=== PATIENT | female | born 1980 | race Hispanic/Latino ===

== ENCOUNTER 2019-09-30 05:18 | Emergency (ER) | payer SELFPAY ==
--- OUTSIDE RECORDS SUMMARY | 2019-09-30 05:21 | XMS REPORT | Summary of Care ---
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 Primary Care Provider Reason for Visit Reason Comments CONTROL Encounter Details Date Type Department Care Team Description 03/04/2019 Nurse Visit [facility]- Osiel Ann, FOOD PRODUCTION WORKER [address] [place] [address] Depo-Provera [place] Visit, [facility] Nurse contraceptive status [address] [facility] (Primary Dx) [place] [address] Allergies No Known Allergiesdocumented as of this encounter (statuses as of 03/04/2019) Medications Medication Sig Dispensed Refills Start Date End Date Status lisinopril 10 mg tablet Take 10 mg by 0 Active mouth daily. Hospital, Clinic, or Other Ordered Dose Route Frequency Start Date End Date Status Facility Administered Medication medroxyPROGESTERone 150 mg IM [id number] 10/16/2018 09/16/2019 Active (DEPO-PROVERA) injection 150 mgIndications: Depo-Provera contraceptive status documented as of this encounter (statuses as of 03/04/2019) Active Problems Problem Noted Date Well woman exam 10/15/2018 Abscess of Bartholin's gland 10/15/2018 Depo-Provera contraceptive status 04/17/2016 Essential hypertension 01/02/2013 Overview: ICD10 Diagnosis Term Box Covering Machine Operator Utility documented as of this encounter (statuses as of 03/04/2019) Resolved Problems Problem Noted Date Resolved Date Encounter for IUD removal 04/17/2016 10/15/2017 Screening for STDs (sexually transmitted diseases) 04/17/2016 10/15/2017 Routine gynecological examination 04/17/2016 10/15/2017 Chlamydia trachomatis infection of lower genitourinary sites 10/13/201310/15 Encounter for insertion of intrauterine contraceptive device 10/09/201310/15 Overview: Exp. 10/10/2023 Encounter for routine gynecological examination 06/26/2013 10/15/2017 Overview: ICD10 Diagnosis Term Box Covering Machine Operator Utility Other general counseling and advice for contraceptive 06/26/2013 10/09/2013 management Allergic rhinitis 06/26/2013 10/09/2013 Overview: ICD10 Diagnosis Term Box Covering Machine Operator Utility Sinus pressure 06/26/2013 10/09/2013 Proteinuria 05/29/2013 06/26/2013 Suprapubic pressure 05/29/2013 06/26/2013 Anemia of mother in , condition 05/29/2013 10/09/2013 Pelvic cramping 05/22/2013 06/26/2013 Normal delivery 05/15/2013 06/26/2013 Severe pre-eclampsia, antepartum 05/15/2013 05/29/2013 High-risk supervision 05/02/2013 05/22/2013 Other known or suspected abnormality, not elsewhere 02/12/20132012 classified, affecting management of mother, antepartum condition or complication Overview: intracranial cyst Headache 01/02/2013 04/30/2013 Overview: ICD10 Diagnosis Term Box Covering Machine Operator Utility Trichomonal vulvovaginitis 12/12/2012 04/30/2013 Overview: Treated patient and partner Immune to rubella 11/27/2012 04/30/2013 Immune to varicella 11/27/2012 04/30/2013 spontaneous labor with delivery 11/27/2012 05/29/2013 Overview: PTL starting at 20 weeks, bedrest, received IV tocolytics. Delivered at 28 weeks after PROM. Family history of congenital anomalies 11/27/2012 05/22/2013 Overview: Son has hand deformity. Genetics and detailed US Glucose tolerance test abnormal 11/03/2012 04/30/2013 Overview: 1 hr- 151, 3 hr- gtt normal. Repeat at 28 weeks Chlamydia trachomatis infection of lower genitourinary sites 11/03/201204/30 Overview: 11/27/2012 and 12/12/2012- COURTNEY-negative History of cervical dysplasia 10/31/2012 10/31/2012 Overview: Entered in error ICD10 Diagnosis Term Box Covering Machine Operator Utility Nausea & vomiting 10/31/2012 04/30/2013 Overview: May take otc vitamin b 6 50 mg bid Multiparity 10/01/2007 09/25/2012 anemia 10/01/2007 09/25/2012 Overview: ICD10 Diagnosis Term Box Covering Machine Operator Utility Normal delivery 09/30/2007 09/25/2012 Proteinuria 09/29/2007 09/25/2012 Anemia of mother, with delivery, with complication 11/01/2006 Overview: asymptomatic ICD10 Diagnosis Term Box Covering Machine Operator Utility First degree perineal laceration during delivery 10/31/2006 09/25/2012 Overview: ICD10 Diagnosis Term Box Covering Machine Operator Utility OTHER DIAGNOSIS - PLEASE ANNOTATE. 10/30/2006 10/31/2006 Overview: labor Dehydration 05/11/2006 10/30/2006 documented as of this encounter (statuses as of 03/04/2019) Immunizations Name Administration Dates Next Due Influenza Virus Vaccine 03/26/2013 Rubella 03/21/2007 Td 07/08/1998 Tdap 06/26/2013, 04/21/2013 (Deferred: Medical Deferment Parent Refused - Pt left clinic without vaccine) documented as of this encounter Social History Tobacco Use Types Packs/Day Years Used Date Never Smoker Smokeless Tobacco: Never Used Alcohol Use Drinks/Week oz/Week Comments No 0 Standard drinks or equivalent 0.0 Sex Assigned at Date Recorded Not on file Job Start Date Occupation Industry Not on file Not on file Not on file Travel History Travel Start Travel End No recent travel history available. documented as of this encounter Last Filed Vital Signs Vital Sign Reading Time Taken Comments Blood Pressure 133/82 03/04/2019 8:35 AM CDT Pulse 69 03/04/2019 8:35 AM CDT Temperature 36.2 C (97.1 F) 03/04/2019 8:35 AM CDT Respiratory Rate 16 03/04/2019 8:35 AM CDT Oxygen Saturation - - Inhaled Oxygen Concentration - - Weight 58.3 kg (128 lb 8 oz) 03/04/2019 8:35 AM CDT Height 165.1 cm (5' 5") 03/04/2019 8:35 AM CDT Body Mass Index 21.38 03/04/2019 8:35 AM CDT documented in this encounter Patient Instructions Patient InstructionsAdán De Guzman RN - 03/04/2019 9:00 AM CDT Medroxyprogesterone injection [Contraceptive] Brand Names: Depo-Provera, Depo-subQ Provera 104 Qu es aliza medicamento? Las inyecciones anticonceptivas de MEDROXIPROGESTERONA previenen el embarazo. Las inyecciones le brindarn control de la natalidad damon 3 meses. La Depo- subQ Provera 104 se utiliza tambin para tratar el dolor relacionado con endometriosis. Circular Clerk matteo utilizar aliza medicamento? Depo-Provera Contraceptive inyectable se administra en un msculo. Depo-subQ Provera 104 inyectablese administra por va subcutnea. Estas inyecciones las administra un profesional de la isatu. No debe estar embarazada antes de recibir herrera inyeccin. Esta inyeccin generalmente se aplica durantelos primeros 5 stallings del inicio de un periodo menstrual o 6 semanas despus de misha tenido un beb. Hable con kaufman pediatra para informarse acerca del uso de aliza medicamento en ni os. Puede requerir atencin especial. Estas inyecciones quiñones sido usadas en ni as que quiñones empezado a tener perodos menstruales. Qu efectos secundarios puedo tener al utilizar aliza medicamento? Efectos secundarios que debe informar a kaufman mdico o a kaufman profesional de la isatu driver pronto mercy sea posible: reacciones alrgicas mercy erupcin cutnea, picazn o urticarias, hinchazn de la yordan, labios o lengua secreciones o sensibilidad de las mamas problemas respiratorios cambios en la visin depresin sensacin de desmayos o mareos, cadas fiebre dolor en el abdomen, pecho, entrepierna o piernas problemas de coordinacin, del habla, al caminar cansancio o debilidad inusual color amarillento de los ojos o la piel Efectos secundarios que, por lo general, no requieren atencin mdica (debe informarlos a mdico o a kaufman profesional de la isatu si persisten o si son molestos): cne retencin de lquidos e hinchazn dolor de violeta perodos menstruales irregulares, manchando o ausencia de perodos menstruales dolor, picazn o reaccin cutnea temporal en el lugar de la inyeccin aumento de peso Qu puede interactuar con aliza medicamento? No tome esta medicina con ninguno de los siguientes medicamentos: bosentano Esta medicina tambin puede interactuar con los siguientes medicamentos: aminoglutethimide antibiticos o medicamentos para infecciones, especialmente rifampicina, rifabutina, rifapentinay griseofulvina aprepitant barbitricos, tales mercy el fenobarbital o primidona bexaroteno carbamazepina medicamentos para convulsiones, tales mercy etotona, felbamato, oxcarbazepina, fenitona, topiramato modafinilo hierba de [place] Qu sucede si me olvido de herrera dosis? Trate de no olvidar ninguna dosis. Para mantener el control de natalidad necesitar herrera inyeccin cada 3 meses. Si no puede asistir a herrera bean, comun quese con kaufman profesional de la isatu para que charlene cambie. Si espera ms de 13 semanas entre las inyecciones anticonceptivos de Depo-Provera o msde 14 semanas entre inyecciones anticonceptivos de Depo-subQ Provera 104, puede quedarse embarazada.Si no puede asistir a kaufman bean utilice otro mtodo anticonceptivo. Andriy vez deba hacerse herrera prueba de embarazo antes de recibir otra inyeccin. Dnde matteo guardar mi medicina? No se aplica en aliza leonard. Un profesional de la isatu le administrar las inyecciones. Qu le matteo informar a mi profesional de la isatu antes de wendy laiza medicamento? Necesita saber si usted presenta alguno de los siguientes problemas o situaciones: si consume alcohol con frecuencia asma enfermedad vascular o antecedente de cogulos sanguneos en los pulmones o las piernas enfermedad de los huesos, mercy osteoporosis cncer de mama diabetes trastornos de la alimentacin (anorexia nerviosa o bulimia) aimee presin sangunea infecciones por VIH o SIDA enfermedad renal enfermedad heptica depresin mental migraa convulsiones derrame cerebral fuma tabaco sangrado vaginal herrera reaccin alrgica o inusual a la medroxiprogesterona, otras hormonas, otros medicamentos, alimentos, colorantes o conservantes si est embarazada o buscando quedar embarazada si est amamantando a un beb A qu matteo estar atento al usar aliza medicamento? Aliza medicamento no la protege de la infeccin por VIH (SIDA) ni de otras enfermedades de transmisin sexual. El uso de aliza producto puede provocar herrera prdida de calcio de corrine huesos. La prdida de calcio puede provocar huesos dbiles (osteoporosis). Slo use aliza producto damon ms de 2 aos si otras formas de anticonceptivos no son apropiados para usted. Mientre ms tiempo use aliza producto para el control de la natalidad, tendr ms riesgo de padecer de huesos dbiles. Consulte a kaufman profesional de la isatu acerca de wood pattern maker puede mantener los huesos jo. Puede experimentar un cambio en el patrn de sangrado o periodos irregulares. Muchas mujeres lacy de tener periodos mientras usan aliza medicamento. Si recibe corrine inyecciones a tiempo, la posibilidad de quedarse embarazada es muy baja. Si ernesto que podr estar embarazada, visite a kaufman profesional de la isatu lo antes posible. Si desea quedar embarazada dentro del prximo ao, informe a kaufman profesional de la isatu. El efectode aliza medicamento puede perdurar damon mucho tiempo despus de recibir kaufman ltima inyeccin. [id number] [employer] [place] [address]. Todos los derechos reservados. Esta informacin no pretende sustituir la atencin mdica profesional. Slo kaufman mdico puede diagnosticar y tratar un problema de isatu. documented in this encounter Progress Notes Adán De Guzman RN - 03/04/2019 9:00 AM CDT38 year old female has been identified by and name. Verbal consent has been obtained by patientto have an injection of Depo Provera, as ordered by the provider. Date of last Depo Provera injection: 12/10/2018 Last WWE: 10/15/2018 Encounter Diagnosis: v25.49 The site was cleaned with an alcohol swab and given intramuscularly (IM) in the left deltoid. A band aid dressing was then applied to the injection site. The patient tolerated the procedure well , norash, swelling or reaction noted. Advised patient on Calcium intake 500-1200 mg daily. ED warnings given. Patient to return to clinic in 12 weeks for next Depo. Patient verbalized understanding. ADÁN DE GUZMAN RN 03/04/2019 9:17 AM documented in this encounter Plan of Treatment Date Type Specialty Care Team Description 03/12/2019 Office Visit [facility] 2, [facility] Fc Room 03/12/2019 Office Visit [facility] Pgy3 05/27/2019 Nurse Visit [facility] Visit, [facility] Nurse Health Maintenance Due Date Last Done Comments VARICELLA VACCINES (1 of 2 1993 - 13+ 2-dose series) INFLUENZA VACCINE (#1) 2019 03/26/2013 PAP SMEAR 04/17/2019 04/17/2016, 10/24/2012, 09/25/2012, Additional history exists DTaP,Tdap,and Td Vaccines 06/26/2023 06/26/2013, 07/08/1998 (3 - Td) PNEUMOCOCCAL 0-64 YEARS Aged Out No longer eligible COMBINED SERIES based on patient's age to complete this topic documented as of this encounter Results Not on filedocumented in this encounter Visit Diagnoses Diagnosis Depo-Provera contraceptive status - Primary Surveillance of other previously prescribed contraceptive method documented in this encounter Administered Medications Medication Order MAR Action Action Date Dose Rate Site medroxyPROGESTERone Given 03/04/2019 8:40 150 mg Left Deltoid-IM (DEPO-PROVERA) injection 150 AM CDT mg 150 mg, Intramuscular, [id number], 4 doses, First dose on Delores 10/16/18 at 0000, Last dose on Delores 06/25/19 at 0000, Routine Given 12/10/2018 9:14 AM CDT 150 mg Right Deltoid-IM documented in this encounter Insurance Payer Benefit Plan / Subscriber ID Effective Dates Phone Address Type Group [facility] [employer]ANNING [id number] 2018-[employer] [place] [id number] [place] [address] documented as of this encounter Advance Directives Type Date Recorded 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
--- OUTSIDE RECORDS SUMMARY | 2019-09-30 05:21 | XMS REPORT | Summary of Care ---
:1980 Author Organization [facility] Address [address] [place] [address] Care Team Providers Name Role Phone Osiel Ann COREY Primary Care Provider Reason for Visit Reason Comments Abscess Encounter Details Date Type Department Care Team Description 03/12/2019 Office Visit [facility] Naveed Daley MD [address] [place] [address] Groin abscess [facility] Resident (Primary Dx) [facility] [address] [facility], [address] [place] [address] Allergies No Known Allergiesdocumented as of this encounter (statuses as of 03/12/2019) Medications Medication Sig Dispensed Refills Start Date End Date Status lisinopril 10 mg tablet Take 10 mg by 0 Active mouth daily. Hospital, Clinic, or Other Ordered Dose Route Frequency Start Date End Date Status Facility Administered Medication medroxyPROGESTERone 150 mg IM [id number] 10/16/2018 09/16/2019 Active (DEPO-PROVERA) injection 150 mgIndications: Depo-Provera contraceptive status documented as of this encounter (statuses as of 03/12/2019) Active Problems Problem Noted Date Well woman exam 10/15/2018 Abscess of Bartholin's gland 10/15/2018 Depo-Provera contraceptive status 04/17/2016 Essential hypertension 01/02/2013 Overview: ICD10 Diagnosis Term Elevator Runner Utility documented as of this encounter (statuses as of 03/12/2019) Resolved Problems Problem Noted Date Resolved Date Encounter for IUD removal 04/17/2016 10/15/2017 Screening for STDs (sexually transmitted diseases) 04/17/2016 10/15/2017 Routine gynecological examination 04/17/2016 10/15/2017 Chlamydia trachomatis infection of lower genitourinary sites 10/13/201310/15 Encounter for insertion of intrauterine contraceptive device 10/09/201310/15 Overview: Exp. 10/10/2023 Encounter for routine gynecological examination 06/26/2013 10/15/2017 Overview: ICD10 Diagnosis Term Elevator Runner Utility Other general counseling and advice for contraceptive 06/26/2013 10/09/2013 management Allergic rhinitis 06/26/2013 10/09/2013 Overview: ICD10 Diagnosis Term Elevator Runner Utility Sinus pressure 06/26/2013 10/09/2013 Proteinuria 05/29/2013 [...] Headache 01/02/2013 04/30/2013 Overview: ICD10 Diagnosis Term Elevator Runner Utility Trichomonal vulvovaginitis 12/12/2012 04/30/2013 Overview: Treated [...] Overview: Entered in error ICD10 Diagnosis Term Elevator Runner Utility Nausea & vomiting 10/31/2012 04/30/2013 Overview: May take otc vitamin b 6 50 mg bid Multiparity 10/01/2007 09/25/2012 anemia 10/01/2007 09/25/2012 Overview: ICD10 Diagnosis Term Elevator Runner Utility Normal delivery 09/30/2007 09/25/2012 Proteinuria 09/29/2007 09/25/2012 Anemia of mother, with delivery, with complication 11/01/2006 Overview: asymptomatic ICD10 Diagnosis Term Elevator Runner Utility First degree perineal laceration during delivery 10/31/2006 09/25/2012 Overview: ICD10 Diagnosis Term Elevator Runner Utility OTHER DIAGNOSIS - PLEASE ANNOTATE. 10/30/2006 10/31/2006 Overview: labor Dehydration 05/11/2006 10/30/2006 documented as of this encounter (statuses as of 03/12/2019) Immunizations Name Administration Dates Next Due Influenza [...] Sign Reading Time Taken Comments Blood Pressure 102/54 03/12/2019 1:13 PM CDT Pulse 72 03/12/2019 1:13 PM CDT Temperature 36.8 C (98.3 F) 03/12/2019 1:13 PM CDT Respiratory Rate 18 03/12/2019 1:13 PM CDT Oxygen Saturation - - Inhaled Oxygen Concentration - - Weight 58.3 kg (128 lb 8 oz) 03/12/2019 1:13 PM CDT Height 165.1 cm (5' 5") 03/12/2019 1:13 PM CDT Body Mass Index 21.38 03/12/2019 1:13 PM CDT documented in this encounter Progress Notes Krystin Alas MD - 03/12/2019 2:00 PM CDT Chief complaint: Chief Complaint Patient presents with Abscess Lisbet Ma is a 38 year old female who presents with a left upper inner thigh boil. She states she has been seen by other practitioners and was receiving antibiotics for the boil. She reports that after the antibiotics the boil returns. She sometimes reports blood coming from the abscess at times. She states the boil always returns. She denies fevers and chills and has no other complaints. She reports pain from the abscess that comes and goes. She desires the abscess to be drainedat this clinic visit. Histories OB History Para Term AB Living 4 3 2 1 4 SAB TAB Ectopic Multiple Live Births 4 # Outcome Date GA Lbr Erick/2nd Weight Sex Delivery Anes PTL Lv 4 05/15/13 M N SEAN Comments: System Generated. Please review and update details. 3 Term 09/29/07 37w0d 07:00 6 lb 3 oz (2.807 kg) M NORMAL SPONT EPIDURAL SEAN 2 Term 10/31/06 38w0d 06:00 6 lb 8 oz (2.948 kg) M NORMAL SPONT LOCAL SEAN 1 03/23/00 28w0d 24:00 4 lb 5 oz (1.956 kg) M NORMAL SPONT LOCAL SEAN Past Medical History: Diagnosis Date Anemia Chlamydia 2005 Chlamydia 2012 Chlamydia 2013 Cyst (solitary) of breast, right removal Gastritis Unspecified essential hypertension 01/02/2013 Family History Problem Relation Age of Onset High cholesterol Mother Hypertension Mother Neurological Mother Arthritis Father Diabetes Maternal Aunt Diabetes Maternal Grandmother Cancer Paternal Grandmother Cancer Paternal Grandfather defects Son Asthma NoFHx Breast Cancer NoFHx Colon Cancer NoFHx Ovarian Cancer NoFHx Depression NoFHx Uterine Cancer NoFHx Genetic NoFHx Heart NoFHx Mental retardation NoFHx Psychiatry NoFHx Other - see comments NoFHx Osteoporosis NoFHx Family Status Relation Name Status Mo (Not Specified) Fa (Not Specified) MAunt (Not Specified) MGMo (Not Specified) PGMo (Not Specified) PGFa (Not Specified) Son (Not Specified) NoFHx (Not Specified) Past Surgical History: Procedure Laterality Date NON-STRESS TEST 05/11/2013 NON-STRESS TEST 05/12/2013 NON-STRESS TEST 05/13/2013 NON-STRESS TEST 05/14/2013 Social History Socioeconomic History Marital status: Spouse name: Not on file Number of children: Not on file Years of education: Not on file Highest education level: Not on file Occupational History Not on file Social Needs Financial resource strain: Not on file Food insecurity: Worry: Not on file Inability: Not on file Transportation needs: Medical: Not on file Non-medical: Not on file Tobacco Use Smoking status: Never Smoker Smokeless tobacco: Never Used Substance and Sexual Activity Alcohol use: No Alcohol/week: 0.0 oz Drug use: No Sexual activity: Yes Partners: Male control/protection: Injection Comment: last sexual intercourse 10/10/2018 Lifestyle Physical activity: Days per week: Not on file Minutes per session: Not on file Stress: Not on file Relationships Social connections: Talks on phone: Not on file Gets together: Not on file Attends alevism service: Not on file Active member of club or organization: Not on file Attends meetings of clubs or organizations: Not on file Relationship status: Not on file Intimate partner violence: Fear of current or ex partner: Not on file Emotionally abused: Not on file Physically abused: Not on file Forced sexual activity: Not on file Other Topics Concern Service Not Asked Blood Transfusions No Caffeine Concern Not Asked Occupational Exposure Not Asked Hobby Hazards Not Asked Sleep Concern Not Asked Stress Concern Not Asked Weight Concern Not Asked Special Diet Not Asked Back Care Not Asked Exercise Not Asked Bike Helmet Not Asked Seat Belt Not Asked Self-Exams Not Asked Social History Narrative Denies domestic violence or abuse Social History Substance and Sexual Activity Sexual Activity Yes Partners: Male control/protection: Injection Comment: last sexual intercourse 10/10/2018 Labs No new labs Radiology No new radiology. Allergies Lisbet has No Known Allergies. Medications Lisbet has a current medication list which includes the following prescription(s) : lisinopril, and the following Facility-Administered Medications: medroxyprogesterone. Review of Systems Constitutional: Negative for chills, fatigue and fever. Respiratory: Negative for cough and shortness of breath. Cardiovascular: Negative for chest pain and palpitations. Gastrointestinal: Negative for abdominal pain, diarrhea, nausea and vomiting. Genitourinary: Negative for dysuria, frequency, flank pain, vaginal bleeding, vaginal discharge and pelvic pain. Musculoskeletal: Negative for back pain. Skin: 2 cm abscess/boil seen at the left inner upper thigh. Fluctuant was palpated. Tenderness to palpation, appears erythematous Neurological: Negative for dizziness, light-headedness and headaches. BP 102/54 | Pulse 72 | Temp 36.8 C (98.3 F) (Oral) | Resp 18 | Ht 5' 5" (1.651 m) | Wt 128 lb 8 oz (58.3 kg) | LMP 03/01/2019 (Approximate) | BMI 21.38 kg/m Pregravid BMI: Could not be calculated Physical Exam Vitals reviewed. Constitutional: She appears well-developed, well-nourished and well-groomed. Her body habitus is normal. Cardiovascular: Regular rate and rhythm. No murmur auscultated. Pulmonary/Chest: Breath sounds clear to auscultation. Normal inspiratory effort. Abdominal: Abdomen is soft. No mass palpated. No tenderness present. There is no rigidity and no guarding. Neuro/Psychiatric: She has a normal mood and affect. Skin: Lesion (2 cm abscess/boil seen at the left inner upper thigh. Fluctuant was palpated. Tenderness to palpation, appears erythematous) present. Lymphadenopathy: No inguinal adenopathy present. External genitalia: Normal external genitalia appropriate for age. Normal hair distribution. No labial lesion. Urethral meatus: Normal urethral meatus size, location and no lesion. No prolapse present. Normal urethral meatus Vagina:Normal vagina. No lesion inspected. Normal estrogen effect. Normal support. No abnormal vaginal discharge found. Procedure Note Time out performed by myself and identified by Name and 2cm abscess/boil was present in the upper inner thigh Fluctuance was palpated 4cc lidocaine was injected around the site Punch biopsy was used to remove the top layer of epidermis to allow for drainage of the abscess The epidermis was sent to pathology The abscess was then palpated to remove the pus from the area The area was hemostatic after holding pressure The wound is to be irrigated regularly and will heal on its own Bleeding precautions were given to the patient Assessment/Plan Groin abscess (primary encounter diagnosis) Comment: patient had previously received antibiotics that did not resolve the boil The lesions was lanced and pus was drained in clinic Plan: SURGICAL PATHOLOGY EXAM Return to clinic as needed or if abscess returns This visit did not involve counseling and coordination that comprised more than 50% of the visit time. Krystin Alas MD 03/12/2019 documented in this encounter Plan of Treatment Date Type Specialty Care Team Description 05/27/2019 Nurse Visit OB Satellites Visit, [facility] Nurse Name Type Priority Associated Diagnoses Date/Time SURGICAL PATHOLOGY EXAM LAB Routine Groin abscess 03/12/2019 2:34 PM CDT Health Maintenance Due Date Last Done Comments [...] filedocumented in this encounter Visit Diagnoses Diagnosis Groin abscess - Primary Cellulitis and abscess of trunk documented in this encounter Insurance Payer Benefit Plan / Subscriber ID Effective Dates Phone Address Type Group [facility] FAMILY FAMILY PLANNING [id number] 2019-Harjeet DECKER Agency [employer]ANN[employer] ED[employer] 0-100% [id number] [place] [address] documented as of this encounter Advance Directives Type Date Recorded Patient Data Entry Assistant Explanation Advance Directives and Living Will Power of Supervisor Roving Department Name Relationship Healthcare Agent Relationship Communication Sunni Ford Sibling Primary healthcare agent
--- OUTSIDE RECORDS SUMMARY | 2019-09-30 05:21 | XMS REPORT ---
:1980 Author Organization [facility] Address [address] [place] [address] Dr. Cabrales [address] [place] [address] Care Team Providers Name Role Phone Unavailable Unavailable Unavailable Problems This patient has no known problems. Allergies, Adverse Reactions, Alerts This patient has no known allergies or adverse reactions. Medications This patient has no known medications.
--- OUTSIDE RECORDS SUMMARY | 2019-09-30 05:21 | XMS REPORT | Summary of Care ---
:1980 Author Organization [facility] Address [address] [place] [address] Care Team Providers Name Role Phone Osiel Ann COREY Primary Care Provider Reason for Visit Reason Comments Abscess Encounter Details Date Type Department Care Team Description 03/12/2019 Office Visit [facility] Naveed Daley MD [address] [place] [address] Groin abscess [facility] Resident (Primary Dx) [facility] [address] [facility], [address] [place] [address] Allergies No Known Allergiesdocumented as of this encounter (statuses as of 03/12/2019) Medications Medication Sig Dispensed Refills Start Date End Date Status lisinopril 10 mg tablet Take 10 mg by 0 Active mouth daily. Hospital, Clinic, or Other Ordered Dose Route Frequency Start Date End Date Status Facility Administered Medication medroxyPROGESTERone 150 mg IM [id number] 10/16/2018 09/16/2019 Active (DEPO-PROVERA) injection 150 mgIndications: Depo-Provera contraceptive status documented as of this encounter (statuses as of 03/12/2019) Active Problems Problem Noted Date Well woman exam 10/15/2018 Abscess of Bartholin's gland 10/15/2018 Depo-Provera contraceptive status 04/17/2016 Essential hypertension 01/02/2013 Overview: ICD10 Diagnosis Term Sales Recruiting Coordinator Utility documented as of this encounter (statuses [...] examination 06/26/2013 10/15/2017 Overview: ICD10 Diagnosis Term Sales Recruiting Coordinator Utility Other general counseling and advice for contraceptive 06/26/2013 10/09/2013 management Allergic rhinitis 06/26/2013 10/09/2013 Overview: ICD10 Diagnosis Term Sales Recruiting Coordinator Utility Sinus pressure 06/26/2013 10/09/2013 Proteinuria 05/29/2013 [...] Headache 01/02/2013 04/30/2013 Overview: ICD10 Diagnosis Term Sales Recruiting Coordinator Utility Trichomonal vulvovaginitis 12/12/2012 04/30/2013 Overview: Treated [...] Overview: Entered in error ICD10 Diagnosis Term Sales Recruiting Coordinator Utility Nausea & vomiting 10/31/2012 04/30/2013 Overview: May take otc vitamin b 6 50 mg bid Multiparity 10/01/2007 09/25/2012 anemia 10/01/2007 09/25/2012 Overview: ICD10 Diagnosis Term Sales Recruiting Coordinator Utility Normal delivery 09/30/2007 09/25/2012 Proteinuria 09/29/2007 09/25/2012 Anemia of mother, with delivery, with complication 11/01/2006 Overview: asymptomatic ICD10 Diagnosis Term Sales Recruiting Coordinator Utility First degree perineal laceration during delivery 10/31/2006 09/25/2012 Overview: ICD10 Diagnosis Term Sales Recruiting Coordinator Utility OTHER DIAGNOSIS - PLEASE ANNOTATE. 10/30/2006 [...] file Gets together: Not on file Attends church service: Not on file Active member of [...] Description 05/27/2019 Nurse Visit OB Satellites Visit, [facility] Nurse Name Type Priority Associated Diagnoses Date/Time [...] ID Effective Dates Phone Address Type Group [facility] FAMILY FAMILY PLANNING [id number] 2019-Harjeet DECKER Agency [employer] 0-100% [id number] [place] [address] documented as of this encounter Advance Directives Type Date Recorded Patient Business Director Explanation Advance Directives and Living Will Power of Quiller Operator Name Relationship Healthcare Agent Relationship Communication Sunni Ford Sibling Primary healthcare agent
--- OUTSIDE RECORDS SUMMARY | 2019-09-30 05:21 | XMS REPORT | Summary of Care ---
:1980 Author Organization [facility] Address [address] [place] [address] Care Team Providers Name Role Phone Osiel Ann METHODS ANALYST DATA PROCESSING Primary Care Provider Encounter Details Date Type Department Care Team Description 03/12/2019 Orders Only [facility] Doctor Unassigned, No [address] [facility] [place] [address] [address] [place] [address] Allergies No Known Allergiesdocumented as of this encounter (statuses as of 03/13/2019) Medications Medication Sig Dispensed Refills Start Date End Date Status lisinopril 10 mg tablet Take 10 mg by 0 Active mouth daily. Hospital, Clinic, or Other Ordered Dose Route Frequency Start Date End Date Status Facility Administered Medication medroxyPROGESTERone 150 mg IM [id number] 10/16/2018 09/16/2019 Active (DEPO-PROVERA) injection 150 mgIndications: Depo-Provera contraceptive status documented as of this encounter (statuses as of 03/13/2019) Active Problems Problem Noted Date Well woman exam 10/15/2018 Abscess of Bartholin's gland 10/15/2018 Depo-Provera contraceptive status 04/17/2016 Essential hypertension 01/02/2013 Overview: ICD10 Diagnosis Term Slitter Scorer Cut Off Operator Utility documented as of this encounter (statuses as of 03/13/2019) Resolved Problems Problem Noted Date Resolved Date Encounter for IUD removal 04/17/2016 10/15/2017 Screening for STDs (sexually transmitted diseases) 04/17/2016 10/15/2017 Routine gynecological examination 04/17/2016 10/15/2017 Chlamydia trachomatis infection of lower genitourinary sites 10/13/201310/15 Encounter for insertion of intrauterine contraceptive device 10/09/201310/15 Overview: Exp. 10/10/2023 Encounter for routine gynecological examination 06/26/2013 10/15/2017 Overview: ICD10 Diagnosis Term Slitter Scorer Cut Off Operator Utility Other general counseling and advice for contraceptive 06/26/2013 10/09/2013 management Allergic rhinitis 06/26/2013 10/09/2013 Overview: ICD10 Diagnosis Term Slitter Scorer Cut Off Operator Utility Sinus pressure 06/26/2013 10/09/2013 Proteinuria [...] Headache 01/02/2013 04/30/2013 Overview: ICD10 Diagnosis Term Slitter Scorer Cut Off Operator Utility Trichomonal vulvovaginitis 12/12/2012 04/30/2013 Overview: [...] Overview: Entered in error ICD10 Diagnosis Term Slitter Scorer Cut Off Operator Utility Nausea & vomiting 10/31/2012 04/30/2013 Overview: May take otc vitamin b 6 50 mg bid Multiparity 10/01/2007 09/25/2012 anemia 10/01/2007 09/25/2012 Overview: ICD10 Diagnosis Term Slitter Scorer Cut Off Operator Utility Normal delivery 09/30/2007 09/25/2012 Proteinuria 09/29/2007 09/25/2012 Anemia of mother, with delivery, with complication 11/01/2006 Overview: asymptomatic ICD10 Diagnosis Term Slitter Scorer Cut Off Operator Utility First degree perineal laceration during delivery 10/31/2006 09/25/2012 Overview: ICD10 Diagnosis Term Slitter Scorer Cut Off Operator Utility OTHER DIAGNOSIS - PLEASE ANNOTATE. 10/30/2006 10/31/2006 Overview: labor Dehydration 05/11/2006 10/30/2006 documented as of this encounter (statuses as of 03/13/2019) Immunizations Name Administration Dates Next Due Influenza [...] of this encounter Last Filed Vital Signs Not on filedocumented in this encounter Plan of Treatment Date Type Specialty Care Team Description 05/27/2019 Nurse Visit OB Satellites Visit, [facility] Nurse Health Maintenance Due Date Last Done [...] this topic documented as of this encounter Procedures Procedure Name Priority Date/Time Associated Diagnosis Comments BCCS-RELATED Routine 03/12/2019 12:01 AM DOCUMENTATION CDT documented in this encounter Results Not on filedocumented in this encounter Insurance Payer Benefit Plan / Subscriber ID Effective Dates Phone Address Type Group [facility] FAMILY FAMILY PLANNING [id number] 2019-Harjeet DECKER Agency PLANN[employer] ED[employer]ARDO 0-100% [id number] [place] [address] documented as of this encounter Advance Directives Type Date Recorded Patient Autopsy Assistant Explanation Advance Directives and Living Will Power of Nursing Clinical Director Name Relationship Healthcare Agent Relationship Communication Sunni Ford Sibling Primary healthcare agent
--- OUTSIDE RECORDS SUMMARY | 2019-09-30 05:22 | XMS REPORT | Summary of Care ---
:1980 Author Organization [facility] Address [address] [place] [id number] Care Team Providers Name Role Phone Osiel Ann ARMORED CAR MESSENGER Primary Care Provider Reason for Visit Reason Comments NURSE VISIT Depo Encounter Details Date Type Department Care Team Description 08/18/2019 Nurse Visit [facility]- Osiel Ann, ARMORED CAR MESSENGER [address] [place] [address] Encounter for [place] Visit, [facility] Nurse Depo-Provera [address] [facility] contraception ([place], [place]x) [id number] Allergies No Known Allergiesdocumented as of this encounter (statuses as of 08/18/2019) Medications Medication Sig Dispensed Refills Start Date End Date Status lisinopril 10 mg tablet Take 10 mg by 0 Active mouth daily. documented as of this encounter (statuses as of 08/18/2019) Active Problems Problem Noted Date Abscess of groin, left 05/17/2019 Well woman exam 10/15/2018 Abscess of Bartholin's gland 10/15/2018 Depo-Provera contraceptive status 04/17/2016 Essential hypertension 01/02/2013 Overview: ICD10 Diagnosis Term Mirror Fabrication Supervisor Utility documented as of this encounter (statuses as of 08/18/2019) Resolved Problems Problem Noted Date Resolved Date Encounter for IUD removal 04/17/2016 10/15/2017 Screening for STDs (sexually transmitted diseases) 04/17/2016 10/15/2017 Routine gynecological examination 04/17/2016 10/15/2017 Chlamydia trachomatis infection of lower genitourinary sites 10/13/201310/15 Encounter for insertion of intrauterine contraceptive device 10/09/201310/15 Overview: Exp. 10/10/2023 Encounter for routine gynecological examination 06/26/2013 10/15/2017 Overview: ICD10 Diagnosis Term Mirror Fabrication Supervisor Utility Other general counseling and advice for contraceptive 06/26/2013 10/09/2013 management Allergic rhinitis 06/26/2013 10/09/2013 Overview: ICD10 Diagnosis Term Mirror Fabrication Supervisor Utility Sinus pressure 06/26/2013 10/09/2013 Proteinuria 05/29/2013 [...] Headache 01/02/2013 04/30/2013 Overview: ICD10 Diagnosis Term Mirror Fabrication Supervisor Utility Trichomonal vulvovaginitis 12/12/2012 04/30/2013 Overview: Treated [...] Overview: Entered in error ICD10 Diagnosis Term Mirror Fabrication Supervisor Utility Nausea & vomiting 10/31/2012 04/30/2013 Overview: May take otc vitamin b 6 50 mg bid Multiparity 10/01/2007 09/25/2012 anemia 10/01/2007 09/25/2012 Overview: ICD10 Diagnosis Term Mirror Fabrication Supervisor Utility Normal delivery 09/30/2007 09/25/2012 Proteinuria 09/29/2007 09/25/2012 Anemia of mother, with delivery, with complication 11/01/2006 Overview: asymptomatic ICD10 Diagnosis Term Mirror Fabrication Supervisor Utility First degree perineal laceration during delivery 10/31/2006 09/25/2012 Overview: ICD10 Diagnosis Term Mirror Fabrication Supervisor Utility OTHER DIAGNOSIS - PLEASE ANNOTATE. 10/30/2006 10/31/2006 Overview: labor Dehydration 05/11/2006 10/30/2006 documented as of this encounter (statuses as of 08/18/2019) Immunizations Name Administration Dates Next Due Influenza Virus Vaccine 03/26/2013 Influenza Virus Vaccine Quad .5 mL 05/27/2019 IM 6+ MO Rubella 03/21/2007 Td 07/08/1998 Tdap 06/26/2013, 04/21/2013 [...] Sign Reading Time Taken Comments Blood Pressure 139/80 08/18/2019 8:50 AM INSOLE BOTTOM FILLER Pulse 84 08/18/2019 8:50 AM INSOLE BOTTOM FILLER Temperature 36.6 C (97.8 F) 08/18/2019 8:50 AM INSOLE BOTTOM FILLER Respiratory Rate 16 08/18/2019 8:50 AM INSOLE BOTTOM FILLER Oxygen Saturation - - Inhaled Oxygen Concentration - - Weight 61.7 kg (136 lb 1 oz) 08/18/2019 8:50 AM INSOLE BOTTOM FILLER Height 165.1 cm (5' 5") 08/18/2019 8:50 AM INSOLE BOTTOM FILLER Body Mass Index 22.64 08/18/2019 8:50 AM INSOLE BOTTOM FILLER documented in this encounter Patient Instructions Patient InstructionsRubio, Magda, SPOT WELDER LINE - 08/18/2019 8:45 AM INSOLE BOTTOM FILLER Medroxyprogesterone injection [Contraceptive] Brand Names: Depo-Provera, Depo-subQ Provera 104 Qu es aliza medicamento? Las inyecciones anticonceptivas de MEDROXIPROGESTERONA previenen el embarazo. Las inyecciones le brindarn control de la natalidad damon 3 meses. La Depo- subQ Provera 104 se utiliza tambin para tratar el dolor relacionado con endometriosis. Assignment Officer matteo utilizar aliza medicamento? Depo-Provera Contraceptive inyectable [...] felbamato, oxcarbazepina, fenitona, topiramato modafinilo hierba de Skyla Qu sucede si me olvido de herrera [...] mi profesional de la isatu antes de ewndy aliza medicamento? Necesita saber si usted presenta alguno [...] kaufman profesional de la isatu acerca de gelatin plant supervisor puede mantener los huesos jo. Puede experimentar [...] tiempo despus de recibir kaufman ltima inyeccin. [id number] [employer] [place] [address]. Todos los derechos reservados. Esta informacin no pretende sustituir la atencin mdica profesional. Slo kaufman mdico puede diagnosticar y tratar un problema de isatu. LE BOTTOM FILLER documented in this encounter Progress Notes Zoraida Panda RN - 08/18/2019 8:45 AM CST38 year old female has been identified by and name. Verbal consent has been obtained by patientto have an injection of Depo Provera, as ordered by the provider. Date of last Depo Provera injection: 03/04/2019 Last WWE: 10/15/2018 Encounter Diagnosis: v25.49 The site was cleaned with an alcohol swab and given intramuscularly (IM) in the left deltoid. A band aid dressing was then applied to the injection site. The patient tolerated the procedure well . Advised patient on Calcium intake 500-1200 mg daily. ED warnings given. Patient to return to clinic in 12 weeks for next Depo/wwe. Patient verbalized understanding. documented in this encounter Plan of Treatment Date Type Specialty Care Team Description 11/10/2019 Office Visit [facility] Osiel Ann, ARMORED CAR MESSENGER [address] [place] [address] [phone] Health Maintenance Due Date Last Done Comments PAP SMEAR 04/17/2019 04/17/2016, 10/24/2012, 09/25/2012, Additional history exists VARICELLA VACCINES (1 of 2 05/27/2020 Postponed from - 2-dose childhood series) 1981 (Insurance / Financial) DTaP,Tdap,and Td Vaccines 06/26/2023 06/26/2013, 07/08/1998 (3 - Td) INFLUENZA VACCINE Completed 05/27/2019, 03/26/2013 PNEUMOCOCCAL 0-64 YEARS Aged Out No longer eligible COMBINED SERIES based on patient's age to complete this topic documented as of this encounter Results Not on filedocumented in this encounter Visit Diagnoses Diagnosis Encounter for Depo-Provera contraception - Primary Surveillance of other previously prescribed contraceptive method documented in this encounter Administered Medications Medication Order MAR Action Action Date Dose Rate Site medroxyPROGESTERone Given 08/18/2019 9:01 150 mg Left Deltoid-IM (DEPO-PROVERA) injection 150 AM INSOLE BOTTOM FILLER mg 150 mg, Intramuscular, [id number], 4 doses, First dose on Delores 10/16/18 at 0000, Last dose on Delores 06/25/19 at 0000, Routine Given 05/27/2019 9:11 AM INSOLE BOTTOM FILLER 150 mg Right Deltoid-IM Given 03/04/2019 8:40 AM CDT 150 mg Left Deltoid-IM documented in this encounter Insurance Payer Benefit Plan / Subscriber ID Effective Dates Phone Address Type Group [facility] [employer] [id number] 2019-Harjeet DECKER Agency [employer]ANN[employer] ED[employer]ARDO 0-100% [id number] [place] [address] documented as of this encounter Advance Directives Type Date Recorded Patient Channel Marketing Manager Explanation Advance Directives and Living Will Power of Radial Drill Operator For Plastic Name Relationship Healthcare Agent Relationship Communication Sunni Ford Sibling Primary healthcare agent [phone] (Steele)
[2019-09-30] MEDS ORDERED: FAMOTIDINE 20 MG/2 ML VIAL IV ONE (05:55)
[2019-09-30] MEDS ORDERED: NA CHLORIDE 0.9% 1,000 ML ONE ×2 (05:55→08:52)
[2019-09-30 06:32] LABS: Absolute Lymphocytes (CBC) 2.9 K/uL (0.7-4.9); Basophils % 0.5 % (0-1.3); Hematocrit 44.1 % (36.0-45.0); Lymphocytes % 28.7 % (15.3-44.8); MPV 9.1 fL (7.6-11.3); RBC Red Blood Cell Count 4.52 M/uL (3.86-4.86)
--- NOTE | 2019-09-30 07:50 | RAD REPORT ---
EXAM DESCRIPTION: CT - Abdomen Pelvis W Contrast - 09/30/2019 7:11 am CLINICAL HISTORY: Abdominal pain. COMPARISON: 2017 TECHNIQUE: Computed axial tomography of the abdomen and pelvis was obtained. 100 cc Isovue-300 is ad ministered intravenously. Oral contrast was given. All CT scans are performed using dose optimization technique as appropriate and may include automated exposure control or mA/KV adjustment according to patient size. FINDINGS: The liver, spleen, pancreas, adrenals and kidneys appear unremarkable. The cecum lies within the lower right pelvis. The appendix extends into the left lower pelvis. The ap pendix is normal caliber. There is no evidence of diverticulitis An umbilical hernia contains fat. The neck measures 2 centimeters IMPRESSION: No acute abnormality splayed
[2019-09-30 07:56] LABS: Urine Bacteria <20 /HPF (<20); Urine RBC <5 /HPF (NONE SEEN)
[2019-09-30 07:57] LABS: Urine Blood NEGATIVE (NEG); Urine Glucose NEGATIVE (NEG); Urine Protein 1+ (NEG); Urine Specific Gravity 1.025 (1.005-1.030); Urine pH 5.5 (5.0-7.0)
[2019-09-30 07:59] LABS: Albumin 4.2 g/dL (3.4-5.0); Bilirubin Direct 0.1 mg/dL (0-0.2); Bilirubin Total 0.5 mg/dL (0.2-1.0); Potassium 3.9 mmol/L (3.5-5.1); Protein, Total 8.5 g/dL (6.4-8.2)
--- NOTE | 2019-09-30 08:37 | EDPHYS ---
Physician Documentation [facility] Name: Lisbet Ma Age: 38 yrs Sex: Female : 1980 Arrival Date: 09/30/2019 Time: 05:19 Bed 20 Private MD: KENIA Physician Juan Mcfadden HPI: 09/29 05:43 This 38 yrs old Female presents to ER via Ambulatory with complaints of debbie Abdominal Pain, L Side Pain. 05:43 The patient presents with abdominal pain in the upper abdomen, in the left upper debbie quadrant. Onset: The symptoms/episode began/occurred 2 day(s) ago. The symptoms do not radiate. Associated signs and symptoms: none. The symptoms are described as crampy, dull. Modifying factors: The symptoms are alleviated by nothing, the symptoms are aggravated by nothing. Severity of pain: At its worst the pain was mild moderate in the emergency department the pain is unchanged. The patient has experienced similar episodes in the past, several times. BALLISTICS EXPERT: 05:38 LMP N/A - control method rv Historical: - Allergies: 05:36 NKA; rv - PMHx: 05:36 Colitis; gastritis; Hypertension; pre-diabetic; rv - PSHx: 05:36 None; rv - Immunization history:: Adult Immunizations up to date. - Social history:: Smoking status: Patient denies any tobacco usage or history of. - Family history:: not pertinent. ROS: 05:45 Constitutional: Negative for fever, chills, and weight loss, Eyes: Negative for injury, debbie pain, redness, and discharge, ENT: Negative for injury, pain, and discharge, Neck: Negative for injury, pain, and swelling, Cardiovascular: Negative for chest pain, palpitations, and edema, Respiratory: Negative for shortness of breath, cough, wheezing, and pleuritic chest pain, Back: Negative for injury and pain, : Negative for injury, bleeding, discharge, and swelling, MS/Extremity: Negative for injury and deformity, Skin: Negative for injury, rash, and discoloration, Neuro: Negative for headache, weakness, numbness, tingling, and seizure, Psych: Negative for depression, anxiety, suicide ideation, homicidal ideation, and hallucinations, Allergy/Immunology: Negative for hives, rash, and allergies, Endocrine: Negative for neck swelling, polydipsia, polyuria, polyphagia, and marked weight changes, Hematologic/Lymphatic: Negative for swollen nodes, abnormal bleeding, and unusual bruising. 05:45 Abdomen/GI: Positive for abdominal pain, of the epigastric area and left upper quadrant. Exam: 05:45 Constitutional: This is a well developed, well nourished patient who is awake, alert, debbie and in no acute distress. Head/Face: Normocephalic, atraumatic. Eyes: Pupils equal round and reactive to light, extra-ocular motions intact. Lids and lashes normal. Conjunctiva and sclera are non-icteric and not injected. Cornea within normal limits. Periorbital areas with no swelling, redness, or edema. ENT: Nares patent. No nasal discharge, no septal abnormalities noted. Tympanic membranes are normal and external auditory canals are clear. Oropharynx with no redness, swelling, or masses, exudates, or evidence of obstruction, uvula midline. Mucous membranes moist. Neck: Trachea midline, no thyromegaly or masses palpated, and no cervical lymphadenopathy. Supple, full range of motion without nuchal rigidity, or vertebral point tenderness. No Meningismus. Chest/axilla: Normal chest wall appearance and motion. Nontender with no deformity. No lesions are appreciated. Cardiovascular: Regular rate and rhythm with a normal S1 and S2. No gallops, murmurs, or rubs. Normal PMI, no JVD. No pulse deficits. Respiratory: Lungs have equal breath sounds bilaterally, clear to auscultation and percussion. No rales, rhonchi or wheezes noted. No increased work of breathing, no retractions or nasal flaring. Back: No spinal tenderness. No costovertebral tenderness. Full range of motion. Skin: Warm, dry with normal turgor. Normal color with no rashes, no lesions, and no evidence of cellulitis. MS/ Extremity: Pulses equal, no cyanosis. Neurovascular intact. Full, normal range of motion. Neuro: Awake and alert, GCS 15, oriented to person, place, time, and situation. Cranial nerves II-XII grossly intact. Motor strength 5/5 in all extremities. Sensory grossly intact. Cerebellar exam normal. Normal gait. Psych: Awake, alert, with orientation to person, place and time. Behavior, mood, and affect are within normal limits. 05:45 Abdomen/GI: Inspection: abdomen appears normal, Bowel sounds: normal, Liver: no appreciated palpable abnormalities, Hernia: not appreciated. Vital Signs: 05:33 BP 149 / 100; Pulse 93; Resp 19; Temp 98.7; Pulse Ox 96% ; Weight 61.69 kg; Height 5 rv ft. 5 in. (165.10 cm); Pain 8/10; 06:45 BP 143 / 82; Pulse 81; Resp 17; Pulse Ox 100% on R/A; rv 08:44 BP 116 / 73; Pulse 88; Resp 20 S; Pulse Ox 100% on R/A; Pain 0/10; em 05:33 Body Mass Index 22.63 (61.69 kg, 165.10 cm) rv MDM: 05:21 Patient medically screened. [facility] 05:46 Data reviewed: vital signs, nurses notes, lab test result(s), EKG, radiologic studies, [facility] CT scan. 09/29 05:31 Order name: Basic Metabolic Panel [facility] 09/29 05:31 Order name: CBC with Diff; Complete Time: 06:41 [facility] 09/29 05:31 Order name: Creatinine for Radiology; Complete Time: 06:41 [facility] 09/29 05:31 Order name: Hepatic Function; Complete Time: 08:35 [facility] 09/29 05:31 Order name: Lipase; Complete Time: 08:35 [facility] 09/29 05:31 Order name: TSH; Complete Time: 08:35 [facility] 09/29 05:33 Order name: Basic Metabolic Panel; Complete Time: 08:35 [facility] 09/29 06:00 Order name: Urine Microscopic Only; Complete Time: 08:02 ar5 09/29 07:44 Order name: Urine Dipstick--Ancillary (enter results) 09/29 07:44 Order name: Urine --Ancillary (enter results) 09/29 07:58 Order name: Urine --Ancillary [facility] 09/29 07:59 Order name: Urine Dipstick-Ancillary [facility] 09/29 08:24 Order name: Urine Culture [facility] 09/29 08:30 Order name: T4 Free; Complete Time: 08:35 [facility] 09/29 05:31 Order name: IV Saline Lock; Complete Time: 06:03 [facility] 09/29 05:31 Order name: Labs collected and sent; Complete Time: 06:22 [facility] 09/29 05:31 Order name: Urine Dipstick-Ancillary (obtain specimen); Complete Time: 06:03 [facility] 09/29 05:31 Order name: Urine Test (obtain specimen); Complete Time: 06:02 [facility] 09/29 05:31 Order name: CT Abd/Pelvis - PO and IV Contrast; Complete Time: 08:27 [facility] 09/29 05:31 Order name: EKG; Complete Time: 05:33 [facility] 09/29 05:31 Order name: EKG - Nurse/Tech; Complete Time: 06:34 [facility] Administered Medications: 05:53 Drug: NS 0.9% 1000 ml Route: IV; Rate: 1 bolus; Site: right antecubital; rv 08:44 Follow up: IV Status: Completed infusion; IV Intake: 1000ml em 05:53 Drug: Pepcid 20 mg Route: IVP; Site: right antecubital; rv 08:44 Follow up: Response: No adverse reaction; Marked relief of symptoms; Pain is decreased em 08:50 Drug: NS 0.9% 1000 ml Route: IV; Rate: 1 bolus; Site: right antecubital; em 10:06 Follow up: IV Status: Completed infusion; IV Intake: 900ml em Disposition: 09/30/19 08:35 Discharged to Home. Impression: Abdominal tenderness, Gastritis, unspecified, Nontoxic diffuse goiter, Hypothyroidism, unspecified. - Condition is Stable. - Discharge Instructions: Abdominal Pain, Adult, Goiter, Hypothyroidism, Rehydration, Adult. - Prescriptions for Bentyl 20 mg Oral Tablet - take 1 tablet by ORAL route every 6 hours As needed; 20 tablet. Pepcid 20 mg Oral Tablet - take 1 tablet by ORAL route every 12 hours for 10 days; 20 tablet. Zofran 4 mg Oral Tablet - take 1 tablet by ORAL route every 12 hours As needed; 20 tablet. - Medication Reconciliation Form, Thank You Letter, Antibiotic Education, Prescription Opioid Use, Family Work Release form. - Follow up: Private Physician; When: 2 - 3 days; Reason: Recheck today's complaints, Continuance of care, Re-evaluation by your physician. Follow up: Katt Alston; When: 2 - 3 days; Reason: Recheck today's complaints, Continuance of care, Re-evaluation by your physician. - Problem is new. - Symptoms have improved. Signatures: Dispatcher [employer] EDJuan Burgos MD MD debbie Kristan, Marivel, ANSWERER-C ANSWERER-Csnw German Wiggins, RN RN em Manuelito Alberto, RN RN rv Corrections: (The following items were deleted from the chart) 10:13 08:35 09/30/2019 08:35 Discharged to Home. Impression: Abdominal tenderness; Gastritis, em unspecified; Nontoxic diffuse goiter; Hypothyroidism, unspecified. Condition is Stable. Discharge Instructions: Abdominal Pain, Adult, Goiter, Hypothyroidism, Rehydration, Adult. Prescriptions for Bentyl 20 mg Oral Tablet - take 1 tablet by ORAL route every 6 hours As needed; 20 tablet, Pepcid 20 mg Oral Tablet - take 1 tablet by ORAL route every 12 hours for 10 days; 20 tablet, Zofran 4 mg Oral Tablet - take 1 tablet by ORAL route every 12 hours As needed; 20 tablet. and Forms are Medication Reconciliation Form, Thank You Letter, Antibiotic Education, Prescription Opioid Use. Follow up: Private Physician; When: 2 - 3 days; Reason: Recheck today's complaints, Continuance of care, Re-evaluation by your physician. Follow up: Katt Alston; When: 2 - 3 days; Reason: Recheck today's complaints, Continuance of care, Re-evaluation by your physician. Problem is new. Symptoms have improved. snw
--- NOTE | 2019-09-30 08:37 | ER ---
Nurse's Notes [facility] Name: Lisbet Ma Age: 38 yrs Sex: Female : 1980 Arrival Date: 09/30/2019 Time: 05:19 Bed 20 Private MD: Diagnosis: Abdominal tenderness;Gastritis, unspecified;Nontoxic diffuse goiter;Hypothyroidism, unspecified Presentation: 09/29 05:33 Chief complaint: Patient states: PAIN STARTED SATURDAY NIGHT, DESCRIBED SHARP AND rv CRAMPING PAIN,8/10 PAIN SCALE. DENIES NAUSEA AND VOMITING, OR FEVER. Coronavirus screen: Patient denies fever greater than 100.4F, cough, shortness of breath, or difficulty breathing. Ebola Screen: No symptoms or risks identified at this time. Initial Sepsis Screen: Does the patient meet any 2 criteria? No. Patient's initial sepsis screen is negative. Does the patient have a suspected source of infection? No. Patient's initial sepsis screen is negative. Risk Assessment: Do you want to hurt yourself or someone else? Patient reports no desire to harm self or others. 05:33 Method Of Arrival: Ambulatory rv 05:33 Acuity: RONAL 3 rv GROCERY SUPERVISOR: 05:38 LMP N/A - control method rv Historical: - Allergies: 05:36 NKA; rv - PMHx: 05:36 Colitis; gastritis; Hypertension; pre-diabetic; rv - PSHx: 05:36 None; rv - Immunization history:: Adult Immunizations up to date. - Social history:: Smoking status: Patient denies any tobacco usage or history of. - Family history:: not pertinent. Screenin:38 Abuse screen: Denies threats or abuse. Denies injuries from another. Nutritional rv screening: No deficits noted. Tuberculosis screening: No symptoms or risk factors identified. Fall Risk None identified. Assessment: 05:36 General: Appears in no apparent distress. Behavior is calm, cooperative. Pain: rv Complains of pain in abdomen Pain currently is 8 out of 10 on a pain scale. Quality of pain is described as crampy, sharp. Neuro: Level of Consciousness is awake, alert, obeys commands, Oriented to person, place, time, situation. Cardiovascular: Patient's skin is warm and dry. Respiratory: Airway is patent. GI: Bowel sounds present X 4 quads. Abd is soft and non tender X 4 quads. Derm: Skin is intact. 06:41 Reassessment: patient taken to CT scan. rv 07:10 Reassessment: Patient appears in no apparent distress at this time. returned from CT. em 07:45 Reassessment: Patient appears in no apparent distress at this time. Patient and/or em family updated on plan of care and expected duration. Pain level reassessed. Patient is alert, oriented x 3, equal unlabored respirations, skin warm/dry/pink. Patient denies pain at this time. Patient states feeling better. Patient states symptoms have improved. 08:50 Reassessment: Patient appears in no apparent distress at this time. Patient and/or em family updated on plan of care and expected duration. Pain level reassessed. Patient is alert, oriented x 3, equal unlabored respirations, skin warm/dry/pink. pending completions of 2nd NS bolus, then will be discharged. Vital Signs: 05:33 BP 149 / 100; Pulse 93; Resp 19; Temp 98.7; Pulse Ox 96% ; Weight 61.69 kg; Height 5 rv ft. 5 in. (165.10 cm); Pain 8/10; 06:45 BP 143 / 82; Pulse 81; Resp 17; Pulse Ox 100% on R/A; rv 08:44 BP 116 / 73; Pulse 88; Resp 20 S; Pulse Ox 100% on R/A; Pain 0/10; em 05:33 Body Mass Index 22.63 (61.69 kg, 165.10 cm) rv ED Course: 05:19 Patient arrived in ED. ds1 05:20 Juan Mcfadden MD is Attending Physician. debbie 05:33 Manuelito Alberto RN is Primary Nurse. rv 05:35 Triage completed. rv 05:36 Arm band placed on Patient placed Patient notified of wait time. rv 05:38 Patient has correct armband on for positive identification. Pulse ox on. NIBP on. rv 06:00 Inserted saline lock: 22 gauge in right antecubital area, using aseptic technique. rv Blood collected. 06:00 Initial lab(s) drawn, by me, sent to lab. rv 06:58 Marivel Rushing FNP-C [facility]. snw 07:19 CT Abd/Pelvis - PO and IV Contrast In Process Unspecified. EDMS 08:35 Katt Alston MD is Referral Physician. snw 09:11 No provider procedures requiring assistance completed. em 10:05 IV discontinued, intact, bleeding controlled, No redness/swelling at site. Pressure em dressing applied. Administered Medications: 05:53 Drug: NS 0.9% 1000 ml Route: IV; Rate: 1 bolus; Site: right antecubital; rv 08:44 Follow up: IV Status: Completed infusion; IV Intake: 1000ml em 05:53 Drug: Pepcid 20 mg Route: IVP; Site: right antecubital; rv 08:44 Follow up: Response: No adverse reaction; Marked relief of symptoms; Pain is decreased em 08:50 Drug: NS 0.9% 1000 ml Route: IV; Rate: 1 bolus; Site: right antecubital; em 10:06 Follow up: IV Status: Completed infusion; IV Intake: 900ml em Intake: 08:44 IV: 1000ml; Total: 1000ml. em 10:06 IV: 900ml; Total: 1900ml. em Outcome: 08:35 Discharge ordered by . snw 10:04 Discharged to home ambulatory. em 10:04 Condition: good 10:04 Discharge instructions given to patient, Instructed on discharge instructions, follow up and referral plans. medication usage, Demonstrated understanding of instructions, follow-up care, medications, Prescriptions given X 3. 10:13 Patient left the ED. em Signatures: Dispatcher [employer] Juan Evangelista MD MD cha Therrien, Shelly, TESTING ENGINEER-C TESTING ENGINEER-Csnw German Wiggins, RN RN Cecilia Sands ds1 Manuelito Alberto RN RN rv
[2019-09-30 10:24] VITALS: TEMP 98.7
[2019-09-30 10:26] VITALS: O2SAT 100
[2019-09-30 10:27] VITALS: BP 116/73
--- NOTE | 2019-09-30 10:56 | EKG ---
Test Date: 2019-09-30 Test Time: 06:14:12 University Librarian: RV MEASUREMENT RESULTS: Intervals: Rate: 92 DC: 126 QRSD: 82 QT: 352 QTc: 435 [place]: P: 12 DC: 126 QRS: 23 T: 57 INTERPRETIVE STATEMENTS: Normal sinus rhythm Normal ECG Compared to ECG 09/09/2017 10:51:19 Short DC interval no longer present Electronically Signed On 09-30-19 10:56:05 CDT by Jamel Perez
== END 2019-09-30 10:13 | disposition home or self-care (01) ==
LOC: ER 05:18
DX: K29.70 Gastritis, unspecified, without bleeding (principal); E03.9 Hypothyroidism, unspecified; E04.0 Nontoxic diffuse goiter; I10 Essential (primary) hypertension
CPT/HCPCS: 36415; 74177; 80048; 80076; 81003; 81015; 81025; 83690; 84439; 84443; 85025; 87086; 87088; 93005; 96361; 96374; 99284; J7030; Q9967

== ENCOUNTER 2020-04-05 13:35 | Emergency (ER) | payer SELFPAY, OTHER ==
--- OUTSIDE RECORDS SUMMARY | 2020-04-05 13:42 | XMS REPORT | Summary of Care ---
:1980 Author Organization [facility] Address [address] [place] [id number] Care Team Providers Name Role Phone Alonzo Ann Primary Care Provider Reason for Visit Reason Comments DEPO PROVERA Encounter Details Date Type Department Care Team Description 01/28/[address] [facility] Ann R, [employer]PER[employer] [address] [place] [address] Depo-Provera [place] Visit, [facility] Nurse contraceptive status [address] [facility] (Primary Dx) [place] [address] Allergies No Known Allergiesdocumented as of this encounter (statuses as of 01/28/2020) Medications Medication Sig Dispensed Refills Start Date End Date Status lisinopril 10 mg tablet Take 10 mg by 0 Active mouth daily. Hospital, Clinic, or Other Ordered Dose Route Frequency Start Date End Date Status Facility Administered Medication medroxyPROGESTERone 150 mg IM [id number] 11/05/2019 1 Active (DEPO-PROVERA) injection 150 mgIndications: Depo-Provera contraceptive status documented as of this encounter (statuses as of 01/28/2020) Active Problems Problem Noted Date Encounter for surveillance of injectable contraceptive 11/05/2019 Hyperthyroidism 11/05/2019 BMI 25.0-25.9,adult 11/05/2019 Abscess of groin, left 05/17/2019 Well woman exam (no gynecological exam) 10/15/2018 Abscess of Bartholin's gland 10/15/2018 Depo-Provera contraceptive status 04/17/2016 Essential hypertension 01/02/2013 Overview: ICD10 Diagnosis Term Rails Developer Utility documented as of this encounter (statuses as of 01/28/2020) Resolved Problems Problem Noted Date Resolved Date Encounter for IUD removal 04/17/2016 10/15/2017 Screening for STDs (sexually transmitted diseases) 6 10/15/2017 Routine gynecological examination 04/17/20162017 Chlamydia trachomatis infection of lower genitourinary sites 10/13/2013 10/15/2017 Encounter for insertion of intrauterine contraceptive device 10/09/2013 10/15/2017 Overview: Exp. 10/10/2023 Encounter for routine gynecological examination 06/26/2013 10/15/2017 Overview: ICD10 Diagnosis Term Rails Developer Utility Other general counseling and advice for contraceptive 201210/09/2013 management Allergic rhinitis 06/26/2013 10/09/2013 Overview: ICD10 Diagnosis Term Rails Developer Utility Sinus pressure 06/26/2013 10/09/2013 Proteinuria 05/29/2013 06/26/2013 Suprapubic pressure 05/29/2013 06/26/2013 Anemia of mother in , condition 05/29/20 13 10/09/2013 Pelvic cramping 05/22/2013 06/26/2013 Normal delivery 05/15/2013 06/26/2013 Severe pre-eclampsia, antepartum 05/15/2013 013 High-risk supervision 05/02/2013 05/22/20 13 Other known or suspected abnormality, not elsewhere 04/30/2013 classified, affecting management of mother, antepartum condition or complication Overview: intracranial cyst Headache 01/02/2013 04/30/2013 Overview: ICD10 Diagnosis Term Rails Developer Utility Trichomonal vulvovaginitis 12/12/2012 04/30/2013 Overview: Treated patient and partner Immune to rubella 11/27/2012 04/30/2013 Immune to varicella 11/27/2012 04/30/2013 spontaneous labor with delivery 11/27/2012 05/29/2013 Overview: PTL starting at 20 weeks, bedrest, recei jeanne IV tocolytics. Delivered at 28 weeks after PROM. Family history of congenital anomalies 11/27/2012 1 07/22/2012 Overview: Son has hand deformity. Genetics and det caden US Glucose tolerance test abnormal 11/03/2012 04/30/20 Overview: 1 hr- 151, 3 hr- gtt normal. Repeat at 2 8 weeks Chlamydia trachomatis infection of lower genitourinary sites 11/03/2012 04/30/2013 Overview: 11/27/2012 and 12/12/2012- COURTNEY-negative History of cervical dysplasia 10/31/2012 10/31/2012 Overview: Entered in error ICD10 Diagnosis Term Rails Developer Utility Nausea & vomiting 10/31/2012 04/30/2013 Overview: May take otc vitamin b 6 50 mg bid Multiparity 10/01/2007 09/25/2012 anemia 10/01/2007 09/25/2012 Overview: ICD10 Diagnosis Term Rails Developer Utility Normal delivery 09/30/2007 09/25/2012 Proteinuria 09/29/2007 09/25/2012 Anemia of mother, with delivery, with complicatio n 11/01/2006 09/25/2012 Overview: asymptomatic ICD10 Diagnosis Term Rails Developer Utility First degree perineal laceration during delivery 10/31/2006 09/25/2012 Overview: ICD10 Diagnosis Term Rails Developer Utility OTHER DIAGNOSIS - PLEASE ANNOTATE. 10/30/200610/31 Overview: labor Dehydration 05/11/2006 10/30/2006 documented as of this encounter (statuses as of 01/28/2020) Immunizations Name Administration Dates Next Due Influenza Virus Vaccine 03/26/2013 Influenza Virus Vaccine Quad .5 mL 05/27/2019 IM 6+ MO Rubella 03/21/2007 TDAP 06/26/2013, 04/21/2013 (Deferred: Medical Deferment Parent Refused - Pt left clinic without vaccine) Td 07/08/1998 documented as of this encounter Social History [...] Travel End No recent travel history available. COVID-19 Exposure Response Date Recorded In the last month, have you been in contact with No / Unsure 01/28/2020 9:14 AM CDT someone who was confirmed or suspected to have Coronavirus / COVID-19? documented as of this encounter Last Filed Vital Signs Vital Sign Reading Time Taken Comments Blood Pressure 121/78 01/28/2020 9:14 AM CDT Pulse 62 01/28/2020 9:14 AM CDT Temperature 36.8 C (98.3 F) 01/28/2020 9:14 AM CDT Respiratory Rate 16 01/28/2020 9:14 AM CDT Oxygen Saturation - - Inhaled Oxygen Concentration - - Weight 60.1 kg (132 lb 8 oz) 01/28/2020 9:14 AM CDT Height 165.1 cm (5' 5") 01/28/2020 9:14 AM CDT Body Mass Index 22.05 01/28/2020 9:14 AM CDT documented in this encounter Patient Instructions Patient InstructionsAdán De Guzman, ROSS - 01/28/2020 9:00 AM CDT Patient Education Medroxyprogesterone injection [Contraceptive] Brand Names: Depo-Provera, Depo-subQ Provera 104 Qu es aliza medicamento? Las inyecciones anticonceptivas de MEDROXIPROGESTERONA previenen el embarazo. Las inyecciones le brindarn control de la natalidad damon 3 meses. La Depo- subQ Provera 104 se utiliza tambin para tratar el dolor relacionado con endometriosis. Site Leasing Agent matteo utilizar aliza medicamento? Depo-Provera Contraceptive inyectable [...] acerca del uso de aliza medicamento en nios. Puede requerir atencin especial. Estas inyecciones quiñones sido usadas en nias que quiñones empezado a tener perodos menstruales. [...] felbamato, oxcarbazepina, fenitona, topiramato modafinilo hierba de [place] Qu sucede si me olvido de herrera dosis? Trate de no olvidar ninguna dosis. Para mantener el control de natalidad necesitar herrera inyeccin cada 3 meses. Si no puede asistir a herrera bean, comunquese con kaufman profesional de la isatu para [...] profesional de la isatu antes de wendy aliza medicamento? Necesita saber si usted presenta [...] kaufman profesional de la isatu acerca de computerized machine fabric cutter puede mantener los huesos jo. Puede experimentar [...] tiempo despus de recibir kaufman ltima inyeccin. [phone] [employer]. [address] [place] [phone]. Todos los derechos reservados. Esta informacin no pretende sustituir la atencin mdica profesional. Slo kaufman mdico puede diagnosticar y tratar un problema de isatu. documented in this encounter Progress Notes Adán De Guzman RN - 01/28/2020 9:00 AM CDT39 year old female has been identified by and name. Verbal consent has been obtained by patientto have an injection of Depo Provera, as ordered by the provider. Date of last Depo Provera injection: 11/05/2019 Last WWE: 11/05/2019 Encounter Diagnosis: v25.49 The site was cleaned [...] Patient verbalized understanding. ADÁN DE GUZMAN RN 01/28/2020 9:25 AM documented in this encounter Plan of Treatment Date Type Specialty Care Team Description 04/21/2020 Office Visit [facility]ell[facility] 1, [facility] Fc Room 04/21/2020 Nurse Visit OB Satellites Visit, [facility] Nurse Health Maintenance Due Date Last Done Comments PAP SMEAR 04/17/2019 04/17/2016, 10/24/2012, 09/25/2012, Additional history exists INFLUENZA VACCINE (#1) 2020 05/27/2019, 03/26/2013 VARICELLA VACCINES (1 of 2 05/27/2020 Postp oned from - 2-dose childhood series) 10/22 (Insurance / Financial) Depression Screening 11/04/2020 11/05/2019 DTaP,Tdap,and Td Vaccines 06/26/2023 06/26/2013, 07/08/1998 (3 - Td) PNEUMOCOCCAL 0-64 YEARS Aged Out No longe r eligible COMBINED SERIES based on patient 's age to complete this topic documented as of this encounter Results Not on filedocumented in this encounter Visit Diagnoses Diagnosis Depo-Provera contraceptive status - Prim margarita Surveillance of other previously prescri bed contraceptive method documented in this encounter Administered Medications Medication Order MAR Action Action Date Dose Rate Site medroxyPROGESTERone Given 01/28/2020 9:24 150 mg Left Deltoid-IM (DEPO-PROVERA) injection 150 AM CDT mg 150 mg, Intramuscular, [id number], 4 doses, First dose on Delores 11/05/19 at 0915, Last dose on Delores 07/14/20 at 0915, Routine Given 11/05/2019 9:25 AM CDT 150 mg Righ t Deltoid-IM documented in this encounter Insurance Payer Benefit Plan / Subscriber ID Effective Dates Phone Addre ss Type Group [facility] FAM[facility] FAMILY PLANNING [id number] 2019-Harjeet PHAM Agency PLANNING EDGARDO EDGARDO 0-100% t [id number] [place] [address] documented as of this encounter Advance Directives Type Date Recorded Patient Adult Caregiver Explanati on Advance Directives and Living Will Power of Last Pattern Grader Name Relationship Healthcare Agent Relationship Co mmunication Sunni Ford Sibling Primary healthcare agent
--- OUTSIDE RECORDS SUMMARY | 2020-04-05 13:42 | XMS REPORT | Continuity of Care Document ---
:1980 Author Organization [facility] t Address [address] [place] [address] Care Team Providers Name Role Phone Visit, Nurse Attending Clinician Unavailable Alonzo Maradiaga Attending Clinician Problems This patient has no known problems. Allergies, Adverse Reactions, Alerts This patient has no known allergies or adverse reactions. Medications This patient has no known medications. Procedures This patient has no known procedures. Encounters Start End Encounter Admission Attending Care Care Encounter Source Date/Time Date/Time Type Type Clinicians Facility Department ID 2020-01-28 2020-01-28 Nurse Visit, [facility] [id number] 08:43:48 09:22:35 Visit Brennon-Fiorella [facility] [id number] Nurse REGIONAL [id number] MATERNAL [id number] & CHILD [facility] 2019-11-05 2019-11-05 Office MITCHELL Ann [id number] 08:32:17 09:21:05 Visit Osiel Rosado [facility] [id number] REGIONAL [id number] MATERNAL [id number] & CHILD 107 [facility] Results This patient has no known results.
[2020-04-05] MEDS ORDERED: NA CHLORIDE 0.9% 1,000 ML ONE (15:47)
[2020-04-05] MEDS ORDERED: ONDANSETRON 4 MG/2 ML VIAL ONE (15:47)
[2020-04-05 15:50] LABS: Absolute Lymphocytes (CBC) 3.1 K/uL (0.7-4.9); Basophils % 0.5 % (0-1.3); Hematocrit 43.3 % (36.0-45.0); Lymphocytes % 34.7 % (15.3-44.8); RBC Red Blood Cell Count 4.44 M/uL (3.86-4.86)
[2020-04-05 16:25] LABS: ALT/SGPT 25 U/L (12-78); AST/SGOT 19 U/L (15-37); Albumin 4.3 g/dL (3.4-5.0); Alkaline Phosphatase 100 U/L (45-117); BUN Blood Urea Nitrogen 16 mg/dL (7-18); Bicarbonate 24 mmol/L (21-32); Bilirubin Direct < 0.1 mg/dL (0-0.2); Bilirubin Total 0.5 mg/dL (0.2-1.0); Glucose Level 90 mg/dL (74-106); Lipase 222 U/L (73-393); Potassium 4.2 mmol/L (3.5-5.1); Protein, Total 8.6 g/dL (6.4-8.2); Sodium Level 140 mmol/L (136-145)
[2020-04-05 16:44] LABS: Urine Blood NEGATIVE (NEG); Urine Glucose NEGATIVE (NEG); Urine Protein NEGATIVE (NEG); Urine Specific Gravity 1.015 (1.005-1.030)
--- NOTE | 2020-04-05 16:51 | RAD REPORT ---
EXAM DESCRIPTION: CTAbdomen Pelvis W Contrast - 04/05/2020 4:44 pm CLINICAL HISTORY: Abdominal pain. ABD PAIN COMPARISON: Abdomen Pelvis W Contrast dated 09/30/2019 TECHNIQUE: Biphasic CT imaging of the abdomen and pelvis was performed with 100 ml non-ionic IV cont rast. All CT scans are performed using dose optimization technique as appropriate and may include automated exposure control or mA/KV adjustment according to patient size. FINDINGS: The lung bases are clear. The liver, spleen, pancreas, adrenal glands and kidneys are within normal limits. No bowel obstruction, free air, free fluid or abscess. The appendix is normal. No evidence of signi ficant lymphadenopathy. No suspicious bony findings. IMPRESSION: No acute intra-abdominal or pelvic finding.
--- NOTE | 2020-04-05 17:06 | ER ---
Nurse's Notes [facility] Name: Lisbet Ma Age: 39 yrs Sex: Female : 1980 Arrival Date: 04/05/2020 Time: 13:41 Bed 14 Private MD: Diagnosis: Vomiting;Abdominal tenderness Presentation: 04/05 14:08 Chief complaint: Patient states: Epigastric and LUQ pain, nausea x 3 days. Vomiting ca1 started today. Denies diarrhea. Coronavirus screen: Client denies travel out of the [place] in the last 14 days. nausea, vomiting. Client presents with at least one sign or symptom that may indicate coronavirus-19. Standard/surgical mask placed on the client. Provider contacted for isolation considerations. Ebola Screen: Patient negative for fever greater than or equal to 101.5 degrees Fahrenheit, and additional compatible Ebola Virus Disease symptoms Patient denies exposure to infectious person. Patient denies travel to an Ebola-affected area in the 21 days before illness onset. No symptoms or risks identified at this time. Initial Sepsis Screen: Does the patient meet any 2 criteria? No. Patient's initial sepsis screen is negative. Does the patient have a suspected source of infection? No. Patient's initial sepsis screen is negative. Risk Assessment: Do you want to hurt yourself or someone else? Patient reports no desire to harm self or others. Onset of symptoms was April 05, 2020. 14:08 Method Of Arrival: Ambulatory ca1 14:08 Acuity: RONAL 3 ca1 PRECAST MOLDER: 14:12 LMP N/A - Depo-provera ca1 Historical: - Allergies: 14:12 NKA; ca1 - PMHx: 14:12 Colitis; gastritis; Hypertension; pre-diabetic; ca1 - PSHx: 14:12 None; ca1 - Immunization history:: Adult Immunizations not up to date. - Social history:: Smoking status: Patient denies any tobacco usage or history of. - Family history:: not pertinent. Screenin:39 Abuse screen: Denies threats or abuse. Nutritional screening: No deficits noted. ll2 Tuberculosis screening: No symptoms or risk factors identified. Fall Risk None identified. Assessment: 14:37 General: Appears in no apparent distress. Behavior is calm, cooperative, appropriate ll2 for age. Pain: Complains of pain in left lower quadrant Pain currently is 5 out of 10 on a pain scale. Pain began gradually, Is intermittent. Neuro: Level of Consciousness is awake, alert, obeys commands, Oriented to person, place, time, situation. Cardiovascular: Capillary refill < 3 seconds Patient's skin is warm and dry. Respiratory: Airway is patent Respiratory effort is even, unlabored, Respiratory pattern is regular, symmetrical. GI: Abdomen is flat, non-distended, Reports nausea, vomiting. : No signs and/or symptoms were reported regarding the genitourinary system. EENT: No signs and/or symptoms were reported regarding the EENT system. Derm: Skin is intact, is healthy with good turgor, Skin is dry, Skin is pink, warm \T\ dry. Skin temperature is warm. Musculoskeletal: Circulation, motion, and sensation intact. Range of motion: intact in all extremities. 14:51 Reassessment: Patient and/or family updated on plan of care and expected duration. Pain ll2 level reassessed. Patient is alert, oriented x 3, equal unlabored respirations, skin warm/dry/pink. 15:56 Reassessment: Patient and/or family updated on plan of care and expected duration. Pain ll2 level reassessed. Patient is alert, oriented x 3, equal unlabored respirations, skin warm/dry/pink. 17:05 Reassessment: No changes from previously documented assessment. Patient and/or family ll2 updated on plan of care and expected duration. Pain level reassessed. Patient is alert, oriented x 3, equal unlabored respirations, skin warm/dry/pink. Vital Signs: 14:08 BP 140 / 86; Pulse 81; Resp 16 S; Temp 97(O); Pulse Ox 100% on R/A; Weight 60.78 kg ca1 (R); Height 5 ft. 5 in. (165.10 cm) (R); 14:40 BP 153 / 84; Pulse 84; Resp 16; Pulse Ox 100% on R/A; ll2 15:50 BP 134 / 79; Pulse 90; Resp 14; Pulse Ox 100% on R/A; ll2 17:04 BP 130 / 78; Pulse 75; Resp 16; Pulse Ox 100% on R/A; ll2 14:08 Body Mass Index 22.30 (60.78 kg, 165.10 cm) ca1 ED Course: 13:41 Patient arrived in ED. mr 14:11 Triage completed. ca1 14:12 Arm band placed on right wrist. ca1 14:34 Shaylee Brooks, RN is Primary Nurse. ll2 14:40 Patient has correct armband on for positive identification. Call light in reach. Side ll2 rails up X 1. Pulse ox on. NIBP on. 14:55 Juan Mcfadden MD is Attending Physician. debbie 15:37 Inserted saline lock: 20 gauge in right antecubital area, using aseptic technique. jd3 Blood collected. 16:00 Radiology exam delayed due to test not completed at this time. vm2 16:44 CT Abd/Pelvis - IV Contrast Only In Process Unspecified. EDMS 17:15 No provider procedures requiring assistance completed. IV discontinued, intact, ll2 bleeding controlled, No redness/swelling at site. Pressure dressing applied. Administered Medications: 15:41 Drug: NS 0.9% 1000 ml Route: IV; Rate: 1 bolus; Site: right antecubital; ll2 15:41 Drug: Zofran (Ondansetron) 4 mg Route: IVP; Site: right antecubital; ll2 15:42 Follow up: Response: No adverse reaction ll2 Outcome: 17:05 Discharge ordered by . [facility] 17:16 Discharged to home ambulatory. ll2 17:16 Condition: stable 17:16 Discharge instructions given to patient, Instructed on discharge instructions, follow up and referral plans. medication usage, Demonstrated understanding of instructions, follow-up care, medications, Prescriptions given X 3. 17:16 Patient left the ED. ll2 Signatures: Dispatcher [employer] EDCO Juan Mcfadden MD MD cha Rivera, Mary mr Martin Meaghan 2 Kenney Curiel RN RN jd3 Amina Watkins RN RN Shaylee Perez, RN RN ll2
--- NOTE | 2020-04-05 17:06 | EDPHYS ---
Physician Documentation [facility] Name: Lisbet Ma Age: 39 yrs Sex: Female : 1980 Arrival Date: 04/05/2020 Time: 13:41 Bed 14 Private MD: KENIA Physician Juan Mcfadden HPI: 04/05 15:22 This 39 yrs old Female presents to ER via Ambulatory with complaints of debbie Nausea/Vomiting, Abdominal Pain. 15:22 The patient presents to the emergency department with nausea, vomiting, abdominal pain, debbie of the left upper quadrant and left lower quadrant. Onset: The symptoms/episode began/occurred 1 day(s) ago. Possible causes: unknown. The symptoms are aggravated by nothing. The symptoms are alleviated by nothing. Associated signs and symptoms: Pertinent positives: nausea, vomiting. Severity of symptoms: At their worst the symptoms were mild in the emergency department the symptoms are unchanged. The patient has not experienced similar symptoms in the past. 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 - Social history:: Smoking status: Patient denies any tobacco usage or history of. - Family history:: not pertinent. ROS: 15:22 Constitutional: Negative for fever, chills, and weight loss, Eyes: Negative for injury, debbie pain, redness, and discharge, ENT: Negative for injury, pain, and discharge, Neck: Negative for injury, pain, and swelling, Cardiovascular: Negative for chest pain, palpitations, and edema, Respiratory: Negative for shortness of breath, cough, wheezing, and pleuritic chest pain, Back: Negative for injury and pain, : Negative for injury, bleeding, discharge, and swelling, MS/Extremity: Negative for injury and deformity, Skin: Negative for injury, rash, and discoloration, Neuro: Negative for headache, weakness, numbness, tingling, and seizure, Psych: Negative for depression, anxiety, suicide ideation, homicidal ideation, and hallucinations, Allergy/Immunology: Negative for hives, rash, and allergies, Endocrine: Negative for neck swelling, polydipsia, polyuria, polyphagia, and marked weight changes, Hematologic/Lymphatic: Negative for swollen nodes, abnormal bleeding, and unusual bruising. 15:22 Abdomen/GI: Positive for abdominal pain, nausea and vomiting, of the left upper quadrant and left lower quadrant. Exam: 15:22 Constitutional: This is a well developed, well nourished patient who is awake, alert, debbie and in no acute distress. Head/Face: Normocephalic, atraumatic. Eyes: Pupils equal round and reactive to light, extra-ocular motions intact. Lids and lashes normal. Conjunctiva and sclera are non-icteric and not injected. Cornea within normal limits. Periorbital areas with no swelling, redness, or edema. ENT: Nares patent. No nasal discharge, no septal abnormalities noted. Tympanic membranes are normal and external auditory canals are clear. Oropharynx with no redness, swelling, or masses, exudates, or evidence of obstruction, uvula midline. Mucous membranes moist. Neck: Trachea midline, no thyromegaly or masses palpated, and no cervical lymphadenopathy. Supple, full range of motion without nuchal rigidity, or vertebral point tenderness. No Meningismus. Chest/axilla: Normal chest wall appearance and motion. Nontender with no deformity. No lesions are appreciated. Cardiovascular: Regular rate and rhythm with a normal S1 and S2. No gallops, murmurs, or rubs. Normal PMI, no JVD. No pulse deficits. Respiratory: Lungs have equal breath sounds bilaterally, clear to auscultation and percussion. No rales, rhonchi or wheezes noted. No increased work of breathing, no retractions or nasal flaring. Back: No spinal tenderness. No costovertebral tenderness. Full range of motion. Female : Normal external genitalia. Skin: Warm, dry with normal turgor. Normal color with no rashes, no lesions, and no evidence of cellulitis. MS/ Extremity: Pulses equal, no cyanosis. Neurovascular intact. Full, normal range of motion. Neuro: Awake and alert, GCS 15, oriented to person, place, time, and situation. Cranial nerves II-XII grossly intact. Motor strength 5/5 in all extremities. Sensory grossly intact. Cerebellar exam normal. Normal gait. Psych: Awake, alert, with orientation to person, place and time. Behavior, mood, and affect are within normal limits. 15:22 Abdomen/GI: Inspection: abdomen appears normal, Bowel sounds: normal, Palpation: mild abdominal tenderness, in the left upper quadrant and left lower quadrant, Liver: no appreciated palpable abnormalities, Hernia: not appreciated. Vital Signs: 14:08 BP 140 / 86; Pulse 81; Resp 16 S; Temp 97(O); Pulse Ox 100% on R/A; Weight 60.78 kg ca1 (R); Height 5 ft. 5 in. (165.10 cm) (R); 14:40 BP 153 / 84; Pulse 84; Resp 16; Pulse Ox 100% on R/A; ll2 15:50 BP 134 / 79; Pulse 90; Resp 14; Pulse Ox 100% on R/A; ll2 17:04 BP 130 / 78; Pulse 75; Resp 16; Pulse Ox 100% on R/A; ll2 14:08 Body Mass Index 22.30 (60.78 kg, 165.10 cm) ca1 MDM: 14:55 Patient medically screened. debbie 15:24 Differential diagnosis: Nonspecific abd pain, gastritis, pancreatitis, diverticulitis, debbie viral gastroenteritis, gastroenteritis. Data reviewed: vital signs, nurses notes, lab test result(s), radiologic studies, CT scan. 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 Counseling: I had a detailed discussion with the patient and/or guardian regarding: the historical points, exam findings, and any diagnostic results supporting the discharge/admit diagnosis, lab results, radiology results, the need for outpatient follow up, for definitive care, a family practitioner. 16:33 Awaiting: CT scan results, waiting for transport. ED course: improved, will follow up. [facility] 04/05 15:21 Order name: Basic Metabolic Panel; Complete Time: 16:30 [facility] 04/05 15:21 Order name: CBC with Diff; Complete Time: 16:01 [facility] 04/05 15:21 Order name: Hepatic Function; Complete Time: 16:30 [facility] 04/05 15:21 Order name: Lipase; Complete Time: 16:30 [facility] 04/05 16:13 Order name: Urine Dipstick--Ancillary (enter results) 04/05 16:13 Order name: Urine --Ancillary (enter results) 04/05 15:21 Order name: IV Saline Lock; Complete Time: 15:54 [facility] 04/05 15:21 Order name: Labs collected and sent; Complete Time: 15:54 [facility] 04/05 15:21 Order name: Urine Dipstick-Ancillary (obtain specimen); Complete Time: 16:04 [facility] 04/05 15:21 Order name: Urine Test (obtain specimen); Complete Time: 16:04 [facility] 04/05 15:21 Order name: CT Abd/Pelvis - IV Contrast Only [facility] Administered Medications: 15:41 Drug: NS 0.9% 1000 ml Route: IV; Rate: 1 bolus; Site: right antecubital; ll2 15:41 Drug: Zofran (Ondansetron) 4 mg Route: IVP; Site: right antecubital; ll2 15:42 Follow up: Response: No adverse reaction ll2 Disposition: 04/05/20 17:05 Discharged to Home. Impression: Vomiting, Abdominal tenderness. - Condition is Stable. - Discharge Instructions: Abdominal Pain, Adult, Nausea and Vomiting, Adult, Nausea and Vomiting, Adult, [id number], Abdominal Pain, Adult, [id number]-[id number]. - Prescriptions for Bentyl 20 mg Oral Tablet - take 1 tablet by ORAL route every 6 hours As needed; 20 tablet. Pepcid 20 mg Oral Tablet - take 1 tablet by ORAL route every 12 hours for 10 days; 20 tablet. Zofran 4 mg Oral Tablet - take 1 tablet by ORAL route every 12 hours As needed; 20 tablet. - Medication Reconciliation Form, Thank You Letter, Antibiotic Education, Prescription Opioid Use, Work release form form. - Follow up: Private Physician; When: 2 - 3 days; Reason: Recheck today's complaints, Continuance of care, Re-evaluation by your physician. - Problem is new. - Symptoms have improved. Signatures: Dispatcher [employer] [facility] Juan Mcfadden MD MD cha Acob, Cheryl RN RN ca1 Shaylee Brooks RN RN ll2 Corrections: (The following items were deleted from the chart) 15:54 15:22 Abdomen Pelvis W Con+CT.RAD.BRZ ordered. [facility] 17:16 17:05 04/05/2020 17:05 Discharged to Home. Impression: Vomiting; Abdominal tenderness. ll2 Condition is Stable. Discharge Instructions: Abdominal Pain, Adult, Nausea and Vomiting, Adult, Nausea and Vomiting, Adult, Gywz-[id number]-[id number], Abdominal Pain, Adult, Iieg-zx-Erva. Prescriptions for Bentyl 20 mg Oral Tablet - take 1 tablet by ORAL route every 6 hours As needed; 20 tablet, Pepcid 20 mg Oral Tablet - take 1 tablet by ORAL route every 12 hours for 10 days; 20 tablet, Zofran 4 mg Oral Tablet - take 1 tablet by ORAL route every 12 hours As needed; 20 tablet. and Forms are Medication Reconciliation Form, Thank You Letter, Antibiotic Education, Prescription Opioid Use. Follow up: Private Physician; When: 2 - 3 days; Reason: Recheck today's complaints, Continuance of care, Re-evaluation by your physician. Problem is new. Symptoms have improved. debbie
[2020-04-05 17:51] VITALS: TEMP 97; O2SAT 100
[2020-04-05 18:00] VITALS: BP 130/78
== END 2020-04-05 17:16 | disposition home or self-care (01) ==
LOC: ER 13:35
DX: R10.819 Abdominal tenderness, unspecified site (principal); I10 Essential (primary) hypertension
CPT/HCPCS: 36415; 74177; 80048; 80076; 81003; 81025; 83690; 85025; 96374; 99284; J2405; J7030; Q9967

== ENCOUNTER 2020-10-02 10:54 | Emergency (ER) | payer OTHER, SELFPAY ==
--- OUTSIDE RECORDS SUMMARY | 2020-10-02 10:57 | XMS REPORT | Continuity of Care Document ---
:1980 Author Organization [facility] t Address [address] [place] [address] [address] [place] [address] Care Team Providers Name Role Phone Ramo Cross Attending Clinician Problems This patient has no known problems. Allergies, Adverse Reactions, Alerts This patient has no known allergies or adverse reactions. Medications This patient has no known medications. Procedures This patient has no known procedures. 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 [id number] MATERNAL [id number] & CHILD [address] [place] [address] Results This patient has no known results.
[2020-10-02] MEDS ORDERED: CYCLOBENZAPRINE 10 MG TAB ONE (12:31)
[2020-10-02] MEDS ORDERED: KETOROLAC 30 MG/ML INJ ONE (12:31)
[2020-10-02] MEDS ORDERED: LIDOCAINE 4% PATCH ONE (12:32)
--- NOTE | 2020-10-02 13:06 | ER ---
Nurse's Notes [facility] Name: Lisbet Ma Age: 39 yrs Sex: Female : 1980 Arrival Date: 10/02/2020 Time: 10:59 Bed 19 Private MD: Diagnosis: Strain of muscle and tendon of front wall of thorax Presentation: 10/02 11:21 Chief complaint: Patient states: [place] tearing pain in her R breast area 3 weeks ago ll1 when moving a desk at her job. R breast/trunk pain off/on since. Lately, the pain is more constant. Pain increases while doing her job. PMS intact. Coronavirus screen: Client denies travel out of the [place] in the last 14 days. At this time, the client does not indicate any symptoms associated with coronavirus-19. Ebola Screen: Patient denies travel to an Ebola-affected area in the 21 days before illness onset. Initial Sepsis Screen: Does the patient meet any 2 criteria? No. Patient's initial sepsis screen is negative. Does the patient have a suspected source of infection? No. Patient's initial sepsis screen is negative. Risk Assessment: Do you want to hurt yourself or someone else? Patient reports no desire to harm self or others. Onset of symptoms was September 11, 2020. 11:21 Method Of Arrival: Ambulatory ll1 11:21 Acuity: RONAL 4 ll1 Historical: - Allergies: 11:21 NKA; ll1 - PMHx: 11:21 Colitis; gastritis; Hypertension; pre-diabetic; Hypothyroidism; ll1 - Immunization history:: Client reports receiving the 1st dose of the Covid vaccine, Flu vaccine is up to date. - Social history:: Smoking status: Patient denies any tobacco usage or history of. Screenin:22 Abuse screen: Denies threats or abuse. Nutritional screening: No deficits noted. bw Tuberculosis screening: No symptoms or risk factors identified. Fall Risk None identified. Assessment: 11:22 Pain: Complains of pain in right ribs that radiates into shoulder. bw 12:29 Reassessment: Patient appears in no apparent distress at this time. Patient and/or bw family updated on plan of care and expected duration. Pain level reassessed. Patient is alert, oriented x 3, equal unlabored respirations, skin warm/dry/pink. 13:22 Reassessment: No changes from previously documented assessment. Patient and/or family vg1 updated on plan of care and expected duration. Pain level reassessed. Patient is alert, oriented x 3, equal unlabored respirations, skin warm/dry/pink. Vital Signs: 11:21 BP 123 / 59; Pulse 84; Resp 17; Temp 97.9; Pulse Ox 93% ; Pain 8/10; ll1 11:22 BP 128 / 60; Pulse 89; Resp 18; Pulse Ox 96% ; bw 13:00 BP 126 / 62; Pulse 85; Resp 18; Pulse Ox 97% on R/A; vg1 ED Course: 10:59 Patient arrived in ED. mr 11:18 Solis Ibarra NP is PHCP. pm1 11:18 Erick Vance MD is Attending Physician. pm1 11:20 Arm band placed on Patient placed in an exam room, on a stretcher. ll1 11:22 Mikayla Thomas RN is Primary Nurse. bw 11:22 Call light in reach. Side rails up X 1. Pulse ox on. NIBP on. bw 11:22 No provider procedures requiring assistance completed. Patient did not have IV access bw during this emergency room visit. 11:23 Triage completed. ll1 13:05 Eron Nelson MD is Referral Physician. pm1 Administered Medications: 12:24 Drug: TORadol 30 mg Route: IM; Site: right deltoid; bw 12:25 Drug: Lidoderm 5 % (700 mg/patch) 1 patches Route: Topical; Site: affected area; bw 12:25 Drug: Flexeril (cyclobenzaprine) 10 mg Route: PO; bw Outcome: 13:05 Discharge ordered by . pm1 13:22 Discharged to home ambulatory. vg1 13:22 Condition: stable 13:22 Discharge instructions given to patient, Instructed on discharge instructions, follow up and referral plans. medication usage, Demonstrated understanding of instructions, follow-up care, medications, Prescriptions given X 3. 13:23 Patient left the ED. vg1 Signatures: Jennifer Jean mr Ibarra Solis, EDGE BLACKER EDGE BLACKER pm1 Meaghan Rodriguez RN RN vg1 Marshal Cortés RN RN 1 Mikayla Thomas RN RN
--- NOTE | 2020-10-02 13:06 | EDPHYS ---
Physician Documentation [facility] Name: Lisbet Ma Age: 39 yrs Sex: Female : 1980 Arrival Date: 10/02/2020 Time: 10:59 Bed 19 Private MD: ED Physician Erick Vance HPI: 10/02 11:26 This 39 yrs old Female presents to ER via Ambulatory with complaints of Arm pm1 Pain. 11:26 The patient or guardian complains of pain, that is acute. pm1 11:26 The patient or guardian reports chest pain that is located primarily in the anterior pm1 aspect of right upper chest and right breast. The pain does not radiate. Associated signs and symptoms: The patient has no apparent associated signs or symptoms, Pertinent negatives: abdominal pain, dizziness, nausea, shortness of breath, vomiting, numbness, tingling, weakness to right arm. The chest pain is described as sharp. Duration: The patient or guardian reports a single episode, that is still ongoing. Modifying factors: the symptoms are aggravated by Movement of right arm. Severity of pain: in the emergency department the pain is actually worse. The patient has not experienced similar symptoms in the past. 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 She was moving a desk with her right arm and then felt a popping sensation to her right breast area and right arm pit. Patient's pain is worsened with moving her right arm. Historical: - Allergies: 11:21 NKA; ll1 - PMHx: 11:21 Colitis; gastritis; Hypertension; pre-diabetic; Hypothyroidism; ll1 - Immunization history:: Client reports receiving the 1st dose of the Covid vaccine, Flu vaccine is up to date. - Social history:: Smoking status: Patient denies any tobacco usage or history of. ROS: 11:26 Constitutional: Negative for fever, chills, and weight loss. pm1 11:26 Respiratory: Negative for shortness of breath, cough, wheezing, and pleuritic chest pain, Abdomen/GI: Negative for abdominal pain, nausea, vomiting, diarrhea, and constipation, Back: Negative for injury and pain, MS/Extremity: Negative for injury and deformity, Skin: Negative for injury, rash, and discoloration. 11:26 Neuro: Negative for headache, weakness, numbness, tingling, and seizure. 11:26 Cardiovascular: Positive for chest pain, of the right breast and anterior aspect of right upper chest, Negative for palpitations. Exam: 11:26 Constitutional: This is a well developed, well nourished patient who is awake, alert, pm1 and in no acute distress. Head/Face: Normocephalic, atraumatic. 11:26 Back: No spinal tenderness. No costovertebral tenderness. Full range of motion. Skin: Warm, dry with normal turgor. Normal color with no rashes, no lesions, and no evidence of cellulitis. MS/ Extremity: Pulses equal, no cyanosis. Neurovascular intact. Full, normal range of motion. 11:26 Chest/axilla: Inspection: normal, Palpation: tenderness, of the anterior aspect of right upper chest and right lateral anterior chest, that totally reproduces the patient's complaints, pain reproduced with movement of right arm. 11:26 Cardiovascular: Exam negative for acute changes, Rate: normal, Rhythm: regular, Pulses: no pulse deficits are appreciated. 11:26 Respiratory: Exam negative for acute changes, respiratory distress, shortness of breath. 11:26 Neuro: Exam negative for acute changes, Orientation: is normal, Mentation: is normal, Motor: is normal, moves all fours. Vital Signs: 11:21 BP 123 / 59; Pulse 84; Resp 17; Temp 97.9; Pulse Ox 93% ; Pain 8/10; ll1 11:22 BP 128 / 60; Pulse 89; Resp 18; Pulse Ox 96% ; bw 13:00 BP 126 / 62; Pulse 85; Resp 18; Pulse Ox 97% on R/A; vg1 MDM: 11:22 Patient medically screened. pm1 12:54 Data reviewed: vital signs. Data interpreted: Pulse oximetry: on room air is 96 %. pm1 Interpretation: normal. Counseling: I had a detailed discussion with the patient and/or guardian regarding: the historical points, exam findings, and any diagnostic results supporting the discharge/admit diagnosis, the need for outpatient follow up, to return to the emergency department if symptoms worsen or persist or if there are any questions or concerns that arise at home. Administered Medications: 12:24 Drug: TORadol 30 mg Route: IM; Site: right deltoid; bw 12:25 Drug: Lidoderm 5 % (700 mg/patch) 1 patches Route: Topical; Site: affected area; bw 12:25 Drug: Flexeril (cyclobenzaprine) 10 mg Route: PO; bw Disposition: 13:28 Co-signature as Attending Physician, Erick Vance MD. rn Disposition: 10/02/20 13:05 Discharged to Home. Impression: Strain of muscle and tendon of front wall of thorax. - Condition is Stable. - Discharge Instructions: Muscle Strain. - Prescriptions for Lidoderm 5 % Topical adhesive patch,medicated - apply 1 patch by TRANSDERMAL route once daily As needed 12 hours on and 12 hours off in a 24 hour period; 30 Transdermal Patch. Tylenol- Codeine #3 300-30 mg Oral Tablet - take 2 tablets by ORAL route every 4-6 hours As needed; 20 tablet. Cyclobenzaprine 10 mg Oral Tablet - take 1 tablet by ORAL route every 8 hours As needed; 30 tablet. - Medication Reconciliation Form, Thank You Letter, Antibiotic Education, Prescription Opioid Use form. - Follow up: Emergency Department; When: As needed; Reason: Worsening of condition. Follow up: Private Physician; When: 2 - 3 days; Reason: Recheck today's complaints, Continuance of care, Re-evaluation by your physician. Follow up: Eron Nelson MD; When: 2 - 3 days; Reason: Recheck today's complaints, Continuance of care, Re-evaluation by your physician. - Problem is new. - Symptoms have improved. Signatures: Erick Vance MD MD rn Solis Ibarra, TRACEE WASHER CUTTER pm1 Meaghan Rodriguez RN RN 1 Marshal Cortés RN RN [facility] Mikayla Thomas RN RN Corrections: (The following items were deleted from the chart) 13:06 13:05 10/02/2020 13:05 Discharged to Home. Impression: Strain of muscle and tendon of pm1 front wall of thorax. Condition is Stable. Forms are Medication Reconciliation Form, Thank You Letter, Antibiotic Education, Prescription Opioid Use. Follow up: Emergency Department; When: As needed; Reason: Worsening of condition. Follow up: Private Physician; When: 2 - 3 days; Reason: Recheck today's complaints, Continuance of care, Re-evaluation by your physician. Problem is new. Symptoms have improved. pm1 13:23 13:06 10/02/2020 13:05 Discharged to Home. Impression: Strain of muscle and tendon of vg1 front wall of thorax. Condition is Stable. Forms are Medication Reconciliation Form, Thank You Letter, Antibiotic Education, Prescription Opioid Use. Follow up: Emergency Department; When: As needed; Reason: Worsening of condition. Follow up: Private Physician; When: 2 - 3 days; Reason: Recheck today's complaints, Continuance of care, Re-evaluation by your physician. Follow up: Dr. Eron Nelson; When: 2 - 3 days; Reason: Recheck today's complaints, Continuance of care, Re-evaluation by your physician. Problem is new. Symptoms have improved. pm1
[2020-10-02 13:28] VITALS: TEMP 97.9
[2020-10-02 13:30] VITALS: BP 126/62; O2SAT 97
== END 2020-10-02 13:23 | disposition home or self-care (01) ==
LOC: ER 10:54
DX: S29.011A Strain of muscle and tendon of front wall of thorax, initial encounter (principal); X58.XXXA Exposure to other specified factors, initial encounter; Y93.89 Activity, other specified; Y92.89 Other specified places as the place of occurrence of the external cause; Y99.8 Other external cause status; I10 Essential (primary) hypertension
CPT/HCPCS: 96372; 99283

== ENCOUNTER 2021-04-06 22:17 | Emergency (ER) | payer OTHER ==
[2021-04-06 23:54] LABS: Urine Blood 3+ (Negative); Urine Glucose Negative (Negative); Urine Protein Negative (Negative); Urine pH 5.5 (5.0-7.0)
[2021-04-07 01:22] LABS: Absolute Lymphocytes (CBC) 2.4 K/uL (0.7-4.9); Basophils % 0.7 % (0-1.3); Hematocrit 41.1 % (36.0-45.0); Lymphocytes % 22.4 % (15.3-44.8); MPV 8.5 fL (7.6-11.3); RBC Red Blood Cell Count 4.33 M/uL (3.86-4.86)
[2021-04-07 01:37] LABS: ALT/SGPT 23 U/L (12-78); AST/SGOT 17 U/L (15-37); Albumin 4.2 g/dL (3.4-5.0); Alkaline Phosphatase 110 U/L (45-117); BUN Blood Urea Nitrogen 23 mg/dL (7-18); Bicarbonate 27 mmol/L (21-32); Bilirubin Direct < 0.1 mg/dL (0-0.2); Bilirubin Total 0.4 mg/dL (0.2-1.0); Glucose Level 113 mg/dL (74-106); Lipase 170 U/L (73-393); Magnesium 2.4 mg/dL (1.8-2.4); Potassium 4.1 mmol/L (3.5-5.1); Protein, Total 8.2 g/dL (6.4-8.2); Sodium Level 138 mmol/L (136-145); Troponin I < 0.02 ng/mL (0.0-0.045)
[2021-04-07] MEDS ORDERED: ONDANSETRON 4 MG/2 ML VIAL ONE (01:39)
[2021-04-07] MEDS ORDERED: NA CHLORIDE 0.9% 1,000 ML ONE (01:40)
[2021-04-07] MEDS ORDERED: PANTOPRAZOLE 40 MG INJ ONE (01:40)
--- NOTE | 2021-04-07 03:20 | ER ---
Nurse's Notes [facility] Name: Lisbet Ma Age: 40 yrs Sex: Female : 1980 Arrival Date: 04/06/2021 Time: 22:19 Bed 10 Private MD: Diagnosis: Epigastric pain Presentation: 04/06 23:09 Chief complaint: Patient states: epigastric and back pain (rt side) started today. sj1 Coronavirus screen: Vaccine status: Patient reports receiving the 1st dose of the Covid vaccine. Ebola Screen: Patient negative for fever greater than or equal to 101.5 degrees Fahrenheit, and additional compatible Ebola Virus Disease symptoms Patient denies exposure to infectious person. Patient denies travel to an Ebola-affected area in the 21 days before illness onset. Initial Sepsis Screen: Does the patient meet any 2 criteria? No. Patient's initial sepsis screen is negative. Does the patient have a suspected source of infection? No. Patient's initial sepsis screen is negative. Risk Assessment: Do you want to hurt yourself or someone else? Patient reports no desire to harm self or others. Onset of symptoms was April 06, 2021. 23:09 Method Of Arrival: Ambulatory [facility] 23:09 Acuity: RONAL 3 sj1 Triage Assessment: 23:12 General: Appears in no apparent distress. Pain: Complains of pain in epigastric and sj1 back pain. EENT: No deficits noted. Neuro: No deficits noted. Cardiovascular: No deficits noted. Respiratory: No deficits noted. GI: Reports epigastric pain, nausea, vomiting. : No deficits noted. Derm: No deficits noted. Musculoskeletal: Reports pain in back. 23:15 General: Behavior is calm, cooperative. 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 - Social history:: Smoking status: Patient denies any tobacco usage or history of. Screenin:14 Abuse screen: Denies threats or abuse. Denies injuries from another. Nutritional sj1 screening: No deficits noted. Tuberculosis screening: No symptoms or risk factors identified. Fall Risk None identified. Assessment: 23:39 General: Appears in no apparent distress. Behavior is calm, cooperative, appropriate kg for age, quiet. Pain: Complains of pain in epigastric area, Right flank Pain currently is 8 out of 10 on a pain scale. at worst was 8 out of 10 on a pain scale. level that patient reports is acceptable is 3 out of 10 on a pain scale. Quality of pain is described as aching. Vital Signs: 23:08 BP 142 / 85; Pulse 90; Resp 18; Temp 98.2(O); Pulse Ox 100% on R/A; Weight 62.14 kg sj1 (R); Height 5 ft. 5 in. (165.10 cm); Pain 02/14; 04/07 03:40 BP 121 / 75; Pulse 87; Resp 18; Temp 98.1(O); Pulse Ox 100% on R/A; cc4 04/06 23:08 Body Mass Index 22.80 (62.14 kg, 165.10 cm) [facility] ED Course: 04/06 22:19 Patient arrived in ED. wm 23:12 Triage completed. sj1 23:14 Patient has correct armband on for positive identification. sj1 23:23 Juan Hutton PA is PHCP. cp 23:23 Jeanna Jacob MD is Attending Physician. cp 23:34 Karly Pittman, ROSS is Primary Nurse. kg 04/07 01:15 Patient IVP Zofran 4 mg \T\ Protonix 40 mg IVP; IV NS patent/infusing right AC with no cc4 s/sx's of infiltration. 01:15 No provider procedures requiring assistance completed. cc4 01:25 US Abdomen Limited: liver/gallbladder Sent. cc4 01:26 US Abdomen Limited: liver/gallbladder In Process Unspecified. EDMS 02:18 CT Abd/Pelvis - IV Contrast Only In Process Unspecified. EDMS 02:30 XRAY Chest (1 view) In Process Unspecified. EDMS 03:19 Bola Eason MD is Referral Physician. cp 03:40 IV discontinued, intact, bleeding controlled, No redness/swelling at site. Pressure cc4 dressing applied. Administered Medications: 00:15 Drug: NS 0.9% 1000 ml Route: IV; Rate: 1 bolus; Site: right antecubital; cc4 01:15 Drug: ProTONIX (pantoprazole) 40 mg Route: IVP; Site: right antecubital; cc4 03:40 Follow up: Response: No adverse reaction; Marked relief of symptoms cc4 01:15 Drug: Zofran (Ondansetron) 4 mg Route: IVP; Site: right antecubital; cc4 03:40 Follow up: Response: No adverse reaction; Marked relief of symptoms cc4 Outcome: 03:19 Discharge ordered by MD. cp 03:40 Discharged to home ambulatory, with significant other. cc4 03:40 Condition: improved 03:40 Discharge instructions given to patient, Instructed on discharge instructions, follow up and referral plans. medication usage, Demonstrated understanding of instructions, follow-up care, medications, Prescriptions given X 3. 03:44 Patient left the ED. cc4 Signatures: Dispatcher [employer] EDMS Juan Hutton PA PA cp Graham, Kristen, ROSS HAWKINS kg Kaylen Carballo Christie, RN RN cc4 Saranya Jimenez RN RN sj1
--- NOTE | 2021-04-07 03:20 | EDPHYS ---
Physician Documentation [facility] Name: Lisbet Ma Age: 40 yrs Sex: Female : 1980 Arrival Date: 04/06/2021 Time: 22:19 Bed 10 Private MD: ED Physician Jeanna Jacob HPI: 04/07 00:00 This 40 yrs old Female presents to ER via Ambulatory with complaints of cp Epigastric Pain, Back Pain. 00:00 The patient presents with abdominal pain in the epigastric area. Onset: The cp symptoms/episode began/occurred today. 00:00 The symptoms radiate to mid back area. cp 00:00 Associated signs and symptoms: Pertinent positives: nausea and vomiting, chest pain, cp Pertinent negatives: constipation, diarrhea, dysuria, fever, vomiting blood. The symptoms are described as constant. Modifying factors: the symptoms are aggravated by pressure. 00:00 Severity of pain: in the emergency department the pain is unchanged despite home cp interventions. 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 - Social history:: Smoking status: Patient denies any tobacco usage or history of. ROS: 04/07 00:05 Constitutional: Negative for body aches, chills, fever, poor PO intake. cp 00:05 Eyes: Negative for injury, pain, redness, and discharge. cp 00:05 Cardiovascular: Positive for chest pain, Negative for edema, palpitations. 00:05 Respiratory: Negative for cough, shortness of breath, wheezing. 00:05 Abdomen/GI: Positive for abdominal pain, nausea, of the epigastric area, Negative for vomiting, diarrhea, constipation, anorexia. 00:05 Back: Positive for radiated pain, of the mid back area. 00:05 : Negative for urinary symptoms. 00:05 Neuro: Negative for altered mental status, headache, numbness, weakness. 00:05 All other systems are negative. Exam: 00:10 Constitutional: The patient appears in no acute distress, alert, awake, cp non-diaphoretic, non-toxic, well developed, well nourished. 00:10 Head/Face: Normocephalic, atraumatic. cp 00:10 Eyes: Periorbital structures: appear normal, Conjunctiva: normal, no exudate, no injection, Sclera: no appreciated abnormality, Lids and lashes: appear normal, bilaterally. 00:10 ENT: External ear(s): are unremarkable, Nose: is normal, Posterior pharynx: Airway: no evidence of obstruction, patent. 00:10 Neck: ROM/movement: is normal, is supple, without pain, no range of motions limitations. 00:10 Chest/axilla: Inspection: normal, Palpation: is normal, no crepitus, no tenderness. 00:10 Cardiovascular: Rate: normal, Rhythm: regular, Heart sounds: murmur, not appreciated, Edema: is not appreciated, JVD: is not appreciated. 00:10 Respiratory: the patient does not display signs of respiratory distress, Respirations: normal, no use of accessory muscles, no retractions, labored breathing, is not present, Breath sounds: are clear throughout, no decreased breath sounds, no stridor, no wheezing. 00:10 Abdomen/GI: Inspection: abdomen appears normal, Palpation: soft, in all quadrants, mild abdominal tenderness, in the epigastric area, rebound tenderness, is not appreciated, involuntary guarding, is not appreciated. 00:10 Back: pain, that is mild, of the mid back area, ROM is normal. 00:10 Neuro: Orientation: is normal, Mentation: is normal, Motor: moves all fours, strength is normal, Gait: is steady, at a normal pace, without difficulty. Vital Signs: 04/06 23:08 BP 142 / 85; Pulse 90; Resp 18; Temp 98.2(O); Pulse Ox 100% on R/A; Weight 62.14 kg sj1 (R); Height 5 ft. 5 in. (165.10 cm); Pain 02/14; 04/07 03:40 BP 121 / 75; Pulse 87; Resp 18; Temp 98.1(O); Pulse Ox 100% on R/A; cc4 04/06 23:08 Body Mass Index 22.80 (62.14 kg, 165.10 cm) [facility] MDM: 04/06 23:45 Patient medically screened. cp 04/07 03:19 Data reviewed: vital signs, nurses notes, lab test result(s), EKG, radiologic studies, cp CT scan, plain films, ultrasound. 03:19 Differential diagnosis: Cholelithiasis, gastritis, pancreatitis, Peptic Ulcer Disease, cp Perf. Duodenal Ulcer, Perf. Gastric Ulcer, Pyelonephritis, Ureterolithiasis, urinary tract infection. Test interpretation: by ED physician or midlevel provider: ECG, plain radiologic studies. Counseling: I had a detailed discussion with the patient and/or guardian regarding: the historical points, exam findings, and any diagnostic results supporting the discharge/admit diagnosis, lab results, radiology results, the need for outpatient follow up, a pharmaceutical analyst, to return to the emergency department if symptoms worsen or persist or if there are any questions or concerns that arise at home. Response to treatment: the patient's symptoms have markedly improved after treatment, and as a result, I will discharge patient. 04/06 23:54 Order name: Urine Dipstick-Ancillary; Complete Time: 01:40 EDOR 04/06 23:55 Order name: Urine --Ancillary (enter results); Complete Time: 01:40 mw2 04/07 00:03 Order name: Basic Metabolic Panel; Complete Time: 01:40 cp 04/07 01:41 Interpretation: Normal except: GLUC 113; BUN 23; CRE 1.44; GFR 40. cp 04/07 00:03 Order name: CBC with Diff; Complete Time: 01:40 cp 04/07 00:03 Order name: Hepatic Function; Complete Time: 01:40 cp 04/07 03:19 Interpretation: GLOB 4.0; Reviewed. cp 04/07 00:03 Order name: Lipase; Complete Time: 01:40 cp 04/07 00:03 Order name: Troponin I; Complete Time: 01:40 cp 04/07 00:03 Order name: Magnesium; Complete Time: 01:40 cp 04/07 00:10 Order name: US Abdomen Limited: liver/gallbladder cp 04/07 01:43 Order name: CT Abd/Pelvis - IV Contrast Only cp 04/07 02:04 Order name: XRAY Chest (1 view) 04/06 23:55 Order name: Urine Dipstick-Ancillary (obtain specimen); Complete Time: 23:55 mw2 04/06 23:55 Order name: Urine Test (obtain specimen); Complete Time: 23:55 mw2 04/07 00:03 Order name: IV Saline Lock; Complete Time: 01: cp 04/07 00:03 Order name: Labs collected and sent; Complete Time: : cp 04/07 00:03 Order name: EKG; Complete Time: 00:04 cp 04/07 00:03 Order name: EKG - Nurse/Tech; Complete Time: 00:16 cp Administered Medications: 00:15 Drug: NS 0.9% 1000 ml Route: IV; Rate: 1 bolus; Site: right antecubital; cc4 01:15 Drug: ProTONIX (pantoprazole) 40 mg Route: IVP; Site: right antecubital; cc4 03:40 Follow up: Response: No adverse reaction; Marked relief of symptoms cc4 01:15 Drug: Zofran (Ondansetron) 4 mg Route: IVP; Site: right antecubital; cc4 03:40 Follow up: Response: No adverse reaction; Marked relief of symptoms cc4 Disposition: 04:33 Co-signature as Attending Physician, Jeanna Jacob MD PA/SUPERVISOR [employer]'s history reviewed, ma2 patient interviewed, and examined. I agree with assessment and care plan and confirm the diagnosis (es) above. Disposition Summary: 04/07/21 03:19 Discharge Ordered Location: Home cp Problem: new cp Symptoms: have improved cp Condition: Stable cp Diagnosis - Epigastric pain cp Followup: cp - With: Bola Eason MD - When: 2 - 3 days - Reason: Recheck today's complaints Discharge Instructions: - Discharge Summary Sheet cp - Abdominal Pain, Adult cp - Form - Return To Work cc4 Forms: - Medication Reconciliation Form cp - Thank You Letter cp - Antibiotic Education cp - Prescription Opioid Use cp - Work release form cc4 Prescriptions: - Carafate 1 gram Oral Tablet - take 1 tablet by ORAL route 4 times per day take on an empty stomach, beginning cp on waking and last dose at bedtime. Dissolve tablet in small amount warm water prior to ingestion; 100 tablet; Refills: 0, Product Selection Permitted - Protonix 40 mg Oral Tablet - take 1 tablet by ORAL route once daily; 30 tablet; Refills: 0, Product cp Selection Permitted - Zofran 4 mg Oral Tablet - take 1 tablet by ORAL route every 12 hours As needed; 20 tablet; Refills: 0, cp Product Selection Permitted Signatures: Dispatcher [employer] Juan Duncan PA PA cp Alzahri, Mohammad, MD MD ma2 Naomi Ramirez 2 Karin Webb RN RN cc4 Saranya Jimenez RN RN sj1
[2021-04-07 03:50] VITALS: O2SAT 100
[2021-04-07 03:51] VITALS: BP 121/75; TEMP 98.1
--- NOTE | 2021-04-07 07:20 | RAD REPORT ---
EXAM DESCRIPTION: RAD - Chest Single View - 04/07/2021 2:30 am CLINICAL HISTORY: epigastric pain COMPARISON: Chest Pa And Lat (2 Views) dated 09/09/2017 FINDINGS: Lines: None. Lungs: No evidence of edema or pneumonia. Calcified nodules in left upper lobe. Pleural: No significant pleural effusions or pneumothorax. Cardiac: The heart size is within normal limits. Bones: No acute fractures. Other: IMPRESSION: No acute cardiopulmonary disease.
--- NOTE | 2021-04-07 14:08 | RAD REPORT ---
EXAM DESCRIPTION: CT - Abdomen Pelvis W Contrast - 04/07/2021 6:35 am COMPARISON: None. CLINICAL HISTORY: [facility] MAIN ABD PAIN TECHNIQUE: CT of the abdomen and pelvis was acquired with IV contrast material. Coronal and sagitt al reconstructions were obtained. Automated exposure control was utilized on this examination as a dose lowering technique. FINDINGS: Lung bases: A calcified granuloma is noted in the left lower lobe. Otherwise, clear lung b ases. Liver: Normal. Gallbladder and biliary: Normal gallbladder. Unremarkable biliary tree. Pancreas: Normal. Spleen: Normal. Adrenal glands: Normal adrenal glands. Kidneys: Normal kidneys Stomach and Small Bowel: The stomach and small bowel are normal. Urinary bladder: Normal. Uterus and Adnexa: IUD in place. Otherwise, unremarkable. Colon and Appendix: The colon is unremarkable. No evidence of appendicitis. Retroperitoneum and lymph nodes: Normal. Vascular: Unremarkable. Peritoneal cavity: No ascites or free air. Musculoskeletal and soft tissues: Small fat-containing periumbilical hernia. No aggressive bone lesio ns. No compression fracture. IMPRESSION: No acute intra-abdominal abnormality. Electronically signed by: Killian Tompkins MD 04/07/2021 2:47 AM CDT Due to temporary technical issues with the PACS/Fluency reporting system, reports are being signed by the in house radiologists without review as a courtesy to insure prompt reporting. The interpreting radiologist is fully responsible for the content of the report.
--- NOTE | 2021-04-07 18:07 | RAD REPORT ---
EXAM DESCRIPTION: US - Abdomen Exam Limited - 04/07/2021 1:26 am CLINICAL HISTORY: 40 years, Female, EPIGASTRIC PAIN COMPARISON: None. TECHNIQUE: Utilizing a curved array transducer, real-time ultrasound evaluation of the abdominal vis cera was performed. Color Doppler imaging was used to assess vascular flow. FINDINGS: The liver demonstrate to be within normal limits. The gallbladder demonstrate to be within normal limits. No gallbladder stones were seen. No peric holecystic fluid was identified. The gallbladder wall is in the upper normal limits measuring 3 mm. T he common bile duct measures 6 mm. No intra or extrahepatic biliary duct dilatation was identified. There is no evidence for free fluid within the upper abdomen. IMPRESSION: LIMITED EVALUATION OF THE GALLBLADDER DEMONSTRATE NO GROSS ABNORMALITIES. Electronically signed by: Trent Hughes MD 04/07/2021 1:41 AM CDT Due to temporary technical issues with the PACS/Fluency reporting system, reports are being signed by the in house radiologists without review as a courtesy to insure prompt reporting. The interpreting radiologist is fully responsible for the content of the report.
== END 2021-04-07 03:44 | disposition home or self-care (01) ==
LOC: ER 22:17
DX: R10.13 Epigastric pain (principal); I10 Essential (primary) hypertension
CPT/HCPCS: 85025; 80048; 36415; 83735; 81025; 80076; 81003; 84484; 83690; 74177; 71045; 76705; 96375; 96374; 99283; Q9967; C9113; J7030; J2405

== ENCOUNTER 2022-07-09 12:25 | Emergency (ER) | payer SELFPAY ==
--- OUTSIDE RECORDS SUMMARY | 2022-07-09 12:32 | XMS REPORT | Continuity of Care Document ---
:1980 Author Organization [facility] t Address [address] [place] [address] Care Team Providers Name Role Phone Osiel Maradiaga Primary Care Physician [phone] Doctor Unassigned, [place] Attending Clinician Unavailable HANNAH BAKER Attending Clinician Unavailable Hannah Baker MD Attending Clinician Referred, Self Attending Clinician Unavailable JENNY MANZANOHCande Attending Clinician Unavailable Jenny Manzano MD Attending Clinician Daina Bhakta Attending Clinician [phone] DAINA JOHNSON Attending Clinician Unavailable Hannah Cross Attending Clinician HANNAH BAKER Attending Clinician Unavailable Osiel Maradiaga Attending Clinician OSIEL VIVAS Attending Clinician Unavailable Guera Baker DO Attending Clinician Visit, [facility] Att[facility]ician Unavailable Naveed Daley MD Attending Clinician HANNAH BAKER Admitting Clinician Unavailable Referred, Self Admitting Clinician Unavailable JENNY MANZANO Admitting Clinician Unavailable Physician, No Primary or Family Admitting Clinician Unavaila ble Payers Payer Name Policy Type Policy Number Effective Date Expiration Date Mary FAJARDO [id number] 2020 NON-CONTRACT 00:00:00 GENERIC Problems Condition Condition Condition Status Onset Resolution Last Treating Co mments Source Name Details Category Date Date Treatment Clinician Date Breast Breast Disease Active Overview: Univer s cyst cyst 8 Formattin ity of 00:00: g of this [place] note Medical might be Branch different from the original. mammo from [facility] 01-17-22Bi lateral cystsTher e is no sonograph ic evidence of malignanc yRoutine mammo in 1 year History of History of Disease Active U nivers breast breast 3- ity of surgery surgery 00:00: [place] [facility] Hyperthyro Hyperthyro Disease Active U nivers idism idism 4-30 ity of 00:00: [place] [facility] BMI BMI Disease Active 2019- Univers 25.0-25.9, 25.0-25.9, 4-30 it y of adult adult 00:00: [place] [facility] Encounter Encounter Disease Active Overview: Univers for IUD for IUD 4-10 Formattin ity o f removal removal 00:00: g of this [place] note Medical might be Branch different from the original. paragard 05/2020 Essential Essential Disease Active Overview: Univers hypertensi hypertensi 6-28 Formattin ity of on on 00:00: g of this [place] note Medical might be Branch different from the original. 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 Social History Social Habit Start Date Stop Date Quantity Comments Source Alcohol intake 2021-12-29 2021-12-29 0 /d University of 00:00:00 00:00:00 [facility] Branch Exposure to 2021-12-18 2021-12-28 Not sure [facility]-CoV-2 00:00:00 11:14:00 [facility] (event) Branch Tobacco use and 2012-11-27 2012-11-27 Smokeless tobacco Un iversity of exposure 00:00:00 00:00:00 non-user [facility] Sex Assigned At [birth year] Universit y of 00:00:00 00:00:[address] [facility] Smoking Status Start Date Stop Date Source Never smoked tobacco [facility] Medications Ordered Filled Start Stop Current Ordering Indication Dosage Frequency Signature Comments Components Source Medication Medication Date Date Medication? Clinician (SIG) Name Name TAKE 10 ML 2021-1 No EVERY 4-6 0-06 HOURS 00:00: NEEDED 00 levothyroxi 2022-0 No 1mcg ne 75 mcg 5-01 tablet 00:00: 00 levothyroxi 2022-0 No 1mcg ne 75 mcg 5-01 tablet 00:00: 00 lisinopril 2-0 No 1mg 10 mg 4-28 tablet 00:00: 00 levothyroxi 2022-0 No 1mcg ne 75 mcg 4-28 tablet 00:00: 00 Dose 2022-0 No Unknown 4-28 00:00: 00 Dose 2022-0 No Unknown 4-28 00:00: 00 Dose 2022-0 No Unknown 4-28 00:00: 00 Dose 2022-0 No Unknown 4-28 00:00: 00 Dose 2022-0 No Unknown 4-28 00:00: 00 Dose 2022-0 No Unknown 4-28 00:00: 00 Dose 2022-0 No Unknown 4-28 00:00: 00 Dose 2022-0 No Unknown 4-28 00:00: 00 Dose 2022-0 No Unknown 4-28 00:00: 00 Dose 2022-0 No Unknown 4-28 00:00: 00 Dose 2022-0 No Unknown 4-28 00:00: 00 Dose 2022-0 No Unknown 4-28 00:00: 00 Dose 2022-0 No Unknown 4-28 00:00: 00 Dose 2022-0 No Unknown 4-28 00:00: 00 Dose 2022-0 No Unknown 4-28 00:00: 00 Dose 2022-0 No Unknown 4-28 00:00: 00 Dose 2022-0 No Unknown 4-28 00:00: 00 Dose 2022-0 No Unknown 4-28 00:00: 00 Dose 2022-0 No Unknown 4-28 00:00: 00 Dose 2022-0 No Unknown 4-28 00:00: 00 Dose 2022-0 No Unknown 4-28 00:00: 00 Dose 2022-0 No Unknown 4-28 00:00: 00 lisinopril 2-0 No 1mg 10 mg 4-28 tablet 00:00: 00 levothyroxi 2-0 No 1mcg ne 75 mcg 4-28 tablet 00:00: 00 Dose 2022-0 No Unknown 4-28 00:00: 00 Dose 2022-0 No Unknown 4-28 00:00: 00 Dose 2022-0 No Unknown 4-28 00:00: 00 Dose 2022-0 No Unknown 4-28 00:00: 00 Dose 2022-0 No Unknown 4-28 00:00: 00 Dose 2022-0 No Unknown 4-28 00:00: 00 Dose 2022-0 No Unknown 4-28 00:00: 00 Dose 2022-0 No Unknown 4-28 00:00: 00 Dose 2022-0 No Unknown 4-28 00:00: 00 Dose 2022-0 No Unknown 4-28 00:00: 00 Dose 2022-0 No Unknown 4-28 00:00: 00 Dose 2022-0 No Unknown 4-28 00:00: 00 Dose 2022-0 No Unknown 4-28 00:00: 00 Dose 2022-0 No Unknown 4-28 00:00: 00 Dose 2022-0 No Unknown 4-28 00:00: 00 Dose 2022-0 No Unknown 4-28 00:00: 00 Dose 2022-0 No Unknown 4-28 00:00: 00 Dose 2022-0 No Unknown 4-28 00:00: 00 Dose 2022-0 No Unknown 4-28 00:00: 00 Dose 2022-0 No Unknown 4-28 00:00: 00 Dose 2022-0 No Unknown 4-28 00:00: 00 Dose 2022-0 No Unknown 4-28 00:00: 00 Bromfed DM 2021-0 No 10mg/5 2 mg-30 1-07 mL mg-10 mg/5 00:00: mL oral 00 syrup Bromfed DM 2021-0 No 10mg/5 2 mg-30 1-07 mL mg-10 mg/5 00:00: mL oral 00 syrup lisinopril 2020- Yes 10mg Take 10 mg U nivers 10 mg 2-06 by mouth ity of tablet 08:55: daily. [address] lisinopril 2020-07 Yes 10mg Take 10 mg U nivers 10 mg 2-06 by mouth ity of tablet 08:55: daily. [address] lisinopril 2020-07 Yes 10mg Take 10 mg U nivers 10 mg 2-06 by mouth ity of tablet 08:55: daily. [address] Dose 2020-07 No Unknown 0-31 00:00: 00 Dose 2020-07 No Unknown 0-31 00:00: 00 levothyroxi 2020-07 No 1mcg ne 75 mcg 0-27 tablet 00:00: 00 levothyroxi 2020-07 No 1mcg ne 75 mcg 0-27 tablet 00:00: 00 lidocaine 4 2020-07 No 1% % topical 0-07 patch 00:00: 00 lidocaine 4 2020-07 No 1% % topical 0-07 patch 00:00: 00 pantoprazol 2020-07 Yes 40mg Take 40 mg Univers e 40 mg EC 0-01 by mouth ity o f tablet 00:00: daily. [address] ondansetron 2020-07 Yes TAKE 1 Univ ers 4 mg tablet 0-01 TABLET BY ity of 00:00: MOUTH [place] [address] EVERY 12 Medical HOURS Branch NEEDED pantoprazol 2020-07 Yes 40mg Take 40 mg Univers e 40 mg EC 0-01 by mouth ity o f tablet 00:00: daily. [address] ondansetron 2020-07 Yes TAKE 1 Univ ers 4 mg tablet 0-01 TABLET BY ity of 00:00: MOUTH [place] [address] EVERY 12 Medical HOURS Branch NEEDED pantoprazol 2020-07 Yes 40mg Take 40 mg Univers e 40 mg EC 0-01 by mouth ity o f tablet 00:00: daily. [address] ondansetron 2020-07 Yes TAKE 1 Univ ers 4 mg tablet 0-01 TABLET BY ity of 00:00: MOUTH [place] [address] EVERY 12 Medical HOURS Branch NEEDED Dose 2020-07 No Unknown 0-01 00:00: 00 Dose 1 No Unknown 0-01 00:00: 00 levothyroxi 2020-0 No 1mcg ne 75 mcg 7-15 tablet 00:00: 00 levothyroxi 2021-0 No 1mcg ne 75 mcg 7-15 tablet 00:00: 00 Dose 2021-0 No Unknown 4-16 00:00: 00 Dose 2021-0 No Unknown 4-16 00:00: 00 levothyroxi 2021-0 No 1mcg ne 75 mcg 4-10 tablet 00:00: 00 Vitamin D3 2021-0 No 1(1,000 25 mcg 4-10 unit) (1,000 00:00: unit) 00 capsule levothyroxi 2021-0 No 1mcg ne 75 mcg 4-10 tablet 00:00: 00 Vitamin D3 2021-0 No 1(1,000 25 mcg 4-10 unit) (1,000 00:00: unit) 00 capsule lisinopril 2021-0 No 1mg 10 mg 4-08 tablet 00:00: 00 famotidine 2021-0 No 1mg 20 mg 4-08 tablet 00:00: 00 levothyroxi 2021-0 No 1mcg ne 50 mcg 4-08 tablet 00:00: 00 lisinopril 2021-0 No 1mg 10 mg 4-08 tablet 00:00: 00 famotidine 2021-0 No 1mg 20 mg 4-08 tablet 00:00: 00 levothyroxi 2021-0 No 1mcg ne 50 mcg 4-08 tablet 00:00: 00 levothyroxi 2020-0 No 1mcg ne 50 mcg 9-24 tablet 00:00: 00 levothyroxi 2020-0 No 1mcg ne 50 mcg 9-24 tablet 00:00: 00 famotidine 2020-0 No 1mg 20 mg 7-23 tablet 00:00: 00 famotidine 2020-0 No 1mg 20 mg 7-23 tablet 00:00: 00 famotidine 2020-0 No 1mg 20 mg 7-23 tablet 00:00: 00 famotidine 2020-0 No 1mg 20 mg 7-23 tablet 00:00: 00 prednisone 2020-0 No 1mg 20 mg 7-22 tablet 00:00: 00 levothyroxi 2020-0 No 1mcg ne 50 mcg 7-22 tablet 00:00: 00 Zyrtec 10 2020-0 No 1mg mg capsule 7-22 00:00: 00 amoxicillin 2020-0 No 1mg 500 mg 7-22 capsule 00:00: 00 prednisone 2020-0 No 1mg 20 mg 7-22 tablet 00:00: 00 levothyroxi 2020-0 No 1mcg ne 50 mcg 7-22 tablet 00:00: 00 Zyrtec 10 2020-0 No 1mg mg capsule 7-22 00:00: 00 amoxicillin 2020-0 No 1mg 500 mg 7-22 capsule 00:00: 00 Zyrtec 10 2020-0 No 1mg mg capsule 6-17 00:00: 00 Zyrtec 10 2020-0 No 1mg mg capsule 6-17 00:00: 00 levothyroxi 2020-0 No 1mcg ne 50 mcg 5-22 tablet 00:00: 00 levothyroxi 2020-0 No 1mcg ne 50 mcg 5-22 tablet 00:00: 00 levothyroxi 2020-0 No 1mcg ne 88 mcg 4-23 tablet 00:00: 00 levothyroxi 2020-0 No 1mcg ne 88 mcg 4-23 tablet 00:00: 00 levothyroxi 2020-0 No 1mcg ne 100 mcg 3-30 tablet 00:00: 00 Vitamin D2 2020-0 No 1(50,00 1,250 mcg 3-30 0 unit) (50,000 00:00: unit) 00 capsule levothyroxi 2020-0 No 1mcg ne 100 mcg 3-30 tablet 00:00: 00 Vitamin D2 2020-0 No 1(50,00 1,250 mcg 3-30 0 unit) (50,000 00:00: unit) 00 capsule Augmentin 2020-0 No 1mg 875 mg-125 3-19 mg tablet 00:00: 00 Augmentin 2020-0 No 1mg 875 mg-125 3-19 mg tablet 00:00: 00 lisinopril 2020-0 No 1mg 10 mg 3-05 tablet 00:00: 00 amoxicillin 2020-0 No 1mg 500 mg 3-05 capsule 00:00: 00 lisinopril 2020-0 No 1mg 10 mg 3-05 tablet 00:00: 00 amoxicillin 2020-0 No 1mg 500 mg 3-05 capsule 00:00: 00 lisinopril 2019-1 No 1mg 10 mg 1-25 tablet 00:00: 00 lisinopril 2019-1 No 1mg 10 mg 1-25 tablet 00:00: 00 lisinopril 2019-0 No 1mg 10 mg 2-05 tablet 00:00: 00 cephalexin 2019-0 No 1mg 500 mg 2-05 capsule 00:00: 00 lisinopril 2019-0 No 1mg 10 mg 2-05 tablet 00:00: 00 cephalexin 2019-0 No 1mg 500 mg 2-05 capsule 00:00: 00 Vitamin D2 2019-0 No 1unit 50,000 unit 1-14 capsule 00:00: 00 Vitamin D2 2019-0 No 1unit 50,000 unit 1-14 capsule 00:00: 00 lisinopril 2018-1 No 1mg 10 mg 2-20 tablet 00:00: 00 lisinopril 2018-1 No 1mg 10 mg 2-20 tablet 00:00: 00 lisinopril 2017-0 No 1mg 10 mg 9-14 tablet 00:00: 00 lisinopril 2017-0 No 1mg 10 mg 9-14 tablet 00:00: 00 lisinopril 2015-1 No 1mg 10 mg 0-26 tablet 00:00: 00 lisinopril 2015-1 No 1mg 10 mg 0-26 tablet 00:00: 00 lisinopril 2015-1 No 1mg 10 0-25 mg-hydrochl 00:00: orothiazide 00 12.5 mg tablet lisinopril 2015-1 No 1mg 10 0-25 mg-hydrochl 00:00: orothiazide 00 12.5 mg tablet amoxicillin 2015-0 No 2mg 500 mg 8-01 capsule 00:00: 00 omeprazole 2016-0 No 1mg 20 mg 8-01 capsule,del 00:00: ayed 00 release clarithromy 2016-0 No 1mg dione 500 mg 8-01 tablet 00:00: 00 amoxicillin 2016-0 No 2mg 500 mg 8-01 capsule 00:00: 00 omeprazole 2016-0 No 1mg 20 mg 8-01 capsule,del 00:00: ayed 00 release clarithromy 2016-0 No 1mg dione 500 mg 8-01 tablet 00:00: 00 lisinopril 2015-0 No 1mg 10 2-03 mg-hydrochl 00:00: orothiazide 00 12.5 mg tablet Vistaril 50 2015-0 No 1mg mg capsule 2-03 00:00: 00 lisinopril 2015-0 No 1mg 10 2-03 mg-hydrochl 00:00: orothiazide 00 12.5 mg tablet Vistaril 50 2015-0 No 1mg mg capsule 08-10 00:00: 00 clindamycin 2014- No 1mg 300 mg 0-27 capsule 00:00: 00 clindamycin 2014-1 No 1mg 300 mg 0-27 capsule 00:00: 00 lisinopril 2014-07 No 1mg 10 0-09 mg-hydrochl 00:00: orothiazide 12.5 mg tablet lisinopril 2014-07 No 1mg 10 0-09 mg-hydrochl 00:00: orothiazide 12.5 mg tablet lisinopril 0 No 1mg 10 9-17 mg-hydrochl 00:00: orothiazide 12.5 mg tablet lisinopril 2014-0 No 1mg 10 9-17 mg-hydrochl 00:00: orothiazide 12.5 mg tablet lisinopril 0 No 1mg 10 1-15 mg-hydrochl 00:00: orothiazide 12.5 mg tablet lisinopril 0 No 1mg 10 1-15 mg-hydrochl 00:00: orothiazide 00 12.5 mg tablet Immunizations Ordered Filled Immunization Date Status Comments [facility] e Immunization Name Name Influenza Virus 2020-04-21 Completed Universit y of Vaccine Quad .5 mL 00:00:00 [facility] 6+ [place] Branch Influenza Virus 2020-04-21 Completed Universit y of Vaccine Quad .5 mL 00:00:00 [facility] 6+ [place] Branch Influenza Virus 2020-04-21 Completed Universit y of Vaccine Quad .5 mL 00:00:00 [facility] 6+ [place] Branch Influenza Virus 2019-05-27 Completed Universit y of Vaccine Quad .5 mL 00:00:00 [facility] 6+ MO Branch Influenza Virus 2019-05-27 Completed Universit y of Vaccine Quad .5 mL 00:00:00 [facility] 6+ MO Branch Influenza Virus 2019-05-27 Completed Universit y of Vaccine Quad .5 mL 00:00:00 [facility] 6+ [place] Branch TDAP 2013-06-26 Completed University 00:00:[address] [facility] TDAP 2013-06-26 Completed [facility] 00:00:[address] [facility] TDAP 2013-06-26 Completed [facility] 00:00:[address] [facility] Influenza Virus 2013-03-26 Completed Universit y of Vaccine 00:00:[address] [facility] Influenza Virus 2013-03-26 Completed Universit y of Vaccine 00:00:[address] [facility] Influenza Virus 2013-03-26 Completed Universit y of Vaccine 00:00:[address] [facility] Rubella 2007-03-21 Completed University of 00:00:[address] [facility] Rubella 2007-03-21 Completed University of 00:00:[address] [facility] Rubella 2007-03-21 Completed University of 00:00:[address] [facility] Td 1998-07-08 Completed University of 00:00:[address] [facility] Td 1998-07-08 Completed University of 00:00:[address] [facility] Td 1998-07-08 Completed University of 00:00:[address] [facility] Vital Signs Vital Name Observation Time Observation Value Comments Source BP Systolic 2022-04-12 13:37:00 119 mm[Hg] BP Diastolic 2022-04-12 13:37:00 82 mm[Hg] Weight Measured 2022-04-12 13:37:00 147.00 pounds Height Measured 2022-04-12 13:37:00 65.00 inches Body Temperature 2022-04-12 13:37:00 98.30 degrees Heart Rate 2022-04-12 13:37:00 96.00 /min Respiratory Rate 2022-04-12 13:37:00 18.00 /min BP Systolic 2022-03-20 13:24:00 109 mm[Hg] BP Diastolic 2022-03-20 13:24:00 67 mm[Hg] Weight Measured 2022-03-20 13:24:00 146.00 pounds Height Measured 2022-03-20 13:24:00 65.00 inches Body Temperature 2022-03-20 13:24:00 97.60 degrees Heart Rate 2022-03-20 13:24:00 89.00 /min Respiratory Rate 2022-03-20 13:24:00 BP Systolic 2021-11-02 08:28:00 111 mm[Hg] BP Diastolic 2021-11-02 08:28:00 71 mm[Hg] Weight Measured 2021-11-02 08:28:00 140.00 pounds Height Measured 2021-11-02 08:28:00 65.00 inches Body Temperature 2021-11-02 08:28:00 98.00 degrees Heart Rate 2021-11-02 08:28:00 85.00 /min Respiratory Rate 2021-11-02 08:28:00 BP Systolic 2021-08-01 10:13:00 112 mm[Hg] BP Diastolic 2021-08-01 10:13:00 75 mm[Hg] Weight Measured 2021-08-01 10:13:00 137.80 pounds Height Measured 2021-08-01 10:13:00 65.00 inches Body Temperature 2021-08-01 10:13:00 98.20 degrees Heart Rate 2021-08-01 10:13:00 81.00 /min Respiratory Rate 2021-08-01 10:13:00 BP Systolic 2021-05-03 09:23:00 103 mm[Hg] BP Diastolic 2021-05-03 09:23:00 59 mm[Hg] Weight Measured 2021-05-03 09:23:00 134.40 pounds Height Measured 2021-05-03 09:23:00 65.00 inches Body Temperature 2021-05-03 09:23:00 98.00 degrees Heart Rate 2021-05-03 09:23:00 84.00 /min Respiratory Rate 2021-05-03 09:23:00 21.00 /min BP Systolic 2021-04-13 14:28:00 123 mm[Hg] BP Diastolic 2021-04-13 14:28:00 85 mm[Hg] Weight Measured 2021-04-13 14:28:00 134.80 pounds Height Measured 2021-04-13 14:28:00 65.00 inches Body Temperature 2021-04-13 14:28:00 98.50 degrees Heart Rate 2021-04-13 14:28:00 92.00 /min Respiratory Rate 2021-04-13 14:28:00 BP Systolic 2021-04-10 10:28:00 120 mm[Hg] BP Diastolic 2021-04-10 10:28:00 78 mm[Hg] Weight Measured 2021-04-10 10:28:00 137.00 pounds Height Measured 2021-04-10 10:28:00 65.00 inches Body Temperature 2021-04-10 10:28:00 98.40 degrees Heart Rate 2021-04-10 10:28:00 90.00 /min Respiratory Rate 2021-04-10 10:28:00 17.00 /min BP Systolic 2021-03-31 15:43:00 136 mm[Hg] BP Diastolic 2021-03-31 15:43:00 82 mm[Hg] Weight Measured 2021-03-31 15:43:00 137.20 pounds Height Measured 2021-03-31 15:43:00 65.00 inches Body Temperature 2021-03-31 15:43:00 98.40 degrees Heart Rate 2021-03-31 15:43:00 98.00 /min Respiratory Rate 2021-03-31 15:43:00 17.00 /min BP Systolic 2021-03-29 10:02:00 119 mm[Hg] BP Diastolic 2021-03-29 10:02:00 71 mm[Hg] Weight Measured 2021-03-29 10:02:00 138.20 pounds Height Measured 2021-03-29 10:02:00 65.00 inches Body Temperature 2021-03-29 10:02:00 98.00 degrees Heart Rate 2021-03-29 10:02:00 96.00 /min Respiratory Rate 2021-03-29 10:02:00 BP Systolic 2021-01-19 08:26:00 122 mm[Hg] BP Diastolic 2021-01-19 08:26:00 85 mm[Hg] Weight Measured 2021-01-19 08:26:00 134.20 pounds Height Measured 2021-01-19 08:26:00 65.00 inches Body Temperature 2021-01-19 08:26:00 98.50 degrees Heart Rate 2021-01-19 08:26:00 70.00 /min Respiratory Rate 2021-01-19 08:26:00 BP Systolic 2020-10-13 08:05:00 114 mm[Hg] BP Diastolic 2020-10-13 08:05:00 75 mm[Hg] Weight Measured 2020-10-13 08:05:00 133.80 pounds Height Measured 2020-10-13 08:05:00 65.00 inches Body Temperature 2020-10-13 08:05:00 98.30 degrees Heart Rate 2020-10-13 08:05:00 77.00 /min Respiratory Rate 2020-10-13 08:05:00 18.00 /min Procedures Procedure Date / Time Performed Performing Clinician [facility] e EXTERNAL PROVIDER 2022-02-05 05:01:00 Doctor Unassigned, No [facility] [place] RECORDS Name Medical Branch EXTERNAL PROVIDER 2022-01-19 05:01:00 Doctor Unassigned, No Univ ersity [facility] RECORDS Name Medical Branch Ekg 2018-07-14 00:00:00 82482 Ecg Routine Ecg 2015-03-24 00:00:00 W/least 12 Lds W/i r Plan of Care Planned Activity Planned Date Details Comments Source Goal Plan of Care Note [code = 90601-7] Goal Plan of Care Note [code = 59425-8] Goal Plan of Care Note [code = 88391-7] Goal Plan of Care Note [code = 23425-7] Goal Plan of Care Note [code = 49241-4] Goal Plan of Care Note [code = 39150-8] Goal Plan of Care Note [code = 92853-4] Goal Plan of Care Note [code = 53675-3] Goal Plan of Care Note [code = 98597-3] Goal Plan of Care Note [code = 99439-1] Goal Plan of Care Note [code = 19243-3] Goal Plan of Care Note [code = 76130-1] Goal Plan of Care Note [code = 17172-9] Goal Plan of Care Note [code = 47218-4] Goal Plan of Care Note [code = 06463-3] Goal Plan of Care Note [code = 75288-1] Goal Plan of Care Note [code = 74126-9] Goal Plan of Care Note [code = 98800-9] Goal Plan of Care Note [code = 06708-9] Goal Plan of Care Note [code = 13971-1] Goal Plan of Care Note [code = 00942-6] Goal Plan of Care Note [code = 96821-5] Goal Plan of Care Note [code = 93805-1] Goal Plan of Care Note [code = 41876-6] Goal Plan of Care Note [code = 38478-8] Goal Plan of Care Note [code = 51433-4] Goal Plan of Care Note [code = 47367-1] Goal Plan of Care Note [code = 59365-8] Goal Plan of Care Note [code = 40197-8] Goal Plan of Care Note [code = 60979-1] Goal Plan of Care Note [code = 93299-8] Goal Plan of Care Note [code = 89765-3] Goal Plan of Care Note [code = 50289-6] Goal Plan of Care Note [code = 37555-7] Goal Plan of Care Note [code = 71365-9] Goal Plan of Care Note [code = 19949-8] Goal Plan of Care Note [code = 97607-2] Goal Plan of Care Note [code = 26085-2] Goal Plan of Care Note [code = 88214-5] Goal Plan of Care Note [code = 02524-8] Goal Plan of Care Note [code = 51144-8] Goal Plan of Care Note [code = 69083-2] Goal Plan of Care Note [code = 68086-4] Goal Plan of Care Note [code = 58283-3] Goal Plan of Care Note [code = 94460-8] Goal Plan of Care Note [code = 40599-1] Goal Plan of Care Note [code = 66734-2] Goal Plan of Care Note [code = 16354-7] Goal Plan of Care Note [code = 20982-6] Goal Plan of Care Note [code = 78992-3] Goal Plan of Care Note [code = 27167-7] Goal Plan of Care Note [code = 46490-6] Goal Plan of Care Note [code = 51861-4] Goal Plan of Care Note [code = 02447-6] Goal Plan of Care Note [code = 34568-5] Goal Plan of Care Note [code = 95004-1] Goal Plan of Care Note [code = 55289-6] Goal Plan of Care Note [code = 25411-3] Encounters Start End Encounter Admission Attending Care Care Encounter Source Date/Time Date/Time Type Type Clinicians Facility Department ID 2021-05-05 Emergency [facility] [id number] [facility]12 2022-04-12 Outpatient [facility] SFA [id number] Juan 13:31:38 13:31:38 1006 F Max 2022-04-12 2022-04-12 Outpatient [id number] 00:00:00 00:00:00 Visit [id number] 2022-03-20 2022-03-20 Outpatient [id number] 00:00:00 00:00:00 Visit [id number] 2022-02-05 2022-02-05 Orders Doctor NIKITA [id number] Univers 00:00:00 00:00:00 Only Unassigned, DENNISE 350.1.13.10 ity of [place] [facility] 4.2.7.2.686 Leonid as [phone] [address] 2022-01-19 2022-01-19 Orders Doctor NIKITA [id number] [facility] 00:00:00 00:00:00 Only Unassigned, DENNISE 350.1.13.10 ity of [place] [facility] 4.2.7.2.686 Leonid as [id number] [address] 2022-01-17 2022-01-17 Outpatient WALTER BAKER [facility] JO ANN [id number] [facility] 08:00:00 08:00:00 [facility]ANNAH [facility] 2022-01-15 2022-01-15 [facility] [id number] [facility] 00:00:00 00:00:00 Hannah NURSING TECHNICIAN [id number] it y of [facility] 4.2.7.2.686 Leonid as MATERNAL [phone] Med ical & CHILD [address] [place] [address] 2022-01-12 2022-01-12 Outpatient NARAYAN Glodstein JO ANN [id number] [facility] 12:00:00 12:00:00 [facility] 2021-12-29 2021-12-29 Outpatient Alonzo MANZANO [facility] [id number] [facility] 09:00:00 09:25:36 JENNY blancas [facility] 2021-12-29 2021-12-29 Office [facility] [id number] Univers 09:00:00 09:25:36 Visit Jenny Satnam THEO 350.1.13.10 ity [place] [id number] [place] dical [facility] 059 [facility] 2021-12-29 2021-12-29 Outpatient R JOSE JUAN [facility] [id number] Univers 09:00:00 09:25:36 SENDIL ity [facility] 2021-12-29 2021-12-29 Outpatient R JOSE JUAN [facility] [id number] Univers 09:00:00 09:00:00 [facility] 2021-12-28 [facility] [id number] Univers 16:00:00 16:33:08 Visit Daina Plasencia NURSING TECHNICIAN [id number] ity [facility] [id number] Leonid as MATERNAL [phone] Med ical & CHILD [address] [place] [address] 2021-12-28 2021-12-28 Outpatient R MANDA [facility] [id number] Univers 16:00:00 16:33:08 DAINA blancas o f [facility] 2021-12-28 2021-12-28 Outpatient R MANDA [facility] [id number] Univers 16:00:00 16:00:00 DAINA blancas o f [facility] 2021-12-28 2021-12-28 Orders Doctor [place] [id number] Univers 00:00:00 00:00:00 Only Unassigned, DENNISE [id number] ity of [place] R. [facility] 4.2.7.2.686 Leonid as [phone] [address] 2021-06-12 2021-06-12 Outpatient R JOSE JUAN [facility] [id number] Univers 09:00:00 09:38:41 SENDIL ity [facility] 2021-06-12 2021-06-12 [facility] 1.2.840.114 [id number] Univers 08:36:22 09:38:41 Visit Jenny VENEGAS 350.1.13.10 it[place] of [place] [phone] La dical NAL 059 [facility] 2021-06-12 2021-06-12 [facility] 1.2.840.114 [id number] Univers 00:00:00 00:00:00 (Out) Sendthierno VENEGAS 350.1.13.10 it[place] of [place] [phone] La dical NAL [address] [place] [address] 2021-06-12 2021-06-12 [facility] 1.2.840.114 [id number] Univers 00:00:00 00:00:00 (Out) Jenny VENEGAS 350.1.13.10 it[place] of [place] [phone] La dical NAL 059 [facility] 2021-05-19 2021-05-19 [facility] 1.2.955.029 [id number] Univers 00:00:00 00:00:00 Jenny VENEGAS 350.1.13.10 it[place] of [place] [phone] La dical NAL 9 [facility] 2021-05-10 2021-05-10 [facility] [id number] Univers 14:26:29 23:59:00 SENDIL ity of [facility] 2021-05-10 2021-05-10 [facility] 1.2.840.114 [id number] Univers 14:26:29 23:59:00 Encounter Jenny VENEGAS 350.1.13.10 it[place] [phone] La dical NAL 843 [facility] 2021-04-10 2021-04-10 Office [facility] 1.2.840.114 [id number] Univers 13:02:51 13:33:19 Visit Jenny Venegas 350.1.13.10 ity of [place].2.[place] Profess[place] [phone] La dic[address] 2021-04-10 2021-04-10 Outpatient R JOSE JUAN [facility] [id number] Univers 13:00:00 13:00:00 SENDIL ity of [facility] 2021-04-10 2021-04-10 Letter [facility] 1.2.840.114 [id number] Univers 00:00:00 00:00:00 (Out) Jenny Venegas 350.1.13.10 [place] of [place] Profess[place] [phone] [address] 2021-04-10 2021-04-10 Orders Doctor NIKITA 1.2.840.114 [id number] Univers 00:00:00 00:00:00 Only Unassigned, DENNISE 350.1.13.[address] ity [place] [facility] 4.2.7.2.686 Leonid as [phone] [address] 2021-03-01 2021-03-01 Telephone [facility] 1.2.840.114 [id number] Univers 00:00:00 00:00:00 Hannah Ralph NURSING TECHNICIAN 350.1.13.10 it y of [facility] 4.2.7.2.686 Leonid as MATERNAL [phone] Med ical & CHILD [address] [place] [address] 2021-02-28 2021-02-28 Office [facility] 1.2.224.012 [id number] Univers 08:24:49 09:16:09 Visit Hannah Ralph NURSING TECHNICIAN 350.1.13.10 it y of [facility] 4.2.7.2.686 Leonid as MATERNAL [phone] Med ical & CHILD [address] [place] [address] 2021-02-28 2021-02-28 Out[facility] [id number] Univers 08:15:00 08:15:00 HANNAH blancas of [facility] 2021-02-28 2021-02-28 Letter Samuel [facility] 1.2.858.061 [id number] Univers 00:00:00 00:00:00 (Out) Hannah Ralph NURSING TECHNICIAN 350.1.13.10 it y of REGIONAL 4.2.7.2.686 Leonid as MATERNAL [phone] [facility] ical & CHILD [address] [place] [address] 2021-02-28 2021-02-28 Letter Samuel [facility] 1.2.621.595 [id number] Univers 00:00:00 00:00:00 (Out) Hannah Ralph NURSING TECHNICIAN 350.1.13.10 it y of REGIONAL 4.2.7.2.686 Leonid as MATERNAL [phone] [facility] & CHILD [address] [place] [address] 2021-02-27 2021-02-27 Telephone Samuel [facility] 1.2.840.114 [id number] Univers 00:00:00 00:00:00 Hannah Ralph NURSING TECHNICIAN 350.1.13.10 it y of [facility] 4.2.7.2.686 Leonid as MATERNAL [phone] [facility] & CHILD [address] [place] [address] 2021-02-22 2021-02-22 Office Hannah Baker [facility] 1.2.840. 114 [id number] Univers 08:31:54 09:08:46 Visit Osiel Vivas NURSING TECHNICIAN 350.1.13.10 ity of REGIONAL 4.2.7.2.686 Leonid as MATERNAL [phone] [facility] & [facility] [address] [place] [address] 2021-02-22 2021-02-22 Outpatient R ORTEGA [facility] [id number] Univers 08:15:00 08:15:00 OSIEL blancas o f [facility] 2021-02-22 2021-02-22 Orders Doctor NIKITA 1.2.840.114 [id number] Univers 00:00:00 00:00:00 Only Unassigned, DENNISE 350.1.13.[address] [place] [facility] 4.2.7.2.686 Leonid as [phone] [address] 2020-11-01 2020-11-01 Telephone [facility] 1.2.840.114 [id number] Univers 00:00:00 00:00:00 Hannah Ralph NURSING TECHNICIAN 350.1.13.10 it y of [facility] 4.2.7.2.686 Leonid as MATERNAL [phone] Med ical & CHILD [address] [place] [address] 2020-11-01 2020-11-01 Orders Doctor SHELTON 1.2.840.114 [id number] Univers 00:00:00 00:00:00 Only Unassigned, DENNISE 350.1.13.[address] [place] [facility] 4.2.7.2.686 Leonid as [phone] [address] 2020-10-24 2020-10-24 Outpatient WALTER BAKER [facility] KI072 [id number] [facility] 12:00:00 12:00:00 HANNAH rFench [facility] 2020-10-18 2020-10-18 [facility] 1.2.840.114 [id number] Univers 10:00:00 23:59:00 Encounter Hannah Venegas 350.1.13.10 ity [facility] 4.2.7.2.686 [phone] [address] [place] 2020-10-18 2020-10-18 Outpatient R [facility] [id number] Univers 00:00:00 00:00:00 HANNAH blancas [facility] 2020-10-18 2020-10-18 Telephone [facility] 1.2.840.114 [id number] Univers 00:00:00 00:00:00 Daina Plasencia NURSING TECHNICIAN 350.1.13.10 ity [facility] 4.2.7.2.686 Leonid as MATERNAL [phone] [facility] & CHILD [address] [place] [address] 2020-09-20 2020-09-20 Outpatient Alonzo [facility] [id number] Univers 00:00:00 00:00:00 HANNAH blancas [facility] 2020-09-06 2020-09-06 Office [facility] 1.2.434.236 [id number] 09:59:10 10:36:20 Visit Hannah Ralph NURSING TECHNICIAN 350.1.13.10 REGIONAL 4.2.7.2.686 MATERNAL [phone] & CHILD [address] [place] [address] 2020-09-06 2020-09-06 Office [facility] 1.2.649.768 [id number] Univers 09:59:10 10:36:20 Visit Hannah N NURSING TECHNICIAN 350.1.13.10 it y of [place] 4.2.7.2.686 Leonid as MATERNAL [phone] Med ical & CHILD [address] [place] [address] 2020-09-06 2020-09-06 Outpatient R [facility] [id number] Univers 10:00:00 10:00:00 HANNAH yonny [facility] 2020-07-31 2020-07-31 Refill [facility] 1.2.840.114 [id number] Univers 00:00:00 00:00:00 Osiel Rosado NURSING TECHNICIAN 350.1.13.10 ity of [facility] 4.2.7.2.686 Leonid as MATERNAL [phone] Med ical & CHILD [address] [place] [address] 2020-07-13 2020-07-13 Office [facility] 1.2.840.114 [id number] Univers 08:10:53 08:51:04 Visit Darlingcasbhavanito Rosado NURSING TECHNICIAN 350.1.13.10 ity of [place] 4.2.7.2.686 Leonid as MATERNAL [phone] [facility] ical & CHILD [address] [place] [address] 2020-07-13 2020-07-13 Outpatient R [facility] [id number] Univers 08:15:00 08:15:00 OSIEL da silvamark o f [facility] 2020-05-31 2020-05-31 Office [facility] 1.2.840.114 [id number] Univers 08:24:02 08:54:02 Visit Osiel Rosado NURSING TECHNICIAN 350.1.13.10 ity of [place] 4.2.7.2.686 Leonid as MATERNAL [phone] Med ical & CHILD [address] [place] [address] 2020-05-31 2020-05-31 Outpatient R ORTEGA [facility] [id number] Univers 08:30:00 08:30:00 OSIEL ity o f [facility] 2020-05-31 2020-05-31 Orders Doctor NIKITA 1.2.840.114 [id number] Univers 00:00:00 00:00:00 Only Unassigned, DENNISE 350.1.13.10 ity of [place] [facility] 4.2.7.2.686 Leonid as [phone] [address] 2020-04-25 2020-04-25 Emergency [facility] 1.2.840.114 [id number] Univers 11:24:00 13:07:00 Guera Venegas 350.1.13.10 ity of [place] 4[place]2.7.2.686 [place] [facility] [phone] [address] 2020-04-25 2020-04-25 Orders Doctor NIKITA 1.2.840.114 [id number] Univers 00:00:00 00:00:00 Only Unassigned, DENNISE 350.1.13.[address] [place] [facility] 4.2.7.2.686 Leonid as [phone] [address] 2020-04-21 2020-04-21 Nurse Visit, Primo Nurse [facility] 1.2 .840.114 [id number] Univers 09:15:40 09:32:53 Visit Osiel Vivas NURSING TECHNICIAN 350.1.13.10 ity of [facility] 4.2.7.2.686 Leonid as MATERNAL [phone] Med ical & CHILD 107 [facility] 2020-04-21 2020-04-21 Outpatient R [facility] [id number] Univers 08:30:00 08:30:[address] [facility] 2020-01-28 2020-01-28 Nurse Visit, Primo Nurse [facility] 1.2 .840.114 [id number] Univers 08:43:48 09:22:35 Visit Vivas Darlingsharif R NURSING TECHNICIAN 350.1.13.10 ity of [facility] 4.2.7.2.686 Leonid as MATERNAL [phone] Med ical & CHILD 107 [facility] 2020-01-28 2020-01-28 Outpatient R [facility] [id number] Univers 09:00:00 09:00:[address] [facility] 2019-11-10 2019-11-10 Outpatient R ORTEGA [facility] [id number] Univers 08:30:00 08:30:00 OSIEL da silvay o nadir [facility] 2019-11-05 2019-11-05 Office Ortega [facility] 1.2.840.114 [id number] Univers 08:32:17 09:21:05 Visit Osiel Rosado NURSING TECHNICIAN 350.1.13.10 ity of [facility] 4.2.7.2.686 Leonid as MATERNAL [phone] Med ical & CHILD [address] [place] [address] 2019-11-05 2019-11-05 Outpatient R ORTEGA [facility] [id number] Univers 08:30:00 08:30:00 OSIEL yonny o nadir [facility] 2019-08-18 2019-08-18 [facility] 1.2 .840.114 [id number] Univers 08:29:36 09:09:50 Visit Osiel Vivas Alonzo NURSING TECHNICIAN 350.1.13.10 ity of REGIONAL 4.2.7.2.686 Leonid as MATERNAL [phone] [facility] & [address] 2019-03-12 2019-03-12 Office Aidan [facility] Resident UNIVERSIT 1.2.8 40.114 [id number] Univers 13:09:03 14:19:18 Visit Naveed [facility] 350.1.13.10 ity of [place] 4[place]2.7.2.[address] [place] [phone] [facility] [address] [place] 2019-03-12 2019-03-12 Orders Doctor NIKITA 1.2.840.114 [id number] Univers 00:00:00 00:00:00 Only Unassigned, DENNISE 350.1.13.[address] [place] [facility] 4.2.7.2.[phone] [facility] [address] 2019-03-04 2019-03-04 Nurse Visit, Vipinchp Nurse [facility] 1.2 .840.114 [id number] Univers 08:28:59 08:46:23 Visit Osiel Vivas Alonzo NURSING TECHNICIAN 350.1.13.10 ity [facility] 4.2.7.2.686 Leonid as MATERNAL [phone] [facility] & CHILD [address] [place] [address] Results Test Description Test Time Test Comments Results Result Comments Source CULTURE, URINE 2022-04-14 SPECIMEN NUMBER: 10:17:56 [id number] CULTURE, URINE SPECIMEN NUMBER: [id number] SPECIMEN COMMENT: URINE SOURCE: URINE REPORT STATUS: FINAL ISOLATE NUMBER 1: IDENTIFICATION: 04/14/2022 10-50,000 CFU/ML BETA-STREPTOCOCCUS GROUP B ADDITIONAL OBSERVATIONS: PENICILLIN AND AMPICILLIN ARE DRUGS OF CHOICE FOR TREATMENT OF B-HEMOLYTIC STREPTOCOCCAL INFECTIONS. SUSCEPTIBILITY TESTING OF PENICILLIN AND OTHER B-LACTAMS APPROVED BY THE US FOOD AND DRUG ADMINISTRATION FOR TREATMENT OF B-HEMOLYTIC STREPTOCOCCAL INFECTIONS NEED NOT BE PERFORMED ROUTINELY. ADDITIONAL OBSERVATIONS: 04/14/2022 <10,000 CFU/ML UROGENITAL [place] PRESENT NO COMMON PATHOGENS CULTURE, URINE 2022-04-14 00:00:00 Test Item Value Reference Range Interpretation Comme nts CULTURE, URINE (test code = 72126) SPECIMEN NUMBER: [id number] CULTURE, [id number] 00:00:00 Test Item Value Reference Range Interpretation Comments CULTURE, URINE (test SPECIMEN NUMBER: code = 45645) [id number] VAGINAL PATHOGENS DNA [id number] 15:15:22 Test Item Value Reference Range Interpretation Comments MARLENE SPECIES (test NEGATIVE NEGATIVE code = 43452) G. VAGINALIS (test NEGATIVE NEGATIVE code = 70569) T. VAGINALIS (test NEGATIVE NEGATIVE UNLESS OTHERWISE code = 96662) INDICATED, ALL TESTING PERFORMED [facility] [address] [place] [address] 4 LABORATORY DIRE CTOR: CECILIA JACKSON M.D. CLIA NUMBER [id number] [place]. [id number] VAGINAL PATHOGENS DNA [id number] 00:00:00 Test Item Value Reference Range Interpretation Comments MARLENE SPECIES (test code = 54374) NEGATIVE G. VAGINALIS (test code = 68763) NEGATIVE T. VAGINALIS (test code = 36170) NEGATIVE VAGINAL PATHOGENS DNA [id number] 00:00:00 Test Item Value Reference Range Interpretation Comments MARLENE SPECIES (test code = 04115) NEGATIVE G. VAGINALIS (test code = 24267) NEGATIVE T. VAGINALIS (test code = 77452) NEGATIVE NOTE:2022-03-27 06:01:43 Test Item Value Reference Range Interpretation Comments NOTE: (test code = (NOTE) IN ACCOR DANCE WITH FEDERAL 998) GUIDELINES REQU IRING ALL VERBAL REQUESTS FOR LABORATORY TEST S TO BE ACCOMPANIED BY WRITTEN AUTHORIZATION W JAIMEIN 30 DAYS OF THIS REQUEST , PLEASE SIGN BELOW AND RETUR N A COPY OF THIS REPORT BY FAX TO THE LABORATORY SCAN ROSIE DEPARTMENT AT . PHYSICIAN'S SIG NATURE DATE UNLESS OTHERWISE INDIC ATED, ALL TESTING PERFORM ED ATCLINICAL PATHOLOGY [facility]. [address] [place] [address] LABORATOR Y DIRECTOR: CECILIA JACKSON M.D. CLIA NUMBER [id number] CAP ACCREDITATION N O. [id number] TSH, THIRD [id number] 00:28:21 Test Item Value Reference Range Interpretation Comments TSH, THIRD GENERATION (test code 3.200 UIU/ML 0.400-4.100 = 2821) TSH, THIRD GENERATION [ADDED]2022-03-27 00:00:00 Test Item Value Reference Range Interpretation Comments TSH, THIRD GENERATION (test code 3.200 UIU/ML = 2821) TSH, THIRD GENERATION [ADDED]2022-03-27 00:00:00 Test Item Value Reference Range Interpretation Comments TSH, THIRD GENERATION (test code 3.200 UIU/ML = 2821) TSH, THIRD GENERATION [ADDED]2022-03-27 00:00:00 Test Item Value Reference Range Interpretation Comments TSH, THIRD GENERATION (test code 3.200 UIU/ML = 2821) NOTE: [ADDED]2022-03-27 00:00:00 Test Item Value Reference Range Interpretation Comments NOTE: (test code = 998) (NOTE) COMPREHENSIVE METABOLIC [id number] 04:40:28 Test Item Value Reference Range Interpretation Comments GLUCOSE (test code = 93 MG/DL 70-99 2217) BUN (test code = 15 MG/DL 6-20 2207) CREATININE (test 1.34 MG/DL 0.60-1.30 H code = 221) eGFR (2020 CKD-EPI) 51 ML/MIN/1.73 >60 L The N KF-ASN (test code = 49272) Taskforc e recommends use of Cystatin C to confirm eGFR inadults at ris k for CKD. [facility] offers eGFR with Cystatin C-Creatinineusi ng the 2020 CKD-EP I eGFR_creat-cyst at equation (order code 3057) toincreas e the accuracy of estimated GFR. For more informatio n, contactyour acc ount executive or se e announcement [email or web address] CALC BUN/CREAT (test 11 RATIO -28 code = 2235) SODIUM (test code = 138 MEQ/L 777-187 1066) POTASSIUM (test code 4.6 MEQ/L 3.5-5.4 = 2227) CHLORIDE (test code 100 MEQ/L 95-107 = 2214) CARBON DIOXIDE (test 23 MEQ/L 19-31 code = 220) CALCIUM (test code = 9.8 MG/DL 8.5-10.5 2208) PROTEIN, TOTAL (test 7.6 G/DL 6.1-8.3 code = 222) ALBUMIN (test code = 4.7 G/DL 3.5-5.2 2200) CALC GLOBULIN (test 2.9 G/DL 1.9-3.7 code = 2240) CALC A/G RATIO (test 1.6 RATIO 1.0-2.6 code = 223) BILIRUBIN, TOTAL 0.9 MG/DL See_Comment [Automated message] (test code = 2207) The syste m which generated this result transmit paty reference range : <=1.2. The refe rence range was not u sed to interpret th is result as normal/abnormal . ALKALINE PHOSPHATASE 99 U/L 40-113 (test code = 2204) AST (test code = 23 U/L 9-40 2217) ALT (test code = 25 U/L 5-40 2218) LIPID [id number] 04:40:28 Test Item Value Reference Range Interpretation Comments CHOLESTEROL (test 246 MG/DL <200 H code = 2210) TRIGLYCERIDES (test 325 MG/DL <150 H code = 2232) HDL CHOLESTEROL (test 43 MG/DL >39 code = 2220) CALC LDL CHOL (test 153 MG/DL <100 H NOTE: C ALCULATED LDL code = 2237) IS BASED ON LESLY-GRECO METHOD WHICHINCLUDES ADJUSTABLE TRIGLYCERIDE:VL DL CHOLESTEROL RAT IO.THIS FACTOR VARIES B Y MEASURED TRIGLY CERIDE AND NON-HDLCHOL ESTEROL CONCENTRATIONS WITH INCREASED CALCU LATED LDL SEENIN HIGH ER TRIGLYCERIDE OR LOWER NON-HDL SPECIME NS. FOR MOREINFORMATION , SEE CLIENT ANNOUNCE MENT AT [email or web address] LDL/HDL 3.56 RATIO <3.22 H UNLESS O THERWISE (test code = 2238) INDICATED , ALL TESTING PERFORMED [facility], [facility]. [address] [place] [id number] [place] [address] TERRY DIRECTOR: CECILIA CORNELL M.D. CLIA NUMBER [id number] CAP ACCREDITATION N O. [id number] HEMOGLOBIN [id number] 03:43:43 Test Item Value Reference Range Interpretation Comments HEMOGLOBIN A1c (test code = 47528) 5.7 % 4.2-5.6 H CBC W/AUTO DIFF WITH [id number] 03:13:23 Test Item Value Reference Range Interpretation Comments WBC (test code = 8.1 K/UL 3.5-11.0 1001) RBC (test code = 4.36 M/UL 3.80-5.40 1002) HEMOGLOBIN (test code 13.7 G/DL 11.5-15.5 = 1003) HEMATOCRIT (test code 41.0 % 34.0-45.0 = 1004) MCV (test code = 94.0 fL 80.0-99.0 1005) MCH (test code = 31.4 PG 25.0-33.0 1006) MCHC (test code = 33.4 G/DL 31.0-36.0 1007) RDW (test code = 12.2 % 11.5-15.0 1038) NEUTROPHILS (test 50.0 % code = 1008) LYMPHOCYTES (test 38.9 % code = 1010) MONOCYTES (test code 8.5 % = 1011) EOSINOPHILS (test 1.7 % code = 1012) BASOPHILS (test code 0.5 % = 1013) IMMATURE GRANULOCYTES 0.4 % (test code = 1036) NUCLEATED RBCS (test 0.0 /100 WBC'S See_Comment [Aut omated code = 1065) message] The sy stem which generated this result transmitted reference range : 0.0. The refere nce range was not u sed to interpret th is result as normal/abnormal . PLATELET COUNT (test 303 K/UL 130-400 code = 1015) ABSOLUTE NEUTROPHILS 4.06 K/UL 1.50-7.50 (test code = 1066) ABSOLUTE LYMPHOCYTES 3.16 K/UL 1.00-4.00 (test code = 1067) ABSOLUTE MONOCYTES 0.69 K/UL 0.20-1.00 (test code = 1068) ABSOLUTE EOSINOPHILS 0.14 K/UL 0.00-0.50 (test code = 1040) ABSOLUTE BASOPHILS 0.04 K/UL 0.00-0.20 (test code = 1069) ABS IMMATURE 0.03 K/UL 0.00-0.10 GRANULOCYTES (test code = 1020) ABS NUCLEATED RBCS 0.00 K/UL 0.00-0.11 (test code = 22841) TSH, THIRD [id number] 06:19:29 Test Item Value Reference Range Interpretation Comments TSH, THIRD GENERATION (test code 1.070 UIU/ML 0.400-4.100 = 2821) COMPREHENSIVE METABOLIC [id number] 05:14:19 Test Item Value Reference Range Interpretation Comments GLUCOSE (test code = 96 MG/DL 70-99 2216) BUN (test code = 17 MG/DL 12-25) CREATININE (test 1.20 MG/DL 0.60-1.30 code = 2214) eGFR (2020 CKD-EPI) 58 ML/MIN/1.73 >60 L (test code = 55150) CALC BUN/CREAT (test 14 RATIO 01-02 code = 2235) SODIUM (test code = 139 MEQ/L 881-278 8066) POTASSIUM (test code 4.7 MEQ/L 3.5-5.4 = 2227) CHLORIDE (test code 99 MEQ/L 95-107 = 2214) CARBON DIOXIDE (test 22 MEQ/L 19-31 code = 2206) CALCIUM (test code = 10.2 MG/DL 8.5-10.5 2208) PROTEIN, TOTAL (test 8.3 G/DL 6.1-8.3 code = 2229) ALBUMIN (test code = 4.9 G/DL 3.5-5.2 2200) CALC GLOBULIN (test 3.4 G/DL 1.9-3.7 code = 2240) CALC A/G RATIO (test 1.4 RATIO 1.0-2.6 code = 2234) BILIRUBIN, TOTAL 0.7 MG/DL See_Comment [Automated message] (test code = 2207) The syste m which generated this result transmit paty reference range : <=1.2. The refe rence range was not u sed to interpret th is result as normal/abnormal . ALKALINE PHOSPHATASE 115 U/L 40-113 H (test code = 2203) AST (test code = 25 U/L 9-40 2217) ALT (test code = 21 U/L 5-40 2218) LIPID [id number] 05:14:19 Test Item Value Reference Range Interpretation Comments CHOLESTEROL (test 281 MG/DL <200 H code = 2210) TRIGLYCERIDES (test 178 MG/DL <150 H code = 2232) HDL CHOLESTEROL (test 61 MG/DL >39 code = 2220) CALC LDL CHOL (test 185 MG/DL <100 H NOTE: C ALCULATED LDL code = 2237) IS BASED ON LESLY-GRECO METHOD WHICHINCLUDES ADJUSTABLE TRIGLYCERIDE:VL DL CHOLESTEROL RAT IO.THIS FACTOR VARIES B Y MEASURED TRIGLY CERIDE AND NON-HDLCHOL ESTEROL CONCENTRATIONS WITH INCREASED CALCU LATED LDL SEENIN HIGH ER TRIGLYCERIDE OR LOWER NON-HDL SPECIME NS. FOR MOREINFORMATION , SEE CLIENT ANNOUNCE MENT AT [email or web address] [email or web address] LDL/HDL 3.03 RATIO <3.22 (test code = 2238) HEMOGLOBIN [id number] 02:42:04 Test Item Value Reference Range Interpretation Comments HEMOGLOBIN A1c (test 5.5 % 4.2-5.6 UNLESS OTHERWISE code = 70966) INDICATED, ALL TESTING PERFORMED [facility] [address] [place] [address] [facility] DIRECTOR: CECILIA CORNELL M.D. CLIA NUMBER [id number] CAP ACCREDITATION N O. [id number] LIPID [id number] 00:00:00 Test Item Value Reference Range Interpretation Comments CHOLESTEROL (test code = 2210) 281 MG/DL TRIGLYCERIDES (test code = 2232) 178 MG/DL HDL CHOLESTEROL (test code = 2220) 61 MG/DL CALC LDL CHOL (test code = 2237) 185 MG/DL RISK RATIO LDL/HDL (test code = 3.03 RATIO 2238) LIPID [id number] 00:00:00 Test Item Value Reference Range Interpretation Comments CHOLESTEROL (test code = 2210) 281 MG/DL TRIGLYCERIDES (test code = 2232) 178 MG/DL HDL CHOLESTEROL (test code = 2220) 61 MG/DL CALC LDL CHOL (test code = 2237) 185 MG/DL RISK RATIO LDL/HDL (test code = 3.03 RATIO 2238) [id number] 00:00:00 Test Item Value Reference Range Interpretation Comments TSH, THIRD GENERATION (test code 1.070 UIU/ML = 2821) [id number] 00:00:00 Test Item Value Reference Range Interpretation Comments TSH, THIRD GENERATION (test code 1.070 UIU/ML = 2821) [id number] 00:00:00 Test Item Value Reference Range Interpretation Comments TSH, THIRD GENERATION (test code 1.070 UIU/ML = 2821) HEMOGLOBIN [id number] 00:00:00 Test Item Value Reference Range Interpretation Comments HEMOGLOBIN A1c (test code = 79375) 5.5 % HEMOGLOBIN [id number] 00:00:00 Test Item Value Reference Range Interpretation Comments HEMOGLOBIN A1c (test code = 61742) 5.5 % HEMOGLOBIN [id number] 00:00:00 Test Item Value Reference Range Interpretation Comments HEMOGLOBIN A1c (test code = 17724) 5.5 % COMPREHENSIVE METABOLIC [id number] 00:00:00 Test Item Value Reference Range Interpretation Comments GLUCOSE (test code = 2217) 96 MG/DL BUN (test code = 2208) 17 MG/DL CREATININE (test code = 2214) 1.20 MG/DL eGFR (2020 CKD-EPI) (test code 58 ML/MIN/1.73 = 99658) CALC BUN/CREAT (test code = 14 RATIO 2235) SODIUM (test code = 2231) 139 MEQ/L POTASSIUM (test code = 2228) 4.7 MEQ/L CHLORIDE (test code = 2215) 99 MEQ/L CARBON DIOXIDE (test code = 22 MEQ/L 2206) CALCIUM (test code = 2209) 10.2 MG/DL PROTEIN, TOTAL (test code = 8.3 G/DL 2228) ALBUMIN (test code = 2201) 4.9 G/DL CALC GLOBULIN (test code = 3.4 G/DL 2240) CALC A/G RATIO (test code = 1.4 RATIO 2234) BILIRUBIN, TOTAL (test code = 0.7 MG/DL 2206) ALKALINE PHOSPHATASE (test 115 U/L code = 2204) AST (test code = 2218) 25 U/L ALT (test code = 2219) 21 U/L COMPREHENSIVE METABOLIC [id number] 00:00:00 Test Item Value Reference Range Interpretation Comments GLUCOSE (test code = 2217) 96 MG/DL BUN (test code = 2208) 17 MG/DL CREATININE (test code = 2214) 1.20 MG/DL eGFR (2020 CKD-EPI) (test code 58 ML/MIN/1.73 = 60825) CALC BUN/CREAT (test code = 14 RATIO 2235) SODIUM (test code = 2231) 139 MEQ/L POTASSIUM (test code = 2228) 4.7 MEQ/L CHLORIDE (test code = 2215) 99 MEQ/L CARBON DIOXIDE (test code = 22 MEQ/L 6) CALCIUM (test code = 2209) 10.2 MG/DL PROTEIN, TOTAL (test code = 8.3 G/DL 2228) ALBUMIN (test code = 2201) 4.9 G/DL CALC GLOBULIN (test code = 3.4 G/DL 2240) CALC A/G RATIO (test code = 1.4 RATIO 2234) BILIRUBIN, TOTAL (test code = 0.7 MG/DL 2206) ALKALINE PHOSPHATASE (test 115 U/L code = 2204) AST (test code = 2218) 25 U/L ALT (test code = 2219) 21 U/L LIPID [id number] 00:00:00 Test Item Value Reference Range Interpretation Comments CHOLESTEROL (test code = 2210) 281 MG/DL TRIGLYCERIDES (test code = 2232) 178 MG/DL HDL CHOLESTEROL (test code = 2220) 61 MG/DL CALC LDL CHOL (test code = 2237) 185 MG/DL RISK RATIO LDL/HDL (test code = 3.03 RATIO 2238) LIPID [id number] 00:00:00 Test Item Value Reference Range Interpretation Comments CHOLESTEROL (test code = 2210) 281 MG/DL TRIGLYCERIDES (test code = 2232) 178 MG/DL HDL CHOLESTEROL (test code = 2220) 61 MG/DL CALC LDL CHOL (test code = 2237) 185 MG/DL RISK RATIO LDL/HDL (test code = 3.03 RATIO 2238) [id number] 00:00:00 Test Item Value Reference Range Interpretation Comments TSH, THIRD GENERATION (test code 1.070 UIU/ML = 2821) [id number] 00:00:00 Test Item Value Reference Range Interpretation Comments TSH, THIRD GENERATION (test code 1.070 UIU/ML = 2821) [id number] 00:00:00 Test Item Value Reference Range Interpretation Comments TSH, THIRD GENERATION (test code 1.070 UIU/ML = 2821) HEMOGLOBIN [id number] 00:00:00 Test Item Value Reference Range Interpretation Comments HEMOGLOBIN A1c (test code = 20389) 5.5 % HEMOGLOBIN [id number] 00:00:00 Test Item Value Reference Range Interpretation Comments HEMOGLOBIN A1c (test code = 47343) 5.5 % HEMOGLOBIN [id number] 00:00:00 Test Item Value Reference Range Interpretation Comments HEMOGLOBIN A1c (test code = 93521) 5.5 % COMPREHENSIVE METABOLIC [id number] 00:00:00 Test Item Value Reference Range Interpretation Comments GLUCOSE (test code = 2217) 96 MG/DL BUN (test code = 2208) 17 MG/DL CREATININE (test code = 2214) 1.20 MG/DL eGFR (2020 CKD-EPI) (test code 58 ML/MIN/1.73 = 27675) CALC BUN/CREAT (test code = 14 RATIO 2235) SODIUM (test code = 2231) 139 MEQ/L POTASSIUM (test code = 2228) 4.7 MEQ/L CHLORIDE (test code = 2215) 99 MEQ/L CARBON DIOXIDE (test code = 22 MEQ/L 2205) CALCIUM (test code = 2209) 10.2 MG/DL PROTEIN, TOTAL (test code = 8.3 G/DL 2228) ALBUMIN (test code = 2201) 4.9 G/DL CALC GLOBULIN (test code = 3.4 G/DL 2240) CALC A/G RATIO (test code = 1.4 RATIO 2234) BILIRUBIN, TOTAL (test code = 0.7 MG/DL 2206) ALKALINE PHOSPHATASE (test 115 U/L code = 2204) AST (test code = 2218) 25 U/L ALT (test code = 2219) 21 U/L COMPREHENSIVE METABOLIC [id number] 00:00:00 Test Item Value Reference Range Interpretation Comments GLUCOSE (test code = 2217) 96 MG/DL BUN (test code = 2208) 17 MG/DL CREATININE (test code = 2214) 1.20 MG/DL eGFR (2020 CKD-EPI) (test code 58 ML/MIN/1.73 = 79443) CALC BUN/CREAT (test code = 14 RATIO 2235) SODIUM (test code = 2231) 139 MEQ/L POTASSIUM (test code = 2228) 4.7 MEQ/L CHLORIDE (test code = 2215) 99 MEQ/L CARBON DIOXIDE (test code = 22 MEQ/L 2205) CALCIUM (test code = 2209) 10.2 MG/DL PROTEIN, TOTAL (test code = 8.3 G/DL 2228) ALBUMIN (test code = 2201) 4.9 G/DL CALC GLOBULIN (test code = 3.4 G/DL 2240) CALC A/G RATIO (test code = 1.4 RATIO 2234) BILIRUBIN, TOTAL (test code = 0.7 MG/DL 2206) ALKALINE PHOSPHATASE (test 115 U/L code = 2204) AST (test code = 2218) 25 U/L ALT (test code = 2219) 21 U/L CBC W/AUTO DIFF WITH [id number] 06:15:32 Test Item Value Reference Range Interpretation Comments WBC (test code = 5.4 K/UL 3.5-11.0 1001) RBC (test code = 4.29 M/UL 3.80-5.40 1002) HEMOGLOBIN (test code 13.5 G/DL 11.5-15.5 = 1003) HEMATOCRIT (test code 40.9 % 34.0-45.0 = 1004) MCV (test code = 95.3 fL 80.0-99.0 1005) MCH (test code = 31.5 PG 25.0-33.0 1006) MCHC (test code = 33.0 G/DL 31.0-36.0 1007) RDW (test code = 11.7 % 11.5-15.0 1038) NEUTROPHILS (test 45.1 % code = 1008) LYMPHOCYTES (test 43.3 % code = 1010) MONOCYTES (test code 8.2 % = 1011) EOSINOPHILS (test 2.4 % code = 1012) BASOPHILS (test code 0.6 % = 1013) IMMATURE GRANYLOCYTES 0.4 % (test code = 1036) NUCLEATED RBCS (test 0.0 /100 WBC'S See_Comment [Aut omated code = 1065) message] The sy stem which generated this result transmitted reference range : 0.0. The refere nce range was not u sed to interpret th is result as normal/abnormal . PLATELET COUNT (test 280 K/UL 130-400 code = 1015) ABSOLUTE NEUTROPHILS 2.43 K/UL 1.50-7.50 (test code = 1066) ABSOLUTE LYMPHOCYTES 2.33 K/UL 1.00-4.00 (test code = 1067) ABSOLUTE MONOCYTES 0.44 K/UL 0.20-1.00 (test code = 1068) ABSOLUTE EOSINOPHILS 0.13 K/UL 0.00-0.50 (test code = 1040) ABSOLUTE BASOPHILS 0.03 K/UL 0.00-0.20 (test code = 1069) ABS IMMATURE 0.02 K/UL 0.00-0.10 GRANULOCYTES (test code = 1020) ABS NUCLEATED RBCS 0.00 K/UL 0.00-0.11 (test code = 83535) ALBUMIN, URINE, [id number] 05:20:38 Test Item Value Reference Range Interpretation Comments ALBUMIN, URINE, 4.6 MG/DL NOT ESTAB UNLESS OTHE RWISE RANDOM (test code = INDICATE D, ALL TESTING 41650) [facility] [address] [place] [id number] [place] [address] DIRECTOR: CECILIA CORNELL M.D. CLIA NUMBER [id number] CAP ACCREDITATION N O. [id number] LIPID [id number] 04:45:32 Test Item Value Reference Range Interpretation Comments CHOLESTEROL (test 243 MG/DL <200 H code = 2210) TRIGLYCERIDES (test 195 MG/DL <150 H code = 2232) HDL CHOLESTEROL (test 59 MG/DL >39 code = 2220) CALC LDL CHOL (test 150 MG/DL <100 H NOTE: C ALCULATED LDL code = 2237) IS BASED ON LESLY-GRECO METHOD WHICHINCLUDES ADJUSTABLE TRIGLYCERIDE:VL DL CHOLESTEROL RAT IO.THIS FACTOR VARIES B Y MEASURED TRIGLY CERIDE AND NON-HDLCHOL ESTEROL CONCENTRATIONS WITH INCREASED CALCU LATED LDL SEENIN HIGH ER TRIGLYCERIDE OR LOWER NON-HDL SPECIME NS. FOR MOREINFORMATION , SEE CLIENT ANNOUNCE MENT AT [email or web address] RISK RATIO LDL/HDL 2.54 RATIO <3.22 (test code = 2238) COMPREHENSIVE METABOLIC [id number] 04:45:32 Test Item Value Reference Range Interpretation Comments GLUCOSE (test code = 100 MG/DL 70-99 H 2216) BUN (test code = 16 MG/DL 6-20 2207) CREATININE (test 1.15 MG/DL 0.60-1.30 code = 2214) eGFR (2020 CKD-EPI) 62 ML/MIN/1.73 >60 (test code = 19146) CALC BUN/CREAT (test 14 RATIO 6-28 code = 2235) SODIUM (test code = 138 MEQ/L 098-288 6872) POTASSIUM (test code 4.2 MEQ/L 3.5-5.4 = 2227) CHLORIDE (test code 98 MEQ/L 95-107 = 2214) CARBON DIOXIDE (test 25 MEQ/L 19-31 code = 2206) CALCIUM (test code = 10.0 MG/DL 8.5-10.5 2208) PROTEIN, TOTAL (test 8.1 G/DL 6.1-8.3 code = 2229) ALBUMIN (test code = 4.7 G/DL 3.5-5.2 2200) CALC GLOBULIN (test 3.4 G/DL 1.9-3.7 code = 2240) CALC A/G RATIO (test 1.4 RATIO 1.0-2.6 code = 2234) BILIRUBIN, TOTAL 0.6 MG/DL See_Comment [Automated message] (test code = 2207) [employer] which generated this result transmit paty reference range : <=1.2. The refe rence range was not u sed to interpret th is result as normal/abnormal . ALKALINE PHOSPHATASE 106 U/L 40-112 (test code = 2204) AST (test code = 20 U/L 9-40 2217) ALT (test code = 14 U/L 5-40 2218) LIPID [id number] 00:00:00 Test Item Value Reference Range Interpretation Comments CHOLESTEROL (test code = 2210) 243 MG/DL TRIGLYCERIDES (test code = 2232) 195 MG/DL HDL CHOLESTEROL (test code = 2220) 59 MG/DL CALC LDL CHOL (test code = 2237) 150 MG/DL RISK RATIO LDL/HDL (test code = 2.54 RATIO 2238) LIPID [id number] 00:00:00 Test Item Value Reference Range Interpretation Comments CHOLESTEROL (test code = 2210) 243 MG/DL TRIGLYCERIDES (test code = 2232) 195 MG/DL HDL CHOLESTEROL (test code = 2220) 59 MG/DL CALC LDL CHOL (test code = 2237) 150 MG/DL RISK RATIO LDL/HDL (test code = 2.54 RATIO 2238) COMPREHENSIVE METABOLIC [id number] 00:00:00 Test Item Value Reference Range Interpretation Comments GLUCOSE (test code = 2217) 100 MG/DL BUN (test code = 2208) 16 MG/DL CREATININE (test code = 2214) 1.15 MG/DL eGFR (2020 CKD-EPI) (test code 62 ML/MIN/1.73 = 15019) CALC BUN/CREAT (test code = 14 RATIO 5) SODIUM (test code = 2231) 138 MEQ/L POTASSIUM (test code = 2228) 4.2 MEQ/L CHLORIDE (test code = 2215) 98 MEQ/L CARBON DIOXIDE (test code = 25 MEQ/L 2205) CALCIUM (test code = 2209) 10.0 MG/DL PROTEIN, TOTAL (test code = 8.1 G/DL 2228) ALBUMIN (test code = 220) 4.7 G/DL CALC GLOBULIN (test code = 3.4 G/DL 2239) CALC A/G RATIO (test code = 1.4 RATIO 2233) BILIRUBIN, TOTAL (test code = 0.6 MG/DL 2206) ALKALINE PHOSPHATASE (test 106 U/L code = 2204) AST (test code = 2218) 20 U/L ALT (test code = 2219) 14 U/L COMPREHENSIVE METABOLIC [id number] 00:00:00 Test Item Value Reference Range Interpretation Comments GLUCOSE (test code = 2217) 100 MG/DL BUN (test code = 2208) 16 MG/DL CREATININE (test code = 2214) 1.15 MG/DL eGFR (2020 CKD-EPI) (test code 62 ML/MIN/1.73 = 42749) CALC BUN/CREAT (test code = 14 RATIO 2235) SODIUM (test code = 2231) 138 MEQ/L POTASSIUM (test code = 2228) 4.2 MEQ/L CHLORIDE (test code = 2215) 98 MEQ/L CARBON DIOXIDE (test code = 25 MEQ/L 2205) CALCIUM (test code = 2209) 10.0 MG/DL PROTEIN, TOTAL (test code = 8.1 G/DL 2228) ALBUMIN (test code = 2201) 4.7 G/DL CALC GLOBULIN (test code = 3.4 G/DL 2239) CALC A/G RATIO (test code = 1.4 RATIO 2233) BILIRUBIN, TOTAL (test code = 0.6 MG/DL 2206) ALKALINE PHOSPHATASE (test 106 U/L code = 2204) AST (test code = 2218) 20 U/L ALT (test code = 2219) 14 U/L MICROALBUMIN, [id number] 00:00:00 Test Item Value Reference Range Interpretation Comments ALBUMIN, URINE, RANDOM (test code = 4.6 MG/DL 46712) MICROALBUMIN, [id number] 00:00:00 Test Item Value Reference Range Interpretation Comments ALBUMIN, URINE, RANDOM (test code = 4.6 MG/DL 41672) CBC W/AUTO [id number] 00:00:00 Test Item Value Reference Range Interpretation Comments WBC (test code = 1001) 5.4 K/UL RBC (test code = 1002) 4.29 M/UL HEMOGLOBIN (test code = 1003) 13.5 G/DL HEMATOCRIT (test code = 1004) 40.9 % MCV (test code = 1005) 95.3 fL MCH (test code = 1006) 31.5 PG MCHC (test code = 1007) 33.0 G/DL RDW (test code = 1038) 11.7 % NEUTROPHILS (test code = 1008) 45.1 % LYMPHOCYTES (test code = 1010) 43.3 % MONOCYTES (test code = 1011) 8.2 % EOSINOPHILS (test code = 1012) 2.4 % BASOPHILS (test code = 1013) 0.6 % IMMATURE GRANYLOCYTES (test 0.4 % code = 1036) NUCLEATED RBCS (test code = 0.0 /100WBC'S 1065) PLATELET COUNT (test code = 280 K/UL 1015) ABSOLUTE NEUTROPHILS (test code 2.43 K/UL = 1066) ABSOLUTE LYMPHOCYTES (test code 2.33 K/UL = 1067) ABSOLUTE MONOCYTES (test code = 0.44 K/UL 1068) ABSOLUTE EOSINOPHILS (test code 0.13 K/UL = 1040) ABSOLUTE BASOPHILS (test code = 0.03 K/UL 1069) ABS IMMATURE GRANULOCYTES (test 0.02 K/UL code = 1020) ABS NUCLEATED RBCS (test code = 0.00 K/UL 65092) CBC W/AUTO [id number] 00:00:00 Test Item Value Reference Range Interpretation Comments WBC (test code = 1001) 5.4 K/UL RBC (test code = 1002) 4.29 M/UL HEMOGLOBIN (test code = 1003) 13.5 G/DL HEMATOCRIT (test code = 1004) 40.9 % MCV (test code = 1005) 95.3 fL MCH (test code = 1006) 31.5 PG MCHC (test code = 1007) 33.0 G/DL RDW (test code = 1038) 11.7 % NEUTROPHILS (test code = 1008) 45.1 % LYMPHOCYTES (test code = 1010) 43.3 % MONOCYTES (test code = 1011) 8.2 % EOSINOPHILS (test code = 1012) 2.4 % BASOPHILS (test code = 1013) 0.6 % IMMATURE GRANYLOCYTES (test 0.4 % code = 1036) NUCLEATED RBCS (test code = 0.0 /100WBC'S 1065) PLATELET COUNT (test code = 280 K/UL 1015) ABSOLUTE NEUTROPHILS (test code 2.43 K/UL = 1066) ABSOLUTE LYMPHOCYTES (test code 2.33 K/UL = 1067) ABSOLUTE MONOCYTES (test code = 0.44 K/UL 1068) ABSOLUTE EOSINOPHILS (test code 0.13 K/UL = 1040) ABSOLUTE BASOPHILS (test code = 0.03 K/UL 1069) ABS IMMATURE GRANULOCYTES (test 0.02 K/UL code = 1020) ABS NUCLEATED RBCS (test code = 0.00 K/UL 56173) CBC W/AUTO [id number] 00:00:00 Test Item Value Reference Range Interpretation Comments WBC (test code = 1001) 5.4 K/UL RBC (test code = 1002) 4.29 M/UL HEMOGLOBIN (test code = 1003) 13.5 G/DL HEMATOCRIT (test code = 1004) 40.9 % MCV (test code = 1005) 95.3 fL MCH (test code = 1006) 31.5 PG MCHC (test code = 1007) 33.0 G/DL RDW (test code = 1038) 11.7 % NEUTROPHILS (test code = 1008) 45.1 % LYMPHOCYTES (test code = 1010) 43.3 % MONOCYTES (test code = 1011) 8.2 % EOSINOPHILS (test code = 1012) 2.4 % BASOPHILS (test code = 1013) 0.6 % IMMATURE GRANYLOCYTES (test 0.4 % code = 1036) NUCLEATED RBCS (test code = 0.0 /100WBC'S 1065) PLATELET COUNT (test code = 280 K/UL 1015) ABSOLUTE NEUTROPHILS (test code 2.43 K/UL = 1066) ABSOLUTE LYMPHOCYTES (test code 2.33 K/UL = 1067) ABSOLUTE MONOCYTES (test code = 0.44 K/UL 1068) ABSOLUTE EOSINOPHILS (test code 0.13 K/UL = 1040) ABSOLUTE BASOPHILS (test code = 0.03 K/UL 1069) ABS IMMATURE GRANULOCYTES (test 0.02 K/UL code = 1020) ABS NUCLEATED RBCS (test code = 0.00 K/UL 37889) LIPID [id number] 00:00:00 Test Item Value Reference Range Interpretation Comments CHOLESTEROL (test code = 2210) 243 MG/DL TRIGLYCERIDES (test code = 2232) 195 MG/DL HDL CHOLESTEROL (test code = 2220) 59 MG/DL CALC LDL CHOL (test code = 2237) 150 MG/DL RISK RATIO LDL/HDL (test code = 2.54 RATIO 2238) LIPID [id number] 00:00:00 Test Item Value Reference Range Interpretation Comments CHOLESTEROL (test code = 2210) 243 MG/DL TRIGLYCERIDES (test code = 2232) 195 MG/DL HDL CHOLESTEROL (test code = 2220) 59 MG/DL CALC LDL CHOL (test code = 2237) 150 MG/DL RISK RATIO LDL/HDL (test code = 2.54 RATIO 2238) COMPREHENSIVE METABOLIC [id number] 00:00:00 Test Item Value Reference Range Interpretation Comments GLUCOSE (test code = 2217) 100 MG/DL BUN (test code = 2208) 16 MG/DL CREATININE (test code = 2214) 1.15 MG/DL eGFR (2020 CKD-EPI) (test code 62 ML/MIN/1.73 = 20778) CALC BUN/CREAT (test code = 14 RATIO 2235) SODIUM (test code = 2231) 138 MEQ/L POTASSIUM (test code = 2228) 4.2 MEQ/L CHLORIDE (test code = 2215) 98 MEQ/L CARBON DIOXIDE (test code = 25 MEQ/L 2205) CALCIUM (test code = 2209) 10.0 MG/DL PROTEIN, TOTAL (test code = 8.1 G/DL 2228) ALBUMIN (test code = 2201) 4.7 G/DL CALC GLOBULIN (test code = 3.4 G/DL 2239) CALC A/G RATIO (test code = 1.4 RATIO 2233) BILIRUBIN, TOTAL (test code = 0.6 MG/DL 2206) ALKALINE PHOSPHATASE (test 106 U/L code = 2204) AST (test code = 2218) 20 U/L ALT (test code = 2219) 14 U/L COMPREHENSIVE METABOLIC [id number] 00:00:00 Test Item Value Reference Range Interpretation Comments GLUCOSE (test code = 2217) 100 MG/DL BUN (test code = 2208) 16 MG/DL CREATININE (test code = 2214) 1.15 MG/DL eGFR (2020 CKD-EPI) (test code 62 ML/MIN/1.73 = 08337) CALC BUN/CREAT (test code = 14 RATIO 2235) SODIUM (test code = 2231) 138 MEQ/L POTASSIUM (test code = 2228) 4.2 MEQ/L CHLORIDE (test code = 2215) 98 MEQ/L CARBON DIOXIDE (test code = 25 MEQ/L 2205) CALCIUM (test code = 2209) 10.0 MG/DL PROTEIN, TOTAL (test code = 8.1 G/DL 2228) ALBUMIN (test code = 2201) 4.7 G/DL CALC GLOBULIN (test code = 3.4 G/DL 2240) CALC A/G RATIO (test code = 1.4 RATIO 2234) BILIRUBIN, TOTAL (test code = 0.6 MG/DL 2206) ALKALINE PHOSPHATASE (test 106 U/L code = 2204) AST (test code = 2218) 20 U/L ALT (test code = 2219) 14 U/L MICROALBUMIN, [id number] 00:00:00 Test Item Value Reference Range Interpretation Comments ALBUMIN, URINE, RANDOM (test code = 4.6 MG/DL 46549) MICROALBUMIN, [id number] 00:00:00 Test Item Value Reference Range Interpretation Comments ALBUMIN, URINE, RANDOM (test code = 4.6 MG/DL 47226) CBC W/AUTO [id number] 00:00:00 Test Item Value Reference Range Interpretation Comments WBC (test code = 1001) 5.4 K/UL RBC (test code = 1002) 4.29 M/UL HEMOGLOBIN (test code = 1003) 13.5 G/DL HEMATOCRIT (test code = 1004) 40.9 % MCV (test code = 1005) 95.3 fL MCH (test code = 1006) 31.5 PG MCHC (test code = 1007) 33.0 G/DL RDW (test code = 1038) 11.7 % NEUTROPHILS (test code = 1008) 45.1 % LYMPHOCYTES (test code = 1010) 43.3 % MONOCYTES (test code = 1011) 8.2 % EOSINOPHILS (test code = 1012) 2.4 % BASOPHILS (test code = 1013) 0.6 % IMMATURE GRANYLOCYTES (test 0.4 % code = 1036) NUCLEATED RBCS (test code = 0.0 /100WBC'S 1065) PLATELET COUNT (test code = 280 K/UL 1015) ABSOLUTE NEUTROPHILS (test code 2.43 K/UL = 1066) ABSOLUTE LYMPHOCYTES (test code 2.33 K/UL = 1067) ABSOLUTE MONOCYTES (test code = 0.44 K/UL 1068) ABSOLUTE EOSINOPHILS (test code 0.13 K/UL = 1040) ABSOLUTE BASOPHILS (test code = 0.03 K/UL 1069) ABS IMMATURE GRANULOCYTES (test 0.02 K/UL code = 1020) ABS NUCLEATED RBCS (test code = 0.00 K/UL 73611) CBC W/AUTO [id number] 00:00:00 Test Item Value Reference Range Interpretation Comments WBC (test code = 1001) 5.4 K/UL RBC (test code = 1002) 4.29 M/UL HEMOGLOBIN (test code = 1003) 13.5 G/DL HEMATOCRIT (test code = 1004) 40.9 % MCV (test code = 1005) 95.3 fL MCH (test code = 1006) 31.5 PG MCHC (test code = 1007) 33.0 G/DL RDW (test code = 1038) 11.7 % NEUTROPHILS (test code = 1008) 45.1 % LYMPHOCYTES (test code = 1010) 43.3 % MONOCYTES (test code = 1011) 8.2 % EOSINOPHILS (test code = 1012) 2.4 % BASOPHILS (test code = 1013) 0.6 % IMMATURE GRANYLOCYTES (test 0.4 % code = 1036) NUCLEATED RBCS (test code = 0.0 /100WBC'S 1065) PLATELET COUNT (test code = 280 K/UL 1015) ABSOLUTE NEUTROPHILS (test code 2.43 K/UL = 1066) ABSOLUTE LYMPHOCYTES (test code 2.33 K/UL = 1067) ABSOLUTE MONOCYTES (test code = 0.44 K/UL 1068) ABSOLUTE EOSINOPHILS (test code 0.13 K/UL = 1040) ABSOLUTE BASOPHILS (test code = 0.03 K/UL 1069) ABS IMMATURE GRANULOCYTES (test 0.02 K/UL code = 1020) ABS NUCLEATED RBCS (test code = 0.00 K/UL 10626) CBC W/AUTO [id number] 00:00:00 Test Item Value Reference Range Interpretation Comments WBC (test code = 1001) 5.4 K/UL RBC (test code = 1002) 4.29 M/UL HEMOGLOBIN (test code = 1003) 13.5 G/DL HEMATOCRIT (test code = 1004) 40.9 % MCV (test code = 1005) 95.3 fL MCH (test code = 1006) 31.5 PG MCHC (test code = 1007) 33.0 G/DL RDW (test code = 1038) 11.7 % NEUTROPHILS (test code = 1008) 45.1 % LYMPHOCYTES (test code = 1010) 43.3 % MONOCYTES (test code = 1011) 8.2 % EOSINOPHILS (test code = 1012) 2.4 % BASOPHILS (test code = 1013) 0.6 % IMMATURE GRANYLOCYTES (test 0.4 % code = 1036) NUCLEATED RBCS (test code = 0.0 /100WBC'S 1065) PLATELET COUNT (test code = 280 K/UL 1015) ABSOLUTE NEUTROPHILS (test code 2.43 K/UL = 1066) ABSOLUTE LYMPHOCYTES (test code 2.33 K/UL = 1067) ABSOLUTE MONOCYTES (test code = 0.44 K/UL 1068) ABSOLUTE EOSINOPHILS (test code 0.13 K/UL = 1040) ABSOLUTE BASOPHILS (test code = 0.03 K/UL 1069) ABS IMMATURE GRANULOCYTES (test 0.02 K/UL code = 1020) ABS NUCLEATED RBCS (test code = 0.00 K/UL 42661) SARS-CoV-2 (COVID-19), RT-[id number] 17:21:35 Test Item Value Reference Interpretation Comments Range SARS-CoV-2 NEGATIVE SEE NOTE SARS-CoV-2 RNA NOT INTERPRETATION DETECTEDNegat red (test code = 77636) results do not preclude SARS-C oV-2 infection and s hould notbe used as t he sole basis for patie nt management deci sions. Negativeresults must be combined wit h clinical observ ations, patient history ,and epidemiological information. Op timum specimen types and timingfor peak viral levels during infections caus ed by SARS-CoV-2 have notbeen determi jyothi. Collection of m ultiple specimens or ty pes ofspecimens may be necessary to de tect virus. Improper specimencollect ion and handling, seque nce variability und er primers/probes, or organism presen t below the limit of de tection may lead to falsenegative r esults. Positive and ne gative predictive valu es oftesting are h ighly dependent on prevalence. Fal se negative testre sults are more likely when prevalence is h igh. SOURCE (test code = NASOPHARYNGEAL Note: [place] [address]) Virginie Stephani Kaylee l-Time RT-PCR. The exp ected result or refer ence range is NEGATI VE (Not Detected). For more information reg arding COVID-19 testin g to include clinicalinforma tion, methodology det ail, intended use, F DA authorization andrecommended fact sheets for ralph ents or healthcare prov iders, see [facility] Announcement: SARS-CoV-2 (COV ID-19) by NAAT at URL below (note,fact shee ts are provided by met hod given in report:https:// [email or web address].com/clinic ians/cl ient-communicat ions/ Alternatively, see downloadable PD F fact sheet at:https://www. [facility]/COVID-19-R T-PCR UNLESS OTHERWIS E INDICATED, ALL TESTING PERFORMED [facility], [id number] [place] [address] HAYLEY DIRECTOR: CECILIA CORNELL M.D. CLIA NUMBER [id number] CAP ACCREDITATION N O. [id number] SARS-CoV-2 (COVID-19) by RT-PCR (HIGH RISK)2021-07-16 00:00:00 Test Item Value Reference Range Interpretation Comments SARS-CoV-2 INTERPRETATION NEGATIVE (test code = 55970) SOURCE (test code = 48504) NASOPHARYNGEAL SARS-CoV-2 (COVID-19) by RT-PCR (HIGH RISK)2021-07-16 00:00:00 Test Item Value Reference Range Interpretation Comments SARS-CoV-2 INTERPRETATION NEGATIVE (test code = 61446) SOURCE (test code = 34194) NASOPHARYNGEAL SARS-CoV-2 (COVID-19) by RT-PCR (HIGH RISK)2021-07-16 00:00:00 Test Item Value Reference Range Interpretation Comments SARS-CoV-2 INTERPRETATION NEGATIVE (test code = 09500) SOURCE (test code = 80646) NASOPHARYNGEAL SARS-CoV-2 (COVID-19) by RT-PCR (HIGH RISK)2021-07-16 00:00:00 Test Item Value Reference Range Interpretation Comments SARS-CoV-2 INTERPRETATION NEGATIVE (test code = 33453) SOURCE (test code = 98627) NASOPHARYNGEAL [id number] 00:00:00 Test Item Value Reference Range Interpretation Comments TSH, THIRD GENERATION (test code 0.705 UIU/ML = 2821) [id number] 00:00:00 Test Item Value Reference Range Interpretation Comments TSH, THIRD GENERATION (test code 0.705 UIU/ML = 2821) [id number] 00:00:00 Test Item Value Reference Range Interpretation Comments TSH, THIRD GENERATION (test code 0.705 UIU/ML = 2821) [id number] 00:00:00 Test Item Value Reference Range Interpretation Comments TSH, THIRD GENERATION (test code 0.705 UIU/ML = 2821) [id number] 00:00:00 Test Item Value Reference Range Interpretation Comments TSH, THIRD GENERATION (test code 0.705 UIU/ML = 2821) [id number] 00:00:00 Test Item Value Reference Range Interpretation Comments TSH, THIRD GENERATION (test code 0.705 UIU/ML = 2821) H. PYLORI (BREATH)2021-04-11 00:00:00 Test Item Value Reference Range Interpretation Comments H. PYLORI (BREATH) (test code = NEGATIVE 81596) H. PYLORI (BREATH)2021-04-11 00:00:00 Test Item Value Reference Range Interpretation Comments H. PYLORI (BREATH) (test code = NEGATIVE 22686) HEMOGLOBIN [id number] 00:00:00 Test Item Value Reference Range Interpretation Comments HEMOGLOBIN A1c (test code = 80345) 5.5 % HEMOGLOBIN [id number] 00:00:00 Test Item Value Reference Range Interpretation Comments HEMOGLOBIN A1c (test code = 05327) 5.5 % HEMOGLOBIN [id number] 00:00:00 Test Item Value Reference Range Interpretation Comments HEMOGLOBIN A1c (test code = 07576) 5.5 % H. PYLORI (BREATH)2021-04-11 00:00:00 Test Item Value Reference Range Interpretation Comments H. PYLORI (BREATH) (test code = NEGATIVE 80807) H. PYLORI (BREATH)2021-04-11 00:00:00 Test Item Value Reference Range Interpretation Comments H. PYLORI (BREATH) (test code = NEGATIVE 10102) HEMOGLOBIN [id number] 00:00:00 Test Item Value Reference Range Interpretation Comments HEMOGLOBIN A1c (test code = 03863) 5.5 % HEMOGLOBIN [id number] 00:00:00 Test Item Value Reference Range Interpretation Comments HEMOGLOBIN A1c (test code = 99782) 5.5 % HEMOGLOBIN [id number] 00:00:00 Test Item Value Reference Range Interpretation Comments HEMOGLOBIN A1c (test code = 28424) 5.5 % MICROALBUMIN/CREATININE, RANDOM AND [id number] 00:00:00 Test Item Value Reference Range Interpretation Comments CREATININE, URINE, CONC. (test 13.0 MG/DL code = 2072) ALBUMIN, URINE, RANDOM (test code 3.0 MG/DL = 08295) CALC ALBUMIN/CREAT, RND (test code 231 MG/G = 29436) MICROALBUMIN/CREATININE, RANDOM AND [id number] 00:00:00 Test Item Value Reference Range Interpretation Comments CREATININE, URINE, CONC. (test 13.0 MG/DL code = 2072) ALBUMIN, URINE, RANDOM (test code 3.0 MG/DL = 71976) CALC ALBUMIN/CREAT, RND (test code 231 MG/G = 71019) MICROALBUMIN/CREATININE, RANDOM AND [id number] 00:00:00 Test Item Value Reference Range Interpretation Comments CREATININE, URINE, CONC. (test 13.0 MG/DL code = 2072) ALBUMIN, URINE, RANDOM (test code 3.0 MG/DL = 41401) CALC ALBUMIN/CREAT, RND (test code 231 MG/G = 27295) MICROALBUMIN/CREATININE, RANDOM AND [id number] 00:00:00 Test Item Value Reference Range Interpretation Comments CREATININE, URINE, CONC. (test 13.0 MG/DL code = 2072) ALBUMIN, URINE, RANDOM (test code 3.0 MG/DL = 57420) CALC ALBUMIN/CREAT, RND (test code 231 MG/G = 03887) [id number] 00:00:00 Test Item Value Reference Range Interpretation Comments TSH, THIRD GENERATION (test code 1.370 UIU/ML = 2821) [id number] 00:00:00 Test Item Value Reference Range Interpretation Comments TSH, THIRD GENERATION (test code 1.370 UIU/ML = 2821) [id number] 00:00:00 Test Item Value Reference Range Interpretation Comments TSH, THIRD GENERATION (test code 1.370 UIU/ML = 2821) CBC W/AUTO [id number] 00:00:00 Test Item Value Reference Range Interpretation Comments WBC (test code = 1001) 9.9 K/UL RBC (test code = 1002) 4.67 M/UL HEMOGLOBIN (test code = 1003) 15.2 G/DL HEMATOCRIT (test code = 1004) 45.4 % MCV (test code = 1005) 97.2 fL MCH (test code = 1006) 32.5 PG MCHC (test code = 1007) 33.5 G/DL RDW (test code = 1038) 12.6 % NEUTROPHILS (test code = 1008) 60.2 % LYMPHOCYTES (test code = 1010) 27.6 % MONOCYTES (test code = 1011) 9.9 % EOSINOPHILS (test code = 1012) 1.7 % BASOPHILS (test code = 1013) 0.5 % IMMATURE GRANULOCYTES (test 0.1 % code = 1036) NUCLEATED RBCS (test code = 0.0 /100WBC'S 1065) PLATELET COUNT (test code = 256 K/UL 1015) ABSOLUTE NEUTROPHILS (test code 5.97 K/UL = 1066) ABSOLUTE LYMPHOCYTES (test code 2.74 K/UL = 1067) ABSOLUTE MONOCYTES (test code = 0.98 K/UL 1068) ABSOLUTE EOSINOPHILS (test code 0.17 K/UL = 1040) ABSOLUTE BASOPHILS (test code = 0.05 K/UL 1069) ABS IMMATURE GRANULOCYTES (test 0.01 K/UL code = 1020) ABS NUCLEATED RBCS (test code = 0.00 K/UL 85545) CBC W/AUTO [id number] 00:00:00 Test Item Value Reference Range Interpretation Comments WBC (test code = 1001) 9.9 K/UL RBC (test code = 1002) 4.67 M/UL HEMOGLOBIN (test code = 1003) 15.2 G/DL HEMATOCRIT (test code = 1004) 45.4 % MCV (test code = 1005) 97.2 fL MCH (test code = 1006) 32.5 PG MCHC (test code = 1007) 33.5 G/DL RDW (test code = 1038) 12.6 % NEUTROPHILS (test code = 1008) 60.2 % LYMPHOCYTES (test code = 1010) 27.6 % MONOCYTES (test code = 1011) 9.9 % EOSINOPHILS (test code = 1012) 1.7 % BASOPHILS (test code = 1013) 0.5 % IMMATURE GRANULOCYTES (test 0.1 % code = 1036) NUCLEATED RBCS (test code = 0.0 /100WBC'S 1065) PLATELET COUNT (test code = 256 K/UL 1015) ABSOLUTE NEUTROPHILS (test code 5.97 K/UL = 1066) ABSOLUTE LYMPHOCYTES (test code 2.74 K/UL = 1067) ABSOLUTE MONOCYTES (test code = 0.98 K/UL 1068) ABSOLUTE EOSINOPHILS (test code 0.17 K/UL = 1040) ABSOLUTE BASOPHILS (test code = 0.05 K/UL 1069) ABS IMMATURE GRANULOCYTES (test 0.01 K/UL code = 1020) ABS NUCLEATED RBCS (test code = 0.00 K/UL 76073) CBC W/AUTO [id number] 00:00:00 Test Item Value Reference Range Interpretation Comments WBC (test code = 1001) 9.9 K/UL RBC (test code = 1002) 4.67 M/UL HEMOGLOBIN (test code = 1003) 15.2 G/DL HEMATOCRIT (test code = 1004) 45.4 % MCV (test code = 1005) 97.2 fL MCH (test code = 1006) 32.5 PG MCHC (test code = 1007) 33.5 G/DL RDW (test code = 1038) 12.6 % NEUTROPHILS (test code = 1008) 60.2 % LYMPHOCYTES (test code = 1010) 27.6 % MONOCYTES (test code = 1011) 9.9 % EOSINOPHILS (test code = 1012) 1.7 % BASOPHILS (test code = 1013) 0.5 % IMMATURE GRANULOCYTES (test 0.1 % code = 1036) NUCLEATED RBCS (test code = 0.0 /100WBC'S 1065) PLATELET COUNT (test code = 256 K/UL 1015) ABSOLUTE NEUTROPHILS (test code 5.97 K/UL = 1066) ABSOLUTE LYMPHOCYTES (test code 2.74 K/UL = 1067) ABSOLUTE MONOCYTES (test code = 0.98 K/UL 1068) ABSOLUTE EOSINOPHILS (test code 0.17 K/UL = 1040) ABSOLUTE BASOPHILS (test code = 0.05 K/UL 1069) ABS IMMATURE GRANULOCYTES (test 0.01 K/UL code = 1020) ABS NUCLEATED RBCS (test code = 0.00 K/UL 99965) SEDIMENTATION [id number] 00:00:00 Test Item Value Reference Range Interpretation Comments SEDIMENTATION RATE (test code = 27 MM/HOUR 1017) SEDIMENTATION [id number] 00:00:00 Test Item Value Reference Range Interpretation Comments SEDIMENTATION RATE (test code = 27 MM/HOUR 1017) LUCA NON-REFLEX TO [id number] 00:00:00 Test Item Value Reference Range Interpretation Comments ANTI-NUCLEAR ANTIBODIES (test code = NEGATIVE 3506) LUCA NON-REFLEX TO [id number] 00:00:00 Test Item Value Reference Range Interpretation Comments ANTI-NUCLEAR ANTIBODIES (test code = NEGATIVE 3506) COMPREHENSIVE METABOLIC [id number] 00:00:00 Test Item Value Reference Range Interpretation Comments GLUCOSE (test code = 2217) 76 MG/DL BUN (test code = 2208) 16 MG/DL CREATININE (test code = 2214) 1.21 MG/DL eGFR AMER. (test code 65 ML/MIN/1.73 = 76533) eGFR NON- AMER. (test 56 ML/MIN/1.73 code = 07516) CALC BUN/CREAT (test code = 13 RATIO 2235) SODIUM (test code = 2231) 139 MEQ/L POTASSIUM (test code = 2228) 4.8 MEQ/L CHLORIDE (test code = 2215) 100 MEQ/L CARBON DIOXIDE (test code = 24 MEQ/L 6) CALCIUM (test code = 2209) 9.8 MG/DL PROTEIN, TOTAL (test code = 7.9 G/DL 2228) ALBUMIN (test code = 2201) 4.6 G/DL CALC GLOBULIN (test code = 3.3 G/DL 2240) CALC A/G RATIO (test code = 1.4 RATIO 2234) BILIRUBIN, TOTAL (test code = 0.6 MG/DL 2206) ALKALINE PHOSPHATASE (test 119 U/L code = 2204) AST (test code = 2218) 26 U/L ALT (test code = 2219) 22 U/L COMPREHENSIVE METABOLIC [id number] 00:00:00 Test Item Value Reference Range Interpretation Comments GLUCOSE (test code = 2217) 76 MG/DL BUN (test code = 2208) 16 MG/DL CREATININE (test code = 2214) 1.21 MG/DL eGFR AMER. (test code 65 ML/MIN/1.73 = 03263) eGFR NON- AMER. (test 56 ML/MIN/1.73 code = 50381) CALC BUN/CREAT (test code = 13 RATIO 2234) SODIUM (test code = 2231) 139 MEQ/L POTASSIUM (test code = 2228) 4.8 MEQ/L CHLORIDE (test code = 2215) 100 MEQ/L CARBON DIOXIDE (test code = 24 MEQ/L 2205) CALCIUM (test code = 2209) 9.8 MG/DL PROTEIN, TOTAL (test code = 7.9 G/DL 2228) ALBUMIN (test code = 2201) 4.6 G/DL CALC GLOBULIN (test code = 3.3 G/DL 2239) CALC A/G RATIO (test code = 1.4 RATIO 2233) BILIRUBIN, TOTAL (test code = 0.6 MG/DL 2206) ALKALINE PHOSPHATASE (test 119 U/L code = 2204) AST (test code = 2218) 26 U/L ALT (test code = 2219) 22 U/L [id number] 00:00:00 Test Item Value Reference Range Interpretation Comments TSH, THIRD GENERATION (test code 1.370 UIU/ML = 2821) [id number] 00:00:00 Test Item Value Reference Range Interpretation Comments TSH, THIRD GENERATION (test code 1.370 UIU/ML = 2821) [id number] 00:00:00 Test Item Value Reference Range Interpretation Comments TSH, THIRD GENERATION (test code 1.370 UIU/ML = 2821) CBC W/AUTO [id number] 00:00:00 Test Item Value Reference Range Interpretation Comments WBC (test code = 1001) 9.9 K/UL RBC (test code = 1002) 4.67 M/UL HEMOGLOBIN (test code = 1003) 15.2 G/DL HEMATOCRIT (test code = 1004) 45.4 % MCV (test code = 1005) 97.2 fL MCH (test code = 1006) 32.5 PG MCHC (test code = 1007) 33.5 G/DL RDW (test code = 1038) 12.6 % NEUTROPHILS (test code = 1008) 60.2 % LYMPHOCYTES (test code = 1010) 27.6 % MONOCYTES (test code = 1011) 9.9 % EOSINOPHILS (test code = 1012) 1.7 % BASOPHILS (test code = 1013) 0.5 % IMMATURE GRANULOCYTES (test 0.1 % code = 1036) NUCLEATED RBCS (test code = 0.0 /100WBC'S 1065) PLATELET COUNT (test code = 256 K/UL 1015) ABSOLUTE NEUTROPHILS (test code 5.97 K/UL = 1066) ABSOLUTE LYMPHOCYTES (test code 2.74 K/UL = 1067) ABSOLUTE MONOCYTES (test code = 0.98 K/UL 1068) ABSOLUTE EOSINOPHILS (test code 0.17 K/UL = 1040) ABSOLUTE BASOPHILS (test code = 0.05 K/UL 1069) ABS IMMATURE GRANULOCYTES (test 0.01 K/UL code = 1020) ABS NUCLEATED RBCS (test code = 0.00 K/UL 44558) CBC W/AUTO [id number] 00:00:00 Test Item Value Reference Range Interpretation Comments WBC (test code = 1001) 9.9 K/UL RBC (test code = 1002) 4.67 M/UL HEMOGLOBIN (test code = 1003) 15.2 G/DL HEMATOCRIT (test code = 1004) 45.4 % MCV (test code = 1005) 97.2 fL MCH (test code = 1006) 32.5 PG MCHC (test code = 1007) 33.5 G/DL RDW (test code = 1038) 12.6 % NEUTROPHILS (test code = 1008) 60.2 % LYMPHOCYTES (test code = 1010) 27.6 % MONOCYTES (test code = 1011) 9.9 % EOSINOPHILS (test code = 1012) 1.7 % BASOPHILS (test code = 1013) 0.5 % IMMATURE GRANULOCYTES (test 0.1 % code = 1036) NUCLEATED RBCS (test code = 0.0 /100WBC'S 1065) PLATELET COUNT (test code = 256 K/UL 1015) ABSOLUTE NEUTROPHILS (test code 5.97 K/UL = 1066) ABSOLUTE LYMPHOCYTES (test code 2.74 K/UL = 1067) ABSOLUTE MONOCYTES (test code = 0.98 K/UL 1068) ABSOLUTE EOSINOPHILS (test code 0.17 K/UL = 1040) ABSOLUTE BASOPHILS (test code = 0.05 K/UL 1069) ABS IMMATURE GRANULOCYTES (test 0.01 K/UL code = 1020) ABS NUCLEATED RBCS (test code = 0.00 K/UL 81933) CBC W/AUTO [id number] 00:00:00 Test Item Value Reference Range Interpretation Comments WBC (test code = 1001) 9.9 K/UL RBC (test code = 1002) 4.67 M/UL HEMOGLOBIN (test code = 1003) 15.2 G/DL HEMATOCRIT (test code = 1004) 45.4 % MCV (test code = 1005) 97.2 fL MCH (test code = 1006) 32.5 PG MCHC (test code = 1007) 33.5 G/DL RDW (test code = 1038) 12.6 % NEUTROPHILS (test code = 1008) 60.2 % LYMPHOCYTES (test code = 1010) 27.6 % MONOCYTES (test code = 1011) 9.9 % EOSINOPHILS (test code = 1012) 1.7 % BASOPHILS (test code = 1013) 0.5 % IMMATURE GRANULOCYTES (test 0.1 % code = 1036) NUCLEATED RBCS (test code = 0.0 /100WBC'S 1065) PLATELET COUNT (test code = 256 K/UL 1015) ABSOLUTE NEUTROPHILS (test code 5.97 K/UL = 1066) ABSOLUTE LYMPHOCYTES (test code 2.74 K/UL = 1067) ABSOLUTE MONOCYTES (test code = 0.98 K/UL 1068) ABSOLUTE EOSINOPHILS (test code 0.17 K/UL = 1040) ABSOLUTE BASOPHILS (test code = 0.05 K/UL 1069) ABS IMMATURE GRANULOCYTES (test 0.01 K/UL code = 1020) ABS NUCLEATED RBCS (test code = 0.00 K/UL 55872) SEDIMENTATION [id number] 00:00:00 Test Item Value Reference Range Interpretation Comments SEDIMENTATION RATE (test code = 27 MM/HOUR 1017) SEDIMENTATION [id number] 00:00:00 Test Item Value Reference Range Interpretation Comments SEDIMENTATION RATE (test code = 27 MM/HOUR 1017) LUCA NON-REFLEX TO [id number] 00:00:00 Test Item Value Reference Range Interpretation Comments ANTI-NUCLEAR ANTIBODIES (test code = NEGATIVE 3506) LUCA NON-REFLEX TO [id number] 00:00:00 Test Item Value Reference Range Interpretation Comments ANTI-NUCLEAR ANTIBODIES (test code = NEGATIVE 3506) COMPREHENSIVE METABOLIC [id number] 00:00:00 Test Item Value Reference Range Interpretation Comments GLUCOSE (test code = 2217) 76 MG/DL BUN (test code = 2208) 16 MG/DL CREATININE (test code = 2214) 1.21 MG/DL eGFR AMER. (test code 65 ML/MIN/1.73 = 16093) eGFR NON- AMER. (test 56 ML/MIN/1.73 code = 73866) CALC BUN/CREAT (test code = 13 RATIO 2235) SODIUM (test code = 2231) 139 MEQ/L POTASSIUM (test code = 2228) 4.8 MEQ/L CHLORIDE (test code = 2215) 100 MEQ/L CARBON DIOXIDE (test code = 24 MEQ/L 220) CALCIUM (test code = 2209) 9.8 MG/DL PROTEIN, TOTAL (test code = 7.9 G/DL 2228) ALBUMIN (test code = 2201) 4.6 G/DL CALC GLOBULIN (test code = 3.3 G/DL 2240) CALC A/G RATIO (test code = 1.4 RATIO 2233) BILIRUBIN, TOTAL (test code = 0.6 MG/DL 2206) ALKALINE PHOSPHATASE (test 119 U/L code = 2204) AST (test code = 2218) 26 U/L ALT (test code = 2219) 22 U/L COMPREHENSIVE METABOLIC [id number] 00:00:00 Test Item Value Reference Range Interpretation Comments GLUCOSE (test code = 2217) 76 MG/DL BUN (test code = 2208) 16 MG/DL CREATININE (test code = 2214) 1.21 MG/DL eGFR AMER. (test code 65 ML/MIN/1.73 = 69790) eGFR NON- AMER. (test 56 ML/MIN/1.73 code = 36693) CALC BUN/CREAT (test code = 13 RATIO 2235) SODIUM (test code = 2231) 139 MEQ/L POTASSIUM (test code = 2228) 4.8 MEQ/L CHLORIDE (test code = 2215) 100 MEQ/L CARBON DIOXIDE (test code = 24 MEQ/L 220) CALCIUM (test code = 2209) 9.8 MG/DL PROTEIN, TOTAL (test code = 7.9 G/DL 2228) ALBUMIN (test code = 2201) 4.6 G/DL CALC GLOBULIN (test code = 3.3 G/DL 2240) CALC A/G RATIO (test code = 1.4 RATIO 2233) BILIRUBIN, TOTAL (test code = 0.6 MG/DL 2206) ALKALINE PHOSPHATASE (test 119 U/L code = 2204) AST (test code = 2218) 26 U/L ALT (test code = 2219) 22 U/L VITAMIN D, 25 [id number] 00:00:00 Test Item Value Reference Range Interpretation Comments VITAMIN D, 25 OH (test code = 4958) 24 NG/ML [id number] 00:00:00 Test Item Value Reference Range Interpretation Comments TSH, THIRD GENERATION (test code 1.200 UIU/ML = 2821) [id number] 00:00:00 Test Item Value Reference Range Interpretation Comments TSH, THIRD GENERATION (test code 1.200 UIU/ML = 2821) [id number] 00:00:00 Test Item Value Reference Range Interpretation Comments TSH, THIRD GENERATION (test code 1.200 UIU/ML = 2821) COMPREHENSIVE METABOLIC [id number] 00:00:00 Test Item Value Reference Range Interpretation Comments GLUCOSE (test code = 2217) 87 MG/DL BUN (test code = 2208) 15 MG/DL CREATININE (test code = 2214) 1.14 MG/DL eGFR AMER. (test code 70 ML/MIN/1.73 = 00262) eGFR NON- AMER. (test 60 ML/MIN/1.73 code = 79018) CALC BUN/CREAT (test code = 13 RATIO 5) SODIUM (test code = 2231) 138 MEQ/L POTASSIUM (test code = 2228) 4.5 MEQ/L CHLORIDE (test code = 2215) 100 MEQ/L CARBON DIOXIDE (test code = 23 MEQ/L 2205) CALCIUM (test code = 2209) 9.5 MG/DL PROTEIN, TOTAL (test code = 7.3 G/DL 2228) ALBUMIN (test code = 2201) 4.4 G/DL CALC GLOBULIN (test code = 2.9 G/DL 2239) CALC A/G RATIO (test code = 1.5 RATIO 2233) BILIRUBIN, TOTAL (test code = 0.6 MG/DL 2206) ALKALINE PHOSPHATASE (test 110 U/L code = 2204) AST (test code = 2218) 26 U/L ALT (test code = 2219) 23 U/L COMPREHENSIVE METABOLIC [id number] 00:00:00 Test Item Value Reference Range Interpretation Comments GLUCOSE (test code = 2217) 87 MG/DL BUN (test code = 2208) 15 MG/DL CREATININE (test code = 2214) 1.14 MG/DL eGFR AMER. (test code 70 ML/MIN/1.73 = 90121) eGFR NON- AMER. (test 60 ML/MIN/1.73 code = 96135) CALC BUN/CREAT (test code = 13 RATIO 2235) SODIUM (test code = 2231) 138 MEQ/L POTASSIUM (test code = 2228) 4.5 MEQ/L CHLORIDE (test code = 2215) 100 MEQ/L CARBON DIOXIDE (test code = 23 MEQ/L 2205) CALCIUM (test code = 2209) 9.5 MG/DL PROTEIN, TOTAL (test code = 7.3 G/DL 222) ALBUMIN (test code = 2201) 4.4 G/DL CALC GLOBULIN (test code = 2.9 G/DL 2240) CALC A/G RATIO (test code = 1.5 RATIO 2234) BILIRUBIN, TOTAL (test code = 0.6 MG/DL 220) ALKALINE PHOSPHATASE (test 110 U/L code = 2204) AST (test code = 2218) 26 U/L ALT (test code = 2219) 23 U/L VITAMIN D, 25 [id number] 00:00:00 Test Item Value Reference Range Interpretation Comments VITAMIN D, 25 OH (test code = 4958) 24 NG/ML VITAMIN D, 25 [id number] 00:00:00 Test Item Value Reference Range Interpretation Comments VITAMIN D, 25 OH (test code = 4958) 24 NG/ML [id number] 00:00:00 Test Item Value Reference Range Interpretation Comments TSH, THIRD GENERATION (test code 1.200 UIU/ML = 2821) [id number] 00:00:00 Test Item Value Reference Range Interpretation Comments TSH, THIRD GENERATION (test code 1.200 UIU/ML = 2821) [id number] 00:00:00 Test Item Value Reference Range Interpretation Comments TSH, THIRD GENERATION (test code 1.200 UIU/ML = 2821) COMPREHENSIVE METABOLIC [id number] 00:00:00 Test Item Value Reference Range Interpretation Comments GLUCOSE (test code = 2217) 87 MG/DL BUN (test code = 2208) 15 MG/DL CREATININE (test code = 2214) 1.14 MG/DL eGFR AMER. (test code 70 ML/MIN/1.73 = 13163) eGFR NON- AMER. (test 60 ML/MIN/1.73 code = 54509) CALC BUN/CREAT (test code = 13 RATIO 2235) SODIUM (test code = 2231) 138 MEQ/L POTASSIUM (test code = 2228) 4.5 MEQ/L CHLORIDE (test code = 2215) 100 MEQ/L CARBON DIOXIDE (test code = 23 MEQ/L 2205) CALCIUM (test code = 2209) 9.5 MG/DL PROTEIN, TOTAL (test code = 7.3 G/DL 2228) ALBUMIN (test code = 2201) 4.4 G/DL CALC GLOBULIN (test code = 2.9 G/DL 2239) CALC A/G RATIO (test code = 1.5 RATIO 2234) BILIRUBIN, TOTAL (test code = 0.6 MG/DL 2206) ALKALINE PHOSPHATASE (test 110 U/L code = 2204) AST (test code = 2218) 26 U/L ALT (test code = 2219) 23 U/L COMPREHENSIVE METABOLIC [id number] 00:00:00 Test Item Value Reference Range Interpretation Comments GLUCOSE (test code = 2217) 87 MG/DL BUN (test code = 2208) 15 MG/DL CREATININE (test code = 2214) 1.14 MG/DL eGFR AMER. (test code 70 ML/MIN/1.73 = 78380) eGFR NON- AMER. (test 60 ML/MIN/1.73 code = 65383) CALC BUN/CREAT (test code = 13 RATIO 2235) SODIUM (test code = 2231) 138 MEQ/L POTASSIUM (test code = 2228) 4.5 MEQ/L CHLORIDE (test code = 2215) 100 MEQ/L CARBON DIOXIDE (test code = 23 MEQ/L 220) CALCIUM (test code = 2209) 9.5 MG/DL PROTEIN, TOTAL (test code = 7.3 G/DL 2228) ALBUMIN (test code = 2201) 4.4 G/DL CALC GLOBULIN (test code = 2.9 G/DL 2239) CALC A/G RATIO (test code = 1.5 RATIO 2234) BILIRUBIN, TOTAL (test code = 0.6 MG/DL 2206) ALKALINE PHOSPHATASE (test 110 U/L code = 2204) AST (test code = 2218) 26 U/L ALT (test code = 2219) 23 U/L VITAMIN D, 25 [id number] 00:00:00 Test Item Value Reference Range Interpretation Comments VITAMIN D, 25 OH (test code = 4958) 24 NG/ML HEMOGLOBIN [id number] 00:00:00 Test Item Value Reference Range Interpretation Comments HEMOGLOBIN A1c (test code = 72840) 5.5 % LIPID [id number] 00:00:00 Test Item Value Reference Range Interpretation Comments CHOLESTEROL (test code = 2210) 207 MG/DL TRIGLYCERIDES (test code = 2232) 156 MG/DL HDL CHOLESTEROL (test code = 2220) 65 MG/DL CALC LDL CHOL (test code = 2237) 115 MG/DL RISK RATIO LDL/HDL (test code = 1.77 RATIO 2238) LIPID [id number] 00:00:00 Test Item Value Reference Range Interpretation Comments CHOLESTEROL (test code = 2210) 207 MG/DL TRIGLYCERIDES (test code = 2232) 156 MG/DL HDL CHOLESTEROL (test code = 2220) 65 MG/DL CALC LDL CHOL (test code = 2237) 115 MG/DL RISK RATIO LDL/HDL (test code = 1.77 RATIO 2238) COMPREHENSIVE METABOLIC [id number] 00:00:00 Test Item Value Reference Range Interpretation Comments GLUCOSE (test code = 2217) 91 MG/DL BUN (test code = 2208) 15 MG/DL CREATININE (test code = 2214) 0.99 MG/DL eGFR AMER. (test code 83 ML/MIN/1.73 = 10744) eGFR NON- AMER. (test 72 ML/MIN/1.73 code = 58617) CALC BUN/CREAT (test code = 15 RATIO 2235) SODIUM (test code = 2231) 137 MEQ/L POTASSIUM (test code = 2228) 4.4 MEQ/L CHLORIDE (test code = 2215) 103 MEQ/L CARBON DIOXIDE (test code = 24 MEQ/L 2205) CALCIUM (test code = 2209) 9.0 MG/DL PROTEIN, TOTAL (test code = 7.1 G/DL 222) ALBUMIN (test code = 2201) 4.4 G/DL CALC GLOBULIN (test code = 2.7 G/DL 2240) CALC A/G RATIO (test code = 1.6 RATIO 2234) BILIRUBIN, TOTAL (test code = 0.6 MG/DL 2207) ALKALINE PHOSPHATASE (test 119 U/L code = 2204) AST (test code = 2218) 98 U/L ALT (test code = 2219) 130 U/L COMPREHENSIVE METABOLIC [id number] 00:00:00 Test Item Value Reference Range Interpretation Comments GLUCOSE (test code = 2217) 91 MG/DL BUN (test code = 2208) 15 MG/DL CREATININE (test code = 2214) 0.99 MG/DL eGFR AMER. (test code 83 ML/MIN/1.73 = 95083) eGFR NON- AMER. (test 72 ML/MIN/1.73 code = 59068) CALC BUN/CREAT (test code = 15 RATIO 2235) SODIUM (test code = 2231) 137 MEQ/L POTASSIUM (test code = 2228) 4.4 MEQ/L CHLORIDE (test code = 2215) 103 MEQ/L CARBON DIOXIDE (test code = 24 MEQ/L 2205) CALCIUM (test code = 2209) 9.0 MG/DL PROTEIN, TOTAL (test code = 7.1 G/DL 2228) ALBUMIN (test code = 2201) 4.4 G/DL CALC GLOBULIN (test code = 2.7 G/DL 2240) CALC A/G RATIO (test code = 1.6 RATIO 2234) BILIRUBIN, TOTAL (test code = 0.6 MG/DL 2207) ALKALINE PHOSPHATASE (test 119 U/L code = 2204) AST (test code = 2218) 98 U/L ALT (test code = 2219) 130 U/L [id number] 00:00:00 Test Item Value Reference Range Interpretation Comments TSH, THIRD GENERATION (test code 7.820 UIU/ML = 2821) [id number] 00:00:00 Test Item Value Reference Range Interpretation Comments TSH, THIRD GENERATION (test code 7.820 UIU/ML = 2821) [id number] 00:00:00 Test Item Value Reference Range Interpretation Comments TSH, THIRD GENERATION (test code 7.820 UIU/ML = 2821) VITAMIN D, 25 [id number] 00:00:00 Test Item Value Reference Range Interpretation Comments VITAMIN D, 25 OH (test code = 4958) 26 NG/ML VITAMIN D, 25 [id number] 00:00:00 Test Item Value Reference Range Interpretation Comments VITAMIN D, 25 OH (test code = 4958) 26 NG/ML HEMOGLOBIN [id number] 00:00:00 Test Item Value Reference Range Interpretation Comments HEMOGLOBIN A1c (test code = 35539) 5.5 % HEMOGLOBIN [id number] 00:00:00 Test Item Value Reference Range Interpretation Comments HEMOGLOBIN A1c (test code = 74218) 5.5 % HEMOGLOBIN [id number] 00:00:00 Test Item Value Reference Range Interpretation Comments HEMOGLOBIN A1c (test code = 24063) 5.5 % LIPID [id number] 00:00:00 Test Item Value Reference Range Interpretation Comments CHOLESTEROL (test code = 2210) 207 MG/DL TRIGLYCERIDES (test code = 2232) 156 MG/DL HDL CHOLESTEROL (test code = 2220) 65 MG/DL CALC LDL CHOL (test code = 2237) 115 MG/DL RISK RATIO LDL/HDL (test code = 1.77 RATIO 2238) LIPID [id number] 00:00:00 Test Item Value Reference Range Interpretation Comments CHOLESTEROL (test code = 2210) 207 MG/DL TRIGLYCERIDES (test code = 2232) 156 MG/DL HDL CHOLESTEROL (test code = 2220) 65 MG/DL CALC LDL CHOL (test code = 2237) 115 MG/DL RISK RATIO LDL/HDL (test code = 1.77 RATIO 2238) COMPREHENSIVE METABOLIC [id number] 00:00:00 Test Item Value Reference Range Interpretation Comments GLUCOSE (test code = 2217) 91 MG/DL BUN (test code = 2208) 15 MG/DL CREATININE (test code = 2214) 0.99 MG/DL eGFR AMER. (test code 83 ML/MIN/1.73 = 29109) eGFR NON- AMER. (test 72 ML/MIN/1.73 code = 76398) CALC BUN/CREAT (test code = 15 RATIO 2235) SODIUM (test code = 2231) 137 MEQ/L POTASSIUM (test code = 2228) 4.4 MEQ/L CHLORIDE (test code = 2215) 103 MEQ/L CARBON DIOXIDE (test code = 24 MEQ/L 220) CALCIUM (test code = 2209) 9.0 MG/DL PROTEIN, TOTAL (test code = 7.1 G/DL 2228) ALBUMIN (test code = 2201) 4.4 G/DL CALC GLOBULIN (test code = 2.7 G/DL 2240) CALC A/G RATIO (test code = 1.6 RATIO 2234) BILIRUBIN, TOTAL (test code = 0.6 MG/DL 2206) ALKALINE PHOSPHATASE (test 119 U/L code = 2204) AST (test code = 2218) 98 U/L ALT (test code = 2219) 130 U/L COMPREHENSIVE METABOLIC [id number] 00:00:00 Test Item Value Reference Range Interpretation Comments GLUCOSE (test code = 2217) 91 MG/DL BUN (test code = 2208) 15 MG/DL CREATININE (test code = 2214) 0.99 MG/DL eGFR AMER. (test code 83 ML/MIN/1.73 = 89077) eGFR NON- AMER. (test 72 ML/MIN/1.73 code = 49880) CALC BUN/CREAT (test code = 15 RATIO 2235) SODIUM (test code = 2231) 137 MEQ/L POTASSIUM (test code = 2228) 4.4 MEQ/L CHLORIDE (test code = 2215) 103 MEQ/L CARBON DIOXIDE (test code = 24 MEQ/L 2205) CALCIUM (test code = 2209) 9.0 MG/DL PROTEIN, TOTAL (test code = 7.1 G/DL 2228) ALBUMIN (test code = 2201) 4.4 G/DL CALC GLOBULIN (test code = 2.7 G/DL 2240) CALC A/G RATIO (test code = 1.6 RATIO 2234) BILIRUBIN, TOTAL (test code = 0.6 MG/DL 7) ALKALINE PHOSPHATASE (test 119 U/L code = 2204) AST (test code = 2218) 98 U/L ALT (test code = 2219) 130 U/L [id number] 00:00:00 Test Item Value Reference Range Interpretation Comments TSH, THIRD GENERATION (test code 7.820 UIU/ML = 2821) [id number] 00:00:00 Test Item Value Reference Range Interpretation Comments TSH, THIRD GENERATION (test code 7.820 UIU/ML = 2821) [id number] 00:00:00 Test Item Value Reference Range Interpretation Comments TSH, THIRD GENERATION (test code 7.820 UIU/ML = 2821) VITAMIN D, 25 [id number] 00:00:00 Test Item Value Reference Range Interpretation Comments VITAMIN D, 25 OH (test code = 4958) 26 NG/ML VITAMIN D, 25 [id number] 00:00:00 Test Item Value Reference Range Interpretation Comments VITAMIN D, 25 OH (test code = 4958) 26 NG/ML HEMOGLOBIN [id number] 00:00:00 Test Item Value Reference Range Interpretation Comments HEMOGLOBIN A1c (test code = 73262) 5.5 % HEMOGLOBIN [id number] 00:00:00 Test Item Value Reference Range Interpretation Comments HEMOGLOBIN A1c (test code = 34027) 5.5 % TSH, THIRD GENERATION [ADDED]2020-03-31 00:00:00 Test Item Value Reference Range Interpretation Comments TSH, THIRD GENERATION (test code 1.020 UIU/ML = 2821) NOTE: [ADDED]2020-03-31 00:00:00 Test Item Value Reference Range Interpretation Comments NOTE: (test code = 998) (NOTE) TSH, THIRD GENERATION [ADDED]2020-03-31 00:00:00 Test Item Value Reference Range Interpretation Comments TSH, THIRD GENERATION (test code 1.020 UIU/ML = 2821) TSH, THIRD GENERATION [ADDED]2020-03-31 00:00:00 Test Item Value Reference Range Interpretation Comments TSH, THIRD GENERATION (test code 1.020 UIU/ML = 2821) TSH, THIRD GENERATION [ADDED]2020-03-31 00:00:00 Test Item Value Reference Range Interpretation Comments TSH, THIRD GENERATION (test code 1.020 UIU/ML = 2821) NOTE: [ADDED]2020-03-31 00:00:00 Test Item Value Reference Range Interpretation Comments NOTE: (test code = 998) (NOTE) TSH, THIRD GENERATION [ADDED]2020-03-31 00:00:00 Test Item Value Reference Range Interpretation Comments TSH, THIRD GENERATION (test code 1.020 UIU/ML = 2821) TSH, THIRD GENERATION [ADDED]2020-03-31 00:00:00 Test Item Value Reference Range Interpretation Comments TSH, THIRD GENERATION (test code 1.020 UIU/ML = 2821) VITAMIN D, 25 [id number] 00:00:00 Test Item Value Reference Range Interpretation Comments VITAMIN D, 25 OH (test code = 4958) 34 NG/ML VITAMIN D, 25 [id number] 00:00:00 Test Item Value Reference Range Interpretation Comments VITAMIN D, 25 OH (test code = 4958) 34 NG/ML VITAMIN D, 25 [id number] 00:00:00 Test Item Value Reference Range Interpretation Comments VITAMIN D, 25 OH (test code = 4958) 34 NG/ML VITAMIN D, 25 [id number] 00:00:00 Test Item Value Reference Range Interpretation Comments VITAMIN D, 25 OH (test code = 4958) 34 NG/ML COMPREHENSIVE METABOLIC [id number] 00:00:00 Test Item Value Reference Range Interpretation Comments GLUCOSE (test code = 2217) 96 MG/DL BUN (test code = 2208) 15 MG/DL CREATININE (test code = 2214) 1.22 MG/DL eGFR AMER. (test code 65 ML/MIN/1.73 = 81600) eGFR NON- AMER. (test 56 ML/MIN/1.73 code = 22242) CALC BUN/CREAT (test code = 12 RATIO 2235) SODIUM (test code = 2231) 142 MEQ/L POTASSIUM (test code = 2228) 4.5 MEQ/L CHLORIDE (test code = 2215) 105 MEQ/L CARBON DIOXIDE (test code = 23 MEQ/L 2205) CALCIUM (test code = 2209) 9.7 MG/DL PROTEIN, TOTAL (test code = 7.8 G/DL 2228) ALBUMIN (test code = 2201) 4.7 G/DL CALC GLOBULIN (test code = 3.1 G/DL 2239) CALC A/G RATIO (test code = 1.5 RATIO 2233) BILIRUBIN, TOTAL (test code = 0.7 MG/DL 2206) ALKALINE PHOSPHATASE (test 84 U/L code = 2204) AST (test code = 2218) 20 U/L ALT (test code = 2219) 18 U/L COMPREHENSIVE METABOLIC [id number] 00:00:00 Test Item Value Reference Range Interpretation Comments GLUCOSE (test code = 2217) 96 MG/DL BUN (test code = 2208) 15 MG/DL CREATININE (test code = 2214) 1.22 MG/DL eGFR AMER. (test code 65 ML/MIN/1.73 = 00669) eGFR NON- AMER. (test 56 ML/MIN/1.73 code = 84165) CALC BUN/CREAT (test code = 12 RATIO 2235) SODIUM (test code = 2231) 142 MEQ/L POTASSIUM (test code = 2228) 4.5 MEQ/L CHLORIDE (test code = 2215) 105 MEQ/L CARBON DIOXIDE (test code = 23 MEQ/L 2205) CALCIUM (test code = 2209) 9.7 MG/DL PROTEIN, TOTAL (test code = 7.8 G/DL 2228) ALBUMIN (test code = 2201) 4.7 G/DL CALC GLOBULIN (test code = 3.1 G/DL 224) CALC A/G RATIO (test code = 1.5 RATIO 2234) BILIRUBIN, TOTAL (test code = 0.7 MG/DL 2206) ALKALINE PHOSPHATASE (test 84 U/L code = 2204) AST (test code = 2218) 20 U/L ALT (test code = 2219) 18 U/L LIPID [id number] 00:00:00 Test Item Value Reference Range Interpretation Comments CHOLESTEROL (test code = 2210) 213 MG/DL TRIGLYCERIDES (test code = 2232) 145 MG/DL HDL CHOLESTEROL (test code = 2220) 46 MG/DL CALC LDL CHOL (test code = 2237) 140 MG/DL RISK RATIO LDL/HDL (test code = 3.04 RATIO 2238) LIPID [id number] 00:00:00 Test Item Value Reference Range Interpretation Comments CHOLESTEROL (test code = 2210) 213 MG/DL TRIGLYCERIDES (test code = 2232) 145 MG/DL HDL CHOLESTEROL (test code = 2220) 46 MG/DL CALC LDL CHOL (test code = 2237) 140 MG/DL RISK RATIO LDL/HDL (test code = 3.04 RATIO 2238) COMPREHENSIVE METABOLIC [id number] 00:00:00 Test Item Value Reference Range Interpretation Comments GLUCOSE (test code = 2217) 96 MG/DL BUN (test code = 2208) 15 MG/DL CREATININE (test code = 2214) 1.22 MG/DL eGFR AMER. (test code 65 ML/MIN/1.73 = 65433) eGFR NON- AMER. (test 56 ML/MIN/1.73 code = 14842) CALC BUN/CREAT (test code = 12 RATIO 2235) SODIUM (test code = 2231) 142 MEQ/L POTASSIUM (test code = 2228) 4.5 MEQ/L CHLORIDE (test code = 2215) 105 MEQ/L CARBON DIOXIDE (test code = 23 MEQ/L 220) CALCIUM (test code = 2209) 9.7 MG/DL PROTEIN, TOTAL (test code = 7.8 G/DL 2228) ALBUMIN (test code = 2201) 4.7 G/DL CALC GLOBULIN (test code = 3.1 G/DL 2240) CALC A/G RATIO (test code = 1.5 RATIO 2234) BILIRUBIN, TOTAL (test code = 0.7 MG/DL 2206) ALKALINE PHOSPHATASE (test 84 U/L code = 2204) AST (test code = 2218) 20 U/L ALT (test code = 2219) 18 U/L COMPREHENSIVE METABOLIC [id number] 00:00:00 Test Item Value Reference Range Interpretation Comments GLUCOSE (test code = 2217) 96 MG/DL BUN (test code = 2208) 15 MG/DL CREATININE (test code = 2214) 1.22 MG/DL eGFR AMER. (test code 65 ML/MIN/1.73 = 52345) eGFR NON- AMER. (test 56 ML/MIN/1.73 code = 44477) CALC BUN/CREAT (test code = 12 RATIO 2235) SODIUM (test code = 2231) 142 MEQ/L POTASSIUM (test code = 2228) 4.5 MEQ/L CHLORIDE (test code = 2215) 105 MEQ/L CARBON DIOXIDE (test code = 23 MEQ/L 2206) CALCIUM (test code = 2209) 9.7 MG/DL PROTEIN, TOTAL (test code = 7.8 G/DL 2228) ALBUMIN (test code = 2201) 4.7 G/DL CALC GLOBULIN (test code = 3.1 G/DL 2240) CALC A/G RATIO (test code = 1.5 RATIO 2234) BILIRUBIN, TOTAL (test code = 0.7 MG/DL 2206) ALKALINE PHOSPHATASE (test 84 U/L code = 2204) AST (test code = 2218) 20 U/L ALT (test code = 2219) 18 U/L LIPID [id number] 00:00:00 Test Item Value Reference Range Interpretation Comments CHOLESTEROL (test code = 2210) 213 MG/DL TRIGLYCERIDES (test code = 2232) 145 MG/DL HDL CHOLESTEROL (test code = 2220) 46 MG/DL CALC LDL CHOL (test code = 2237) 140 MG/DL RISK RATIO LDL/HDL (test code = 3.04 RATIO 2238) LIPID [id number] 00:00:00 Test Item Value Reference Range Interpretation Comments CHOLESTEROL (test code = 2210) 213 MG/DL TRIGLYCERIDES (test code = 2232) 145 MG/DL HDL CHOLESTEROL (test code = 2220) 46 MG/DL CALC LDL CHOL (test code = 2237) 140 MG/DL RISK RATIO LDL/HDL (test code = 3.04 RATIO 2238) HEMOGLOBIN [id number] 00:00:00 Test Item Value Reference Range Interpretation Comments HEMOGLOBIN A1c (test code = 73124) 5.3 % HEMOGLOBIN [id number] 00:00:00 Test Item Value Reference Range Interpretation Comments HEMOGLOBIN A1c (test code = 84835) 5.3 % HEMOGLOBIN [id number] 00:00:00 Test Item Value Reference Range Interpretation Comments HEMOGLOBIN A1c (test code = 49179) 5.3 % HEMOGLOBIN [id number] 00:00:00 Test Item Value Reference Range Interpretation Comments HEMOGLOBIN A1c (test code = 88689) 5.3 % HEMOGLOBIN [id number] 00:00:00 Test Item Value Reference Range Interpretation Comments HEMOGLOBIN A1c (test code = 60311) 5.3 % HEMOGLOBIN [id number] 00:00:00 Test Item Value Reference Range Interpretation Comments HEMOGLOBIN A1c (test code = 65835) 5.3 % [id number] 00:00:00 Test Item Value Reference Range Interpretation Comments TSH, THIRD GENERATION (test code 1.950 UIU/ML = 2821) [id number] 00:00:00 Test Item Value Reference Range Interpretation Comments TSH, THIRD GENERATION (test code 1.950 UIU/ML = 2821) [id number] 00:00:00 Test Item Value Reference Range Interpretation Comments TSH, THIRD GENERATION (test code 1.950 UIU/ML = 2821) [id number] 00:00:00 Test Item Value Reference Range Interpretation Comments TSH, THIRD GENERATION (test code 1.950 UIU/ML = 2821) [id number] 00:00:00 Test Item Value Reference Range Interpretation Comments TSH, THIRD GENERATION (test code 1.950 UIU/ML = 2821) [id number] 00:00:00 Test Item Value Reference Range Interpretation Comments TSH, THIRD GENERATION (test code 1.950 UIU/ML = 2821) VITAMIN D, 25 [id number] 00:00:00 Test Item Value Reference Range Interpretation Comments VITAMIN D, 25 OH (test code = 4958) 48 NG/ML THYROID II PROFILE (T3U, T4, T7, TSH)[id number] 00:00:00 Test Item Value Reference Range Interpretation Comments T-UPTAKE (test code = 2817) 36.1 % THYROX. BIND. CAPAC. (test code 0.9 = 50009) T4 (THYROXINE) (test code = 11.7 UG/DL 2819) CORRECTED T4 (FTI) (test code = 13.0 UG/DL 2820) TSH, THIRD GENERATION (test code 0.075 UIU/ML = 2821) THYROID II PROFILE (T3U, T4, T7, TSH)2019-11-27 00:00:00 Test Item Value Reference Range Interpretation Comments T-UPTAKE (test code = 281) 36.1 % THYROX. BIND. CAPAC. (test code 0.9 = 45325) T4 (THYROXINE) (test code = 11.7 UG/DL 2819) CORRECTED T4 (FTI) (test code = 13.0 UG/DL 2820) TSH, THIRD GENERATION (test code 0.075 UIU/ML = 2821) VITAMIN D, 25 [id number] 00:00:00 Test Item Value Reference Range Interpretation Comments VITAMIN D, 25 OH (test code = 4958) 48 NG/ML VITAMIN D, 25 [id number] 00:00:00 Test Item Value Reference Range Interpretation Comments VITAMIN D, 25 OH (test code = 4958) 48 NG/ML THYROID II PROFILE (T3U, T4, T7, TSH)2019-11-27 00:00:00 Test Item Value Reference Range Interpretation Comments T-UPTAKE (test code = 2817) 36.1 % THYROX. BIND. CAPAC. (test code 0.9 = 24667) T4 (THYROXINE) (test code = 11.7 UG/DL 2819) CORRECTED T4 (FTI) (test code = 13.0 UG/DL 2820) TSH, THIRD GENERATION (test code 0.075 UIU/ML = 2821) THYROID II PROFILE (T3U, T4, T7, TSH)2019-11-27 00:00:00 Test Item Value Reference Range Interpretation Comments T-UPTAKE (test code = 2817) 36.1 % THYROX. BIND. CAPAC. (test code 0.9 = 20872) T4 (THYROXINE) (test code = 11.7 UG/DL 2819) CORRECTED T4 (FTI) (test code = 13.0 UG/DL 2820) TSH, THIRD GENERATION (test code 0.075 UIU/ML = 2821) VITAMIN D, 25 [id number] 00:00:00 Test Item Value Reference Range Interpretation Comments VITAMIN D, 25 OH (test code = 4958) 48 NG/ML THYROID II PROFILE (T3U, T4, T7, TSH)2019-10-29 00:00:00 Test Item Value Reference Range Interpretation Comments T-UPTAKE (test code = 2817) 41.9 % THYROX. BIND. CAPAC. (test code 0.7 = 47872) T4 (THYROXINE) (test code = 13.5 UG/DL 2819) CORRECTED T4 (FTI) (test code = 19.3 UG/DL 2820) TSH, THIRD GENERATION (test code 0.467 UIU/ML = 2821) THYROID II PROFILE (T3U, T4, T7, TSH)2019-10-29 00:00:00 Test Item Value Reference Range Interpretation Comments T-UPTAKE (test code = 2817) 41.9 % THYROX. BIND. CAPAC. (test code 0.7 = 81552) T4 (THYROXINE) (test code = 13.5 UG/DL 2819) CORRECTED T4 (FTI) (test code = 19.3 UG/DL 2820) TSH, THIRD GENERATION (test code 0.467 UIU/ML = 2821) THYROID II PROFILE (T3U, T4, T7, TSH)2019-10-29 00:00:00 Test Item Value Reference Range Interpretation Comments T-UPTAKE (test code = 2817) 41.9 % THYROX. BIND. CAPAC. (test code 0.7 = 18376) T4 (THYROXINE) (test code = 13.5 UG/DL 2819) CORRECTED T4 (FTI) (test code = 19.3 UG/DL 2820) TSH, THIRD GENERATION (test code 0.467 UIU/ML = 2821) THYROID II PROFILE (T3U, T4, T7, TSH)2019-10-29 00:00:00 Test Item Value Reference Range Interpretation Comments T-UPTAKE (test code = 2817) 41.9 % THYROX. BIND. CAPAC. (test code 0.7 = 90213) T4 (THYROXINE) (test code = 13.5 UG/DL 2819) CORRECTED T4 (FTI) (test code = 19.3 UG/DL 2820) TSH, THIRD GENERATION (test code 0.467 UIU/ML = 2821) CBC W/AUTO [id number] 00:00:00 Test Item Value Reference Range Interpretation Comments WBC (test code = 1001) 5.5 K/UL RBC (test code = 1002) 4.43 M/UL HEMOGLOBIN (test code = 1003) 14.2 G/DL HEMATOCRIT (test code = 1004) 41.8 % MCV (test code = 1005) 94.4 fL MCH (test code = 1006) 32.1 PG MCHC (test code = 1007) 34.0 G/DL RDW (test code = 1038) 11.6 % NEUTROPHILS (test code = 1008) 51.8 % LYMPHOCYTES (test code = 1010) 39.5 % MONOCYTES (test code = 1011) 6.2 % EOSINOPHILS (test code = 1012) 1.8 % BASOPHILS (test code = 1013) 0.7 % PLATELET COUNT (test code = 1015) 228 K/UL CBC W/AUTO [id number] 00:00:00 Test Item Value Reference Range Interpretation Comments WBC (test code = 1001) 5.5 K/UL RBC (test code = 1002) 4.43 M/UL HEMOGLOBIN (test code = 1003) 14.2 G/DL HEMATOCRIT (test code = 1004) 41.8 % MCV (test code = 1005) 94.4 fL MCH (test code = 1006) 32.1 PG MCHC (test code = 1007) 34.0 G/DL RDW (test code = 1038) 11.6 % NEUTROPHILS (test code = 1008) 51.8 % LYMPHOCYTES (test code = 1010) 39.5 % MONOCYTES (test code = 1011) 6.2 % EOSINOPHILS (test code = 1012) 1.8 % BASOPHILS (test code = 1013) 0.7 % PLATELET COUNT (test code = 1015) 228 K/UL CBC W/AUTO [id number] 00:00:00 Test Item Value Reference Range Interpretation Comments WBC (test code = 1001) 5.5 K/UL RBC (test code = 1002) 4.43 M/UL HEMOGLOBIN (test code = 1003) 14.2 G/DL HEMATOCRIT (test code = 1004) 41.8 % MCV (test code = 1005) 94.4 fL MCH (test code = 1006) 32.1 PG MCHC (test code = 1007) 34.0 G/DL RDW (test code = 1038) 11.6 % NEUTROPHILS (test code = 1008) 51.8 % LYMPHOCYTES (test code = 1010) 39.5 % MONOCYTES (test code = 1011) 6.2 % EOSINOPHILS (test code = 1012) 1.8 % BASOPHILS (test code = 1013) 0.7 % PLATELET COUNT (test code = 1015) 228 K/UL HEMOGLOBIN [id number] 00:00:00 Test Item Value Reference Range Interpretation Comments HEMOGLOBIN A1c (test code = 10573) 5.4 % HEMOGLOBIN [id number] 00:00:00 Test Item Value Reference Range Interpretation Comments HEMOGLOBIN A1c (test code = 13254) 5.4 % HEMOGLOBIN [id number] 00:00:00 Test Item Value Reference Range Interpretation Comments HEMOGLOBIN A1c (test code = 20096) 5.4 % LIPID [id number] 00:00:00 Test Item Value Reference Range Interpretation Comments CHOLESTEROL (test code = 2210) 184 MG/DL TRIGLYCERIDES (test code = 2232) 95 MG/DL HDL CHOLESTEROL (test code = 2220) 51 MG/DL CALC LDL CHOL (test code = 2237) 114 MG/DL RISK RATIO LDL/HDL (test code = 2.24 RATIO 2238) LIPID [id number] 00:00:00 Test Item Value Reference Range Interpretation Comments CHOLESTEROL (test code = 2210) 184 MG/DL TRIGLYCERIDES (test code = 2232) 95 MG/DL HDL CHOLESTEROL (test code = 2220) 51 MG/DL CALC LDL CHOL (test code = 2237) 114 MG/DL RISK RATIO LDL/HDL (test code = 2.24 RATIO 2238) [id number] 00:00:00 Test Item Value Reference Range Interpretation Comments TSH, THIRD GENERATION (test code 2.720 UIU/ML = 2821) [id number] 00:00:00 Test Item Value Reference Range Interpretation Comments TSH, THIRD GENERATION (test code 2.720 UIU/ML = 2821) [id number] 00:00:00 Test Item Value Reference Range Interpretation Comments TSH, THIRD GENERATION (test code 2.720 UIU/ML = 2821) VITAMIN B 12 AND FOLIC [id number] 00:00:00 Test Item Value Reference Range Interpretation Comments VITAMIN B-12 (test code = 2840) >2000 PG/ML FOLIC ACID (test code = 2695) 5.4 UG/L VITAMIN B 12 AND FOLIC [id number] 00:00:00 Test Item Value Reference Range Interpretation Comments VITAMIN B-12 (test code = 2840) >2000 PG/ML FOLIC ACID (test code = 2695) 5.4 UG/L VITAMIN D, 25 [id number] 00:00:00 Test Item Value Reference Range Interpretation Comments VITAMIN D, 25 OH (test code = 4958) 24 NG/ML VITAMIN D, 25 [id number] 00:00:00 Test Item Value Reference Range Interpretation Comments VITAMIN D, 25 OH (test code = 4958) 24 NG/ML COMPREHENSIVE METABOLIC [id number] 00:00:00 Test Item Value Reference Range Interpretation Comments GLUCOSE (test code = 2217) 93 MG/DL BUN (test code = 2208) 12 MG/DL CREATININE (test code = 2214) 1.12 MG/DL eGFR AMER. (test code 73 ML/MIN/1.73 = 95775) eGFR NON- AMER. (test 63 ML/MIN/1.73 code = 03014) CALC BUN/CREAT (test code = 11 RATIO 2235) SODIUM (test code = 2231) 141 MEQ/L POTASSIUM (test code = 2228) 4.3 MEQ/L CHLORIDE (test code = 2215) 102 MEQ/L CARBON DIOXIDE (test code = 24 MEQ/L 220) CALCIUM (test code = 2209) 9.4 MG/DL PROTEIN, TOTAL (test code = 7.3 G/DL 2228) ALBUMIN (test code = 2201) 4.6 G/DL CALC GLOBULIN (test code = 2.7 G/DL 2240) CALC A/G RATIO (test code = 1.7 RATIO 2234) BILIRUBIN, TOTAL (test code = 0.7 MG/DL 2206) ALKALINE PHOSPHATASE (test 77 U/L code = 2204) AST (test code = 2218) 18 U/L ALT (test code = 2219) 14 U/L COMPREHENSIVE METABOLIC [id number] 00:00:00 Test Item Value Reference Range Interpretation Comments GLUCOSE (test code = 2217) 93 MG/DL BUN (test code = 2208) 12 MG/DL CREATININE (test code = 2214) 1.12 MG/DL eGFR AMER. (test code 73 ML/MIN/1.73 = 29461) eGFR NON- AMER. (test 63 ML/MIN/1.73 code = 06237) CALC BUN/CREAT (test code = 11 RATIO 2235) SODIUM (test code = 2231) 141 MEQ/L POTASSIUM (test code = 2228) 4.3 MEQ/L CHLORIDE (test code = 2215) 102 MEQ/L CARBON DIOXIDE (test code = 24 MEQ/L 2205) CALCIUM (test code = 2209) 9.4 MG/DL PROTEIN, TOTAL (test code = 7.3 G/DL 2228) ALBUMIN (test code = 2201) 4.6 G/DL CALC GLOBULIN (test code = 2.7 G/DL 2240) CALC A/G RATIO (test code = 1.7 RATIO 2234) BILIRUBIN, TOTAL (test code = 0.7 MG/DL 2206) ALKALINE PHOSPHATASE (test 77 U/L code = 2204) AST (test code = 2218) 18 U/L ALT (test code = 2219) 14 U/L CBC W/AUTO [id number] 00:00:00 Test Item Value Reference Range Interpretation Comments WBC (test code = 1001) 5.5 K/UL RBC (test code = 1002) 4.43 M/UL HEMOGLOBIN (test code = 1003) 14.2 G/DL HEMATOCRIT (test code = 1004) 41.8 % MCV (test code = 1005) 94.4 fL MCH (test code = 1006) 32.1 PG MCHC (test code = 1007) 34.0 G/DL RDW (test code = 1038) 11.6 % NEUTROPHILS (test code = 1008) 51.8 % LYMPHOCYTES (test code = 1010) 39.5 % MONOCYTES (test code = 1011) 6.2 % EOSINOPHILS (test code = 1012) 1.8 % BASOPHILS (test code = 1013) 0.7 % PLATELET COUNT (test code = 1015) 228 K/UL CBC W/AUTO [id number] 00:00:00 Test Item Value Reference Range Interpretation Comments WBC (test code = 1001) 5.5 K/UL RBC (test code = 1002) 4.43 M/UL HEMOGLOBIN (test code = 1003) 14.2 G/DL HEMATOCRIT (test code = 1004) 41.8 % MCV (test code = 1005) 94.4 fL MCH (test code = 1006) 32.1 PG MCHC (test code = 1007) 34.0 G/DL RDW (test code = 1038) 11.6 % NEUTROPHILS (test code = 1008) 51.8 % LYMPHOCYTES (test code = 1010) 39.5 % MONOCYTES (test code = 1011) 6.2 % EOSINOPHILS (test code = 1012) 1.8 % BASOPHILS (test code = 1013) 0.7 % PLATELET COUNT (test code = 1015) 228 K/UL CBC W/AUTO [id number] 00:00:00 Test Item Value Reference Range Interpretation Comments WBC (test code = 1001) 5.5 K/UL RBC (test code = 1002) 4.43 M/UL HEMOGLOBIN (test code = 1003) 14.2 G/DL HEMATOCRIT (test code = 1004) 41.8 % MCV (test code = 1005) 94.4 fL MCH (test code = 1006) 32.1 PG MCHC (test code = 1007) 34.0 G/DL RDW (test code = 1038) 11.6 % NEUTROPHILS (test code = 1008) 51.8 % LYMPHOCYTES (test code = 1010) 39.5 % MONOCYTES (test code = 1011) 6.2 % EOSINOPHILS (test code = 1012) 1.8 % BASOPHILS (test code = 1013) 0.7 % PLATELET COUNT (test code = 1015) 228 K/UL HEMOGLOBIN [id number] 00:00:00 Test Item Value Reference Range Interpretation Comments HEMOGLOBIN A1c (test code = 42969) 5.4 % HEMOGLOBIN [id number] 00:00:00 Test Item Value Reference Range Interpretation Comments HEMOGLOBIN A1c (test code = 63885) 5.4 % HEMOGLOBIN [id number] 00:00:00 Test Item Value Reference Range Interpretation Comments HEMOGLOBIN A1c (test code = 32864) 5.4 % LIPID [id number] 00:00:00 Test Item Value Reference Range Interpretation Comments CHOLESTEROL (test code = 2210) 184 MG/DL TRIGLYCERIDES (test code = 2232) 95 MG/DL HDL CHOLESTEROL (test code = 2220) 51 MG/DL CALC LDL CHOL (test code = 2237) 114 MG/DL RISK RATIO LDL/HDL (test code = 2.24 RATIO 2238) LIPID [id number] 00:00:00 Test Item Value Reference Range Interpretation Comments CHOLESTEROL (test code = 2210) 184 MG/DL TRIGLYCERIDES (test code = 2232) 95 MG/DL HDL CHOLESTEROL (test code = 2220) 51 MG/DL CALC LDL CHOL (test code = 2237) 114 MG/DL RISK RATIO LDL/HDL (test code = 2.24 RATIO 2238) [id number] 00:00:00 Test Item Value Reference Range Interpretation Comments TSH, THIRD GENERATION (test code 2.720 UIU/ML = 2821) [id number] 00:00:00 Test Item Value Reference Range Interpretation Comments TSH, THIRD GENERATION (test code 2.720 UIU/ML = 2821) [id number] 00:00:00 Test Item Value Reference Range Interpretation Comments TSH, THIRD GENERATION (test code 2.720 UIU/ML = 2821) VITAMIN B 12 AND FOLIC [id number] 00:00:00 Test Item Value Reference Range Interpretation Comments VITAMIN B-12 (test code = 2840) >2000 PG/ML FOLIC ACID (test code = 2695) 5.4 UG/L VITAMIN B 12 AND FOLIC [id number] 00:00:00 Test Item Value Reference Range Interpretation Comments VITAMIN B-12 (test code = 2840) >2000 PG/ML FOLIC ACID (test code = 2695) 5.4 UG/L VITAMIN D, 25 [id number] 00:00:00 Test Item Value Reference Range Interpretation Comments VITAMIN D, 25 OH (test code = 4958) 24 NG/ML VITAMIN D, 25 [id number] 00:00:00 Test Item Value Reference Range Interpretation Comments VITAMIN D, 25 OH (test code = 4958) 24 NG/ML COMPREHENSIVE METABOLIC [id number] 00:00:00 Test Item Value Reference Range Interpretation Comments GLUCOSE (test code = 2217) 93 MG/DL BUN (test code = 2208) 12 MG/DL CREATININE (test code = 2214) 1.12 MG/DL eGFR AMER. (test code 73 ML/MIN/1.73 = 61220) eGFR NON- AMER. (test 63 ML/MIN/1.73 code = 69868) CALC BUN/CREAT (test code = 11 RATIO 2235) SODIUM (test code = 2231) 141 MEQ/L POTASSIUM (test code = 2228) 4.3 MEQ/L CHLORIDE (test code = 2215) 102 MEQ/L CARBON DIOXIDE (test code = 24 MEQ/L 2205) CALCIUM (test code = 2209) 9.4 MG/DL PROTEIN, TOTAL (test code = 7.3 G/DL 2228) ALBUMIN (test code = 2201) 4.6 G/DL CALC GLOBULIN (test code = 2.7 G/DL 0) CALC A/G RATIO (test code = 1.7 RATIO 4) BILIRUBIN, TOTAL (test code = 0.7 MG/DL 2206) ALKALINE PHOSPHATASE (test 77 U/L code = 2204) AST (test code = 2218) 18 U/L ALT (test code = 2219) 14 U/L COMPREHENSIVE METABOLIC [id number] 00:00:00 Test Item Value Reference Range Interpretation Comments GLUCOSE (test code = 2217) 93 MG/DL BUN (test code = 2208) 12 MG/DL CREATININE (test code = 2214) 1.12 MG/DL eGFR AMER. (test code 73 ML/MIN/1.73 = 97439) eGFR NON- AMER. (test 63 ML/MIN/1.73 code = 43933) CALC BUN/CREAT (test code = 11 RATIO 2235) SODIUM (test code = 2231) 141 MEQ/L POTASSIUM (test code = 2228) 4.3 MEQ/L CHLORIDE (test code = 2215) 102 MEQ/L CARBON DIOXIDE (test code = 24 MEQ/L 220) CALCIUM (test code = 2209) 9.4 MG/DL PROTEIN, TOTAL (test code = 7.3 G/DL 2228) ALBUMIN (test code = 2201) 4.6 G/DL CALC GLOBULIN (test code = 2.7 G/DL 224) CALC A/G RATIO (test code = 1.7 RATIO 2234) BILIRUBIN, TOTAL (test code = 0.7 MG/DL 2206) ALKALINE PHOSPHATASE (test 77 U/L code = 2204) AST (test code = 2218) 18 U/L ALT (test code = 2219) 14 U/L LIPID [id number] 00:00:00 Test Item Value Reference Range Interpretation Comments CHOLESTEROL (test code = 2210) 206 MG/DL TRIGLYCERIDES (test code = 2232) 94 MG/DL HDL CHOLESTEROL (test code = 2220) 61 MG/DL CALC LDL CHOL (test code = 2237) 126 MG/DL RISK RATIO LDL/HDL (test code = 2.07 RATIO 2238) LIPID [id number] 00:00:00 Test Item Value Reference Range Interpretation Comments CHOLESTEROL (test code = 2210) 206 MG/DL TRIGLYCERIDES (test code = 2232) 94 MG/DL HDL CHOLESTEROL (test code = 2220) 61 MG/DL CALC LDL CHOL (test code = 2237) 126 MG/DL RISK RATIO LDL/HDL (test code = 2.07 RATIO 2238) CBC W/AUTO [id number] 00:00:00 Test Item Value Reference Range Interpretation Comments WBC (test code = 1001) 6.6 K/UL RBC (test code = 1002) 4.22 M/UL HEMOGLOBIN (test code = 1003) 13.4 G/DL HEMATOCRIT (test code = 1004) 39.8 % MCV (test code = 1005) 94.3 fL MCH (test code = 1006) 31.8 PG MCHC (test code = 1007) 33.7 G/DL RDW (test code = 1038) 13.4 % NEUTROPHILS (test code = 1008) 59 % LYMPHOCYTES (test code = 1010) 33 % MONOCYTES (test code = 1011) 7 % EOSINOPHILS (test code = 1012) 2 % BASOPHILS (test code = 1013) % PLATELET COUNT (test code = 1015) 300 K/UL CBC W/AUTO [id number] 00:00:00 Test Item Value Reference Range Interpretation Comments WBC (test code = 1001) 6.6 K/UL RBC (test code = 1002) 4.22 M/UL HEMOGLOBIN (test code = 1003) 13.4 G/DL HEMATOCRIT (test code = 1004) 39.8 % MCV (test code = 1005) 94.3 fL MCH (test code = 1006) 31.8 PG MCHC (test code = 1007) 33.7 G/DL RDW (test code = 1038) 13.4 % NEUTROPHILS (test code = 1008) 59 % LYMPHOCYTES (test code = 1010) 33 % MONOCYTES (test code = 1011) 7 % EOSINOPHILS (test code = 1012) 2 % BASOPHILS (test code = 1013) % PLATELET COUNT (test code = 1015) 300 K/UL CBC W/AUTO [id number] 00:00:00 Test Item Value Reference Range Interpretation Comments WBC (test code = 1001) 6.6 K/UL RBC (test code = 1002) 4.22 M/UL HEMOGLOBIN (test code = 1003) 13.4 G/DL HEMATOCRIT (test code = 1004) 39.8 % MCV (test code = 1005) 94.3 fL MCH (test code = 1006) 31.8 PG MCHC (test code = 1007) 33.7 G/DL RDW (test code = 1038) 13.4 % NEUTROPHILS (test code = 1008) 59 % LYMPHOCYTES (test code = 1010) 33 % MONOCYTES (test code = 1011) 7 % EOSINOPHILS (test code = 1012) 2 % BASOPHILS (test code = 1013) % PLATELET COUNT (test code = 1015) 300 K/UL HEMOGLOBIN [id number] 00:00:00 Test Item Value Reference Range Interpretation Comments HEMOGLOBIN A1c (test code = 13718) 5.7 % HEMOGLOBIN [id number] 00:00:00 Test Item Value Reference Range Interpretation Comments HEMOGLOBIN A1c (test code = 68766) 5.7 % HEMOGLOBIN [id number] 00:00:00 Test Item Value Reference Range Interpretation Comments HEMOGLOBIN A1c (test code = 41158) 5.7 % [id number] 00:00:00 Test Item Value Reference Range Interpretation Comments TSH (test code = 2821) 1.3 UIU/ML [id number] 00:00:00 Test Item Value Reference Range Interpretation Comments TSH (test code = 2821) 1.3 UIU/ML [id number] 00:00:00 Test Item Value Reference Range Interpretation Comments TSH (test code = 2821) 1.3 UIU/ML COMPREHENSIVE METABOLIC [id number] 00:00:00 Test Item Value Reference Range Interpretation Comments GLUCOSE (test code = 2217) 87 MG/DL BUN (test code = 2208) 19 MG/DL CREATININE (test code = 2214) 1.13 MG/DL eGFR AMER. (test code 73 ML/MIN/1.73 = 03793) eGFR NON- AMER. (test 63 ML/MIN/1.73 code = 15077) CALC BUN/CREAT (test code = 17 RATIO 2235) SODIUM (test code = 2231) 139 MEQ/L POTASSIUM (test code = 2228) 4.1 MEQ/L CHLORIDE (test code = 2215) 99 MEQ/L CARBON DIOXIDE (test code = 23 MEQ/L 2205) CALCIUM (test code = 2209) 10.1 MG/DL PROTEIN, TOTAL (test code = 8.3 G/DL 2228) ALBUMIN (test code = 2201) 5.3 G/DL CALC GLOBULIN (test code = 3.0 G/DL 2239) CALC A/G RATIO (test code = 1.8 RATIO 4) BILIRUBIN, TOTAL (test code = 0.7 MG/DL 2206) ALKALINE PHOSPHATASE (test 69 U/L code = 2204) AST (test code = 2218) 18 U/L ALT (test code = 2219) 10 U/L COMPREHENSIVE METABOLIC [id number] 00:00:00 Test Item Value Reference Range Interpretation Comments GLUCOSE (test code = 2217) 87 MG/DL BUN (test code = 2208) 19 MG/DL CREATININE (test code = 2214) 1.13 MG/DL eGFR AMER. (test code 73 ML/MIN/1.73 = 87512) eGFR NON- AMER. (test 63 ML/MIN/1.73 code = 67282) CALC BUN/CREAT (test code = 17 RATIO 2235) SODIUM (test code = 2231) 139 MEQ/L POTASSIUM (test code = 2228) 4.1 MEQ/L CHLORIDE (test code = 2215) 99 MEQ/L CARBON DIOXIDE (test code = 23 MEQ/L 2205) CALCIUM (test code = 2209) 10.1 MG/DL PROTEIN, TOTAL (test code = 8.3 G/DL 2228) ALBUMIN (test code = 2201) 5.3 G/DL CALC GLOBULIN (test code = 3.0 G/DL 2239) CALC A/G RATIO (test code = 1.8 RATIO 2233) BILIRUBIN, TOTAL (test code = 0.7 MG/DL 2206) ALKALINE PHOSPHATASE (test 69 U/L code = 2204) AST (test code = 2218) 18 U/L ALT (test code = 2219) 10 U/L LIPID [id number] 00:00:00 Test Item Value Reference Range Interpretation Comments CHOLESTEROL (test code = 2210) 206 MG/DL TRIGLYCERIDES (test code = 2232) 94 MG/DL HDL CHOLESTEROL (test code = 2220) 61 MG/DL CALC LDL CHOL (test code = 2237) 126 MG/DL RISK RATIO LDL/HDL (test code = 2.07 RATIO 2238) LIPID [id number] 00:00:00 Test Item Value Reference Range Interpretation Comments CHOLESTEROL (test code = 2210) 206 MG/DL TRIGLYCERIDES (test code = 2232) 94 MG/DL HDL CHOLESTEROL (test code = 2220) 61 MG/DL CALC LDL CHOL (test code = 2237) 126 MG/DL RISK RATIO LDL/HDL (test code = 2.07 RATIO 2238) CBC W/AUTO [id number] 00:00:00 Test Item Value Reference Range Interpretation Comments WBC (test code = 1001) 6.6 K/UL RBC (test code = 1002) 4.22 M/UL HEMOGLOBIN (test code = 1003) 13.4 G/DL HEMATOCRIT (test code = 1004) 39.8 % MCV (test code = 1005) 94.3 fL MCH (test code = 1006) 31.8 PG MCHC (test code = 1007) 33.7 G/DL RDW (test code = 1038) 13.4 % NEUTROPHILS (test code = 1008) 59 % LYMPHOCYTES (test code = 1010) 33 % MONOCYTES (test code = 1011) 7 % EOSINOPHILS (test code = 1012) 2 % BASOPHILS (test code = 1013) % PLATELET COUNT (test code = 1015) 300 K/UL CBC W/AUTO [id number] 00:00:00 Test Item Value Reference Range Interpretation Comments WBC (test code = 1001) 6.6 K/UL RBC (test code = 1002) 4.22 M/UL HEMOGLOBIN (test code = 1003) 13.4 G/DL HEMATOCRIT (test code = 1004) 39.8 % MCV (test code = 1005) 94.3 fL MCH (test code = 1006) 31.8 PG MCHC (test code = 1007) 33.7 G/DL RDW (test code = 1038) 13.4 % NEUTROPHILS (test code = 1008) 59 % LYMPHOCYTES (test code = 1010) 33 % MONOCYTES (test code = 1011) 7 % EOSINOPHILS (test code = 1012) 2 % BASOPHILS (test code = 1013) % PLATELET COUNT (test code = 1015) 300 K/UL CBC W/AUTO [id number] 00:00:00 Test Item Value Reference Range Interpretation Comments WBC (test code = 1001) 6.6 K/UL RBC (test code = 1002) 4.22 M/UL HEMOGLOBIN (test code = 1003) 13.4 G/DL HEMATOCRIT (test code = 1004) 39.8 % MCV (test code = 1005) 94.3 fL MCH (test code = 1006) 31.8 PG MCHC (test code = 1007) 33.7 G/DL RDW (test code = 1038) 13.4 % NEUTROPHILS (test code = 1008) 59 % LYMPHOCYTES (test code = 1010) 33 % MONOCYTES (test code = 1011) 7 % EOSINOPHILS (test code = 1012) 2 % BASOPHILS (test code = 1013) % PLATELET COUNT (test code = 1015) 300 K/UL HEMOGLOBIN [id number] 00:00:00 Test Item Value Reference Range Interpretation Comments HEMOGLOBIN A1c (test code = 23566) 5.7 % HEMOGLOBIN [id number] 00:00:00 Test Item Value Reference Range Interpretation Comments HEMOGLOBIN A1c (test code = 19694) 5.7 % HEMOGLOBIN [id number] 00:00:00 Test Item Value Reference Range Interpretation Comments HEMOGLOBIN A1c (test code = 57575) 5.7 % [id number] 00:00:00 Test Item Value Reference Range Interpretation Comments TSH (test code = 2821) 1.3 UIU/ML [id number] 00:00:00 Test Item Value Reference Range Interpretation Comments TSH (test code = 2821) 1.3 UIU/ML [id number] 00:00:00 Test Item Value Reference Range Interpretation Comments TSH (test code = 2821) 1.3 UIU/ML COMPREHENSIVE METABOLIC [id number] 00:00:00 Test Item Value Reference Range Interpretation Comments GLUCOSE (test code = 2217) 87 MG/DL BUN (test code = 2208) 19 MG/DL CREATININE (test code = 2214) 1.13 MG/DL eGFR AMER. (test code 73 ML/MIN/1.73 = 83029) eGFR NON- AMER. (test 63 ML/MIN/1.73 code = 25057) CALC BUN/CREAT (test code = 17 RATIO 2235) SODIUM (test code = 2231) 139 MEQ/L POTASSIUM (test code = 2228) 4.1 MEQ/L CHLORIDE (test code = 2215) 99 MEQ/L CARBON DIOXIDE (test code = 23 MEQ/L 2205) CALCIUM (test code = 2209) 10.1 MG/DL PROTEIN, TOTAL (test code = 8.3 G/DL 2228) ALBUMIN (test code = 2201) 5.3 G/DL CALC GLOBULIN (test code = 3.0 G/DL 2239) CALC A/G RATIO (test code = 1.8 RATIO 2234) BILIRUBIN, TOTAL (test code = 0.7 MG/DL 2206) ALKALINE PHOSPHATASE (test 69 U/L code = 2204) AST (test code = 2218) 18 U/L ALT (test code = 2219) 10 U/L COMPREHENSIVE METABOLIC [id number] 00:00:00 Test Item Value Reference Range Interpretation Comments GLUCOSE (test code = 2217) 87 MG/DL BUN (test code = 2208) 19 MG/DL CREATININE (test code = 2214) 1.13 MG/DL eGFR AMER. (test code 73 ML/MIN/1.73 = 16497) eGFR NON- AMER. (test 63 ML/MIN/1.73 code = 63880) CALC BUN/CREAT (test code = 17 RATIO 2235) SODIUM (test code = 2231) 139 MEQ/L POTASSIUM (test code = 2228) 4.1 MEQ/L CHLORIDE (test code = 2215) 99 MEQ/L CARBON DIOXIDE (test code = 23 MEQ/L 220) CALCIUM (test code = 2209) 10.1 MG/DL PROTEIN, TOTAL (test code = 8.3 G/DL 2228) ALBUMIN (test code = 2201) 5.3 G/DL CALC GLOBULIN (test code = 3.0 G/DL 2240) CALC A/G RATIO (test code = 1.8 RATIO 2234) BILIRUBIN, TOTAL (test code = 0.7 MG/DL 2206) ALKALINE PHOSPHATASE (test 69 U/L code = 2204) AST (test code = 2218) 18 U/L ALT (test code = 2219) 10 U/L CBC W/AUTO [id number] 00:00:00 Test Item Value Reference Range Interpretation Comments WBC (test code = 1001) 6.8 K/UL RBC (test code = 1002) 3.68 M/UL HEMOGLOBIN (test code = 1003) 11.7 G/DL HEMATOCRIT (test code = 1004) 35.0 % MCV (test code = 1005) 95.1 fL MCH (test code = 1006) 31.8 PG MCHC (test code = 1007) 33.4 G/DL RDW (test code = 1038) 13.7 % NEUTROPHILS (test code = 1008) 61 % LYMPHOCYTES (test code = 1010) 31 % MONOCYTES (test code = 1011) 6 % EOSINOPHILS (test code = 1012) 2 % BASOPHILS (test code = 1013) % PLATELET COUNT (test code = 1015) 267 K/UL [id number] 00:00:00 Test Item Value Reference Range Interpretation Comments TSH (test code = 2821) 3.6 UIU/ML [id number] 00:00:00 Test Item Value Reference Range Interpretation Comments TSH (test code = 2821) 3.6 UIU/ML [id number] 00:00:00 Test Item Value Reference Range Interpretation Comments TSH (test code = 2821) 3.6 UIU/ML LIPID [id number] 00:00:00 Test Item Value Reference Range Interpretation Comments CHOLESTEROL (test code = 2210) 195 MG/DL TRIGLYCERIDES (test code = 2232) 98 MG/DL HDL CHOLESTEROL (test code = 2220) 50 MG/DL CALCULATED LDL CHOL (test code = 125 MG/DL 2237) RISK RATIO LDL/HDL (test code = 2.51 RATIO 2238) LIPID [id number] 00:00:00 Test Item Value Reference Range Interpretation Comments CHOLESTEROL (test code = 2210) 195 MG/DL TRIGLYCERIDES (test code = 2232) 98 MG/DL HDL CHOLESTEROL (test code = 2220) 50 MG/DL CALCULATED LDL CHOL (test code = 125 MG/DL 2237) RISK RATIO LDL/HDL (test code = 2.51 RATIO 2238) COMPREHENSIVE METABOLIC [id number] 00:00:00 Test Item Value Reference Range Interpretation Comments GLUCOSE (test code = 2217) 86 MG/DL BUN (test code = 2208) 13 MG/DL CREATININE (test code = 2214) 1.1 MG/DL eGFR AMER. (test code 69 ML/MIN/1.73 = 34273) eGFR NON- AMER. (test 57 ML/MIN/1.73 code = 84701) CALCULATED BUN/CREAT (test 12 RATIO code = 2235) SODIUM (test code = 2231) 140 MEQ/L POTASSIUM (test code = 2228) 4.4 MEQ/L CHLORIDE (test code = 2215) 100 MEQ/L CARBON DIOXIDE (test code = 28 MEQ/L 2206) CALCIUM (test code = 2209) 9.5 MG/DL PROTEIN, TOTAL (test code = 7.4 G/DL 2228) ALBUMIN (test code = 2201) 4.4 G/DL CALCULATED GLOBULIN (test code 3.0 G/DL = 2240) CALCULATED A/G RATIO (test 1.5 RATIO code = 2234) BILIRUBIN, TOTAL (test code = 0.6 MG/DL 2206) ALKALINE PHOSPHATASE (test 66 U/L code = 2204) SGOT (AST) (test code = 2218) 13 U/L SGPT (ALT) (test code = 2219) 8 U/L COMPREHENSIVE METABOLIC [id number] 00:00:00 Test Item Value Reference Range Interpretation Comments GLUCOSE (test code = 2217) 86 MG/DL BUN (test code = 2208) 13 MG/DL CREATININE (test code = 2214) 1.1 MG/DL eGFR AMER. (test code 69 ML/MIN/1.73 = 24160) eGFR NON- AMER. (test 57 ML/MIN/1.73 code = 11896) CALCULATED BUN/CREAT (test 12 RATIO code = 2235) SODIUM (test code = 2231) 140 MEQ/L POTASSIUM (test code = 2228) 4.4 MEQ/L CHLORIDE (test code = 2215) 100 MEQ/L CARBON DIOXIDE (test code = 28 MEQ/L 2205) CALCIUM (test code = 2209) 9.5 MG/DL PROTEIN, TOTAL (test code = 7.4 G/DL 2228) ALBUMIN (test code = 2201) 4.4 G/DL CALCULATED GLOBULIN (test code 3.0 G/DL = 2240) CALCULATED A/G RATIO (test 1.5 RATIO code = 2234) BILIRUBIN, TOTAL (test code = 0.6 MG/DL 2206) ALKALINE PHOSPHATASE (test 66 U/L code = 2204) SGOT (AST) (test code = 2218) 13 U/L SGPT (ALT) (test code = 2219) 8 U/L CBC W/AUTO [id number] 00:00:00 Test Item Value Reference Range Interpretation Comments WBC (test code = 1001) 6.8 K/UL RBC (test code = 1002) 3.68 M/UL HEMOGLOBIN (test code = 1003) 11.7 G/DL HEMATOCRIT (test code = 1004) 35.0 % MCV (test code = 1005) 95.1 fL MCH (test code = 1006) 31.8 PG MCHC (test code = 1007) 33.4 G/DL RDW (test code = 1038) 13.7 % NEUTROPHILS (test code = 1008) 61 % LYMPHOCYTES (test code = 1010) 31 % MONOCYTES (test code = 1011) 6 % EOSINOPHILS (test code = 1012) 2 % BASOPHILS (test code = 1013) % PLATELET COUNT (test code = 1015) 267 K/UL CBC W/AUTO [id number] 00:00:00 Test Item Value Reference Range Interpretation Comments WBC (test code = 1001) 6.8 K/UL RBC (test code = 1002) 3.68 M/UL HEMOGLOBIN (test code = 1003) 11.7 G/DL HEMATOCRIT (test code = 1004) 35.0 % MCV (test code = 1005) 95.1 fL MCH (test code = 1006) 31.8 PG MCHC (test code = 1007) 33.4 G/DL RDW (test code = 1038) 13.7 % NEUTROPHILS (test code = 1008) 61 % LYMPHOCYTES (test code = 1010) 31 % MONOCYTES (test code = 1011) 6 % EOSINOPHILS (test code = 1012) 2 % BASOPHILS (test code = 1013) % PLATELET COUNT (test code = 1015) 267 K/UL CBC W/AUTO [id number] 00:00:00 Test Item Value Reference Range Interpretation Comments WBC (test code = 1001) 6.8 K/UL RBC (test code = 1002) 3.68 M/UL HEMOGLOBIN (test code = 1003) 11.7 G/DL HEMATOCRIT (test code = 1004) 35.0 % MCV (test code = 1005) 95.1 fL MCH (test code = 1006) 31.8 PG MCHC (test code = 1007) 33.4 G/DL RDW (test code = 1038) 13.7 % NEUTROPHILS (test code = 1008) 61 % LYMPHOCYTES (test code = 1010) 31 % MONOCYTES (test code = 1011) 6 % EOSINOPHILS (test code = 1012) 2 % BASOPHILS (test code = 1013) % PLATELET COUNT (test code = 1015) 267 K/UL [id number] 00:00:00 Test Item Value Reference Range Interpretation Comments TSH (test code = 2821) 3.6 UIU/ML [id number] 00:00:00 Test Item Value Reference Range Interpretation Comments TSH (test code = 2821) 3.6 UIU/ML [id number] 00:00:00 Test Item Value Reference Range Interpretation Comments TSH (test code = 2821) 3.6 UIU/ML LIPID [id number] 00:00:00 Test Item Value Reference Range Interpretation Comments CHOLESTEROL (test code = 2210) 195 MG/DL TRIGLYCERIDES (test code = 2232) 98 MG/DL HDL CHOLESTEROL (test code = 2220) 50 MG/DL CALCULATED LDL CHOL (test code = 125 MG/DL 2237) RISK RATIO LDL/HDL (test code = 2.51 RATIO 2238) LIPID [id number] 00:00:00 Test Item Value Reference Range Interpretation Comments CHOLESTEROL (test code = 2210) 195 MG/DL TRIGLYCERIDES (test code = 2232) 98 MG/DL HDL CHOLESTEROL (test code = 2220) 50 MG/DL CALCULATED LDL CHOL (test code = 125 MG/DL 2237) RISK RATIO LDL/HDL (test code = 2.51 RATIO 2238) COMPREHENSIVE METABOLIC [id number] 00:00:00 Test Item Value Reference Range Interpretation Comments GLUCOSE (test code = 2217) 86 MG/DL BUN (test code = 2208) 13 MG/DL CREATININE (test code = 2214) 1.1 MG/DL eGFR AMER. (test code 69 ML/MIN/1.73 = 44766) eGFR NON- AMER. (test 57 ML/MIN/1.73 code = 26748) CALCULATED BUN/CREAT (test 12 RATIO code = 2235) SODIUM (test code = 2231) 140 MEQ/L POTASSIUM (test code = 2228) 4.4 MEQ/L CHLORIDE (test code = 2215) 100 MEQ/L CARBON DIOXIDE (test code = 28 MEQ/L 2205) CALCIUM (test code = 2209) 9.5 MG/DL PROTEIN, TOTAL (test code = 7.4 G/DL 2228) ALBUMIN (test code = 2201) 4.4 G/DL CALCULATED GLOBULIN (test code 3.0 G/DL = 2240) CALCULATED A/G RATIO (test 1.5 RATIO code = 2234) BILIRUBIN, TOTAL (test code = 0.6 MG/DL 2206) ALKALINE PHOSPHATASE (test 66 U/L code = 2204) SGOT (AST) (test code = 2218) 13 U/L SGPT (ALT) (test code = 2219) 8 U/L COMPREHENSIVE METABOLIC [id number] 00:00:00 Test Item Value Reference Range Interpretation Comments GLUCOSE (test code = 2217) 86 MG/DL BUN (test code = 2208) 13 MG/DL CREATININE (test code = 2214) 1.1 MG/DL eGFR AMER. (test code 69 ML/MIN/1.73 = 19838) eGFR NON- AMER. (test 57 ML/MIN/1.73 code = 89494) CALCULATED BUN/CREAT (test 12 RATIO code = 2235) SODIUM (test code = 2231) 140 MEQ/L POTASSIUM (test code = 2228) 4.4 MEQ/L CHLORIDE (test code = 2215) 100 MEQ/L CARBON DIOXIDE (test code = 28 MEQ/L 2206) CALCIUM (test code = 2209) 9.5 MG/DL PROTEIN, TOTAL (test code = 7.4 G/DL 222) ALBUMIN (test code = 2201) 4.4 G/DL CALCULATED GLOBULIN (test code 3.0 G/DL = 2240) CALCULATED A/G RATIO (test 1.5 RATIO code = 2234) BILIRUBIN, TOTAL (test code = 0.6 MG/DL 220) ALKALINE PHOSPHATASE (test 66 U/L code = 2204) SGOT (AST) (test code = 2218) 13 U/L SGPT (ALT) (test code = 2219) 8 U/L CBC W/AUTO [id number] 00:00:00 Test Item Value Reference Range Interpretation Comments WBC (test code = 1001) 6.8 K/UL RBC (test code = 1002) 3.68 M/UL HEMOGLOBIN (test code = 1003) 11.7 G/DL HEMATOCRIT (test code = 1004) 35.0 % MCV (test code = 1005) 95.1 fL MCH (test code = 1006) 31.8 PG MCHC (test code = 1007) 33.4 G/DL RDW (test code = 1038) 13.7 % NEUTROPHILS (test code = 1008) 61 % LYMPHOCYTES (test code = 1010) 31 % MONOCYTES (test code = 1011) 6 % EOSINOPHILS (test code = 1012) 2 % BASOPHILS (test code = 1013) % PLATELET COUNT (test code = 1015) 267 K/UL CBC W/AUTO [id number] 00:00:00 Test Item Value Reference Range Interpretation Comments WBC (test code = 1001) 6.8 K/UL RBC (test code = 1002) 3.68 M/UL HEMOGLOBIN (test code = 1003) 11.7 G/DL HEMATOCRIT (test code = 1004) 35.0 % MCV (test code = 1005) 95.1 fL MCH (test code = 1006) 31.8 PG MCHC (test code = 1007) 33.4 G/DL RDW (test code = 1038) 13.7 % NEUTROPHILS (test code = 1008) 61 % LYMPHOCYTES (test code = 1010) 31 % MONOCYTES (test code = 1011) 6 % EOSINOPHILS (test code = 1012) 2 % BASOPHILS (test code = 1013) % PLATELET COUNT (test code = 1015) 267 K/UL
[2022-07-09 15:30] LABS: Absolute Lymphocytes (CBC) 2.8 K/uL (0.7-4.9); Hematocrit 41.5 % (36.0-45.0); Lymphocytes % 33.5 % (15.3-44.8); MCV 95.7 fL (80-100); MPV 8.3 fL (7.6-11.3); RBC Red Blood Cell Count 4.33 M/uL (3.86-4.86)
[2022-07-09 15:54] LABS: Bilirubin Total 0.3 mg/dL (0.2-1.0); Potassium 4.5 mmol/L (3.5-5.1); Protein, Total 8.7 g/dL (6.4-8.2)
[2022-07-09 15:57] LABS: Urine Bacteria <20 /HPF (<20); Urine Mucus Slight /HPF (None Seen); Urine RBC <5 /HPF (None Seen)
[2022-07-09] MEDS ORDERED: NA CHLORIDE 0.9% 1,000 ML ONE (16:20)
[2022-07-09] MEDS ORDERED: ONDANSETRON 4 MG/2 ML VIAL ONE (16:20)
[2022-07-09] MEDS ORDERED: FAMOTIDINE 20 MG/2 ML VIAL IV ONE (16:20)
--- NOTE | 2022-07-09 16:42 | RAD REPORT ---
EXAM DESCRIPTION: CT - Abdomen Pelvis W Contrast - 07/09/2022 4:28 pm CLINICAL HISTORY: Abdominal pain COMPARISON: 2020 TECHNIQUE: Computed axial tomography of the abdomen pelvis was obtained. 100 cc [id number] was admin istered intravenously. Oral contrast was not requested which limits evaluation of bowel and appendix All CT scans are performed using dose optimization technique as appropriate and may include automated exposure control or mA/KV adjustment according to patient size. FINDINGS: The liver, spleen, pancreas, adrenal and kidneys appear unremarkable. There is no evidence of diverticulitis. No adnexal mass. Uterus lies to the left of midline Small to moderate umbilical hernia IMPRESSION: No acute abnormality is displayed.
--- NOTE | 2022-07-09 17:56 | ER ---
Nurse's Notes [facility] Name: Lisbet Bo Age: 41 yrs Sex: Female : 1980 Arrival Date: 07/09/2022 Time: 12:28 Bed 12 Private MD: Diagnosis: Noninfective gastroenteritis and colitis, unspecified Presentation: 07/09 14:37 Chief complaint: Patient states: abd pain/ bloaitng with nausea that began 1 week ago. ss Coronavirus screen: Client denies travel out of the [place] in the last 14 days. Ebola Screen: Patient denies exposure to infectious person. Patient denies travel to an Ebola-affected area in the 21 days before illness onset. Initial Sepsis Screen: Does the patient meet any 2 criteria? No. Patient's initial sepsis screen is negative. Does the patient have a suspected source of infection? No. Patient's initial sepsis screen is negative. Risk Assessment: Do you want to hurt yourself or someone else? Patient reports no desire to harm self or others. Onset of symptoms was July 02, 2022. 14:37 Method Of Arrival: Ambulatory ss 14:37 Acuity: RONAL 3 ss Triage Assessment: 18:07 General: Appears in no apparent distress. Behavior is calm, cooperative, appropriate ap3 for age. Pain: Complains of pain in epigastric area. GI: Reports lower abdominal pain, upper abdominal pain, nausea. 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 - Social history:: Smoking status: Patient denies any tobacco usage or history of. Screenin:07 [facility] ED Fall Risk Assessment (Adult) History of falling in the last 3 months, ap3 including since admission. Abuse screen: Denies threats or abuse. Nutritional screening: No deficits noted. Tuberculosis screening: No symptoms or risk factors identified. Assessment: 18:07 GI: Bowel sounds present X 4 quads. Abd is soft and non tender. ap3 Vital Signs: 14:37 BP 122 / 69; Pulse 90; Resp 14; Temp 98.4(TE); Pulse Ox 100% on R/A; Weight 65.77 kg; ss Height 5 ft. 5 in. (165.10 cm); Pain 7/10; 14:37 Body Mass Index 24.13 (65.77 kg, 165.10 cm) ED Course: 12:28 Patient arrived in ED. mr 12:57 [facility] 12:57 Kelley Robb MD is Attending Physician. [facility] 14:38 Triage completed. 14:38 Arm band placed on right wrist. 16:30 CT Abd/Pelvis - IV Contrast Only In Process Unspecified. EDMS 17:03 Sunitha Branch, RN is Primary Nurse. ap3 18:07 No provider procedures requiring assistance completed. IV discontinued, intact, ap3 bleeding controlled, No redness/swelling at site. Pressure dressing applied. 18:08 Patient has correct armband on for positive identification. ap3 Administered Medications: 17:11 Drug: NS 0.9% 1000 ml Route: IV; Rate: 1 bolus; Site: right antecubital; ap3 18:08 Follow up: IV Status: Completed infusion; IV Intake: 1000ml ap3 17:11 Drug: Pepcid (famotidine) 20 mg Route: IVP; Site: right antecubital; ap3 18:08 Follow up: Response: No adverse reaction ap3 17:11 Drug: Zofran (Ondansetron) 4 mg Route: IVP; Site: right antecubital; ap3 18:08 Follow up: Response: No adverse reaction ap3 Medication: 18:08 VIS not applicable for this client. ap3 Intake: 18:08 IV: 1000ml; Total: 1000ml. ap3 Outcome: 17:55 Discharge ordered by . [email or web address] 18:08 Discharged to home ambulatory. ap3 18:08 Condition: good 18:08 Discharge instructions given to patient, Instructed on discharge instructions, follow up and referral plans. medication usage, Demonstrated understanding of instructions, follow-up care, medications, Prescriptions given X 3. 18:11 Patient left the ED. ap3 Signatures: Dispatcher [employer] [facility] Jennifer JeanCasandra RN RN Sunitha Branch, ROSS RN ap3 Maame Gomes FNP [place] [id number]
--- NOTE | 2022-07-09 17:57 | EDPHYS ---
Physician Documentation [facility] Name: Lisbet Bo Age: 41 yrs Sex: Female : 1980 Arrival Date: 07/09/2022 Time: 12:28 Bed 12 Private MD: KENIA Physician Kelley Robb HPI: 07/09 14:45 This 41 yrs old Female presents to ER via Ambulatory with complaints of jh7 Abdominal Pain, Vomiting. 14:45 The patient presents with abdominal pain in the epigastric area. Onset: The jh7 symptoms/episode began/occurred 1 week(s) ago. Associated signs and symptoms: Pertinent positives: constipation, diarrhea, Pertinent negatives: fever. The symptoms are described as burning. [employer]: 18:07 LMP N/A - Post-menopause ap3 Historical: - Allergies: 14:38 NKA; ss - PMHx: 14:38 Colitis; gastritis; Hypertension; Hypothyroidism; pre-diabetic; ss - Immunization history:: Client reports receiving the 2nd dose of the Covid vaccine. - Social history:: Smoking status: Patient denies any tobacco usage or history of. ROS: 14:45 Constitutional: Negative for fever, chills, and weight loss, Eyes: Negative for injury, jh7 pain, redness, and discharge, ENT: Negative for injury, pain, and discharge, Neck: Negative for injury, pain, and swelling, Cardiovascular: Negative for chest pain, palpitations, and edema, Respiratory: Negative for shortness of breath, cough, wheezing, and pleuritic chest pain, Back: Negative for injury and pain, MS/Extremity: Negative for injury and deformity, Skin: Negative for injury, rash, and discoloration, Neuro: Negative for headache, weakness, numbness, tingling, and seizure. 14:45 Abdomen/GI: Positive for abdominal pain, nausea, vomiting, and diarrhea, constipation, abdominal cramps. 14:45 All other systems are negative. Exam: 14:45 Constitutional: This is a well developed, well nourished patient who is awake, alert, jh7 and in no acute distress. Head/Face: Normocephalic, atraumatic. Eyes: Pupils equal round and reactive to light, extra-ocular motions intact. Lids and lashes normal. Conjunctiva and sclera are non-icteric and not injected. Cornea within normal limits. Periorbital areas with no swelling, redness, or edema. Neck: Trachea midline, no thyromegaly or masses palpated, and no cervical lymphadenopathy. Supple, full range of motion without nuchal rigidity, or vertebral point tenderness. No Meningismus. Cardiovascular: Regular rate and rhythm with a normal S1 and S2. No gallops, murmurs, or rubs. Normal PMI, no JVD. No pulse deficits. Respiratory: Lungs have equal breath sounds bilaterally, clear to auscultation and percussion. No rales, rhonchi or wheezes noted. No increased work of breathing, no retractions or nasal flaring. Back: No spinal tenderness. No costovertebral tenderness. Full range of motion. Skin: Warm, dry with normal turgor. Normal color with no rashes, no lesions, and no evidence of cellulitis. MS/ Extremity: Pulses equal, no cyanosis. Neurovascular intact. Full, normal range of motion. Neuro: Awake and alert, GCS 15, oriented to person, place, time, and situation. Motor strength 5/5 in all extremities. Sensory grossly intact. Normal gait. 14:45 Abdomen/GI: Inspection: abdomen appears normal, Bowel sounds: normal, in all quadrants, Palpation: soft, mild abdominal tenderness, in the epigastric area. Vital Signs: 14:37 BP 122 / 69; Pulse 90; Resp 14; Temp 98.4(TE); Pulse Ox 100% on R/A; Weight 65.77 kg; ss Height 5 ft. 5 in. (165.10 cm); Pain 7/10; 14:37 Body Mass Index 24.13 (65.77 kg, 165.10 cm) ss MDM: 12:57 Patient medically screened. [facility] 18:02 Differential diagnosis: cholecystitis, gastroesophageal reflux disease, Peptic Ulcer jh7 Disease, Gastroenteritis. Data reviewed: vital signs, nurses notes, lab test result(s), radiologic studies, CT scan. Data interpreted: Pulse oximetry: is 100 %. Interpretation: normal. Counseling: I had a detailed discussion with the patient and/or guardian regarding: the historical points, exam findings, and any diagnostic results supporting the discharge/admit diagnosis, to return to the emergency department if symptoms worsen or persist or if there are any questions or concerns that arise at home. Response to treatment: the patient's symptoms have markedly improved after treatment. 07/09 13:02 Order name: CBC with Diff; Complete Time: 15:35 [facility] 07/09 13:02 Order name: CMP; Complete Time: 15:56 [facility] 07/09 13:02 Order name: Lipase; Complete Time: 15:56 [facility] 07/09 13:02 Order name: Urine Microscopic Only; Complete Time: 16:20 [facility] 07/09 13:02 Order name: CT Abd/Pelvis - IV Contrast Only; Complete Time: 16:44 [facility] 07/09 16:09 Order name: Test Urine - POC sp 07/09 13:03 Order name: IV Saline Lock; Complete Time: 16:10 [facility] 07/09 13:03 Order name: Labs collected and sent; Complete Time: 16:11 [facility] 07/09 13:03 Order name: Urine Dipstick-Ancillary (obtain specimen); Complete Time: 18:08 [facility] 07/09 13:03 Order name: Urine Test (obtain specimen); Complete Time: 18:08 [facility] Administered Medications: 17:11 Drug: NS 0.9% 1000 ml Route: IV; Rate: 1 bolus; Site: right antecubital; ap3 18:08 Follow up: IV Status: Completed infusion; IV Intake: 1000ml ap3 17:11 Drug: Pepcid (famotidine) 20 mg Route: IVP; Site: right antecubital; ap3 18:08 Follow up: Response: No adverse reaction ap3 17:11 Drug: Zofran (Ondansetron) 4 mg Route: IVP; Site: right antecubital; ap3 18:08 Follow up: Response: No adverse reaction ap3 Disposition Summary: 07/09/22 17:55 Discharge Ordered Location: Home [facility] Problem: new [facility] Symptoms: have improved [facility] Condition: Stable [facility] Diagnosis - Noninfective gastroenteritis and colitis, unspecified [facility] Followup: [facility] - With: Private Physician - When: 2 - 3 days - Reason: Recheck today's complaints Discharge Instructions: - Discharge Summary Sheet [facility] - Food Choices to Help Relieve Diarrhea, Adult [facility] - Viral Gastroenteritis, Adult [facility] Forms: - Medication Reconciliation Form [facility] - Thank You Letter [facility] Prescriptions: - ondansetron 4 mg Oral tablet,disintegrating - place 1 tablet by TRANSLINGUAL route 4 times per day As needed; 20 tablet; jh7 Refills: 0, Product Selection Permitted - Levsin 0.125 mg Oral Tablet - take 1 tablet by ORAL route every 8 hours; 30 tablet; Refills: 0, Product jh7 Selection Permitted - Pepcid 20 mg Oral Tablet - take 1 tablet by ORAL route once daily for 10 days; 10 tablet; Refills: 0, jh7 Product Selection Permitted Addendum: 07/12/2022 22:42 STAFF ATTESTATION STATEMENT: I was immediately available onsite in the emergency s d2 department for consultation in the care of this patient. I did not see or examine this patient. Kelley Robb MD. Signatures: Dispatcher [employer] EDCasandra Charles RN RN ss Sunitha Branch RN RN ap3 Maame Gomes, DEPARTMENT HEAD DEPARTMENT HEAD jh7 Kelley Robb MD MD sd2
[2022-07-09 18:51] VITALS: BP 122/69; TEMP 98.4; O2SAT 100
== END 2022-07-09 18:11 | disposition home or self-care (01) ==
LOC: ER 12:25
DX: K52.9 Noninfective gastroenteritis and colitis, unspecified (principal); I10 Essential (primary) hypertension
CPT/HCPCS: 36415; 74177; 80053; 81015; 81025; 83690; 85025; 96361; 96374; 96375; 99283; J2405; J7030; Q9967

== ENCOUNTER 2023-06-08 13:19 | Emergency (ER) | payer SELFPAY ==
--- OUTSIDE RECORDS SUMMARY | 2023-06-08 13:27 | XMS REPORT | Continuity of Care Document ---
:1980 Author Organization [facility] t Address [address] [place] [address] Care Team Providers Name Role Phone OSIEL VIVAS Primary Care Physician Unavailable Cheli PETERSON Attending Clinician Unavailable Cheli Roth Attending Clinician Doctor Unassigned, [place] Attending Clinician Unavailable GLENN BAKER Attending Clinician Unavailable Glenn Baker MD Attending Clinician Referred, Self Attending Clinician Unavailable KACIE MANZANOHCande Attending Clinician Unavailable Kacie Manzano MDHCande Attending Clinician Chata Bhakta Attending Clinician [phone] CHATA JOHNSON Attending Clinician Unavailable Glenn Cross Attending Clinician GLENN BAKER Attending Clinician Unavailable Osiel Maradiaga Attending Clinician OSIEL VIVAS Attending Clinician Unavailable Guera Baker DO Attending Clinician Visit, [facility] Nurse Attending Clinician Unavailable [facility] Resident Attending Clinician Unavailable Naveed Daley MD Attending Clinician GLENN CHAUDHRY Admitting Clinician Unavailable Referred, Self Admitting Clinician Unavailable KACIE MANZANO Admitting Clinician Unavailable Physician, No Primary or Family Admitting Clinician Unavaila ble Payers Payer Name Policy Type Policy Number Effective Date Expiration Date Mary FAJARDO [id number] 2020 NON-CONTRACT 00:00:00 GENERIC MEDICAID [place] PENDING 2023 PENDING 00:00:00 Problems Condition Condition Condition Status Onset Resolution Last Treating Co mments Source Name Details Category Date Date Treatment Clinician Date Breast Breast Disease Active Overview: Univer s cyst cyst 8 Formattin ity of 00:00: [place] of [place] note Medical might be Branch different from the original. mammo from [facility] 01-17-22Bi lateral cystsTher e is no sonograph ic evidence of malignanc yRoutine mammo in 1 year History of History of Disease Active U nivers breast breast 3-02 ity of surgery surgery 00:00: [place] [facility] History of History of Disease Active U nivers breast breast 3-02 ity of surgery surgery 00:00: Medical Branch BMI BMI Disease Active 2020-0 Univers 25.0-25.9, 25.0-25.9, 4-30 it y of adult adult 00:00: [facility] Branch Hyperthyro Hyperthyro Disease Active 2020-0 U nivers idism idism 4-30 ity of 00:00: [facility] BMI BMI Disease Active 2020-0 Univers 25.0-25.9, 25.0-25.9, 4-30 it y of adult adult 00:00: [facility] Encounter Encounter Disease Active Overview: Univers for IUD for IUD 4-10 Formattin ity o f removal removal 00:00: g of this note Medical might be Branch different from the original. paragard 05/2020 Essential Essential Disease Active Overview: Univers hypertensi hypertensi 6-28 Formattin ity of on on 00:00: g of this note Medical might be Branch different from the original. ICD10 Diagnosis Term Fibre Composite Technician Utility Allergies, Adverse Reactions, Alerts Allergy Allergy Status Severity Reaction(s) Onset Inactive Treating Comm ents Source Name Type Date Date Clinician NO KNOWN Drug Active Univers ALLERGIE Class ity of S [facility] Social History Social Habit Start Date Stop Date Quantity Comments Source Sexual orientation [facility] intake 2023-05-14 2023-05-14 0 /d University of 00:00:00 00:00:00 [facility] Exposure to 2021-12-18 2021-12-28 Not sure [facility] SARS-CoV-2 (event) 00:00:00 11:14:00 [facility] History of Social 2021-04-10 2021-04-10 Univers ity of function 00:00:00 00:00:00 [facility] Tobacco use and 2012-11-27 2012-11-27 Smokeless Universit y of exposure 00:00:00 00:00:00 tobacco non-user [facility] Sex Assigned At [birth year] Universit y of 00:00:00 00:00:00 [facility] Smoking Status Start Date Stop Date Source Never smoked tobacco [facility] Medications Ordered Filled Start Stop Current Ordering Indication Dosage Frequency Signature Comments Components Source Medication Medication Date Date Medication? Clinician (SIG) Name Name TAKE 10 ML 2021- No EVERY 4-6 0-06 HOURS 00:00: NEEDED 00 levothyroxi 2021-0 No 1mcg ne 75 mcg 5-01 tablet 00:00: 00 levothyroxi 2021-0 No 1mcg ne 75 mcg 5-01 tablet 00:00: 00 lisinopril 2021-0 No 1mg 10 mg 4-28 tablet 00:00: 00 levothyroxi 2021-0 No 1mcg ne 75 mcg 4-28 tablet 00:00: 00 Dose 2021-0 No Unknown 4-28 00:00: 00 Dose 2021-0 No Unknown 4-28 00:00: 00 Dose 2-0 No Unknown 4-28 00:00: 00 Dose 2-0 No Unknown 4-28 00:00: 00 Dose 2-0 No Unknown 4-28 00:00: 00 Dose 2-0 No Unknown 4-28 00:00: 00 Dose 2-0 No Unknown 4-28 00:00: 00 Dose 2-0 No Unknown 4-28 00:00: 00 Dose 2-0 No Unknown 4-28 00:00: 00 Dose 2-0 No Unknown 4-28 00:00: 00 Dose 2022-0 No Unknown 4-28 00:00: 00 Dose 2022-0 No Unknown 4-28 00:00: 00 Dose 2022-0 No Unknown 4-28 00:00: 00 Dose 2022-0 No Unknown 4- 00:00: 00 Dose 2022-0 No Unknown 4- 00:00: 00 Dose 2022-0 No Unknown 4- 00:00: 00 Dose 2022-0 No Unknown 4- 00:00: 00 Dose 2022-0 No Unknown 4- 00:00: 00 Dose 2022-0 No Unknown 4- 00:00: 00 Dose 2022-0 No Unknown 4- 00:00: 00 Dose 2022-0 No Unknown 4- 00:00: 00 Dose 2022-0 No Unknown 4- 00:00: 00 lisinopril 2022-0 No 1mg 10 mg 4-28 tablet 00:00: 00 levothyroxi 2022-0 No 1mcg ne 75 mcg 4-28 tablet 00:00: 00 Dose 2022-0 No Unknown 4- 00:00: 00 Dose 2022-0 No Unknown 4- 00:00: 00 Dose 2022-0 No Unknown 4- 00:00: 00 Dose 2022-0 No Unknown 4- 00:00: 00 Dose 2022-0 No Unknown 4- 00:00: 00 Dose 2022-0 No Unknown 4- 00:00: 00 Dose 2022-0 No Unknown 4- 00:00: 00 Dose 2022-0 No Unknown 4- 00:00: 00 Dose 2022-0 No Unknown 4- 00:00: 00 Dose 2022-0 No Unknown 4- 00:00: 00 Dose 2022-0 No Unknown 4- 00:00: 00 Dose 2022-0 No Unknown 4-28 00:00: 00 Dose 2022-0 No Unknown 4-28 00:00: 00 Dose 2022-0 No Unknown 4- 00:00: 00 Dose 2022-0 No Unknown 4- 00:00: 00 Dose 2022-0 No Unknown 4-28 00:00: 00 Dose 2022-0 No Unknown 4-28 00:00: 00 Dose 2022-0 No Unknown 4- 00:00: 00 Dose 2021-0 No Unknown 4- 00:00: 00 Dose 2021-0 No Unknown 4 00:00: 00 Dose 2021-0 No Unknown 4 00:00: 00 Dose 2021-0 No Unknown 4 00:00: 00 Bromfed DM 2021-0 No 10mg/5 2 mg-30 1-07 mL mg-10 mg/5 00:00: mL oral 00 syrup Bromfed DM 2021-0 No 10mg/5 2 mg-30 1-07 mL mg-10 mg/5 00:00: mL oral 00 syrup lisinopril 2020-07 Yes 10mg Take 10 mg U nivers 10 mg 2-06 by mouth ity of tablet 08:55: daily. [address] lisinopril 2020-07 Yes 10mg Take 10 mg U nivers 10 mg 2-06 by mouth ity of tablet 08:55: daily. [address] lisinopril 2020-07 Yes 10mg Take 10 mg U nivers 10 mg 2-06 by mouth ity of tablet 08:55: daily. [address] lisinopril 2020-07 Yes 10mg Take 10 mg U nivers 10 mg 2-06 by mouth ity of tablet 08:55: daily. [address] Dose 2020-07 No Unknown 0-31 00:00: [...] mouth ity o f tablet 00:00: daily. [address] ondansetron 2020-07 Yes TAKE 1 Univ ers 4 mg tablet 0-01 TABLET BY ity of 00:00: MOUTH [place] [address] EVERY 12 Medical HOURS Branch NEEDED pantoprazol 2020-07 Yes 40mg Take 40 mg Univers e 40 mg EC 0-01 by mouth ity o f tablet 00:00: daily. [place] [facility] ondansetron 2020-07 Yes TAKE 1 Univ ers 4 mg tablet 0-01 TABLET BY ity of 00:00: MOUTH EVERY 12 Medical HOURS Branch NEEDED pantoprazol 2020-07 Yes 40mg Take 40 mg Univers e 40 mg EC 0-01 by mouth ity o f tablet 00:00: daily. [place] [facility] ondansetron 2020-07 Yes TAKE 1 Univ ers 4 mg tablet 0-01 TABLET BY ity of 00:00: MOUTH [place] EVERY 12 Medical HOURS Branch NEEDED pantoprazol 2020-07 Yes 40mg Take 40 mg Univers e 40 mg EC 0-01 by mouth ity o f tablet 00:00: daily. [place] [facility] ondansetron 2020-07 Yes TAKE 1 Univ ers 4 mg tablet 0-01 TABLET BY ity of 00:00: MOUTH EVERY 12 Medical HOURS Branch NEEDED Dose 2020-07 No Unknown 0-01 00:00: 00 Dose 2020-1 No Unknown 0-01 00:00: 00 levothyroxi 1-0 No 1mcg ne 75 mcg 7-15 tablet 00:00: 00 levothyroxi 1-0 No 1mcg ne 75 mcg 7-15 tablet 00:00: 00 Dose 1-0 No Unknown 4-16 00:00: 00 Dose 1-0 No Unknown 4-16 00:00: 00 levothyroxi 1-0 No 1mcg ne 75 mcg 4-10 tablet 00:00: 00 Vitamin D3 1-0 No 1(1,000 25 mcg 4-10 unit) (1,000 00:00: unit) 00 capsule levothyroxi 1-0 No 1mcg ne 75 mcg 4-10 tablet 00:00: 00 Vitamin D3 1-0 No 1(1,000 25 mcg 4-10 unit) (1,000 00:00: unit) 00 capsule lisinopril 1-0 No 1mg 10 mg 4-08 tablet 00:00: 00 famotidine 1-0 No 1mg 20 mg 4-08 tablet 00:00: 00 levothyroxi 1-0 No 1mcg ne 50 mcg 4-08 tablet [...] 10 mg 9-14 tablet 00:00: 00 lisinopril 2016-1 No 1mg 10 mg 0-26 tablet 00:00: 00 lisinopril 2016-1 No 1mg 10 mg 0-26 tablet 00:00: 00 lisinopril 2015-1 No 1mg 10 0-25 mg-hydrochl 00:00: orothiazide 00 12.5 mg tablet lisinopril 2015-1 No 1mg 10 0-25 mg-hydrochl 00:00: orothiazide 00 12.5 mg tablet amoxicillin 2016-0 No 2mg 500 mg 8- capsule 00:00: 00 omeprazole 2016-0 No 1mg 20 mg 8- capsule,del 00:00: ayed 00 release clarithromy 2016-0 No 1mg dione 500 mg 8- tablet 00:00: 00 amoxicillin 2015-0 No 2mg 500 mg 8- capsule 00:00: 00 omeprazole 2015-0 No 1mg 20 mg 8- capsule,del 00:00: ayed 00 release clarithromy 2015-0 No 1mg dione 500 mg 8-01 tablet 00:00: 00 lisinopril 2015-0 No 1mg 10 2-03 mg-hydrochl 00:00: orothiazide 00 12.5 mg tablet Vistaril 50 2015-0 No 1mg mg capsule 2 00:00: 00 lisinopril 2015-0 No 1mg 10 2-03 mg-hydrochl 00:00: orothiazide 00 12.5 mg tablet Vistaril 50 2015-0 No 1mg mg capsule 2 00:00: 00 clindamycin 2014-1 No 1mg 300 mg 0-27 capsule 00:00: 00 clindamycin 2014-1 No 1mg 300 mg 0-27 capsule 00:00: 00 lisinopril 2014-1 No 1mg 10 0-09 mg-hydrochl 00:00: orothiazide 00 12.5 mg tablet lisinopril 2014-1 No 1mg 10 0-09 mg-hydrochl 00:00: orothiazide 00 12.5 mg tablet lisinopril 2014-0 No 1mg 10 9-17 mg-hydrochl 00:00: orothiazide 00 12.5 mg tablet lisinopril 2014-0 No 1mg 10 9-17 mg-hydrochl 00:00: orothiazide 00 12.5 mg tablet lisinopril 2014-0 No 1mg 10 1-15 mg-hydrochl 00:00: orothiazide 00 12.5 mg tablet lisinopril 2014-0 No 1mg 10 1-15 mg-hydrochl 00:00: orothiazide 00 12.5 mg tablet Immunizations Ordered Filled Date Status Comments Source Immunization Name Immunization Name Influenza Virus 2020-04-21 Completed Universit y of Vaccine Quad .5 mL 00:00:00 [facility] 6+ MO Branch Influenza Virus 2020-04-21 Completed Universit y of Vaccine Quad .5 mL 00:00:00 [facility] 6+ MO Branch Influenza Virus 2020-04-21 Completed Universit y of Vaccine Quad .5 mL 00:00:00 [facility] 6+ MO Branch Influenza Virus 2019-05-27 Completed Universit y of Vaccine Quad .5 mL 00:00:00 [facility] 6+ MO Branch Influenza Virus 2019-05-27 Completed Universit y of Vaccine Quad .5 mL 00:00:00 [facility] 6+ MO [place] Influenza Virus 2019-05-27 Completed Universit y of Vaccine Quad .5 mL 00:00:00 [place] [address]+ [place] Branch TDAP 2013-06-26 Completed University of 00:00:00 [facility] TDAP 2013-06-26 Completed University of 00:00:00 [facility] TDAP 2013-06-26 Completed University of 00:00:00 [facility] Influenza Virus 2013-03-26 Completed Universit y of Vaccine 00:00:00 [facility] Influenza Virus 2013-03-26 Completed Universit y of Vaccine 00:00:00 [facility] Influenza Virus 2013-03-26 Completed Universit y of Vaccine 00:00:00 [facility] Rubella 2007-03-21 Completed University of 00:00:00 [facility] Rubella 2007-03-21 Completed University of 00:00:00 [facility] Rubella 2007-03-21 Completed University of 00:00:00 [facility] Td 1998-07-08 Completed University of 00:00:00 [facility] Td 1998-07-08 Completed University of 00:00:00 [facility] Td 1998-07-08 Completed University of 00:00:00 [facility] Rubella Unknown Completed [facility] TD, NOS Unknown Completed [facility] Influenza Virus Unknown Completed Universit y of Vaccine [facility] TDAP Unknown Completed [facility] Influenza Virus Unknown Completed Universit y of Vaccine Quad .5 mL [facility] 6+ MO Branch (FLUZONE/FLULAVAL/F LUARIX) Influenza Virus Unknown Completed Universit y of Vaccine Quad .5 mL [facility] IM 6+ MO Branch (FLUZONE/FLULAVAL/F LUARIX) Vital Signs Vital Name Observation Time Observation Value Comments Source Body temperature 2023-05-15 02:56:00 37.28 Dawn [facility] Respiratory rate 2023-05-15 02:56:00 20 /min [facility] Body height 2023-05-15 02:56:00 165.1 cm [facility] [place] [facility] Body weight 2023-05-15 02:56:00 66.679 kg Universi [facility] BMI 2023-05-15 02:56:00 24.46 kg/m2 [facility] Oxygen saturation in 2023-05-15 02:56:00 100 /min [facility] Arterial blood by [facility] Pulse oximetry Branch Systolic blood 2023-05-15 02:56:00 127 mm[Hg] Univer sity of pressure [facility] Diastolic blood 2023-05-15 02:56:00 78 mm[Hg] [facility] Heart rate 2023-05-15 02:56:00 72 /min [facility] BP Systolic 2022-04-12 13:37:00 119 mm[Hg] BP [...] Procedure Date / Time Performed Performing Clinician [facility] e ASSIGNMENT OF BENEFITS 2023-05-15 04:13:22 Doctor Unassigned, No [facility] Name Medical Branch NOTICE OF PRIVACY 2023-05-15 02:38:53 Doctor Unassigned, No Univ [facility] PRACTICES Name Medical [place] CONSENT/REFUSAL FOR 2023-05-15 02:38:25 Doctor Unassigned, [facility] AND Name Medical [place] TREATMENT EXTERNAL PROVIDER 2022-02-05 05:01:00 Doctor Unassigned, No [facility] Name Medical Branch EXTERNAL PROVIDER 2022-01-19 05:01:00 Doctor Unassigned, No [facility] Name Medical Branch Ekg 2018-07-14 00:00:00 01052 Ecg Routine Ecg 2015-03-24 00:00:00 W/least 12 Lds W/i r Plan of Care Planned Activity Planned Date Details Comments Source Goal Plan of Care Note [code = 06092-7] Goal Plan of Care Note [code = 93780-2] Goal Plan of Care Note [code = 50616-9] Goal Plan of Care Note [code = 61286-0] Goal Plan of Care Note [code = 24372-7] Goal Plan of Care Note [code = 07547-9] Goal Plan of Care Note [code = 43113-1] Goal Plan of Care Note [code = 70108-9] Goal Plan of Care Note [code = 16817-3] Goal Plan of Care Note [code = 43541-7] Goal Plan of Care Note [code = 46670-8] Goal Plan of Care Note [code = 15570-7] Goal Plan of Care Note [code = 94973-8] Goal Plan of Care Note [code = 63760-3] Goal Plan of Care Note [code = 30917-6] Goal Plan of Care Note [code = 41847-9] Goal Plan of Care Note [code = 28568-5] Goal Plan of Care Note [code = 62556-8] Goal Plan of Care Note [code = 67949-3] Goal Plan of Care Note [code = 70169-6] Goal Plan of Care Note [code = 36669-8] Goal Plan of Care Note [code = 08110-2] Goal Plan of Care Note [code = 55007-1] Goal Plan of Care Note [code = 51493-2] Goal Plan of Care Note [code = 01704-1] Goal Plan of Care Note [code = 54834-0] Goal Plan of Care Note [code = 84042-0] Goal Plan of Care Note [code = 98865-4] Goal Plan of Care Note [code = 47260-8] Goal Plan of Care Note [code = 27570-9] Goal Plan of Care Note [code = 53163-6] Goal Plan of Care Note [code = 28856-9] Goal Plan of Care Note [code = 19361-0] Goal Plan of Care Note [code = 35633-4] Goal Plan of Care Note [code = 82374-6] Goal Plan of Care Note [code = 79868-8] Goal Plan of Care Note [code = 71695-1] Goal Plan of Care Note [code = 41834-7] Goal Plan of Care Note [code = 81942-0] Goal Plan of Care Note [code = 48055-0] Goal Plan of Care Note [code = 04907-2] Goal Plan of Care Note [code = 88209-7] Goal Plan of Care Note [code = 60590-4] Goal Plan of Care Note [code = 41948-3] Goal Plan of Care Note [code = 67697-3] Goal Plan of Care Note [code = 48130-0] Goal Plan of Care Note [code = 50165-2] Goal Plan of Care Note [code = 82731-2] Goal Plan of Care Note [code = 73572-7] Goal Plan of Care Note [code = 51921-4] Goal Plan of Care Note [code = 03111-0] Goal Plan of Care Note [code = 18976-7] Goal Plan of Care Note [code = 17988-2] Goal Plan of Care Note [code = 57515-0] Goal Plan of Care Note [code = 19501-3] Goal Plan of Care Note [code = 87023-9] Goal Plan of Care Note [code = 96144-3] Goal Plan of Care Note [code = 30005-9] Encounters Start End Encounter Admission Attending Care Care Encounter Source Date/Time Date/Time Type Type Clinicians Facility Department ID 2021-05-[address] [facility] [id number] Univers 23:42:11 ity [facility] 2023-05-14 2023-05-14 Emergency X Cheli PETERSON [facility] ERT [id number] Univers 21:00:00 23[facility]17[facility] 2023-05-14 2023-05-14 Emergency Cheli Peterson [facility] [id number] Univers 21:00:00 23:17:00 Cassie VENEGAS [id number] [facility] 4.2.7.2.686 [facility] [id number] [address] 2023-05-02 2023-05-02 Outpatient SFA SFA [id number] Juan 11:32:33 11:32:33 1026 F [place] 2023-04-29 2023-04-29 Outpatient SFA SFA [id number] Juan 17:06:53 17:06:53 1023 F [place] 2023-03-11 2023-03-11 Outpatient SFA SFA [id number] Juan 14:00:00 14:00:00 0904 F [place] 2022-11-26 2022-11-26 Outpatient SFA SFA [id number] Juan 09:14:01 09:14:01 0522 F [place] 2022-10-04 2022-10-04 Outpatient SFA SFA [id number] Juan 13:25:10 13:25:10 0330 F [place] 2022-07-13 2022-07-13 Outpatient SFA SFA [id number] Juan 10:45:38 10:45:38 0106 F [place] 2022-07-12 2022-07-12 Outpatient SFA SFA [id number] Juan 14:10:28 14:10:28 0105 F [place] 2022-07-11 2022-07-11 Outpatient SFA [facility] [id number] Juan 13:37:25 13:37:25 0104 F [place] 2022-04-12 2022-04-12 Outpatient SFA [facility] [id number] Juan 13:31:38 13:31:38 1006 F [place] 2022-04-12 2022-04-12 Outpatient [id number] 00:00:00 00:00:00 Visit [id number] 2022-03-20 2022-03-20 Outpatient [id number] 00:00:00 00:00:00 Visit [id number] 2022-02-05 2022-02-05 Orders Doctor NIKITA [id number] [id number] Univers 00:00:00 00:00:00 Only Unassigned, DENNISE [id number] ity of [place] [facility] 4.2.7.2.686 Leonid as [id number] [place] [address] Branch 2022-01-19 2022-01-19 Orders Doctor NIKITA 1.2.840.114 [id number] Univers 00:00:00 00:00:00 Only Unassigned, DENNISE [id number] ity of [place] [facility] [id number] Leonid as [phone] [place] [address] Branch 2022-01-17 2022-01-17 Outpatient [facility] [id number] [facility] 08:00:00 08:00:00 GLENN Steen [facility] 2022-01-15 2022-01-15 MITCHELL Prater 1.2.840.114 [id number] Univers 00:00:00 00:00:00 Glenn FAMILY SERVICE COUNSELOR [id number] it y of [facility] 4.2.7.2.686 Leonid as MATERNAL [id number] [facility] ical & CHILD [address] [place] [address] 2022-01-12 2022-01-12 Outpatient EL Referred, HCAPM JO ANN [id number] [facility] 12:00:00 12:00:00 Self 53 [facility] 2021-12-29 2021-12-[address] [facility] [id number] Univers 09:00:00 09:25:36 [facility] 2021-12-29 2021-12-29 [facility] 1.2.840.114 [id number] Univers 09:00:00 09:25:36 Visit [id number] 4.2.7.2.686 Leonida s BALJINDER [phone] Hi dical [address] 2021-12-29 2021-12-[address] [facility] [id number] Univers 09:00:00 09:25:36 SENDIL [facility] 2021-12-29 2021-12-[address] [facility] [id number] Univers 09:00:00 [facility] 2021-12-28 2021-12-28 [facility] [id number] Univers 16:00:00 16:33:08 Visit Chata Plasencia FAMILY SERVICE COUNSELOR [id number] [facility] [id number] Leonid as MATERNAL [phone] [facility] ical & CHILD [address] [place] [address] 2021-12-28 2021-12-28 Outpatient R MANDA, [facility] [id number] Univers 16:00:00 16:33:08 CHATA barr f [facility] 2021-12-28 2021-12-28 Outpatient R [facility]AAULTMAN [facility] [id number] Univers 16:00:00 16:00:00 CHATA barr f [facility] 2021-12-28 2021-12-28 Orders Doctor SHELTON 1.2.840.114 [id number] Univers 00:00:00 00:00:00 Only Unassigned, DENNISE [id number] ity of [place] [facility] 4.2.7.2.686 Leonid as [id number] [address] 2021-06-12 2021-06-[address] [facility] [id number] Univers 09:00:00 09:38:41 SENDIL ity of [facility] 2021-06-12 2021-06-12 [facility] 1.2.840.114 [id number] Univers 08:36:22 09:38:41 Visit Sendthierno VENEGAS [id number] [place]y of [place] PROF[place] [id number] [address] 2021-06-12 2021-06-12 Letter [facility] 1.2.840.114 [id number] Univers 00:00:00 00:00:00 (Out) Kacie VENEGAS [id number] [place] [id number] Hi dic[address] 2021-06-12 2021-06-12 [facility] 1.2.840.114 [id number] Univers 00:00:00 00:00:00 (Out) Kacie VENEGAS [id number] [place] of [place]2.[place] [phone] [address] 2021-05-19 2021-05-19 Telephone [facility] [id number] Univers 00:00:00 00:00:00 Kacie VENEGAS [id number] [place]2.[place] [phone] Hi dic[address] 2021-05-10 2021-05-10 Outpatient R [facility] [id number] Univers 14:26:29 23:59:00 SENDIL ity [facility] 2021-05-10 2021-05-10 Hospital [facility] 1.2.840.114 [id number] Univers 14:26:29 23:59:00 Encounter Kacie RoblesSterlingCande VENEGAS [id number] [place] of [id number] [phone] [facility] 8[facility] 2021-04-10 2021-04-10 Office [facility] 1.2.840.114 [id number] Univers 13:02:51 13:33:19 Visit Kacie Venegas [id number] ity of [place].2.[place] Profess[place] [id number] [facility] 059 [facility] 2021-04-10 2021-04-10 Outpatient R MANZANOAULTMAN [facility] [id number] Univers 13:00:00 13:00:00 SENDIL ity [facility] 2021-04-10 2021-04-10 Letter [facility] 1.2.840.114 [id number] Univers 00:00:00 00:00:00 (Out) Kacie Venegas 350.1.13.10 ity of [place] 4[place]2.7.2.686 [place] Profess[place] [phone] [facility] 059 [facility] 2021-04-10 2021-04-10 Orders Doctor NIKITA 1.2.840.114 [id number] Univers 00:00:00 00:00:00 Only Unassigned, DENNISE 350.1.13.10 ity of [place] [facility] 4.2.7.2.686 Leonid as [phone] [address] 2021-03-01 2021-03-01 Telephone [facility] 1.2.840.114 [id number] Univers 00:00:00 00:00:00 Glenn Ralph FAMILY SERVICE COUNSELOR [id number] it y of [facility] 4.2.7.2.686 Leonid as MATERNAL [phone] Med ical & CHILD 107 [facility] 2021-02-28 2021-02-28 Office [facility] 1.2.026.781 [id number] [facility] 08:24:49 09:16:09 Visit Glenn Ralph FAMILY SERVICE COUNSELOR 350.1.13.10 it y of [place]ION[place] 4.2.7.2.686 Leonid as MATERNAL [phone] Med ical & CHILD [address] [place] [address] 2021-02-28 2021-02-[address] [facility] [id number] [facility] 08:15:00 08:15:00 GLENN itmark of [facility] 2021-02-28 2021-02-28 Letter [facility] [id number] Univers 00:00:00 00:00:00 (Out) Glenn Ralph FAMILY SERVICE COUNSELOR [id number] it y of REGIONAL 4.2.7.2.686 Leonid as MATERNAL [phone] Med ical & CHILD [address] [place] [address] 2021-02-28 2021-02-28 Letter [facility] 1.2.451.245 [id number] Univers 00:00:00 00:00:00 (Out) Glenn Ralph FAMILY SERVICE COUNSELOR [id number] it y of [place]ION[place] 4.2.7.2.686 Leonid as MATERNAL [phone] Med ical & CHILD [address] [place] [address] 2021-02-27 2021-02-27 [facility]phone [facility] 1.2.840.114 [id number] Univers 00:00:00 00:00:00 Glenn Rlaph FAMILY SERVICE COUNSELOR 350.1.13.10 it y of [place]ION[place] 4.2.7.2.686 Leonid as MATERNAL [phone] Med ical & CHILD [address] [place] [address] 2021-02-22 2021-02-22 Office Glenn Baker [facility] 1.2.840. 114 [id number] Univers 08:31:54 09:08:46 Visit Osiel Vivas FAMILY SERVICE COUNSELOR [id number] ity of [facility] 4.2.7.2.686 Leonid as MATERNAL [phone] Med ical & CHILD [address] [place] [address] 2021-02-22 2021-02-[address] [facility] [id number] Univers 08:15:00 08:15:00 KAYLAHNDA ity o f [facility] 2021-02-22 2021-02-22 Orders Doctor NIKITA 1.2.840.114 [id number] Univers 00:00:00 00:00:00 Only Unassigned, DENNISE 350.1.13.10 ity of [place] [facility] 4.2.7.2.686 Leonid as [phone] [facility] 009 [place] 2020-11-01 2020-11-01 Telephone [facility] 1.2.840.114 [id number] Univers 00:00:00 00:00:00 Glenn Ralph FAMILY SERVICE COUNSELOR 350.1.13.10 it y of [facility] 4.2.7.2.686 Leonid as MATERNAL [phone] [facility] [address] [place] [address] 2020-11-01 2020-11-01 Orders Doctor NIKITA 1.2.840.114 [id number] Univers 00:00:00 00:00:00 Only Unassigned, DENNISE 350.1.13.10 ity of [place] [facility] 4.2.7.2.686 Leonid as [phone] [facility] 00[address] [place] 2020-10-24 2020-10-24 Outpatient WALTER BAKER [facility] JO ANN [id number] [facility] 12:00:00 12:00:00 GLENN French [facility] 2020-10-18 2020-10-18 [facility] 1.2.840.114 [id number] Univers 10:00:00 23:59:00 Encounter Glenn Venegas 350.1.13.10 ity [facility] 4.2.7.2.686 [place] [facility] [phone] [facility] [address] 2020-10-18 2020-10-18 Outpatient [facility] [id number] Univers 00:00:00 00:00:00 GLENN blancas of [facility] 2020-10-18 2020-10-18 Telephone [facility] 1.2.840.114 [id number] Univers 00:00:00 00:00:00 Chata Plasencia FAMILY SERVICE COUNSELOR 350.1.13.10 ity of [place]ION[place] 4.2.7.2.686 Leonid as MATERNAL [phone] [facility] & CHILD [address] [place] [address] 2020-09-20 2020-09-[address] [facility] [id number] Univers 00:00:00 00:00:00 GLENN blancas [facility] 2020-09-06 2020-09-06 Office [facility] 1.2.483.221 [id number] 09:59:10 10:36:20 Visit Glenn N FAMILY SERVICE COUNSELOR 350.1.13.10 REGIONAL 4.2.7.2.686 MATERNAL [phone] & [address] 2020-09-06 2020-09-06 Office [facility] 1.2.016.439 [id number] Univers 09:59:10 10:36:20 Visit Glenn Ramo FAMILY SERVICE COUNSELOR 350.1.13.10 it y of [place]ION[place] 4.2.7.2.686 Leonid as MATERNAL [phone] [address] 2020-09-06 2020-09-[address] [facility] [id number] Univers 10:00:00 10:00:00 GLENN blancas [facility] 2020-07-31 2020-07-31 Jennifer [facility] 1.2.840.114 [id number] Univers 00:00:00 00:00:00 Osiel R FAMILY SERVICE COUNSELOR 350.1.13.10 ity of [place] 4.2.7.2.686 Leonid as MATERNAL [phone] [facility] CHILD [address] [place] [address] 2020-07-13 2020-07-13 Office [facility] 1.2.840.114 [id number] Univers 08:10:53 08:51:04 Visit Osiel R FAMILY SERVICE COUNSELOR 350.1.13.10 ity of [place]ION[place] 4.2.7.2.686 Leonid as MATERNAL [phone] [facility] & CHILD [address] [place] [address] 2020-07-13 2020-07-[address] [facility] [id number] Univers 08:15:00 08:15:00 OSIEL da silvamark o f [facility] 2020-05-31 2020-05-31 Office Vivas, [facility] 1.2.840.114 [id number] Univers 08:24:02 08:54:02 Visit Kaylahjoseph Rosado FAMILY SERVICE COUNSELOR 350.1.13.10 ity of [facility] 4.2.7.2.686 Leonid as MATERNAL [phone] Med ical & CHILD [address] [place] [address] 2020-05-31 2020-05-[address] [facility] [id number] Univers 08:30:00 08:30:00 OSIEL yonny o f [facility] 2020-05-31 2020-05-31 Orders Doctor NIKITA 1.2.840.114 [id number] Univers 00:00:00 00:00:00 Only Unassigned, DENNISE 350.1.13.10 ity of [place] [facility] 4.2.7.2.686 Leonid as [phone] [address] 2020-04-25 2020-04-25 Emergency [facility] 1.2.840.114 [id number] Univers 11:24:00 13:07:00 Guera Venegas 350.1.13.10 ity of [place] 4.2.7.2.686 [place] [facility] [phone] [address] 2020-04-25 2020-04-25 Orders Doctor NIKITA 1.2.840.114 [id number] Univers 00:00:00 00:00:00 Only Unassigned, DENNISE 350.1.13.10 ity of [place] [facility] 4.2.7.2.686 Leonid as [phone] [address] 2020-04-21 2020-04-21 Nurse Visit, Ang-Rmchp Nurse [facility] 1.2 .840.114 [id number] Univers 09:15:40 09:32:53 Visit Vivas, Rosreggie Rosado FAMILY SERVICE COUNSELOR 350.1.13.10 ity of [facility] 4.2.7.2.686 Leonid as MATERNAL [phone] [facility] [address] [place] [address] 2020-04-21 2020-04-[address] [facility] [id number] Univers 08:30:00 08:30:00 ity of [facility] 2020-01-28 2020-01-28 Nurse Visit, Primo Nurse [facility] 1.2 .840.114 [id number] Univers 08:43:48 09:22:35 Visit Osiel Vivas Alonzo FAMILY SERVICE COUNSELOR 350.1.13.10 ity of [place] 4.2.7.2.686 Leonid as MATERNAL [phone] [facility] ical & CHILD [address] [place] [address] 2020-01-28 2020-01-[address] [facility] [id number] Univers 09:00:00 09:00:00 ity of [facility] 2019-11-10 2019-11-10 Outpatient [facility] [id number] Univers 08:30:00 08:30:00 OSIEL blancas o f [facility] 2019-11-05 2019-11-05 Office [facility] 1.2.840.114 [id number] Univers 08:32:17 09:21:05 Visit Osiel Alonzo FAMILY SERVICE COUNSELOR 350.1.13.10 ity of [place] 4.2.7.2.686 Leonid as MATERNAL [phone] [facility] [address] [place] [address] 2019-11-05 2019-11-05 Outpatient R [facility] [id number] Univers 08:30:00 08:30:00 DARLINGREGGIE blancas o f [facility] 2019-08-18 2019-08-18 Nurse Visit, Primo Nurse [facility] 1.2 .840.114 [id number] Univers 08:29:36 09:09:50 Visit Osiel Vivas Alonzo FAMILY SERVICE COUNSELOR 350.1.13.10 ity of [place] 4.2.7.2.686 Leonid as MATERNAL [phone] [facility] ical & CHILD [address] [place] [address] 2019-03-12 2019-03-12 Office [facility] Resident [facility]ERSIT 1.2.8 40.114 [id number] Univers 13:09:03 14:19:18 Visit Naveed Daley [facility] 350.1.13.10 ity of [place].2.[place] [phone] [facility] [address] 2019-03-12 2019-03-12 Orders Doctor NIKITA 1.2.840.114 [id number] Univers 00:00:00 00:00:00 Only Unassigned, DENNISE 350.1.13.10 ity of [place] [facility] 4.2.7.2.686 Leonid as [phone] [facility] [address] 2019-03-04 2019-03-04 [facility] 1.2 .840.114 [id number] Univers 08:28:59 08:46:23 Visit Osiel Vivas Alonzo FAMILY SERVICE COUNSELOR 350.1.13.10 ity of [facility] 4.2.7.2.686 Leonid as MATERNAL [phone] [facility] ical & CHILD 107 [facility] Results Test Description Test Time Test Comments Results Result Comments Source TSH, THIRD GENERATION 2023-05-03 06:53:21 Test Item Value Reference Range Interpretation Comme nts TSH, THIRD GENERATION (test 5.680 UIU/ML 0.400-4.100 H UNLESS OTHERWISE INDICATED, code = 2821) ALL TESTING PER FORMED AT CLINICAL PATHOL [employer], [place] [address] 3[address] [employer] PORTAL ARCHITECT: Patricia BORGES [id number] [place] [id number] COMPREHENSIVE METABOLIC [id number] 06:49:25 Test Item Value Reference Range Interpretation Comments GLUCOSE (test code = 95 MG/DL 70-99 2216) BUN (test code = 15 MG/DL 6-20 2207) CREATININE (test 1.22 MG/DL 0.60-1.30 code = 2214) eGFR (2020 CKD-EPI) 57 ML/MIN/1.73 >60 L The N KF-ASN (test code = 19845) Taskforc e recommends use of Cystatin C to confirm eGFR inadults at [facility] k for CKD. [facility] offers eGFR with Cystatin C-Creatinineusi ng the 2020 CKD-EP I eGFR_creat-cyst at equation (order code 3057) toincreas e the accuracy of estimated GFR. For more informatio n, contactyour acc ount executive or se e announcement [email or web address] ys CALC BUN/CREAT (test 12 RATIO 6-28 code = 2235) SODIUM (test code = 138 MEQ/L 860-845 6193) POTASSIUM (test code 4.5 MEQ/L 3.5-5.4 = 2228) CHLORIDE (test code 102 MEQ/L 95-107 = 2215) CARBON DIOXIDE (test 21 MEQ/L 19-31 code = 2206) CALCIUM (test code = 9.4 MG/DL 8.5-10.5 2208) PROTEIN, TOTAL (test 7.7 G/DL 6.1-8.3 code = 2229) ALBUMIN (test code = 4.8 G/DL 3.5-5.2 2200) CALC GLOBULIN (test 2.9 G/DL 1.9-3.7 code = 2240) CALC A/G RATIO (test 1.7 RATIO 1.0-2.6 code = 2234) BILIRUBIN, TOTAL 0.6 MG/DL <=1.2 (test code = 2207) ALKALINE PHOSPHATASE 98 U/L 40-113 (test code = 2204) AST (test code = 20 U/L 9-40 2217) ALT (test code = 16 U/L 5-40 2218) LIPID [id number] 06:49:25 Test Item Value Reference Range Interpretation Comments CHOLESTEROL (test 264 MG/DL <200 H code = 2210) TRIGLYCERIDES (test 156 MG/DL <150 H code = 2232) HDL CHOLESTEROL (test 59 MG/DL >39 code = 2220) CALC LDL CHOL (test 175 MG/DL <100 H NOTE: C ALCULATED LDL code = 2237) IS BASED ON LESLY-GRECO METHOD WHICHINCLUDES ADJUSTABLE TRIGLYCERIDE:VL DL CHOLESTEROL RAT IO.THIS FACTOR VARIES B Y MEASURED TRIGLY CERIDE AND NON-HDLCHOL ESTEROL CONCENTRATIONS WITH INCREASED CALCU LATED LDL SEENIN HIGH ER TRIGLYCERIDE OR LOWER NON-HDL SPECIME NS. FOR MOREINFORMATION , SEE CLIENT ANNOUNCE MENT AT [email or web address] RATIO LDL/HDL 2.97 RATIO <3.22 (test code = 2238) CULTURE, [id number] 15:30:18SPECIMEN NUMBER: [id number] CULTURE, URINE SPECIMEN NUMBER: [id number] SPECIMEN COMMENT: URINE SOURCE:URINE REPORT STATUS: FINAL ISOLATE NUMBER 1: IDENTIFICATION: 05/02/2023 <10,000 CFU/ML STREPTOCOCC US AGALACTIAE (GROUP B) ADDITIONAL OBSERVATIONS: PENICILLIN AND AMPICILLIN ARE DRUGS OF CHOICE FOR TREATMENT OF B-HEMOLYTIC STREPTOCOCCAL INFECTIONS. SUSCEPTIBILITY TESTING OF PENICILLIN AND OTHER B-LACTAMS APPROVED BY THE US FOOD AND DRUG ADMINISTRATION FOR TREATMENT OF B-HEMOLYTIC STREPTOCOCCAL INFECTIONS NEED NOT BE PERFORMED ROUTINELY. ADDITIONAL OBSERVATIONS: 05/02/2023 10-50,000 CFU/ML UROGENITAL CARSON PRESENT NO COMMON PATHOGENS UNLESS OTHERWISE INDICATED, ALL TESTING PERFORMED AT [facility] [address] [place] [address] WE[employer] PORTAL ARCHITECT: DERRICK FISHER M.D. CLIA NUMBER [id number] [facility] [place] [id number] METABOLIC [id number] 06:56:24 Test Item Value Reference Range Interpretation Comments GLUCOSE (test code = 101 MG/DL 70-99 H 2216) BUN (test code = 19 MG/DL -2207) CREATININE (test 1.28 MG/DL 0.60-1.30 code = 2214) eGFR (2020 CKD-EPI) 54 ML/MIN/1.73 >60 L The N KF-ASN (test code = 70317) Taskforc e recommends use of Cystatin C to confirm eGFR inadults at ris k for CKD. [facility] offers eGFR with Cystatin C-Creatinineusi ng the 2020 CKD-EP I eGFR_creat-cyst at equation (order code 3057) toincreas e the accuracy of estimated GFR. For more informatio n, contactyour [facility] ount executive or se e announcement [email or web address] ys CALC BUN/CREAT (test 15 RATIO -28 code = 2235) SODIUM (test code = 141 MEQ/L 672-537 5787) POTASSIUM (test code 4.5 MEQ/L 3.5-5.4 = 2227) CHLORIDE (test code 102 MEQ/L 95-107 = 221) CARBON DIOXIDE (test 24 MEQ/L 19-31 code = 2206) CALCIUM (test code = 10.2 MG/DL 8.5-10.5 2208) PROTEIN, TOTAL (test 8.2 G/DL 6.1-8.3 code = 2229) ALBUMIN (test code = 4.9 G/DL 3.5-5.2 2200) CALC GLOBULIN (test 3.3 G/DL 1.9-3.7 code = 2240) CALC A/G RATIO (test 1.5 RATIO 1.0-2.6 code = 2234) BILIRUBIN, TOTAL 0.5 MG/DL See_Comment [Automated message] (test code = 2207) The syste m which generated this result transmit paty reference range : <=1.2. The refe rence range was not u sed to interpret th is result as normal/abnormal . ALKALINE PHOSPHATASE 109 U/L 40-113 (test code = 2204) AST (test code = 18 U/L 9-40 2217) ALT (test code = 16 U/L 5-40 2218) LIPID [id number] 06:56:24 Test Item Value Reference Range Interpretation Comments CHOLESTEROL (test 285 MG/DL <200 H code = 2210) TRIGLYCERIDES (test 245 MG/DL <150 H code = 2232) HDL CHOLESTEROL (test 48 MG/DL >39 code = 2220) CALC LDL CHOL (test 192 MG/DL <100 H NOTE: C ALCULATED LDL code = 2237) IS BASED ON LESLY-GRECO METHOD WHICHINCLUDES ADJUSTABLE TRIGLYCERIDE:VL DL CHOLESTEROL RAT IO.THIS FACTOR VARIES B Y MEASURED TRIGLY CERIDE AND NON-HDLCHOL ESTEROL CONCENTRATIONS WITH INCREASED CALCU LATED LDL SEENIN HIGH ER TRIGLYCERIDE OR LOWER NON-HDL SPECIME NS. FOR MOREINFORMATION , SEE CLIENT ANNOUNCE MENT AT [email or web address] [email or web address] RATIO LDL/HDL 4.00 RATIO <3.22 H UNLESS O THERWISE (test code = 2238) INDICATED , ALL TESTING PERFORMED AT [facility] [place] [address] [facility] [place] [address] CARMEN HARDY DIRECTOR: Patricia BORGES LUIZ NUMBER [id number] [place]EDIT[place] N O. [id number] TSH, THIRD [id number] 06:30:05 Test Item Value Reference Range Interpretation Comments TSH, THIRD GENERATION (test code 3.020 UIU/ML 0.400-4.100 = 2821) ALBUMIN/CREATININE RATIO, URINE, [id number] 05:34:14 Test Item Value Reference Range Interpretation Comments CREATININE, URINE, 186.6 MG/DL NOT ESTAB CONC. (test code = 2072) ALBUMIN, URINE, 47.2 MG/DL NOT ESTAB RANDOM (test code = 22891) CALC ALBUMIN/CREAT, 253 MG/G <30 H Note: RND (test code = Albumin/Cre atinine 95660) ratio reference interval reflec ts ADA and NKF guideli kay. HEMOGLOBIN [id number] 05:00:36 Test Item Value Reference Range Interpretation Comments HEMOGLOBIN A1c (test 5.8 % 4.2-5.6 H AMERIC AN DIABETES code = 84058) ASSOCIATION IDELINES FOR HGB A1C: PREDIABETES/INC REASED RISK . . . . . . . 5.7 -6.4% DIAGNOSIS OF DI ABETES . . . . . . . . . >=6 .5% WITH CONFIRMATION OR APPROPRIATE SYMPTOMS NOTE: ASSAY MAY BE AFFECTED BY HEMOGLOBINOPATH IES (SICKLE CELL ANEMIA, S- C DISEASE, OTHERS) OR ELODIA FICIALLY LOWERED BY DECR EASED RED CELL SURVIVAL ( HEMOLYTIC ANEMIAS, BLOOD LOSS, ETC.). CONSIDER ALTERN ATE TESTING OR LABORATORY C ONSULTATION. CULTURE, [id number] 10:17:56SPECIMEN NUMBER: [id number] CULTURE, URINE SPECIMEN NUMBER: [id number] SPECIMEN COMMENT: URINE SOURCE:URINE REPORT STATUS: FINAL ISOLATE NUMBER 1: IDENTIFICATION: 04/14/2022 10-50,000 CFU/ML BETA-STREPTO COCCUS GROUP B ADDITIONAL OBSERVATIONS: PENICILLIN AND AMPICILLIN ARE DRUGS OF CHOICE FOR TREATMENT OF B-HEMOLYTIC STREPTOCOCCAL INFECTIONS. SUSCEPTIBILITY TESTING OF PENICILLIN AND OTHER B-LACTAMS APPROVED BY THE US FOOD AND DRUG ADMINISTRATION FOR TREATMENT OF B-HEMOLYTIC STREPTOCOCCAL INFECTIONS NEED NOT BE PERFORMED ROUTINELY. ADDITIONAL OBSERVATIONS: 04/14/2022 <10,000 CFU/ML UROGENITAL FLORAPRESENT NO COMMON PATHOGENSCULTURE, [id number] 00:00:00 Test Item Value Reference Range Interpretation Comments CULTURE, URINE (test SPECIMEN NUMBER: code = 13080) [id number] CULTURE, [id number] 00:00:00 Test Item Value Reference Range Interpretation Comments CULTURE, URINE (test SPECIMEN NUMBER: code = 32304) [id number] VAGINAL PATHOGENS DNA [id number] 15:15:22 Test Item Value Reference Range Interpretation Comments MARLENE SPECIES (test NEGATIVE NEGATIVE code = 09965) G. VAGINALIS (test NEGATIVE NEGATIVE code = 91407) T. VAGINALIS (test NEGATIVE NEGATIVE UNLESS O THERWISE code = 04525) INDICATED, ALL TESTING PERFORMED ATCLI NICAL PATHOLOGY [employer]. [address] [place], [place] [address] LABORATORY DIRE CTOR: CECILIA JACKSON M.D. CLIA NUMBER [id number] [place] [id number] VAGINAL PATHOGENS DNA [id number] 00:00:00 Test Item Value Reference Range Interpretation Comments MARLENE SPECIES (test code = 57881) NEGATIVE G. VAGINALIS (test code = 52863) NEGATIVE T. VAGINALIS (test code = 93105) NEGATIVE VAGINAL PATHOGENS DNA [id number] 00:00:00 Test Item Value Reference Range Interpretation Comments MARLENE SPECIES (test code = 53233) NEGATIVE G. VAGINALIS (test code = 63473) NEGATIVE T. VAGINALIS (test code = 99042) NEGATIVE NOTE:2022-03-27 06:01:43 Test Item Value Reference Range Interpretation Comments NOTE: (test code = (NOTE) IN ACCOR DANCE WITH FEDERAL 998) GUIDELINES REQU IRING ALL VERBAL REQUESTS FOR LABORATORY TEST S TO BE ACCOMPANIED BY WRITTEN AUTHORIZATION W ITHIN 30 DAYS OF THIS REQUEST , PLEASE SIGN BELOW AND RETUR N A COPY OF THIS REPORT BY FAX TO THE LABORATORY SCAN ROSIE DEPARTMENT AT . PHYSICIAN'S SIG NATURE DATE UNLESS OTHERWISE INDIC ATED, ALL TESTING PERFORM ED ATCLINICAL PATHOLOGY [employer]. [address] [place] [address] LABORATOR Y DIRECTOR: CECILIA JACKSON M.D. CLIA NUMBER [id number] [place] O. [id number] TSH, THIRD [id number] 00:28:21 Test Item Value Reference Range Interpretation [...] (test code = 998) (NOTE) COMPREHENSIVE METABOLIC [id number] 04:40:28 Test Item Value Reference Range Interpretation Comments GLUCOSE (test code = 93 MG/DL 70-99 2216) BUN (test code = 15 MG/DL 12-25) CREATININE (test 1.34 MG/DL 0.60-1.30 H code = 2214) eGFR (2020 CKD-EPI) 51 ML/MIN/1.73 >60 L The N KF-ASN (test code = 42031) Taskforc e recommends use of Cystatin C to confirm eGFR inadults at ris k for CKD. [facility] offers eGFR with Cystatin C-Creatinineusi ng the 2020 CKD-EP I eGFR_creat-cyst at equation (order code 3057) toincreas e the accuracy of estimated GFR. For more informatio n, contactyour [facility] ount executive or se e announcement [email or web address] ys CALC BUN/CREAT (test 11 RATIO 01-02 code = 2235) SODIUM (test code = 138 MEQ/L 168-469 5136) POTASSIUM (test code 4.6 MEQ/L 3.5-5.4 = [...] RATIO (test 1.6 RATIO 1.0-2.6 code = 2234) BILIRUBIN, TOTAL 0.9 MG/DL See_Comment [Automated message] (test code = 2207) The syste m which generated this result transmit paty reference range : <=1.2. The refe rence range was not u sed to interpret th is result as normal/abnormal . ALKALINE PHOSPHATASE 99 U/L 40-113 (test code = 2203) AST (test code = 23 U/L 9-40 2217) ALT (test code = 25 U/L 5-40 2218) LIPID [id number] 04:40:28 Test Item Value Reference Range Interpretation [...] MOREINFORMATION , SEE CLIENT ANNOUNCE MENT AT [email or web address] [email or web address] RATIO LDL/HDL 3.56 RATIO <3.22 H UNLESS O THERWISE (test code = 2237) INDICATED , ALL TESTING PERFORMED [facility] [place]. [address] [place] [id number] [place] [address] DIRECTOR: CECILIA CORNELL M.D. CLIA NUMBER [id number] CAP ACCREDITATION N O. [id number] HEMOGLOBIN [id number] 03:43:43 Test Item Value Reference Range Interpretation Comments HEMOGLOBIN A1c (test code = 63877) 5.7 % 4.2-5.6 H CBC W/AUTO DIFF WITH [id number] 03:13:23 Test Item Value Reference Range Interpretation [...] RBCS 0.00 K/UL 0.00-0.11 (test code = 78401) TSH, THIRD [id number] 06:19:29 Test Item Value Reference Range Interpretation Comments TSH, THIRD GENERATION (test code 1.070 UIU/ML 0.400-4.100 = 2821) COMPREHENSIVE METABOLIC [id number] 05:14:19 Test Item Value Reference Range Interpretation Comments GLUCOSE (test code = 96 MG/DL 70-99 2216) BUN (test code = 17 MG/DL 6-20 2207) CREATININE (test 1.20 MG/DL 0.60-1.30 code = 2214) eGFR (2020 CKD-EPI) 58 ML/MIN/1.73 >60 L (test code = 35150) CALC BUN/CREAT (test 14 RATIO 6-28 code = 2235) SODIUM (test code = 139 MEQ/L 398-388 4632) POTASSIUM (test code 4.7 MEQ/L 3.5-5.4 = 2227) CHLORIDE (test code 99 MEQ/L 95-107 = 2214) CARBON DIOXIDE (test 22 MEQ/L 19-31 code = 220) CALCIUM (test code = 10.2 MG/DL 8.5-10.5 2208) PROTEIN, TOTAL (test 8.3 G/DL 6.1-8.3 code = 222) ALBUMIN (test code = 4.9 G/DL 3.5-5.2 2200) CALC GLOBULIN (test 3.4 G/DL 1.9-3.7 code = 224) CALC A/G RATIO (test 1.4 RATIO 1.0-2.6 code = 223) BILIRUBIN, TOTAL 0.7 MG/DL See_Comment [Automated message] (test code = 2207) The syste m which generated this result transmit paty reference range : <=1.2. The refe rence range was not u sed to interpret th is result as normal/abnormal . ALKALINE PHOSPHATASE 115 U/L 40-113 H (test code = 2204) AST (test code = 25 U/L 9-40 2217) ALT (test code = 21 U/L 5-40 2218) LIPID [id number] 05:14:19 Test Item Value Reference Range Interpretation [...] MOREINFORMATION , SEE CLIENT ANNOUNCE MENT AT [email or web address] /[email or web address]-[email or web address] RISK RATIO LDL/HDL 3.03 RATIO <3.22 (test code = 2238) HEMOGLOBIN [id number] 02:42:04 Test Item Value Reference Range Interpretation Comments HEMOGLOBIN A1c (test 5.5 % 4.2-5.6 UNLESS OTHERWISE code = 89120) INDICATED, ALL TESTING PERFORMED [facility] [id number], [facility]. [address] [facility], [place] [id number] [place] [address] DIRECTOR: CECILIA CORNELL M.D. CLIA NUMBER [id number] CAP ACCREDITATION N O. [id number] LIPID [id number] 00:00:00 Test Item Value Reference Range Interpretation Comments CHOLESTEROL (test code = 2210) 281 MG/DL TRIGLYCERIDES (test code = 2232) 178 MG/DL HDL CHOLESTEROL (test code = 2220) 61 MG/DL CALC LDL CHOL (test code = 2237) 185 MG/DL RISK RATIO LDL/HDL (test code = 3.03 RATIO 2238) LIPID [id number] 00:00:00 Test Item Value Reference Range Interpretation Comments CHOLESTEROL (test code = 2210) 281 MG/DL TRIGLYCERIDES (test code = 2232) 178 MG/DL HDL CHOLESTEROL (test code = 2220) 61 MG/DL CALC LDL CHOL (test code = 2237) 185 MG/DL RISK RATIO LDL/HDL (test code = 3.03 RATIO 2238) [id number] 00:00:00 Test Item Value Reference Range Interpretation Comments TSH, THIRD GENERATION (test code 1.070 UIU/ML = 2821) [id number] 00:00:00 Test Item Value Reference Range Interpretation Comments TSH, THIRD GENERATION (test code 1.070 UIU/ML = 2821) [id number] 00:00:00 Test Item Value Reference Range Interpretation Comments TSH, THIRD GENERATION (test code 1.070 UIU/ML = 2821) HEMOGLOBIN [id number] 00:00:00 Test Item Value Reference Range Interpretation Comments HEMOGLOBIN A1c (test code = 17705) 5.5 % HEMOGLOBIN [id number] 00:00:00 Test Item Value Reference Range Interpretation Comments HEMOGLOBIN A1c (test code = 16440) 5.5 % HEMOGLOBIN [id number] 00:00:00 Test Item Value Reference Range Interpretation Comments HEMOGLOBIN A1c (test code = 43526) 5.5 % COMPREHENSIVE METABOLIC [id number] 00:00:00 Test Item Value Reference Range Interpretation Comments GLUCOSE (test code = 2217) 96 MG/DL BUN (test code = 2208) 17 MG/DL CREATININE (test code = 2214) 1.20 MG/DL eGFR (2020 CKD-EPI) (test code 58 ML/MIN/1.73 = 53418) CALC BUN/CREAT (test code = 14 RATIO [...] CALC GLOBULIN (test code = 3.4 G/DL 0) CALC A/G RATIO (test code = 1.4 RATIO 4) BILIRUBIN, TOTAL (test code = 0.7 MG/DL 2206) ALKALINE PHOSPHATASE (test 115 U/L code = 2204) AST (test code = 2218) 25 U/L ALT (test code = 2219) 21 U/L COMPREHENSIVE METABOLIC [id number] 00:00:00 Test Item Value Reference Range Interpretation Comments GLUCOSE (test code = 2217) 96 MG/DL BUN (test code = 2208) 17 MG/DL CREATININE (test code = 2214) 1.20 MG/DL eGFR (2020 CKD-EPI) (test code 58 ML/MIN/1.73 = 09542) CALC BUN/CREAT (test code = 14 RATIO [...] CALC GLOBULIN (test code = 3.4 G/DL 0) CALC A/G RATIO (test code = 1.4 RATIO 2234) BILIRUBIN, TOTAL (test code = 0.7 MG/DL 2206) ALKALINE PHOSPHATASE (test 115 U/L code = 2204) AST (test code = 2218) 25 U/L ALT (test code = 2219) 21 U/L LIPID [id number] 00:00:00 Test Item Value Reference Range Interpretation Comments CHOLESTEROL (test code = 2210) 281 MG/DL TRIGLYCERIDES (test code = 2232) 178 MG/DL HDL CHOLESTEROL (test code = 2220) 61 MG/DL CALC LDL CHOL (test code = 2237) 185 MG/DL RISK RATIO LDL/HDL (test code = 3.03 RATIO 2238) LIPID [id number] 00:00:00 Test Item Value Reference Range Interpretation Comments CHOLESTEROL (test code = 2210) 281 MG/DL TRIGLYCERIDES (test code = 2232) 178 MG/DL HDL CHOLESTEROL (test code = 2220) 61 MG/DL CALC LDL CHOL (test code = 2237) 185 MG/DL RISK RATIO LDL/HDL (test code = 3.03 RATIO 2238) [id number] 00:00:00 Test Item Value Reference Range Interpretation Comments TSH, THIRD GENERATION (test code 1.070 UIU/ML = 2821) [id number] 00:00:00 Test Item Value Reference Range Interpretation Comments TSH, THIRD GENERATION (test code 1.070 UIU/ML = 2821) [id number] 00:00:00 Test Item Value Reference Range Interpretation Comments TSH, THIRD GENERATION (test code 1.070 UIU/ML = 2821) HEMOGLOBIN [id number] 00:00:00 Test Item Value Reference Range Interpretation Comments HEMOGLOBIN A1c (test code = 99887) 5.5 % HEMOGLOBIN [id number] 00:00:00 Test Item Value Reference Range Interpretation Comments HEMOGLOBIN A1c (test code = 29105) 5.5 % HEMOGLOBIN [id number] 00:00:00 Test Item Value Reference Range Interpretation Comments HEMOGLOBIN A1c (test code = 31656) 5.5 % COMPREHENSIVE METABOLIC [id number] 00:00:00 Test Item Value Reference Range Interpretation Comments GLUCOSE (test code = 2217) 96 MG/DL BUN (test code = 2208) 17 MG/DL CREATININE (test code = 2214) 1.20 MG/DL eGFR (2020 CKD-EPI) (test code 58 ML/MIN/1.73 = 85230) CALC BUN/CREAT (test code = 14 RATIO [...] code = 2219) 21 U/L COMPREHENSIVE METABOLIC [id number] 00:00:00 Test Item Value Reference Range Interpretation Comments GLUCOSE (test code = 2217) 96 MG/DL BUN (test code = 2208) 17 MG/DL CREATININE (test code = 2214) 1.20 MG/DL eGFR (2020 CKD-EPI) (test code 58 ML/MIN/1.73 = 01515) CALC BUN/CREAT (test code = 14 RATIO 2235) SODIUM (test code = 2231) 139 MEQ/L POTASSIUM (test code = 2228) 4.7 MEQ/L CHLORIDE (test code = 2215) 99 MEQ/L CARBON DIOXIDE (test code = 22 MEQ/L 220) CALCIUM (test code = 2209) 10.2 MG/DL [...] 2219) 21 U/L CBC W/AUTO DIFF WITH [id number] 06:15:32 Test Item Value Reference Range Interpretation [...] RBCS 0.00 K/UL 0.00-0.11 (test code = 55157) ALBUMIN, URINE, [id number] 05:20:38 Test Item Value Reference Range Interpretation Comments ALBUMIN, URINE, 4.6 MG/DL NOT ESTAB UNLESS OTHE RWISE RANDOM (test code = INDICATE D, ALL TESTING 62668) PERFORMED [facility] [address] [place] [address] [facility] DIRECTOR: CECILIA CORNELL M.D. CLIA NUMBER [id number] CAP ACCREDITATION N O. [id number] LIPID [id number] 04:45:32 Test Item Value Reference Range Interpretation [...] , SEE CLIENT ANNOUNCE MENT AT [email or web address] RISK RATIO LDL/HDL 2.54 RATIO <3.22 (test code = 2238) COMPREHENSIVE METABOLIC [id number] 04:45:32 Test Item Value Reference Range Interpretation Comments GLUCOSE (test code = 100 MG/DL 70-99 H 2216) BUN (test code = 16 MG/DL 12-25) CREATININE (test 1.15 MG/DL 0.60-1.30 code = 2214) eGFR (2020 CKD-EPI) 62 ML/MIN/1.73 >60 (test code = 06278) CALC BUN/CREAT (test 14 RATIO -28 code = 2235) SODIUM (test code = 138 MEQ/L 909-458 4981) POTASSIUM (test code 4.2 MEQ/L 3.5-5.4 = 2228) CHLORIDE (test code 98 MEQ/L 95-107 = 2215) CARBON DIOXIDE (test 25 MEQ/L 19-31 code = 2206) CALCIUM (test code = 10.0 MG/DL 8.5-10.5 2208) PROTEIN, TOTAL (test 8.1 G/DL 6.1-8.3 code = 2229) ALBUMIN (test code = 4.7 G/DL 3.5-5.2 2200) CALC GLOBULIN (test 3.4 G/DL 1.9-3.7 code = 2240) CALC A/G RATIO (test 1.4 RATIO 1.0-2.6 code = 2234) BILIRUBIN, TOTAL 0.6 MG/DL See_Comment [Automated message] (test code = 220) The syste m which generated this result transmit paty reference range : <=1.2. The refe rence range was not u sed to interpret th is result as normal/abnormal . ALKALINE PHOSPHATASE 106 U/L 40-112 (test code = 220) AST (test code = 20 U/L 9-40 2217) ALT (test code = 14 U/L 5-40 2218) LIPID [id number] 00:00:00 Test Item Value Reference Range Interpretation Comments CHOLESTEROL (test code = 2210) 243 MG/DL TRIGLYCERIDES (test code = 2232) 195 MG/DL HDL CHOLESTEROL (test code = 2220) 59 MG/DL CALC LDL CHOL (test code = 2237) 150 MG/DL RISK RATIO LDL/HDL (test code = 2.54 RATIO 2238) LIPID [id number] 00:00:00 Test Item Value Reference Range Interpretation Comments CHOLESTEROL (test code = 2210) 243 MG/DL TRIGLYCERIDES (test code = 2232) 195 MG/DL HDL CHOLESTEROL (test code = 2220) 59 MG/DL CALC LDL CHOL (test code = 2237) 150 MG/DL RISK RATIO LDL/HDL (test code = 2.54 RATIO 2238) COMPREHENSIVE METABOLIC [id number] 00:00:00 Test Item Value Reference Range Interpretation Comments GLUCOSE (test code = 2217) 100 MG/DL BUN (test code = 2208) 16 MG/DL CREATININE (test code = 2214) 1.15 MG/DL eGFR (2020 CKD-EPI) (test code 62 ML/MIN/1.73 = 53260) CALC BUN/CREAT (test code = 14 RATIO 2235) SODIUM (test code = 2231) 138 MEQ/L POTASSIUM (test code = 2228) 4.2 MEQ/L CHLORIDE (test code = 2215) 98 MEQ/L CARBON DIOXIDE (test code = 25 MEQ/L 2206) CALCIUM (test code = 2209) 10.0 MG/DL PROTEIN, TOTAL (test code = 8.1 G/DL 2228) ALBUMIN (test code = 2201) 4.7 G/DL CALC GLOBULIN (test code = 3.4 G/DL 2240) CALC A/G RATIO (test code = 1.4 RATIO 2234) BILIRUBIN, TOTAL (test code = 0.6 MG/DL 2206) ALKALINE PHOSPHATASE (test 106 U/L code = 220) AST (test code = 2218) 20 U/L ALT (test code = 2219) 14 U/L COMPREHENSIVE METABOLIC [id number] 00:00:00 Test Item Value Reference Range Interpretation Comments GLUCOSE (test code = 2217) 100 MG/DL BUN (test code = 2208) 16 MG/DL CREATININE (test code = 2214) 1.15 MG/DL eGFR (2020 CKD-EPI) (test code 62 ML/MIN/1.73 = 49551) CALC BUN/CREAT (test code = 14 RATIO [...] (test code = 2219) 14 U/L MICROALBUMIN, [id number] 00:00:00 Test Item Value Reference Range Interpretation Comments ALBUMIN, URINE, RANDOM (test code = 4.6 MG/DL 43144) MICROALBUMIN, [id number] 00:00:00 Test Item Value Reference Range Interpretation Comments ALBUMIN, URINE, RANDOM (test code = 4.6 MG/DL 16139) CBC W/AUTO [id number] 00:00:00 Test Item Value Reference Range Interpretation [...] NUCLEATED RBCS (test code = 0.00 K/UL 87199) CBC W/AUTO [id number] 00:00:00 Test Item Value Reference Range Interpretation [...] NUCLEATED RBCS (test code = 0.00 K/UL 54768) CBC W/AUTO [id number] 00:00:00 Test Item Value Reference Range Interpretation [...] NUCLEATED RBCS (test code = 0.00 K/UL 09833) LIPID [id number] 00:00:00 Test Item Value Reference Range Interpretation Comments CHOLESTEROL (test code = 2210) 243 MG/DL TRIGLYCERIDES (test code = 2232) 195 MG/DL HDL CHOLESTEROL (test code = 2220) 59 MG/DL CALC LDL CHOL (test code = 2237) 150 MG/DL RISK RATIO LDL/HDL (test code = 2.54 RATIO 2238) LIPID [id number] 00:00:00 Test Item Value Reference Range Interpretation Comments CHOLESTEROL (test code = 2210) 243 MG/DL TRIGLYCERIDES (test code = 2232) 195 MG/DL HDL CHOLESTEROL (test code = 2220) 59 MG/DL CALC LDL CHOL (test code = 2237) 150 MG/DL RISK RATIO LDL/HDL (test code = 2.54 RATIO 2238) COMPREHENSIVE METABOLIC [id number] 00:00:00 Test Item Value Reference Range Interpretation Comments GLUCOSE (test code = 2217) 100 MG/DL BUN (test code = 2208) 16 MG/DL CREATININE (test code = 2214) 1.15 MG/DL eGFR (2020 CKD-EPI) (test code 62 ML/MIN/1.73 = 23659) CALC BUN/CREAT (test code = 14 RATIO [...] = 0.6 MG/DL 2207) ALKALINE PHOSPHATASE (test 106 U/L code = 2204) AST (test code = 2218) 20 U/L ALT (test code = 2219) 14 U/L COMPREHENSIVE METABOLIC [id number] 00:00:00 Test Item Value Reference Range Interpretation Comments GLUCOSE (test code = 2217) 100 MG/DL BUN (test code = 2208) 16 MG/DL CREATININE (test code = 2214) 1.15 MG/DL eGFR (2020 CKD-EPI) (test code 62 ML/MIN/1.73 = 60420) CALC BUN/CREAT (test code = 14 RATIO [...] (test code = 2219) 14 U/L MICROALBUMIN, [id number] 00:00:00 Test Item Value Reference Range Interpretation Comments ALBUMIN, URINE, RANDOM (test code = 4.6 MG/DL 32340) MICROALBUMIN, [id number] 00:00:00 Test Item Value Reference Range Interpretation Comments ALBUMIN, URINE, RANDOM (test code = 4.6 MG/DL 92868) CBC W/AUTO [id number] 00:00:00 Test Item Value Reference Range Interpretation [...] NUCLEATED RBCS (test code = 0.00 K/UL 90699) CBC W/AUTO [id number] 00:00:00 Test Item Value Reference Range Interpretation [...] NUCLEATED RBCS (test code = 0.00 K/UL 61158) CBC W/AUTO [id number] 00:00:00 Test Item Value Reference Range Interpretation [...] NUCLEATED RBCS (test code = 0.00 K/UL 61900) SARS-CoV-2 (COVID-19), RT-PCR/[id number] 17:21:35 Test Item Value Reference Interpretation Comments Range SARS-CoV-2 NEGATIVE SEE NOTE SARS-CoV-2 RNA NOT INTERPRETATION DETECTEDNegat red (test code = 81132) results do not preclude SARS-C oV-2 infection and s anisha notbe used as t he sole basis [...] (test code = NASOPHARYNGEAL Note: [place] [address]) Virginie Stephani Kaylee l-Time RT-PCR. The exp ected result or refer ence range is NEGATI VE (Not Detected). For more information reg arding COVID-19 testin g to include clinicalinforma tion, methodology det ail, intended use, F DA authorization andrecommended fact sheets for ralph ents or healthcare prov iders, see NewTest Announcement: SARS-CoV-2 (COV ID-19) by NAAT at URL below (note,fact shee ts are provided by met hod given in report:[email or web address]:// [email or web address] [email or web address] Alternatively, see downloadable PD F fact sheet at:https://www. [employer]/COVID-19-R T-PCR UNLESS OTHERWIS E INDICATED, ALL TESTING PERFORMED [facility] [place] [address] [place] [id number] [facility] DIRECTOR: CECILIA CORNELL M.D. CLIA NUMBER [id number] CAP ACCREDITATION N O. [id number] SARS-CoV-2 (COVID-19) by RT-PCR (HIGH RISK)2021-07-16 00:00:00 Test Item Value Reference Range Interpretation Comments SARS-CoV-2 INTERPRETATION NEGATIVE (test code = 57547) SOURCE (test code = 52700) NASOPHARYNGEAL SARS-CoV-2 (COVID-19) by RT-PCR (HIGH RISK)2021-07-16 00:00:00 Test Item Value Reference Range Interpretation Comments SARS-CoV-2 INTERPRETATION NEGATIVE (test code = 08074) SOURCE (test code = 65849) NASOPHARYNGEAL SARS-CoV-2 (COVID-19) by RT-PCR (HIGH RISK)2021-07-16 00:00:00 Test Item Value Reference Range Interpretation Comments SARS-CoV-2 INTERPRETATION NEGATIVE (test code = 49285) SOURCE (test code = 90226) NASOPHARYNGEAL SARS-CoV-2 (COVID-19) by RT-PCR (HIGH RISK)2021-07-16 00:00:00 Test Item Value Reference Range Interpretation Comments SARS-CoV-2 INTERPRETATION NEGATIVE (test code = 40720) SOURCE (test code = 95476) NASOPHARYNGEAL [id number] 00:00:00 Test Item Value Reference Range Interpretation Comments TSH, THIRD GENERATION (test code 0.705 UIU/ML = 2821) [id number] 00:00:00 Test Item Value Reference Range Interpretation Comments TSH, THIRD GENERATION (test code 0.705 UIU/ML = 2821) [id number] 00:00:00 Test Item Value Reference Range Interpretation Comments TSH, THIRD GENERATION (test code 0.705 UIU/ML = 2821) [id number] 00:00:00 Test Item Value Reference Range Interpretation Comments TSH, THIRD GENERATION (test code 0.705 UIU/ML = 2821) [id number] 00:00:00 Test Item Value Reference Range Interpretation Comments TSH, THIRD GENERATION (test code 0.705 UIU/ML = 2821) [id number] 00:00:00 Test Item Value Reference Range Interpretation Comments TSH, THIRD GENERATION (test code 0.705 UIU/ML = 2821) H. PYLORI (BREATH)2021-04-11 00:00:00 Test Item Value Reference Range Interpretation Comments H. PYLORI (BREATH) (test code = NEGATIVE 37301) H. PYLORI (BREATH)2021-04-11 00:00:00 Test Item Value Reference Range Interpretation Comments H. PYLORI (BREATH) (test code = NEGATIVE 31512) HEMOGLOBIN [id number] 00:00:00 Test Item Value Reference Range Interpretation Comments HEMOGLOBIN A1c (test code = 77763) 5.5 % HEMOGLOBIN [id number] 00:00:00 Test Item Value Reference Range Interpretation Comments HEMOGLOBIN A1c (test code = 35553) 5.5 % HEMOGLOBIN [id number] 00:00:00 Test Item Value Reference Range Interpretation Comments HEMOGLOBIN A1c (test code = 79121) 5.5 % H. PYLORI (BREATH)2021-04-11 00:00:00 Test Item Value Reference Range Interpretation Comments H. PYLORI (BREATH) (test code = NEGATIVE 24277) H. PYLORI (BREATH)2021-04-11 00:00:00 Test Item Value Reference Range Interpretation Comments H. PYLORI (BREATH) (test code = NEGATIVE 57155) HEMOGLOBIN [id number] 00:00:00 Test Item Value Reference Range Interpretation Comments HEMOGLOBIN A1c (test code = 24655) 5.5 % HEMOGLOBIN [id number] 00:00:00 Test Item Value Reference Range Interpretation Comments HEMOGLOBIN A1c (test code = 51771) 5.5 % HEMOGLOBIN [id number] 00:00:00 Test Item Value Reference Range Interpretation Comments HEMOGLOBIN A1c (test code = 43190) 5.5 % MICROALBUMIN/CREATININE, RANDOM AND [id number] 00:00:00 Test Item Value Reference Range Interpretation Comments CREATININE, URINE, CONC. (test 13.0 MG/DL code = 2072) ALBUMIN, URINE, RANDOM (test code 3.0 MG/DL = 21668) CALC ALBUMIN/CREAT, RND (test code 231 MG/G = 55555) MICROALBUMIN/CREATININE, RANDOM AND [id number] 00:00:00 Test Item Value Reference Range Interpretation Comments CREATININE, URINE, CONC. (test 13.0 MG/DL code = 2072) ALBUMIN, URINE, RANDOM (test code 3.0 MG/DL = 72575) CALC ALBUMIN/CREAT, RND (test code 231 MG/G = 47991) MICROALBUMIN/CREATININE, RANDOM AND [id number] 00:00:00 Test Item Value Reference Range Interpretation Comments CREATININE, URINE, CONC. (test 13.0 MG/DL code = 2072) ALBUMIN, URINE, RANDOM (test code 3.0 MG/DL = 61702) CALC ALBUMIN/CREAT, RND (test code 231 MG/G = 25625) MICROALBUMIN/CREATININE, RANDOM AND [id number] 00:00:00 Test Item Value Reference Range Interpretation Comments CREATININE, URINE, CONC. (test 13.0 MG/DL code = 2072) ALBUMIN, URINE, RANDOM (test code 3.0 MG/DL = 05097) CALC ALBUMIN/CREAT, RND (test code 231 MG/G = 02517) [id number] 00:00:00 Test Item Value Reference Range Interpretation Comments TSH, THIRD GENERATION (test code 1.370 UIU/ML = 2821) [id number] 00:00:00 Test Item Value Reference Range Interpretation Comments TSH, THIRD GENERATION (test code 1.370 UIU/ML = 2821) [id number] 00:00:00 Test Item Value Reference Range Interpretation Comments TSH, THIRD GENERATION (test code 1.370 UIU/ML = 2821) CBC W/AUTO [id number] 00:00:00 Test Item Value Reference Range Interpretation [...] NUCLEATED RBCS (test code = 0.00 K/UL 21008) CBC W/AUTO [id number] 00:00:00 Test Item Value Reference Range Interpretation [...] NUCLEATED RBCS (test code = 0.00 K/UL 58612) CBC W/AUTO [id number] 00:00:00 Test Item Value Reference Range Interpretation [...] NUCLEATED RBCS (test code = 0.00 K/UL 02847) SEDIMENTATION [id number] 00:00:00 Test Item Value Reference Range Interpretation Comments SEDIMENTATION RATE (test code = 27 MM/HOUR 1017) SEDIMENTATION [id number] 00:00:00 Test Item Value Reference Range Interpretation Comments SEDIMENTATION RATE (test code = 27 MM/HOUR 1017) LUCA NON-REFLEX TO [id number] 00:00:00 Test Item Value Reference Range Interpretation Comments ANTI-NUCLEAR ANTIBODIES (test code = NEGATIVE 3506) LUCA NON-REFLEX TO [id number] 00:00:00 Test Item Value Reference Range Interpretation Comments ANTI-NUCLEAR ANTIBODIES (test code = NEGATIVE 3506) COMPREHENSIVE METABOLIC [id number] 00:00:00 Test Item Value Reference Range Interpretation Comments GLUCOSE (test code = 2217) 76 MG/DL BUN (test code = 2208) 16 MG/DL CREATININE (test code = 2214) 1.21 MG/DL eGFR AMER. (test code 65 ML/MIN/1.73 = 11204) eGFR NON- AMER. (test 56 ML/MIN/1.73 code = 89312) CALC BUN/CREAT (test code = 13 RATIO 2235) SODIUM (test code = 2231) 139 MEQ/L POTASSIUM (test code = 2228) 4.8 MEQ/L CHLORIDE (test code = 2215) 100 MEQ/L CARBON DIOXIDE (test code = 24 MEQ/L 2206) CALCIUM (test code = 2209) 9.8 MG/DL PROTEIN, TOTAL (test code = 7.9 G/DL 2229) ALBUMIN (test code = 2201) 4.6 G/DL CALC GLOBULIN (test code = 3.3 G/DL 2240) CALC A/G RATIO (test code = 1.4 RATIO 2234) BILIRUBIN, TOTAL (test code = 0.6 MG/DL 2207) ALKALINE PHOSPHATASE (test 119 U/L code = 2204) AST (test code = 2218) 26 U/L ALT (test code = 2219) 22 U/L COMPREHENSIVE METABOLIC [id number] 00:00:00 Test Item Value Reference Range Interpretation Comments GLUCOSE (test code = 2217) 76 MG/DL BUN (test code = 2208) 16 MG/DL CREATININE (test code = 2214) 1.21 MG/DL eGFR AMER. (test code 65 ML/MIN/1.73 = 56636) eGFR NON- AMER. (test 56 ML/MIN/1.73 code = 24464) CALC BUN/CREAT (test code = 13 RATIO 2235) SODIUM (test code = 2231) 139 MEQ/L POTASSIUM (test code = 2228) 4.8 MEQ/L CHLORIDE (test code = 2215) 100 MEQ/L CARBON DIOXIDE (test code = 24 MEQ/L 2205) CALCIUM (test code = 2209) 9.8 MG/DL PROTEIN, TOTAL (test code = 7.9 G/DL 222) ALBUMIN (test code = 2201) 4.6 G/DL CALC GLOBULIN (test code = 3.3 G/DL 2240) CALC A/G RATIO (test code = 1.4 RATIO 2234) BILIRUBIN, TOTAL (test code = 0.6 MG/DL 2207) ALKALINE PHOSPHATASE (test 119 U/L code = 2204) AST (test code = 2218) 26 U/L ALT (test code = 2219) 22 U/L [id number] 00:00:00 Test Item Value Reference Range Interpretation Comments TSH, THIRD GENERATION (test code 1.370 UIU/ML = 2821) [id number] 00:00:00 Test Item Value Reference Range Interpretation Comments TSH, THIRD GENERATION (test code 1.370 UIU/ML = 2821) [id number] 00:00:00 Test Item Value Reference Range Interpretation Comments TSH, THIRD GENERATION (test code 1.370 UIU/ML = 2821) CBC W/AUTO [id number] 00:00:00 Test Item Value Reference Range Interpretation [...] NUCLEATED RBCS (test code = 0.00 K/UL 03078) CBC W/AUTO [id number] 00:00:00 Test Item Value Reference Range Interpretation [...] NUCLEATED RBCS (test code = 0.00 K/UL 27489) CBC W/AUTO [id number] 00:00:00 Test Item Value Reference Range Interpretation [...] NUCLEATED RBCS (test code = 0.00 K/UL 94771) SEDIMENTATION [id number] 00:00:00 Test Item Value Reference Range Interpretation Comments SEDIMENTATION RATE (test code = 27 MM/HOUR 1017) SEDIMENTATION [id number] 00:00:00 Test Item Value Reference Range Interpretation Comments SEDIMENTATION RATE (test code = 27 MM/HOUR 1017) LUCA NON-REFLEX TO [id number] 00:00:00 Test Item Value Reference Range Interpretation Comments ANTI-NUCLEAR ANTIBODIES (test code = NEGATIVE 3506) LUCA NON-REFLEX TO [id number] 00:00:00 Test Item Value Reference Range Interpretation Comments ANTI-NUCLEAR ANTIBODIES (test code = NEGATIVE 3506) COMPREHENSIVE METABOLIC [id number] 00:00:00 Test Item Value Reference Range Interpretation Comments GLUCOSE (test code = 2217) 76 MG/DL BUN (test code = 2208) 16 MG/DL CREATININE (test code = 2214) 1.21 MG/DL eGFR AMER. (test code 65 ML/MIN/1.73 = 00884) eGFR NON- AMER. (test 56 ML/MIN/1.73 code = 90361) CALC BUN/CREAT (test code = 13 RATIO [...] CALC GLOBULIN (test code = 3.3 G/DL 0) CALC A/G RATIO (test code = 1.4 RATIO 2233) BILIRUBIN, TOTAL (test code = 0.6 MG/DL 2206) ALKALINE PHOSPHATASE (test 119 U/L code = 2204) AST (test code = 2218) 26 U/L ALT (test code = 2219) 22 U/L COMPREHENSIVE METABOLIC [id number] 00:00:00 Test Item Value Reference Range Interpretation Comments GLUCOSE (test code = 2217) 76 MG/DL BUN (test code = 2208) 16 MG/DL CREATININE (test code = 2214) 1.21 MG/DL eGFR AMER. (test code 65 ML/MIN/1.73 = 87616) eGFR NON- AMER. (test 56 ML/MIN/1.73 code = 27969) CALC BUN/CREAT (test code = 13 RATIO 5) SODIUM (test code = 2231) 139 MEQ/L POTASSIUM (test code = 2228) 4.8 MEQ/L CHLORIDE (test code = 2215) 100 MEQ/L CARBON DIOXIDE (test code = 24 MEQ/L 2205) CALCIUM (test code = 2209) 9.8 MG/DL PROTEIN, TOTAL (test code = 7.9 G/DL 2228) ALBUMIN (test code = 220) 4.6 G/DL CALC GLOBULIN (test code = 3.3 G/DL 2239) CALC A/G RATIO (test code = 1.4 RATIO 2233) BILIRUBIN, TOTAL (test code = 0.6 MG/DL 2206) ALKALINE PHOSPHATASE (test 119 U/L code = 2204) AST (test code = 2218) 26 U/L ALT (test code = 2219) 22 U/L VITAMIN D, 25 [id number] 00:00:00 Test Item Value Reference Range Interpretation Comments VITAMIN D, 25 OH (test code = 4958) 24 NG/ML [id number] 00:00:00 Test Item Value Reference Range Interpretation Comments TSH, THIRD GENERATION (test code 1.200 UIU/ML = 2821) [id number] 00:00:00 Test Item Value Reference Range Interpretation Comments TSH, THIRD GENERATION (test code 1.200 UIU/ML = 2821) [id number] 00:00:00 Test Item Value Reference Range Interpretation Comments TSH, THIRD GENERATION (test code 1.200 UIU/ML = 2821) COMPREHENSIVE METABOLIC [id number] 00:00:00 Test Item Value Reference Range Interpretation Comments GLUCOSE (test code = 2217) 87 MG/DL BUN (test code = 2208) 15 MG/DL CREATININE (test code = 2214) 1.14 MG/DL eGFR AMER. (test code 70 ML/MIN/1.73 = 59334) eGFR NON- AMER. (test 60 ML/MIN/1.73 code = 57455) CALC BUN/CREAT (test code = 13 RATIO [...] ALKALINE PHOSPHATASE (test 110 U/L code = 220) AST (test code = 2218) 26 U/L ALT (test code = 2219) 23 U/L COMPREHENSIVE METABOLIC [id number] 00:00:00 Test Item Value Reference Range Interpretation Comments GLUCOSE (test code = 2217) 87 MG/DL BUN (test code = 2208) 15 MG/DL CREATININE (test code = 2214) 1.14 MG/DL eGFR AMER. (test code 70 ML/MIN/1.73 = 60207) eGFR NON- AMER. (test 60 ML/MIN/1.73 code = 62830) CALC BUN/CREAT (test code = 13 RATIO [...] = 2219) 23 U/L VITAMIN D, 25 [id number] 00:00:00 Test Item Value Reference Range Interpretation Comments VITAMIN D, 25 OH (test code = 4958) 24 NG/ML VITAMIN D, 25 [id number] 00:00:00 Test Item Value Reference Range Interpretation Comments VITAMIN D, 25 OH (test code = 4958) 24 NG/ML [id number] 00:00:00 Test Item Value Reference Range Interpretation Comments TSH, THIRD GENERATION (test code 1.200 UIU/ML = 2821) [id number] 00:00:00 Test Item Value Reference Range Interpretation Comments TSH, THIRD GENERATION (test code 1.200 UIU/ML = 2821) [id number] 00:00:00 Test Item Value Reference Range Interpretation Comments TSH, THIRD GENERATION (test code 1.200 UIU/ML = 2821) COMPREHENSIVE METABOLIC [id number] 00:00:00 Test Item Value Reference Range Interpretation Comments GLUCOSE (test code = 2217) 87 MG/DL BUN (test code = 2208) 15 MG/DL CREATININE (test code = 2214) 1.14 MG/DL eGFR AMER. (test code 70 ML/MIN/1.73 = 43236) eGFR NON- AMER. (test 60 ML/MIN/1.73 code = 03412) CALC BUN/CREAT (test code = 13 RATIO [...] CALC GLOBULIN (test code = 2.9 G/DL 0) CALC A/G RATIO (test code = 1.5 RATIO 2234) BILIRUBIN, TOTAL (test code = 0.6 MG/DL 2206) ALKALINE PHOSPHATASE (test 110 U/L code = 2204) AST (test code = 2218) 26 U/L ALT (test code = 2219) 23 U/L COMPREHENSIVE METABOLIC [id number] 00:00:00 Test Item Value Reference Range Interpretation Comments GLUCOSE (test code = 2217) 87 MG/DL BUN (test code = 2208) 15 MG/DL CREATININE (test code = 2214) 1.14 MG/DL eGFR AMER. (test code 70 ML/MIN/1.73 = 22429) eGFR NON- AMER. (test 60 ML/MIN/1.73 code = 21984) CALC BUN/CREAT (test code = 13 RATIO [...] = 2219) 23 U/L VITAMIN D, 25 [id number] 00:00:00 Test Item Value Reference Range Interpretation Comments VITAMIN D, 25 OH (test code = 4958) 24 NG/ML HEMOGLOBIN [id number] 00:00:00 Test Item Value Reference Range Interpretation Comments HEMOGLOBIN A1c (test code = 58989) 5.5 % LIPID [id number] 00:00:00 Test Item Value Reference Range Interpretation Comments CHOLESTEROL (test code = 2210) 207 MG/DL TRIGLYCERIDES (test code = 2232) 156 MG/DL HDL CHOLESTEROL (test code = 2220) 65 MG/DL CALC LDL CHOL (test code = 2237) 115 MG/DL RISK RATIO LDL/HDL (test code = 1.77 RATIO 2238) LIPID [id number] 00:00:00 Test Item Value Reference Range Interpretation Comments CHOLESTEROL (test code = 2210) 207 MG/DL TRIGLYCERIDES (test code = 2232) 156 MG/DL HDL CHOLESTEROL (test code = 2220) 65 MG/DL CALC LDL CHOL (test code = 2237) 115 MG/DL RISK RATIO LDL/HDL (test code = 1.77 RATIO 2238) COMPREHENSIVE METABOLIC [id number] 00:00:00 Test Item Value Reference Range Interpretation Comments GLUCOSE (test code = 2217) 91 MG/DL BUN (test code = 2208) 15 MG/DL CREATININE (test code = 2214) 0.99 MG/DL eGFR AMER. (test code 83 ML/MIN/1.73 = 95748) eGFR NON- AMER. (test 72 ML/MIN/1.73 code = 61543) CALC BUN/CREAT (test code = 15 RATIO [...] code = 2219) 130 U/L COMPREHENSIVE METABOLIC [id number] 00:00:00 Test Item Value Reference Range Interpretation Comments GLUCOSE (test code = 2217) 91 MG/DL BUN (test code = 2208) 15 MG/DL CREATININE (test code = 2214) 0.99 MG/DL eGFR AMER. (test code 83 ML/MIN/1.73 = 02968) eGFR NON- AMER. (test 72 ML/MIN/1.73 code = 12754) CALC BUN/CREAT (test code = 15 RATIO [...] ALT (test code = 2219) 130 U/L [id number] 00:00:00 Test Item Value Reference Range Interpretation Comments TSH, THIRD GENERATION (test code 7.820 UIU/ML = 2821) [id number] 00:00:00 Test Item Value Reference Range Interpretation Comments TSH, THIRD GENERATION (test code 7.820 UIU/ML = 2821) [id number] 00:00:00 Test Item Value Reference Range Interpretation Comments TSH, THIRD GENERATION (test code 7.820 UIU/ML = 2821) VITAMIN D, 25 [id number] 00:00:00 Test Item Value Reference Range Interpretation Comments VITAMIN D, 25 OH (test code = 4958) 26 NG/ML VITAMIN D, 25 [id number] 00:00:00 Test Item Value Reference Range Interpretation Comments VITAMIN D, 25 OH (test code = 4958) 26 NG/ML HEMOGLOBIN [id number] 00:00:00 Test Item Value Reference Range Interpretation Comments HEMOGLOBIN A1c (test code = 72178) 5.5 % HEMOGLOBIN [id number] 00:00:00 Test Item Value Reference Range Interpretation Comments HEMOGLOBIN A1c (test code = 84039) 5.5 % HEMOGLOBIN [id number] 00:00:00 Test Item Value Reference Range Interpretation Comments HEMOGLOBIN A1c (test code = 76142) 5.5 % LIPID [id number] 00:00:00 Test Item Value Reference Range Interpretation Comments CHOLESTEROL (test code = 2210) 207 MG/DL TRIGLYCERIDES (test code = 2232) 156 MG/DL HDL CHOLESTEROL (test code = 2220) 65 MG/DL CALC LDL CHOL (test code = 2237) 115 MG/DL RISK RATIO LDL/HDL (test code = 1.77 RATIO 2238) LIPID [id number] 00:00:00 Test Item Value Reference Range Interpretation Comments CHOLESTEROL (test code = 2210) 207 MG/DL TRIGLYCERIDES (test code = 2232) 156 MG/DL HDL CHOLESTEROL (test code = 2220) 65 MG/DL CALC LDL CHOL (test code = 2237) 115 MG/DL RISK RATIO LDL/HDL (test code = 1.77 RATIO 2238) COMPREHENSIVE METABOLIC [id number] 00:00:00 Test Item Value Reference Range Interpretation Comments GLUCOSE (test code = 2217) 91 MG/DL BUN (test code = 2208) 15 MG/DL CREATININE (test code = 2214) 0.99 MG/DL eGFR AMER. (test code 83 ML/MIN/1.73 = 79778) eGFR NON- AMER. (test 72 ML/MIN/1.73 code = 60390) CALC BUN/CREAT (test code = 15 RATIO [...] code = 2219) 130 U/L COMPREHENSIVE METABOLIC [id number] 00:00:00 Test Item Value Reference Range Interpretation Comments GLUCOSE (test code = 2217) 91 MG/DL BUN (test code = 2208) 15 MG/DL CREATININE (test code = 2214) 0.99 MG/DL eGFR AMER. (test code 83 ML/MIN/1.73 = 66539) eGFR NON- AMER. (test 72 ML/MIN/1.73 code = 18681) CALC BUN/CREAT (test code = 15 RATIO [...] CALC GLOBULIN (test code = 2.7 G/DL 2239) CALC A/G RATIO (test code = 1.6 RATIO 2233) BILIRUBIN, TOTAL (test code = 0.6 MG/DL 2206) ALKALINE PHOSPHATASE (test 119 U/L code = 220) AST (test code = 2218) 98 U/L ALT (test code = 2219) 130 U/L [id number] 00:00:00 Test Item Value Reference Range Interpretation Comments TSH, THIRD GENERATION (test code 7.820 UIU/ML = 2821) [id number] 00:00:00 Test Item Value Reference Range Interpretation Comments TSH, THIRD GENERATION (test code 7.820 UIU/ML = 2821) [id number] 00:00:00 Test Item Value Reference Range Interpretation Comments TSH, THIRD GENERATION (test code 7.820 UIU/ML = 2821) VITAMIN D, 25 [id number] 00:00:00 Test Item Value Reference Range Interpretation Comments VITAMIN D, 25 OH (test code = 4958) 26 NG/ML VITAMIN D, 25 [id number] 00:00:00 Test Item Value Reference Range Interpretation Comments VITAMIN D, 25 OH (test code = 4958) 26 NG/ML HEMOGLOBIN [id number] 00:00:00 Test Item Value Reference Range Interpretation Comments HEMOGLOBIN A1c (test code = 96325) 5.5 % HEMOGLOBIN [id number] 00:00:00 Test Item Value Reference Range Interpretation Comments HEMOGLOBIN A1c (test code = 06424) 5.5 % TSH, THIRD GENERATION [ADDED]2020-03-31 00:00:00 [...] 1.020 UIU/ML = 2821) VITAMIN D, 25 [id number] 00:00:00 Test Item Value Reference Range Interpretation Comments VITAMIN D, 25 OH (test code = 4958) 34 NG/ML VITAMIN D, 25 [id number] 00:00:00 Test Item Value Reference Range Interpretation Comments VITAMIN D, 25 OH (test code = 4958) 34 NG/ML VITAMIN D, 25 [id number] 00:00:00 Test Item Value Reference Range Interpretation Comments VITAMIN D, 25 OH (test code = 4958) 34 NG/ML VITAMIN D, 25 [id number] 00:00:00 Test Item Value Reference Range Interpretation Comments VITAMIN D, 25 OH (test code = 4958) 34 NG/ML COMPREHENSIVE METABOLIC [id number] 00:00:00 Test Item Value Reference Range Interpretation Comments GLUCOSE (test code = 2217) 96 MG/DL BUN (test code = 2208) 15 MG/DL CREATININE (test code = 2214) 1.22 MG/DL eGFR AMER. (test code 65 ML/MIN/1.73 = 33138) eGFR NON- AMER. (test 56 ML/MIN/1.73 code = 23780) CALC BUN/CREAT (test code = 12 RATIO 2235) SODIUM (test code = 2231) 142 MEQ/L POTASSIUM (test code = 2228) 4.5 MEQ/L CHLORIDE (test code = 2215) 105 MEQ/L CARBON DIOXIDE (test code = 23 MEQ/L 2206) CALCIUM (test code = 2209) 9.7 MG/DL PROTEIN, TOTAL (test code = 7.8 G/DL 222) ALBUMIN (test code = 2201) 4.7 G/DL CALC GLOBULIN (test code = 3.1 G/DL 2240) CALC A/G RATIO (test code = 1.5 RATIO 2234) BILIRUBIN, TOTAL (test code = 0.7 MG/DL 2206) ALKALINE PHOSPHATASE (test 84 U/L code = 2204) AST (test code = 2218) 20 U/L ALT (test code = 2219) 18 U/L COMPREHENSIVE METABOLIC [id number] 00:00:00 Test Item Value Reference Range Interpretation Comments GLUCOSE (test code = 2217) 96 MG/DL BUN (test code = 2208) 15 MG/DL CREATININE (test code = 2214) 1.22 MG/DL eGFR AMER. (test code 65 ML/MIN/1.73 = 19184) eGFR NON- AMER. (test 56 ML/MIN/1.73 code = 34638) CALC BUN/CREAT (test code = 12 RATIO [...] (test code = 2219) 18 U/L LIPID [id number] 00:00:00 Test Item Value Reference Range Interpretation Comments CHOLESTEROL (test code = 2210) 213 MG/DL TRIGLYCERIDES (test code = 2232) 145 MG/DL HDL CHOLESTEROL (test code = 2220) 46 MG/DL CALC LDL CHOL (test code = 2237) 140 MG/DL RISK RATIO LDL/HDL (test code = 3.04 RATIO 2238) LIPID [id number] 00:00:00 Test Item Value Reference Range Interpretation Comments CHOLESTEROL (test code = 2210) 213 MG/DL TRIGLYCERIDES (test code = 2232) 145 MG/DL HDL CHOLESTEROL (test code = 2220) 46 MG/DL CALC LDL CHOL (test code = 2237) 140 MG/DL RISK RATIO LDL/HDL (test code = 3.04 RATIO 2238) COMPREHENSIVE METABOLIC [id number] 00:00:00 Test Item Value Reference Range Interpretation Comments GLUCOSE (test code = 2217) 96 MG/DL BUN (test code = 2208) 15 MG/DL CREATININE (test code = 2214) 1.22 MG/DL eGFR AMER. (test code 65 ML/MIN/1.73 = 71852) eGFR NON- AMER. (test 56 ML/MIN/1.73 code = 78547) CALC BUN/CREAT (test code = 12 RATIO [...] code = 2219) 18 U/L COMPREHENSIVE METABOLIC [id number] 00:00:00 Test Item Value Reference Range Interpretation Comments GLUCOSE (test code = 2217) 96 MG/DL BUN (test code = 2208) 15 MG/DL CREATININE (test code = 2214) 1.22 MG/DL eGFR AMER. (test code 65 ML/MIN/1.73 = 11766) eGFR NON- AMER. (test 56 ML/MIN/1.73 code = 77805) CALC BUN/CREAT (test code = 12 RATIO 2235) SODIUM (test code = 2231) 142 MEQ/L POTASSIUM (test code = 2228) 4.5 MEQ/L CHLORIDE (test code = 2215) 105 MEQ/L CARBON DIOXIDE (test code = 23 MEQ/L 2205) CALCIUM (test code = 2209) 9.7 MG/DL PROTEIN, TOTAL (test code = 7.8 G/DL 2228) ALBUMIN (test code = 220) 4.7 G/DL CALC GLOBULIN (test code = 3.1 G/DL 2239) CALC A/G RATIO (test code = 1.5 RATIO 4) BILIRUBIN, TOTAL (test code = 0.7 MG/DL 2206) ALKALINE PHOSPHATASE (test 84 U/L code = 2204) AST (test code = 2218) 20 U/L ALT (test code = 2219) 18 U/L LIPID [id number] 00:00:00 Test Item Value Reference Range Interpretation Comments CHOLESTEROL (test code = 2210) 213 MG/DL TRIGLYCERIDES (test code = 2232) 145 MG/DL HDL CHOLESTEROL (test code = 2220) 46 MG/DL CALC LDL CHOL (test code = 2237) 140 MG/DL RISK RATIO LDL/HDL (test code = 3.04 RATIO 2238) LIPID [id number] 00:00:00 Test Item Value Reference Range Interpretation Comments CHOLESTEROL (test code = 2210) 213 MG/DL TRIGLYCERIDES (test code = 2232) 145 MG/DL HDL CHOLESTEROL (test code = 2220) 46 MG/DL CALC LDL CHOL (test code = 2237) 140 MG/DL RISK RATIO LDL/HDL (test code = 3.04 RATIO 2238) HEMOGLOBIN [id number] 00:00:00 Test Item Value Reference Range Interpretation Comments HEMOGLOBIN A1c (test code = 40321) 5.3 % HEMOGLOBIN [id number] 00:00:00 Test Item Value Reference Range Interpretation Comments HEMOGLOBIN A1c (test code = 79747) 5.3 % HEMOGLOBIN [id number] 00:00:00 Test Item Value Reference Range Interpretation Comments HEMOGLOBIN A1c (test code = 29212) 5.3 % HEMOGLOBIN [id number] 00:00:00 Test Item Value Reference Range Interpretation Comments HEMOGLOBIN A1c (test code = 12266) 5.3 % HEMOGLOBIN [id number] 00:00:00 Test Item Value Reference Range Interpretation Comments HEMOGLOBIN A1c (test code = 41102) 5.3 % HEMOGLOBIN [id number] 00:00:00 Test Item Value Reference Range Interpretation Comments HEMOGLOBIN A1c (test code = 18594) 5.3 % [id number] 00:00:00 Test Item Value Reference Range Interpretation Comments TSH, THIRD GENERATION (test code 1.950 UIU/ML = 2821) [id number] 00:00:00 Test Item Value Reference Range Interpretation Comments TSH, THIRD GENERATION (test code 1.950 UIU/ML = 2821) [id number] 00:00:00 Test Item Value Reference Range Interpretation Comments TSH, THIRD GENERATION (test code 1.950 UIU/ML = 2821) [id number] 00:00:00 Test Item Value Reference Range Interpretation Comments TSH, THIRD GENERATION (test code 1.950 UIU/ML = 2821) [id number] 00:00:00 Test Item Value Reference Range Interpretation Comments TSH, THIRD GENERATION (test code 1.950 UIU/ML = 2821) [id number] 00:00:00 Test Item Value Reference Range Interpretation Comments TSH, THIRD GENERATION (test code 1.950 UIU/ML = 2821) VITAMIN D, 25 [id number] 00:00:00 Test Item Value Reference Range Interpretation Comments VITAMIN D, 25 OH (test code = 4958) 48 NG/ML THYROID II PROFILE (T3U, T4, T7, TSH)[id number] 00:00:00 Test Item Value Reference Range Interpretation Comments T-UPTAKE (test code = 2817) 36.1 % THYROX. BIND. CAPAC. (test code 0.9 = 42653) T4 (THYROXINE) (test code = 11.7 UG/DL 2819) CORRECTED T4 (FTI) (test code = 13.0 UG/DL 2820) TSH, THIRD GENERATION (test code 0.075 UIU/ML = 2821) THYROID II PROFILE (T3U, T4, T7, TSH)2019-11-27 00:00:00 Test Item Value Reference Range Interpretation Comments T-UPTAKE (test code = 2817) 36.1 % THYROX. BIND. CAPAC. (test code 0.9 = 31948) T4 (THYROXINE) (test code = 11.7 UG/DL 2819) CORRECTED T4 (FTI) (test code = 13.0 UG/DL 2820) TSH, THIRD GENERATION (test code 0.075 UIU/ML = 2821) VITAMIN D, 25 [id number] 00:00:00 Test Item Value Reference Range Interpretation Comments VITAMIN D, 25 OH (test code = 4958) 48 NG/ML VITAMIN D, 25 [id number] 00:00:00 Test Item Value Reference Range Interpretation Comments VITAMIN D, 25 OH (test code = 4958) 48 NG/ML THYROID II PROFILE (T3U, T4, T7, TSH)2019-11-27 00:00:00 Test Item Value Reference Range Interpretation Comments T-UPTAKE (test code = 2817) 36.1 % THYROX. BIND. CAPAC. (test code 0.9 = 44086) T4 (THYROXINE) (test code = 11.7 UG/DL 2819) CORRECTED T4 (FTI) (test code = 13.0 UG/DL 2820) TSH, THIRD GENERATION (test code 0.075 UIU/ML = 2821) THYROID II PROFILE (T3U, T4, T7, TSH)2019-11-27 00:00:00 Test Item Value Reference Range Interpretation Comments T-UPTAKE (test code = 2817) 36.1 % THYROX. BIND. CAPAC. (test code 0.9 = 77737) T4 (THYROXINE) (test code = 11.7 UG/DL 2819) CORRECTED T4 (FTI) (test code = 13.0 UG/DL 2820) TSH, THIRD GENERATION (test code 0.075 UIU/ML = 2821) VITAMIN D, 25 [id number] 00:00:00 Test Item Value Reference Range Interpretation Comments VITAMIN D, 25 OH (test code = 4958) 48 NG/ML THYROID II PROFILE (T3U, T4, T7, TSH)2019-10-29 00:00:00 Test Item Value Reference Range Interpretation Comments T-UPTAKE (test code = 2817) 41.9 % THYROX. BIND. CAPAC. (test code 0.7 = 14199) T4 (THYROXINE) (test code = 13.5 UG/DL 2819) CORRECTED T4 (FTI) (test code = 19.3 UG/DL 2820) TSH, THIRD GENERATION (test code 0.467 UIU/ML = 2821) THYROID II PROFILE (T3U, T4, T7, TSH)2019-10-29 00:00:00 Test Item Value Reference Range Interpretation Comments T-UPTAKE (test code = 2817) 41.9 % THYROX. BIND. CAPAC. (test code 0.7 = 88008) T4 (THYROXINE) (test code = 13.5 UG/DL 2819) CORRECTED T4 (FTI) (test code = 19.3 UG/DL 2820) TSH, THIRD GENERATION (test code 0.467 UIU/ML = 2821) THYROID II PROFILE (T3U, T4, T7, TSH)2019-10-29 00:00:00 Test Item Value Reference Range Interpretation Comments T-UPTAKE (test code = 2816) 41.9 % THYROX. BIND. CAPAC. (test code 0.7 = 72819) T4 (THYROXINE) (test code = 13.5 UG/DL 2819) CORRECTED T4 (FTI) (test code = 19.3 UG/DL 2820) TSH, THIRD GENERATION (test code 0.467 UIU/ML = 2821) THYROID II PROFILE (T3U, T4, T7, TSH)2019-10-29 00:00:00 Test Item Value Reference Range Interpretation Comments T-UPTAKE (test code = 2816) 41.9 % THYROX. BIND. CAPAC. (test code 0.7 = 57847) T4 (THYROXINE) (test code = 13.5 UG/DL 2819) CORRECTED T4 (FTI) (test code = 19.3 UG/DL 2820) TSH, THIRD GENERATION (test code 0.467 UIU/ML = 2821) CBC W/AUTO [id number] 00:00:00 Test Item Value Reference Range Interpretation [...] code = 1015) 228 K/UL CBC W/AUTO [id number] 00:00:00 Test Item Value Reference Range Interpretation [...] code = 1015) 228 K/UL CBC W/AUTO [id number] 00:00:00 Test Item Value Reference Range Interpretation [...] (test code = 1015) 228 K/UL HEMOGLOBIN [id number] 00:00:00 Test Item Value Reference Range Interpretation Comments HEMOGLOBIN A1c (test code = 05313) 5.4 % HEMOGLOBIN [id number] 00:00:00 Test Item Value Reference Range Interpretation Comments HEMOGLOBIN A1c (test code = 03980) 5.4 % HEMOGLOBIN [id number] 00:00:00 Test Item Value Reference Range Interpretation Comments HEMOGLOBIN A1c (test code = 62041) 5.4 % LIPID [id number] 00:00:00 Test Item Value Reference Range Interpretation Comments CHOLESTEROL (test code = 2210) 184 MG/DL TRIGLYCERIDES (test code = 2232) 95 MG/DL HDL CHOLESTEROL (test code = 2220) 51 MG/DL CALC LDL CHOL (test code = 2237) 114 MG/DL RISK RATIO LDL/HDL (test code = 2.24 RATIO 2238) LIPID [id number] 00:00:00 Test Item Value Reference Range Interpretation Comments CHOLESTEROL (test code = 2210) 184 MG/DL TRIGLYCERIDES (test code = 2232) 95 MG/DL HDL CHOLESTEROL (test code = 2220) 51 MG/DL CALC LDL CHOL (test code = 2237) 114 MG/DL RISK RATIO LDL/HDL (test code = 2.24 RATIO 2238) [id number] 00:00:00 Test Item Value Reference Range Interpretation Comments TSH, THIRD GENERATION (test code 2.720 UIU/ML = 2821) [id number] 00:00:00 Test Item Value Reference Range Interpretation Comments TSH, THIRD GENERATION (test code 2.720 UIU/ML = 2821) [id number] 00:00:00 Test Item Value Reference Range Interpretation Comments TSH, THIRD GENERATION (test code 2.720 UIU/ML = 2821) VITAMIN B 12 AND FOLIC [id number] 00:00:00 Test Item Value Reference Range Interpretation Comments VITAMIN B-12 (test code = 2840) >2000 PG/ML FOLIC ACID (test code = 2695) 5.4 UG/L VITAMIN B 12 AND FOLIC [id number] 00:00:00 Test Item Value Reference Range Interpretation Comments VITAMIN B-12 (test code = 2840) >2000 PG/ML FOLIC ACID (test code = 2695) 5.4 UG/L VITAMIN D, 25 [id number] 00:00:00 Test Item Value Reference Range Interpretation Comments VITAMIN D, 25 OH (test code = 4958) 24 NG/ML VITAMIN D, 25 [id number] 00:00:00 Test Item Value Reference Range Interpretation Comments VITAMIN D, 25 OH (test code = 4958) 24 NG/ML COMPREHENSIVE METABOLIC [id number] 00:00:00 Test Item Value Reference Range Interpretation Comments GLUCOSE (test code = 2217) 93 MG/DL BUN (test code = 2208) 12 MG/DL CREATININE (test code = 2214) 1.12 MG/DL eGFR AMER. (test code 73 ML/MIN/1.73 = 37721) eGFR NON- AMER. (test 63 ML/MIN/1.73 code = 23584) CALC BUN/CREAT (test code = 11 RATIO 2235) SODIUM (test code = 2231) 141 MEQ/L POTASSIUM (test code = 2228) 4.3 MEQ/L CHLORIDE (test code = 2215) 102 MEQ/L CARBON DIOXIDE (test code = 24 MEQ/L 6) CALCIUM (test code = 2209) 9.4 MG/DL [...] code = 2219) 14 U/L COMPREHENSIVE METABOLIC [id number] 00:00:00 Test Item Value Reference Range Interpretation Comments GLUCOSE (test code = 2217) 93 MG/DL BUN (test code = 2208) 12 MG/DL CREATININE (test code = 2214) 1.12 MG/DL eGFR AMER. (test code 73 ML/MIN/1.73 = 47947) eGFR NON- AMER. (test 63 ML/MIN/1.73 code = 69619) CALC BUN/CREAT (test code = 11 RATIO [...] CALC GLOBULIN (test code = 2.7 G/DL 2239) CALC A/G RATIO (test code = 1.7 RATIO 2233) BILIRUBIN, TOTAL (test code = 0.7 MG/DL 2206) ALKALINE PHOSPHATASE (test 77 U/L code = 2204) AST (test code = 2218) 18 U/L ALT (test code = 2219) 14 U/L CBC W/AUTO [id number] 00:00:00 Test Item Value Reference Range Interpretation [...] code = 1015) 228 K/UL CBC W/AUTO [id number] 00:00:00 Test Item Value Reference Range Interpretation [...] code = 1015) 228 K/UL CBC W/AUTO [id number] 00:00:00 Test Item Value Reference Range Interpretation [...] (test code = 1015) 228 K/UL HEMOGLOBIN [id number] 00:00:00 Test Item Value Reference Range Interpretation Comments HEMOGLOBIN A1c (test code = 86104) 5.4 % HEMOGLOBIN [id number] 00:00:00 Test Item Value Reference Range Interpretation Comments HEMOGLOBIN A1c (test code = 33533) 5.4 % HEMOGLOBIN [id number] 00:00:00 Test Item Value Reference Range Interpretation Comments HEMOGLOBIN A1c (test code = 21203) 5.4 % LIPID [id number] 00:00:00 Test Item Value Reference Range Interpretation Comments CHOLESTEROL (test code = 2210) 184 MG/DL TRIGLYCERIDES (test code = 2232) 95 MG/DL HDL CHOLESTEROL (test code = 2220) 51 MG/DL CALC LDL CHOL (test code = 2237) 114 MG/DL RISK RATIO LDL/HDL (test code = 2.24 RATIO 2238) LIPID [id number] 00:00:00 Test Item Value Reference Range Interpretation Comments CHOLESTEROL (test code = 2210) 184 MG/DL TRIGLYCERIDES (test code = 2232) 95 MG/DL HDL CHOLESTEROL (test code = 2220) 51 MG/DL CALC LDL CHOL (test code = 2237) 114 MG/DL RISK RATIO LDL/HDL (test code = 2.24 RATIO 2238) [id number] 00:00:00 Test Item Value Reference Range Interpretation Comments TSH, THIRD GENERATION (test code 2.720 UIU/ML = 2821) [id number] 00:00:00 Test Item Value Reference Range Interpretation Comments TSH, THIRD GENERATION (test code 2.720 UIU/ML = 2821) [id number] 00:00:00 Test Item Value Reference Range Interpretation Comments TSH, THIRD GENERATION (test code 2.720 UIU/ML = 2821) VITAMIN B 12 AND FOLIC [id number] 00:00:00 Test Item Value Reference Range Interpretation Comments VITAMIN B-12 (test code = 2840) >2000 PG/ML FOLIC ACID (test code = 2695) 5.4 UG/L VITAMIN B 12 AND FOLIC [id number] 00:00:00 Test Item Value Reference Range Interpretation Comments VITAMIN B-12 (test code = 2840) >2000 PG/ML FOLIC ACID (test code = 2695) 5.4 UG/L VITAMIN D, 25 [id number] 00:00:00 Test Item Value Reference Range Interpretation Comments VITAMIN D, 25 OH (test code = 4958) 24 NG/ML VITAMIN D, 25 [id number] 00:00:00 Test Item Value Reference Range Interpretation Comments VITAMIN D, 25 OH (test code = 4958) 24 NG/ML COMPREHENSIVE METABOLIC [id number] 00:00:00 Test Item Value Reference Range Interpretation Comments GLUCOSE (test code = 2217) 93 MG/DL BUN (test code = 2208) 12 MG/DL CREATININE (test code = 2214) 1.12 MG/DL eGFR AMER. (test code 73 ML/MIN/1.73 = 23549) eGFR NON- AMER. (test 63 ML/MIN/1.73 code = 92121) CALC BUN/CREAT (test code = 11 RATIO [...] code = 2219) 14 U/L COMPREHENSIVE METABOLIC [id number] 00:00:00 Test Item Value Reference Range Interpretation Comments GLUCOSE (test code = 2217) 93 MG/DL BUN (test code = 2208) 12 MG/DL CREATININE (test code = 2214) 1.12 MG/DL eGFR AMER. (test code 73 ML/MIN/1.73 = 35887) eGFR NON- AMER. (test 63 ML/MIN/1.73 code = 60467) CALC BUN/CREAT (test code = 11 RATIO [...] BILIRUBIN, TOTAL (test code = 0.7 MG/DL 2207) ALKALINE PHOSPHATASE (test 77 U/L code = 2204) AST (test code = 2218) 18 U/L ALT (test code = 2219) 14 U/L LIPID [id number] 00:00:00 Test Item Value Reference Range Interpretation Comments CHOLESTEROL (test code = 2210) 206 MG/DL TRIGLYCERIDES (test code = 2232) 94 MG/DL HDL CHOLESTEROL (test code = 2220) 61 MG/DL CALC LDL CHOL (test code = 2237) 126 MG/DL RISK RATIO LDL/HDL (test code = 2.07 RATIO 2238) LIPID [id number] 00:00:00 Test Item Value Reference Range Interpretation Comments CHOLESTEROL (test code = 2210) 206 MG/DL TRIGLYCERIDES (test code = 2232) 94 MG/DL HDL CHOLESTEROL (test code = 2220) 61 MG/DL CALC LDL CHOL (test code = 2237) 126 MG/DL RISK RATIO LDL/HDL (test code = 2.07 RATIO 2238) CBC W/AUTO [id number] 00:00:00 Test Item Value Reference Range Interpretation [...] code = 1015) 300 K/UL CBC W/AUTO [id number] 00:00:00 Test Item Value Reference Range Interpretation [...] code = 1015) 300 K/UL CBC W/AUTO [id number] 00:00:00 Test Item Value Reference Range Interpretation [...] (test code = 1015) 300 K/UL HEMOGLOBIN [id number] 00:00:00 Test Item Value Reference Range Interpretation Comments HEMOGLOBIN A1c (test code = 12203) 5.7 % HEMOGLOBIN [id number] 00:00:00 Test Item Value Reference Range Interpretation Comments HEMOGLOBIN A1c (test code = 23719) 5.7 % HEMOGLOBIN [id number] 00:00:00 Test Item Value Reference Range Interpretation Comments HEMOGLOBIN A1c (test code = 92032) 5.7 % [id number] 00:00:00 Test Item Value Reference Range Interpretation Comments TSH (test code = 2821) 1.3 UIU/ML [id number] 00:00:00 Test Item Value Reference Range Interpretation Comments TSH (test code = 2821) 1.3 UIU/ML [id number] 00:00:00 Test Item Value Reference Range Interpretation Comments TSH (test code = 2821) 1.3 UIU/ML COMPREHENSIVE METABOLIC [id number] 00:00:00 Test Item Value Reference Range Interpretation Comments GLUCOSE (test code = 2217) 87 MG/DL BUN (test code = 2208) 19 MG/DL CREATININE (test code = 2214) 1.13 MG/DL eGFR AMER. (test code 73 ML/MIN/1.73 = 97161) eGFR NON- AMER. (test 63 ML/MIN/1.73 code = 95788) CALC BUN/CREAT (test code = 17 RATIO 2235) SODIUM (test code = 2231) 139 MEQ/L POTASSIUM (test code = 2228) 4.1 MEQ/L CHLORIDE (test code = 2215) 99 MEQ/L CARBON DIOXIDE (test code = 23 MEQ/L 2206) CALCIUM (test code = 2209) 10.1 MG/DL PROTEIN, TOTAL (test code = 8.3 G/DL 222) ALBUMIN (test code = 2201) 5.3 G/DL CALC GLOBULIN (test code = 3.0 G/DL 2240) CALC A/G RATIO (test code = 1.8 RATIO 2234) BILIRUBIN, TOTAL (test code = 0.7 MG/DL 2206) ALKALINE PHOSPHATASE (test 69 U/L code = 2204) AST (test code = 2218) 18 U/L ALT (test code = 2219) 10 U/L COMPREHENSIVE METABOLIC [id number] 00:00:00 Test Item Value Reference Range Interpretation Comments GLUCOSE (test code = 2217) 87 MG/DL BUN (test code = 2208) 19 MG/DL CREATININE (test code = 2214) 1.13 MG/DL eGFR AMER. (test code 73 ML/MIN/1.73 = 88828) eGFR NON- AMER. (test 63 ML/MIN/1.73 code = 34896) CALC BUN/CREAT (test code = 17 RATIO [...] BILIRUBIN, TOTAL (test code = 0.7 MG/DL 7) ALKALINE PHOSPHATASE (test 69 U/L code = 2204) AST (test code = 2218) 18 U/L ALT (test code = 2219) 10 U/L LIPID [id number] 00:00:00 Test Item Value Reference Range Interpretation Comments CHOLESTEROL (test code = 2210) 206 MG/DL TRIGLYCERIDES (test code = 2232) 94 MG/DL HDL CHOLESTEROL (test code = 2220) 61 MG/DL CALC LDL CHOL (test code = 2237) 126 MG/DL RISK RATIO LDL/HDL (test code = 2.07 RATIO 2238) LIPID [id number] 00:00:00 Test Item Value Reference Range Interpretation Comments CHOLESTEROL (test code = 2210) 206 MG/DL TRIGLYCERIDES (test code = 2232) 94 MG/DL HDL CHOLESTEROL (test code = 2220) 61 MG/DL CALC LDL CHOL (test code = 2237) 126 MG/DL RISK RATIO LDL/HDL (test code = 2.07 RATIO 2238) CBC W/AUTO [id number] 00:00:00 Test Item Value Reference Range Interpretation [...] code = 1015) 300 K/UL CBC W/AUTO [id number] 00:00:00 Test Item Value Reference Range Interpretation [...] code = 1015) 300 K/UL CBC W/AUTO [id number] 00:00:00 Test Item Value Reference Range Interpretation [...] (test code = 1015) 300 K/UL HEMOGLOBIN [id number] 00:00:00 Test Item Value Reference Range Interpretation Comments HEMOGLOBIN A1c (test code = 15615) 5.7 % HEMOGLOBIN [id number] 00:00:00 Test Item Value Reference Range Interpretation Comments HEMOGLOBIN A1c (test code = 46431) 5.7 % HEMOGLOBIN [id number] 00:00:00 Test Item Value Reference Range Interpretation Comments HEMOGLOBIN A1c (test code = 83069) 5.7 % [id number] 00:00:00 Test Item Value Reference Range Interpretation Comments TSH (test code = 2821) 1.3 UIU/ML [id number] 00:00:00 Test Item Value Reference Range Interpretation Comments TSH (test code = 2821) 1.3 UIU/ML [id number] 00:00:00 Test Item Value Reference Range Interpretation Comments TSH (test code = 2821) 1.3 UIU/ML COMPREHENSIVE METABOLIC [id number] 00:00:00 Test Item Value Reference Range Interpretation Comments GLUCOSE (test code = 2217) 87 MG/DL BUN (test code = 2208) 19 MG/DL CREATININE (test code = 2214) 1.13 MG/DL eGFR AMER. (test code 73 ML/MIN/1.73 = 20649) eGFR NON- AMER. (test 63 ML/MIN/1.73 code = 84735) CALC BUN/CREAT (test code = 17 RATIO 2235) SODIUM (test code = 2231) 139 MEQ/L POTASSIUM (test code = 2228) 4.1 MEQ/L CHLORIDE (test code = 2215) 99 MEQ/L CARBON DIOXIDE (test code = 23 MEQ/L 2206) CALCIUM (test code = 2209) 10.1 MG/DL [...] code = 2219) 10 U/L COMPREHENSIVE METABOLIC [id number] 00:00:00 Test Item Value Reference Range Interpretation Comments GLUCOSE (test code = 2217) 87 MG/DL BUN (test code = 2208) 19 MG/DL CREATININE (test code = 2214) 1.13 MG/DL eGFR AMER. (test code 73 ML/MIN/1.73 = 45740) eGFR NON- AMER. (test 63 ML/MIN/1.73 code = 85373) CALC BUN/CREAT (test code = 17 RATIO [...] code = 2219) 10 U/L CBC W/AUTO [id number] 00:00:00 Test Item Value Reference Range Interpretation [...] COUNT (test code = 1015) 267 K/UL [id number] 00:00:00 Test Item Value Reference Range Interpretation Comments TSH (test code = 2821) 3.6 UIU/ML [id number] 00:00:00 Test Item Value Reference Range Interpretation Comments TSH (test code = 2821) 3.6 UIU/ML [id number] 00:00:00 Test Item Value Reference Range Interpretation Comments TSH (test code = 2821) 3.6 UIU/ML LIPID [id number] 00:00:00 Test Item Value Reference Range Interpretation Comments CHOLESTEROL (test code = 2210) 195 MG/DL TRIGLYCERIDES (test code = 2232) 98 MG/DL HDL CHOLESTEROL (test code = 2220) 50 MG/DL CALCULATED LDL CHOL (test code = 125 MG/DL 2236) RISK RATIO LDL/HDL (test code = 2.51 RATIO 2238) LIPID [id number] 00:00:00 Test Item Value Reference Range Interpretation Comments CHOLESTEROL (test code = 2210) 195 MG/DL TRIGLYCERIDES (test code = 2232) 98 MG/DL HDL CHOLESTEROL (test code = 2220) 50 MG/DL CALCULATED LDL CHOL (test code = 125 MG/DL 2236) RISK RATIO LDL/HDL (test code = 2.51 RATIO 2238) COMPREHENSIVE METABOLIC [id number] 00:00:00 Test Item Value Reference Range Interpretation Comments GLUCOSE (test code = 2217) 86 MG/DL BUN (test code = 2208) 13 MG/DL CREATININE (test code = 2214) 1.1 MG/DL eGFR AMER. (test code 69 ML/MIN/1.73 = 78828) eGFR NON- AMER. (test 57 ML/MIN/1.73 code = 07803) CALCULATED BUN/CREAT (test 12 RATIO code = 2235) SODIUM (test code = 2231) 140 MEQ/L POTASSIUM (test code = 2228) 4.4 MEQ/L CHLORIDE (test code = 2215) 100 MEQ/L CARBON DIOXIDE (test code = 28 MEQ/L 220) CALCIUM (test code = 2209) [...] code = 2219) 8 U/L COMPREHENSIVE METABOLIC [id number] 00:00:00 Test Item Value Reference Range Interpretation Comments GLUCOSE (test code = 2217) 86 MG/DL BUN (test code = 2208) 13 MG/DL CREATININE (test code = 2214) 1.1 MG/DL eGFR AMER. (test code 69 ML/MIN/1.73 = 23617) eGFR NON- AMER. (test 57 ML/MIN/1.73 code = 87189) CALCULATED BUN/CREAT (test 12 RATIO code = 2235) SODIUM (test code = 2231) 140 MEQ/L POTASSIUM (test code = 2228) 4.4 MEQ/L CHLORIDE (test code = 2215) 100 MEQ/L CARBON DIOXIDE (test code = 28 MEQ/L 220) CALCIUM (test code = 2209) 9.5 MG/DL PROTEIN, TOTAL (test code = 7.4 G/DL 2228) ALBUMIN (test code = 2201) 4.4 G/DL CALCULATED GLOBULIN (test code 3.0 G/DL = 2240) CALCULATED A/G RATIO (test 1.5 RATIO code = 2234) BILIRUBIN, TOTAL (test code = 0.6 MG/DL 7) ALKALINE PHOSPHATASE (test 66 U/L code = 2204) SGOT (AST) (test code = 2218) 13 U/L SGPT (ALT) (test code = 2219) 8 U/L CBC W/AUTO [id number] 00:00:00 Test Item Value Reference Range Interpretation [...] code = 1015) 267 K/UL CBC W/AUTO [id number] 00:00:00 Test Item Value Reference Range Interpretation [...] code = 1015) 267 K/UL CBC W/AUTO [id number] 00:00:00 Test Item Value Reference Range Interpretation [...] COUNT (test code = 1015) 267 K/UL [id number] 00:00:00 Test Item Value Reference Range Interpretation Comments TSH (test code = 2821) 3.6 UIU/ML [id number] 00:00:00 Test Item Value Reference Range Interpretation Comments TSH (test code = 2821) 3.6 UIU/ML [id number] 00:00:00 Test Item Value Reference Range Interpretation Comments TSH (test code = 2821) 3.6 UIU/ML LIPID [id number] 00:00:00 Test Item Value Reference Range Interpretation Comments CHOLESTEROL (test code = 2210) 195 MG/DL TRIGLYCERIDES (test code = 2232) 98 MG/DL HDL CHOLESTEROL (test code = 2220) 50 MG/DL CALCULATED LDL CHOL (test code = 125 MG/DL 2237) RISK RATIO LDL/HDL (test code = 2.51 RATIO 2238) LIPID [id number] 00:00:00 Test Item Value Reference Range Interpretation Comments CHOLESTEROL (test code = 2210) 195 MG/DL TRIGLYCERIDES (test code = 2232) 98 MG/DL HDL CHOLESTEROL (test code = 2220) 50 MG/DL CALCULATED LDL CHOL (test code = 125 MG/DL 2237) RISK RATIO LDL/HDL (test code = 2.51 RATIO 2238) COMPREHENSIVE METABOLIC [id number] 00:00:00 Test Item Value Reference Range Interpretation Comments GLUCOSE (test code = 2217) 86 MG/DL BUN (test code = 2208) 13 MG/DL CREATININE (test code = 2214) 1.1 MG/DL eGFR AMER. (test code 69 ML/MIN/1.73 = 41295) eGFR NON- AMER. (test 57 ML/MIN/1.73 code = 43846) CALCULATED BUN/CREAT (test 12 RATIO code = [...] code = 2219) 8 U/L COMPREHENSIVE METABOLIC [id number] 00:00:00 Test Item Value Reference Range Interpretation Comments GLUCOSE (test code = 2217) 86 MG/DL BUN (test code = 2208) 13 MG/DL CREATININE (test code = 2214) 1.1 MG/DL eGFR AMER. (test code 69 ML/MIN/1.73 = 40396) eGFR NON- AMER. (test 57 ML/MIN/1.73 code = 19522) CALCULATED BUN/CREAT (test 12 RATIO code = 2235) SODIUM (test code = 2231) 140 MEQ/L POTASSIUM (test code = 2228) 4.4 MEQ/L CHLORIDE (test code = 2215) 100 MEQ/L CARBON DIOXIDE (test code = 28 MEQ/L 220) CALCIUM (test code = 2209) [...] code = 2219) 8 U/L CBC W/AUTO [id number] 00:00:00 Test Item Value Reference Range Interpretation [...] code = 1015) 267 K/UL CBC W/AUTO [id number] 00:00:00 Test Item Value Reference Range Interpretation [...]
[2023-06-08 14:00] LABS: Absolute Lymphocytes (CBC) 2.6 K/uL (0.7-4.9); Hematocrit 41.5 % (36.0-45.0); Lymphocytes % 31.8 % (15.3-44.8); MCV 96.1 fL (80-100); MPV 8.1 fL (7.6-11.3); Platelets 263 thou/uL (152-406); RBC Red Blood Cell Count 4.32 M/uL (3.86-4.86)
[2023-06-08] MEDS ORDERED: NA CHLORIDE 0.9% 1,000 ML ONE (14:04)
[2023-06-08] MEDS ORDERED: KETOROLAC 30 MG/ML INJ ONE (14:04)
[2023-06-08 14:16] LABS: Albumin 3.7 g/dL (3.4-5.0); Bilirubin Total 0.5 mg/dL (0.2-1.0); Potassium 3.6 mEq/L (3.5-5.1); Protein, Total 8.2 g/dL (6.4-8.2)
[2023-06-08 14:39] LABS: Specific Gravity 1.009 (1.005-1.030); Urine Bacteria None Seen /HPF (<20); Urine Bilirubin NEGATIVE (Negative); Urine Blood Negative (Negative); Urine Clarity Turbid (Clear); Urine Color Colorless (Yellow); Urine Glucose NEGATIVE (Negative); Urine Mucus Slight /HPF (None Seen); Urine Protein TRACE (Negative); Urine RBC None Seen /HPF (None Seen); Urine Urobilinogen Normal (Normal); Urine pH 5.5 (5.0-7.0)
--- NOTE | 2023-06-08 14:40 | RAD REPORT ---
EXAM DESCRIPTION: RAD - Knee Right 3 View - 06/08/2023 2:22 pm CLINICAL HISTORY: PAIN COMPARISON: <Comparisons> FINDINGS: No fracture, dislocation or joint effusion.
--- NOTE | 2023-06-08 14:50 | ER ---
Nurse's Notes [facility] Name: Lisbet Bo Age: 42 yrs Sex: Female : 1980 Arrival Date: 06/08/2023 Time: 13:19 Bed 5 Private MD: Diagnosis: Dysuria Presentation: 06/08 13:39 Chief complaint: Patient states: Burning with urination and lower abdominal pain for rs5 one week, right knee pain and numbness of upper and lower extremities bilat for two weeks. Coronavirus screen: chills. Ebola Screen: No symptoms or risks identified at this time. Initial Sepsis Screen: Does the patient meet any 2 criteria? No. Patient's initial sepsis screen is negative. Does the patient have a suspected source of infection? No. Patient's initial sepsis screen is negative. Risk Assessment: Do you want to hurt yourself or someone else? Patient reports no desire to harm self or others. Onset of symptoms was June 08, 2023 at 08:00. 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 - Social history:: Smoking status: Patient denies any tobacco usage or history of. Screenin:25 [place] ED Fall Risk Assessment (Adult) History of falling in the last 3 months, aa5 including since admission No falls in past 3 months (0 pts) Confusion or Disorientation No (0 pts) Intoxicated or Sedated No (0 pts) Impaired Gait No (0 pts) Mobility Assist Device Used No (0 pt) Altered Elimination No (0 pt) Score/Fall Risk Level 0 - 2 = Low Risk Oriented to surroundings, Maintained a safe environment. Abuse screen: Denies threats or abuse. Nutritional screening: No deficits noted. Tuberculosis screening: No symptoms or risk factors identified. Assessment: 13:25 General: Appears in no apparent distress. uncomfortable, Behavior is calm, cooperative. aa5 Pain: Complains of pain in lower abdominal pain bilat Pain does not radiate. Pain currently is 7 out of 10 on a pain scale. Quality of pain is described as aching, Pain began one week ago Is continuous. Neuro: Level of Consciousness is awake, alert, obeys commands, Oriented to person, place, time, situation. Cardiovascular: Heart tones S1 S2 present Rhythm is regular. Respiratory: Airway is patent Respiratory effort is even, unlabored, Respiratory pattern is regular, symmetrical, Breath sounds are clear bilaterally. GI: Bowel sounds present X 4 quads. Abd is soft and non tender X 4 quads. Reports lower abdominal pain. : Reports burning with urination, urinary frequency, since one week ago. EENT: No signs and/or symptoms were reported regarding the EENT system. Derm: Skin is intact, Skin is dry, Skin is normal, Skin temperature is warm. Musculoskeletal: Range of motion: intact in all extremities, Reports pain in right knee since 2 weeks ago. 14:25 Reassessment: Patient and/or family updated on plan of care and expected duration. Pain aa5 level reassessed. Patient is alert, oriented x 3, equal unlabored respirations, skin warm/dry/pink. Pain: Complains of pain in lower abdominal pain bilat Pain currently is 2 out of 10 on a pain scale. Quality of pain is described as aching, Is continuous. 15:01 Reassessment: Patient and/or family updated on plan of care and expected duration. Pain aa5 level reassessed. Patient is alert, oriented x 3, equal unlabored respirations, skin warm/dry/pink. Vital Signs: 13:34 BP 128 / 80; Pulse 94; Resp 18; Temp 97.9(O); Pulse Ox 99% ; aa5 13:39 BP 128 / 80; Pulse 80; Resp 18; Pulse Ox 99% on R/A; rs5 14:25 BP 116 / 70; Pulse 81; Resp 17; Pulse Ox 99% on R/A; aa5 ED Course: 13:22 Patient arrived in ED. mr 13:23 [facility] 13:23 Juan Mcfadden MD is Attending Physician. [facility] 13:25 Patient has correct armband on for positive identification. Placed in gown. Bed in low aa5 position. Call light in reach. Side rails up X2. 13:38 Terry Licona, RN is Primary Nurse. rs5 13:41 Triage completed. rs5 13:49 Arm band placed on. iw 13:49 Initial lab(s) drawn, by me, sent to lab. Inserted saline lock: 22 gauge in right iw antecubital area, using aseptic technique. Blood collected. 14:24 XRAY Knee RIGHT 3 view In Process Unspecified. EDMS 15:13 No provider procedures requiring assistance completed. IV discontinued, intact, aa5 bleeding controlled, No redness/swelling at site. Pressure dressing applied. Administered Medications: 14:00 Drug: NS 0.9% IV 1000 ml IV at 1 bolus Per protocol; 1000 mL bolus Route: IV; Rate: 1 rs5 bolus; Site: right antecubital; 14:25 Follow up: Response: No adverse reaction aa5 14:00 Drug: TORadol - Ketorolac IVP 15 mg IVP once Route: IVP; Site: right antecubital; rs5 14:25 Follow up: Response: No adverse reaction; Pain is decreased aa5 Medication: 15:13 VIS not applicable for this client. aa5 Outcome: 14:49 Discharge ordered by . [facility] 15:13 Discharged to home ambulatory, aa5 15:13 Condition: stable 15:13 Discharge instructions given to patient, Instructed on discharge instructions, follow up and referral plans. medication usage, Demonstrated understanding of instructions, follow-up care, medications, Prescriptions given X 1, 15:14 Patient left the ED. aa5 Signatures: Dispatcher [employer] EDAL Jennifer Jean, Reg Reg mr Yaa Matias RN RN Inna Conroy RN RN aa5 Maame Gomes, ENVIRONMENTAL ENGINEERING INTERN ENVIRONMENTAL ENGINEERING INTERN [facility] Terry Licona, RN RN rs5 Corrections: (The following items were deleted from the chart) 13:43 13:41 PMHx: UTI's (Colitis); rs5 rs5 15:13 13:25 Musculoskeletal: Range of motion: intact in all extremities, aa5 aa5
--- NOTE | 2023-06-08 14:50 | EDPHYS ---
Physician Documentation [facility] Name: Lisbet Bo Age: 42 yrs Sex: Female : 1980 Arrival Date: 06/08/2023 Time: 13:19 Bed 5 Private MD: KENIA Physician Juan Mcfadden HPI: 06/08 13:39 This 42 yrs old Female presents to ER via Ambulatory with complaints of jh7 Urinary Problem, Numbness Of Hand. 13:39 Onset: The symptoms/episode began/occurred 1 week(s) ago. Associated signs and jh7 symptoms: Pertinent positives: abdominal pain, dysuria, Pertinent negatives: chest pain, fever, shortness of breath, vomiting. 42-year-old female reports lower abdominal pain with bloating and dysuria for the past week. Reports that she has a history of a prolapsed bladder and that she has been more prone to infections since then. Also reports intermittent numbness of the hands and feet for the past 2 weeks with right knee pain and swelling. Denies any injury. Denies any other symptoms.. 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 - Social history:: Smoking status: Patient denies any tobacco usage or history of. ROS: 13:39 Constitutional: Negative for fever, chills, and weight loss, Eyes: Negative for injury, jh7 pain, redness, and discharge, Neck: Negative for injury, pain, and swelling, Cardiovascular: Negative for chest pain, palpitations, and edema, Respiratory: Negative for shortness of breath, cough, wheezing, and pleuritic chest pain, Back: Negative for injury and pain, MS/Extremity: Negative for injury and deformity, Skin: Negative for injury, rash, and discoloration, 13:39 Abdomen/GI: Positive for abdominal pain, Negative for nausea, vomiting, and diarrhea, constipation, 13:39 : Positive for urinary symptoms, burning with urination, 13:39 Neuro: Positive for numbness, 13:39 All other systems are negative, Exam: 13:39 Constitutional: This is a well developed, well nourished patient who is awake, alert, jh7 and in no acute distress. Head/Face: Normocephalic, atraumatic. Neck: Trachea midline, no thyromegaly or masses palpated, and no cervical lymphadenopathy. Supple, full range of motion without nuchal rigidity, or vertebral point tenderness. No Meningismus. Cardiovascular: Regular rate and rhythm with a normal S1 and S2. No gallops, murmurs, or rubs. Normal PMI, no JVD. No pulse deficits. Respiratory: Lungs have equal breath sounds bilaterally, clear to auscultation and percussion. No rales, rhonchi or wheezes noted. No increased work of breathing, no retractions or nasal flaring. Abdomen/GI: Soft, non-tender, with normal bowel sounds. No distension or tympany. No guarding or rebound. No evidence of tenderness throughout. Skin: Warm, dry with normal turgor. Normal color with no rashes, no lesions, and no evidence of cellulitis. MS/ Extremity: Pulses equal, no cyanosis. Neurovascular intact. Full, normal range of motion. Neuro: Awake and alert, GCS 15, oriented to person, place, time, and situation. Motor strength 5/5 in all extremities. Sensory grossly intact. Normal gait. Vital Signs: 13:34 BP 128 / 80; Pulse 94; Resp 18; Temp 97.9(O); Pulse Ox 99% ; aa5 13:39 BP 128 / 80; Pulse 80; Resp 18; Pulse Ox 99% on R/A; rs5 14:25 BP 116 / 70; Pulse 81; Resp 17; Pulse Ox 99% on R/A; aa5 MDM: 13:23 Patient medically screened. jh7 14:45 Differential diagnosis: UTI, Pyelonephritis, prolapsed bladder. Data reviewed: vital [facility] signs, nurses notes, lab test result(s). I considered the following discharge prescriptions or medication management in the emergency department Medications were administered in the Emergency Department. See MAR. Care significantly affected by the following chronic conditions: Hypertension. Counseling: I had a detailed discussion with the patient and/or guardian regarding the historical points, exam findings, and any diagnostic results supporting the discharge/admit diagnosis, the need for outpatient follow up, a urologist, to return to the emergency department if symptoms worsen or persist or if there are any questions or concerns that arise at home. Response to treatment: the patient's symptoms have mildly improved after treatment. Special discussion: Advised the patient to follow-up with her urologist as scheduled. Will treat for UTI based on clinical presentation and will notify the patient with urine culture results. If she develops any new concerning symptoms, she may return to the ER for further eval.. 06/08 13:34 Order name: CBC with Diff; Complete Time: 14:08 [facility] 06/08 13:34 Order name: CMP; Complete Time: 14:41 [facility] 06/08 13:34 Order name: Lipase; Complete Time: 14:41 [facility] 06/08 13:34 Order name: Urinalysis w/ reflexes; Complete Time: 14:41 [facility] 06/08 13:34 Order name: XRAY Knee RIGHT 3 view; Complete Time: 14:41 [facility] 06/08 13:34 Order name: IV Saline Lock; Complete Time: 13:49 [facility] 06/08 13:34 Order name: Labs collected and sent; Complete Time: 13:49 [facility] Administered Medications: 14:00 Drug: NS 0.9% IV 1000 ml IV at 1 bolus Per protocol; 1000 mL bolus Route: IV; Rate: 1 rs5 bolus; Site: right antecubital; 14:25 Follow up: Response: No adverse reaction aa5 14:00 Drug: TORadol - Ketorolac IVP 15 mg IVP once Route: IVP; Site: right antecubital; rs5 14:25 Follow up: Response: No adverse reaction; Pain is decreased aa5 Disposition Summary: 06/08/23 14:49 Discharge Ordered Notes: Location: Home [facility] Problem: new [facility] Symptoms: are unchanged [facility] Condition: Stable [facility] Diagnosis - Dysuria [facility] Followup: [facility] - With: Private Physician - When: 2 - 3 days - Reason: Recheck today's complaints Discharge Instructions: - Discharge Summary Sheet [facility] - Dysuria [facility] - Pelvic Organ Prolapse [facility] Forms: - Medication Reconciliation Form [facility] - Thank You Letter [facility] - Antibiotic Education [facility] - Patient Portal Instructions [facility] - Leadership Thank You Letter [facility] Prescriptions: - cefdinir 300 mg Oral capsule - take 1 capsule ORAL route 2 times per day for 7 days; 14 capsule; Refills: 0, jh7 Product Selection Permitted Signatures: Dispatcher [employer] EDMaame Servin, SHIP LABORER SHIP LABORER 7 Terry Licona RN RN rs5 Inna Conroy RN aa5 Corrections: (The following items were deleted from the chart) 13:43 13:41 PMHx: UTI's (Colitis); rs5 rs5 14:55 13:39 42-year-old female reports lower abdominal pain with bloating and dysuria for the jh7 past week. Reports that she has a history of a prolapsed uterus and that she has been more prone to infections since then. Also reports intermittent numbness of the hands and feet for the past 2 weeks with right knee pain and swelling. Denies any injury. Denies any other symptoms.. jh7
[2023-06-08 15:35] VITALS: TEMP 97.9; O2SAT 99
[2023-06-08 15:42] VITALS: BP 116/70
== END 2023-06-08 15:14 | disposition home or self-care (01) ==
LOC: ER 13:19
DX: R30.0 Dysuria (principal); R10.30 Lower abdominal pain, unspecified
CPT/HCPCS: 36415; 80053; 81001; 83690; 85025; 96374; 99284; J7030

== ENCOUNTER → 2023-09-27 | Emergency (ER) | payer SELFPAY ==
[~2023-09-27] MED LIST: CEPHALEXIN 250 MG CAP ONE; MUPIROCIN 2% OINT 22GM TUBE TOP ONE; SMZ./TMP. 800/160 MG TABLET ONE
--- OUTSIDE RECORDS SUMMARY | 2023-09-27 11:03 | XMS REPORT | Continuity of Care Document ---
Author Name Unknown Address [address] [facility] Luis Armando. [address] [place] [address] [facility] thconnect Address [address] [facility]. [address] [place] [address] Care Team Providers Care Striker Out Name Role Phone No MD, Pcp Primary Care Physician CYNDIE Pacheco Attending Clinician Unavailable Cheli PETERSON Attending Clinician Unavailable Cheli Roth Attending Clinician [phone] Doctor Unassigned, [place] Attending Clinician U HANNAH Keith Attending Clinician Hannah Miguel MD Attending Clinician [phone] Referred, Self Attending Clinician Unavailable JENNY MANZANO K.HCande Attending Clinician Katalina Manzano MD, Jenny K.H. Attending Clinician + [phone] Daina Bhakta Attending Clinician + DAINA HOLMAN Attending Clinician Unavail Hannah Lares Attending Clinician [phone] HANNAH BAKER Attending Clinician UnavailOsiel Hyatt Attending Clinician + [phone] OSIEL VIVAS Attending Clinician UnavailGuera Collado DO Attending Clinician [phone] Visit, [facility] Nurse Attending Clinician Dahlia Bermudez [facility] Resident Attending Clinician Zahra Hernandez MD, Naveed Bello Attending Clinician HANNAH BAKER Admitting Clinician Katalina santana Referred, Self Admitting Clinician Unavailable JENNY MANZANO Admitting Clinician Katalina santana Physician, No Primary or Family Admitting Clinic edwar Unavailable Payers Payer Name Policy Type Policy Number Effective Date Expirati on Date Source 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 mammo from [facility] 01-17-22Bi lateral cystsTher e is no sonograph ic evidence of malignanc yRoutine mammo in 1 year [facility] History of breast surgery History of breast surgery Disease Active 09-06 00:00: 00 [facility] History of breast surgery History of breast surgery Disease Active 09-06 00:00: 00 [facility] BMI 25.0-25.9, adult BMI 25.0-25.9, adult Disease Active 11-04 00:00: 00 [facility] Hyperthyro idism Hyperthyro idism Disease Active 11-04 00:00: 00 [facility] BMI 25.0-25.9, adult BMI 25.0-25.9, adult Disease Active 11-04 00:00: 00 [facility] Encounter for IUD removal Encounter for IUD removal Disease Active 10-15 00:00: 00 Overview: Formattin g of this note might be different from the original. paragard 05/2020 [facility] Essential hypertensi on Essential hypertensi on Disease Active 01-02 00:00: 00 Overview: Formattin g of this note might be different from the original. 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 [facility] Allergies, Adverse Reactions, Alerts Allergy Name Allergy Type Status Severity Reaction(s) Onset Date Inactive Date Treating Clinician Comments Source NO KNOWN ALLERGIE S Drug Class Active [facility] Social History Social Habit Start Date Stop Date Quantity Comments Source Sexual orientation [facility] Tobacco use and exposure 2023-08-19 00:00:00 2023-08-19 00:00:00 Smokeless tobacco non-user [facility] Alcoholic beverage intake 2023-08-19 00:00:00 2023-08-19 00:00:00 Ex-drinker (finding) [facility] History of Social function 2023-08-19 00:00:00 2023-08-19 00:00:00 [facility] Alcohol intake 2023-05-14 00:00:00 2023-05-14 00:00:00 0 /d [facility] Exposure to SARS-CoV-2 (event) 2021-12-18 00:00:00 2021-12-28 11:14:00 Not sure [facility] Sex assigned at 1980 00:00:00 1980 00:00:00 [facility] Smoking Status Start Date Stop Date Source Never smoked tobacco [facility] Medications Ordered Medication Name Filled Medication Name Start Date Stop Date Current Medication? Ordering Clinician Indication Dosage Frequency Signature (SIG) Comments Components Source lisinopril 10 MG tablet 10-09 00:00: 00 Yes [facility] levothyroxi ne (Synthroid, Levoxyl) 75 MCG tablet 10-09 00:00: 00 Yes [facility] TAKE 10 ML EVERY 4-6 HOURS NEEDED 2021-07 0 00:00: 00 No levothyroxi ne 75 mcg tablet 11-05 00:00: 00 No 1mcg levothyroxi ne 75 mcg tablet 11-05 00:00: 00 No 1mcg lisinopril 10 mg tablet 11-02 00:00: 00 No 1mg levothyroxi ne 75 mcg tablet 11-02 00:00: 00 No 1mcg Dose Unknown 11-02 00:00: 00 No Dose Unknown 2022-0 11-02 00:00: 00 No Dose Unknown 2022-0 4 00:00: 00 No Dose Unknown 2022-0 11-02 00:00: 00 No Dose Unknown 2022-0 11-02 00:00: 00 No Dose Unknown 2022-0 11-02 00:00: 00 No Dose Unknown 2022-0 11-02 00:00: 00 No Dose Unknown 2022-0 11-02 00:00: 00 No Dose Unknown 2022-0 11-02 00:00: 00 No Dose Unknown 2022-0 11-02 00:00: 00 No Dose Unknown 2022-0 11-02 00:00: 00 No Dose Unknown 2022-0 11-02 00:00: 00 No Dose Unknown 2022-0 11-02 00:00: 00 No Dose Unknown 2022-0 11-02 00:00: 00 No Dose Unknown 2022-0 11-02 00:00: 00 No Dose Unknown 2022-0 11-02 00:00: 00 No Dose Unknown 2022-0 11-02 00:00: 00 No Dose Unknown 2022-0 11-02 00:00: 00 No Dose Unknown 2022-0 11-02 00:00: 00 No Dose Unknown 2022-0 11-02 00:00: 00 No Dose Unknown 2022-0 11-02 00:00: 00 No Dose Unknown 2022-0 11-02 00:00: 00 No lisinopril 10 mg tablet 2-0 11-02 00:00: 00 No 1mg levothyroxi ne 75 mcg tablet 2-0 11-02 00:00: 00 No 1mcg Dose Unknown 2022-0 11-02 00:00: 00 No Dose Unknown 2022-0 11-02 00:00: 00 No Dose Unknown 2022-0 11-02 00:00: 00 No Dose Unknown 2022-0 11-02 00:00: 00 No Dose Unknown 2022-0 11-02 00:00: 00 No Dose Unknown 2022-0 11-02 00:00: 00 No Dose Unknown 2022-0 11-02 00:00: 00 No Dose Unknown 2022-0 11-02 00:00: 00 No Dose Unknown 2022-0 11-02 00:00: 00 No Dose Unknown 2022-0 11-02 00:00: 00 No Dose Unknown 0 11-02 00:00: 00 No Dose Unknown 0 11-02 00:00: 00 No Dose Unknown 0 11-02 00:00: 00 No Dose Unknown 0 11-02 00:00: 00 No Dose Unknown 0 11-02 00:00: 00 No Dose Unknown 0 11-02 00:00: 00 No Dose Unknown 0 11-02 00:00: 00 No Dose Unknown 0 11-02 00:00: 00 No Dose Unknown 0 11-02 00:00: 00 No Dose Unknown 0 11-02 00:00: 00 No Dose Unknown 0 11-02 00:00: 00 No Dose Unknown 0 11-02 00:00: 00 No Bromfed DM 2 mg-30 mg-10 mg/5 mL oral syrup 0 07-14 00:00: 00 No 10mg/5 mL Bromfed DM 2 mg-30 mg-10 mg/5 mL oral syrup 07-14 00:00: 00 No 10mg/5 mL lisinopril 10 mg tablet 2020-07 08:55: 53 Yes 10mg Take 10 mg by mouth daily. [facility] lisinopril 10 mg tablet 2020-07 08:55: 53 Yes 10mg Take 10 mg by mouth daily. [facility] lisinopril 10 mg tablet 2020-07 08:55: 53 Yes 10mg Take 10 mg by mouth daily. [facility] lisinopril 10 mg tablet 2020-07 08:55: 53 Yes 10mg Take 10 mg by mouth daily. [facility] Dose Unknown 2020-07 00:00: 00 No Dose Unknown 2020-07 00:00: 00 No levothyroxi ne 75 mcg tablet 2020-07 00:00: 00 No 1mcg levothyroxi ne 75 mcg tablet 2020-07 00:00: 00 No 1mcg lidocaine 4 % topical patch 2020-07 007 00:00: 00 No 1% lidocaine 4 % topical patch 2020-07 0-07 00:00: 00 No 1% pantoprazol e 40 mg EC tablet 2020-07 0 00:00: 00 Yes 40mg Take 40 mg by mouth daily. [facility] ondansetron 4 mg tablet 2020-07 0 00:00: 00 Yes TAKE 1 TABLET BY MOUTH EVERY 12 HOURS NEEDED [facility] pantoprazol e 40 mg EC tablet 2020-07 0 00:00: 00 Yes 40mg Take 40 mg by mouth daily. [facility] ondansetron 4 mg tablet 2020-07 0 00:00: 00 Yes TAKE 1 TABLET BY MOUTH EVERY 12 HOURS NEEDED [facility] pantoprazol e 40 mg EC tablet 2020-07 0 00:00: 00 Yes 40mg Take 40 mg by mouth daily. [facility] ondansetron 4 mg tablet 2020-07 0 00:00: 00 Yes TAKE 1 TABLET BY MOUTH EVERY 12 HOURS NEEDED [facility] pantoprazol e 40 mg EC tablet 2020-07 0 00:00: 00 Yes 40mg Take 40 mg by mouth daily. [facility] ondansetron 4 mg tablet 2020-07 0 00:00: 00 Yes TAKE 1 TABLET BY MOUTH EVERY 12 HOURS NEEDED [facility] Dose Unknown 2020-07 0 00:00: 00 No Dose Unknown 2020-07 0 00:00: 00 No levothyroxi ne 75 mcg tablet 15 00:00: 00 No 1mcg levothyroxi ne 75 mcg tablet 01-19 00:00: 00 No 1mcg Dose Unknown 10-21 00:00: 00 No Dose Unknown 10-21 00:00: 00 No levothyroxi ne 75 mcg tablet 10-15 00:00: 00 No 1mcg Vitamin D3 25 mcg (1,000 unit) capsule - 00:00: 00 No 1(1,000 unit) levothyroxi ne 75 mcg tablet 10-15 00:00: 00 No 1mcg Vitamin D3 25 mcg (1,000 unit) capsule 0 10 00:00: 00 No 1(1,000 unit) lisinopril 10 mg tablet 0 10-13 00:00: 00 No 1mg famotidine 20 mg tablet 0 10-13 00:00: 00 No 1mg levothyroxi ne 50 mcg tablet 0 - 00:00: 00 No 1mcg lisinopril 10 mg tablet 0 10-13 00:00: 00 No 1mg famotidine 20 mg tablet 0 10-13 00:00: 00 No 1mg levothyroxi ne 50 mcg tablet 0 10-13 00:00: 00 No 1mcg levothyroxi ne 50 mcg tablet 0 03-31 00:00: 00 No 1mcg levothyroxi ne 50 mcg tablet 0 03-31 00:00: 00 No 1mcg famotidine 20 mg tablet 0 01-27 00:00: 00 No 1mg famotidine 20 mg tablet 0 01-27 00:00: 00 No 1mg famotidine 20 mg tablet 0 01-27 00:00: 00 No 1mg famotidine 20 mg tablet 0 01-27 00:00: 00 No 1mg prednisone 20 mg tablet 0 01-26 00:00: 00 No 1mg levothyroxi ne 50 mcg tablet 0 01-26 00:00: 00 No 1mcg Zyrtec 10 mg capsule 0 01-26 00:00: 00 No 1mg amoxicillin 500 mg capsule 0 01-26 00:00: 00 No 1mg prednisone 20 mg tablet 0 01-26 00:00: 00 No 1mg levothyroxi ne 50 mcg tablet 0 01-26 00:00: 00 No 1mcg Zyrtec 10 mg capsule 0 01-26 00:00: 00 No 1mg amoxicillin 500 mg capsule 0 01-26 00:00: 00 No 1mg Zyrtec 10 mg capsule 2019-0 6-17 00:00: 00 No 1mg Zyrtec 10 mg capsule 2019-0 617 00:00: 00 No 1mg levothyroxi ne 50 mcg tablet 0 11-26 00:00: 00 No 1mcg levothyroxi ne 50 mcg tablet 11-26 00:00: 00 No 1mcg levothyroxi ne 88 mcg tablet 10-28 00:00: 00 No 1mcg levothyroxi ne 88 mcg tablet 10-28 00:00: 00 No 1mcg levothyroxi ne 100 mcg tablet 30 00:00: 00 No 1mcg Vitamin D2 1,250 mcg (50,000 unit) capsule 10-04 00:00: 00 No 1(50,00 0 unit) levothyroxi ne 100 mcg tablet 10-04 00:00: 00 No 1mcg Vitamin D2 1,250 mcg (50,000 unit) capsule 10-04 00:00: 00 No 1(50,00 0 unit) Augmentin 875 mg-125 mg tablet 3 00:00: 00 No 1mg Augmentin 875 mg-125 mg tablet 09-23 00:00: 00 No 1mg lisinopril 10 mg tablet 0 3-05 00:00: 00 No 1mg amoxicillin 500 mg capsule 0 3-05 00:00: 00 No 1mg lisinopril 10 mg tablet 3-05 00:00: 00 No 1mg amoxicillin 500 mg capsule 3-05 00:00: 00 No 1mg lisinopril 10 mg tablet 2018-07 1-25 00:00: 00 No 1mg lisinopril 10 mg tablet 1 1-25 00:00: 00 No 1mg lisinopril 10 mg tablet 0 2-05 00:00: 00 No 1mg cephalexin 500 mg capsule 0 2-05 00:00: 00 No 1mg lisinopril 10 mg tablet 0 2-05 00:00: 00 No 1mg cephalexin 500 mg capsule 0 2-05 00:00: 00 No 1mg Vitamin D2 50,000 unit capsule 0 1-14 00:00: 00 No 1unit Vitamin D2 50,000 unit capsule 0 1-14 00:00: 00 No 1unit lisinopril 10 mg tablet 2017-07 00:00: 00 No 1mg lisinopril 10 mg tablet 2017-07 00:00: 00 No 1mg lisinopril 10 mg tablet 03-21 00:00: 00 No 1mg lisinopril 10 mg tablet 03-21 00:00: 00 No 1mg lisinopril 10 mg tablet 2015-07 00:00: 00 No 1mg lisinopril 10 mg tablet 2015-07 00:00: 00 No 1mg lisinopril 10 mg-hydrochl orothiazide 12.5 mg tablet 2015-07 00:00: 00 No 1mg lisinopril 10 mg-hydrochl orothiazide 12.5 mg tablet 2015-07 00:00: 00 No 1mg amoxicillin 500 mg capsule 02-05 00:00: 00 No 2mg omeprazole 20 mg capsule,del ayed release 02-05 00:00: 00 No 1mg clarithromy dione 500 mg tablet 02-05 00:00: 00 No 1mg amoxicillin 500 mg capsule 02-05 00:00: 00 No 2mg omeprazole 20 mg capsule,del ayed release 02-05 00:00: 00 No 1mg clarithromy dione 500 mg tablet 02-05 00:00: 00 No 1mg lisinopril 10 mg-hydrochl orothiazide 12.5 mg tablet 08-10 00:00: 00 No 1mg Vistaril 50 mg capsule 08-10 00:00: 00 No 1mg lisinopril 10 mg-hydrochl orothiazide 12.5 mg tablet 08-10 00:00: 00 No 1mg Vistaril 50 mg capsule 08-10 00:00: 00 No 1mg clindamycin 300 mg capsule 2014-07 00:00: 00 No 1mg clindamycin 300 mg capsule 2014-07 00:00: 00 No 1mg lisinopril 10 mg-hydrochl orothiazide 12.5 mg tablet 2014-07 0 00:00: 00 No 1mg lisinopril 10 mg-hydrochl orothiazide 12.5 mg tablet 2014-07 00:00: 00 No 1mg lisinopril 10 mg-hydrochl orothiazide 12.5 mg tablet 03-24 00:00: 00 No 1mg lisinopril 10 mg-hydrochl orothiazide 12.5 mg tablet 03-24 00:00: 00 No 1mg lisinopril 10 mg-hydrochl orothiazide 12.5 mg tablet 07-22 00:00: 00 No 1mg lisinopril 10 mg-hydrochl orothiazide 12.5 mg tablet 07-22 00:00: 00 No 1mg Immunizations Ordered Immunization Name Filled Immunization Name Date Status Comments Source Influenza Virus Vaccine Quad .5 mL IM 6+ MO 2020-04-21 00:00:00 Completed [facility] Influenza Virus Vaccine Quad .5 mL IM 6+ MO 2020-04-21 00:00:00 Completed [facility] Influenza Virus Vaccine Quad .5 mL IM 6+ MO 2020-04-21 00:00:00 Completed [facility] Influenza Virus Vaccine Quad .5 mL IM 6+ MO 2019-05-27 00:00:00 Completed [facility] Influenza Virus Vaccine Quad .5 mL IM 6+ MO 2019-05-27 00:00:00 Completed [facility] Influenza Virus Vaccine Quad .5 mL IM 6+ MO 2019-05-27 00:00:00 Completed [facility] TDAP 2013-06-26 00:00:00 Completed [facility] TDAP 2013-06-26 00:00:00 Completed [facility] TDAP 2013-06-26 00:00:00 Completed [facility] Influenza Virus Vaccine 2013-03-26 00:00:00 Completed [facility] Influenza Virus Vaccine 2013-03-26 00:00:00 Completed [facility] Influenza Virus Vaccine 2013-03-26 00:00:00 Completed [facility] Rubella 2007-03-21 00:00:00 Completed [facility] Rubella 2007-03-21 00:00:00 Completed [facility] Rubella 2007-03-21 00:00:00 Completed [facility] Td 1998-07-08 00:00:00 Completed [facility] Td 1998-07-08 00:00:00 Completed [facility] Td 1998-07-08 00:00:00 Completed [facility] Rubella Unknown Completed [facility] TD, NOS Unknown Completed [facility] Influenza Virus Vaccine Unknown Completed [facility] TDAP Unknown Completed [facility] Influenza Virus Vaccine Quad .5 mL IM 6+ MO (FLUZONE/FLULAVAL/F LUARIX) Unknown Completed [facility] Influenza Virus Vaccine Quad .5 mL IM 6+ MO (FLUZONE/FLULAVAL/F LUARIX) Unknown Completed [facility] Vital Signs Vital Name Observation Time Observation Value Comments S our Systolic blood pressure 2023-08-19 17:18:00 131 mm[Hg] [facility] Diastolic blood pressure 2023-08-19 17:18:00 89 mm[Hg] [facility] Heart rate 2023-08-19 17:18:00 98 /min [facility] alth Body temperature 2023-08-19 17:18:[address] [facility] Body height 2023-08-19 17:18:[facility] 2023-08-19 17:18[facility] 2023-08-19 17:18:00 25[facility]19 [facility] Body temperature 2023-05-15 02:56:00 37.28 Dawn [facility] Respiratory rate 2023-05-15 02:56:00 20 /min [facility] Body height 2023-05-15 02:56:00 165.1 cm [facility] Body weight 2023-05-15 02:56:00 66.679 kg [facility] BMI 2023-05-15 02:56:00 24.46 kg/m2 [facility] Oxygen saturation in Arterial blood by Pulse oximetry 2023-05-15 02:56:00 100 /min [facility] Systolic blood pressure 2023-05-15 02:56:00 127 mm[Hg] [facility] Diastolic blood pressure 2023-05-15 02:56:00 78 mm[Hg] [facility] Heart rate 2023-05-15 02:56:00 72 /min [facility] BP Systolic 2022-04-12 13:37:00 119 mm[Hg] BP [...] Procedures Procedure Date / Time Performed Performing Clinicia n Source POCT URINALYSIS DIPSTICK 2023-08-19 17:51:00 Cyndie Brown [facility] ASSIGNMENT OF BENEFITS 2023-05-15 04:13:22 Docto r Unassigned, [place] [facility] NOTICE OF PRIVACY PRACTICES 2023-05-15 02:38:53 Doctor Unassigned, [place] [facility] CONSENT/REFUSAL FOR DIAGNOSIS AND TREATMENT 2023-05-15 02:38:25 Doctor Unassigned, [place] [facility] EXTERNAL PROVIDER RECORDS 2022-02-05 05:01:00 Doctor Unassigned, [place] [facility] EXTERNAL PROVIDER RECORDS 2022-01-19 05:01:00 Doctor Unassigned, [place] [facility] Ekg 2018-07-14 00:00:00 92284 Ecg Routine Ecg W/least 12 Lds W/i r 2015-03-24 00:00:00 Plan of Care Planned Activity Planned Date Details Comments Source Goal Plan of Care Note [code = 24704-7] Goal Plan of Care Note [code = 04475-3] Goal Plan of Care Note [code = 20915-4] Goal Plan of Care Note [code = 98795-5] Goal Plan of Care Note [code = 68612-8] Goal Plan of Care Note [code = 03460-6] Goal Plan of Care Note [code = 76281-9] Goal Plan of Care Note [code = 35348-9] Goal Plan of Care Note [code = 09826-5] Goal Plan of Care Note [code = 52961-9] Goal Plan of Care Note [code = 61422-7] Goal Plan of Care Note [code = 64890-6] Goal Plan of Care Note [code = 66489-7] Goal Plan of Care Note [code = 89567-0] Goal Plan of Care Note [code = 34571-4] Goal Plan of Care Note [code = 31640-7] Goal Plan of Care Note [code = 85418-1] Goal Plan of Care Note [code = 16129-5] Goal Plan of Care Note [code = 61153-5] Goal Plan of Care Note [code = 05271-3] Goal Plan of Care Note [code = 37185-1] Goal Plan of Care Note [code = 32483-5] Goal Plan of Care Note [code = 49949-0] Goal Plan of Care Note [code = 80206-2] Goal Plan of Care Note [code = 45878-5] Goal Plan of Care Note [code = 33176-2] Goal Plan of Care Note [code = 74326-2] Goal Plan of Care Note [code = 03298-6] Goal Plan of Care Note [code = 65950-6] Goal Plan of Care Note [code = 36156-6] Goal Plan of Care Note [code = 90503-6] Goal Plan of Care Note [code = 49256-2] Goal Plan of Care Note [code = 47880-4] Goal Plan of Care Note [code = 97501-8] Goal Plan of Care Note [code = 11658-4] Goal Plan of Care Note [code = 67364-8] Goal Plan of Care Note [code = 38109-9] Goal Plan of Care Note [code = 60891-9] Goal Plan of Care Note [code = 20129-0] Goal Plan of Care Note [code = 75916-2] Goal Plan of Care Note [code = 76732-9] Goal Plan of Care Note [code = 40511-8] Goal Plan of Care Note [code = 24159-9] Goal Plan of Care Note [code = 31235-8] Goal Plan of Care Note [code = 68912-1] Goal Plan of Care Note [code = 23558-2] Goal Plan of Care Note [code = 87926-9] Goal Plan of Care Note [code = 32723-4] Goal Plan of Care Note [code = 21094-6] Goal Plan of Care Note [code = 09410-6] Goal Plan of Care Note [code = 29969-5] Goal Plan of Care Note [code = 16090-7] Goal Plan of Care Note [code = 06380-6] Goal Plan of Care Note [code = 70893-0] Goal Plan of Care Note [code = 24894-4] Goal Plan of Care Note [code = 16302-8] Goal Plan of Care Note [code = 69254-8] Goal Plan of Care Note [code = 62668-0] Encounters Start Date/Time End Date/Time Encounter Type Admission Type Attending [facility] Care Facility Care Department Encounter ID Source 2021-05-05 23:42:11 Emergency [facility] [id number] [facility] 2023-09-26 10:52:09 2023-09-26 10:52:09 Outpatient [facility] [id number] Juan Santana 2023-09-19 13:39:27 2023-09-19 13:39:27 Outpatient [facility] [id number] Juan Santana 2023-08-19 11:00:00 2023-08-19 13:30:58 Office Visit CYNDIE BROWN [facility] 1 [id number] [facility] 2023-07-30 09:40:46 2023-07-30 09:40:46 Outpatient [facility] [id number] Juan Santana 2023-05-14 21:00:00 2023-05-14 23:17:00 Emergency X NICHOLAS, Cheli [facility] ERT [id number] [facility] 2023-05-14 21:00:00 2023-05-14 23:17:00 Emergency Cheli Peterson Cassie [facility] [id number] [id number] [id number] [facility] 2023-05-02 11:32:33 2023-05-02 11:32:33 Outpatient [facility] [id number] Juan Richard Max 2023-04-29 17:06:53 2023-04-29 17:06:53 Outpatient [facility] SFA [id number] Juan Richard Huffman 2023-03-11 14:00:00 2023-03-11 14:00:00 Outpatient [facility] [id number] Juan Richard Huffman 2022-11-26 09:14:01 2022-11-26 09:14:01 Outpatient [facility] [id number] Juan Richard Max 2022-10-04 13:25:10 2022-10-04 13:25:10 Outpatient [facility] [id number] Juan Richard Max 2022-07-13 10:45:38 2022-07-13 10:45:38 Outpatient [facility] SFA [id number] Juan Richard Max 2022-07-12 14:10:28 2022-07-12 14:10:28 Outpatient [facility] SFA [id number] Juan Richard Max 2022-07-11 13:37:25 2022-07-11 13:37:25 Outpatient SFA SFA [id number] Juan Richard Max 2022-04-12 13:31:38 2022-04-12 13:31:38 Outpatient [facility] SFA [id number] Juan Santana 2022-04-12 00:00:00 2022-04-12 00:00:00 Outpatient Visit [id number] 2022-03-20 00:00:00 2022-03-20 00:00:00 Outpatient Visit [id number] 2022-02-05 00:00:00 2022-02-05 00:00:00 Orders Only Doctor Unassigned, [place] [facility] 1..840.114 350.1.13.10 [id number] [id number] [facility] 2022-01-19 00:00:00 2022-01-19 00:00:00 Orders Only Doctor Unassigned, [place] [facility] [id number] 350.1.13.10 [id number] [id number] [facility] 2022-01-17 08:00:00 2022-01-17 08:00:00 Outpatient HANNAH BOUCHER [facility] [id number] [facility] 2022-01-15 00:00:00 2022-01-15 00:00:00 Hannah Prater [facility] [employer] [id number] 350.1.13.10 [id number] [id number] [facility] 2022-01-12 12:00:00 2022-01-12 12:00:00 Outpatient Marvel Goldstein [facility] [id number] [facility] 2021-12-29 09:00:00 2021-12-29 09:25:36 Outpatient R JENNY MANZANO [facility] [id number] [facility] 2021-12-29 09:00:00 2021-12-29 09:25:36 Office Visit Jenny Manzano [facility] 1..840.114 350.1.13.10 [id number] [id number] [facility] 2021-12-29 09:00:00 2021-12-29 09:25:36 Outpatient R JENNY MANZANO [facility] [id number] [facility] 2021-12-29 09:00:00 2021-12-29 09:00:00 Outpatient R JENNY MANZANO [facility] [id number] [facility] 2021-12-28 16:00:00 2021-12-28 16:33:08 Office Visit Daina Holman [facility] [employer] [employer] 1..840.114 350.1.13.10 4.2.7.2.686 [id number] [facility] 2021-12-28 16:00:00 2021-12-28 16:33:08 Outpatient R DAINA HOLMAN [facility] [id number] [facility] 2021-12-28 16:00:00 2021-12-28 16:00:00 Outpatient R DAINA HOLMAN [facility] [id number] [facility] 2021-12-28 00:00:00 2021-12-28 00:00:00 Orders Only Doctor Unassigned, [place] [facility] 1..840.114 350.1.13.10 4.2.7.2.686 [id number] [facility] 2021-06-12 09:00:00 2021-06-12 09:38:41 Outpatient R JENNY MANZANO [facility] [id number] [facility] 2021-06-12 08:36:22 2021-06-12 09:38:41 Office Visit Jenny Manzano [facility] 1.2.840.114 350.1.13.10 4.2.7.2.686 [id number] [facility] 2021-06-12 00:00:00 2021-06-12 00:00:00 Letter (Out) Jenny Manzano [facility] 1.2.840.114 350.1.13.10 4.2.7.2.686 [id number] [facility] 2021-06-12 00:00:00 2021-06-12 00:00:00 Letter (Out) Jenny Manzano [facility] 1.2.840.114 350.1.13.10 4.2.7.2.686 [id number] [id number] [facility] 2021-05-19 00:00:00 2021-05-19 00:00:00 Telephone Jenny Manzano [facility] 1.2.840.114 350.1.13.10 4.2.7.2.686 [id number] [facility] 2021-05-10 14:26:29 2021-05-10 23:59:00 Outpatient R JENNY MANZANO [facility] [id number] [facility] 2021-05-10 14:26:29 2021-05-10 23:59:00 Hospital Encounter Jenny Manzano [facility] 1.2.840.114 350.1.13.10 4.2.7.2.686 [id number] [facility] 2021-04-10 13:02:51 2021-04-10 13:33:19 Office Visit Jenny Manzano [facility] 1.2.840.114 350.1.13.10 4.2.7.2.686 [id number] [facility] 2021-04-10 13:00:00 2021-04-10 13:00:00 Outpatient R JENNY MANZANO [facility] [id number] [facility] 2021-04-10 00:00:00 2021-04-10 00:00:00 Letter (Out) Jenny Manzano [facility] 1.2.840.114 350.1.13.10 4.2.7.2.686 [id number] [facility] 2021-04-10 00:00:00 2021-04-10 00:00:00 Orders Only Doctor Unassigned, [place] [facility] 1.2.840.114 350.1.13.10 4.2.7.2.686 [id number] [facility] 2021-03-01 00:00:00 2021-03-01 00:00:00 Telephone Hannah Baker [facility] 1..840.114 350.1.13.10 4.2.7.2.686 [id number] [facility] 2021-02-28 08:24:49 2021-02-28 09:16:09 Office Visit Hannah Baker [facility] 1.2840.114 350.1.13.10 4.2.7.2.686 [id number] [facility] 2021-02-28 08:15:00 2021-02-28 08:15:00 Outpatient R HANNAH BAKER [facility] [id number] [facility] 2021-02-28 00:00:00 2021-02-28 00:00:00 Letter (Out) Hannah Baker [facility] 1.284.114 350.1.13.10 4.2.7.2.686 [id number] 107 [id number] [facility] 2021-02-28 00:00:00 2021-02-28 00:00:00 Letter (Out) Hannah Baker [facility] 1.840.114 350.1.13.10 4.2.7.2.686 [id number] [facility] 2021-02-27 00:00:00 2021-02-27 00:00:00 Telephone Hannah Baker [facility] 1.840.114 350.1.13.10 4.2.7.2.686 [id number] [facility] 2021-02-22 08:31:54 2021-02-22 09:08:46 Office Visit Hananh Baker Roshunda R [facility] 1.840.114 350.1.13.10 4.2.7.2.686 [id number] [facility] 2021-02-22 08:15:00 2021-02-22 08:15:00 Outpatient OSIEL MCMAHON [facility] [id number] [facility] 2021-02-22 00:00:00 2021-02-22 00:00:00 Orders Only Doctor Unassigned, [place] [facility] 1.84.114 350.1.13.10 4.2.7.2.686 [id number] [facility] 2020-11-01 00:00:00 2020-11-01 00:00:00 Telephone Hannah Baker [facility] 1.0.114 350.1.13.10 4.2.7.2.686 [id number] [facility] 2020-11-01 00:00:00 2020-11-01 00:00:00 Orders Only Doctor Unassigned, [place] [facility] 1.0.114 350.1.13.10 4.2.7.2.686 [id number] [facility] 2020-10-24 12:00:00 2020-10-24 12:00:00 Outpatient HANNAH BOUCHER [facility] [id number] [facility] 2020-10-18 10:00:00 2020-10-18 23:59:00 Hospital Encounter Hannah Baker [facility] 1..114 350.1.13.10 4.2.7.2.686 [id number] [facility] 2020-10-18 00:00:00 2020-10-18 00:00:00 Outpatient R HANNAH BAKER [facility] [id number] [facility] 2020-10-18 00:00:00 2020-10-18 00:00:00 Telephone Daina Holman [facility] 1..114 350.1.13.10 4.2.7.2.686 [id number] [facility] 2020-09-20 00:00:00 2020-09-20 00:00:00 Outpatient HANNAH STERN [facility] [id number] [facility] 2020-09-06 09:59:10 2020-09-06 10:36:20 Office Visit Hannah Baker [facility] 1.0.114 350.1.13.10 4.2.7.2.686 [id number] [facility] 2020-09-06 09:59:10 2020-09-06 10:36:20 Office Visit Hannah Baker [facility] 1.2.840.114 350.1.13.10 4.2.7.2.686 [id number] 2020-09-06 10:00:00 2020-09-06 10:00:00 Outpatient R HANNAH BAKER [facility] [id number] [facility] 2020-07-31 00:00:00 2020-07-31 00:00:00 Refill Osiel Vivas [facility] 1.2.840.114 350.1.13.10 4.2.7.2.686 [id number] [facility] 2020-07-13 08:10:53 2020-07-13 08:51:04 Office Visit Osiel Vivas [facility] 1.2.840.114 350.1.13.10 4.2.7.2.686 [id number] [facility] 2020-07-13 08:15:00 2020-07-13 08:15:00 Outpatient OSIEL MCMAHON [facility] [id number] [facility] 2020-05-31 08:24:02 2020-05-31 08:54:02 Office Visit Osiel Vivas [facility] 1.2.840.114 350.1.13.10 4.2.7.2.686 [id number] [facility] 2020-05-31 08:30:00 2020-05-31 08:30:00 Outpatient OSIEL MCMAHON [facility] [id number] [facility] 2020-05-31 00:00:00 2020-05-31 00:00:00 Orders Only Doctor Unassigned, [place] [facility] 1.2.840.114 350.1.13.10 4.2.7.2.686 [id number] [facility] 2020-04-25 11:24:00 2020-04-25 13:07:00 Emergency Guera Baker [facility] 1.2840.114 350.1.13.10 4.2.7.2.686 [id number] [facility] 2020-04-25 00:00:00 2020-04-25 00:00:00 Orders Only Doctor Unassigned, [place] [facility] 1.2840.114 350.1.13.10 4.2.7.2.686 [id number] [facility] 2020-04-21 09:15:40 2020-04-21 09:32:53 Nurse Visit Visit, [facility] Osiel Smith [facility] [employer] 1.2840.114 350.1.13.10 4.2.7.2.686 [id number] [facility] 2020-04-21 08:30:00 2020-04-21 08:30:00 Outpatient R [facility] [id number] [facility] 2020-01-28 08:43:48 2020-01-28 09:22:35 Nurse Visit Visit, [facility] Osiel Smith [facility] 1.2840.114 350.1.13.10 4.2.7.2.686 [id number] [facility] 2020-01-28 09:00:00 2020-01-28 09:00:00 Outpatient R [facility] [id number] [facility] 2019-11-10 08:30:00 2019-11-10 08:30:00 Outpatient R OSIEL VIVAS [facility] [id number] [facility] 2019-11-05 08:32:17 2019-11-05 09:21:05 Office Visit Osiel Vivas [facility] 1.20.114 350.1.13.10 4.2.7.2.686 [id number] [facility] 2019-11-05 08:30:00 2019-11-05 08:30:00 Outpatient R OSIEL VIVAS [facility] [id number] [facility] 2019-08-18 08:29:36 2019-08-18 09:09:50 Nurse Visit Visit, [facility] Osiel Vivas [facility] 1..114 350.1.13.10 4.2.7.2.686 [id number] [facility] 2019-03-12 13:09:03 2019-03-12 14:19:18 Office Visit Aidan, [facility] Resident Naveed Daley [facility] 1.114 350.1.13.10 4.2.7.2.686 [id number] [facility] 2019-03-12 00:00:00 2019-03-12 00:00:00 Orders Only Doctor Unassigned, [place] [facility] 1.114 350.1.13.10 4.2.7.2.686 [id number] [facility] 2019-03-04 08:28:59 2019-03-04 08:46:23 Nurse Visit Visit, [facility] Nurse Osiel Vivas [facility] [employer] [facility] 1..114 350.1.13.10 4.2.7.2.686 [id number] [facility] Results Test Description Test Time Test Comments Results Result Co mments Source COMPREHENSIVE METABOLIC [id number] 05:29:13* Test Item Value Reference Range Interpretation Comme nts GLUCOSE (test code = 2216) 102 MG/DL 70-99 H BUN (test code = 2208) 13 MG/DL 6-20 CREATININE (test code = 221) 1.30 MG/DL 0.60-1.30 eGFR (2020 CKD-EPI) (test code = 99915) 53 ML/MIN/1.73 >60 L The NKF-ASN Taskforc e recommends use of Cystatin C to confirm eGFR inadults at risk for CKD. [facility] offers eGFR with Cystatin C-Creatinineusing the 2020 CKD-EPI eGFR_creat-cystat equation (order code 3057) toincrease the accuracy of estimated GFR. For more information, contactyour accounts payable representative or see announcement [email or web address] CALC BUN/CREAT (test code = 2234) 10 RATIO 6-28 SODIUM (test code = 2230) 138 MEQ/L 133-146 POTASSIUM (test code = 2227) 4.6 MEQ/L 3.5-5.4 CHLORIDE (test code = 5) 103 MEQ/L 95-107 CARBON DIOXIDE (test code = 2206) 21 MEQ/L 19-31 CALCIUM (test code = 2209) 8.9 MG/DL 8.5-10.5 PROTEIN, TOTAL (test code = 222) 7.2 G/DL 6.1-8.3 ALBUMIN (test code = 2200) 4.5 G/DL 3.5-5.2 CALC GLOBULIN (test code = 2240) 2.7 G/DL 1.9-3.7 CALC A/G RATIO (test code = 223) 1.7 RATIO 1.0-2.6 BILIRUBIN, TOTAL (test code = 220) <0.2 MG/DL <=1.2 ALKALINE PHOSPHATASE (test code = 220) 83 U/L 40-113 AST (test code = 2218) 20 U/L 9-40 ALT (test code = 2219) 17 U/L 5-40 UNLESS OTHERWISE INDICATED, ALL TESTING PERFORMED AT [facility] [address] [facility] [address] VEHICLE COST ENGINEER: DERRICK FISHER M.D. CLIA NUMBER [id number] [place]. [id number] POCT urinalysis dipstick manually [id number] 17:51:10* Test Item Value Reference Range Interpretation Comme nts Color, UA (test code = 1076) Yellow Clarity, UA (test code = 4630080) Slightly Cloudy Glucose, UA (test code = 5914833) Negative Negative Bilirubin, UA (test code = 8264499) Negative Negative Ketones, Urine (test code = 61560-2) Negative Negative, Trace Spec Grav, UA (test code = 758506918) 1.010 Blood, UA (test code = 497848379) Trace pH, UA (test code = 8207499) 5.5 5.0-8.5 Protein, UA (test code = 5244454) 30(+1) mg/dL Negative, Trace, 200(+2)mg/dL, 15/mg/dL A UROBILINOGEN, POC (test code = 00994325) 0.2 Nitrite, UA (test code = 3462516) Negative Negative, Trace Leukocytes, UA (test code = 0538503) Negative Negative, Trace Lab Interpretation (test code = 20522-8) Abnormal [facility], THIRD [id number] 06:53:21* Test Item Value Reference Range Interpretation Comme nts TSH, THIRD GENERATION (test code = 2821) 5.680 UIU/ML 0.400-4.100 H UNLESS OTHERWISE INDICATED, ALL TESTING PERFORMED AT [facility] [address] [place] [address] VEHICLE COST ENGINEER: DERRICK FISHER M.D. CLIA NUMBER [id number] [place]. [id number] COMPREHENSIVE METABOLIC [id number] 06:49:25* Test Item Value Reference Range Interpretation Comme nts GLUCOSE (test code = 2217) 95 MG/DL 70-99 BUN (test code = 2208) 15 MG/DL 6-20 CREATININE (test code = 2214) 1.22 MG/DL 0.60-1.30 eGFR (2020 CKD-EPI) (test code = 10814) 57 ML/MIN/1.73 >60 L The NKF-ASN Taskforce recommends use of Cystatin C to confirm eGFR inadults at risk for CKD. [facility] offers eGFR with Cystatin C-Creatinineusing the 2021 CKD-EPI eGFR_creat-cystat equation (order code 3057) toincrease the accuracy of estimated GFR. For more information, contactyour accounts payable representative or see announcement [email or web address] CALC BUN/CREAT (test code = 2234) 12 RATIO 6-28 SODIUM (test code = 223) 138 MEQ/L 133-146 POTASSIUM (test code = 2227) 4.5 MEQ/L 3.5-5.4 CHLORIDE (test code = 221) 102 MEQ/L 95-107 CARBON DIOXIDE (test code = 220) 21 MEQ/L 19-31 CALCIUM (test code = 220) 9.4 MG/DL 8.5-10.5 PROTEIN, TOTAL (test code = 222) 7.7 G/DL 6.1-8.3 ALBUMIN (test code = 2200) 4.8 G/DL 3.5-5.2 CALC GLOBULIN (test code = 2240) 2.9 G/DL 1.9-3.7 CALC A/G RATIO (test code = 223) 1.7 RATIO 1.0-2.6 BILIRUBIN, TOTAL (test code = 2206) 0.6 MG/DL <=1.2 ALKALINE PHOSPHATASE (test code = 2203) 98 U/L 40-113 AST (test code = 221) 20 U/L 9-40 ALT (test code = 2219) 16 U/L 5-40 LIPID [id number] 06:49:25* Test Item Value Reference Range Interpretation Comme nts CHOLESTEROL (test code = 2210) 264 MG/DL <200 H TRIGLYCERIDES (test code = 2232) 156 MG/DL <150 H HDL CHOLESTEROL (test code = 2220) 59 MG/DL >39 CALC LDL CHOL (test code = 2237) 175 MG/DL <100 H NOTE: CALCULATED LDL IS BASED ON LESLY-GRECO METHOD WHICHINCLUDES ADJUSTABLE TRIGLYCERIDE:VLDL CHOLESTEROL RATIO.THIS FACTOR VARIES BY MEASURED TRIGLYCERIDE AND NON-HDLCHOLESTEROL CONCENTRATIONS WITH INCREASED CALCULATED LDL SEENIN HIGHER TRIGLYCERIDE OR LOWER NON-HDL SPECIMENS. FOR MOREINFORMATION, SEE CLIENT ANNOUNCEMENT AT [email or web address] RISK RATIO LDL/HDL (test code = 223) 2.97 RATIO <3.22 CULTURE, [id number] 15:30:18SPECIMEN NUMBER: [id number] CULTURE, URINE SPECIMEN NUMBER: [id number] SPECIMEN COMMENT: URINE SOURCE: URINE REPORT STATUS: FINAL ISOLATE NUMBER 1: IDENTIFICATION: 05/02/2023 <10,000 CFU/ML STREPTOCOCCUS AGALACTIAE (GROUP B) ADDITIONAL OBSERVATIONS: PENICILLIN AND AMPICILLIN ARE DRUGS OF CHOICE FOR TREATMENT OF B-HEMOLYTIC STREPTOCOCCAL INFECTIONS. SUSCEPTIBILITY TESTING OF PENICILLIN AND OTHER B-LACTAMS APPROVED BY THE [place] FOOD AND DRUG ADMINISTRATION FOR TREATMENT OF B-HEMOLYTIC STREPTOCOCCALINFECTIONS NEED NOT BE PERFORMED ROUTINELY. ADDITIONAL OBSERVATIONS: 05/02/2023 10-50,000 CFU/ML UROGENITAL CARSON PRESENT NO COMMON PATHOGENS UNLESS OTHERWISE INDICATED, ALL TESTING PERFORMED AT [facility] [address] [place] [address] VEHICLE COST ENGINEER: DERRICK FISHER M.D. CLIA NUMBER [id number] [facility] [place]. [id number] METABOLIC [id number] 06:56:24* Test Item Value Reference Range Interpretation Comme nts GLUCOSE (test code = 2217) 101 MG/DL 70-99 H BUN (test code = 2208) 19 MG/DL 6-20 CREATININE (test code = 2214) 1.28 MG/DL 0.60-1.30 eGFR (2020 CKD-EPI) (test code = 09193) 54 ML/MIN/1.73 >60 L The NKF-ASN Taskforce recommends use of Cystatin C to confirm eGFR inadults at risk for CKD. [facility] offers eGFR with Cystatin C-Creatinineusing the 2020 CKD-EPI eGFR_creat-cystat equation (order code 3057) toincrease the accuracy of estimated GFR. For more information, contactur accounts payable representative or see announcement [email or web address] CALC BUN/CREAT (test code = 2235) 15 RATIO 6-28 SODIUM (test code = 2231) 141 MEQ/L 133-146 POTASSIUM (test code = 2228) 4.5 MEQ/L 3.5-5.4 CHLORIDE (test code = 2215) 102 MEQ/L 95-107 CARBON DIOXIDE (test code = 2206) 24 MEQ/L 19-31 CALCIUM (test code = 2209) 10.2 MG/DL 8.5-10.5 PROTEIN, TOTAL (test code = 2229) 8.2 G/DL 6.1-8.3 ALBUMIN (test code = 2201) 4.9 G/DL 3.5-5.2 CALC GLOBULIN (test code = 2240) 3.3 G/DL 1.9-3.7 CALC A/G RATIO (test code = 2234) 1.5 RATIO 1.0-2.6 BILIRUBIN, TOTAL (test code = 2207) 0.5 MG/DL See_Comment [Automated me ssage] The system which generated this result transmitted reference range: <=1.2. The reference range was not used to interpret this result as normal/abnormal. ALKALINE PHOSPHATASE (test code = 2203) 109 U/L 40-113 AST (test code = 2218) 18 U/L 9-40 ALT (test code = 2219) 16 U/L 5-40 LIPID [id number] 06:56:24* Test Item Value Reference Range Interpretation Comme nts CHOLESTEROL (test code = 2210) 285 MG/DL <200 H TRIGLYCERIDES (test code = 2232) 245 MG/DL <150 H HDL CHOLESTEROL (test code = 0) 48 MG/DL >39 CALC LDL CHOL (test code = 7) 192 MG/DL <100 H NOTE: CALCULATED LDL IS BASED ON LESLY-GRECO METHOD WHICHINCLUDES ADJUSTABLE TRIGLYCERIDE:VLDL CHOLESTEROL RATIO.THIS FACTOR VARIES BY MEASURED TRIGLYCERIDE AND NON-HDLCHOLESTEROL CONCENTRATIONS WITH INCREASED CALCULATED LDL SEENIN HIGHER TRIGLYCERIDE OR LOWER NON-HDL SPECIMENS. FOR MOREINFORMATION, SEE CLIENT ANNOUNCEMENT AT [email or web address] /[email or web address] RISK RATIO LDL/HDL (test code = 2238) 4.00 RATIO <3.22 H UNLESS OTHERW ISE INDICATED, ALL TESTING PERFORMED AT [facility] [address] [facility] [place] [address] VEHICLE COST ENGINEER: DERRICK FISHER M.D. CLIA NUMBER [id number] [facility] [place]. [id number] TSH, THIRD [id number] 06:30:05* Test Item Value Reference Range Interpretation Comme nts TSH, THIRD GENERATION (test code = 2821) 3.020 UIU/ML 0.400-4.100 ALBUMIN/CREATININE RATIO, URINE, [id number] 05:34:14* Test Item Value Reference Range Interpretation Comme nts CREATININE, URINE, CONC. (test code = 2072) 186.6 MG/DL NOT ESTAB ALBUMIN, URINE, RANDOM (test code = 58925) 47.2 MG/DL NOT ESTAB CALC ALBUMIN/CREAT, RND (test code = 16229) 253 MG/G <30 H Note: Albumin/Creatinine ratio reference interval reflects ADA and NKF guidelines. HEMOGLOBIN [id number] 05:00:36* Test Item Value Reference Range Interpretation Comme nts HEMOGLOBIN A1c (test code = 24953) 5.8 % 4.2-5.6 H CITIZEN OF [employer] GUIDELINES FOR HGB A1C: PREDIABETES/INCREASED RISK . . . . . . . 5.7-6.4% DIAGNOSIS OF DIABETES . . . . . . . . . >=6.5% WITH CONFIRMATION OR APPROPRIATE SYMPTOMS NOTE: ASSAY MAY BE AFFECTED BY HEMOGLOBINOPATHIES (SICKLE CELL ANEMIA, S-C DISEASE, OTHERS) OR ARTIFICIALLY LOWERED BY DECREASED RED CELL SURVIVAL (HEMOLYTIC ANEMIAS, BLOOD LOSS, ETC.). CONSIDER ALTERNATE TESTING OR LABORATORY CONSULTATION. CULTURE, [id number] 10:17:56SPECIMEN NUMBER: [id number] CULTURE, URINE SPECIMEN NUMBER: [id number] SPECIMEN COMMENT: URINE SOURCE: URINE REPORT STATUS: FINAL ISOLATE NUMBER 1: IDENTIFICATION: 04/14/2022 10-50,000 CFU/ML BETA-STREP TOCOCCUS GROUP B ADDITIONAL OBSERVATIONS: PENICILLIN AND AMPICILLIN ARE DRUGS OF CHOICE FOR TREATMENT OF B-HEMOLYTIC STREPTOCOCCAL INFECTIONS. SUSCEPTIBILITY TESTING OF PENICILLIN AND OTHER B-LACTAMSAPPROVED BY THE US FOOD AND DRUG ADMINISTRATION FOR TREATMENT OF B-HEMOLYTIC STREPTOCOCCAL INFECTIONS NEED NOT BE PERFORMED ROUTINELY. ADDITIONAL OBSERVATIONS: 04/14/2022 <10,000 CFU/ML UROGENITALFLORA PRESENT NO COMMON PATHOGENSCULTURE, [id number] 00:00:00* Test Item Value Reference Range Interpretation Comme nts CULTURE, URINE (test code = 57695) SPECIMEN NUMBER: [id number] CULTURE, [id number] 00:00:00* Test Item Value Reference Range Interpretation Comme nts CULTURE, URINE (test code = 26757) SPECIMEN NUMBER: [id number] VAGINAL PATHOGENS DNA [id number] 15:15:22* Test Item Value Reference Range Interpretation Comme nts MARLENE SPECIES (test code = 39541) NEGATIVE NEGATIVE G. VAGINALIS (test code = 39130) NEGATIVE NEGATIVE T. VAGINALIS (test code = 60619) NEGATIVE NEGATIVE UNLESS OTHERWISE INDICATED, ALL TESTING PERFORMED [facility] [address] [place], [place] [address] VEHICLE [employer]ST ENGINEER: CECILIA CORNELL M.D. CLIA NUMBER [id number] [place]. [id number] VAGINAL PATHOGENS DNA [id number] 00:00:00* Test Item Value Reference Range Interpretation Comme nts MARLENE SPECIES (test code = 30112) NEGATIVE G. VAGINALIS (test code = 72468) NEGATIVE T. VAGINALIS (test code = 33590) NEGATIVE VAGINAL PATHOGENS DNA [id number] 00:00:00* Test Item Value Reference Range Interpretation Comme nts MARLENE SPECIES (test code = 53159) NEGATIVE G. VAGINALIS (test code = 48562) NEGATIVE T. VAGINALIS (test code = 74360) NEGATIVE NOTE:2022-03-27 06:01:43* Test Item Value Reference Range Interpretation Comme nts NOTE: (test code = 998) (NOTE) IN ACCORDANCE [facility] FEDERAL GUIDELINES REQUIRING ALL VERBAL REQUESTS FOR LABORATORY TESTS TO BE ACCOMPANIED BY WRITTEN AUTHORIZATION WITHIN 30 DAYS OF THIS REQUEST, PLEASE SIGN BELOW AND RETURN A COPY OF THIS REPORT BY FAX TO THE LABORATORY SCANNING DEPARTMENT AT [phone]. PHYSICIAN'S SIGNATURE DATE UNLESS OTHERWISE INDICATED, ALL TESTING PERFORMED [facility] [employer] [address] [place] [id number] VEHICLE COST ENGINEER: CECILIA CORNELL M.D. CLIA NUMBER [id number] [place]. [id number] TSH, THIRD [id number] 00:28:21* Test Item Value Reference Range Interpretation Comme nts TSH, THIRD GENERATION (test code = 2821) 3.200 UIU/ML 0.400-4.100 TSH, THIRD GENERATION [ADDED]2022-03-27 00:00:00* Test Item Value Reference Range Interpretation Comme nts TSH, THIRD GENERATION (test code = 2821) 3.200 UIU/ML TSH, THIRD GENERATION [ADDED]2022-03-27 00:00:00* Test Item Value Reference Range Interpretation Comme nts TSH, THIRD GENERATION (test code = 2821) 3.200 UIU/ML TSH, THIRD GENERATION [ADDED]2022-03-27 00:00:00* Test Item Value Reference Range Interpretation Comme nts TSH, THIRD GENERATION (test code = 2821) 3.200 UIU/ML NOTE: [ADDED]2022-03-27 00:00:00* Test Item Value Reference Range Interpretation Comme nts NOTE: (test code = 998) (NOTE) COMPREHENSIVE METABOLIC [id number] 04:40:28* Test Item Value Reference Range Interpretation Comme nts GLUCOSE (test code = 2217) 93 MG/DL 70-99 BUN (test code = 2207) 15 MG/DL 6-20 CREATININE (test code = 2213) 1.34 MG/DL 0.60-1.30 H eGFR (2020 CKD-EPI) (test code = 14967) 51 ML/MIN/1.73 >60 L The NKF-ASN Taskforce recommends use of Cystatin C to confirm eGFR inadults at risk for CKD. [facility] offers eGFR with Cystatin C-Creatinineusing the 2020 CKD-EPI eGFR_creat-cystat equation (order code 3057) toincrease the accuracy of estimated GFR. For more information, contactyour accounts payable representative or see announcement [email or web address] CALC BUN/CREAT (test code = 2234) 11 RATIO 6-28 SODIUM (test code = 2230) 138 MEQ/L 133-146 POTASSIUM (test code = 8) 4.6 MEQ/L 3.5-5.4 CHLORIDE (test code = 221) 100 MEQ/L 95-107 CARBON DIOXIDE (test code = 220) 23 MEQ/L 19-31 CALCIUM (test code = 2208) 9.8 MG/DL 8.5-10.5 PROTEIN, TOTAL (test code = 2228) 7.6 G/DL 6.1-8.3 ALBUMIN (test code = 2200) 4.7 G/DL 3.5-5.2 CALC GLOBULIN (test code = 224) 2.9 G/DL 1.9-3.7 CALC A/G RATIO (test code = 2234) 1.6 RATIO 1.0-2.6 BILIRUBIN, TOTAL (test code = 2207) 0.9 MG/DL See_Comment [Automated me ssage] The system which generated this result transmitted reference range: <=1.2. The reference range was not used to interpret this result as normal/abnormal. ALKALINE PHOSPHATASE (test code = 2204) 99 U/L 40-113 AST (test code = 2218) 23 U/L 9-40 ALT (test code = 2219) 25 U/L 5-40 LIPID [id number] 04:40:28* Test Item Value Reference Range Interpretation Comme nts CHOLESTEROL (test code = 0) 246 MG/DL <200 H TRIGLYCERIDES (test code = 2232) 325 MG/DL <150 H HDL CHOLESTEROL (test code = 0) 43 MG/DL >39 CALC LDL CHOL (test code = 7) 153 MG/DL <100 H NOTE: CALCULATED LDL IS BASED ON LESLY-GRECO METHOD WHICHINCLUDES ADJUSTABLE TRIGLYCERIDE:VLDL CHOLESTEROL RATIO.THIS FACTOR VARIES BY MEASURED TRIGLYCERIDE AND NON-HDLCHOLESTEROL CONCENTRATIONS WITH INCREASED CALCULATED LDL SEENIN HIGHER TRIGLYCERIDE OR LOWER NON-HDL SPECIMENS. FOR MOREINFORMATION, SEE CLIENT ANNOUNCEMENT AT [email or web address] RISK RATIO LDL/HDL (test code = 2238) 3.56 RATIO <3.22 H UNLESS OTHERW ISE INDICATED, ALL TESTING PERFORMED [facility] [address] [place] [address] VEHICLE COST ENGINEER: CECILIA CORNELL M.D. CLIA NUMBER [id number] [facility] [place]. [id number] HEMOGLOBIN [id number] 03:43:43* Test Item Value Reference Range Interpretation Comme nts HEMOGLOBIN A1c (test code = 39316) 5.7 % 4.2-5.6 H CBC W/AUTO DIFF WITH [id number] 03:13:23* Test Item Value Reference Range Interpretation Comme nts WBC (test code = 1001) 8.1 K/UL 3.5-11.0 RBC (test code = 1002) 4.36 M/UL 3.80-5.40 HEMOGLOBIN (test code = 1003) 13.7 G/DL 11.5-15.5 HEMATOCRIT (test code = 1004) 41.0 % 34.0-45.0 MCV (test code = 1005) 94.0 fL 80.0-99.0 MCH (test code = 1006) 31.4 PG 25.0-33.0 MCHC (test code = 1007) 33.4 G/DL 31.0-36.0 RDW (test code = 1038) 12.2 % 11.5-15.0 NEUTROPHILS (test code = 1008) 50.0 % LYMPHOCYTES (test code = 1010) 38.9 % MONOCYTES (test code = 1011) 8.5 % EOSINOPHILS (test code = 1012) 1.7 % BASOPHILS (test code = 1013) 0.5 % IMMATURE GRANULOCYTES (test code = 1036) 0.4 % NUCLEATED RBCS (test code = 1065) 0.0 /100 WBC'S See_Comment [Automated messa ge] The system which generated this result transmitted reference range: 0.0. The reference range was not used to interpret this result as normal/abnormal. PLATELET COUNT (test code = 1015) 303 K/UL 130-400 ABSOLUTE NEUTROPHILS (test code = 1066) 4.06 K/UL 1.50-7.50 ABSOLUTE LYMPHOCYTES (test code = 1067) 3.16 K/UL 1.00-4.00 ABSOLUTE MONOCYTES (test code = 1068) 0.69 K/UL 0.20-1.00 ABSOLUTE EOSINOPHILS (test code = 1040) 0.14 K/UL 0.00-0.50 ABSOLUTE BASOPHILS (test code = 1069) 0.04 K/UL 0.00-0.20 ABS IMMATURE GRANULOCYTES (test code = 1020) 0.03 K/UL 0.00-0.10 ABS NUCLEATED RBCS (test code = 90587) 0.00 K/UL 0.00-0.11 TSH, THIRD [id number] 06:19:29* Test Item Value Reference Range Interpretation Comme nts TSH, THIRD GENERATION (test code = 2821) 1.070 UIU/ML 0.400-4.100 COMPREHENSIVE METABOLIC [id number] 05:14:19* Test Item Value Reference Range Interpretation Comme nts GLUCOSE (test code = 2217) 96 MG/DL 70-99 BUN (test code = 2208) 17 MG/DL 6-20 CREATININE (test code = 2214) 1.20 MG/DL 0.60-1.30 eGFR (2020 CKD-EPI) (test code = ) 58 ML/MIN/1.73 >60 L CALC BUN/CREAT (test code = 2234) 14 RATIO 6-28 SODIUM (test code = 2230) 139 MEQ/L 133-146 POTASSIUM (test code = 2227) 4.7 MEQ/L 3.5-5.4 CHLORIDE (test code = 2214) 99 MEQ/L 95-107 CARBON DIOXIDE (test code = 2205) 22 MEQ/L 19-31 CALCIUM (test code = 2208) 10.2 MG/DL 8.5-10.5 PROTEIN, TOTAL (test code = 2228) 8.3 G/DL 6.1-8.3 ALBUMIN (test code = 2200) 4.9 G/DL 3.5-5.2 CALC GLOBULIN (test code = 2239) 3.4 G/DL 1.9-3.7 CALC A/G RATIO (test code = 2233) 1.4 RATIO 1.0-2.6 BILIRUBIN, TOTAL (test code = 2206) 0.7 MG/DL See_Comment [Automated me ssage] The system which generated this result transmitted reference range: <=1.2. The reference range was not used to interpret this result as normal/abnormal. ALKALINE PHOSPHATASE (test code = 2203) 115 U/L 40-113 H AST (test code = 2217) 25 U/L 9-40 ALT (test code = 2218) 21 U/L 5-40 LIPID [id number] 05:14:19* Test Item Value Reference Range Interpretation Comme nts CHOLESTEROL (test code = 221) 281 MG/DL <200 H TRIGLYCERIDES (test code = 223) 178 MG/DL <150 H HDL CHOLESTEROL (test code = 222) 61 MG/DL >39 CALC LDL CHOL (test code = 223) 185 MG/DL <100 H NOTE: CALCULATED LDL IS BASED ON LESLY-GRECO METHOD WHICHINCLUDES ADJUSTABLE TRIGLYCERIDE:VLDL CHOLESTEROL RATIO.THIS FACTOR VARIES BY MEASURED TRIGLYCERIDE AND NON-HDLCHOLESTEROL CONCENTRATIONS WITH INCREASED CALCULATED LDL SEENIN HIGHER TRIGLYCERIDE OR LOWER NON-HDL SPECIMENS. FOR MOREINFORMATION, SEE CLIENT ANNOUNCEMENT AT [email or web address] RISK RATIO LDL/HDL (test code = 2238) 3.03 RATIO <3.22 HEMOGLOBIN [id number] 02:42:04* Test Item Value Reference Range Interpretation Comme nts HEMOGLOBIN A1c (test code = 28016) 5.5 % 4.2-5.6 UNLESS OTHERWISE INDICATED, ALL TESTING PERFORMED [facility] [address] [place] [address] VEHICLE COST ENGINEER: CECILIA CORNELL M.D. CLIA NUMBER [id number] [facility] [place]. [id number] LIPID [id number] 00:00:00* Test Item Value Reference Range Interpretation Comme nts CHOLESTEROL (test code = 2210) 281 MG/DL TRIGLYCERIDES (test code = 2232) 178 MG/DL HDL CHOLESTEROL (test code = 2220) 61 MG/DL CALC LDL CHOL (test code = 2237) 185 MG/DL RISK RATIO LDL/HDL (test cod e = 2238) 3.03 RATIO LIPID [id number] 00:00:00* Test Item Value Reference Range Interpretation Comme nts CHOLESTEROL (test code = 2210) 281 MG/DL TRIGLYCERIDES (test code = 2232) 178 MG/DL HDL CHOLESTEROL (test code = 2220) 61 MG/DL CALC LDL CHOL (test code = 2237) 185 MG/DL RISK RATIO LDL/HDL (test cod e = 2238) 3.03 RATIO [id number] 00:00:00* Test Item Value Reference Range Interpretation Comme nts TSH, THIRD GENERATION (test code = 2821) 1.070 UIU/ML [id number] 00:00:00* Test Item Value Reference Range Interpretation Comme nts TSH, THIRD GENERATION (test code = 2821) 1.070 UIU/ML [id number] 00:00:00* Test Item Value Reference Range Interpretation Comme nts TSH, THIRD GENERATION (test code = 2821) 1.070 UIU/ML HEMOGLOBIN [id number] 00:00:00* Test Item Value Reference Range Interpretation Comme nts HEMOGLOBIN A1c (test code = 60339) 5.5 % HEMOGLOBIN [id number] 00:00:00* Test Item Value Reference Range Interpretation Comme nts HEMOGLOBIN A1c (test code = 93845) 5.5 % HEMOGLOBIN [id number] 00:00:00* Test Item Value Reference Range Interpretation Comme nts HEMOGLOBIN A1c (test code = 04730) 5.5 % COMPREHENSIVE METABOLIC [id number] 00:00:00* Test Item Value Reference Range Interpretation Comme nts GLUCOSE (test code = 2217) 96 MG/DL BUN (test code = 2208) 17 MG/DL CREATININE (test code = 2214) 1.20 MG/DL eGFR (2020 CKD-EPI) (test co de = 61741) 58 ML/MIN/1.73 CALC BUN/CREAT (test code = 2235) 14 RATIO SODIUM (test code = 2231) 139 MEQ/L POTASSIUM (test code = 2228) 4.7 MEQ/L CHLORIDE (test code = 2215) 99 MEQ/L CARBON DIOXIDE (test code = 2206) 22 MEQ/L CALCIUM (test code = 2209) 10.2 MG/DL PROTEIN, TOTAL (test code = 2229) 8.3 G/DL ALBUMIN (test code = 2201) 4.9 G/DL CALC GLOBULIN (test code = 2240) 3.4 G/DL CALC A/G RATIO (test code = 2234) 1.4 RATIO BILIRUBIN, TOTAL (test code = 2207) 0.7 MG/DL ALKALINE PHOSPHATASE (test code = 2204) 115 U/L AST (test code = 2218) 25 U/L ALT (test code = 2219) 21 U/L COMPREHENSIVE METABOLIC [id number] 00:00:00* Test Item Value Reference Range Interpretation Comme nts GLUCOSE (test code = 2217) 96 MG/DL BUN (test code = 2208) 17 MG/DL CREATININE (test code = 2214) 1.20 MG/DL eGFR (2020 CKD-EPI) (test co de = 45256) 58 ML/MIN/1.73 CALC BUN/CREAT (test code = 2235) 14 RATIO SODIUM (test code = 2231) 139 MEQ/L POTASSIUM (test code = 2228) 4.7 MEQ/L CHLORIDE (test code = 2215) 99 MEQ/L CARBON DIOXIDE (test code = 2206) 22 MEQ/L CALCIUM (test code = 2209) 10.2 MG/DL PROTEIN, TOTAL (test code = 2229) 8.3 G/DL ALBUMIN (test code = 2201) 4.9 G/DL CALC GLOBULIN (test code = 2240) 3.4 G/DL CALC A/G RATIO (test code = 2234) 1.4 RATIO BILIRUBIN, TOTAL (test code = 2207) 0.7 MG/DL ALKALINE PHOSPHATASE (test code = 2204) 115 U/L AST (test code = 2218) 25 U/L ALT (test code = 2219) 21 U/L LIPID [id number] 00:00:00* Test Item Value Reference Range Interpretation Comme nts CHOLESTEROL (test code = 2210) 281 MG/DL TRIGLYCERIDES (test code = 2232) 178 MG/DL HDL CHOLESTEROL (test code = 2220) 61 MG/DL CALC LDL CHOL (test code = 2237) 185 MG/DL RISK RATIO LDL/HDL (test cod e = 2238) 3.03 RATIO LIPID [id number] 00:00:00* Test Item Value Reference Range Interpretation Comme nts CHOLESTEROL (test code = 2210) 281 MG/DL TRIGLYCERIDES (test code = 2232) 178 MG/DL HDL CHOLESTEROL (test code = 2220) 61 MG/DL CALC LDL CHOL (test code = 2237) 185 MG/DL RISK RATIO LDL/HDL (test cod e = 2238) 3.03 RATIO [id number] 00:00:00* Test Item Value Reference Range Interpretation Comme nts TSH, THIRD GENERATION (test code = 2821) 1.070 UIU/ML [id number] 00:00:00* Test Item Value Reference Range Interpretation Comme nts TSH, THIRD GENERATION (test code = 2821) 1.070 UIU/ML [id number] 00:00:00* Test Item Value Reference Range Interpretation Comme nts TSH, THIRD GENERATION (test code = 2821) 1.070 UIU/ML HEMOGLOBIN [id number] 00:00:00* Test Item Value Reference Range Interpretation Comme nts HEMOGLOBIN A1c (test code = 67127) 5.5 % HEMOGLOBIN [id number] 00:00:00* Test Item Value Reference Range Interpretation Comme nts HEMOGLOBIN A1c (test code = 48929) 5.5 % HEMOGLOBIN [id number] 00:00:00* Test Item Value Reference Range Interpretation Comme nts HEMOGLOBIN A1c (test code = 58022) 5.5 % COMPREHENSIVE METABOLIC [id number] 00:00:00* Test Item Value Reference Range Interpretation Comme nts GLUCOSE (test code = 2217) 96 MG/DL BUN (test code = 2208) 17 MG/DL CREATININE (test code = 2214) 1.20 MG/DL eGFR (2020 CKD-EPI) (test co de = 54221) 58 ML/MIN/1.73 CALC BUN/CREAT (test code = 2235) 14 RATIO SODIUM (test code = 2231) 139 MEQ/L POTASSIUM (test code = 2228) 4.7 MEQ/L CHLORIDE (test code = 2215) 99 MEQ/L CARBON DIOXIDE (test code = 2206) 22 MEQ/L CALCIUM (test code = 2209) 10.2 MG/DL PROTEIN, TOTAL (test code = 2229) 8.3 G/DL ALBUMIN (test code = 2201) 4.9 G/DL CALC GLOBULIN (test code = 2240) 3.4 G/DL CALC A/G RATIO (test code = 2234) 1.4 RATIO BILIRUBIN, TOTAL (test code = 2207) 0.7 MG/DL ALKALINE PHOSPHATASE (test code = 2204) 115 U/L AST (test code = 2218) 25 U/L ALT (test code = 2219) 21 U/L COMPREHENSIVE METABOLIC [id number] 00:00:00* Test Item Value Reference Range Interpretation Comme nts GLUCOSE (test code = 2217) 96 MG/DL BUN (test code = 2208) 17 MG/DL CREATININE (test code = 2214) 1.20 MG/DL eGFR (2020 CKD-EPI) (test co de = 48177) 58 ML/MIN/1.73 CALC BUN/CREAT (test code = 2235) 14 RATIO SODIUM (test code = 2231) 139 MEQ/L POTASSIUM (test code = 2228) 4.7 MEQ/L CHLORIDE (test code = 2215) 99 MEQ/L CARBON DIOXIDE (test code = 2206) 22 MEQ/L CALCIUM (test code = 2209) 10.2 MG/DL PROTEIN, TOTAL (test code = 2229) 8.3 G/DL ALBUMIN (test code = 2201) 4.9 G/DL CALC GLOBULIN (test code = 2240) 3.4 G/DL CALC A/G RATIO (test code = 2234) 1.4 RATIO BILIRUBIN, TOTAL (test code = 2207) 0.7 MG/DL ALKALINE PHOSPHATASE (test code = 2204) 115 U/L AST (test code = 2218) 25 U/L ALT (test code = 2219) 21 U/L CBC W/AUTO DIFF WITH [id number] 06:15:32* Test Item Value Reference Range Interpretation Comme nts WBC (test code = 1001) 5.4 K/UL 3.5-11.0 RBC (test code = 1002) 4.29 M/UL 3.80-5.40 HEMOGLOBIN (test code = 1003) 13.5 G/DL 11.5-15.5 HEMATOCRIT (test code = 1004) 40.9 % 34.0-45.0 MCV (test code = 1005) 95.3 fL 80.0-99.0 MCH (test code = 1006) 31.5 PG 25.0-33.0 MCHC (test code = 1007) 33.0 G/DL 31.0-36.0 RDW (test code = 1038) 11.7 % 11.5-15.0 NEUTROPHILS (test code = 1008) 45.1 % LYMPHOCYTES (test code = 1010) 43.3 % MONOCYTES (test code = 1011) 8.2 % EOSINOPHILS (test code = 1012) 2.4 % BASOPHILS (test code = 1013) 0.6 % IMMATURE GRANYLOCYTES (test code = 1036) 0.4 % NUCLEATED RBCS (test code = 1065) 0.0 /100 WBC'S See_Comment [Automated [employer]] The system which generated this result transmitted reference range: 0.0. The reference range was not used to interpret this result as normal/abnormal. PLATELET COUNT (test code = 1015) 280 K/UL 130-400 ABSOLUTE NEUTROPHILS (test code = 1066) 2.43 K/UL 1.50-7.50 ABSOLUTE LYMPHOCYTES (test code = 1067) 2.33 K/UL 1.00-4.00 ABSOLUTE MONOCYTES (test code = 1068) 0.44 K/UL 0.20-1.00 ABSOLUTE EOSINOPHILS (test code = 1040) 0.13 K/UL 0.00-0.50 ABSOLUTE BASOPHILS (test code = 1069) 0.03 K/UL 0.00-0.20 ABS IMMATURE GRANULOCYTES (test code = 1020) 0.02 K/UL 0.00-0.10 ABS NUCLEATED RBCS (test code = 46156) 0.00 K/UL 0.00-0.11 ALBUMIN, URINE, [id number] 05:20:38* Test Item Value Reference Range Interpretation Comme nts ALBUMIN, URINE, RANDOM (test code = 18185) 4.6 MG/DL NOT ESTAB UNLESS OTHERWISE INDICATED, ALL TESTING PERFORMED [facility] [address] [place] [address] VEHICLE COST ENGINEER: CECILIA CORNELL M.D. CLIA NUMBER [id number] [facility] [place]. [id number] LIPID [id number] 04:45:32* Test Item Value Reference Range Interpretation Comme nts CHOLESTEROL (test code = 2210) 243 MG/DL <200 H TRIGLYCERIDES (test code = 2232) 195 MG/DL <150 H HDL CHOLESTEROL (test code = 2220) 59 MG/DL >39 CALC LDL CHOL (test code = 2237) 150 MG/DL <100 H NOTE: CALCULATED LDL IS BASED ON LESLY-GRECO METHOD WHICHINCLUDES ADJUSTABLE TRIGLYCERIDE:VLDL CHOLESTEROL RATIO.THIS FACTOR VARIES BY MEASURED TRIGLYCERIDE AND NON-HDLCHOLESTEROL CONCENTRATIONS WITH INCREASED CALCULATED LDL SEENIN HIGHER TRIGLYCERIDE OR LOWER NON-HDL SPECIMENS. FOR MOREINFORMATION, SEE CLIENT ANNOUNCEMENT AT [email or web address] RISK RATIO LDL/HDL (test code = 2238) 2.54 RATIO <3.22 COMPREHENSIVE METABOLIC [id number] 04:45:32* Test Item Value Reference Range Interpretation Comme nts GLUCOSE (test code = 2217) 100 MG/DL 70-99 H BUN (test code = 2208) 16 MG/DL 6-20 CREATININE (test code = 2214) 1.15 MG/DL 0.60-1.30 eGFR (2020 CKD-EPI) (test code = 21614) 62 ML/MIN/1.73 >60 CALC BUN/CREAT (test code = 2235) 14 RATIO 6-28 SODIUM (test code = 2231) 138 MEQ/L 133-146 POTASSIUM (test code = 2228) 4.2 MEQ/L 3.5-5.4 CHLORIDE (test code = 2215) 98 MEQ/L 95-107 CARBON DIOXIDE (test code = 2206) 25 MEQ/L 19-31 CALCIUM (test code = 2209) 10.0 MG/DL 8.5-10.5 PROTEIN, TOTAL (test code = 2229) 8.1 G/DL 6.1-8.3 ALBUMIN (test code = 2201) 4.7 G/DL 3.5-5.2 CALC GLOBULIN (test code = 2240) 3.4 G/DL 1.9-3.7 CALC A/G RATIO (test code = 2234) 1.4 RATIO 1.0-2.6 BILIRUBIN, TOTAL (test code = 2207) 0.6 MG/DL See_Comment [Automated me ssage] The system which generated this result transmitted reference range: <=1.2. The reference range was not used to interpret this result as normal/abnormal. ALKALINE PHOSPHATASE (test code = 2204) 106 U/L 40-112 AST (test code = 2218) 20 U/L 9-40 ALT (test code = 2219) 14 U/L 5-40 LIPID [id number] 00:00:00* Test Item Value Reference Range Interpretation Comme nts CHOLESTEROL (test code = 2210) 243 MG/DL TRIGLYCERIDES (test code = 2232) 195 MG/DL HDL CHOLESTEROL (test code = 2220) 59 MG/DL CALC LDL CHOL (test code = 2237) 150 MG/DL RISK RATIO LDL/HDL (test cod e = 2238) 2.54 RATIO LIPID [id number] 00:00:00* Test Item Value Reference Range Interpretation Comme nts CHOLESTEROL (test code = 2210) 243 MG/DL TRIGLYCERIDES (test code = 2232) 195 MG/DL HDL CHOLESTEROL (test code = 2220) 59 MG/DL CALC LDL CHOL (test code = 2237) 150 MG/DL RISK RATIO LDL/HDL (test cod e = 2238) 2.54 RATIO COMPREHENSIVE METABOLIC [id number] 00:00:00* Test Item Value Reference Range Interpretation Comme nts GLUCOSE (test code = 2217) 100 MG/DL BUN (test code = 2208) 16 MG/DL CREATININE (test code = 2214) 1.15 MG/DL eGFR (2020 CKD-EPI) (test co de = 64634) 62 ML/MIN/1.73 CALC BUN/CREAT (test code = 2235) 14 RATIO SODIUM (test code = 2231) 138 MEQ/L POTASSIUM (test code = 2228) 4.2 MEQ/L CHLORIDE (test code = 2215) 98 MEQ/L CARBON DIOXIDE (test code = 2206) 25 MEQ/L CALCIUM (test code = 2209) 10.0 MG/DL PROTEIN, TOTAL (test code = 2229) 8.1 G/DL ALBUMIN (test code = 2201) 4.7 G/DL CALC GLOBULIN (test code = 2240) 3.4 G/DL CALC A/G RATIO (test code = 2234) 1.4 RATIO BILIRUBIN, TOTAL (test code = 2207) 0.6 MG/DL ALKALINE PHOSPHATASE (test code = 2204) 106 U/L AST (test code = 2218) 20 U/L ALT (test code = 2219) 14 U/L COMPREHENSIVE METABOLIC [id number] 00:00:00* Test Item Value Reference Range Interpretation Comme nts GLUCOSE (test code = 2217) 100 MG/DL BUN (test code = 2208) 16 MG/DL CREATININE (test code = 2214) 1.15 MG/DL eGFR (2020 CKD-EPI) (test co de = 32826) 62 ML/MIN/1.73 CALC BUN/CREAT (test code = 2235) 14 RATIO SODIUM (test code = 2231) 138 MEQ/L POTASSIUM (test code = 2228) 4.2 MEQ/L CHLORIDE (test code = 2215) 98 MEQ/L CARBON DIOXIDE (test code = 2206) 25 MEQ/L CALCIUM (test code = 2209) 10.0 MG/DL PROTEIN, TOTAL (test code = 2229) 8.1 G/DL ALBUMIN (test code = 2201) 4.7 G/DL CALC GLOBULIN (test code = 2240) 3.4 G/DL CALC A/G RATIO (test code = 2234) 1.4 RATIO BILIRUBIN, TOTAL (test code = 2207) 0.6 MG/DL ALKALINE PHOSPHATASE (test code = 2204) 106 U/L AST (test code = 2218) 20 U/L ALT (test code = 2219) 14 U/L MICROALBUMIN, [id number] 00:00:00* Test Item Value Reference Range Interpretation Comme nts ALBUMIN, URINE, RANDOM (test code = 10649) 4.6 MG/DL MICROALBUMIN, [id number] 00:00:00* Test Item Value Reference Range Interpretation Comme nts ALBUMIN, URINE, RANDOM (test code = 25980) 4.6 MG/DL CBC W/AUTO [id number] 00:00:00* Test Item Value Reference Range Interpretation Comme nts WBC (test code = 1001) 5.4 K/UL [...] = 1013) 0.6 % IMMATURE GRANYLOCYTES (test code = 1036) 0.4 % NUCLEATED RBCS (test code = 1065) 0.0 /100WBC'S PLATELET COUNT (test code = 1015) 280 K/UL ABSOLUTE NEUTROPHILS (test c ode = 1066) 2.43 K/UL ABSOLUTE LYMPHOCYTES (test c ode = 1067) 2.33 K/UL ABSOLUTE MONOCYTES (test cod e = 1068) 0.44 K/UL ABSOLUTE EOSINOPHILS (test c ode = 1040) 0.13 K/UL ABSOLUTE BASOPHILS (test cod e = 1069) 0.03 K/UL ABS IMMATURE GRANULOCYTES (t est code = 1020) 0.02 K/UL ABS NUCLEATED RBCS (test cod e = 77496) 0.00 K/UL CBC W/AUTO [id number] 00:00:00* Test Item Value Reference Range Interpretation Comme nts WBC (test code = 1001) 5.4 K/UL [...] = 1013) 0.6 % IMMATURE GRANYLOCYTES (test code = 1036) 0.4 % NUCLEATED RBCS (test code = 1065) 0.0 /100WBC'S PLATELET COUNT (test code = 1015) 280 K/UL ABSOLUTE NEUTROPHILS (test c ode = 1066) 2.43 K/UL ABSOLUTE LYMPHOCYTES (test c ode = 1067) 2.33 K/UL ABSOLUTE MONOCYTES (test cod e = 1068) 0.44 K/UL ABSOLUTE EOSINOPHILS (test c ode = 1040) 0.13 K/UL ABSOLUTE BASOPHILS (test cod e = 1069) 0.03 K/UL ABS IMMATURE GRANULOCYTES (t est code = 1020) 0.02 K/UL ABS NUCLEATED RBCS (test cod e = 78513) 0.00 K/UL CBC W/AUTO [id number] 00:00:00* Test Item Value Reference Range Interpretation Comme nts WBC (test code = 1001) 5.4 K/UL [...] = 1013) 0.6 % IMMATURE GRANYLOCYTES (test code = 1036) 0.4 % NUCLEATED RBCS (test code = 1065) 0.0 /100WBC'S PLATELET COUNT (test code = 1015) 280 K/UL ABSOLUTE NEUTROPHILS (test c ode = 1066) 2.43 K/UL ABSOLUTE LYMPHOCYTES (test c ode = 1067) 2.33 K/UL ABSOLUTE MONOCYTES (test cod e = 1068) 0.44 K/UL ABSOLUTE EOSINOPHILS (test c ode = 1040) 0.13 K/UL ABSOLUTE BASOPHILS (test cod e = 1069) 0.03 K/UL ABS IMMATURE GRANULOCYTES (t est code = 1020) 0.02 K/UL ABS NUCLEATED RBCS (test cod e = 73751) 0.00 K/UL LIPID [id number] 00:00:00* Test Item Value Reference Range Interpretation Comme nts CHOLESTEROL (test code = 2210) 243 MG/DL TRIGLYCERIDES (test code = 2232) 195 MG/DL HDL CHOLESTEROL (test code = 2220) 59 MG/DL CALC LDL CHOL (test code = 2237) 150 MG/DL RISK RATIO LDL/HDL (test cod e = 2238) 2.54 RATIO LIPID [id number] 00:00:00* Test Item Value Reference Range Interpretation Comme nts CHOLESTEROL (test code = 2210) 243 MG/DL TRIGLYCERIDES (test code = 2232) 195 MG/DL HDL CHOLESTEROL (test code = 2220) 59 MG/DL CALC LDL CHOL (test code = 2237) 150 MG/DL RISK RATIO LDL/HDL (test cod e = 2238) 2.54 RATIO COMPREHENSIVE METABOLIC [id number] 00:00:00* Test Item Value Reference Range Interpretation Comme nts GLUCOSE (test code = 2217) 100 MG/DL BUN (test code = 2208) 16 MG/DL CREATININE (test code = 2214) 1.15 MG/DL eGFR (2020 CKD-EPI) (test co de = 94508) 62 ML/MIN/1.73 CALC BUN/CREAT (test code = 2235) 14 RATIO SODIUM (test code = 2231) 138 MEQ/L POTASSIUM (test code = 2228) 4.2 MEQ/L CHLORIDE (test code = 2215) 98 MEQ/L CARBON DIOXIDE (test code = 2206) 25 MEQ/L CALCIUM (test code = 2209) 10.0 MG/DL PROTEIN, TOTAL (test code = 2229) 8.1 G/DL ALBUMIN (test code = 2201) 4.7 G/DL CALC GLOBULIN (test code = 2240) 3.4 G/DL CALC A/G RATIO (test code = 2234) 1.4 RATIO BILIRUBIN, TOTAL (test code = 2207) 0.6 MG/DL ALKALINE PHOSPHATASE (test code = 2204) 106 U/L AST (test code = 2218) 20 U/L ALT (test code = 2219) 14 U/L COMPREHENSIVE METABOLIC [id number] 00:00:00* Test Item Value Reference Range Interpretation Comme nts GLUCOSE (test code = 2217) 100 MG/DL BUN (test code = 2208) 16 MG/DL CREATININE (test code = 2214) 1.15 MG/DL eGFR (2020 CKD-EPI) (test co de = 42997) 62 ML/MIN/1.73 CALC BUN/CREAT (test code = 2235) 14 RATIO SODIUM (test code = 2231) 138 MEQ/L POTASSIUM (test code = 2228) 4.2 MEQ/L CHLORIDE (test code = 2215) 98 MEQ/L CARBON DIOXIDE (test code = 2206) 25 MEQ/L CALCIUM (test code = 2209) 10.0 MG/DL PROTEIN, TOTAL (test code = 2229) 8.1 G/DL ALBUMIN (test code = 2201) 4.7 G/DL CALC GLOBULIN (test code = 2240) 3.4 G/DL CALC A/G RATIO (test code = 2234) 1.4 RATIO BILIRUBIN, TOTAL (test code = 2207) 0.6 MG/DL ALKALINE PHOSPHATASE (test code = 2204) 106 U/L AST (test code = 2218) 20 U/L ALT (test code = 2219) 14 U/L MICROALBUMIN, [id number] 00:00:00* Test Item Value Reference Range Interpretation Comme nts ALBUMIN, URINE, RANDOM (test code = 03437) 4.6 MG/DL MICROALBUMIN, [id number] 00:00:00* Test Item Value Reference Range Interpretation Comme nts ALBUMIN, URINE, RANDOM (test code = 54856) 4.6 MG/DL CBC W/AUTO [id number] 00:00:00* Test Item Value Reference Range Interpretation Comme nts WBC (test code = 1001) 5.4 K/UL [...] = 1013) 0.6 % IMMATURE GRANYLOCYTES (test code = 1036) 0.4 % NUCLEATED RBCS (test code = 1065) 0.0 /100WBC'S PLATELET COUNT (test code = 1015) 280 K/UL ABSOLUTE NEUTROPHILS (test c ode = 1066) 2.43 K/UL ABSOLUTE LYMPHOCYTES (test c ode = 1067) 2.33 K/UL ABSOLUTE MONOCYTES (test cod e = 1068) 0.44 K/UL ABSOLUTE EOSINOPHILS (test c ode = 1040) 0.13 K/UL ABSOLUTE BASOPHILS (test cod e = 1069) 0.03 K/UL ABS IMMATURE GRANULOCYTES (t est code = 1020) 0.02 K/UL ABS NUCLEATED RBCS (test cod e = 75206) 0.00 K/UL CBC W/AUTO [id number] 00:00:00* Test Item Value Reference Range Interpretation Comme nts WBC (test code = 1001) 5.4 K/UL [...] = 1013) 0.6 % IMMATURE GRANYLOCYTES (test code = 1036) 0.4 % NUCLEATED RBCS (test code = 1065) 0.0 /100WBC'S PLATELET COUNT (test code = 1015) 280 K/UL ABSOLUTE NEUTROPHILS (test c ode = 1066) 2.43 K/UL ABSOLUTE LYMPHOCYTES (test c ode = 1067) 2.33 K/UL ABSOLUTE MONOCYTES (test cod e = 1068) 0.44 K/UL ABSOLUTE EOSINOPHILS (test c ode = 1040) 0.13 K/UL ABSOLUTE BASOPHILS (test cod e = 1069) 0.03 K/UL ABS IMMATURE GRANULOCYTES (t est code = 1020) 0.02 K/UL ABS NUCLEATED RBCS (test cod e = 58099) 0.00 K/UL CBC W/AUTO [id number] 00:00:00* Test Item Value Reference Range Interpretation Comme nts WBC (test code = 1001) 5.4 K/UL [...] = 1013) 0.6 % IMMATURE GRANYLOCYTES (test code = 1036) 0.4 % NUCLEATED RBCS (test code = 1065) 0.0 /100WBC'S PLATELET COUNT (test code = 1015) 280 K/UL ABSOLUTE NEUTROPHILS (test c ode = 1066) 2.43 K/UL ABSOLUTE LYMPHOCYTES (test c ode = 1067) 2.33 K/UL ABSOLUTE MONOCYTES (test cod e = 1068) 0.44 K/UL ABSOLUTE EOSINOPHILS (test c ode = 1040) 0.13 K/UL ABSOLUTE BASOPHILS (test cod e = 1069) 0.03 K/UL ABS IMMATURE GRANULOCYTES (t est code = 1020) 0.02 K/UL ABS NUCLEATED RBCS (test cod e = 57270) 0.00 K/UL SARS-CoV-2 (COVID-19), RT-PCR/[id number] 17:21:35* Test Item Value Reference Range Interpretation Comments SARS-CoV-2 INTERPRETATION (test code = 84977) NEGATIVE SEE NOTE SARS-CoV-2 R NA NOT DETECTEDNegative results do not preclude SARS-CoV-2 infection and should notbe used as the sole basis for patient management decisions. Negativeresults must be combined with clinical observations, patient history,and epidemiological information. Optimum specimen types and timingfor peak viral levels during infections caused by SARS-CoV-2 have notbeen determined. Collection of multiple specimens or types ofspecimens may be necessary to detect virus. Improper specimencollection and handling, sequence variability under primers/probes,or organism present below the limit of detection may lead to falsenegative results. Positive and negative predictive values oftesting are highly dependent on prevalence. False negative testresults are more likely when prevalence is high. SOURCE (test code = 77016) NASOPHARYNGEAL Note: Methodolog y is Virginie Stephani Real-Time RT-PCR. The expected result or reference range is NEGATIVE (Not Detected). For more information regarding COVID-19 testing to include clinicalinformation, methodology detail, intended use, FDA authorization andrecommended fact sheets for patients or healthcare providers, see [facility] Announcement: SARS-CoV-2 (COVID-19) by NAAT at URL below (note,fact sheets are provided by method given in report:[email or web address] Alternatively, see downloadable PDF fact sheet at:[email or web address] UNLESS OTHERWISE INDICATED, ALL TESTING PERFORMED [facility] [employer] [address] [place] [id number] [employer] ENGINEER: CECILIA CORNELL M.D. CLIA NUMBER [id number] [facility] [place]. [id number] SARS-CoV-2 (COVID-19) by RT-PCR (HIGH RISK)2021-07-16 00:00:00* Test Item Value Reference Range Interpretation Comme nts SARS-CoV-2 INTERPRETATION (test code = 05997) NEGATIVE SOURCE (test code = 88755) NASOPHARYNGEAL SARS-CoV-2 (COVID-19) by RT-PCR (HIGH RISK)2021-07-16 00:00:00* Test Item Value Reference Range Interpretation Comme nts SARS-CoV-2 INTERPRETATION (test code = 70683) NEGATIVE SOURCE (test code = 81160) NASOPHARYNGEAL SARS-CoV-2 (COVID-19) by RT-PCR (HIGH RISK)2021-07-16 00:00:00* Test Item Value Reference Range Interpretation Comme nts SARS-CoV-2 INTERPRETATION (test code = 49611) NEGATIVE SOURCE (test code = 11040) NASOPHARYNGEAL SARS-CoV-2 (COVID-19) by RT-PCR (HIGH RISK)2021-07-16 00:00:00* Test Item Value Reference Range Interpretation Comme nts SARS-CoV-2 INTERPRETATION (test code = 95673) NEGATIVE SOURCE (test code = 01815) NASOPHARYNGEAL [id number] 00:00:00* Test Item Value Reference Range Interpretation Comme nts TSH, THIRD GENERATION (test code = 2821) 0.705 UIU/ML [id number] 00:00:00* Test Item Value Reference Range Interpretation Comme nts TSH, THIRD GENERATION (test code = 2821) 0.705 UIU/ML [id number] 00:00:00* Test Item Value Reference Range Interpretation Comme nts TSH, THIRD GENERATION (test code = 2821) 0.705 UIU/ML [id number] 00:00:00* Test Item Value Reference Range Interpretation Comme nts TSH, THIRD GENERATION (test code = 2821) 0.705 UIU/ML [id number] 00:00:00* Test Item Value Reference Range Interpretation Comme nts TSH, THIRD GENERATION (test code = 2821) 0.705 UIU/ML [id number] 00:00:00* Test Item Value Reference Range Interpretation Comme nts TSH, THIRD GENERATION (test code = 2821) 0.705 UIU/ML H. PYLORI (BREATH)2021-04-11 00:00:00* Test Item Value Reference Range Interpretation Comme nts H. PYLORI (BREATH) (test cod e = 83220) NEGATIVE H. PYLORI (BREATH)2021-04-11 00:00:00* Test Item Value Reference Range Interpretation Comme nts H. PYLORI (BREATH) (test cod e = 91821) NEGATIVE HEMOGLOBIN [id number] 00:00:00* Test Item Value Reference Range Interpretation Comme nts HEMOGLOBIN A1c (test code = 37811) 5.5 % HEMOGLOBIN [id number] 00:00:00* Test Item Value Reference Range Interpretation Comme nts HEMOGLOBIN A1c (test code = 73413) 5.5 % HEMOGLOBIN [id number] 00:00:00* Test Item Value Reference Range Interpretation Comme nts HEMOGLOBIN A1c (test code = 41348) 5.5 % H. PYLORI (BREATH)2021-04-11 00:00:00* Test Item Value Reference Range Interpretation Comme nts H. PYLORI (BREATH) (test cod e = 32226) NEGATIVE H. PYLORI (BREATH)2021-04-11 00:00:00* Test Item Value Reference Range Interpretation Comme nts H. PYLORI (BREATH) (test cod e = 57684) NEGATIVE HEMOGLOBIN [id number] 00:00:00* Test Item Value Reference Range Interpretation Comme nts HEMOGLOBIN A1c (test code = 28350) 5.5 % HEMOGLOBIN [id number] 00:00:00* Test Item Value Reference Range Interpretation Comme nts HEMOGLOBIN A1c (test code = 53384) 5.5 % HEMOGLOBIN [id number] 00:00:00* Test Item Value Reference Range Interpretation Comme nts HEMOGLOBIN A1c (test code = 38746) 5.5 % MICROALBUMIN/CREATININE, RANDOM AND [id number] 00:00:00* Test Item Value Reference Range Interpretation Comme nts CREATININE, URINE, CONC. (te st code = 207) 13.0 MG/DL ALBUMIN, URINE, RANDOM (test code = 28377) 3.0 MG/DL CALC ALBUMIN/CREAT, RND (cristhian t code = 85481) 231 MG/G MICROALBUMIN/CREATININE, RANDOM AND [id number] 00:00:00* Test Item Value Reference Range Interpretation Comme nts CREATININE, URINE, CONC. (te st code = 207) 13.0 MG/DL ALBUMIN, URINE, RANDOM (test code = 13569) 3.0 MG/DL CALC ALBUMIN/CREAT, RND (cristhian t code = 81000) 231 MG/G MICROALBUMIN/CREATININE, RANDOM AND [id number] 00:00:00* Test Item Value Reference Range Interpretation Comme nts CREATININE, URINE, CONC. (te st code = 207) 13.0 MG/DL ALBUMIN, URINE, RANDOM (test code = 34784) 3.0 MG/DL CALC ALBUMIN/CREAT, RND (cristhian t code = 61357) 231 MG/G MICROALBUMIN/CREATININE, RANDOM AND [id number] 00:00:00* Test Item Value Reference Range Interpretation Comme nts CREATININE, URINE, CONC. (te st code = 207) 13.0 MG/DL ALBUMIN, URINE, RANDOM (test code = 19926) 3.0 MG/DL CALC ALBUMIN/CREAT, RND (cristhian t code = 47846) 231 MG/G [id number] 00:00:00* Test Item Value Reference Range Interpretation Comme nts TSH, THIRD GENERATION (test code = 2821) 1.370 UIU/ML [id number] 00:00:00* Test Item Value Reference Range Interpretation Comme nts TSH, THIRD GENERATION (test code = 2821) 1.370 UIU/ML [id number] 00:00:00* Test Item Value Reference Range Interpretation Comme nts TSH, THIRD GENERATION (test code = 2821) 1.370 UIU/ML CBC W/AUTO [id number] 00:00:00* Test Item Value Reference Range Interpretation Comme nts WBC (test code = 1001) 9.9 K/UL [...] = 1013) 0.5 % IMMATURE GRANULOCYTES (test code = 1036) 0.1 % NUCLEATED RBCS (test code = 1065) 0.0 /100WBC'S PLATELET COUNT (test code = 1015) 256 K/UL ABSOLUTE NEUTROPHILS (test c ode = 1066) 5.97 K/UL ABSOLUTE LYMPHOCYTES (test c ode = 1067) 2.74 K/UL ABSOLUTE MONOCYTES (test cod e = 1068) 0.98 K/UL ABSOLUTE EOSINOPHILS (test c ode = 1040) 0.17 K/UL ABSOLUTE BASOPHILS (test cod e = 1069) 0.05 K/UL ABS IMMATURE GRANULOCYTES (t est code = 1020) 0.01 K/UL ABS NUCLEATED RBCS (test cod e = 23943) 0.00 K/UL CBC W/AUTO [id number] 00:00:00* Test Item Value Reference Range Interpretation Comme nts WBC (test code = 1001) 9.9 K/UL [...] = 1013) 0.5 % IMMATURE GRANULOCYTES (test code = 1036) 0.1 % NUCLEATED RBCS (test code = 1065) 0.0 /100WBC'S PLATELET COUNT (test code = 1015) 256 K/UL ABSOLUTE NEUTROPHILS (test c ode = 1066) 5.97 K/UL ABSOLUTE LYMPHOCYTES (test c ode = 1067) 2.74 K/UL ABSOLUTE MONOCYTES (test cod e = 1068) 0.98 K/UL ABSOLUTE EOSINOPHILS (test c ode = 1040) 0.17 K/UL ABSOLUTE BASOPHILS (test cod e = 1069) 0.05 K/UL ABS IMMATURE GRANULOCYTES (t est code = 1020) 0.01 K/UL ABS NUCLEATED RBCS (test cod e = 80619) 0.00 K/UL CBC W/AUTO [id number] 00:00:00* Test Item Value Reference Range Interpretation Comme nts WBC (test code = 1001) 9.9 K/UL [...] = 1013) 0.5 % IMMATURE GRANULOCYTES (test code = 1036) 0.1 % NUCLEATED RBCS (test code = 1065) 0.0 /100WBC'S PLATELET COUNT (test code = 1015) 256 K/UL ABSOLUTE NEUTROPHILS (test c ode = 1066) 5.97 K/UL ABSOLUTE LYMPHOCYTES (test c ode = 1067) 2.74 K/UL ABSOLUTE MONOCYTES (test cod e = 1068) 0.98 K/UL ABSOLUTE EOSINOPHILS (test c ode = 1040) 0.17 K/UL ABSOLUTE BASOPHILS (test cod e = 1069) 0.05 K/UL ABS IMMATURE GRANULOCYTES (t est code = 1020) 0.01 K/UL ABS NUCLEATED RBCS (test cod e = 36386) 0.00 K/UL SEDIMENTATION [id number] 00:00:00* Test Item Value Reference Range Interpretation Comme nts SEDIMENTATION RATE (test cod e = 1017) 27 MM/HOUR SEDIMENTATION [id number] 00:00:00* Test Item Value Reference Range Interpretation Comme nts SEDIMENTATION RATE (test cod e = 1017) 27 MM/HOUR LUCA NON-REFLEX TO [id number] 00:00:00* Test Item Value Reference Range Interpretation Comme nts ANTI-NUCLEAR ANTIBODIES (cristhian t code = 3506) NEGATIVE LUCA NON-REFLEX TO [id number] 00:00:00* Test Item Value Reference Range Interpretation Comme nts ANTI-NUCLEAR ANTIBODIES (cristhian t code = 3506) NEGATIVE COMPREHENSIVE METABOLIC [id number] 00:00:00* Test Item Value Reference Range Interpretation Comme nts GLUCOSE (test code = 2217) 76 MG/DL BUN (test code = 2208) 16 MG/DL CREATININE (test code = 2214) 1.21 MG/DL eGFR AMER. (test cod e = 61679) 65 ML/MIN/1.73 eGFR NON- AMER. (test code = 92486) 56 ML/MIN/1.73 CALC BUN/CREAT (test code = 2235) 13 RATIO SODIUM (test code = 2231) 139 MEQ/L POTASSIUM (test code = 2228) 4.8 MEQ/L CHLORIDE (test code = 2215) 100 MEQ/L CARBON DIOXIDE (test code = 2206) 24 MEQ/L CALCIUM (test code = 2209) 9.8 MG/DL PROTEIN, TOTAL (test code = 2229) 7.9 G/DL ALBUMIN (test code = 2201) 4.6 G/DL CALC GLOBULIN (test code = 2240) 3.3 G/DL CALC A/G RATIO (test code = 2234) 1.4 RATIO BILIRUBIN, TOTAL (test code = 2207) 0.6 MG/DL ALKALINE PHOSPHATASE (test code = 2204) 119 U/L AST (test code = 2218) 26 U/L ALT (test code = 2219) 22 U/L COMPREHENSIVE METABOLIC [id number] 00:00:00* Test Item Value Reference Range Interpretation Comme nts GLUCOSE (test code = 2217) 76 MG/DL BUN (test code = 2208) 16 MG/DL CREATININE (test code = 2214) 1.21 MG/DL eGFR AMER. (test cod e = 07024) 65 ML/MIN/1.73 eGFR NON- AMER. (test code = 50631) 56 ML/MIN/1.73 CALC BUN/CREAT (test code = 2235) 13 RATIO SODIUM (test code = 2231) 139 MEQ/L POTASSIUM (test code = 2228) 4.8 MEQ/L CHLORIDE (test code = 2215) 100 MEQ/L CARBON DIOXIDE (test code = 2206) 24 MEQ/L CALCIUM (test code = 2209) 9.8 MG/DL PROTEIN, TOTAL (test code = 2229) 7.9 G/DL ALBUMIN (test code = 2201) 4.6 G/DL CALC GLOBULIN (test code = 2240) 3.3 G/DL CALC A/G RATIO (test code = 2234) 1.4 RATIO BILIRUBIN, TOTAL (test code = 2207) 0.6 MG/DL ALKALINE PHOSPHATASE (test code = 2204) 119 U/L AST (test code = 2218) 26 U/L ALT (test code = 2219) 22 U/L [id number] 00:00:00* Test Item Value Reference Range Interpretation Comme nts TSH, THIRD GENERATION (test code = 2821) 1.370 UIU/ML [id number] 00:00:00* Test Item Value Reference Range Interpretation Comme nts TSH, THIRD GENERATION (test code = 2821) 1.370 UIU/ML [id number] 00:00:00* Test Item Value Reference Range Interpretation Comme nts TSH, THIRD GENERATION (test code = 2821) 1.370 UIU/ML CBC W/AUTO [id number] 00:00:00* Test Item Value Reference Range Interpretation Comme nts WBC (test code = 1001) 9.9 K/UL [...] = 1013) 0.5 % IMMATURE GRANULOCYTES (test code = 1036) 0.1 % NUCLEATED RBCS (test code = 1065) 0.0 /100WBC'S PLATELET COUNT (test code = 1015) 256 K/UL ABSOLUTE NEUTROPHILS (test c ode = 1066) 5.97 K/UL ABSOLUTE LYMPHOCYTES (test c ode = 1067) 2.74 K/UL ABSOLUTE MONOCYTES (test cod e = 1068) 0.98 K/UL ABSOLUTE EOSINOPHILS (test c ode = 1040) 0.17 K/UL ABSOLUTE BASOPHILS (test cod e = 1069) 0.05 K/UL ABS IMMATURE GRANULOCYTES (t est code = 1020) 0.01 K/UL ABS NUCLEATED RBCS (test cod e = 38934) 0.00 K/UL CBC W/AUTO [id number] 00:00:00* Test Item Value Reference Range Interpretation Comme nts WBC (test code = 1001) 9.9 K/UL [...] = 1013) 0.5 % IMMATURE GRANULOCYTES (test code = 1036) 0.1 % NUCLEATED RBCS (test code = 1065) 0.0 /100WBC'S PLATELET COUNT (test code = 1015) 256 K/UL ABSOLUTE NEUTROPHILS (test c ode = 1066) 5.97 K/UL ABSOLUTE LYMPHOCYTES (test c ode = 1067) 2.74 K/UL ABSOLUTE MONOCYTES (test cod e = 1068) 0.98 K/UL ABSOLUTE EOSINOPHILS (test c ode = 1040) 0.17 K/UL ABSOLUTE BASOPHILS (test cod e = 1069) 0.05 K/UL ABS IMMATURE GRANULOCYTES (t est code = 1020) 0.01 K/UL ABS NUCLEATED RBCS (test cod e = 17011) 0.00 K/UL CBC W/AUTO [id number] 00:00:00* Test Item Value Reference Range Interpretation Comme nts WBC (test code = 1001) 9.9 K/UL [...] = 1013) 0.5 % IMMATURE GRANULOCYTES (test code = 1036) 0.1 % NUCLEATED RBCS (test code = 1065) 0.0 /100WBC'S PLATELET COUNT (test code = 1015) 256 K/UL ABSOLUTE NEUTROPHILS (test c ode = 1066) 5.97 K/UL ABSOLUTE LYMPHOCYTES (test c ode = 1067) 2.74 K/UL ABSOLUTE MONOCYTES (test cod e = 1068) 0.98 K/UL ABSOLUTE EOSINOPHILS (test c ode = 1040) 0.17 K/UL ABSOLUTE BASOPHILS (test cod e = 1069) 0.05 K/UL ABS IMMATURE GRANULOCYTES (t est code = 1020) 0.01 K/UL ABS NUCLEATED RBCS (test cod e = 20006) 0.00 K/UL SEDIMENTATION [id number] 00:00:00* Test Item Value Reference Range Interpretation Comme nts SEDIMENTATION RATE (test cod e = 1017) 27 MM/HOUR SEDIMENTATION [id number] 00:00:00* Test Item Value Reference Range Interpretation Comme nts SEDIMENTATION RATE (test cod e = 1017) 27 MM/HOUR LUCA NON-REFLEX TO [id number] 00:00:00* Test Item Value Reference Range Interpretation Comme nts ANTI-NUCLEAR ANTIBODIES (cristhian t code = 3506) NEGATIVE LUCA NON-REFLEX TO [id number] 00:00:00* Test Item Value Reference Range Interpretation Comme nts ANTI-NUCLEAR ANTIBODIES (cristhian t code = 3506) NEGATIVE COMPREHENSIVE METABOLIC [id number] 00:00:00* Test Item Value Reference Range Interpretation Comme nts GLUCOSE (test code = 2217) 76 MG/DL BUN (test code = 2208) 16 MG/DL CREATININE (test code = 2214) 1.21 MG/DL eGFR AMER. (test cod e = 09862) 65 ML/MIN/1.73 eGFR NON- AMER. (test code = 77569) 56 ML/MIN/1.73 CALC BUN/CREAT (test code = 2235) 13 RATIO SODIUM (test code = 2231) 139 MEQ/L POTASSIUM (test code = 2228) 4.8 MEQ/L CHLORIDE (test code = 2215) 100 MEQ/L CARBON DIOXIDE (test code = 2206) 24 MEQ/L CALCIUM (test code = 2209) 9.8 MG/DL PROTEIN, TOTAL (test code = 2229) 7.9 G/DL ALBUMIN (test code = 2201) 4.6 G/DL CALC GLOBULIN (test code = 2240) 3.3 G/DL CALC A/G RATIO (test code = 2234) 1.4 RATIO BILIRUBIN, TOTAL (test code = 2207) 0.6 MG/DL ALKALINE PHOSPHATASE (test code = 2204) 119 U/L AST (test code = 2218) 26 U/L ALT (test code = 2219) 22 U/L COMPREHENSIVE METABOLIC [id number] 00:00:00* Test Item Value Reference Range Interpretation Comme nts GLUCOSE (test code = 2217) 76 MG/DL BUN (test code = 2208) 16 MG/DL CREATININE (test code = 2214) 1.21 MG/DL eGFR AMER. (test cod e = 82713) 65 ML/MIN/1.73 eGFR NON- AMER. (test code = 86111) 56 ML/MIN/1.73 CALC BUN/CREAT (test code = 2235) 13 RATIO SODIUM (test code = 2231) 139 MEQ/L POTASSIUM (test code = 2228) 4.8 MEQ/L CHLORIDE (test code = 2215) 100 MEQ/L CARBON DIOXIDE (test code = 2206) 24 MEQ/L CALCIUM (test code = 2209) 9.8 MG/DL PROTEIN, TOTAL (test code = 2229) 7.9 G/DL ALBUMIN (test code = 2201) 4.6 G/DL CALC GLOBULIN (test code = 2240) 3.3 G/DL CALC A/G RATIO (test code = 2234) 1.4 RATIO BILIRUBIN, TOTAL (test code = 2207) 0.6 MG/DL ALKALINE PHOSPHATASE (test code = 2204) 119 U/L AST (test code = 2218) 26 U/L ALT (test code = 2219) 22 U/L VITAMIN D, 25 [id number] 00:00:00* Test Item Value Reference Range Interpretation Comme nts VITAMIN D, 25 OH (test code = 4958) 24 NG/ML [id number] 00:00:00* Test Item Value Reference Range Interpretation Comme nts TSH, THIRD GENERATION (test code = 2821) 1.200 UIU/ML [id number] 00:00:00* Test Item Value Reference Range Interpretation Comme nts TSH, THIRD GENERATION (test code = 2821) 1.200 UIU/ML [id number] 00:00:00* Test Item Value Reference Range Interpretation Comme nts TSH, THIRD GENERATION (test code = 2821) 1.200 UIU/ML COMPREHENSIVE METABOLIC [id number] 00:00:00* Test Item Value Reference Range Interpretation Comme nts GLUCOSE (test code = 2217) 87 MG/DL BUN (test code = 2208) 15 MG/DL CREATININE (test code = 2214) 1.14 MG/DL eGFR AMER. (test cod e = 35113) 70 ML/MIN/1.73 eGFR NON- AMER. (test code = 17906) 60 ML/MIN/1.73 CALC BUN/CREAT (test code = 2235) 13 RATIO SODIUM (test code = 2231) 138 MEQ/L POTASSIUM (test code = 2228) 4.5 MEQ/L CHLORIDE (test code = 2215) 100 MEQ/L CARBON DIOXIDE (test code = 2206) 23 MEQ/L CALCIUM (test code = 2209) 9.5 MG/DL PROTEIN, TOTAL (test code = 2229) 7.3 G/DL ALBUMIN (test code = 2201) 4.4 G/DL CALC GLOBULIN (test code = 2240) 2.9 G/DL CALC A/G RATIO (test code = 2234) 1.5 RATIO BILIRUBIN, TOTAL (test code = 2207) 0.6 MG/DL ALKALINE PHOSPHATASE (test code = 2204) 110 U/L AST (test code = 2218) 26 U/L ALT (test code = 2219) 23 U/L COMPREHENSIVE METABOLIC [id number] 00:00:00* Test Item Value Reference Range Interpretation Comme nts GLUCOSE (test code = 2217) 87 MG/DL BUN (test code = 2208) 15 MG/DL CREATININE (test code = 2214) 1.14 MG/DL eGFR AMER. (test cod e = ) 70 ML/MIN/1.73 eGFR NON- AMER. (test code = 14022) 60 ML/MIN/1.73 CALC BUN/CREAT (test code = 2235) 13 RATIO SODIUM (test code = 2231) 138 MEQ/L POTASSIUM (test code = 2228) 4.5 MEQ/L CHLORIDE (test code = 2215) 100 MEQ/L CARBON DIOXIDE (test code = 2206) 23 MEQ/L CALCIUM (test code = 2209) 9.5 MG/DL PROTEIN, TOTAL (test code = 2229) 7.3 G/DL ALBUMIN (test code = 2201) 4.4 G/DL CALC GLOBULIN (test code = 2240) 2.9 G/DL CALC A/G RATIO (test code = 2234) 1.5 RATIO BILIRUBIN, TOTAL (test code = 2207) 0.6 MG/DL ALKALINE PHOSPHATASE (test code = 2204) 110 U/L AST (test code = 2218) 26 U/L ALT (test code = 2219) 23 U/L VITAMIN D, 25 [id number] 00:00:00* Test Item Value Reference Range Interpretation Comme [facility] VITAMIN D, 25 OH (test code = 4958) 24 NG/ML VITAMIN D, 25 [id number] 00:00:00* Test Item Value Reference Range Interpretation Comme nts VITAMIN D, 25 OH (test code = 4958) 24 NG/ML [id number] 00:00:00* Test Item Value Reference Range Interpretation Comme nts TSH, THIRD GENERATION (test code = 2821) 1.200 UIU/ML [id number] 00:00:00* Test Item Value Reference Range Interpretation Comme nts TSH, THIRD GENERATION (test code = 2821) 1.200 UIU/ML [id number] 00:00:00* Test Item Value Reference Range Interpretation Comme nts TSH, THIRD GENERATION (test code = 2821) 1.200 UIU/ML COMPREHENSIVE METABOLIC [id number] 00:00:00* Test Item Value Reference Range Interpretation Comme nts GLUCOSE (test code = 2217) 87 MG/DL BUN (test code = 2208) 15 MG/DL CREATININE (test code = 2214) 1.14 MG/DL eGFR AMER. (test cod e = 02321) 70 ML/MIN/1.73 eGFR NON- AMER. (test code = 87087) 60 ML/MIN/1.73 CALC BUN/CREAT (test code = 2235) 13 RATIO SODIUM (test code = 2231) 138 MEQ/L POTASSIUM (test code = 2228) 4.5 MEQ/L CHLORIDE (test code = 2215) 100 MEQ/L CARBON DIOXIDE (test code = 2206) 23 MEQ/L CALCIUM (test code = 2209) 9.5 MG/DL PROTEIN, TOTAL (test code = 2229) 7.3 G/DL ALBUMIN (test code = 2201) 4.4 G/DL CALC GLOBULIN (test code = 2240) 2.9 G/DL CALC A/G RATIO (test code = 2234) 1.5 RATIO BILIRUBIN, TOTAL (test code = 2207) 0.6 MG/DL ALKALINE PHOSPHATASE (test code = 2204) 110 U/L AST (test code = 2218) 26 U/L ALT (test code = 2219) 23 U/L COMPREHENSIVE METABOLIC [id number] 00:00:00* Test Item Value Reference Range Interpretation Comme nts GLUCOSE (test code = 2217) 87 MG/DL BUN (test code = 2208) 15 MG/DL CREATININE (test code = 2214) 1.14 MG/DL eGFR AMER. (test cod e = 06692) 70 ML/MIN/1.73 eGFR NON- AMER. (test code = 08232) 60 ML/MIN/1.73 CALC BUN/CREAT (test code = 2235) 13 RATIO SODIUM (test code = 2231) 138 MEQ/L POTASSIUM (test code = 2228) 4.5 MEQ/L CHLORIDE (test code = 2215) 100 MEQ/L CARBON DIOXIDE (test code = 2206) 23 MEQ/L CALCIUM (test code = 2209) 9.5 MG/DL PROTEIN, TOTAL (test code = 2229) 7.3 G/DL ALBUMIN (test code = 2201) 4.4 G/DL CALC GLOBULIN (test code = 2240) 2.9 G/DL CALC A/G RATIO (test code = 2234) 1.5 RATIO BILIRUBIN, TOTAL (test code = 2207) 0.6 MG/DL ALKALINE PHOSPHATASE (test code = 2204) 110 U/L AST (test code = 2218) 26 U/L ALT (test code = 2219) 23 U/L VITAMIN D, 25 [id number] 00:00:00* Test Item Value Reference Range Interpretation Comme nts VITAMIN D, 25 OH (test code = 4958) 24 NG/ML HEMOGLOBIN [id number] 00:00:00* Test Item Value Reference Range Interpretation Comme nts HEMOGLOBIN A1c (test code = 51338) 5.5 % LIPID [id number] 00:00:00* Test Item Value Reference Range Interpretation Comme nts CHOLESTEROL (test code = 2210) 207 MG/DL TRIGLYCERIDES (test code = 2232) 156 MG/DL HDL CHOLESTEROL (test code = 2220) 65 MG/DL CALC LDL CHOL (test code = 2237) 115 MG/DL RISK RATIO LDL/HDL (test cod e = 2238) 1.77 RATIO LIPID [id number] 00:00:00* Test Item Value Reference Range Interpretation Comme nts CHOLESTEROL (test code = 2210) 207 MG/DL TRIGLYCERIDES (test code = 2232) 156 MG/DL HDL CHOLESTEROL (test code = 2220) 65 MG/DL CALC LDL CHOL (test code = 2237) 115 MG/DL RISK RATIO LDL/HDL (test cod e = 2238) 1.77 RATIO COMPREHENSIVE METABOLIC [id number] 00:00:00* Test Item Value Reference Range Interpretation Comme nts GLUCOSE (test code = 2217) 91 MG/DL BUN (test code = 2208) 15 MG/DL CREATININE (test code = 2214) 0.99 MG/DL eGFR AMER. (test cod e = 51293) 83 ML/MIN/1.73 eGFR NON- AMER. (test code = 24114) 72 ML/MIN/1.73 CALC BUN/CREAT (test code = 2235) 15 RATIO SODIUM (test code = 2231) 137 MEQ/L POTASSIUM (test code = 2228) 4.4 MEQ/L CHLORIDE (test code = 2215) 103 MEQ/L CARBON DIOXIDE (test code = 2206) 24 MEQ/L CALCIUM (test code = 2209) 9.0 MG/DL PROTEIN, TOTAL (test code = 2229) 7.1 G/DL ALBUMIN (test code = 2201) 4.4 G/DL CALC GLOBULIN (test code = 2240) 2.7 G/DL CALC A/G RATIO (test code = 2234) 1.6 RATIO BILIRUBIN, TOTAL (test code = 2207) 0.6 MG/DL ALKALINE PHOSPHATASE (test code = 2204) 119 U/L AST (test code = 2218) 98 U/L ALT (test code = 2219) 130 U/L COMPREHENSIVE METABOLIC [id number] 00:00:00* Test Item Value Reference Range Interpretation Comme nts GLUCOSE (test code = 2217) 91 MG/DL BUN (test code = 2208) 15 MG/DL CREATININE (test code = 2214) 0.99 MG/DL eGFR AMER. (test cod e = 34561) 83 ML/MIN/1.73 eGFR NON- AMER. (test code = 97267) 72 ML/MIN/1.73 CALC BUN/CREAT (test code = 2235) 15 RATIO SODIUM (test code = 2231) 137 MEQ/L POTASSIUM (test code = 2228) 4.4 MEQ/L CHLORIDE (test code = 2215) 103 MEQ/L CARBON DIOXIDE (test code = 2206) 24 MEQ/L CALCIUM (test code = 2209) 9.0 MG/DL PROTEIN, TOTAL (test code = 2229) 7.1 G/DL ALBUMIN (test code = 2201) 4.4 G/DL CALC GLOBULIN (test code = 2240) 2.7 G/DL CALC A/G RATIO (test code = 2234) 1.6 RATIO BILIRUBIN, TOTAL (test code = 2207) 0.6 MG/DL ALKALINE PHOSPHATASE (test code = 2204) 119 U/L AST (test code = 2218) 98 U/L ALT (test code = 2219) 130 U/L [id number] 00:00:00* Test Item Value Reference Range Interpretation Comme nts TSH, THIRD GENERATION (test code = 2821) 7.820 UIU/ML [id number] 00:00:00* Test Item Value Reference Range Interpretation Comme nts TSH, THIRD GENERATION (test code = 2821) 7.820 UIU/ML [id number] 00:00:00* Test Item Value Reference Range Interpretation Comme nts TSH, THIRD GENERATION (test code = 2821) 7.820 UIU/ML VITAMIN D, 25 [id number] 00:00:00* Test Item Value Reference Range Interpretation Comme nts VITAMIN D, 25 OH (test code = 4958) 26 NG/ML VITAMIN D, 25 [id number] 00:00:00* Test Item Value Reference Range Interpretation Comme nts VITAMIN D, 25 OH (test code = 4958) 26 NG/ML HEMOGLOBIN [id number] 00:00:00* Test Item Value Reference Range Interpretation Comme nts HEMOGLOBIN A1c (test code = 55612) 5.5 % HEMOGLOBIN [id number] 00:00:00* Test Item Value Reference Range Interpretation Comme nts HEMOGLOBIN A1c (test code = 43394) 5.5 % HEMOGLOBIN [id number] 00:00:00* Test Item Value Reference Range Interpretation Comme nts HEMOGLOBIN A1c (test code = 19564) 5.5 % LIPID [id number] 00:00:00* Test Item Value Reference Range Interpretation Comme nts CHOLESTEROL (test code = 2210) 207 MG/DL TRIGLYCERIDES (test code = 2232) 156 MG/DL HDL CHOLESTEROL (test code = 2220) 65 MG/DL CALC LDL CHOL (test code = 2237) 115 MG/DL RISK RATIO LDL/HDL (test cod e = 2238) 1.77 RATIO LIPID [id number] 00:00:00* Test Item Value Reference Range Interpretation Comme nts CHOLESTEROL (test code = 2210) 207 MG/DL TRIGLYCERIDES (test code = 2232) 156 MG/DL HDL CHOLESTEROL (test code = 2220) 65 MG/DL CALC LDL CHOL (test code = 2237) 115 MG/DL RISK RATIO LDL/HDL (test cod e = 2238) 1.77 RATIO COMPREHENSIVE METABOLIC [id number] 00:00:00* Test Item Value Reference Range Interpretation Comme nts GLUCOSE (test code = 2217) 91 MG/DL BUN (test code = 2208) 15 MG/DL CREATININE (test code = 2214) 0.99 MG/DL eGFR AMER. (test cod e = 67129) 83 ML/MIN/1.73 eGFR NON- AMER. (test code = 02884) 72 ML/MIN/1.73 CALC BUN/CREAT (test code = 2235) 15 RATIO SODIUM (test code = 2231) 137 MEQ/L POTASSIUM (test code = 2228) 4.4 MEQ/L CHLORIDE (test code = 2215) 103 MEQ/L CARBON DIOXIDE (test code = 2206) 24 MEQ/L CALCIUM (test code = 2209) 9.0 MG/DL PROTEIN, TOTAL (test code = 2229) 7.1 G/DL ALBUMIN (test code = 2201) 4.4 G/DL CALC GLOBULIN (test code = 2240) 2.7 G/DL CALC A/G RATIO (test code = 2234) 1.6 RATIO BILIRUBIN, TOTAL (test code = 2207) 0.6 MG/DL ALKALINE PHOSPHATASE (test code = 2204) 119 U/L AST (test code = 2218) 98 U/L ALT (test code = 2219) 130 U/L COMPREHENSIVE METABOLIC [id number] 00:00:00* Test Item Value Reference Range Interpretation Comme nts GLUCOSE (test code = 2217) 91 MG/DL BUN (test code = 2208) 15 MG/DL CREATININE (test code = 2214) 0.99 MG/DL eGFR AMER. (test cod e = 73870) 83 ML/MIN/1.73 eGFR NON- AMER. (test code = 80495) 72 ML/MIN/1.73 CALC BUN/CREAT (test code = 2235) 15 RATIO SODIUM (test code = 2231) 137 MEQ/L POTASSIUM (test code = 2228) 4.4 MEQ/L CHLORIDE (test code = 2215) 103 MEQ/L CARBON DIOXIDE (test code = 2206) 24 MEQ/L CALCIUM (test code = 2209) 9.0 MG/DL PROTEIN, TOTAL (test code = 2229) 7.1 G/DL ALBUMIN (test code = 2201) 4.4 G/DL CALC GLOBULIN (test code = 2240) 2.7 G/DL CALC A/G RATIO (test code = 2234) 1.6 RATIO BILIRUBIN, TOTAL (test code = 2207) 0.6 MG/DL ALKALINE PHOSPHATASE (test code = 2204) 119 U/L AST (test code = 2218) 98 U/L ALT (test code = 2219) 130 U/L [id number] 00:00:00* Test Item Value Reference Range Interpretation Comme nts TSH, THIRD GENERATION (test code = 2821) 7.820 UIU/ML [id number] 00:00:00* Test Item Value Reference Range Interpretation Comme nts TSH, THIRD GENERATION (test code = 2821) 7.820 UIU/ML [id number] 00:00:00* Test Item Value Reference Range Interpretation Comme nts TSH, THIRD GENERATION (test code = 2821) 7.820 UIU/ML VITAMIN D, 25 [id number] 00:00:00* Test Item Value Reference Range Interpretation Comme nts VITAMIN D, 25 OH (test code = 4958) 26 NG/ML VITAMIN D, 25 [id number] 00:00:00* Test Item Value Reference Range Interpretation Comme nts VITAMIN D, 25 OH (test code = 4958) 26 NG/ML HEMOGLOBIN [id number] 00:00:00* Test Item Value Reference Range Interpretation Comme nts HEMOGLOBIN A1c (test code = 34393) 5.5 % HEMOGLOBIN [id number] 00:00:00* Test Item Value Reference Range Interpretation Comme nts HEMOGLOBIN A1c (test code = 04001) 5.5 % TSH, THIRD GENERATION [ADDED]2020-03-31 00:00:00* Test Item Value Reference Range Interpretation Comme nts TSH, THIRD GENERATION (test code = 2821) 1.020 UIU/ML NOTE: [ADDED]2020-03-31 00:00:00* Test Item Value Reference Range Interpretation Comme nts NOTE: (test code = 998) (NOTE) TSH, THIRD GENERATION [ADDED]2020-03-31 00:00:00* Test Item Value Reference Range Interpretation Comme nts TSH, THIRD GENERATION (test code = 2821) 1.020 UIU/ML TSH, THIRD GENERATION [ADDED]2020-03-31 00:00:00* Test Item Value Reference Range Interpretation Comme nts TSH, THIRD GENERATION (test code = 2821) 1.020 UIU/ML TSH, THIRD GENERATION [ADDED]2020-03-31 00:00:00* Test Item Value Reference Range Interpretation Comme nts TSH, THIRD GENERATION (test code = 2821) 1.020 UIU/ML NOTE: [ADDED]2020-03-31 00:00:00* Test Item Value Reference Range Interpretation Comme nts NOTE: (test code = 998) (NOTE) TSH, THIRD GENERATION [ADDED]2020-03-31 00:00:00* Test Item Value Reference Range Interpretation Comme nts TSH, THIRD GENERATION (test code = 2821) 1.020 UIU/ML TSH, THIRD GENERATION [ADDED]2020-03-31 00:00:00* Test Item Value Reference Range Interpretation Comme nts TSH, THIRD GENERATION (test code = 2821) 1.020 UIU/ML VITAMIN D, 25 [id number] 00:00:00* Test Item Value Reference Range Interpretation Comme nts VITAMIN D, 25 OH (test code = 4958) 34 NG/ML VITAMIN D, 25 [id number] 00:00:00* Test Item Value Reference Range Interpretation Comme nts VITAMIN D, 25 OH (test code = 4958) 34 NG/ML VITAMIN D, 25 [id number] 00:00:00* Test Item Value Reference Range Interpretation Comme nts VITAMIN D, 25 OH (test code = 4958) 34 NG/ML VITAMIN D, 25 [id number] 00:00:00* Test Item Value Reference Range Interpretation Comme nts VITAMIN D, 25 OH (test code = 4958) 34 NG/ML COMPREHENSIVE METABOLIC [id number] 00:00:00* Test Item Value Reference Range Interpretation Comme nts GLUCOSE (test code = 2217) 96 MG/DL BUN (test code = 2208) 15 MG/DL CREATININE (test code = 2214) 1.22 MG/DL eGFR AMER. (test cod e = 09587) 65 ML/MIN/1.73 eGFR NON- AMER. (test code = 76762) 56 ML/MIN/1.73 CALC BUN/CREAT (test code = 2235) 12 RATIO SODIUM (test code = 2231) 142 MEQ/L POTASSIUM (test code = 2228) 4.5 MEQ/L CHLORIDE (test code = 2215) 105 MEQ/L CARBON DIOXIDE (test code = 2206) 23 MEQ/L CALCIUM (test code = 2209) 9.7 MG/DL PROTEIN, TOTAL (test code = 2229) 7.8 G/DL ALBUMIN (test code = 2201) 4.7 G/DL CALC GLOBULIN (test code = 2240) 3.1 G/DL CALC A/G RATIO (test code = 2234) 1.5 RATIO BILIRUBIN, TOTAL (test code = 2207) 0.7 MG/DL ALKALINE PHOSPHATASE (test code = 2204) 84 U/L AST (test code = 2218) 20 U/L ALT (test code = 2219) 18 U/L COMPREHENSIVE METABOLIC [id number] 00:00:00* Test Item Value Reference Range Interpretation Comme nts GLUCOSE (test code = 2217) 96 MG/DL BUN (test code = 2208) 15 MG/DL CREATININE (test code = 2214) 1.22 MG/DL eGFR AMER. (test cod e = 90000) 65 ML/MIN/1.73 eGFR NON- AMER. (test code = 02298) 56 ML/MIN/1.73 CALC BUN/CREAT (test code = 2235) 12 RATIO SODIUM (test code = 2231) 142 MEQ/L POTASSIUM (test code = 2228) 4.5 MEQ/L CHLORIDE (test code = 2215) 105 MEQ/L CARBON DIOXIDE (test code = 2206) 23 MEQ/L CALCIUM (test code = 2209) 9.7 MG/DL PROTEIN, TOTAL (test code = 2229) 7.8 G/DL ALBUMIN (test code = 2201) 4.7 G/DL CALC GLOBULIN (test code = 2240) 3.1 G/DL CALC A/G RATIO (test code = 2234) 1.5 RATIO BILIRUBIN, TOTAL (test code = 2207) 0.7 MG/DL ALKALINE PHOSPHATASE (test code = 2204) 84 U/L AST (test code = 2218) 20 U/L ALT (test code = 2219) 18 U/L LIPID [id number] 00:00:00* Test Item Value Reference Range Interpretation Comme nts CHOLESTEROL (test code = 2210) 213 MG/DL TRIGLYCERIDES (test code = 2232) 145 MG/DL HDL CHOLESTEROL (test code = 2220) 46 MG/DL CALC LDL CHOL (test code = 2237) 140 MG/DL RISK RATIO LDL/HDL (test cod e = 2238) 3.04 RATIO LIPID [id number] 00:00:00* Test Item Value Reference Range Interpretation Comme nts CHOLESTEROL (test code = 2210) 213 MG/DL TRIGLYCERIDES (test code = 2232) 145 MG/DL HDL CHOLESTEROL (test code = 2220) 46 MG/DL CALC LDL CHOL (test code = 2237) 140 MG/DL RISK RATIO LDL/HDL (test cod e = 2238) 3.04 RATIO COMPREHENSIVE METABOLIC [id number] 00:00:00* Test Item Value Reference Range Interpretation Comme nts GLUCOSE (test code = 2217) 96 MG/DL BUN (test code = 2208) 15 MG/DL CREATININE (test code = 2214) 1.22 MG/DL eGFR AMER. (test cod e = 41271) 65 ML/MIN/1.73 eGFR NON- AMER. (test code = 34749) 56 ML/MIN/1.73 CALC BUN/CREAT (test code = 2235) 12 RATIO SODIUM (test code = 2231) 142 MEQ/L POTASSIUM (test code = 2228) 4.5 MEQ/L CHLORIDE (test code = 2215) 105 MEQ/L CARBON DIOXIDE (test code = 2206) 23 MEQ/L CALCIUM (test code = 2209) 9.7 MG/DL PROTEIN, TOTAL (test code = 2229) 7.8 G/DL ALBUMIN (test code = 2201) 4.7 G/DL CALC GLOBULIN (test code = 2240) 3.1 G/DL CALC A/G RATIO (test code = 2234) 1.5 RATIO BILIRUBIN, TOTAL (test code = 2207) 0.7 MG/DL ALKALINE PHOSPHATASE (test code = 2204) 84 U/L AST (test code = 2218) 20 U/L ALT (test code = 2219) 18 U/L COMPREHENSIVE METABOLIC [id number] 00:00:00* Test Item Value Reference Range Interpretation Comme nts GLUCOSE (test code = 2217) 96 MG/DL BUN (test code = 2208) 15 MG/DL CREATININE (test code = 2214) 1.22 MG/DL eGFR AMER. (test cod e = 25803) 65 ML/MIN/1.73 eGFR NON- AMER. (test code = 41095) 56 ML/MIN/1.73 CALC BUN/CREAT (test code = 2235) 12 RATIO SODIUM (test code = 2231) 142 MEQ/L POTASSIUM (test code = 2228) 4.5 MEQ/L CHLORIDE (test code = 2215) 105 MEQ/L CARBON DIOXIDE (test code = 2206) 23 MEQ/L CALCIUM (test code = 2209) 9.7 MG/DL PROTEIN, TOTAL (test code = 2229) 7.8 G/DL ALBUMIN (test code = 2201) 4.7 G/DL CALC GLOBULIN (test code = 2240) 3.1 G/DL CALC A/G RATIO (test code = 2234) 1.5 RATIO BILIRUBIN, TOTAL (test code = 2207) 0.7 MG/DL ALKALINE PHOSPHATASE (test code = 2204) 84 U/L AST (test code = 2218) 20 U/L ALT (test code = 2219) 18 U/L LIPID [id number] 00:00:00* Test Item Value Reference Range Interpretation Comme nts CHOLESTEROL (test code = 2210) 213 MG/DL TRIGLYCERIDES (test code = 2232) 145 MG/DL HDL CHOLESTEROL (test code = 2220) 46 MG/DL CALC LDL CHOL (test code = 2237) 140 MG/DL RISK RATIO LDL/HDL (test cod e = 2238) 3.04 RATIO LIPID [id number] 00:00:00* Test Item Value Reference Range Interpretation Comme nts CHOLESTEROL (test code = 2210) 213 MG/DL TRIGLYCERIDES (test code = 2232) 145 MG/DL HDL CHOLESTEROL (test code = 2220) 46 MG/DL CALC LDL CHOL (test code = 2237) 140 MG/DL RISK RATIO LDL/HDL (test cod e = 2238) 3.04 RATIO HEMOGLOBIN [id number] 00:00:00* Test Item Value Reference Range Interpretation Comme nts HEMOGLOBIN A1c (test code = 17259) 5.3 % HEMOGLOBIN [id number] 00:00:00* Test Item Value Reference Range Interpretation Comme nts HEMOGLOBIN A1c (test code = 44000) 5.3 % HEMOGLOBIN [id number] 00:00:00* Test Item Value Reference Range Interpretation Comme nts HEMOGLOBIN A1c (test code = 12077) 5.3 % HEMOGLOBIN [id number] 00:00:00* Test Item Value Reference Range Interpretation Comme nts HEMOGLOBIN A1c (test code = 04830) 5.3 % HEMOGLOBIN [id number] 00:00:00* Test Item Value Reference Range Interpretation Comme nts HEMOGLOBIN A1c (test code = 95090) 5.3 % HEMOGLOBIN [id number] 00:00:00* Test Item Value Reference Range Interpretation Comme nts HEMOGLOBIN A1c (test code = 02932) 5.3 % [id number] 00:00:00* Test Item Value Reference Range Interpretation Comme nts TSH, THIRD GENERATION (test code = 2821) 1.950 UIU/ML [id number] 00:00:00* Test Item Value Reference Range Interpretation Comme nts TSH, THIRD GENERATION (test code = 2821) 1.950 UIU/ML [id number] 00:00:00* Test Item Value Reference Range Interpretation Comme nts TSH, THIRD GENERATION (test code = 2821) 1.950 UIU/ML [id number] 00:00:00* Test Item Value Reference Range Interpretation Comme nts TSH, THIRD GENERATION (test code = 2821) 1.950 UIU/ML [id number] 00:00:00* Test Item Value Reference Range Interpretation Comme nts TSH, THIRD GENERATION (test code = 2821) 1.950 UIU/ML [id number] 00:00:00* Test Item Value Reference Range Interpretation Comme nts TSH, THIRD GENERATION (test code = 2821) 1.950 UIU/ML VITAMIN D, 25 [id number] 00:00:00* Test Item Value Reference Range Interpretation Comme nts VITAMIN D, 25 OH (test code = 4958) 48 NG/ML THYROID II PROFILE (T3U, T4, T7, TSH)[id number] 00:00:00* Test Item Value Reference Range Interpretation Comme nts T-UPTAKE (test code = 2817) 36.1 % THYROX. BIND. CAPAC. (test c ode = 66411) 0.9 T4 (THYROXINE) (test code = 2819) 11.7 UG/DL CORRECTED T4 (FTI) (test cod e = 2820) 13.0 UG/DL TSH, THIRD GENERATION (test code = 2821) 0.075 UIU/ML THYROID II PROFILE (T3U, T4, T7, TSH)2019-11-27 00:00:00* Test Item Value Reference Range Interpretation Comme nts T-UPTAKE (test code = 2817) 36.1 % THYROX. BIND. CAPAC. (test c ode = 88891) 0.9 T4 (THYROXINE) (test code = 2819) 11.7 UG/DL CORRECTED T4 (FTI) (test cod e = 2820) 13.0 UG/DL TSH, THIRD GENERATION (test code = 2821) 0.075 UIU/ML VITAMIN D, 25 [id number] 00:00:00* Test Item Value Reference Range Interpretation Comme nts VITAMIN D, 25 OH (test code = 4958) 48 NG/ML VITAMIN D, 25 [id number] 00:00:00* Test Item Value Reference Range Interpretation Comme nts VITAMIN D, 25 OH (test code = 4958) 48 NG/ML THYROID II PROFILE (T3U, T4, T7, TSH)2019-11-27 00:00:00* Test Item Value Reference Range Interpretation Comme nts T-UPTAKE (test code = 2816) 36.1 % THYROX. BIND. CAPAC. (test c ode = 00716) 0.9 T4 (THYROXINE) (test code = 2819) 11.7 UG/DL CORRECTED T4 (FTI) (test cod e = 2820) 13.0 UG/DL TSH, THIRD GENERATION (test code = 2821) 0.075 UIU/ML THYROID II PROFILE (T3U, T4, T7, TSH)2019-11-27 00:00:00* Test Item Value Reference Range Interpretation Comme nts T-UPTAKE (test code = 281) 36.1 % THYROX. BIND. CAPAC. (test c ode = 62094) 0.9 T4 (THYROXINE) (test code = 2819) 11.7 UG/DL CORRECTED T4 (FTI) (test cod e = 2820) 13.0 UG/DL TSH, THIRD GENERATION (test code = 2821) 0.075 UIU/ML VITAMIN D, 25 [id number] 00:00:00* Test Item Value Reference Range Interpretation Comme nts VITAMIN D, 25 OH (test code = 4958) 48 NG/ML THYROID II PROFILE (T3U, T4, T7, TSH)2019-10-29 00:00:00* Test Item Value Reference Range Interpretation Comme nts T-UPTAKE (test code = 2817) 41.9 % THYROX. BIND. CAPAC. (test c ode = 82659) 0.7 T4 (THYROXINE) (test code = 2819) 13.5 UG/DL CORRECTED T4 (FTI) (test cod e = 2820) 19.3 UG/DL TSH, THIRD GENERATION (test code = 2821) 0.467 UIU/ML THYROID II PROFILE (T3U, T4, T7, TSH)2019-10-29 00:00:00* Test Item Value Reference Range Interpretation Comme nts T-UPTAKE (test code = 2817) 41.9 % THYROX. BIND. CAPAC. (test c ode = 00069) 0.7 T4 (THYROXINE) (test code = 2819) 13.5 UG/DL CORRECTED T4 (FTI) (test cod e = 2820) 19.3 UG/DL TSH, THIRD GENERATION (test code = 2821) 0.467 UIU/ML THYROID II PROFILE (T3U, T4, T7, TSH)2019-10-29 00:00:00* Test Item Value Reference Range Interpretation Comme nts T-UPTAKE (test code = 7) 41.9 % THYROX. BIND. CAPAC. (test c ode = 36640) 0.7 T4 (THYROXINE) (test code = 2819) 13.5 UG/DL CORRECTED T4 (FTI) (test cod e = 2820) 19.3 UG/DL TSH, THIRD GENERATION (test code = 2821) 0.467 UIU/ML THYROID II PROFILE (T3U, T4, T7, TSH)2019-10-29 00:00:00* Test Item Value Reference Range Interpretation Comme nts T-UPTAKE (test code = 2816) 41.9 % THYROX. BIND. CAPAC. (test c ode = 91417) 0.7 T4 (THYROXINE) (test code = 2819) 13.5 UG/DL CORRECTED T4 (FTI) (test cod e = 2820) 19.3 UG/DL TSH, THIRD GENERATION (test code = 2821) 0.467 UIU/ML CBC W/AUTO [id number] 00:00:00* Test Item Value Reference Range Interpretation Comme nts WBC (test code = 1001) 5.5 K/UL [...] code = 1015) 228 K/UL CBC W/AUTO [id number] 00:00:00* Test Item Value Reference Range Interpretation Comme nts WBC (test code = 1001) 5.5 K/UL [...] code = 1015) 228 K/UL CBC W/AUTO [id number] 00:00:00* Test Item Value Reference Range Interpretation Comme nts WBC (test code = 1001) 5.5 K/UL [...] (test code = 1015) 228 K/UL HEMOGLOBIN [id number] 00:00:00* Test Item Value Reference Range Interpretation Comme nts HEMOGLOBIN A1c (test code = 64822) 5.4 % HEMOGLOBIN [id number] 00:00:00* Test Item Value Reference Range Interpretation Comme nts HEMOGLOBIN A1c (test code = 82598) 5.4 % HEMOGLOBIN [id number] 00:00:00* Test Item Value Reference Range Interpretation Comme nts HEMOGLOBIN A1c (test code = 73868) 5.4 % LIPID [id number] 00:00:00* Test Item Value Reference Range Interpretation Comme nts CHOLESTEROL (test code = 2210) 184 MG/DL TRIGLYCERIDES (test code = 2232) 95 MG/DL HDL CHOLESTEROL (test code = 2220) 51 MG/DL CALC LDL CHOL (test code = 2237) 114 MG/DL RISK RATIO LDL/HDL (test cod e = 2238) 2.24 RATIO LIPID [id number] 00:00:00* Test Item Value Reference Range Interpretation Comme nts CHOLESTEROL (test code = 2210) 184 MG/DL TRIGLYCERIDES (test code = 2232) 95 MG/DL HDL CHOLESTEROL (test code = 2220) 51 MG/DL CALC LDL CHOL (test code = 2237) 114 MG/DL RISK RATIO LDL/HDL (test cod e = 2238) 2.24 RATIO [id number] 00:00:00* Test Item Value Reference Range Interpretation Comme nts TSH, THIRD GENERATION (test code = 2821) 2.720 UIU/ML [id number] 00:00:00* Test Item Value Reference Range Interpretation Comme nts TSH, THIRD GENERATION (test code = 2821) 2.720 UIU/ML [id number] 00:00:00* Test Item Value Reference Range Interpretation Comme nts TSH, THIRD GENERATION (test code = 2821) 2.720 UIU/ML VITAMIN B 12 AND FOLIC [id number] 00:00:00* Test Item Value Reference Range Interpretation Comme nts VITAMIN B-12 (test code = 2840) >2000 PG/ML FOLIC ACID (test code = 2695) 5.4 UG/L VITAMIN B 12 AND FOLIC [id number] 00:00:00* Test Item Value Reference Range Interpretation Comme nts VITAMIN B-12 (test code = 2840) >2000 PG/ML FOLIC ACID (test code = 2695) 5.4 UG/L VITAMIN D, 25 [id number] 00:00:00* Test Item Value Reference Range Interpretation Comme nts VITAMIN D, 25 OH (test code = 4958) 24 NG/ML VITAMIN D, 25 [id number] 00:00:00* Test Item Value Reference Range Interpretation Comme nts VITAMIN D, 25 OH (test code = 4958) 24 NG/ML COMPREHENSIVE METABOLIC [id number] 00:00:00* Test Item Value Reference Range Interpretation Comme nts GLUCOSE (test code = 2217) 93 MG/DL BUN (test code = 2208) 12 MG/DL CREATININE (test code = 2214) 1.12 MG/DL eGFR AMER. (test cod e = 51048) 73 ML/MIN/1.73 eGFR NON- AMER. (test code = 89389) 63 ML/MIN/1.73 CALC BUN/CREAT (test code = 2235) 11 RATIO SODIUM (test code = 2231) 141 MEQ/L POTASSIUM (test code = 2228) 4.3 MEQ/L CHLORIDE (test code = 2215) 102 MEQ/L CARBON DIOXIDE (test code = 2206) 24 MEQ/L CALCIUM (test code = 2209) 9.4 MG/DL PROTEIN, TOTAL (test code = 2229) 7.3 G/DL ALBUMIN (test code = 2201) 4.6 G/DL CALC GLOBULIN (test code = 2240) 2.7 G/DL CALC A/G RATIO (test code = 2234) 1.7 RATIO BILIRUBIN, TOTAL (test code = 2207) 0.7 MG/DL ALKALINE PHOSPHATASE (test code = 2204) 77 U/L AST (test code = 2218) 18 U/L ALT (test code = 2219) 14 U/L COMPREHENSIVE METABOLIC [id number] 00:00:00* Test Item Value Reference Range Interpretation Comme nts GLUCOSE (test code = 2217) 93 MG/DL BUN (test code = 2208) 12 MG/DL CREATININE (test code = 2214) 1.12 MG/DL eGFR AMER. (test cod e = 94234) 73 ML/MIN/1.73 eGFR NON- AMER. (test code = 79009) 63 ML/MIN/1.73 CALC BUN/CREAT (test code = 2235) 11 RATIO SODIUM (test code = 2231) 141 MEQ/L POTASSIUM (test code = 2228) 4.3 MEQ/L CHLORIDE (test code = 2215) 102 MEQ/L CARBON DIOXIDE (test code = 2206) 24 MEQ/L CALCIUM (test code = 2209) 9.4 MG/DL PROTEIN, TOTAL (test code = 2229) 7.3 G/DL ALBUMIN (test code = 2201) 4.6 G/DL CALC GLOBULIN (test code = 2240) 2.7 G/DL CALC A/G RATIO (test code = 2234) 1.7 RATIO BILIRUBIN, TOTAL (test code = 2207) 0.7 MG/DL ALKALINE PHOSPHATASE (test code = 2204) 77 U/L AST (test code = 2218) 18 U/L ALT (test code = 2219) 14 U/L CBC W/AUTO [id number] 00:00:00* Test Item Value Reference Range Interpretation Comme nts WBC (test code = 1001) 5.5 K/UL [...] code = 1015) 228 K/UL CBC W/AUTO [id number] 00:00:00* Test Item Value Reference Range Interpretation Comme nts WBC (test code = 1001) 5.5 K/UL [...] code = 1015) 228 K/UL CBC W/AUTO [id number] 00:00:00* Test Item Value Reference Range Interpretation Comme nts WBC (test code = 1001) 5.5 K/UL [...] (test code = 1015) 228 K/UL HEMOGLOBIN [id number] 00:00:00* Test Item Value Reference Range Interpretation Comme nts HEMOGLOBIN A1c (test code = 90213) 5.4 % HEMOGLOBIN [id number] 00:00:00* Test Item Value Reference Range Interpretation Comme nts HEMOGLOBIN A1c (test code = 70678) 5.4 % HEMOGLOBIN [id number] 00:00:00* Test Item Value Reference Range Interpretation Comme nts HEMOGLOBIN A1c (test code = 46931) 5.4 % LIPID [id number] 00:00:00* Test Item Value Reference Range Interpretation Comme nts CHOLESTEROL (test code = 2210) 184 MG/DL TRIGLYCERIDES (test code = 2232) 95 MG/DL HDL CHOLESTEROL (test code = 2220) 51 MG/DL CALC LDL CHOL (test code = 2237) 114 MG/DL RISK RATIO LDL/HDL (test cod e = 2238) 2.24 RATIO LIPID [id number] 00:00:00* Test Item Value Reference Range Interpretation Comme nts CHOLESTEROL (test code = 2210) 184 MG/DL TRIGLYCERIDES (test code = 2232) 95 MG/DL HDL CHOLESTEROL (test code = 2220) 51 MG/DL CALC LDL CHOL (test code = 2237) 114 MG/DL RISK RATIO LDL/HDL (test cod e = 2238) 2.24 RATIO [id number] 00:00:00* Test Item Value Reference Range Interpretation Comme nts TSH, THIRD GENERATION (test code = 2821) 2.720 UIU/ML [id number] 00:00:00* Test Item Value Reference Range Interpretation Comme nts TSH, THIRD GENERATION (test code = 2821) 2.720 UIU/ML [id number] 00:00:00* Test Item Value Reference Range Interpretation Comme nts TSH, THIRD GENERATION (test code = 2821) 2.720 UIU/ML VITAMIN B 12 AND FOLIC [id number] 00:00:00* Test Item Value Reference Range Interpretation Comme nts VITAMIN B-12 (test code = 2840) >2000 PG/ML FOLIC ACID (test code = 2695) 5.4 UG/L VITAMIN B 12 AND FOLIC [id number] 00:00:00* Test Item Value Reference Range Interpretation Comme nts VITAMIN B-12 (test code = 2840) >2000 PG/ML FOLIC ACID (test code = 2695) 5.4 UG/L VITAMIN D, 25 [id number] 00:00:00* Test Item Value Reference Range Interpretation Comme nts VITAMIN D, 25 OH (test code = 4958) 24 NG/ML VITAMIN D, 25 [id number] 00:00:00* Test Item Value Reference Range Interpretation Comme nts VITAMIN D, 25 OH (test code = 4958) 24 NG/ML COMPREHENSIVE METABOLIC [id number] 00:00:00* Test Item Value Reference Range Interpretation Comme nts GLUCOSE (test code = 2217) 93 MG/DL BUN (test code = 2208) 12 MG/DL CREATININE (test code = 2214) 1.12 MG/DL eGFR AMER. (test cod e = 77638) 73 ML/MIN/1.73 eGFR NON- AMER. (test code = 66412) 63 ML/MIN/1.73 CALC BUN/CREAT (test code = 2235) 11 RATIO SODIUM (test code = 2231) 141 MEQ/L POTASSIUM (test code = 2228) 4.3 MEQ/L CHLORIDE (test code = 2215) 102 MEQ/L CARBON DIOXIDE (test code = 2206) 24 MEQ/L CALCIUM (test code = 2209) 9.4 MG/DL PROTEIN, TOTAL (test code = 2229) 7.3 G/DL ALBUMIN (test code = 2201) 4.6 G/DL CALC GLOBULIN (test code = 2240) 2.7 G/DL CALC A/G RATIO (test code = 2234) 1.7 RATIO BILIRUBIN, TOTAL (test code = 2207) 0.7 MG/DL ALKALINE PHOSPHATASE (test code = 2204) 77 U/L AST (test code = 2218) 18 U/L ALT (test code = 2219) 14 U/L COMPREHENSIVE METABOLIC [id number] 00:00:00* Test Item Value Reference Range Interpretation Comme nts GLUCOSE (test code = 2217) 93 MG/DL BUN (test code = 2208) 12 MG/DL CREATININE (test code = 2214) 1.12 MG/DL eGFR AMER. (test cod e = 41583) 73 ML/MIN/1.73 eGFR NON- AMER. (test code = 95046) 63 ML/MIN/1.73 CALC BUN/CREAT (test code = 2235) 11 RATIO SODIUM (test code = 2231) 141 MEQ/L POTASSIUM (test code = 2228) 4.3 MEQ/L CHLORIDE (test code = 2215) 102 MEQ/L CARBON DIOXIDE (test code = 2206) 24 MEQ/L CALCIUM (test code = 2209) 9.4 MG/DL PROTEIN, TOTAL (test code = 2229) 7.3 G/DL ALBUMIN (test code = 2201) 4.6 G/DL CALC GLOBULIN (test code = 2240) 2.7 G/DL CALC A/G RATIO (test code = 2234) 1.7 RATIO BILIRUBIN, TOTAL (test code = 2207) 0.7 MG/DL ALKALINE PHOSPHATASE (test code = 2204) 77 U/L AST (test code = 2218) 18 U/L ALT (test code = 2219) 14 U/L LIPID [id number] 00:00:00* Test Item Value Reference Range Interpretation Comme nts CHOLESTEROL (test code = 2210) 206 MG/DL TRIGLYCERIDES (test code = 2232) 94 MG/DL HDL CHOLESTEROL (test code = 2220) 61 MG/DL CALC LDL CHOL (test code = 2237) 126 MG/DL RISK RATIO LDL/HDL (test cod e = 2238) 2.07 RATIO LIPID [id number] 00:00:00* Test Item Value Reference Range Interpretation Comme nts CHOLESTEROL (test code = 2210) 206 MG/DL TRIGLYCERIDES (test code = 2232) 94 MG/DL HDL CHOLESTEROL (test code = 2220) 61 MG/DL CALC LDL CHOL (test code = 2237) 126 MG/DL RISK RATIO LDL/HDL (test cod e = 2238) 2.07 RATIO CBC W/AUTO [id number] 00:00:00* Test Item Value Reference Range Interpretation Comme nts WBC (test code = 1001) 6.6 K/UL [...] code = 1015) 300 K/UL CBC W/AUTO [id number] 00:00:00* Test Item Value Reference Range Interpretation Comme nts WBC (test code = 1001) 6.6 K/UL [...] code = 1015) 300 K/UL CBC W/AUTO [id number] 00:00:00* Test Item Value Reference Range Interpretation Comme nts WBC (test code = 1001) 6.6 K/UL [...] (test code = 1015) 300 K/UL HEMOGLOBIN [id number] 00:00:00* Test Item Value Reference Range Interpretation Comme nts HEMOGLOBIN A1c (test code = 40941) 5.7 % HEMOGLOBIN [id number] 00:00:00* Test Item Value Reference Range Interpretation Comme nts HEMOGLOBIN A1c (test code = 28337) 5.7 % HEMOGLOBIN [id number] 00:00:00* Test Item Value Reference Range Interpretation Comme nts HEMOGLOBIN A1c (test code = 14534) 5.7 % [id number] 00:00:00* Test Item Value Reference Range Interpretation Comme nts TSH (test code = 2821) 1.3 UIU/ML [id number] 00:00:00* Test Item Value Reference Range Interpretation Comme nts TSH (test code = 2821) 1.3 UIU/ML [id number] 00:00:00* Test Item Value Reference Range Interpretation Comme nts TSH (test code = 2821) 1.3 UIU/ML COMPREHENSIVE METABOLIC [id number] 00:00:00* Test Item Value Reference Range Interpretation Comme nts GLUCOSE (test code = 2217) 87 MG/DL BUN (test code = 2208) 19 MG/DL CREATININE (test code = 2214) 1.13 MG/DL eGFR AMER. (test cod e = 55132) 73 ML/MIN/1.73 eGFR NON- AMER. (test code = 74102) 63 ML/MIN/1.73 CALC BUN/CREAT (test code = 2235) 17 RATIO SODIUM (test code = 2231) 139 MEQ/L POTASSIUM (test code = 2228) 4.1 MEQ/L CHLORIDE (test code = 2215) 99 MEQ/L CARBON DIOXIDE (test code = 2206) 23 MEQ/L CALCIUM (test code = 2209) 10.1 MG/DL PROTEIN, TOTAL (test code = 2229) 8.3 G/DL ALBUMIN (test code = 2201) 5.3 G/DL CALC GLOBULIN (test code = 2240) 3.0 G/DL CALC A/G RATIO (test code = 2234) 1.8 RATIO BILIRUBIN, TOTAL (test code = 2207) 0.7 MG/DL ALKALINE PHOSPHATASE (test code = 2204) 69 U/L AST (test code = 2218) 18 U/L ALT (test code = 2219) 10 U/L COMPREHENSIVE METABOLIC [id number] 00:00:00* Test Item Value Reference Range Interpretation Comme nts GLUCOSE (test code = 2217) 87 MG/DL BUN (test code = 2208) 19 MG/DL CREATININE (test code = 2214) 1.13 MG/DL eGFR AMER. (test cod e = 60498) 73 ML/MIN/1.73 eGFR NON- AMER. (test code = 45350) 63 ML/MIN/1.73 CALC BUN/CREAT (test code = 2235) 17 RATIO SODIUM (test code = 2231) 139 MEQ/L POTASSIUM (test code = 2228) 4.1 MEQ/L CHLORIDE (test code = 2215) 99 MEQ/L CARBON DIOXIDE (test code = 2206) 23 MEQ/L CALCIUM (test code = 2209) 10.1 MG/DL PROTEIN, TOTAL (test code = 2229) 8.3 G/DL ALBUMIN (test code = 2201) 5.3 G/DL CALC GLOBULIN (test code = 2240) 3.0 G/DL CALC A/G RATIO (test code = 2234) 1.8 RATIO BILIRUBIN, TOTAL (test code = 2207) 0.7 MG/DL ALKALINE PHOSPHATASE (test code = 2204) 69 U/L AST (test code = 2218) 18 U/L ALT (test code = 2219) 10 U/L LIPID [id number] 00:00:00* Test Item Value Reference Range Interpretation Comme nts CHOLESTEROL (test code = 2210) 206 MG/DL TRIGLYCERIDES (test code = 2232) 94 MG/DL HDL CHOLESTEROL (test code = 2220) 61 MG/DL CALC LDL CHOL (test code = 2237) 126 MG/DL RISK RATIO LDL/HDL (test cod e = 2238) 2.07 RATIO LIPID [id number] 00:00:00* Test Item Value Reference Range Interpretation Comme nts CHOLESTEROL (test code = 2210) 206 MG/DL TRIGLYCERIDES (test code = 2232) 94 MG/DL HDL CHOLESTEROL (test code = 2220) 61 MG/DL CALC LDL CHOL (test code = 2237) 126 MG/DL RISK RATIO LDL/HDL (test cod e = 2238) 2.07 RATIO CBC W/AUTO [id number] 00:00:00* Test Item Value Reference Range Interpretation Comme nts WBC (test code = 1001) 6.6 K/UL [...] code = 1015) 300 K/UL CBC W/AUTO [id number] 00:00:00* Test Item Value Reference Range Interpretation Comme nts WBC (test code = 1001) 6.6 K/UL [...] code = 1015) 300 K/UL CBC W/AUTO [id number] 00:00:00* Test Item Value Reference Range Interpretation Comme nts WBC (test code = 1001) 6.6 K/UL [...] (test code = 1015) 300 K/UL HEMOGLOBIN [id number] 00:00:00* Test Item Value Reference Range Interpretation Comme nts HEMOGLOBIN A1c (test code = 42230) 5.7 % HEMOGLOBIN [id number] 00:00:00* Test Item Value Reference Range Interpretation Comme nts HEMOGLOBIN A1c (test code = 37758) 5.7 % HEMOGLOBIN [id number] 00:00:00* Test Item Value Reference Range Interpretation Comme nts HEMOGLOBIN A1c (test code = 19335) 5.7 % [id number] 00:00:00* Test Item Value Reference Range Interpretation Comme nts TSH (test code = 2821) 1.3 UIU/ML [id number] 00:00:00* Test Item Value Reference Range Interpretation Comme nts TSH (test code = 2821) 1.3 UIU/ML [id number] 00:00:00* Test Item Value Reference Range Interpretation Comme nts TSH (test code = 2821) 1.3 UIU/ML COMPREHENSIVE METABOLIC [id number] 00:00:00* Test Item Value Reference Range Interpretation Comme nts GLUCOSE (test code = 2217) 87 MG/DL BUN (test code = 2208) 19 MG/DL CREATININE (test code = 2214) 1.13 MG/DL eGFR AMER. (test cod e = 56014) 73 ML/MIN/1.73 eGFR NON- AMER. (test code = 39397) 63 ML/MIN/1.73 CALC BUN/CREAT (test code = 2235) 17 RATIO SODIUM (test code = 2231) 139 MEQ/L POTASSIUM (test code = 2228) 4.1 MEQ/L CHLORIDE (test code = 2215) 99 MEQ/L CARBON DIOXIDE (test code = 2206) 23 MEQ/L CALCIUM (test code = 2209) 10.1 MG/DL PROTEIN, TOTAL (test code = 2229) 8.3 G/DL ALBUMIN (test code = 2201) 5.3 G/DL CALC GLOBULIN (test code = 2240) 3.0 G/DL CALC A/G RATIO (test code = 2234) 1.8 RATIO BILIRUBIN, TOTAL (test code = 2207) 0.7 MG/DL ALKALINE PHOSPHATASE (test code = 2204) 69 U/L AST (test code = 2218) 18 U/L ALT (test code = 2219) 10 U/L COMPREHENSIVE METABOLIC [id number] 00:00:00* Test Item Value Reference Range Interpretation Comme nts GLUCOSE (test code = 2217) 87 MG/DL BUN (test code = 2208) 19 MG/DL CREATININE (test code = 2214) 1.13 MG/DL eGFR AMER. (test cod e = 11469) 73 ML/MIN/1.73 eGFR NON- AMER. (test code = 21066) 63 ML/MIN/1.73 CALC BUN/CREAT (test code = 2235) 17 RATIO SODIUM (test code = 2231) 139 MEQ/L POTASSIUM (test code = 2228) 4.1 MEQ/L CHLORIDE (test code = 2215) 99 MEQ/L CARBON DIOXIDE (test code = 2206) 23 MEQ/L CALCIUM (test code = 2209) 10.1 MG/DL PROTEIN, TOTAL (test code = 2229) 8.3 G/DL ALBUMIN (test code = 2201) 5.3 G/DL CALC GLOBULIN (test code = 2240) 3.0 G/DL CALC A/G RATIO (test code = 2234) 1.8 RATIO BILIRUBIN, TOTAL (test code = 2207) 0.7 MG/DL ALKALINE PHOSPHATASE (test code = 2204) 69 U/L AST (test code = 2218) 18 U/L ALT (test code = 2219) 10 U/L CBC W/AUTO [id number] 00:00:00* Test Item Value Reference Range Interpretation Comme nts WBC (test code = 1001) 6.8 K/UL [...] COUNT (test code = 1015) 267 K/UL [id number] 00:00:00* Test Item Value Reference Range Interpretation Comme nts TSH (test code = 2821) 3.6 UIU/ML [id number] 00:00:00* Test Item Value Reference Range Interpretation Comme nts TSH (test code = 2821) 3.6 UIU/ML [id number] 00:00:00* Test Item Value Reference Range Interpretation Comme nts TSH (test code = 2821) 3.6 UIU/ML LIPID [id number] 00:00:00* Test Item Value Reference Range Interpretation Comme nts CHOLESTEROL (test code = 2210) 195 MG/DL TRIGLYCERIDES (test code = 2232) 98 MG/DL HDL CHOLESTEROL (test code = 2220) 50 MG/DL CALCULATED LDL CHOL (test co de = 2237) 125 MG/DL RISK RATIO LDL/HDL (test cod e = 2238) 2.51 RATIO LIPID [id number] 00:00:00* Test Item Value Reference Range Interpretation Comme nts CHOLESTEROL (test code = 2210) 195 MG/DL TRIGLYCERIDES (test code = 2232) 98 MG/DL HDL CHOLESTEROL (test code = 2220) 50 MG/DL CALCULATED LDL CHOL (test co de = 2237) 125 MG/DL RISK RATIO LDL/HDL (test cod e = 2238) 2.51 RATIO COMPREHENSIVE METABOLIC [id number] 00:00:00* Test Item Value Reference Range Interpretation Comme nts GLUCOSE (test code = 2217) 86 MG/DL BUN (test code = 2208) 13 MG/DL CREATININE (test code = 2214) 1.1 MG/DL eGFR AMER. (test cod e = 42307) 69 ML/MIN/1.73 eGFR NON- AMER. (test code = 64317) 57 ML/MIN/1.73 CALCULATED BUN/CREAT (test code = 2235) 12 RATIO SODIUM (test code = 2231) 140 MEQ/L POTASSIUM (test code = 2228) 4.4 MEQ/L CHLORIDE (test code = 2215) 100 MEQ/L CARBON DIOXIDE (test code = 2206) 28 MEQ/L CALCIUM (test code = 2209) 9.5 MG/DL PROTEIN, TOTAL (test code = 2229) 7.4 G/DL ALBUMIN (test code = 2201) 4.4 G/DL CALCULATED GLOBULIN (test co de = 2240) 3.0 G/DL CALCULATED A/G RATIO (test code = 2234) 1.5 RATIO BILIRUBIN, TOTAL (test code = 2207) 0.6 MG/DL ALKALINE PHOSPHATASE (test code = 2204) 66 U/L SGOT (AST) (test code = 2218) 13 U/L SGPT (ALT) (test code = 2219) 8 U/L COMPREHENSIVE METABOLIC [id number] 00:00:00* Test Item Value Reference Range Interpretation Comme nts GLUCOSE (test code = 2217) 86 MG/DL BUN (test code = 2208) 13 MG/DL CREATININE (test code = 2214) 1.1 MG/DL eGFR AMER. (test cod e = 98827) 69 ML/MIN/1.73 eGFR NON- AMER. (test code = 28793) 57 ML/MIN/1.73 CALCULATED BUN/CREAT (test code = 2235) 12 RATIO SODIUM (test code = 2231) 140 MEQ/L POTASSIUM (test code = 2228) 4.4 MEQ/L CHLORIDE (test code = 2215) 100 MEQ/L CARBON DIOXIDE (test code = 2206) 28 MEQ/L CALCIUM (test code = 2209) 9.5 MG/DL PROTEIN, TOTAL (test code = 2229) 7.4 G/DL ALBUMIN (test code = 2201) 4.4 G/DL CALCULATED GLOBULIN (test co de = 2240) 3.0 G/DL CALCULATED A/G RATIO (test code = 2234) 1.5 RATIO BILIRUBIN, TOTAL (test code = 2207) 0.6 MG/DL ALKALINE PHOSPHATASE (test code = 2204) 66 U/L SGOT (AST) (test code = 2218) 13 U/L SGPT (ALT) (test code = 2219) 8 U/L CBC W/AUTO [id number] 00:00:00* Test Item Value Reference Range Interpretation Comme nts WBC (test code = 1001) 6.8 K/UL [...] code = 1015) 267 K/UL CBC W/AUTO [id number] 00:00:00* Test Item Value Reference Range Interpretation Comme nts WBC (test code = 1001) 6.8 K/UL [...] code = 1015) 267 K/UL CBC W/AUTO [id number] 00:00:00* Test Item Value Reference Range Interpretation Comme nts WBC (test code = 1001) 6.8 K/UL [...] COUNT (test code = 1015) 267 K/UL [id number] 00:00:00* Test Item Value Reference Range Interpretation Comme nts TSH (test code = 2821) 3.6 UIU/ML [id number] 00:00:00* Test Item Value Reference Range Interpretation Comme nts TSH (test code = 2821) 3.6 UIU/ML [id number] 00:00:00* Test Item Value Reference Range Interpretation Comme nts TSH (test code = 2821) 3.6 UIU/ML LIPID [id number] 00:00:00* Test Item Value Reference Range Interpretation Comme nts CHOLESTEROL (test code = 2210) 195 MG/DL TRIGLYCERIDES (test code = 2232) 98 MG/DL HDL CHOLESTEROL (test code = 2220) 50 MG/DL CALCULATED LDL CHOL (test co de = 2237) 125 MG/DL RISK RATIO LDL/HDL (test cod e = 2238) 2.51 RATIO LIPID [id number] 00:00:00* Test Item Value Reference Range Interpretation Comme nts CHOLESTEROL (test code = 2210) 195 MG/DL TRIGLYCERIDES (test code = 2232) 98 MG/DL HDL CHOLESTEROL (test code = 2220) 50 MG/DL CALCULATED LDL CHOL (test co de = 2237) 125 MG/DL RISK RATIO LDL/HDL (test cod e = 2238) 2.51 RATIO COMPREHENSIVE METABOLIC [id number] 00:00:00* Test Item Value Reference Range Interpretation Comme nts GLUCOSE (test code = 2217) 86 MG/DL BUN (test code = 2208) 13 MG/DL CREATININE (test code = 2214) 1.1 MG/DL eGFR AMER. (test cod e = 39342) 69 ML/MIN/1.73 eGFR NON- AMER. (test code = 27589) 57 ML/MIN/1.73 CALCULATED BUN/CREAT (test code = 2235) 12 RATIO SODIUM (test code = 2231) 140 MEQ/L POTASSIUM (test code = 2228) 4.4 MEQ/L CHLORIDE (test code = 2215) 100 MEQ/L CARBON DIOXIDE (test code = 2206) 28 MEQ/L CALCIUM (test code = 2209) 9.5 MG/DL PROTEIN, TOTAL (test code = 2229) 7.4 G/DL ALBUMIN (test code = 2201) 4.4 G/DL CALCULATED GLOBULIN (test co de = 2240) 3.0 G/DL CALCULATED A/G RATIO (test code = 2234) 1.5 RATIO BILIRUBIN, TOTAL (test code = 2207) 0.6 MG/DL ALKALINE PHOSPHATASE (test code = 2204) 66 U/L SGOT (AST) (test code = 2218) 13 U/L SGPT (ALT) (test code = 2219) 8 U/L COMPREHENSIVE METABOLIC [id number] 00:00:00* Test Item Value Reference Range Interpretation Comme nts GLUCOSE (test code = 2217) 86 MG/DL BUN (test code = 2208) 13 MG/DL CREATININE (test code = 2214) 1.1 MG/DL eGFR AMER. (test cod e = 56482) 69 ML/MIN/1.73 eGFR NON- AMER. (test code = 07448) 57 ML/MIN/1.73 CALCULATED BUN/CREAT (test code = 2235) 12 RATIO SODIUM (test code = 2231) 140 MEQ/L POTASSIUM (test code = 2228) 4.4 MEQ/L CHLORIDE (test code = 2215) 100 MEQ/L CARBON DIOXIDE (test code = 2206) 28 MEQ/L CALCIUM (test code = 2209) 9.5 MG/DL PROTEIN, TOTAL (test code = 2229) 7.4 G/DL ALBUMIN (test code = 2201) 4.4 G/DL CALCULATED GLOBULIN (test co de = 2240) 3.0 G/DL CALCULATED A/G RATIO (test code = 2234) 1.5 RATIO BILIRUBIN, TOTAL (test code = 2207) 0.6 MG/DL ALKALINE PHOSPHATASE (test code = 2204) 66 U/L SGOT (AST) (test code = 2218) 13 U/L SGPT (ALT) (test code = 2219) 8 U/L CBC W/AUTO [id number] 00:00:00* Test Item Value Reference Range Interpretation Comme nts WBC (test code = 1001) 6.8 K/UL [...] code = 1015) 267 K/UL CBC W/AUTO [id number] 00:00:00* Test Item Value Reference Range Interpretation Comme nts WBC (test code = 1001) 6.8 K/UL [...]
--- NOTE | 2023-09-27 12:26 | EDPHYS ---
Physician Documentation [facility] Name: Lisbet Bo Age: 42 yrs Sex: Female : 1980 Arrival Date: 09/27/2023 Time: 10:57 Bed 12 Private MD: ED Physician Juan Mcfadden HPI: 09/26 12:20 This 42 yrs old Female presents to ER via Ambulatory with complaints of Insect debbie Bite. 12:20 The patient presents with cellulitis of the scalp, the patient presents with a swollen debbie area of the scalp. Description: The affected area is small, confluent, erythematous. Onset: The symptoms/episode began/occurred 3 day(s) ago. Associated signs and symptoms: The patient has no apparent associated signs or symptoms. Modifying factors: the symptoms are alleviated by nothing, the symptoms are aggravated by pressure, squeezing the lesion and expressing the contents, touching. Severity of symptoms: At their worst the symptoms were mild, in the emergency department the symptoms are unchanged. The patient has experienced similar episodes in the past, several times. [employer]: 11:22 LMP 07/2023, unknown iw Historical: - Allergies: 11:21 NKA; iw - PMHx: 11:21 Colitis; gastritis; Hypercholesterolemia; Hypertension; Hypothyroidism; pre-diabetic; iw - Immunization history:: Adult Immunizations. - Social history:: Smoking status: Patient denies any tobacco usage or history of. - Family history:: not pertinent. ROS: 12:20 Constitutional: Negative for fever, chills, and weight loss, Eyes: Negative for injury, debbie pain, redness, and discharge, ENT: Negative for injury, pain, and discharge, Cardiovascular: Negative for chest pain, palpitations, and edema, Respiratory: Negative for shortness of breath, cough, wheezing, and pleuritic chest pain, Abdomen/GI: Negative for abdominal pain, nausea, vomiting, diarrhea, and constipation, Back: Negative for injury and pain, : Negative for injury, bleeding, discharge, and swelling, MS/Extremity: Negative for injury and deformity, Neuro: Negative for headache, weakness, numbness, tingling, and seizure, Psych: Negative for depression, anxiety, suicide ideation, homicidal ideation, and hallucinations, Allergy/Immunology: Negative for hives, rash, and allergies, Endocrine: Negative for neck swelling, polydipsia, polyuria, polyphagia, and marked weight changes, Hematologic/Lymphatic: Negative for swollen nodes, abnormal bleeding, and unusual bruising, 12:20 Neck: Positive for swelling, tenderness, of the base of the skull, Exam: 12:20 Constitutional: This is a well developed, well nourished patient who is awake, alert, debbie and in no acute distress. Head/Face: Normocephalic, atraumatic. Eyes: Pupils equal round and reactive to light, extra-ocular motions intact. Lids and lashes normal. Conjunctiva and sclera are non-icteric and not injected. Cornea within normal limits. Periorbital areas with no swelling, redness, or edema. ENT: Nares patent. No nasal discharge, no septal abnormalities noted. Tympanic membranes are normal and external auditory canals are clear. Oropharynx with no redness, swelling, or masses, exudates, or evidence of obstruction, uvula midline. Mucous membranes moist. Neck: Trachea midline, no thyromegaly or masses palpated, and no cervical lymphadenopathy. Supple, full range of motion without nuchal rigidity, or vertebral point tenderness. No Meningismus. Chest/axilla: Normal chest wall appearance and motion. Nontender with no deformity. No lesions are appreciated. Cardiovascular: Regular rate and rhythm with a normal S1 and S2. No gallops, murmurs, or rubs. Normal PMI, no JVD. No pulse deficits. Respiratory: Lungs have equal breath sounds bilaterally, clear to auscultation and percussion. No rales, rhonchi or wheezes noted. No increased work of breathing, no retractions or nasal flaring. Abdomen/GI: Soft, non-tender, with normal bowel sounds. No distension or tympany. No guarding or rebound. No evidence of tenderness throughout. Back: No spinal tenderness. No costovertebral tenderness. Full range of motion. MS/ Extremity: Pulses equal, no cyanosis. Neurovascular intact. Full, normal range of motion. Neuro: Awake and alert, GCS 15, oriented to person, place, time, and situation. Cranial nerves II-XII grossly intact. Motor strength 5/5 in all extremities. Sensory grossly intact. Cerebellar exam normal. Normal gait. Psych: Awake, alert, with orientation to person, place and time. Behavior, mood, and affect are within normal limits. 12:20 Skin: abscess, that is small, of the back of neck, with fluctuance, with induration, with surrounding cellulitis, cellulitis, that is minimal, induration, that is mild is noted, injury, is not appreciated, Vital Signs: 11:19 BP 120 / 56; Pulse 82; Resp 16; Temp 98.4; Pulse Ox 100% on R/A; Weight 69.4 kg; Height iw 5 ft. 5 in. ; 12:15 BP 118 / 62; Pulse 78; Resp 15; Pulse Ox 99% ; ko1 11:19 Body Mass Index 25.46 (69.40 kg, 165.1 cm) iw Procedures: 12:27 I \T\ D: Incision and drainage was performed for an abscess of the Prepped with Betadine, debbie Anesthetized with nothing. Incised with #11 blade. Drained small amount purulent fluid. Dressing: non-Adherent dressing, the patient tolerated the procedure well. MDM: 11:08 Patient medically screened. debbie 12:22 Differential diagnosis: abscess, cellulitis, insect bite. Data reviewed: vital signs, debbie nurses notes. Consideration of Admission/Observation Escalation of care including admission/observation considered. I considered the following discharge prescriptions or medication management in the emergency department Medications were administered in the Emergency Department. See MAR. Test considered but Not performed: Labs: no labs. Historians other than the Patient: pt well informed. Care significantly affected by the following chronic conditions: Diabetes, Hypertension, gastritis, high cholesterol, colitis. Administered Medications: 12:24 Drug: Mupirocin Topical Ointment 2 % 1 application Topical once Route: Topical; Site: ko1 affected area; 12:41 Follow up: Response: No adverse reaction ko1 12:24 Drug: Trimethoprim-Sulfamethoxazole PO (160 mg-800 mg (DS) 1 tablet PO once Route: PO; ko1 12:41 Follow up: Response: No adverse reaction ko1 12:24 Drug: Cephalexin PO 500 mg PO once Route: PO; ko1 12:41 Follow up: Response: No adverse reaction ko1 12:36 Drug: Ibuprofen PO 600 mg PO once Route: PO; ko1 12:41 Follow up: Response: No adverse reaction ko1 Disposition Summary: 09/27/23 12:25 Discharge Ordered Notes: Location: Home debbie Problem: new debbie Symptoms: have improved debbie Condition: Stable debbie Diagnosis - Cellulitis, unspecified debbie - Sebaceous cyst debbie - Cutaneous abscess of neck debbie Followup: [facility] - With: Private Physician - When: 2 - 3 days - Reason: Recheck today's complaints, Continuance of care, Re-evaluation by your physician Followup: [facility] - With: Massimo Soto MD - When: 2 - 3 days - Reason: Recheck today's complaints, Re-evaluation by your physician Discharge Instructions: - Discharge Summary Sheet [facility] - Skin Abscess debbie - Cellulitis, Adult [facility] - Epidermoid Cyst Removal [facility] - Incision and Drainage debbie - Epidermoid Cyst, [id number] debbie - Epidermoid Cyst debbie - Skin Abscess, Pkuq-ka-[id number] [facility] - Incision and Drainage, Care After [facility] Forms: - Medication Reconciliation Form [facility] - Thank You Letter [facility] - Antibiotic Education [facility] - Prescription Opioid Use [facility] - Patient Portal Instructions [facility] - Leadership Thank You Letter [facility] Prescriptions: - Centany 2 % Topical ointment - apply 1 application TOPICAL route 3 times per day; 15 gram; Refills: 0, Product [facility] Selection Permitted - Cephalexin 500 mg Oral Capsule - take 1 capsule ORAL route every 6 hours for 10 days; 40 capsule; Refills: 0, [facility] Product Selection Permitted - Ibuprofen 600 mg Oral Tablet - take 1 tablet ORAL route every 6 hours As needed take with food; 30 tablet; [facility] Refills: 0, Product Selection Permitted - Bactrim DS 800-160 mg Oral Tablet - take 1 tablet ORAL route every 12 hours for 10 days; 20 tablet; Refills: 0, [facility] Product Selection Permitted Signatures: Juan Mcfadden MD MD cha Williams, Irene, RN Manisha Villanueva RN RN ko1
--- NOTE | 2023-09-27 12:26 | ER ---
Nurse's Notes [facility] Name: Lisbet Bo Age: 42 yrs Sex: Female : 1980 Arrival Date: 09/27/2023 Time: 10:57 Bed 12 Private MD: Diagnosis: Cellulitis, unspecified;Sebaceous cyst;Cutaneous abscess of neck Presentation: 09/26 11:19 Chief complaint: Patient states: abscess to back of neck since Saturday , started as a iw pimple, got bigger and more painful, not draining. Coronavirus screen: At this time, the client does not indicate any symptoms associated with coronavirus-19. Ebola Screen: Patient negative for fever greater than or equal to 101.5 degrees Fahrenheit, and additional compatible Ebola Virus Disease symptoms Patient denies exposure to infectious person. Patient denies travel to an Ebola-affected area in the 21 days before illness onset. No symptoms or risks identified at this time. Initial Sepsis Screen: Does the patient meet any 2 criteria? No. Patient's initial sepsis screen is negative. Does the patient have a suspected source of infection? No. Patient's initial sepsis screen is negative. Risk Assessment: Do you want to hurt yourself or someone else? Patient reports no desire to harm self or others. Onset of symptoms was September 23, 2023. 11:19 Method Of Arrival: Ambulatory iw 11:19 Acuity: RONAL 4 iw Triage Assessment: 12:15 General: Appears in no apparent distress. ko1 12:42 Bite description: bite sustained to back of neck by an unknown animal, animal ko1 information: vaccination(s). 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 - Social history:: Smoking status: Patient denies any tobacco usage or history of. - Family history:: not pertinent. Screenin:15 [facility] ED Fall Risk Assessment (Adult) History of falling in the last 3 months, ko1 including since admission No falls in past 3 months (0 pts) Confusion or Disorientation No (0 pts) Intoxicated or Sedated No (0 pts) Impaired Gait No (0 pts) Mobility Assist Device Used No (0 pt) Altered Elimination No (0 pt) Score/Fall Risk Level 0 - 2 = Low Risk Oriented to surroundings, Maintained a safe environment, Educated pt \T\ family on fall prevention, incl call for assistance when getting out of bed, Assessed \T\ reinforced patient's understanding of fall precautions, Provided non-skid footwear, Hourly rounding (assess needs \T\ fall precautionary measures) done, Used ambulatory aids as needed (educated on \T\ assisted with), Used gait belt as appropriate. Abuse screen: Denies threats or abuse. Denies injuries from another. Nutritional screening: No deficits noted. Tuberculosis screening: No symptoms or risk factors identified. Assessment: 12:15 General: Appears in no apparent distress. Behavior is calm, cooperative, appropriate ko1 for age. Pain: Complains of pain in back of neck. Neuro: No deficits noted. Cardiovascular: No deficits noted. Respiratory: No deficits noted. GI: No deficits noted. : No deficits noted. EENT: No deficits noted. Derm: Skin is intact, abscess on back of neck. Musculoskeletal: No deficits noted. 12:42 Derm: Skin is pink, warm \T\ dry. ko1 Vital Signs: 11:19 BP 120 / 56; Pulse 82; Resp 16; Temp 98.4; Pulse Ox 100% on R/A; Weight 69.4 kg; Height iw 5 ft. 5 in. ; 12:15 BP 118 / 62; Pulse 78; Resp 15; Pulse Ox 99% ; ko1 11:19 Body Mass Index 25.46 (69.40 kg, 165.1 cm) iw ED Course: 10:58 Patient arrived in ED. mr 11:08 Juan Mcfadden MD is Attending Physician. debbie 11:20 Triage completed. iw 11:22 Arm band placed on. iw 12:14 Manisha Medina, ROSS is Primary Nurse. ko1 12:15 Patient has correct armband on for positive identification. Bed in low position. Call ko1 light in reach. Side rails up X 1. Provided Education on: pablo. Pulse ox on. NIBP on. Door closed. Noise minimized. Lights dimmed. 12:15 No provider procedures requiring assistance completed. Patient did not have IV access ko1 during this emergency room visit. Wound care: to. 12:15 Dressings: 4X4s. Wound care: was cleaned with Betadine, dressed with 4X4s, centany. ko1 12:24 Massimo Soto MD is Referral Physician. [facility] Administered Medications: 12:24 Drug: Mupirocin Topical Ointment 2 % 1 application Topical once Route: Topical; Site: ko1 affected area; 12:41 Follow up: Response: No adverse reaction ko1 12:24 Drug: Trimethoprim-Sulfamethoxazole PO (160 mg-800 mg (DS) 1 tablet PO once Route: PO; ko1 12:41 Follow up: Response: No adverse reaction ko1 12:24 Drug: Cephalexin PO 500 mg PO once Route: PO; ko1 12:41 Follow up: Response: No adverse reaction ko1 12:36 Drug: Ibuprofen PO 600 mg PO once Route: PO; ko1 12:41 Follow up: Response: No adverse reaction ko1 Medication: 12:15 VIS not applicable for this client. ko1 Outcome: 12:25 Discharge ordered by . [facility] 12:41 Discharged to home ambulatory, ko1 12:41 Condition: stable 12:41 Discharge instructions given to patient, Instructed on discharge instructions, follow up and referral plans. medication usage, wound care, Demonstrated understanding of instructions, follow-up care, medications, wound care, Prescriptions given X 4, 12:43 Patient left the ED. ko1 Signatures: Juan Mcfadden MD MD cha Rivera, Mary, Bennie Avery mr Yaa Matias, RN Manisha Villanueva RN RN ko1
[2023-09-27 12:58] VITALS: BP 118/62; TEMP 98.4; O2SAT 99
== END ==
LOC: ER 10:57
PROC: 0H94XZZ Drainage of Neck Skin, External Approach (ICD-10-PCS; principal; 2023-09-27)
DX: L03.811 Cellulitis of head [any part, except face] (principal); L72.3 Sebaceous cyst; L02.11 Cutaneous abscess of neck
CPT/HCPCS: 99284

== ENCOUNTER 2024-06-22 21:14 | Emergency (ER) | payer SELFPAY ==
--- OUTSIDE RECORDS SUMMARY | 2024-06-22 21:25 | XMS REPORT | Continuity of Care Document ---
Author Name Unknown Address [address] [facility] [address] [place] [address] [facility] thconnect Address [address] [facility] [place] [address] Care Team Providers Care Radiographer Angiogram Name Role Phone No , Pcp Primary Care Physician UnavailAUGUSTO Max Attending Clinician Unavailable Rodolfo Kamara MD, Suman Ny Attending Clinic edwar Augusto Moreno MD Attending Clinici an Bean VILLANUEVA, Sendil K.H. Attending Clinician + [phone] KACIE MANZANO K.H. Attending Clinician UnavailCRISTOFER Avelar Attending Clinician Unavail able CRISTOFER LYNCH Attending Clinician Unavail Cristofer Agrawal MD Attending Clinician [phone] JUAN JENSEN Attending Clinician UnavailJUAN Awad Attending Clinician UnavailJADEN Wilcox Attending Clinician Unavailable Cheli SANDHU Attending Clinician Unavailable Cheli Roth Attending Clinician [phone] Doctor Unassigned, [place] Attending Clinician GLENN Sanchez Attending Clinician Glenn Miguel MD Attending Clinician [phone] Referred, Self Attending Clinician Unavailable Bean VILLANUEVA, Kacie K.H. Attending Clinician + [phone] Chata Bhakta Attending Clinician + CHATA HOLMAN Attending Clinician Unavail humberto CUEVAP, Glenn Ralph Attending Clinician [phone] GLENN BAKER Attending Clinician UnavailMarcelino CUEVAP, Osiel Rosado Attending Clinician + [phone] OSIEL VIVAS Attending Clinician Unavailab Guera Issa DO Attending Clinician [phone] Visit, [facility] Nurse Attending Clinician Dahlia Bermudez [facility] Resident Attending Clinician Unavailab grace Daley MD, Naveed Bello Attending Clinician [phone] AUGUSTO MORENO Admitting Clinician Unavailable Josh VILLANUEVA, Augusto Ross Admitting Clinici an KACIE MANZANO K.H. Admitting Clinician UnavailGLENN Caldwell Admitting Clinician Unavaila max Referred, Self Admitting Clinician Unavailable Physician, No Primary or Family Admitting Clinic edwar Unavailable Payers Payer Name Policy Type Policy Number Effective Date Expirati on Date Source COMMERCIAL NON-CONTRACT GENERIC [id number] 2020 00:00:00 [facility] Medicaid [id number] 2023 00:00:00 MEDICAID [place] PENDING PENDING 2023 00:00:00 [employer] [id number] 2023 00:00:00 Problems Condition Name Condition Details Condition Category Status Onset Date Resolution Date Last Treatment Date Treating Clinician Comments Source Problem Active 02-26 00:00: 00 Panoram ic - unspeci fied Chronic kidney disease stage 3A Chronic Kidney Disease Stage 3a Problem Active 02-17 00:00: 00 Panoram ic - unspeci fied Hypothyroi dism Hypothyroi dism Problem Active 02-17 00:00: 00 Panoram ic - unspeci fied Vitamin D deficiency Vitamin D Deficiency Problem Active 2024-0 8-13 00:00: 00 Panoram ic - unspeci fied Essential hypertensi on Essential Hypertensi on Problem Active 8-13 00:00: 00 Panoram ic - unspeci fied Gastroesop hageal reflux disease Gastroesop hageal Reflux Disease Problem Active 8- 00:00: 00 Panoram ic - unspeci fied Clinical finding Clinical Finding Problem Active 8- 00:00: 00 Panoram ic - unspeci fied Breast cyst Breast cyst Disease Active 8 00:00: 00 Overview: Formattin g of this note might be different from the original. mammo from [facility] 01-17-22Bi lateral cystsTher e is no sonograph ic evidence of malignanc yRoutine mammo in 1 year [facility] History of breast surgery History of breast surgery Disease Active 3 00:00: 00 [facility] History of breast surgery History of breast surgery Disease Active 3 00:00: 00 [facility] BMI 25.0-25.9, adult BMI 25.0-25.9, adult Disease Active 4 00:00: 00 [facility] Hyperthyro idism Hyperthyro idism Disease Active 11-04 00:00: 00 [facility] BMI 25.0-25.9, adult BMI 25.0-25.9, adult Disease Active 30 00:00: 00 [facility] Encounter for IUD removal Encounter for IUD removal Disease Active - 00:00: 00 Overview: Formattin g of this note might be different from the original. paragard 05/2020 [facility] Essential hypertensi on Essential hypertensi on Disease Active 01-02 00:00: 00 Overview: Formattin g of this note might be different from the original. ICD10 Diagnosis Term Crystal Growing Technician Utility [facility] Delayed delivery after SROM (spontaneo us rupture of membranes) Delayed delivery after SROM (spontaneo us rupture of membranes) Disease Resolve d 2023-07 0-25 00:00: 00 2024-05-03 00:00:00 2024-05-03 13:30:06 Jorje Car Diabetes mellitus, type 2 Diabetes mellitus, type 2 Disease Resolve d 2023-07 0-25 00:00: 00 2024-05-03 00:00:00 2024-05-03 13:30:08 Jorje Car Hypothyroi dism Hypothyroi dism Disease Resolve d 2023-07 0-25 00:00: 00 2024-05-03 00:00:00 2024-05-03 13:47:11 Jorje Car Gastroesop hageal reflux disease Gastroesop hageal reflux disease Disease Resolve d 2023-07 0- 00:00: 00 2024-05-03 00:00:00 2024-05-03 13:30:09 Jorje Car HTN (hypertens ion) HTN (hypertens ion) Disease Resolve d 2023-07 0- 00:00: 00 2024-05-03 00:00:00 2024-05-03 13:47:13 Jorje Car affected by growth restrictio n affected by growth restrictio n Disease Resolve d 2023-07 0- 00:00: 00 2024-05-03 00:00:00 2024-05-03 13:47:09 Jorje Car Breast pain, right Breast pain, right Disease Resolve d 3-02 00:00: 00 2021-02-28 00:00:00 2021-02-28 08:48:16 [facility] Abscess of groin, left Abscess of groin, left Disease Resolve d 2018-07 1-10 00:00: 00 2021-02-22 00:00:00 2021-02-22 08:41:53 [facility] Encounter for surveillan ce of injectable contracept red Encounter for surveillan ce of injectable contracept erd Disease Resolve d 2019- 4-30 00:00: 00 2020-09-06 00:00:00 2020-09-06 10:56:35 [facility] Abscess of Bartholin' s gland Abscess of Bartholin' s gland Disease Resolve d 2018- 4-10 00:00: 00 2020-09-06 00:00:00 2020-09-06 10:56:31 [facility] Depo-Prove ra contracept red status Depo-Prove ra contracept red status Disease Resolve d 2015-07 0-11 00:00: 00 2020-09-06 00:00:00 2020-09-06 10:56:38 [facility] Routine gynecologi estefanía examinatio n Routine gynecologi estefanía examinatio n Disease Resolve d 2015-07 011 00:00: 00 2017-10-15 00:00:00 2017-10-15 15:04:23 [facility] Chlamydia trachomati s infection of lower genitourin margarita sites Chlamydia trachomati s infection of lower genitourin margarita sites Disease Resolve d 10-13 00:00: 00 2017-10-15 00:00:00 2017-10-15 15:04:16 [facility] Encounter for insertion of intrauteri ne contracept red device Encounter for insertion of intrauteri ne contracept red device Disease Resolve d 10-09 00:00: 00 2017-10-15 00:00:00 2022-01-21 00:29:40 [facility] Other general counseling and advice for contracept red management Other general counseling and advice for contracept red management Disease Resolve d 2012-07 00:00: 00 2013-10-09 00:00:00 2013-10-09 12:20:11 [facility] Allergic rhinitis Allergic rhinitis Disease Resolve d 2012-07 00:00: 00 2013-10-09 00:00:00 2022-01-21 00:28:07 [facility] Sinus pressure Sinus pressure Disease Resolve d 2012-07 2 00:00: 00 2013-10-09 00:00:00 2013-10-09 12:20:09 [facility] Anemia of mother in , condition Anemia of mother in , condition Disease Resolve d 2012-07- 00:00: 00 2013-10-09 00:00:00 2013-10-09 12:34:32 [facility] Proteinuri a Proteinuri a Disease Resolve d 2012-07 00:00: 00 2013-06-26 00:00:00 2013-06-26 11:44:26 [facility] Suprapubic pressure Suprapubic pressure Disease Resolve d 2012-07 00:00: 00 2013-06-26 00:00:00 2013-06-26 11:44:28 [facility] Pelvic cramping Pelvic cramping Disease Resolve d 2012-07 00:00: 00 2013-06-26 00:00:00 2013-06-26 11:44:22 [facility] Normal delivery Normal delivery Disease Resolve d 2012-07 00:00: 00 2013-06-26 00:00:00 2013-06-26 11:44:20 [facility] Severe pre-eclamp jaguar, antepartum Severe pre-eclamp jaguar, antepartum Disease Resolve d 2012-07 00:00: 00 2013-05-29 00:00:00 2013-05-29 13:59:21 [facility] spontaneou s labor with delivery spontaneou s labor with delivery Disease Resolve d 11-27 00:00: 00 2013-05-29 00:00:00 2022-01-21 00:24:40 [facility] High-risk supervisio n High-risk supervisio n Disease Resolve d 2012-07 00:00: 00 2013-05-22 00:00:00 2013-05-22 12:36:33 [facility] Family history of congenital anomalies Family history of congenital anomalies Disease Resolve d 11-27 00:00: 00 2013-05-22 00:00:00 2022-01-21 00:24:41 [facility] Other known or suspected abnormalit y, not elsewhere classified , affecting management of mother, antepartum condition or complicati on Other known or suspected abnormalit y, not elsewhere classified , affecting management of mother, antepartum condition or complicati on Disease Resolve d 02-12 00:00: 00 2013-04-30 00:00:00 2022-01-21 00:25:52 [facility] Headache Headache Disease Resolve d 01-02 00:00: 00 2013-04-30 00:00:00 2022-01-21 00:25:16 [facility] Trichomona l vulvovagin itis Trichomona l vulvovagin itis Disease Resolve d 12-12 00:00: 00 2013-04-30 00:00:00 2022-01-21 00:24:55 [facility] Immune to rubella Immune to rubella Disease Resolve d 11-27 00:00: 00 2013-04-30 00:00:00 2013-04-30 16:07:11 [facility] Immune to varicella Immune to varicella Disease Resolve d 11-27 00:00: 00 2013-04-30 00:00:00 2013-04-30 16:07:12 [facility] Glucose tolerance test abnormal Glucose tolerance test abnormal Disease Resolve d 11-03 00:00: 00 2013-04-30 00:00:00 2022-01-21 00:24:15 [facility] Chlamydia trachomati s infection of lower genitourin margarita sites Chlamydia trachomati s infection of lower genitourin margarita sites Disease Resolve d 11-03 00:00: 00 2013-04-30 00:00:00 2022-01-21 00:24:15 [facility] Nausea & vomiting Nausea & vomiting Disease Resolve d 10-31 00:00: 00 2013-04-30 00:00:00 2022-01-21 00:24:13 [facility] History of cervical dysplasia History of cervical dysplasia Disease Resolve d 10-31 00:00: 00 2012-10-31 00:00:00 2022-01-21 00:24:13 [facility] Multiparit y Multiparit y Disease Resolve d 09-30 00:00: 00 2012-09-25 00:00:00 2012-09-25 10:26:58 [facility] anemia anemia Disease Resolve d 09-30 00:00: 00 2012-09-25 00:00:00 2022-01-21 00:12:57 [facility] Normal delivery Normal delivery Disease Resolve d 09-29 00:00: 00 2012-09-25 00:00:00 2012-09-25 10:26:47 [facility] Proteinuri a Proteinuri a Disease Resolve d 09-28 00:00: 00 2012-09-25 00:00:00 2012-09-25 10:27:04 [facility] Anemia of mother, with delivery, with complicati on Anemia of mother, with delivery, with complicati on Disease Resolve d 11-01 00:00: 00 2012-09-25 00:00:00 2015-04-08 17:26:13 [facility] First degree perineal laceration during delivery First degree perineal laceration during delivery Disease Resolve d 10-31 00:00: 00 2012-09-25 00:00:00 2022-01-21 00:10:47 [facility] OTHER DIAGNOSIS - PLEASE ANNOTATE. OTHER DIAGNOSIS - PLEASE ANNOTATE. Disease Resolve d 10-30 00:00: 00 2006-10-31 00:00:00 2006-10-31 04:07:11 [facility] Dehydratio n Dehydratio n Disease Resolve d 2005-07 00:00: 00 2006-10-30 00:00:00 2006-10-30 21:44:31 [facility] Allergies, Adverse Reactions, Alerts Allergy Name Allergy Type Status Severity Reaction(s) Onset Date Inactive Date Treating Clinician Comments Source NO KNOWN ALLERGIE S Drug Class Active [facility] Social History Social Habit Start Date Stop Date Quantity Comments Source ASSERTION Not [facility] Gender identity Butch dk [facility] Sexual orientation [facility] Alcoholic beverage intake 2024-05-02 00:00:00 2024-05-02 00:00:00 Lifetime non-drinker (finding) [facility] Tobacco use and exposure 2024-05-01 00:00:00 2024-05-01 00:00:00 Smokeless tobacco non-user [facility] History of Social function 2024-05-01 00:00:00 2024-05-01 00:00:00 [facility] Alcohol intake 2023-10-27 00:00:00 2023-10-27 00:00:00 0 /d [facility] Exposure to SARS-CoV-2 (event) 2021-12-18 00:00:00 2021-12-28 11:14:00 Not sure [facility] Sex assigned at 1980 00:00:00 1980 00:00:00 [facility] Smoking Status Start Date Stop Date Source Never smoked tobacco [facility]or[facility] Medications Ordered Medication Name Filled Medication Name Start Date Stop Date Current Medication? Ordering Clinician Indication Dosage Frequency Signature (SIG) Comments Components Source aspirin EC 81 MG EC tablet aspirin EC 81 MG EC tablet 2023-07 15:26: 37 05-03 00:00 :00 No 571 81mg QD Take 81 mg by mouth 1 time each day. J[facility]je [facility] metFORMIN (Glucophage ) 500 MG tablet metFORMIN (Glucophage ) 500 MG tablet 2023-07 15:26: 34 Yes 500mg Take 500 mg by mouth at bedtime. [facility]orje [facility] NIFEdipine CC (Adalat CC) 30 MG 24 hr tablet NIFEdipine CC (Adalat CC) 30 MG 24 hr tablet 2023-07 15:26: 34 Yes 30mg Take 30 mg by mouth in the morning. Take before meals. Do not crush, chew, or split. Jorje [facility] multivitami n () 1 tablet multivitami n () 1 tablet 2023-07 09:00: 00 Yes 1{tbl} QD 1 tablet, Oral, Daily, First dose on 05/02/24 at 0900, - Vaginal, provides 0.8 mg folic acid [facility] levothyroxi ne (Synthroid, Levoxyl) tablet 75 mcg levothyroxi ne (Synthroid, Levoxyl) tablet 75 mcg 2023-07 08:00: 00 Yes 75ug 75 mcg, Oral, Daily before breakfast, First dose on 05/02/24 at 0800 [facility]je [facility] tranexamic acid (Cyklokapro n) 1,000 mg in sodium chloride 0.9 % 100 mL IVPB-MB+ tranexamic acid (Cyklokapro n) 1,000 mg in sodium chloride 0.9 % 100 mL IVPB-MB+ 2023-07 06:30: 00 05-02 06:08 :00 No 1000mg 1,000 mg, Intravenou s, Once, 1 dose, On 05/02/24 at 0630 Jorje Car lactated Ringer's infusion lactated Ringer's infusion 2023-07 02:00: 00 Yes 125mL/h 125 mL/hr, Intravenou s, Continuous , Starting on 05/02/24 at 0200, - Vaginal, Decrease rate to 30 ml/hr while infusing the post delivery 20 Units of Oxytocin Jorje Car ondansetron (Zofran) injection 4 mg ondansetron (Zofran) injection 4 mg 2023-07 01:46: 20 Yes 4mg Q8H 4 mg, Intravenou s, Every 8 hours PRN, nausea, vomiting, Starting on 05/02/24 at 0146, - Vaginal, (Slow IV push over 2-5 minutes). If nausea and vomiting uncontroll ed with Ondansetro n, give Promethazi ne Jorje Car carboprost (Hemabate) injection 250 mcg carboprost (Hemabate) injection 250 mcg 2023-07 01:46: 20 Yes 250ug 250 mcg, Intramuscu lar, Oncall, Starting on 05/02/24 at 0146, For 1 dose, - Vaginal, For post hemorrhage ONLY per physician direction. Hold for Asthmatic patients Jorje Car diphenoxyla te-atropine (Lomotil) 2.5-0.025 MG per tablet 2 tablet diphenoxyla te-atropine (Lomotil) 2.5-0.025 MG per tablet 2 tablet 2023-07 01:46: 20 Yes 2{tbl} 2 tablet, Oral, Oncall, Starting on 05/02/24 at 0146, For 1 dose, - Vaginal, GIVE WITH Carboprost Jorje Car methylergon ovine (Methergine ) injection 200 mcg methylergon ovine (Methergine ) injection 200 mcg 2023-07 01:46: 20 Yes 7639 200ug 200 mcg, Intramuscu lar, Oncall, Starting on 05/02/24 at 0146, For 1 dose, - Vaginal, For post hemorrhage ONLY per physician direction. Hold if BP > 140/90 mmHg Hazardous Drug Group 3: Reproducti ve risk Hazardous Drug -- Refer to safe handling procedure PPE Matrix, Indication s: Hemorrhage Jorje Car lactated Ringer's bolus 1,000 mL lactated Ringer's bolus 1,000 mL 2023-07 01:46: 20 Yes 1000mL 1,000 mL, Intravenou s, at 1,000 mL/hr, Administer over 1 Hours, Oncall, Starting on 05/02/24 at 0146, For 1 dose, - Vaginal, For OB hemorrhage per physician direction Jorje Car witch jigar-glyce rin (Tucks) pad witch jigar-glyce rin (Tucks) pad 2023-07 01:46: 20 Yes Topical, As needed, irritation , Perineal Care, Starting on 05/02/24 at 0146, - Vaginal, Keep at bedside Jorje Car simethicone (Mylicon) chewable tablet 160 mg simethicone (Mylicon) chewable tablet 160 mg 2023-07 01:46: 20 Yes 160mg Q8H 160 mg, Oral, Every 8 hours PRN, flatulence , Gas prior to discharge, Starting on 05/02/24 at 0146, - Vaginal Jorje Car benzocaine- menthol (Dermoplast ) 20-0.5 % topical spray 1 spray benzocaine- menthol (Dermoplast ) 20-0.5 % topical spray 1 spray 2023-07 01:46: 20 Yes 1{spray } Topical, As needed, mild pain (1-3), to Perineal area; Leave with patient, Starting on 05/02/24 at 0146, - Vaginal Jorje Car lanolin (Lansinoh) cream 1 Application lanolin (Lansinoh) cream 1 Application 2023-07 01:46: 20 Yes 1{appli cation} 1 Applicatio n, Topical, As needed, for nipples, Starting on 05/02/24 at 0146, - Vaginal, Patient to apply to nipples after feeding to prevent cracking or for nipple soreness if breast feeding. Leave at bedside. It can be given on the floor. Jorje Car sodium phosphate (Fleets) enema 133 mL sodium phosphate (Fleets) enema 133 mL 2023-07 01:46: 20 Yes 1{enema } Q24H 133 mL (1 enema), Rectal, Daily PRN, Constipati on, Starting on 05/02/24 at 0146, - Vaginal Jorje Car bisacodyl (Dulcolax) suppository 10 mg bisacodyl (Dulcolax) suppository 10 mg 2023-07 01:46: 20 Yes 10mg Q24H 10 mg, Rectal, Daily PRN, constipati on, no flatus, or no bowel movement, Starting on 05/02/24 at 0146, - Vaginal, Use if PO med unsuccessf ul Jorje Car bisacodyl (Dulcolax) EC tablet 15 mg bisacodyl (Dulcolax) EC tablet 15 mg 2023-07 01:46: 20 Yes 15mg Q24H 15 mg, Oral, Daily PRN, constipati on, no flatus, or no bowel movement, Starting on 05/02/24 at 0146, - Vaginal, Do not give within 1 hour of antacids, milk, or dairy products. Do not crush, chew, or split. Jorje Car naloxone (Narcan) injection 0.1 mg naloxone (Narcan) injection 0.1 mg 2023-07 01:46: 20 Yes .1mg Q6H 0.1 mg, Subcutaneo us, Every 6 hours PRN, itching, Starting on 05/02/24 at 0146, - Vaginal, Administer Naloxone for itching/pr uritus only if Nalbuphine is unavailabl e oJrje Car nalbuphine (Nubain) injection 2 mg nalbuphine (Nubain) injection 2 mg 2023-07 01:46: 20 Yes 2mg 2 mg, Intravenou s, Every 2 hour PRN, moderate pain (4-6), itching, Starting on 05/02/24 at 0146, For 5 doses, - Vaginal, Primary medication to be used for itching/ pruritus Jorje Car acetaminoph en (Tylenol) tablet 1,000 mg acetaminoph en (Tylenol) tablet 1,000 mg 2023-07 01:46: 20 Yes 1000mg Q6H 1,000 mg, Oral, Every 6 hours, First dose on 05/02/24 at 0200, - Vaginal, DO NOT GIVE IF PATIENT HAS RECEIVED ACETAMINOP HEN IN THE PAST SIX HOURS. Max acetaminop hen from all sources = 4 grams in 24 hours Jorje Car ibuprofen tablet 600 mg ibuprofen tablet 600 mg 2023-07 01:46: 20 Yes 600mg Q6H 600 mg, Oral, Every 6 hours, First dose on 05/02/24 at 0200, - Vaginal, Not to be given within 6 hours of Ketorolac. Maximum ibuprofen from all sources = 3,200 mg in 24 hours Jorje Car oxytocin (Pitocin) injection 10 Units oxytocin (Pitocin) injection 10 Units 2023-07 01:46: 20 05-04 01:45 :20 No 7639 10U 10 Units, Intramuscu lar, Oncall, Starting on 05/02/24 at 0146, For 1 dose, - Vaginal, For post HEMORRHAGE ONLY per physician direction Hazardous Drug Group 3: Reproducti ve risk Hazardous Drug -- Refer to safe handling procedure PPE Matrix, Indication s: Hemorrhage Jorje Car tranexamic acid (Cyklokapro n) 1,000 mg in sodium chloride 0.9 % 100 mL IVPB-MB+ tranexamic acid (Cyklokapro n) 1,000 mg in sodium chloride 0.9 % 100 mL IVPB-MB+ 2023-07 01:46: 20 05-02 04:20 :00 No 1000mg 1,000 mg, Intravenou s, at 660 mL/hr, Administer over 10 Minutes, Oncall, Starting on 05/02/24 at 0146, For 1 dose, - Vaginal, For OB hemorrhage per physician direction: ? 1 gm in 100 mL NS and infuse over 10 mins. Give within 3 hrs of delivery. Mini-Bag Plus bag. Break seal and mix before use, as follows: For liquid drug vials, skip to step 2. 1. Hold bag with vial down. Squeeze solution into vial until half-full. Shake to suspend drug in solution. 2. Hold bag with vial upside down. Squeeze bag to force air into vial, then release to drain suspended drug from vial into bag. 3. Repeat above until vial is empty of drug and solution is thoroughly mixed. Ensure drug is completely dissolved. Do not remove drug vial. 4. Remove port protector, attach admin set per its instructio ns, then hang container from IV pole and prime set per directions . Do not use in series connection s. 5. Ensure the vial is empty of drug and in solution, then administer medication as ordered. 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 Jorje Car miSOPROStol (Cytotec) tablet 1,000 mcg miSOPROStol (Cytotec) tablet 1,000 mcg 2023-07 0 01:46: 20 05-02 04:07 :00 No 1000ug 1,000 mcg, Rectal, Oncall, Starting on Sat05/02/24 at 0146, For 1 dose, - Vaginal, For post hemorrhage per physician direction up to 1000 micrograms Hazardous Drug Group 3: Reproducti ve risk Hazardous Drug -- Refer to safe handling procedure PPE Matrix Jorje Car penicillin G potassium 5 Million Units in sodium chloride 0.9 % 100 mL IVPB-MB+ penicillin G potassium 5 Million Units in sodium chloride 0.9 % 100 mL IVPB-MB+ 2023-07 0- 20:45: 00 05-01 21:15 :00 No 510 5 Million Units, Intravenou s, at 200 mL/hr, Administer over 0.5 Hours, Once, On Sat05/01/24 at 2045, For 1 dose, Mini-Bag Plus bag. Break seal and mix before use, as follows: For liquid drug vials, skip to step 2. 1. Hold bag with vial down. Squeeze solution into vial until half-full. Shake to suspend drug in solution. 2. Hold bag with vial upside down. Squeeze bag to force air into vial, then release to drain suspended drug from vial into bag. 3. Repeat above until vial is empty of drug and solution is thoroughly mixed. Ensure drug is completely dissolved. Do not remove drug vial. 4. Remove port protector, attach admin set per its instructio ns, then hang container from IV pole and prime set per directions . Do not use in series connection s. 5. Ensure the vial is empty of drug and in solution, then administer medication as ordered. Use within specified BUD., Suspected Indication (Select all that apply): Surgical Prophylaxi s Memoria l Da Epic oxytocin (Pitocin) 30 units in sodium chloride 0.9 % 500 mL oxytocin (Pitocin) 30 units in sodium chloride 0.9 % 500 mL 2023-07 19:30: 00 05-02 19:29 :00 No 1mU/min 1-28 cherry-unit s/min (1-28 mL/hr), Intravenou s, Continuous , Starting on Sat05/01/24 at 1930, For 24 hours, Hazardous Drug Group 3: Reproducti ve risk Hazardous Drug -- Refer to safe handling procedure PPE Matrix, Infusion Type: Non-titrat e Memoria l Da Epic sodium chloride 0.9 % infusion sodium chloride 0.9 % infusion 2023-07 16:20: 00 05-02 02:12 :48 No 100mL/h 100 mL/hr, Other, Continuous , Starting on Sat05/01/24 at 1620, Delivery, VAGINAL maintenanc e dose, to be administer ed via pump. Memoria l Connelly Epic oxytocin (Pitocin) 30 units in sodium chloride 0.9 % 500 mL 20 Units oxytocin (Pitocin) 30 units in sodium chloride 0.9 % 500 mL 20 Units 2023-07 16:20: 00 05-02 23:50 :00 No 20U 20 Units, Intravenou s, Continuous , Starting on Sat05/01/24 at 1620, For 1 day, Recovery & On Unit, POST OXYTOCIN INFUSION ---?20?uni ts/333 mL to be infused over 3.5 hours. Set infusion pump to 95 ml/hr. decrease LR to 30 ml/hr during this infusion time. [facility] 3: Reproducti ve risk Hazardous Drug -- Refer to safe handling procedure PPE Matrix, Infusion Type: Non-titrat e Jorje Roberson Epic oxytocin (Pitocin) 30 units in sodium chloride 0.9 % 500 mL 10 Units oxytocin (Pitocin) 30 units in sodium chloride 0.9 % 500 mL 10 Units 2023-07 16:20: 00 05-02 23:20 :00 No 10U 10 Units, Intravenou s, Continuous , Starting on Sat05/01/24 at 1620, For 1 day, Recovery & On Unit, POST DELIVERY OXYTOCIN BOLUS DOSE--- 10 units/167 mL to be infused over 30 minutes. Set infusion pump to 334 ml/hr. [facility] 3: Reproducti ve risk Hazardous Drug -- Refer to safe handling procedure PPE Matrix, Infusion Type: Non-titrat e Jorje Reyesann Epic sodium chloride 0.9 % bolus 1,000 mL sodium chloride 0.9 % bolus 1,000 mL 2023-07 16:20: 00 05-01 18:09 :00 No 1000mL 1,000 mL, Intravenou s, at 1,000 mL/hr, Administer over 1 Hours, Once, On Sat05/01/24 at 1620, For 1 dose, Delivery Jorje Reyesjack Car aspirin 81 mg chewable tablet 2023-07 10:47: 17 Yes [id number] 81mg Take 1 tablet by mouth daily. [facility] levothyroxi ne (UNITHROID) 75 mcg tablet 2023-07 10:46: 49 Yes [id number] 75ug Take 1 tablet by mouth every morning. [facility] potassium chloride in water 10 mEq/100 mL RTU 10 mEq 2023-07 23:30: 00 04-11 23:31 :00 No 10meq 10 mEq, IV Piggyback, ONCE, 1 dose, On Sat04/11/24 at 1830, Administer over 60 Minutes, 100 mL [facility] NaCl 0.9% (NS) bolus infusion 1,000 mL 2023-07 22:30: 00 04-11 23:31 :00 No 1000mL at 999 mL/hr, 1,000 mL, IV Infusion, ONCE, 1 dose, On 04/11/24 at 1730, STAT [facility] KCL (KLOR-CON M20) tablet 40 mEq 2023-07 0 22:30: 00 04-11 22:33 :00 No 40meq 40 mEq, Oral, ONCE, 1 dose, [facility] 04[facility]24 [facility] 1730[facility] 650 mg 2023-07 0 20:15: 00 04-11 20:25 :00 No 650mg 650 mg, Oral, ONCE, 1 dose, On 04/11/24 at 1515, [facility] metFORMIN 500 mg tablet 2023-07 0 00:00: 00 Yes [id number] 500mg Take 1 tablet by mouth at bedtime. [facility] NIFEdipine XL 30 mg 24 hr tablet 04-03 00:00: 00 Yes [id number] 30mg Take 1 tablet by mouth daily. [facility] cetirizine 10 mg tablet 02-04 00:00: 00 Yes [id number] 10mg Take 1 tablet by mouth daily. [facility] cetirizine 10 mg tablet 02-03 00:00: 00 Yes 1mg Juan Santana dextrometho rphan-guaif enesin 10 mg-200 mg capsule 02-03 00:00: 00 Yes 1mg Juan Santana Procardia XL 30 mg tablet,exte nded release 12-18 00:00: 00 Yes 1mg Juan Santana Unithroid 75 mcg tablet 12-18 00:00: 00 Yes 1mcg Juan Santana Macrobid 100 mg capsule 12-18 00:00: 00 Yes 1mg Juan Santana Macrobid 100 mg capsule 11-13 00:00: 00 Yes 1mg Juan Santana NITROFURANT N 11-13 00:00: 00 Yes Juan Santana acetaminoph en (TYLENOL) tablet 1,000 mg 10-26 19:15: 00 10-26 18:37 :00 No 1000mg 1,000 mg, Oral, ONCE NOW, 1 dose, On 10/27/23 at 1415, AMANDA [facility] NaCl 0.9% (NS) bolus infusion 1,000 mL 10-26 19:15: 00 10-26 19:00 :00 No 1000mL at 999 mL/hr, 1,000 mL, IV Infusion, ONCE, 1 dose, On Sat10/27/23 at 1415, STAT [facility] metoclopram asya HCl (REGLAN) injection 10 mg 10-26 19:15: 00 10-26 18:36 :00 No 10mg 10 mg, Slow IV Push, ONCE, 1 dose, On 10/27/23 at 1415, AMANDA [facility] diphenhydrA MINE (BENADRYL) injection 25 mg 10-26 19:15: 00 10-26 18:36 :00 No 25mg 25 mg, Slow IV Push, ONCE, 1 dose, On Sat10/27/23 at 1415, STAT [facility] Nitrofurant oin&Nit. Macrocryst (MACROBID) 100 mg capsule 10-26 00:00: 00 11-01 04:59 :00 No [id number] 100mg Take 1 capsule by mouth 2 (two) times daily for 5 days. [facility] Procardia XL 30 mg tablet,exte nded release 10-06 00:00: 00 Yes 1mg Juan Santana Unithroid 75 mcg tablet 10-06 00:00: 00 Yes 1mcg Juan Santana NIFEDIPIN XL 30MG ER 10-06 00:00: 00 Yes Juan Santana CEPHALEXIN 500MG 09-26 00:00: 00 Yes Juan Santana cetirizine 10 mg tablet 09-25 00:00: 00 Yes 1mg Juan Hilary Santana sulfamethox azole 800 mg-trimetho prim 160 mg tablet 09-25 00:00: 00 Yes 1mg Juan Santana lisinopril 10 mg tablet 3-14 00:00: 00 Yes 1mg Juan F Max TAKE 1 TABLET BY MOUTH DAILY 3-11 00:00: 00 11-19 00:00 :00 No 75 Juan F Max UNITHROID 75MCG 2-05 00:00: 00 Yes Juanalton Santana TAKE 1 TABLET BY MOUTH DAILY 2-05 00:00: 00 11-19 00:00 :00 No 10 Juan F Max TAKE 1 TABLET EVERY 12 HOURS UNTIL GONE. 2022-07 0- 00:00: 00 11-19 00:00 :00 No [id number] Juan F Max TAKE 1 CAPSULE TWICE DAILY. 2022-07 00:00: 00 11-19 00:00 :00 No 100 Juan F Max TAKE 1 TABLET DAILY. 2022-07 00:00: 00 11-19 00:00 :00 No 75 Juan F Max TAKE 1 TABLET BY MOUTH DAILY 2022-07 00:00: 00 11-19 00:00 :00 No 10 Juan F Max TAKE 1 TABLET BY MOUTH DAILY 03-26 00:00: 00 11-19 00:00 :00 No 10 Juan F Max TAKE DIRECTED. 9- 00:00: 00 11-19 00:00 :00 No 4 Juan F Max TAKE 1 TABLET DAILY. 11-26 00:00: 00 11-19 00:00 :00 No 75 Juan F Max TAKE 1 TABLET DAILY. 11-26 00:00: 00 11-19 00:00 :00 No 10 Juan F Max TAKE 1 TABLET DAILY. 11-26 00:00: 00 11-19 00:00 :00 No 10 Juan F Max TAKE 1 TABLET DAILY. 4-04 00:00: 00 11-19 00:00 :00 No 10 Juan F Max TAKE 1 TABLET DAILY. 4-04 00:00: 00 11-19 00:00 :00 No 75 Juan F Max TAKE 10 ML EVERY 4-6 HOURS NEEDED 1- 00:00: 00 11-19 00:00 :00 No Juan Santana TAKE 1 TABLET BY MOUTH EVERY 8 HOURS - 00:00: 00 Yes Juan Santana TAKE 1 TABLET BY MOUTH EVERY DAY FOR 10 DAYS - 00:00: 00 Yes Juan Santana DISSOLVE 1 TABLET ON TONGUE 4 TIMES A DAY NEEDED - 00:00: 00 Yes Juan Santana CEPHALEXIN 500MG 2021-07 0-12 00:00: 00 Yes [id number] Juan Santana TAKE 10 ML EVERY 4-6 HOURS NEEDED 2021-07 0- 00:00: 00 No BROM/PSE/DM SYP 2021-07 0-06 00:00: 00 Yes Juan Santana TAKE 1 TABLET DAILY. 03-28 00:00: 00 11-19 00:00 :00 No 75 Juan Santana LISINOPRIL 10MG 03-20 00:00: 00 11-19 00:00 :00 No [id number] Juan Santana levothyroxi ne 75 mcg tablet 11-05 00:00: 00 No 1mcg levothyroxi ne 75 mcg tablet 11-05 00:00: 00 No 1mcg levothyroxi ne 75 mcg tablet 11-05 00:00: 00 Yes 1mcg Juan Santana lisinopril 10 mg tablet 11-02 00:00: 00 No 1mg levothyroxi ne 75 mcg tablet 11-02 00:00: 00 No 1mcg Dose Unknown 11-02 00:00: 00 No Dose Unknown 11-02 00:00: 00 No lisinopril 10 mg tablet 11-02 00:00: 00 No 1mg levothyroxi ne 75 mcg tablet 11-02 00:00: 00 No 1mcg Dose Unknown 11-02 00:00: 00 No Dose Unknown 11-02 00:00: 00 No lisinopril 10 mg tablet 11-02 00:00: 00 Yes 1mg Juan Santana levothyroxi ne 75 mcg tablet 11-02 00:00: 00 Yes 1mcg Juan Santana Dose Unknown 11-02 00:00: 00 Yes Juan Santana Dose Unknown 11-02 00:00: 00 Yes Juan Santana Bromfed DM 2 mg-30 mg-10 mg/5 mL oral syrup 07-14 00:00: 00 No 10mg/5 mL Bromfed DM 2 mg-30 mg-10 mg/5 mL oral syrup 07-14 00:00: 00 No 10mg/5 mL Bromfed DM 2 mg-30 mg-10 mg/5 mL oral syrup 07-14 00:00: 00 Yes 10mg/5 mL Juan Santana lisinopril 10 mg tablet 2020-07 08:55: 53 Yes 10mg Take 1 tablet by mouth daily. [facility] Dose Unknown 2020-07 00:00: 00 No Dose Unknown 2020-07 00:00: 00 No Dose Unknown 2020-07 00:00: 00 Yes Juan Santana levothyroxi ne 75 mcg tablet 2020-07 00:00: 00 No 1mcg levothyroxi ne 75 mcg tablet 2020-07 00:00: 00 No 1mcg levothyroxi ne 75 mcg tablet 2020-07 00:00: 00 Yes 1mcg Juan Santana lidocaine 4 % topical patch 2020-07 0 00:00: 00 No 1% lidocaine 4 % topical patch 2020-07 0 00:00: 00 No 1% lidocaine 4 % topical patch 2020-07 0 00:00: 00 Yes 1% Juan Santana Dose Unknown 2020-07 0 00:00: 00 No Dose Unknown 2020-07 0 00:00: 00 No Dose Unknown 2020-07 0 00:00: 00 Yes Juan Santana pantoprazol e 40 mg EC tablet 2020-07 0 00:00: 00 Yes 40mg Take 40 mg by mouth daily. [facility] ondansetron 4 mg tablet 2020-07 0 00:00: 00 Yes TAKE 1 TABLET BY MOUTH EVERY 12 HOURS NEEDED [facility] levothyroxi ne 75 mcg tablet 01-19 00:00: 00 No 1mcg levothyroxi ne 75 mcg tablet 01-19 00:00: 00 No 1mcg levothyroxi ne 75 mcg tablet 01-19 00:00: 00 Yes 1mcg Juan Santana Dose Unknown - 00:00: 00 No Dose Unknown 10-21 00:00: 00 No Dose Unknown 10-21 00:00: 00 Yes Juan Santana levothyroxi ne 75 mcg tablet 10-15 00:00: 00 No 1mcg Vitamin D3 25 mcg (1,000 unit) capsule 10-15 00:00: 00 No 1(1,000 unit) levothyroxi ne 75 mcg tablet 10-15 00:00: 00 No 1mcg Vitamin D3 25 mcg (1,000 unit) capsule 10-15 00:00: 00 No 1(1,000 unit) levothyroxi ne 75 mcg tablet 10-15 00:00: 00 Yes 1mcg Juan Hilary Max Vitamin D3 25 mcg (1,000 unit) capsule 10-15 00:00: 00 Yes 1800 unit-50 mg Juan Santana lisinopril 10 mg tablet - 00:00: 00 No 1mg famotidine 20 mg tablet 4-08 00:00: 00 No 1mg levothyroxi ne 50 mcg tablet 4- 00:00: 00 No 1mcg lisinopril 10 mg tablet 4-08 00:00: 00 No 1mg famotidine 20 mg tablet 4-08 00:00: 00 No 1mg levothyroxi ne 50 mcg tablet 4-08 00:00: 00 No 1mcg lisinopril 10 mg tablet 4-08 00:00: 00 Yes 1mg Juan Hilary Max famotidine 20 mg tablet 0 408 00:00: 00 Yes 1mg Juan Santana levothyroxi ne 50 mcg tablet 2020-0 4-08 00:00: 00 Yes 1mcg Juan Santana levothyroxi ne 50 mcg tablet 2019-0 9-24 00:00: 00 No 1mcg levothyroxi ne 50 mcg tablet 2019-0 924 00:00: 00 No 1mcg levothyroxi ne 50 mcg tablet 2019-0 24 00:00: 00 Yes 1mcg Juan Santana famotidine 20 mg tablet 2019-0 01-27 00:00: 00 No 1mg famotidine 20 mg tablet 2019-0 01-27 00:00: 00 No 1mg famotidine 20 mg tablet 2019-0 01-27 00:00: 00 Yes 1mg Juan Santana prednisone 20 mg tablet 2019-0 01-26 00:00: 00 No 1mg levothyroxi ne 50 mcg tablet 2019-0 01-26 00:00: 00 No 1mcg Zyrtec 10 mg capsule 2019-0 01-26 00:00: 00 No 1mg amoxicillin 500 mg capsule 2019-0 01-26 00:00: 00 No 1mg prednisone 20 mg tablet 2019-0 01-26 00:00: 00 No 1mg levothyroxi ne 50 mcg tablet 2019-0 01-26 00:00: 00 No 1mcg Zyrtec 10 mg capsule 2019-0 01-26 00:00: 00 No 1mg amoxicillin 500 mg capsule 2019-0 01-26 00:00: 00 No 1mg prednisone 20 mg tablet 2019-0 01-26 00:00: 00 Yes 1mg Juan Santana levothyroxi ne 50 mcg tablet 2019-0 01-26 00:00: 00 Yes 1mcg Juan Santana Zyrtec 10 mg capsule 2019-0 01-26 00:00: 00 Yes 1mg Juan Santana amoxicillin 500 mg capsule 2019-0 01-26 00:00: 00 Yes 1mg Juan Santana Zyrtec 10 mg capsule 2019-0 617 00:00: 00 No 1mg Zyrtec 10 mg capsule 2019-0 6-17 00:00: 00 No 1mg Zyrtec 10 mg capsule 2019-0 617 00:00: 00 Yes 1mg Juan Santana levothyroxi ne 50 mcg tablet 2019-0 5-22 00:00: 00 No 1mcg levothyroxi ne 50 mcg tablet 2019-0 5-22 00:00: 00 No 1mcg levothyroxi ne 50 mcg tablet 2019-0 522 00:00: 00 Yes 1mcg Juan Santana levothyroxi ne 88 mcg tablet 2019-0 10-28 00:00: 00 No 1mcg levothyroxi ne 88 mcg tablet 2019-0 10-28 00:00: 00 No 1mcg levothyroxi ne 88 mcg tablet 2019-0 10-28 00:00: 00 Yes 1mcg Juan Santana levothyroxi ne 100 mcg tablet 2019-0 30 00:00: 00 No 1mcg Vitamin D2 1,250 mcg (50,000 unit) capsule 2019-0 30 00:00: 00 No 1(50,00 0 unit) levothyroxi ne 100 mcg tablet 2019-0 30 00:00: 00 No 1mcg Vitamin D2 1,250 mcg (50,000 unit) capsule 2019-0 30 00:00: 00 No 1(50,00 0 unit) levothyroxi ne 100 mcg tablet 2019-0 30 00:00: 00 Yes 1mcg Juan Santana Vitamin D2 1,250 mcg (50,000 unit) capsule 2019-0 30 00:00: 00 Yes 1-5.84 gram Juan Santana Augmentin 875 mg-125 mg tablet 2019-0 -19 00:00: 00 No 1mg Augmentin 875 mg-125 mg tablet 2019-0 -19 00:00: 00 No 1mg Augmentin 875 mg-125 mg tablet 2019-0 19 00:00: 00 Yes 1mg Juan Santana lisinopril 10 mg tablet 2019-0 3-05 00:00: 00 No 1mg amoxicillin 500 mg capsule 2019-0 3-05 00:00: 00 No 1mg lisinopril 10 mg tablet 2019-0 3-05 00:00: 00 No 1mg amoxicillin 500 mg capsule 2019-0 3-05 00:00: 00 No 1mg lisinopril 10 mg tablet 2019-0 3-05 00:00: 00 Yes 1mg Juan Santana amoxicillin 500 mg capsule 3 00:00: 00 Yes 1mg Juan Santana lisinopril 10 mg tablet 2018-07 00:00: 00 No 1mg lisinopril 10 mg tablet 2018-07 00:00: 00 No 1mg lisinopril 10 mg tablet 2018-07 00:00: 00 Yes 1mg Juan Santana lisinopril 10 mg tablet 08-12 00:00: 00 No 1mg cephalexin 500 mg capsule 08-12 00:00: 00 No 1mg lisinopril 10 mg tablet 08-12 00:00: 00 No 1mg cephalexin 500 mg capsule 08-12 00:00: 00 No 1mg lisinopril 10 mg tablet 08-12 00:00: 00 Yes 1mg Juan Santana cephalexin 500 mg capsule 08-12 00:00: 00 Yes 1mg Juan Santana Vitamin D2 50,000 unit capsule 07-21 00:00: 00 No 1unit Vitamin D2 50,000 unit capsule 07-21 00:00: 00 No 1unit Vitamin D2 50,000 unit capsule 07-21 00:00: 00 Yes 1unit Juan Santana lisinopril 10 mg tablet 2017-07 00:00: 00 No 1mg lisinopril 10 mg tablet 2017-07 00:00: 00 No 1mg lisinopril 10 mg tablet 2017-07 00:00: 00 Yes 1mg Juan Santana lisinopril 10 mg tablet 03-21 00:00: 00 No 1mg lisinopril 10 mg tablet 03-21 00:00: 00 No 1mg lisinopril 10 mg tablet 03-21 00:00: 00 Yes 1mg Juan Santana lisinopril 10 mg tablet 2015-07 00:00: 00 No 1mg lisinopril 10 mg tablet 2015-07 00:00: 00 No 1mg lisinopril 10 mg tablet 2015-07 00:00: 00 Yes 1mg Juan Santaan lisinopril 10 mg-hydrochl orothiazide 12.5 mg tablet 2015-07 00:00: 00 No 1mg lisinopril 10 mg-hydrochl orothiazide 12.5 mg tablet 2015-07 00:00: 00 No 1mg lisinopril 10 mg-hydrochl orothiazide 12.5 mg tablet 2015-07 00:00: 00 Yes 1mg Juan Santana amoxicillin 500 mg capsule 02-05 00:00: 00 No 2mg omeprazole 20 mg capsule,del ayed release 02-05 00:00: 00 No 1mg clarithromy dione 500 mg tablet 02-05 00:00: 00 No 1mg amoxicillin 500 mg capsule 02-05 00:00: 00 No 2mg omeprazole 20 mg capsule,del ayed release 02-05 00:00: 00 No 1mg clarithromy dione 500 mg tablet 02-05 00:00: 00 No 1mg clarithromy dione 500 mg tablet 02-05 00:00: 00 Yes 1mg Juan Santana amoxicillin 500 mg capsule 02-05 00:00: 00 Yes 2mg Juan Santana omeprazole 20 mg capsule,del ayed release 02-05 00:00: 00 Yes 1mg Juan Santana lisinopril 10 mg-hydrochl orothiazide 12.5 mg tablet 08-10 00:00: 00 No 1mg Vistaril 50 mg capsule 08-10 00:00: 00 No 1mg lisinopril 10 mg-hydrochl orothiazide 12.5 mg tablet 08-10 00:00: 00 No 1mg Vistaril 50 mg capsule 08-10 00:00: 00 No 1mg lisinopril 10 mg-hydrochl orothiazide 12.5 mg tablet 08-10 00:00: 00 Yes 1mg Juan Santana Vistaril 50 mg capsule 08-10 00:00: 00 Yes 1mg Juan Santana clindamycin 300 mg capsule 2014-07 00:00: 00 No 1mg clindamycin 300 mg capsule 2014-07 00:00: 00 No 1mg clindamycin 300 mg capsule 2014-07 0 00:00: 00 Yes 1mg Juan Santana lisinopril 10 mg-hydrochl orothiazide 12.5 mg tablet 2014-07 00:00: 00 No 1mg lisinopril 10 mg-hydrochl orothiazide 12.5 mg tablet 2014-07 00:00: 00 No 1mg lisinopril 10 mg-hydrochl orothiazide 12.5 mg tablet 2014-07 00:00: 00 Yes 1mg Juan Santana lisinopril 10 mg-hydrochl orothiazide 12.5 mg tablet 03-24 00:00: 00 No 1mg lisinopril 10 mg-hydrochl orothiazide 12.5 mg tablet 03-24 00:00: 00 No 1mg lisinopril 10 mg-hydrochl orothiazide 12.5 mg tablet 03-24 00:00: 00 Yes 1mg Juan Santana lisinopril 10 mg-hydrochl orothiazide 12.5 mg tablet 07-22 00:00: 00 No 1mg lisinopril 10 mg-hydrochl orothiazide 12.5 mg tablet 07-22 00:00: 00 No 1mg lisinopril 10 mg-hydrochl orothiazide 12.5 mg tablet 07-22 00:00: 00 Yes 1mg Juan Santana Unithroid 75 mcg tablet TAKE ONE TABLET BY MOUTH EVERY MORNING Unithroid 75 mcg tablet TAKE ONE TABLET BY MOUTH EVERY MORNING No Unithroid 75 mcg tablet TAKE ONE TABLET BY MOUTH EVERY MORNING Panoram ic - unspeci fied Immunizations Ordered Immunization Name Filled Immunization Name Date Status Comments Source Influenza Virus Vaccine Quad .5 mL IM 6+ MO (FLUZONE/FLULAVAL/F LUARIX) 2020-04-21 00:00:00 Completed [facility] Influenza Virus Vaccine Quad .5 mL IM 6+ MO (FLUZONE/FLULAVAL/F LUARIX) 2020-04-21 00:00:00 Completed [facility] Influenza Virus Vaccine Quad .5 mL IM 6+ MO (FLUZONE/FLULAVAL/F LUARIX) 2020-04-21 00:00:00 Completed [facility] Influenza Virus Vaccine Quad .5 mL IM 6+ MO 2020-04-21 00:00:00 Completed [facility] Influenza Virus Vaccine Quad .5 mL IM 6+ MO 2020-04-21 00:00:00 Completed [facility] Influenza Virus Vaccine Quad .5 mL IM 6+ MO 2020-04-21 00:00:00 Completed [facility] Influenza Virus Vaccine Quad .5 mL IM 6+ MO (FLUZONE/FLULAVAL/F LUARIX) 2019-05-27 00:00:00 Completed [facility] Influenza Virus Vaccine Quad .5 mL IM 6+ MO (FLUZONE/FLULAVAL/F LUARIX) 2019-05-27 00:00:00 Completed [facility] Influenza Virus Vaccine Quad .5 mL IM 6+ MO (FLUZONE/FLULAVAL/F LUARIX) 2019-05-27 00:00:00 Completed [facility] Influenza Virus Vaccine Quad .5 mL IM 6+ MO 2019-05-27 00:00:00 Completed [facility] Influenza Virus Vaccine Quad .5 mL IM 6+ MO 2019-05-27 00:00:00 Completed [facility] Influenza Virus Vaccine Quad .5 mL IM 6+ MO 2019-05-27 00:00:00 Completed [facility] TDAP 2013-06-26 00:00:00 Completed TDAP 2013-06-26 00:00:00 Completed TDAP 2013-06-26 00:00:00 Completed TDAP 2013-06-26 00:00:00 Completed [facility] TDAP 2013-06-26 00:00:00 Completed [facility] TDAP 2013-06-26 00:00:00 Completed [facility] Influenza Virus Vaccine 2013-03-26 00:00:00 Completed [facility] Influenza Virus Vaccine 2013-03-26 00:00:00 Completed [facility] Influenza Virus Vaccine 2013-03-26 00:00:00 Completed [facility] Influenza Virus Vaccine 2013-03-26 00:00:00 Completed [facility] Influenza Virus Vaccine 2013-03-26 00:00:00 Completed [facility] Influenza Virus Vaccine 2013-03-26 00:00:00 Completed [facility] Rubella 2007-03-21 00:00:00 Completed [facility] Rubella 2007-03-21 00:00:00 Completed [facility] Rubella 2007-03-21 00:00:00 Completed [facility] Rubella 2007-03-21 00:00:00 Completed [facility] Rubella 2007-03-21 00:00:00 Completed [facility] Rubella 2007-03-21 00:00:00 Completed [facility] TD, NOS 1998-07-08 00:00:00 Completed TD, NOS 1998-07-08 00:00:00 Completed TD, NOS 1998-07-08 00:00:00 Completed Td 1998-07-08 00:00:00 Completed [facility] Td 1998-07-08 00:00:00 Completed [facility] Td 1998-07-08 00:00:00 Completed [facility] Rubella Unknown Completed [facility] TD, NOS Unknown Completed [facility] Influenza Virus Vaccine Unknown Completed [facility] TDAP Unknown Completed [facility] Influenza Virus Vaccine Quad .5 mL IM 6+ MO (FLUZONE/FLULAVAL/F LUARIX) Unknown Completed [facility] Rubella Unknown Completed [facility] TD, NOS Unknown Completed [facility] Influenza Virus Vaccine Unknown Completed [facility] TDAP Unknown Completed [facility] Influenza Virus Vaccine Quad .5 mL IM 6+ MO (FLUZONE/FLULAVAL/F LUARIX) Unknown Completed [facility] Vital Signs Vital Name Observation Time Observation Value Comments S ource Heart rate 2024-05-03 07:37:11 74 /min Tom aguilar [facility] Oxygen saturation in Arterial blood by Pulse oximetry 2024-05-03 07:37:11 97 /min [facility] Systolic blood pressure 2024-05-03 07:37:05 135 mm[Hg] [facility] Diastolic blood pressure 2024-05-03 07:37:05 76 mm[Hg] [facility] Body temperature 2024-05-03 07:36:46 36.67 Dawn [facility] Respiratory rate 2024-05-02 23:48:26 16 /min [facility] Body height 2024-05-01 15:30:00 165.1 cm Butch Reyesann Epic Body weight 2024-05-01 15:30:00 83.25 kg Butch Reyesann Epic BMI 2024-05-01 15:30:00 30.54 kg/m2 Butch dk Reyesann Epic Heart rate 2024-05-03 07:37:11 74 /min [facility] Oxygen saturation in Arterial blood by Pulse oximetry 2024-05-03 07:37:11 97 /min [facility] Systolic blood pressure 2024-05-03 07:37:05 135 mm[Hg] [facility] Diastolic blood pressure 2024-05-03 07:37:05 76 mm[Hg] [facility] Body temperature 2024-05-03 07:36:46 36.67 Dawn [facility] Respiratory rate 2024-05-02 23:48:26 16 /min [facility] Body height 2024-05-01 15:30:00 165.1 cm Butch Reyesann Epic Body weight 2024-05-01 15:30:00 83.25 kg Butch root Connelly Epic BMI 2024-05-01 15:30:00 30.54 kg/m2 Butch dk Connelly Epic Systolic blood pressure 2024-04-13 15:43:00 127 mm[Hg] [facility] Diastolic blood pressure 2024-04-13 15:43:00 82 mm[Hg] [facility] Heart rate 2024-04-13 15:43:00 90 /[facility] in Arterial blood by Pulse oximetry 2024-04-13 15:43:00 96 /min [facility] Respiratory rate 2024-04-13 15:40:00 20 /min [facility] Body height 2024-04-13 15:40:[address] [facility] Body weight 2024-04-13 15:40:[address] [facility] BMI 2024-04-13 15:40:00 30.04 kg/m2 [facility] Systolic blood pressure 2024-04-11 23:00:00 123 mm[Hg] [facility] Diastolic blood pressure 2024-04-11 23:00:00 75 mm[Hg] [facility] Heart rate 2024-04-11 23:00:00 81 /min [facility] Respiratory rate 2024-04-11 23:00:00 16 /min [facility] Oxygen saturation in Arterial blood by Pulse oximetry 2024-04-11 23:00:00 98 /min [facility] Body temperature 2024-04-11 20:09:00 37.22 Dawn [facility] Body height 2024-04-11 20:09:[address] [facility] Body weight 2024-04-11 20:09:[address] [facility] BMI 2024-04-11 20:09:00 29.62 kg/m2 [facility] BMI (Body Mass Index) 2024-02-27 00:00:00 29.5 kg/m2 [facility]or[facility] - unspecified Height 2024-02-27 00:00:00 65 [in_i] Panor amic - unspecified Body Weight 2024-02-27 00:00:00 177.4 [lb_av] P anoramic - unspecified BP Diastolic 2024-02-27 00:00:00 89 mm[Hg] [place] oramic - unspecified BP Systolic 2024-02-27 00:00:00 128 mm[Hg] Pano ramic - unspecified Systolic blood pressure 2023-10-27 20:15:00 121 mm[Hg] [facility] Diastolic blood pressure 2023-10-27 20:15:00 79 mm[Hg] [facility] Heart rate 2023-10-27 20:15:00 80 /min [facility] Respiratory rate 2023-10-27 20:15:00 18 /min [facility] Oxygen saturation in Arterial blood by Pulse oximetry 2023-10-27 20:15:00 100 /min [facility] Body temperature 2023-10-27 17:35:00 36.83 Dawn [facility] Body height 2023-10-27 17:35:[address] [facility] Body weight 2023-10-27 17:35:[address] [facility] BMI 2023-10-27 17:35:00 26.61 kg/m2 [facility] Systolic blood pressure 2023-08-19 17:18:00 131 mm[Hg] [facility] Diastolic blood pressure 2023-08-19 17:18:00 89 mm[Hg] [facility] Heart rate 2023-08-19 17:18:00 98 /min [facility] Body temperature 2023-08-19 17:18:00 36.67 Dawn [facility] Body height 2023-08-19 17:18:00 [facility]1 cm [facility] Body [facility] 2023-08-19 17:18:00 [facility] 2023-08-19 17:18:00 25.19 kg[facility]2 [facility] Body temperature 2023-05-15 02:56:00 37.28 Dawn [facility] Respiratory rate 2023-05-15 02:56:00 20 /min [facility] Body height 2023-05-15 02:56:[address] [facility] Body weight 2023-05-15 02:56:[address] [facility] BMI 2023-05-15 02:56:00 24.46 kg/m2 [facility] Oxygen saturation in Arterial blood by Pulse oximetry 2023-05-15 02:56:00 100 /min [facility] Systolic blood pressure 2023-05-15 02:56:00 127 mm[Hg] [facility] Diastolic blood pressure 2023-05-15 02:56:00 78 mm[Hg] [facility] Heart rate 2023-05-15 02:56:00 72 /min [facility] BP Systolic 2024-02-06 09:44:00 132 mm[Hg] Morro Santana BP Diastolic 2024-02-06 09:44:00 66 mm[Hg] Luis Armando Santana Weight Measured 2024-02-06 09:44:00 180.00 pounds Juan Santana Height Measured 2024-02-06 09:44:00 65.00 inches Juan Santana Body Temperature 2024-02-06 09:44:00 97.40 degrees Juan F Max Heart Rate 2024-02-06 09:44:00 109.00 /min Step hen F Max Respiratory Rate 2024-02-06 09:44:00 Juan F Max BP Systolic 2024-02-04 18:03:00 140 mm[Hg] Step hen F Max BP Diastolic 2024-02-04 18:03:00 90 mm[Hg] Luis Armando phen F Max Weight Measured 2024-02-04 18:03:00 172.00 pounds Juan F Max Height Measured 2024-02-04 18:03:00 65.00 inches Juan F Max Body Temperature 2024-02-04 18:03:00 99.00 degrees Juan F Max Heart Rate 2024-02-04 18:03:00 111.00 /min Step hen F Max Respiratory Rate 2024-02-04 18:03:00 18.00 /min Juan F Max BP Systolic 2023-12-19 15:31:00 136 mm[Hg] Step hen F Max BP Diastolic 2023-12-19 15:31:00 81 mm[Hg] Luis Armando phen F Max Weight Measured 2023-12-19 15:31:00 164.20 pounds Juan F Max Height Measured 2023-12-19 15:31:00 65.00 inches Juan F Max Body Temperature 2023-12-19 15:31:00 98.30 degrees Juan F Max Heart Rate 2023-12-19 15:31:00 104.00 /min Step hen F Max Respiratory Rate 2023-12-19 15:31:00 18.00 /min Juan F Max BP Systolic 2023-11-14 11:18:00 134 mm[Hg] Step hen F Max BP Diastolic 2023-11-14 11:18:00 90 mm[Hg] Luis Armando phen F Max Weight Measured 2023-11-14 11:18:00 158.40 pounds Juan F Max Height Measured 2023-11-14 11:18:00 65.00 inches Juan F Max Body Temperature 2023-11-14 11:18:00 98.30 degrees Juan F Max Heart Rate 2023-11-14 11:18:00 103.00 /min Step hen F Max Respiratory Rate 2023-11-14 11:18:00 18.00 /min Juan F Max BP Systolic 2023-10-07 13:41:00 123 mm[Hg] Step hen F Max BP Diastolic 2023-10-07 13:41:00 85 mm[Hg] Luis Armando phen F Max Weight Measured 2023-10-07 13:41:00 153.60 pounds Juan F Max Height Measured 2023-10-07 13:41:00 65.00 inches Juan F Max Body Temperature 2023-10-07 13:41:00 98.30 degrees Juan F Max Heart Rate 2023-10-07 13:41:00 85.00 /min Nelly en F Max Respiratory Rate 2023-10-07 13:41:00 18.00 /min Juan F Max BP Systolic 2023-09-26 11:00:00 99 mm[Hg] Step hen F Max BP Diastolic 2023-09-26 11:00:00 70 mm[Hg] Luis Armando phen F Max Weight Measured 2023-09-26 11:00:00 153.40 pounds Juan F Max Height Measured 2023-09-26 11:00:00 65.00 inches Juan F Max Body Temperature 2023-09-26 11:00:00 98.80 degrees Juan F Max Heart Rate 2023-09-26 11:00:00 97.00 /min Nelly en F Max Respiratory Rate 2023-09-26 11:00:00 18.00 /min Juan F Max BP Systolic 2023-09-19 13:47:00 117 mm[Hg] Step hen F Max BP Diastolic 2023-09-19 13:47:00 75 mm[Hg] Luis Armando phen F Max Weight Measured 2023-09-19 13:47:00 154.80 pounds Juan F Max Height Measured 2023-09-19 13:47:00 65.00 inches Juan F Max Body Temperature 2023-09-19 13:47:00 98.40 degrees Juan F Max Heart Rate 2023-09-19 13:47:00 85.00 /min Nelly en F Max Respiratory Rate 2023-09-19 13:47:00 18.00 /min Juan F Max BP Systolic 2023-05-02 09:51:00 134 mm[Hg] Step hen F Max BP Diastolic 2023-05-02 09:51:00 68 mm[Hg] Luis Armando phen F Max Weight Measured 2023-05-02 09:51:00 146.80 pounds Juan F Max Height Measured 2023-05-02 09:51:00 65.00 inches Juan F Max Body Temperature 2023-05-02 09:51:00 98.30 degrees Juan F Max Heart Rate 2023-05-02 09:51:00 74.00 /min Nelly en F Max Respiratory Rate 2023-05-02 09:51:00 Juan F Max BP Systolic 2023-04-29 17:13:00 111 mm[Hg] Step hen F Max BP Diastolic 2023-04-29 17:13:00 75 mm[Hg] Luis Armando phen F Max Weight Measured 2023-04-29 17:13:00 149.80 pounds Juan F Max Height Measured 2023-04-29 17:13:00 65.00 inches Juan F Max Body Temperature 2023-04-29 17:13:00 98.20 degrees Juan F Max Heart Rate 2023-04-29 17:13:00 94.00 /min Nelly en F Max Respiratory Rate 2023-04-29 17:13:00 18.00 /min Juan F Max BP Systolic 2022-11-26 09:14:00 127 mm[Hg] Step hen F Max BP Diastolic 2022-11-26 09:14:00 82 mm[Hg] Luis Armando phen F Max Weight Measured 2022-11-26 09:14:00 144.80 pounds Juan F Max Height Measured 2022-11-26 09:14:00 65.00 inches Juan F Max Body Temperature 2022-11-26 09:14:00 98.00 degrees Juan F Max Heart Rate 2022-11-26 09:14:00 65.00 /min Nelly en F Max Respiratory Rate 2022-11-26 09:14:00 Juan F Max BP Systolic 2022-07-13 10:49:00 110 mm[Hg] Step hen F Max BP Diastolic 2022-07-13 10:49:00 75 mm[Hg] Luis Armando phen F Max Weight Measured 2022-07-13 10:49:00 148.00 pounds Juan F Max Height Measured 2022-07-13 10:49:00 65.00 inches Juan F Max Body Temperature 2022-07-13 10:49:00 98.60 degrees Juan F Max Heart Rate 2022-07-13 10:49:00 83.00 /min Nelly en F Max Respiratory Rate 2022-07-13 10:49:00 18.00 /min Juan F Max BP Systolic 2022-04-12 13:37:00 119 mm[Hg] Step hen F Max BP Diastolic 2022-04-12 13:37:00 82 mm[Hg] Luis Armando phen F Max Weight Measured 2022-04-12 13:37:00 147.00 pounds Juan F Max Height Measured 2022-04-12 13:37:00 65.00 inches Juan F Max Body Temperature 2022-04-12 13:37:00 98.30 degrees Juan F Max Heart Rate 2022-04-12 13:37:00 96.00 /min Nelly en F Max Respiratory Rate 2022-04-12 13:37:00 18.00 /min Juan F Max BP Systolic 2022-03-20 13:24:00 109 mm[Hg] Step hen F Max BP Diastolic 2022-03-20 13:24:00 67 mm[Hg] Luis Armando phen F Max Weight Measured 2022-03-20 13:24:00 146.00 pounds Juan F Max Height Measured 2022-03-20 13:24:00 65.00 inches Juan F Max Body Temperature 2022-03-20 13:24:00 97.60 degrees Juan F Max Heart Rate 2022-03-20 13:24:00 89.00 /min Nelly en F Max Respiratory Rate 2022-03-20 13:24:00 Juan F Max BP Systolic 2021-11-02 08:28:00 111 mm[Hg] BP [...] Procedure Date / Time Performed Performing Clinician Source RUBELLA ANTIBODY IGG 2024-05-02 10:16:00 Askenziematt to Augusto Ndubovidio [facility] HEMOGLOBIN AND HEMATOCRIT 2024-05-02 10:16:00 As Rashad piedraley [facility] COMPREHENSIVE METABOLIC PANEL 2024-05-01 16:49:00 Suman Ramsey [facility] ANTIBODY SCREEN 2024-05-01 16:49:00 Suman Ramsey [facility] COMPLETE BLOOD COUNT W/DIFF AND PLATELET 2024-05-01 16:49:00 Suman Ramsey [facility] (STAT) HEPATITIS B SURFACE ANTIGEN 2024-05-01 16:49[facility] 2024-05-01 16:49:00 [facility] 4[facility] GEN WITH REFLEX 2024-05-01 16:49:00 Suman Mcwilliams [facility] TREPONEMAL ANTIBODY W/REFLEXES 2024-05-01 16:49:00 Suman Ramsey [facility] COMPLETE BLOOD COUNT 2024-05-01 16:49:00 Suman Potter [facility] AUTOMATED DIFFERENTIAL 2024-05-01 16:49:00 Suman Ramsey [facility] TRANSTHORACIC ECHO (TTE) COMPLETE 2024-04-22 18:44:38 Kacie Manzano [facility] HB ECG ROUTINE & RHYTHM STRIP 2024-04-13 15:43:34 Kacie Manzano [facility] COMP. METABOLIC PANEL (93913) 2024-04-11 21:33:00 Cristofer Lynch [facility] CBC WITH DIFF 2024-04-11 20:28:00 Cristofer Lynch [facility] RAPID STREP SCREEN FOR GROUP A 2024-04-11 20:28:00 Cristofer Lynch [facility] INFLUENZA A/B RSV COVID NAAT 2024-04-11 20:28:00 Cristofer Lynch [facility] URINALYSIS 2024-04-11 20:12:00 Cristofer Lynch [facility] POCT GLUCOSE (AUTOMATED) 2024-04-11 20:09:00 Ksenia Lynch [facility] US, retroperitoneum 2024-02-27 00:00:00 P anoramic - unspecified COMP. METABOLIC PANEL (13727) 2023-10-27 18:37:00 Juan Jensen [facility] CBC WITH DIFF 2023-10-27 18:37:00 Juan Jensen [facility] URINALYSIS 2023-10-27 18:37:00 [facility]IPSTICK 2023-08-19 17:51:00 David Brown [facility] ASSIGNMENT OF BENEFITS 2023-05-15 04:13:22 Docto r Unassigned, [place] [facility] NOTICE OF PRIVACY PRACTICES 2023-05-15 02:38:53 Doctor Unassigned, [place] [facility] CONSENT/REFUSAL FOR DIAGNOSIS AND TREATMENT 2023-05-15 02:38:25 Doctor Unassigned, [place] [facility] 42830 Ekg W/ At Least 12 Leads W/ I r 2022-11-26 00:00:00 Juan Santana EXTERNAL PROVIDER RECORDS 2022-02-05 05:01:00 Do ctor Unassigned, [place] [facility] EXTERNAL PROVIDER RECORDS 2022-01-19 05:01:00 Do ctor Unassigned, [place] [facility] Ekg 2018-07-14 00:00:00 Juan Santana 59532 Ecg Routine Ecg W/least 12 Lds W/i r 2015-03-24 00:00:00 Juan Santana POCT glucose meter docked device [facility] Plan of Care Planned Activity Planned Date Details Comments Source Goal Plan of Care Note [code = 82804-4] Goal Plan of Care Note [code = 50111-8] Goal Plan of Care Note [code = 49831-2] Goal Plan of Care Note [code = 05876-7] Goal Plan of Care Note [code = 95838-2] Goal Plan of Care Note [code = 67807-0] Goal Plan of Care Note [code = 27573-5] Goal Plan of Care Note [code = 38718-6] Goal Plan of Care Note [code = 44945-9] Goal Plan of Care Note [code = 80196-6] Goal Plan of Care Note [code = 26892-6] Goal Plan of Care Note [code = 47187-5] Goal Plan of Care Note [code = 21484-6] Goal Plan of Care Note [code = 89019-2] Goal Plan of Care Note [code = 58821-0] Goal Plan of Care Note [code = 22528-5] Goal Plan of Care Note [code = 67206-8] Goal Plan of Care Note [code = 52134-0] Goal Plan of Care Note [code = 80056-9] Goal Plan of Care Note [code = 73835-1] Goal Plan of Care Note [code = 84876-1] Goal Plan of Care Note [code = 08611-5] Goal Plan of Care Note [code = 06398-8] Goal Plan of Care Note [code = 43791-2] Goal Plan of Care Note [code = 68798-5] Goal Plan of Care Note [code = 97652-6] Goal Plan of Care Note [code = 97556-6] Goal Plan of Care Note [code = 55566-6] Goal Plan of Care Note [code = 36714-6] Goal Plan of Care Note [code = 23102-7] Goal Plan of Care Note [code = 13950-2] Goal Plan of Care Note [code = 30769-0] Goal Plan of Care Note [code = 40332-6] Goal Plan of Care Note [code = 83443-9] Goal Plan of Care Note [code = 57501-5] Goal Plan of Care Note [code = 88720-7] Goal Plan of Care Note [code = 51485-1] Goal Plan of Care Note [code = 06843-2] Goal Plan of Care Note [code = 55658-7] Goal Plan of Care Note [code = 73672-1] Goal Plan of Care Note [code = 18468-0] Goal Plan of Care Note [code = 01384-0] Goal Plan of Care Note [code = 49489-6] Goal Plan of Care Note [code = 84881-0] Goal Plan of Care Note [code = 88028-6] Goal Plan of Care Note [code = 34955-2] Goal Plan of Care Note [code = 97708-4] Goal Plan of Care Note [code = 84214-8] Goal Plan of Care Note [code = 80753-3] Goal Plan of Care Note [code = 89398-2] Goal Plan of Care Note [code = 93776-0] Goal Plan of Care Note [code = 23623-1] Goal Plan of Care Note [code = 40233-8] Goal Plan of Care Note [code = 62442-7] Goal Plan of Care Note [code = 73779-1] Goal Plan of Care Note [code = 78967-9] Goal Plan of Care Note [code = 86071-0] Goal Plan of Care Note [code = 80116-0] Encounters Start Date/Time End Date/Time Encounter Type Admission Type Attending Clinicians [facility] Facility Care Department Encounter ID Source 2021-05-05 23:42:11 Emergency [facility] [id number] [facility] 2024-05-22 10:24:02 2024-05-22 10:24:02 Outpatient SFA S[facility] [id number] Juan Richard Max 2024-05-01 15:27:00 2024-05-03 15:26:00 Inpatient Emergency AUGUSTO MORENO [facility] Obstetric[facility] [id number] [facility] 2024-05-01 15:27:00 2024-05-03 15:26:00 Hospital Encounter Suman Ramsey Kingsley Ndubueze [facility] 07.09.840.114 350.1.13.70 8.2.7.2.686 [id number] [facility] 2024-05-01 10:17:29 2024-05-01 10:17:29 Outpatient SFA SFA [id number] Juan Santana 2024-04-23 00:00:00 2024-04-23 14:00:29 Telephone Kacie Manzano [facility] 1..840.114 350.1.13.10 4.2.7.2.686 [id number] [facility] 2024-04-23 00:00:00 2024-04-23 10:31:57 Telephone Kacie Manzano [facility] 1.2.840.114 350.1.13.10 4.2.7.2.686 [id number] [facility] 2024-04-22 12:34:27 2024-04-22 23:59:00 [id number] 2024-04-22 12:34:27 2024-04-22 23:59:00 Hospital Encounter Kacie Manzano [facility] 1.2.840.114 350.1.13.10 4.2.7.2.686 [id number] [facility] 2024-04-17 10:38:09 2024-04-17 10:38:09 Outpatient [facility] [id number] Juan Santana 2024-04-16 13:00:00 2024-04-16 13:00:00 Outpatient R KACIE MANZANO [facility] [id number] [facility] 2024-04-13 11:00:00 2024-04-13 11:05:03 Outpatient R KACIE MANZANO [facility] [id number] [facility] 2024-04-13 11:00:00 2024-04-13 11:05:03 Office Visit Kacie ManzanoCande [facility] 1.2.840.114 350.1.13.10 4.2.7.2.686 [id number] [facility] 2024-04-11 15:10:00 2024-04-11 18:32:00 Emergency X CRISTOFER LYNCH JO[facility]PH [facility] [id number] [facility] 2024-04-11 15:10:00 2024-04-11 18:32:00 Emergency Cristofer Lynch [facility] 1.2.840.114 350.1.13.10 4.2.7.2.686 [id number] [facility] 2024-04-03 10:21:01 2024-04-03 10:21:01 Outpatient SFA SFA [id number] Juan Richard Max 2024-03-06 10:41:15 2024-03-06 10:41:15 Outpatient SFA SFA [id number] Juan Richard Mxa 2024-02-27 00:00:00 2024-02-27 00:00:00 Fani Keller MD: [address] [facility] [address], [place] [address] , Ph. [facility] [id number] [facility] un[facility]i fi 2024-02-17 08:45:39 2024-02-17 08:45:39 Outpatient SFA SFA [id number] Juan Richard Max 2024-02-12 08:25:12 2024-02-12 08:25:12 Outpatient SFA SFA [id number] Juan Richard Max 2024-02-10 10:28:53 2024-02-10 10:28:53 Outpatient SFA SFA [id number] Juan Richard Max 2024-02-07 13:34:27 2024-02-07 13:34:27 Outpatient SFA SFA [id number] Juan Richard Max 2024-02-06 09:37:06 2024-02-06 09:37:06 Outpatient SFA SFA [id number] Juan Richard Max 2024-02-06 00:00:00 2024-02-06 00:00:00 Outpatient Visit SFA [id number] Juan Richard Max 2024-02-04 17:55:39 2024-02-04 17:55:39 Outpatient SFA SFA [id number] Juan Santana 2024-02-04 00:00:00 2024-02-04 00:00:00 Outpatient Visit SFA [id number] Juan Santana 2024-02-04 00:00:00 2024-02-04 00:00:00 Outpatient Visit SFA [id number] Juan Santana 2024-01-30 11:31:12 2024-01-30 11:31:12 Outpatient SFA SFA [id number] Juan Santana 2023-12-19 15:28:12 2023-12-19 15:28:12 Outpatient SFA SFA [id number] Juan Santana 2023-12-19 00:00:00 2023-12-19 00:00:00 Outpatient Visit SFA [id number] Juan Santana 2023-11-28 10:17:40 2023-11-28 10:17:40 Outpatient SFA SFA [id number] Juan Santana 2023-11-15 08:18:16 2023-11-15 08:18:16 Outpatient SFA SFA [id number] Juan Santana 2023-11-14 11:05:58 2023-11-14 11:05:58 Outpatient SFA SFA [id number] Juan Santana 2023-11-14 00:00:00 2023-11-14 00:00:00 Outpatient Visit SFA [id number] Juan Santana 2023-10-27 12:36:00 2023-10-27 15:15:00 Emergency X JUAN JENSEN STEPHEN [facility] [id number] [facility] 2023-10-27 12:36:00 2023-10-27 15:15:00 Emergency Morrical, Juan O [facility] 1.2.840.114 350.1.13.10 4.2.7.2.686 [id number] [facility] 2023-10-23 11:22:22 2023-10-23 11:22:22 Outpatient SFA [place] [id number] Juan Richard Max 2023-10-15 10:18:15 2023-10-15 10:18:15 Outpatient [place] [id number] Juan Richard [place] 2023-10-07 13:40:03 2023-10-07 13:40:03 Outpatient [place] [id number] Juan Richard [place] 2023-09-26 10:52:09 2023-09-26 10:52:09 Outpatient [place] [id number] Juan Richard Max 2023-09-19 13:39:27 2023-09-19 13:39:27 Outpatient [place] [id number] Juan Richard [place] 2023-08-19 11:00:00 2023-08-19 13:30:58 Office Visit JADEN BROWN [facility] 1.2.840.114 350.1.13.58 9.2.7.2.686 [id number] [facility] 2023-07-30 09:40:46 2023-07-30 09:40:46 Outpatient [place] [id number] Juan Richard [place] 2023-05-14 21:00:00 2023-05-14 23:17:00 Emergency X Cheli SANDHU [facility] [id number] [facility] 2023-05-14 21:00:00 2023-05-14 23:17:00 Emergency Cheli Sandhu [facility] 1.2.840.114 350.1.13.10 4.2.7.2.686 [id number] [facility] 2023-05-02 11:32:33 2023-05-02 11:32:33 Outpatient SFA [place] [id number] Juan Santana 2023-04-29 17:06:53 2023-04-29 17:06:53 Outpatient SFA SFA [id number] Juan Santana 2023-03-11 14:00:00 2023-03-11 14:00:00 Outpatient SFA SFA [id number] Juan Santana 2022-11-26 09:14:01 2022-11-26 09:14:01 Outpatient SFA SFA [id number] Juan Santana 2022-10-04 13:25:10 2022-10-04 13:25:10 Outpatient SFA SFA [id number] Juan Santana 2022-07-13 10:45:38 2022-07-13 10:45:38 Outpatient SFA SFA [id number] Juan Santana 2022-07-12 14:10:28 2022-07-12 14:10:28 Outpatient SFA SFA [id number] Juan Santana 2022-07-11 13:37:25 2022-07-11 13:37:25 Outpatient SFA SFA [id number] Juan Santana 2022-04-12 13:31:38 2022-04-12 13:31:38 Outpatient SFA SFA [id number] Juan Santana 2022-04-12 00:00:00 2022-04-12 00:00:00 Outpatient Visit [id number] 2022-03-20 00:00:00 2022-03-20 00:00:00 Outpatient Visit [id number] 2022-02-05 00:00:00 2022-02-05 00:00:00 Orders Only Doctor Unassigned, [place] [facility] 1.2.840.114 350.1.13.10 4.2.7.2.686 [id number] [facility] 2022-01-19 00:00:00 2022-01-19 00:00:00 Orders Only Doctor Unassigned, [place] [facility] 1.2.840.114 350.1.13.10 4.2.7.2.686 [id number] [facility] 2022-01-17 08:00:00 2022-01-17 08:00:00 Outpatient GLENN BOUCHER [facility] JO ANN [id number] [facility] 2022-01-15 00:00:00 2022-01-15 00:00:00 Telephone Glenn Baker [facility] 1..840.114 350.1.13.10 4.2.7.2.686 [id number] [facility] 2022-01-12 12:00:00 2022-01-12 12:00:00 Outpatient WALTER Marvel Bethea [facility] JO ANN [id number] [facility] 2021-12-29 09:00:00 2021-12-29 09:25:36 Outpatient KACIE SANCHEZ [facility] [id number] [facility] 2021-12-29 09:00:00 2021-12-29 09:25:36 Office Visit Kacie Manzano [facility] 1..840.114 350.1.13.10 4.2.7.2.686 [id number] [facility] 2021-12-29 09:00:00 2021-12-29 09:25:36 Outpatient KACIE SANCHEZ [facility] [id number] [facility] 2021-12-29 09:00:00 2021-12-29 09:00:00 Outpatient KACIE SANCHEZ [facility] [id number] [facility] 2021-12-28 16:00:00 2021-12-28 16:33:08 Office Visit Chata Holman [facility] 1.84.114 350.1.13.10 4.2.7.2.686 [id number] [facility] 2021-12-28 16:00:00 2021-12-28 16:33:08 Outpatient R ALEX CHATA [facility] [id number] [facility] 2021-12-28 16:00:00 2021-12-28 16:00:00 Outpatient R CHATA HOLMAN [facility] [id number] [facility] 2021-12-28 00:00:00 2021-12-28 00:00:00 Orders Only Doctor Unassigned, [place] [facility] 1.840.114 350.1.13.10 4.2.7.2.686 [id number] [facility] 2021-06-12 09:00:00 2021-06-12 09:38:41 Outpatient R KACIE MANZANO [facility] [id number] [facility] 2021-06-12 08:36:22 2021-06-12 09:38:41 Office Visit Kacie Manzano [facility] 1..840.114 350.1.13.10 4.2.7.2.686 [id number] [facility] 2021-06-12 00:00:00 2021-06-12 00:00:00 Letter (Out) Kacie Manzano [facility] 1..840.114 350.1.13.10 4.2.7.2.686 [id number] [facility] 2021-06-12 00:00:00 2021-06-12 00:00:00 Letter (Out) Kacie Manzano [facility] 1.2.840.114 350.1.13.10 4.2.7.2.686 [id number] [facility] 2021-05-19 00:00:00 2021-05-19 00:00:00 Telephone Kacie Manzano [facility] 1.2.840.114 350.1.13.10 4.2.7.2.686 [id number] [facility] 2021-05-10 14:26:29 2021-05-10 23:59:00 Outpatient R KACIE MANZANO [facility] [id number] [facility] 2021-05-10 14:26:29 2021-05-10 23:59:00 Hospital Encounter Kacie Manzano [facility] BUILD[facility] 1.2.840.114 350.1.13.10 4.2.7.2.686 [id number] [facility] 2021-04-10 13:02:51 2021-04-10 13:33:19 Office Visit Kacie Manzano [facility] Building 1.2.840.114 350.1.13.10 4.2.7.2.686 [id number] [facility] 2021-04-10 13:00:00 2021-04-10 13:00:00 Outpatient R KACIE MANZANO [facility] [id number] [facility] 2021-04-10 00:00:00 2021-04-10 00:00:00 Letter (Out) Kacie Manzano [facility] 1.2.840.114 350.1.13.10 4.2.7.2.686 [id number] [id number] [facility] 2021-04-10 00:00:00 2021-04-10 00:00:00 Orders Only Doctor Unassigned, [place] [facility] 1..114 350.1.13.10 4.2.7.2.686 [id number] [facility] 2021-03-01 00:00:00 2021-03-01 00:00:00 Telephone [facility] 1.840.114 350.1.13.10 4.2.7.2.686 [id number] [facility] 2021-02-28 08:24:49 2021-02-28 09:16:09 Office Visit Glenn Baker [facility] CHILD [facility] 1..114 350.1.13.10 4.2.7.2.686 [id number] [facility] 2021-02-28 08:15:00 2021-02-28 08:15:00 Outpatient R GLENN BAKER [facility] [id number] [facility] 2021-02-28 00:00:00 2021-02-28 00:00:00 Letter (Out) Glenn [facility] CHILD [facility] 1..114 350.1.13.10 4.2.7.2.686 [id number] 107 [id number] [facility] 2021-02-28 00:00:00 2021-02-28 00:00:00 Letter (Out) Glenn [facility]ILD [facility] 1.0.114 350.1.13.10 4.2.7.2.686 [id number] [facility] 2021-02-27 00:00:00 2021-02-27 00:00:00 Telephone Glenn Baker [facility] 1.840.114 350.1.13.10 4.2.7.2.686 [id number] 107 [id number] [facility] [facility] 2021-02-22 08:31:54 2021-02-22 09:08:46 Office Visit Glenn Baker Roshunda R [facility] WORKER [facility] MATERNAL & CHILD [facility] 1.2.840.114 350.1.13.10 4.2.7.2.686 [id number] [facility] 2021-02-22 08:15:00 2021-02-22 08:15:00 Outpatient OSIEL MCMAHON [facility] [id number] [facility] 2021-02-22 00:00:00 2021-02-22 00:00:00 Orders Only Doctor Unassigned, [place] [facility] 1.2840.114 350.1.13.10 4.2.7.2.686 [id number] [facility] 2020-11-01 00:00:00 2020-11-01 00:00:00 Telephone Glenn Baker [facility] WORKER [facility] & CHILD [facility] 1.2840.114 350.1.13.10 4.2.7.2.686 [id number] [facility] 2020-11-01 00:00:00 2020-11-01 00:00:00 Orders Only Doctor Unassigned, [place] [facility] 1.2840.114 350.1.13.10 4.2.7.2.686 [id number] [facility] 2020-10-24 12:00:00 2020-10-24 12:00:00 Outpatient GLENN BOUCHER [facility] JO ANN [id number] [facility] 2020-10-18 10:00:00 2020-10-18 23:59:00 Hospital Encounter Glenn Baker [facility] 1.2840.114 350.1.13.10 4.2.7.2.686 [id number] [facility] 2020-10-18 00:00:00 2020-10-18 00:00:00 Outpatient GLENN STERN [facility] [id number] [facility] 2020-10-18 00:00:00 2020-10-18 00:00:00 Telephone Chata Holman [facility] & CHILD [facility] 1..840.114 350.1.13.10 4.2.7.2.686 [id number] [facility] 2020-09-20 00:00:00 2020-09-20 00:00:00 Outpatient GLENN STERN [facility] [id number] [facility] 2020-09-06 09:59:10 2020-09-06 10:36:20 Office Visit Glenn Baker [facility] 1..840.114 350.1.13.10 4.2.7.2.686 [id number] [facility] 2020-09-06 09:59:10 2020-09-06 10:36:20 Office Visit Glenn Baker [facility] 1..840.114 350.1.13.10 4.2.7.2.686 [id number] 2020-09-06 10:00:00 2020-09-06 10:00:00 Outpatient GLENN STERN [facility] [id number] [facility] 2020-07-31 00:00:00 2020-07-31 00:00:00 Osiel Navarro [facility] CHILD [facility] 1..840.114 350.1.13.10 4.2.7.2.686 [id number] [facility] 2020-07-13 08:10:53 2020-07-13 08:51:04 Office Visit Florence Vivasto Rosado [facility] WORK[facility] CHILD [facility] 1.2.840.114 350.1.13.10 4.2.7.2.686 [id number] [facility] 2020-07-13 08:15:00 2020-07-13 08:15:00 Outpatient R ORTEGA OSIEL [facility] [id number] [facility] 2020-05-31 08:24:02 2020-05-31 08:54:02 Office Visit Florence Vivasto Alonzo [facility] WORKER [facility] CHILD [facility] 1..840.114 350.1.13.10 4.2.7.2.686 [id number] [facility] 2020-05-31 08:30:00 2020-05-31 08:30:00 Outpatient Alonzo ORTEGA OSIEL [facility] [id number] [facility] 2020-05-31 00:00:00 2020-05-31 00:00:00 Orders Only Doctor Unassigned, [place] [facility] 1.84.114 350.1.13.10 4.2.7.2.686 [id number] [facility] 2020-04-25 11:24:00 2020-04-25 13:07:00 Emergency Guera Baker [facility] 1.84.114 350.1.13.10 4.2.7.2.686 [id number] [facility] 2020-04-25 00:00:00 2020-04-25 00:00:00 Orders Only Doctor Unassigned, [place] [facility] 1.284.114 350.1.13.10 4.2.7.2.686 [id number] [facility] 2020-04-21 09:15:40 2020-04-21 09:32:53 [facility] PASSEMENTERIE WORKER [facility] MAT[facility] & CHILD [facility] 1.0.114 350.1.13.10 4.2.7.2.686 [id number] [facility] 2020-04-21 08:30:00 2020-04-21 08:30:00 Outpatient R [facility] [id number] [facility] 2020-01-28 08:43:48 2020-01-28 09:22:35 [facility] PASSEMENTERIE WORKER [facility] CHILD [facility] 1.0.114 350.1.13.10 4.2.7.2.686 [id number] [facility] 2020-01-28 09:00:00 2020-01-28 09:00:00 Outpatient R [facility] [id number] [facility] 2019-11-10 08:30:00 2019-11-10 08:30:00 Outpatient R OSIEL VIVAS [facility] [id number] [facility] 2019-11-05 08:32:17 2019-11-05 09:21:05 Office Visit Osiel Vivas [facility] PASSEMENTERIE WORKER [facility] CHILD [facility] 1.84.114 350.1.13.10 4.2.7.2.686 [id number] [facility] 2019-11-05 08:30:00 2019-11-05 08:30:00 Outpatient R OSIEL VIVAS [facility] [id number] [facility] 2019-08-18 08:29:36 2019-08-18 09:09:50 [facility] PASSEMENTERIE WORKER [facility] CHILD [facility] 1.840.114 350.1.13.10 4.2.7.2.686 [id number] [facility] 2019-03-12 13:09:03 2019-03-12 14:19:18 Office Visit Pool, [facility] Resident Naveed Daley [facility] 1..114 350.1.13.10 4.2.7.2.686 [id number] [facility] 2019-03-12 00:00:00 2019-03-12 00:00:00 Orders Only Doctor Unassigned, [place] [facility] 1..114 350.1.13.10 4.2.7.2.686 [id number] [facility] 2019-03-04 08:28:59 2019-03-04 08:46:23 Nurse Visit Visit, [facility] Osiel Viv[facility] WORK[facility] MAT[facility] & CHILD [facility] 1.84.114 350.1.13.10 4.2.7.2.686 [id number] [facility] Results Test Description Test Time Test Comments Results Result Co mments Source CULTURE, URINE 2024-05-03 09:26:01 SPECIMEN NUMBER: [id number] CULTURE, URINE SPECIMEN NUMBER: [id number] SOURCE: URINE REPORT STATUS: FINAL FINAL REPORT: 05/03/2024 10,000 - 100,000 CFU/ML UROGENITAL CARSON PRESENT NO COMMON PATHOGENS UNLESS OTHERWISE INDICATED, ALL TESTING PERFORMED AT [facility] [address] [place] [address] PERIPHERAL EQUIPMENT OPERATOR: DERRICK FISHER M.D. CLIA NUMBER [id number] [place]. [id number] [facility]. Metabolic Panel ([id number])2024-04-11 22:04:22* Test Item Value Reference Range Interpretation Comme nts NA (test code = 6199698028) 135 mmol/L 135-145 K (test code = 9312928281) 3.1 mmol/L 3.5-5.0 L CL (test code = 4175826841) 113 mmol/L 98-108 H CO2 TOTAL (test code = 9656616551) 15 mmol/L 23-31 L AGAP (test code = 1983559747) 7 2-16 BUN (test code = 9564430885) 15 mg/dL 7-23 GLUCOSE (test code = 8527744310) 83 mg/dL 70-110 CREATININE (test code = 2160-0) 0.84 mg/dL 0.50-1.04 TOTAL BILI (test code = 5780383746) 0.3 mg/dL 0.1-1.1 CALCIUM (test code = 7658480430) 7.2 mg/dL 8.6-10.6 L T PROTEIN (test code = 4150213818) 5.8 g/dL 6.3-8.2 L ALBUMIN (test code = 2402748565) 2.9 g/dL 3.5-5.0 L ALK PHOS (test code = 1265017439) 128 U/L 34-122 H ALTv (test code = 1742-6) 14 U/L 5-35 AST(SGOT) (test code = 6774543704) 18 U/L 13-40 eGFR (test code = 80327-2) 88.6 mL/min/1.73m2 CKD-EPI eGFR (2020). Assuming creatinine has been stable day-to-day for at least three months, the eGFR indicates Category G2 (60 - 89 mL/min/1.73 m2) Lab Interpretation (test code = 28183-5) [id number] 20:47:03* Test Item Value Reference Range Interpretation Comme nts WBC (test code = 6690-2) 12.91 4.30-11.10 H RBC (test code = 789-8) 3.94 3.93-5.25 HGB (test code = 718-7) 13.4 g/dL 11.6-15.0 HCT (test code = 4544-3) 39.6 % 35.7-45.2 MCV (test code = 787-2) 100.5 fL 80.6-95.5 H MCH (test code = 785-6) 34.0 pg 25.9-32.8 H MCHC (test code = 786-4) 33.8 g/dL 31.6-35.1 RDW-SD (test code = 56020-9) 46.8 fL 39.0-49.9 RDW-CV (test code = 788-0) 12.6 % 12.0-15.5 PLT (test code = 777-3) 218 166-358 MPV (test code = 92415-6) 11.6 fL 9.5-12.9 NRBC/100 WBC (test code = 2824142610) 0.0 0.0-10.0 NRBC x10^3 (test code = 7669737372) See_Comment [Automated messa ge] The system which generated this result transmitted reference range: 10*3/?L. The reference range was not used to interpret this result as normal/abnormal. GRAN MAT (NEUT) % (test code = 770-8) 71.7 % IMM GRAN % (test code = 2918299737) 1.30 % LYMPH % (test code = 736-9) 18.0 % MONO % (test code = 5905-5) 8.3 % EOS % (test code = 713-8) 0.5 % BASO % (test code = 706-2) 0.2 % GRAN MAT x10^3(ANC) (test code = 1013945981) 9.26 10*3/uL 1.88-7.09 H IMM GRAN x10^3 (test code = 6180422961) 0.17 10*3/uL 0.00-0.06 H LYMPH x10^3 (test code = 731-0) 2.32 10*3/uL 1.32-3.29 MONO x10^3 (test code = 742-7) 1.07 10*3/uL 0.33-0.92 H EOS x10^3 (test code = 711-2) 0.06 10*3/uL 0.03-0.39 BASO x10^3 (test code = 704-7) 0.03 10*3/uL 0.01-0.07 Lab Interpretation (test code = 54451-7) [facility]normal [facility]2024-04-11 20:10:48* Test Item Value Reference Range Interpretation Comme nts POCT GLU (test code = 9189707496) 110 mg/dL 70-110 Lab Interpretation (test cod e = 94375-1) [facility] 24 [id number] 01:06:24* Test Item Value Reference Range Interpretation Comme nts PROTEIN, URINE, CONC. (test code = 2104) 31 MG/DL NOT ESTAB PROTEIN, URINE 24 HR (test code = 2059) 930 MG/24 HOURS 0-150 H TOTAL URINE VOLUME (test code = 2055) 3000 ML 500-3500 UNLESS OTHERWISE INDICATED, ALL TESTING PERFORMED AT [facility] [address] [place] [address] PERIPHERAL EQUIPMENT OPERATOR: DERRICK FISHER M.D. [place] NUMBER [id number] [facility]. [id number] [facility] ([employer])2024-01-01 00:00:00* Test Item Value Reference Range Interpretation Comme nts Report Summary (test code = REPORT_SUMMARY) Negative Alpha-Thalassemia (test code = 03463) Negative Beta-Hemoglobinopathies (cristhian t code = 18096) Negative Anish Disease (test code = 52306) Negative Cystic Fibrosis (test code = 02447) Negative Duchenne/Rodrigez Muscular Dys trophy (test code = 07553) Negative Familial Dysautonomia (test code = 86217) Negative Fragile X Syndrome (test cod e = 13121) Negative Galactosemia (test code = 69487) Negative Gaucher Disease (test code = 21259) Negative Medium Chain Acyl-CoA Dehydr ogenase Deficiency (test code = 86429) Negative Polycystic Kidney Disease, Autosomal Recessive (test code = 25155) Negative Aafth-Udqnz-Eswvm Syndrome ( test code = 83136) Negative Spinal Muscular Atrophy (cristhian t code = 90468) Negative Raf-Sachs Disease (test code = 30743) Negative Panel Notes (test code = CS_PANEL_NOTES) See Notes Report Note (test code = REPORT_NOTE) See Notes Footnotes (test code = FOOTNOTES) See Notes PDF Report (test code = EMBEDDED_PDF) PDF Juan SantanaRiccardo 14 ([employer])2024-01-01 00:00:00* Test Item Value Reference Range Interpretation Comme nts Report Summary (test code = REPORT_SUMMARY) Negative Alpha-Thalassemia (test code = 52142) Negative Beta-Hemoglobinopathies (cristhian t code = 12063) Negative Anish Disease (test code = 38276) Negative Cystic Fibrosis (test code = 13905) Negative Duchenne/Rodrigez Muscular Dys trophy (test code = 38712) Negative Familial Dysautonomia (test code = 05409) Negative Fragile X Syndrome (test cod e = 97959) Negative Galactosemia (test code = 93747) Negative Gaucher Disease (test code = 00153) Negative Medium Chain Acyl-CoA Dehydr ogenase Deficiency (test code = 02566) Negative Polycystic Kidney Disease, Autosomal Recessive (test code = 80933) Negative Xhtle-Gfksr-Qiqqi Syndrome ( test code = 46878) Negative Spinal Muscular Atrophy (cristhian t code = 82570) Negative Raf-Sachs Disease (test code = 37024) Negative Panel Notes (test code = CS_PANEL_NOTES) See Notes Report Note (test code = REPORT_NOTE) See Notes Footnotes (test code = FOOTNOTES) See Notes PDF Report (test code = EMBEDDED_PDF) PDF Juan SantanaRiccardo 14 ([employer])2024-01-01 00:00:00* Test Item Value Reference Range Interpretation Comme nts Report Summary (test code = REPORT_SUMMARY) Negative Alpha-Thalassemia (test code = 54298) Negative Beta-Hemoglobinopathies (cristhian t code = 43788) Negative Anish Disease (test code = 69284) Negative Cystic Fibrosis (test code = 01183) Negative Duchenne/Rodrigez Muscular Dys trophy (test code = 55144) Negative Familial Dysautonomia (test code = 39286) Negative Fragile X Syndrome (test cod e = 67171) Negative Galactosemia (test code = 16585) Negative Gaucher Disease (test code = 80135) Negative Medium Chain Acyl-CoA Dehydr ogenase Deficiency (test code = 12281) Negative Polycystic Kidney Disease, Autosomal Recessive (test code = 63090) Negative Rqcww-Nukho-Lpjix Syndrome ( test code = 67181) Negative Spinal Muscular Atrophy (cristhian t code = 33008) Negative Raf-Sachs Disease (test code = 29891) Negative Panel Notes (test code = CS_PANEL_NOTES) See Notes Report Note (test code = REPORT_NOTE) See Notes Footnotes (test code = FOOTNOTES) See Notes PDF Report (test code = EMBEDDED_PDF) PDF Juan SantanaMATERNAL AFP FOR NTD [id number] 09:37:48* Test Item Value Reference Range Interpretation Comme nts INTERPRETATION (test code = 625518) SCREEN NEGATIVE Neural tube defect risk (test code = 11653) 1:6528 Neural tube defect interpretation (test code = 06949) (NOTE) --- NORMAL - NOT AT INCREASED RISK --- The AFP results indicate a risk for neural tube defect less than or equal to that of the general population. (A normal result is defined as an Adjusted AFP M.O.M. of less than 2.50 for non-diabetics and less than 2.0 for diabetics). The gestation age was based upon Ultrasound Examination. Note that this is a screening test only. Normal results are not a guarantee of a normal . DATE OF (test code = 2660) 1980 MATERNAL WEIGHT (test code = 2657) 164 LBS INITIAL/REPEAT (test code = 244914) INITIAL FAMILY HISTORY OF NTD (test code = 614705) NO INSULIN DEP. DIABETIC (test code = 2659) NO RACE (test code = 2658) SMOKER? (test code = 860882) NO NUMBER OF GESTATIONS (test code = 82864) 1 GESTATIONAL AGE (test code = 2656) 17.4 WEEKS DETERMINED BY: (test code = 2654) US DATE OF SONOGRAM (test code = 09861) 12/03/2023 GESTATIONAL AGE AT SONO (test code = 2653) 15.1 WEEKS ADJUST AFP M.O.M. (test code = 2661) 1.20 M.O.M. AFP (test code = 96726) 44.7 NG/ML UNLESS OTHERWISE INDICATED, ALL TESTING PERFORMED AT [facility] [address] [place] [address] PERIPHERAL EQUIPMENT OPERATOR: DERRICK FISHER M.D. CLIA NUMBER [id number] [facility] [place]. [id number] MATERNAL AFP FOR NTD [id number] 00:00:00* Test Item Value Reference Range Interpretation Comme nts INTERPRETATION (test code = 879474) SCREEN NEGATIVE Neural tube defect risk (cristhian t code = 82761) 1:6528 Neural tube defect interpretation (test code = 70143) (NOTE) DATE OF (test code = 2660) 1980 MATERNAL WEIGHT (test code = 2657) 164 LBS INITIAL/REPEAT (test code = 335312) INITIAL FAMILY HISTORY OF NTD (test code = 684444) NO INSULIN DEP. DIABETIC (test code = 2659) NO RACE (test code = 2658) SMOKER? (test code = 767732) NO NUMBER OF GESTATIONS (test code = 08781) 1 GESTATIONAL AGE (test code = 2656) 17.4 WEEKS DETERMINED BY: (test code = 2654) US DATE OF SONOGRAM (test code = 07262) 12/03/2023 GESTATIONAL AGE AT SONO (cristhian t code = 2653) 15.1 WEEKS ADJUST AFP M.O.M. (test code = 2661) 1.20 M.O.M. AFP (test code = 79052) 44.7 NG/ML Juan F AustinMATERNAL AFP FOR NTD [id number] 00:00:00* Test Item Value Reference Range Interpretation Comme nts INTERPRETATION (test code = 494890) SCREEN NEGATIVE Neural tube defect risk (cristhian t code = 13228) 1:6528 Neural tube defect interpretation (test code = 91962) (NOTE) DATE OF (test code = 2660) 1980 MATERNAL WEIGHT (test code = 2657) 164 LBS INITIAL/REPEAT (test code = 813173) INITIAL FAMILY HISTORY OF NTD (test code = 603965) NO INSULIN DEP. DIABETIC (test code = 2659) NO RACE (test code = 2658) SMOKER? (test code = 011630) NO NUMBER OF GESTATIONS (test code = 16026) 1 GESTATIONAL AGE (test code = 2656) 17.4 WEEKS DETERMINED BY: (test code = 2654) US DATE OF SONOGRAM (test code = 42389) 12/03/2023 GESTATIONAL AGE AT SONO (cristhian t code = 2653) 15.1 WEEKS ADJUST AFP M.O.M. (test code = 2661) 1.20 M.O.M. AFP (test code = 37994) 44.7 NG/ML Juan F AustinMATERNAL AFP FOR NTD [id number] 00:00:00* Test Item Value Reference Range Interpretation Comme nts INTERPRETATION (test code = 485841) SCREEN NEGATIVE Neural tube defect risk (cristhian t code = 13298) 1:6528 Neural tube defect interpretation (test code = 69209) (NOTE) DATE OF (test code = 2660) 1980 MATERNAL WEIGHT (test code = 2657) 164 LBS INITIAL/REPEAT (test code = 244684) INITIAL FAMILY HISTORY OF NTD (test code = 076129) NO INSULIN DEP. DIABETIC (test code = 2659) NO RACE (test code = 2658) SMOKER? (test code = 307969) NO NUMBER OF GESTATIONS (test code = 37128) 1 GESTATIONAL AGE (test code = 2656) 17.4 WEEKS DETERMINED BY: (test code = 2654) US DATE OF SONOGRAM (test code = 80173) 12/03/2023 GESTATIONAL AGE AT SONO (cristhian t code = 2653) 15.1 WEEKS ADJUST AFP M.O.M. (test code = 2661) 1.20 M.O.M. AFP (test code = 05012) 44.7 NG/ML Juan Branch, [id number] 08:45:55SPECIMEN NUMBER: [id number] CULTURE, URINE SPECIMEN NUMBER: [id number] SPECIMEN COMMENT: URINE SOURCE: URINE REPORT STATUS: FINAL FINAL REPORT: 11/16/2023 NO GROWTH AFTER 36 HOURS INCUBATIONCOMPREHENSIVE METABOLIC [id number] 05:47:48* Test Item Value Reference Range Interpretation Comme nts GLUCOSE (test code = 2217) 97 MG/DL 70-99 BUN (test code = 2208) 12 MG/DL 6-20 CREATININE (test code = 2214) 0.96 MG/DL 0.60-1.30 eGFR (2020 CKD-EPI) (test co de = 98144) 75 ML/MIN/1.73 >60 CALC BUN/CREAT (test code = 2235) 13 RATIO 6-28 SODIUM (test code = 2231) 136 MEQ/L 133-146 POTASSIUM (test code = 2228) 3.9 MEQ/L 3.5-5.4 CHLORIDE (test code = 2215) 100 MEQ/L 95-107 CARBON DIOXIDE (test code = 2206) 22 MEQ/L 19-31 CALCIUM (test code = 2209) 9.3 MG/DL 8.5-10.5 PROTEIN, TOTAL (test code = 2229) 6.7 G/DL 6.1-8.3 ALBUMIN (test code = 220) 3.9 G/DL 3.5-5.2 CALC GLOBULIN (test code = 2240) 2.8 G/DL 1.9-3.7 CALC A/G RATIO (test code = 2234) 1.4 RATIO 1.0-2.6 BILIRUBIN, TOTAL (test code = 2207) 0.2 MG/DL <=1.2 ALKALINE PHOSPHATASE (test code = 2204) 72 U/L 40-113 AST (test code = 2218) 25 U/L 9-40 ALT (test code = 2219) 24 U/L 5-40 CBC W/AUTO DIFF WITH [id number] 04:05:16* Test Item Value Reference Range Interpretation Comme nts WBC (test code = 1001) 14.2 K/UL 3.5-11.0 H RBC (test code = 1002) 3.86 M/UL 3.80-5.40 HEMOGLOBIN (test code = 1003) 12.7 G/DL 11.5-15.5 HEMATOCRIT (test code = 1004) 38.2 % 34.0-45.0 MCV (test code = 1005) 99.0 fL 80.0-99.0 MCH (test code = 1006) 32.9 PG 25.0-33.0 MCHC (test code = 1007) 33.2 G/DL 31.0-36.0 RDW (test code = 1038) 13.2 % 11.5-15.0 NEUTROPHILS (test code = 1008) 73.2 % LYMPHOCYTES (test code = 1010) 17.2 % MONOCYTES (test code = 1011) 7.3 % EOSINOPHILS (test code = 1012) 0.9 % BASOPHILS (test code = 1013) 0.2 % IMMATURE GRANULOCYTES (test code = 1036) 1.2 % NUCLEATED RBCS (test code = 1065) 0.0 /100 WBC'S See_Comment [Automated messa ge] The system which generated this result transmitted reference range: 0.0. The reference range was not used to interpret this result as normal/abnormal. PLATELET COUNT (test code = 1015) 283 K/UL 130-400 ABSOLUTE NEUTROPHILS (test code = 1066) 10.35 K/UL 1.50-7.50 H ABSOLUTE LYMPHOCYTES (test code = 1067) 2.43 K/UL 1.00-4.00 ABSOLUTE MONOCYTES (test code = 1068) 1.04 K/UL 0.20-1.00 H ABSOLUTE EOSINOPHILS (test code = 1040) 0.13 K/UL 0.00-0.50 ABSOLUTE BASOPHILS (test code = 1069) 0.03 K/UL 0.00-0.20 ABS IMMATURE GRANULOCYTES (test code = 1020) 0.17 K/UL 0.00-0.10 H ABS NUCLEATED RBCS (test code = 96391) 0.00 K/UL 0.00-0.11 PROTHROMBIN TIME (PT)2023-11-16 03:34:55* Test Item Value Reference Range Interpretation Comme nts PROTHROMBIN TIME (PT) (test code = 1402) 12.8 SECONDS 12.5-14.7 INR (test code = 80135) 0.9 SEE BELOW CURRENT RECOMMENDATIONS ARE FOR AN INR OF 2.0-3.0 FOR ALL PATIENTS ON VITAMIN K ANTAGONISTS, EXCEPT THOSE WITH PROSTHETIC HEART VALVES, FOR WHOM INR OF 2.5-3.5 IS RECOMMENDED. [id number] 03:34:55* Test Item Value Reference Range Interpretation Comme nts PTT (test code = 1403) 31.1 SECONDS 25.2-40.0 UNLESS OTHERWISE INDICATED, ALL TESTING PERFORMED AT [facility] [address] [place] [address] PERIPHERAL EQUIPMENT OPERATOR: DERRICK FISHER M.D. CLIA NUMBER [id number] [facility] [place]. [id number] CBC W/AUTO [id number] 00:00:00* Test Item Value Reference Range Interpretation Comme nts WBC (test code = 1001) 14.2 K/UL RBC (test code = 1002) 3.86 M/UL HEMOGLOBIN (test code = 1003) 12.7 G/DL HEMATOCRIT (test code = 1004) 38.2 % MCV (test code = 1005) 99.0 fL MCH (test code = 1006) 32.9 PG MCHC (test code = 1007) 33.2 G/DL RDW (test code = 1038) 13.2 % NEUTROPHILS (test code = 1008) 73.2 % LYMPHOCYTES (test code = 1010) 17.2 % MONOCYTES (test code = 1011) 7.3 % EOSINOPHILS (test code = 1012) 0.9 % BASOPHILS (test code = 1013) 0.2 % IMMATURE GRANULOCYTES (test code = 1036) 1.2 % NUCLEATED RBCS (test code = 1065) 0.0 /100WBC'S PLATELET COUNT (test code = 1015) 283 K/UL ABSOLUTE NEUTROPHILS (test c ode = 1066) 10.35 K/UL ABSOLUTE LYMPHOCYTES (test c ode = 1067) 2.43 K/UL ABSOLUTE MONOCYTES (test cod e = 1068) 1.04 K/UL ABSOLUTE EOSINOPHILS (test c ode = 1040) 0.13 K/UL ABSOLUTE BASOPHILS (test cod e = 1069) 0.03 K/UL ABS IMMATURE GRANULOCYTES (t est code = 1020) 0.17 K/UL ABS NUCLEATED RBCS (test cod e = 12706) 0.00 K/UL Juan Richard MaxCULTURE, [id number] 00:00:00* Test Item Value Reference Range Interpretation Comme nts CULTURE, URINE (test code = 87715) SPECIMEN NUMBER: [id number] Juan Richard MaxCOMPREHENSIVE METABOLIC [id number] 00:00:00* Test Item Value Reference Range Interpretation Comme nts GLUCOSE (test code = 2217) 97 MG/DL BUN (test code = 2208) 12 MG/DL CREATININE (test code = 2214) 0.96 MG/DL eGFR (2020 CKD-EPI) (test co de = 71443) 75 ML/MIN/1.73 CALC BUN/CREAT (test code = 2235) 13 RATIO SODIUM (test code = 2231) 136 MEQ/L POTASSIUM (test code = 2228) 3.9 MEQ/L CHLORIDE (test code = 2215) 100 MEQ/L CARBON DIOXIDE (test code = 2206) 22 MEQ/L CALCIUM (test code = 2209) 9.3 MG/DL PROTEIN, TOTAL (test code = 2229) 6.7 G/DL ALBUMIN (test code = 2201) 3.9 G/DL CALC GLOBULIN (test code = 2240) 2.8 G/DL CALC A/G RATIO (test code = 2234) 1.4 RATIO BILIRUBIN, TOTAL (test code = 2207) 0.2 MG/DL ALKALINE PHOSPHATASE (test code = 2204) 72 U/L AST (test code = 2218) 25 U/L ALT (test code = 2219) 24 U/L Juan Richard MaxPROTHROMBIN TIME (PT)2023-11-16 00:00:00* Test Item Value Reference Range Interpretation Comme nts PROTHROMBIN TIME (PT) (test code = 1402) 12.8 SECONDS INR (test code = 94562) 0.9 Juan [id number] 00:00:00* Test Item Value Reference Range Interpretation Comme nts PTT (test code = 1403) 31.1 SECONDS Juan SantanaCBC W/AUTO [id number] 00:00:00* Test Item Value Reference Range Interpretation Comme nts WBC (test code = 1001) 14.2 K/UL RBC (test code = 1002) 3.86 M/UL HEMOGLOBIN (test code = 1003) 12.7 G/DL HEMATOCRIT (test code = 1004) 38.2 % MCV (test code = 1005) 99.0 fL MCH (test code = 1006) 32.9 PG MCHC (test code = 1007) 33.2 G/DL RDW (test code = 1038) 13.2 % NEUTROPHILS (test code = 1008) 73.2 % LYMPHOCYTES (test code = 1010) 17.2 % MONOCYTES (test code = 1011) 7.3 % EOSINOPHILS (test code = 1012) 0.9 % BASOPHILS (test code = 1013) 0.2 % IMMATURE GRANULOCYTES (test code = 1036) 1.2 % NUCLEATED RBCS (test code = 1065) 0.0 /100WBC'S PLATELET COUNT (test code = 1015) 283 K/UL ABSOLUTE NEUTROPHILS (test c ode = 1066) 10.35 K/UL ABSOLUTE LYMPHOCYTES (test c ode = 1067) 2.43 K/UL ABSOLUTE MONOCYTES (test cod e = 1068) 1.04 K/UL ABSOLUTE EOSINOPHILS (test c ode = 1040) 0.13 K/UL ABSOLUTE BASOPHILS (test cod e = 1069) 0.03 K/UL ABS IMMATURE GRANULOCYTES (t est code = 1020) 0.17 K/UL ABS NUCLEATED RBCS (test cod e = 45889) 0.00 K/UL Juan SantanaCULTURE, [id number] 00:00:00* Test Item Value Reference Range Interpretation Comme nts CULTURE, URINE (test code = 98702) SPECIMEN NUMBER: [id number] Juan SantanaCOMPREHENSIVE METABOLIC [id number] 00:00:00* Test Item Value Reference Range Interpretation Comme nts GLUCOSE (test code = 2217) 97 MG/DL BUN (test code = 2208) 12 MG/DL CREATININE (test code = 2214) 0.96 MG/DL eGFR (2020 CKD-EPI) (test co de = 14059) 75 ML/MIN/1.73 CALC BUN/CREAT (test code = 2235) 13 RATIO SODIUM (test code = 2231) 136 MEQ/L POTASSIUM (test code = 2228) 3.9 MEQ/L CHLORIDE (test code = 2215) 100 MEQ/L CARBON DIOXIDE (test code = 2206) 22 MEQ/L CALCIUM (test code = 2209) 9.3 MG/DL PROTEIN, TOTAL (test code = 2229) 6.7 G/DL ALBUMIN (test code = 2201) 3.9 G/DL CALC GLOBULIN (test code = 2240) 2.8 G/DL CALC A/G RATIO (test code = 2234) 1.4 RATIO BILIRUBIN, TOTAL (test code = 2207) 0.2 MG/DL ALKALINE PHOSPHATASE (test code = 2204) 72 U/L AST (test code = 2218) 25 U/L ALT (test code = 2219) 24 U/L Juan SantanaPROTHROMBIN TIME (PT)2023-11-16 00:00:00* Test Item Value Reference Range Interpretation Comme nts PROTHROMBIN TIME (PT) (test code = 1402) 12.8 SECONDS INR (test code = 37716) 0.9 Juan [id number] 00:00:00* Test Item Value Reference Range Interpretation Comme nts PTT (test code = 1403) 31.1 SECONDS Juan SantanaCBC W/AUTO [id number] 00:00:00* Test Item Value Reference Range Interpretation Comme nts WBC (test code = 1001) 14.2 K/UL RBC (test code = 1002) 3.86 M/UL HEMOGLOBIN (test code = 1003) 12.7 G/DL HEMATOCRIT (test code = 1004) 38.2 % MCV (test code = 1005) 99.0 fL MCH (test code = 1006) 32.9 PG MCHC (test code = 1007) 33.2 G/DL RDW (test code = 1038) 13.2 % NEUTROPHILS (test code = 1008) 73.2 % LYMPHOCYTES (test code = 1010) 17.2 % MONOCYTES (test code = 1011) 7.3 % EOSINOPHILS (test code = 1012) 0.9 % BASOPHILS (test code = 1013) 0.2 % IMMATURE GRANULOCYTES (test code = 1036) 1.2 % NUCLEATED RBCS (test code = 1065) 0.0 /100WBC'S PLATELET COUNT (test code = 1015) 283 K/UL ABSOLUTE NEUTROPHILS (test c ode = 1066) 10.35 K/UL ABSOLUTE LYMPHOCYTES (test c ode = 1067) 2.43 K/UL ABSOLUTE MONOCYTES (test cod e = 1068) 1.04 K/UL ABSOLUTE EOSINOPHILS (test c ode = 1040) 0.13 K/UL ABSOLUTE BASOPHILS (test cod e = 1069) 0.03 K/UL ABS IMMATURE GRANULOCYTES (t est code = 1020) 0.17 K/UL ABS NUCLEATED RBCS (test cod e = 66227) 0.00 K/UL Juan Richard MaxCULTURE, [id number] 00:00:00* Test Item Value Reference Range Interpretation Comme nts CULTURE, URINE (test code = 38821) SPECIMEN NUMBER: [id number] Juan Richard MaxCOMPREHENSIVE METABOLIC [id number] 00:00:00* Test Item Value Reference Range Interpretation Comme nts GLUCOSE (test code = 2217) 97 MG/DL BUN (test code = 2208) 12 MG/DL CREATININE (test code = 2214) 0.96 MG/DL eGFR (2020 CKD-EPI) (test co de = 26039) 75 ML/MIN/1.73 CALC BUN/CREAT (test code = 2235) 13 RATIO SODIUM (test code = 2231) 136 MEQ/L POTASSIUM (test code = 2228) 3.9 MEQ/L CHLORIDE (test code = 2215) 100 MEQ/L CARBON DIOXIDE (test code = 2206) 22 MEQ/L CALCIUM (test code = 2209) 9.3 MG/DL PROTEIN, TOTAL (test code = 2229) 6.7 G/DL ALBUMIN (test code = 2201) 3.9 G/DL CALC GLOBULIN (test code = 2240) 2.8 G/DL CALC A/G RATIO (test code = 2234) 1.4 RATIO BILIRUBIN, TOTAL (test code = 2207) 0.2 MG/DL ALKALINE PHOSPHATASE (test code = 2204) 72 U/L AST (test code = 2218) 25 U/L ALT (test code = 2219) 24 U/L Juan SantanaPROTHROMBIN TIME (PT)2023-11-16 00:00:00* Test Item Value Reference Range Interpretation Comme nts PROTHROMBIN TIME (PT) (test code = 1402) 12.8 SECONDS INR (test code = 97783) 0.9 Juan [id number] 00:00:00* Test Item Value Reference Range Interpretation Comme nts PTT (test code = 1403) 31.1 SECONDS Juan SantanaCBC W/AUTO [id number] 00:00:00* Test Item Value Reference Range Interpretation Comme nts WBC (test code = 1001) 14.2 K/UL RBC (test code = 1002) 3.86 M/UL HEMOGLOBIN (test code = 1003) 12.7 G/DL HEMATOCRIT (test code = 1004) 38.2 % MCV (test code = 1005) 99.0 fL MCH (test code = 1006) 32.9 PG MCHC (test code = 1007) 33.2 G/DL RDW (test code = 1038) 13.2 % NEUTROPHILS (test code = 1008) 73.2 % LYMPHOCYTES (test code = 1010) 17.2 % MONOCYTES (test code = 1011) 7.3 % EOSINOPHILS (test code = 1012) 0.9 % BASOPHILS (test code = 1013) 0.2 % IMMATURE GRANULOCYTES (test code = 1036) 1.2 % NUCLEATED RBCS (test code = 1065) 0.0 /100WBC'S PLATELET COUNT (test code = 1015) 283 K/UL ABSOLUTE NEUTROPHILS (test c ode = 1066) 10.35 K/UL ABSOLUTE LYMPHOCYTES (test c ode = 1067) 2.43 K/UL ABSOLUTE MONOCYTES (test cod e = 1068) 1.04 K/UL ABSOLUTE EOSINOPHILS (test c ode = 1040) 0.13 K/UL ABSOLUTE BASOPHILS (test cod e = 1069) 0.03 K/UL ABS IMMATURE GRANULOCYTES (t est code = 1020) 0.17 K/UL ABS NUCLEATED RBCS (test cod e = 66831) 0.00 K/UL Juan SantanaCOMPREHENSIVE METABOLIC [id number] 00:00:00* Test Item Value Reference Range Interpretation Comme nts GLUCOSE (test code = 2217) 97 MG/DL BUN (test code = 2208) 12 MG/DL CREATININE (test code = 2214) 0.96 MG/DL eGFR (2020 CKD-EPI) (test co de = 56473) 75 ML/MIN/1.73 CALC BUN/CREAT (test code = 2235) 13 RATIO SODIUM (test code = 2231) 136 MEQ/L POTASSIUM (test code = 2228) 3.9 MEQ/L CHLORIDE (test code = 2215) 100 MEQ/L CARBON DIOXIDE (test code = 2206) 22 MEQ/L CALCIUM (test code = 2209) 9.3 MG/DL PROTEIN, TOTAL (test code = 2229) 6.7 G/DL ALBUMIN (test code = 2201) 3.9 G/DL CALC GLOBULIN (test code = 2240) 2.8 G/DL CALC A/G RATIO (test code = 2234) 1.4 RATIO BILIRUBIN, TOTAL (test code = 2207) 0.2 MG/DL ALKALINE PHOSPHATASE (test code = 2204) 72 U/L AST (test code = 2218) 25 U/L ALT (test code = 2219) 24 U/L Juan SantanaCULTURE, [id number] 00:00:00* Test Item Value Reference Range Interpretation Comme nts CULTURE, URINE (test code = 05064) SPECIMEN NUMBER: [id number] Juan Richard MaxPROTHROMBIN TIME (PT)2023-11-16 00:00:00* Test Item Value Reference Range Interpretation Comme nts PROTHROMBIN TIME (PT) (test code = 1402) 12.8 SECONDS INR (test code = 31238) 0.9 Juan [id number] 00:00:00* Test Item Value Reference Range Interpretation Comme nts PTT (test code = 1403) 31.1 SECONDS Juan SantanaPAP TEST, THINPREP, [id number] 18:17:57* Test Item Value Reference Range Interpretation Comme nts SOURCE: (test code = 8001) Cervical/Endo cervical SLIDES: (test code = 8011) 1 LMP: (test code = 8021) 07/22/2023 SPECIMEN ADEQUACY: (test code = 58066) (NOTE) Satisfactory for evaluation. Endocervical cells/transformation zone component present. INTERPRETATION: (test code = 04045) NILM/NO EPITH. ABNORMALITY;S EE BELOW ---- NEGATIVE FOR INTRAEPITHELIAL LESION OR MALIGNANCY (NILM) - UTILITY TRACTOR OPERATOR: (test code = 8101) TEVIN Patel(ASCP) IAC LOCATION: (test code = 14491) (NOTE) Specimens proces sed and interpreted at [facility], [address] [place] [id number], , CLIA: [id number] CPT: (test code = 8140) (NOTE) 01020 UNLESS OTH ERWISE INDICATED, COMPUTER AIDED AND UTILITY TRACTOR OPERATOR SCREENING PERFORMED. The Pap test is a screening test with an inherent, but low probability of error. Your patient should be reminded to consult you immediately if she experiences any suspicious signs or symptoms, regardless of her Pap test result. An alternate report format containing images or consolidated prior Pap history is available as applicable. CT/NG, NAAT, [id number] 18:10:34* Test Item Value Reference Range Interpretation Comme nts CHLAMYDIA, NAAT, THINPREP (test code = 40154) NEGATIVE NEGATIVE A negative resul t does not exclude low level infection, specimensampling error, or collection error. Testing is performed with the [employer] 6800/8800 systems usingreal-time Polymerase Chain Reaction (PCR) method. GONORRHEA, NAAT, THINPREP (test code = 51802) NEGATIVE NEGATIVE A negative resul t does not exclude low level infection, specimensampling error, or collection error. Testing is performed with the [employer] 6800/8800 systems usingreal-time Polymerase Chain Reaction (PCR) method. HPV HIGH RISK WITH GENOTYPE, [id number] 17:22:27* Test Item Value Reference Range Interpretation Comme nts HPV HIGH RISK INTERP (test code = 24833) NEGATIVE NEGATIVE HPV 16 (test code = 56647) NEGATIVE HPV 18 (test code = 09917) NEGATIVE HPV, HR, OTHER GENOTYPES (test code = 40817) NEGATIVE Testing methodol ogy is real-time PCR utilizing hydrolysis probes with the [employer] system. The test individually detects genotypes 16 and 18, as well as the other 12 high risk types (31,33,35,39,45,51,52,56 ,58,59,66,68). The expected result is negative. A negative result does not rule out the presence of HPV not included in the genotype set, a low level of infection or specimen sampling error. UNLESS OTHERWISE INDICATED, ALL TESTING PERFORMED AT [facility] [address] [place] [address] PERIPHERAL EQUIPMENT OPERATOR: DERRICK FISHER M.D. CLIA NUMBER [id number] [place]. [id number] VAGINAL PATHOGENS DNA [id number] 12:45:34* Test Item Value Reference Range Interpretation Comme nts MARLENE SPECIES (test code = ) NEGATIVE NEGATIVE G. VAGINALIS (test code = 99986) NEGATIVE NEGATIVE T. VAGINALIS (test code = 23661) NEGATIVE NEGATIVE Note: The [facility] VPIII Microbial Identification Testis a DNA probe test intended for use in the detectionand identification of Marlene species, Gardnerellavaginalis and Trichomonas vaginalis nucleic acid. UNLESS OTHERWISE INDICATED, ALL TESTING PERFORMED AT [facility] [address] [place] [id number] PERIPHERAL EQUIPMENT OPERATOR: DERRICK FISHER M.D. CLIA NUMBER [id number] [place]. [id number] VAGINAL PATHOGENS DNA [id number] 00:00:00* Test Item Value Reference Range Interpretation Comme nts MARLENE SPECIES (test code = 03206) NEGATIVE G. VAGINALIS (test code = 86296) NEGATIVE T. VAGINALIS (test code = 70788) NEGATIVE Juan Hilary AustinGC AND CHLAMYDIA AMPLIFIED, [id number] 00:00:00* Test Item Value Reference Range Interpretation Comme nts CHLAMYDIA, NAAT, THINPREP (t est code = 41945) NEGATIVE GONORRHEA, NAAT, THINPREP (t est code = 16216) NEGATIVE Juan Richard AustinPAP TEST, THINPREP, [id number] 00:00:00* Test Item Value Reference Range Interpretation Comme nts SOURCE: (test code = 8001) Cervical/Endocervical SLIDES: (test code = 8011) 1 LMP: (test code = 8021) 07/22/2023 SPECIMEN ADEQUACY: (test code = 01231) (NOTE) INTERPRETATION: (test code = 49183) NILM/NO EPITH. ABNORMALITY;SEE BELOW UTILITY TRACTOR OPERATOR: (test code = 8101) TEVIN Patel(ASCP)IAC LOCATION: (test code = 92518) (NOTE) CPT: (test code = 8140) (NOTE) Juan Richard MaxHPV HIGH RISK WITH GENOTYPE, [id number] 00:00:00* Test Item Value Reference Range Interpretation Comme nts HPV HIGH RISK INTERP (test c ode = 93303) NEGATIVE HPV 16 (test code = 68283) NEGATIVE HPV 18 (test code = 76895) NEGATIVE HPV, HR, OTHER GENOTYPES (te st code = 48450) NEGATIVE Juan SantanaVAGINAL PATHOGENS DNA [id number] 00:00:00* Test Item Value Reference Range Interpretation Comme nts MARLENE SPECIES (test code = 15898) NEGATIVE G. VAGINALIS (test code = 04594) NEGATIVE T. VAGINALIS (test code = 33543) NEGATIVE Juan Richard AustinGC AND CHLAMYDIA AMPLIFIED, [id number] 00:00:00* Test Item Value Reference Range Interpretation Comme nts CHLAMYDIA, NAAT, THINPREP (t est code = 75737) NEGATIVE GONORRHEA, NAAT, THINPREP (t est code = 60096) NEGATIVE Juan Richard AustinPAP TEST, THINPREP, [id number] 00:00:00* Test Item Value Reference Range Interpretation Comme nts SOURCE: (test code = 8001) Cervical/Endocervical SLIDES: (test code = 8011) 1 LMP: (test code = 8021) 07/22/2023 SPECIMEN ADEQUACY: (test code = 47018) (NOTE) INTERPRETATION: (test code = 19069) NILM/NO EPITH. ABNORMALITY;SEE BELOW UTILITY TRACTOR OPERATOR: (test code = 8101) TEVIN Patel(ASCP)[facility] LOCATION: (test code = 95970) (NOTE) CPT: (test code = 8140) (NOTE) Juan Richard AustinHPV HIGH RISK WITH GENOTYPE, [id number] 00:00:00* Test Item Value Reference Range Interpretation Comme nts HPV HIGH RISK INTERP (test c ode = 22363) NEGATIVE HPV 16 (test code = 80678) NEGATIVE HPV 18 (test code = 94289) NEGATIVE HPV, HR, OTHER GENOTYPES (te st code = 75389) NEGATIVE Juan Richard AustinGC AND CHLAMYDIA AMPLIFIED, [id number] 00:00:00* Test Item Value Reference Range Interpretation Comme nts CHLAMYDIA, NAAT, THINPREP (t est code = 15635) NEGATIVE GONORRHEA, NAAT, THINPREP (t est code = 01051) NEGATIVE Juan SantanaPAP TEST, THINPREP, [id number] 00:00:00* Test Item Value Reference Range Interpretation Comme nts SOURCE: (test code = 8001) Cervical/Endocervical SLIDES: (test code = 8011) 1 LMP: (test code = 8021) 07/22/2023 SPECIMEN ADEQUACY: (test code = 98663) (NOTE) INTERPRETATION: (test code = 29578) NILM/NO EPITH. ABNORMALITY;SEE BELOW UTILITY TRACTOR OPERATOR: (test code = 8101) TEVIN Patel(ASCP)[facility] LOCATION: (test code = 49237) (NOTE) CPT: (test code = 8140) (NOTE) Juan Richard AustinHPV HIGH RISK WITH GENOTYPE, [id number] 00:00:00* Test Item Value Reference Range Interpretation Comme nts HPV HIGH RISK INTERP (test c ode = 22158) NEGATIVE HPV 16 (test code = 11872) NEGATIVE HPV 18 (test code = 76187) NEGATIVE HPV, HR, OTHER GENOTYPES (te st code = 10628) NEGATIVE Juan F AustinGC AND CHLAMYDIA AMPLIFIED, [id number] 00:00:00* Test Item Value Reference Range Interpretation Comme nts CHLAMYDIA, NAAT, THINPREP (t est code = 12278) NEGATIVE GONORRHEA, NAAT, THINPREP (t est code = 37277) NEGATIVE Juan Richard AustinVAGINAL PATHOGENS DNA [id number] 00:00:00* Test Item Value Reference Range Interpretation Comme nts MARLENE SPECIES (test code = ) NEGATIVE G. VAGINALIS (test code = 99857) NEGATIVE T. VAGINALIS (test code = 82030) NEGATIVE Juan SantanaPAP TEST, THINPREP, [id number] 00:00:00* Test Item Value Reference Range Interpretation Comme nts SOURCE: (test code = 8001) Cervical/Endocervical SLIDES: (test code = 8011) 1 LMP: (test code = 8021) 07/22/2023 SPECIMEN ADEQUACY: (test code = 92407) (NOTE) INTERPRETATION: (test code = 05958) NILM/NO EPITH. ABNORMALITY;SEE BELOW UTILITY TRACTOR OPERATOR: (test code = 8101) TEVIN Patel(ASCP)IAC LOCATION: (test code = 13598) (NOTE) CPT: (test code = 8140) (NOTE) Juan SantanaHPV HIGH RISK WITH GENOTYPE, [id number] 00:00:00* Test Item Value Reference Range Interpretation Comme nts HPV HIGH RISK INTERP (test c ode = 75355) NEGATIVE HPV 16 (test code = 09368) NEGATIVE HPV 18 (test code = 65359) NEGATIVE HPV, HR, OTHER GENOTYPES (te st code = 64830) NEGATIVE Juan SantanaVAGINAL PATHOGENS DNA [id number] 00:00:00* Test Item Value Reference Range Interpretation Comme nts MARLENE SPECIES (test code = ) NEGATIVE G. VAGINALIS (test code = 32376) NEGATIVE T. VAGINALIS (test code = 68237) NEGATIVE Juan Richard AustinGC AND CHLAMYDIA AMPLIFIED, [id number] 00:00:00* Test Item Value Reference Range Interpretation Comme nts CHLAMYDIA, NAAT, THINPREP (t est code = 35327) NEGATIVE GONORRHEA, NAAT, THINPREP (t est code = 67649) NEGATIVE Juan Richard AustinPAP TEST, THINPREP, [id number] 00:00:00* Test Item Value Reference Range Interpretation Comme nts SOURCE: (test code = 8001) Cervical/Endocervical SLIDES: (test code = 8011) 1 LMP: (test code = 8021) 07/22/2023 SPECIMEN ADEQUACY: (test code = 16303) (NOTE) INTERPRETATION: (test code = 23114) NILM/NO EPITH. ABNORMALITY;SEE BELOW UTILITY TRACTOR OPERATOR: (test code = 8101) TEVIN Patel(ASCP)IAC LOCATION: (test code = 14230) (NOTE) CPT: (test code = 8140) (NOTE) Juan SantanaHPV HIGH RISK WITH GENOTYPE, [id number] 00:00:00* Test Item Value Reference Range Interpretation Comme nts HPV HIGH RISK INTERP (test c ode = 90290) NEGATIVE HPV 16 (test code = 78791) NEGATIVE HPV 18 (test code = 62963) NEGATIVE HPV, HR, OTHER GENOTYPES (te st code = 00155) NEGATIVE Juan Bondp. Metabolic Panel ([id number])[id number] 19:37:17* Test Item Value Reference Range Interpretation Comme nts NA (test code = 2767372059) 135 mmol/L 135-145 K (test code = 4034038814) 3.3 mmol/L 3.5-5.0 L CL (test code = 6319916034) 100 mmol/L 98-108 CO2 TOTAL (test code = 8098225037) 25 mmol/L 23-31 AGAP (test code = 2292973058) 10 2-16 BUN (test code = 1787603305) 16 mg/dL 7-23 GLUCOSE (test code = 9195376527) 95 mg/dL 70-110 CREATININE (test code = 2160-0) 0.99 mg/dL 0.50-1.04 TOTAL BILI (test code = 5892036934) 0.6 mg/dL 0.1-1.1 CALCIUM (test code = 6501191944) 9.5 mg/dL 8.6-10.6 T PROTEIN (test code = 9743800537) 8.1 g/dL 6.3-8.2 ALBUMIN (test code = 4576246288) 4.5 g/dL 3.5-5.0 ALK PHOS (test code = 9333113560) 82 U/L 34-122 ALTv (test code = 1742-6) 27 U/L 5-35 AST(SGOT) (test code = 7233399299) 31 U/L 13-40 eGFR (test code = 92080-3) 72.7 mL/min/1.73m2 CKD-EPI eGFR (2020). Assuming creatinine has been stable day-to-day for at least three months, the eGFR indicates Category G2 (60 - 89 mL/min/1.73 m2) Lab Interpretation (test code = 44519-1) Abnormal [facility] with [id number] 19:15:41* Test Item Value Reference Range Interpretation Comme nts WBC (test code = 6690-2) 12.69 4.30-11.10 H RBC (test code = 789-8) 4.17 3.93-5.25 HGB (test code = 718-7) 13.8 g/dL 11.6-15.0 HCT (test code = 4544-3) 40.7 % 35.7-45.2 MCV (test code = 787-2) 97.6 fL 80.6-95.5 H MCH (test code = 785-6) 33.1 pg 25.9-32.8 H MCHC (test code = 786-4) 33.9 g/dL 31.6-35.1 RDW-SD (test code = 26305-1) 45.6 fL 39.0-49.9 RDW-CV (test code = 788-0) 12.8 % 12.0-15.5 PLT (test code = 777-3) 301 166-358 MPV (test code = 44851-1) 10.5 fL 9.5-12.9 NRBC/100 WBC (test code = 9688629451) 0.0 0.0-10.0 NRBC x10^3 (test code = 8720912752) See_Comment [Automated messa ge] The system which generated this result transmitted reference range: 10*3/?L. The reference range was not used to interpret this result as normal/abnormal. GRAN MAT (NEUT) % (test code = 770-8) 72.8 % IMM GRAN % (test code = 8435708289) 0.90 % LYMPH % (test code = 736-9) 18.4 % MONO % (test code = 5905-5) 7.1 % EOS % (test code = 713-8) 0.6 % BASO % (test code = 706-2) 0.2 % GRAN MAT x10^3(ANC) (test code = 5598724472) 9.24 10*3/uL 1.88-7.09 H IMM GRAN x10^3 (test code = 0464725636) 0.11 10*3/uL 0.00-0.06 H LYMPH x10^3 (test code = 731-0) 2.33 10*3/uL 1.32-3.29 MONO x10^3 (test code = 742-7) 0.90 10*3/uL 0.33-0.92 EOS x10^3 (test code = 711-2) 0.08 10*3/uL 0.03-0.39 BASO x10^3 (test code = 704-7) 0.03 10*3/uL 0.01-0.07 Lab Interpretation (test code = 83339-2) Abnormal [facility], THIRD [id number] 06:01:13* Test Item Value Reference Range Interpretation Comme nts TSH, THIRD GENERATION (test code = 2821) 3.390 UIU/ML 0.400-4.100 COMPREHENSIVE METABOLIC [id number] 05:29:13* Test Item Value Reference Range Interpretation Comme nts GLUCOSE (test code = 2217) 102 MG/DL 70-99 H BUN (test code = 2208) 13 MG/DL 6-20 CREATININE (test code = 2214) 1.30 MG/DL 0.60-1.30 eGFR (2020 CKD-EPI) (test code = 49637) 53 ML/MIN/1.73 >60 L The NKF-ASN Taskforc e recommends use of Cystatin C to confirm eGFR inadults at risk for CKD. [facility] offers eGFR with Cystatin C-Creatinineusing the 2020 CKD-EPI eGFR_creat-cystat equation (order code 3057) toincrease the accuracy of estimated GFR. For more information, contactyour accounting supervisor or see announcement [email or web address] CALC BUN/CREAT (test code = 223) 10 RATIO 6-28 SODIUM (test code = 223) 138 MEQ/L 133-146 POTASSIUM (test code = 2228) 4.6 MEQ/L 3.5-5.4 CHLORIDE (test code = 2215) 103 MEQ/L 95-107 CARBON DIOXIDE (test code = 2206) 21 MEQ/L 19-31 CALCIUM (test code = 2209) 8.9 MG/DL 8.5-10.5 PROTEIN, TOTAL (test code = 222) 7.2 G/DL 6.1-8.3 ALBUMIN (test code = 220) 4.5 G/DL 3.5-5.2 CALC GLOBULIN (test code = 2240) 2.7 G/DL 1.9-3.7 CALC A/G RATIO (test code = 2234) 1.7 RATIO 1.0-2.6 BILIRUBIN, TOTAL (test code = 2206) <0.2 MG/DL <=1.2 ALKALINE PHOSPHATASE (test code = 2203) 83 U/L 40-113 AST (test code = 2218) 20 U/L 9-40 ALT (test code = 2219) 17 U/L 5-40 UNLESS OTHERWISE INDICATED, ALL TESTING PERFORMED AT [facility] [address] [place] [address] PERIPHERAL EQUIPMENT OPERATOR: DERRICK FISHER M.D. CLIA NUMBER [id number] [facility]. [id number] TSH, THIRD [id number] 00:00:00* Test Item Value Reference Range Interpretation Comme nts TSH, THIRD GENERATION (test code = 2821) 3.390 UIU/ML Juan SantanaCOMPREHENSIVE METABOLIC [id number] 00:00:00* Test Item Value Reference Range Interpretation Comme nts GLUCOSE (test code = 7) 102 MG/DL BUN (test code = 8) 13 MG/DL CREATININE (test code = 4) 1.30 MG/DL eGFR (2020 CKD-EPI) (test co de = 60804) 53 ML/MIN/1.73 CALC BUN/CREAT (test code = 2234) 10 RATIO SODIUM (test code = 223) 138 MEQ/L POTASSIUM (test code = 2228) 4.6 MEQ/L CHLORIDE (test code = 2215) 103 MEQ/L CARBON DIOXIDE (test code = 2206) 21 MEQ/L CALCIUM (test code = 2209) 8.9 MG/DL PROTEIN, TOTAL (test code = 2229) 7.2 G/DL ALBUMIN (test code = 2201) 4.5 G/DL CALC GLOBULIN (test code = 2240) 2.7 G/DL CALC A/G RATIO (test code = 2234) 1.7 RATIO BILIRUBIN, TOTAL (test code = 2207) <0.2 MG/DL ALKALINE PHOSPHATASE (test code = 2204) 83 U/L AST (test code = 2218) 20 U/L ALT (test code = 2219) 17 U/L Juan Hilary Jovanny, THIRD [id number] 00:00:00* Test Item Value Reference Range Interpretation Comme nts TSH, THIRD GENERATION (test code = 2821) 3.390 UIU/ML Juan Richard MaxCOMPREHENSIVE METABOLIC [id number] 00:00:00* Test Item Value Reference Range Interpretation Comme nts GLUCOSE (test code = 2217) 102 MG/DL BUN (test code = 2208) 13 MG/DL CREATININE (test code = 2214) 1.30 MG/DL eGFR (2020 CKD-EPI) (test co de = 98365) 53 ML/MIN/1.73 CALC BUN/CREAT (test code = 2235) 10 RATIO SODIUM (test code = 2231) 138 MEQ/L POTASSIUM (test code = 2228) 4.6 MEQ/L CHLORIDE (test code = 2215) 103 MEQ/L CARBON DIOXIDE (test code = 2206) 21 MEQ/L CALCIUM (test code = 2209) 8.9 MG/DL PROTEIN, TOTAL (test code = 2229) 7.2 G/DL ALBUMIN (test code = 2201) 4.5 G/DL CALC GLOBULIN (test code = 2240) 2.7 G/DL CALC A/G RATIO (test code = 2234) 1.7 RATIO BILIRUBIN, TOTAL (test code = 2207) <0.2 MG/DL ALKALINE PHOSPHATASE (test code = 2204) 83 U/L AST (test code = 2218) 20 U/L ALT (test code = 2219) 17 U/L Juan SantanaPAUL, THIRD [id number] 00:00:00* Test Item Value Reference Range Interpretation Comme nts TSH, THIRD GENERATION (test code = 2821) 3.390 UIU/ML Juan SantanaCOMPREHENSIVE METABOLIC [id number] 00:00:00* Test Item Value Reference Range Interpretation Comme nts GLUCOSE (test code = 2217) 102 MG/DL BUN (test code = 2208) 13 MG/DL CREATININE (test code = 2214) 1.30 MG/DL eGFR (2020 CKD-EPI) (test co de = 39666) 53 ML/MIN/1.73 CALC BUN/CREAT (test code = 2235) 10 RATIO SODIUM (test code = 2231) 138 MEQ/L POTASSIUM (test code = 2228) 4.6 MEQ/L CHLORIDE (test code = 2215) 103 MEQ/L CARBON DIOXIDE (test code = 2206) 21 MEQ/L CALCIUM (test code = 2209) 8.9 MG/DL PROTEIN, TOTAL (test code = 2229) 7.2 G/DL ALBUMIN (test code = 2201) 4.5 G/DL CALC GLOBULIN (test code = 2240) 2.7 G/DL CALC A/G RATIO (test code = 2234) 1.7 RATIO BILIRUBIN, TOTAL (test code = 2207) <0.2 MG/DL ALKALINE PHOSPHATASE (test code = 2204) 83 U/L AST (test code = 2218) 20 U/L ALT (test code = 2219) 17 U/L DINAH [id number] 00:00:00* Test Item Value Reference Range Interpretation Comme nts TSH, THIRD GENERATION (test code = 2821) 3.390 UIU/ML Juan SantanaCOMPREHENSIVE METABOLIC [id number] 00:00:00* Test Item Value Reference Range Interpretation Comme nts GLUCOSE (test code = 2217) 102 MG/DL BUN (test code = 2208) 13 MG/DL CREATININE (test code = 2214) 1.30 MG/DL eGFR (2020 CKD-EPI) (test co de = 19017) 53 ML/MIN/1.73 CALC BUN/CREAT (test code = 2235) 10 RATIO SODIUM (test code = 2231) 138 MEQ/L POTASSIUM (test code = 2228) 4.6 MEQ/L CHLORIDE (test code = 2215) 103 MEQ/L CARBON DIOXIDE (test code = 2206) 21 MEQ/L CALCIUM (test code = 2209) 8.9 MG/DL PROTEIN, TOTAL (test code = 2229) 7.2 G/DL ALBUMIN (test code = 2201) 4.5 G/DL CALC GLOBULIN (test code = 2240) 2.7 G/DL CALC A/G RATIO (test code = 2234) 1.7 RATIO BILIRUBIN, TOTAL (test code = 2207) <0.2 MG/DL ALKALINE PHOSPHATASE (test code = 2204) 83 U/L AST (test code = 2218) 20 U/L ALT (test code = 2219) 17 U/L Juan Petty, THIRD [id number] 00:00:00* Test Item Value Reference Range Interpretation Comme nts TSH, THIRD GENERATION (test code = 2821) 3.390 UIU/ML Juan SantanaCOMPREHENSIVE METABOLIC [id number] 00:00:00* Test Item Value Reference Range Interpretation Comme nts GLUCOSE (test code = 2217) 102 MG/DL BUN (test code = 2208) 13 MG/DL CREATININE (test code = 2214) 1.30 MG/DL eGFR (2020 CKD-EPI) (test co de = 07761) 53 ML/MIN/1.73 CALC BUN/CREAT (test code = 2235) 10 RATIO SODIUM (test code = 2231) 138 MEQ/L POTASSIUM (test code = 2228) 4.6 MEQ/L CHLORIDE (test code = 2215) 103 MEQ/L CARBON DIOXIDE (test code = 2206) 21 MEQ/L CALCIUM (test code = 2209) 8.9 MG/DL PROTEIN, TOTAL (test code = 2229) 7.2 G/DL ALBUMIN (test code = 2201) 4.5 G/DL CALC GLOBULIN (test code = 2240) 2.7 G/DL CALC A/G RATIO (test code = 2234) 1.7 RATIO BILIRUBIN, TOTAL (test code = 2207) <0.2 MG/DL ALKALINE PHOSPHATASE (test code = 2204) 83 U/L AST (test code = 2218) 20 U/L ALT (test code = 2219) 17 U/L Juan BabcockTEVIN urinalysis dipstick manually [id number] 17:51:10* Test Item Value Reference Range Interpretation Comme nts Color, UA (test code = 1076) Yellow Clarity, UA (test code = 7820121) Slightly Cloudy Glucose, UA (test code = 5033550) Negative Negative Bilirubin, UA (test code = 2579906) Negative Negative Ketones, Urine (test code = 19543-1) Negative Negative, Trace Spec Grav, UA (test code = 090722988) 1.010 Blood, UA (test code = 476659721) Trace pH, UA (test code = 3579251) 5.5 5.0-8.5 Protein, UA (test code = 0486635) 30(+1) mg/dL Negative, Trace, 200(+2)mg/dL, 15/mg/dL A UROBILINOGEN, POC (test code = 12276384) 0.2 Nitrite, UA (test code = 1406574) Negative Negative, Trace Leukocytes, UA (test code = 2503421) Negative Negative, Trace Lab Interpretation (test code = 85515-6) Abnormal [facility], THIRD [id number] 06:53:21* Test Item Value Reference Range Interpretation Comme nts TSH, THIRD GENERATION (test code = 2821) 5.680 UIU/ML 0.400-4.100 H UNLESS OTHERWISE INDICATED, ALL TESTING PERFORMED AT [facility] [address] [place] [address] PERIPHERAL EQUIPMENT OPERATOR: DERRICK FISHER M.D. CLIA NUMBER [id number] [facility]. [id number] COMPREHENSIVE METABOLIC [id number] 06:49:25* Test Item Value Reference Range Interpretation Comme nts GLUCOSE (test code = 2217) 95 MG/DL 70-99 BUN (test code = 2208) 15 MG/DL 6-20 CREATININE (test code = 2214) 1.22 MG/DL 0.60-1.30 eGFR (2020 CKD-EPI) (test code = 11713) 57 ML/MIN/1.73 >60 L The NKF-ASN Taskforce recommends use of Cystatin C to confirm eGFR inadults at risk for CKD. [facility] offers eGFR with Cystatin C-Creatinineusing the 2020 CKD-EPI eGFR_creat-cystat equation (order code 3057) toincrease the accuracy of estimated GFR. For more information, contactyour accounting supervisor or see announcement [email or web address] CALC BUN/CREAT (test code = 2234) 12 RATIO 6-28 SODIUM (test code = 2230) 138 MEQ/L 133-146 POTASSIUM (test code = 2227) 4.5 MEQ/L 3.5-5.4 CHLORIDE (test code = 2214) 102 MEQ/L 95-107 CARBON DIOXIDE (test code = 2205) 21 MEQ/L 19-31 CALCIUM (test code = 2208) 9.4 MG/DL 8.5-10.5 PROTEIN, TOTAL (test code = 2228) 7.7 G/DL 6.1-8.3 ALBUMIN (test code = 2200) 4.8 G/DL 3.5-5.2 CALC GLOBULIN (test code = 2240) 2.9 G/DL 1.9-3.7 CALC A/G RATIO (test code = 2233) 1.7 RATIO 1.0-2.6 BILIRUBIN, TOTAL (test code = 2206) 0.6 MG/DL <=1.2 ALKALINE PHOSPHATASE (test code = 2203) 98 U/L 40-113 AST (test code = 221) 20 U/L 9-40 ALT (test code = 221) 16 U/L 5-40 LIPID [id number] 06:49:25* Test Item Value Reference Range Interpretation Comme nts CHOLESTEROL (test code = 221) 264 MG/DL <200 H TRIGLYCERIDES (test code [...] SPECIMENS. FOR MOREINFORMATION, SEE CLIENT ANNOUNCEMENT AT [email or web address] [email or web address] RATIO LDL/HDL (test code = 223) 2.97 RATIO <3.22 COMPREHENSIVE METABOLIC [id number] 00:00:00* Test Item Value Reference Range Interpretation Comme nts GLUCOSE (test code = 2217) 95 MG/DL BUN (test code = 2208) 15 MG/DL CREATININE (test code = 2214) 1.22 MG/DL eGFR (2020 CKD-EPI) (test co de = 53681) 57 ML/MIN/1.73 CALC BUN/CREAT (test code = 2235) 12 RATIO SODIUM (test code = 2231) 138 MEQ/L POTASSIUM (test code = 2228) 4.5 MEQ/L CHLORIDE (test code = 2215) 102 MEQ/L CARBON DIOXIDE (test code = 2206) 21 MEQ/L CALCIUM (test code = 2209) 9.4 MG/DL PROTEIN, TOTAL (test code = 2229) 7.7 G/DL ALBUMIN (test code = 2201) 4.8 G/DL CALC GLOBULIN (test code = 2240) 2.9 G/DL CALC A/G RATIO (test code = 2234) 1.7 RATIO BILIRUBIN, TOTAL (test code = 2207) 0.6 MG/DL ALKALINE PHOSPHATASE (test code = 2204) 98 U/L AST (test code = 2218) 20 U/L ALT (test code = 2219) 16 U/L Juan SantanaLIPID [id number] 00:00:00* Test Item Value Reference Range Interpretation Comme nts CHOLESTEROL (test code = 2210) 264 MG/DL TRIGLYCERIDES (test code = 2232) 156 MG/DL HDL CHOLESTEROL (test code = 2220) 59 MG/DL CALC LDL CHOL (test code = 2237) 175 MG/DL RISK RATIO LDL/HDL (test cod e = 2238) 2.97 RATIO Juan SantanaREYNALDOH, THIRD [id number] 00:00:00* Test Item Value Reference Range Interpretation Comme nts TSH, THIRD GENERATION (test code = 2821) 5.680 UIU/ML Juan SantanaCOMPREHENSIVE METABOLIC [id number] 00:00:00* Test Item Value Reference Range Interpretation Comme nts GLUCOSE (test code = 2217) 95 MG/DL BUN (test code = 2208) 15 MG/DL CREATININE (test code = 2214) 1.22 MG/DL eGFR (2020 CKD-EPI) (test co de = 64144) 57 ML/MIN/1.73 CALC BUN/CREAT (test code = 2235) 12 RATIO SODIUM (test code = 2231) 138 MEQ/L POTASSIUM (test code = 2228) 4.5 MEQ/L CHLORIDE (test code = 2215) 102 MEQ/L CARBON DIOXIDE (test code = 2206) 21 MEQ/L CALCIUM (test code = 2209) 9.4 MG/DL PROTEIN, TOTAL (test code = 2229) 7.7 G/DL ALBUMIN (test code = 2201) 4.8 G/DL CALC GLOBULIN (test code = 2240) 2.9 G/DL CALC A/G RATIO (test code = 2234) 1.7 RATIO BILIRUBIN, TOTAL (test code = 2207) 0.6 MG/DL ALKALINE PHOSPHATASE (test code = 2204) 98 U/L AST (test code = 2218) 20 U/L ALT (test code = 2219) 16 U/L Juan SantanaLIPID [id number] 00:00:00* Test Item Value Reference Range Interpretation Comme nts CHOLESTEROL (test code = 2210) 264 MG/DL TRIGLYCERIDES (test code = 2232) 156 MG/DL HDL CHOLESTEROL (test code = 2220) 59 MG/DL CALC LDL CHOL (test code = 2237) 175 MG/DL RISK RATIO LDL/HDL (test cod e = 2238) 2.97 RATIO Juan SantanaTSH, THIRD [id number] 00:00:00* Test Item Value Reference Range Interpretation Comme nts TSH, THIRD GENERATION (test code = 2821) 5.680 UIU/ML Juan Richard MaxCOMPREHENSIVE METABOLIC [id number] 00:00:00* Test Item Value Reference Range Interpretation Comme nts GLUCOSE (test code = 2217) 95 MG/DL BUN (test code = 2208) 15 MG/DL CREATININE (test code = 2214) 1.22 MG/DL eGFR (2020 CKD-EPI) (test co de = 83440) 57 ML/MIN/1.73 CALC BUN/CREAT (test code = 2235) 12 RATIO SODIUM (test code = 2231) 138 MEQ/L POTASSIUM (test code = 2228) 4.5 MEQ/L CHLORIDE (test code = 2215) 102 MEQ/L CARBON DIOXIDE (test code = 2206) 21 MEQ/L CALCIUM (test code = 2209) 9.4 MG/DL PROTEIN, TOTAL (test code = 2229) 7.7 G/DL ALBUMIN (test code = 2201) 4.8 G/DL CALC GLOBULIN (test code = 2240) 2.9 G/DL CALC A/G RATIO (test code = 2234) 1.7 RATIO BILIRUBIN, TOTAL (test code = 2207) 0.6 MG/DL ALKALINE PHOSPHATASE (test code = 2204) 98 U/L AST (test code = 2218) 20 U/L ALT (test code = 2219) 16 U/L Juan SantanaLIPID [id number] 00:00:00* Test Item Value Reference Range Interpretation Comme nts CHOLESTEROL (test code = 2210) 264 MG/DL TRIGLYCERIDES (test code = 2232) 156 MG/DL HDL CHOLESTEROL (test code = 2220) 59 MG/DL CALC LDL CHOL (test code = 2237) 175 MG/DL RISK RATIO LDL/HDL (test cod e = 2238) 2.97 RATIO Juan SantanaTSH, THIRD [id number] 00:00:00* Test Item Value Reference Range Interpretation Comme nts TSH, THIRD GENERATION (test code = 2821) 5.680 UIU/ML Juan SantanaCOMPREHENSIVE METABOLIC [id number] 00:00:00* Test Item Value Reference Range Interpretation Comme nts GLUCOSE (test code = 2217) 95 MG/DL BUN (test code = 2208) 15 MG/DL CREATININE (test code = 2214) 1.22 MG/DL eGFR (2020 CKD-EPI) (test co de = 95501) 57 ML/MIN/1.73 CALC BUN/CREAT (test code = 2235) 12 RATIO SODIUM (test code = 2231) 138 MEQ/L POTASSIUM (test code = 2228) 4.5 MEQ/L CHLORIDE (test code = 2215) 102 MEQ/L CARBON DIOXIDE (test code = 6) 21 MEQ/L CALCIUM (test code = 2209) 9.4 MG/DL PROTEIN, TOTAL (test code = 2229) 7.7 G/DL ALBUMIN (test code = 2201) 4.8 G/DL CALC GLOBULIN (test code = 2240) 2.9 G/DL CALC A/G RATIO (test code = 2234) 1.7 RATIO BILIRUBIN, TOTAL (test code = 2207) 0.6 MG/DL ALKALINE PHOSPHATASE (test code = 2204) 98 U/L AST (test code = 2218) 20 U/L ALT (test code = 2219) 16 U/L Juan SantanaLIPID [id number] 00:00:00* Test Item Value Reference Range Interpretation Comme nts CHOLESTEROL (test code = 2210) 264 MG/DL TRIGLYCERIDES (test code = 2232) 156 MG/DL HDL CHOLESTEROL (test code = 2220) 59 MG/DL CALC LDL CHOL (test code = 2237) 175 MG/DL RISK RATIO LDL/HDL (test cod e = 2238) 2.97 RATIO Juan SantanaTSH, THIRD [id number] 00:00:00* Test Item Value Reference Range Interpretation Comme nts TSH, THIRD GENERATION (test code = 2821) 5.680 UIU/ML Juan SantanaCOMPREHENSIVE METABOLIC [id number] 00:00:00* Test Item Value Reference Range Interpretation Comme nts GLUCOSE (test code = 2217) 95 MG/DL BUN (test code = 2208) 15 MG/DL CREATININE (test code = 2214) 1.22 MG/DL eGFR (2020 CKD-EPI) (test co de = 37114) 57 ML/MIN/1.73 CALC BUN/CREAT (test code = 2235) 12 RATIO SODIUM (test code = 2231) 138 MEQ/L POTASSIUM (test code = 2228) 4.5 MEQ/L CHLORIDE (test code = 2215) 102 MEQ/L CARBON DIOXIDE (test code = 2206) 21 MEQ/L CALCIUM (test code = 2209) 9.4 MG/DL PROTEIN, TOTAL (test code = 2229) 7.7 G/DL ALBUMIN (test code = 2201) 4.8 G/DL CALC GLOBULIN (test code = 2240) 2.9 G/DL CALC A/G RATIO (test code = 2234) 1.7 RATIO BILIRUBIN, TOTAL (test code = 2207) 0.6 MG/DL ALKALINE PHOSPHATASE (test code = 2204) 98 U/L AST (test code = 2218) 20 U/L ALT (test code = 2219) 16 U/L Juan SantanaLIPID [id number] 00:00:00* Test Item Value Reference Range Interpretation Comme nts CHOLESTEROL (test code = 2210) 264 MG/DL TRIGLYCERIDES (test code = 2232) 156 MG/DL HDL CHOLESTEROL (test code = 2220) 59 MG/DL CALC LDL CHOL (test code = 2237) 175 MG/DL RISK RATIO LDL/HDL (test cod e = 2238) 2.97 RATIO Juan Petty, THIRD [id number] 00:00:00* Test Item Value Reference Range Interpretation Comme nts TSH, THIRD GENERATION (test code = 2821) 5.680 UIU/ML Juan Branch, [id number] 15:30:18SPECIMEN NUMBER: [id number] CULTURE, URINE SPECIMEN NUMBER: [id number] SPECIMEN COMMENT: URINE SOURCE: URINE REPORT STATUS: [...] TESTING PERFORMED AT [facility] [address] [place] [address] PERIPHERAL EQUIPMENT OPERATOR: DERRICK FISHER M.D. CLIA NUMBER [id number] [facility] [place]. [id number], [id number] 00:00:00* Test Item Value Reference Range Interpretation Comme nts CULTURE, URINE (test code = 33465) SPECIMEN NUMBER: [id number] Juan SantanaCULTJESUS, [id number] 00:00:00* Test Item Value Reference Range Interpretation Comme nts CULTURE, URINE (test code = 52748) SPECIMEN NUMBER: [id number] Juan DobbsLTJESUS, [id number] 00:00:00* Test Item Value Reference Range Interpretation Comme nts CULTURE, URINE (test code = 35637) SPECIMEN NUMBER: [id number] Juan F AustinCULTURE, [id number] 00:00:00* Test Item Value Reference Range Interpretation Comme nts CULTURE, URINE (test code = 56174) SPECIMEN NUMBER: [id number] Juan SantanaCULTURE, [id number] 00:00:00* Test Item Value Reference Range Interpretation Comme nts CULTURE, URINE (test code = 86583) SPECIMEN NUMBER: [id number] Juan SantanaCOMPREHENSIVE METABOLIC [id number] 06:56:24* Test Item Value Reference Range Interpretation Comme nts GLUCOSE (test code = 2216) 101 MG/DL 70-99 H BUN (test code = 2207) 19 MG/DL 6-20 CREATININE (test code = 221) 1.28 MG/DL 0.60-1.30 eGFR (2020 CKD-EPI) (test code = 37422) 54 ML/MIN/1.73 >60 L The NKF-ASN Taskforce recommends use of Cystatin C to confirm eGFR inadults at risk for CKD. [facility] offers eGFR with Cystatin C-Creatinineusing the 2020 CKD-EPI eGFR_creat-cystat equation (order code 3057) toincrease the accuracy of estimated GFR. For more information, contactur accounting supervisor or see announcement [email or web address] CALC BUN/CREAT (test code = 2234) 15 RATIO 6-28 SODIUM (test code = 2230) 141 MEQ/L 133-146 POTASSIUM (test code = 2228) 4.5 MEQ/L 3.5-5.4 CHLORIDE (test code = 2215) 102 MEQ/L 95-107 CARBON DIOXIDE (test code = 2206) 24 MEQ/L 19-31 CALCIUM (test code = 2209) 10.2 MG/DL 8.5-10.5 PROTEIN, TOTAL (test code = 222) 8.2 G/DL 6.1-8.3 ALBUMIN (test code = [...] normal/abnormal. ALKALINE PHOSPHATASE (test code = 2204) 109 U/L 40-113 AST (test code = 2218) 18 U/L 9-40 ALT (test code = 2219) 16 U/L 5-40 LIPID [id number] 06:56:24* Test Item Value Reference Range Interpretation Comme nts CHOLESTEROL (test code = 2210) 285 MG/DL <200 H TRIGLYCERIDES (test code = 2232) 245 MG/DL <150 H HDL CHOLESTEROL (test code = 2220) 48 MG/DL >39 CALC LDL CHOL (test code = 2237) 192 MG/DL <100 H NOTE: CALCULATED LDL IS BASED ON LESLY-GRECO METHOD WHICHINCLUDES ADJUSTABLE TRIGLYCERIDE:VLDL CHOLESTEROL RATIO.THIS FACTOR VARIES BY MEASURED TRIGLYCERIDE AND NON-HDLCHOLESTEROL CONCENTRATIONS WITH INCREASED CALCULATED LDL SEENIN HIGHER TRIGLYCERIDE OR LOWER NON-HDL SPECIMENS. FOR MOREINFORMATION, SEE CLIENT ANNOUNCEMENT AT [email or web address] RISK RATIO LDL/HDL (test code = 2238) 4.00 RATIO <3.22 H UNLESS OTHERW ISE INDICATED, ALL TESTING PERFORMED AT [facility] [address] [place] [address] PERIPHERAL EQUIPMENT OPERATOR: DERRICK FISHER M.D. CLIA NUMBER [id number] [facility] [place]. [id number] TSH, THIRD [id number] 06:30:05* Test Item Value Reference Range Interpretation Comme nts TSH, THIRD GENERATION (test code = 2821) 3.020 UIU/ML 0.400-4.100 ALBUMIN/CREATININE RATIO, URINE, [id number] 05:34:14* Test Item Value Reference Range Interpretation Comme nts CREATININE, URINE, CONC. (test code = 2072) 186.6 MG/DL NOT ESTAB ALBUMIN, URINE, RANDOM (test code = 71461) 47.2 MG/DL NOT ESTAB CALC ALBUMIN/CREAT, RND (test code = 26219) 253 MG/G <30 H Note: Albumin/Creatinine ratio reference interval reflects ADA and NKF guidelines. HEMOGLOBIN [id number] 05:00:36* Test Item Value Reference Range Interpretation Comme nts HEMOGLOBIN A1c (test code = 04997) 5.8 % 4.2-5.6 H [employer] GUIDELINES FOR HGB A1C: [...] ETC.). CONSIDER ALTERNATE TESTING OR LABORATORY CONSULTATION. ALBUMIN/CREATININE RATIO, RANDOM [id number] 00:00:00* Test Item Value Reference Range Interpretation Comme nts CREATININE, URINE, CONC. (te st code = 2072) 186.6 MG/DL ALBUMIN, URINE, RANDOM (test code = 92016) 47.2 MG/DL CALC ALBUMIN/CREAT, RND (cristhian t code = 58332) 253 MG/G Juan SantanaTSH, THIRD [id number] 00:00:00* Test Item Value Reference Range Interpretation Comme [facility] TSH, THIRD GENERATION (test code = 2821) 3.020 UIU/ML Juan SantanaHEMOGLOBIN [id number] 00:00:00* Test Item Value Reference Range Interpretation Comme [facility] HEMOGLOBIN A1c (test code = 72621) 5.8 % Juan SantanaLIPID [id number] 00:00:00* Test Item Value Reference Range Interpretation Comme nts CHOLESTEROL (test code = 2210) 285 MG/DL TRIGLYCERIDES (test code = 2232) 245 MG/DL HDL CHOLESTEROL (test code = 2220) 48 MG/DL CALC LDL CHOL (test code = 2237) 192 MG/DL RISK RATIO LDL/HDL (test cod e = 2238) 4.00 RATIO Juan SantanaCOMPREHENSIVE METABOLIC [id number] 00:00:00* Test Item Value Reference Range Interpretation Comme nts GLUCOSE (test code = 2217) 101 MG/DL BUN (test code = 2208) 19 MG/DL CREATININE (test code = 2214) 1.28 MG/DL eGFR (2020 CKD-EPI) (test co de = 51721) 54 ML/MIN/1.73 CALC BUN/CREAT (test code = 2235) 15 RATIO SODIUM (test code = 2231) 141 MEQ/L POTASSIUM (test code = 2228) 4.5 MEQ/L CHLORIDE (test code = 2215) 102 MEQ/L CARBON DIOXIDE (test code = 2206) 24 MEQ/L CALCIUM (test code = 2209) 10.2 MG/DL PROTEIN, TOTAL (test code = 2229) 8.2 G/DL ALBUMIN (test code = 220) 4.9 G/DL CALC GLOBULIN (test code = 2240) 3.3 G/DL CALC A/G RATIO (test code = 2234) 1.5 RATIO BILIRUBIN, TOTAL (test code = 2207) 0.5 MG/DL ALKALINE PHOSPHATASE (test code = 220) 109 U/L AST (test code = 221) 18 U/L ALT (test code = 2219) 16 U/L Juan SantanaALBUMIN/CREATININE RATIO, RANDOM [id number] 00:00:00* Test Item Value Reference Range Interpretation Comme nts CREATININE, URINE, CONC. (te st code = 2072) 186.6 MG/DL ALBUMIN, URINE, RANDOM (test code = 40733) 47.2 MG/DL CALC ALBUMIN/CREAT, RND (cristhian t code = 85480) 253 MG/G Juan SantanaTSH, THIRD [id number] 00:00:00* Test Item Value Reference Range Interpretation Comme nts TSH, THIRD GENERATION (test code = 2821) 3.020 UIU/ML Juan SantanaHEMOGLOBIN [id number] 00:00:00* Test Item Value Reference Range Interpretation Comme nts HEMOGLOBIN A1c (test code = 71235) 5.8 % Juan SantanaLIPID [id number] 00:00:00* Test Item Value Reference Range Interpretation Comme nts CHOLESTEROL (test code = 2210) 285 MG/DL TRIGLYCERIDES (test code = 2232) 245 MG/DL HDL CHOLESTEROL (test code = 2220) 48 MG/DL CALC LDL CHOL (test code = 2237) 192 MG/DL RISK RATIO LDL/HDL (test cod e = 2238) 4.00 RATIO Juan SantanaCOMPREHENSIVE METABOLIC [id number] 00:00:00* Test Item Value Reference Range Interpretation Comme nts GLUCOSE (test code = 7) 101 MG/DL BUN (test code = 2208) 19 MG/DL CREATININE (test code = 2214) 1.28 MG/DL eGFR (2020 CKD-EPI) (test co de = 60569) 54 ML/MIN/1.73 CALC BUN/CREAT (test code = 2235) 15 RATIO SODIUM (test code = 2231) 141 MEQ/L POTASSIUM (test code = 2228) 4.5 MEQ/L CHLORIDE (test code = 2215) 102 MEQ/L CARBON DIOXIDE (test code = 2206) 24 MEQ/L CALCIUM (test code = 2209) 10.2 MG/DL PROTEIN, TOTAL (test code = 222) 8.2 G/DL ALBUMIN (test code = 2200) 4.9 G/DL CALC GLOBULIN (test code = 2240) 3.3 G/DL CALC A/G RATIO (test code = 2234) 1.5 RATIO BILIRUBIN, TOTAL (test code = 7) 0.5 MG/DL ALKALINE PHOSPHATASE (test code = 2203) 109 U/L AST (test code = 221) 18 U/L ALT (test code = 2219) 16 U/L Juan SantanaALBUMIN/CREATININE RATIO, RANDOM [id number] 00:00:00* Test Item Value Reference Range Interpretation Comme nts CREATININE, URINE, CONC. (te st code = 2072) 186.6 MG/DL ALBUMIN, URINE, RANDOM (test code = 78879) 47.2 MG/DL CALC ALBUMIN/CREAT, RND (cristhian t code = 95871) 253 MG/G Juan SantanaTSH, THIRD [id number] 00:00:00* Test Item Value Reference Range Interpretation Comme [facility] TSH, THIRD GENERATION (test code = 2821) 3.020 UIU/ML Juan SantanaHEMOGLOBIN [id number] 00:00:00* Test Item Value Reference Range Interpretation Comme [facility] HEMOGLOBIN A1c (test code = 53797) 5.8 % Juan SantanaLIPID [id number] 00:00:00* Test Item Value Reference Range Interpretation Comme nts CHOLESTEROL (test code = 2210) 285 MG/DL TRIGLYCERIDES (test code = 2232) 245 MG/DL HDL CHOLESTEROL (test code = 2220) 48 MG/DL CALC LDL CHOL (test code = 2237) 192 MG/DL RISK RATIO LDL/HDL (test cod e = 2238) 4.00 RATIO Juan SantanaCOMPREHENSIVE METABOLIC [id number] 00:00:00* Test Item Value Reference Range Interpretation Comme nts GLUCOSE (test code = 2217) 101 MG/DL BUN (test code = 2208) 19 MG/DL CREATININE (test code = 2214) 1.28 MG/DL eGFR (2020 CKD-EPI) (test co de = 40143) 54 ML/MIN/1.73 CALC BUN/CREAT (test code = 2235) 15 RATIO SODIUM (test code = 223) 141 MEQ/L POTASSIUM (test code = 2228) 4.5 MEQ/L CHLORIDE (test code = 2215) 102 MEQ/L CARBON DIOXIDE (test code = 2206) 24 MEQ/L CALCIUM (test code = 2209) 10.2 MG/DL PROTEIN, TOTAL (test code = 2229) 8.2 G/DL ALBUMIN (test code = 2201) 4.9 G/DL CALC GLOBULIN (test code = 2240) 3.3 G/DL CALC A/G RATIO (test code = 2234) 1.5 RATIO BILIRUBIN, TOTAL (test code = 2207) 0.5 MG/DL ALKALINE PHOSPHATASE (test code = 2204) 109 U/L AST (test code = 2218) 18 U/L ALT (test code = 2219) 16 U/L Juan SantanaALBUMIN/CREATININE RATIO, RANDOM [id number] 00:00:00* Test Item Value Reference Range Interpretation Comme nts CREATININE, URINE, CONC. (te st code = 2072) 186.6 MG/DL ALBUMIN, URINE, RANDOM (test code = 76724) 47.2 MG/DL CALC ALBUMIN/CREAT, RND (cristhian t code = 83083) 253 MG/G Juan SantanaTSH, THIRD [id number] 00:00:00* Test Item Value Reference Range Interpretation Comme [facility] TSH, THIRD GENERATION (test code = 2821) 3.020 UIU/ML Juan SantanaHEMOGLOBIN [id number] 00:00:00* Test Item Value Reference Range Interpretation Comme nts HEMOGLOBIN A1c (test code = 95385) 5.8 % Juan SantanaLIPID [id number] 00:00:00* Test Item Value Reference Range Interpretation Comme nts CHOLESTEROL (test code = 2210) 285 MG/DL TRIGLYCERIDES (test code = 2232) 245 MG/DL HDL CHOLESTEROL (test code = 2220) 48 MG/DL CALC LDL CHOL (test code = 2237) 192 MG/DL RISK RATIO LDL/HDL (test cod e = 2238) 4.00 RATIO Juan SantanaCOMPREHENSIVE METABOLIC [id number] 00:00:00* Test Item Value Reference Range Interpretation Comme nts GLUCOSE (test code = 2217) 101 MG/DL BUN (test code = 2208) 19 MG/DL CREATININE (test code = 2214) 1.28 MG/DL eGFR (2020 CKD-EPI) (test co de = 08043) 54 ML/MIN/1.73 CALC BUN/CREAT (test code = 2235) 15 RATIO SODIUM (test code = 2231) 141 MEQ/L POTASSIUM (test code = 2228) 4.5 MEQ/L CHLORIDE (test code = 2215) 102 MEQ/L CARBON DIOXIDE (test code = 2206) 24 MEQ/L CALCIUM (test code = 2209) 10.2 MG/DL PROTEIN, TOTAL (test code = 2229) 8.2 G/DL ALBUMIN (test code = 2201) 4.9 G/DL CALC GLOBULIN (test code = 2240) 3.3 G/DL CALC A/G RATIO (test code = 2234) 1.5 RATIO BILIRUBIN, TOTAL (test code = 2207) 0.5 MG/DL ALKALINE PHOSPHATASE (test code = 2204) 109 U/L AST (test code = 2218) 18 U/L ALT (test code = 2219) 16 U/L Juan SantanaALBUMIN/CREATININE RATIO, RANDOM [id number] 00:00:00* Test Item Value Reference Range Interpretation Comme nts CREATININE, URINE, CONC. (te st code = 2072) 186.6 MG/DL ALBUMIN, URINE, RANDOM (test code = 11311) 47.2 MG/DL CALC ALBUMIN/CREAT, RND (cristhian t code = 02405) 253 MG/G Juan BerriosH, THIRD [id number] 00:00:00* Test Item Value Reference Range Interpretation Comme nts TSH, THIRD GENERATION (test code = 2821) 3.020 UIU/ML Juan SantanaHEMOGLOBIN [id number] 00:00:00* Test Item Value Reference Range Interpretation Comme nts HEMOGLOBIN A1c (test code = 99532) 5.8 % Juan SantanaLIPID [id number] 00:00:00* Test Item Value Reference Range Interpretation Comme nts CHOLESTEROL (test code = 2210) 285 MG/DL TRIGLYCERIDES (test code = 2232) 245 MG/DL HDL CHOLESTEROL (test code = 2220) 48 MG/DL CALC LDL CHOL (test code = 2237) 192 MG/DL RISK RATIO LDL/HDL (test cod e = 2238) 4.00 RATIO Juan SantanaCOMPREHENSIVE METABOLIC [id number] 00:00:00* Test Item Value Reference Range Interpretation Comme nts GLUCOSE (test code = 2217) 101 MG/DL BUN (test code = 2208) 19 MG/DL CREATININE (test code = 2214) 1.28 MG/DL eGFR (2020 CKD-EPI) (test co de = 31625) 54 ML/MIN/1.73 CALC BUN/CREAT (test code = 2235) 15 RATIO SODIUM (test code = 2231) 141 MEQ/L POTASSIUM (test code = 2228) 4.5 MEQ/L CHLORIDE (test code = 2215) 102 MEQ/L CARBON DIOXIDE (test code = 2206) 24 MEQ/L CALCIUM (test code = 2209) 10.2 MG/DL PROTEIN, TOTAL (test code = 2229) 8.2 G/DL ALBUMIN (test code = 2201) 4.9 G/DL CALC GLOBULIN (test code = 2240) 3.3 G/DL CALC A/G RATIO (test code = 2234) 1.5 RATIO BILIRUBIN, TOTAL (test code = 2207) 0.5 MG/DL ALKALINE PHOSPHATASE (test code = 2204) 109 U/L AST (test code = 2218) 18 U/L ALT (test code = 2219) 16 U/L Juan DobbsJESUS, [id number] 10:17:56SPECIMEN NUMBER: [id number] CULTURE, URINE SPECIMEN NUMBER: [id number] SPECIMEN COMMENT: URINE SOURCE: URINE REPORT STATUS: [...] <10,000 CFU/ML UROGENITAL CARSON PRESENT NO COMMON PATHOGENSCULTURE, [id number] 00:00:00* Test Item Value Reference Range Interpretation Comme nts CULTURE, URINE (test code = 17276) SPECIMEN NUMBER: [id number] Juan SantanaCULTURE, [id number] 00:00:00* Test Item Value Reference Range Interpretation Comme nts CULTURE, URINE (test code = 78923) SPECIMEN NUMBER: [id number] Juan DobbsLTJESUS, [id number] 00:00:00* Test Item Value Reference Range Interpretation Comme nts CULTURE, URINE (test code = 44632) SPECIMEN NUMBER: [id number] Juan SantanaCULTURE, [id number] 00:00:00* Test Item Value Reference Range Interpretation Comme nts CULTURE, URINE (test code = 56665) SPECIMEN NUMBER: [id number] Juan DobbsLTURE, [id number] 00:00:00* Test Item Value Reference Range Interpretation Comme nts CULTURE, URINE (test code = 84491) SPECIMEN NUMBER: [id number] Juan DobbsLTJESUS, [id number] 00:00:00* Test Item Value Reference Range Interpretation Comme nts CULTURE, URINE (test code = 62016) SPECIMEN NUMBER: [id number] VAGINAL PATHOGENS DNA [id number] 15:15:22* Test Item Value Reference Range Interpretation Comme nts MARLENE SPECIES (test code = 28143) NEGATIVE NEGATIVE G. VAGINALIS (test code = 85874) NEGATIVE NEGATIVE T. VAGINALIS (test code = 55126) NEGATIVE NEGATIVE UNLESS OTHERWISE INDICATED, ALL TESTING PERFORMED [facility] [address] [place] [address] PERIPHERAL EQUIPMENT OPERATOR: CECILIA CORNELL M.D. CLIA NUMBER [id number] [place]. [id number] VAGINAL PATHOGENS DNA [id number] 00:00:00* Test Item Value Reference Range Interpretation Comme nts MARLENE SPECIES (test code = 11683) NEGATIVE G. VAGINALIS (test code = 25975) NEGATIVE T. VAGINALIS (test code = 42417) NEGATIVE Juan F AustinVAGINAL PATHOGENS DNA [id number] 00:00:00* Test Item Value Reference Range Interpretation Comme nts MARLENE SPECIES (test code = 41139) NEGATIVE G. VAGINALIS (test code = 42995) NEGATIVE T. VAGINALIS (test code = 63879) NEGATIVE Juan F AustinVAGINAL PATHOGENS DNA [id number] 00:00:00* Test Item Value Reference Range Interpretation Comme nts MARLENE SPECIES (test code = 44519) NEGATIVE G. VAGINALIS (test code = 98407) NEGATIVE T. VAGINALIS (test code = 70609) NEGATIVE Juan F AustinVAGINAL PATHOGENS DNA [id number] 00:00:00* Test Item Value Reference Range Interpretation Comme nts MARLENE SPECIES (test code = 69151) NEGATIVE G. VAGINALIS (test code = 47159) NEGATIVE T. VAGINALIS (test code = 69783) NEGATIVE Juan F AustinVAGINAL PATHOGENS DNA [id number] 00:00:00* Test Item Value Reference Range Interpretation Comme nts MARLENE SPECIES (test code = 36126) NEGATIVE G. VAGINALIS (test code = 73661) NEGATIVE T. VAGINALIS (test code = 09940) NEGATIVE Juan F AustinVAGINAL PATHOGENS DNA [id number] 00:00:00* Test Item Value Reference Range Interpretation Comme nts MARLENE SPECIES (test code = 56769) NEGATIVE G. VAGINALIS (test code = 76304) NEGATIVE T. VAGINALIS (test code = 12708) NEGATIVE NOTE:2022-03-27 06:01:43* Test Item Value Reference Range Interpretation Comme nts NOTE: (test code = 998) (NOTE) IN ACCORDANCE WI FEDERAL GUIDELINES REQUIRING ALL VERBAL REQUESTS FOR LABORATORY TESTS TO BE ACCOMPANIED BY WRITTEN AUTHORIZATION WITHIN 30 DAYS OF THIS REQUEST, PLEASE SIGN BELOW AND RETURN A COPY OF THIS REPORT BY FAX TO THE LABORATORY SCANNING DEPARTMENT AT [phone]. PHYSICIAN'S SIGNATURE DATE UNLESS OTHERWISE INDICATED, ALL TESTING PERFORMED [facility] [address] [place] [address] PERIPHERAL EQUIPMENT OPERATOR: CECILIA CORNELL M.D. CLIA NUMBER [id number] [facility] [place]. [id number] TSH, THIRD [id number] 00:28:21* Test Item Value Reference Range Interpretation Comme nts TSH, THIRD GENERATION (test code = 2821) 3.200 UIU/ML 0.400-4.100 TSH, THIRD GENERATION [ADDED]2022-03-27 00:00:00* Test Item Value Reference Range Interpretation Comme nts TSH, THIRD GENERATION (test code = 2821) 3.200 UIU/ML NOTE: [ADDED]2022-03-27 00:00:00* Test Item Value Reference Range Interpretation Comme nts NOTE: (test code = 998) (NOTE) TSH, THIRD GENERATION [ADDED]2022-03-27 00:00:00* Test Item Value Reference Range Interpretation Comme nts TSH, THIRD GENERATION (test code = 2821) 3.200 UIU/ML Juan Richard AustinNOTE: [ADDED]2022-03-27 00:00:00* Test Item Value Reference Range Interpretation Comme nts NOTE: (test code = 998) (NOTE) Juan Petty THIRD GENERATION [ADDED]2022-03-27 00:00:00* Test Item Value Reference Range Interpretation Comme nts TSH, THIRD GENERATION (test code = 2821) 3.200 UIU/ML Juan Richard AustinNOTE: [ADDED]2022-03-27 00:00:00* Test Item Value Reference Range Interpretation Comme nts NOTE: (test code = 998) (NOTE) Juan Petty THIRD GENERATION [ADDED]2022-03-27 00:00:00* Test Item Value Reference Range Interpretation Comme nts TSH, THIRD GENERATION (test code = 2821) 3.200 UIU/ML Juan Richard AustinNOTE: [ADDED]2022-03-27 00:00:00* Test Item Value Reference Range Interpretation Comme nts NOTE: (test code = 998) (NOTE) Juan Petty THIRD GENERATION [ADDED]2022-03-27 00:00:00* Test Item Value Reference Range Interpretation Comme nts TSH, THIRD GENERATION (test code = 2821) 3.200 UIU/ML Juan SantanaNOTE: [ADDED]2022-03-27 00:00:00* Test Item Value Reference Range Interpretation Comme nts NOTE: (test code = 998) (NOTE) Juan BerriosH, THIRD GENERATION [ADDED]2022-03-27 00:00:00* Test Item Value Reference Range Interpretation Comme nts TSH, THIRD GENERATION (test code = 2821) 3.200 UIU/ML Juan SantanaNOTE: [ADDED]2022-03-27 00:00:00* Test Item Value Reference Range Interpretation Comme nts NOTE: (test code = 998) (NOTE) Juan SantanaCOMPREHENSIVE METABOLIC [id number] 04:40:28* Test Item Value Reference Range Interpretation Comme nts GLUCOSE (test code = 2217) 93 MG/DL 70-99 BUN (test code = 2207) 15 MG/DL 6-20 CREATININE (test code = 2214) 1.34 MG/DL 0.60-1.30 H eGFR (2020 CKD-EPI) (test code = 88479) 51 ML/MIN/1.73 >60 L The NKF-ASN Taskforce recommends use of Cystatin C to confirm eGFR inadults at risk for CKD. [facility] offers eGFR with Cystatin C-Creatinineusing the 2020 CKD-EPI eGFR_creat-cystat equation (order code 3057) toincrease the accuracy of estimated GFR. For more information, contactur accounting supervisor or see announcement [email or web address] CALC BUN/CREAT (test code = 223) 11 RATIO 6-28 SODIUM (test code = 223) 138 MEQ/L 133-146 POTASSIUM (test code = 2228) 4.6 MEQ/L 3.5-5.4 CHLORIDE (test code = 2215) 100 MEQ/L 95-107 CARBON DIOXIDE (test code = 2206) 23 MEQ/L 19-31 CALCIUM (test code = 2209) 9.8 MG/DL 8.5-10.5 PROTEIN, TOTAL (test code = 222) 7.6 G/DL 6.1-8.3 ALBUMIN (test code = 1) 4.7 G/DL 3.5-5.2 CALC GLOBULIN (test code = 2240) 2.9 G/DL 1.9-3.7 CALC A/G RATIO (test code = 2234) 1.6 RATIO 1.0-2.6 BILIRUBIN, TOTAL (test code = 2207) 0.9 MG/DL See_Comment [Automated me ssage] The system which generated this result transmitted reference range: <=1.2. The reference range was not used to interpret this result as normal/abnormal. ALKALINE PHOSPHATASE (test code = 2203) 99 U/L 40-113 AST (test code = 2218) 23 U/L 9-40 ALT (test code = 2219) 25 U/L 5-40 LIPID [id number] 04:40:28* Test Item Value Reference Range Interpretation Comme nts CHOLESTEROL (test code = 2210) 246 MG/DL <200 H TRIGLYCERIDES (test code [...] SPECIMENS. FOR MOREINFORMATION, SEE CLIENT ANNOUNCEMENT AT [email or web address] RISK RATIO LDL/HDL (test code = 2238) 3.56 RATIO <3.22 H UNLESS OTHERW ISE INDICATED, ALL TESTING PERFORMED [facility] [address] [place] [address] PERIPHERAL EQUIPMENT OPERATOR: CECILIA CORNELL M.D. CLIA NUMBER [id number] [facility] [place]. [id number] HEMOGLOBIN [id number] 03:43:43* Test Item Value Reference Range Interpretation Comme nts HEMOGLOBIN A1c (test code = 27652) 5.7 % 4.2-5.6 H CBC W/AUTO DIFF WITH [id number] 03:13:23* Test Item Value Reference Range Interpretation [...] 0.00-0.10 ABS NUCLEATED RBCS (test code = 54030) 0.00 K/UL 0.00-0.11 TSH, THIRD [id number] 06:19:29* Test Item Value Reference Range Interpretation Comme nts TSH, THIRD GENERATION (test code = 2821) 1.070 UIU/ML 0.400-4.100 COMPREHENSIVE METABOLIC [id number] 05:14:19* Test Item Value Reference Range Interpretation Comme nts GLUCOSE (test code = 2216) 96 MG/DL 70-99 BUN (test code = 2207) 17 MG/DL 6-20 CREATININE (test code = 2213) 1.20 MG/DL 0.60-1.30 eGFR (2020 CKD-EPI) (test [...] 25 U/L 9-40 ALT (test code = 2219) 21 U/L 5-40 LIPID [id number] 05:14:19* Test Item Value Reference Range Interpretation Comme nts CHOLESTEROL (test code = 0) 281 MG/DL <200 H TRIGLYCERIDES (test code = 223) 178 MG/DL <150 H HDL CHOLESTEROL (test code = 2220) 61 MG/DL >39 CALC LDL CHOL (test code = 2236) 185 MG/DL <100 H NOTE: CALCULATED LDL IS BASED ON LESLY-GRECO METHOD WHICHINCLUDES ADJUSTABLE TRIGLYCERIDE:VLDL CHOLESTEROL RATIO.THIS FACTOR VARIES BY MEASURED TRIGLYCERIDE AND NON-HDLCHOLESTEROL CONCENTRATIONS WITH INCREASED CALCULATED LDL SEENIN HIGHER TRIGLYCERIDE OR LOWER NON-HDL SPECIMENS. FOR MOREINFORMATION, SEE CLIENT ANNOUNCEMENT AT [email or web address] RISK RATIO LDL/HDL (test code = 2238) 3.03 RATIO <3.22 HEMOGLOBIN [id number] 02:42:04* Test Item Value Reference Range Interpretation Comme [facility] HEMOGLOBIN A1c (test code = 94658) 5.5 % 4.2-5.6 UNLESS OTHERWISE INDICATED, ALL TESTING PERFORMED [facility] [address] [place] [address] PERIPHERAL EQUIPMENT OPERATOR: CECILIA CORNELL M.D. CLIA NUMBER [id number] [facility] [place]. [id number] 00:00:00* Test Item Value Reference Range Interpretation Comme [facility] TSH, THIRD GENERATION (test code = 2821) 1.070 UIU/ML HEMOGLOBIN [id number] 00:00:00* Test Item Value Reference Range Interpretation Comme nts HEMOGLOBIN A1c (test code = 78425) 5.5 % LIPID [id number] 00:00:00* Test Item Value Reference Range Interpretation Comme nts CHOLESTEROL (test code = 2210) 281 MG/DL TRIGLYCERIDES (test code = 2232) 178 MG/DL HDL CHOLESTEROL (test code = 2220) 61 MG/DL CALC LDL CHOL (test code = 2237) 185 MG/DL RISK RATIO LDL/HDL (test cod e = 2238) 3.03 RATIO Juan Richard [id number] 00:00:00* Test Item Value Reference Range Interpretation Comme [facility] TSH, THIRD GENERATION (test code = 2821) 1.070 UIU/ML Juan Richard AustinHEMOGLOBIN [id number] 00:00:00* Test Item Value Reference Range Interpretation Comme nts HEMOGLOBIN A1c (test code = 40113) 5.5 % Juan Richard AustinCOMPREHENSIVE METABOLIC [id number] 00:00:00* Test Item Value Reference Range Interpretation Comme nts GLUCOSE (test code = 2217) 96 MG/DL BUN (test code = 2208) 17 MG/DL CREATININE (test code = 2214) 1.20 MG/DL eGFR (2020 CKD-EPI) (test co de = 07358) 58 ML/MIN/1.73 CALC BUN/CREAT (test code = [...] code = 2219) 21 U/L COMPREHENSIVE METABOLIC [id number] 00:00:00* Test Item Value Reference Range Interpretation Comme nts GLUCOSE (test code = 2217) 96 MG/DL BUN (test code = 2208) 17 MG/DL CREATININE (test code = 2214) 1.20 MG/DL eGFR (2020 CKD-EPI) (test co de = 82555) 58 ML/MIN/1.73 CALC BUN/CREAT (test code = [...] ALT (test code = 2219) 21 U/L Juan F AustinLIPID [id number] 00:00:00* Test Item Value Reference Range Interpretation Comme nts CHOLESTEROL (test code = 2210) 281 MG/DL TRIGLYCERIDES (test code = 2232) 178 MG/DL HDL CHOLESTEROL (test code = 2220) 61 MG/DL CALC LDL CHOL (test code = 2237) 185 MG/DL RISK RATIO LDL/HDL (test cod e = 2238) 3.03 RATIO Juan [id number] 00:00:00* Test Item Value Reference Range Interpretation Comme nts TSH, THIRD GENERATION (test code = 2821) 1.070 UIU/ML Juan SantanaHEMOGLOBIN [id number] 00:00:00* Test Item Value Reference Range Interpretation Comme nts HEMOGLOBIN A1c (test code = 67616) 5.5 % Juan SantanaCOMPREHENSIVE METABOLIC [id number] 00:00:00* Test Item Value Reference Range Interpretation Comme nts GLUCOSE (test code = 2217) 96 MG/DL BUN (test code = 2208) 17 MG/DL CREATININE (test code = 2214) 1.20 MG/DL eGFR (2020 CKD-EPI) (test co de = 05555) 58 ML/MIN/1.73 CALC BUN/CREAT (test code = [...] ALT (test code = 2219) 21 U/L Juan SantanaLIPID [id number] 00:00:00* Test Item Value Reference Range Interpretation Comme nts CHOLESTEROL (test code = 2210) 281 MG/DL TRIGLYCERIDES (test code = 2232) 178 MG/DL HDL CHOLESTEROL (test code = 2220) 61 MG/DL CALC LDL CHOL (test code = 2237) 185 MG/DL RISK RATIO LDL/HDL (test cod e = 2238) 3.03 RATIO Juan [id number] 00:00:00* Test Item Value Reference Range Interpretation Comme nts TSH, THIRD GENERATION (test code = 2821) 1.070 UIU/ML Juan SantanaHEMOGLOBIN [id number] 00:00:00* Test Item Value Reference Range Interpretation Comme nts HEMOGLOBIN A1c (test code = 52885) 5.5 % Juan SantanaCOMPREHENSIVE METABOLIC [id number] 00:00:00* Test Item Value Reference Range Interpretation Comme nts GLUCOSE (test code = 2217) 96 MG/DL BUN (test code = 2208) 17 MG/DL CREATININE (test code = 2214) 1.20 MG/DL eGFR (2020 CKD-EPI) (test co de = 59752) 58 ML/MIN/1.73 CALC BUN/CREAT (test code = [...] ALT (test code = 2219) 21 U/L Juan SantanaLIPID [id number] 00:00:00* Test Item Value Reference Range Interpretation Comme nts CHOLESTEROL (test code = 2210) 281 MG/DL TRIGLYCERIDES (test code = 2232) 178 MG/DL HDL CHOLESTEROL (test code = 2220) 61 MG/DL CALC LDL CHOL (test code = 2237) 185 MG/DL RISK RATIO LDL/HDL (test cod e = 2238) 3.03 RATIO Juan [id number] 00:00:00* Test Item Value Reference Range Interpretation Comme [facility] TSH, THIRD GENERATION (test code = 2821) 1.070 UIU/ML Juan SantanaHEMOGLOBIN [id number] 00:00:00* Test Item Value Reference Range Interpretation Comme [facility] HEMOGLOBIN A1c (test code = 72492) 5.5 % Juan SantanaLIPID [id number] 00:00:00* Test Item Value Reference Range Interpretation Comme nts CHOLESTEROL (test code = 2210) 281 MG/DL TRIGLYCERIDES (test code = 2232) 178 MG/DL HDL CHOLESTEROL (test code = 2220) 61 MG/DL CALC LDL CHOL (test code = 2237) 185 MG/DL RISK RATIO LDL/HDL (test cod e = 2238) 3.03 RATIO COMPREHENSIVE METABOLIC [id number] 00:00:00* Test Item Value Reference Range Interpretation Comme nts GLUCOSE (test code = 2217) 96 MG/DL BUN (test code = 2208) 17 MG/DL CREATININE (test code = 2214) 1.20 MG/DL eGFR (2020 CKD-EPI) (test co de = 06794) 58 ML/MIN/1.73 CALC BUN/CREAT (test code = [...] ALT (test code = 2219) 21 U/L Juan [id number] 00:00:00* Test Item Value Reference Range Interpretation Comme nts TSH, THIRD GENERATION (test code = 2821) 1.070 UIU/ML LIPID [id number] 00:00:00* Test Item Value Reference Range Interpretation Comme nts CHOLESTEROL (test code = 2210) 281 MG/DL TRIGLYCERIDES (test code = 2232) 178 MG/DL HDL CHOLESTEROL (test code = 2220) 61 MG/DL CALC LDL CHOL (test code = 2237) 185 MG/DL RISK RATIO LDL/HDL (test cod e = 2238) 3.03 RATIO Juan SantanaHEMOGLOBIN [id number] 00:00:00* Test Item Value Reference Range Interpretation Comme nts HEMOGLOBIN A1c (test code = 55859) 5.5 % COMPREHENSIVE METABOLIC [id number] 00:00:00* Test Item Value Reference Range Interpretation Comme nts GLUCOSE (test code = 2217) 96 MG/DL BUN (test code = 2208) 17 MG/DL CREATININE (test code = 2214) 1.20 MG/DL eGFR (2020 CKD-EPI) (test co de = 11866) 58 ML/MIN/1.73 CALC BUN/CREAT (test code = [...] ALT (test code = 2219) 21 U/L [id number] 00:00:00* Test Item Value Reference Range Interpretation Comme nts TSH, THIRD GENERATION (test code = 2821) 1.070 UIU/ML Juan Richard AustinHEMOGLOBIN [id number] 00:00:00* Test Item Value Reference Range Interpretation Comme nts HEMOGLOBIN A1c (test code = 03631) 5.5 % Juan SantanaLIPID [id number] 00:00:00* Test Item Value Reference Range Interpretation Comme nts CHOLESTEROL (test code = 2210) 281 MG/DL TRIGLYCERIDES (test code = 2232) 178 MG/DL HDL CHOLESTEROL (test code = 2220) 61 MG/DL CALC LDL CHOL (test code = 2237) 185 MG/DL RISK RATIO LDL/HDL (test cod e = 2238) 3.03 RATIO COMPREHENSIVE METABOLIC [id number] 00:00:00* Test Item Value Reference Range Interpretation Comme nts GLUCOSE (test code = 2217) 96 MG/DL BUN (test code = 2208) 17 MG/DL CREATININE (test code = 2214) 1.20 MG/DL eGFR (2020 CKD-EPI) (test co de = 94041) 58 ML/MIN/1.73 CALC BUN/CREAT (test code = [...] ALT (test code = 2219) 21 U/L Juan SantanaCBC W/AUTO DIFF WITH [id number] 06:15:32* Test Item Value Reference Range Interpretation [...] = 1065) 0.0 /100 WBC'S See_Comment [Automated Astley Clarkea ge] The system which generated this result [...] 0.00-0.10 ABS NUCLEATED RBCS (test code = 07729) 0.00 K/UL 0.00-0.11 ALBUMIN, URINE, [id number] 05:20:38* Test Item Value Reference Range Interpretation Comme nts ALBUMIN, URINE, RANDOM (test code = 71955) 4.6 MG/DL NOT ESTAB UNLESS OTHERWISE INDICATED, ALL TESTING PERFORMED ATCL[facility]ICAL [facility] [address] [place] [address] PERIPHERAL EQUIPMENT OPERATOR: CECILIA CORNELL M.D. CLIA NUMBER [id number] [facility] [place]. [id number] LIPID [id number] 04:45:32* Test Item Value Reference Range Interpretation [...] SPECIMENS. FOR MOREINFORMATION, SEE CLIENT ANNOUNCEMENT AT [email or web address] RISK RATIO LDL/HDL (test code = 2238) 2.54 RATIO <3.22 COMPREHENSIVE METABOLIC [id number] 04:45:32* Test Item Value Reference Range Interpretation Comme nts GLUCOSE (test code = 2217) 100 MG/DL 70-99 H BUN (test code = 2207) 16 MG/DL 6-20 CREATININE (test code = 2214) 1.15 MG/DL 0.60-1.30 eGFR (2020 CKD-EPI) (test code = 39624) 62 ML/MIN/1.73 >60 CALC BUN/CREAT (test code = 2235) 14 RATIO 6-28 SODIUM (test code = 223) 138 MEQ/L 133-146 POTASSIUM (test code = 2228) 4.2 MEQ/L 3.5-5.4 CHLORIDE (test code = 2215) 98 MEQ/L 95-107 CARBON DIOXIDE (test code = 2206) 25 MEQ/L 19-31 CALCIUM (test code = 2209) 10.0 MG/DL 8.5-10.5 PROTEIN, TOTAL (test code = 222) 8.1 G/DL 6.1-8.3 ALBUMIN (test code = 1) 4.7 G/DL 3.5-5.2 CALC GLOBULIN (test code = 2240) 3.4 G/DL 1.9-3.7 CALC A/G RATIO (test code = 2234) 1.4 RATIO 1.0-2.6 BILIRUBIN, TOTAL (test code = 2206) 0.6 MG/DL See_Comment [Automated me ssage] The system which generated this result transmitted reference range: <=1.2. The reference range was not used to interpret this result as normal/abnormal. ALKALINE PHOSPHATASE (test code = 2204) 106 U/L 40-112 AST (test code = 2218) 20 U/L 9-40 ALT (test code = 2219) 14 U/L 5-40 LIPID [id number] 00:00:00* Test Item Value Reference Range Interpretation Comme nts CHOLESTEROL (test code = 2210) 243 MG/DL TRIGLYCERIDES (test code = 2232) 195 MG/DL HDL CHOLESTEROL (test code = 2220) 59 MG/DL CALC LDL CHOL (test code = 2237) 150 MG/DL RISK RATIO LDL/HDL (test cod e = 2238) 2.54 RATIO Juan SantanaCOMPREHENSIVE METABOLIC [id number] 00:00:00* Test Item Value Reference Range Interpretation Comme nts GLUCOSE (test code = 2217) 100 MG/DL BUN (test code = 2208) 16 MG/DL CREATININE (test code = 2214) 1.15 MG/DL eGFR (2020 CKD-EPI) (test co de = 61270) 62 ML/MIN/1.73 CALC BUN/CREAT (test code = [...] (test code = 2219) 14 U/L MICROALBUMIN, [id number] 00:00:00* Test Item Value Reference Range Interpretation Comme nts ALBUMIN, URINE, RANDOM (test code = 04062) 4.6 MG/DL CBC W/AUTO [id number] 00:00:00* Test Item Value Reference Range Interpretation [...] ABS NUCLEATED RBCS (test cod e = 37982) 0.00 K/UL COMPREHENSIVE METABOLIC [id number] 00:00:00* Test Item Value Reference Range Interpretation Comme nts GLUCOSE (test code = 2217) 100 MG/DL BUN (test code = 2208) 16 MG/DL CREATININE (test code = 2214) 1.15 MG/DL eGFR (2020 CKD-EPI) (test co de = 69677) 62 ML/MIN/1.73 CALC BUN/CREAT (test code = [...] ALT (test code = 2219) 14 U/L Juan SantanaMICROALBUMIN, [id number] 00:00:00* Test Item Value Reference Range Interpretation Comme nts ALBUMIN, URINE, RANDOM (test code = 73295) 4.6 MG/DL Juan SantanaCBC W/AUTO [id number] 00:00:00* Test Item Value Reference Range Interpretation [...] ABS NUCLEATED RBCS (test cod e = 37113) 0.00 K/UL Juan SantanaLIPID [id number] 00:00:00* Test Item Value Reference Range Interpretation Comme nts CHOLESTEROL (test code = 2210) 243 MG/DL TRIGLYCERIDES (test code = 2232) 195 MG/DL HDL CHOLESTEROL (test code = 2220) 59 MG/DL CALC LDL CHOL (test code = 2237) 150 MG/DL RISK RATIO LDL/HDL (test cod e = 2238) 2.54 RATIO Juan SantanaCOMPREHENSIVE METABOLIC [id number] 00:00:00* Test Item Value Reference Range Interpretation Comme nts GLUCOSE (test code = 2217) 100 MG/DL BUN (test code = 2208) 16 MG/DL CREATININE (test code = 2214) 1.15 MG/DL eGFR (2020 CKD-EPI) (test co de = 01941) 62 ML/MIN/1.73 CALC BUN/CREAT (test code = [...] ALT (test code = 2219) 14 U/L Juan SantanaMICROALBUMIN, [id number] 00:00:00* Test Item Value Reference Range Interpretation Comme nts ALBUMIN, URINE, RANDOM (test code = 99689) 4.6 MG/DL Juan SantanaCBC W/AUTO [id number] 00:00:00* Test Item Value Reference Range Interpretation [...] ABS NUCLEATED RBCS (test cod e = 54853) 0.00 K/UL Juan Richard AustinLIPID [id number] 00:00:00* Test Item Value Reference Range Interpretation Comme nts CHOLESTEROL (test code = 2210) 243 MG/DL TRIGLYCERIDES (test code = 2232) 195 MG/DL HDL CHOLESTEROL (test code = 2220) 59 MG/DL CALC LDL CHOL (test code = 2237) 150 MG/DL RISK RATIO LDL/HDL (test cod e = 2238) 2.54 RATIO Juan SantanaCOMPREHENSIVE METABOLIC [id number] 00:00:00* Test Item Value Reference Range Interpretation Comme nts GLUCOSE (test code = 2217) 100 MG/DL BUN (test code = 2208) 16 MG/DL CREATININE (test code = 2214) 1.15 MG/DL eGFR (2020 CKD-EPI) (test co de = 22084) 62 ML/MIN/1.73 CALC BUN/CREAT (test code = [...] ALT (test code = 2219) 14 U/L Juan Hilary MaxMICROALBUMIN, [id number] 00:00:00* Test Item Value Reference Range Interpretation Comme nts ALBUMIN, URINE, RANDOM (test code = 50628) 4.6 MG/DL Juan SantanaCBC W/AUTO [id number] 00:00:00* Test Item Value Reference Range Interpretation [...] ABS NUCLEATED RBCS (test cod e = 86228) 0.00 K/UL Juan SantanaLIPID [id number] 00:00:00* Test Item Value Reference Range Interpretation Comme nts CHOLESTEROL (test code = 2210) 243 MG/DL TRIGLYCERIDES (test code = 2232) 195 MG/DL HDL CHOLESTEROL (test code = 2220) 59 MG/DL CALC LDL CHOL (test code = 2237) 150 MG/DL RISK RATIO LDL/HDL (test cod e = 2238) 2.54 RATIO Juan SantanaCOMPREHENSIVE METABOLIC [id number] 00:00:00* Test Item Value Reference Range Interpretation Comme nts GLUCOSE (test code = 2217) 100 MG/DL BUN (test code = 2208) 16 MG/DL CREATININE (test code = 2214) 1.15 MG/DL eGFR (2020 CKD-EPI) (test co de = 32680) 62 ML/MIN/1.73 CALC BUN/CREAT (test code = [...] ALT (test code = 2219) 14 U/L Juan SantanaMICROALBUMIN, [id number] 00:00:00* Test Item Value Reference Range Interpretation Comme nts ALBUMIN, URINE, RANDOM (test code = 73883) 4.6 MG/DL Juan SantanaCBC W/AUTO [id number] 00:00:00* Test Item Value Reference Range Interpretation [...] ABS NUCLEATED RBCS (test cod e = 67091) 0.00 K/UL Juan SantanaLIPID [id number] 00:00:00* Test Item Value Reference Range Interpretation Comme nts CHOLESTEROL (test code = 2210) 243 MG/DL TRIGLYCERIDES (test code = 2232) 195 MG/DL HDL CHOLESTEROL (test code = 2220) 59 MG/DL CALC LDL CHOL (test code = 2237) 150 MG/DL RISK RATIO LDL/HDL (test cod e = 2238) 2.54 RATIO COMPREHENSIVE METABOLIC [id number] 00:00:00* Test Item Value Reference Range Interpretation Comme nts GLUCOSE (test code = 2217) 100 MG/DL BUN (test code = 2208) 16 MG/DL CREATININE (test code = 2214) 1.15 MG/DL eGFR (2020 CKD-EPI) (test co de = 78556) 62 ML/MIN/1.73 CALC BUN/CREAT (test code = [...] (test code = 2219) 14 U/L LIPID [id number] 00:00:00* Test Item Value Reference Range Interpretation Comme nts CHOLESTEROL (test code = 2210) 243 MG/DL TRIGLYCERIDES (test code = 2232) 195 MG/DL HDL CHOLESTEROL (test code = 2220) 59 MG/DL CALC LDL CHOL (test code = 2237) 150 MG/DL RISK RATIO LDL/HDL (test cod e = 2238) 2.54 RATIO Juan F AustinMICROALBUMIN, [id number] 00:00:00* Test Item Value Reference Range Interpretation Comme nts ALBUMIN, URINE, RANDOM (test code = 50318) 4.6 MG/DL CBC W/AUTO [id number] 00:00:00* Test Item Value Reference Range Interpretation [...] ABS NUCLEATED RBCS (test cod e = 64484) 0.00 K/UL COMPREHENSIVE METABOLIC [id number] 00:00:00* Test Item Value Reference Range Interpretation Comme nts GLUCOSE (test code = 2217) 100 MG/DL BUN (test code = 2208) 16 MG/DL CREATININE (test code = 2214) 1.15 MG/DL eGFR (2020 CKD-EPI) (test co de = 13417) 62 ML/MIN/1.73 CALC BUN/CREAT (test code = [...] ALT (test code = 2219) 14 U/L Juan SantanaMICROALBUMIN, [id number] 00:00:00* Test Item Value Reference Range Interpretation Comme nts ALBUMIN, URINE, RANDOM (test code = 22734) 4.6 MG/DL Juan SantanaLIPID [id number] 00:00:00* Test Item Value Reference Range Interpretation Comme nts CHOLESTEROL (test code = 2210) 243 MG/DL TRIGLYCERIDES (test code = 2232) 195 MG/DL HDL CHOLESTEROL (test code = 2220) 59 MG/DL CALC LDL CHOL (test code = 2237) 150 MG/DL RISK RATIO LDL/HDL (test cod e = 2238) 2.54 RATIO CBC W/AUTO [id number] 00:00:00* Test Item Value Reference Range Interpretation [...] ABS NUCLEATED RBCS (test cod e = 91180) 0.00 K/UL Juan LovelaceRS-CoV-2 (COVID-19), RT-PCR/[id number] 17:21:35* Test Item Value Reference Range Interpretation Comments SARS-CoV-2 INTERPRETATION (test code = 11944) NEGATIVE SEE NOTE SARS-CoV-2 R NA NOT [...] prevalence is high. SOURCE (test code = 84930) NASOPHARYNGEAL Note: Methodolog y is Virginie Stephani Real-Time RT-PCR. The expected result or reference range is NEGATIVE (Not Detected). For more information regarding COVID-19 testing to include clinicalinformation, methodology detail, intended use, FDA authorization andrecommended fact sheets for patients or healthcare providers, see NewTest Announcement: SARS-CoV-2 (COVID-19) by NAAT at URL below (note,fact sheets are provided by method given in report:[email or web address] Alternatively, see downloadable PDF fact sheet at:[email or web address] UNLESS OTHERWISE INDICATED, ALL TESTING PERFORMED [facility] [place] [address] [place] [id number] PERIPHERAL EQUIPMENT OPERATOR: CECILIA CORNELL M.D. CLIA NUMBER [id number] [place]. [id number] SARS-CoV-2 (COVID-19) by RT-PCR (HIGH RISK)2021-07-16 00:00:00* Test Item Value Reference Range Interpretation Comme nts SARS-CoV-2 INTERPRETATION (test code = 16140) NEGATIVE SOURCE (test code = 01216) NASOPHARYNGEAL Juan Richard KvoxypYLKZ-FpI-5 (COVID-19) by RT-PCR (HIGH RISK)2021-07-16 00:00:00* Test Item Value Reference Range Interpretation Comme nts SARS-CoV-2 INTERPRETATION (test code = 69515) NEGATIVE SOURCE (test code = 84865) NASOPHARYNGEAL Juan F SasaarSDRE-PpM-0 (COVID-19) by RT-PCR (HIGH RISK)2021-07-16 00:00:00* Test Item Value Reference Range Interpretation Comme nts SARS-CoV-2 INTERPRETATION (test code = 36774) NEGATIVE SOURCE (test code = 15943) NASOPHARYNGEAL Juan F IqcqdlNGMQ-FcU-8 (COVID-19) by RT-PCR (HIGH RISK)2021-07-16 00:00:00* Test Item Value Reference Range Interpretation Comme nts SARS-CoV-2 INTERPRETATION (test code = 32410) NEGATIVE SOURCE (test code = 49301) NASOPHARYNGEAL Juan F DxasdvEDET-VxU-7 (COVID-19) by RT-PCR (HIGH RISK)2021-07-16 00:00:00* Test Item Value Reference Range Interpretation Comme nts SARS-CoV-2 INTERPRETATION (test code = 23672) NEGATIVE SOURCE (test code = 62163) NASOPHARYNGEAL SARS-CoV-2 (COVID-19) by RT-PCR (HIGH RISK)2021-07-16 00:00:00* Test Item Value Reference Range Interpretation Comme nts SARS-CoV-2 INTERPRETATION (test code = 59587) NEGATIVE SOURCE (test code = 90758) NASOPHARYNGEAL Juan F PurlrdOYQT-UpA-3 (COVID-19) by RT-PCR (HIGH RISK)2021-07-16 00:00:00* Test Item Value Reference Range Interpretation Comme nts SARS-CoV-2 INTERPRETATION (test code = 33626) NEGATIVE SOURCE (test code = 18631) NASOPHARYNGEAL [id number] 00:00:00* Test Item Value Reference Range Interpretation Comme nts TSH, THIRD GENERATION (test code = 2821) 0.705 UIU/ML Juan [id number] 00:00:00* Test Item Value Reference Range Interpretation Comme nts TSH, THIRD GENERATION (test code = 2821) 0.705 UIU/ML Juan Richard [id number] 00:00:00* Test Item Value Reference Range Interpretation Comme nts TSH, THIRD GENERATION (test code = 2821) 0.705 UIU/ML Juan Richard [id number] 00:00:00* Test Item Value Reference Range Interpretation Comme nts TSH, THIRD GENERATION (test code = 2821) 0.705 UIU/ML [id number] 00:00:00* Test Item Value Reference Range Interpretation Comme nts TSH, THIRD GENERATION (test code = 2821) 0.705 UIU/ML Juan Richard [id number] 00:00:00* Test Item Value Reference Range Interpretation Comme nts TSH, THIRD GENERATION (test code = 2821) 0.705 UIU/ML [id number] 00:00:00* Test Item Value Reference Range Interpretation Comme nts TSH, THIRD GENERATION (test code = 2821) 0.705 UIU/ML Juan Richard AustinHEMOGLOBIN [id number] 00:00:00* Test Item Value Reference Range Interpretation Comme nts HEMOGLOBIN A1c (test code = 11420) 5.5 % Juan Richard AustinH. PYLORI (BREATH)2021-04-11 00:00:00* Test Item Value Reference Range Interpretation Comme nts H. PYLORI (BREATH) (test cod e = 02505) NEGATIVE Juan Richard AustinHEMOGLOBIN [id number] 00:00:00* Test Item Value Reference Range Interpretation Comme nts HEMOGLOBIN A1c (test code = 45159) 5.5 % HEMOGLOBIN [id number] 00:00:00* Test Item Value Reference Range Interpretation Comme nts HEMOGLOBIN A1c (test code = 72304) 5.5 % Juan Richard AustinH. PYLORI (BREATH)2021-04-11 00:00:00* Test Item Value Reference Range Interpretation Comme nts H. PYLORI (BREATH) (test cod e = 45655) NEGATIVE Juan Richard AustinHEMOGLOBIN [id number] 00:00:00* Test Item Value Reference Range Interpretation Comme nts HEMOGLOBIN A1c (test code = 38981) 5.5 % Juan F AustinH. PYLORI (BREATH)2021-04-11 00:00:00* Test Item Value Reference Range Interpretation Comme nts H. PYLORI (BREATH) (test cod e = 26851) NEGATIVE Juan Richard AustinHEMOGLOBIN [id number] 00:00:00* Test Item Value Reference Range Interpretation Comme nts HEMOGLOBIN A1c (test code = 02471) 5.5 % Juan F AustinH. PYLORI (BREATH)2021-04-11 00:00:00* Test Item Value Reference Range Interpretation Comme nts H. PYLORI (BREATH) (test cod e = 87830) NEGATIVE Juan F AustinH. PYLORI (BREATH)2021-04-11 00:00:00* Test Item Value Reference Range Interpretation Comme nts H. PYLORI (BREATH) (test cod e = 44492) NEGATIVE HEMOGLOBIN [id number] 00:00:00* Test Item Value Reference Range Interpretation Comme nts HEMOGLOBIN A1c (test code = 09523) 5.5 % Juan F AustinH. PYLORI (BREATH)2021-04-11 00:00:00* Test Item Value Reference Range Interpretation Comme nts H. PYLORI (BREATH) (test cod e = 73341) NEGATIVE Juan Richard AustinHEMOGLOBIN [id number] 00:00:00* Test Item Value Reference Range Interpretation Comme nts HEMOGLOBIN A1c (test code = 04392) 5.5 % H. PYLORI (BREATH)2021-04-11 00:00:00* Test Item Value Reference Range Interpretation Comme nts H. PYLORI (BREATH) (test cod e = 20369) NEGATIVE MICROALBUMIN/CREATININE, RANDOM AND [id number] 00:00:00* Test Item Value Reference Range Interpretation Comme nts CREATININE, URINE, CONC. (te st code = 2072) 13.0 MG/DL ALBUMIN, URINE, RANDOM (test code = 35962) 3.0 MG/DL CALC ALBUMIN/CREAT, RND (cristhian t code = 67362) 231 MG/G Juan Richard AustinMICROALBUMIN/CREATININE, RANDOM AND [id number] 00:00:00* Test Item Value Reference Range Interpretation Comme nts CREATININE, URINE, CONC. (te st code = 2072) 13.0 MG/DL ALBUMIN, URINE, RANDOM (test code = 31367) 3.0 MG/DL CALC ALBUMIN/CREAT, RND (cristhian t code = 55773) 231 MG/G MICROALBUMIN/CREATININE, RANDOM AND [id number] 00:00:00* Test Item Value Reference Range Interpretation Comme nts CREATININE, URINE, CONC. (te st code = 2071) 13.0 MG/DL ALBUMIN, URINE, RANDOM (test code = 84591) 3.0 MG/DL CALC ALBUMIN/CREAT, RND (cristhian t code = 95828) 231 MG/G Juan F AustinMICROALBUMIN/CREATININE, RANDOM AND [id number] 00:00:00* Test Item Value Reference Range Interpretation Comme nts CREATININE, URINE, CONC. (te st code = 2071) 13.0 MG/DL ALBUMIN, URINE, RANDOM (test code = 67711) 3.0 MG/DL CALC ALBUMIN/CREAT, RND (cristhian t code = 03931) 231 MG/G Juan F AustinMICROALBUMIN/CREATININE, RANDOM AND [id number] 00:00:00* Test Item Value Reference Range Interpretation Comme nts CREATININE, URINE, CONC. (te st code = 2071) 13.0 MG/DL ALBUMIN, URINE, RANDOM (test code = 67712) 3.0 MG/DL CALC ALBUMIN/CREAT, RND (cristhian t code = 73615) 231 MG/G Juan F AustinMICROALBUMIN/CREATININE, RANDOM AND [id number] 00:00:00* Test Item Value Reference Range Interpretation Comme nts CREATININE, URINE, CONC. (te st code = 2071) 13.0 MG/DL ALBUMIN, URINE, RANDOM (test code = 27723) 3.0 MG/DL CALC ALBUMIN/CREAT, RND (cristhian t code = 36990) 231 MG/G Juan F AustinMICROALBUMIN/CREATININE, RANDOM AND [id number] 00:00:00* Test Item Value Reference Range Interpretation Comme nts CREATININE, URINE, CONC. (te st code = 2071) 13.0 MG/DL ALBUMIN, URINE, RANDOM (test code = 08300) 3.0 MG/DL CALC ALBUMIN/CREAT, RND (cristhian t code = 37613) 231 MG/G CBC W/AUTO [id number] 00:00:00* Test Item Value Reference Range Interpretation [...] ABS NUCLEATED RBCS (test cod e = 23554) 0.00 K/UL [id number] 00:00:00* Test Item Value Reference Range Interpretation Comme nts TSH, THIRD GENERATION (test code = 2821) 1.370 UIU/ML Juan F AustinSEDIMENTATION [id number] 00:00:00* Test Item Value Reference Range Interpretation Comme nts SEDIMENTATION RATE (test cod e = 1017) 27 MM/HOUR LUCA NON-REFLEX TO [id number] 00:00:00* Test Item Value Reference Range Interpretation Comme nts ANTI-NUCLEAR ANTIBODIES (cristhian t code = 3506) NEGATIVE CBC W/AUTO [id number] 00:00:00* Test Item Value Reference Range Interpretation [...] ABS NUCLEATED RBCS (test cod e = 17607) 0.00 K/UL Juan F AustinCOMPREHENSIVE METABOLIC [id number] 00:00:00* Test Item Value Reference Range Interpretation Comme nts GLUCOSE (test code = 2217) 76 MG/DL BUN (test code = 2208) 16 MG/DL CREATININE (test code = 2214) 1.21 MG/DL eGFR AMER. (test cod e = 96556) 65 ML/MIN/1.73 eGFR NON- AMER. (test code = 80967) 56 ML/MIN/1.73 CALC BUN/CREAT (test code = [...] ALT (test code = 2219) 22 U/L SEDIMENTATION [id number] 00:00:00* Test Item Value Reference Range Interpretation Comme nts SEDIMENTATION RATE (test cod e = 1017) 27 MM/HOUR Juan SantanaANA NON-REFLEX TO [id number] 00:00:00* Test Item Value Reference Range Interpretation Comme nts ANTI-NUCLEAR ANTIBODIES (cristhian t code = 3506) NEGATIVE Juan SantanaCOMPREHENSIVE METABOLIC [id number] 00:00:00* Test Item Value Reference Range Interpretation Comme nts GLUCOSE (test code = 2217) 76 MG/DL BUN (test code = 2208) 16 MG/DL CREATININE (test code = 2214) 1.21 MG/DL eGFR AMER. (test cod e = 97635) 65 ML/MIN/1.73 eGFR NON- AMER. (test code = 77309) 56 ML/MIN/1.73 CALC BUN/CREAT (test code = [...] ALT (test code = 2219) 22 U/L Juan [id number] 00:00:00* Test Item Value Reference Range Interpretation Comme nts TSH, THIRD GENERATION (test code = 2821) 1.370 UIU/ML Juan MurrayC W/AUTO [id number] 00:00:00* Test Item Value Reference Range Interpretation [...] ABS NUCLEATED RBCS (test cod e = 27998) 0.00 K/UL Juan SantanaSEDIMENTATION [id number] 00:00:00* Test Item Value Reference Range Interpretation Comme nts SEDIMENTATION RATE (test cod e = 1017) 27 MM/HOUR Juan Escobar NON-REFLEX TO [id number] 00:00:00* Test Item Value Reference Range Interpretation Comme nts ANTI-NUCLEAR ANTIBODIES (cristhian t code = 3506) NEGATIVE Juan SantanaCOMPREHENSIVE METABOLIC [id number] 00:00:00* Test Item Value Reference Range Interpretation Comme nts GLUCOSE (test code = 2217) 76 MG/DL BUN (test code = 2208) 16 MG/DL CREATININE (test code = 2214) 1.21 MG/DL eGFR AMER. (test cod e = 37341) 65 ML/MIN/1.73 eGFR NON- AMER. (test code = 71424) 56 ML/MIN/1.73 CALC BUN/CREAT (test code = [...] ALT (test code = 2219) 22 U/L Juan [id number] 00:00:00* Test Item Value Reference Range Interpretation Comme nts TSH, THIRD GENERATION (test code = 2821) 1.370 UIU/ML Juan SantanaCBC W/AUTO [id number] 00:00:00* Test Item Value Reference Range Interpretation [...] ABS NUCLEATED RBCS (test cod e = 57014) 0.00 K/UL Juan Richard AustinSEDIMENTATION [id number] 00:00:00* Test Item Value Reference Range Interpretation Comme nts SEDIMENTATION RATE (test cod e = 1017) 27 MM/HOUR Juan SantanaANA NON-REFLEX TO [id number] 00:00:00* Test Item Value Reference Range Interpretation Comme nts ANTI-NUCLEAR ANTIBODIES (cristhian t code = 3506) NEGATIVE Juan SantanaCOMPREHENSIVE METABOLIC [id number] 00:00:00* Test Item Value Reference Range Interpretation Comme nts GLUCOSE (test code = 2217) 76 MG/DL BUN (test code = 2208) 16 MG/DL CREATININE (test code = 2214) 1.21 MG/DL eGFR AMER. (test cod e = 89256) 65 ML/MIN/1.73 eGFR NON- AMER. (test code = 60332) 56 ML/MIN/1.73 CALC BUN/CREAT (test code = [...] ALT (test code = 2219) 22 U/L Juan [id number] 00:00:00* Test Item Value Reference Range Interpretation Comme nts TSH, THIRD GENERATION (test code = 2821) 1.370 UIU/ML Juan SantanaCBC W/AUTO [id number] 00:00:00* Test Item Value Reference Range Interpretation [...] ABS NUCLEATED RBCS (test cod e = 39712) 0.00 K/UL Juan F AustinSEDIMENTATION [id number] 00:00:00* Test Item Value Reference Range Interpretation Comme nts SEDIMENTATION RATE (test cod e = 1017) 27 MM/HOUR Juan Escobar NON-REFLEX TO [id number] 00:00:00* Test Item Value Reference Range Interpretation Comme nts ANTI-NUCLEAR ANTIBODIES (cristhian t code = 3506) NEGATIVE Juan [id number] 00:00:00* Test Item Value Reference Range Interpretation Comme nts TSH, THIRD GENERATION (test code = 2821) 1.370 UIU/ML COMPREHENSIVE METABOLIC [id number] 00:00:00* Test Item Value Reference Range Interpretation Comme nts GLUCOSE (test code = 2217) 76 MG/DL BUN (test code = 2208) 16 MG/DL CREATININE (test code = 2214) 1.21 MG/DL eGFR AMER. (test cod e = 48636) 65 ML/MIN/1.73 eGFR NON- AMER. (test code = 89717) 56 ML/MIN/1.73 CALC BUN/CREAT (test code = [...] ALT (test code = 2219) 22 U/L Juan SantanaCBC W/AUTO [id number] 00:00:00* Test Item Value Reference Range Interpretation [...] ABS NUCLEATED RBCS (test cod e = 11981) 0.00 K/UL [id number] 00:00:00* Test Item Value Reference Range Interpretation Comme nts TSH, THIRD GENERATION (test code = 2821) 1.370 UIU/ML Juan F AustinSEDIMENTATION [id number] 00:00:00* Test Item Value Reference Range Interpretation Comme nts SEDIMENTATION RATE (test cod e = 1017) 27 MM/HOUR [place] NON-REFLEX TO [id number] 00:00:00* Test Item Value Reference Range Interpretation Comme nts ANTI-NUCLEAR ANTIBODIES (cristhian t code = 3506) NEGATIVE COMPREHENSIVE METABOLIC [id number] 00:00:00* Test Item Value Reference Range Interpretation Comme nts GLUCOSE (test code = 2217) 76 MG/DL BUN (test code = 2208) 16 MG/DL CREATININE (test code = 2214) 1.21 MG/DL eGFR AMER. (test cod e = 35561) 65 ML/MIN/1.73 eGFR NON- AMER. (test code = 94138) 56 ML/MIN/1.73 CALC BUN/CREAT (test code = [...] ALT (test code = 2219) 22 U/L CBC W/AUTO [id number] 00:00:00* Test Item Value Reference Range Interpretation [...] ABS NUCLEATED RBCS (test cod e = 05829) 0.00 K/UL Juan SantanaSEDIMENTATION [id number] 00:00:00* Test Item Value Reference Range Interpretation Comme nts SEDIMENTATION RATE (test cod e = 1017) 27 MM/HOUR Juan SantanaANA NON-REFLEX TO [id number] 00:00:00* Test Item Value Reference Range Interpretation Comme nts ANTI-NUCLEAR ANTIBODIES (cristhian t code = 3506) NEGATIVE Juan SantanaCOMPREHENSIVE METABOLIC [id number] 00:00:00* Test Item Value Reference Range Interpretation Comme nts GLUCOSE (test code = 2217) 76 MG/DL BUN (test code = 2208) 16 MG/DL CREATININE (test code = 2214) 1.21 MG/DL eGFR AMER. (test cod e = 75582) 65 ML/MIN/1.73 eGFR NON- AMER. (test code = 16247) 56 ML/MIN/1.73 CALC BUN/CREAT (test code = [...] ALT (test code = 2219) 22 U/L Juan [id number] 00:00:00* Test Item Value Reference Range Interpretation Comme oneal TSH, THIRD GENERATION (test code = 2821) 1.370 UIU/ML VITAMIN D, 25 [id number] 00:00:00* Test Item Value Reference Range Interpretation Comme nts VITAMIN D, 25 OH (test code = 4958) 24 NG/ML Juan SantanaCOMPREHENSIVE METABOLIC [id number] 00:00:00* Test Item Value Reference Range Interpretation Comme nts GLUCOSE (test code = 2217) 87 MG/DL BUN (test code = 2208) 15 MG/DL CREATININE (test code = 2214) 1.14 MG/DL eGFR AMER. (test cod e = 40918) 70 ML/MIN/1.73 eGFR NON- AMER. (test code = 01325) 60 ML/MIN/1.73 CALC BUN/CREAT (test code = [...] ALT (test code = 2219) 23 U/L [id number] 00:00:00* Test Item Value Reference Range Interpretation Comme nts TSH, THIRD GENERATION (test code = 2821) 1.200 UIU/ML Juan SantanaCOMPREHENSIVE METABOLIC [id number] 00:00:00* Test Item Value Reference Range Interpretation Comme nts GLUCOSE (test code = 2217) 87 MG/DL BUN (test code = 2208) 15 MG/DL CREATININE (test code = 2214) 1.14 MG/DL eGFR AMER. (test cod e = 29559) 70 ML/MIN/1.73 eGFR NON- AMER. (test code = 81529) 60 ML/MIN/1.73 CALC BUN/CREAT (test code = [...] ALT (test code = 2219) 23 U/L Juan SantanaVITAMIN D, 25 [id number] 00:00:00* Test Item Value Reference Range Interpretation Comme [facility] VITAMIN D, 25 OH (test code = 4958) 24 NG/ML Juan [id number] 00:00:00* Test Item Value Reference Range Interpretation Comme nts TSH, THIRD GENERATION (test code = 2821) 1.200 UIU/ML Juan SantanaCOMPREHENSIVE METABOLIC [id number] 00:00:00* Test Item Value Reference Range Interpretation Comme nts GLUCOSE (test code = 2217) 87 MG/DL BUN (test code = 2208) 15 MG/DL CREATININE (test code = 2214) 1.14 MG/DL eGFR AMER. (test cod e = 62191) 70 ML/MIN/1.73 eGFR NON- AMER. (test code = 87592) 60 ML/MIN/1.73 CALC BUN/CREAT (test code = [...] ALT (test code = 2219) 23 U/L Juan SantanaVITAMIN D, 25 [id number] 00:00:00* Test Item Value Reference Range Interpretation Comme nts VITAMIN D, 25 OH (test code = 4958) 24 NG/ML Juan [id number] 00:00:00* Test Item Value Reference Range Interpretation Comme nts TSH, THIRD GENERATION (test code = 2821) 1.200 UIU/ML Juan SantanaCOMPREHENSIVE METABOLIC [id number] 00:00:00* Test Item Value Reference Range Interpretation Comme nts GLUCOSE (test code = 2217) 87 MG/DL BUN (test code = 2208) 15 MG/DL CREATININE (test code = 2214) 1.14 MG/DL eGFR AMER. (test cod e = 49220) 70 ML/MIN/1.73 eGFR NON- AMER. (test code = 80790) 60 ML/MIN/1.73 CALC BUN/CREAT (test code = [...] ALT (test code = 2219) 23 U/L Juan SantanaVITAMIN D, 25 [id number] 00:00:00* Test Item Value Reference Range Interpretation Comme nts VITAMIN D, 25 OH (test code = 4958) 24 NG/ML Juan [id number] 00:00:00* Test Item Value Reference Range Interpretation Comme nts TSH, THIRD GENERATION (test code = 2821) 1.200 UIU/ML Juan SantanaCOMPREHENSIVE METABOLIC [id number] 00:00:00* Test Item Value Reference Range Interpretation Comme nts GLUCOSE (test code = 2217) 87 MG/DL BUN (test code = 2208) 15 MG/DL CREATININE (test code = 2214) 1.14 MG/DL eGFR AMER. (test cod e = 43767) 70 ML/MIN/1.73 eGFR NON- AMER. (test code = 94748) 60 ML/MIN/1.73 CALC BUN/CREAT (test code = [...] ALT (test code = 2219) 23 U/L Juan SantanaVITAMIN D, 25 [id number] 00:00:00* Test Item Value Reference Range Interpretation Comme nts VITAMIN D, 25 OH (test code = 4958) 24 NG/ML [id number] 00:00:00* Test Item Value Reference Range Interpretation Comme nts TSH, THIRD GENERATION (test code = 2821) 1.200 UIU/ML VITAMIN D, 25 [id number] 00:00:00* Test Item Value Reference Range Interpretation Comme nts VITAMIN D, 25 OH (test code = 4958) 24 NG/ML Juan SantanaCOMPREHENSIVE METABOLIC [id number] 00:00:00* Test Item Value Reference Range Interpretation Comme nts GLUCOSE (test code = 2217) 87 MG/DL BUN (test code = 2208) 15 MG/DL CREATININE (test code = 2214) 1.14 MG/DL eGFR AMER. (test cod e = 89365) 70 ML/MIN/1.73 eGFR NON- AMER. (test code = 50079) 60 ML/MIN/1.73 CALC BUN/CREAT (test code = [...] ALT (test code = 2219) 23 U/L [id number] 00:00:00* Test Item Value Reference Range Interpretation Comme nts TSH, THIRD GENERATION (test code = 2821) 1.200 UIU/ML Juan SantanaVITAMIN D, 25 [id number] 00:00:00* Test Item Value Reference Range Interpretation Comme nts VITAMIN D, 25 OH (test code = 4958) 24 NG/ML COMPREHENSIVE METABOLIC [id number] 00:00:00* Test Item Value Reference Range Interpretation Comme nts GLUCOSE (test code = 2217) 87 MG/DL BUN (test code = 2208) 15 MG/DL CREATININE (test code = 2214) 1.14 MG/DL eGFR AMER. (test cod e = 50230) 70 ML/MIN/1.73 eGFR NON- AMER. (test code = 91282) 60 ML/MIN/1.73 CALC BUN/CREAT (test code = [...] ALT (test code = 2219) 23 U/L Juan Richard [id number] 00:00:00* Test Item Value Reference Range Interpretation Comme nts TSH, THIRD GENERATION (test code = 2821) 1.200 UIU/ML COMPREHENSIVE METABOLIC [id number] 00:00:00* Test Item Value Reference Range Interpretation Comme nts GLUCOSE (test code = 2217) 91 MG/DL BUN (test code = 2208) 15 MG/DL CREATININE (test code = 2214) 0.99 MG/DL eGFR AMER. (test cod e = 84955) 83 ML/MIN/1.73 eGFR NON- AMER. (test code = 51239) 72 ML/MIN/1.73 CALC BUN/CREAT (test code = [...] ALT (test code = 2219) 130 U/L LIPID [id number] 00:00:00* Test Item Value Reference Range Interpretation Comme nts CHOLESTEROL (test code = 2210) 207 MG/DL TRIGLYCERIDES (test code = 2232) 156 MG/DL HDL CHOLESTEROL (test code = 2220) 65 MG/DL CALC LDL CHOL (test code = 223) 115 MG/DL RISK RATIO LDL/HDL (test cod e = 223) 1.77 RATIO Juan [id number] 00:00:00* Test Item Value Reference Range Interpretation Comme nts TSH, THIRD GENERATION (test code = 2821) 7.820 UIU/ML VITAMIN D, 25 [id number] 00:00:00* Test Item Value Reference Range Interpretation Comme nts VITAMIN D, 25 [place] (test code = 4958) 26 NG/ML COMPREHENSIVE METABOLIC [id number] 00:00:00* Test Item Value Reference Range Interpretation Comme nts GLUCOSE (test code = 7) 91 MG/DL BUN (test code = 8) 15 MG/DL CREATININE (test code = 2214) 0.99 MG/DL eGFR AMER. (test cod e = 75344) 83 ML/MIN/1.73 eGFR NON- AMER. (test code = 83855) 72 ML/MIN/1.73 CALC BUN/CREAT (test code = [...] ALT (test code = 2219) 130 U/L Juan [id number] 00:00:00* Test Item Value Reference Range Interpretation Comme oneal TSH, THIRD GENERATION (test code = 2821) 7.820 UIU/ML Juan SantanaVITAMIN D, 25 [id number] 00:00:00* Test Item Value Reference Range Interpretation Comme oneal VITAMIN D, 25 [place] (test code = 4958) 26 NG/ML Juan SantanaHEMOGLOBIN [id number] 00:00:00* Test Item Value Reference Range Interpretation Comme oneal HEMOGLOBIN A1c (test code = 77621) 5.5 % Juan SantanaLIPID [id number] 00:00:00* Test Item Value Reference Range Interpretation Comme nts CHOLESTEROL (test code = 2210) 207 MG/DL TRIGLYCERIDES (test code = 2232) 156 MG/DL HDL CHOLESTEROL (test code = 2220) 65 MG/DL CALC LDL CHOL (test code = 2236) 115 MG/DL RISK RATIO LDL/HDL (test cod e = 2238) 1.77 RATIO Juan SantanaCOMPREHENSIVE METABOLIC [id number] 00:00:00* Test Item Value Reference Range Interpretation Comme oneal GLUCOSE (test code = 7) 91 MG/DL BUN (test code = 2208) 15 MG/DL CREATININE (test code = 2214) 0.99 MG/DL eGFR AMER. (test cod e = 98721) 83 ML/MIN/1.73 eGFR NON- AMER. (test code = 67368) 72 ML/MIN/1.73 CALC BUN/CREAT (test code = [...] ALT (test code = 2219) 130 U/L Juan [id number] 00:00:00* Test Item Value Reference Range Interpretation Comme oneal TSH, THIRD GENERATION (test code = 2821) 7.820 UIU/ML Juan SantanaVITAMIN D, 25 [id number] 00:00:00* Test Item Value Reference Range Interpretation Comme oneal VITAMIN D, 25 OH (test code = 4958) 26 NG/ML Juan SantanaHEMOGLOBIN [id number] 00:00:00* Test Item Value Reference Range Interpretation Comme oneal HEMOGLOBIN A1c (test code = 55785) 5.5 % Juan SantanaLIPID [id number] 00:00:00* Test Item Value Reference Range Interpretation Comme oneal CHOLESTEROL (test code = 2210) 207 MG/DL TRIGLYCERIDES (test code = 2232) 156 MG/DL HDL CHOLESTEROL (test code = 2220) 65 MG/DL CALC LDL CHOL (test code = 2237) 115 MG/DL RISK RATIO LDL/HDL (test cod e = 2238) 1.77 RATIO Juan SantanaCOMPREHENSIVE METABOLIC [id number] 00:00:00* Test Item Value Reference Range Interpretation Comme nts GLUCOSE (test code = 2217) 91 MG/DL BUN (test code = 2208) 15 MG/DL CREATININE (test code = 2214) 0.99 MG/DL eGFR AMER. (test cod e = 51475) 83 ML/MIN/1.73 eGFR NON- AMER. (test code = 92647) 72 ML/MIN/1.73 CALC BUN/CREAT (test code = [...] ALT (test code = 2219) 130 U/L Juan [id number] 00:00:00* Test Item Value Reference Range Interpretation Comme oneal TSH, THIRD GENERATION (test code = 2821) 7.820 UIU/ML Juan SantanaVITAMIN D, 25 [id number] 00:00:00* Test Item Value Reference Range Interpretation Comme oneal VITAMIN D, 25 OH (test code = 4958) 26 NG/ML Juan SantanaHEMOGLOBIN [id number] 00:00:00* Test Item Value Reference Range Interpretation Comme oneal HEMOGLOBIN A1c (test code = 07505) 5.5 % Juan SantanaLIPID [id number] 00:00:00* Test Item Value Reference Range Interpretation Comme nts CHOLESTEROL (test code = 2210) 207 MG/DL TRIGLYCERIDES (test code = 2232) 156 MG/DL HDL CHOLESTEROL (test code = 2220) 65 MG/DL CALC LDL CHOL (test code = 2237) 115 MG/DL RISK RATIO LDL/HDL (test cod e = 2238) 1.77 RATIO Juan SantanaCOMPREHENSIVE METABOLIC [id number] 00:00:00* Test Item Value Reference Range Interpretation Comme nts GLUCOSE (test code = 2217) 91 MG/DL BUN (test code = 2208) 15 MG/DL CREATININE (test code = 2214) 0.99 MG/DL eGFR AMER. (test cod e = 17654) 83 ML/MIN/1.73 eGFR NON- AMER. (test code = 98438) 72 ML/MIN/1.73 CALC BUN/CREAT (test code = [...] ALT (test code = 2219) 130 U/L Juan [id number] 00:00:00* Test Item Value Reference Range Interpretation Comme nts TSH, THIRD GENERATION (test code = 2821) 7.820 UIU/ML Juan SantanaVITAMIN D, 25 [id number] 00:00:00* Test Item Value Reference Range Interpretation Comme nts VITAMIN D, 25 OH (test code = 4958) 26 NG/ML Juan SantanaHEMOGLOBIN [id number] 00:00:00* Test Item Value Reference Range Interpretation Comme nts HEMOGLOBIN A1c (test code = 70782) 5.5 % LIPID [id number] 00:00:00* Test Item Value Reference Range Interpretation Comme nts CHOLESTEROL (test code = 2210) 207 MG/DL TRIGLYCERIDES (test code = 2232) 156 MG/DL HDL CHOLESTEROL (test code = 2220) 65 MG/DL CALC LDL CHOL (test code = 2237) 115 MG/DL RISK RATIO LDL/HDL (test cod e = 2238) 1.77 RATIO HEMOGLOBIN [id number] 00:00:00* Test Item Value Reference Range Interpretation Comme nts HEMOGLOBIN A1c (test code = 56244) 5.5 % Juan SantanaCOMPREHENSIVE METABOLIC [id number] 00:00:00* Test Item Value Reference Range Interpretation Comme nts GLUCOSE (test code = 2217) 91 MG/DL BUN (test code = 2208) 15 MG/DL CREATININE (test code = 2214) 0.99 MG/DL eGFR AMER. (test cod e = 81208) 83 ML/MIN/1.73 eGFR NON- AMER. (test code = 59897) 72 ML/MIN/1.73 CALC BUN/CREAT (test code = 223) 15 RATIO SODIUM (test code = 223) 137 MEQ/L POTASSIUM (test code = 2228) [...] 1.6 RATIO BILIRUBIN, TOTAL (test code = 220) 0.6 MG/DL ALKALINE PHOSPHATASE (test code = 2204) 119 U/L AST (test code = 221) 98 U/L ALT (test code = 221) 130 U/L LIPID [id number] 00:00:00* Test Item Value Reference Range Interpretation Comme nts CHOLESTEROL (test code = 2210) 207 MG/DL TRIGLYCERIDES (test code = 2232) 156 MG/DL HDL CHOLESTEROL (test code = 0) 65 MG/DL CALC LDL CHOL (test code = 2237) 115 MG/DL RISK RATIO LDL/HDL (test cod e = 223) 1.77 RATIO Juan [id number] 00:00:00* Test Item Value Reference Range Interpretation Comme nts TSH, THIRD GENERATION (test code = 2821) 7.820 UIU/ML VITAMIN D, 25 [id number] 00:00:00* Test Item Value Reference Range Interpretation Comme nts VITAMIN D, 25 OH (test code = 4958) 26 NG/ML COMPREHENSIVE METABOLIC [id number] 00:00:00* Test Item Value Reference Range Interpretation Comme nts GLUCOSE (test code = 7) 91 MG/DL BUN (test code = 2208) 15 MG/DL CREATININE (test code = 2214) 0.99 MG/DL eGFR AMER. (test cod e = 34668) 83 ML/MIN/1.73 eGFR NON- AMER. (test code = 36265) 72 ML/MIN/1.73 CALC BUN/CREAT (test code = [...] ALT (test code = 2219) 130 U/L Juan SantanaHEMOGLOBIN [id number] 00:00:00* Test Item Value Reference Range Interpretation Comme nts HEMOGLOBIN A1c (test code = 62329) 5.5 % [id number] 00:00:00* Test Item Value Reference Range Interpretation Comme nts TSH, THIRD GENERATION (test code = 2821) 7.820 UIU/ML Juan Richard MaxVITAMIN D, 25 [id number] 00:00:00* Test Item Value Reference Range Interpretation Comme nts VITAMIN D, 25 OH (test code = 4958) 26 NG/ML Juan SantanaLIPID [id number] 00:00:00* Test Item Value Reference Range Interpretation Comme nts CHOLESTEROL (test code = 2210) 207 MG/DL TRIGLYCERIDES (test code = 2232) 156 MG/DL HDL CHOLESTEROL (test code = 2220) 65 MG/DL CALC LDL CHOL (test code = 2237) 115 MG/DL RISK RATIO LDL/HDL (test cod e = 2238) 1.77 RATIO HEMOGLOBIN [id number] 00:00:00* Test Item Value Reference Range Interpretation Comme nts HEMOGLOBIN A1c (test code = 39036) 5.5 % Juan Hilary MaxTSH, THIRD GENERATION [ADDED]2020-03-31 00:00:00* Test Item Value Reference Range Interpretation Comme nts TSH, THIRD GENERATION (test code = 2821) 1.020 UIU/ML Juan Hilary MaxNOTE: [ADDED]2020-03-31 00:00:00* Test Item Value Reference Range Interpretation Comme nts NOTE: (test code = 998) (NOTE) Juan Petty THIRD GENERATION [ADDED]2020-03-31 00:00:00* Test Item Value Reference Range Interpretation Comme nts TSH, THIRD GENERATION (test code = 2821) 1.020 UIU/ML Juan Richard AustinNOTE: [ADDED]2020-03-31 00:00:00* Test Item Value Reference Range Interpretation Comme nts NOTE: (test code = 998) (NOTE) Juan Petty THIRD GENERATION [ADDED]2020-03-31 00:00:00* Test Item Value Reference Range Interpretation Comme nts TSH, THIRD GENERATION (test code = 2821) 1.020 UIU/ML Juan Richard AustinNOTE: [ADDED]2020-03-31 00:00:00* Test Item Value Reference Range Interpretation Comme nts NOTE: (test code = 998) (NOTE) Juan Petty THIRD GENERATION [ADDED]2020-03-31 00:00:00* Test Item Value Reference Range Interpretation Comme nts TSH, THIRD GENERATION (test code = 2821) 1.020 UIU/ML Juan Richard AustinNOTE: [ADDED]2020-03-31 00:00:00* Test Item Value Reference Range Interpretation Comme nts NOTE: (test code = 998) (NOTE) Juan Petty THIRD GENERATION [ADDED]2020-03-31 00:00:00* Test Item Value Reference Range Interpretation Comme nts TSH, THIRD GENERATION (test code = 2821) 1.020 UIU/ML NOTE: [ADDED]2020-03-31 00:00:00* Test Item Value Reference Range Interpretation Comme nts NOTE: (test code = 998) (NOTE) TSH, THIRD GENERATION [ADDED]2020-03-31 00:00:00* Test Item Value Reference Range Interpretation Comme nts TSH, THIRD GENERATION (test code = 2821) 1.020 UIU/ML Juan Richard AustinNOTE: [ADDED]2020-03-31 00:00:00* Test Item Value Reference Range Interpretation Comme nts NOTE: (test code = 998) (NOTE) Juan Petty THIRD GENERATION [ADDED]2020-03-31 00:00:00* Test Item Value Reference Range Interpretation Comme nts TSH, THIRD GENERATION (test code = 2821) 1.020 UIU/ML NOTE: [ADDED]2020-03-31 00:00:00* Test Item Value Reference Range Interpretation Comme nts NOTE: (test code = 998) (NOTE) VITAMIN D, 25 [id number] 00:00:00* Test Item Value Reference Range Interpretation Comme nts VITAMIN D, 25 OH (test code = 4958) 34 NG/ML VITAMIN D, 25 [id number] 00:00:00* Test Item Value Reference Range Interpretation Comme nts VITAMIN D, 25 OH (test code = 4958) 34 NG/ML Juan Richard AustinVITAMIN D, 25 [id number] 00:00:00* Test Item Value Reference Range Interpretation Comme nts VITAMIN D, 25 OH (test code = 4958) 34 NG/ML Juan Richard AustinVITAMIN D, 25 [id number] 00:00:00* Test Item Value Reference Range Interpretation Comme nts VITAMIN D, 25 OH (test code = 4958) 34 NG/ML Juan Richard AustinVITAMIN D, 25 [id number] 00:00:00* Test Item Value Reference Range Interpretation Comme nts VITAMIN D, 25 OH (test code = 4958) 34 NG/ML Juan Richard AustinVITAMIN D, 25 [id number] 00:00:00* Test Item Value Reference Range Interpretation Comme nts VITAMIN D, 25 OH (test code = 4958) 34 NG/ML VITAMIN D, 25 [id number] 00:00:00* Test Item Value Reference Range Interpretation Comme nts VITAMIN D, 25 OH (test code = 4958) 34 NG/ML Juan Richard AustinLIPID [id number] 00:00:00* Test Item Value Reference Range Interpretation Comme nts CHOLESTEROL (test code = 2210) 213 MG/DL TRIGLYCERIDES (test code = 2232) 145 MG/DL HDL CHOLESTEROL (test code = 2220) 46 MG/DL CALC LDL CHOL (test code = 2237) 140 MG/DL RISK RATIO LDL/HDL (test cod e = 2238) 3.04 RATIO COMPREHENSIVE METABOLIC [id number] 00:00:00* Test Item Value Reference Range Interpretation Comme nts GLUCOSE (test code = 2217) 96 MG/DL BUN (test code = 2208) 15 MG/DL CREATININE (test code = 2214) 1.22 MG/DL eGFR AMER. (test cod e = 29660) 65 ML/MIN/1.73 eGFR NON- AMER. (test code = 68081) 56 ML/MIN/1.73 CALC BUN/CREAT (test code = [...] ALT (test code = 2219) 18 U/L Juan Hilary [place]agetownLIPID [id number] 00:00:00* Test Item Value Reference Range Interpretation Comme nts CHOLESTEROL (test code = 2210) 213 MG/DL TRIGLYCERIDES (test code = 2232) 145 MG/DL HDL CHOLESTEROL (test code = 2220) 46 MG/DL CALC LDL CHOL (test code = 2237) 140 MG/DL RISK RATIO LDL/HDL (test cod e = 2238) 3.04 RATIO Juan Richard GagetownCOMPREHENSIVE METABOLIC [id number] 00:00:00* Test Item Value Reference Range Interpretation Comme nts GLUCOSE (test code = 2217) 96 MG/DL BUN (test code = 2208) 15 MG/DL CREATININE (test code = 2214) 1.22 MG/DL eGFR AMER. (test cod e = 84322) 65 ML/MIN/1.73 eGFR NON- AMER. (test code = 42491) 56 ML/MIN/1.73 CALC BUN/CREAT (test code = [...] ALT (test code = 2219) 18 U/L Juan Richard [place]etownLIPID [id number] 00:00:00* Test Item Value Reference Range Interpretation Comme nts CHOLESTEROL (test code = 2210) 213 MG/DL TRIGLYCERIDES (test code = 2232) 145 MG/DL HDL CHOLESTEROL (test code = 2220) 46 MG/DL CALC LDL CHOL (test code = 2237) 140 MG/DL RISK RATIO LDL/HDL (test cod e = 2238) 3.04 RATIO Juan SantanaCOMPREHENSIVE METABOLIC [id number] 00:00:00* Test Item Value Reference Range Interpretation Comme nts GLUCOSE (test code = 2217) 96 MG/DL BUN (test code = 2207) 15 MG/DL CREATININE (test code = 2214) 1.22 MG/DL eGFR AMER. (test cod e = 28225) 65 ML/MIN/1.73 eGFR NON- AMER. (test code = 76118) 56 ML/MIN/1.73 CALC BUN/CREAT (test code = 2235) 12 RATIO SODIUM (test code = 2231) 142 MEQ/L POTASSIUM (test code = 2228) 4.5 MEQ/L CHLORIDE (test code = 2215) 105 MEQ/L CARBON DIOXIDE (test code = 6) 23 MEQ/L CALCIUM (test code = 2209) [...] ALT (test code = 2219) 18 U/L Juan SantanaLIPID [id number] 00:00:00* Test Item Value Reference Range Interpretation Comme nts CHOLESTEROL (test code = 2210) 213 MG/DL TRIGLYCERIDES (test code = 2232) 145 MG/DL HDL CHOLESTEROL (test code = 2220) 46 MG/DL CALC LDL CHOL (test code = 2237) 140 MG/DL RISK RATIO LDL/HDL (test cod e = 2238) 3.04 RATIO Juan SantanaCOMPREHENSIVE METABOLIC [id number] 00:00:00* Test Item Value Reference Range Interpretation Comme nts GLUCOSE (test code = 2217) 96 MG/DL BUN (test code = 2208) 15 MG/DL CREATININE (test code = 2214) 1.22 MG/DL eGFR AMER. (test cod e = 97752) 65 ML/MIN/1.73 eGFR NON- AMER. (test code = 92183) 56 ML/MIN/1.73 CALC BUN/CREAT (test code = [...] ALT (test code = 2219) 18 U/L Juan Richard AustinLIPID [id number] 00:00:00* Test Item Value Reference Range Interpretation Comme nts CHOLESTEROL (test code = 2210) 213 MG/DL TRIGLYCERIDES (test code = 2232) 145 MG/DL HDL CHOLESTEROL (test code = 2220) 46 MG/DL CALC LDL CHOL (test code = 2237) 140 MG/DL RISK RATIO LDL/HDL (test cod e = 2238) 3.04 RATIO Juan SantanaCOMPREHENSIVE METABOLIC [id number] 00:00:00* Test Item Value Reference Range Interpretation Comme nts GLUCOSE (test code = 2217) 96 MG/DL BUN (test code = 2208) 15 MG/DL CREATININE (test code = 2214) 1.22 MG/DL eGFR AMER. (test cod e = 46876) 65 ML/MIN/1.73 eGFR NON- AMER. (test code = 58279) 56 ML/MIN/1.73 CALC BUN/CREAT (test code = [...] (test code = 2219) 18 U/L LIPID [id number] 00:00:00* Test Item Value Reference Range Interpretation Comme nts CHOLESTEROL (test code = 2210) 213 MG/DL TRIGLYCERIDES (test code = 2232) 145 MG/DL HDL CHOLESTEROL (test code = 2220) 46 MG/DL CALC LDL CHOL (test code = 2237) 140 MG/DL RISK RATIO LDL/HDL (test cod e = 2238) 3.04 RATIO COMPREHENSIVE METABOLIC [id number] 00:00:00* Test Item Value Reference Range Interpretation Comme nts GLUCOSE (test code = 2217) 96 MG/DL BUN (test code = 2208) 15 MG/DL CREATININE (test code = 2214) 1.22 MG/DL eGFR AMER. (test cod e = 62271) 65 ML/MIN/1.73 eGFR NON- AMER. (test code = 32762) 56 ML/MIN/1.73 CALC BUN/CREAT (test code = [...] ALT (test code = 2219) 18 U/L Juan Hilary [place]agetownLIPID [id number] 00:00:00* Test Item Value Reference Range Interpretation Comme nts CHOLESTEROL (test code = 2210) 213 MG/DL TRIGLYCERIDES (test code = 2232) 145 MG/DL HDL CHOLESTEROL (test code = 2220) 46 MG/DL CALC LDL CHOL (test code = 2237) 140 MG/DL RISK RATIO LDL/HDL (test cod e = 2238) 3.04 RATIO Juan Richard GagetownCOMPREHENSIVE METABOLIC [id number] 00:00:00* Test Item Value Reference Range Interpretation Comme nts GLUCOSE (test code = 2217) 96 MG/DL BUN (test code = 2208) 15 MG/DL CREATININE (test code = 2214) 1.22 MG/DL eGFR AMER. (test cod e = 66462) 65 ML/MIN/1.73 eGFR NON- AMER. (test code = 32268) 56 ML/MIN/1.73 CALC BUN/CREAT (test code = [...] ALT (test code = 2219) 18 U/L HEMOGLOBIN [id number] 00:00:00* Test Item Value Reference Range Interpretation Comme nts HEMOGLOBIN A1c (test code = 22409) 5.3 % Juan Richard AustinHEMOGLOBIN [id number] 00:00:00* Test Item Value Reference Range Interpretation Comme nts HEMOGLOBIN A1c (test code = 71934) 5.3 % Juan Richard AustinHEMOGLOBIN [id number] 00:00:00* Test Item Value Reference Range Interpretation Comme nts HEMOGLOBIN A1c (test code = 23518) 5.3 % Juan Richard AustinHEMOGLOBIN [id number] 00:00:00* Test Item Value Reference Range Interpretation Comme nts HEMOGLOBIN A1c (test code = 23763) 5.3 % Juan Richard AustinHEMOGLOBIN [id number] 00:00:00* Test Item Value Reference Range Interpretation Comme nts HEMOGLOBIN A1c (test code = 06153) 5.3 % HEMOGLOBIN [id number] 00:00:00* Test Item Value Reference Range Interpretation Comme nts HEMOGLOBIN A1c (test code = 35930) 5.3 % Juan Richard AustinHEMOGLOBIN [id number] 00:00:00* Test Item Value Reference Range Interpretation Comme nts HEMOGLOBIN A1c (test code = 44044) 5.3 % [id number] 00:00:00* Test Item Value Reference Range Interpretation Comme nts TSH, THIRD GENERATION (test code = 2821) 1.950 UIU/ML Juan [id number] 00:00:00* Test Item Value Reference Range Interpretation Comme nts TSH, THIRD GENERATION (test code = 2821) 1.950 UIU/ML Juan [id number] 00:00:00* Test Item Value Reference Range Interpretation Comme nts TSH, THIRD GENERATION (test code = 2821) 1.950 UIU/ML Juan Richard [id number] 00:00:00* Test Item Value Reference Range Interpretation Comme nts TSH, THIRD GENERATION (test code = 2821) 1.950 UIU/ML [id number] 00:00:00* Test Item Value Reference Range Interpretation Comme nts TSH, THIRD GENERATION (test code = 2821) 1.950 UIU/ML Juan Richard [id number] 00:00:00* Test Item Value Reference Range Interpretation Comme nts TSH, THIRD GENERATION (test code = 2821) 1.950 UIU/ML [id number] 00:00:00* Test Item Value Reference Range Interpretation Comme nts TSH, THIRD GENERATION (test code = 2821) 1.950 UIU/ML Juan Richard AustinTHYROID II PROFILE (T3U, T4, T7, TSH)2019-11-27 00:00:00* Test Item Value Reference Range Interpretation Comme nts T-UPTAKE (test code = 2817) 36.1 % THYROX. BIND. CAPAC. (test c ode = 51957) 0.9 T4 (THYROXINE) (test code = 2819) 11.7 UG/DL CORRECTED T4 (FTI) (test cod e = 2820) 13.0 UG/DL TSH, THIRD GENERATION (test code = 2821) 0.075 UIU/ML Juan SantanaVITAMIN D, 25 [id number] 00:00:00* Test Item Value Reference Range Interpretation Comme nts VITAMIN D, 25 OH (test code = 4958) 48 NG/ML Juan Richard AustinTHYROID II PROFILE (T3U, T4, T7, TSH)2019-11-27 00:00:00* Test Item Value Reference Range Interpretation Comme nts T-UPTAKE (test code = 2817) 36.1 % THYROX. BIND. CAPAC. (test c ode = 41685) 0.9 T4 (THYROXINE) (test code = 2819) 11.7 UG/DL CORRECTED T4 (FTI) (test cod e = 2820) 13.0 UG/DL TSH, THIRD GENERATION (test code = 2821) 0.075 UIU/ML Juan SantanaVITAMIN D, 25 [id number] 00:00:00* Test Item Value Reference Range Interpretation Comme nts VITAMIN D, 25 OH (test code = 4958) 48 NG/ML Juan Richard AustinTHYROID II PROFILE (T3U, T4, T7, TSH)2019-11-27 00:00:00* Test Item Value Reference Range Interpretation Comme nts T-UPTAKE (test code = 2817) 36.1 % THYROX. BIND. CAPAC. (test c ode = 83405) 0.9 T4 (THYROXINE) (test code = 2819) 11.7 UG/DL CORRECTED T4 (FTI) (test cod e = 2820) 13.0 UG/DL TSH, THIRD GENERATION (test code = 2821) 0.075 UIU/ML Juan SantanaVITAMIN D, 25 [id number] 00:00:00* Test Item Value Reference Range Interpretation Comme nts VITAMIN D, 25 OH (test code = 4958) 48 NG/ML Juan Richard AustinTHYROID II PROFILE (T3U, T4, T7, TSH)2019-11-27 00:00:00* Test Item Value Reference Range Interpretation Comme nts T-UPTAKE (test code = 2817) 36.1 % THYROX. BIND. CAPAC. (test c ode = 71220) 0.9 T4 (THYROXINE) (test code = 2819) 11.7 UG/DL CORRECTED T4 (FTI) (test cod e = 2820) 13.0 UG/DL TSH, THIRD GENERATION (test code = 2821) 0.075 UIU/ML Juan SantanaVITAMIN D, 25 [id number] 00:00:00* Test Item Value Reference Range Interpretation Comme nts VITAMIN D, 25 OH (test code = 4958) 48 NG/ML THYROID II PROFILE (T3U, T4, T7, TSH)2019-11-27 00:00:00* Test Item Value Reference Range Interpretation Comme nts T-UPTAKE (test code = 2817) 36.1 % THYROX. BIND. CAPAC. (test c ode = 17594) 0.9 T4 (THYROXINE) (test code = 2819) 11.7 UG/DL CORRECTED T4 (FTI) (test cod e = 2820) 13.0 UG/DL TSH, THIRD GENERATION (test code = 2821) 0.075 UIU/ML VITAMIN D, 25 [id number] 00:00:00* Test Item Value Reference Range Interpretation Comme nts VITAMIN D, 25 OH (test code = 4958) 48 NG/ML Juan Richard AustinTHYROID II PROFILE (T3U, T4, T7, TSH)2019-11-27 00:00:00* Test Item Value Reference Range Interpretation Comme nts T-UPTAKE (test code = 2817) 36.1 % THYROX. BIND. CAPAC. (test c ode = 56996) 0.9 T4 (THYROXINE) (test code = 2819) 11.7 UG/DL CORRECTED T4 (FTI) (test cod e = 2820) 13.0 UG/DL TSH, THIRD GENERATION (test code = 2821) 0.075 UIU/ML Juan SantanaVITAMIN D, 25 [id number] 00:00:00* Test Item Value Reference Range Interpretation Comme nts VITAMIN D, 25 OH (test code = 4958) 48 NG/ML VITAMIN D, 25 [id number] 00:00:00* Test Item Value Reference Range Interpretation Comme nts VITAMIN D, 25 OH (test code = 4958) 48 NG/ML Juan Richard GagetownTHYROID II PROFILE (T3U, T4, T7, TSH)2019-11-27 00:00:00* Test Item Value Reference Range Interpretation Comme nts T-UPTAKE (test code = 2816) 36.1 % THYROX. BIND. CAPAC. (test c ode = 14734) 0.9 T4 (THYROXINE) (test code = 2819) 11.7 UG/DL CORRECTED T4 (FTI) (test cod e = 2820) 13.0 UG/DL TSH, THIRD GENERATION (test code = 2821) 0.075 UIU/ML THYROID II PROFILE (T3U, T4, T7, TSH)2019-10-29 00:00:00* Test Item Value Reference Range Interpretation Comme nts T-UPTAKE (test code = 2817) 41.9 % THYROX. BIND. CAPAC. (test c ode = 10789) 0.7 T4 (THYROXINE) (test code = 2819) 13.5 UG/DL CORRECTED T4 (FTI) (test cod e = 2820) 19.3 UG/DL TSH, THIRD GENERATION (test code = 2821) 0.467 UIU/ML Juan Richard AustinTHYROID II PROFILE (T3U, T4, T7, TSH)2019-10-29 00:00:00* Test Item Value Reference Range Interpretation Comme nts T-UPTAKE (test code = 281) 41.9 % THYROX. BIND. CAPAC. (test c ode = 28327) 0.7 T4 (THYROXINE) (test code = 2819) 13.5 UG/DL CORRECTED T4 (FTI) (test cod e = 2820) 19.3 UG/DL TSH, THIRD GENERATION (test code = 2821) 0.467 UIU/ML Juan Richard AustinTHYROID II PROFILE (T3U, T4, T7, TSH)2019-10-29 00:00:00* Test Item Value Reference Range Interpretation Comme nts T-UPTAKE (test code = 2816) 41.9 % THYROX. BIND. CAPAC. (test c ode = 86243) 0.7 T4 (THYROXINE) (test code = 2819) 13.5 UG/DL CORRECTED T4 (FTI) (test cod e = 2820) 19.3 UG/DL TSH, THIRD GENERATION (test code = 2821) 0.467 UIU/ML Juan F AustinTHYROID II PROFILE (T3U, T4, T7, TSH)2019-10-29 00:00:00* Test Item Value Reference Range Interpretation Comme nts T-UPTAKE (test code = 281) 41.9 % THYROX. BIND. CAPAC. (test c ode = 56577) 0.7 T4 (THYROXINE) (test code = 2819) 13.5 UG/DL CORRECTED T4 (FTI) (test cod e = 2820) 19.3 UG/DL TSH, THIRD GENERATION (test code = 2821) 0.467 UIU/ML THYROID II PROFILE (T3U, T4, T7, TSH)2019-10-29 00:00:00* Test Item Value Reference Range Interpretation Comme nts T-UPTAKE (test code = 281) 41.9 % THYROX. BIND. CAPAC. (test c ode = 22141) 0.7 T4 (THYROXINE) (test code = 2819) 13.5 UG/DL CORRECTED T4 (FTI) (test cod e = 2820) 19.3 UG/DL TSH, THIRD GENERATION (test code = 2821) 0.467 UIU/ML Juan Richard MaxTHYROID II PROFILE (T3U, T4, T7, TSH)2019-10-29 00:00:00* Test Item Value Reference Range Interpretation Comme nts T-UPTAKE (test code = 2817) 41.9 % THYROX. BIND. CAPAC. (test c ode = 02867) 0.7 T4 (THYROXINE) (test code = 2819) 13.5 UG/DL CORRECTED T4 (FTI) (test cod e = 2820) 19.3 UG/DL TSH, THIRD GENERATION (test code = 2821) 0.467 UIU/ML THYROID II PROFILE (T3U, T4, T7, TSH)2019-10-29 00:00:00* Test Item Value Reference Range Interpretation Comme nts T-UPTAKE (test code = 2817) 41.9 % THYROX. BIND. CAPAC. (test c ode = 39301) 0.7 T4 (THYROXINE) (test code = 2819) 13.5 UG/DL CORRECTED T4 (FTI) (test cod e = 2820) 19.3 UG/DL TSH, THIRD GENERATION (test code = 2821) 0.467 UIU/ML Juan F MaxCOMPREHENSIVE METABOLIC [id number] 00:00:00* Test Item Value Reference Range Interpretation Comme nts GLUCOSE (test code = 2217) 93 MG/DL BUN (test code = 2208) 12 MG/DL CREATININE (test code = 2214) 1.12 MG/DL eGFR AMER. (test cod e = 40282) 73 ML/MIN/1.73 eGFR NON- AMER. (test code = 52899) 63 ML/MIN/1.73 CALC BUN/CREAT (test code = [...] ALT (test code = 2219) 14 U/L Juan SantanaCBC W/AUTO [id number] 00:00:00* Test Item Value Reference Range Interpretation [...] (test code = 1015) 228 K/UL HEMOGLOBIN [id number] 00:00:00* Test Item Value Reference Range Interpretation Comme nts HEMOGLOBIN A1c (test code = 99975) 5.4 % CBC W/AUTO [id number] 00:00:00* Test Item Value Reference Range Interpretation [...] COUNT (test code = 1015) 228 K/UL Juan SantanaLIPID [id number] 00:00:00* Test Item Value Reference Range Interpretation Comme nts CHOLESTEROL (test code = 2210) 184 MG/DL TRIGLYCERIDES (test code = 2232) 95 MG/DL HDL CHOLESTEROL (test code = 2220) 51 MG/DL CALC LDL CHOL (test code = 2237) 114 MG/DL RISK RATIO LDL/HDL (test cod e = 2238) 2.24 RATIO [id number] 00:00:00* Test Item Value Reference Range Interpretation Comme [facility] TSH, THIRD GENERATION (test code = 2821) 2.720 UIU/ML HEMOGLOBIN [id number] 00:00:00* Test Item Value Reference Range Interpretation Comme [facility] HEMOGLOBIN A1c (test code = 36210) 5.4 % Juan SantanaVITAMIN B 12 AND FOLIC [id number] 00:00:00* Test Item Value Reference Range Interpretation Comme [facility] VITAMIN B-12 (test code = 2840) >2000 PG/ML FOLIC ACID (test code = 2695) 5.4 UG/L VITAMIN D, 25 [id number] 00:00:00* Test Item Value Reference Range Interpretation Comme [facility] VITAMIN D, 25 OH (test code = 4958) 24 NG/ML COMPREHENSIVE METABOLIC [id number] 00:00:00* Test Item Value Reference Range Interpretation Comme nts GLUCOSE (test code = 2217) 93 MG/DL BUN (test code = 2208) 12 MG/DL CREATININE (test code = 2214) 1.12 MG/DL eGFR AMER. (test cod e = 72596) 73 ML/MIN/1.73 eGFR NON- AMER. (test code = 14761) 63 ML/MIN/1.73 CALC BUN/CREAT (test code = [...] (test code = 2219) 14 U/L LIPID [id number] 00:00:00* Test Item Value Reference Range Interpretation Comme nts CHOLESTEROL (test code = 2210) 184 MG/DL TRIGLYCERIDES (test code = 2232) 95 MG/DL HDL CHOLESTEROL (test code = 2220) 51 MG/DL CALC LDL CHOL (test code = 2237) 114 MG/DL RISK RATIO LDL/HDL (test cod e = 2238) 2.24 RATIO Juan [id number] 00:00:00* Test Item Value Reference Range Interpretation Comme [facility] TSH, THIRD GENERATION (test code = 2821) 2.720 UIU/ML Juan SantanaVITAMIN B 12 AND FOLIC [id number] 00:00:00* Test Item Value Reference Range Interpretation Comme [facility] VITAMIN B-12 (test code = 2840) >2000 PG/ML FOLIC ACID (test code = 2695) 5.4 UG/L Juan SantanaVITAMIN D, 25 [id number] 00:00:00* Test Item Value Reference Range Interpretation Comme [facility] VITAMIN D, 25 OH (test code = 4958) 24 NG/ML Juan SantanaCOMPREHENSIVE METABOLIC [id number] 00:00:00* Test Item Value Reference Range Interpretation Comme nts GLUCOSE (test code = 2217) 93 MG/DL BUN (test code = 2208) 12 MG/DL CREATININE (test code = 2214) 1.12 MG/DL eGFR AMER. (test cod e = 26368) 73 ML/MIN/1.73 eGFR NON- AMER. (test code = 60981) 63 ML/MIN/1.73 CALC BUN/CREAT (test code = [...] ALT (test code = 2219) 14 U/L Juan SantanaCBC W/AUTO [id number] 00:00:00* Test Item Value Reference Range Interpretation [...] COUNT (test code = 1015) 228 K/UL Juan SantanaHEMOGLOBIN [id number] 00:00:00* Test Item Value Reference Range Interpretation Comme [facility] HEMOGLOBIN A1c (test code = 18286) 5.4 % Juan SantanaLIPID [id number] 00:00:00* Test Item Value Reference Range Interpretation Comme nts CHOLESTEROL (test code = 2210) 184 MG/DL TRIGLYCERIDES (test code = 2232) 95 MG/DL HDL CHOLESTEROL (test code = 2220) 51 MG/DL CALC LDL CHOL (test code = 2237) 114 MG/DL RISK RATIO LDL/HDL (test cod e = 2238) 2.24 RATIO Juan [id number] 00:00:00* Test Item Value Reference Range Interpretation Comme [facility] TSH, THIRD GENERATION (test code = 2821) 2.720 UIU/ML Juan SantanaVITAMIN B 12 AND FOLIC [id number] 00:00:00* Test Item Value Reference Range Interpretation Comme [facility] VITAMIN B-12 (test code = 2840) >2000 PG/ML FOLIC ACID (test code = 2695) 5.4 UG/L Juan SantanaVITAMIN D, 25 [id number] 00:00:00* Test Item Value Reference Range Interpretation Comme [facility] VITAMIN D, 25 OH (test code = 4958) 24 NG/ML Juan SantanaCOMPREHENSIVE METABOLIC [id number] 00:00:00* Test Item Value Reference Range Interpretation Comme nts GLUCOSE (test code = 2217) 93 MG/DL BUN (test code = 2208) 12 MG/DL CREATININE (test code = 2214) 1.12 MG/DL eGFR AMER. (test cod e = 67561) 73 ML/MIN/1.73 eGFR NON- AMER. (test code = 01754) 63 ML/MIN/1.73 CALC BUN/CREAT (test code = [...] ALT (test code = 2219) 14 U/L Juan SantanaCBC W/AUTO [id number] 00:00:00* Test Item Value Reference Range Interpretation [...] COUNT (test code = 1015) 228 K/UL Juan SantanaHEMOGLOBIN [id number] 00:00:00* Test Item Value Reference Range Interpretation Comme [facility] HEMOGLOBIN A1c (test code = 24974) 5.4 % Juan SantanaLIPID [id number] 00:00:00* Test Item Value Reference Range Interpretation Comme nts CHOLESTEROL (test code = 2210) 184 MG/DL TRIGLYCERIDES (test code = 2232) 95 MG/DL HDL CHOLESTEROL (test code = 2220) 51 MG/DL CALC LDL CHOL (test code = 2237) 114 MG/DL RISK RATIO LDL/HDL (test cod e = 2238) 2.24 RATIO Juan [id number] 00:00:00* Test Item Value Reference Range Interpretation Comme [facility] TSH, THIRD GENERATION (test code = 2821) 2.720 UIU/ML Juan SantanaVITAMIN B 12 AND FOLIC [id number] 00:00:00* Test Item Value Reference Range Interpretation Comme [facility] VITAMIN B-12 (test code = 2840) >2000 PG/ML FOLIC ACID (test code = 2695) 5.4 UG/L Juan SantanaVITAMIN D, 25 [id number] 00:00:00* Test Item Value Reference Range Interpretation Comme [facility] VITAMIN D, 25 OH (test code = 4958) 24 NG/ML Juan Richard MaxCOMPREHENSIVE METABOLIC [id number] 00:00:00* Test Item Value Reference Range Interpretation Comme nts GLUCOSE (test code = 2217) 93 MG/DL BUN (test code = 2208) 12 MG/DL CREATININE (test code = 2214) 1.12 MG/DL eGFR AMER. (test cod e = 29751) 73 ML/MIN/1.73 eGFR NON- AMER. (test code = 11263) 63 ML/MIN/1.73 CALC BUN/CREAT (test code = [...] ALT (test code = 2219) 14 U/L Juan SantanaCBC W/AUTO [id number] 00:00:00* Test Item Value Reference Range Interpretation [...] COUNT (test code = 1015) 228 K/UL Juan SantanaHEMOGLOBIN [id number] 00:00:00* Test Item Value Reference Range Interpretation Comme nts HEMOGLOBIN A1c (test code = 11270) 5.4 % Juan SantanaLIPID [id number] 00:00:00* Test Item Value Reference Range Interpretation Comme nts CHOLESTEROL (test code = 2210) 184 MG/DL TRIGLYCERIDES (test code = 2232) 95 MG/DL HDL CHOLESTEROL (test code = 2220) 51 MG/DL CALC LDL CHOL (test code = 2237) 114 MG/DL RISK RATIO LDL/HDL (test cod e = 2238) 2.24 RATIO Juan [id number] 00:00:00* Test Item Value Reference Range Interpretation Comme nts TSH, THIRD GENERATION (test code = 2821) 2.720 UIU/ML Juan SantanaVITAMIN B 12 AND FOLIC [id number] 00:00:00* Test Item Value Reference Range Interpretation Comme nts VITAMIN B-12 (test code = 2840) >2000 PG/ML FOLIC ACID (test code = 2695) 5.4 UG/L Juan SantanaVITAMIN D, 25 [id number] 00:00:00* Test Item Value Reference Range Interpretation Comme [facility] VITAMIN D, 25 OH (test code = 4958) 24 NG/ML Juan SantanaCBC W/AUTO [id number] 00:00:00* Test Item Value Reference Range Interpretation [...] (test code = 1015) 228 K/UL HEMOGLOBIN [id number] 00:00:00* Test Item Value Reference Range Interpretation Comme nts HEMOGLOBIN A1c (test code = 67292) 5.4 % COMPREHENSIVE METABOLIC [id number] 00:00:00* Test Item Value Reference Range Interpretation Comme nts GLUCOSE (test code = 2217) 93 MG/DL BUN (test code = 2208) 12 MG/DL CREATININE (test code = 2214) 1.12 MG/DL eGFR AMER. (test cod e = 62978) 73 ML/MIN/1.73 eGFR NON- AMER. (test code = 55187) 63 ML/MIN/1.73 CALC BUN/CREAT (test code = [...] ALT (test code = 2219) 14 U/L Juan F AustinLIPID [id number] 00:00:00* Test Item Value Reference Range Interpretation Comme nts CHOLESTEROL (test code = 2210) 184 MG/DL TRIGLYCERIDES (test code = 2232) 95 MG/DL HDL CHOLESTEROL (test code = 2220) 51 MG/DL CALC LDL CHOL (test code = 2237) 114 MG/DL RISK RATIO LDL/HDL (test cod e = 2238) 2.24 RATIO CBC W/AUTO [id number] 00:00:00* Test Item Value Reference Range Interpretation [...] COUNT (test code = 1015) 228 K/UL Juan [id number] 00:00:00* Test Item Value Reference Range Interpretation Comme nts TSH, THIRD GENERATION (test code = 2821) 2.720 UIU/ML VITAMIN B 12 AND FOLIC [id number] 00:00:00* Test Item Value Reference Range Interpretation Comme nts VITAMIN B-12 (test code = 2840) >2000 PG/ML FOLIC ACID (test code = 2695) 5.4 UG/L VITAMIN D, 25 [id number] 00:00:00* Test Item Value Reference Range Interpretation Comme nts VITAMIN D, 25 OH (test code = 4958) 24 NG/ML HEMOGLOBIN [id number] 00:00:00* Test Item Value Reference Range Interpretation Comme nts HEMOGLOBIN A1c (test code = 66993) 5.4 % Juan SantanaLIPID [id number] 00:00:00* Test Item Value Reference Range Interpretation Comme nts CHOLESTEROL (test code = 2210) 184 MG/DL TRIGLYCERIDES (test code = 2232) 95 MG/DL HDL CHOLESTEROL (test code = 2220) 51 MG/DL CALC LDL CHOL (test code = 2237) 114 MG/DL RISK RATIO LDL/HDL (test cod e = 2238) 2.24 RATIO Juan SantanaCOMPREHENSIVE METABOLIC [id number] 00:00:00* Test Item Value Reference Range Interpretation Comme nts GLUCOSE (test code = 2217) 93 MG/DL BUN (test code = 2208) 12 MG/DL CREATININE (test code = 2214) 1.12 MG/DL eGFR AMER. (test cod e = 35122) 73 ML/MIN/1.73 eGFR NON- AMER. (test code = 27030) 63 ML/MIN/1.73 CALC BUN/CREAT (test code = [...] ALT (test code = 2219) 14 U/L [id number] 00:00:00* Test Item Value Reference Range Interpretation Comme [facility] TSH, THIRD GENERATION (test code = 2821) 2.720 UIU/ML Juan SantanaVITAMIN B 12 AND FOLIC [id number] 00:00:00* Test Item Value Reference Range Interpretation Comme [facility] VITAMIN B-12 (test code = 2840) >2000 PG/ML FOLIC ACID (test code = 2695) 5.4 UG/L Juan SantanaVITAMIN D, 25 [id number] 00:00:00* Test Item Value Reference Range Interpretation Comme [facility] VITAMIN D, 25 OH (test code = 4958) 24 NG/ML Juan SantanaCOMPREHENSIVE METABOLIC [id number] 00:00:00* Test Item Value Reference Range Interpretation Comme nts GLUCOSE (test code = 2217) 87 MG/DL BUN (test code = 2208) 19 MG/DL CREATININE (test code = 2214) 1.13 MG/DL eGFR AMER. (test cod e = 42941) 73 ML/MIN/1.73 eGFR NON- AMER. (test code = 94294) 63 ML/MIN/1.73 CALC BUN/CREAT (test code = [...] ALT (test code = 2219) 10 U/L Juan SantanaCBC W/AUTO [id number] 00:00:00* Test Item Value Reference Range Interpretation [...] COUNT (test code = 1015) 300 K/UL LIPID [id number] 00:00:00* Test Item Value Reference Range Interpretation Comme nts CHOLESTEROL (test code = 2210) 206 MG/DL TRIGLYCERIDES (test code = 2232) 94 MG/DL HDL CHOLESTEROL (test code = 2220) 61 MG/DL CALC LDL CHOL (test code = 2237) 126 MG/DL RISK RATIO LDL/HDL (test cod e = 2238) 2.07 RATIO Juan SantanaHEMOGLOBIN [id number] 00:00:00* Test Item Value Reference Range Interpretation Comme nts HEMOGLOBIN A1c (test code = 68337) 5.7 % [id number] 00:00:00* Test Item Value Reference Range Interpretation Comme nts TSH (test code = 2821) 1.3 UIU/ML CBC W/AUTO [id number] 00:00:00* Test Item Value Reference Range Interpretation [...] EOSINOPHILS (test code = 1012) 2 % PLATELET COUNT (test code = 1015) 300 K/UL Juan SantanaHEMOGLOBIN [id number] 00:00:00* Test Item Value Reference Range Interpretation Comme [facility] HEMOGLOBIN A1c (test code = 30703) 5.7 % Juan Richard MaxCOMPREHENSIVE METABOLIC [id number] 00:00:00* Test Item Value Reference Range Interpretation Comme nts GLUCOSE (test code = 2217) 87 MG/DL BUN (test code = 2208) 19 MG/DL CREATININE (test code = 2214) 1.13 MG/DL eGFR AMER. (test cod e = 79208) 73 ML/MIN/1.73 eGFR NON- AMER. (test code = 03774) 63 ML/MIN/1.73 CALC BUN/CREAT (test code = [...] ALT (test code = 2219) 10 U/L [id number] 00:00:00* Test Item Value Reference Range Interpretation Comme nts TSH (test code = 2821) 1.3 UIU/ML Juan SantanaCOMPREHENSIVE METABOLIC [id number] 00:00:00* Test Item Value Reference Range Interpretation Comme nts GLUCOSE (test code = 2217) 87 MG/DL BUN (test code = 2208) 19 MG/DL CREATININE (test code = 2214) 1.13 MG/DL eGFR AMER. (test cod e = 21640) 73 ML/MIN/1.73 eGFR NON- AMER. (test code = 94584) 63 ML/MIN/1.73 CALC BUN/CREAT (test code = [...] ALT (test code = 2219) 10 U/L Juan SantanaLIPID [id number] 00:00:00* Test Item Value Reference Range Interpretation Comme nts CHOLESTEROL (test code = 2210) 206 MG/DL TRIGLYCERIDES (test code = 2232) 94 MG/DL HDL CHOLESTEROL (test code = 2220) 61 MG/DL CALC LDL CHOL (test code = 2237) 126 MG/DL RISK RATIO LDL/HDL (test cod e = 2238) 2.07 RATIO Juan SantanaCBC W/AUTO [id number] 00:00:00* Test Item Value Reference Range Interpretation [...] EOSINOPHILS (test code = 1012) 2 % PLATELET COUNT (test code = 1015) 300 K/UL Juan SantanaHEMOGLOBIN [id number] 00:00:00* Test Item Value Reference Range Interpretation Comme [facility] HEMOGLOBIN A1c (test code = 56869) 5.7 % Juan Rcihard [id number] 00:00:00* Test Item Value Reference Range Interpretation Comme nts TSH (test code = 2821) 1.3 UIU/ML Juan SantanaCOMPREHENSIVE METABOLIC [id number] 00:00:00* Test Item Value Reference Range Interpretation Comme nts GLUCOSE (test code = 2217) 87 MG/DL BUN (test code = 2208) 19 MG/DL CREATININE (test code = 2214) 1.13 MG/DL eGFR AMER. (test cod e = 57406) 73 ML/MIN/1.73 eGFR NON- AMER. (test code = 19339) 63 ML/MIN/1.73 CALC BUN/CREAT (test code = [...] ALT (test code = 2219) 10 U/L Juan SantanaLIPID [id number] 00:00:00* Test Item Value Reference Range Interpretation Comme nts CHOLESTEROL (test code = 2210) 206 MG/DL TRIGLYCERIDES (test code = 2232) 94 MG/DL HDL CHOLESTEROL (test code = 2220) 61 MG/DL CALC LDL CHOL (test code = 2237) 126 MG/DL RISK RATIO LDL/HDL (test cod e = 2238) 2.07 RATIO Juan SantanaCBC W/AUTO [id number] 00:00:00* Test Item Value Reference Range Interpretation [...] EOSINOPHILS (test code = 1012) 2 % PLATELET COUNT (test code = 1015) 300 K/UL Juan SantanaHEMOGLOBIN [id number] 00:00:00* Test Item Value Reference Range Interpretation Comme nts HEMOGLOBIN A1c (test code = 07977) 5.7 % Juan [id number] 00:00:00* Test Item Value Reference Range Interpretation Comme nts TSH (test code = 2821) 1.3 UIU/ML Juan SantanaCOMPREHENSIVE METABOLIC [id number] 00:00:00* Test Item Value Reference Range Interpretation Comme nts GLUCOSE (test code = 2217) 87 MG/DL BUN (test code = 2208) 19 MG/DL CREATININE (test code = 2214) 1.13 MG/DL eGFR AMER. (test cod e = 47386) 73 ML/MIN/1.73 eGFR NON- AMER. (test code = 15603) 63 ML/MIN/1.73 CALC BUN/CREAT (test code = [...] ALT (test code = 2219) 10 U/L Juan SantanaLIPID [id number] 00:00:00* Test Item Value Reference Range Interpretation Comme nts CHOLESTEROL (test code = 2210) 206 MG/DL TRIGLYCERIDES (test code = 2232) 94 MG/DL HDL CHOLESTEROL (test code = 2220) 61 MG/DL CALC LDL CHOL (test code = 2237) 126 MG/DL RISK RATIO LDL/HDL (test cod e = 2238) 2.07 RATIO Juan SantanaCBC W/AUTO [id number] 00:00:00* Test Item Value Reference Range Interpretation [...] EOSINOPHILS (test code = 1012) 2 % PLATELET COUNT (test code = 1015) 300 K/UL Juan SantanaHEMOGLOBIN [id number] 00:00:00* Test Item Value Reference Range Interpretation Comme [facility] HEMOGLOBIN A1c (test code = 06606) 5.7 % Juan [id number] 00:00:00* Test Item Value Reference Range Interpretation Comme [facility] TSH (test code = 2821) 1.3 UIU/ML Juan SantanaCOMPREHENSIVE METABOLIC [id number] 00:00:00* Test Item Value Reference Range Interpretation Comme nts GLUCOSE (test code = 2217) 87 MG/DL BUN (test code = 2208) 19 MG/DL CREATININE (test code = 2214) 1.13 MG/DL eGFR AMER. (test cod e = 36462) 73 ML/MIN/1.73 eGFR NON- AMER. (test code = 18586) 63 ML/MIN/1.73 CALC BUN/CREAT (test code = [...] ALT (test code = 2219) 10 U/L Juan SantanaLIPID [id number] 00:00:00* Test Item Value Reference Range Interpretation Comme nts CHOLESTEROL (test code = 2210) 206 MG/DL TRIGLYCERIDES (test code = 2232) 94 MG/DL HDL CHOLESTEROL (test code = 2220) 61 MG/DL CALC LDL CHOL (test code = 2237) 126 MG/DL RISK RATIO LDL/HDL (test cod e = 2238) 2.07 RATIO CBC W/AUTO [id number] 00:00:00* Test Item Value Reference Range Interpretation [...] (test code = 1015) 300 K/UL HEMOGLOBIN [id number] 00:00:00* Test Item Value Reference Range Interpretation Comme nts HEMOGLOBIN A1c (test code = 30474) 5.7 % [id number] 00:00:00* Test Item Value Reference Range Interpretation Comme nts TSH (test code = 2821) 1.3 UIU/ML LIPID [id number] 00:00:00* Test Item Value Reference Range Interpretation Comme nts CHOLESTEROL (test code = 2210) 206 MG/DL TRIGLYCERIDES (test code = 2232) 94 MG/DL HDL CHOLESTEROL (test code = 2220) 61 MG/DL CALC LDL CHOL (test code = 2237) 126 MG/DL RISK RATIO LDL/HDL (test cod e = 2238) 2.07 RATIO Juan Hilary SantanaCBC W/AUTO [id number] 00:00:00* Test Item Value Reference Range Interpretation [...] EOSINOPHILS (test code = 1012) 2 % PLATELET COUNT (test code = 1015) 300 K/UL Juan SantanaCOMPREHENSIVE METABOLIC [id number] 00:00:00* Test Item Value Reference Range Interpretation Comme nts GLUCOSE (test code = 2217) 87 MG/DL BUN (test code = 2208) 19 MG/DL CREATININE (test code = 2214) 1.13 MG/DL eGFR AMER. (test cod e = 20307) 73 ML/MIN/1.73 eGFR NON- AMER. (test code = 49126) 63 ML/MIN/1.73 CALC BUN/CREAT (test code = [...] ALT (test code = 2219) 10 U/L HEMOGLOBIN [id number] 00:00:00* Test Item Value Reference Range Interpretation Comme nts HEMOGLOBIN A1c (test code = 30836) 5.7 % Juan Richard [id number] 00:00:00* Test Item Value Reference Range Interpretation Comme nts TSH (test code = 2821) 1.3 UIU/ML Juan SantanaLIPID [id number] 00:00:00* Test Item Value Reference Range Interpretation Comme nts CHOLESTEROL (test code = 2210) 206 MG/DL TRIGLYCERIDES (test code = 2232) 94 MG/DL HDL CHOLESTEROL (test code = 2220) 61 MG/DL CALC LDL CHOL (test code = 2237) 126 MG/DL RISK RATIO LDL/HDL (test cod e = 2238) 2.07 RATIO LIPID [id number] 00:00:00* Test Item Value Reference Range Interpretation Comme nts CHOLESTEROL (test code = 2210) 195 MG/DL TRIGLYCERIDES (test code = 2232) 98 MG/DL HDL CHOLESTEROL (test code = 2220) 50 MG/DL CALCULATED LDL CHOL (test co de = 2237) 125 MG/DL RISK RATIO LDL/HDL (test cod e = 2238) 2.51 RATIO CBC W/AUTO [id number] 00:00:00* Test Item Value Reference Range Interpretation [...] EOSINOPHILS (test code = 1012) 2 % PLATELET COUNT (test code = 1015) 267 K/UL Juan [id number] 00:00:00* Test Item Value Reference Range Interpretation Comme nts TSH (test code = 2821) 3.6 UIU/ML Juan SantanaCOMPREHENSIVE METABOLIC [id number] 00:00:00* Test Item Value Reference Range Interpretation Comme nts GLUCOSE (test code = 2217) 86 MG/DL BUN (test code = 2208) 13 MG/DL CREATININE (test code = 2214) 1.1 MG/DL eGFR AMER. (test cod e = 06695) 69 ML/MIN/1.73 eGFR NON- AMER. (test code = 26760) 57 ML/MIN/1.73 CALCULATED BUN/CREAT (test code = [...] 0.6 MG/DL ALKALINE PHOSPHATASE (test code = 220) 66 U/L SGOT (AST) (test code = 2218) 13 U/L SGPT (ALT) (test code = 221) 8 U/L LIPID [id number] 00:00:00* Test Item Value Reference Range Interpretation Comme nts CHOLESTEROL (test code = 2210) 195 MG/DL TRIGLYCERIDES (test code = 2232) 98 MG/DL HDL CHOLESTEROL (test code = 2220) 50 MG/DL CALCULATED LDL CHOL (test co de = 223) 125 MG/DL RISK RATIO LDL/HDL (test cod e = 2238) 2.51 RATIO Juan F MaxCOMPREHENSIVE METABOLIC [id number] 00:00:00* Test Item Value Reference Range Interpretation Comme nts GLUCOSE (test code = 2217) 86 MG/DL BUN (test code = 8) 13 MG/DL CREATININE (test code = 2214) 1.1 MG/DL eGFR AMER. (test cod e = 82702) 69 ML/MIN/1.73 eGFR NON- AMER. (test code = 13090) 57 ML/MIN/1.73 CALCULATED BUN/CREAT (test code = 2235) 12 RATIO SODIUM (test code = 2231) 140 MEQ/L POTASSIUM (test code = 2228) 4.4 MEQ/L CHLORIDE (test code = 2215) 100 MEQ/L CARBON DIOXIDE (test code = 6) 28 MEQ/L CALCIUM (test code = 2209) [...] (ALT) (test code = 2219) 8 U/L Juan SantanaC W/AUTO [id number] 00:00:00* Test Item Value Reference Range Interpretation [...] EOSINOPHILS (test code = 1012) 2 % PLATELET COUNT (test code = 1015) 267 K/UL Juan [id number] 00:00:00* Test Item Value Reference Range Interpretation Comme nts TSH (test code = 2821) 3.6 UIU/ML Juan SantanaLIPID [id number] 00:00:00* Test Item Value Reference Range Interpretation Comme nts CHOLESTEROL (test code = 2210) 195 MG/DL TRIGLYCERIDES (test code = 2232) 98 MG/DL HDL CHOLESTEROL (test code = 2220) 50 MG/DL CALCULATED LDL CHOL (test co de = 2237) 125 MG/DL RISK RATIO LDL/HDL (test cod e = 2238) 2.51 RATIO Juan SanatnaCOMPREHENSIVE METABOLIC [id number] 00:00:00* Test Item Value Reference Range Interpretation Comme nts GLUCOSE (test code = 2217) 86 MG/DL BUN (test code = 2208) 13 MG/DL CREATININE (test code = 2214) 1.1 MG/DL eGFR AMER. (test cod e = 90350) 69 ML/MIN/1.73 eGFR NON- AMER. (test code = 54657) 57 ML/MIN/1.73 CALCULATED BUN/CREAT (test code = [...] (ALT) (test code = 2219) 8 U/L Juan SantanaCBC W/AUTO [id number] 00:00:00* Test Item Value Reference Range Interpretation [...] EOSINOPHILS (test code = 1012) 2 % PLATELET COUNT (test code = 1015) 267 K/UL Juan Richard [id number] 00:00:00* Test Item Value Reference Range Interpretation Comme nts TSH (test code = 2821) 3.6 UIU/ML Juan SantanaLIPID [id number] 00:00:00* Test Item Value Reference Range Interpretation Comme nts CHOLESTEROL (test code = 2210) 195 MG/DL TRIGLYCERIDES (test code = 2232) 98 MG/DL HDL CHOLESTEROL (test code = 2220) 50 MG/DL CALCULATED LDL CHOL (test co de = 2237) 125 MG/DL RISK RATIO LDL/HDL (test cod e = 2238) 2.51 RATIO Juan SantanaCOMPREHENSIVE METABOLIC [id number] 00:00:00* Test Item Value Reference Range Interpretation Comme nts GLUCOSE (test code = 2217) 86 MG/DL BUN (test code = 2208) 13 MG/DL CREATININE (test code = 2214) 1.1 MG/DL eGFR AMER. (test cod e = 84309) 69 ML/MIN/1.73 eGFR NON- AMER. (test code = 96684) 57 ML/MIN/1.73 CALCULATED BUN/CREAT (test code = [...] (ALT) (test code = 2219) 8 U/L Juan Richard MaxCBC W/AUTO [id number] 00:00:00* Test Item Value Reference Range Interpretation [...] EOSINOPHILS (test code = 1012) 2 % PLATELET COUNT (test code = 1015) 267 K/UL Juan [id number] 00:00:00* Test Item Value Reference Range Interpretation Comme nts TSH (test code = 2821) 3.6 UIU/ML Juan SantanaLIPID [id number] 00:00:00* Test Item Value Reference Range Interpretation Comme nts CHOLESTEROL (test code = 2210) 195 MG/DL TRIGLYCERIDES (test code = 2232) 98 MG/DL HDL CHOLESTEROL (test code = 2220) 50 MG/DL CALCULATED LDL CHOL (test co de = 2237) 125 MG/DL RISK RATIO LDL/HDL (test cod e = 2238) 2.51 RATIO Juan SantanaCOMPREHENSIVE METABOLIC [id number] 00:00:00* Test Item Value Reference Range Interpretation Comme nts GLUCOSE (test code = 2217) 86 MG/DL BUN (test code = 2208) 13 MG/DL CREATININE (test code = 2214) 1.1 MG/DL eGFR AMER. (test cod e = 77253) 69 ML/MIN/1.73 eGFR NON- AMER. (test code = 27746) 57 ML/MIN/1.73 CALCULATED BUN/CREAT (test code = [...] (ALT) (test code = 2219) 8 U/L Juan SantanaCBC W/AUTO [id number] 00:00:00* Test Item Value Reference Range Interpretation [...] COUNT (test code = 1015) 267 K/UL [id number] 00:00:00* Test Item Value Reference Range Interpretation Comme nts TSH (test code = 2821) 3.6 UIU/ML CBC W/AUTO [id number] 00:00:00* Test Item Value Reference Range Interpretation [...] EOSINOPHILS (test code = 1012) 2 % PLATELET COUNT (test code = 1015) 267 K/UL Juan [id number] 00:00:00* Test Item Value Reference Range Interpretation Comme nts TSH (test code = 2821) 3.6 UIU/ML Juan SantanaLIPID [id number] 00:00:00* Test Item Value Reference Range Interpretation Comme nts CHOLESTEROL (test code = 2210) 195 MG/DL TRIGLYCERIDES (test code = 2232) 98 MG/DL HDL CHOLESTEROL (test code = 2220) 50 MG/DL CALCULATED LDL CHOL (test co de = 223) 125 MG/DL RISK RATIO LDL/HDL (test cod e = 2238) 2.51 RATIO COMPREHENSIVE METABOLIC [id number] 00:00:00* Test Item Value Reference Range Interpretation Comme nts GLUCOSE (test code = 2217) 86 MG/DL BUN (test code = 2208) 13 MG/DL CREATININE (test code = 2214) 1.1 MG/DL eGFR AMER. (test cod e = 49130) 69 ML/MIN/1.73 eGFR NON- AMER. (test code = 20615) 57 ML/MIN/1.73 CALCULATED BUN/CREAT (test code = [...] (ALT) (test code = 2219) 8 U/L LIPID [id number] 00:00:00* Test Item Value Reference Range Interpretation Comme nts CHOLESTEROL (test code = 2210) 195 MG/DL TRIGLYCERIDES (test code = 2232) 98 MG/DL HDL CHOLESTEROL (test code = 2220) 50 MG/DL CALCULATED LDL CHOL (test co de = 223) 125 MG/DL RISK RATIO LDL/HDL (test cod e = 2238) 2.51 RATIO [facility] W/AUTO [id number] 00:00:00* Test Item Value Reference Range Interpretation [...] COUNT (test code = 1015) 267 K/UL COMPREHENSIVE METABOLIC [id number] 00:00:00* Test Item Value Reference Range Interpretation Comme nts GLUCOSE (test code = 2217) 86 MG/DL BUN (test code = 2208) 13 MG/DL CREATININE (test code = 2214) 1.1 MG/DL eGFR AMER. (test cod e = 56077) 69 ML/MIN/1.73 eGFR NON- AMER. (test code = 81302) 57 ML/MIN/1.73 CALCULATED BUN/CREAT (test code = [...] (ALT) (test code = 2219) 8 U/L Juan [id number] 00:00:00* Test Item Value Reference Range Interpretation Comme nts TSH (test code = 2821) 3.6 UIU/ML History and Physical Notes Date/Time Note Provider Source 2024-05-01 19:27:27 Obstetrical Admission History and Physical Chief Complaint: Contractions (today) and Rupture of Membranes (@ 1145 clear) Obstetrical History OB History Para Term AB Living 5 4 2 2 0 4 SAB IAB Ectopic Multiple Live Births 0 0 0 0 4 # Outcome Date GA Lbr Erick/2nd Weight Sex Type Anes PTL Lv 5 Current 4 2012 31w0d Vag-Spont Y SEAN Complications: Preeclampsia, severe, third trimester 3 Term 2007 Vag-Spont N SEAN 2 Term 2006 Vag-Spont N SEAN 1 1999 28w0d Vag-Spont EPI SEAN Gynecological History Lisbet experienced menarche at age and has a history of menses with no known gynecological problems. No LMP recorded. Patient is . Past Medical History The patient has a past medical history of Bladder prolapse, female, acquired, Gestational diabetes, Hypothyroid, and Preeclampsia, third trimester. Past Surgical History The patient has no past surgical history on file. Social History The patient reports that she has never smoked. She has never been exposed to tobacco smoke. She has never used smokeless tobacco. She reports that she does not drink alcohol and does not use drugs. Family History The patient's family history is not on file. Genetic History Genetic Screening No values documented Allergies Patient has no known allergies. Medications Home : Medications Prior to Admission Medication Sig Dispense Refill Last Dose/Taking aspirin EC 81 MG EC tablet Take 81 mg by mouth 1 time each day. 05/01/2024 levothyroxine (Synthroid, Levoxyl) 75 MCG tablet Take 75 mcg by mouth in the morning. Take before meals. 05/01/2024 metFORMIN (Glucophage) 500 MG tablet Take 500 mg by mouth at bedtime. 04/30/2024 multivitamin () 27-0.8 MG tablet Take 1 tablet by mouth 1 time each day. 04/30/2024 NIFEdipine CC (Adalat CC) 30 MG 24 hr tablet Take 30 mg by mouth in the morning. Take before meals. Do not crush, chew, or split. 05/01/2024 Current : New Medications Ordered This Visit Medications multivitamin () 27-0.8 MG tablet Sig: Take 1 tablet by mouth 1 time each day. metFORMIN (Glucophage) 500 MG tablet Sig: Take 500 mg by mouth at bedtime. NIFEdipine CC (Adalat CC) 30 MG 24 hr tablet Sig: Take 30 mg by mouth in the morning. Take before meals. Do not crush, chew, or split. levothyroxine (Synthroid, Levoxyl) 75 MCG tablet Sig: Take 75 mcg by mouth in the morning. Take before meals. aspirin EC 81 MG EC tablet Sig: Take 81 mg by mouth 1 time each day. oxytocin (Pitocin) 30 units in sodium chloride 0.9 % 500 mL 10 Units Infusion Type:: Non-titrate oxytocin (Pitocin) 30 units in sodium chloride 0.9 % 500 mL 20 Units Infusion Type:: Non-titrate butorphanol (Stadol) injection 1 mg butorphanol (Stadol) injection 2 mg multivitamin () 1 tablet terbutaline (Brethine) injection 0.25 mg lanolin (Lansinoh) cream benzocaine-menthol (Dermoplast) 20-0.5 % topical spray 1 spray measles, mumps and rubella (MMR) vaccine 0.5 mL sodium chloride 0.9 % bolus 300 mL sodium chloride 0.9 % infusion oxytocin (Pitocin) 30 units in sodium chloride 0.9 % 500 mL 30 Units Infusion Type:: Non-titrate oxytocin (Pitocin) injection 10 Units miSOPROStol (Cytotec) tablet 1,000 mcg methylergonovine (Methergine) injection 200 mcg diphenoxylate-atropine (Lomotil) 2.5-0.025 MG per tablet 2 tablet carboprost (Hemabate) injection 250 mcg tranexamic acid (Cyklokapron) 1,000 mg in sodium chloride 0.9 % 100 mL IVPB-MB+ Tranexamic Acid Indication: Hemorrhage: [employer] acetaminophen (Tylenol) tablet 1,000 mg famotidine (PF) (Pepcid) injection 20 mg ondansetron (Zofran) injection 4 mg citric acid-sodium citrate (Bicitra) solution 30 mL lanolin (Lansinoh) cream benzocaine-menthol (Chloraseptic) 6-10 MG lozenge 1 lozenge simethicone (Mylicon) chewable tablet 160 mg bisacodyl (Dulcolax) EC tablet 15 mg bisacodyl (Dulcolax) suppository 10 mg sodium phosphate (Fleets) enema 133 mL oxytocin (Pitocin) 30 units in sodium chloride 0.9 % 500 mL 30 Units Infusion Type:: Non-titrate oxytocin (Pitocin) injection 10 Units miSOPROStol (Cytotec) tablet 1,000 mcg methylergonovine (Methergine) injection 200 mcg diphenoxylate-atropine (Lomotil) 2.5-0.025 MG per tablet 2 tablet carboprost (Hemabate) injection 250 mcg tranexamic acid (Cyklokapron) 1,000 mg in sodium chloride 0.9 % 100 mL IVPB-MB+ Tranexamic Acid Indication: Hemorrhage: [employer] sodium chloride 0.9 % bolus 1,000 mL sodium chloride 0.9 % bolus 1,000 mL sodium chloride 0.9 % bolus 1,000 mL sodium chloride 0.9 % bolus 1,000 mL sodium chloride 0.9 % bolus 1,000 mL azithromycin (Zithromax) 500 mg in sodium chloride 0.9 % 250 mL IVPB (vial-mate) Suspected Indication (Select all that apply): Surgical Prophylaxis ceFAZolin Sodium (Ancef) 2 g in sterile water injection Suspected Indication (Select all that apply): Surgical Prophylaxis oxytocin (Pitocin) 30 units in sodium chloride 0.9 % 500 mL Infusion Type:: Non-titrate Review of Systems: Pertinent items are noted in HPI. A comprehensive Review of Systems was negative. Objective Physical Examination Vital Signs: BP 149/76 | Pulse 107 | Temp 36.6 ?C (97.8 ?F) (Oral) | Resp 16 | Ht 1.651 m (5' 5") | Wt 83.3 kg (183 lb 8.5 oz) | BMI 30.54 kg/m? GENERAL: Examination reveals a well developed, well nourished, gravid female . She is . HEENT: NECK: . LUNGS: . HEART: BREASTS: . ABDOMEN: soft, gravid, nontender, nondistended, no abnormal masses, no epigastric pain. FHR baseline is 130 bpm, with Moderate (6-25 BPM) variability and Present. tracing. The fetus is in a Vertex presentation. PELVIC: Vagina: normal appearing vagina with normal color and discharge and no lesions noted. Cervix: 2-3 /70/-2 . Membranes are SROM. EXTREMITIES: . Good muscle tone with no atrophy. SKIN: . NEUROLOGICAL: reflexes are . Normal sensation in all extremities. LYMPHATICS: . PSYCHOLOGICAL: . Lab Review: Labs: Results Some results may be outside of the current 's time frame (08/15/23 0000 to 05/01/24 1927). Test Specimen Source Result GA Date Blood Type O Positive 37w0d 05/01/24 1649 Hepatitis B Blood, Venous Negative Index 37w0d 05/01/24 1649 Hemoglobin Blood, Venous 13.3 g/dL 37w0d 05/01/24 1649 STD/HIV Risks: Pap Smears: Other Pertinent Labs : Assessment and Plan TREM GESTATION IN LABOR ANTICIPATING VAGINAL Complications: Augusto Moreno MD [facility] 2024-05-01 16:07:30 Obstetrics H&P LMP: No LMP recorded. Patient is . RAMYA: Estimated Date of Delivery: 05/22/24 EGA: 37w0d CC: ctx LOF HPI: Lisbet Teran is a 43 y.o. at 37w0d with A2GDM, preE, AMA who presents to triage for ctx and LOF. Denies VB. +FM. Review of Systems General: Denies fever, chills, night sweats HEENT: Denies\\ visual or hearing changes Skin: Denies\\ rashes, itching, lesions CV: Denies\\ chest pain or palpations Pulmonary: Denies\\ shortness of breath, dyspnea, cough Breasts: Denies masses, discharge, pain, tenderness GI: Denies nausea, vomiting, diarrhea or constipation : Denies dysuria, polyuria, gross hematuria, flank pain MS: Denies muscle pain or weakness Neuro: Denies seizures, numbness, tremors Vascular: Denies cramping or pain Psych: Denies depression, suicidal or homicidal ideations Heme: Denies easy bruising or bleeding PNC: [facility] POBHx: OB History Para Term AB Living 5 4 2 2 4 SAB IAB Ectopic Multiple Live Births 4 # Outcome Date GA Lbr Erick/2nd Weight Sex Type Anes PTL Lv 5 Current 4 2012 31w0d Vag-Spont Y SEAN Complications: Preeclampsia, severe, third trimester 3 Term 2008 Vag-Spont N SEAN 2 Term 2006 Vag-Spont N SEAN 1 1999 28w0d Vag-Spont EPI SEAN PMH: Past Medical History: Diagnosis Date Bladder prolapse, female, acquired Gestational diabetes Hypothyroid Preeclampsia, third trimester PSH: No past surgical history on file. FHx: No family history on file. SocHx: Social History Tobacco Use Smoking status: Never Passive exposure: Never Smokeless tobacco: Never Substance Use Topics Alcohol use: Never Drug use: Never Social History Substance and Sexual Activity Drug Use Never Meds: No current facility-administered medications on file prior to encounter. Current Outpatient Medications on File Prior to Encounter Medication Sig Dispense Refill aspirin EC 81 MG EC tablet Take 81 mg by mouth 1 time each day. levothyroxine (Synthroid, Levoxyl) 75 MCG tablet Take 75 mcg by mouth in the morning. Take before meals. metFORMIN (Glucophage) 500 MG tablet Take 500 mg by mouth at bedtime. multivitamin () 27-0.8 MG tablet Take 1 tablet by mouth 1 time each day. NIFEdipine CC (Adalat CC) 30 MG 24 hr tablet Take 30 mg by mouth in the morning. Take before meals. Do not crush, chew, or split. Allergies: No Known Allergies Physical Exam BP (!) 165/80 | Pulse 98 | Temp 36.6 ?C (97.8 ?F) (Oral) | Resp 16 | Ht 1.651 m (5' 5") | Wt 83.3 kg (183 lb 8.5 oz) | SpO2 98% | BMI 30.54 kg/m? Gen: A&O x 3, NAD, well appearing Resp: Regular respiratory effort Abd: soft, gravid, NTTP Ext: no clubbing, cyanosis or edema SSE exam performed by nurse. SVE: FHTs: 130bpm, mod dayan, +accels no decels Lucien: q 5-9 mins BSUS: cephalic, CATALINA 3cm A/P: Lisbet Teran is a 43 y.o. at 37w0d with A2GDM, preE, AMA who presents to triage for ctx and LOF. #Labor - Pt with SROM confirmed by groos leakage, at 1145, clear SVE as above - will be for pit augmentation #cHTN, rule out preE - h/o preE and gHTN - now on Nifedipine 30mg daily - panel ordered, asx - keep cycling Bps #GDM - on metformin - hypothyroid on levothyroxine AMA - on ASA Disposition: admit to labor, discussed with Dr Moreno No future appointments. Suman Kamara MD Department of Obstetrics, Gynecology & Reproductive Sciences [facility] Obstetrics and Gynecology Physician [facility] Procedure Notes Date/Time Note Provider Source 2024-05-01 23:26:34 OB Vaginal Delivery Note 05/01/2024 Lisbet Teran 43 y.o. Review the Delivery Report for details. Gestational Age: 37w0d /Para: Labor Complications: None Estimated Blood Loss: Delivery Blood Loss Intrapartum & : 05/01/24 1145 - 05/01/24 2327 Delivery Admission: 05/01/24 1145 - 05/01/24 2327 Intrapartum & Delivery Admission None Quantitative Blood Loss: Delivery Type: Vaginal, Spontaneous ROM to Delivery Time: 11h 32m Number of newborns delivered: one Caridad Hayes [[id number]] Delivery Providers Delivering clinician: Provider Role Delivery Assist Delivery Nurse Nursery Nurse RN Assist Delivery Details: Lisbet Teran, a 43 y.o. female delivered one viable infant. Patient was fully dilated and pushing after hours minutes in active labor. The patient was put in the dorsal lithotomy position. Delivery was via Vaginal, spontaneous to a sterile field under Epidural anesthesia. Infant delivered in Vertex Right Occiput Anterior position. Anterior and posterior shoulders delivered The cord was clamped twice, cut and 3 vessels were noted. Cord blood was obtained in routine fashion with the following disposition: Lab. Cord complications were N* and were around the with loops, which were . Intact placenta delivered at 05/01/2024 11:21 pm. Placental disposition was lab pathology discarded . Fundal massage performed and fundus found to be firm. Perineum, vagina, cervix were inspected, and the following lacerations were noted: Any lacerations were repaired in the usual fashion using None. Excellent hemostasis was noted. Needle count correct. Infantand patient in delivery room in good and stable condition. Augusto Moreno MD [facility]
[2024-06-22 21:58] LABS: Absolute Basophils 0.1 K/uL (0-0.5); Absolute Eosinophils 0.1 K/uL (0-0.5); Absolute Lymphocytes (CBC) 4.8 K/uL (0.7-4.9); Absolute Monocytes 0.6 K/uL (0.1-1.3); Basophils % 0.8 % (0-1.3); Hematocrit 43.4 % (36.0-45.0); Hemoglobin 14.5 g/dL (12.0-15.0); Lymphocytes % 41.3 % (15.3-44.8); MCH 32.2 pg (27.0-35.0); MCHC 33.4 g/dL (32.0-36.0); MCV 96.4 fL (80-100); MPV 8.4 fL (7.6-11.3); Neutrophils % 51.9 % (41.7-73.7); Nucleated Red Blood Cells % 0.1 % (0-0); Platelets 342 thou/uL (152-406); RBC Red Blood Cell Count 4.51 M/uL (3.86-4.86); Red Cell Distribution Width 13.3 % (12.1-15.2)
[2024-06-22] MEDS ORDERED: METOCLOPRAMIDE 10 MG/2mL INJ ONE (22:03)
[2024-06-22] MEDS ORDERED: KETOROLAC 30 MG/ML INJ ONE (22:03)
[2024-06-22] MEDS ORDERED: NA CHLORIDE 0.9% 1,000 ML ONE (22:03)
[2024-06-22] MEDS ORDERED: DIAZEPAM 5 MG TABLET ONE (22:03)
[2024-06-22 22:04] LABS: PT Prothrombin Time 10.7 SECONDS (9.4-12.5); Protime INR 0.95
[2024-06-22 22:25] LABS: ALT/SGPT 180 U/L (13-56); AST/SGOT 132 U/L (15-37); Albumin 3.5 g/dL (3.4-5.0); Albumin/Globulin Ratio 0.7 (1.1-1.8); Alkaline Phosphatase 179 U/L (45-117); Anion Gap 10.4 mEq/L (5.0-15.0); BUN Blood Urea Nitrogen 20 mg/dL (7-18); Bicarbonate 23 mEq/L (21-32); Bilirubin Total 0.3 mg/dL (0.2-1.0); Globulin 4.8 g/dL (2.3-3.5); Glomerular Filtration Rate 52 ml/min (=/>90); Glucose Level 132 mg/dL (74-106); NT PRO-BNP 58 pg/mL (<125); Potassium 3.4 mEq/L (3.5-5.1); Protein, Total 8.3 g/dL (6.4-8.2); Sodium Level 137 mEq/L (136-145); Troponin High Sensitivity 4.8 pg/mL (<58.9)
[2024-06-22 22:26] LABS: Bilirubin Direct < 0.2 mg/dL (0-0.2); Bilirubin Indirect, Calculated 0.1 mg/dL (0.2-0.8)
[2024-06-22 22:29] LABS: Specific Gravity < 1.005 (1.005-1.030); Sqamous Epithelial <5 /HPF (None Seen); Urine Bacteria None Seen /HPF (<20); Urine Bilirubin NEGATIVE (Negative); Urine Blood Negative (Negative); Urine Clarity Extremely Turbid (Clear); Urine Color Colorless (Yellow); Urine Culture Reflex Order NOT NEEDED; Urine Glucose NEGATIVE (Negative); Urine Ketones NEGATIVE (Negative); Urine Micro Reflex YN NO BILL MICROSCOPIC; Urine Nitrite NEGATIVE (Negative); Urine Protein 2+ (Negative); Urine RBC None Seen /HPF (None Seen); Urine Urobilinogen Normal (Normal); Urine WBC <5 /HPF (<5)
--- NOTE | 2024-06-22 22:47 | RAD REPORT ---
EXAMINATION: ONE VIEW CHEST XR CLINICAL INDICATION: Female, 43 years old.,CHEST PAIN TECHNIQUE: Frontal chest projection is submitted. Examination is limited by patient positioning and t echnique. COMPARISON: 04/07/2021 FINDINGS: The lungs are well inflated and clear. No pneumothorax or sizable effusion. The heart is normal in s ize. Mediastinal contours are unremarkable. IMPRESSION: No acute intrathoracic abnormalities.
--- NOTE | 2024-06-23 01:34 | ER ---
Nurse's Notes [facility] Name: Lisbet Bo Age: 43 yrs Sex: Female : 1980 Arrival Date: 06/22/2024 Time: 21:14 Bed 11 Private MD: Diagnosis: Anxiety disorder, unspecified;Essential (primary) hypertension;Elevated liver enzymes, sinus tachycardia Presentation: 06/22 21:25 Chief complaint: EMS states: she called because of low BP, on our arrival BP 166/89. ha1 reports being stressed after delivery of baby 30 days ago. headache. Coronavirus screen: Client denies travel out of the [place] in the last 14 days. Ebola Screen: No symptoms or risks identified at this time. Initial Sepsis Screen: Does the patient meet any 2 criteria? No. Patient's initial sepsis screen is negative. Does the patient have a suspected source of infection? No. Patient's initial sepsis screen is negative. Risk Assessment: Do you want to hurt yourself or someone else? Patient reports no desire to harm self or others. Onset of symptoms was June 22, 2024. 21:25 Method Of Arrival: EMS: [facility] ha1 21:25 Acuity: RONAL 3 ha1 Triage Assessment: 21:31 General: Appears comfortable, Behavior is cooperative, anxious. Pain: Complains of pain ha1 in headache Pain does not radiate. Pain currently is 6 out of 10 on a pain scale. Quality of pain is described as pressure. Neuro: Level of Consciousness is awake, alert, obeys commands, Oriented to person, place, time, situation. Neuro: Reports headache. Cardiovascular: Capillary refill < 3 seconds Patient's skin is warm and dry. Respiratory: Airway is patent Respiratory effort is even, unlabored, Respiratory pattern is regular, symmetrical. GI: Abdomen is round non-distended, Reports nausea. : No signs and/or symptoms were reported regarding the genitourinary system. Derm: Skin is pink, warm \T\ dry. Musculoskeletal: Circulation, motion, and sensation intact. Range of motion: intact in all extremities. 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 - Infectious Disease History:: Denies. - Social history:: Smoking status: Patient denies any tobacco usage or history of. - Family history:: not pertinent. Screenin/15 21:25 [facility] ED Fall Risk Assessment (Adult) History of falling in the last 3 months, ha1 including since admission No falls in past 3 months (0 pts) Confusion or Disorientation No (0 pts) Intoxicated or Sedated No (0 pts) Impaired Gait No (0 pts) Mobility Assist Device Used No (0 pt) Altered Elimination No (0 pt) Score/Fall Risk Level 0 - 2 = Low Risk Oriented to surroundings, Maintained a safe environment, Educated pt \T\ family on fall prevention, incl call for assistance when getting out of bed, Hourly rounding (assess needs \T\ fall precautionary measures) done. Abuse screen: Denies threats or abuse. Denies injuries from another. Nutritional screening: No deficits noted. Tuberculosis screening: No symptoms or risk factors identified. Assessment: 06/22 22:14 Reassessment: Patient and/or family updated on plan of care and expected duration. Pain ha1 level reassessed. Patient is alert, oriented x 3, equal unlabored respirations, skin warm/dry/pink. 23:12 Reassessment: Patient and/or family updated on plan of care and expected duration. Pain ha1 level reassessed. Patient is alert, oriented x 3, equal unlabored respirations, skin warm/dry/pink. Patient denies pain at this time. Patient states feeling better. Patient states symptoms have improved. 23:27 Reassessment: Patient and/or family updated on plan of care and expected duration. Pain ha1 level reassessed. Patient is alert, oriented x 3, equal unlabored respirations, skin warm/dry/pink. Patient denies pain at this time. Patient states feeling better. Patient states symptoms have improved. Vital Signs: 21:25 BP 154 / 94; Pulse 127; Resp 19 S; Temp 98.1(O); Pulse Ox 100% on R/A; Weight 73.48 kg; ha1 Height 5 ft. 4 in. ; 22:13 BP 145 / 85; Pulse 135; Resp 18 S; Pulse Ox 100% on R/A; ha1 23:12 BP 132 / 86; Pulse 116; Resp 18 S; Pulse Ox 99% on R/A; ha1 06/23 01:00 BP 128 / 81; Pulse 108; Resp 19 S; Pulse Ox 100% on R/A; ha1 06/22 21:25 Body Mass Index 27.81 (73.48 kg, 162.56 cm) ha1 Topmost Coma Score: 03:41 Eye Response: spontaneous(4). Motor Response: obeys commands(6). Verbal Response: sp4 oriented(5). Total: 15. ED Course: 06/22 21:25 Patient arrived in ED. gm2 21:25 Kalyan Dutta MD is Attending Physician. sp4 21:25 Patient has correct armband on for positive identification. Placed in gown. Bed in low ha1 position. Call light in reach. Side rails up X 1. 21:25 Arm band placed on right wrist. ha1 21:31 Triage completed. ha1 21:33 Inserted saline lock: 20 gauge in right antecubital area, using aseptic technique. oe Blood collected. Flushed with 10 mL NS. 21:45 XRAY Chest (1 view) In Process Unspecified. EDMS 21:49 Basic Metabolic Panel Sent. oe 21:50 CBC with Diff Sent. oe 21:50 LFT's Sent. oe 21:50 Magnesium Sent. oe 21:50 NT PRO-BNP Sent. oe 21:50 PT-INR Sent. oe 21:50 Troponin HS Sent. oe 21:54 Urinalysis W/Microscopic Sent. ha1 22:11 EKG done, by lead quality control technician. af3 23:12 Yessica Herrera, RN is Primary Nurse. ha1 06/23 01:25 Provided Education on: FOLLOW [employer] . ha1 01:57 No provider procedures requiring assistance completed. IV discontinued, intact, ha1 bleeding controlled, No redness/swelling at site. Pressure dressing applied. Administered Medications: 06/22 22:11 Drug: metoCLOPramide IVP 10 mg IVP once; over 1 to 2 minutes Route: IVP; Site: right ha1 antecubital; 22:45 Follow up: Response: No adverse reaction; Marked relief of symptoms ha1 22:12 Drug: Ketorolac IVP 30 mg IVP once Route: IVP; Site: right antecubital; ha1 22:45 Follow up: Response: No adverse reaction; Marked relief of symptoms; Pain is decreased ha1 22:13 Drug: Diazepam PO 5 mg PO once Route: PO; ha1 :45 Follow up: Response: No adverse reaction; Marked relief of symptoms ha07 29: Drug: NS 0.9% IV 1000 ml IV at 1 bolus Per protocol; to be given as a bolus over 60 ha1 minutes Route: IV; Rate: 1 bolus; Site: right antecubital; 06/23 01:00 Follow up: Response: No adverse reaction; IV Status: Completed infusion; IV Intake: ha1 1000ml Medication: 01:57 VIS not applicable for this client. ha1 Intake: 01:00 IV: 1000ml; Total: 1000ml. ha1 Outcome: 01:34 Discharge ordered by . vince :57 Discharged to home ambulatory, with family, 1 :57 Condition: stable 01:57 Discharge instructions given to patient, family, Instructed on discharge instructions, follow up and referral plans. Demonstrated understanding of instructions, follow-up care, :57 Patient left the ED. 1 Signatures: Dispatcher [employer] EDMS Fernie Chavarria Heidy, RN RN ha1 Kalyan Dutta MD MD sp4 Mitchell, Ginger gm2 Fry, Ashley af3
--- NOTE | 2024-06-23 01:34 | EDPHYS ---
Physician Documentation [facility] Name: Lisbet Bo Age: 43 yrs Sex: Female : 1980 Arrival Date: 06/22/2024 Time: 21:14 Bed 11 Private MD: ED Physician Kalyan Dutta HPI: 06/23 01:12 This 43 yrs old Female presents to ER via EMS with complaints of Anxiety . sp4 03:40 Patient is 43-year-old female who is 1-1/2 months . Patient states sp4 she is delivered 37-week-old on 05/01/2024. -5-0-5. Patient presents with dizziness and vomiting and headache starting today. Patient takes nifedipine 60 mg p.o. daily and euthyroid 75 mcg a day. Patient reports her pressure has been low at home and she has been feeling anxious and unwell. 03:41 EMS was actually called for complaint of low blood pressure at home. 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 - Infectious Disease History:: Denies. - Social history:: Smoking status: Patient denies any tobacco usage or history of. - Family history:: not pertinent. ROS: 06/23 03:41 Constitutional: Negative for fever, chills, and weight loss, patient positive for sp4 low blood pressure, generalized anxiety, feeling unwell All other systems are negative, Exam: 01:12 Constitutional: This is a well developed, well nourished patient who is awake, alert, sp4 and in no acute distress. Head/Face: Normocephalic, atraumatic. Eyes: Pupils equal round and reactive to light, extra-ocular motions intact. Lids and lashes normal. Conjunctiva and sclera are not injected. Cornea within normal limits. Periorbital areas with no swelling, redness, or edema. ENT: Nares patent. No nasal discharge, no septal abnormalities noted. Tympanic membranes are normal and external auditory canals are clear. Oropharynx with no redness, swelling, or masses, exudates, or evidence of obstruction, uvula midline. Mucous membranes moist. Neck: Trachea midline, no thyromegaly or masses palpated, and no cervical lymphadenopathy. Supple, full range of motion without nuchal rigidity, or vertebral point tenderness. Chest/axilla: Normal chest wall appearance and motion. Nontender with no deformity. No lesions are appreciated. Cardiovascular: Regular rate and rhythm with a normal S1 and S2. No gallops, murmurs, or rubs. Normal PMI, no JVD. No pulse deficits. Respiratory: Lungs have equal breath sounds bilaterally, clear to auscultation and percussion. No rales, rhonchi or wheezes noted. No increased work of breathing, no retractions or nasal flaring. Abdomen/GI: Soft, with normal bowel sounds. No distension or tympany. No guarding or rebound. No evidence of tenderness throughout. Back: No spinal tenderness. No costovertebral tenderness. Skin: Warm, dry with normal turgor. Normal color with no rashes, no lesions, and no evidence of cellulitis. MS/ Extremity: Pulses equal, no cyanosis. Neurovascular intact. Full, normal range of motion. Neuro: Awake and alert, GCS 15, oriented to person, place, time, and situation. Cranial nerves II-XII grossly intact. Motor strength 5/5 in all extremities. Sensory grossly intact. Psych: Awake, alert, with orientation to person, place and time. Behavior, mood, and affect are within normal limits 01:12 ECG was reviewed by the Attending Physician. EKG at 2209 sinus tachycardia rate 127 Vital Signs: 06/22 21:25 BP 154 / 94; Pulse 127; Resp 19 S; Temp 98.1(O); Pulse Ox 100% on R/A; Weight 73.48 kg; ha1 Height 5 ft. 4 in. ; 22:13 BP 145 / 85; Pulse 135; Resp 18 S; Pulse Ox 100% on R/A; ha1 23:12 BP 132 / 86; Pulse 116; Resp 18 S; Pulse Ox 99% on R/A; ha1 06/23 01:00 BP 128 / 81; Pulse 108; Resp 19 S; Pulse Ox 100% on R/A; ha1 06/22 21:25 Body Mass Index 27.81 (73.48 kg, 162.56 cm) ha1 [place] Coma Score: 03:41 Eye Response: spontaneous(4). Motor Response: obeys commands(6). Verbal Response: sp4 oriented(5). Total: 15. MDM: 06/22 21:26 Medical Screening Exam initiated 4 06/23 03:41 Differential Diagnosis altered mental status, sepsis, flu. Data reviewed: vital signs, sp4 nurses notes, EMS record, old medical records, lab test result(s), EKG. Consideration of Admission/Observation Escalation of care including admission/observation considered. ED course: Patient is much improved after medications. Patient has mild elevation of liver enzymes. Patient advised to see her OB or PCP for repeat liver enzyme check in 2 to 4 weeks. 03:46 ED course: BNP is normal, no sign of cardiomyopathy.. [facility] 06[facility] 21:25 Order name: Basic Metabolic Panel; Complete Time: 01:10 [facility] 06/[facility] 21:25 Order name: CBC with Diff; Complete Time: 01:10 [facility] 06/22 21:25 Order name: LFT's; Complete Time: :10 [facility] 06/22 21:25 Order name: Magnesium; Complete Time: :10 [facility] 06/22 21:25 Order name: NT PRO-BNP; Complete Time: :10 [facility] 06/22 21:25 Order name: PT-INR; Complete Time: :10 [facility] 06/22 21:25 Order name: Troponin HS; Complete Time: :10 [facility] 06/22 21:26 Order name: Test, Serum; Complete Time: 01:10 [facility] 06/22 21:26 Order name: Urinalysis W/Microscopic; Complete Time: :10 [facility] 06/22 21:25 Order name: XRAY Chest (1 view); Complete Time: 01:10 [facility] 06/22 21:25 Order name: Cardiac monitoring; Complete Time: 21:54 [facility] 06/22 21:25 Order name: EKG - Nurse/Tech; Complete Time: 22:11 [facility] 06/22 21:25 Order name: IV Saline Lock; Complete Time: 21:49 [facility] 06/22 21:25 Order name: Labs collected and sent; Complete Time: 21:49 [facility] 06/22 21:25 Order name: O2 Per Protocol; Complete Time: 21:54 [facility] 06/22 21:25 Order name: O2 Sat Monitoring; Complete Time: 21:54 sp4 EC:12 Rate is 127 beats/min. Rhythm is regular, Sinus tachycardia. QRS [place] is Normal. [place] sp4 interval is normal. QRS interval is normal. QT interval is normal. No Q waves. T waves are Normal. No ST changes noted. Clinical impression: Sinus tachycardia. Interpreted by me. Reviewed by me. Administered Medications: 06/22 22:11 Drug: metoCLOPramide IVP 10 mg IVP once; over 1 to 2 minutes Route: IVP; Site: right ha1 antecubital; 22:45 Follow up: Response: No adverse reaction; Marked relief of symptoms ha1 22:12 Drug: Ketorolac IVP 30 mg IVP once Route: IVP; Site: right antecubital; 1 22:45 Follow up: Response: No adverse reaction; Marked relief of symptoms; Pain is decreased ha1 22:13 Drug: Diazepam PO 5 mg PO once Route: PO; 1 22:45 Follow up: Response: No adverse reaction; Marked relief of symptoms 1 22:13 Drug: NS 0.9% IV 1000 ml IV at 1 bolus Per protocol; to be given as a bolus over 60 ha1 minutes Route: IV; Rate: 1 bolus; Site: right antecubital; 06/23 01:00 Follow up: Response: No adverse reaction; IV Status: Completed infusion; IV Intake: ha1 1000ml Disposition: 03:46 Chart complete. sp4 Disposition Summary: 06/23/24 01:34 Discharge Ordered Problem: new sp4 Symptoms: have improved sp4 Condition: Stable sp4 Diagnosis - Anxiety disorder, unspecified sp4 - Essential (primary) hypertension sp4 - Elevated liver enzymes, sinus tachycardia sp4 Followup: sp4 - With: Private Physician - When: 7 - 10 days - Reason: Recheck today's complaints Discharge Instructions: - Discharge Summary Sheet sp4 - Hypertension, Adult sp4 Forms: - Patient Portal Instructions sp4 Signatures: Dispatcher [employer] Yessica Pena RN RN ha1 Kalyan Dutta MD MD sp4 Corrections: (The following items were deleted from the chart) 06/22 21:26 21:26 BASIC METABOLIC PANEL+C.LAB.BRZ ordered. [facility] 21:26 21:26 CBC+H.LAB.BRZ ordered. EDMS EDMS 21:26 HEPATIC FUNCTION+C.LAB.BRZ ordered. EDMS EDMS : 21:26 MAGNESIUM+C.LAB.BRZ ordered. EDMS EDMS : 21:26 PROBNP+C.LAB.BRZ ordered. EDMS EDMS : 21:26 PROTIME (+INR)+COAG.LAB.BRZ ordered. EDMS EDMS : 21:26 Troponin High Sensitivity+C.LAB.BRZ ordered. EDMS EDMS : 21:26 Chest Single View+RAD.RAD.BRZ ordered. EDMS EDMS : 21:26 TEST, SERUM+SC.LAB.BRZ ordered. EDMS EDMS 21:26 Urinalysis W/Microscopic+U.LAB.BRZ ordered. EDMS EDMS 06/23 03:42 03:40 Patient is 43-year-old female who is 1-1/2 months . Patient sp4 states she is delivered 37-week-old on 05/01/2024. -5-0-5. Patient presents with dizziness and vomiting and headache starting today. Patient takes nifedipine 60 mg p.o. daily and euthyroid 75 mcg a day. Patient reports her pressure has been elevated and she has been feeling anxious and unwell. sp4
[2024-06-23 02:07] VITALS: BP 132/86; TEMP 98.1; O2SAT 99
--- NOTE | 2024-06-25 11:34 | EKG ---
Test Date: 2024-06-22 Test Time: 22:09:02 Store Mgr: AF MEASUREMENT RESULTS: Intervals: Rate: 127 UT: 134 QRSD: 84 QT: 316 QTc: 459 [place]: P: 59 UT: 134 QRS: 19 T: 48 INTERPRETIVE STATEMENTS: Sinus tachycardia Otherwise normal ECG No previous ECG available for comparison Electronically Signed On 06-25-24 11:34:09 [employer] by Carlos Boyle
== END 2024-06-23 01:57 | disposition home or self-care (01) ==
LOC: ER 21:14
DX: F41.9 Anxiety disorder, unspecified (principal); I10 Essential (primary) hypertension; R74.01 Elevation of levels of liver transaminase levels; R00.0 Tachycardia, unspecified
CPT/HCPCS: 36415; 71045; 80048; 80076; 81001; 83735; 83880; 84484; 84703; 85025; 85610; 93005; 96361; 96374; 96375; 99284; J2765; J7030

== ENCOUNTER 2025-04-03 15:20 | Emergency (ER) | payer SELFPAY ==
[2025-04-03] MEDS ORDERED: FAMOTIDINE 20 MG/2 ML VIAL IV ONE (15:45)
[2025-04-03] MEDS ORDERED: ONDANSETRON 4 MG/2 ML VIAL ONE (15:45)
[2025-04-03] MEDS ORDERED: NA CHLORIDE 0.9% 1,000 ML ONE (15:46)
[2025-04-03 16:04] LABS: Absolute Lymphocytes (CBC) 4.4 K/uL (0.7-4.9); Hematocrit 42.7 % (36.0-45.0); Hemoglobin 14.5 g/dL (12.0-15.0); MCH 32.7 pg (27.0-35.0); MCHC 34.0 g/dL (32.0-36.0); MCV 96.2 fL (80-100); MPV 8.4 fL (7.6-11.3); Nucleated RBC Absolute Count 0.0 (0-0); Nucleated Red Blood Cells % 0.1 % (0-0); RBC Red Blood Cell Count 4.44 M/uL (3.86-4.86); White Blood Count 10.50 thou/uL (4.3-10.9)
--- OUTSIDE RECORDS SUMMARY | 2025-04-03 16:09 | XMS REPORT | Continuity of Care Document ---
Author Name Unknown Address [address] [facility] [place] [address] [facility] [place] Address [address] [facility] [place] [address] Care Team Providers Care Safety Assistant Name Role Phone No , Pcp Primary Care Physician UnavailAUGUSTO Max Attending Clinician Unavailable Rodolfo Kamara MD, Suman Ny Attending Clinic edwar Augusto Moreno MD Attending Clinici an Bean VILLANUEVA, Sendthierno K.H. Attending Clinician + [phone] KACIE MANZANO K.HCande Attending Clinician UnavailCRISTOFER Avelar Attending Clinician Unavail CRISTOFER Smith Attending Clinician Unavail Cristofer Smith MD Attending Clinician +[phone] JUAN JENSEN Attending Clinician UnavailJUAN Awad Attending Clinician UnavailJADEN Wilcox Attending Clinician Unavailable Cheli SANDHU Attending Clinician Unavailable Cheli Roth Attending Clinician +[phone] Doctor Unassigned, [facility] Attending Clinician GLENN Sanchez Attending Clinician Glenn Miguel MD Attending Clinician [phone] Referred, Self Attending Clinician Unavailable Bean VILLANUEVA, Kacie K.H. Attending Clinician + [phone] Chata Bhakta Attending Clinician + CHATA HOLMAN Attending Clinician Unavail humberto CUEVAP, Glenn Ralph Attending Clinician [phone] GLENN BAKER Attending Clinician UnavailMarcelino CUEVAP, Osiel Rosado Attending Clinician + [phone] OSIEL VIVAS Attending Clinician Unavailab Guera Issa DO Attending Clinician [phone] Visit, [facility] Nurse Attending Clinician Dahlia Bermudez [facility] Resident Attending Clinician Unavailab grace Daley MD, Naveed Bello Attending Clinician [phone] AUGUSTO MORENO Admitting Clinician Unavailable Josh VILLANUEVA, Augusto Ross Admitting Clinici an KACIE MANZANO K.HCande Admitting Clinician UnavailGLENN Caldwell Admitting Clinician Unavailto santana Referred, Self Admitting Clinician Unavailable Physician, No Primary or Family Admitting Clinic edwar Unavailable Payers Payer Name Policy Type Policy Number Effective Date Expirati on Date Source COMMERCIAL NON-CONTRACT GENERIC [id number] 2020 00:00:00 [facility] Medicaid [id number] 2023 00:00:00 MEDICAID ALIEN PENDING PENDING 2023 00:00:00 [employer] [id number] 2023 00:00:00 Problems Condition Name Condition Details Condition Category Status Onset Date Resolution Date Last Treatment Date Treating Clinician Comments Source Problem Active 02-26 00:00: 00 [employer] Chronic kidney disease stage 3A Chronic Kidney Disease Stage 3a Problem Active 02-17 00:00: 00 [employer] Hypothyroi dism Hypothyroi dism Problem Active 02-17 00:00: 00 [employer] Vitamin D deficiency Vitamin D Deficiency Problem Active 02-17 00:00: 00 [facility] Essential hypertensi on Essential Hypertensi on Problem Active 8- 00:00: 00 [facility] Gastroesop hageal reflux disease Gastroesop hageal Reflux Disease Problem Active 8-13 00[facility]00: 00 [facility] Clinical finding Clinical Finding Problem Active 8-13 00:00: 00 [facility] Breast cyst Breast cyst Disease Active 8 00:00: 00 Overview: Formattin g of this note might be different from the original. mammo from [facility] 01-17-22Bi lateral cystsTher e is no sonograph ic evidence of malignanc yRoutine mammo in 1 year [facility] History of breast surgery History of breast surgery Disease Active 09-06 00:00: 00 [facility] History of breast surgery History of breast surgery Disease Active 09-06 00:00: 00 [facility] BMI 25.0-25.9, adult BMI 25.0-25.9, adult Disease Active 11-04 00:00: 00 [facility] Hyperthyro idism Hyperthyro idism Disease Active 11-04 00:00: 00 [facility] BMI 25.0-25.9, adult BMI 25.0-25.9, adult Disease Active 11-04 00:00: 00 [facility] Encounter for IUD removal Encounter for IUD removal Disease Active 10-15 00:00: 00 Overview: Formattin g of this note might be different from the original. paragard 05/2020 [facility] Essential hypertensi on Essential hypertensi on Disease Active 01-02 00:00: 00 Overview: Formattin g of this note might be different from the original. ICD10 Diagnosis Term Joint Creaser Utility [facility] Delayed delivery after SROM (spontaneo us rupture of membranes) Delayed delivery after SROM (spontaneo us rupture of membranes) Disease Resolve d 2023-07 0-25 00:00: 00 2024-05-03 00:00:00 2024-05-03 13:30:06 Jorje Roberson Epic Diabetes mellitus, type 2 Diabetes mellitus, type 2 Disease Resolve d 2023-07 0-25 00:00: 00 2024-05-03 00:00:00 2024-05-03 13:30:08 Memoria gladys Roberson Epic Hypothyroi dism Hypothyroi dism Disease Resolve d 2023-07 0-25 00:00: 00 2024-05-03 00:00:00 2024-05-03 13:47:11 Memoria gladys Roberson Epic Gastroesop hageal reflux disease Gastroesop hageal reflux disease Disease Resolve d 2023-07 0-25 00:00: 00 2024-05-03 00:00:00 2024-05-03 13:30:09 Memoria l Da Epic HTN (hypertens ion) HTN (hypertens ion) Disease Resolve d 2023-07 0-25 00:00: 00 2024-05-03 00:00:00 2024-05-03 13:47:13 Memoria l Philipp Epic affected by growth restrictio n affected by growth restrictio n Disease Resolve d 2023-07 0- 00:00: 00 2024-05-03 00:00:00 2024-05-03 13:47:09 Jorje Roberson Epic Breast pain, right Breast pain, right Disease Resolve d 3-02 00:00: 00 2021-02-28 00:00:00 2021-02-28 08:48:16 [facility] Abscess of groin, left Abscess of groin, left Disease Resolve d 2018-07 1-10 00:00: 00 2021-02-22 00:00:00 2021-02-22 08:41:53 [facility] Encounter for surveillan ce of injectable contracept red Encounter for surveillan ce of injectable contracept red Disease Resolve d 0 4-30 00:00: 00 2020-09-06 00:00:00 2020-09-06 10:56:35 [facility] Abscess of Bartholin' s gland Abscess of Bartholin' s gland Disease Resolve d 2018-0 4-10 00:00: 00 2020-09-06 00:00:00 2020-09-06 10:56:31 [facility] Depo-Prove ra contracept red status Depo-Prove ra contracept red status Disease Resolve d 2015-07 0-11 00:00: 00 2020-09-06 00:00:00 2020-09-06 10:56:38 [facility] Routine gynecologi estefanía examinatio n Routine gynecologi estefanía examinatio n Disease Resolve d 2015-07 011 00:00: 00 2017-10-15 00:00:00 2017-10-15 15:04:23 [facility] Chlamydia trachomati s infection of lower genitourin margarita sites Chlamydia trachomati s infection of lower genitourin margarita sites Disease Resolve d 10-13 00:00: 00 2017-10-15 00:00:00 2017-10-15 15:04:16 [facility] Encounter for insertion of intrauteri ne contracept red device Encounter for insertion of intrauteri ne contracept red device Disease Resolve d 10-09 00:00: 00 2017-10-15 00:00:00 2022-01-21 00:29:40 [facility] Other general counseling and advice for contracept red management Other general counseling and advice for contracept red management Disease Resolve d 2012-07 00:00: 00 2013-10-09 00:00:00 2013-10-09 12:20:11 [facility] Allergic rhinitis Allergic rhinitis Disease Resolve d 2012-07 00:00: 00 2013-10-09 00:00:00 2022-01-21 00:28:07 [facility] Sinus pressure Sinus pressure Disease Resolve d 2012-07 00:00: 00 2013-10-09 00:00:00 2013-10-09 12:20:09 [facility] Anemia of mother in , condition Anemia of mother in , condition Disease Resolve d 2012-07 00:00: 00 2013-10-09 00:00:00 2013-10-09 12:34:32 [facility] Proteinuri a Proteinuri a Disease Resolve d 2012-07 00:00: 00 2013-06-26 00:00:00 2013-06-26 11:44:26 [facility] Suprapubic pressure Suprapubic pressure Disease Resolve d 2012-07 00:00: 00 2013-06-26 00:00:00 2013-06-26 11:44:28 [facility] Pelvic cramping Pelvic cramping Disease Resolve d 2012-07 00:00: 00 2013-06-26 00:00:00 2013-06-26 11:44:22 [facility] Normal delivery Normal delivery Disease Resolve d 2012-07 00:00: 00 2013-06-26 00:00:00 2013-06-26 11:44:20 [facility] Severe pre-eclamp jaguar, antepartum Severe pre-eclamp jaguar, antepartum Disease Resolve d 2012-07 00:00: 00 2013-05-29 00:00:00 2013-05-29 13:59:21 [facility] spontaneou s labor with delivery spontaneou s labor with delivery Disease Resolve d 11-27 00:00: 00 2013-05-29 00:00:00 2022-01-21 00:24:40 [facility] High-risk supervisio n High-risk supervisio n Disease Resolve d 2012-07 00:00: 00 2013-05-22 00:00:00 2013-05-22 12:36:33 [facility] Family history of congenital anomalies Family history of congenital anomalies Disease Resolve d 11-27 00:00: 00 2013-05-22 00:00:00 2022-01-21 00:24:41 [facility] Other known or suspected abnormalit y, not elsewhere classified , affecting management of mother, antepartum condition or complicati on Other known or suspected abnormalit y, not elsewhere classified , affecting management of mother, antepartum condition or complicati on Disease Resolve d 02-12 00:00: 00 2013-04-30 00:00:00 2022-01-21 00:25:52 [facility] Headache Headache Disease Resolve d 01-02 00:00: 00 2013-04-30 00:00:00 2022-01-21 00:25:16 [facility] Trichomona l vulvovagin itis Trichomona l vulvovagin itis Disease Resolve d 12-12 00:00: 00 2013-04-30 00:00:00 2022-01-21 00:24:55 [facility] Immune to rubella Immune to rubella Disease Resolve d 11-27 00:00: 00 2013-04-30 00:00:00 2013-04-30 16:07:11 [facility] Immune to varicella Immune to varicella Disease Resolve d 11-27 00:00: 00 2013-04-30 00:00:00 2013-04-30 16:07:12 [facility] Glucose tolerance test abnormal Glucose tolerance test abnormal Disease Resolve d 11-03 00:00: 00 2013-04-30 00:00:00 2022-01-21 00:24:15 [facility] Chlamydia trachomati s infection of lower genitourin margarita sites Chlamydia trachomati s infection of lower genitourin margarita sites Disease Resolve d 11-03 00:00: 00 2013-04-30 00:00:00 2022-01-21 00:24:15 [facility] Nausea & vomiting Nausea & vomiting Disease Resolve d 10-31 00:00: 00 2013-04-30 00:00:00 2022-01-21 00:24:13 [facility] History of cervical dysplasia History of cervical dysplasia Disease Resolve d 10-31 00:00: 00 2012-10-31 00:00:00 2022-01-21 00:24:13 [facility] Multiparit y Multiparit y Disease Resolve d 09-30 00:00: 00 2012-09-25 00:00:00 2012-09-25 10:26:58 [facility] anemia anemia Disease Resolve d 09-30 00:00: 00 2012-09-25 00:00:00 2022-01-21 00:12:57 [facility] Normal delivery Normal delivery Disease Resolve d 09-29 00:00: 00 2012-09-25 00:00:00 2012-09-25 10:26:47 [facility] Proteinuri a Proteinuri a Disease Resolve d 09-28 00:00: 00 2012-09-25 00:00:00 2012-09-25 10:27:04 [facility] Anemia of mother, with delivery, with complicati on Anemia of mother, with delivery, with complicati on Disease Resolve d 11-01 00:00: 00 2012-09-25 00:00:00 2015-04-08 17:26:13 [facility] First degree perineal laceration during delivery First degree perineal laceration during delivery Disease Resolve d 10-31 00:00: 00 2012-09-25 00:00:00 2022-01-21 00:10:47 [facility] OTHER DIAGNOSIS - PLEASE ANNOTATE. OTHER DIAGNOSIS - PLEASE ANNOTATE. Disease Resolve d 10-30 00:00: 00 2006-10-31 00:00:00 2006-10-31 04:07:11 [facility] Dehydratio n Dehydratio n Disease Resolve d 2005-07 00:00: 00 2006-10-30 00:00:00 2006-10-30 21:44:31 [facility] Allergies, Adverse Reactions, Alerts Allergy Name Allergy Type Status Severity Reaction(s) Onset Date Inactive Date Treating Clinician Comments Source NO KNOWN ALLERGIE S Drug Class Active [facility] Social History Social Habit Start Date Stop Date Quantity Comments Source ASSERTION Not Jorje Robreson [facility] Gender identity Butch dk Roberson [facility] Sexual orientation [facility] Alcoholic beverage intake 2024-05-02 00:00:00 2024-05-02 00:00:00 Lifetime non-drinker (finding) [facility] Tobacco use and exposure 2024-05-01 00:00:00 2024-05-01 00:00:00 Smokeless tobacco non-user [facility] History of Social function 2024-05-01 00:00:00 2024-05-01 00:00:00 [facility] Alcohol intake 2023-10-27 00:00:00 2023-10-27 00:00:00 0 /d [facility] Exposure to SARS-CoV-2 (event) 2021-12-18 00:00:00 2021-12-28 11:14:00 Not sure [facility] Sex assigned at 1980 00:00:00 1980 00:00:00 [facility] Smoking Status Start Date Stop Date Source Never smoked tobacco Jorje [facility] Medications Ordered Medication Name Filled Medication Name Start Date Stop Date Current Medication? 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 Pump Operator a 150 mg/mL intramuscul ar syringe 02-04 00:00: 00 Yes 1mg/mL Juan Santana montelukast 10 mg tablet 11-26 00:00: 00 Yes 1mg Juan Santana cephalexin 500 mg capsule 11-26 00:00: 00 Yes 1mg Juan Santana promethazin e-DM 6.25 mg-15 mg/5 mL oral syrup 11-26 00:00: 00 Yes 5mg/5 mL Juan Santana Unithroid 75 mcg tablet - 00:00: 00 Yes 1mcg Juan Santana lisinopril 20 mg tablet - 00:00: 00 Yes 1mg Juan Santana 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-Irrigating Pump Operator a 150 mg/mL intramuscul ar syringe - 00:00: 00 Yes 1mg/mL Juan Santana atorvastati n 10 mg tablet -18 00:00: 00 Yes 1mg Juan Santana lisinopril 20 mg tablet -14 00:00: 00 Yes 1mg Juan Santana dextrometho rphan-guaif enesin 20 mg-400 mg tablet 2-14 00:00: 00 Yes 1mg Juan Santana ondansetron 8 mg disintegrat ing tablet 08-21 00:00: 00 Yes 1mg Juan Santana Depo-Irrigating Pump Operator a 150 mg/mL intramuscul ar syringe 08-21 00:00: 00 Yes 1mg/mL Juan Santana lisinopril 20 mg tablet - 00:00: 00 Yes 1mg Juan Santana Zoloft 25 mg tablet - 00:00: 00 Yes 1mg Juan Santana lisinopril 10 mg tablet 2023-07 00:00: 00 Yes 1mg Juan Santana Unithroid 75 mcg tablet 2023-07 00:00: 00 Yes 1mcg Juan Santana Unithroid 75 mcg tablet 2023-07 00:00: 00 Yes 1mcg Juan Santana Procardia XL 60 mg tablet,exte nded release 2023-07 00:00: 00 Yes 1mg Juan Santana Unithroid 75 mcg tablet 2023-07 00:00: 00 Yes 1mcg Juan Santana Depo-Irrigating Pump Operator a 150 mg/mL intramuscul ar syringe 2023-07 00:00: 00 Yes 1mg/mL Juan Santana Procardia XL 30 mg tablet,exte nded release 2023-07 00:00: 00 Yes 1mg Juan Santana aspirin EC 81 MG EC tablet aspirin EC 81 MG EC tablet 2023-07 15:26: 37 05-03 00:00 :00 No 571 81mg QD Take 81 mg by mouth 1 time each day. Jorje Roberson [facility] metFORMIN (Glucophage ) 500 MG tablet metFORMIN (Glucophage ) 500 MG tablet 2023-07 15:26: 34 Yes 500mg Take 500 mg by mouth at bedtime. Jorje Roberson [facility] NIFEdipine CC (Adalat CC) 30 MG 24 hr tablet NIFEdipine CC (Adalat CC) 30 MG 24 hr tablet 2023-07 15:26: 34 Yes 30mg Take 30 mg by mouth in the morning. Take before meals. Do not crush, chew, or split. Jorje Roberson [facility] multivitami n () 1 tablet multivitami n () 1 tablet 2023-07 09:00: 00 Yes 1{tbl} QD 1 tablet, Oral, Daily, First dose on 05/02/24 at 0900, - Vaginal, provides 0.8 mg folic acid Jorje Car levothyroxi ne (Synthroid, Levoxyl) tablet 75 mcg levothyroxi ne (Synthroid, Levoxyl) tablet 75 mcg 2023-07 08:00: 00 Yes 75ug 75 mcg, Oral, Daily before breakfast, First dose on 05/02/24 at 0800 Jorje Car tranexamic acid (Cyklokapro n) 1,000 [...] delivery 20 Units of Oxytocin Jorje Car witch jigar-glyce rin (Tucks) pad [...] uritus only if Nalbuphine is unavailabl e Jorje Car nalbuphine (Nubain) injection 2 mg nalbuphine [...] 3,200 mg in 24 hours Jorje Car ondansetron (Zofran) injection 4 mg [...] OB hemorrhage per physician direction Jorje Car oxytocin (Pitocin) injection 10 Units [...] BUD., Tranexamic Acid Indication : 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 Jorje Car miSOPROStol (Cytotec) tablet 1,000 mcg miSOPROStol (Cytotec) tablet 1,000 mcg 2023-07 01:46: 20 05-02 04:07 :00 No 1000ug 1,000 mcg, Rectal, Oncall, Starting on 05/02/24 at 0146, For [...] chloride 0.9 % 100 mL IVPB-MB+ 2023-07 20:45: 00 05-01 21:15 :00 No 510 [...] (Select all that apply): Surgical Prophylaxi s Jorje Roberson Epic oxytocin (Pitocin) 30 units [...] Infusion Type: Non-titrat e Jorje Roberson Epic sodium chloride 0.9 % infusion sodium chloride 0.9 % infusion 2023-07 16:20: 00 05-02 02:12 :48 No 100mL/h 100 mL/hr, Other, Continuous , Starting on Sat05/01/24 at 1620, Delivery, VAGINAL maintenanc e dose, to be administer ed via pump. Jorje Roberson Epic oxytocin (Pitocin) 30 units [...] Infusion Type: Non-titrat e Jorje Roberson Epic sodium chloride 0.9 % bolus 1,000 mL sodium chloride 0.9 % bolus 1,000 mL 2023-07 16:20: 00 05-01 18:09 :00 No 1000mL 1,000 mL, Intravenou s, at 1,000 mL/hr, Administer over 1 Hours, Once, On Sat05/01/24 at 1620, For 1 dose, Delivery Omarhéctor gladys Da Car metronidazo le 500 mg tablet 2023-07 0 00:00: 00 Yes 1mg Juan Santana aspirin 81 mg chewable tablet 2023-07 0-07 10:47: 17 Yes [id number] 81mg Take 1 tablet by mouth daily. [facility] levothyroxi ne (UNITHROID) 75 mcg tablet 2023-07 007 10:46: 49 Yes [id number] 75ug Take 1 tablet by mouth every morning. [facility] potassium chloride in water 10 mEq/100 mL RTU 10 mEq 2023-07 0 23:30: 00 04-11 23:31 :00 No 10meq 10 mEq, IV Piggyback, ONCE, 1 dose, On 04/11/24 at 1830, Administer over 60 Minutes, 100 mL [facility] NaCl 0.9% (NS) bolus infusion 1,000 mL 2023-07 22:30: 00 04-11 23:31 :00 No 1000mL at 999 mL/hr, 1,000 mL, IV Infusion, ONCE, 1 dose, On 04/11/24 at 1730, STAT [facility] KCL (KLOR-CON M20) tablet 40 mEq 2023-07 22:30: 00 04-11 22:33 :00 No 40meq 40 mEq, Oral, ONCE, 1 dose, On 04/11/24 at 1730, AMANDA [facility] acetaminoph en (TYLENOL) tablet 650 mg 2023-07 20:15: 00 04-11 20:25 :00 No 650mg 650 mg, Oral, ONCE, 1 dose, On 04/11/24 at 1515, AMANDA [facility] metFORMIN 500 mg tablet 2023-07 0 00:00: 00 Yes [id number] 500mg Take 1 tablet by mouth at bedtime. [facility] Procardia XL 30 mg tablet,exte nded release 04-03 00:00: 00 Yes 1mg uJan Santana NIFEdipine XL 30 mg 24 hr tablet 04-03 00:00: 00 Yes [id number] 30mg Take 1 tablet by mouth daily. [facility] cetirizine 10 mg tablet 02-04 00:00: 00 Yes [id number] 10mg Take 1 tablet by mouth daily. [facility] cetirizine 10 mg tablet 02-03 00:00: 00 [...] 1 dose, On 10/27/23 at 1415, AMANDA [facility] NaCl 0.9% (NS) bolus infusion 1,000 mL 10-26 19:15: 00 10-26 19:00 :00 No 1000mL at 999 mL/hr, 1,000 mL, IV Infusion, ONCE, 1 dose, On 10/27/23 at 1415, STAT [facility] metoclopram asya HCl (REGLAN) injection 10 mg 10-26 19:15: 00 10-26 18:36 :00 No 10mg 10 mg, Slow IV Push, ONCE, 1 dose, [facility] (BENADRYL) injection 25 mg 10-26 19:15: 00 10-26 18:36 :00 No 25mg 25 mg, Slow IV Push, ONCE, 1 dose, On 10/27/23 at 1415, STAT [facility] Nitrofurant oin&Nit. Macrocryst (MACROBID) 100 mg capsule 10-26 00:00: 00 11-01 04:59 :00 No [id number] 100mg Take 1 capsule by mouth 2 (two) times daily for 5 days. [facility] Procardia XL 30 mg tablet,exte nded release 10-06 00:00: 00 Yes 1mg Juan Santana Unithroid 75 mcg tablet 10-06 00:00: 00 Yes 1mcg Juan Santana NIFEDIPIN XL 30MG ER 10-06 00:00: 00 Yes Juan Santana CEPHALEXIN 500MG 09-26 00:00: 00 Yes Juan Santana cetirizine 10 mg tablet 09-25 00:00: 00 Yes 1mg Juan Santana sulfamethox azole 800 mg-trimetho prim 160 mg tablet 09-25 00:00: 00 Yes 1mg Juan Santana lisinopril 10 mg tablet 09-18 00:00: 00 Yes 1mg Juan Santana TAKE 1 TABLET BY MOUTH DAILY 09-15 00:00: 00 11-19 00:00 :00 No 75 Juan Santana UNITHROID 75MCG 08-12 00:00: 00 Yes Juan Santana TAKE 1 TABLET BY MOUTH DAILY 08-12 00:00: 00 11-19 00:00 :00 No 10 Juan Santana TAKE 1 TABLET EVERY 12 HOURS UNTIL GONE. 2022-07 00:00: 00 11-19 00:00 :00 No [id number] Juan Santana TAKE 1 CAPSULE TWICE DAILY. 2022-07 00:00: 00 11-19 00:00 :00 No 100 Juan Santana TAKE 1 TABLET DAILY. 2022-07 00:00: 00 11-19 00:00 :00 No 75 Juan Santana TAKE 1 TABLET BY MOUTH DAILY 2022-07 00:00: 00 11-19 00:00 :00 No 10 Juan Santana TAKE 1 TABLET BY MOUTH DAILY -19 00:00: 00 11-19 00:00 :00 No 10 Juan Santana TAKE DIRECTED. 03-11 00:00: 00 11-19 00:00 :00 No 4 Juan Santana TAKE 1 TABLET DAILY. 11-26 00:00: 00 11-19 00:00 :00 No 75 Juan Santana TAKE 1 TABLET DAILY. 11-26 00:00: 00 11-19 00:00 :00 No 10 Juan Santana TAKE 1 TABLET DAILY. 11-26 00:00: 00 11-19 00:00 :00 No 10 Juan Santana TAKE 1 TABLET DAILY. 10-09 00:00: 00 11-19 00:00 :00 No 10 Juan Santana TAKE 1 TABLET DAILY. 10-09 00:00: 00 11-19 00:00 :00 No 75 Juan Santana TAKE 10 ML EVERY 4-6 HOURS NEEDED - 00:00: 00 11-19 00:00 :00 No Juan Santana TAKE 1 TABLET BY MOUTH EVERY 8 HOURS 07-09 00:00: 00 Yes Juan Santana TAKE 1 TABLET BY MOUTH EVERY DAY FOR 10 DAYS 07-09 00:00: 00 Yes Juan Santana DISSOLVE 1 TABLET ON TONGUE 4 TIMES A DAY NEEDED - 00:00: 00 Yes Juan Santana CEPHALEXIN 500MG 2021-07 0-12 00:00: 00 Yes [id number] Juan Santana BROM/PSE/DM SYP 2021-07 0-06 00:00: 00 Yes Juan Santana TAKE 10 ML EVERY 4-6 HOURS NEEDED 2021-07 0-06 00:00: 00 No TAKE 1 TABLET DAILY. 03-28 00:00: 00 11-19 00:00 :00 No 75 Juan Santana LISINOPRIL 10MG - 00:00: 00 11-19 00:00 :00 No [id number] Juan Santana levothyroxi ne 75 mcg tablet 11-05 00:00: 00 Yes 1mcg Juan Santana levothyroxi ne 75 mcg tablet 0 11-05 00:00: 00 No 1mcg levothyroxi ne 75 mcg tablet 0 11-05 00:00: 00 No 1mcg lisinopril 10 mg tablet 0 11-02 00:00: 00 Yes 1mg Juan Santana levothyroxi ne 75 mcg tablet 11-02 00:00: 00 Yes 1mcg Juan Santana Dose Unknown 11-02 00:00: 00 Yes Juan Santana Dose Unknown 11-02 00:00: 00 Yes Juan Santana lisinopril 10 mg tablet 11-02 [...] No Dose Unknown 11-02 00:00: 00 No Bromfed DM 2 mg-30 mg-10 mg/5 mL oral syrup 07-14 00:00: 00 Yes 10mg/5 mL Juan Santana Bromfed DM 2 mg-30 mg-10 mg/5 mL oral syrup 07-14 00:00: 00 No 10mg/5 mL Bromfed DM 2 mg-30 mg-10 mg/5 mL oral syrup 0 07-14 00:00: 00 No 10mg/5 mL lisinopril 10 mg tablet 2020-07 08:55: 53 Yes 10mg Take 1 tablet by mouth daily. [facility] Dose Unknown 2020-07 00:00: 00 Yes Juan Santana Dose Unknown 2020-07 00:00: 00 No Dose Unknown 2020-07 00:00: 00 No levothyroxi ne 75 mcg tablet 2020-07 00:00: 00 Yes 1mcg Juan F Max levothyroxi ne 75 mcg tablet 2020-07 0 00:00: 00 No 1mcg levothyroxi ne 75 mcg tablet 2020-07 0 00:00: 00 No 1mcg lidocaine 4 % topical patch 2020-07 0-07 00:00: 00 Yes 1% Juan Santana lidocaine 4 % topical patch 2020-07 0- 00:00: 00 No 1% lidocaine 4 % topical patch 2020-07 0 00:00: 00 No 1% Dose Unknown 2020-07 0 00:00: 00 Yes Juan Santana pantoprazol e 40 mg EC tablet 2020-07 00:00: 00 Yes 40mg Take 40 mg by mouth daily. [facility] ondansetron 4 mg tablet 2020-07 00:00: 00 Yes TAKE 1 TABLET BY MOUTH EVERY 12 HOURS NEEDED [facility] Dose Unknown 2020-07 00:00: 00 No Dose Unknown 2020-07 00:00: 00 No levothyroxi ne 75 mcg tablet 01-19 00:00: 00 Yes 1mcg Juan Santana levothyroxi ne 75 mcg tablet 01-19 00:00: 00 No 1mcg levothyroxi ne 75 mcg tablet 01-19 00:00: 00 No 1mcg Dose Unknown 10-21 00:00: 00 Yes Juan Santana Dose Unknown 16 00:00: 00 No Dose Unknown 16 00:00: 00 No levothyroxi ne 75 mcg tablet 10-15 00:00: 00 Yes 1mcg Juan Santana Vitamin D3 25 mcg (1,000 unit) capsule 10-15 00:00: 00 Yes 1800 unit-50 mg Juan Santana levothyroxi ne 75 mcg tablet 10-15 00:00: 00 No 1mcg Vitamin D3 25 mcg (1,000 unit) capsule - 00:00: 00 No 1(1,000 unit) levothyroxi ne 75 mcg tablet 10-15 00:00: 00 No 1mcg Vitamin D3 25 mcg (1,000 unit) capsule 0 10-15 00:00: 00 No 1(1,000 unit) lisinopril 10 mg tablet 0 08 00:00: 00 Yes 1mg Juan Santana famotidine 20 mg tablet 0 -08 00:00: 00 Yes 1mg Juan Santana levothyroxi ne 50 mcg tablet 0 10-13 00:00: 00 Yes 1mcg Juan Santana lisinopril 10 mg tablet 0 10-13 00:00: 00 No 1mg famotidine 20 mg tablet 0 10-13 00:00: 00 No 1mg levothyroxi ne 50 mcg tablet 10-13 00:00: 00 No 1mcg lisinopril 10 mg tablet 0 10-13 00:00: 00 No 1mg famotidine 20 mg tablet 10-13 00:00: 00 No 1mg levothyroxi ne 50 mcg tablet 10-13 00:00: 00 No 1mcg levothyroxi ne 50 mcg tablet 0 03-31 00:00: 00 Yes 1mcg Juan Santana levothyroxi ne 50 mcg tablet 0 03-31 00:00: 00 No 1mcg levothyroxi ne 50 mcg tablet 0 24 00:00: 00 No 1mcg famotidine 20 mg tablet 0 01-27 00:00: 00 Yes 1mg Juan Santana famotidine 20 mg tablet 0 01-27 00:00: 00 No 1mg famotidine 20 mg tablet 0 01-27 00:00: 00 No 1mg prednisone 20 mg tablet 0 01-26 00:00: 00 Yes 1mg Juan Santana levothyroxi ne 50 mcg tablet 0 01-26 00:00: 00 Yes 1mcg Juan Santana Zyrtec 10 mg capsule 0 01-26 00:00: 00 Yes 1mg Juan Santana amoxicillin 500 mg capsule 0 01-26 00:00: 00 Yes 1mg Juan Santana prednisone 20 mg tablet 0 01-26 00:00: [...] capsule 2019-0 01-26 00:00: 00 No 1mg Zyrtec 10 mg capsule 2019-0 12-22 00:00: 00 Yes 1mg Juan Santana Zyrtec 10 mg capsule 2019-0 12-22 00:00: 00 No 1mg Zyrtec 10 mg capsule 2019-0 12-22 00:00: 00 No 1mg levothyroxi ne 50 mcg tablet 2019-0 11-26 00:00: 00 Yes 1mcg Juan Santana levothyroxi ne 50 mcg tablet 2019-0 11-26 00:00: 00 No 1mcg levothyroxi ne 50 mcg tablet 2019-0 11-26 00:00: 00 No 1mcg levothyroxi ne 88 mcg tablet 2019-0 10-28 00:00: 00 Yes 1mcg Juan Santana levothyroxi ne 88 mcg tablet 2019-0 10-28 00:00: 00 No 1mcg levothyroxi ne 88 mcg tablet 2019-0 23 00:00: 00 No 1mcg levothyroxi ne 100 mcg tablet 2019-0 30 00:00: 00 Yes 1mcg Juan Santana Vitamin D2 1,250 mcg (50,000 unit) capsule 2019-0 3-30 00:00: 00 Yes 1-5.84 gram Juan Santana levothyroxi ne 100 mcg tablet 2019-0 3-30 00:00: 00 No 1mcg Vitamin D2 1,250 mcg (50,000 unit) capsule 2019-0 330 00:00: 00 No 1(50,00 0 unit) levothyroxi ne 100 mcg tablet 2019-0 330 00:00: 00 No 1mcg Vitamin D2 1,250 mcg (50,000 unit) capsule 30 00:00: 00 No 1(50,00 0 unit) Augmentin 875 mg-125 mg tablet 09-23 00:00: 00 Yes 1mg Juan Santana Augmentin 875 mg-125 mg tablet 09-23 00:00: 00 No 1mg Augmentin 875 mg-125 mg tablet 09-23 00:00: 00 No 1mg lisinopril 10 mg tablet 3 00:00: 00 Yes 1mg Juan Santana amoxicillin 500 mg capsule 3 00:00: 00 Yes 1mg uJan Santana lisinopril 10 mg tablet 3 00:00: 00 No 1mg amoxicillin 500 mg capsule 3 00:00: 00 No 1mg lisinopril 10 mg tablet 3 00:00: 00 No 1mg amoxicillin 500 mg capsule 3 00:00: 00 No 1mg lisinopril 10 mg tablet 2018-07 00:00: 00 Yes 1mg Juan Santana lisinopril 10 mg tablet 2018-07 1 00:00: 00 No 1mg lisinopril 10 mg tablet 2018-07 00:00: 00 No 1mg lisinopril 10 mg tablet 205 00:00: 00 Yes 1mg Juan Santana cephalexin 500 mg capsule 2-05 00:00: 00 Yes 1mg Juan Santana lisinopril 10 mg tablet 2-05 00:00: 00 No 1mg cephalexin 500 mg capsule 2-05 00:00: 00 No 1mg lisinopril 10 mg tablet 2-05 00:00: 00 No 1mg cephalexin 500 mg capsule 2-05 00:00: 00 No 1mg Vitamin D2 50,000 unit capsule -14 00:00: 00 Yes 1unit Juan Santana Vitamin D2 50,000 unit capsule 07-21 00:00: 00 No 1unit Vitamin D2 50,000 unit capsule 07-21 00:00: 00 No 1unit lisinopril 10 mg tablet 2017-07 00:00: 00 Yes 1mg uJan Santana lisinopril 10 mg tablet 2017-07 00:00: 00 No 1mg lisinopril 10 mg tablet 2017-07 00:00: 00 No 1mg lisinopril 10 mg tablet 03-21 00:00: 00 Yes 1mg Juan Santana lisinopril 10 mg tablet 03-21 00:00: 00 No 1mg lisinopril 10 mg tablet 03-21 00:00: 00 No 1mg lisinopril 10 mg tablet 2015-07 00:00: 00 Yes 1mg Juan Santana lisinopril 10 mg tablet 2015-07 00:00: 00 No 1mg lisinopril 10 mg tablet 2015-07 00:00: 00 No 1mg lisinopril 10 mg-hydrochl orothiazide 12.5 mg tablet 2015-07 00:00: 00 Yes 1mg Juan Santana lisinopril 10 mg-hydrochl orothiazide 12.5 mg tablet 2015-07 00:00: 00 No 1mg lisinopril 10 mg-hydrochl orothiazide 12.5 mg tablet 2015-07 00:00: 00 No 1mg clarithromy dione 500 [...] 08-10 00:00: 00 Yes 1mg Juan Santana lisinopril 10 mg-hydrochl orothiazide 12.5 mg tablet 08-10 00:00: 00 No 1mg Vistaril 50 mg capsule 08-10 00:00: 00 No 1mg lisinopril 10 mg-hydrochl orothiazide 12.5 mg tablet 08-10 00:00: 00 No 1mg Vistaril 50 mg capsule 08-10 00:00: 00 No 1mg clindamycin 300 mg capsule 2014-07 00:00: 00 Yes 1mg Juan Santana clindamycin [...] 07-22 00:00: 00 Yes 1mg Juan Santana lisinopril 10 mg-hydrochl orothiazide 12.5 mg tablet 07-22 00:00: 00 No 1mg lisinopril 10 mg-hydrochl orothiazide 12.5 mg tablet 07-22 00:00: 00 No 1mg Unithroid 75 mcg tablet TAKE ONE TABLET BY MOUTH EVERY MORNING Unithroid 75 mcg tablet TAKE ONE TABLET BY MOUTH EVERY MORNING No Unithroid 75 mcg tablet TAKE ONE TABLET BY MOUTH EVERY MORNING [facility] Immunizations Ordered Immunization Name Filled Immunization Name Date Status Comments Source influenza, injectable influenza, injectable 2020-04-21 00:00:00 Completed Juan Santana Influenza Virus Vaccine Quad .5 mL IM 6+ MO (FLUZONE/FLULAVAL/F LUARIX) 2020-04-21 00:00:00 Completed [facility] Influenza Virus Vaccine Quad .5 mL IM 6+ MO (FLUZONE/FLULAVAL/F LUARIX) 2020-04-21 00:00:00 Completed [facility] Influenza Virus Vaccine Quad .5 mL IM 6+ MO (FLUZONE/FLULAVAL/F LUARIX) 2020-04-21 00:00:00 Completed [facility] Influenza Virus Vaccine Quad .5 mL IM 6+ MO 2020-04-21 00:00:00 Completed [facility] Influenza Virus Vaccine Quad .5 mL IM 6+ MO 2020-04-21 00:00:00 Completed [facility] Influenza Virus Vaccine Quad .5 mL IM 6+ MO 2020-04-21 00:00:00 Completed [facility] Hep A-Hep B Hep A-Hep B 2019-07-02 00:00:00 Completed Juan Santana influenza, injectable influenza, injectable 2019-05-27 00:00:00 Completed Juan Hilary Santana Influenza Virus Vaccine Quad .5 mL IM 6+ MO (FLUZONE/FLULAVAL/F LUARIX) 2019-05-27 00:00:00 Completed [facility] Influenza Virus Vaccine Quad .5 mL IM 6+ MO (FLUZONE/FLULAVAL/F LUARIX) 2019-05-27 00:00:00 Completed [facility] Influenza Virus Vaccine Quad .5 mL IM 6+ MO (FLUZONE/FLULAVAL/F LUARIX) 2019-05-27 00:00:00 Completed [facility] Influenza Virus Vaccine Quad .5 mL IM 6+ MO 2019-05-27 00:00:00 Completed [facility] Influenza Virus Vaccine Quad .5 mL IM 6+ MO 2019-05-27 00:00:00 Completed [facility] Influenza Virus Vaccine Quad .5 mL IM 6+ MO 2019-05-27 00:00:00 Completed [facility] Hep A-Hep B Hep A-Hep B 2019-01-30 00:00:00 Completed Juan Santana varicella varicella 2019-01-30 00:00:00 Completed Juan Santana Hep A-Hep B Hep A-Hep B 2018-12-31 00:00:00 Completed Juan Santana varicella varicella 2018-12-31 00:00:00 Completed Juan Santana Tdap Tdap 2018-12-31 00:00:00 Completed Juan Santana TDAP 2013-06-26 00:00:00 Completed TDAP 2013-06-26 00:00:00 Completed TDAP 2013-06-26 00:00:00 Completed TDAP 2013-06-26 00:00:00 Completed [facility] TDAP 2013-06-26 00:00:00 Completed [facility] TDAP 2013-06-26 00:00:00 Completed [facility] Influenza Virus Vaccine 2013-03-26 00:00:00 Completed [facility] Influenza Virus Vaccine 2013-03-26 00:00:00 Completed [facility] Influenza Virus Vaccine 2013-03-26 00:00:00 Completed [facility] Influenza Virus Vaccine 2013-03-26 00:00:00 Completed [facility] Influenza Virus Vaccine 2013-03-26 00:00:00 Completed [facility] Influenza Virus Vaccine 2013-03-26 00:00:00 Completed [facility] Rubella 2007-03-21 00:00:00 Completed [facility] Rubella 2007-03-21 00:00:00 Completed [facility] Rubella 2007-03-21 00:00:00 Completed [facility] Rubella 2007-03-21 00:00:00 Completed [facility] Rubella 2007-03-21 00:00:00 Completed [facility] Rubella 2007-03-21 00:00:00 Completed [facility] Td (adult), adsorbed Td (adult), adsorbed 2001-02-11 00:00:00 Completed Juan Hilary Max MMR MMR 1999-05-12 00:00:00 Completed Juan Santana Td (adult), adsorbed Td (adult), adsorbed 1999-04-27 00:00:00 Completed Juan Santana Td (adult), adsorbed Td (adult), adsorbed 1999-02-22 00:00:00 Completed Juan Santana MMR MMR 1999-02-22 00:00:00 Completed Juan Santana TD, NOS 1998-07-08 00:00:00 Completed TD, NOS 1998-07-08 00:00:00 Completed TD, NOS 1998-07-08 00:00:00 Completed Td 1998-07-08 00:00:00 Completed [facility] Td 1998-07-08 00:00:00 Completed [facility] Td 1998-07-08 00:00:00 Completed [facility] Rubella Unknown Completed [facility] TD, NOS Unknown Completed [facility] Influenza Virus Vaccine Unknown Completed [facility] TDAP Unknown Completed [facility] Influenza Virus Vaccine Quad .5 mL IM 6+ MO (FLUZONE/FLULAVAL/F LUARIX) Unknown Completed [facility] Rubella Unknown Completed [facility] TD, NOS Unknown Completed [facility] Influenza Virus Vaccine Unknown Completed [facility] TDAP Unknown Completed [facility] Influenza Virus Vaccine Quad .5 mL IM 6+ MO (FLUZONE/FLULAVAL/F LUARIX) Unknown Completed [facility] Vital Signs Vital Name Observation Time Observation Value Comments S moisésce Heart rate 2024-05-03 07:37:11 74 /min Tom aguilar [facility] Oxygen saturation in Arterial blood by Pulse oximetry 2024-05-03 07:37:11 97 /min [facility] Systolic blood pressure 2024-05-03 07:37:05 135 mm[Hg] [facility] Diastolic blood pressure 2024-05-03 07:37:05 76 mm[Hg] [facility] Body temperature 2024-05-03 07:36:46 36.67 Dawn [facility] Respiratory rate 2024-05-02 23:48:26 16 /min [facility] Body height 2024-05-01 15:30:00 165.1 cm Butch root [facility] Body weight 2024-05-01 15:30:00 83.25 kg Butch Roberson Epic BMI 2024-05-01 15:30:00 30.54 kg/m2 Butch Roberson Epic Heart rate 2024-05-03 07:37:11 74 /min Tom Roberson Epic Oxygen saturation in Arterial blood by Pulse oximetry 2024-05-03 07:37:11 97 /min [facility] Her dangelo [facility] Systolic blood pressure 2024-05-03 07:37:05 135 mm[Hg] [facility] dangelo Epic Diastolic blood pressure 2024-05-03 07:37:05 76 mm[Hg] [facility] Her dangelo [facility] Body temperature 2024-05-03 07:36:46 36.67 Dawn [facility] Respiratory rate 2024-05-02 23:48:26 16 /min [facility] Da [facility] Body height 2024-05-01 15:30:00 165.1 cm Butch Roberson [facility] Body weight 2024-05-01 15:30:00 83.25 kg Butch Reyesann Epic BMI 2024-05-01 15:30:00 30.54 kg/m2 Butchcortney Roberson Epic Systolic blood pressure 2024-04-13 15:43:00 127 mm[Hg] [facility] Diastolic blood pressure 2024-04-13 15:43:00 82 mm[Hg] [facility] Heart rate 2024-04-13 15:43:00 90 [facility] in Arterial blood by Pulse oximetry 2024-04-13 15:43:00 96 /min [facility] Respiratory rate 2024-04-13 15:40:00 20 /min [facility] Body height 2024-04-13 15:40:00 165.1 cm [facility] Body weight 2024-04-13 15:40:00 81.874 kg [facility] BMI 2024-04-13 15:40:00 30.04 kg/m2 [facility] Systolic blood pressure 2024-04-11 23:00:00 123 mm[Hg] [facility] Diastolic blood pressure 2024-04-11 23:00:00 75 mm[Hg] [facility] Heart rate 2024-04-11 23:00:00 81 /min Unive [facility] Respiratory rate 2024-04-11 23:00:00 16 /min [facility] Oxygen saturation in Arterial blood by Pulse oximetry 2024-04-11 23:00:00 98 /min [facility] Body temperature 2024-04-11 20:09:00 37.22 Dawn [facility] Body height 2024-04-11 20:09:00 165.1 cm [facility] Body weight 2024-04-11 20:09:00 80.74 kg Univ [facility] BMI 2024-04-11 20:09:00 29.62 kg/m2 [facility] BMI (Body Mass Index) 2024-02-27 00:00:00 29.5 kg/m2 [facility] Height 2024-02-27 00:00:00 65 [in_i] [facility] Body Weight 2024-02-27 00:00:00 177.4 [lb_av] [facility] BP Diastolic 2024-02-27 00:00:00 89 mm[Hg] [facility] BP Systolic 2024-02-27 00:00:00 128 mm[Hg] [facility] Systolic blood pressure 2023-10-27 20:15:00 121 mm[Hg] [facility] Diastolic blood pressure 2023-10-27 20:15:00 79 mm[Hg] [facility] Heart rate 2023-10-27 20:15:00 80 /min [facility] Respiratory rate 2023-10-27 20:15:00 18 /min [facility] Oxygen saturation in Arterial blood by Pulse oximetry 2023-10-27 20:15:00 100 /min [facility] Body temperature 2023-10-27 17:35:00 36.83 Dawn [facility] Body height 2023-10-27 17:35:00 162.6 cm [facility] Body weight 2023-10-27 17:35:00 70.308 kg [facility] BMI 2023-10-27 17:35:00 26.61 kg/m2 [facility] Systolic blood pressure 2023-08-19 17:18:00 131 mm[Hg] [facility] Diastolic blood pressure 2023-08-19 17:18:00 89 mm[Hg] [facility] Heart rate 2023-08-19 17:18:00 98 /min [facility] Body temperature 2023-08-19 17:18:00 36.67 Dawn [facility] Body height 2023-08-19 17:18:00 165.1 cm [facility] Body weight 2023-08-19 17:18:00 68.675 kg [facility] BMI 2023-08-19 17:18:00 25.19 kg/m2 [facility] Body temperature 2023-05-15 02:56:00 37.28 Dawn [facility] Respiratory rate 2023-05-15 02:56:00 20 /min [facility] Body height 2023-05-15 02:56:00 165.1 cm [facility] Body weight 2023-05-15 02:56:00 66.679 kg [facility] BMI 2023-05-15 02:56:00 24.46 kg/m2 [facility] Oxygen saturation in Arterial blood by Pulse oximetry 2023-05-15 02:56:00 100 /min [facility] Systolic blood pressure 2023-05-15 02:56:00 127 mm[Hg] [facility] Diastolic blood pressure 2023-05-15 02:56:00 78 mm[Hg] [facility] Heart rate 2023-05-15 02:56:00 72 /min [facility] BP Systolic 2025-02-04 09:41:00 121 mm[Hg] Step alton Santana BP Diastolic 2025-02-04 09:41:00 74 mm[Hg] Luis Armando Santana Weight Measured 2025-02-04 09:41:00 151.40 pounds Juan Santana Height Measured 2025-02-04 09:41:00 65.00 inches Juan Santana Body Temperature 2025-02-04 09:41:00 98.00 degrees Juan Santana Heart Rate 2025-02-04 09:41:00 88.00 /min Nelly en F Max Respiratory Rate 2025-02-04 09:41:00 Juan F Max BP Systolic 2024-11-26 15:12:00 118 mm[Hg] Step hen F Max BP Diastolic 2024-11-26 15:12:00 81 mm[Hg] Luis Armando phen F Max Weight Measured 2024-11-26 15:12:00 149.40 pounds Juan F Max Height Measured 2024-11-26 15:12:00 65.00 inches Juan F Max Body Temperature 2024-11-26 15:12:00 98.30 degrees Juan F Max Heart Rate 2024-11-26 15:12:00 105.00 /min Step hen F Max Respiratory Rate 2024-11-26 15:12:00 18.00 /min Juan F Max BP Systolic 2024-11-09 10:39:00 120 mm[Hg] Step hen F Max BP Diastolic 2024-11-09 10:39:00 80 mm[Hg] Luis Armando phen F Max Weight Measured 2024-11-09 10:39:00 148.60 pounds Juan F Max Height Measured 2024-11-09 10:39:00 65.00 inches Juan F Max Body Temperature 2024-11-09 10:39:00 98.30 degrees Juan F Max Heart Rate 2024-11-09 10:39:00 92.00 /min Nelly en F Max Respiratory Rate 2024-11-09 10:39:00 18.00 /min Juan F Max BP Systolic 2024-10-13 16:39:00 128 mm[Hg] Step hen F Max BP Diastolic 2024-10-13 16:39:00 87 mm[Hg] Luis Armando phen F Max Weight Measured 2024-10-13 16:39:00 150.80 pounds Juan F Max Height Measured 2024-10-13 16:39:00 65.00 inches Juan F Max Body Temperature 2024-10-13 16:39:00 98.10 degrees Juan F Max Heart Rate 2024-10-13 16:39:00 78.00 /min Nelly en F Max Respiratory Rate 2024-10-13 16:39:00 18.00 /min Juan F Max BP Systolic 2024-08-21 10:35:00 130 mm[Hg] Step hen F Max BP Diastolic 2024-08-21 10:35:00 83 mm[Hg] Luis Armando phen F Max Weight Measured 2024-08-21 10:35:00 154.60 pounds Juan F Max Height Measured 2024-08-21 10:35:00 65.00 inches Juan F Max Body Temperature 2024-08-21 10:35:00 98.20 degrees Juan F Max Heart Rate 2024-08-21 10:35:00 106.00 /min Step hen F Max Respiratory Rate 2024-08-21 10:35:00 18.00 /min Juan F Max BP Systolic 2024-07-23 13:18:00 161 mm[Hg] Step hen F Max BP Diastolic 2024-07-23 13:18:00 87 mm[Hg] Luis Armando phen F Max Weight Measured 2024-07-23 13:18:00 158.20 pounds Juan F Max Height Measured 2024-07-23 13:18:00 65.00 inches Juan F Max Body Temperature 2024-07-23 13:18:00 98.00 degrees Juan F Max Heart Rate 2024-07-23 13:18:00 108.00 /min Step hen F Max Respiratory Rate 2024-07-23 13:18:00 Juan F Max BP Systolic 2024-06-23 15:13:00 163 mm[Hg] Step hen F Max BP Diastolic 2024-06-23 15:13:00 93 mm[Hg] Luis Armando phen F Max Weight Measured 2024-06-23 15:13:00 165.20 pounds Juan F Max Height Measured 2024-06-23 15:13:00 65.00 inches Juan F Max Body Temperature 2024-06-23 15:13:00 98.00 degrees Juan F Max Heart Rate 2024-06-23 15:13:00 101.00 /min Step hen F Max Respiratory Rate 2024-06-23 15:13:00 Juan F Max BP Systolic 2024-06-12 10:49:00 143 mm[Hg] Step hen F Max BP Diastolic 2024-06-12 10:49:00 87 mm[Hg] Luis Armando phen F Max Weight Measured 2024-06-12 10:49:00 167.80 pounds Juan F Max Height Measured 2024-06-12 10:49:00 65.00 inches Juan F Max Body Temperature 2024-06-12 10:49:00 Juan F Max Heart Rate 2024-06-12 10:49:00 75.00 /min Nelly en F Max Respiratory Rate 2024-06-12 10:49:00 17.00 /min Juan F Max BP Systolic 2024-05-22 15:16:00 138 mm[Hg] Step hen F Max BP Diastolic 2024-05-22 15:16:00 85 mm[Hg] Luis Armando phen F Max Weight Measured 2024-05-22 15:16:00 169.20 pounds Juan F Max Height Measured 2024-05-22 15:16:00 65.00 inches Juan F Max Body Temperature 2024-05-22 15:16:00 Juan F Max Heart Rate 2024-05-22 15:16:00 92.00 /min Nelly en F Max Respiratory Rate 2024-05-22 15:16:00 Juan F Max BP Systolic 2024-05-01 10:34:00 147 mm[Hg] Step hen F Max BP Diastolic 2024-05-01 10:34:00 80 mm[Hg] Luis Armando phen F Max Weight Measured 2024-05-01 10:34:00 186.40 pounds Juan F Max Height Measured 2024-05-01 10:34:00 65.00 inches Juan F Max Body Temperature 2024-05-01 10:34:00 98.00 degrees Juan F Max Heart Rate 2024-05-01 10:34:00 89.00 /min Nelyl en F Max Respiratory Rate 2024-05-01 10:34:00 17.00 /min Juan F Max BP Systolic 2024-04-17 10:48:00 128 mm[Hg] Step hen F Max BP Diastolic 2024-04-17 10:48:00 84 mm[Hg] Luis Armando phen F Max Weight Measured 2024-04-17 10:48:00 101.20 pounds Juan F Max Height Measured 2024-04-17 10:48:00 65.00 inches Juan F Max Body Temperature 2024-04-17 10:48:00 98.30 degrees Juan F Max Heart Rate 2024-04-17 10:48:00 98.00 /min Nelly en F Max Respiratory Rate 2024-04-17 10:48:00 17.00 /min Juan F Max BP Systolic 2024-04-03 10:25:00 134 mm[Hg] Step hen F Max BP Diastolic 2024-04-03 10:25:00 83 mm[Hg] Luis Armando phen F Max Weight Measured 2024-04-03 10:25:00 177.80 pounds Juan F Max Height Measured 2024-04-03 10:25:00 65.00 inches Juan F Max Body Temperature 2024-04-03 10:25:00 97.20 degrees Juan F Max Heart Rate 2024-04-03 10:25:00 97.00 /min Nelly en F Max Respiratory Rate 2024-04-03 10:25:00 Juan F Max BP Systolic 2024-03-06 12:00:00 134 mm[Hg] Step hen F Max BP Diastolic 2024-03-06 12:00:00 87 mm[Hg] Luis Armando phen F Max Weight Measured 2024-03-06 12:00:00 176.00 pounds Juan F Max Height Measured 2024-03-06 12:00:00 65.00 inches Juan F Max Body Temperature 2024-03-06 12:00:00 97.90 degrees Juan F Max Heart Rate 2024-03-06 12:00:00 104.00 /min Step hen F Max Respiratory Rate 2024-03-06 12:00:00 16.00 /min Juan F Max BP Systolic 2024-02-06 09:44:00 132 mm[Hg] Step hen F Max BP Diastolic 2024-02-06 09:44:00 66 mm[Hg] Luis Armando phen F Max Weight Measured 2024-02-06 09:44:00 180.00 pounds Juan F Max Height Measured 2024-02-06 09:44:00 65.00 inches Juan F Max Body Temperature 2024-02-06 09:44:00 97.40 degrees Juan [...] Measured 2023-12-19 15:31:00 65.00 inches Juan F [facility] Body Temperature 2023-12-19 15:31:00 98.30 degrees Juan [...] Date / Time Performed Performing Clinician Source [id number] Ultrasound, Retroperitoneal (eg, Renal, Aorta, Nodes), Real Time With Image Documentation; Complete 2024-11-04 00:00:00 Juan Santana RUBELLA ANTIBODY IGG 2024-05-02 10:16:00 AsAugusto washington [facility] HEMOGLOBIN AND HEMATOCRIT 2024-05-02 10:16:00 As Augusto piedra [facility] COMPREHENSIVE METABOLIC PANEL 2024-05-01 16:49:00 Suman Ramsey Anant [facility] ANTIBODY SCREEN 2024-05-01 16:49:00 Suman Ramsey Anant [facility] COMPLETE BLOOD COUNT W/DIFF AND PLATELET 2024-05-01 16:49:00 Suman Ramsey Anant [facility] (STAT) HEPATITIS B SURFACE ANTIGEN 2024-05-01 16:49:00 Suman Ramsey Anant [facility] ABORH BLOOD TYPE 2024-05-01 16:49:00 Suman Shipley Anant [facility] HIV 4TH GEN WITH REFLEX 2024-05-01 16:49:00 Suman Mcwilliams [facility] TREPONEMAL ANTIBODY W/REFLEXES 2024-05-01 16:49:00 [facility] 2024-05-01 16:49:00 Suman Potter [facility] AUTOMATED DIFFERENTIAL 2024-05-01 16:49:00 [facility] (TTE) COMPLETE 2024-04-22 18:44:38 Kacie Manzano [facility] HB ECG ROUTINE & RHYTHM STRIP 2024-04-13 15:43:34 Kacie Manzano K.H. [facility] COMP. METABOLIC PANEL ([id number]) 2024-04-11 21:33:00 Cristofer Lynch [facility] CBC WITH DIFF 2024-04-11 20:28:00 Cristofer Lynch [facility] RAPID STREP SCREEN FOR GROUP A 2024-04-11 20:28:00 Cristofer Lynch [facility] INFLUENZA A/B RSV COVID NAAT 2024-04-11 20:28:00 Cristofer Lynch [facility] URINALYSIS 2024-04-11 20:12:00 Cristofer Lynch [facility] POCT GLUCOSE (AUTOMATED) 2024-04-11 20:09:00 Ksenia Lynch [facility] US, retroperitoneum 2024-02-27 00:00:00 P [facility] COMP. METABOLIC PANEL ([id number]) 2023-10-27 18:37:00 Juan Jensen [facility] CBC WITH DIFF 2023-10-27 18:37:00 Juan Jensen [facility] URINALYSIS 2023-10-27 18:37:00 [facility]STICK 2023-08-19 17:51:00 David Brown [facility] ASSIGNMENT OF BENEFITS 2023-05-15 04:13:22 Docto r Unassigned, [facility] NOTICE OF PRIVACY PRACTICES 2023-05-15 02:38:53 Doctor Unassigned, [facility] CONSENT/REFUSAL FOR DIAGNOSIS AND TREATMENT 2023-05-15 02:38:25 Doctor Unassigned, [facility] [address]305 Ekg W/ At Least 12 Leads W/ I r 2022-11-26 00:00:00 Juan Santana EXTERNAL PROVIDER RECORDS 2022-02-05 05:01:00 Do ctor Unassigned, [facility] EXTERNAL PROVIDER RECORDS 2022-01-19 05:01:00 Do ctor Unassigned, [facility] Ekg 2018-07-14 00:00:00 Juan Santana [id number] Ecg Routine Ecg W/least 12 Lds W/i r 2015-03-24 00:00:00 Juan Santana POCT glucose meter docked device [place] [facility] Plan of Care Planned Activity Planned Date Details Comments Source Goal Plan of Care Note [code = 67921-0] Goal Plan of Care Note [code = 63239-0] Goal Plan of Care Note [code = 16431-4] Goal Plan of Care Note [code = 81921-5] Goal Plan of Care Note [code = 01753-7] Goal Plan of Care Note [code = 17973-6] Goal Plan of Care Note [code = 48525-5] Goal Plan of Care Note [code = 77855-8] Goal Plan of Care Note [code = 24756-4] Goal Plan of Care Note [code = 00957-9] Goal Plan of Care Note [code = 55665-1] Goal Plan of Care Note [code = 13767-8] Goal Plan of Care Note [code = 54599-8] Goal Plan of Care Note [code = 51573-3] Goal Plan of Care Note [code = 93700-4] Goal Plan of Care Note [code = 26050-1] Goal Plan of Care Note [code = 95441-2] Goal Plan of Care Note [code = 27637-8] Goal Plan of Care Note [code = 26729-2] Goal Plan of Care Note [code = 28214-7] Goal Plan of Care Note [code = 07399-5] Goal Plan of Care Note [code = 90454-6] Goal Plan of Care Note [code = 20703-2] Goal Plan of Care Note [code = 45214-9] Goal Plan of Care Note [code = 26780-1] Goal Plan of Care Note [code = 50725-8] Goal Plan of Care Note [code = 97673-9] Goal Plan of Care Note [code = 10348-2] Goal Plan of Care Note [code = 08696-6] Goal Plan of Care Note [code = 66925-6] Goal Plan of Care Note [code = 34064-4] Goal Plan of Care Note [code = 96306-1] Goal Plan of Care Note [code = 08720-8] Goal Plan of Care Note [code = 68785-2] Goal Plan of Care Note [code = 91007-1] Goal Plan of Care Note [code = 27466-1] Goal Plan of Care Note [code = 19739-8] Goal Plan of Care Note [code = 54383-2] Goal Plan of Care Note [code = 36541-0] Goal Plan of Care Note [code = 46258-6] Goal Plan of Care Note [code = 57816-6] Goal Plan of Care Note [code = 26070-5] Goal Plan of Care Note [code = 11098-0] Goal Plan of Care Note [code = 06636-4] Goal Plan of Care Note [code = 75279-4] Goal Plan of Care Note [code = 01915-9] Goal Plan of Care Note [code = 57742-8] Goal Plan of Care Note [code = 38645-6] Goal Plan of Care Note [code = 78364-6] Goal Plan of Care Note [code = 15790-8] Goal Plan of Care Note [code = 24010-7] Goal Plan of Care Note [code = 93140-1] Goal Plan of Care Note [code = 73492-7] Goal Plan of Care Note [code = 94602-1] Goal Plan of Care Note [code = 01262-4] Goal Plan of Care Note [code = 93089-8] Goal Plan of Care Note [code = 10848-8] Goal Plan of Care Note [code = 85514-3] Encounters Start Date/Time End Date/Time Encounter Type Admission Type Attending [facility] Facility Care Department Encounter ID Source 2021-05-05 23:42:[address] [facility] [id number] [facility] 2025-02-04 09:29:35 2025-02-04 09:29:[address] [facility] [id number] Juan Santana 2025-02-04 00:00:00 2025-02-04 00:00:[address] [facility] [id number] Juan Santana 2024-11-26 15:05:27 2024-11-26 15:05:[address] [facility] [id number] Juan Santana 2024-11-26 00:00:00 2024-11-26 00:00:[address] [facility] [id number] Juan Santana 2024-11-09 00:00:00 2024-11-09 00:00:00 Outpatient Visit SFA [id number] Juan Santana 2024-11-04 08:26:18 2024-11-04 08:26:[address] [facility] [id number] Juan Santana 2024-10-15 09:40:46 2024-10-15 09:40:46 Outpatient SFA [facility] [id number] Juan Santana 2024-10-14 10:08:29 2024-10-14 10:08:29 Outpatient SFA [facility] [id number] Juan Santana 2024-10-13 16:23:29 2024-10-13 16:23:29 Outpatient SFA S[facility] [id number] Juan Santana 2024-10-13 00:00:00 2024-10-13 00:00:00 Outpatient Visit SFA [id number] Juan Santana 2024-09-24 11:36:49 2024-09-24 11:36:49 Outpatient SFA [facility] [id number] Juan Santana 2024-08-21 10:25:21 2024-08-21 10:25:21 Outpatient SFA [facility] [id number] Juan Santana 2024-08-21 00:00:00 2024-08-21 00:00:00 Outpatient Visit SFA [id number] Juan Snatana 2024-07-23 13:11:51 2024-07-23 13:11:51 Outpatient SFA [facility] [id number] Juan Santana 2024-07-23 00:00:00 2024-07-23 00:00:00 Outpatient Visit SFA [id number] Juan Santana 2024-06-23 17:04:46 2024-06-23 17:04:46 Outpatient SFA S[facility] [id number] Juan Santana 2024-06-23 00:00:00 2024-06-23 00:00:00 Outpatient Visit SFA [id number] Juan Santana 2024-05-22 10:24:02 2024-05-22 10:24:02 Outpatient SFA S[facility] [id number] Juan Santana 2024-05-01 15:27:00 2024-05-03 15:26:00 Inpatient Emergency AUGUSTO MORENO [facility] Obstetrics [id number] [facility] 2024-05-01 15:27:00 2024-05-03 15:26:00 Hospital Encounter Suman Ramsey, Augusto Ndubuezdavid [facility] 1.2.840.114 350.1.13.70 8.2.7.2.686 [id number] [facility] 2024-05-01 10:17:29 2024-05-01 10:17:[address] [facility] [id number] Juan Santana 2024-05-01 00:00:00 2024-05-01 00:00:00 Outpatient Visit SFA [id number] Juan Santana 2024-04-23 00:00:00 2024-04-23 14:00:29 Telephone Kacie Manzano [facility] 1.2.840.114 350.1.13.10 4.2.7.2.686 [id number] [facility] 2024-04-23 00:00:00 2024-04-23 10:31:57 Telephone Kacie Manzano [facility] 1.2.840.114 350.1.13.10 4.2.7.2.686 [id number] [facility] 2024-04-22 12:34:27 2024-04-22 23:59:00 Outpatient R KACIE MANZANO [facility] [id number] [facility] 2024-04-22 12:34:27 2024-04-22 23:59:00 Hospital Encounter Kacie Manzano [facility] 1.2.840.114 350.1.13.10 4.2.7.2.686 [id number] [facility] 2024-04-17 10:38:09 2024-04-17 10:38:[address] [facility] [id number] Juan Santana 2024-04-17 00:00:00 2024-04-17 00:00:[address] [facility] [id number] Juan Santana 2024-04-16 13:00:00 2024-04-16 13:00:00 Outpatient R KACIE MANZANO [facility] [id number] [facility] 2024-04-13 11:00:00 2024-04-13 11:05:03 Outpatient R [facility]ACIE MANZ[facility]O [facility] [id number] [facility] 2024-04-13 11:00:00 2024-04-13 11:05:03 Office [facility] 1.2.840.114 350.1.13.10 4.2.7.2.686 [id number] [facility] 2024-04-11 15:10:00 2024-04-11 18:32:00 Emergency X CRISTOFER LYNCH JOSEPH [facility] ERT [id number] [facility] 2024-04-11 15:10:00 2024-04-11 18:32:00 Emergency Cristofer Lynch [facility] 1.2.840.114 350.1.13.10 4.2.7.2.686 [id number] [facility] 2024-04-03 10:21:01 2024-04-03 10:21:[address] [facility] [id number] Juan Santana 2024-04-03 00:00:00 2024-04-03 00:00:[address] [facility] [id number] Juan Richard [place] 2024-03-06 10:41:15 2024-03-06 10:41:15 Outpatient SFA SFA [id number] Juan Richard [place] 2024-03-06 00:00:00 2024-03-06 00:00:00 Outpatient Visit SFA [id number] Juan Richard [place] 2024-02-27 00:00:00 2024-02-27 00:00:00 Fani Keller MD: [address] [facility] [address], [place] [address] , Ph. [facility] [id number] [facility] 2024-02-17 08:45:39 2024-02-17 08:45:39 Outpatient SFA SFA [id number] Juan Richard [place] 2024-02-12 08:25:12 2024-02-12 08:25:12 Outpatient SFA SFA 07 Juan Richard [place] 2024-02-10 10:28:53 2024-02-10 10:28:53 Outpatient SFA SFA 05 Juan Richard [place] 2024-02-07 13:34:27 2024-02-07 13:34:27 Outpatient SFA SFA 801 Juan Richard [place] 2024-02-06 09:37:06 2024-02-06 09:37:06 Outpatient SFA SFA [id number] Juan Richard [place] 2024-02-06 00:00:00 2024-02-06 00:00:00 Outpatient Visit SFA [id number] Juan Richard [place] 2024-02-04 17:55:39 2024-02-04 17:55:39 Outpatient SFA SFA [id number] Juan Richard [place] 2024-02-04 00:00:00 2024-02-04 00:00:00 Outpatient Visit SFA [id number] Juan Santana 2024-02-04 00:00:00 2024-02-04 00:00:00 Outpatient Visit SFA [id number] Juan Santana 2024-01-30 11:31:12 2024-01-30 11:31:12 Outpatient S[facility] [place] [id number] Juan Santana 2023-12-19 15:28:12 2023-12-19 15:28:[address] [facility] [id number] Juan Santana 2023-12-19 00:00:00 2023-12-19 00:00:00 Outpatient Visit SFA [id number] Juan Santana 2023-11-28 10:17:40 2023-11-28 10:17:[address] [facility] [id number] Juan Santana 2023-11-15 08:18:16 2023-11-15 08:18:[address] [facility] [id number] Juan Santana 2023-11-14 11:05:58 2023-11-14 11:05:[address] [facility] [id number] Juan Santana 2023-11-14 00:00:00 2023-11-14 00:00:00 Outpatient Visit SFA [id number] Juan Santana 2023-10-27 12:36:00 2023-10-27 15:15:00 Emergency X JUAN JENSEN STEPHEN [facility] ERT [id number] [facility] 2023-10-27 12:36:00 2023-10-27 15:15:00 Emergency Juan Jensen [facility] 1.2.840.114 350.1.13.10 4.2.7.2.686 [id number] [facility] 2023-10-23 11:22:22 2023-10-23 11:22:22 Outpatient SFA [address] 0417 Juan Santana 2023-10-15 10:18:15 2023-10-15 10:18:15 Outpatient S[facility] [place] [id number] Juan Santana 2023-10-07 13:40:03 2023-10-07 13:40:03 Outpatient OMEGA [place] [id number] Juan Richard Max 2023-09-26 10:52:09 2023-09-26 10:52:09 Outpatient SFA [place] [id number] Juan Richard Max 2023-09-19 13:39:27 2023-09-19 13:39:27 Outpatient SFA [place] [id number] Juan Richard Max 2023-08-19 11:00:00 2023-08-19 13:30:58 Office Visit JADEN [facility] 1 .2.840.114 350.1.13.58 9.2.7.2.686 [id number] [facility] 2023-07-30 09:40:46 2023-07-30 09:40:46 Outpatient SFA [place] [id number] Juan Santana 2023-05-14 21:00:00 2023-05-14 23:17:00 Emergency X Cheli SANDHU [facility] ERT [id number] [facility] 2023-05-14 21:00:00 2023-05-14 23:17:00 Emergency Cheli Sandhu [facility] 1.2.840.114 350.1.13.10 4.2.7.2.686 [id number] [facility] 2023-05-02 11:32:33 2023-05-02 11:32:33 Outpatient SFA [place] [id number] Juan Santana 2023-04-29 17:06:53 2023-04-29 17:06:53 Outpatient SFA [place] [id number] Juan Richard [place] 2023-03-11 14:00:00 2023-03-11 14:00:00 Outpatient SFA S[facility] [id number] Juan Santana 2022-11-26 09:14:01 2022-11-26 09:14:01 Outpatient SFA S[facility] [id number] Juan Santana 2022-10-04 13:25:10 2022-10-04 13:25:10 Outpatient SFA S[facility] [id number] Juan Santana 2022-07-13 10:45:38 2022-07-13 10:45:38 Outpatient SFA S[facility] [id number] Juan Santana 2022-07-12 14:10:28 2022-07-12 14:10:28 Outpatient SFA SFA [id number] Juan Santana 2022-07-11 13:37:25 2022-07-11 13:37:25 Outpatient SFA [place] [id number] Juan Santana 2022-04-12 13:31:38 2022-04-12 13:31:38 Outpatient SFA [place] [id number] Juan Santana 2022-04-12 00:00:00 2022-04-12 00:00:00 Outpatient Visit [id number] 2022-03-20 00:00:00 2022-03-20 00:00:00 Outpatient Visit [id number] 2022-02-05 00:00:00 2022-02-05 00:00:00 Orders Only Doctor Unassigned, [facility] [place] [address].2.840.114 350.1.13.10 4.2.7.2.686 [id number] [facility] 2022-01-19 00:00:00 2022-01-19 00:00:00 Orders Only Doctor Unassigned, [facility] [address].840.114 350.1.13.10 4.2.7.2.686 [id number] [facility] 2022-01-17 08:00:00 2022-01-17 08:00:00 Outpatient GLENN BOUCHER [facility]CAP[facility] JO ANN [id number] [facility] 2022-01-15 00:00:00 2022-01-15 00:00:00 Telephone Glenn Baker [facility] PATHOLOGIST ASSISTANT [facility] MAT[facility] & CHILD [facility] 1..840.114 350.1.13.10 4.2.7.2.686 [id number] [facility] 2022-01-12 12:00:00 2022-01-12 12:00:00 Outpatient Marvel Goldstein [facility]CAP[facility] JO ANN [id number] [facility] 2021-12-29 09:00:00 2021-12-29 09:25:[address] [facility] [id number] [facility] 2021-12-29 09:00:00 2021-12-29 09:25:36 Office Visit Kacie Manzano [facility] 1..840.114 350.1.13.10 4.2.7.2.686 [id number] [facility] 2021-12-29 09:00:00 2021-12-29 09:25:[address] [facility] [id number] [facility] 2021-12-29 09:00:00 2021-12-29 09:00:[address] [facility] [id number] [facility] 2021-12-28 16:00:00 2021-12-28 16:33:08 Office Visit Chata Holman [facility] PATHOLOGIST ASSISTANT [facility] & CHILD [facility] 1..840.114 350.1.13.10 4.2.7.2.686 [id number] [facility] 2021-12-28 16:00:00 2021-12-28 16:33:08 Outpatient R CHATA HOLMAN [facility] [id number] [facility] 2021-12-28 16:00:00 2021-12-28 16:00:00 Outpatient R CHATA HOLMAN [facility] [id number] [facility] 2021-12-28 00:00:00 2021-12-28 00:00:00 Orders Only Doctor Unassigned, [facility] 1.2840.114 350.1.13.10 4.2.7.2.686 [id number] [facility] 2021-06-12 09:00:00 2021-06-12 09:38:41 Outpatient R KACIE MANZANO [facility] [id number] [facility] 2021-06-12 08:36:22 2021-06-12 09:38:41 Office Visit Kacie Manzano [facility] 1.2.840.114 350.1.13.10 4.2.7.2.686 [id number] [facility] 2021-06-12 00:00:00 2021-06-12 00:00:00 Letter (Out) Kacie ManzanoCande [facility] 1.2.840.114 350.1.13.10 4.2.7.2.686 [id number] [facility] 2021-06-12 00:00:00 2021-06-12 00:00:00 Letter (Out) Kacie Manzano [facility] 1.2.840.114 350.1.13.10 4.2.7.2.686 [id number] [facility] 2021-05-19 00:00:00 2021-05-19 00:00:00 Telephone Kacie Manzano [facility] 1.2.840.114 350.1.13.10 4.2.7.2.686 [id number] [facility] 2021-05-10 14:26:29 2021-05-10 23:59:00 Outpatient R KACIE MANZANO [facility] [id number] [facility] 2021-05-10 14:26:29 2021-05-10 23:59:00 Hospital Encounter Kacie Manzano [facility] 1.2.840.114 350.1.13.10 4.2.7.2.686 [id number] [facility] 2021-04-10 13:02:51 2021-04-10 13:33:19 Office Visit Kacie Manzano [facility] 1.2.840.114 350.1.13.10 4.2.7.2.686 [id number] [facility] 2021-04-10 13:00:00 2021-04-10 13:00:00 Outpatient R KACIE MANZANO [facility] [id number] [facility] 2021-04-10 00:00:00 2021-04-10 00:00:00 Letter (Out) Kacie Manzano [facility] 1.2.840.114 350.1.13.10 4.2.7.2.686 [id number] [facility] 2021-04-10 00:00:00 2021-04-10 00:00:00 Orders Only Doctor Unassigned, [facility] 1.2840.114 350.1.13.10 4.2.7.2.686 [id number] [facility] 2021-03-01 00:00:00 2021-03-01 00:00:00 Telephone Glenn Baker [facility] PATHOLOGIST ASSISTANT [facility] CHILD [facility] 1.2.840.114 350.1.13.10 4.2.7.2.686 [id number] [facility] 2021-02-28 08:24:49 2021-02-28 09:16:09 Office Visit Glenn Baker [facility] PATHOLOGIST ASSISTANT [facility] 1.2.840.114 350.1.13.10 4.2.7.2.686 [id number] [facility] 2021-02-28 08:15:00 2021-02-28 08:15:00 Outpatient R GLENN BAKER [facility] [id number] [facility] 2021-02-28 00:00:00 2021-02-28 00:00:00 Letter (Out) Glenn Baker [facility] PATHOLOGIST ASSISTANT [facility] CHILD [facility] 1.2.840.114 350.1.13.10 4.2.7.2.686 [id number] [facility] 2021-02-28 00:00:00 2021-02-28 00:00:00 Letter (Out) Glenn Baker [facility] PATHOLOGIST ASSISTANT [facility] CHILD [facility] 1.2.840.114 350.1.13.10 4.2.7.2.686 [id number] [facility] 2021-02-27 00:00:00 2021-02-27 00:00:00 Telephone Glenn Baker [facility] PATHOLOGIST ASSISTANT [facility] CHILD [facility] 1.2.840.114 350.1.13.10 4.2.7.2.686 [id number] [facility] 2021-02-22 08:31:54 2021-02-22 09:08:46 Office Visit Glenn Baker Roshunda R [facility] PATHOLOGIST ASSISTANT [facility] CHILD [facility] 1.2840.114 350.1.13.10 4.2.7.2.686 [id number] [facility] 2021-02-22 08:15:00 2021-02-22 08:15:[address] [facility] [id number] [facility] 2021-02-22 00:00:00 2021-02-22 00:00:00 Orders Only Doctor Unassigned, [facility] 1.2840.114 350.1.13.10 4.2.7.2.686 [id number] [facility] 2020-11-01 00:00:00 2020-11-01 00:00:00 Telephone Glenn Baker [facility] PATHOLOGIST ASSISTANT [facility] CHILD [facility] 1.2840.114 350.1.13.10 4.2.7.2.686 [id number] [facility] 2020-11-01 00:00:00 2020-11-01 00:00:00 Orders Only Doctor Unassigned, [facility] 1.2840.114 350.1.13.10 4.2.7.2.686 [id number] [facility] 2020-10-24 12:00:00 2020-10-24 12:00:00 Outpatient GLENN BOUCHER [facility] JO ANN [id number] 2020-10-18 10:00:00 2020-10-18 23:59:00 Hospital Encounter Glenn Baker [facility] 1.2840.114 350.1.13.10 4.2.7.2.686 [id number] [facility] 2020-10-18 00:00:00 2020-10-18 00:00:[address] [facility] [id number] [facility] 2020-10-18 00:00:00 2020-10-18 00:00:00 Telephone Chata Holman [facility] PATHOLOGIST ASSISTANT [facility] MATER[facility] & CHILD [facility] 1.2.114 350.1.13.10 4.2.7.2.686 [id number] [facility] 2020-09-20 00:00:00 2020-09-20 00:00:[address] [facility] [id number] [facility] 2020-09-06 09:59:10 2020-09-06 10:36:20 Office Visit Glenn Baker [facility] PATHOLOGIST ASSISTANT [facility] CHILD [facility] 1.840.114 350.1.13.10 4.2.7.2.686 [id number] 2020-09-06 09:59:10 2020-09-06 10:36:20 Office Visit Glenn Baker [facility] PATHOLOGIST ASSISTANT [facility] CHILD [facility] 1.84.114 350.1.13.10 4.2.7.2.686 [id number] [facility] 2020-09-06 10:00:00 2020-09-06 10:00:[address] [facility] [id number] [facility] 2020-07-31 00:00:00 2020-07-31 00:00:00 Osiel Navarro [facility] PATHOLOGIST ASSISTANT [facility] & [facility]ILD [facility] 1.2.114 350.1.13.10 4.2.7.2.686 [id number] [facility] 2020-07-13 08:10:53 2020-07-13 08:51:04 Office Visit Osiel Vivas [facility] PATHOLOGIST ASSISTANT [facility] 1.2.114 350.1.13.10 4.2.7.2.686 [id number] [facility] 2020-07-13 08:15:00 2020-07-13 08:15:00 Outpatient R OSIEL VIV[facility] [id number] [facility] 2020-05-31 08:24:02 2020-05-31 08:54:02 Office Visit Osiel Vivas [facility] PATHOLOGIST ASSISTANT [facility] 1.20.114 350.1.13.10 4.2.7.2.686 [id number] [facility] 2020-05-31 08:30:00 2020-05-31 08:30:00 [id number] 2020-05-31 00:00:00 2020-05-31 00:00:00 Orders Only Doctor Unassigned, [facility] 1.0.114 350.1.13.10 4.2.7.2.686 [id number] [facility] 2020-04-25 11:24:00 2020-04-25 13:07:00 Emergency Guera Baker [facility] 1.284.114 350.1.13.10 4.2.7.2.686 [id number] [facility] 2020-04-25 00:00:00 2020-04-25 00:00:00 Orders Only Doctor Unassigned, [facility] 1.2840.114 350.1.13.10 4.2.7.2.686 [id number] [facility] 2020-04-21 09:15:40 2020-04-21 09:32:53 Nurse Visit Visit, Ang[facility]Rmchp [facility] 1.0.114 350.1.13.10 4.2.7.2.686 [id number] [facility] 2020-04-21 08:30:00 2020-04-21 08:30:[address] [facility] [id number] [facility] 2020-01-28 08:43:48 2020-01-28 09:22:35 Nurse Visit Visit, VipinRmchp Nurse Osiel Vivas [facility] PATHOLOGIST ASSISTANT [facility] 1..840.114 350.1.13.10 4.2.7.2.686 [id number] [facility] 2020-01-28 09:00:00 2020-01-28 09:00:[address] [facility] [id number] [facility] 2019-11-10 08:30:00 2019-11-10 08:30:00 Outpatient R OSIEL VIVAS [facility] [id number] [facility] 2019-11-05 08:32:17 2019-11-05 09:21:05 Office Visit Osiel Vivas [facility] PATHOLOGIST ASSISTANT [facility] 1.840.114 350.1.13.10 4.2.7.2.686 [id number] [facility] 2019-11-05 08:30:00 2019-11-05 08:30:00 Outpatient R OSIEL [facility] [id number] [facility] 2019-08-18 08:29:36 2019-08-18 09:09:50 Nurse Visit Visit, Brennon-Rmchp Osiel Smith [facility] PATHOLOGIST ASSISTANT [facility] 1..840.114 350.1.13.10 4.2.7.2.686 [id number] [facility] 2019-03-12 13:09:03 2019-03-12 14:19:18 Office Visit Aidan [facility] Resident Naveed Daley [facility] 1.84.114 350.1.13.10 4.2.7.2.686 [id number] [facility] 2019-03-12 00:00:00 2019-03-12 00:00:00 Orders Only Doctor Unassigned, [facility] 1..840.114 [id number] [facility] 2019-03-04 08:28:59 2019-03-04 08:46:23 Nurse Visit Visit, Ang-Rmchp Nurse Osiel Vivas [facility] PATHOLOGIST ASSISTANT [facility] 1..840.114 [id number] [facility] Results Test Description Test Time Test Comments Results Result Co mments Source Juan [id number] 00:00:00* Test Item Value Reference Range Interpretation Comme nts TSH (test code = 3016-3) 12.63 mIU/L Juan Richard AustinCULTURE, [id number] 00:00:00* Test Item Value Reference Range Interpretation Comme nts CULTURE, THROAT (test code = 626-2) SEE NOTE Juan Hilary [id number] 00:00:00* Test Item Value Reference Range Interpretation Comme nts TSH (test code = 3016-3) 12.63 mIU/L Juan Richard AustinCULTURE, [id number] 00:00:00* Test Item Value Reference Range Interpretation Comme nts CULTURE, THROAT (test code = 626-2) SEE NOTE Juan Richard AustinFECAL FAT, [id number] 00:00:00* Test Item Value Reference Range Interpretation Comme nts FECAL FAT, QUALITATIVE (test code = 81607-3) NORMAL Juan Richard AustinCLOSTRIDIUM DIFFICILE TOXIN/GDH W/REFL TO PCR [ADDED]2024-10-18 00:00:00* Test Item Value Reference Range Interpretation Comme nts CLOSTRIDIUM DIFFICILE TOXIN/ GDH W/REFL TO PCR (test code = 74348-9) SEE NOTE Juan Richard AustinFECAL FAT, [id number] 00:00:00* Test Item Value Reference Range Interpretation Comme nts FECAL FAT, QUALITATIVE (test code = 30510-3) NORMAL Juan Richard AustinCLOSTRIDIUM DIFFICILE TOXIN/GDH W/REFL TO PCR [ADDED]2024-10-18 00:00:00* Test Item Value Reference Range Interpretation Comme nts CLOSTRIDIUM DIFFICILE TOXIN/ GDH W/REFL TO PCR (test code = 08653-1) SEE NOTE Juan Richard AustinFECAL FAT, [id number] 00:00:00* Test Item Value Reference Range Interpretation Comme nts FECAL FAT, QUALITATIVE (test code = 33711-7) NORMAL Juan Richard AustinCLOSTRIDIUM DIFFICILE TOXIN/GDH W/REFL TO PCR [ADDED]2024-10-18 00:00:00* Test Item Value Reference Range Interpretation Comme nts CLOSTRIDIUM DIFFICILE TOXIN/ GDH W/REFL TO PCR (test code = 77150-8) SEE NOTE Juan SantanaCOMPREHENSIVE METABOLIC [id number] 00:00:00* Test Item Value Reference Range Interpretation Comme nts GLUCOSE (test code = 2345-7) 98 mg/dL UREA NITROGEN (BUN) (test code = 3094-0) 17 mg/dL CREATININE (test code = 2160-0) 1.36 mg/dL EGFR (test code = 41236-7) 50 mL/min/1.73m2 BUN/CREATININE RATIO (test code = 3097-3) 13 (calc) SODIUM (test code = 2951-2) 140 mmol/L POTASSIUM (test code = 2823-3) 4.4 mmol/L CHLORIDE (test code = 2075-0) 107 mmol/L CARBON DIOXIDE (test code = 2027-9) 24 mmol/L CALCIUM (test code = 10508-6) 9.5 mg/dL PROTEIN, TOTAL (test code = 2885-2) 7.3 g/dL ALBUMIN (test code = 1751-7) 4.4 g/dL GLOBULIN (test code = 37829-2) 2.9 g/dL(calc) ALBUMIN/GLOBULIN RATIO (test code = 1759-0) 1.5 (calc) BILIRUBIN, TOTAL (test code = 1975-2) 0.8 mg/dL ALKALINE PHOSPHATASE (test code = 6768-6) 87 U/L AST (test code = 1920-8) 21 U/L ALT (test code = 1742-6) 30 U/L [facility] [id number] 00:00:00* Test Item Value Reference Range Interpretation Comme nts GLUCOSE (test code = 2345-7) 98 mg/dL UREA NITROGEN (BUN) (test code = 3094-0) 17 mg/dL CREATININE (test code = 2160-0) 1.36 mg/dL EGFR (test code = 44905-4) 50 mL/min/1.73m2 BUN/CREATININE RATIO (test code = 3097-3) 13 (calc) SODIUM (test code = 2951-2) 140 mmol/L POTASSIUM (test code = 2823-3) 4.4 mmol/L CHLORIDE (test code = 2075-0) 107 mmol/L CARBON DIOXIDE (test code = 2027-) 24 mmol/L CALCIUM (test code = 73448-6) 9.5 mg/dL PROTEIN, TOTAL (test code = 2885-2) 7.3 g/dL ALBUMIN (test code = 1751-7) 4.4 g/dL GLOBULIN (test code = 03214-5) 2.9 g/dL(calc) ALBUMIN/GLOBULIN RATIO (test code = 1759-0) 1.5 (calc) BILIRUBIN, TOTAL (test code = 1975-2) 0.8 mg/dL ALKALINE PHOSPHATASE (test code = 6768-6) 87 U/L AST (test code = 1920-8) 21 U/L ALT (test code = 1742-6) 30 U/L Juan Richard [facility] [id number] 00:00:00* Test Item Value Reference Range Interpretation Comme nts GLUCOSE (test code = 2345-7) 98 mg/dL UREA NITROGEN (BUN) (test code = 3094-0) 17 mg/dL CREATININE (test code = 2160-0) 1.36 mg/dL EGFR (test code = 75818-1) 50 mL/min/1.73m2 BUN/CREATININE RATIO (test code = 3097-3) 13 (calc) SODIUM (test code = 2951-2) 140 mmol/L POTASSIUM (test code = 2823-3) 4.4 mmol/L CHLORIDE (test code = 5-0) 107 mmol/L CARBON DIOXIDE (test code = 2027-) 24 mmol/L CALCIUM (test code = 29060-5) 9.5 mg/dL PROTEIN, TOTAL (test code = 2885-2) 7.3 g/dL ALBUMIN (test code = 1751-7) 4.4 g/dL GLOBULIN (test code = 93105-6) 2.9 g/dL(calc) ALBUMIN/GLOBULIN RATIO (test code = 1759-0) 1.5 (calc) BILIRUBIN, TOTAL (test code = 1974-2) 0.8 mg/dL ALKALINE PHOSPHATASE (test code = 6768-6) 87 U/L AST (test code = 1920-8) 21 U/L ALT (test code = 1742-6) 30 U/L Juan SantanaCOMPREHENSIVE METABOLIC [id number] 05:23:58* Test Item Value Reference Range Interpretation Comme nts GLUCOSE (test code = 2217) 113 MG/DL 70-99 H BUN (test code = 8) 22 MG/DL 6-20 H CREATININE (test code = 2214) 1.42 MG/DL 0.60-1.30 H eGFR (2020 CKD-EPI) (test code = 48426) 47 ML/MIN/1.73 >60 L The NKF-ASN Taskforce recommends use of Cystatin C to confirm eGFR inadults at risk for CKD. [facility] offers eGFR with Cystatin C-Creatinineusing the 2020 CKD-EPI eGFR_creat-cystat equation (order code 3057) toincrease the accuracy of estimated GFR. For more information, contactyour financial analyst accountant or see announcement [email or web address] CALC BUN/CREAT (test code = 2234) 15 RATIO 6-28 SODIUM (test code = 2230) 139 MEQ/L 133-146 POTASSIUM (test code = 8) 4.5 MEQ/L 3.5-5.4 CHLORIDE (test code = 5) 103 MEQ/L 95-107 CARBON DIOXIDE (test code = 6) 21 MEQ/L 19-31 CALCIUM (test code = 2209) 9.8 MG/DL 8.5-10.5 PROTEIN, TOTAL (test code = 2229) 7.7 G/DL 6.1-8.3 ALBUMIN (test code = 220) 4.4 G/DL 3.5-5.2 CALC GLOBULIN (test code = 2240) 3.3 G/DL 1.9-3.7 CALC A/G RATIO (test code = 2234) 1.3 RATIO 1.0-2.6 BILIRUBIN, TOTAL (test code = 2206) 0.3 MG/DL <=1.2 ALKALINE PHOSPHATASE (test code = 220) 127 U/L 40-113 H AST (test code = 2218) 52 U/L 9-40 H ALT (test code = 221) 95 U/L 5-40 H LIPID [id number] 05:23:58* Test Item Value Reference Range Interpretation Comme nts CHOLESTEROL (test code = 0) 204 MG/DL <200 H TRIGLYCERIDES (test code = 2232) 157 MG/DL <150 H HDL CHOLESTEROL (test code = 2219) 48 MG/DL >39 CALC LDL CHOL (test code = 223) 129 MG/DL <100 H NOTE: CALCULATED LDL IS BASED ON LESLY-GRECO METHOD WHICHINCLUDES ADJUSTABLE TRIGLYCERIDE:VLDL CHOLESTEROL RATIO.THIS FACTOR VARIES BY MEASURED TRIGLYCERIDE AND NON-HDLCHOLESTEROL CONCENTRATIONS WITH INCREASED CALCULATED LDL SEENIN HIGHER TRIGLYCERIDE OR LOWER NON-HDL SPECIMENS. FOR MOREINFORMATION, SEE CLIENT ANNOUNCEMENT AT [email or web address] RISK RATIO LDL/HDL (test code = 223) 2.69 RATIO <3.22 UNLESS OTHERW ISE INDICATED, ALL TESTING PERFORMED AT [facility] [address] [id number] SELLING SPECIALIST: DERRICK FISHER M.D. CLIA NUMBER [id number] [facility]. [id number] COMPREHENSIVE METABOLIC [id number] 00:00:00* Test Item Value Reference Range Interpretation Comme nts GLUCOSE (test code = 2216) 113 MG/DL BUN (test code = 2207) 22 MG/DL CREATININE (test code = 2214) 1.42 MG/DL eGFR (2020 CKD-EPI) (test co de = 58198) 47 ML/MIN/1.73 CALC BUN/CREAT (test code = 2234) 15 RATIO SODIUM (test code = 2231) 139 MEQ/L POTASSIUM (test code = 2228) 4.5 MEQ/L CHLORIDE (test code = 2215) 103 MEQ/L CARBON DIOXIDE (test code = 2206) 21 MEQ/L CALCIUM (test code = 2209) 9.8 MG/DL PROTEIN, TOTAL (test code = 2229) 7.7 G/DL ALBUMIN (test code = 2201) 4.4 G/DL CALC GLOBULIN (test code = 2240) 3.3 G/DL CALC A/G RATIO (test code = 2234) 1.3 RATIO BILIRUBIN, TOTAL (test code = 2207) 0.3 MG/DL ALKALINE PHOSPHATASE (test code = 2204) 127 U/L AST (test code = 2218) 52 U/L ALT (test code = 2219) 95 U/L Juan SantanaLIPID [id number] 00:00:00* Test Item Value Reference Range Interpretation Comme nts CHOLESTEROL (test code = 2210) 204 MG/DL TRIGLYCERIDES (test code = 2232) 157 MG/DL HDL CHOLESTEROL (test code = 2220) 48 MG/DL CALC LDL CHOL (test code = 2237) 129 MG/DL RISK RATIO LDL/HDL (test cod e = 2238) 2.69 RATIO Juan SantanaCOMPREHENSIVE METABOLIC [id number] 00:00:00* Test Item Value Reference Range Interpretation Comme nts GLUCOSE (test code = 2217) 113 MG/DL BUN (test code = 2208) 22 MG/DL CREATININE (test code = 2214) 1.42 MG/DL eGFR (2020 CKD-EPI) (test co de = 09460) 47 ML/MIN/1.73 CALC BUN/CREAT (test code = 2235) 15 RATIO SODIUM (test code = 2231) 139 MEQ/L POTASSIUM (test code = 2228) 4.5 MEQ/L CHLORIDE (test code = 2215) 103 MEQ/L CARBON DIOXIDE (test code = 2206) 21 MEQ/L CALCIUM (test code = 2209) 9.8 MG/DL PROTEIN, TOTAL (test code = 2229) 7.7 G/DL ALBUMIN (test code = 2201) 4.4 G/DL CALC GLOBULIN (test code = 2240) 3.3 G/DL CALC A/G RATIO (test code = 2234) 1.3 RATIO BILIRUBIN, TOTAL (test code = 2207) 0.3 MG/DL ALKALINE PHOSPHATASE (test code = 2204) 127 U/L AST (test code = 2218) 52 U/L ALT (test code = 2219) 95 U/L Juan SantanaLIPID [id number] 00:00:00* Test Item Value Reference Range Interpretation Comme nts CHOLESTEROL (test code = 2210) 204 MG/DL TRIGLYCERIDES (test code = 2232) 157 MG/DL HDL CHOLESTEROL (test code = 2220) 48 MG/DL CALC LDL CHOL (test code = 2237) 129 MG/DL RISK RATIO LDL/HDL (test cod e = 2238) 2.69 RATIO Juan SantanaCOMPREHENSIVE METABOLIC [id number] 00:00:00* Test Item Value Reference Range Interpretation Comme nts GLUCOSE (test code = 2217) 113 MG/DL BUN (test code = 2208) 22 MG/DL CREATININE (test code = 2214) 1.42 MG/DL eGFR (2020 CKD-EPI) (test co de = 25379) 47 ML/MIN/1.73 CALC BUN/CREAT (test code = 2235) 15 RATIO SODIUM (test code = 2231) 139 MEQ/L POTASSIUM (test code = 2228) 4.5 MEQ/L CHLORIDE (test code = 2215) 103 MEQ/L CARBON DIOXIDE (test code = 2206) 21 MEQ/L CALCIUM (test code = 2209) 9.8 MG/DL PROTEIN, TOTAL (test code = 2229) 7.7 G/DL ALBUMIN (test code = 2201) 4.4 G/DL CALC GLOBULIN (test code = 2240) 3.3 G/DL CALC A/G RATIO (test code = 2234) 1.3 RATIO BILIRUBIN, TOTAL (test code = 2207) 0.3 MG/DL ALKALINE PHOSPHATASE (test code = 2204) 127 U/L AST (test code = 2218) 52 U/L ALT (test code = 2219) 95 U/L Juan SantanaLIPID [id number] 00:00:00* Test Item Value Reference Range Interpretation Comme nts CHOLESTEROL (test code = 2210) 204 MG/DL TRIGLYCERIDES (test code = 2232) 157 MG/DL HDL CHOLESTEROL (test code = 2220) 48 MG/DL CALC LDL CHOL (test code = 2237) 129 MG/DL RISK RATIO LDL/HDL (test cod e = 2238) 2.69 RATIO Juan SantanaCOMPREHENSIVE METABOLIC [id number] 00:00:00* Test Item Value Reference Range Interpretation Comme nts GLUCOSE (test code = 2217) 113 MG/DL BUN (test code = 2208) 22 MG/DL CREATININE (test code = 2214) 1.42 MG/DL eGFR (2020 CKD-EPI) (test co de = 33088) 47 ML/MIN/1.73 CALC BUN/CREAT (test code = 2235) 15 RATIO SODIUM (test code = 2231) 139 MEQ/L POTASSIUM (test code = 2228) 4.5 MEQ/L CHLORIDE (test code = 2215) 103 MEQ/L CARBON DIOXIDE (test code = 2206) 21 MEQ/L CALCIUM (test code = 2209) 9.8 MG/DL PROTEIN, TOTAL (test code = 2229) 7.7 G/DL ALBUMIN (test code = 2201) 4.4 G/DL CALC GLOBULIN (test code = 2240) 3.3 G/DL CALC A/G RATIO (test code = 2234) 1.3 RATIO BILIRUBIN, TOTAL (test code = 2207) 0.3 MG/DL ALKALINE PHOSPHATASE (test code = 2204) 127 U/L AST (test code = 2218) 52 U/L ALT (test code = 2219) 95 U/L Juan Richard AustinLIPID [id number] 00:00:00* Test Item Value Reference Range Interpretation Comme nts CHOLESTEROL (test code = 2210) 204 MG/DL TRIGLYCERIDES (test code = 2232) 157 MG/DL HDL CHOLESTEROL (test code = 2220) 48 MG/DL CALC LDL CHOL (test code = 2237) 129 MG/DL RISK RATIO LDL/HDL (test cod e = 2238) 2.69 RATIO Juan Richard AustinCOMPREHENSIVE METABOLIC [id number] 00:00:00* Test Item Value Reference Range Interpretation Comme nts GLUCOSE (test code = 2217) 113 MG/DL BUN (test code = 2208) 22 MG/DL CREATININE (test code = 2214) 1.42 MG/DL eGFR (2020 CKD-EPI) (test co de = 72591) 47 ML/MIN/1.73 CALC BUN/CREAT (test code = 2235) 15 RATIO SODIUM (test code = 2231) 139 MEQ/L POTASSIUM (test code = 2228) 4.5 MEQ/L CHLORIDE (test code = 2215) 103 MEQ/L CARBON DIOXIDE (test code = 2206) 21 MEQ/L CALCIUM (test code = 2209) 9.8 MG/DL PROTEIN, TOTAL (test code = 2229) 7.7 G/DL ALBUMIN (test code = 2201) 4.4 G/DL CALC GLOBULIN (test code = 2240) 3.3 G/DL CALC A/G RATIO (test code = 2234) 1.3 RATIO BILIRUBIN, TOTAL (test code = 2207) 0.3 MG/DL ALKALINE PHOSPHATASE (test code = 2204) 127 U/L AST (test code = 2218) 52 U/L ALT (test code = 2219) 95 U/L Juan Richard AustinLIPID [id number] 00:00:00* Test Item Value Reference Range Interpretation Comme nts CHOLESTEROL (test code = 2210) 204 MG/DL TRIGLYCERIDES (test code = 2232) 157 MG/DL HDL CHOLESTEROL (test code = 2220) 48 MG/DL CALC LDL CHOL (test code = 2237) 129 MG/DL RISK RATIO LDL/HDL (test cod e = 2238) 2.69 RATIO Juan Richard MaxHEPATITIS PANEL, [id number] 09:01:23* Test Item Value Reference Range Interpretation Comments HEPATITIS A TOTAL AB (test code = 2725) REACTIVE NON-REACTIVE A HEPATITIS B SURF AG (test code = 2739) NON-REACTIVE NON-REACTIVE HEP B CORE TOTAL AB (test code = 2729) NON-REACTIVE NON-REACTIVE HEPATITIS B SURFACE AB (test code = 2737) REACTIVE NON-REACTIVE A HEPATITIS C ANTIBODY (test code = 4675) NON-REACTIVE NON-REACTIVE INTERPRETATION HEPATITIS A: (test code = 2552) (NOTE) Hepatitis A sero logy consistent with past exposure or previousvaccination to hepatitis A virus. No evidence of current acutehepatitis A infection. INTERPRETATION HEPATITIS B: (test code = 96130) (NOTE) Hepatitis B sero logy consistent with immunity to hepatitis Bfrom previous hepatitis B vaccination. INTERPRETATION HEPATITIS C: (test code = 19908) (NOTE) Hepatitis C sero logy shows no evidence of exposure to hepatitisC virus at this time. It can take up to 12 months after exposure tothe hepatitis C virus for antibodies to become detectable in the blood in certain patients. HEPATITIS A [id number] 09:01:23* Test Item Value Reference Range Interpretation Comme nts HEPATITIS A IgM (test code = 2728) NON-REACTIVE NON-REACTIVE UNLESS OTHERW ISE INDICATED, ALL TESTING PERFORMED AT [facility] [address] [place] [address] SELLING SPECIALIST: DERRICK FISHER M.D. CLIA NUMBER [id number] [facility]. [id number] HEPATITIS PROFILE (A,B,C)2024-06-25 00:00:00* Test Item Value Reference Range Interpretation Comme nts HEPATITIS A TOTAL AB (test c ode = 2725) REACTIVE HEPATITIS B SURF AG (test co de = 2739) NON-REACTIVE HEP B CORE TOTAL AB (test co de = 2729) NON-REACTIVE HEPATITIS B SURFACE AB (test code = 2737) REACTIVE HEPATITIS C ANTIBODY (test c ode = 4675) NON-REACTIVE INTERPRETATION HEPATITIS A: (test code = 2552) (NOTE) INTERPRETATION HEPATITIS B: (test code = 89348) (NOTE) INTERPRETATION HEPATITIS C: (test code = 18748) (NOTE) Juan Richard AustinHEPATITIS A IgM [REFLEX]2024-06-25 00:00:00* Test Item Value Reference Range Interpretation Comme nts HEPATITIS A IgM (test code = 2728) NON-REACTIVE Juan Richard AustinSINDYPATITIS PROFILE (A,B,C)2024-06-25 00:00:00* Test Item Value Reference Range Interpretation Comme nts HEPATITIS A TOTAL AB (test c ode = 2725) REACTIVE HEPATITIS B SURF AG (test co de = 2739) NON-REACTIVE HEP B CORE TOTAL AB (test co de = 2729) NON-REACTIVE HEPATITIS B SURFACE AB (test code = 2737) REACTIVE HEPATITIS C ANTIBODY (test c ode = 4675) NON-REACTIVE INTERPRETATION HEPATITIS A: (test code = 2552) (NOTE) INTERPRETATION HEPATITIS B: (test code = 97568) (NOTE) INTERPRETATION HEPATITIS C: (test code = 63096) (NOTE) Juan Richard AustinHEPATITIS A IgM [REFLEX]2024-06-25 00:00:00* Test Item Value Reference Range Interpretation Comme nts HEPATITIS A IgM (test code = 2728) NON-REACTIVE Juan Richard AustinHEPATITIS PROFILE (A,B,C)2024-06-25 00:00:00* Test Item Value Reference Range Interpretation Comme nts HEPATITIS A TOTAL AB (test c ode = 2725) REACTIVE HEPATITIS B SURF AG (test co de = 2739) NON-REACTIVE HEP B CORE TOTAL AB (test co de = 2729) NON-REACTIVE HEPATITIS B SURFACE AB (test code = 2737) REACTIVE HEPATITIS C ANTIBODY (test c ode = 4675) NON-REACTIVE INTERPRETATION HEPATITIS A: (test code = 2552) (NOTE) INTERPRETATION HEPATITIS B: (test code = 45232) (NOTE) INTERPRETATION HEPATITIS C: (test code = 89454) (NOTE) Juan Richard AustinHEPATITIS A IgM [REFLEX]2024-06-25 00:00:00* Test Item Value Reference Range Interpretation Comme nts HEPATITIS A IgM (test code = 2728) NON-REACTIVE Juan Richard AustinHEPATITIS PROFILE (A,B,C)2024-06-25 00:00:00* Test Item Value Reference Range Interpretation Comme nts HEPATITIS A TOTAL AB (test c ode = 2725) REACTIVE HEPATITIS B SURF AG (test co de = 2739) NON-REACTIVE HEP B CORE TOTAL AB (test co de = 2729) NON-REACTIVE HEPATITIS B SURFACE AB (test code = 2737) REACTIVE HEPATITIS C ANTIBODY (test c ode = 4675) NON-REACTIVE INTERPRETATION HEPATITIS A: (test code = 2552) (NOTE) INTERPRETATION HEPATITIS B: (test code = 03897) (NOTE) INTERPRETATION HEPATITIS C: (test code = 44633) (NOTE) Juan Richard AustinHEPATITIS A IgM [REFLEX]2024-06-25 00:00:00* Test Item Value Reference Range Interpretation Comme nts HEPATITIS A IgM (test code = 2728) NON-REACTIVE Juan Richard AustinHEPATITIS PROFILE (A,B,C)2024-06-25 00:00:00* Test Item Value Reference Range Interpretation Comme nts HEPATITIS A TOTAL AB (test c ode = 2725) REACTIVE HEPATITIS B SURF AG (test co de = 2739) NON-REACTIVE HEP B CORE TOTAL AB (test co de = 2729) NON-REACTIVE HEPATITIS B SURFACE AB (test code = 2737) REACTIVE HEPATITIS C ANTIBODY (test c ode = 4675) NON-REACTIVE INTERPRETATION HEPATITIS A: (test code = 2552) (NOTE) INTERPRETATION HEPATITIS B: (test code = 67254) (NOTE) INTERPRETATION HEPATITIS C: (test code = 96266) (NOTE) Juan PandyaPATITIS A IgM [REFLEX]2024-06-25 00:00:00* Test Item Value Reference Range Interpretation Comme nts HEPATITIS A IgM (test code = 2728) NON-REACTIVE Juan Richard AustinHEPATITIS PROFILE (A,B,C)2024-06-25 00:00:00* Test Item Value Reference Range Interpretation Comme nts HEPATITIS A TOTAL AB (test c ode = 2725) REACTIVE HEPATITIS B SURF AG (test co de = 2739) NON-REACTIVE HEP B CORE TOTAL AB (test co de = 2729) NON-REACTIVE HEPATITIS B SURFACE AB (test code = 2737) REACTIVE HEPATITIS C ANTIBODY (test c ode = 4675) NON-REACTIVE INTERPRETATION HEPATITIS A: (test code = 2552) (NOTE) INTERPRETATION HEPATITIS B: (test code = 74528) (NOTE) INTERPRETATION HEPATITIS C: (test code = 67881) (NOTE) Juan SantanaHEPATITIS A IgM [REFLEX]2024-06-25 00:00:00* Test Item Value Reference Range Interpretation Comme nts HEPATITIS A IgM (test code = 2728) NON-REACTIVE Juan Richard AustinPATITIS PROFILE (A,B,C)2024-06-25 00:00:00* Test Item Value Reference Range Interpretation Comme nts HEPATITIS A TOTAL AB (test c ode = 2725) REACTIVE HEPATITIS B SURF AG (test co de = 2739) NON-REACTIVE HEP B CORE TOTAL AB (test co de = 2729) NON-REACTIVE HEPATITIS B SURFACE AB (test code = 2737) REACTIVE HEPATITIS C ANTIBODY (test c ode = 4675) NON-REACTIVE INTERPRETATION HEPATITIS A: (test code = 2552) (NOTE) INTERPRETATION HEPATITIS B: (test code = 94170) (NOTE) INTERPRETATION HEPATITIS C: (test code = 01593) (NOTE) Juan Richard AustinHEPATITIS A IgM [REFLEX]2024-06-25 00:00:00* Test Item Value Reference Range Interpretation Comme nts HEPATITIS A IgM (test code = 2728) NON-REACTIVE Juan Richard AustinHEPATITIS PROFILE (A,B,C)2024-06-25 00:00:00* Test Item Value Reference Range Interpretation Comme nts HEPATITIS A TOTAL AB (test c ode = 2725) REACTIVE HEPATITIS B SURF AG (test co de = 2739) NON-REACTIVE HEP B CORE TOTAL AB (test co de = 2729) NON-REACTIVE HEPATITIS B SURFACE AB (test code = 2737) REACTIVE HEPATITIS C ANTIBODY (test c ode = 4675) NON-REACTIVE INTERPRETATION HEPATITIS A: (test code = 2552) (NOTE) INTERPRETATION HEPATITIS B: (test code = 55844) (NOTE) INTERPRETATION HEPATITIS C: (test code = 42414) (NOTE) Juan Richard AustinHEPATITIS A IgM [REFLEX]2024-06-25 00:00:00* Test Item Value Reference Range Interpretation Comme nts HEPATITIS A IgM (test code = 2728) NON-REACTIVE Juan Richard AustinHEPATITIS PROFILE (A,B,C)2024-06-25 00:00:00* Test Item Value Reference Range Interpretation Comme nts HEPATITIS A TOTAL AB (test c ode = 2725) REACTIVE HEPATITIS B SURF AG (test co de = 2739) NON-REACTIVE HEP B CORE TOTAL AB (test co de = 2729) NON-REACTIVE HEPATITIS B SURFACE AB (test code = 2737) REACTIVE HEPATITIS C ANTIBODY (test c ode = 4675) NON-REACTIVE INTERPRETATION HEPATITIS A: (test code = 2552) (NOTE) INTERPRETATION HEPATITIS B: (test code = 53822) (NOTE) INTERPRETATION HEPATITIS C: (test code = 78590) (NOTE) Juan Richard AustinHEPATITIS A IgM [REFLEX]2024-06-25 00:00:00* Test Item Value Reference Range Interpretation Comme nts HEPATITIS A IgM (test code = 2728) NON-REACTIVE Juan Richard AustinHEPATITIS PROFILE (A,B,C)2024-06-25 00:00:00* Test Item Value Reference Range Interpretation Comme nts HEPATITIS A TOTAL AB (test c ode = 2725) REACTIVE HEPATITIS B SURF AG (test co de = 2739) NON-REACTIVE HEP B CORE TOTAL AB (test co de = 2729) NON-REACTIVE HEPATITIS B SURFACE AB (test code = 2737) REACTIVE HEPATITIS C ANTIBODY (test c ode = 4675) NON-REACTIVE INTERPRETATION HEPATITIS A: (test code = 2552) (NOTE) INTERPRETATION HEPATITIS B: (test code = 24439) (NOTE) INTERPRETATION HEPATITIS C: (test code = 57929) (NOTE) Juan Londono A IgM [REFLEX]2024-06-25 00:00:00* Test Item Value Reference Range Interpretation Comme nts HEPATITIS A IgM (test code = 2728) NON-REACTIVE Juan Branch, [id number] 00:00:00* Test Item Value Reference Range Interpretation Comme nts CULTURE, URINE (test code = 89720) SPECIMEN NUMBER: [id number] Juan Branch [id number] 00:00:00* Test Item Value Reference Range Interpretation Comme nts CULTURE, URINE (test code = 97359) SPECIMEN NUMBER: [id number] Juan Branch, [id number] 00:00:00* Test Item Value Reference Range Interpretation Comme nts CULTURE, URINE (test code = 66598) SPECIMEN NUMBER: [id number] Juan Branch, [id number] 00:00:00* Test Item Value Reference Range Interpretation Comme nts CULTURE, URINE (test code = 81149) SPECIMEN NUMBER: [id number] Juan Branch, [id number] 00:00:00* Test Item Value Reference Range Interpretation Comme nts CULTURE, URINE (test code = 62044) SPECIMEN NUMBER: [id number] Juan Branch, [id number] 00:00:00* Test Item Value Reference Range Interpretation Comme nts CULTURE, URINE (test code = 98912) SPECIMEN NUMBER: [id number] Juan Branch, [id number] 00:00:00* Test Item Value Reference Range Interpretation Comme nts CULTURE, URINE (test code = 22170) SPECIMEN NUMBER: [id number] Juan DobbsLTJESUS, [id number] 00:00:00* Test Item Value Reference Range Interpretation Comme nts CULTURE, URINE (test code = 02661) SPECIMEN NUMBER: [id number] Juan Branch, [id number] 00:00:00* Test Item Value Reference Range Interpretation Comme nts CULTURE, URINE (test code = 97402) SPECIMEN NUMBER: [id number] Juan Branch, [id number] 00:00:00* Test Item Value Reference Range Interpretation Comme nts CULTURE, URINE (test code = 10537) SPECIMEN NUMBER: [id number] Juan Branch, [id number] 00:00:00* Test Item Value Reference Range Interpretation Comme nts CULTURE, URINE (test code = 48715) SPECIMEN NUMBER: [id number] Juan SantanaHEMOGLOBIN [id number] 00:00:00* Test Item Value Reference Range Interpretation Comme nts HEMOGLOBIN A1c (test code = 63496) 5.6 % Juan SantanaCOMPREHENSIVE METABOLIC [id number] 00:00:00* Test Item Value Reference Range Interpretation Comme nts GLUCOSE (test code = 2217) 104 MG/DL BUN (test code = 2208) 13 MG/DL CREATININE (test code = 2214) 1.12 MG/DL eGFR (2020 CKD-EPI) (test co de = 52195) 63 ML/MIN/1.73 CALC BUN/CREAT (test code = 2235) 12 RATIO SODIUM (test code = 2231) 137 MEQ/L POTASSIUM (test code = 2228) 4.2 MEQ/L CHLORIDE (test code = 2215) 99 MEQ/L CARBON DIOXIDE (test code = 2206) 23 MEQ/L CALCIUM (test code = 2209) 9.8 MG/DL PROTEIN, TOTAL (test code = 2229) 7.7 G/DL ALBUMIN (test code = 2201) 4.5 G/DL CALC GLOBULIN (test code = 2240) 3.2 G/DL CALC A/G RATIO (test code = 2234) 1.4 RATIO BILIRUBIN, TOTAL (test code = 2207) 0.5 MG/DL ALKALINE PHOSPHATASE (test code = 2204) 193 U/L AST (test code = 2218) 95 U/L ALT (test code = 2219) 128 U/L Juan SantanaTSH, THIRD [id number] 00:00:00* Test Item Value Reference Range Interpretation Comme nts TSH, THIRD GENERATION (test code = 2821) 3.100 UIU/ML Juan SantanaCBC W/AUTO [id number] 00:00:00* Test Item Value Reference Range Interpretation Comme nts WBC (test code = 1001) 10.5 K/UL RBC (test code = 1002) 4.60 M/UL HEMOGLOBIN (test code = 1003) 14.9 G/DL HEMATOCRIT (test code = 1004) 44.5 % MCV (test code = 1005) 96.7 fL MCH (test code = 1006) 32.4 PG MCHC (test code = 1007) 33.5 G/DL RDW (test code = 1038) 11.8 % NEUTROPHILS (test code = 1008) 68.7 % LYMPHOCYTES (test code = 1010) 23.2 % MONOCYTES (test code = 1011) 6.3 % EOSINOPHILS (test code = 1012) 0.9 % BASOPHILS (test code = 1013) 0.3 % IMMATURE GRANULOCYTES (test code = 1036) 0.6 % NUCLEATED RBCS (test code = 1065) 0.0 /100WBC'S PLATELET COUNT (test code = 1015) 360 K/UL ABSOLUTE NEUTROPHILS (test c ode = 1066) 7.19 K/UL ABSOLUTE LYMPHOCYTES (test c ode = 1067) 2.42 K/UL ABSOLUTE MONOCYTES (test cod e = 1068) 0.66 K/UL ABSOLUTE EOSINOPHILS (test c ode = 1040) 0.09 K/UL ABSOLUTE BASOPHILS (test cod e = 1069) 0.03 K/UL ABS IMMATURE GRANULOCYTES (t est code = 1020) 0.06 K/UL ABS NUCLEATED RBCS (test cod e = 11554) 0.00 K/UL Juan SantanaVAGINAL PATHOGENS DNA [id number] 00:00:00* Test Item Value Reference Range Interpretation Comme nts MARLENE SPECIES (test code = ) NEGATIVE G. VAGINALIS (test code = ) NEGATIVE T. VAGINALIS (test code = ) NEGATIVE Juan SantanaHEMOGLOBIN [id number] 00:00:00* Test Item Value Reference Range Interpretation Comme nts HEMOGLOBIN A1c (test code = 39354) 5.6 % Juan SantanaCOMPREHENSIVE METABOLIC [id number] 00:00:00* Test Item Value Reference Range Interpretation Comme nts GLUCOSE (test code = 221) 104 MG/DL BUN (test code = 2208) 13 MG/DL CREATININE (test code = 2214) 1.12 MG/DL eGFR (2020 CKD-EPI) (test co de = 85345) 63 ML/MIN/1.73 CALC BUN/CREAT (test code = 2235) 12 RATIO SODIUM (test code = 2231) 137 MEQ/L POTASSIUM (test code = 2228) 4.2 MEQ/L CHLORIDE (test code = 2215) 99 MEQ/L CARBON DIOXIDE (test code = 2206) 23 MEQ/L CALCIUM (test code = 2209) 9.8 MG/DL PROTEIN, TOTAL (test code = 2229) 7.7 G/DL ALBUMIN (test code = 2201) 4.5 G/DL CALC GLOBULIN (test code = 2240) 3.2 G/DL CALC A/G RATIO (test code = 2234) 1.4 RATIO BILIRUBIN, TOTAL (test code = 7) 0.5 MG/DL ALKALINE PHOSPHATASE (test code = 2203) 193 U/L AST (test code = 221) 95 U/L ALT (test code = 2219) 128 U/L Juan BerriosH, THIRD [id number] 00:00:00* Test Item Value Reference Range Interpretation Comme nts TSH, THIRD GENERATION (test code = 2821) 3.100 UIU/ML Juan Richard MaxCBC W/AUTO [id number] 00:00:00* Test Item Value Reference Range Interpretation Comme nts WBC (test code = 1001) 10.5 K/UL RBC (test code = 1002) 4.60 M/UL HEMOGLOBIN (test code = 1003) 14.9 G/DL HEMATOCRIT (test code = 1004) 44.5 % MCV (test code = 1005) 96.7 fL MCH (test code = 1006) 32.4 PG MCHC (test code = 1007) 33.5 G/DL RDW (test code = 1038) 11.8 % NEUTROPHILS (test code = 1008) 68.7 % LYMPHOCYTES (test code = 1010) 23.2 % MONOCYTES (test code = 1011) 6.3 % EOSINOPHILS (test code = 1012) 0.9 % BASOPHILS (test code = 1013) 0.3 % IMMATURE GRANULOCYTES (test code = 1036) 0.6 % NUCLEATED RBCS (test code = 1065) 0.0 /100WBC'S PLATELET COUNT (test code = 1015) 360 K/UL ABSOLUTE NEUTROPHILS (test c ode = 1066) 7.19 K/UL ABSOLUTE LYMPHOCYTES (test c ode = 1067) 2.42 K/UL ABSOLUTE MONOCYTES (test cod e = 1068) 0.66 K/UL ABSOLUTE EOSINOPHILS (test c ode = 1040) 0.09 K/UL ABSOLUTE BASOPHILS (test cod e = 1069) 0.03 K/UL ABS IMMATURE GRANULOCYTES (t est code = 1020) 0.06 K/UL ABS NUCLEATED RBCS (test cod e = 25261) 0.00 K/UL Juan Richard AustinVAGINAL PATHOGENS DNA [id number] 00:00:00* Test Item Value Reference Range Interpretation Comme nts MARLENE SPECIES (test code = 24677) NEGATIVE G. VAGINALIS (test code = 02087) NEGATIVE T. VAGINALIS (test code = 38326) NEGATIVE Juan Richard AustinHEMOGLOBIN [id number] 00:00:00* Test Item Value Reference Range Interpretation Comme nts HEMOGLOBIN A1c (test code = 97294) 5.6 % Juan Richard AustinCOMPREHENSIVE METABOLIC [id number] 00:00:00* Test Item Value Reference Range Interpretation Comme nts GLUCOSE (test code = 2217) 104 MG/DL BUN (test code = 2208) 13 MG/DL CREATININE (test code = 2214) 1.12 MG/DL eGFR (2020 CKD-EPI) (test co de = 13373) 63 ML/MIN/1.73 CALC BUN/CREAT (test code = 2235) 12 RATIO SODIUM (test code = 2231) 137 MEQ/L POTASSIUM (test code = 2228) 4.2 MEQ/L CHLORIDE (test code = 2215) 99 MEQ/L CARBON DIOXIDE (test code = 2206) 23 MEQ/L CALCIUM (test code = 2209) 9.8 MG/DL PROTEIN, TOTAL (test code = 2229) 7.7 G/DL ALBUMIN (test code = 2201) 4.5 G/DL CALC GLOBULIN (test code = 2240) 3.2 G/DL CALC A/G RATIO (test code = 2234) 1.4 RATIO BILIRUBIN, TOTAL (test code = 2207) 0.5 MG/DL ALKALINE PHOSPHATASE (test code = 2204) 193 U/L AST (test code = 2218) 95 U/L ALT (test code = 2219) 128 U/L Juan Petty, THIRD [id number] 00:00:00* Test Item Value Reference Range Interpretation Comme nts TSH, THIRD GENERATION (test code = 2821) 3.100 UIU/ML Juan SantanaCBC W/AUTO [id number] 00:00:00* Test Item Value Reference Range Interpretation Comme nts WBC (test code = 1001) 10.5 K/UL RBC (test code = 1002) 4.60 M/UL HEMOGLOBIN (test code = 1003) 14.9 G/DL HEMATOCRIT (test code = 1004) 44.5 % MCV (test code = 1005) 96.7 fL MCH (test code = 1006) 32.4 PG MCHC (test code = 1007) 33.5 G/DL RDW (test code = 1038) 11.8 % NEUTROPHILS (test code = 1008) 68.7 % LYMPHOCYTES (test code = 1010) 23.2 % MONOCYTES (test code = 1011) 6.3 % EOSINOPHILS (test code = 1012) 0.9 % BASOPHILS (test code = 1013) 0.3 % IMMATURE GRANULOCYTES (test code = 1036) 0.6 % NUCLEATED RBCS (test code = 1065) 0.0 /100WBC'S PLATELET COUNT (test code = 1015) 360 K/UL ABSOLUTE NEUTROPHILS (test c ode = 1066) 7.19 K/UL ABSOLUTE LYMPHOCYTES (test c ode = 1067) 2.42 K/UL ABSOLUTE MONOCYTES (test cod e = 1068) 0.66 K/UL ABSOLUTE EOSINOPHILS (test c ode = 1040) 0.09 K/UL ABSOLUTE BASOPHILS (test cod e = 1069) 0.03 K/UL ABS IMMATURE GRANULOCYTES (t est code = 1020) 0.06 K/UL ABS NUCLEATED RBCS (test cod e = 21163) 0.00 K/UL Juan SantanaVAGINAL PATHOGENS DNA [id number] 00:00:00* Test Item Value Reference Range Interpretation Comme nts MARLENE SPECIES (test code = 78186) NEGATIVE G. VAGINALIS (test code = ) NEGATIVE T. VAGINALIS (test code = 42661) NEGATIVE Juan SantanaHEMOGLOBIN [id number] 00:00:00* Test Item Value Reference Range Interpretation Comme oneal HEMOGLOBIN A1c (test code = 18483) 5.6 % Juan SantanaCOMPREHENSIVE METABOLIC [id number] 00:00:00* Test Item Value Reference Range Interpretation Comme nts GLUCOSE (test code = 7) 104 MG/DL BUN (test code = 2208) 13 MG/DL CREATININE (test code = 2214) 1.12 MG/DL eGFR (2020 CKD-EPI) (test co de = 95988) 63 ML/MIN/1.73 CALC BUN/CREAT (test code = 2235) 12 RATIO SODIUM (test code = 2231) 137 MEQ/L POTASSIUM (test code = 2228) 4.2 MEQ/L CHLORIDE (test code = 2215) 99 MEQ/L CARBON DIOXIDE (test code = 2206) 23 MEQ/L CALCIUM (test code = 2209) 9.8 MG/DL PROTEIN, TOTAL (test code = 2229) 7.7 G/DL ALBUMIN (test code = 2201) 4.5 G/DL CALC GLOBULIN (test code = 2240) 3.2 G/DL CALC A/G RATIO (test code = 2234) 1.4 RATIO BILIRUBIN, TOTAL (test code = 2207) 0.5 MG/DL ALKALINE PHOSPHATASE (test code = 2204) 193 U/L AST (test code = 2218) 95 U/L ALT (test code = 2219) 128 U/L Juan SantanaTSH, THIRD [id number] 00:00:00* Test Item Value Reference Range Interpretation Comme nts TSH, THIRD GENERATION (test code = 2821) 3.100 UIU/ML Juan SantanaCBC W/AUTO [id number] 00:00:00* Test Item Value Reference Range Interpretation Comme nts WBC (test code = 1001) 10.5 K/UL RBC (test code = 1002) 4.60 M/UL HEMOGLOBIN (test code = 1003) 14.9 G/DL HEMATOCRIT (test code = 1004) 44.5 % MCV (test code = 1005) 96.7 fL MCH (test code = 1006) 32.4 PG MCHC (test code = 1007) 33.5 G/DL RDW (test code = 1038) 11.8 % NEUTROPHILS (test code = 1008) 68.7 % LYMPHOCYTES (test code = 1010) 23.2 % MONOCYTES (test code = 1011) 6.3 % EOSINOPHILS (test code = 1012) 0.9 % BASOPHILS (test code = 1013) 0.3 % IMMATURE GRANULOCYTES (test code = 1036) 0.6 % NUCLEATED RBCS (test code = 1065) 0.0 /100WBC'S PLATELET COUNT (test code = 1015) 360 K/UL ABSOLUTE NEUTROPHILS (test c ode = 1066) 7.19 K/UL ABSOLUTE LYMPHOCYTES (test c ode = 1067) 2.42 K/UL ABSOLUTE MONOCYTES (test cod e = 1068) 0.66 K/UL ABSOLUTE EOSINOPHILS (test c ode = 1040) 0.09 K/UL ABSOLUTE BASOPHILS (test cod e = 1069) 0.03 K/UL ABS IMMATURE GRANULOCYTES (t est code = 1020) 0.06 K/UL ABS NUCLEATED RBCS (test cod e = 83057) 0.00 K/UL Juan Richard AustinVAGINAL PATHOGENS DNA [id number] 00:00:00* Test Item Value Reference Range Interpretation Comme nts MARLENE SPECIES (test code = ) NEGATIVE G. VAGINALIS (test code = ) NEGATIVE T. VAGINALIS (test code = ) NEGATIVE Juan Richard AustinHEMOGLOBIN [id number] 00:00:00* Test Item Value Reference Range Interpretation Comme nts HEMOGLOBIN A1c (test code = 60769) 5.6 % uJan SantanaCOMPREHENSIVE METABOLIC [id number] 00:00:00* Test Item Value Reference Range Interpretation Comme nts GLUCOSE (test code = 2217) 104 MG/DL BUN (test code = 2208) 13 MG/DL CREATININE (test code = 2214) 1.12 MG/DL eGFR (2020 CKD-EPI) (test co de = 12743) 63 ML/MIN/1.73 CALC BUN/CREAT (test code = 2235) 12 RATIO SODIUM (test code = 2231) 137 MEQ/L POTASSIUM (test code = 2228) 4.2 MEQ/L CHLORIDE (test code = 2215) 99 MEQ/L CARBON DIOXIDE (test code = 2206) 23 MEQ/L CALCIUM (test code = 2209) 9.8 MG/DL PROTEIN, TOTAL (test code = 2229) 7.7 G/DL ALBUMIN (test code = 2201) 4.5 G/DL CALC GLOBULIN (test code = 2240) 3.2 G/DL CALC A/G RATIO (test code = 2234) 1.4 RATIO BILIRUBIN, TOTAL (test code = 2207) 0.5 MG/DL ALKALINE PHOSPHATASE (test code = 2204) 193 U/L AST (test code = 2218) 95 U/L ALT (test code = 2219) 128 U/L Juan SantanaTSH, THIRD [id number] 00:00:00* Test Item Value Reference Range Interpretation Comme nts TSH, THIRD GENERATION (test code = 2821) 3.100 UIU/ML Juan SantanaCBC W/AUTO [id number] 00:00:00* Test Item Value Reference Range Interpretation Comme nts WBC (test code = 1001) 10.5 K/UL RBC (test code = 1002) 4.60 M/UL HEMOGLOBIN (test code = 1003) 14.9 G/DL HEMATOCRIT (test code = 1004) 44.5 % MCV (test code = 1005) 96.7 fL MCH (test code = 1006) 32.4 PG MCHC (test code = 1007) 33.5 G/DL RDW (test code = 1038) 11.8 % NEUTROPHILS (test code = 1008) 68.7 % LYMPHOCYTES (test code = 1010) 23.2 % MONOCYTES (test code = 1011) 6.3 % EOSINOPHILS (test code = 1012) 0.9 % BASOPHILS (test code = 1013) 0.3 % IMMATURE GRANULOCYTES (test code = 1036) 0.6 % NUCLEATED RBCS (test code = 1065) 0.0 /100WBC'S PLATELET COUNT (test code = 1015) 360 K/UL ABSOLUTE NEUTROPHILS (test c ode = 1066) 7.19 K/UL ABSOLUTE LYMPHOCYTES (test c ode = 1067) 2.42 K/UL ABSOLUTE MONOCYTES (test cod e = 1068) 0.66 K/UL ABSOLUTE EOSINOPHILS (test c ode = 1040) 0.09 K/UL ABSOLUTE BASOPHILS (test cod e = 1069) 0.03 K/UL ABS IMMATURE GRANULOCYTES (t est code = 1020) 0.06 K/UL ABS NUCLEATED RBCS (test cod e = 75525) 0.00 K/UL Juan SantanaVAGINAL PATHOGENS DNA [id number] 00:00:00* Test Item Value Reference Range Interpretation Comme nts MARLENE SPECIES (test code = 00337) NEGATIVE G. VAGINALIS (test code = ) NEGATIVE T. VAGINALIS (test code = ) NEGATIVE Juan SantanaHEMOGLOBIN [id number] 00:00:00* Test Item Value Reference Range Interpretation Comme nts HEMOGLOBIN A1c (test code = 00108) 5.6 % Juan SantanaCOMPREHENSIVE METABOLIC [id number] 00:00:00* Test Item Value Reference Range Interpretation Comme nts GLUCOSE (test code = 2217) 104 MG/DL BUN (test code = 2208) 13 MG/DL CREATININE (test code = 2214) 1.12 MG/DL eGFR (2020 CKD-EPI) (test co de = 60822) 63 ML/MIN/1.73 CALC BUN/CREAT (test code = 2235) 12 RATIO SODIUM (test code = 2231) 137 MEQ/L POTASSIUM (test code = 2228) 4.2 MEQ/L CHLORIDE (test code = 2215) 99 MEQ/L CARBON DIOXIDE (test code = 2206) 23 MEQ/L CALCIUM (test code = 2209) 9.8 MG/DL PROTEIN, TOTAL (test code = 2229) 7.7 G/DL ALBUMIN (test code = 2201) 4.5 G/DL CALC GLOBULIN (test code = 2240) 3.2 G/DL CALC A/G RATIO (test code = 2234) 1.4 RATIO BILIRUBIN, TOTAL (test code = 2207) 0.5 MG/DL ALKALINE PHOSPHATASE (test code = 2204) 193 U/L AST (test code = 2218) 95 U/L ALT (test code = 2219) 128 U/L Juan SantanaTSH, THIRD [id number] 00:00:00* Test Item Value Reference Range Interpretation Comme nts TSH, THIRD GENERATION (test code = 2821) 3.100 UIU/ML Juan SantanaCBC W/AUTO [id number] 00:00:00* Test Item Value Reference Range Interpretation Comme nts WBC (test code = 1001) 10.5 K/UL RBC (test code = 1002) 4.60 M/UL HEMOGLOBIN (test code = 1003) 14.9 G/DL HEMATOCRIT (test code = 1004) 44.5 % MCV (test code = 1005) 96.7 fL MCH (test code = 1006) 32.4 PG MCHC (test code = 1007) 33.5 G/DL RDW (test code = 1038) 11.8 % NEUTROPHILS (test code = 1008) 68.7 % LYMPHOCYTES (test code = 1010) 23.2 % MONOCYTES (test code = 1011) 6.3 % EOSINOPHILS (test code = 1012) 0.9 % BASOPHILS (test code = 1013) 0.3 % IMMATURE GRANULOCYTES (test code = 1036) 0.6 % NUCLEATED RBCS (test code = 1065) 0.0 /100WBC'S PLATELET COUNT (test code = 1015) 360 K/UL ABSOLUTE NEUTROPHILS (test c ode = 1066) 7.19 K/UL ABSOLUTE LYMPHOCYTES (test c ode = 1067) 2.42 K/UL ABSOLUTE MONOCYTES (test cod e = 1068) 0.66 K/UL ABSOLUTE EOSINOPHILS (test c ode = 1040) 0.09 K/UL ABSOLUTE BASOPHILS (test cod e = 1069) 0.03 K/UL ABS IMMATURE GRANULOCYTES (t est code = 1020) 0.06 K/UL ABS NUCLEATED RBCS (test cod e = 48651) 0.00 K/UL Juan Richard AustinVAGINAL PATHOGENS DNA [id number] 00:00:00* Test Item Value Reference Range Interpretation Comme nts MARLENE SPECIES (test code = 46457) NEGATIVE G. VAGINALIS (test code = 48201) NEGATIVE T. VAGINALIS (test code = 02415) NEGATIVE Juan Richard AustinHEMOGLOBIN [id number] 00:00:00* Test Item Value Reference Range Interpretation Comme nts HEMOGLOBIN A1c (test code = 38521) 5.6 % Juan SantanaCOMPREHENSIVE METABOLIC [id number] 00:00:00* Test Item Value Reference Range Interpretation Comme nts GLUCOSE (test code = 2217) 104 MG/DL BUN (test code = 2208) 13 MG/DL CREATININE (test code = 2214) 1.12 MG/DL eGFR (2020 CKD-EPI) (test co de = 47972) 63 ML/MIN/1.73 CALC BUN/CREAT (test code = 2235) 12 RATIO SODIUM (test code = 2231) 137 MEQ/L POTASSIUM (test code = 2228) 4.2 MEQ/L CHLORIDE (test code = 2215) 99 MEQ/L CARBON DIOXIDE (test code = 2206) 23 MEQ/L CALCIUM (test code = 2209) 9.8 MG/DL PROTEIN, TOTAL (test code = 2229) 7.7 G/DL ALBUMIN (test code = 2201) 4.5 G/DL CALC GLOBULIN (test code = 2240) 3.2 G/DL CALC A/G RATIO (test code = 2234) 1.4 RATIO BILIRUBIN, TOTAL (test code = 2207) 0.5 MG/DL ALKALINE PHOSPHATASE (test code = 2204) 193 U/L AST (test code = 2218) 95 U/L ALT (test code = 2219) 128 U/L Juan Petty, THIRD [id number] 00:00:00* Test Item Value Reference Range Interpretation Comme nts TSH, THIRD GENERATION (test code = 2821) 3.100 UIU/ML Juan SantanaCBC W/AUTO [id number] 00:00:00* Test Item Value Reference Range Interpretation Comme nts WBC (test code = 1001) 10.5 K/UL RBC (test code = 1002) 4.60 M/UL HEMOGLOBIN (test code = 1003) 14.9 G/DL HEMATOCRIT (test code = 1004) 44.5 % MCV (test code = 1005) 96.7 fL MCH (test code = 1006) 32.4 PG MCHC (test code = 1007) 33.5 G/DL RDW (test code = 1038) 11.8 % NEUTROPHILS (test code = 1008) 68.7 % LYMPHOCYTES (test code = 1010) 23.2 % MONOCYTES (test code = 1011) 6.3 % EOSINOPHILS (test code = 1012) 0.9 % BASOPHILS (test code = 1013) 0.3 % IMMATURE GRANULOCYTES (test code = 1036) 0.6 % NUCLEATED RBCS (test code = 1065) 0.0 /100WBC'S PLATELET COUNT (test code = 1015) 360 K/UL ABSOLUTE NEUTROPHILS (test c ode = 1066) 7.19 K/UL ABSOLUTE LYMPHOCYTES (test c ode = 1067) 2.42 K/UL ABSOLUTE MONOCYTES (test cod e = 1068) 0.66 K/UL ABSOLUTE EOSINOPHILS (test c ode = 1040) 0.09 K/UL ABSOLUTE BASOPHILS (test cod e = 1069) 0.03 K/UL ABS IMMATURE GRANULOCYTES (t est code = 1020) 0.06 K/UL ABS NUCLEATED RBCS (test cod e = 71658) 0.00 K/UL Juan Richard [place]VAGINAL PATHOGENS DNA [id number] 00:00:00* Test Item Value Reference Range Interpretation Comme nts MARLENE SPECIES (test code = ) NEGATIVE G. VAGINALIS (test code = ) NEGATIVE T. VAGINALIS (test code = ) NEGATIVE Juan SantanaHEMOGLOBIN [id number] 00:00:00* Test Item Value Reference Range Interpretation Comme nts HEMOGLOBIN A1c (test code = 69519) 5.6 % Juan SantanaCOMPREHENSIVE METABOLIC [id number] 00:00:00* Test Item Value Reference Range Interpretation Comme nts GLUCOSE (test code = 7) 104 MG/DL BUN (test code = 8) 13 MG/DL CREATININE (test code = 2214) 1.12 MG/DL eGFR (2020 CKD-EPI) (test co de = 09635) 63 ML/MIN/1.73 CALC BUN/CREAT (test code = 2235) 12 RATIO SODIUM (test code = 2231) 137 MEQ/L POTASSIUM (test code = 2228) 4.2 MEQ/L CHLORIDE (test code = 2215) 99 MEQ/L CARBON DIOXIDE (test code = 2206) 23 MEQ/L CALCIUM (test code = 2209) 9.8 MG/DL PROTEIN, TOTAL (test code = 2229) 7.7 G/DL ALBUMIN (test code = 2201) 4.5 G/DL CALC GLOBULIN (test code = 2240) 3.2 G/DL CALC A/G RATIO (test code = 2234) 1.4 RATIO BILIRUBIN, TOTAL (test code = 2207) 0.5 MG/DL ALKALINE PHOSPHATASE (test code = 2204) 193 U/L AST (test code = 2218) 95 U/L ALT (test code = 2219) 128 U/L Juan Petty, THIRD [id number] 00:00:00* Test Item Value Reference Range Interpretation Comme nts TSH, THIRD GENERATION (test code = 2821) 3.100 UIU/ML Juan SantanaCBC W/AUTO [id number] 00:00:00* Test Item Value Reference Range Interpretation Comme nts WBC (test code = 1001) 10.5 K/UL RBC (test code = 1002) 4.60 M/UL HEMOGLOBIN (test code = 1003) 14.9 G/DL HEMATOCRIT (test code = 1004) 44.5 % MCV (test code = 1005) 96.7 fL MCH (test code = 1006) 32.4 PG MCHC (test code = 1007) 33.5 G/DL RDW (test code = 1038) 11.8 % NEUTROPHILS (test code = 1008) 68.7 % LYMPHOCYTES (test code = 1010) 23.2 % MONOCYTES (test code = 1011) 6.3 % EOSINOPHILS (test code = 1012) 0.9 % BASOPHILS (test code = 1013) 0.3 % IMMATURE GRANULOCYTES (test code = 1036) 0.6 % NUCLEATED RBCS (test code = 1065) 0.0 /100WBC'S PLATELET COUNT (test code = 1015) 360 K/UL ABSOLUTE NEUTROPHILS (test c ode = 1066) 7.19 K/UL ABSOLUTE LYMPHOCYTES (test c ode = 1067) 2.42 K/UL ABSOLUTE MONOCYTES (test cod e = 1068) 0.66 K/UL ABSOLUTE EOSINOPHILS (test c ode = 1040) 0.09 K/UL ABSOLUTE BASOPHILS (test cod e = 1069) 0.03 K/UL ABS IMMATURE GRANULOCYTES (t est code = 1020) 0.06 K/UL ABS NUCLEATED RBCS (test cod e = 20103) 0.00 K/UL Juan SantanaVAGINAL PATHOGENS DNA [id number] 00:00:00* Test Item Value Reference Range Interpretation Comme nts MARLENE SPECIES (test code = ) NEGATIVE G. VAGINALIS (test code = ) NEGATIVE T. VAGINALIS (test code = ) NEGATIVE Juan SantanaHEMOGLOBIN [id number] 00:00:00* Test Item Value Reference Range Interpretation Comme [facility] HEMOGLOBIN A1c (test code = 03234) 5.6 % Juan SantanaCOMPREHENSIVE METABOLIC [id number] 00:00:00* Test Item Value Reference Range Interpretation Comme nts GLUCOSE (test code = 2217) 104 MG/DL BUN (test code = 2208) 13 MG/DL CREATININE (test code = 2214) 1.12 MG/DL eGFR (2020 CKD-EPI) (test co de = 40080) 63 ML/MIN/1.73 CALC BUN/CREAT (test code = 2235) 12 RATIO SODIUM (test code = 2231) 137 MEQ/L POTASSIUM (test code = 2228) 4.2 MEQ/L CHLORIDE (test code = 2215) 99 MEQ/L CARBON DIOXIDE (test code = 2206) 23 MEQ/L CALCIUM (test code = 2209) 9.8 MG/DL PROTEIN, TOTAL (test code = 2229) 7.7 G/DL ALBUMIN (test code = 2201) 4.5 G/DL CALC GLOBULIN (test code = 2240) 3.2 G/DL CALC A/G RATIO (test code = 2234) 1.4 RATIO BILIRUBIN, TOTAL (test code = 2207) 0.5 MG/DL ALKALINE PHOSPHATASE (test code = 2204) 193 U/L AST (test code = 2218) 95 U/L ALT (test code = 2219) 128 U/L Juan SantanaTSH, THIRD [id number] 00:00:00* Test Item Value Reference Range Interpretation Comme [facility] TSH, THIRD GENERATION (test code = 2821) 3.100 UIU/ML Juan SantanaCBC W/AUTO [id number] 00:00:00* Test Item Value Reference Range Interpretation Comme nts WBC (test code = 1001) 10.5 K/UL RBC (test code = 1002) 4.60 M/UL HEMOGLOBIN (test code = 1003) 14.9 G/DL HEMATOCRIT (test code = 1004) 44.5 % MCV (test code = 1005) 96.7 fL MCH (test code = 1006) 32.4 PG MCHC (test code = 1007) 33.5 G/DL RDW (test code = 1038) 11.8 % NEUTROPHILS (test code = 1008) 68.7 % LYMPHOCYTES (test code = 1010) 23.2 % MONOCYTES (test code = 1011) 6.3 % EOSINOPHILS (test code = 1012) 0.9 % BASOPHILS (test code = 1013) 0.3 % IMMATURE GRANULOCYTES (test code = 1036) 0.6 % NUCLEATED RBCS (test code = 1065) 0.0 /100WBC'S PLATELET COUNT (test code = 1015) 360 K/UL ABSOLUTE NEUTROPHILS (test c ode = 1066) 7.19 K/UL ABSOLUTE LYMPHOCYTES (test c ode = 1067) 2.42 K/UL ABSOLUTE MONOCYTES (test cod e = 1068) 0.66 K/UL ABSOLUTE EOSINOPHILS (test c ode = 1040) 0.09 K/UL ABSOLUTE BASOPHILS (test cod e = 1069) 0.03 K/UL ABS IMMATURE GRANULOCYTES (t est code = 1020) 0.06 K/UL ABS NUCLEATED RBCS (test cod e = 98955) 0.00 K/UL Juan SantanaVAGINAL PATHOGENS DNA [id number] 00:00:00* Test Item Value Reference Range Interpretation Comme nts MALRENE SPECIES (test code = 67429) NEGATIVE G. VAGINALIS (test code = ) NEGATIVE T. VAGINALIS (test code = ) NEGATIVE Juan SantanaHEMOGLOBIN [id number] 00:00:00* Test Item Value Reference Range Interpretation Comme nts HEMOGLOBIN A1c (test code = 06844) 5.6 % Juan SantanaCOMPREHENSIVE METABOLIC [id number] 00:00:00* Test Item Value Reference Range Interpretation Comme nts GLUCOSE (test code = 2217) 104 MG/DL BUN (test code = 2208) 13 MG/DL CREATININE (test code = 2214) 1.12 MG/DL eGFR (2020 CKD-EPI) (test co de = 11366) 63 ML/MIN/1.73 CALC BUN/CREAT (test code = 2235) 12 RATIO SODIUM (test code = 2231) 137 MEQ/L POTASSIUM (test code = 2228) 4.2 MEQ/L CHLORIDE (test code = 2215) 99 MEQ/L CARBON DIOXIDE (test code = 2206) 23 MEQ/L CALCIUM (test code = 2209) 9.8 MG/DL PROTEIN, TOTAL (test code = 2229) 7.7 G/DL ALBUMIN (test code = 2201) 4.5 G/DL CALC GLOBULIN (test code = 2240) 3.2 G/DL CALC A/G RATIO (test code = 2234) 1.4 RATIO BILIRUBIN, TOTAL (test code = 2207) 0.5 MG/DL ALKALINE PHOSPHATASE (test code = 2204) 193 U/L AST (test code = 2218) 95 U/L ALT (test code = 2219) 128 U/L Juan BerriosH, THIRD [id number] 00:00:00* Test Item Value Reference Range Interpretation Comme nts TSH, THIRD GENERATION (test code = 2821) 3.100 UIU/ML Juan SantanaCBC W/AUTO [id number] 00:00:00* Test Item Value Reference Range Interpretation Comme nts WBC (test code = 1001) 10.5 K/UL RBC (test code = 1002) 4.60 M/UL HEMOGLOBIN (test code = 1003) 14.9 G/DL HEMATOCRIT (test code = 1004) 44.5 % MCV (test code = 1005) 96.7 fL MCH (test code = 1006) 32.4 PG MCHC (test code = 1007) 33.5 G/DL RDW (test code = 1038) 11.8 % NEUTROPHILS (test code = 1008) 68.7 % LYMPHOCYTES (test code = 1010) 23.2 % MONOCYTES (test code = 1011) 6.3 % EOSINOPHILS (test code = 1012) 0.9 % BASOPHILS (test code = 1013) 0.3 % IMMATURE GRANULOCYTES (test code = 1036) 0.6 % NUCLEATED RBCS (test code = 1065) 0.0 /100WBC'S PLATELET COUNT (test code = 1015) 360 K/UL ABSOLUTE NEUTROPHILS (test c ode = 1066) 7.19 K/UL ABSOLUTE LYMPHOCYTES (test c ode = 1067) 2.42 K/UL ABSOLUTE MONOCYTES (test cod e = 1068) 0.66 K/UL ABSOLUTE EOSINOPHILS (test c ode = 1040) 0.09 K/UL ABSOLUTE BASOPHILS (test cod e = 1069) 0.03 K/UL ABS IMMATURE GRANULOCYTES (t est code = 1020) 0.06 K/UL ABS NUCLEATED RBCS (test cod e = 14131) 0.00 K/UL Juan SantanaVAGINAL PATHOGENS DNA [id number] 00:00:00* Test Item Value Reference Range Interpretation Comme nts MARLENE SPECIES (test code = 14872) NEGATIVE G. VAGINALIS (test code = ) NEGATIVE T. VAGINALIS (test code = ) NEGATIVE Juan SantanaHEMOGLOBIN [id number] 00:00:00* Test Item Value Reference Range Interpretation Comme nts HEMOGLOBIN A1c (test code = 02687) 5.6 % Juan SantanaCOMPREHENSIVE METABOLIC [id number] 00:00:00* Test Item Value Reference Range Interpretation Comme nts GLUCOSE (test code = 2217) 104 MG/DL BUN (test code = 2208) 13 MG/DL CREATININE (test code = 2214) 1.12 MG/DL eGFR (2020 CKD-EPI) (test co de = 56071) 63 ML/MIN/1.73 CALC BUN/CREAT (test code = 2235) 12 RATIO SODIUM (test code = 2231) 137 MEQ/L POTASSIUM (test code = 2228) 4.2 MEQ/L CHLORIDE (test code = 2215) 99 MEQ/L CARBON DIOXIDE (test code = 2206) 23 MEQ/L CALCIUM (test code = 2209) 9.8 MG/DL PROTEIN, TOTAL (test code = 2229) 7.7 G/DL ALBUMIN (test code = 2201) 4.5 G/DL CALC GLOBULIN (test code = 2240) 3.2 G/DL CALC A/G RATIO (test code = 2234) 1.4 RATIO BILIRUBIN, TOTAL (test code = 2207) 0.5 MG/DL ALKALINE PHOSPHATASE (test code = 2204) 193 U/L AST (test code = 2218) 95 U/L ALT (test code = 2219) 128 U/L Juan SantanaTSH, THIRD [id number] 00:00:00* Test Item Value Reference Range Interpretation Comme nts TSH, THIRD GENERATION (test code = 2821) 3.100 UIU/ML Juan SantanaCBC W/AUTO [id number] 00:00:00* Test Item Value Reference Range Interpretation Comme nts WBC (test code = 1001) 10.5 K/UL RBC (test code = 1002) 4.60 M/UL HEMOGLOBIN (test code = 1003) 14.9 G/DL HEMATOCRIT (test code = 1004) 44.5 % MCV (test code = 1005) 96.7 fL MCH (test code = 1006) 32.4 PG MCHC (test code = 1007) 33.5 G/DL RDW (test code = 1038) 11.8 % NEUTROPHILS (test code = 1008) 68.7 % LYMPHOCYTES (test code = 1010) 23.2 % MONOCYTES (test code = 1011) 6.3 % EOSINOPHILS (test code = 1012) 0.9 % BASOPHILS (test code = 1013) 0.3 % IMMATURE GRANULOCYTES (test code = 1036) 0.6 % NUCLEATED RBCS (test code = 1065) 0.0 /100WBC'S PLATELET COUNT (test code = 1015) 360 K/UL ABSOLUTE NEUTROPHILS (test c ode = 1066) 7.19 K/UL ABSOLUTE LYMPHOCYTES (test c ode = 1067) 2.42 K/UL ABSOLUTE MONOCYTES (test cod e = 1068) 0.66 K/UL ABSOLUTE EOSINOPHILS (test c ode = 1040) 0.09 K/UL ABSOLUTE BASOPHILS (test cod e = 1069) 0.03 K/UL ABS IMMATURE GRANULOCYTES (t est code = 1020) 0.06 K/UL ABS NUCLEATED RBCS (test cod e = 67638) 0.00 K/UL Juan SantanaVAGINAL PATHOGENS DNA [id number] 00:00:00* Test Item Value Reference Range Interpretation Comme nts MARLENE SPECIES (test code = ) NEGATIVE G. VAGINALIS (test code = ) NEGATIVE T. VAGINALIS (test code = ) NEGATIVE Juan SantanaCULTURE, [id number] 09:26:01SPECIMEN NUMBER: [id number] CULTURE, URINE SPECIMEN NUMBER: [id number] SOURCE: URINE REPORT STATUS: FINAL FINAL REPORT: 05/03/2024 10,000 - 100,000 CFU/ML UROGENITAL CARSON PRESENT NO COMMON PATHOGENS UNLESS OTHERWISE INDICATED, ALL TESTING PERFORMED AT [facility] [address] [address] SELLING SPECIALIST: DERRICK FISHER M.D. CLIA NUMBER [id number] [facility]. [id number] CULTURE, [id number] 00:00:00* Test Item Value Reference Range Interpretation Comme nts CULTURE, URINE (test code = 21842) SPECIMEN NUMBER: [id number] Juan DobbsLTJESUS [id number] 00:00:00* Test Item Value Reference Range Interpretation Comme nts CULTURE, URINE (test code = 04243) SPECIMEN NUMBER: [id number] Juan Branch [id number] 00:00:00* Test Item Value Reference Range Interpretation Comme nts CULTURE, URINE (test code = 69916) SPECIMEN NUMBER: [id number] Juan DobbsLTJESUS [id number] 00:00:00* Test Item Value Reference Range Interpretation Comme nts CULTURE, URINE (test code = 53626) SPECIMEN NUMBER: [id number] Juan DobbsLTJESUS, [id number] 00:00:00* Test Item Value Reference Range Interpretation Comme nts CULTURE, URINE (test code = 75762) SPECIMEN NUMBER: [id number] Juan Branch, [id number] 00:00:00* Test Item Value Reference Range Interpretation Comme nts CULTURE, URINE (test code = 93946) SPECIMEN NUMBER: [id number] Juan DobbsLTJESUS, [id number] 00:00:00* Test Item Value Reference Range Interpretation Comme nts CULTURE, URINE (test code = 18102) SPECIMEN NUMBER: [id number] Juan Branch, [id number] 00:00:00* Test Item Value Reference Range Interpretation Comme nts CULTURE, URINE (test code = 21968) SPECIMEN NUMBER: [id number] Juan DobbsLTJESUS, [id number] 00:00:00* Test Item Value Reference Range Interpretation Comme nts CULTURE, URINE (test code = 47713) SPECIMEN NUMBER: [id number] Juan DobbsLTJESUS, [id number] 00:00:00* Test Item Value Reference Range Interpretation Comme nts CULTURE, URINE (test code = 08269) SPECIMEN NUMBER: [id number] Juan DobbsLTJESUS, [id number] 00:00:00* Test Item Value Reference Range Interpretation Comme nts CULTURE, URINE (test code = 22096) SPECIMEN NUMBER: [id number] Juan Richard AustinTransthoracic echo (TTE)2024-04-22 22:24:23* Test Item Value Reference Range Interpretation Comme nts Height (test code = 7945509397) 65 in Weight (test code = 0772570007) 180 lbs Systolic BP (test code = 9037255719) 146 mmHg Diastolic BP (test code = 0045397347) 80 mmHg Heart Rate (test code = 7433431022) 97 bpm EF(Teich) (test code = 3460210951) 54.40 % LVIDD (test code = 2506052114) 3.80 cm LVIDS (test code = 2669638875) 2.70 cm Left Ventricular End Systolic Volume by Teichholz Method (test code = 3014349) 28.2 mL Left Ventricular End Diastolic Volume by Teichholz Method (test code = 6866629) 62.0 mL IVS (test code = 9155664280) 1.00 cm LVPWD (test code = 5831548150) 0.90 cm LVOT diameter (test code = 3147799560) 1.72 cm LVOT area (test code = 6406436896) 2.31 cm2 FS (test code = 7361316329) 28 % LA size (test code = 0916107549) 3.4 cm RVOT Proximal Diameter (test code = 2335929597) 2.36 cm ACS (test code = 2945758350) 1.54 cm Ao root diam (test code = 8059525289) 2.33 cm Aortic root (test code = 2950893756) 2.33 cm Ao root annulus (test code = 0777383866) 2.33 cm PW (test code = 7526599570) 0.90 cm 0.6-1.1 EF - 2D (test code = 80538231) 54.40 % Interventricular Septum Diastolic Thickness by 2D (test code = 5606660) 1.00 cm BSA (test code = 0900822069) 1.89 m2 E wave decelartion time (test code = 8594929377) 0.18 s MV Peak E Rachel (test code = 2923285471) 91.7 cm/s MV Peak A Rachel (test code = 0123609575) 109.5 cm/s E/A ratio (test code = 7009535083) 0.84 ratio MV Prop V (test code = 4560986612) 41.80 cm/s LVOT stroke volume (test code = 7934201448) 58.10 cm3 LVOT peak rachel (test code = 4031860652) 126.8 cm/s LVOT mn grad (test code = 4280869575) 3.1 mmHg AV LVOT peak gradient (test code = 4879449878) 6.4 mmHg LVOT peak VTI (test code = 0470237451) 25.1 cm LV V1 mean (test code = 6184027540) 82.90 cm/s Aortic valve mean velocity (test code = 1453825790) 110.2 cm/s Ao peak rachel (test code = 2204646889) 175.8 cm/s Ao VTI (test code = 4921643230) 33.0 cm AV area by cont VTI (test code = 3780563690) 1.8 cm2 AV area peak rachel (test code = 0074276217) 1.7 cm2 Ao max PG (test code = 8882752693) 12.40 mm[Hg] AV peak gradient (test code = 4748107148) 12.4 mmHg AV valve area (test code = 1480937817) 1.76 cm2 AV mean gradient (test code = 0651090340) 5.8 mmHg AV regurgitation pressure 1/2 time (test code = 6379295183) 481.6 ms AI dec slope (test code = 9639749646) 246.40 cm/s2 AI max rachel (test code = 1058797151) 405.30 cm/s AI max PG (test code = 7657067923) 65.70 mm[Hg] MR max PG (test code = 9726457080) 51.90 mm[Hg] MR max rachel (test code = 7839523027) 360.20 cm/s Mr max rachel (test code = 7530828308) 360.2 m/s TR Peak Rachel (test code = 9549521691) 191.2 cm/s Triscuspid Valve Regurgitation Peak Gradient (test code = 4541297454) 14.6 mmHg Radiology Study observation (narrative) (test code = 62069-3) BROOK (test code = BROOK) ?Left?Ventricle: Left ventricle size is normal. Normal wall thickness. Normal wall motion. Normal systolic function with a visually estimated EF of 50 - 55%. Indeterminate diastolic function. ?Tricuspid?Valve: Insufficient tricuspid regurgitation jet to estimate RVSP . ?Aortic?Valve: Mild transvalvular regurgitation. ?IVC/SVC: IVC was not well visualized. Left VentricleLeft ventricle size is normal. Normal wall thickness. Normal wall motion. Normal systolic function with a visually estimated EF of 50 - 55%. Indeterminate diastolic function.Right VentricleRight ventricle size is normal. Normal systolic function.Left AtriumLeft atrium size is normal.Right AtriumRight atrium size is normal.IVC/SVCIVC was not well visualized.Mitral ValveMitral valve structure is normal. Trace transvalvular regurgitation.Tricusp id ValveTricuspid valve structure is normal. Trace transvalvular regurgitation. Insufficient tricuspid regurgitation jet to estimate RVSP .Aortic ValveTricuspid. Mild transvalvular regurgitation.Pulmoni c ValveValve structure is normal. Trace transvalvular regurgitation.Ascendi ng AortaNormal sized aorta.PericardiumThe pericardium is normal. No pericardial effusion.Study DetailsStudy quality was adequate. A complete echocardiogram was performed using 2D, color flow Doppler and spectral Doppler. The apical, parasternal, subcostal and suprasternal views were obtained. [facility], URINE, [id number] 00:00:00* Test Item Value Reference Range Interpretation Comme nts CULTURE, URINE, ROUTINE (cristhian t code = 630-4) SEE NOTE Juan F AustinBV/VAGINITIS PANEL DNA [id number] 00:00:00* Test Item Value Reference Range Interpretation Comme nts TRICHOMONAS: (test code = 6568-0) NOT DETECTED GARDNERELLA: (test code = 6410-5) NOT DETECTED MARLENE: (test code = 57372-0) NOT DETECTED Juan Richard AustinCULTURE, URINE, [id number] 00:00:00* Test Item Value Reference Range Interpretation Comme nts CULTURE, URINE, ROUTINE (cristhian t code = 630-4) SEE NOTE Juan Richard AustinBV/VAGINITIS PANEL DNA [id number] 00:00:00* Test Item Value Reference Range Interpretation Comme nts TRICHOMONAS: (test code = 6568-0) NOT DETECTED GARDNERELLA: (test code = 6410-5) NOT DETECTED MARLENE: (test code = 03012-5) NOT DETECTED Juan Richard AustinCULTURE, URINE, [id number] 00:00:00* Test Item Value Reference Range Interpretation Comme nts CULTURE, URINE, ROUTINE (cristhian t code = 630-4) SEE NOTE Juan Richard AustinBV/VAGINITIS PANEL DNA [id number] 00:00:00* Test Item Value Reference Range Interpretation Comme nts TRICHOMONAS: (test code = 6568-0) NOT DETECTED GARDNERELLA: (test code = 6410-5) NOT DETECTED MARLENE: (test code = 94201-1) NOT DETECTED Juan Richard AustinCULTURE, URINE, [id number] 00:00:00* Test Item Value Reference Range Interpretation Comme nts CULTURE, URINE, ROUTINE (cristhian t code = 630-4) SEE NOTE Juan Richard AustinBV/VAGINITIS PANEL DNA [id number] 00:00:00* Test Item Value Reference Range Interpretation Comme nts TRICHOMONAS: (test code = 6568-0) NOT DETECTED GARDNERELLA: (test code = 6410-5) NOT DETECTED MARLENE: (test code = 54152-6) NOT DETECTED Juan Richard AustinCULTURE, URINE, [id number] 00:00:00* Test Item Value Reference Range Interpretation Comme nts CULTURE, URINE, ROUTINE (cristhian t code = 630-4) SEE NOTE Juan Richard AustinBV/VAGINITIS PANEL DNA [id number] 00:00:00* Test Item Value Reference Range Interpretation Comme nts TRICHOMONAS: (test code = 6568-0) NOT DETECTED GARDNERELLA: (test code = 6410-5) NOT DETECTED MARLENE: (test code = 21447-0) NOT DETECTED Juan Richard AustinCULTURE, URINE, [id number] 00:00:00* Test Item Value Reference Range Interpretation Comme nts CULTURE, URINE, ROUTINE (cristhian t code = 630-4) SEE NOTE Juan Richard AustinBV/VAGINITIS PANEL DNA [id number] 00:00:00* Test Item Value Reference Range Interpretation Comme nts TRICHOMONAS: (test code = 6568-0) NOT DETECTED GARDNERELLA: (test code = 6410-5) NOT DETECTED MARLENE: (test code = 76181-8) NOT DETECTED Juan Richard AustinCULTURE, URINE, [id number] 00:00:00* Test Item Value Reference Range Interpretation Comme nts CULTURE, URINE, ROUTINE (cristhian t code = 630-4) SEE NOTE Juan Richard AustinBV/VAGINITIS PANEL DNA [id number] 00:00:00* Test Item Value Reference Range Interpretation Comme nts TRICHOMONAS: (test code = 6568-0) NOT DETECTED GARDNERELLA: (test code = 6410-5) NOT DETECTED MARLENE: (test code = 68893-9) NOT DETECTED Juan Richard AustinCULTURE, URINE, [id number] 00:00:00* Test Item Value Reference Range Interpretation Comme nts CULTURE, URINE, ROUTINE (cristhian t code = 630-4) SEE NOTE Juan Richard AustinBV/VAGINITIS PANEL DNA [id number] 00:00:00* Test Item Value Reference Range Interpretation Comme nts TRICHOMONAS: (test code = 6568-0) NOT DETECTED GARDNERELLA: (test code = 6410-5) NOT DETECTED MARLENE: (test code = 00316-4) NOT DETECTED Juan Richard AustinCULTURE, URINE, [id number] 00:00:00* Test Item Value Reference Range Interpretation Comme nts CULTURE, URINE, ROUTINE (cristhian t code = 630-4) SEE NOTE Juan Richard AustinBV/VAGINITIS PANEL DNA [id number] 00:00:00* Test Item Value Reference Range Interpretation Comme nts TRICHOMONAS: (test code = 6568-0) NOT DETECTED GARDNERELLA: (test code = 6410-5) NOT DETECTED MARLENE: (test code = 55480-6) NOT DETECTED Juan Richard AustinCULTURE, URINE, [id number] 00:00:00* Test Item Value Reference Range Interpretation Comme nts CULTURE, URINE, ROUTINE (cristhian t code = 630-4) SEE NOTE Juna Richard AustinBV/VAGINITIS PANEL DNA [id number] 00:00:00* Test Item Value Reference Range Interpretation Comme nts TRICHOMONAS: (test code = 6568-0) NOT DETECTED GARDNERELLA: (test code = 6410-5) NOT DETECTED MARLENE: (test code = 65015-2) NOT DETECTED Juan SantanaCULTURE, URINE, [id number] 00:00:00* Test Item Value Reference Range Interpretation Comme nts CULTURE, URINE, ROUTINE (cristhian t code = 630-4) SEE NOTE Juan SantanaBV/VAGINITIS PANEL DNA [id number] 00:00:00* Test Item Value Reference Range Interpretation Comme nts TRICHOMONAS: (test code = 6568-0) NOT DETECTED GARDNERELLA: (test code = 6410-5) NOT DETECTED MARLENE: (test code = 78138-5) NOT DETECTED Juan SantanaComp. Metabolic Panel (70698)2024-04-11 22:04:22* Test Item Value Reference Range Interpretation Comme nts NA (test code = 2563257563) 135 mmol/L 135-145 K (test code = 4714722446) 3.1 mmol/L 3.5-5.0 L CL (test code = 9544359452) 113 mmol/L 98-108 H CO2 TOTAL (test code = 1848036802) 15 mmol/L 23-31 L AGAP (test code = 8625655692) 7 2-16 BUN (test code = 5717384032) 15 mg/dL 7-23 GLUCOSE (test code = 0126278486) 83 mg/dL 70-110 CREATININE (test code = 2160-0) 0.84 mg/dL 0.50-1.04 TOTAL BILI (test code = 6999319126) 0.3 mg/dL 0.1-1.1 CALCIUM (test code = 4048896146) 7.2 mg/dL 8.6-10.6 L T PROTEIN (test code = 2315468239) 5.8 g/dL 6.3-8.2 L ALBUMIN (test code = 0166131597) 2.9 g/dL 3.5-5.0 L ALK PHOS (test code = 1251162064) 128 U/L 34-122 H ALTv (test code = 1742-6) 14 U/L 5-35 AST(SGOT) (test code = 4208136846) 18 U/L 13-40 eGFR (test code = 82799-1) 88.6 mL/min/1.73m2 CKD-EPI eGFR (2020). Assuming creatinine has been stable day-to-day for at least three months, the eGFR indicates Category G2 (60 - 89 mL/min/1.73 m2) Lab Interpretation (test code = 16801-7) Abnormal [facility] with [id number] 20:47:03* Test Item Value Reference Range Interpretation [...] 33.8 g/dL 31.6-35.1 RDW-SD (test code = 04994-9) 46.8 fL 39.0-49.9 RDW-CV (test code = 788-0) 12.6 % 12.0-15.5 PLT (test code = 777-3) 218 166-358 MPV (test code = 30098-2) 11.6 fL 9.5-12.9 NRBC/100 WBC (test code = 0153757432) 0.0 0.0-10.0 NRBC x10^3 (test code = 6748543899) See_Comment [Automated messa ge] The system which generated this result transmitted reference range: 10*3/?L. The reference range was not used to interpret this result as normal/abnormal. GRAN MAT (NEUT) % (test code = 770-8) 71.7 % IMM GRAN % (test code = 8743148663) 1.30 % LYMPH % (test code = 736-9) 18.0 % MONO % (test code = 5905-5) 8.3 % EOS % (test code = 713-8) 0.5 % BASO % (test code = 706-2) 0.2 % GRAN MAT x10^3(ANC) (test code = 7120120002) 9.26 10*3/uL 1.88-7.09 H IMM GRAN x10^3 (test code = 1066845549) 0.17 10*3/uL 0.00-0.06 H LYMPH x10^3 (test code = 731-0) 2.32 10*3/uL 1.32-3.29 MONO x10^3 (test code = 742-7) 1.07 10*3/uL 0.33-0.92 H EOS x10^3 (test code = 711-2) 0.06 10*3/uL 0.03-0.39 BASO x10^3 (test code = 704-7) 0.03 10*3/uL 0.01-0.07 Lab Interpretation (test code = 78825-8) Abnormal [facility]2024-[facility]-11 20:10:48* Test Item Value Reference Range Interpretation Comme nts POCT GLU (test code = 3891775702) 110 mg/dL 70-110 Lab Interpretation (test cod e = 99139-2) Normal [facility] SystemC[facility], URINE, [id number] 00:00:00* Test Item Value Reference Range Interpretation Comme nts CULTURE, URINE, ROUTINE (cristhian t code = 630-4) SEE NOTE Juan Richard AustinCULTURE, URINE, [id number] 00:00:00* Test Item Value Reference Range Interpretation Comme nts CULTURE, URINE, ROUTINE (cristhian t code = 630-4) SEE NOTE Juan F AustinCULTURE, URINE, [id number] 00:00:00* Test Item Value Reference Range Interpretation Comme nts CULTURE, URINE, ROUTINE (cristhian t code = 630-4) SEE NOTE Juan F AustinCULTURE, URINE, [id number] 00:00:00* Test Item Value Reference Range Interpretation Comme nts CULTURE, URINE, ROUTINE (cristhian t code = 630-4) SEE NOTE Juan F AustinCULTURE, URINE, [id number] 00:00:00* Test Item Value Reference Range Interpretation Comme nts CULTURE, URINE, ROUTINE (cristhian t code = 630-4) SEE NOTE Juan F AustinCULTURE, URINE, [id number] 00:00:00* Test Item Value Reference Range Interpretation Comme nts CULTURE, URINE, ROUTINE (cristhian t code = 630-4) SEE NOTE Juan Richard AustinCULTURE, URINE, [id number] 00:00:00* Test Item Value Reference Range Interpretation Comme nts CULTURE, URINE, ROUTINE (cristhian t code = 630-4) SEE NOTE Juan Richard AustinCULTURE, URINE, [id number] 00:00:00* Test Item Value Reference Range Interpretation Comme nts CULTURE, URINE, ROUTINE (cristhian t code = 630-4) SEE NOTE Juan Richard AustinCULTURE, URINE, [id number] 00:00:00* Test Item Value Reference Range Interpretation Comme nts CULTURE, URINE, ROUTINE (cristhian t code = 630-4) SEE NOTE Juan Richard AustinCULTURE, URINE, [id number] 00:00:00* Test Item Value Reference Range Interpretation Comme nts CULTURE, URINE, ROUTINE (cristhian t code = 630-4) SEE NOTE Juan Richard AustinCULTURE, URINE, [id number] 00:00:00* Test Item Value Reference Range Interpretation Comme nts CULTURE, URINE, ROUTINE (cristhian t code = 630-4) SEE NOTE Juan Richard AustinCULTURE, URINE, [id number] 00:00:00* Test Item Value Reference Range Interpretation Comme nts CULTURE, URINE, ROUTINE (cristhian t code = 630-4) SEE NOTE Juan Richard AustinCULTURE, URINE, [id number] 00:00:00* Test Item Value Reference Range Interpretation Comme nts CULTURE, URINE, ROUTINE (cristhian t code = 630-4) SEE NOTE Juan Richard AustinCULTURE, URINE, [id number] 00:00:00* Test Item Value Reference Range Interpretation Comme nts CULTURE, URINE, ROUTINE (cristhian t code = 630-4) SEE NOTE Juan Richard AustinCULTURE, URINE, [id number] 00:00:00* Test Item Value Reference Range Interpretation Comme nts CULTURE, URINE, ROUTINE (cristhian t code = 630-4) SEE NOTE Juan Richard AustinCULTURE, URINE, [id number] 00:00:00* Test Item Value Reference Range Interpretation Comme nts CULTURE, URINE, ROUTINE (cristhian t code = 630-4) SEE NOTE Juan Richard AustinCULTURE, URINE, [id number] 00:00:00* Test Item Value Reference Range Interpretation Comme nts CULTURE, URINE, ROUTINE (cristhian t code = 630-4) SEE NOTE Juan Richard AustinCULTURE, URINE, [id number] 00:00:00* Test Item Value Reference Range Interpretation Comme nts CULTURE, URINE, ROUTINE (cristhian t code = 630-4) SEE NOTE Juan Richard AustinCULTURE, URINE, [id number] 00:00:00* Test Item Value Reference Range Interpretation Comme nts CULTURE, URINE, ROUTINE (cristhian t code = 630-4) SEE NOTE Juan Richard AustinCULTURE, URINE, [id number] 00:00:00* Test Item Value Reference Range Interpretation Comme nts CULTURE, URINE, ROUTINE (cristhian t code = 630-4) SEE NOTE Juan Richard AustinCULTURE, URINE, [id number] 00:00:00* Test Item Value Reference Range Interpretation Comme nts CULTURE, URINE, ROUTINE (cristhian t code = 630-4) SEE NOTE Juan Richard AustinCULTURE, URINE, [id number] 00:00:00* Test Item Value Reference Range Interpretation Comme nts CULTURE, URINE, ROUTINE (cristhian t code = 630-4) SEE NOTE Juan F MaxGLUCOSE TOLERANCE GESTATIONAL, 100 GM LOAD, DIAG., (FASTING,1HR 2024-02-18 00:00:00* Test Item Value Reference Range Interpretation Comme nts GLUCOSE, FASTING (test code = ) 96 MG/DL GLUCOSE, 1 HR (test code = ) 243 MG/DL GLUCOSE, 2 HR (test code = ) 254 MG/DL GLUCOSE, 3 HR (test code = ) 199 MG/DL Juan Hilary AustinGLUCOSE TOLERANCE GESTATIONAL, 100 GM LOAD, DIAG., (FASTING,1HR 2024-02-18 00:00:00* Test Item Value Reference Range Interpretation Comme nts GLUCOSE, FASTING (test code = ) 96 MG/DL GLUCOSE, 1 HR (test code = ) 243 MG/DL GLUCOSE, 2 HR (test code = ) 254 MG/DL GLUCOSE, 3 HR (test code = ) 199 MG/DL Juan F AustinGLUCOSE TOLERANCE GESTATIONAL, 100 GM LOAD, DIAG., (FASTING,1HR 2024-02-18 00:00:00* Test Item Value Reference Range Interpretation Comme nts GLUCOSE, FASTING (test code = ) 96 MG/DL GLUCOSE, 1 HR (test code = ) 243 MG/DL GLUCOSE, 2 HR (test code = ) 254 MG/DL GLUCOSE, 3 HR (test code = ) 199 MG/DL Juan F AustinGLUCOSE TOLERANCE GESTATIONAL, 100 GM LOAD, DIAG., (FASTING,1HR 2024-02-18 00:00:00* Test Item Value Reference Range Interpretation Comme nts GLUCOSE, FASTING (test code = ) 96 MG/DL GLUCOSE, 1 HR (test code = ) 243 MG/DL GLUCOSE, 2 HR (test code = ) 254 MG/DL GLUCOSE, 3 HR (test code = ) 199 MG/DL Juan F AustinGLUCOSE TOLERANCE GESTATIONAL, 100 GM LOAD, DIAG., (FASTING,R 2024-02-18 00:00:00* Test Item Value Reference Range Interpretation Comme nts GLUCOSE, FASTING (test code = ) 96 MG/DL GLUCOSE, 1 HR (test code = ) 243 MG/DL GLUCOSE, 2 HR (test code = ) 254 MG/DL GLUCOSE, 3 HR (test code = ) 199 MG/DL Juan F AustinGLUCOSE TOLERANCE GESTATIONAL, 100 GM LOAD, DIAG., (FASTING,R 2024-02-18 00:00:00* Test Item Value Reference Range Interpretation Comme nts GLUCOSE, FASTING (test code = ) 96 MG/DL GLUCOSE, 1 HR (test code = ) 243 MG/DL GLUCOSE, 2 HR (test code = ) 254 MG/DL GLUCOSE, 3 HR (test code = ) 199 MG/DL Juan F AustinGLUCOSE TOLERANCE GESTATIONAL, 100 GM LOAD, DIAG., (FASTING,1HR 2024-02-18 00:00:00* Test Item Value Reference Range Interpretation Comme nts GLUCOSE, FASTING (test code = ) 96 MG/DL GLUCOSE, 1 HR (test code = ) 243 MG/DL GLUCOSE, 2 HR (test code = ) 254 MG/DL GLUCOSE, 3 HR (test code = ) 199 MG/DL Juan F AustinGLUCOSE TOLERANCE GESTATIONAL, 100 GM LOAD, DIAG., (FASTING,1HR 2024-02-18 00:00:00* Test Item Value Reference Range Interpretation Comme nts GLUCOSE, FASTING (test code = ) 96 MG/DL GLUCOSE, 1 HR (test code = ) 243 MG/DL GLUCOSE, 2 HR (test code = ) 254 MG/DL GLUCOSE, 3 HR (test code = ) 199 MG/DL Juan F AustinGLUCOSE TOLERANCE GESTATIONAL, 100 GM LOAD, DIAG., (FASTING,1HR 2024-02-18 00:00:00* Test Item Value Reference Range Interpretation Comme nts GLUCOSE, FASTING (test code = ) 96 MG/DL GLUCOSE, 1 HR (test code = ) 243 MG/DL GLUCOSE, 2 HR (test code = ) 254 MG/DL GLUCOSE, 3 HR (test code = ) 199 MG/DL Juan F AustinGLUCOSE TOLERANCE GESTATIONAL, 100 GM LOAD, DIAG., (FASTING,1HR 2024-02-18 00:00:00* Test Item Value Reference Range Interpretation Comme nts GLUCOSE, FASTING (test code = ) 96 MG/DL GLUCOSE, 1 HR (test code = ) 243 MG/DL GLUCOSE, 2 HR (test code = ) 254 MG/DL GLUCOSE, 3 HR (test code = ) 199 MG/DL Juan F AustinGLUCOSE TOLERANCE GESTATIONAL, 100 GM LOAD, DIAG., (FASTING,1HR 2024-02-18 00:00:00* Test Item Value Reference Range Interpretation Comme nts GLUCOSE, FASTING (test code = ) 96 MG/DL GLUCOSE, 1 HR (test code = ) 243 MG/DL GLUCOSE, 2 HR (test code = ) 254 MG/DL GLUCOSE, 3 HR (test code = ) 199 MG/DL Juan SantanaPROTEIN, URINE, 24 [id number] 01:06:24* Test Item Value Reference Range Interpretation Comme nts PROTEIN, URINE, CONC. (test code = 2103) 31 MG/DL NOT ESTAB PROTEIN, URINE 24 HR (test code = 2059) 930 MG/24 HOURS 0-150 H TOTAL URINE VOLUME (test code = 2055) 3000 ML [id number] UNLESS OTHERWISE INDICATED, ALL TESTING PERFORMED AT [facility] [address] [id number] SELLING SPECIALIST: DERRICK FISHER M.D. [place] NUMBER [id number] [facility]. [id number] PROTEIN, 24 HOUR [id number] 00:00:00* Test Item Value Reference Range Interpretation Comme nts PROTEIN, URINE, CONC. (test code = 2103) 31 MG/DL PROTEIN, URINE 24 HR (test code = 2059) 930 MG/24HOURS TOTAL URINE VOLUME (test cod e = 2055) 3000 ML Juan F AustinPROTEIN, 24 HOUR [id number] 00:00:00* Test Item Value Reference Range Interpretation Comme nts PROTEIN, URINE, CONC. (test code = 2103) 31 MG/DL PROTEIN, URINE 24 HR (test code = 2059) 930 MG/24HOURS TOTAL URINE VOLUME (test cod e = 2055) 3000 ML Juan F AustinPROTEIN, 24 HOUR [id number] 00:00:00* Test Item Value Reference Range Interpretation Comme nts PROTEIN, URINE, CONC. (test code = 2103) 31 MG/DL PROTEIN, URINE 24 HR (test code = 2059) 930 MG/24HOURS TOTAL URINE VOLUME (test cod e = 2055) 3000 ML Juan F AustinPROTEIN, 24 HOUR [id number] 00:00:00* Test Item Value Reference Range Interpretation Comme nts PROTEIN, URINE, CONC. (test code = 2103) 31 MG/DL PROTEIN, URINE 24 HR (test code = 2059) 930 MG/24HOURS TOTAL URINE VOLUME (test cod e = 2055) 3000 ML Juan F AustinPROTEIN, 24 HOUR [id number] 00:00:00* Test Item Value Reference Range Interpretation Comme nts PROTEIN, URINE, CONC. (test code = 2103) 31 MG/DL PROTEIN, URINE 24 HR (test code = 2059) 930 MG/24HOURS TOTAL URINE VOLUME (test cod e = 2055) 3000 ML Juan F AustinPROTEIN, 24 HOUR [id number] 00:00:00* Test Item Value Reference Range Interpretation Comme nts PROTEIN, URINE, CONC. (test code = 2103) 31 MG/DL PROTEIN, URINE 24 HR (test code = 2059) 930 MG/24HOURS TOTAL URINE VOLUME (test cod e = 2055) 3000 ML Juan F AustinPROTEIN, 24 HOUR [id number] 00:00:00* Test Item Value Reference Range Interpretation Comme nts PROTEIN, URINE, CONC. (test code = 2103) 31 MG/DL PROTEIN, URINE 24 HR (test code = 2059) 930 MG/24HOURS TOTAL URINE VOLUME (test cod e = 2055) 3000 ML Juan F AustinPROTEIN, 24 HOUR [id number] 00:00:00* Test Item Value Reference Range Interpretation Comme nts PROTEIN, URINE, CONC. (test code = 2103) 31 MG/DL PROTEIN, URINE 24 HR (test code = 2059) 930 MG/24HOURS TOTAL URINE VOLUME (test cod e = 2055) 3000 ML Juan F AustinPROTEIN, 24 HOUR [id number] 00:00:00* Test Item Value Reference Range Interpretation Comme nts PROTEIN, URINE, CONC. (test code = 2103) 31 MG/DL PROTEIN, URINE 24 HR (test code = 2059) 930 MG/24HOURS TOTAL URINE VOLUME (test cod e = 2055) 3000 ML Juan F AustinPROTEIN, 24 HOUR [id number] 00:00:00* Test Item Value Reference Range Interpretation Comme nts PROTEIN, URINE, CONC. (test code = 2103) 31 MG/DL PROTEIN, URINE 24 HR (test code = 2059) 930 MG/24HOURS TOTAL URINE VOLUME (test cod e = 2055) 3000 ML Juan F AustinPROTEIN, 24 HOUR [id number] 00:00:00* Test Item Value Reference Range Interpretation Comme nts PROTEIN, URINE, CONC. (test code = 2103) 31 MG/DL PROTEIN, URINE 24 HR (test code = 2059) 930 MG/24HOURS TOTAL URINE VOLUME (test cod e = 2055) 3000 ML Juan F AustinHEMOGLOBIN [id number] 00:00:00* Test Item Value Reference Range Interpretation Comme nts HEMOGLOBIN A1 (test code = 2575) 97.0 % HEMOGLOBIN A2 (test code = 2576) 2.4 % HEMOGLOBIN F () (test c ode = 2722) 0.6 % HEMOGLOBIN S (test code = 2724) NONE % HEMOGLOBIN C (test code = 2726) NONE % OTHER HEMOGLOBIN VARIANT (te st code = 86139) NONE DETEC % PATHOLOGIST'S INTERPRETATION (test code = 2577) (NOTE) Juan Richard AustinHEMOGLOBIN [id number] 00:00:00* Test Item Value Reference Range Interpretation Comme nts HEMOGLOBIN A1 (test code = 2575) 97.0 % HEMOGLOBIN A2 (test code = 2576) 2.4 % HEMOGLOBIN F () (test c ode = 2722) 0.6 % HEMOGLOBIN S (test code = 2724) NONE % HEMOGLOBIN C (test code = 2726) NONE % OTHER HEMOGLOBIN VARIANT (te st code = 23633) NONE DETEC % PATHOLOGIST'S INTERPRETATION (test code = 2577) (NOTE) Juan Richard AustinHEMOGLOBIN [id number] 00:00:00* Test Item Value Reference Range Interpretation Comme nts HEMOGLOBIN A1 (test code = 2575) 97.0 % HEMOGLOBIN A2 (test code = 2576) 2.4 % HEMOGLOBIN F () (test c ode = 2722) 0.6 % HEMOGLOBIN S (test code = 2724) NONE % HEMOGLOBIN C (test code = 2726) NONE % OTHER HEMOGLOBIN VARIANT (te st code = 42628) NONE DETEC % PATHOLOGIST'S INTERPRETATION (test code = 2577) (NOTE) Juan Richard AustinHEMOGLOBIN [id number] 00:00:00* Test Item Value Reference Range Interpretation Comme nts HEMOGLOBIN A1 (test code = 2575) 97.0 % HEMOGLOBIN A2 (test code = 2576) 2.4 % HEMOGLOBIN F () (test c ode = 2722) 0.6 % HEMOGLOBIN S (test code = 2724) NONE % HEMOGLOBIN C (test code = 2726) NONE % OTHER HEMOGLOBIN VARIANT (te st code = 99489) NONE DETEC % PATHOLOGIST'S INTERPRETATION (test code = 2577) (NOTE) Juan Richard AustinHEMOGLOBIN [id number] 00:00:00* Test Item Value Reference Range Interpretation Comme nts HEMOGLOBIN A1 (test code = 2575) 97.0 % HEMOGLOBIN A2 (test code = 2576) 2.4 % HEMOGLOBIN F () (test c ode = 2722) 0.6 % HEMOGLOBIN S (test code = 2724) NONE % HEMOGLOBIN C (test code = 2726) NONE % OTHER HEMOGLOBIN VARIANT (te st code = 09211) NONE DETEC % PATHOLOGIST'S INTERPRETATION (test code = 2577) (NOTE) Juan Richard AustinHEMOGLOBIN [id number] 00:00:00* Test Item Value Reference Range Interpretation Comme nts HEMOGLOBIN A1 (test code = 2575) 97.0 % HEMOGLOBIN A2 (test code = 2576) 2.4 % HEMOGLOBIN F () (test c ode = 2722) 0.6 % HEMOGLOBIN S (test code = 2724) NONE % HEMOGLOBIN C (test code = 2726) NONE % OTHER HEMOGLOBIN VARIANT (te st code = 34613) NONE DETEC % PATHOLOGIST'S INTERPRETATION (test code = 2577) (NOTE) Juan Richard AustinHEMOGLOBIN [id number] 00:00:00* Test Item Value Reference Range Interpretation Comme nts HEMOGLOBIN A1 (test code = 2575) 97.0 % HEMOGLOBIN A2 (test code = 2576) 2.4 % HEMOGLOBIN F () (test c ode = 2722) 0.6 % HEMOGLOBIN S (test code = 2724) NONE % HEMOGLOBIN C (test code = 2726) NONE % OTHER HEMOGLOBIN VARIANT (te st code = 52882) NONE DETEC % PATHOLOGIST'S INTERPRETATION (test code = 2577) (NOTE) Juan Richard AustinHEMOGLOBIN [id number] 00:00:00* Test Item Value Reference Range Interpretation Comme nts HEMOGLOBIN A1 (test code = 2575) 97.0 % HEMOGLOBIN A2 (test code = 2576) 2.4 % HEMOGLOBIN F () (test c ode = 2722) 0.6 % HEMOGLOBIN S (test code = 2724) NONE % HEMOGLOBIN C (test code = 2726) NONE % OTHER HEMOGLOBIN VARIANT (te st code = 32013) NONE DETEC % PATHOLOGIST'S INTERPRETATION (test code = 2577) (NOTE) Juan Richard AustinHEMOGLOBIN [id number] 00:00:00* Test Item Value Reference Range Interpretation Comme nts HEMOGLOBIN A1 (test code = 2575) 97.0 % HEMOGLOBIN A2 (test code = 2576) 2.4 % HEMOGLOBIN F () (test c ode = 2722) 0.6 % HEMOGLOBIN S (test code = 2724) NONE % HEMOGLOBIN C (test code = 2726) NONE % OTHER HEMOGLOBIN VARIANT (te st code = 98889) NONE DETEC % PATHOLOGIST'S INTERPRETATION (test code = 2577) (NOTE) Juan Richard AustinHEMOGLOBIN [id number] 00:00:00* Test Item Value Reference Range Interpretation Comme nts HEMOGLOBIN A1 (test code = 2575) 97.0 % HEMOGLOBIN A2 (test code = 2576) 2.4 % HEMOGLOBIN F () (test c ode = 2722) 0.6 % HEMOGLOBIN S (test code = 2724) NONE % HEMOGLOBIN C (test code = 2726) NONE % OTHER HEMOGLOBIN VARIANT (te st code = 51734) NONE DETEC % PATHOLOGIST'S INTERPRETATION (test code = 2577) (NOTE) Juan Richard AustinHEMOGLOBIN [id number] 00:00:00* Test Item Value Reference Range Interpretation Comme nts HEMOGLOBIN A1 (test code = 2575) 97.0 % HEMOGLOBIN A2 (test code = 2576) 2.4 % HEMOGLOBIN F () (test c ode = 2722) 0.6 % HEMOGLOBIN S (test code = 2724) NONE % HEMOGLOBIN C (test code = 2726) NONE % OTHER HEMOGLOBIN VARIANT (te st code = 73027) NONE DETEC % PATHOLOGIST'S INTERPRETATION (test code = 2577) (NOTE) Juan Richard AustinCT/NG, NAAT, [id number] 00:00:00* Test Item Value Reference Range Interpretation Comme nts CHLAMYDIA, NAAT, URINE (test code = 36251) NEGATIVE GONORRHEA, NAAT, URINE (test code = 34133) NEGATIVE Juan Richard AustinCT/NG, NAAT, [id number] 00:00:00* Test Item Value Reference Range Interpretation Comme nts CHLAMYDIA, NAAT, URINE (test code = 23054) NEGATIVE GONORRHEA, NAAT, URINE (test code = 26114) NEGATIVE Juan Richard AustinCT/NG, NAAT, [id number] 00:00:00* Test Item Value Reference Range Interpretation Comme nts CHLAMYDIA, NAAT, URINE (test code = 38732) NEGATIVE GONORRHEA, NAAT, URINE (test code = 32680) NEGATIVE Juan Richard AustinCT/NG, NAAT, [id number] 00:00:00* Test Item Value Reference Range Interpretation Comme nts CHLAMYDIA, NAAT, URINE (test code = 73044) NEGATIVE GONORRHEA, NAAT, URINE (test code = 24287) NEGATIVE Juan F AustinCT/NG, NAAT, [id number] 00:00:00* Test Item Value Reference Range Interpretation Comme nts CHLAMYDIA, NAAT, URINE (test code = 47025) NEGATIVE GONORRHEA, NAAT, URINE (test code = 94845) NEGATIVE Juan F AustinCT/NG, NAAT, [id number] 00:00:00* Test Item Value Reference Range Interpretation Comme nts CHLAMYDIA, NAAT, URINE (test code = 10533) NEGATIVE GONORRHEA, NAAT, URINE (test code = 18744) NEGATIVE Juan F AustinCT/NG, NAAT, [id number] 00:00:00* Test Item Value Reference Range Interpretation Comme nts CHLAMYDIA, NAAT, URINE (test code = 17086) NEGATIVE GONORRHEA, NAAT, URINE (test code = 45403) NEGATIVE Juan F AustinCT/NG, NAAT, [id number] 00:00:00* Test Item Value Reference Range Interpretation Comme nts CHLAMYDIA, NAAT, URINE (test code = 98302) NEGATIVE GONORRHEA, NAAT, URINE (test code = 32134) NEGATIVE Juan F AustinCT/NG, NAAT, [id number] 00:00:00* Test Item Value Reference Range Interpretation Comme nts CHLAMYDIA, NAAT, URINE (test code = 13770) NEGATIVE GONORRHEA, NAAT, URINE (test code = 48919) NEGATIVE Juan F AustinCT/NG, NAAT, [id number] 00:00:00* Test Item Value Reference Range Interpretation Comme nts CHLAMYDIA, NAAT, URINE (test code = 88671) NEGATIVE GONORRHEA, NAAT, URINE (test code = 45188) NEGATIVE Juan F AustinCT/NG, NAAT, [id number] 00:00:00* Test Item Value Reference Range Interpretation Comme nts CHLAMYDIA, NAAT, URINE (test code = 42416) NEGATIVE GONORRHEA, NAAT, URINE (test code = 41523) NEGATIVE Juan F AustinOBSTETRIC PANEL + [id number] 00:00:00* Test Item Value Reference Range Interpretation Comme nts WBC (test code = 1001) 16.2 K/UL RBC (test code = 1002) 3.70 M/UL HEMOGLOBIN (test code = 1003) 12.5 G/DL HEMATOCRIT (test code = 1004) 37.0 % MCV (test code = 1005) 100.0 fL MCH (test code = 1006) 33.8 PG MCHC (test code = 1007) 33.8 G/DL RDW (test code = 1038) 12.4 % NEUTROPHILS (test code = 1008) 75.5 % LYMPHOCYTES (test code = 1010) 15.3 % MONOCYTES (test code = 1011) 5.3 % EOSINOPHILS (test code = 1012) 0.4 % BASOPHILS (test code = 1013) 0.3 % IMMATURE GRANULOCYTES (test code = 1036) 3.2 % NUCLEATED RBCS (test code = 1065) 0.0 /100WBC'S PLATELET COUNT (test code = 1015) 290 K/UL ABSOLUTE NEUTROPHILS (test code = 1066) 12.24 K/UL ABSOLUTE LYMPHOCYTES (test code = 1067) 2.47 K/UL ABSOLUTE MONOCYTES (test code = 1068) 0.85 K/UL ABSOLUTE EOSINOPHILS (test code = 1040) 0.06 K/UL ABSOLUTE BASOPHILS (test code = 1069) 0.05 K/UL ABS IMMATURE GRANULOCYTES (test code = 1020) 0.51 K/UL ABS NUCLEATED RBCS (test code = 39552) 0.00 K/UL BLOOD TYPE AND RH (test code = 3901) O POSITIVE ANTIBODY SCREEN (test code = 3902) NEGATIVE RUBELLA ANTIBODY SCREEN (test code = 4600) 11 IU/ML RUBELLA IgG INTERP (test code = 45940) REACTIVE HEPATITIS B SURF AG (test code = 2739) NON-REACTIVE RPR (test code = 61543) NON-REACTIVE RPR TITER (test code = 3500) NOT INDIC. TITER HIV 1/2 4TH GEN, RFLX CONF (test code = 3514) NON-REACTIVE Juan SantanaHEPATITIS C REFLEX [id number] 00:00:00* Test Item Value Reference Range Interpretation Comme nts HEPATITIS C ANTIBODY (test c ode = 4675) NON-REACTIVE Juan SantanaDRUG ABUSE SCREEN 10 REFLEX [id number] 00:00:00* Test Item Value Reference Range Interpretation Comme nts AMPHETAMINES (test code = 3201) NEGATIVE BARBITURATES (test code = 3202) NEGATIVE BENZODIAZEPINES (test code = 3203) NEGATIVE CANNABINOIDS (test code = 3204) NEGATIVE COCAINE METABOLITE (test cod e = 3205) NEGATIVE OPIATES (test code = 3209) NEGATIVE OXYCODONE (test code = 95863) NEGATIVE PHENCYCLIDINE (test code = 3210) NEGATIVE METHADONE (test code = 3207) NEGATIVE BUPRENORPHINE (test code = 36051) NEGATIVE SOURCE (test code = 787088) URINE Juan Richard AustinCULTURE, [id number] 00:00:00* Test Item Value Reference Range Interpretation Comme nts CULTURE, URINE (test code = 62968) SPECIMEN NUMBER: [id number] Juan Richard AustinOBSTETRIC PANEL + [id number] 00:00:00* Test Item Value Reference Range Interpretation Comme nts WBC (test code = 1001) 16.2 K/UL RBC (test code = 1002) 3.70 M/UL HEMOGLOBIN (test code = 1003) 12.5 G/DL HEMATOCRIT (test code = 1004) 37.0 % MCV (test code = 1005) 100.0 fL MCH (test code = 1006) 33.8 PG MCHC (test code = 1007) 33.8 G/DL RDW (test code = 1038) 12.4 % NEUTROPHILS (test code = 1008) 75.5 % LYMPHOCYTES (test code = 1010) 15.3 % MONOCYTES (test code = 1011) 5.3 % EOSINOPHILS (test code = 1012) 0.4 % BASOPHILS (test code = 1013) 0.3 % IMMATURE GRANULOCYTES (test code = 1036) 3.2 % NUCLEATED RBCS (test code = 1065) 0.0 /100WBC'S PLATELET COUNT (test code = 1015) 290 K/UL ABSOLUTE NEUTROPHILS (test code = 1066) 12.24 K/UL ABSOLUTE LYMPHOCYTES (test code = 1067) 2.47 K/UL ABSOLUTE MONOCYTES (test code = 1068) 0.85 K/UL ABSOLUTE EOSINOPHILS (test code = 1040) 0.06 K/UL ABSOLUTE BASOPHILS (test code = 1069) 0.05 K/UL ABS IMMATURE GRANULOCYTES (test code = 1020) 0.51 K/UL ABS NUCLEATED RBCS (test code = 84427) 0.00 K/UL BLOOD TYPE AND RH (test code = 3901) O POSITIVE ANTIBODY SCREEN (test code = 3902) NEGATIVE RUBELLA ANTIBODY SCREEN (test code = 4600) 11 IU/ML RUBELLA IgG INTERP (test code = 02374) REACTIVE HEPATITIS B SURF AG (test code = 2739) NON-REACTIVE RPR (test code = 07226) NON-REACTIVE RPR TITER (test code = 3500) NOT INDIC. TITER HIV 1/2 4TH GEN, RFLX CONF (test code = 3514) NON-REACTIVE Juan SantanaHEPATITIS C REFLEX [id number] 00:00:00* Test Item Value Reference Range Interpretation Comme nts HEPATITIS C ANTIBODY (test c ode = 4675) NON-REACTIVE Juan SantanaDRUG ABUSE SCREEN 10 REFLEX [id number] 00:00:00* Test Item Value Reference Range Interpretation Comme nts AMPHETAMINES (test code = 3201) NEGATIVE BARBITURATES (test code = 3202) NEGATIVE BENZODIAZEPINES (test code = 3203) NEGATIVE CANNABINOIDS (test code = 3204) NEGATIVE COCAINE METABOLITE (test cod e = 3205) NEGATIVE OPIATES (test code = 3209) NEGATIVE OXYCODONE (test code = 84283) NEGATIVE PHENCYCLIDINE (test code = 3210) NEGATIVE METHADONE (test code = 3207) NEGATIVE BUPRENORPHINE (test code = 17090) NEGATIVE SOURCE (test code = 751614) URINE Juan SantanaCULTURE, [id number] 00:00:00* Test Item Value Reference Range Interpretation Comme nts CULTURE, URINE (test code = 72239) SPECIMEN NUMBER: [id number] Juan SantanaOBSTETRIC PANEL + [id number] 00:00:00* Test Item Value Reference Range Interpretation Comme nts WBC (test code = 1001) 16.2 K/UL RBC (test code = 1002) 3.70 M/UL HEMOGLOBIN (test code = 1003) 12.5 G/DL HEMATOCRIT (test code = 1004) 37.0 % MCV (test code = 1005) 100.0 fL MCH (test code = 1006) 33.8 PG MCHC (test code = 1007) 33.8 G/DL RDW (test code = 1038) 12.4 % NEUTROPHILS (test code = 1008) 75.5 % LYMPHOCYTES (test code = 1010) 15.3 % MONOCYTES (test code = 1011) 5.3 % EOSINOPHILS (test code = 1012) 0.4 % BASOPHILS (test code = 1013) 0.3 % IMMATURE GRANULOCYTES (test code = 1036) 3.2 % NUCLEATED RBCS (test code = 1065) 0.0 /100WBC'S PLATELET COUNT (test code = 1015) 290 K/UL ABSOLUTE NEUTROPHILS (test code = 1066) 12.24 K/UL ABSOLUTE LYMPHOCYTES (test code = 1067) 2.47 K/UL ABSOLUTE MONOCYTES (test code = 1068) 0.85 K/UL ABSOLUTE EOSINOPHILS (test code = 1040) 0.06 K/UL ABSOLUTE BASOPHILS (test code = 1069) 0.05 K/UL ABS IMMATURE GRANULOCYTES (test code = 1020) 0.51 K/UL ABS NUCLEATED RBCS (test code = 19281) 0.00 K/UL BLOOD TYPE AND RH (test code = 3901) O POSITIVE ANTIBODY SCREEN (test code = 3902) NEGATIVE RUBELLA ANTIBODY SCREEN (test code = 4600) 11 IU/ML RUBELLA IgG INTERP (test code = 95730) REACTIVE HEPATITIS B SURF AG (test code = 2739) NON-REACTIVE RPR (test code = 77655) NON-REACTIVE RPR TITER (test code = 3500) NOT INDIC. TITER HIV 1/2 4TH GEN, RFLX CONF (test code = 3514) NON-REACTIVE Juan SantanaHEPATITIS C REFLEX [id number] 00:00:00* Test Item Value Reference Range Interpretation Comme nts HEPATITIS C ANTIBODY (test c ode = 4675) NON-REACTIVE Juan SantanaCULTURE, [id number] 00:00:00* Test Item Value Reference Range Interpretation Comme nts CULTURE, URINE (test code = 28260) SPECIMEN NUMBER: [id number] Juan SantanaDRUG ABUSE SCREEN 10 REFLEX [id number] 00:00:00* Test Item Value Reference Range Interpretation Comme nts AMPHETAMINES (test code = 3201) NEGATIVE BARBITURATES (test code = 3202) NEGATIVE BENZODIAZEPINES (test code = 3203) NEGATIVE CANNABINOIDS (test code = 3204) NEGATIVE COCAINE METABOLITE (test cod e = 3205) NEGATIVE OPIATES (test code = 3209) NEGATIVE OXYCODONE (test code = 30681) NEGATIVE PHENCYCLIDINE (test code = 3210) NEGATIVE METHADONE (test code = 3207) NEGATIVE BUPRENORPHINE (test code = 11628) NEGATIVE SOURCE (test code = 076663) URINE Juan Richard AustinOBSTETRIC PANEL + [id number] 00:00:00* Test Item Value Reference Range Interpretation Comme nts WBC (test code = 1001) 16.2 K/UL RBC (test code = 1002) 3.70 M/UL HEMOGLOBIN (test code = 1003) 12.5 G/DL HEMATOCRIT (test code = 1004) 37.0 % MCV (test code = 1005) 100.0 fL MCH (test code = 1006) 33.8 PG MCHC (test code = 1007) 33.8 G/DL RDW (test code = 1038) 12.4 % NEUTROPHILS (test code = 1008) 75.5 % LYMPHOCYTES (test code = 1010) 15.3 % MONOCYTES (test code = 1011) 5.3 % EOSINOPHILS (test code = 1012) 0.4 % BASOPHILS (test code = 1013) 0.3 % IMMATURE GRANULOCYTES (test code = 1036) 3.2 % NUCLEATED RBCS (test code = 1065) 0.0 /100WBC'S PLATELET COUNT (test code = 1015) 290 K/UL ABSOLUTE NEUTROPHILS (test code = 1066) 12.24 K/UL ABSOLUTE LYMPHOCYTES (test code = 1067) 2.47 K/UL ABSOLUTE MONOCYTES (test code = 1068) 0.85 K/UL ABSOLUTE EOSINOPHILS (test code = 1040) 0.06 K/UL ABSOLUTE BASOPHILS (test code = 1069) 0.05 K/UL ABS IMMATURE GRANULOCYTES (test code = 1020) 0.51 K/UL ABS NUCLEATED RBCS (test code = 80505) 0.00 K/UL BLOOD TYPE AND RH (test code = 3901) O POSITIVE ANTIBODY SCREEN (test code = 3902) NEGATIVE RUBELLA ANTIBODY SCREEN (test code = 4600) 11 IU/ML RUBELLA IgG INTERP (test code = 69958) REACTIVE HEPATITIS B SURF AG (test code = 2739) NON-REACTIVE RPR (test code = 87815) NON-REACTIVE RPR TITER (test code = 3500) NOT INDIC. TITER HIV 1/2 4TH GEN, RFLX CONF (test code = 3514) NON-REACTIVE Juan SantanaHEPATITIS C REFLEX [id number] 00:00:00* Test Item Value Reference Range Interpretation Comme nts HEPATITIS C ANTIBODY (test c ode = 4675) NON-REACTIVE Juan SantanaDRUG ABUSE SCREEN 10 REFLEX [id number] 00:00:00* Test Item Value Reference Range Interpretation Comme nts AMPHETAMINES (test code = 3201) NEGATIVE BARBITURATES (test code = 3202) NEGATIVE BENZODIAZEPINES (test code = 3203) NEGATIVE CANNABINOIDS (test code = 3204) NEGATIVE COCAINE METABOLITE (test cod e = 3205) NEGATIVE OPIATES (test code = 3209) NEGATIVE OXYCODONE (test code = 97108) NEGATIVE PHENCYCLIDINE (test code = 3210) NEGATIVE METHADONE (test code = 3207) NEGATIVE BUPRENORPHINE (test code = 45439) NEGATIVE SOURCE (test code = 532593) URINE Juan SantanaCULTURE, [id number] 00:00:00* Test Item Value Reference Range Interpretation Comme nts CULTURE, URINE (test code = 27192) SPECIMEN NUMBER: [id number] Juan SantanaOBSTETRIC PANEL + [id number] 00:00:00* Test Item Value Reference Range Interpretation Comme nts WBC (test code = 1001) 16.2 K/UL RBC (test code = 1002) 3.70 M/UL HEMOGLOBIN (test code = 1003) 12.5 G/DL HEMATOCRIT (test code = 1004) 37.0 % MCV (test code = 1005) 100.0 fL MCH (test code = 1006) 33.8 PG MCHC (test code = 1007) 33.8 G/DL RDW (test code = 1038) 12.4 % NEUTROPHILS (test code = 1008) 75.5 % LYMPHOCYTES (test code = 1010) 15.3 % MONOCYTES (test code = 1011) 5.3 % EOSINOPHILS (test code = 1012) 0.4 % BASOPHILS (test code = 1013) 0.3 % IMMATURE GRANULOCYTES (test code = 1036) 3.2 % NUCLEATED RBCS (test code = 1065) 0.0 /100WBC'S PLATELET COUNT (test code = 1015) 290 K/UL ABSOLUTE NEUTROPHILS (test code = 1066) 12.24 K/UL ABSOLUTE LYMPHOCYTES (test code = 1067) 2.47 K/UL ABSOLUTE MONOCYTES (test code = 1068) 0.85 K/UL ABSOLUTE EOSINOPHILS (test code = 1040) 0.06 K/UL ABSOLUTE BASOPHILS (test code = 1069) 0.05 K/UL ABS IMMATURE GRANULOCYTES (test code = 1020) 0.51 K/UL ABS NUCLEATED RBCS (test code = 29127) 0.00 K/UL BLOOD TYPE AND RH (test code = 3901) O POSITIVE ANTIBODY SCREEN (test code = 3902) NEGATIVE RUBELLA ANTIBODY SCREEN (test code = 4600) 11 IU/ML RUBELLA IgG INTERP (test code = 68367) REACTIVE HEPATITIS B SURF AG (test code = 2739) NON-REACTIVE RPR (test code = 77887) NON-REACTIVE RPR TITER (test code = 3500) NOT INDIC. TITER HIV 1/2 4TH GEN, RFLX CONF (test code = 3514) NON-REACTIVE Juan SantanaHEPATITIS C REFLEX [id number] 00:00:00* Test Item Value Reference Range Interpretation Comme nts HEPATITIS C ANTIBODY (test c ode = 4675) NON-REACTIVE Juan SantanaDRUG ABUSE SCREEN 10 REFLEX [id number] 00:00:00* Test Item Value Reference Range Interpretation Comme nts AMPHETAMINES (test code = 3201) NEGATIVE BARBITURATES (test code = 3202) NEGATIVE BENZODIAZEPINES (test code = 3203) NEGATIVE CANNABINOIDS (test code = 3204) NEGATIVE COCAINE METABOLITE (test cod e = 3205) NEGATIVE OPIATES (test code = 3209) NEGATIVE OXYCODONE (test code = 98698) NEGATIVE PHENCYCLIDINE (test code = 3210) NEGATIVE METHADONE (test code = 3207) NEGATIVE BUPRENORPHINE (test code = 00594) NEGATIVE SOURCE (test code = 021228) URINE Juan SantanaCULTURE, [id number] 00:00:00* Test Item Value Reference Range Interpretation Comme nts CULTURE, URINE (test code = 76527) SPECIMEN NUMBER: [id number] Juan Richard AustinOBSTETRIC PANEL + [id number] 00:00:00* Test Item Value Reference Range Interpretation Comme nts WBC (test code = 1001) 16.2 K/UL RBC (test code = 1002) 3.70 M/UL HEMOGLOBIN (test code = 1003) 12.5 G/DL HEMATOCRIT (test code = 1004) 37.0 % MCV (test code = 1005) 100.0 fL MCH (test code = 1006) 33.8 PG MCHC (test code = 1007) 33.8 G/DL RDW (test code = 1038) 12.4 % NEUTROPHILS (test code = 1008) 75.5 % LYMPHOCYTES (test code = 1010) 15.3 % MONOCYTES (test code = 1011) 5.3 % EOSINOPHILS (test code = 1012) 0.4 % BASOPHILS (test code = 1013) 0.3 % IMMATURE GRANULOCYTES (test code = 1036) 3.2 % NUCLEATED RBCS (test code = 1065) 0.0 /100WBC'S PLATELET COUNT (test code = 1015) 290 K/UL ABSOLUTE NEUTROPHILS (test code = 1066) 12.24 K/UL ABSOLUTE LYMPHOCYTES (test code = 1067) 2.47 K/UL ABSOLUTE MONOCYTES (test code = 1068) 0.85 K/UL ABSOLUTE EOSINOPHILS (test code = 1040) 0.06 K/UL ABSOLUTE BASOPHILS (test code = 1069) 0.05 K/UL ABS IMMATURE GRANULOCYTES (test code = 1020) 0.51 K/UL ABS NUCLEATED RBCS (test code = 82620) 0.00 K/UL BLOOD TYPE AND RH (test code = 3901) O POSITIVE ANTIBODY SCREEN (test code = 3902) NEGATIVE RUBELLA ANTIBODY SCREEN (test code = 4600) 11 IU/ML RUBELLA IgG INTERP (test code = 11719) REACTIVE HEPATITIS B SURF AG (test code = 2739) NON-REACTIVE RPR (test code = 43695) NON-REACTIVE RPR TITER (test code = 3500) NOT INDIC. TITER HIV 1/2 4TH GEN, RFLX CONF (test code = 3514) NON-REACTIVE Juan SantanaHEPATITIS C REFLEX [id number] 00:00:00* Test Item Value Reference Range Interpretation Comme nts HEPATITIS C ANTIBODY (test c ode = 4675) NON-REACTIVE Juan SantanaDRUG ABUSE SCREEN 10 REFLEX [id number] 00:00:00* Test Item Value Reference Range Interpretation Comme nts AMPHETAMINES (test code = 3201) NEGATIVE BARBITURATES (test code = 3202) NEGATIVE BENZODIAZEPINES (test code = 3203) NEGATIVE CANNABINOIDS (test code = 3204) NEGATIVE COCAINE METABOLITE (test cod e = 3205) NEGATIVE OPIATES (test code = 3209) NEGATIVE OXYCODONE (test code = 66580) NEGATIVE PHENCYCLIDINE (test code = 3210) NEGATIVE METHADONE (test code = 3207) NEGATIVE BUPRENORPHINE (test code = 16563) NEGATIVE SOURCE (test code = 719280) URINE Juan SantanaCULTURE, [id number] 00:00:00* Test Item Value Reference Range Interpretation Comme nts CULTURE, URINE (test code = 54356) SPECIMEN NUMBER: [id number] Juan Richard AustinOBSTETRIC PANEL + [id number] 00:00:00* Test Item Value Reference Range Interpretation Comme nts WBC (test code = 1001) 16.2 K/UL RBC (test code = 1002) 3.70 M/UL HEMOGLOBIN (test code = 1003) 12.5 G/DL HEMATOCRIT (test code = 1004) 37.0 % MCV (test code = 1005) 100.0 fL MCH (test code = 1006) 33.8 PG MCHC (test code = 1007) 33.8 G/DL RDW (test code = 1038) 12.4 % NEUTROPHILS (test code = 1008) 75.5 % LYMPHOCYTES (test code = 1010) 15.3 % MONOCYTES (test code = 1011) 5.3 % EOSINOPHILS (test code = 1012) 0.4 % BASOPHILS (test code = 1013) 0.3 % IMMATURE GRANULOCYTES (test code = 1036) 3.2 % NUCLEATED RBCS (test code = 1065) 0.0 /100WBC'S PLATELET COUNT (test code = 1015) 290 K/UL ABSOLUTE NEUTROPHILS (test code = 1066) 12.24 K/UL ABSOLUTE LYMPHOCYTES (test code = 1067) 2.47 K/UL ABSOLUTE MONOCYTES (test code = 1068) 0.85 K/UL ABSOLUTE EOSINOPHILS (test code = 1040) 0.06 K/UL ABSOLUTE BASOPHILS (test code = 1069) 0.05 K/UL ABS IMMATURE GRANULOCYTES (test code = 1020) 0.51 K/UL ABS NUCLEATED RBCS (test code = 20613) 0.00 K/UL BLOOD TYPE AND RH (test code = 3901) O POSITIVE ANTIBODY SCREEN (test code = 3902) NEGATIVE RUBELLA ANTIBODY SCREEN (test code = 4600) 11 IU/ML RUBELLA IgG INTERP (test code = 38582) REACTIVE HEPATITIS B SURF AG (test code = 2739) NON-REACTIVE RPR (test code = 74991) NON-REACTIVE RPR TITER (test code = 3500) NOT INDIC. TITER HIV 1/2 4TH GEN, RFLX CONF (test code = 3514) NON-REACTIVE Juan SantanaHEPATITIS C REFLEX [id number] 00:00:00* Test Item Value Reference Range Interpretation Comme nts HEPATITIS C ANTIBODY (test c ode = 4675) NON-REACTIVE Juan SantanaDRUG ABUSE SCREEN 10 REFLEX [id number] 00:00:00* Test Item Value Reference Range Interpretation Comme nts AMPHETAMINES (test code = 3201) NEGATIVE BARBITURATES (test code = 3202) NEGATIVE BENZODIAZEPINES (test code = 3203) NEGATIVE CANNABINOIDS (test code = 3204) NEGATIVE COCAINE METABOLITE (test cod e = 3205) NEGATIVE OPIATES (test code = 3209) NEGATIVE OXYCODONE (test code = 44786) NEGATIVE PHENCYCLIDINE (test code = 3210) NEGATIVE METHADONE (test code = 3207) NEGATIVE BUPRENORPHINE (test code = 72419) NEGATIVE SOURCE (test code = 398941) URINE Juan SantanaCULTURE, [id number] 00:00:00* Test Item Value Reference Range Interpretation Comme nts CULTURE, URINE (test code = 21080) SPECIMEN NUMBER: [id number] Juan SantanaOBSTETRIC PANEL + [id number] 00:00:00* Test Item Value Reference Range Interpretation Comme nts WBC (test code = 1001) 16.2 K/UL RBC (test code = 1002) 3.70 M/UL HEMOGLOBIN (test code = 1003) 12.5 G/DL HEMATOCRIT (test code = 1004) 37.0 % MCV (test code = 1005) 100.0 fL MCH (test code = 1006) 33.8 PG MCHC (test code = 1007) 33.8 G/DL RDW (test code = 1038) 12.4 % NEUTROPHILS (test code = 1008) 75.5 % LYMPHOCYTES (test code = 1010) 15.3 % MONOCYTES (test code = 1011) 5.3 % EOSINOPHILS (test code = 1012) 0.4 % BASOPHILS (test code = 1013) 0.3 % IMMATURE GRANULOCYTES (test code = 1036) 3.2 % NUCLEATED RBCS (test code = 1065) 0.0 /100WBC'S PLATELET COUNT (test code = 1015) 290 K/UL ABSOLUTE NEUTROPHILS (test code = 1066) 12.24 K/UL ABSOLUTE LYMPHOCYTES (test code = 1067) 2.47 K/UL ABSOLUTE MONOCYTES (test code = 1068) 0.85 K/UL ABSOLUTE EOSINOPHILS (test code = 1040) 0.06 K/UL ABSOLUTE BASOPHILS (test code = 1069) 0.05 K/UL ABS IMMATURE GRANULOCYTES (test code = 1020) 0.51 K/UL ABS NUCLEATED RBCS (test code = 43049) 0.00 K/UL BLOOD TYPE AND RH (test code = 3901) O POSITIVE ANTIBODY SCREEN (test code = 3902) NEGATIVE RUBELLA ANTIBODY SCREEN (test code = 4600) 11 IU/ML RUBELLA IgG INTERP (test code = 43517) REACTIVE HEPATITIS B SURF AG (test code = 2739) NON-REACTIVE RPR (test code = 43801) NON-REACTIVE RPR TITER (test code = 3500) NOT INDIC. TITER HIV 1/2 4TH GEN, RFLX CONF (test code = 3514) NON-REACTIVE Juan Richard AustinHEPATITIS C REFLEX [id number] 00:00:00* Test Item Value Reference Range Interpretation Comme nts HEPATITIS C ANTIBODY (test c ode = 4675) NON-REACTIVE Juan Richard AustinDRUG ABUSE SCREEN 10 REFLEX [id number] 00:00:00* Test Item Value Reference Range Interpretation Comme nts AMPHETAMINES (test code = 3201) NEGATIVE BARBITURATES (test code = 3202) NEGATIVE BENZODIAZEPINES (test code = 3203) NEGATIVE CANNABINOIDS (test code = 3204) NEGATIVE COCAINE METABOLITE (test cod e = 3205) NEGATIVE OPIATES (test code = 3209) NEGATIVE OXYCODONE (test code = 99069) NEGATIVE PHENCYCLIDINE (test code = 2040) NEGATIVE METHADONE (test code = 3207) NEGATIVE BUPRENORPHINE (test code = 86563) NEGATIVE SOURCE (test code = 613677) URINE Juan SantanaCULTURE, [id number] 00:00:00* Test Item Value Reference Range Interpretation Comme nts CULTURE, URINE (test code = 98650) SPECIMEN NUMBER: [id number] Juan SantanaOBSTETRIC PANEL + [id number] 00:00:00* Test Item Value Reference Range Interpretation Comme nts WBC (test code = 1001) 16.2 K/UL RBC (test code = 1002) 3.70 M/UL HEMOGLOBIN (test code = 1003) 12.5 G/DL HEMATOCRIT (test code = 1004) 37.0 % MCV (test code = 1005) 100.0 fL MCH (test code = 1006) 33.8 PG MCHC (test code = 1007) 33.8 G/DL RDW (test code = 1038) 12.4 % NEUTROPHILS (test code = 1008) 75.5 % LYMPHOCYTES (test code = 1010) 15.3 % MONOCYTES (test code = 1011) 5.3 % EOSINOPHILS (test code = 1012) 0.4 % BASOPHILS (test code = 1013) 0.3 % IMMATURE GRANULOCYTES (test code = 1036) 3.2 % NUCLEATED RBCS (test code = 1065) 0.0 /100WBC'S PLATELET COUNT (test code = 1015) 290 K/UL ABSOLUTE NEUTROPHILS (test code = 1066) 12.24 K/UL ABSOLUTE LYMPHOCYTES (test code = 1067) 2.47 K/UL ABSOLUTE MONOCYTES (test code = 1068) 0.85 K/UL ABSOLUTE EOSINOPHILS (test code = 1040) 0.06 K/UL ABSOLUTE BASOPHILS (test code = 1069) 0.05 K/UL ABS IMMATURE GRANULOCYTES (test code = 1020) 0.51 K/UL ABS NUCLEATED RBCS (test code = 76417) 0.00 K/UL BLOOD TYPE AND RH (test code = 3901) O POSITIVE ANTIBODY SCREEN (test code = 3902) NEGATIVE RUBELLA ANTIBODY SCREEN (test code = 4600) 11 IU/ML RUBELLA IgG INTERP (test code = 48454) REACTIVE HEPATITIS B SURF AG (test code = 2739) NON-REACTIVE RPR (test code = 79787) NON-REACTIVE RPR TITER (test code = 3500) NOT INDIC. TITER HIV 1/2 4TH GEN, RFLX CONF (test code = 3514) NON-REACTIVE Juan SantanaHEPATITIS C REFLEX [id number] 00:00:00* Test Item Value Reference Range Interpretation Comme nts HEPATITIS C ANTIBODY (test c ode = 4675) NON-REACTIVE Juan SantanaDRUG ABUSE SCREEN 10 REFLEX [id number] 00:00:00* Test Item Value Reference Range Interpretation Comme nts AMPHETAMINES (test code = 3201) NEGATIVE BARBITURATES (test code = 3202) NEGATIVE BENZODIAZEPINES (test code = 3203) NEGATIVE CANNABINOIDS (test code = 3204) NEGATIVE COCAINE METABOLITE (test cod e = 3205) NEGATIVE OPIATES (test code = 3209) NEGATIVE OXYCODONE (test code = 79255) NEGATIVE PHENCYCLIDINE (test code = 3210) NEGATIVE METHADONE (test code = 3207) NEGATIVE BUPRENORPHINE (test code = 88088) NEGATIVE SOURCE (test code = 372715) URINE Juan SantanaCULTURE, [id number] 00:00:00* Test Item Value Reference Range Interpretation Comme nts CULTURE, URINE (test code = 71356) SPECIMEN NUMBER: [id number] Juan SantanaOBSTETRIC PANEL + [id number] 00:00:00* Test Item Value Reference Range Interpretation Comme nts WBC (test code = 1001) 16.2 K/UL RBC (test code = 1002) 3.70 M/UL HEMOGLOBIN (test code = 1003) 12.5 G/DL HEMATOCRIT (test code = 1004) 37.0 % MCV (test code = 1005) 100.0 fL MCH (test code = 1006) 33.8 PG MCHC (test code = 1007) 33.8 G/DL RDW (test code = 1038) 12.4 % NEUTROPHILS (test code = 1008) 75.5 % LYMPHOCYTES (test code = 1010) 15.3 % MONOCYTES (test code = 1011) 5.3 % EOSINOPHILS (test code = 1012) 0.4 % BASOPHILS (test code = 1013) 0.3 % IMMATURE GRANULOCYTES (test code = 1036) 3.2 % NUCLEATED RBCS (test code = 1065) 0.0 /100WBC'S PLATELET COUNT (test code = 1015) 290 K/UL ABSOLUTE NEUTROPHILS (test code = 1066) 12.24 K/UL ABSOLUTE LYMPHOCYTES (test code = 1067) 2.47 K/UL ABSOLUTE MONOCYTES (test code = 1068) 0.85 K/UL ABSOLUTE EOSINOPHILS (test code = 1040) 0.06 K/UL ABSOLUTE BASOPHILS (test code = 1069) 0.05 K/UL ABS IMMATURE GRANULOCYTES (test code = 1020) 0.51 K/UL ABS NUCLEATED RBCS (test code = 78005) 0.00 K/UL BLOOD TYPE AND RH (test code = 3901) O POSITIVE ANTIBODY SCREEN (test code = 3902) NEGATIVE RUBELLA ANTIBODY SCREEN (test code = 4600) 11 IU/ML RUBELLA IgG INTERP (test code = 45644) REACTIVE HEPATITIS B SURF AG (test code = 2739) NON-REACTIVE RPR (test code = 16949) NON-REACTIVE RPR TITER (test code = 3500) NOT INDIC. TITER HIV 1/2 4TH GEN, RFLX CONF (test code = 3514) NON-REACTIVE Juan Richard AustinHEPATITIS C REFLEX [id number] 00:00:00* Test Item Value Reference Range Interpretation Comme nts HEPATITIS C ANTIBODY (test c ode = 4675) NON-REACTIVE Juan SantanaDRUG ABUSE SCREEN 10 REFLEX [id number] 00:00:00* Test Item Value Reference Range Interpretation Comme nts AMPHETAMINES (test code = 3201) NEGATIVE BARBITURATES (test code = 3202) NEGATIVE BENZODIAZEPINES (test code = 3203) NEGATIVE CANNABINOIDS (test code = 3204) NEGATIVE COCAINE METABOLITE (test cod e = 3205) NEGATIVE OPIATES (test code = 3209) NEGATIVE OXYCODONE (test code = 00314) NEGATIVE PHENCYCLIDINE (test code = 3210) NEGATIVE METHADONE (test code = 3207) NEGATIVE BUPRENORPHINE (test code = 90294) NEGATIVE SOURCE (test code = 466183) URINE Juan SantanaCULTURE, [id number] 00:00:00* Test Item Value Reference Range Interpretation Comme nts CULTURE, URINE (test code = 82958) SPECIMEN NUMBER: [id number] Juan SantanaOBSTETRIC PANEL + [id number] 00:00:00* Test Item Value Reference Range Interpretation Comme nts WBC (test code = 1001) 16.2 K/UL RBC (test code = 1002) 3.70 M/UL HEMOGLOBIN (test code = 1003) 12.5 G/DL HEMATOCRIT (test code = 1004) 37.0 % MCV (test code = 1005) 100.0 fL MCH (test code = 1006) 33.8 PG MCHC (test code = 1007) 33.8 G/DL RDW (test code = 1038) 12.4 % NEUTROPHILS (test code = 1008) 75.5 % LYMPHOCYTES (test code = 1010) 15.3 % MONOCYTES (test code = 1011) 5.3 % EOSINOPHILS (test code = 1012) 0.4 % BASOPHILS (test code = 1013) 0.3 % IMMATURE GRANULOCYTES (test code = 1036) 3.2 % NUCLEATED RBCS (test code = 1065) 0.0 /100WBC'S PLATELET COUNT (test code = 1015) 290 K/UL ABSOLUTE NEUTROPHILS (test code = 1066) 12.24 K/UL ABSOLUTE LYMPHOCYTES (test code = 1067) 2.47 K/UL ABSOLUTE MONOCYTES (test code = 1068) 0.85 K/UL ABSOLUTE EOSINOPHILS (test code = 1040) 0.06 K/UL ABSOLUTE BASOPHILS (test code = 1069) 0.05 K/UL ABS IMMATURE GRANULOCYTES (test code = 1020) 0.51 K/UL ABS NUCLEATED RBCS (test code = 78359) 0.00 K/UL BLOOD TYPE AND RH (test code = 3901) O POSITIVE ANTIBODY SCREEN (test code = 3902) NEGATIVE RUBELLA ANTIBODY SCREEN (test code = 4600) 11 IU/ML RUBELLA IgG INTERP (test code = 90192) REACTIVE HEPATITIS B SURF AG (test code = 2739) NON-REACTIVE RPR (test code = 43870) NON-REACTIVE RPR TITER (test code = 3500) NOT INDIC. TITER HIV 1/2 4TH GEN, RFLX CONF (test code = 3514) NON-REACTIVE Juan Richard AustinHEPATITIS C REFLEX [id number] 00:00:00* Test Item Value Reference Range Interpretation Comme nts HEPATITIS C ANTIBODY (test c ode = 4658) NON-REACTIVE Juan SantanaDRUG ABUSE SCREEN 10 REFLEX [id number] 00:00:00* Test Item Value Reference Range Interpretation Comme nts AMPHETAMINES (test code = 3201) NEGATIVE BARBITURATES (test code = 3202) NEGATIVE BENZODIAZEPINES (test code = 3203) NEGATIVE CANNABINOIDS (test code = 3204) NEGATIVE COCAINE METABOLITE (test cod e = 3205) NEGATIVE OPIATES (test code = 3209) NEGATIVE OXYCODONE (test code = 02167) NEGATIVE PHENCYCLIDINE (test code = 3210) NEGATIVE METHADONE (test code = 3207) NEGATIVE BUPRENORPHINE (test code = 86571) NEGATIVE SOURCE (test code = 313013) URINE Juan SantanaCULTURE, [id number] 00:00:00* Test Item Value Reference Range Interpretation Comme nts CULTURE, URINE (test code = 64081) SPECIMEN NUMBER: [id number] Juan SantanaCBC W/AUTO [id number] 00:00:00* Test Item Value Reference Range Interpretation Comme nts WBC (test code = 1001) 14.8 K/UL RBC (test code = 1002) 3.63 M/UL HEMOGLOBIN (test code = 1003) 12.6 G/DL HEMATOCRIT (test code = 1004) 36.1 % MCV (test code = 1005) 99.4 fL MCH (test code = 1006) 34.7 PG MCHC (test code = 1007) 34.9 G/DL RDW (test code = 1038) 12.1 % NEUTROPHILS (test code = 1008) 74.7 % LYMPHOCYTES (test code = 1010) 15.8 % MONOCYTES (test code = 1011) 6.2 % EOSINOPHILS (test code = 1012) 0.5 % BASOPHILS (test code = 1013) 0.3 % IMMATURE GRANULOCYTES (test code = 1036) 2.5 % NUCLEATED RBCS (test code = 1065) 0.0 /100WBC'S PLATELET COUNT (test code = 1015) 291 K/UL ABSOLUTE NEUTROPHILS (test c ode = 1066) 11.05 K/UL ABSOLUTE LYMPHOCYTES (test c ode = 1067) 2.34 K/UL ABSOLUTE MONOCYTES (test cod e = 1068) 0.92 K/UL ABSOLUTE EOSINOPHILS (test c ode = 1040) 0.08 K/UL ABSOLUTE BASOPHILS (test cod e = 1069) 0.04 K/UL ABS IMMATURE GRANULOCYTES (t est code = 1020) 0.37 K/UL ABS NUCLEATED RBCS (test cod e = 51053) 0.00 K/UL Juan SantanaCT/NG, NAAT, [id number] 00:00:00* Test Item Value Reference Range Interpretation Comme nts CHLAMYDIA, NAAT, URINE (test code = 72440) NEGATIVE GONORRHEA, NAAT, URINE (test code = 07218) NEGATIVE Juan SantanaRPR REFLEX TO T. PALLIDUM - [id number] 00:00:00* Test Item Value Reference Range Interpretation Comme nts RPR (test code = 38177) NON-REACTIVE RPR TITER (test code = 3500) NOT INDIC. TITER Juan SantanaHIV 1/2 4TH GEN, RFLX [id number] 00:00:00* Test Item Value Reference Range Interpretation Comme nts HIV 1/2 4TH GEN, RFLX CONF ( test code = 3514) NON-REACTIVE Juan SantanaGLUCOSE, 1 HR, GESTATIONAL SCREEN, 50 GM [id number] 00:00:00 * Test Item Value Reference Range Interpretation Comme nts GLUCOSE 1 HR POST 50 GM (cristhian t code = 2005) 196 MG/DL Juan SantanaTSH REFLEX TO FREE [id number] 00:00:00* Test Item Value Reference Range Interpretation Comme nts TSH REFLEX TO FREE T4 (test code = 2834) 2.740 UIU/ML Juan SantanaCOMPREHENSIVE METABOLIC [id number] 00:00:00* Test Item Value Reference Range Interpretation Comme nts GLUCOSE (test code = 2217) 198 MG/DL BUN (test code = 2208) 12 MG/DL CREATININE (test code = 2214) 1.03 MG/DL eGFR (2020 CKD-EPI) (test co de = 54057) 69 ML/MIN/1.73 CALC BUN/CREAT (test code = 2235) 12 RATIO SODIUM (test code = 2231) 135 MEQ/L POTASSIUM (test code = 2228) 3.9 MEQ/L CHLORIDE (test code = 2215) 100 MEQ/L CARBON DIOXIDE (test code = 2206) 21 MEQ/L CALCIUM (test code = 2209) 9.2 MG/DL PROTEIN, TOTAL (test code = 2229) 6.4 G/DL ALBUMIN (test code = 2201) 3.7 G/DL CALC GLOBULIN (test code = 2240) 2.7 G/DL CALC A/G RATIO (test code = 2234) 1.4 RATIO BILIRUBIN, TOTAL (test code = 2207) 0.2 MG/DL ALKALINE PHOSPHATASE (test code = 2204) 80 U/L AST (test code = 2218) 17 U/L ALT (test code = 2219) 14 U/L Juan SantanaURIC [id number] 00:00:00* Test Item Value Reference Range Interpretation Comme nts URIC ACID (test code = 2233) 6.8 MG/DL Juan SatnanaCBC W/AUTO [id number] 00:00:00* Test Item Value Reference Range Interpretation Comme nts WBC (test code = 1001) 14.8 K/UL RBC (test code = 1002) 3.63 M/UL HEMOGLOBIN (test code = 1003) 12.6 G/DL HEMATOCRIT (test code = 1004) 36.1 % MCV (test code = 1005) 99.4 fL MCH (test code = 1006) 34.7 PG MCHC (test code = 1007) 34.9 G/DL RDW (test code = 1038) 12.1 % NEUTROPHILS (test code = 1008) 74.7 % LYMPHOCYTES (test code = 1010) 15.8 % MONOCYTES (test code = 1011) 6.2 % EOSINOPHILS (test code = 1012) 0.5 % BASOPHILS (test code = 1013) 0.3 % IMMATURE GRANULOCYTES (test code = 1036) 2.5 % NUCLEATED RBCS (test code = 1065) 0.0 /100WBC'S PLATELET COUNT (test code = 1015) 291 K/UL ABSOLUTE NEUTROPHILS (test c ode = 1066) 11.05 K/UL ABSOLUTE LYMPHOCYTES (test c ode = 1067) 2.34 K/UL ABSOLUTE MONOCYTES (test cod e = 1068) 0.92 K/UL ABSOLUTE EOSINOPHILS (test c ode = 1040) 0.08 K/UL ABSOLUTE BASOPHILS (test cod e = 1069) 0.04 K/UL ABS IMMATURE GRANULOCYTES (t est code = 1020) 0.37 K/UL ABS NUCLEATED RBCS (test cod e = 37969) 0.00 K/UL Juan SantanaCT/NG, NAAT, [id number] 00:00:00* Test Item Value Reference Range Interpretation Comme nts CHLAMYDIA, NAAT, URINE (test code = 76954) NEGATIVE GONORRHEA, NAAT, URINE (test code = 23562) NEGATIVE Juan SantanaRPR REFLEX TO T. PALLIDUM - [id number] 00:00:00* Test Item Value Reference Range Interpretation Comme nts RPR (test code = 32707) NON-REACTIVE RPR TITER (test code = 3500) NOT INDIC. TITER Juan SantanaHIV 1/2 4TH GEN, RFLX [id number] 00:00:00* Test Item Value Reference Range Interpretation Comme nts HIV 1/2 4TH GEN, RFLX CONF ( test code = 3514) NON-REACTIVE Juan SantanaGLUCOSE, 1 HR, GESTATIONAL SCREEN, 50 GM [id number] 00:00:00 * Test Item Value Reference Range Interpretation Comme nts GLUCOSE 1 HR POST 50 GM (cristhian t code = 2005) 196 MG/DL Juan SantanaTSH REFLEX TO FREE [id number] 00:00:00* Test Item Value Reference Range Interpretation Comme nts TSH REFLEX TO FREE T4 (test code = 2834) 2.740 UIU/ML Juan SantanaCOMPREHENSIVE METABOLIC [id number] 00:00:00* Test Item Value Reference Range Interpretation Comme nts GLUCOSE (test code = 2217) 198 MG/DL BUN (test code = 2208) 12 MG/DL CREATININE (test code = 2214) 1.03 MG/DL eGFR (2020 CKD-EPI) (test co de = 87530) 69 ML/MIN/1.73 CALC BUN/CREAT (test code = 2235) 12 RATIO SODIUM (test code = 2231) 135 MEQ/L POTASSIUM (test code = 2228) 3.9 MEQ/L CHLORIDE (test code = 2215) 100 MEQ/L CARBON DIOXIDE (test code = 2206) 21 MEQ/L CALCIUM (test code = 2209) 9.2 MG/DL PROTEIN, TOTAL (test code = 2229) 6.4 G/DL ALBUMIN (test code = 2201) 3.7 G/DL CALC GLOBULIN (test code = 2240) 2.7 G/DL CALC A/G RATIO (test code = 2234) 1.4 RATIO BILIRUBIN, TOTAL (test code = 2207) 0.2 MG/DL ALKALINE PHOSPHATASE (test code = 2204) 80 U/L AST (test code = 2218) 17 U/L ALT (test code = 2219) 14 U/L Juan SantanaURIC [id number] 00:00:00* Test Item Value Reference Range Interpretation Comme nts URIC ACID (test code = 2233) 6.8 MG/DL Juan SantanaCBC W/AUTO [id number] 00:00:00* Test Item Value Reference Range Interpretation Comme nts WBC (test code = 1001) 14.8 K/UL RBC (test code = 1002) 3.63 M/UL HEMOGLOBIN (test code = 1003) 12.6 G/DL HEMATOCRIT (test code = 1004) 36.1 % MCV (test code = 1005) 99.4 fL MCH (test code = 1006) 34.7 PG MCHC (test code = 1007) 34.9 G/DL RDW (test code = 1038) 12.1 % NEUTROPHILS (test code = 1008) 74.7 % LYMPHOCYTES (test code = 1010) 15.8 % MONOCYTES (test code = 1011) 6.2 % EOSINOPHILS (test code = 1012) 0.5 % BASOPHILS (test code = 1013) 0.3 % IMMATURE GRANULOCYTES (test code = 1036) 2.5 % NUCLEATED RBCS (test code = 1065) 0.0 /100WBC'S PLATELET COUNT (test code = 1015) 291 K/UL ABSOLUTE NEUTROPHILS (test c ode = 1066) 11.05 K/UL ABSOLUTE LYMPHOCYTES (test c ode = 1067) 2.34 K/UL ABSOLUTE MONOCYTES (test cod e = 1068) 0.92 K/UL ABSOLUTE EOSINOPHILS (test c ode = 1040) 0.08 K/UL ABSOLUTE BASOPHILS (test cod e = 1069) 0.04 K/UL ABS IMMATURE GRANULOCYTES (t est code = 1020) 0.37 K/UL ABS NUCLEATED RBCS (test cod e = 51496) 0.00 K/UL Juan SantanaCT/NG, NAAT, [id number] 00:00:00* Test Item Value Reference Range Interpretation Comme nts CHLAMYDIA, NAAT, URINE (test code = 90530) NEGATIVE GONORRHEA, NAAT, URINE (test code = 91474) NEGATIVE Juan SantanaRPR REFLEX TO T. PALLIDUM - [id number] 00:00:00* Test Item Value Reference Range Interpretation Comme nts RPR (test code = 52030) NON-REACTIVE RPR TITER (test code = 3500) NOT INDIC. TITER Juan SantanaHIV 1/2 4TH GEN, RFLX [id number] 00:00:00* Test Item Value Reference Range Interpretation Comme nts HIV 1/2 4TH GEN, RFLX CONF ( test code = 3514) NON-REACTIVE Juan SantanaGLUCOSE, 1 HR, GESTATIONAL SCREEN, 50 GM [id number] 00:00:00 * Test Item Value Reference Range Interpretation Comme nts GLUCOSE 1 HR POST 50 GM (cristhian t code = 2005) 196 MG/DL Juan SantanaTSH REFLEX TO FREE [id number] 00:00:00* Test Item Value Reference Range Interpretation Comme nts TSH REFLEX TO FREE T4 (test code = 2834) 2.740 UIU/ML Juan SantanaCOMPREHENSIVE METABOLIC [id number] 00:00:00* Test Item Value Reference Range Interpretation Comme nts GLUCOSE (test code = 2217) 198 MG/DL BUN (test code = 2208) 12 MG/DL CREATININE (test code = 2214) 1.03 MG/DL eGFR (2020 CKD-EPI) (test co de = 90994) 69 ML/MIN/1.73 CALC BUN/CREAT (test code = 2235) 12 RATIO SODIUM (test code = 2231) 135 MEQ/L POTASSIUM (test code = 2228) 3.9 MEQ/L CHLORIDE (test code = 2215) 100 MEQ/L CARBON DIOXIDE (test code = 2206) 21 MEQ/L CALCIUM (test code = 2209) 9.2 MG/DL PROTEIN, TOTAL (test code = 2229) 6.4 G/DL ALBUMIN (test code = 2201) 3.7 G/DL CALC GLOBULIN (test code = 2240) 2.7 G/DL CALC A/G RATIO (test code = 2234) 1.4 RATIO BILIRUBIN, TOTAL (test code = 2207) 0.2 MG/DL ALKALINE PHOSPHATASE (test code = 2204) 80 U/L AST (test code = 2218) 17 U/L ALT (test code = 2219) 14 U/L Juan SantanaURIC [id number] 00:00:00* Test Item Value Reference Range Interpretation Comme nts URIC ACID (test code = 2233) 6.8 MG/DL Juan SantanaCBC W/AUTO [id number] 00:00:00* Test Item Value Reference Range Interpretation Comme nts WBC (test code = 1001) 14.8 K/UL RBC (test code = 1002) 3.63 M/UL HEMOGLOBIN (test code = 1003) 12.6 G/DL HEMATOCRIT (test code = 1004) 36.1 % MCV (test code = 1005) 99.4 fL MCH (test code = 1006) 34.7 PG MCHC (test code = 1007) 34.9 G/DL RDW (test code = 1038) 12.1 % NEUTROPHILS (test code = 1008) 74.7 % LYMPHOCYTES (test code = 1010) 15.8 % MONOCYTES (test code = 1011) 6.2 % EOSINOPHILS (test code = 1012) 0.5 % BASOPHILS (test code = 1013) 0.3 % IMMATURE GRANULOCYTES (test code = 1036) 2.5 % NUCLEATED RBCS (test code = 1065) 0.0 /100WBC'S PLATELET COUNT (test code = 1015) 291 K/UL ABSOLUTE NEUTROPHILS (test c ode = 1066) 11.05 K/UL ABSOLUTE LYMPHOCYTES (test c ode = 1067) 2.34 K/UL ABSOLUTE MONOCYTES (test cod e = 1068) 0.92 K/UL ABSOLUTE EOSINOPHILS (test c ode = 1040) 0.08 K/UL ABSOLUTE BASOPHILS (test cod e = 1069) 0.04 K/UL ABS IMMATURE GRANULOCYTES (t est code = 1020) 0.37 K/UL ABS NUCLEATED RBCS (test cod e = 03257) 0.00 K/UL Juan SantanaCT/NG, NAAT, [id number] 00:00:00* Test Item Value Reference Range Interpretation Comme nts CHLAMYDIA, NAAT, URINE (test code = 64705) NEGATIVE GONORRHEA, NAAT, URINE (test code = 60661) NEGATIVE Juan SantanaRPR REFLEX TO T. PALLIDUM - [id number] 00:00:00* Test Item Value Reference Range Interpretation Comme nts RPR (test code = 09314) NON-REACTIVE RPR TITER (test code = 3500) NOT INDIC. TITER Juan SantanaHIV 1/2 4TH GEN, RFLX [id number] 00:00:00* Test Item Value Reference Range Interpretation Comme nts HIV 1/2 4TH GEN, RFLX CONF ( test code = 3514) NON-REACTIVE Juan SantanaGLUCOSE, 1 HR, GESTATIONAL SCREEN, 50 GM [id number] 00:00:00 * Test Item Value Reference Range Interpretation Comme nts GLUCOSE 1 HR POST 50 GM (cristhian t code = 2005) 196 MG/DL Juan SantanaTSH REFLEX TO FREE [id number] 00:00:00* Test Item Value Reference Range Interpretation Comme nts TSH REFLEX TO FREE T4 (test code = 2834) 2.740 UIU/ML Juan SantanaCOMPREHENSIVE METABOLIC [id number] 00:00:00* Test Item Value Reference Range Interpretation Comme nts GLUCOSE (test code = 2217) 198 MG/DL BUN (test code = 2208) 12 MG/DL CREATININE (test code = 2214) 1.03 MG/DL eGFR (2020 CKD-EPI) (test co de = 63562) 69 ML/MIN/1.73 CALC BUN/CREAT (test code = 2235) 12 RATIO SODIUM (test code = 2231) 135 MEQ/L POTASSIUM (test code = 2228) 3.9 MEQ/L CHLORIDE (test code = 2215) 100 MEQ/L CARBON DIOXIDE (test code = 2206) 21 MEQ/L CALCIUM (test code = 2209) 9.2 MG/DL PROTEIN, TOTAL (test code = 2229) 6.4 G/DL ALBUMIN (test code = 2201) 3.7 G/DL CALC GLOBULIN (test code = 2240) 2.7 G/DL CALC A/G RATIO (test code = 2234) 1.4 RATIO BILIRUBIN, TOTAL (test code = 2207) 0.2 MG/DL ALKALINE PHOSPHATASE (test code = 2204) 80 U/L AST (test code = 2218) 17 U/L ALT (test code = 2219) 14 U/L Juan SantanaURIC [id number] 00:00:00* Test Item Value Reference Range Interpretation Comme nts URIC ACID (test code = 2233) 6.8 MG/DL Juan Richard MaxCBC W/AUTO [id number] 00:00:00* Test Item Value Reference Range Interpretation Comme nts WBC (test code = 1001) 14.8 K/UL RBC (test code = 1002) 3.63 M/UL HEMOGLOBIN (test code = 1003) 12.6 G/DL HEMATOCRIT (test code = 1004) 36.1 % MCV (test code = 1005) 99.4 fL MCH (test code = 1006) 34.7 PG MCHC (test code = 1007) 34.9 G/DL RDW (test code = 1038) 12.1 % NEUTROPHILS (test code = 1008) 74.7 % LYMPHOCYTES (test code = 1010) 15.8 % MONOCYTES (test code = 1011) 6.2 % EOSINOPHILS (test code = 1012) 0.5 % BASOPHILS (test code = 1013) 0.3 % IMMATURE GRANULOCYTES (test code = 1036) 2.5 % NUCLEATED RBCS (test code = 1065) 0.0 /100WBC'S PLATELET COUNT (test code = 1015) 291 K/UL ABSOLUTE NEUTROPHILS (test c ode = 1066) 11.05 K/UL ABSOLUTE LYMPHOCYTES (test c ode = 1067) 2.34 K/UL ABSOLUTE MONOCYTES (test cod e = 1068) 0.92 K/UL ABSOLUTE EOSINOPHILS (test c ode = 1040) 0.08 K/UL ABSOLUTE BASOPHILS (test cod e = 1069) 0.04 K/UL ABS IMMATURE GRANULOCYTES (t est code = 1020) 0.37 K/UL ABS NUCLEATED RBCS (test cod e = 38310) 0.00 K/UL Juan Richard MaxCT/NG, NAAT, [id number] 00:00:00* Test Item Value Reference Range Interpretation Comme nts CHLAMYDIA, NAAT, URINE (test code = 19317) NEGATIVE GONORRHEA, NAAT, URINE (test code = 77596) NEGATIVE Juan SantanaRPR REFLEX TO T. PALLIDUM - [id number] 00:00:00* Test Item Value Reference Range Interpretation Comme nts RPR (test code = 79794) NON-REACTIVE RPR TITER (test code = 3500) NOT INDIC. TITER Juan Richard AustinHIV 1/2 4TH GEN, RFLX [id number] 00:00:00* Test Item Value Reference Range Interpretation Comme nts HIV 1/2 4TH GEN, RFLX CONF ( test code = 3514) NON-REACTIVE Juan SantanaGLUCOSE, 1 HR, GESTATIONAL SCREEN, 50 GM [id number] 00:00:00 * Test Item Value Reference Range Interpretation Comme nts GLUCOSE 1 HR POST 50 GM (cristhian t code = 2005) 196 MG/DL Juan SantanaTSH REFLEX TO FREE [id number] 00:00:00* Test Item Value Reference Range Interpretation Comme nts TSH REFLEX TO FREE T4 (test code = 2834) 2.740 UIU/ML Juan SantanaCOMPREHENSIVE METABOLIC [id number] 00:00:00* Test Item Value Reference Range Interpretation Comme nts GLUCOSE (test code = 2217) 198 MG/DL BUN (test code = 2208) 12 MG/DL CREATININE (test code = 2214) 1.03 MG/DL eGFR (2020 CKD-EPI) (test co de = 14998) 69 ML/MIN/1.73 CALC BUN/CREAT (test code = 2235) 12 RATIO SODIUM (test code = 2231) 135 MEQ/L POTASSIUM (test code = 2228) 3.9 MEQ/L CHLORIDE (test code = 2215) 100 MEQ/L CARBON DIOXIDE (test code = 2206) 21 MEQ/L CALCIUM (test code = 2209) 9.2 MG/DL PROTEIN, TOTAL (test code = 2229) 6.4 G/DL ALBUMIN (test code = 2201) 3.7 G/DL CALC GLOBULIN (test code = 2240) 2.7 G/DL CALC A/G RATIO (test code = 2234) 1.4 RATIO BILIRUBIN, TOTAL (test code = 2207) 0.2 MG/DL ALKALINE PHOSPHATASE (test code = 2204) 80 U/L AST (test code = 2218) 17 U/L ALT (test code = 2219) 14 U/L Juan SantanaURIC [id number] 00:00:00* Test Item Value Reference Range Interpretation Comme nts URIC ACID (test code = 2233) 6.8 MG/DL Juan SantanaCBC W/AUTO [id number] 00:00:00* Test Item Value Reference Range Interpretation Comme nts WBC (test code = 1001) 14.8 K/UL RBC (test code = 1002) 3.63 M/UL HEMOGLOBIN (test code = 1003) 12.6 G/DL HEMATOCRIT (test code = 1004) 36.1 % MCV (test code = 1005) 99.4 fL MCH (test code = 1006) 34.7 PG MCHC (test code = 1007) 34.9 G/DL RDW (test code = 1038) 12.1 % NEUTROPHILS (test code = 1008) 74.7 % LYMPHOCYTES (test code = 1010) 15.8 % MONOCYTES (test code = 1011) 6.2 % EOSINOPHILS (test code = 1012) 0.5 % BASOPHILS (test code = 1013) 0.3 % IMMATURE GRANULOCYTES (test code = 1036) 2.5 % NUCLEATED RBCS (test code = 1065) 0.0 /100WBC'S PLATELET COUNT (test code = 1015) 291 K/UL ABSOLUTE NEUTROPHILS (test c ode = 1066) 11.05 K/UL ABSOLUTE LYMPHOCYTES (test c ode = 1067) 2.34 K/UL ABSOLUTE MONOCYTES (test cod e = 1068) 0.92 K/UL ABSOLUTE EOSINOPHILS (test c ode = 1040) 0.08 K/UL ABSOLUTE BASOPHILS (test cod e = 1069) 0.04 K/UL ABS IMMATURE GRANULOCYTES (t est code = 1020) 0.37 K/UL ABS NUCLEATED RBCS (test cod e = 39376) 0.00 K/UL Juan SantanaCT/NG, NAAT, [id number] 00:00:00* Test Item Value Reference Range Interpretation Comme nts CHLAMYDIA, NAAT, URINE (test code = 12716) NEGATIVE GONORRHEA, NAAT, URINE (test code = 18483) NEGATIVE Juan SantanaRPR REFLEX TO T. PALLIDUM - [id number] 00:00:00* Test Item Value Reference Range Interpretation Comme nts RPR (test code = 12227) NON-REACTIVE RPR TITER (test code = 3500) NOT INDIC. TITER Juan SantanaHIV 1/2 4TH GEN, RFLX [id number] 00:00:00* Test Item Value Reference Range Interpretation Comme nts HIV 1/2 4TH GEN, RFLX CONF ( test code = 3514) NON-REACTIVE Juan SantanaGLUCOSE, 1 HR, GESTATIONAL SCREEN, 50 GM [id number] 00:00:00 * Test Item Value Reference Range Interpretation Comme nts GLUCOSE 1 HR POST 50 GM (cristhian t code = 2005) 196 MG/DL Juan SantanaTSH REFLEX TO FREE [id number] 00:00:00* Test Item Value Reference Range Interpretation Comme nts TSH REFLEX TO FREE T4 (test code = 2834) 2.740 UIU/ML Juan SantanaCOMPREHENSIVE METABOLIC [id number] 00:00:00* Test Item Value Reference Range Interpretation Comme nts GLUCOSE (test code = 2217) 198 MG/DL BUN (test code = 2208) 12 MG/DL CREATININE (test code = 2214) 1.03 MG/DL eGFR (2020 CKD-EPI) (test co de = 69742) 69 ML/MIN/1.73 CALC BUN/CREAT (test code = 2235) 12 RATIO SODIUM (test code = 2231) 135 MEQ/L POTASSIUM (test code = 2228) 3.9 MEQ/L CHLORIDE (test code = 2215) 100 MEQ/L CARBON DIOXIDE (test code = 2206) 21 MEQ/L CALCIUM (test code = 2209) 9.2 MG/DL PROTEIN, TOTAL (test code = 2229) 6.4 G/DL ALBUMIN (test code = 2201) 3.7 G/DL CALC GLOBULIN (test code = 2240) 2.7 G/DL CALC A/G RATIO (test code = 2234) 1.4 RATIO BILIRUBIN, TOTAL (test code = 2207) 0.2 MG/DL ALKALINE PHOSPHATASE (test code = 2204) 80 U/L AST (test code = 2218) 17 U/L ALT (test code = 2219) 14 U/L Juan SantanaURIC [id number] 00:00:00* Test Item Value Reference Range Interpretation Comme nts URIC ACID (test code = 2233) 6.8 MG/DL Juan SantanaCBC W/AUTO [id number] 00:00:00* Test Item Value Reference Range Interpretation Comme nts WBC (test code = 1001) 14.8 K/UL RBC (test code = 1002) 3.63 M/UL HEMOGLOBIN (test code = 1003) 12.6 G/DL HEMATOCRIT (test code = 1004) 36.1 % MCV (test code = 1005) 99.4 fL MCH (test code = 1006) 34.7 PG MCHC (test code = 1007) 34.9 G/DL RDW (test code = 1038) 12.1 % NEUTROPHILS (test code = 1008) 74.7 % LYMPHOCYTES (test code = 1010) 15.8 % MONOCYTES (test code = 1011) 6.2 % EOSINOPHILS (test code = 1012) 0.5 % BASOPHILS (test code = 1013) 0.3 % IMMATURE GRANULOCYTES (test code = 1036) 2.5 % NUCLEATED RBCS (test code = 1065) 0.0 /100WBC'S PLATELET COUNT (test code = 1015) 291 K/UL ABSOLUTE NEUTROPHILS (test c ode = 1066) 11.05 K/UL ABSOLUTE LYMPHOCYTES (test c ode = 1067) 2.34 K/UL ABSOLUTE MONOCYTES (test cod e = 1068) 0.92 K/UL ABSOLUTE EOSINOPHILS (test c ode = 1040) 0.08 K/UL ABSOLUTE BASOPHILS (test cod e = 1069) 0.04 K/UL ABS IMMATURE GRANULOCYTES (t est code = 1020) 0.37 K/UL ABS NUCLEATED RBCS (test cod e = 75489) 0.00 K/UL Juan Richard MaxCT/NG, NAAT, [id number] 00:00:00* Test Item Value Reference Range Interpretation Comme nts CHLAMYDIA, NAAT, URINE (test code = 85847) NEGATIVE GONORRHEA, NAAT, URINE (test code = 02946) NEGATIVE Juan Richard MaxRPR REFLEX TO T. PALLIDUM - [id number] 00:00:00* Test Item Value Reference Range Interpretation Comme nts RPR (test code = 57826) NON-REACTIVE RPR TITER (test code = 3500) NOT INDIC. TITER Juan Richard AustinHIV 1/2 4TH GEN, RFLX [id number] 00:00:00* Test Item Value Reference Range Interpretation Comme nts HIV 1/2 4TH GEN, RFLX CONF ( test code = 3514) NON-REACTIVE Juan F AustinGLUCOSE, 1 HR, GESTATIONAL SCREEN, 50 GM [id number] 00:00:00 * Test Item Value Reference Range Interpretation Comme nts GLUCOSE 1 HR POST 50 GM (cristhian t code = 2005) 196 MG/DL Juan SantanaTSH REFLEX TO FREE [id number] 00:00:00* Test Item Value Reference Range Interpretation Comme nts TSH REFLEX TO FREE T4 (test code = 2834) 2.740 UIU/ML Juan SantanaCOMPREHENSIVE METABOLIC [id number] 00:00:00* Test Item Value Reference Range Interpretation Comme nts GLUCOSE (test code = 2217) 198 MG/DL BUN (test code = 2208) 12 MG/DL CREATININE (test code = 2214) 1.03 MG/DL eGFR (2020 CKD-EPI) (test co de = 80737) 69 ML/MIN/1.73 CALC BUN/CREAT (test code = 2235) 12 RATIO SODIUM (test code = 2231) 135 MEQ/L POTASSIUM (test code = 2228) 3.9 MEQ/L CHLORIDE (test code = 2215) 100 MEQ/L CARBON DIOXIDE (test code = 2206) 21 MEQ/L CALCIUM (test code = 2209) 9.2 MG/DL PROTEIN, TOTAL (test code = 2229) 6.4 G/DL ALBUMIN (test code = 2201) 3.7 G/DL CALC GLOBULIN (test code = 2240) 2.7 G/DL CALC A/G RATIO (test code = 2234) 1.4 RATIO BILIRUBIN, TOTAL (test code = 2207) 0.2 MG/DL ALKALINE PHOSPHATASE (test code = 2204) 80 U/L AST (test code = 2218) 17 U/L ALT (test code = 2219) 14 U/L Juan SantanaURIC [id number] 00:00:00* Test Item Value Reference Range Interpretation Comme nts URIC ACID (test code = 2233) 6.8 MG/DL Juan SantanaCBC W/AUTO [id number] 00:00:00* Test Item Value Reference Range Interpretation Comme nts WBC (test code = 1001) 14.8 K/UL RBC (test code = 1002) 3.63 M/UL HEMOGLOBIN (test code = 1003) 12.6 G/DL HEMATOCRIT (test code = 1004) 36.1 % MCV (test code = 1005) 99.4 fL MCH (test code = 1006) 34.7 PG MCHC (test code = 1007) 34.9 G/DL RDW (test code = 1038) 12.1 % NEUTROPHILS (test code = 1008) 74.7 % LYMPHOCYTES (test code = 1010) 15.8 % MONOCYTES (test code = 1011) 6.2 % EOSINOPHILS (test code = 1012) 0.5 % BASOPHILS (test code = 1013) 0.3 % IMMATURE GRANULOCYTES (test code = 1036) 2.5 % NUCLEATED RBCS (test code = 1065) 0.0 /100WBC'S PLATELET COUNT (test code = 1015) 291 K/UL ABSOLUTE NEUTROPHILS (test c ode = 1066) 11.05 K/UL ABSOLUTE LYMPHOCYTES (test c ode = 1067) 2.34 K/UL ABSOLUTE MONOCYTES (test cod e = 1068) 0.92 K/UL ABSOLUTE EOSINOPHILS (test c ode = 1040) 0.08 K/UL ABSOLUTE BASOPHILS (test cod e = 1069) 0.04 K/UL ABS IMMATURE GRANULOCYTES (t est code = 1020) 0.37 K/UL ABS NUCLEATED RBCS (test cod e = 74921) 0.00 K/UL Juan SantanaCT/NG, NAAT, [id number] 00:00:00* Test Item Value Reference Range Interpretation Comme nts CHLAMYDIA, NAAT, URINE (test code = 09872) NEGATIVE GONORRHEA, NAAT, URINE (test code = 45127) NEGATIVE Juan SantanaRPR REFLEX TO T. PALLIDUM - [id number] 00:00:00* Test Item Value Reference Range Interpretation Comme nts RPR (test code = 96722) NON-REACTIVE RPR TITER (test code = 3500) NOT INDIC. TITER Juan SantanaHIV 1/2 4TH GEN, RFLX [id number] 00:00:00* Test Item Value Reference Range Interpretation Comme nts HIV 1/2 4TH GEN, RFLX CONF ( test code = 3514) NON-REACTIVE Juan SantanaGLUCOSE, 1 HR, GESTATIONAL SCREEN, 50 GM [id number] 00:00:00 * Test Item Value Reference Range Interpretation Comme nts GLUCOSE 1 HR POST 50 GM (cristhian t code = 2005) 196 MG/DL Juan SantanaTSH REFLEX TO FREE [id number] 00:00:00* Test Item Value Reference Range Interpretation Comme nts TSH REFLEX TO FREE T4 (test code = 2834) 2.740 UIU/ML Juan SantanaCOMPREHENSIVE METABOLIC [id number] 00:00:00* Test Item Value Reference Range Interpretation Comme nts GLUCOSE (test code = 2217) 198 MG/DL BUN (test code = 2208) 12 MG/DL CREATININE (test code = 2214) 1.03 MG/DL eGFR (2020 CKD-EPI) (test co de = 47852) 69 ML/MIN/1.73 CALC BUN/CREAT (test code = 2235) 12 RATIO SODIUM (test code = 2231) 135 MEQ/L POTASSIUM (test code = 2228) 3.9 MEQ/L CHLORIDE (test code = 2215) 100 MEQ/L CARBON DIOXIDE (test code = 2206) 21 MEQ/L CALCIUM (test code = 2209) 9.2 MG/DL PROTEIN, TOTAL (test code = 2229) 6.4 G/DL ALBUMIN (test code = 2201) 3.7 G/DL CALC GLOBULIN (test code = 2240) 2.7 G/DL CALC A/G RATIO (test code = 2234) 1.4 RATIO BILIRUBIN, TOTAL (test code = 2207) 0.2 MG/DL ALKALINE PHOSPHATASE (test code = 2204) 80 U/L AST (test code = 2218) 17 U/L ALT (test code = 2219) 14 U/L Juan SantanaURIC [id number] 00:00:00* Test Item Value Reference Range Interpretation Comme nts URIC ACID (test code = 2233) 6.8 MG/DL Juan SantanaCBC W/AUTO [id number] 00:00:00* Test Item Value Reference Range Interpretation Comme nts WBC (test code = 1001) 14.8 K/UL RBC (test code = 1002) 3.63 M/UL HEMOGLOBIN (test code = 1003) 12.6 G/DL HEMATOCRIT (test code = 1004) 36.1 % MCV (test code = 1005) 99.4 fL MCH (test code = 1006) 34.7 PG MCHC (test code = 1007) 34.9 G/DL RDW (test code = 1038) 12.1 % NEUTROPHILS (test code = 1008) 74.7 % LYMPHOCYTES (test code = 1010) 15.8 % MONOCYTES (test code = 1011) 6.2 % EOSINOPHILS (test code = 1012) 0.5 % BASOPHILS (test code = 1013) 0.3 % IMMATURE GRANULOCYTES (test code = 1036) 2.5 % NUCLEATED RBCS (test code = 1065) 0.0 /100WBC'S PLATELET COUNT (test code = 1015) 291 K/UL ABSOLUTE NEUTROPHILS (test c ode = 1066) 11.05 K/UL ABSOLUTE LYMPHOCYTES (test c ode = 1067) 2.34 K/UL ABSOLUTE MONOCYTES (test cod e = 1068) 0.92 K/UL ABSOLUTE EOSINOPHILS (test c ode = 1040) 0.08 K/UL ABSOLUTE BASOPHILS (test cod e = 1069) 0.04 K/UL ABS IMMATURE GRANULOCYTES (t est code = 1020) 0.37 K/UL ABS NUCLEATED RBCS (test cod e = 55007) 0.00 K/UL Juan Hilary SantanaCT/NG, NAAT, [id number] 00:00:00* Test Item Value Reference Range Interpretation Comme nts CHLAMYDIA, NAAT, URINE (test code = 95223) NEGATIVE GONORRHEA, NAAT, URINE (test code = 22727) NEGATIVE Juan Hilary MaxRPR REFLEX TO T. PALLIDUM - [id number] 00:00:00* Test Item Value Reference Range Interpretation Comme nts RPR (test code = 33982) NON-REACTIVE RPR TITER (test code = 3500) NOT INDIC. TITER Juan Richard AustinHIV 1/2 4TH GEN, RFLX [id number] 00:00:00* Test Item Value Reference Range Interpretation Comme nts HIV 1/2 4TH GEN, RFLX CONF ( test code = 3514) NON-REACTIVE Juan Richard MaxGLUCOSE, 1 HR, GESTATIONAL SCREEN, 50 GM [id number] 00:00:00 * Test Item Value Reference Range Interpretation Comme nts GLUCOSE 1 HR POST 50 GM (cristhian t code = 2005) 196 MG/DL Juan F AustinTSH REFLEX TO FREE [id number] 00:00:00* Test Item Value Reference Range Interpretation Comme nts TSH REFLEX TO FREE T4 (test code = 2834) 2.740 UIU/ML Juan SantanaCOMPREHENSIVE METABOLIC [id number] 00:00:00* Test Item Value Reference Range Interpretation Comme nts GLUCOSE (test code = 2217) 198 MG/DL BUN (test code = 2208) 12 MG/DL CREATININE (test code = 2214) 1.03 MG/DL eGFR (2020 CKD-EPI) (test co de = 15474) 69 ML/MIN/1.73 CALC BUN/CREAT (test code = 2235) 12 RATIO SODIUM (test code = 2231) 135 MEQ/L POTASSIUM (test code = 2228) 3.9 MEQ/L CHLORIDE (test code = 2215) 100 MEQ/L CARBON DIOXIDE (test code = 2206) 21 MEQ/L CALCIUM (test code = 2209) 9.2 MG/DL PROTEIN, TOTAL (test code = 2229) 6.4 G/DL ALBUMIN (test code = 2201) 3.7 G/DL CALC GLOBULIN (test code = 2240) 2.7 G/DL CALC A/G RATIO (test code = 2234) 1.4 RATIO BILIRUBIN, TOTAL (test code = 2207) 0.2 MG/DL ALKALINE PHOSPHATASE (test code = 2204) 80 U/L AST (test code = 2218) 17 U/L ALT (test code = 2219) 14 U/L Juan SantanaURIC [id number] 00:00:00* Test Item Value Reference Range Interpretation Comme nts URIC ACID (test code = 2233) 6.8 MG/DL Juan SantanaCBC W/AUTO [id number] 00:00:00* Test Item Value Reference Range Interpretation Comme nts WBC (test code = 1001) 14.8 K/UL RBC (test code = 1002) 3.63 M/UL HEMOGLOBIN (test code = 1003) 12.6 G/DL HEMATOCRIT (test code = 1004) 36.1 % MCV (test code = 1005) 99.4 fL MCH (test code = 1006) 34.7 PG MCHC (test code = 1007) 34.9 G/DL RDW (test code = 1038) 12.1 % NEUTROPHILS (test code = 1008) 74.7 % LYMPHOCYTES (test code = 1010) 15.8 % MONOCYTES (test code = 1011) 6.2 % EOSINOPHILS (test code = 1012) 0.5 % BASOPHILS (test code = 1013) 0.3 % IMMATURE GRANULOCYTES (test code = 1036) 2.5 % NUCLEATED RBCS (test code = 1065) 0.0 /100WBC'S PLATELET COUNT (test code = 1015) 291 K/UL ABSOLUTE NEUTROPHILS (test c ode = 1066) 11.05 K/UL ABSOLUTE LYMPHOCYTES (test c ode = 1067) 2.34 K/UL ABSOLUTE MONOCYTES (test cod e = 1068) 0.92 K/UL ABSOLUTE EOSINOPHILS (test c ode = 1040) 0.08 K/UL ABSOLUTE BASOPHILS (test cod e = 1069) 0.04 K/UL ABS IMMATURE GRANULOCYTES (t est code = 1020) 0.37 K/UL ABS NUCLEATED RBCS (test cod e = 30110) 0.00 K/UL Juan SantanaCT/NG, NAAT, [id number] 00:00:00* Test Item Value Reference Range Interpretation Comme nts CHLAMYDIA, NAAT, URINE (test code = 69715) NEGATIVE GONORRHEA, NAAT, URINE (test code = 69840) NEGATIVE Juan Richard MaxRPR REFLEX TO T. PALLIDUM - [id number] 00:00:00* Test Item Value Reference Range Interpretation Comme nts RPR (test code = 61849) NON-REACTIVE RPR TITER (test code = 3500) NOT INDIC. TITER Juan Hilary MaxHIV 1/2 4TH GEN, RFLX [id number] 00:00:00* Test Item Value Reference Range Interpretation Comme nts HIV 1/2 4TH GEN, RFLX CONF ( test code = 3514) NON-REACTIVE Juan Hilary MaxGLUCOSE, 1 HR, GESTATIONAL SCREEN, 50 GM [id number] 00:00:00 * Test Item Value Reference Range Interpretation Comme nts GLUCOSE 1 HR POST 50 GM (cristhian t code = 2005) 196 MG/DL Juan SantanaTSH REFLEX TO FREE [id number] 00:00:00* Test Item Value Reference Range Interpretation Comme nts TSH REFLEX TO FREE T4 (test code = 2834) 2.740 UIU/ML Juan SantanaCOMPREHENSIVE METABOLIC [id number] 00:00:00* Test Item Value Reference Range Interpretation Comme nts GLUCOSE (test code = 2217) 198 MG/DL BUN (test code = 2208) 12 MG/DL CREATININE (test code = 2214) 1.03 MG/DL eGFR (2020 CKD-EPI) (test co de = 49859) 69 ML/MIN/1.73 CALC BUN/CREAT (test code = 2235) 12 RATIO SODIUM (test code = 2231) 135 MEQ/L POTASSIUM (test code = 2228) 3.9 MEQ/L CHLORIDE (test code = 2215) 100 MEQ/L CARBON DIOXIDE (test code = 2206) 21 MEQ/L CALCIUM (test code = 2209) 9.2 MG/DL PROTEIN, TOTAL (test code = 2229) 6.4 G/DL ALBUMIN (test code = 2201) 3.7 G/DL CALC GLOBULIN (test code = 2240) 2.7 G/DL CALC A/G RATIO (test code = 2234) 1.4 RATIO BILIRUBIN, TOTAL (test code = 2207) 0.2 MG/DL ALKALINE PHOSPHATASE (test code = 2204) 80 U/L AST (test code = 2218) 17 U/L ALT (test code = 2219) 14 U/L Juan SantanaURIC [id number] 00:00:00* Test Item Value Reference Range Interpretation Comme nts URIC ACID (test code = 2233) 6.8 MG/DL Juan SantanaCBC W/AUTO [id number] 00:00:00* Test Item Value Reference Range Interpretation Comme nts WBC (test code = 1001) 14.8 K/UL RBC (test code = 1002) 3.63 M/UL HEMOGLOBIN (test code = 1003) 12.6 G/DL HEMATOCRIT (test code = 1004) 36.1 % MCV (test code = 1005) 99.4 fL MCH (test code = 1006) 34.7 PG MCHC (test code = 1007) 34.9 G/DL RDW (test code = 1038) 12.1 % NEUTROPHILS (test code = 1008) 74.7 % LYMPHOCYTES (test code = 1010) 15.8 % MONOCYTES (test code = 1011) 6.2 % EOSINOPHILS (test code = 1012) 0.5 % BASOPHILS (test code = 1013) 0.3 % IMMATURE GRANULOCYTES (test code = 1036) 2.5 % NUCLEATED RBCS (test code = 1065) 0.0 /100WBC'S PLATELET COUNT (test code = 1015) 291 K/UL ABSOLUTE NEUTROPHILS (test c ode = 1066) 11.05 K/UL ABSOLUTE LYMPHOCYTES (test c ode = 1067) 2.34 K/UL ABSOLUTE MONOCYTES (test cod e = 1068) 0.92 K/UL ABSOLUTE EOSINOPHILS (test c ode = 1040) 0.08 K/UL ABSOLUTE BASOPHILS (test cod e = 1069) 0.04 K/UL ABS IMMATURE GRANULOCYTES (t est code = 1020) 0.37 K/UL ABS NUCLEATED RBCS (test cod e = 78095) 0.00 K/UL Juan Richard AustinCT/NG, NAAT, [id number] 00:00:00* Test Item Value Reference Range Interpretation Comme nts CHLAMYDIA, NAAT, URINE (test code = 52584) NEGATIVE GONORRHEA, NAAT, URINE (test code = 29735) NEGATIVE Juan Richard MaxRPR REFLEX TO T. PALLIDUM - [id number] 00:00:00* Test Item Value Reference Range Interpretation Comme nts RPR (test code = 81835) NON-REACTIVE RPR TITER (test code = 3500) NOT INDIC. TITER Juan Richard AustinHIV 1/2 4TH GEN, RFLX [id number] 00:00:00* Test Item Value Reference Range Interpretation Comme nts HIV 1/2 4TH GEN, RFLX CONF ( test code = 3514) NON-REACTIVE Juan Richard MaxGLUCOSE, 1 HR, GESTATIONAL SCREEN, 50 GM [id number] 00:00:00 * Test Item Value Reference Range Interpretation Comme nts GLUCOSE 1 HR POST 50 GM (cristhian t code = 2005) 196 MG/DL Juan Richard MaxTSH REFLEX TO FREE [id number] 00:00:00* Test Item Value Reference Range Interpretation Comme nts TSH REFLEX TO FREE T4 (test code = 2834) 2.740 UIU/ML Juan Hilary SantanaCOMPREHENSIVE METABOLIC [id number] 00:00:00* Test Item Value Reference Range Interpretation Comme nts GLUCOSE (test code = 2217) 198 MG/DL BUN (test code = 2208) 12 MG/DL CREATININE (test code = 2214) 1.03 MG/DL eGFR (2020 CKD-EPI) (test co de = 32796) 69 ML/MIN/1.73 CALC BUN/CREAT (test code = 2235) 12 RATIO SODIUM (test code = 2231) 135 MEQ/L POTASSIUM (test code = 2228) 3.9 MEQ/L CHLORIDE (test code = 2215) 100 MEQ/L CARBON DIOXIDE (test code = 2206) 21 MEQ/L CALCIUM (test code = 2209) 9.2 MG/DL PROTEIN, TOTAL (test code = 2229) 6.4 G/DL ALBUMIN (test code = 2201) 3.7 G/DL CALC GLOBULIN (test code = 2240) 2.7 G/DL CALC A/G RATIO (test code = 2234) 1.4 RATIO BILIRUBIN, TOTAL (test code = 2207) 0.2 MG/DL ALKALINE PHOSPHATASE (test code = 2204) 80 U/L AST (test code = 2218) 17 U/L ALT (test code = 2219) 14 U/L Juan SantanaURIC [id number] 00:00:00* Test Item Value Reference Range Interpretation Comme [facility] URIC ACID (test code = 2233) 6.8 MG/DL Juan Richard [facility] ([facility]2024-01-01 00:00:00* Test Item Value Reference Range Interpretation Comme [facility] Report Summary (test code = REPORT_SUMMARY) Negative Alpha-Thalassemia (test code = 24765) Negative Beta-Hemoglobinopathies (cristhian t code = 59210) Negative Anish Disease (test code = 93529) Negative Cystic Fibrosis (test code = 03964) Negative Duchenne/Rodrigez Muscular Dys trophy (test code = 35780) Negative Familial Dysautonomia (test code = 92658) Negative Fragile X Syndrome (test cod e = 88632) Negative Galactosemia (test code = 55049) Negative Gaucher Disease (test code = 08703) Negative Medium Chain Acyl-CoA Dehydr ogenase Deficiency (test code = 65193) Negative Polycystic Kidney Disease, Autosomal Recessive (test code = 61819) Negative Qrgtb-Bvzdr-Cvhyy Syndrome ( test code = 13961) Negative Spinal Muscular Atrophy (cristhian t code = 76258) Negative Raf-Sachs Disease (test code = 14601) Negative Panel Notes (test code = CS_PANEL_NOTES) See Notes Report Note (test code = REPORT_NOTE) See Notes Footnotes (test code = FOOTNOTES) See Notes PDF Report (test code = EMBEDDED_PDF) PDF Juan Richard Austin[facility] ([facility]2024-01-01 00:00:00* Test Item Value Reference Range Interpretation Comme nts Report Summary (test code = REPORT_SUMMARY) Negative Alpha-Thalassemia (test code = 41063) Negative Beta-Hemoglobinopathies (cristhian t code = 42334) Negative Anish Disease (test code = 96445) Negative Cystic Fibrosis (test code = 95309) Negative Duchenne/Rodrigez Muscular Dys trophy (test code = 69622) Negative Familial Dysautonomia (test code = 36287) Negative Fragile X Syndrome (test cod e = 97160) Negative Galactosemia (test code = 66213) Negative Gaucher Disease (test code = 82079) Negative Medium Chain Acyl-CoA Dehydr ogenase Deficiency (test code = 31532) Negative Polycystic Kidney Disease, Autosomal Recessive (test code = 32077) Negative Ebila-Xkboi-Vwhvf Syndrome ( test code = 08166) Negative Spinal Muscular Atrophy (cristhian t code = 90936) Negative Raf-Sachs Disease (test code = 40956) Negative Panel Notes (test code = CS_PANEL_NOTES) See Notes Report Note (test code = REPORT_NOTE) See Notes Footnotes (test code = FOOTNOTES) See Notes PDF Report (test code = EMBEDDED_PDF) PDF [facility]2024-01-01 00:00:00* Test Item Value Reference Range Interpretation Comme nts Report Summary (test code = REPORT_SUMMARY) Negative Alpha-Thalassemia (test code = 23404) Negative Beta-Hemoglobinopathies (cristhian t code = 80428) Negative Anish Disease (test code = 42523) Negative Cystic Fibrosis (test code = 31579) Negative Duchenne/Rodrigez Muscular Dys trophy (test code = 16624) Negative Familial Dysautonomia (test code = 00979) Negative Fragile X Syndrome (test cod e = 85791) Negative Galactosemia (test code = 11718) Negative Gaucher Disease (test code = 36642) Negative Medium Chain Acyl-CoA Dehydr ogenase Deficiency (test code = 66987) Negative Polycystic Kidney Disease, Autosomal Recessive (test code = 98768) Negative Axeyd-Mxngl-Msflw Syndrome ( test code = 63538) Negative Spinal Muscular Atrophy (cristhian t code = 01388) Negative Raf-Sachs Disease (test code = 41129) Negative Panel Notes (test code = CS_PANEL_NOTES) See Notes Report Note (test code = REPORT_NOTE) See Notes Footnotes (test code = FOOTNOTES) See Notes PDF Report (test code = EMBEDDED_PDF) PDF Juan Aguirrezon 14 ([facility])2024-01-01 00:00:00* Test Item Value Reference Range Interpretation Comme nts Report Summary (test code = REPORT_SUMMARY) Negative Alpha-Thalassemia (test code = 97974) Negative Beta-Hemoglobinopathies (cristhian t code = 19880) Negative Anish Disease (test code = 17049) Negative Cystic Fibrosis (test code = 08344) Negative Duchenne/Rodrigez Muscular Dys trophy (test code = 44219) Negative Familial Dysautonomia (test code = 62541) Negative Fragile X Syndrome (test cod e = 13946) Negative Galactosemia (test code = 09540) Negative Gaucher Disease (test code = 87627) Negative Medium Chain Acyl-CoA Dehydr ogenase Deficiency (test code = 72751) Negative Polycystic Kidney Disease, Autosomal Recessive (test code = 26102) Negative Xkyla-Tgbgf-Qnuqh Syndrome ( test code = 52145) Negative Spinal Muscular Atrophy (cristhian t code = 47626) Negative Raf-Sachs Disease (test code = 61712) Negative Panel Notes (test code = CS_PANEL_NOTES) See Notes Report Note (test code = REPORT_NOTE) See Notes Footnotes (test code = FOOTNOTES) See Notes PDF Report (test code = EMBEDDED_PDF) PDF Juan Aguirrezon 14 ([facility])2024-01-01 00:00:00* Test Item Value Reference Range Interpretation Comme nts Report Summary (test code = REPORT_SUMMARY) Negative Alpha-Thalassemia (test code = 51134) Negative Beta-Hemoglobinopathies (cristhian t code = 09531) Negative Anish Disease (test code = 31043) Negative Cystic Fibrosis (test code = 62527) Negative Duchenne/Rodrigez Muscular Dys trophy (test code = 30546) Negative Familial Dysautonomia (test code = 51923) Negative Fragile X Syndrome (test cod e = 29144) Negative Galactosemia (test code = 99483) Negative Gaucher Disease (test code = 36309) Negative Medium Chain Acyl-CoA Dehydr ogenase Deficiency (test code = 26023) Negative Polycystic Kidney Disease, Autosomal Recessive (test code = 58404) Negative Eenrx-Dxjcq-Hndba Syndrome ( test code = 33315) Negative Spinal Muscular Atrophy (cristhian t code = 87965) Negative Raf-Sachs Disease (test code = 90247) Negative Panel Notes (test code = CS_PANEL_NOTES) See Notes Report Note (test code = REPORT_NOTE) See Notes Footnotes (test code = FOOTNOTES) See Notes PDF Report (test code = EMBEDDED_PDF) PDF Juan Richard Shobha 14 ([facility])2024-01-01 00:00:00* Test Item Value Reference Range Interpretation Comme nts Report Summary (test code = REPORT_SUMMARY) Negative Alpha-Thalassemia (test code = 97172) Negative Beta-Hemoglobinopathies (cristhian t code = 39988) Negative Anish Disease (test code = 65751) Negative Cystic Fibrosis (test code = 48832) Negative Duchenne/Rodrigez Muscular Dys trophy (test code = 97328) Negative Familial Dysautonomia (test code = 58266) Negative Fragile X Syndrome (test cod e = 57466) Negative Galactosemia (test code = 35764) Negative Gaucher Disease (test code = 79570) Negative Medium Chain Acyl-CoA Dehydr ogenase Deficiency (test code = 94243) Negative Polycystic Kidney Disease, Autosomal Recessive (test code = 32778) Negative Pguwd-Lbspf-Zhhmj Syndrome ( test code = 37228) Negative Spinal Muscular Atrophy (cristhian t code = 32203) Negative Raf-Sachs Disease (test code = 74971) Negative Panel Notes (test code = CS_PANEL_NOTES) See Notes Report Note (test code = REPORT_NOTE) See Notes Footnotes (test code = FOOTNOTES) See Notes PDF Report (test code = EMBEDDED_PDF) PDF Juan Aguirrezon 14 [facility]2024[facility]01 00:00:00* Test Item Value Reference Range Interpretation Comme nts Report Summary (test code = REPORT_SUMMARY) Negative Alpha-Thalassemia (test code = 06490) Negative Beta-Hemoglobinopathies (cristhian t code = 74425) Negative Anish Disease (test code = 71199) Negative Cystic Fibrosis (test code = 14769) Negative Duchenne/Rodrigez Muscular Dys trophy (test code = 64705) Negative Familial Dysautonomia (test code = 10975) Negative Fragile X Syndrome (test cod e = 14391) Negative Galactosemia (test code = 78640) Negative Gaucher Disease (test code = 25617) Negative Medium Chain Acyl-CoA Dehydr ogenase Deficiency (test code = 13295) Negative Polycystic Kidney Disease, Autosomal Recessive (test code = 53502) Negative Wnpgk-Jbmho-Iuovr Syndrome ( test code = 94115) Negative Spinal Muscular Atrophy (cristhian t code = 84738) Negative Raf-Sachs Disease (test code = 98885) Negative Panel Notes (test code = CS_PANEL_NOTES) See Notes Report Note (test code = REPORT_NOTE) See Notes Footnotes (test code = FOOTNOTES) See Notes PDF Report (test code = EMBEDDED_PDF) PDF Juan Hatfieldn 14 [facility]2024[facility]01 00:00:00* Test Item Value Reference Range Interpretation Comme nts Report Summary (test code = REPORT_SUMMARY) Negative Alpha-Thalassemia (test code = 47711) Negative Beta-Hemoglobinopathies (cristhian t code = 75198) Negative Anish Disease (test code = 57174) Negative Cystic Fibrosis (test code = 86074) Negative Duchenne/Rodrigez Muscular Dys trophy (test code = 66412) Negative Familial Dysautonomia (test code = 70398) Negative Fragile X Syndrome (test cod e = 38482) Negative Galactosemia (test code = 11037) Negative Gaucher Disease (test code = 83798) Negative Medium Chain Acyl-CoA Dehydr ogenase Deficiency (test code = 22453) Negative Polycystic Kidney Disease, Autosomal Recessive (test code = 40914) Negative Crobh-Aixdt-Lcpti Syndrome ( test code = 20596) Negative Spinal Muscular Atrophy (cristhian t code = 90378) Negative Raf-Sachs Disease (test code = 22771) Negative Panel Notes (test code = CS_PANEL_NOTES) See Notes Report Note (test code = REPORT_NOTE) See Notes Footnotes (test code = FOOTNOTES) See Notes PDF Report (test code = EMBEDDED_PDF) PDF Juan Hatfieldn 14 ([facility])2024-01-01 00:00:00* Test Item Value Reference Range Interpretation Comme nts Report Summary (test code = REPORT_SUMMARY) Negative Alpha-Thalassemia (test code = 19181) Negative Beta-Hemoglobinopathies (cristhian t code = 83774) Negative Anish Disease (test code = 00962) Negative Cystic Fibrosis (test code = 28063) Negative Duchenne/Rodrigez Muscular Dys trophy (test code = 03383) Negative Familial Dysautonomia (test code = 01336) Negative Fragile X Syndrome (test cod e = 60188) Negative Galactosemia (test code = 51749) Negative Gaucher Disease (test code = 79004) Negative Medium Chain Acyl-CoA Dehydr ogenase Deficiency (test code = 21347) Negative Polycystic Kidney Disease, Autosomal Recessive (test code = 78222) Negative Kziae-Tdkgf-Tfmko Syndrome ( test code = 69011) Negative Spinal Muscular Atrophy (cristhian t code = 22500) Negative Raf-Sachs Disease (test code = 64541) Negative Panel Notes (test code = CS_PANEL_NOTES) See Notes Report Note (test code = REPORT_NOTE) See Notes Footnotes (test code = FOOTNOTES) See Notes PDF Report (test code = EMBEDDED_PDF) PDF Juan Hatfieldn 14 ([facility])2024-01-01 00:00:00* Test Item Value Reference Range Interpretation Comme nts Report Summary (test code = REPORT_SUMMARY) Negative Alpha-Thalassemia (test code = 71219) Negative Beta-Hemoglobinopathies (cristhian t code = 44845) Negative Anish Disease (test code = 87612) Negative Cystic Fibrosis (test code = 61374) Negative Duchenne/Rodrigez Muscular Dys trophy (test code = 82271) Negative Familial Dysautonomia (test code = 14108) Negative Fragile X Syndrome (test cod e = 27010) Negative Galactosemia (test code = 37899) Negative Gaucher Disease (test code = 06731) Negative Medium Chain Acyl-CoA Dehydr ogenase Deficiency (test code = 39935) Negative Polycystic Kidney Disease, Autosomal Recessive (test code = 45252) Negative Tykvk-Clrph-Oonjw Syndrome ( test code = 86389) Negative Spinal Muscular Atrophy (cristhian t code = 37296) Negative Raf-Sachs Disease (test code = 23462) Negative Panel Notes (test code = CS_PANEL_NOTES) See Notes Report Note (test code = REPORT_NOTE) See Notes Footnotes (test code = FOOTNOTES) See Notes PDF Report (test code = EMBEDDED_PDF) PDF Juan Richard AustinHorizon 14 ([facility])2024-01-01 00:00:00* Test Item Value Reference Range Interpretation Comme nts Report Summary (test code = REPORT_SUMMARY) Negative Alpha-Thalassemia (test code = 39032) Negative Beta-Hemoglobinopathies (cristhian t code = 56057) Negative Anish Disease (test code = 44643) Negative Cystic Fibrosis (test code = 96174) Negative Duchenne/Rodrigez Muscular Dys trophy (test code = 05788) Negative Familial Dysautonomia (test code = 09156) Negative Fragile X Syndrome (test cod e = 28747) Negative Galactosemia (test code = 26681) Negative Gaucher Disease (test code = 78220) Negative Medium Chain Acyl-CoA Dehydr ogenase Deficiency (test code = 50863) Negative Polycystic Kidney Disease, Autosomal Recessive (test code = 81705) Negative Tnorr-Xynin-Zhplj Syndrome ( test code = 28152) Negative Spinal Muscular Atrophy (cristhian t code = 74150) Negative Raf-Sachs Disease (test code = 81771) Negative Panel Notes (test code = CS_PANEL_NOTES) See Notes Report Note (test code = REPORT_NOTE) See Notes Footnotes (test code = FOOTNOTES) See Notes PDF Report (test code = EMBEDDED_PDF) PDF Juan Richard AustinHorizon 14 ([facility])2024-01-01 00:00:00* Test Item Value Reference Range Interpretation Comme nts Report Summary (test code = REPORT_SUMMARY) Negative Alpha-Thalassemia (test code = 17855) Negative Beta-Hemoglobinopathies (cristhian t code = 03191) Negative Anish Disease (test code = 24059) Negative Cystic Fibrosis (test code = 53180) Negative Duchenne/Rodrigez Muscular Dys trophy (test code = 67818) Negative Familial Dysautonomia (test code = 21804) Negative Fragile X Syndrome (test cod e = 13674) Negative Galactosemia (test code = 53957) Negative Gaucher Disease (test code = 69946) Negative Medium Chain Acyl-CoA Dehydr ogenase Deficiency (test code = 08516) Negative Polycystic Kidney Disease, Autosomal Recessive (test code = 92674) Negative Mvguu-Qygsy-Ihodv Syndrome ( test code = 67412) Negative Spinal Muscular Atrophy (cristhian t code = 08532) Negative Raf-Sachs Disease (test code = 09116) Negative Panel Notes (test code = CS_PANEL_NOTES) See Notes Report Note (test code = REPORT_NOTE) See Notes Footnotes (test code = FOOTNOTES) See Notes PDF Report (test code = EMBEDDED_PDF) PDF Juan Aguirrezon 14 ([facility])2024-01-01 00:00:00* Test Item Value Reference Range Interpretation Comme nts Report Summary (test code = REPORT_SUMMARY) Negative Alpha-Thalassemia (test code = 53365) Negative Beta-Hemoglobinopathies (cristhian t code = 97652) Negative Anish Disease (test code = 60044) Negative Cystic Fibrosis (test code = 41975) Negative Duchenne/Rodrigez Muscular Dys trophy (test code = 16201) Negative Familial Dysautonomia (test code = 43414) Negative Fragile X Syndrome (test cod e = 83269) Negative Galactosemia (test code = 89311) Negative Gaucher Disease (test code = 83234) Negative Medium Chain Acyl-CoA Dehydr ogenase Deficiency (test code = 72553) Negative Polycystic Kidney Disease, Autosomal Recessive (test code = 00456) Negative Gvdse-Auavj-Uzvvu Syndrome ( test code = 71574) Negative Spinal Muscular Atrophy (cristhian t code = 00609) Negative Raf-Sachs Disease (test code = 85793) Negative Panel Notes (test code = CS_PANEL_NOTES) See Notes Report Note (test code = REPORT_NOTE) See Notes Footnotes (test code = FOOTNOTES) See Notes PDF Report (test code = EMBEDDED_PDF) PDF Juan Aguirrezon 14 ([facility])2024-01-01 00:00:00* Test Item Value Reference Range Interpretation Comme nts Report Summary (test code = REPORT_SUMMARY) Negative Alpha-Thalassemia (test code = 15090) Negative Beta-Hemoglobinopathies (cristhian t code = 88652) Negative Anish Disease (test code = 39823) Negative Cystic Fibrosis (test code = 02773) Negative Duchenne/Rodrigez Muscular Dys trophy (test code = 95811) Negative Familial Dysautonomia (test code = 21362) Negative Fragile X Syndrome (test cod e = 38725) Negative Galactosemia (test code = 80330) Negative Gaucher Disease (test code = 86706) Negative Medium Chain Acyl-CoA Dehydr ogenase Deficiency (test code = 76299) Negative Polycystic Kidney Disease, Autosomal Recessive (test code = 11971) Negative Wxarr-Psffb-Pyasz Syndrome ( test code = 25625) Negative Spinal Muscular Atrophy (cristhian t code = 61885) Negative Raf-Sachs Disease (test code = 16177) Negative Panel Notes (test code = CS_PANEL_NOTES) See Notes Report Note (test code = REPORT_NOTE) See Notes Footnotes (test code = FOOTNOTES) See Notes PDF Report (test code = EMBEDDED_PDF) PDF Juan SantanaMATERNAL AFP FOR NTD [id number] 09:37:48* Test Item Value Reference Range Interpretation Comme nts INTERPRETATION (test code = 327533) SCREEN NEGATIVE Neural tube defect risk (test code = 34659) 1:6528 Neural tube defect interpretation (test code = 83265) (NOTE) --- NORMAL - NOT AT INCREASED [...] 2657) 164 LBS INITIAL/REPEAT (test code = 811346) INITIAL FAMILY HISTORY OF NTD (test code = 714124) NO INSULIN DEP. DIABETIC (test code = 2659) NO RACE (test code = 2658) SMOKER? (test code = 583329) NO NUMBER OF GESTATIONS (test code = 85006) 1 GESTATIONAL AGE (test code = 2656) 17.4 WEEKS DETERMINED BY: (test code = 2654) US DATE OF SONOGRAM (test code = 47059) 12/03/2023 GESTATIONAL AGE AT SONO (test code = 2653) 15.1 WEEKS ADJUST AFP M.O.M. (test code = 2661) 1.20 M.O.M. AFP (test code = 20084) 44.7 NG/ML UNLESS OTHERWISE INDICATED, ALL TESTING PERFORMED AT [facility] [address] [place] [address] SELLING SPECIALIST: DERRICK FISHER M.D. CLIA NUMBER [id number] [place]. [id number] MATERNAL AFP FOR NTD [id number] 00:00:00* Test Item Value Reference Range Interpretation Comme nts INTERPRETATION (test code = 101599) SCREEN NEGATIVE Neural tube defect risk (cristhian t code = 51458) 1:6528 Neural tube defect interpretation (test code = 86241) (NOTE) DATE OF (test code = 2660) 1980 MATERNAL WEIGHT (test code = 2657) 164 LBS INITIAL/REPEAT (test code = 089145) INITIAL FAMILY HISTORY OF NTD (test code = 366469) NO INSULIN DEP. DIABETIC (test code = 2659) NO RACE (test code = 2658) SMOKER? (test code = 290367) NO NUMBER OF GESTATIONS (test code = 72954) 1 GESTATIONAL AGE (test code = 2656) 17.4 WEEKS DETERMINED BY: (test code = 2654) US DATE OF SONOGRAM (test code = 63035) 12/03/2023 GESTATIONAL AGE AT SONO (cristhian t code = 2653) 15.1 WEEKS ADJUST AFP M.O.M. (test code = 2661) 1.20 M.O.M. AFP (test code = 46103) 44.7 NG/ML Juan SantanaMATERNAL AFP FOR NTD [id number] 00:00:00* Test Item Value Reference Range Interpretation Comme nts INTERPRETATION (test code = 830392) SCREEN NEGATIVE Neural tube defect risk (cristhian t code = 82577) 1:6528 Neural tube defect interpretation (test code = 21144) (NOTE) DATE OF (test code = 2660) 1980 MATERNAL WEIGHT (test code = 2657) 164 LBS INITIAL/REPEAT (test code = 733612) INITIAL FAMILY HISTORY OF NTD (test code = 146155) NO INSULIN DEP. DIABETIC (test code = 2659) NO RACE (test code = 2658) SMOKER? (test code = 321590) NO NUMBER OF GESTATIONS (test code = 07868) 1 GESTATIONAL AGE (test code = 2656) 17.4 WEEKS DETERMINED BY: (test code = 2654) US DATE OF SONOGRAM (test code = 03177) 12/03/2023 GESTATIONAL AGE AT SONO (cristhian t code = 2653) 15.1 WEEKS ADJUST AFP M.O.M. (test code = 2661) 1.20 M.O.M. AFP (test code = 76349) 44.7 NG/ML Juan F AustinMATERNAL AFP FOR NTD [id number] 00:00:00* Test Item Value Reference Range Interpretation Comme nts INTERPRETATION (test code = 173952) SCREEN NEGATIVE Neural tube defect risk (cristhian t code = 32653) 1:6528 Neural tube defect interpretation (test code = 04947) (NOTE) DATE OF (test code = 2660) 1980 MATERNAL WEIGHT (test code = 2657) 164 LBS INITIAL/REPEAT (test code = 081840) INITIAL FAMILY HISTORY OF NTD (test code = 319728) NO INSULIN DEP. DIABETIC (test code = 2659) NO RACE (test code = 2658) SMOKER? (test code = 230838) NO NUMBER OF GESTATIONS (test code = 49228) 1 GESTATIONAL AGE (test code = 2656) 17.4 WEEKS DETERMINED BY: (test code = 2654) US DATE OF SONOGRAM (test code = 07489) 12/03/2023 GESTATIONAL AGE AT SONO (cristhian t code = 2653) 15.1 WEEKS ADJUST AFP M.O.M. (test code = 2661) 1.20 M.O.M. AFP (test code = 24743) 44.7 NG/ML Juan F AustinMATERNAL AFP FOR NTD [id number] 00:00:00* Test Item Value Reference Range Interpretation Comme nts INTERPRETATION (test code = 617945) SCREEN NEGATIVE Neural tube defect risk (cristhian t code = 02459) 1:6528 Neural tube defect interpretation (test code = 72566) (NOTE) DATE OF (test code = 2660) 1980 MATERNAL WEIGHT (test code = 2657) 164 LBS INITIAL/REPEAT (test code = 592196) INITIAL FAMILY HISTORY OF NTD (test code = 633743) NO INSULIN DEP. DIABETIC (test code = 2659) NO RACE (test code = 2658) SMOKER? (test code = 282961) NO NUMBER OF GESTATIONS (test code = 67225) 1 GESTATIONAL AGE (test code = 2656) 17.4 WEEKS DETERMINED BY: (test code = 2654) US DATE OF SONOGRAM (test code = 26037) 12/03/2023 GESTATIONAL AGE AT SONO (cristhian t code = 2653) 15.1 WEEKS ADJUST AFP M.O.M. (test code = 2661) 1.20 M.O.M. AFP (test code = 34547) 44.7 NG/ML Juan Richard AustinMATERNAL AFP FOR NTD [id number] 00:00:00* Test Item Value Reference Range Interpretation Comme nts INTERPRETATION (test code = 216322) SCREEN NEGATIVE Neural tube defect risk (cristhian t code = 67031) 1:6528 Neural tube defect interpretation (test code = 04559) (NOTE) DATE OF (test code = 2660) 1980 MATERNAL WEIGHT (test code = 2657) 164 LBS INITIAL/REPEAT (test code = 302611) INITIAL FAMILY HISTORY OF NTD (test code = 039983) NO INSULIN DEP. DIABETIC (test code = 2659) NO RACE (test code = 2658) SMOKER? (test code = 450586) NO NUMBER OF GESTATIONS (test code = 97749) 1 GESTATIONAL AGE (test code = 2656) 17.4 WEEKS DETERMINED BY: (test code = 2654) US DATE OF SONOGRAM (test code = 81827) 12/03/2023 GESTATIONAL AGE AT SONO (cristhian t code = 2653) 15.1 WEEKS ADJUST AFP M.O.M. (test code = 2661) 1.20 M.O.M. AFP (test code = 92618) 44.7 NG/ML Juan F AustinMATERNAL AFP FOR NTD [id number] 00:00:00* Test Item Value Reference Range Interpretation Comme nts INTERPRETATION (test code = 558238) SCREEN NEGATIVE Neural tube defect risk (cristhian t code = 28885) 1:6528 Neural tube defect interpretation (test code = 06533) (NOTE) DATE OF (test code = 2660) 1980 MATERNAL WEIGHT (test code = 2657) 164 LBS INITIAL/REPEAT (test code = 775427) INITIAL FAMILY HISTORY OF NTD (test code = 969843) NO INSULIN DEP. DIABETIC (test code = 2659) NO RACE (test code = 2658) SMOKER? (test code = 859091) NO NUMBER OF GESTATIONS (test code = 46760) 1 GESTATIONAL AGE (test code = 2656) 17.4 WEEKS DETERMINED BY: (test code = 2654) US DATE OF SONOGRAM (test code = 14654) 12/03/2023 GESTATIONAL AGE AT SONO (cristhian t code = 2653) 15.1 WEEKS ADJUST AFP M.O.M. (test code = 2661) 1.20 M.O.M. AFP (test code = 39670) 44.7 NG/ML Juan SantanaMATERNAL AFP FOR NTD [id number] 00:00:00* Test Item Value Reference Range Interpretation Comme nts INTERPRETATION (test code = 511521) SCREEN NEGATIVE Neural tube defect risk (cristhian t code = 98324) 1:6528 Neural tube defect interpretation (test code = 74921) (NOTE) DATE OF (test code = 2660) 1980 MATERNAL WEIGHT (test code = 2657) 164 LBS INITIAL/REPEAT (test code = 311996) INITIAL FAMILY HISTORY OF NTD (test code = 978156) NO INSULIN DEP. DIABETIC (test code = 2659) NO RACE (test code = 2658) SMOKER? (test code = 038031) NO NUMBER OF GESTATIONS (test code = 30956) 1 GESTATIONAL AGE (test code = 2656) 17.4 WEEKS DETERMINED BY: (test code = 2654) US DATE OF SONOGRAM (test code = 56361) 12/03/2023 GESTATIONAL AGE AT SONO (cristhian t code = 2653) 15.1 WEEKS ADJUST AFP M.O.M. (test code = 2661) 1.20 M.O.M. AFP (test code = 61487) 44.7 NG/ML Juan Richard AustinMATERNAL AFP FOR NTD [id number] 00:00:00* Test Item Value Reference Range Interpretation Comme nts INTERPRETATION (test code = 787154) SCREEN NEGATIVE Neural tube defect risk (cristhian t code = 07677) 1:6528 Neural tube defect interpretation (test code = 40674) (NOTE) DATE OF (test code = 2660) 1980 MATERNAL WEIGHT (test code = 2657) 164 LBS INITIAL/REPEAT (test code = 473219) INITIAL FAMILY HISTORY OF NTD (test code = 278696) NO INSULIN DEP. DIABETIC (test code = 2659) NO RACE (test code = 2658) SMOKER? (test code = 612194) NO NUMBER OF GESTATIONS (test code = 89627) 1 GESTATIONAL AGE (test code = 2656) 17.4 WEEKS DETERMINED BY: (test code = 2654) US DATE OF SONOGRAM (test code = 55307) 12/03/2023 GESTATIONAL AGE AT SONO (cristhian t code = 2653) 15.1 WEEKS ADJUST AFP M.O.M. (test code = 2661) 1.20 M.O.M. AFP (test code = 44333) 44.7 NG/ML Juan Richard AustinMATERNAL AFP FOR NTD [id number] 00:00:00* Test Item Value Reference Range Interpretation Comme nts INTERPRETATION (test code = 786231) SCREEN NEGATIVE Neural tube defect risk (cristhian t code = 43116) 1:6528 Neural tube defect interpretation (test code = 10869) (NOTE) DATE OF (test code = 2660) 1980 MATERNAL WEIGHT (test code = 2657) 164 LBS INITIAL/REPEAT (test code = 398780) INITIAL FAMILY HISTORY OF NTD (test code = 357497) NO INSULIN DEP. DIABETIC (test code = 2659) NO RACE (test code = 2658) SMOKER? (test code = 514845) NO NUMBER OF GESTATIONS (test code = 69388) 1 GESTATIONAL AGE (test code = 2656) 17.4 WEEKS DETERMINED BY: (test code = 2654) US DATE OF SONOGRAM (test code = 05810) 12/03/2023 GESTATIONAL AGE AT SONO (cristhian t code = 2653) 15.1 WEEKS ADJUST AFP M.O.M. (test code = 2661) 1.20 M.O.M. AFP (test code = 51428) 44.7 NG/ML Juan Richard AustinMATERNAL AFP FOR NTD [id number] 00:00:00* Test Item Value Reference Range Interpretation Comme nts INTERPRETATION (test code = 063218) SCREEN NEGATIVE Neural tube defect risk (cristhian t code = 47701) 1:6528 Neural tube defect interpretation (test code = 27629) (NOTE) DATE OF (test code = 2660) 1980 MATERNAL WEIGHT (test code = 2657) 164 LBS INITIAL/REPEAT (test code = 310181) INITIAL FAMILY HISTORY OF NTD (test code = 927396) NO INSULIN DEP. DIABETIC (test code = 2659) NO RACE (test code = 2658) SMOKER? (test code = 412890) NO NUMBER OF GESTATIONS (test code = 79083) 1 GESTATIONAL AGE (test code = 2656) 17.4 WEEKS DETERMINED BY: (test code = 2654) US DATE OF SONOGRAM (test code = 69128) 12/03/2023 GESTATIONAL AGE AT SONO (cristhian t code = 2653) 15.1 WEEKS ADJUST AFP M.O.M. (test code = 2661) 1.20 M.O.M. AFP (test code = 12052) 44.7 NG/ML Juan Richard AustinMATERNAL AFP FOR NTD [id number] 00:00:00* Test Item Value Reference Range Interpretation Comme nts INTERPRETATION (test code = 230122) SCREEN NEGATIVE Neural tube defect risk (cristhian t code = 12134) 1:6528 Neural tube defect interpretation (test code = 35918) (NOTE) DATE OF (test code = 2660) 1980 MATERNAL WEIGHT (test code = 2657) 164 LBS INITIAL/REPEAT (test code = 192284) INITIAL FAMILY HISTORY OF NTD (test code = 897948) NO INSULIN DEP. DIABETIC (test code = 2659) NO RACE (test code = 2658) SMOKER? (test code = 894231) NO NUMBER OF GESTATIONS (test code = 97681) 1 GESTATIONAL AGE (test code = 2656) 17.4 WEEKS DETERMINED BY: (test code = 2654) US DATE OF SONOGRAM (test code = 09162) 12/03/2023 GESTATIONAL AGE AT SONO (cristhian t code = 2653) 15.1 WEEKS ADJUST AFP M.O.M. (test code = 2661) 1.20 M.O.M. AFP (test code = 98465) 44.7 NG/ML Juan Richard AustinMATERNAL AFP FOR NTD [id number] 00:00:00* Test Item Value Reference Range Interpretation Comme nts INTERPRETATION (test code = 888844) SCREEN NEGATIVE Neural tube defect risk (cristhian t code = 34857) 1:6528 Neural tube defect interpretation (test code = 21065) (NOTE) DATE OF (test code = 2660) 1980 MATERNAL WEIGHT (test code = 2657) 164 LBS INITIAL/REPEAT (test code = 978264) INITIAL FAMILY HISTORY OF NTD (test code = 920882) NO INSULIN DEP. DIABETIC (test code = 2659) NO RACE (test code = 2658) SMOKER? (test code = 851556) NO NUMBER OF GESTATIONS (test code = 45505) 1 GESTATIONAL AGE (test code = 2656) 17.4 WEEKS DETERMINED BY: (test code = 2654) US DATE OF SONOGRAM (test code = 76005) 12/03/2023 GESTATIONAL AGE AT SONO (cristhian t code = 2653) 15.1 WEEKS ADJUST AFP M.O.M. (test code = 2661) 1.20 M.O.M. AFP (test code = 22124) 44.7 NG/ML Juan Richard AustinMATERNAL AFP FOR NTD [id number] 00:00:00* Test Item Value Reference Range Interpretation Comme nts INTERPRETATION (test code = 149971) SCREEN NEGATIVE Neural tube defect risk (cristhian t code = 77593) 1:6528 Neural tube defect interpretation (test code = 23802) (NOTE) DATE OF (test code = 2660) 1980 MATERNAL WEIGHT (test code = 2657) 164 LBS INITIAL/REPEAT (test code = 309601) INITIAL FAMILY HISTORY OF NTD (test code = 178618) NO INSULIN DEP. DIABETIC (test code = 2659) NO RACE (test code = 2658) SMOKER? (test code = 467441) NO NUMBER OF GESTATIONS (test code = 16325) 1 GESTATIONAL AGE (test code = 2656) 17.4 WEEKS DETERMINED BY: (test code = 2654) US DATE OF SONOGRAM (test code = 68476) 12/03/2023 GESTATIONAL AGE AT SONO (cristhian t code = 2653) 15.1 WEEKS ADJUST AFP M.O.M. (test code = 2661) 1.20 M.O.M. AFP (test code = 55707) 44.7 NG/ML Juan SantanaMATERNAL AFP FOR NTD [id number] 00:00:00* Test Item Value Reference Range Interpretation Comme nts INTERPRETATION (test code = 630976) SCREEN NEGATIVE Neural tube defect risk (cristhian t code = 89798) 1:6528 Neural tube defect interpretation (test code = 55911) (NOTE) DATE OF (test code = 2660) 1980 MATERNAL WEIGHT (test code = 2657) 164 LBS INITIAL/REPEAT (test code = 361582) INITIAL FAMILY HISTORY OF NTD (test code = 939268) NO INSULIN DEP. DIABETIC (test code = 2659) NO RACE (test code = 2658) SMOKER? (test code = 932299) NO NUMBER OF GESTATIONS (test code = 48483) 1 GESTATIONAL AGE (test code = 2656) 17.4 WEEKS DETERMINED BY: (test code = 2654) US DATE OF SONOGRAM (test code = 66209) 12/03/2023 GESTATIONAL AGE AT SONO (cristhian t code = 2653) 15.1 WEEKS ADJUST AFP M.O.M. (test code = 2661) 1.20 M.O.M. AFP (test code = 37604) 44.7 NG/ML Juan [place], [id number] 08:45:55SPECIMEN NUMBER: [id number] CULTURE, URINE SPECIMEN NUMBER: [id number] SPECIMEN COMMENT: URINE SOURCE: URINE REPORT STATUS: FINAL FINAL REPORT: 11/16/2023 NO GROWTH AFTER 36 HOURS INCUBATIONCOMPREHENSIVE METABOLIC [id number] 05:47:48* Test Item Value Reference Range Interpretation Comme nts GLUCOSE (test code = 2217) 97 MG/DL 70-99 BUN (test code = 2208) 12 MG/DL 6-20 CREATININE (test code = 2213) 0.96 MG/DL 0.60-1.30 eGFR (2020 CKD-EPI) (test co de = 51405) 75 ML/MIN/1.73 >60 CALC BUN/CREAT (test code = 2234) 13 RATIO 6-28 SODIUM (test code = 2230) 136 MEQ/L 133-146 POTASSIUM (test code = 8) 3.9 MEQ/L 3.5-5.4 CHLORIDE (test code = 2214) 100 MEQ/L 95-107 CARBON DIOXIDE (test code = 2206) 22 MEQ/L 19-31 CALCIUM (test code = 2208) 9.3 MG/DL 8.5-10.5 PROTEIN, TOTAL (test code = 2228) 6.7 G/DL 6.1-8.3 ALBUMIN (test code = 2200) 3.9 G/DL 3.5-5.2 CALC GLOBULIN (test code = 0) 2.8 G/DL 1.9-3.7 CALC A/G RATIO (test code = 2233) 1.4 RATIO 1.0-2.6 BILIRUBIN, TOTAL (test code = 2206) 0.2 MG/DL <=1.2 ALKALINE PHOSPHATASE (test code = 2203) 72 U/L 40-113 AST (test code = 221) 25 U/L 9-40 ALT (test code = 2219) 24 U/L 5-40 CBC W/AUTO DIFF WITH [id number] 04:05:16* Test Item Value Reference Range Interpretation [...] = 1065) 0.0 /100 WBC'S See_Comment [Automated [employer] ge] The system which generated this result [...] H ABS NUCLEATED RBCS (test code = 37677) 0.00 K/UL 0.00-0.11 PROTHROMBIN TIME (PT)2023-11-16 03:34:55* Test Item Value Reference Range Interpretation Comme nts PROTHROMBIN TIME (PT) (test code = 1402) 12.8 SECONDS 12.5-14.7 INR (test code = 66286) 0.9 SEE BELOW CURRENT RECOMMENDATIONS ARE FOR AN INR OF 2.0-3.0 FOR ALL PATIENTS ON VITAMIN K ANTAGONISTS, EXCEPT THOSE WITH PROSTHETIC HEART VALVES, FOR WHOM INR OF 2.5-3.5 IS RECOMMENDED. [id number] 03:34:55* Test Item Value Reference Range Interpretation Comme nts PTT (test code = 1403) 31.1 SECONDS 25.2-40.0 UNLESS OTHERWISE INDICATED, ALL TESTING PERFORMED AT [facility] [address] [place] [id number] SELLING SPECIALIST: DERRICK FISHER M.D. CLIA NUMBER [id number] [place]. [id number] CBC W/AUTO [id number] 00:00:00* Test Item Value Reference Range Interpretation [...] ABS NUCLEATED RBCS (test cod e = 92278) 0.00 K/UL Juan SantanaCOMPREHENSIVE METABOLIC [id number] 00:00:00* Test Item Value Reference Range Interpretation Comme nts GLUCOSE (test code = 2217) 97 MG/DL BUN (test code = 2208) 12 MG/DL CREATININE (test code = 2214) 0.96 MG/DL eGFR (2020 CKD-EPI) (test co de = 69938) 75 ML/MIN/1.73 CALC BUN/CREAT (test code = [...] code = 2219) 24 U/L Juan SantanaCULTURE, [id number] 00:00:00* Test Item Value Reference Range Interpretation Comme nts CULTURE, URINE (test code = 60739) SPECIMEN NUMBER: [id number] Juan SantanaPROTHROMBIN TIME (PT)2023-11-16 00:00:00* Test Item Value Reference Range Interpretation Comme nts PROTHROMBIN TIME (PT) (test code = 1402) 12.8 SECONDS INR (test code = 53036) 0.9 Juan [id number] 00:00:00* Test Item Value Reference Range Interpretation Comme nts PTT (test code = 1403) 31.1 SECONDS Juan SantanaCBC W/AUTO [id number] 00:00:00* Test Item Value Reference Range Interpretation [...] ABS NUCLEATED RBCS (test cod e = 62427) 0.00 K/UL Juan SantanaCOMPREHENSIVE METABOLIC [id number] 00:00:00* Test Item Value Reference Range Interpretation Comme nts GLUCOSE (test code = 2217) 97 MG/DL BUN (test code = 2208) 12 MG/DL CREATININE (test code = 2214) 0.96 MG/DL eGFR (2020 CKD-EPI) (test co de = 95253) 75 ML/MIN/1.73 CALC BUN/CREAT (test code = [...] code = 2219) 24 U/L Juan SantanaCULTURE, [id number] 00:00:00* Test Item Value Reference Range Interpretation Comme nts CULTURE, URINE (test code = 50294) SPECIMEN NUMBER: [id number] Juan Richard MaxPROTHROMBIN TIME (PT)2023-11-16 00:00:00* Test Item Value Reference Range Interpretation Comme nts PROTHROMBIN TIME (PT) (test code = 1402) 12.8 SECONDS INR (test code = 61785) 0.9 Juan [id number] 00:00:00* Test Item Value Reference Range Interpretation Comme nts PTT (test code = 1403) 31.1 SECONDS Juan SantanaCBC W/AUTO [id number] 00:00:00* Test Item Value Reference Range Interpretation [...] ABS NUCLEATED RBCS (test cod e = 92125) 0.00 K/UL Juan SantanaCOMPREHENSIVE METABOLIC [id number] 00:00:00* Test Item Value Reference Range Interpretation Comme nts GLUCOSE (test code = 2217) 97 MG/DL BUN (test code = 2208) 12 MG/DL CREATININE (test code = 2214) 0.96 MG/DL eGFR (2020 CKD-EPI) (test co de = 23968) 75 ML/MIN/1.73 CALC BUN/CREAT (test code = [...] code = 2219) 24 U/L Juan SantanaCULTURE, [id number] 00:00:00* Test Item Value Reference Range Interpretation Comme nts CULTURE, URINE (test code = 91113) SPECIMEN NUMBER: [id number] Juan Richard MaxPROTHROMBIN TIME (PT)2023-11-16 00:00:00* Test Item Value Reference Range Interpretation Comme nts PROTHROMBIN TIME (PT) (test code = 1402) 12.8 SECONDS INR (test code = 52502) 0.9 Juan Hilary [id number] 00:00:00* Test Item Value Reference Range Interpretation Comme nts PTT (test code = 1403) 31.1 SECONDS Juan Hilary MaxCBC W/AUTO [id number] 00:00:00* Test Item Value Reference Range Interpretation [...] ABS NUCLEATED RBCS (test cod e = 98913) 0.00 K/UL Juan Richard MaxCULTURE, [id number] 00:00:00* Test Item Value Reference Range Interpretation Comme nts CULTURE, URINE (test code = 11069) SPECIMEN NUMBER: [id number] Juan SantanaCOMPREHENSIVE METABOLIC [id number] 00:00:00* Test Item Value Reference Range Interpretation Comme nts GLUCOSE (test code = 2217) 97 MG/DL BUN (test code = 2208) 12 MG/DL CREATININE (test code = 2214) 0.96 MG/DL eGFR (2020 CKD-EPI) (test co de = 80404) 75 ML/MIN/1.73 CALC BUN/CREAT (test code = [...] 1402) 12.8 SECONDS INR (test code = 16790) 0.9 Juan [id number] 00:00:00* Test Item Value Reference Range Interpretation Comme nts PTT (test code = 1403) 31.1 SECONDS Juan SantanaCBC W/AUTO [id number] 00:00:00* Test Item Value Reference Range Interpretation [...] ABS NUCLEATED RBCS (test cod e = 90429) 0.00 K/UL Juan SantanaCULTURE, [id number] 00:00:00* Test Item Value Reference Range Interpretation Comme nts CULTURE, URINE (test code = 76905) SPECIMEN NUMBER: [id number] Juan SantanaCOMPREHENSIVE METABOLIC [id number] 00:00:00* Test Item Value Reference Range Interpretation Comme nts GLUCOSE (test code = 2217) 97 MG/DL BUN (test code = 2208) 12 MG/DL CREATININE (test code = 2214) 0.96 MG/DL eGFR (2020 CKD-EPI) (test co de = 17733) 75 ML/MIN/1.73 CALC BUN/CREAT (test code = [...] 1402) 12.8 SECONDS INR (test code = 52113) 0.9 Juan [id number] 00:00:00* Test Item Value Reference Range Interpretation Comme nts PTT (test code = 1403) 31.1 SECONDS Juan SantanaCBC W/AUTO [id number] 00:00:00* Test Item Value Reference Range Interpretation [...] ABS NUCLEATED RBCS (test cod e = 05045) 0.00 K/UL Juan SantanaCOMPREHENSIVE METABOLIC [id number] 00:00:00* Test Item Value Reference Range Interpretation Comme nts GLUCOSE (test code = 2217) 97 MG/DL BUN (test code = 2208) 12 MG/DL CREATININE (test code = 2214) 0.96 MG/DL eGFR (2020 CKD-EPI) (test co de = 65703) 75 ML/MIN/1.73 CALC BUN/CREAT (test code = [...] code = 2219) 24 U/L Juan SantanaCULTURE, [id number] 00:00:00* Test Item Value Reference Range Interpretation Comme nts CULTURE, URINE (test code = 43262) SPECIMEN NUMBER: [id number] Juan SantanaPROTHROMBIN TIME (PT)2023-11-16 00:00:00* Test Item Value Reference Range Interpretation Comme nts PROTHROMBIN TIME (PT) (test code = 1402) 12.8 SECONDS INR (test code = 60641) 0.9 Juan [id number] 00:00:00* Test Item Value Reference Range Interpretation Comme nts PTT (test code = 1403) 31.1 SECONDS Juan SantanaCBC W/AUTO [id number] 00:00:00* Test Item Value Reference Range Interpretation [...] ABS NUCLEATED RBCS (test cod e = 19998) 0.00 K/UL Juan SantanaCULTURE, [id number] 00:00:00* Test Item Value Reference Range Interpretation Comme nts CULTURE, URINE (test code = 51481) SPECIMEN NUMBER: [id number] Juan SantanaCOMPREHENSIVE METABOLIC [id number] 00:00:00* Test Item Value Reference Range Interpretation Comme nts GLUCOSE (test code = 2217) 97 MG/DL BUN (test code = 2208) 12 MG/DL CREATININE (test code = 2214) 0.96 MG/DL eGFR (2020 CKD-EPI) (test co de = 35825) 75 ML/MIN/1.73 CALC BUN/CREAT (test code = [...] 1402) 12.8 SECONDS INR (test code = 54550) 0.9 Juan [id number] 00:00:00* Test Item Value Reference Range Interpretation Comme nts PTT (test code = 1403) 31.1 SECONDS Juan SantanaCBC W/AUTO [id number] 00:00:00* Test Item Value Reference Range Interpretation [...] ABS NUCLEATED RBCS (test cod e = 04435) 0.00 K/UL Juan SantanaCOMPREHENSIVE METABOLIC [id number] 00:00:00* Test Item Value Reference Range Interpretation Comme nts GLUCOSE (test code = 2217) 97 MG/DL BUN (test code = 2208) 12 MG/DL CREATININE (test code = 2214) 0.96 MG/DL eGFR (2020 CKD-EPI) (test co de = 73006) 75 ML/MIN/1.73 CALC BUN/CREAT (test code = [...] code = 2219) 24 U/L Juan SantanaCULTURE, [id number] 00:00:00* Test Item Value Reference Range Interpretation Comme nts CULTURE, URINE (test code = 11313) SPECIMEN NUMBER: [id number] Juan Richard MaxPROTHROMBIN TIME (PT)2023-11-16 00:00:00* Test Item Value Reference Range Interpretation Comme nts PROTHROMBIN TIME (PT) (test code = 1402) 12.8 SECONDS INR (test code = 45868) 0.9 Juan [id number] 00:00:00* Test Item Value Reference Range Interpretation Comme nts PTT (test code = 1403) 31.1 SECONDS Juan SantanaCBC W/AUTO [id number] 00:00:00* Test Item Value Reference Range Interpretation [...] ABS NUCLEATED RBCS (test cod e = 63737) 0.00 K/UL Juan SantanaCULTURE, [id number] 00:00:00* Test Item Value Reference Range Interpretation Comme nts CULTURE, URINE (test code = 31958) SPECIMEN NUMBER: [id number] Juan Richard MaxCOMPREHENSIVE METABOLIC [id number] 00:00:00* Test Item Value Reference Range Interpretation Comme nts GLUCOSE (test code = 2217) 97 MG/DL BUN (test code = 2208) 12 MG/DL CREATININE (test code = 2214) 0.96 MG/DL eGFR (2020 CKD-EPI) (test co de = 98847) 75 ML/MIN/1.73 CALC BUN/CREAT (test code = [...] (test code = 2219) 24 U/L Juan F AustinPROTHROMBIN TIME (PT)2023-11-16 00:00:00* Test Item Value Reference Range Interpretation Comme nts PROTHROMBIN TIME (PT) (test code = 1402) 12.8 SECONDS INR (test code = 83010) 0.9 Juan [id number] 00:00:00* Test Item Value Reference Range Interpretation Comme nts PTT (test code = 1403) 31.1 SECONDS Juan SantanaCBC W/AUTO [id number] 00:00:00* Test Item Value Reference Range Interpretation [...] ABS NUCLEATED RBCS (test cod e = 13862) 0.00 K/UL Juan SantanaCOMPREHENSIVE METABOLIC [id number] 00:00:00* Test Item Value Reference Range Interpretation Comme nts GLUCOSE (test code = 2217) 97 MG/DL BUN (test code = 2208) 12 MG/DL CREATININE (test code = 2214) 0.96 MG/DL eGFR (2020 CKD-EPI) (test co de = 98634) 75 ML/MIN/1.73 CALC BUN/CREAT (test code = [...] code = 2219) 24 U/L Juan SantanaCULTURE, [id number] 00:00:00* Test Item Value Reference Range Interpretation Comme nts CULTURE, URINE (test code = 47819) SPECIMEN NUMBER: [id number] Juan SantanaPROTHROMBIN TIME (PT)2023-11-16 00:00:00* Test Item Value Reference Range Interpretation Comme nts PROTHROMBIN TIME (PT) (test code = 1402) 12.8 SECONDS INR (test code = 49347) 0.9 Juan [id number] 00:00:00* Test Item Value Reference Range Interpretation Comme nts PTT (test code = 1403) 31.1 SECONDS Juan SantanaCBC W/AUTO [id number] 00:00:00* Test Item Value Reference Range Interpretation [...] ABS NUCLEATED RBCS (test cod e = 01149) 0.00 K/UL Juan Richard MaxCULTURE, [id number] 00:00:00* Test Item Value Reference Range Interpretation Comme nts CULTURE, URINE (test code = 69975) SPECIMEN NUMBER: [id number] Juan SantanaCOMPREHENSIVE METABOLIC [id number] 00:00:00* Test Item Value Reference Range Interpretation Comme nts GLUCOSE (test code = 2217) 97 MG/DL BUN (test code = 2208) 12 MG/DL CREATININE (test code = 2214) 0.96 MG/DL eGFR (2020 CKD-EPI) (test co de = 91398) 75 ML/MIN/1.73 CALC BUN/CREAT (test code = [...] 1402) 12.8 SECONDS INR (test code = 57326) 0.9 Juan [id number] 00:00:00* Test Item Value Reference Range Interpretation Comme nts PTT (test code = 1403) 31.1 SECONDS Juan SantanaCBC W/AUTO [id number] 00:00:00* Test Item Value Reference Range Interpretation [...] ABS NUCLEATED RBCS (test cod e = 20889) 0.00 K/UL Juan SantanaCULTURE, [id number] 00:00:00* Test Item Value Reference Range Interpretation Comme nts CULTURE, URINE (test code = 96079) SPECIMEN NUMBER: [id number] Juan SantanaCOMPREHENSIVE METABOLIC [id number] 00:00:00* Test Item Value Reference Range Interpretation Comme nts GLUCOSE (test code = 2217) 97 MG/DL BUN (test code = 2208) 12 MG/DL CREATININE (test code = 2214) 0.96 MG/DL eGFR (2020 CKD-EPI) (test co de = 99480) 75 ML/MIN/1.73 CALC BUN/CREAT (test code = [...] 1402) 12.8 SECONDS INR (test code = 52377) 0.9 Juan [id number] 00:00:00* Test Item Value Reference Range Interpretation Comme nts PTT (test code = 1403) 31.1 SECONDS Juan SantanaCBC W/AUTO [id number] 00:00:00* Test Item Value Reference Range Interpretation [...] ABS NUCLEATED RBCS (test cod e = 98909) 0.00 K/UL Juan F MaxCOMPREHENSIVE METABOLIC [id number] 00:00:00* Test Item Value Reference Range Interpretation Comme nts GLUCOSE (test code = 2217) 97 MG/DL BUN (test code = 2208) 12 MG/DL CREATININE (test code = 2214) 0.96 MG/DL eGFR (2020 CKD-EPI) (test co de = 42420) 75 ML/MIN/1.73 CALC BUN/CREAT (test code = [...] code = 2219) 24 U/L Juan SantanaCULTURE, [id number] 00:00:00* Test Item Value Reference Range Interpretation Comme nts CULTURE, URINE (test code = 25006) SPECIMEN NUMBER: [id number] Juan SantanaPROTHROMBIN TIME (PT)2023-11-16 00:00:00* Test Item Value Reference Range Interpretation Comme nts PROTHROMBIN TIME (PT) (test code = 1402) 12.8 SECONDS INR (test code = 37634) 0.9 Juan [id number] 00:00:00* Test Item Value Reference Range Interpretation Comme nts PTT (test code = 1403) 31.1 SECONDS Juan SantanaCBC W/AUTO [id number] 00:00:00* Test Item Value Reference Range Interpretation [...] ABS NUCLEATED RBCS (test cod e = 62985) 0.00 K/UL Juan SantanaCOMPREHENSIVE METABOLIC [id number] 00:00:00* Test Item Value Reference Range Interpretation Comme nts GLUCOSE (test code = 2217) 97 MG/DL BUN (test code = 2208) 12 MG/DL CREATININE (test code = 2214) 0.96 MG/DL eGFR (2020 CKD-EPI) (test co de = 57723) 75 ML/MIN/1.73 CALC BUN/CREAT (test code = [...] code = 2219) 24 U/L Juan SantanaCULTURE, [id number] 00:00:00* Test Item Value Reference Range Interpretation Comme nts CULTURE, URINE (test code = 96678) SPECIMEN NUMBER: [id number] Juan Richard MaxPROTHROMBIN TIME (PT)2023-11-16 00:00:00* Test Item Value Reference Range Interpretation Comme nts PROTHROMBIN TIME (PT) (test code = 1402) 12.8 SECONDS INR (test code = 57547) 0.9 Juan [id number] 00:00:00* Test Item Value Reference Range Interpretation Comme nts PTT (test code = 1403) 31.1 SECONDS Juan SantanaCBC W/AUTO [id number] 00:00:00* Test Item Value Reference Range Interpretation [...] ABS NUCLEATED RBCS (test cod e = 53891) 0.00 K/UL Juan SantanaCOMPREHENSIVE METABOLIC [id number] 00:00:00* Test Item Value Reference Range Interpretation Comme nts GLUCOSE (test code = 2217) 97 MG/DL BUN (test code = 2208) 12 MG/DL CREATININE (test code = 2214) 0.96 MG/DL eGFR (2020 CKD-EPI) (test co de = 95286) 75 ML/MIN/1.73 CALC BUN/CREAT (test code = [...] code = 2219) 24 U/L Juan SantanaCULTURE, [id number] 00:00:00* Test Item Value Reference Range Interpretation Comme [facility] CULTURE, URINE (test code = 57374) SPECIMEN NUMBER: [id number] Juan Richard MaxPROTHROMBIN TIME (PT)2023-11-16 00:00:00* Test Item Value Reference Range Interpretation Comme [facility] PROTHROMBIN TIME (PT) (test code = 1402) 12.8 SECONDS INR (test code = 94349) 0.9 Juan [id number] 00:00:00* Test Item Value Reference Range Interpretation Comme [facility] PTT (test code = 1403) 31.1 SECONDS Juan SantanaPAP TEST, THINPREP, [id number] 18:17:57* Test Item Value Reference Range Interpretation Comme nts SOURCE: (test code = 8001) Cervical/Endo cervical SLIDES: (test code = 8011) 1 LMP: (test code = 8021) 07/22/2023 SPECIMEN ADEQUACY: (test code = 93215) (NOTE) Satisfactory for evaluation. Endocervical cells/transformation zone component present. INTERPRETATION: (test code = 05935) NILM/NO EPITH. ABNORMALITY;S EE BELOW ---- NEGATIVE FOR INTRAEPITHELIAL LESION OR MALIGNANCY (NILM) - CCO & PRESIDENT: (test code = 8101) TEVIN Patel(ASCP) [facility] LOCATION: (test code = 93154) (NOTE) Specimens proces sed and interpreted at [facility], [address] [place] [address], , CLIA: [id number] CPT: (test code = 8140) (NOTE) 22681 UNLESS OTH ERWISE INDICATED, COMPUTER AIDED AND CCO & PRESIDENT SCREENING PERFORMED. The Pap test is a screening test with an inherent, but low probability of error. Your patient should be reminded to consult you immediately if she experiences any suspicious signs or symptoms, regardless of her Pap test result. An alternate report format containing images or consolidated prior Pap history is available as applicable. CT/NG, NAAT, [id number] 18:10:34* Test Item Value Reference Range Interpretation Comme nts CHLAMYDIA, NAAT, THINPREP (test code = 38678) NEGATIVE NEGATIVE A negative resul t does not exclude low level infection, specimensampling error, or collection error. Testing is performed with the [employer] 6800/8800 systems usingreal-time Polymerase Chain Reaction (PCR) method. GONORRHEA, NAAT, THINPREP (test code = 91383) NEGATIVE NEGATIVE A negative resul t does not exclude low level infection, specimensampling error, or collection error. Testing is performed with the [employer] 6800/8800 systems usingreal-time Polymerase Chain Reaction (PCR) method. HPV HIGH RISK WITH GENOTYPE, [id number] 17:22:27* Test Item Value Reference Range Interpretation Comme nts HPV HIGH RISK INTERP (test code = 41114) NEGATIVE NEGATIVE HPV 16 (test code = 84449) NEGATIVE HPV 18 (test code = 23477) NEGATIVE HPV, HR, OTHER GENOTYPES (test code = 72252) NEGATIVE Testing methodol ogy is real-time PCR [...] TESTING PERFORMED AT [facility] [address] [place] [address] SELLING SPECIALIST: DERRICK FISHER M.D. CLIA NUMBER [id number] [place]. [id number] VAGINAL PATHOGENS DNA [id number] 12:45:34* Test Item Value Reference Range Interpretation Comme nts MARLENE SPECIES (test code = 69821) NEGATIVE NEGATIVE G. VAGINALIS (test code = 86393) NEGATIVE NEGATIVE T. VAGINALIS (test code = 94694) NEGATIVE NEGATIVE Note: The [facility] VPIII Microbial Identification Testis a DNA probe test intended for use in the detectionand identification of Marlene species, Gardnerellavaginalis and Trichomonas vaginalis nucleic acid. UNLESS OTHERWISE INDICATED, ALL TESTING PERFORMED AT [facility]. [address] [place] [address] SELLING SPECIALIST: DERRICK FISHER M.D. CLIA NUMBER [id number] [place]. [id number] VAGINAL PATHOGENS DNA [id number] 00:00:00* Test Item Value Reference Range Interpretation Comme nts MARLENE SPECIES (test code = 92180) NEGATIVE G. VAGINALIS (test code = 46127) NEGATIVE T. VAGINALIS (test code = 24603) NEGATIVE [facility], THINPREP, [id number] 00:00:00* Test Item Value Reference Range Interpretation Comme nts SOURCE: (test code = 8001) Cervical/Endocervical SLIDES: (test code = 8011) 1 LMP: (test code = 8021) 07/22/2023 SPECIMEN ADEQUACY: (test code = 97803) (NOTE) INTERPRETATION: (test code = 19996) NILM/NO EPITH. ABNORMALITY;SEE BELOW CCO & PRESIDENT: (test code = 8101) TEVIN Patel(ASCP)[facility] LOCATION: (test code = 60066) (NOTE) CPT: (test code = 8140) (NOTE) Juan SantanaHPV HIGH RISK WITH GENOTYPE, [id number] 00:00:00* Test Item Value Reference Range Interpretation Comme nts HPV HIGH RISK INTERP (test c ode = 02060) NEGATIVE HPV 16 (test code = 25436) NEGATIVE HPV 18 (test code = 33115) NEGATIVE HPV, HR, OTHER GENOTYPES (te st code = 31135) NEGATIVE Juan SantanaGC AND CHLAMYDIA AMPLIFIED, [id number] 00:00:00* Test Item Value Reference Range Interpretation Comme nts CHLAMYDIA, NAAT, THINPREP (t est code = 66776) NEGATIVE GONORRHEA, NAAT, THINPREP (t est code = 98691) NEGATIVE Juan SantanaVAGINAL PATHOGENS DNA [id number] 00:00:00* Test Item Value Reference Range Interpretation Comme nts MARLENE SPECIES (test code = 67402) NEGATIVE G. VAGINALIS (test code = 72059) NEGATIVE T. VAGINALIS (test code = 27302) NEGATIVE Juan SantanaPAP TEST, THINPREP, [id number] 00:00:00* Test Item Value Reference Range Interpretation Comme nts SOURCE: (test code = 8001) Cervical/Endocervical SLIDES: (test code = 8011) 1 LMP: (test code = 8021) 07/22/2023 SPECIMEN ADEQUACY: (test code = 76920) (NOTE) INTERPRETATION: (test code = 31469) NILM/NO EPITH. ABNORMALITY;SEE BELOW CCO & PRESIDENT: (test code = 8101) TEVIN Patel(ASCP)IAC LOCATION: (test code = 09138) (NOTE) CPT: (test code = 8140) (NOTE) Juan SantanaHPV HIGH RISK WITH GENOTYPE, [id number] 00:00:00* Test Item Value Reference Range Interpretation Comme nts HPV HIGH RISK INTERP (test c ode = 34113) NEGATIVE HPV 16 (test code = 38155) NEGATIVE HPV 18 (test code = 13300) NEGATIVE HPV, HR, OTHER GENOTYPES (te st code = 02622) NEGATIVE Juan SantanaPAP TEST, THINPREP, [id number] 00:00:00* Test Item Value Reference Range Interpretation Comme nts SOURCE: (test code = 8001) Cervical/Endocervical SLIDES: (test code = 8011) 1 LMP: (test code = 8021) 07/22/2023 SPECIMEN ADEQUACY: (test code = 97365) (NOTE) INTERPRETATION: (test code = 05315) NILM/NO EPITH. ABNORMALITY;SEE BELOW CCO & PRESIDENT: (test code = 8101) TEVIN Patel(ASCP)IAC LOCATION: (test code = 39479) (NOTE) CPT: (test code = 8140) (NOTE) Juan SantanaVAGINAL PATHOGENS DNA [id number] 00:00:00* Test Item Value Reference Range Interpretation Comme nts MARLENE SPECIES (test code = 94845) NEGATIVE G. VAGINALIS (test code = ) NEGATIVE T. VAGINALIS (test code = ) NEGATIVE Juan SantanaGC AND CHLAMYDIA AMPLIFIED, [id number] 00:00:00* Test Item Value Reference Range Interpretation Comme nts CHLAMYDIA, NAAT, THINPREP (t est code = 31540) NEGATIVE GONORRHEA, NAAT, THINPREP (t est code = 35760) NEGATIVE Juan SantanaPAP TEST, THINPREP, [id number] 00:00:00* Test Item Value Reference Range Interpretation Comme nts SOURCE: (test code = 8001) Cervical/Endocervical SLIDES: (test code = 8011) 1 LMP: (test code = 8021) 07/22/2023 SPECIMEN ADEQUACY: (test code = 08204) (NOTE) INTERPRETATION: (test code = 57630) NILM/NO EPITH. ABNORMALITY;SEE BELOW CCO & PRESIDENT: (test code = 8101) TEVIN Patel(ASCP)IAC LOCATION: (test code = 07513) (NOTE) CPT: (test code = 8140) (NOTE) Juan SantanaHPV HIGH RISK WITH GENOTYPE, [id number] 00:00:00* Test Item Value Reference Range Interpretation Comme nts HPV HIGH RISK INTERP (test c ode = 62827) NEGATIVE HPV 16 (test code = 65666) NEGATIVE HPV 18 (test code = 59149) NEGATIVE HPV, HR, OTHER GENOTYPES (te st code = 95120) NEGATIVE Juan Richard AustinGC AND CHLAMYDIA AMPLIFIED, [id number] 00:00:00* Test Item Value Reference Range Interpretation Comme nts CHLAMYDIA, NAAT, THINPREP (t est code = 67599) NEGATIVE GONORRHEA, NAAT, THINPREP (t est code = 20986) NEGATIVE Juan Richard AustinHPV HIGH RISK WITH GENOTYPE, [id number] 00:00:00* Test Item Value Reference Range Interpretation Comme nts HPV HIGH RISK INTERP (test c ode = 75126) NEGATIVE HPV 16 (test code = 34982) NEGATIVE HPV 18 (test code = 29214) NEGATIVE HPV, HR, OTHER GENOTYPES (te st code = 35387) NEGATIVE Juan Richard AustinVAGINAL PATHOGENS DNA [id number] 00:00:00* Test Item Value Reference Range Interpretation Comme nts MARLENE SPECIES (test code = 66358) NEGATIVE G. VAGINALIS (test code = 16296) NEGATIVE T. VAGINALIS (test code = 06519) NEGATIVE Juan SantanaPAP TEST, THINPREP, [id number] 00:00:00* Test Item Value Reference Range Interpretation Comme nts SOURCE: (test code = 8001) Cervical/Endocervical SLIDES: (test code = 8011) 1 LMP: (test code = 8021) 07/22/2023 SPECIMEN ADEQUACY: (test code = 33596) (NOTE) INTERPRETATION: (test code = 73946) NILM/NO EPITH. ABNORMALITY;SEE BELOW CCO & PRESIDENT: (test code = 8101) TEVIN Patel(ASCP)IAC LOCATION: (test code = 71441) (NOTE) CPT: (test code = 8140) (NOTE) Juan Richard AustinHPV HIGH RISK WITH GENOTYPE, [id number] 00:00:00* Test Item Value Reference Range Interpretation Comme nts HPV HIGH RISK INTERP (test c ode = 16868) NEGATIVE HPV 16 (test code = 41687) NEGATIVE HPV 18 (test code = 16374) NEGATIVE HPV, HR, OTHER GENOTYPES (te st code = 47556) NEGATIVE Juan Richard AustinVAGINAL PATHOGENS DNA [id number] 00:00:00* Test Item Value Reference Range Interpretation Comme nts MARLENE SPECIES (test code = 17339) NEGATIVE G. VAGINALIS (test code = 98928) NEGATIVE T. VAGINALIS (test code = 08348) NEGATIVE Juan Richard AustinGC AND CHLAMYDIA AMPLIFIED, [id number] 00:00:00* Test Item Value Reference Range Interpretation Comme nts CHLAMYDIA, NAAT, THINPREP (t est code = 99940) NEGATIVE GONORRHEA, NAAT, THINPREP (t est code = 97543) NEGATIVE Juan Richard AustinPAP TEST, THINPREP, [id number] 00:00:00* Test Item Value Reference Range Interpretation Comme nts SOURCE: (test code = 8001) Cervical/Endocervical SLIDES: (test code = 8011) 1 LMP: (test code = 8021) 07/22/2023 SPECIMEN ADEQUACY: (test code = 81508) (NOTE) INTERPRETATION: (test code = 49093) NILM/NO EPITH. ABNORMALITY;SEE BELOW CCO & PRESIDENT: (test code = 8101) TEVIN Patel(ASCP)IAC LOCATION: (test code = 98085) (NOTE) CPT: (test code = 8140) (NOTE) Juan Richard AustinHPV HIGH RISK WITH GENOTYPE, [id number] 00:00:00* Test Item Value Reference Range Interpretation Comme nts HPV HIGH RISK INTERP (test c ode = 97735) NEGATIVE HPV 16 (test code = 04050) NEGATIVE HPV 18 (test code = 36437) NEGATIVE HPV, HR, OTHER GENOTYPES (te st code = 40528) NEGATIVE Juan Richard AustinGC AND CHLAMYDIA AMPLIFIED, [id number] 00:00:00* Test Item Value Reference Range Interpretation Comme nts CHLAMYDIA, NAAT, THINPREP (t est code = 51133) NEGATIVE GONORRHEA, NAAT, THINPREP (t est code = 49038) NEGATIVE Juan Richard AustinVAGINAL PATHOGENS DNA [id number] 00:00:00* Test Item Value Reference Range Interpretation Comme nts MARLENE SPECIES (test code = 03625) NEGATIVE G. VAGINALIS (test code = 58724) NEGATIVE T. VAGINALIS (test code = 96827) NEGATIVE Juan Richard AustinPAP TEST, THINPREP, [id number] 00:00:00* Test Item Value Reference Range Interpretation Comme nts SOURCE: (test code = 8001) Cervical/Endocervical SLIDES: (test code = 8011) 1 LMP: (test code = 8021) 07/22/2023 SPECIMEN ADEQUACY: (test code = 07181) (NOTE) INTERPRETATION: (test code = 91368) NILM/NO EPITH. ABNORMALITY;SEE BELOW CCO & PRESIDENT: (test code = 8101) [facility]The [facility] CountyHI(ASCP)IAC LOCATION: (test code = 25728) (NOTE) CPT: (test code = 8140) (NOTE) Juan Richard AustinHPV HIGH RISK WITH GENOTYPE, [id number] 00:00:00* Test Item Value Reference Range Interpretation Comme nts HPV HIGH RISK INTERP (test c ode = 73280) NEGATIVE HPV 16 (test code = 74230) NEGATIVE HPV 18 (test code = 47746) NEGATIVE HPV, HR, OTHER GENOTYPES (te st code = 16983) NEGATIVE Juan SantanaVAGINAL PATHOGENS DNA [id number] 00:00:00* Test Item Value Reference Range Interpretation Comme nts MARLENE SPECIES (test code = 55113) NEGATIVE G. VAGINALIS (test code = 80727) NEGATIVE T. VAGINALIS (test code = 21777) NEGATIVE Juan SantanaGC AND CHLAMYDIA AMPLIFIED, [id number] 00:00:00* Test Item Value Reference Range Interpretation Comme nts CHLAMYDIA, NAAT, THINPREP (t est code = 57188) NEGATIVE GONORRHEA, NAAT, THINPREP (t est code = 90913) NEGATIVE Juan SantanaPAP TEST, THINPREP, [id number] 00:00:00* Test Item Value Reference Range Interpretation Comme nts SOURCE: (test code = 8001) Cervical/Endocervical SLIDES: (test code = 8011) 1 LMP: (test code = 8021) 07/22/2023 SPECIMEN ADEQUACY: (test code = 37103) (NOTE) INTERPRETATION: (test code = 86900) NILM/NO EPITH. ABNORMALITY;SEE BELOW CCO & PRESIDENT: (test code = 8101) TEVIN Patel(ASCP)IAC LOCATION: (test code = 42824) (NOTE) CPT: (test code = 8140) (NOTE) Juan SantanaHPV HIGH RISK WITH GENOTYPE, [id number] 00:00:00* Test Item Value Reference Range Interpretation Comme nts HPV HIGH RISK INTERP (test c ode = 21187) NEGATIVE HPV 16 (test code = 56525) NEGATIVE HPV 18 (test code = 49112) NEGATIVE HPV, HR, OTHER GENOTYPES (te st code = 98789) NEGATIVE Juan Richard AustinVAGINAL PATHOGENS DNA [id number] 00:00:00* Test Item Value Reference Range Interpretation Comme nts MARLENE SPECIES (test code = ) NEGATIVE G. VAGINALIS (test code = ) NEGATIVE T. VAGINALIS (test code = ) NEGATIVE Juan Richard AustinGC AND CHLAMYDIA AMPLIFIED, [id number] 00:00:00* Test Item Value Reference Range Interpretation Comme nts CHLAMYDIA, NAAT, THINPREP (t est code = 71246) NEGATIVE GONORRHEA, NAAT, THINPREP (t est code = 65182) NEGATIVE Juan Richard AustinPAP TEST, THINPREP, [id number] 00:00:00* Test Item Value Reference Range Interpretation Comme nts SOURCE: (test code = 8001) Cervical/Endocervical SLIDES: (test code = 8011) 1 LMP: (test code = 8021) 07/22/2023 SPECIMEN ADEQUACY: (test code = 67531) (NOTE) INTERPRETATION: (test code = 53681) NILM/NO EPITH. ABNORMALITY;SEE BELOW CCO & PRESIDENT: (test code = 8101) TEVIN Patel(ASCP)IAC LOCATION: (test code = 43467) (NOTE) CPT: (test code = 8140) (NOTE) Juan Richard AustinHPV HIGH RISK WITH GENOTYPE, [id number] 00:00:00* Test Item Value Reference Range Interpretation Comme nts HPV HIGH RISK INTERP (test c ode = 48892) NEGATIVE HPV 16 (test code = 37198) NEGATIVE HPV 18 (test code = 98678) NEGATIVE HPV, HR, OTHER GENOTYPES (te st code = 03279) NEGATIVE Juan Richard AustinGC AND CHLAMYDIA AMPLIFIED, [id number] 00:00:00* Test Item Value Reference Range Interpretation Comme nts CHLAMYDIA, NAAT, THINPREP (t est code = 78831) NEGATIVE GONORRHEA, NAAT, THINPREP (t est code = 94538) NEGATIVE Juan Richard AustinVAGINAL PATHOGENS DNA [id number] 00:00:00* Test Item Value Reference Range Interpretation Comme nts MARLENE SPECIES (test code = ) NEGATIVE G. VAGINALIS (test code = ) NEGATIVE T. VAGINALIS (test code = 11457) NEGATIVE Juan Richard AustinPAP TEST, THINPREP, [id number] 00:00:00* Test Item Value Reference Range Interpretation Comme nts SOURCE: (test code = 8001) Cervical/Endocervical SLIDES: (test code = 8011) 1 LMP: (test code = 8021) 07/22/2023 SPECIMEN ADEQUACY: (test code = 85431) (NOTE) INTERPRETATION: (test code = 64996) NILM/NO EPITH. ABNORMALITY;SEE BELOW CCO & PRESIDENT: (test code = 8101) TEVIN Patel(ASCP)IAC LOCATION: (test code = 87958) (NOTE) CPT: (test code = 8140) (NOTE) Juan Richard AustinHPV HIGH RISK WITH GENOTYPE, [id number] 00:00:00* Test Item Value Reference Range Interpretation Comme nts HPV HIGH RISK INTERP (test c ode = 98763) NEGATIVE HPV 16 (test code = 28374) NEGATIVE HPV 18 (test code = 36960) NEGATIVE HPV, HR, OTHER GENOTYPES (te st code = 66785) NEGATIVE Juan Richard AustinVAGINAL PATHOGENS DNA [id number] 00:00:00* Test Item Value Reference Range Interpretation Comme nts MARLENE SPECIES (test code = ) NEGATIVE G. VAGINALIS (test code = 99962) NEGATIVE T. VAGINALIS (test code = 44710) NEGATIVE Juan Richard AustinGC AND CHLAMYDIA AMPLIFIED, [id number] 00:00:00* Test Item Value Reference Range Interpretation Comme nts CHLAMYDIA, NAAT, THINPREP (t est code = 53393) NEGATIVE GONORRHEA, NAAT, THINPREP (t est code = 95869) NEGATIVE Juan Richard AustinPAP TEST, THINPREP, [id number] 00:00:00* Test Item Value Reference Range Interpretation Comme nts SOURCE: (test code = 8001) Cervical/Endocervical SLIDES: (test code = 8011) 1 LMP: (test code = 8021) 07/22/2023 SPECIMEN ADEQUACY: (test code = 88728) (NOTE) INTERPRETATION: (test code = 29007) NILM/NO EPITH. ABNORMALITY;SEE BELOW CCO & PRESIDENT: (test code = 8101) TEVIN Patel(ASCP)IAC LOCATION: (test code = 96251) (NOTE) CPT: (test code = 8140) (NOTE) Juan Richard AustinHPV HIGH RISK WITH GENOTYPE, [id number] 00:00:00* Test Item Value Reference Range Interpretation Comme nts HPV HIGH RISK INTERP (test c ode = 11195) NEGATIVE HPV 16 (test code = 62677) NEGATIVE HPV 18 (test code = 10377) NEGATIVE HPV, HR, OTHER GENOTYPES (te st code = 25177) NEGATIVE Juan SantanaVAGINAL PATHOGENS DNA [id number] 00:00:00* Test Item Value Reference Range Interpretation Comme nts MARLENE SPECIES (test code = 38059) NEGATIVE G. VAGINALIS (test code = 81295) NEGATIVE T. VAGINALIS (test code = 10530) NEGATIVE Juan SantanaGC AND CHLAMYDIA AMPLIFIED, [id number] 00:00:00* Test Item Value Reference Range Interpretation Comme nts CHLAMYDIA, NAAT, THINPREP (t est code = 46230) NEGATIVE GONORRHEA, NAAT, THINPREP (t est code = 87925) NEGATIVE Juan SantanaPAP TEST, THINPREP, [id number] 00:00:00* Test Item Value Reference Range Interpretation Comme nts SOURCE: (test code = 8001) Cervical/Endocervical SLIDES: (test code = 8011) 1 LMP: (test code = 8021) 07/22/2023 SPECIMEN ADEQUACY: (test code = 56703) (NOTE) INTERPRETATION: (test code = 49224) NILM/NO EPITH. ABNORMALITY;SEE BELOW CCO & PRESIDENT: (test code = 8101) TEVIN Patel(ASCP)IAC LOCATION: (test code = 98016) (NOTE) CPT: (test code = 8140) (NOTE) Juan Richard AustinHPV HIGH RISK WITH GENOTYPE, [id number] 00:00:00* Test Item Value Reference Range Interpretation Comme nts HPV HIGH RISK INTERP (test c ode = 77711) NEGATIVE HPV 16 (test code = 11646) NEGATIVE HPV 18 (test code = 88393) NEGATIVE HPV, HR, OTHER GENOTYPES (te st code = 53674) NEGATIVE Juan Richard AustinVAGINAL PATHOGENS DNA [id number] 00:00:00* Test Item Value Reference Range Interpretation Comme nts MARLENE SPECIES (test code = 74729) NEGATIVE G. VAGINALIS (test code = ) NEGATIVE T. VAGINALIS (test code = ) NEGATIVE uJan Richard AustinGC AND CHLAMYDIA AMPLIFIED, [id number] 00:00:00* Test Item Value Reference Range Interpretation Comme nts CHLAMYDIA, NAAT, THINPREP (t est code = 76499) NEGATIVE GONORRHEA, NAAT, THINPREP (t est code = 88700) NEGATIVE Juan Richard AustinPAP TEST, THINPREP, [id number] 00:00:00* Test Item Value Reference Range Interpretation Comme nts SOURCE: (test code = 8001) Cervical/Endocervical SLIDES: (test code = 8011) 1 LMP: (test code = 8021) 07/22/2023 SPECIMEN ADEQUACY: (test code = 59098) (NOTE) INTERPRETATION: (test code = 56092) NILM/NO EPITH. ABNORMALITY;SEE BELOW CCO & PRESIDENT: (test code = 8101) TEVIN Patel(ASCP)IAC LOCATION: (test code = 35130) (NOTE) CPT: (test code = 8140) (NOTE) Juan Richard AustinHPV HIGH RISK WITH GENOTYPE, [id number] 00:00:00* Test Item Value Reference Range Interpretation Comme nts HPV HIGH RISK INTERP (test c ode = 51880) NEGATIVE HPV 16 (test code = 83765) NEGATIVE HPV 18 (test code = 09706) NEGATIVE HPV, HR, OTHER GENOTYPES (te st code = 36060) NEGATIVE Juan Richard AustinGC AND CHLAMYDIA AMPLIFIED, [id number] 00:00:00* Test Item Value Reference Range Interpretation Comme nts CHLAMYDIA, NAAT, THINPREP (t est code = 46385) NEGATIVE GONORRHEA, NAAT, THINPREP (t est code = 72422) NEGATIVE Juan Richard AustinVAGINAL PATHOGENS DNA [id number] 00:00:00* Test Item Value Reference Range Interpretation Comme nts MARLENE SPECIES (test code = ) NEGATIVE G. VAGINALIS (test code = ) NEGATIVE T. VAGINALIS (test code = ) NEGATIVE Juan SantanaPAP TEST, THINPREP, [id number] 00:00:00* Test Item Value Reference Range Interpretation Comme nts SOURCE: (test code = 8001) Cervical/Endocervical SLIDES: (test code = 8011) 1 LMP: (test code = 8021) 07/22/2023 SPECIMEN ADEQUACY: (test code = 99445) (NOTE) INTERPRETATION: (test code = 70864) NILM/NO EPITH. ABNORMALITY;SEE BELOW CCO & PRESIDENT: (test code = 8101) TEVIN Patel(ASCP)IAC LOCATION: (test code = 88550) (NOTE) CPT: (test code = 8140) (NOTE) Juan Richard MaxHPV HIGH RISK WITH GENOTYPE, [id number] 00:00:00* Test Item Value Reference Range Interpretation Comme nts HPV HIGH RISK INTERP (test c ode = 42787) NEGATIVE HPV 16 (test code = 64626) NEGATIVE HPV 18 (test code = 30885) NEGATIVE HPV, HR, OTHER GENOTYPES (te st code = 00258) NEGATIVE Juan SantanaGC AND CHLAMYDIA AMPLIFIED, [id number] 00:00:00* Test Item Value Reference Range Interpretation Comme nts CHLAMYDIA, NAAT, THINPREP (t est code = 08312) NEGATIVE GONORRHEA, NAAT, THINPREP (t est code = 31939) NEGATIVE Juan SantanaVAGINAL PATHOGENS DNA [id number] 00:00:00* Test Item Value Reference Range Interpretation Comme nts MARLENE SPECIES (test code = ) NEGATIVE G. VAGINALIS (test code = ) NEGATIVE T. VAGINALIS (test code = ) NEGATIVE Juan SantanaPAP TEST, THINPREP, [id number] 00:00:00* Test Item Value Reference Range Interpretation Comme nts SOURCE: (test code = 800) Cervical/Endocervical SLIDES: (test code = 8011) 1 LMP: (test code = 8021) 07/22/2023 SPECIMEN ADEQUACY: (test code = 33328) (NOTE) INTERPRETATION: (test code = 85218) NILM/NO EPITH. ABNORMALITY;SEE BELOW CCO & PRESIDENT: (test code = 8101) TEVIN Patel(ASCP)IAC LOCATION: (test code = 44792) (NOTE) CPT: (test code = 8140) (NOTE) Juan Richard AustinHPV HIGH RISK WITH GENOTYPE, [id number] 00:00:00* Test Item Value Reference Range Interpretation Comme nts HPV HIGH RISK INTERP (test c ode = 63304) NEGATIVE HPV 16 (test code = 92418) NEGATIVE HPV 18 (test code = 34019) NEGATIVE HPV, HR, OTHER GENOTYPES (te st code = 40920) NEGATIVE Juan SantanaGC AND CHLAMYDIA AMPLIFIED, [id number] 00:00:00* Test Item Value Reference Range Interpretation Comme nts CHLAMYDIA, NAAT, THINPREP (t est code = 06716) NEGATIVE GONORRHEA, NAAT, THINPREP (t est code = 23291) NEGATIVE Juan SantanaVAGINAL PATHOGENS DNA [id number] 00:00:00* Test Item Value Reference Range Interpretation Comme nts MARLENE SPECIES (test code = 95392) NEGATIVE G. VAGINALIS (test code = 10583) NEGATIVE T. VAGINALIS (test code = 98375) NEGATIVE Juan SantanaPAP TEST, THINPREP, [id number] 00:00:00* Test Item Value Reference Range Interpretation Comme nts SOURCE: (test code = 8001) Cervical/Endocervical SLIDES: (test code = 8011) 1 LMP: (test code = 8021) 07/22/2023 SPECIMEN ADEQUACY: (test code = 45254) (NOTE) INTERPRETATION: (test code = 03363) NILM/NO EPITH. ABNORMALITY;SEE BELOW CCO & PRESIDENT: (test code = 8101) TEVIN Patel(ASCP)IAC LOCATION: (test code = 26854) (NOTE) CPT: (test code = 8140) (NOTE) Juan Richard AustinHPV HIGH RISK WITH GENOTYPE, [id number] 00:00:00* Test Item Value Reference Range Interpretation Comme nts HPV HIGH RISK INTERP (test c ode = 20679) NEGATIVE HPV 16 (test code = 48870) NEGATIVE HPV 18 (test code = 90217) NEGATIVE HPV, HR, OTHER GENOTYPES (te st code = 52523) NEGATIVE Juan SantanaGC AND CHLAMYDIA AMPLIFIED, [id number] 00:00:00* Test Item Value Reference Range Interpretation Comme nts CHLAMYDIA, NAAT, THINPREP (t est code = 70282) NEGATIVE GONORRHEA, NAAT, THINPREP (t est code = 03534) NEGATIVE Juan SantanaGC AND CHLAMYDIA AMPLIFIED, [id number] 00:00:00* Test Item Value Reference Range Interpretation Comme nts CHLAMYDIA, NAAT, THINPREP (t est code = 75076) NEGATIVE GONORRHEA, NAAT, THINPREP (t est code = 04438) NEGATIVE Juan SantanaComp. Metabolic Panel ([id number] 19:37:17* Test Item Value Reference Range Interpretation Comme nts NA (test code = 5923615770) 135 mmol/L 135-145 K (test code = 1939432397) 3.3 mmol/L 3.5-5.0 L CL (test code = 5052031525) 100 mmol/L 98-108 CO2 TOTAL (test code = 6291820956) 25 mmol/L 23-31 AGAP (test code = 8866458948) 10 2-16 BUN (test code = 0539598853) 16 mg/dL 7-23 GLUCOSE (test code = 2952826094) 95 mg/dL 70-110 CREATININE (test code = 2160-0) 0.99 mg/dL 0.50-1.04 TOTAL BILI (test code = 1094886125) 0.6 mg/dL 0.1-1.1 CALCIUM (test code = 2788929789) 9.5 mg/dL 8.6-10.6 T PROTEIN (test code = 8277131525) 8.1 g/dL 6.3-8.2 ALBUMIN (test code = 4231640926) 4.5 g/dL 3.5-5.0 ALK PHOS (test code = 7973348387) 82 U/L 34-122 ALTv (test code = 1742-6) 27 U/L 5-35 AST(SGOT) (test code = 5558540474) 31 U/L 13-40 eGFR (test code = 23887-8) 72.7 mL/min/1.73m2 CKD-EPI eGFR (2020). Assuming creatinine has been stable day-to-day for at least three months, the eGFR indicates Category G2 (60 - 89 mL/min/1.73 m2) Lab Interpretation (test code = 13542-0) Abnormal [facility] with [id number] 19:15:41* Test Item Value Reference Range Interpretation [...] 33.9 g/dL 31.6-35.1 RDW-SD (test code = 74534-1) 45.6 fL 39.0-49.9 RDW-CV (test code = 788-0) 12.8 % 12.0-15.5 PLT (test code = 777-3) 301 166-358 MPV (test code = 20070-4) 10.5 fL 9.5-12.9 NRBC/100 WBC (test code = 6862482631) 0.0 0.0-10.0 NRBC x10^3 (test code = 2385956883) See_Comment [Automated [employer] ge] The system which generated this result transmitted reference range: 10*3/?L. The reference range was not used to interpret this result as normal/abnormal. GRAN MAT (NEUT) % (test code = 770-8) 72.8 % IMM GRAN % (test code = 0585285273) 0.90 % LYMPH % (test code = 736-9) 18.4 % MONO % (test code = 5905-5) 7.1 % EOS % (test code = 713-8) 0.6 % BASO % (test code = 706-2) 0.2 % GRAN MAT x10^3(ANC) (test code = 9639295113) 9.24 10*3/uL 1.88-7.09 H IMM GRAN x10^3 (test code = 0696429649) 0.11 10*3/uL 0.00-0.06 H LYMPH x10^3 (test code = 731-0) 2.33 10*3/uL 1.32-3.29 MONO x10^3 (test code = 742-7) 0.90 10*3/uL 0.33-0.92 EOS x10^3 (test code = 711-2) 0.08 10*3/uL 0.03-0.39 BASO x10^3 (test code = 704-7) 0.03 10*3/uL 0.01-0.07 Lab Interpretation (test code = 90674-8) Abnormal [facility], THIRD [id number] 06:01:13* Test Item Value Reference Range Interpretation Comme nts TSH, THIRD GENERATION (test code = 2821) 3.390 UIU/ML 0.400-4.100 COMPREHENSIVE METABOLIC [id number] 05:29:13* Test Item Value Reference Range Interpretation Comme nts GLUCOSE (test code = 2217) 102 MG/DL 70-99 H BUN (test code = 2208) 13 MG/DL 6-20 CREATININE (test code = 2214) 1.30 MG/DL 0.60-1.30 eGFR (2020 CKD-EPI) (test code = 89480) 53 ML/MIN/1.73 >60 L The NKF-ASN Taskforc e recommends use of Cystatin C to confirm eGFR inadults at risk for CKD. [facility] offers eGFR with Cystatin C-Creatinineusing the 2020 CKD-EPI eGFR_creat-cystat equation (order code 3057) toincrease the accuracy of estimated GFR. For more information, contactyour financial analyst accountant or see announcement [email or web address] CALC BUN/CREAT (test code = 2235) 10 RATIO 6-28 SODIUM (test code = 223) 138 MEQ/L 133-146 POTASSIUM (test code = 2228) 4.6 MEQ/L 3.5-5.4 CHLORIDE (test code = 2215) 103 MEQ/L 95-107 CARBON DIOXIDE (test code = 2206) 21 MEQ/L 19-31 CALCIUM (test code = 2209) 8.9 MG/DL 8.5-10.5 PROTEIN, TOTAL (test code = 2229) 7.2 G/DL 6.1-8.3 ALBUMIN (test code = 220) 4.5 G/DL 3.5-5.2 CALC GLOBULIN (test code = 2240) 2.7 G/DL 1.9-3.7 CALC A/G RATIO (test code = 2234) 1.7 RATIO 1.0-2.6 BILIRUBIN, TOTAL (test code = 220) <0.2 MG/DL <=1.2 ALKALINE PHOSPHATASE (test code = 2204) 83 U/L 40-113 AST (test code = 221) 20 U/L 9-40 ALT (test code = 2219) 17 U/L 5-40 UNLESS OTHERWISE INDICATED, ALL TESTING PERFORMED AT [facility] [address] [place] [address] SELLING SPECIALIST: DERRICK FISHER M.D. CLIA NUMBER [id number] [place] [id number] TSH, THIRD [id number] 00:00:00* Test Item Value Reference Range Interpretation Comme nts TSH, THIRD GENERATION (test code = 2821) 3.390 UIU/ML Juan SantanaCOMPREHENSIVE METABOLIC [id number] 00:00:00* Test Item Value Reference Range Interpretation Comme nts GLUCOSE (test code = 2217) 102 MG/DL BUN (test code = 8) 13 MG/DL CREATININE (test code = 2214) 1.30 MG/DL eGFR (2020 CKD-EPI) (test co de = 13929) 53 ML/MIN/1.73 CALC BUN/CREAT (test code = [...] = 2219) 17 U/L Juan Petty, THIRD [id number] 00:00:00* Test Item Value Reference Range Interpretation Comme nts TSH, THIRD GENERATION (test code = 2821) 3.390 UIU/ML Juan SantanaCOMPREHENSIVE METABOLIC [id number] 00:00:00* Test Item Value Reference Range Interpretation Comme nts GLUCOSE (test code = 2217) 102 MG/DL BUN (test code = 2208) 13 MG/DL CREATININE (test code = 2214) 1.30 MG/DL eGFR (2020 CKD-EPI) (test co de = 21920) 53 ML/MIN/1.73 CALC BUN/CREAT (test code = [...] = 2219) 17 U/L Juan Petty, THIRD [id number] 00:00:00* Test Item Value Reference Range Interpretation Comme nts TSH, THIRD GENERATION (test code = 2821) 3.390 UIU/ML Juan SantanaCOMPREHENSIVE METABOLIC [id number] 00:00:00* Test Item Value Reference Range Interpretation Comme nts GLUCOSE (test code = 2217) 102 MG/DL BUN (test code = 2208) 13 MG/DL CREATININE (test code = 2214) 1.30 MG/DL eGFR (2020 CKD-EPI) (test co de = 88000) 53 ML/MIN/1.73 CALC BUN/CREAT (test code = [...] (test code = 2219) 17 U/L Juan SantanaCOMPREHENSIVE METABOLIC [id number] 00:00:00* Test Item Value Reference Range Interpretation Comme nts GLUCOSE (test code = 2217) 102 MG/DL BUN (test code = 2208) 13 MG/DL CREATININE (test code = 2214) 1.30 MG/DL eGFR (2020 CKD-EPI) (test co de = 76489) 53 ML/MIN/1.73 CALC BUN/CREAT (test code = [...] (test code = 2219) 17 U/L Juan Petty THIRD [id number] 00:00:00* Test Item Value Reference Range Interpretation Comme nts TSH, THIRD GENERATION (test code = 2821) 3.390 UIU/ML Juan SantanaCOMPREHENSIVE METABOLIC [id number] 00:00:00* Test Item Value Reference Range Interpretation Comme nts GLUCOSE (test code = 2217) 102 MG/DL BUN (test code = 2208) 13 MG/DL CREATININE (test code = 2214) 1.30 MG/DL eGFR (2020 CKD-EPI) (test co de = 35341) 53 ML/MIN/1.73 CALC BUN/CREAT (test code = [...] (test code = 2219) 17 U/L DINAH Cordon [id number] 00:00:00* Test Item Value Reference Range Interpretation Comme nts TSH, THIRD GENERATION (test code = 2821) 3.390 UIU/ML Juan SantanaCOMPREHENSIVE METABOLIC [id number] 00:00:00* Test Item Value Reference Range Interpretation Comme nts GLUCOSE (test code = 2217) 102 MG/DL BUN (test code = 2208) 13 MG/DL CREATININE (test code = 2214) 1.30 MG/DL eGFR (2020 CKD-EPI) (test co de = 11060) 53 ML/MIN/1.73 CALC BUN/CREAT (test code = [...] code = 2219) 17 U/L Juan Hilary AgustinaH, THIRD [id number] 00:00:00* Test Item Value Reference Range Interpretation Comme nts TSH, THIRD GENERATION (test code = 2821) 3.390 UIU/ML Juan SantanaCOMPREHENSIVE METABOLIC [id number] 00:00:00* Test Item Value Reference Range Interpretation Comme nts GLUCOSE (test code = 2217) 102 MG/DL BUN (test code = 2208) 13 MG/DL CREATININE (test code = 2214) 1.30 MG/DL eGFR (2020 CKD-EPI) (test co de = 08033) 53 ML/MIN/1.73 CALC BUN/CREAT (test code = [...] (test code = 2219) 17 U/L Juan Petty THIRD [id number] 00:00:00* Test Item Value Reference Range Interpretation Comme nts TSH, THIRD GENERATION (test code = 2821) 3.390 UIU/ML Juan SantanaCOMPREHENSIVE METABOLIC [id number] 00:00:00* Test Item Value Reference Range Interpretation Comme nts GLUCOSE (test code = 2217) 102 MG/DL BUN (test code = 2208) 13 MG/DL CREATININE (test code = 2214) 1.30 MG/DL eGFR (2020 CKD-EPI) (test co de = 44675) 53 ML/MIN/1.73 CALC BUN/CREAT (test code = [...] (test code = 2219) 17 U/L DINAH Cordon [id number] 00:00:00* Test Item Value Reference Range Interpretation Comme nts TSH, THIRD GENERATION (test code = 2821) 3.390 UIU/ML Juan SantanaCOMPREHENSIVE METABOLIC [id number] 00:00:00* Test Item Value Reference Range Interpretation Comme nts GLUCOSE (test code = 2217) 102 MG/DL BUN (test code = 2208) 13 MG/DL CREATININE (test code = 2214) 1.30 MG/DL eGFR (2020 CKD-EPI) (test co de = 74713) 53 ML/MIN/1.73 CALC BUN/CREAT (test code = [...] (test code = 2219) 17 U/L Juan Richard AgustinaH, THIRD [id number] 00:00:00* Test Item Value Reference Range Interpretation Comme nts TSH, THIRD GENERATION (test code = 2821) 3.390 UIU/ML Juan Richard MaxCOMPREHENSIVE METABOLIC [id number] 00:00:00* Test Item Value Reference Range Interpretation Comme nts GLUCOSE (test code = 2217) 102 MG/DL BUN (test code = 2208) 13 MG/DL CREATININE (test code = 2214) 1.30 MG/DL eGFR (2020 CKD-EPI) (test co de = 64437) 53 ML/MIN/1.73 CALC BUN/CREAT (test code = [...] = 2219) 17 U/L Juan Petty, THIRD [id number] 00:00:00* Test Item Value Reference Range Interpretation Comme nts TSH, THIRD GENERATION (test code = 2821) 3.390 UIU/ML Juan SantanaCOMPREHENSIVE METABOLIC [id number] 00:00:00* Test Item Value Reference Range Interpretation Comme nts GLUCOSE (test code = 2217) 102 MG/DL BUN (test code = 2208) 13 MG/DL CREATININE (test code = 2214) 1.30 MG/DL eGFR (2020 CKD-EPI) (test co de = 38882) 53 ML/MIN/1.73 CALC BUN/CREAT (test code = [...] = 2219) 17 U/L Juan Petty, THIRD [id number] 00:00:00* Test Item Value Reference Range Interpretation Comme nts TSH, THIRD GENERATION (test code = 2821) 3.390 UIU/ML Juan SantanaCOMPREHENSIVE METABOLIC [id number] 00:00:00* Test Item Value Reference Range Interpretation Comme nts GLUCOSE (test code = 2217) 102 MG/DL BUN (test code = 2208) 13 MG/DL CREATININE (test code = 2214) 1.30 MG/DL eGFR (2020 CKD-EPI) (test co de = 98277) 53 ML/MIN/1.73 CALC BUN/CREAT (test code = [...] (test code = 2219) 17 U/L Juan SantanaH, THIRD [id number] 00:00:00* Test Item Value Reference Range Interpretation Comme [facility] TSH, THIRD GENERATION (test code = 2821) 3.390 UIU/ML Juan SantanaCOMPREHENSIVE METABOLIC [id number] 00:00:00* Test Item Value Reference Range Interpretation Comme nts GLUCOSE (test code = 7) 102 MG/DL BUN (test code = 2208) 13 MG/DL CREATININE (test code = 2214) 1.30 MG/DL eGFR (2020 CKD-EPI) (test co de = 13802) 53 ML/MIN/1.73 CALC BUN/CREAT (test code = [...] (test code = 2219) 17 U/L Juan Petty THIRD [id number] 00:00:00* Test Item Value Reference Range Interpretation Comme nts TSH, THIRD GENERATION (test code = 2821) 3.390 UIU/ML Juan SantanaCOMPREHENSIVE METABOLIC [id number] 00:00:00* Test Item Value Reference Range Interpretation Comme nts GLUCOSE (test code = 2217) 102 MG/DL BUN (test code = 2208) 13 MG/DL CREATININE (test code = 2214) 1.30 MG/DL eGFR (2020 CKD-EPI) (test co de = 69412) 53 ML/MIN/1.73 CALC BUN/CREAT (test code = [...] = 2219) 17 U/L Juan Petty, THIRD [id number] 00:00:00* Test Item Value Reference Range Interpretation Comme nts TSH, THIRD GENERATION (test code = 2821) 3.390 UIU/ML Juan SantanaCOMPREHENSIVE METABOLIC [id number] 00:00:00* Test Item Value Reference Range Interpretation Comme nts GLUCOSE (test code = 2217) 102 MG/DL BUN (test code = 2208) 13 MG/DL CREATININE (test code = 2214) 1.30 MG/DL eGFR (2020 CKD-EPI) (test co de = 52505) 53 ML/MIN/1.73 CALC BUN/CREAT (test code = [...] (test code = 2219) 17 U/L Juan SantanaTSH, THIRD [id number] 00:00:00* Test Item Value Reference Range Interpretation Comme nts TSH, THIRD GENERATION (test code = 2821) 3.390 UIU/ML Juan SantanaCOMPREHENSIVE METABOLIC [id number] 00:00:00* Test Item Value Reference Range Interpretation Comme nts GLUCOSE (test code = 2217) 102 MG/DL BUN (test code = 2208) 13 MG/DL CREATININE (test code = 2214) 1.30 MG/DL eGFR (2020 CKD-EPI) (test co de = 94109) 53 ML/MIN/1.73 CALC BUN/CREAT (test code = [...] = 2219) 17 U/L Juan Petty, THIRD [id number] 00:00:00* Test Item Value Reference Range Interpretation Comme [facility] TSH, THIRD GENERATION (test code = 2821) 3.390 UIU/ML Juan SantanaCT urinalysis dipstick manually [id number] 17:51:10* Test Item Value Reference Range Interpretation Comme nts Color, UA (test code = 1076) Yellow Clarity, UA (test code = 2731685) Slightly Cloudy Glucose, UA (test code = 6278178) Negative Negative Bilirubin, UA (test code = 2084118) Negative Negative Ketones, Urine (test code = 36815-9) Negative Negative, Trace Spec Grav, UA (test code = 269377717) 1.010 Blood, UA (test code = 208553781) Trace pH, UA (test code = 7819673) 5.5 5.0-8.5 Protein, UA (test code = 9925001) 30(+1) mg/dL Negative, Trace, 200(+2)mg/dL, 15/mg/dL A UROBILINOGEN, POC (test code = 66574766) 0.2 Nitrite, UA (test code = 9141907) Negative Negative, Trace Leukocytes, UA (test code = 3056330) Negative Negative, Trace Lab Interpretation (test code = 43788-6) Abnormal [facility], THIRD [id number] 06:53:21* Test Item Value Reference Range Interpretation Comme [facility] TSH, THIRD GENERATION (test code = 2821) 5.680 UIU/ML 0.400-4.100 H UNLESS OTHERWISE INDICATED, ALL TESTING PERFORMED AT [facility] [address] [id number] SELLING SPECIALIST: DERRICK FISHER M.D. CLIA NUMBER [id number] [place]. [id number] COMPREHENSIVE METABOLIC [id number] 06:49:25* Test Item Value Reference Range Interpretation Comme nts GLUCOSE (test code = 2217) 95 MG/DL 70-99 BUN (test code = 2207) 15 MG/DL 6-20 CREATININE (test code = 2214) 1.22 MG/DL 0.60-1.30 eGFR (2020 CKD-EPI) (test code = 49321) 57 ML/MIN/1.73 >60 L The NKF-ASN Taskforce recommends use of Cystatin C to confirm eGFR inadults at risk for CKD. [facility] offers eGFR with Cystatin C-Creatinineusing the 2020 CKD-EPI eGFR_creat-cystat equation (order code 3057) toincrease the accuracy of estimated GFR. For more information, contactur financial analyst accountant or see announcement [email or web address] CALC BUN/CREAT (test code = 2234) 12 RATIO 6-28 SODIUM (test code = 2230) 138 MEQ/L 133-146 POTASSIUM (test code = 2228) 4.5 MEQ/L 3.5-5.4 CHLORIDE (test code = 2215) 102 MEQ/L 95-107 CARBON DIOXIDE (test code = 2206) 21 MEQ/L 19-31 CALCIUM (test code = 2209) 9.4 MG/DL 8.5-10.5 PROTEIN, TOTAL (test code = 2229) 7.7 G/DL 6.1-8.3 ALBUMIN (test code = 220) 4.8 G/DL 3.5-5.2 CALC GLOBULIN (test code = 2240) 2.9 G/DL 1.9-3.7 CALC A/G RATIO (test code = 2234) 1.7 RATIO 1.0-2.6 BILIRUBIN, TOTAL (test code = 220) 0.6 MG/DL <=1.2 ALKALINE PHOSPHATASE (test code = 2204) 98 U/L 40-113 AST (test code = 2218) 20 U/L 9-40 ALT (test code = 2219) 16 U/L 5-40 LIPID [id number] 06:49:25* Test Item Value Reference Range Interpretation [...] SPECIMENS. FOR MOREINFORMATION, SEE CLIENT ANNOUNCEMENT AT [email or web address] RISK RATIO LDL/HDL (test code = 2238) 2.97 RATIO <3.22 COMPREHENSIVE METABOLIC [id number] 00:00:00* Test Item Value Reference Range Interpretation Comme nts GLUCOSE (test code = 2217) 95 MG/DL BUN (test code = 2208) 15 MG/DL CREATININE (test code = 2214) 1.22 MG/DL eGFR (2020 CKD-EPI) (test co de = 13348) 57 ML/MIN/1.73 CALC BUN/CREAT (test code = [...] (test code = 2219) 16 U/L Juan SantanaCOMPREHENSIVE METABOLIC [id number] 00:00:00* Test Item Value Reference Range Interpretation Comme nts GLUCOSE (test code = 2217) 95 MG/DL BUN (test code = 2208) 15 MG/DL CREATININE (test code = 2214) 1.22 MG/DL eGFR (2020 CKD-EPI) (test co de = 76029) 57 ML/MIN/1.73 CALC BUN/CREAT (test code = [...] code = 2219) 16 U/L Juan SantanaLIPID [id number] 00:00:00* Test Item Value Reference Range Interpretation Comme nts CHOLESTEROL (test code = 2210) 264 MG/DL TRIGLYCERIDES (test code = 2232) 156 MG/DL HDL CHOLESTEROL (test code = 2220) 59 MG/DL CALC LDL CHOL (test code = 2237) 175 MG/DL RISK RATIO LDL/HDL (test cod e = 2238) 2.97 RATIO Juan BerriosH, THIRD [id number] 00:00:00* Test Item Value Reference Range Interpretation Comme nts TSH, THIRD GENERATION (test code = 2821) 5.680 UIU/ML Juan Richard MaxCOMPREHENSIVE METABOLIC [id number] 00:00:00* Test Item Value Reference Range Interpretation Comme nts GLUCOSE (test code = 2217) 95 MG/DL BUN (test code = 2208) 15 MG/DL CREATININE (test code = 2214) 1.22 MG/DL eGFR (2020 CKD-EPI) (test co de = 68287) 57 ML/MIN/1.73 CALC BUN/CREAT (test code = [...] code = 2219) 16 U/L Juan SantanaLIPID [id number] 00:00:00* Test Item Value Reference Range Interpretation Comme nts CHOLESTEROL (test code = 2210) 264 MG/DL TRIGLYCERIDES (test code = 2232) 156 MG/DL HDL CHOLESTEROL (test code = 2220) 59 MG/DL CALC LDL CHOL (test code = 2237) 175 MG/DL RISK RATIO LDL/HDL (test cod e = 2238) 2.97 RATIO Juan SantanaTSH, THIRD [id number] 00:00:00* Test Item Value Reference Range Interpretation Comme nts TSH, THIRD GENERATION (test code = 2821) 5.680 UIU/ML Juan SantanaCOMPREHENSIVE METABOLIC [id number] 00:00:00* Test Item Value Reference Range Interpretation Comme nts GLUCOSE (test code = 2217) 95 MG/DL BUN (test code = 2208) 15 MG/DL CREATININE (test code = 2214) 1.22 MG/DL eGFR (2020 CKD-EPI) (test co de = 38736) 57 ML/MIN/1.73 CALC BUN/CREAT (test code = [...] code = 2219) 16 U/L Juan SantanaLIPID [id number] 00:00:00* Test Item Value Reference Range Interpretation Comme nts CHOLESTEROL (test code = 2210) 264 MG/DL TRIGLYCERIDES (test code = 2232) 156 MG/DL HDL CHOLESTEROL (test code = 2220) 59 MG/DL CALC LDL CHOL (test code = 2237) 175 MG/DL RISK RATIO LDL/HDL (test cod e = 2238) 2.97 RATIO Juan SantanaLIPID [id number] 00:00:00* Test Item Value Reference Range Interpretation Comme nts CHOLESTEROL (test code = 2210) 264 MG/DL TRIGLYCERIDES (test code = 2232) 156 MG/DL HDL CHOLESTEROL (test code = 2220) 59 MG/DL CALC LDL CHOL (test code = 2237) 175 MG/DL RISK RATIO LDL/HDL (test cod e = 2238) 2.97 RATIO Juan Petty, THIRD [id number] 00:00:00* Test Item Value Reference Range Interpretation Comme nts TSH, THIRD GENERATION (test code = 2821) 5.680 UIU/ML Juan Petty, THIRD [id number] 00:00:00* Test Item Value Reference Range Interpretation Comme nts TSH, THIRD GENERATION (test code = 2821) 5.680 UIU/ML Juan SantanaCOMPREHENSIVE METABOLIC [id number] 00:00:00* Test Item Value Reference Range Interpretation Comme nts GLUCOSE (test code = 2217) 95 MG/DL BUN (test code = 2208) 15 MG/DL CREATININE (test code = 2214) 1.22 MG/DL eGFR (2020 CKD-EPI) (test co de = 88527) 57 ML/MIN/1.73 CALC BUN/CREAT (test code = [...] code = 2219) 16 U/L Juan SantanaLIPID [id number] 00:00:00* Test Item Value Reference Range Interpretation Comme nts CHOLESTEROL (test code = 2210) 264 MG/DL TRIGLYCERIDES (test code = 2232) 156 MG/DL HDL CHOLESTEROL (test code = 2220) 59 MG/DL CALC LDL CHOL (test code = 2237) 175 MG/DL RISK RATIO LDL/HDL (test cod e = 2238) 2.97 RATIO Juan SantanaTSH, THIRD [id number] 00:00:00* Test Item Value Reference Range Interpretation Comme nts TSH, THIRD GENERATION (test code = 2821) 5.680 UIU/ML Juan SantanaCOMPREHENSIVE METABOLIC [id number] 00:00:00* Test Item Value Reference Range Interpretation Comme nts GLUCOSE (test code = 2217) 95 MG/DL BUN (test code = 2208) 15 MG/DL CREATININE (test code = 2214) 1.22 MG/DL eGFR (2020 CKD-EPI) (test co de = 23191) 57 ML/MIN/1.73 CALC BUN/CREAT (test code = [...] code = 2219) 16 U/L Juan SantanaLIPID [id number] 00:00:00* Test Item Value Reference Range Interpretation Comme nts CHOLESTEROL (test code = 2210) 264 MG/DL TRIGLYCERIDES (test code = 2232) 156 MG/DL HDL CHOLESTEROL (test code = 2220) 59 MG/DL CALC LDL CHOL (test code = 2237) 175 MG/DL RISK RATIO LDL/HDL (test cod e = 2238) 2.97 RATIO Juan SantanaTSH, THIRD [id number] 00:00:00* Test Item Value Reference Range Interpretation Comme nts TSH, THIRD GENERATION (test code = 2821) 5.680 UIU/ML Juan SantanaCOMPREHENSIVE METABOLIC [id number] 00:00:00* Test Item Value Reference Range Interpretation Comme nts GLUCOSE (test code = 2217) 95 MG/DL BUN (test code = 2208) 15 MG/DL CREATININE (test code = 2214) 1.22 MG/DL eGFR (2020 CKD-EPI) (test co de = 06229) 57 ML/MIN/1.73 CALC BUN/CREAT (test code = [...] code = 2219) 16 U/L Juan SantanaLIPID [id number] 00:00:00* Test Item Value Reference Range Interpretation Comme nts CHOLESTEROL (test code = 2210) 264 MG/DL TRIGLYCERIDES (test code = 2232) 156 MG/DL HDL CHOLESTEROL (test code = 2220) 59 MG/DL CALC LDL CHOL (test code = 2237) 175 MG/DL RISK RATIO LDL/HDL (test cod e = 2238) 2.97 RATIO Juan SantanaTSH, THIRD [id number] 00:00:00* Test Item Value Reference Range Interpretation Comme nts TSH, THIRD GENERATION (test code = 2821) 5.680 UIU/ML Juan SantanaCOMPREHENSIVE METABOLIC [id number] 00:00:00* Test Item Value Reference Range Interpretation Comme nts GLUCOSE (test code = 2217) 95 MG/DL BUN (test code = 2208) 15 MG/DL CREATININE (test code = 2214) 1.22 MG/DL eGFR (2020 CKD-EPI) (test co de = 75493) 57 ML/MIN/1.73 CALC BUN/CREAT (test code = [...] code = 2219) 16 U/L Juan SantanaLIPID [id number] 00:00:00* Test Item Value Reference Range Interpretation Comme nts CHOLESTEROL (test code = 2210) 264 MG/DL TRIGLYCERIDES (test code = 2232) 156 MG/DL HDL CHOLESTEROL (test code = 2220) 59 MG/DL CALC LDL CHOL (test code = 2237) 175 MG/DL RISK RATIO LDL/HDL (test cod e = 2238) 2.97 RATIO Juan Petty THIRD [id number] 00:00:00* Test Item Value Reference Range Interpretation Comme nts TSH, THIRD GENERATION (test code = 2821) 5.680 UIU/ML Juan SantanaCOMPREHENSIVE METABOLIC [id number] 00:00:00* Test Item Value Reference Range Interpretation Comme nts GLUCOSE (test code = 2217) 95 MG/DL BUN (test code = 2208) 15 MG/DL CREATININE (test code = 2214) 1.22 MG/DL eGFR (2020 CKD-EPI) (test co de = 39501) 57 ML/MIN/1.73 CALC BUN/CREAT (test code = [...] code = 2219) 16 U/L Juan SantanaLIPID [id number] 00:00:00* Test Item Value Reference Range Interpretation Comme nts CHOLESTEROL (test code = 2210) 264 MG/DL TRIGLYCERIDES (test code = 2232) 156 MG/DL HDL CHOLESTEROL (test code = 2220) 59 MG/DL CALC LDL CHOL (test code = 2237) 175 MG/DL RISK RATIO LDL/HDL (test cod e = 2238) 2.97 RATIO Juan Petty THIRD [id number] 00:00:00* Test Item Value Reference Range Interpretation Comme nts TSH, THIRD GENERATION (test code = 2821) 5.680 UIU/ML Juan SantanaCOMPREHENSIVE METABOLIC [id number] 00:00:00* Test Item Value Reference Range Interpretation Comme nts GLUCOSE (test code = 2217) 95 MG/DL BUN (test code = 2208) 15 MG/DL CREATININE (test code = 2214) 1.22 MG/DL eGFR (2020 CKD-EPI) (test co de = 00401) 57 ML/MIN/1.73 CALC BUN/CREAT (test code = [...] code = 2219) 16 U/L Juan SantanaLIPID [id number] 00:00:00* Test Item Value Reference Range Interpretation Comme nts CHOLESTEROL (test code = 2210) 264 MG/DL TRIGLYCERIDES (test code = 2232) 156 MG/DL HDL CHOLESTEROL (test code = 2220) 59 MG/DL CALC LDL CHOL (test code = 2237) 175 MG/DL RISK RATIO LDL/HDL (test cod e = 2238) 2.97 RATIO Juan SantanaTSH, THIRD [id number] 00:00:00* Test Item Value Reference Range Interpretation Comme nts TSH, THIRD GENERATION (test code = 2821) 5.680 UIU/ML Juan SantanaCOMPREHENSIVE METABOLIC [id number] 00:00:00* Test Item Value Reference Range Interpretation Comme nts GLUCOSE (test code = 2217) 95 MG/DL BUN (test code = 2208) 15 MG/DL CREATININE (test code = 2214) 1.22 MG/DL eGFR (2020 CKD-EPI) (test co de = 89300) 57 ML/MIN/1.73 CALC BUN/CREAT (test code = [...] code = 2219) 16 U/L Juan SantanaLIPID [id number] 00:00:00* Test Item Value Reference Range Interpretation Comme nts CHOLESTEROL (test code = 2210) 264 MG/DL TRIGLYCERIDES (test code = 2232) 156 MG/DL HDL CHOLESTEROL (test code = 2220) 59 MG/DL CALC LDL CHOL (test code = 2237) 175 MG/DL RISK RATIO LDL/HDL (test cod e = 2238) 2.97 RATIO Juan SantanaTSH, THIRD [id number] 00:00:00* Test Item Value Reference Range Interpretation Comme nts TSH, THIRD GENERATION (test code = 2821) 5.680 UIU/ML Juan Richard MaxCOMPREHENSIVE METABOLIC [id number] 00:00:00* Test Item Value Reference Range Interpretation Comme nts GLUCOSE (test code = 2217) 95 MG/DL BUN (test code = 2208) 15 MG/DL CREATININE (test code = 2214) 1.22 MG/DL eGFR (2020 CKD-EPI) (test co de = 94792) 57 ML/MIN/1.73 CALC BUN/CREAT (test code = [...] code = 2219) 16 U/L Juan SantanaLIPID [id number] 00:00:00* Test Item Value Reference Range Interpretation Comme nts CHOLESTEROL (test code = 2210) 264 MG/DL TRIGLYCERIDES (test code = 2232) 156 MG/DL HDL CHOLESTEROL (test code = 2220) 59 MG/DL CALC LDL CHOL (test code = 2237) 175 MG/DL RISK RATIO LDL/HDL (test cod e = 2238) 2.97 RATIO Juan SantanaTSH, THIRD [id number] 00:00:00* Test Item Value Reference Range Interpretation Comme nts TSH, THIRD GENERATION (test code = 2821) 5.680 UIU/ML Juan SantanaCOMPREHENSIVE METABOLIC [id number] 00:00:00* Test Item Value Reference Range Interpretation Comme nts GLUCOSE (test code = 2217) 95 MG/DL BUN (test code = 2208) 15 MG/DL CREATININE (test code = 2214) 1.22 MG/DL eGFR (2020 CKD-EPI) (test co de = 60571) 57 ML/MIN/1.73 CALC BUN/CREAT (test code = [...] code = 2219) 16 U/L Juan SantanaLIPID [id number] 00:00:00* Test Item Value Reference Range Interpretation Comme nts CHOLESTEROL (test code = 2210) 264 MG/DL TRIGLYCERIDES (test code = 2232) 156 MG/DL HDL CHOLESTEROL (test code = 2220) 59 MG/DL CALC LDL CHOL (test code = 2237) 175 MG/DL RISK RATIO LDL/HDL (test cod e = 2238) 2.97 RATIO Juan SantanaTSH, THIRD [id number] 00:00:00* Test Item Value Reference Range Interpretation Comme nts TSH, THIRD GENERATION (test code = 2821) 5.680 UIU/ML Juan SantanaCOMPREHENSIVE METABOLIC [id number] 00:00:00* Test Item Value Reference Range Interpretation Comme nts GLUCOSE (test code = 2217) 95 MG/DL BUN (test code = 2208) 15 MG/DL CREATININE (test code = 2214) 1.22 MG/DL eGFR (2020 CKD-EPI) (test co de = 64216) 57 ML/MIN/1.73 CALC BUN/CREAT (test code = [...] code = 2219) 16 U/L Juan SantanaLIPID [id number] 00:00:00* Test Item Value Reference Range Interpretation Comme nts CHOLESTEROL (test code = 2210) 264 MG/DL TRIGLYCERIDES (test code = 2232) 156 MG/DL HDL CHOLESTEROL (test code = 2220) 59 MG/DL CALC LDL CHOL (test code = 2237) 175 MG/DL RISK RATIO LDL/HDL (test cod e = 2238) 2.97 RATIO Juan BerriosH, THIRD [id number] 00:00:00* Test Item Value Reference Range Interpretation Comme nts TSH, THIRD GENERATION (test code = 2821) 5.680 UIU/ML Juan SantanaCOMPREHENSIVE METABOLIC [id number] 00:00:00* Test Item Value Reference Range Interpretation Comme nts GLUCOSE (test code = 2217) 95 MG/DL BUN (test code = 2208) 15 MG/DL CREATININE (test code = 2214) 1.22 MG/DL eGFR (2020 CKD-EPI) (test co de = 24564) 57 ML/MIN/1.73 CALC BUN/CREAT (test code = [...] code = 2219) 16 U/L Juan SantanaLIPID [id number] 00:00:00* Test Item Value Reference Range Interpretation Comme nts CHOLESTEROL (test code = 2210) 264 MG/DL TRIGLYCERIDES (test code = 2232) 156 MG/DL HDL CHOLESTEROL (test code = 2220) 59 MG/DL CALC LDL CHOL (test code = 2237) 175 MG/DL RISK RATIO LDL/HDL (test cod e = 2238) 2.97 RATIO DINAH [id number] 00:00:00* Test Item Value Reference Range Interpretation Comme nts TSH, THIRD GENERATION (test code = 2821) 5.680 UIU/ML Juan SantanaCOMPREHENSIVE METABOLIC [id number] 00:00:00* Test Item Value Reference Range Interpretation Comme nts GLUCOSE (test code = 2217) 95 MG/DL BUN (test code = 2208) 15 MG/DL CREATININE (test code = 2214) 1.22 MG/DL eGFR (2020 CKD-EPI) (test co de = 29745) 57 ML/MIN/1.73 CALC BUN/CREAT (test code = [...] code = 2219) 16 U/L Juan SantanaLIPID [id number] 00:00:00* Test Item Value Reference Range Interpretation Comme nts CHOLESTEROL (test code = 2210) 264 MG/DL TRIGLYCERIDES (test code = 2232) 156 MG/DL HDL CHOLESTEROL (test code = 2220) 59 MG/DL CALC LDL CHOL (test code = 2237) 175 MG/DL RISK RATIO LDL/HDL (test cod e = 2238) 2.97 RATIO DINAH Cordon2023-10-27 00:00:00* Test Item Value Reference Range Interpretation Comme nts TSH, THIRD GENERATION (test code = 2821) 5.680 UIU/ML Juan Branch, [id number] 15:30:18SPECIMEN NUMBER: [id number] CULTURE, URINE SPECIMEN NUMBER: [id number] SPECIMEN COMMENT: URINE SOURCE: URINE REPORT STATUS: FINAL ISOLATE NUMBER 1: IDENTIFICATION: 05/02/2023 <10,000 CFU/ML STREPTOCOCCUS AGALACTIAE (GROUP B) ADDITIONAL OBSERVATIONS: PENICILLIN AND AMPICILLIN ARE DRUGS OF CHOICE FOR TREATMENT OF B-HEMOLYTIC STREPTOCOCCAL INFECTIONS. SUSCEPTIBILITY TESTING OF PENICILLIN AND OTHERB-LACTAMS APPROVED BY THE [employer] FOR TREATMENT OF B-HEMOLYTIC STREPTOCOCCAL INFECTIONS NEED NOT BE PERFORMED ROUTINELY. ADDITIONAL OBSERVATIONS: 05/02/2023 10-50,000 CFU/ML UROGENITAL [facility] PRESENT NO COMMON PATHOGENS UNLESS OTHERWISE INDICATED, ALL TESTING PERFORMED AT [facility] [address] [place] [address] SELLING SPECIALIST: DERRICK FISHER M.D. [place] NUMBER [id number] [place] [id number], [id number] 00:00:00* Test Item Value Reference Range Interpretation Comme nts CULTURE, URINE (test code = 04482) SPECIMEN NUMBER: [id number] Juan Branch [id number] 00:00:00* Test Item Value Reference Range Interpretation Comme nts CULTURE, URINE (test code = 98754) SPECIMEN NUMBER: [id number] Juan Branch [id number] 00:00:00* Test Item Value Reference Range Interpretation Comme nts CULTURE, URINE (test code = 53329) SPECIMEN NUMBER: [id number] Juan DobbsLTJESUS, [id number] 00:00:00* Test Item Value Reference Range Interpretation Comme nts CULTURE, URINE (test code = 13492) SPECIMEN NUMBER: [id number] Juan DobbsLTJESUS, [id number] 00:00:00* Test Item Value Reference Range Interpretation Comme nts CULTURE, URINE (test code = 81987) SPECIMEN NUMBER: [id number] Juan Branch, [id number] 00:00:00* Test Item Value Reference Range Interpretation Comme nts CULTURE, URINE (test code = 16990) SPECIMEN NUMBER: [id number] Juan Branch, [id number] 00:00:00* Test Item Value Reference Range Interpretation Comme nts CULTURE, URINE (test code = 87098) SPECIMEN NUMBER: [id number] Juan Branch [id number] 00:00:00* Test Item Value Reference Range Interpretation Comme nts CULTURE, URINE (test code = 34262) SPECIMEN NUMBER: [id number] Juan Branch, [id number] 00:00:00* Test Item Value Reference Range Interpretation Comme nts CULTURE, URINE (test code = 38666) SPECIMEN NUMBER: [id number] Juan Branch, [id number] 00:00:00* Test Item Value Reference Range Interpretation Comme nts CULTURE, URINE (test code = 46815) SPECIMEN NUMBER: [id number] Juan Branch, [id number] 00:00:00* Test Item Value Reference Range Interpretation Comme nts CULTURE, URINE (test code = 28908) SPECIMEN NUMBER: [id number] Juan Branch, [id number] 00:00:00* Test Item Value Reference Range Interpretation Comme nts CULTURE, URINE (test code = 21679) SPECIMEN NUMBER: [id number] Juan Branch, [id number] 00:00:00* Test Item Value Reference Range Interpretation Comme nts CULTURE, URINE (test code = 29879) SPECIMEN NUMBER: [id number] Juan Branch, [id number] 00:00:00* Test Item Value Reference Range Interpretation Comme nts CULTURE, URINE (test code = 35210) SPECIMEN NUMBER: [id number] Juan DobbsLTJESUS, [id number] 00:00:00* Test Item Value Reference Range Interpretation Comme nts CULTURE, URINE (test code = 13120) SPECIMEN NUMBER: [id number] Juan DobbsLTJESUS, [id number] 00:00:00* Test Item Value Reference Range Interpretation Comme nts CULTURE, URINE (test code = 10699) SPECIMEN NUMBER: [id number] Juan SantanaCOMPREHENSIVE METABOLIC [id number] 06:56:24* Test Item Value Reference Range Interpretation Comme nts GLUCOSE (test code = 2217) 101 MG/DL 70-99 H BUN (test code = 220) 19 MG/DL 6-20 CREATININE (test code = 2214) 1.28 MG/DL 0.60-1.30 eGFR (2020 CKD-EPI) (test code = 52665) 54 ML/MIN/1.73 >60 L The NKF-ASN Taskforce recommends use of Cystatin C to confirm eGFR inadults at risk for CKD. [facility] offers eGFR with Cystatin C-Creatinineusing the 2020 CKD-EPI eGFR_creat-cystat equation (order code 3057) toincrease the accuracy of estimated GFR. For more information, contactyour financial analyst accountant or see announcement [email or web address] CALC BUN/CREAT (test code = 2234) 15 [...] as normal/abnormal. ALKALINE PHOSPHATASE (test code = 4) 109 U/L 40-113 AST (test code = 2218) 18 U/L 9-40 ALT (test code = 2219) 16 U/L 5-40 LIPID [id number] 06:56:24* Test Item Value Reference Range Interpretation [...] SPECIMENS. FOR MOREINFORMATION, SEE CLIENT ANNOUNCEMENT AT [email or web address] RISK RATIO LDL/HDL (test code = 2238) 4.00 RATIO <3.22 H UNLESS OTHERW ISE INDICATED, ALL TESTING PERFORMED AT [facility] [address] [place] [address] SELLING SPECIALIST: DERRICK FISHER M.D. CLIA NUMBER [id number] [facility]. [id number] TSH, THIRD [id number] 06:30:05* Test Item Value Reference Range Interpretation Comme nts TSH, THIRD GENERATION (test code = 2821) 3.020 UIU/ML 0.400-4.100 ALBUMIN/CREATININE RATIO, URINE, [id number] 05:34:14* Test Item Value Reference Range Interpretation Comme nts CREATININE, URINE, CONC. (test code = 2072) 186.6 MG/DL NOT ESTAB ALBUMIN, URINE, RANDOM (test code = 19834) 47.2 MG/DL NOT ESTAB CALC ALBUMIN/CREAT, RND (test code = 43325) 253 MG/G <30 H Note: Albumin/Creatinine ratio reference interval reflects ADA and NKF guidelines. HEMOGLOBIN [id number] 05:00:36* Test Item Value Reference Range Interpretation Comme nts HEMOGLOBIN A1c (test code = 60673) 5.8 % 4.2-5.6 H [employer] GUIDELINES FOR HGB A1C: [...] ETC.). CONSIDER ALTERNATE TESTING OR LABORATORY CONSULTATION. COMPREHENSIVE METABOLIC [id number] 00:00:00* Test Item Value Reference Range Interpretation Comme nts GLUCOSE (test code = 2217) 101 MG/DL BUN (test code = 2208) 19 MG/DL CREATININE (test code = 2214) 1.28 MG/DL eGFR (2020 CKD-EPI) (test co de = 01061) 54 ML/MIN/1.73 CALC BUN/CREAT (test code = [...] 2219) 16 U/L Juan SantanaALBUMIN/CREATININE RATIO, RANDOM [id number] 00:00:00* Test Item Value Reference Range Interpretation Comme [facility] CREATININE, URINE, CONC. (te st code = 2072) 186.6 MG/DL ALBUMIN, URINE, RANDOM (test code = 06577) 47.2 MG/DL CALC ALBUMIN/CREAT, RND (cristhian t code = 59410) 253 MG/G Juan Richard MaxTSH, THIRD [id number] 00:00:00* Test Item Value Reference Range Interpretation Comme [facility] TSH, THIRD GENERATION (test code = 2821) 3.020 UIU/ML Juan SantanaHEMOGLOBIN [id number] 00:00:00* Test Item Value Reference Range Interpretation Comme nts HEMOGLOBIN A1c (test code = 68182) 5.8 % Juan SantanaCOMPREHENSIVE METABOLIC [id number] 00:00:00* Test Item Value Reference Range Interpretation Comme nts GLUCOSE (test code = 2217) 101 MG/DL BUN (test code = 2208) 19 MG/DL CREATININE (test code = 2214) 1.28 MG/DL eGFR (2020 CKD-EPI) (test co de = 57328) 54 ML/MIN/1.73 CALC BUN/CREAT (test code = [...] (test code = 2219) 16 U/L Juan Richard AustinLIPID [id number] 00:00:00* Test Item Value Reference Range Interpretation Comme nts CHOLESTEROL (test code = 2210) 285 MG/DL TRIGLYCERIDES (test code = 2232) 245 MG/DL HDL CHOLESTEROL (test code = 2220) 48 MG/DL CALC LDL CHOL (test code = 2237) 192 MG/DL RISK RATIO LDL/HDL (test cod e = 2238) 4.00 RATIO Juan Richard AustinCOMPREHENSIVE METABOLIC [id number] 00:00:00* Test Item Value Reference Range Interpretation Comme nts GLUCOSE (test code = 2217) 101 MG/DL BUN (test code = 2208) 19 MG/DL CREATININE (test code = 2214) 1.28 MG/DL eGFR (2020 CKD-EPI) (test co de = 76837) 54 ML/MIN/1.73 CALC BUN/CREAT (test code = [...] 221) 18 U/L ALT (test code = 221) 16 U/L Juan SantanaALBUMIN/CREATININE RATIO, RANDOM [id number] 00:00:00* Test Item Value Reference Range Interpretation Comme nts CREATININE, URINE, CONC. (te st code = 2072) 186.6 MG/DL ALBUMIN, URINE, RANDOM (test code = 38091) 47.2 MG/DL CALC ALBUMIN/CREAT, RND (cristhian t code = 37241) 253 MG/G Juan Richard AustinTSH, THIRD [id number] 00:00:00* Test Item Value Reference Range Interpretation Comme oneal TSH, THIRD GENERATION (test code = 2821) 3.020 UIU/ML Juan SantanaHEMOGLOBIN [id number] 00:00:00* Test Item Value Reference Range Interpretation Comme nts HEMOGLOBIN A1c (test code = 21878) 5.8 % Juan SantanaLIPID [id number] 00:00:00* Test Item Value Reference Range Interpretation Comme nts CHOLESTEROL (test code = 2210) 285 MG/DL TRIGLYCERIDES (test code = 2232) 245 MG/DL HDL CHOLESTEROL (test code = 2220) 48 MG/DL CALC LDL CHOL (test code = 2237) 192 MG/DL RISK RATIO LDL/HDL (test cod e = 2238) 4.00 RATIO Juan SantanaCOMPREHENSIVE METABOLIC [id number] 00:00:00* Test Item Value Reference Range Interpretation Comme nts GLUCOSE (test code = 7) 101 MG/DL BUN (test code = 2208) 19 MG/DL CREATININE (test code = 2214) 1.28 MG/DL eGFR (2020 CKD-EPI) (test co de = 67021) 54 ML/MIN/1.73 CALC BUN/CREAT (test code = [...] 2204) 109 U/L AST (test code = 221) 18 U/L ALT (test code = 2219) 16 U/L Juan SantanaALBUMIN/CREATININE RATIO, RANDOM [id number] 00:00:00* Test Item Value Reference Range Interpretation Comme nts CREATININE, URINE, CONC. (te st code = 2071) 186.6 MG/DL ALBUMIN, URINE, RANDOM (test code = 61981) 47.2 MG/DL CALC ALBUMIN/CREAT, RND (cristhian t code = 28417) 253 MG/G Juan SantanaALBUMIN/CREATININE RATIO, RANDOM [id number] 00:00:00* Test Item Value Reference Range Interpretation Comme nts CREATININE, URINE, CONC. (te st code = 2071) 186.6 MG/DL ALBUMIN, URINE, RANDOM (test code = 26801) 47.2 MG/DL CALC ALBUMIN/CREAT, RND (cristhian t code = 30085) 253 MG/G Juan SantanaTSH, THIRD [id number] 00:00:00* Test Item Value Reference Range Interpretation Comme nts TSH, THIRD GENERATION (test code = 2821) 3.020 UIU/ML Juan SantanaHEMOGLOBIN [id number] 00:00:00* Test Item Value Reference Range Interpretation Comme nts HEMOGLOBIN A1c (test code = 03421) 5.8 % Juan SantanaLIPID [id number] 00:00:00* Test Item Value Reference Range Interpretation Comme nts CHOLESTEROL (test code = 2210) 285 MG/DL TRIGLYCERIDES (test code = 2232) 245 MG/DL HDL CHOLESTEROL (test code = 2220) 48 MG/DL CALC LDL CHOL (test code = 2237) 192 MG/DL RISK RATIO LDL/HDL (test cod e = 2238) 4.00 RATIO Juan SantanaCOMPREHENSIVE METABOLIC [id number] 00:00:00* Test Item Value Reference Range Interpretation Comme nts GLUCOSE (test code = 2217) 101 MG/DL BUN (test code = 2208) 19 MG/DL CREATININE (test code = 2214) 1.28 MG/DL eGFR (2020 CKD-EPI) (test co de = 77711) 54 ML/MIN/1.73 CALC BUN/CREAT (test code = [...] 2219) 16 U/L Juan SantanaALBUMIN/CREATININE RATIO, RANDOM [id number] 00:00:00* Test Item Value Reference Range Interpretation Comme nts CREATININE, URINE, CONC. (te st code = 2072) 186.6 MG/DL ALBUMIN, URINE, RANDOM (test code = 61453) 47.2 MG/DL CALC ALBUMIN/CREAT, RND (cristhian t code = 06146) 253 MG/G Juan SantanaTSH, THIRD [id number] 00:00:00* Test Item Value Reference Range Interpretation Comme nts TSH, THIRD GENERATION (test code = 2821) 3.020 UIU/ML Juan Petty, THIRD [id number] 00:00:00* Test Item Value Reference Range Interpretation Comme nts TSH, THIRD GENERATION (test code = 2821) 3.020 UIU/ML Juan SantanaHEMOGLOBIN [id number] 00:00:00* Test Item Value Reference Range Interpretation Comme oneal HEMOGLOBIN A1c (test code = 96600) 5.8 % Juan SantanaLIPID [id number] 00:00:00* Test Item Value Reference Range Interpretation Comme nts CHOLESTEROL (test code = 2210) 285 MG/DL TRIGLYCERIDES (test code = 2232) 245 MG/DL HDL CHOLESTEROL (test code = 2220) 48 MG/DL CALC LDL CHOL (test code = 2237) 192 MG/DL RISK RATIO LDL/HDL (test cod e = 2238) 4.00 RATIO Juan SantanaCOMPREHENSIVE METABOLIC [id number] 00:00:00* Test Item Value Reference Range Interpretation Comme nts GLUCOSE (test code = 2217) 101 MG/DL BUN (test code = 2208) 19 MG/DL CREATININE (test code = 2214) 1.28 MG/DL eGFR (2020 CKD-EPI) (test co de = 03679) 54 ML/MIN/1.73 CALC BUN/CREAT (test code = [...] (test code = 2219) 16 U/L Juan SantanaHEMOGLOBIN [id number] 00:00:00* Test Item Value Reference Range Interpretation Comme nts HEMOGLOBIN A1c (test code = 98054) 5.8 % Juan Richard AustinALBUMIN/CREATININE RATIO, RANDOM [id number] 00:00:00* Test Item Value Reference Range Interpretation Comme nts CREATININE, URINE, CONC. (te st code = 2072) 186.6 MG/DL ALBUMIN, URINE, RANDOM (test code = 73215) 47.2 MG/DL CALC ALBUMIN/CREAT, RND (cristhian t code = 75079) 253 MG/G Juan SantanaTSH, THIRD [id number] 00:00:00* Test Item Value Reference Range Interpretation Comme nts TSH, THIRD GENERATION (test code = 2821) 3.020 UIU/ML Juan SantanaHEMOGLOBIN [id number] 00:00:00* Test Item Value Reference Range Interpretation Comme nts HEMOGLOBIN A1c (test code = 32361) 5.8 % Juan Richard AustinLIPID [id number] 00:00:00* Test Item Value Reference Range Interpretation Comme nts CHOLESTEROL (test code = 2210) 285 MG/DL TRIGLYCERIDES (test code = 2232) 245 MG/DL HDL CHOLESTEROL (test code = 2220) 48 MG/DL CALC LDL CHOL (test code = 2237) 192 MG/DL RISK RATIO LDL/HDL (test cod e = 2238) 4.00 RATIO Juan SantanaLIPID [id number] 00:00:00* Test Item Value Reference Range Interpretation Comme nts CHOLESTEROL (test code = 2210) 285 MG/DL TRIGLYCERIDES (test code = 2232) 245 MG/DL HDL CHOLESTEROL (test code = 2220) 48 MG/DL CALC LDL CHOL (test code = 2237) 192 MG/DL RISK RATIO LDL/HDL (test cod e = 2238) 4.00 RATIO Juan SantanaCOMPREHENSIVE METABOLIC [id number] 00:00:00* Test Item Value Reference Range Interpretation Comme nts GLUCOSE (test code = 2217) 101 MG/DL BUN (test code = 2208) 19 MG/DL CREATININE (test code = 2214) 1.28 MG/DL eGFR (2020 CKD-EPI) (test co de = 35827) 54 ML/MIN/1.73 CALC BUN/CREAT (test code = 2235) 15 RATIO SODIUM (test code = 2231) 141 MEQ/L POTASSIUM (test code = 2228) 4.5 MEQ/L CHLORIDE (test code = 2215) 102 MEQ/L CARBON DIOXIDE (test code = 2206) 24 MEQ/L CALCIUM (test code = 2209) 10.2 MG/DL PROTEIN, TOTAL (test code = 222) 8.2 G/DL ALBUMIN (test code = 220) 4.9 G/DL CALC GLOBULIN (test code = 2240) 3.3 G/DL CALC A/G RATIO (test code = 2234) 1.5 RATIO BILIRUBIN, TOTAL (test code = 2207) 0.5 MG/DL ALKALINE PHOSPHATASE (test code = 2203) 109 U/L AST (test code = 221) 18 U/L ALT (test code = 221) 16 U/L Juan SantanaALBUMIN/CREATININE RATIO, RANDOM [id number] 00:00:00* Test Item Value Reference Range Interpretation Comme [facility] CREATININE, URINE, CONC. (te st code = 2072) 186.6 MG/DL ALBUMIN, URINE, RANDOM (test code = 82133) 47.2 MG/DL CALC ALBUMIN/CREAT, RND (cristhian t code = 65370) 253 MG/G Juan SantanaTSH, THIRD [id number] 00:00:00* Test Item Value Reference Range Interpretation Comme [facility] TSH, THIRD GENERATION (test code = 2821) 3.020 UIU/ML Juan SantanaHEMOGLOBIN [id number] 00:00:00* Test Item Value Reference Range Interpretation Comme [facility] HEMOGLOBIN A1c (test code = 11091) 5.8 % Juan SantanaLIPID [id number] 00:00:00* Test Item Value Reference Range Interpretation Comme nts CHOLESTEROL (test code = 2210) 285 MG/DL TRIGLYCERIDES (test code = 2232) 245 MG/DL HDL CHOLESTEROL (test code = 2220) 48 MG/DL CALC LDL CHOL (test code = 2237) 192 MG/DL RISK RATIO LDL/HDL (test cod e = 2238) 4.00 RATIO Juan SantanaCOMPREHENSIVE METABOLIC [id number] 00:00:00* Test Item Value Reference Range Interpretation Comme nts GLUCOSE (test code = 2217) 101 MG/DL BUN (test code = 2208) 19 MG/DL CREATININE (test code = 2214) 1.28 MG/DL eGFR (2020 CKD-EPI) (test co de = 22024) 54 ML/MIN/1.73 CALC BUN/CREAT (test code = 2235) 15 RATIO SODIUM (test code = 2231) 141 MEQ/L POTASSIUM (test code = 2228) 4.5 MEQ/L CHLORIDE (test code = 2215) 102 MEQ/L CARBON DIOXIDE (test code = 2206) 24 MEQ/L CALCIUM (test code = 2209) 10.2 MG/DL PROTEIN, TOTAL (test code = 222) 8.2 G/DL ALBUMIN (test code = 220) 4.9 G/DL CALC GLOBULIN (test code = 2240) 3.3 G/DL CALC A/G RATIO (test code = 2234) 1.5 RATIO BILIRUBIN, TOTAL (test code = 7) 0.5 MG/DL ALKALINE PHOSPHATASE (test code = 2204) 109 U/L AST (test code = 2218) 18 U/L ALT (test code = 2219) 16 U/L Juan SantanaALBUMIN/CREATININE RATIO, RANDOM [id number] 00:00:00* Test Item Value Reference Range Interpretation Comme [facility] CREATININE, URINE, CONC. (te st code = 2072) 186.6 MG/DL ALBUMIN, URINE, RANDOM (test code = 72028) 47.2 MG/DL CALC ALBUMIN/CREAT, RND (cristhian t code = 47056) 253 MG/G Juan SantanaTSH, THIRD [id number] 00:00:00* Test Item Value Reference Range Interpretation Comme [facility] TSH, THIRD GENERATION (test code = 2821) 3.020 UIU/ML Juan SantanaHEMOGLOBIN [id number] 00:00:00* Test Item Value Reference Range Interpretation Comme nts HEMOGLOBIN A1c (test code = 29660) 5.8 % Juan SantanaLIPID [id number] 00:00:00* Test Item Value Reference Range Interpretation Comme nts CHOLESTEROL (test code = 2210) 285 MG/DL TRIGLYCERIDES (test code = 2232) 245 MG/DL HDL CHOLESTEROL (test code = 2220) 48 MG/DL CALC LDL CHOL (test code = 2237) 192 MG/DL RISK RATIO LDL/HDL (test cod e = 2238) 4.00 RATIO Juan SantanaCOMPREHENSIVE METABOLIC [id number] 00:00:00* Test Item Value Reference Range Interpretation Comme nts GLUCOSE (test code = 2217) 101 MG/DL BUN (test code = 2208) 19 MG/DL CREATININE (test code = 2214) 1.28 MG/DL eGFR (2020 CKD-EPI) (test co de = 32171) 54 ML/MIN/1.73 CALC BUN/CREAT (test code = [...] 2219) 16 U/L Juan SantanaALBUMIN/CREATININE RATIO, RANDOM [id number] 00:00:00* Test Item Value Reference Range Interpretation Comme nts CREATININE, URINE, CONC. (te st code = 2072) 186.6 MG/DL ALBUMIN, URINE, RANDOM (test code = 16998) 47.2 MG/DL CALC ALBUMIN/CREAT, RND (cristhian t code = 37330) 253 MG/G Juan SantanaTSH, THIRD [id number] 00:00:00* Test Item Value Reference Range Interpretation Comme nts TSH, THIRD GENERATION (test code = 2821) 3.020 UIU/ML Juan SantanaHEMOGLOBIN [id number] 00:00:00* Test Item Value Reference Range Interpretation Comme nts HEMOGLOBIN A1c (test code = 31988) 5.8 % Juan SantanaLIPID [id number] 00:00:00* Test Item Value Reference Range Interpretation Comme nts CHOLESTEROL (test code = 2210) 285 MG/DL TRIGLYCERIDES (test code = 2232) 245 MG/DL HDL CHOLESTEROL (test code = 2220) 48 MG/DL CALC LDL CHOL (test code = 2237) 192 MG/DL RISK RATIO LDL/HDL (test cod e = 2238) 4.00 RATIO Juan SantanaCOMPREHENSIVE METABOLIC [id number] 00:00:00* Test Item Value Reference Range Interpretation Comme nts GLUCOSE (test code = 2217) 101 MG/DL BUN (test code = 2208) 19 MG/DL CREATININE (test code = 2214) 1.28 MG/DL eGFR (2020 CKD-EPI) (test co de = 99488) 54 ML/MIN/1.73 CALC BUN/CREAT (test code = [...] 2219) 16 U/L Juan SantanaALBUMIN/CREATININE RATIO, RANDOM [id number] 00:00:00* Test Item Value Reference Range Interpretation Comme nts CREATININE, URINE, CONC. (te st code = 2072) 186.6 MG/DL ALBUMIN, URINE, RANDOM (test code = 26091) 47.2 MG/DL CALC ALBUMIN/CREAT, RND (cristhian t code = 55738) 253 MG/G Juan SantanaTSH, THIRD [id number] 00:00:00* Test Item Value Reference Range Interpretation Comme oneal TSH, THIRD GENERATION (test code = 2821) 3.020 UIU/ML Juan SantanaHEMOGLOBIN [id number] 00:00:00* Test Item Value Reference Range Interpretation Comme oneal HEMOGLOBIN A1c (test code = 64130) 5.8 % Juan SantanaLIPID [id number] 00:00:00* Test Item Value Reference Range Interpretation Comme nts CHOLESTEROL (test code = 2210) 285 MG/DL TRIGLYCERIDES (test code = 2232) 245 MG/DL HDL CHOLESTEROL (test code = 2220) 48 MG/DL CALC LDL CHOL (test code = 2237) 192 MG/DL RISK RATIO LDL/HDL (test cod e = 2238) 4.00 RATIO Juan SantanaCOMPREHENSIVE METABOLIC [id number] 00:00:00* Test Item Value Reference Range Interpretation Comme nts GLUCOSE (test code = 2217) 101 MG/DL BUN (test code = 2208) 19 MG/DL CREATININE (test code = 2214) 1.28 MG/DL eGFR (2020 CKD-EPI) (test co de = 75529) 54 ML/MIN/1.73 CALC BUN/CREAT (test code = [...] 2219) 16 U/L Juan SantanaALBUMIN/CREATININE RATIO, RANDOM [id number] 00:00:00* Test Item Value Reference Range Interpretation Comme nts CREATININE, URINE, CONC. (te st code = 2072) 186.6 MG/DL ALBUMIN, URINE, RANDOM (test code = 79747) 47.2 MG/DL CALC ALBUMIN/CREAT, RND (cristhian t code = 19568) 253 MG/G Juan SantanaTSH, THIRD [id number] 00:00:00* Test Item Value Reference Range Interpretation Comme oneal TSH, THIRD GENERATION (test code = 2821) 3.020 UIU/ML Juan SantanaHEMOGLOBIN [id number] 00:00:00* Test Item Value Reference Range Interpretation Comme oneal HEMOGLOBIN A1c (test code = 96371) 5.8 % Juan SantanaLIPID [id number] 00:00:00* Test Item Value Reference Range Interpretation Comme nts CHOLESTEROL (test code = 2210) 285 MG/DL TRIGLYCERIDES (test code = 2232) 245 MG/DL HDL CHOLESTEROL (test code = 2220) 48 MG/DL CALC LDL CHOL (test code = 2237) 192 MG/DL RISK RATIO LDL/HDL (test cod e = 2238) 4.00 RATIO Juan SantanaCOMPREHENSIVE METABOLIC [id number] 00:00:00* Test Item Value Reference Range Interpretation Comme nts GLUCOSE (test code = 2217) 101 MG/DL BUN (test code = 2208) 19 MG/DL CREATININE (test code = 2214) 1.28 MG/DL eGFR (2020 CKD-EPI) (test co de = 52497) 54 ML/MIN/1.73 CALC BUN/CREAT (test code = [...] 2219) 16 U/L Juan SantanaALBUMIN/CREATININE RATIO, RANDOM [id number] 00:00:00* Test Item Value Reference Range Interpretation Comme oneal CREATININE, URINE, CONC. (te st code = 2072) 186.6 MG/DL ALBUMIN, URINE, RANDOM (test code = 43642) 47.2 MG/DL CALC ALBUMIN/CREAT, RND (cristhian t code = 43047) 253 MG/G Juan SantanaTSH, THIRD [id number] 00:00:00* Test Item Value Reference Range Interpretation Comme oneal TSH, THIRD GENERATION (test code = 2821) 3.020 UIU/ML Juan SantanaHEMOGLOBIN [id number] 00:00:00* Test Item Value Reference Range Interpretation Comme oneal HEMOGLOBIN A1c (test code = 70357) 5.8 % Juan SantanaLIPID [id number] 00:00:00* Test Item Value Reference Range Interpretation Comme nts CHOLESTEROL (test code = 2210) 285 MG/DL TRIGLYCERIDES (test code = 2232) 245 MG/DL HDL CHOLESTEROL (test code = 2220) 48 MG/DL CALC LDL CHOL (test code = 2237) 192 MG/DL RISK RATIO LDL/HDL (test cod e = 2238) 4.00 RATIO Juan SantanaCOMPREHENSIVE METABOLIC [id number] 00:00:00* Test Item Value Reference Range Interpretation Comme nts GLUCOSE (test code = 2217) 101 MG/DL BUN (test code = 2208) 19 MG/DL CREATININE (test code = 2214) 1.28 MG/DL eGFR (2020 CKD-EPI) (test co de = 35860) 54 ML/MIN/1.73 CALC BUN/CREAT (test code = [...] 2219) 16 U/L Juan SantanaALBUMIN/CREATININE RATIO, RANDOM [id number] 00:00:00* Test Item Value Reference Range Interpretation Comme nts CREATININE, URINE, CONC. (te st code = 2072) 186.6 MG/DL ALBUMIN, URINE, RANDOM (test code = 51018) 47.2 MG/DL CALC ALBUMIN/CREAT, RND (cristhian t code = 51500) 253 MG/G Juan SantanaTSH, THIRD [id number] 00:00:00* Test Item Value Reference Range Interpretation Comme oneal TSH, THIRD GENERATION (test code = 2821) 3.020 UIU/ML Juan SantanaHEMOGLOBIN [id number] 00:00:00* Test Item Value Reference Range Interpretation Comme oneal HEMOGLOBIN A1c (test code = 21641) 5.8 % Juan SantanaLIPID [id number] 00:00:00* Test Item Value Reference Range Interpretation Comme nts CHOLESTEROL (test code = 2210) 285 MG/DL TRIGLYCERIDES (test code = 2232) 245 MG/DL HDL CHOLESTEROL (test code = 2220) 48 MG/DL CALC LDL CHOL (test code = 2237) 192 MG/DL RISK RATIO LDL/HDL (test cod e = 2238) 4.00 RATIO Juan SantanaCOMPREHENSIVE METABOLIC [id number] 00:00:00* Test Item Value Reference Range Interpretation Comme nts GLUCOSE (test code = 2217) 101 MG/DL BUN (test code = 2208) 19 MG/DL CREATININE (test code = 2214) 1.28 MG/DL eGFR (2020 CKD-EPI) (test co de = 89039) 54 ML/MIN/1.73 CALC BUN/CREAT (test code = [...] 2204) 109 U/L AST (test code = 221) 18 U/L ALT (test code = 2219) 16 U/L Juan SantanaALBUMIN/CREATININE RATIO, RANDOM [id number] 00:00:00* Test Item Value Reference Range Interpretation Comme oneal CREATININE, URINE, CONC. (te st code = 2072) 186.6 MG/DL ALBUMIN, URINE, RANDOM (test code = 68907) 47.2 MG/DL CALC ALBUMIN/CREAT, RND (cristhian t code = 88225) 253 MG/G Juan SantanaTSH, THIRD [id number] 00:00:00* Test Item Value Reference Range Interpretation Comme oneal TSH, THIRD GENERATION (test code = 2821) 3.020 UIU/ML Juan SantanaHEMOGLOBIN [id number] 00:00:00* Test Item Value Reference Range Interpretation Comme nts HEMOGLOBIN A1c (test code = 65823) 5.8 % Juan SantanaLIPID [id number] 00:00:00* Test Item Value Reference Range Interpretation Comme nts CHOLESTEROL (test code = 2210) 285 MG/DL TRIGLYCERIDES (test code = 2232) 245 MG/DL HDL CHOLESTEROL (test code = 2220) 48 MG/DL CALC LDL CHOL (test code = 2237) 192 MG/DL RISK RATIO LDL/HDL (test cod e = 2238) 4.00 RATIO Juan SantanaCOMPREHENSIVE METABOLIC [id number] 00:00:00* Test Item Value Reference Range Interpretation Comme nts GLUCOSE (test code = 7) 101 MG/DL BUN (test code = 8) 19 MG/DL CREATININE (test code = 2214) 1.28 MG/DL eGFR (2020 CKD-EPI) (test co de = 31747) 54 ML/MIN/1.73 CALC BUN/CREAT (test code = 2234) 15 RATIO SODIUM (test code = 2231) 141 MEQ/L POTASSIUM (test code = 2228) 4.5 MEQ/L CHLORIDE (test code = 2215) 102 MEQ/L CARBON DIOXIDE (test code = 2206) 24 MEQ/L CALCIUM (test code = 2209) 10.2 MG/DL PROTEIN, TOTAL (test code = 222) 8.2 G/DL ALBUMIN (test code = 220) 4.9 G/DL CALC GLOBULIN (test code = 2240) 3.3 G/DL CALC A/G RATIO (test code = 2233) 1.5 RATIO BILIRUBIN, TOTAL (test code = 2206) 0.5 MG/DL ALKALINE PHOSPHATASE (test code = 2203) 109 U/L AST (test code = 2217) 18 U/L ALT (test code = 2218) 16 U/L Juan SantanaALBUMIN/CREATININE RATIO, RANDOM [id number] 00:00:00* Test Item Value Reference Range Interpretation Comme nts CREATININE, URINE, CONC. (te st code = 2072) 186.6 MG/DL ALBUMIN, URINE, RANDOM (test code = 97896) 47.2 MG/DL CALC ALBUMIN/CREAT, RND (cristhian t code = 49107) 253 MG/G Juan SantanaTSH, THIRD [id number] 00:00:00* Test Item Value Reference Range Interpretation Comme nts TSH, THIRD GENERATION (test code = 2821) 3.020 UIU/ML Juan SantanaHEMOGLOBIN [id number] 00:00:00* Test Item Value Reference Range Interpretation Comme nts HEMOGLOBIN A1c (test code = 60165) 5.8 % Juan SantanaLIPID [id number] 00:00:00* Test Item Value Reference Range Interpretation Comme nts CHOLESTEROL (test code = 2210) 285 MG/DL TRIGLYCERIDES (test code = 2232) 245 MG/DL HDL CHOLESTEROL (test code = 0) 48 MG/DL CALC LDL CHOL (test code = 7) 192 MG/DL RISK RATIO LDL/HDL (test cod e = 2238) 4.00 RATIO Juan SantanaCOMPREHENSIVE METABOLIC [id number] 00:00:00* Test Item Value Reference Range Interpretation Comme nts GLUCOSE (test code = 7) 101 MG/DL BUN (test code = 8) 19 MG/DL CREATININE (test code = 2214) 1.28 MG/DL eGFR (2020 CKD-EPI) (test co de = 01581) 54 ML/MIN/1.73 CALC BUN/CREAT (test code = 2235) 15 RATIO SODIUM (test code = 2231) 141 MEQ/L POTASSIUM (test code = 2228) 4.5 MEQ/L CHLORIDE (test code = 2215) 102 MEQ/L CARBON DIOXIDE (test code = 2206) 24 MEQ/L CALCIUM (test code = 2209) 10.2 MG/DL PROTEIN, TOTAL (test code = 2228) 8.2 G/DL ALBUMIN (test code = 2200) 4.9 G/DL CALC GLOBULIN (test code = 2240) 3.3 G/DL CALC A/G RATIO (test code = 4) 1.5 RATIO BILIRUBIN, TOTAL (test code = 7) 0.5 MG/DL ALKALINE PHOSPHATASE (test code = 4) 109 U/L AST (test code = 2218) 18 U/L ALT (test code = 2219) 16 U/L Juan SantanaALBUMIN/CREATININE RATIO, RANDOM [id number] 00:00:00* Test Item Value Reference Range Interpretation Comme nts CREATININE, URINE, CONC. (te st code = 2072) 186.6 MG/DL ALBUMIN, URINE, RANDOM (test code = 40719) 47.2 MG/DL CALC ALBUMIN/CREAT, RND (cristhian t code = 00335) 253 MG/G Juan SantanaTSH, THIRD [id number] 00:00:00* Test Item Value Reference Range Interpretation Comme nts TSH, THIRD GENERATION (test code = 2821) 3.020 UIU/ML Juan SantanaHEMOGLOBIN [id number] 00:00:00* Test Item Value Reference Range Interpretation Comme nts HEMOGLOBIN A1c (test code = 40674) 5.8 % Juan SantanaLIPID [id number] 00:00:00* Test Item Value Reference Range Interpretation Comme nts CHOLESTEROL (test code = 2210) 285 MG/DL TRIGLYCERIDES (test code = 2232) 245 MG/DL HDL CHOLESTEROL (test code = 2220) 48 MG/DL CALC LDL CHOL (test code = 2237) 192 MG/DL RISK RATIO LDL/HDL (test cod e = 2238) 4.00 RATIO LARISA Cortes2022-10-08 10:17:56SPECIMEN NUMBER: [id number] CULTURE, URINE SPECIMEN NUMBER: [id number] SPECIMEN COMMENT: URINE SOURCE: URINE REPORT STATUS: [...] CFU/ML UROGENITAL CARSON PRESENT NO COMMON PATHOGENSCULTURE, URINE 2022-04-14 00:00:00* Test Item Value Reference Range Interpretation Comme nts CULTURE, URINE (test code = 98914) SPECIMEN NUMBER: [id number] Juan Branch [id number] 00:00:00* Test Item Value Reference Range Interpretation Comme nts CULTURE, URINE (test code = 22469) SPECIMEN NUMBER: [id number] Juan Branch [id number] 00:00:00* Test Item Value Reference Range Interpretation Comme nts CULTURE, URINE (test code = 37290) SPECIMEN NUMBER: [id number] Juan Branch, [id number] 00:00:00* Test Item Value Reference Range Interpretation Comme nts CULTURE, URINE (test code = 23321) SPECIMEN NUMBER: [id number] Juan Branch, [id number] 00:00:00* Test Item Value Reference Range Interpretation Comme nts CULTURE, URINE (test code = 05579) SPECIMEN NUMBER: [id number] Juan Branch [id number] 00:00:00* Test Item Value Reference Range Interpretation Comme nts CULTURE, URINE (test code = 55757) SPECIMEN NUMBER: [id number] Juan Branch [id number] 00:00:00* Test Item Value Reference Range Interpretation Comme nts CULTURE, URINE (test code = 65380) SPECIMEN NUMBER: [id number] Juan Branch [id number] 00:00:00* Test Item Value Reference Range Interpretation Comme nts CULTURE, URINE (test code = 64587) SPECIMEN NUMBER: [id number] Juan Branch [id number] 00:00:00* Test Item Value Reference Range Interpretation Comme nts CULTURE, URINE (test code = 11566) SPECIMEN NUMBER: [id number] Juan Branch [id number] 00:00:00* Test Item Value Reference Range Interpretation Comme nts CULTURE, URINE (test code = 67441) SPECIMEN NUMBER: [id number] Juan Branch [id number] 00:00:00* Test Item Value Reference Range Interpretation Comme nts CULTURE, URINE (test code = 14235) SPECIMEN NUMBER: [id number] Juan Branch [id number] 00:00:00* Test Item Value Reference Range Interpretation Comme nts CULTURE, URINE (test code = 40598) SPECIMEN NUMBER: [id number] Juan Branch [id number] 00:00:00* Test Item Value Reference Range Interpretation Comme nts CULTURE, URINE (test code = 72225) SPECIMEN NUMBER: [id number] Juan Branch [id number] 00:00:00* Test Item Value Reference Range Interpretation Comme nts CULTURE, URINE (test code = 59779) SPECIMEN NUMBER: [id number] Juan Branch [id number] 00:00:00* Test Item Value Reference Range Interpretation Comme nts CULTURE, URINE (test code = 80772) SPECIMEN NUMBER: [id number] Juan Branch [id number] 00:00:00* Test Item Value Reference Range Interpretation Comme nts CULTURE, URINE (test code = 95119) SPECIMEN NUMBER: [id number] Juan Branch, [id number] 00:00:00* Test Item Value Reference Range Interpretation Comme nts CULTURE, URINE (test code = 84073) SPECIMEN NUMBER: [id number] VAGINAL PATHOGENS DNA [id number] 15:15:22* Test Item Value Reference Range Interpretation Comme nts MARLENE SPECIES (test code = 98404) NEGATIVE NEGATIVE G. VAGINALIS (test code = 22646) NEGATIVE NEGATIVE T. VAGINALIS (test code = 20475) NEGATIVE NEGATIVE UNLESS OTHERWISE INDICATED, ALL TESTING PERFORMED [facility] [place], [facility]. [address] [place] [address] SELLING SPECIALIST: CECILIA CORNELL M.D. CLIA NUMBER [id number] [place]. [id number] VAGINAL PATHOGENS DNA [id number] 00:00:00* Test Item Value Reference Range Interpretation Comme nts MARLENE SPECIES (test code = 58821) NEGATIVE G. VAGINALIS (test code = 72281) NEGATIVE T. VAGINALIS (test code = 48225) NEGATIVE Juan F AustinVAGINAL PATHOGENS DNA [id number] 00:00:00* Test Item Value Reference Range Interpretation Comme nts MARLENE SPECIES (test code = 63167) NEGATIVE G. VAGINALIS (test code = 59004) NEGATIVE T. VAGINALIS (test code = 39048) NEGATIVE Juan F AustinVAGINAL PATHOGENS DNA [id number] 00:00:00* Test Item Value Reference Range Interpretation Comme nts MARLENE SPECIES (test code = 27314) NEGATIVE G. VAGINALIS (test code = 40629) NEGATIVE T. VAGINALIS (test code = 96553) NEGATIVE Juan F AustinVAGINAL PATHOGENS DNA [id number] 00:00:00* Test Item Value Reference Range Interpretation Comme nts MARLENE SPECIES (test code = 74298) NEGATIVE G. VAGINALIS (test code = 17725) NEGATIVE T. VAGINALIS (test code = 15896) NEGATIVE Juan F AustinVAGINAL PATHOGENS DNA [id number] 00:00:00* Test Item Value Reference Range Interpretation Comme nts MARLENE SPECIES (test code = 84652) NEGATIVE G. VAGINALIS (test code = 43816) NEGATIVE T. VAGINALIS (test code = 06458) NEGATIVE Juan F AustinVAGINAL PATHOGENS DNA [id number] 00:00:00* Test Item Value Reference Range Interpretation Comme nts MARLENE SPECIES (test code = 06200) NEGATIVE G. VAGINALIS (test code = 55513) NEGATIVE T. VAGINALIS (test code = 86181) NEGATIVE Juan F AustinVAGINAL PATHOGENS DNA [id number] 00:00:00* Test Item Value Reference Range Interpretation Comme nts MARLENE SPECIES (test code = 46484) NEGATIVE G. VAGINALIS (test code = 69042) NEGATIVE T. VAGINALIS (test code = 15480) NEGATIVE Juan F AustinVAGINAL PATHOGENS DNA [id number] 00:00:00* Test Item Value Reference Range Interpretation Comme nts MARLENE SPECIES (test code = 19124) NEGATIVE G. VAGINALIS (test code = 47665) NEGATIVE T. VAGINALIS (test code = 07671) NEGATIVE Juan F AustinVAGINAL PATHOGENS DNA [id number] 00:00:00* Test Item Value Reference Range Interpretation Comme nts MARLENE SPECIES (test code = 42592) NEGATIVE G. VAGINALIS (test code = 84266) NEGATIVE T. VAGINALIS (test code = 31338) NEGATIVE Juan F AustinVAGINAL PATHOGENS DNA [id number] 00:00:00* Test Item Value Reference Range Interpretation Comme nts MARLENE SPECIES (test code = 41222) NEGATIVE G. VAGINALIS (test code = 87259) NEGATIVE T. VAGINALIS (test code = 32232) NEGATIVE Juan F AustinVAGINAL PATHOGENS DNA [id number] 00:00:00* Test Item Value Reference Range Interpretation Comme nts MARLENE SPECIES (test code = 79068) NEGATIVE G. VAGINALIS (test code = 81349) NEGATIVE T. VAGINALIS (test code = 87561) NEGATIVE Juan F AustinVAGINAL PATHOGENS DNA [id number] 00:00:00* Test Item Value Reference Range Interpretation Comme nts MARLENE SPECIES (test code = 66772) NEGATIVE G. VAGINALIS (test code = 32232) NEGATIVE T. VAGINALIS (test code = 53500) NEGATIVE Juan F AustinVAGINAL PATHOGENS DNA [id number] 00:00:00* Test Item Value Reference Range Interpretation Comme nts MARLENE SPECIES (test code = 68418) NEGATIVE G. VAGINALIS (test code = 28957) NEGATIVE T. VAGINALIS (test code = 23480) NEGATIVE Juan F AustinVAGINAL PATHOGENS DNA [id number] 00:00:00* Test Item Value Reference Range Interpretation Comme nts MARLENE SPECIES (test code = ) NEGATIVE G. VAGINALIS (test code = 87344) NEGATIVE T. VAGINALIS (test code = 19066) NEGATIVE Juan Richard AustinVAGINAL PATHOGENS DNA [id number] 00:00:00* Test Item Value Reference Range Interpretation Comme nts MARLENE SPECIES (test code = 68880) NEGATIVE G. VAGINALIS (test code = 19788) NEGATIVE T. VAGINALIS (test code = 84045) NEGATIVE Juan Richard AustinVAGINAL PATHOGENS DNA [id number] 00:00:00* Test Item Value Reference Range Interpretation Comme nts MARLENE SPECIES (test code = 25437) NEGATIVE G. VAGINALIS (test code = 67423) NEGATIVE T. VAGINALIS (test code = 47293) NEGATIVE Juan Richard AustinVAGINAL PATHOGENS DNA [id number] 00:00:00* Test Item Value Reference Range Interpretation Comme nts MARLENE SPECIES (test code = 24519) NEGATIVE G. VAGINALIS (test code = 50369) NEGATIVE T. VAGINALIS (test code = 53292) NEGATIVE NOTE:2022-03-27 06:01:43* Test Item Value Reference Range Interpretation Comme nts NOTE: (test code = 998) (NOTE) IN ACCORDANCE WI FED[employer]AL GUIDELINES REQUIRING ALL VERBAL REQUESTS FOR LABORATORY TESTS TO BE ACCOMPANIED BY WRITTEN AUTHORIZATION WITHIN 30 DAYS OF THIS REQUEST, PLEASE SIGN BELOW AND RETURN A COPY OF THIS REPORT BY FAX TO THE LABORATORY SCANNING DEPARTMENT AT [phone]. PHYSICIAN'S SIGNATURE DATE UNLESS OTHERWISE INDICATED, ALL TESTING PERFORMED [facility] [address] [place] [id number] SELLING SPECIALIST: CECILIA CORNELL M.D. CLIA NUMBER [id number] [place]. [id number] TSH, THIRD [id number] 00:28:21* Test Item Value Reference Range Interpretation [...] nts NOTE: (test code = 998) (NOTE) DINAH Cordon GENERATION [ADDED]2022-03-27 00:00:00* Test Item Value Reference Range Interpretation Comme nts TSH, THIRD GENERATION (test code = 2821) 3.200 UIU/ML Juan Richard AustinNOTE: [ADDED]2022-03-27 00:00:00* Test Item Value Reference Range Interpretation Comme nts NOTE: (test code = 998) (NOTE) DINAH Cordon GENERATION [ADDED]2022-03-27 00:00:00* Test Item Value Reference [...] GENERATION (test code = 2821) 3.200 UIU/ML Juna Richard AustinNOTE: [ADDED]2022-03-27 00:00:00* Test Item Value [...] (test code = 998) (NOTE) COMPREHENSIVE METABOLIC [id number] 04:40:28* Test Item Value Reference Range Interpretation Comme nts GLUCOSE (test code = 2217) 93 MG/DL 70-99 BUN (test code = 2208) 15 MG/DL 6-20 CREATININE (test code = 2214) 1.34 MG/DL 0.60-1.30 H eGFR (2020 CKD-EPI) (test code = 17280) 51 ML/MIN/1.73 >60 L The NKF-ASN Taskforce recommends use of Cystatin C to confirm eGFR inadults at risk for CKD. [facility] offers eGFR with Cystatin C-Creatinineusing the 2020 CKD-EPI eGFR_creat-cystat equation (order code 3057) toincrease the accuracy of estimated GFR. For more information, contactyour financial analyst accountant or see announcement [email or web address] CALC BUN/CREAT (test code = 2234) 11 RATIO 6-28 SODIUM (test code = 223) 138 MEQ/L 133-146 POTASSIUM (test code = 2228) 4.6 MEQ/L 3.5-5.4 CHLORIDE (test code = 2215) 100 MEQ/L 95-107 CARBON DIOXIDE (test code = 2206) 23 MEQ/L 19-31 CALCIUM (test code = 2209) 9.8 MG/DL 8.5-10.5 PROTEIN, TOTAL (test code = 222) 7.6 G/DL 6.1-8.3 ALBUMIN (test code = 2201) [...] code = 2219) 25 U/L 5-40 LIPID [id number] 04:40:28* Test Item Value Reference Range Interpretation Comme nts CHOLESTEROL (test code = 2210) 246 MG/DL <200 H TRIGLYCERIDES (test code = 2232) 325 MG/DL <150 H HDL CHOLESTEROL (test code = 2220) 43 MG/DL >39 CALC LDL CHOL (test code = 2237) 153 MG/DL <100 H NOTE: CALCULATED LDL IS BASED ON LESLY-GRECO METHOD WHICHINCLUDES ADJUSTABLE TRIGLYCERIDE:VLDL CHOLESTEROL RATIO.THIS FACTOR VARIES BY MEASURED TRIGLYCERIDE AND NON-HDLCHOLESTEROL CONCENTRATIONS WITH INCREASED CALCULATED LDL SEENIN HIGHER TRIGLYCERIDE OR LOWER NON-HDL SPECIMENS. FOR MOREINFORMATION, SEE CLIENT ANNOUNCEMENT AT [email or web address] RISK RATIO LDL/HDL (test code = 2238) 3.56 RATIO <3.22 H UNLESS OTHERW ISE INDICATED, ALL TESTING PERFORMED [facility] [address] [place] [address] SELLING SPECIALIST: CECILIA CORNELL M.D. CLIA NUMBER [id number] [place]. [id number] HEMOGLOBIN [id number] 03:43:43* Test Item Value Reference Range Interpretation Comme nts HEMOGLOBIN A1c (test code = 87609) 5.7 % 4.2-5.6 H CBC W/AUTO DIFF WITH [id number] 03:13:23* Test Item Value Reference Range Interpretation [...] 0.00-0.10 ABS NUCLEATED RBCS (test code = 83612) 0.00 K/UL 0.00-0.11 TSH, THIRD [id number] 06:19:29* Test Item Value Reference Range Interpretation Comme nts TSH, THIRD GENERATION (test code = 2821) 1.070 UIU/ML 0.400-4.100 COMPREHENSIVE METABOLIC [id number] 05:14:19* Test Item Value Reference Range Interpretation Comme nts GLUCOSE (test code = 2217) 96 MG/DL 70-99 BUN (test code = 2208) 17 MG/DL 6-20 CREATININE (test code = 2214) 1.20 MG/DL 0.60-1.30 eGFR (2020 CKD-EPI) (test code = 64956) 58 ML/MIN/1.73 >60 L CALC BUN/CREAT (test code = 2235) 14 [...] G/DL 3.5-5.2 CALC GLOBULIN (test code = 0) 3.4 G/DL 1.9-3.7 CALC A/G RATIO (test [...] 25 U/L 9-40 ALT (test code = 9) 21 U/L 5-40 LIPID [id number] 05:14:19* Test Item Value Reference Range Interpretation Comme nts CHOLESTEROL (test code = 0) 281 MG/DL <200 H TRIGLYCERIDES (test code = 2) 178 MG/DL <150 H HDL CHOLESTEROL (test code = 2219) 61 MG/DL >39 CALC LDL CHOL (test code = 2236) 185 MG/DL <100 H NOTE: CALCULATED LDL IS BASED ON LESLY-GRECO METHOD WHICHINCLUDES ADJUSTABLE TRIGLYCERIDE:VLDL CHOLESTEROL RATIO.THIS FACTOR VARIES BY MEASURED TRIGLYCERIDE AND NON-HDLCHOLESTEROL CONCENTRATIONS WITH INCREASED CALCULATED LDL SEENIN HIGHER TRIGLYCERIDE OR LOWER NON-HDL SPECIMENS. FOR MOREINFORMATION, SEE CLIENT ANNOUNCEMENT AT [email or web address] RISK RATIO LDL/HDL (test code = 2238) 3.03 RATIO <3.22 HEMOGLOBIN [id number] 02:42:04* Test Item Value Reference Range Interpretation Comme nts HEMOGLOBIN A1c (test code = 47411) 5.5 % 4.2-5.6 UNLESS OTHERWISE INDICATED, ALL TESTING PERFORMED [facility] [address] [place] [address] SELLING SPECIALIST: CECILIA CORNELL M.D. CLIA NUMBER [id number] [place]. [id number] LIPID [id number] 00:00:00* Test Item Value Reference Range Interpretation Comme nts CHOLESTEROL (test code = 2210) 281 MG/DL TRIGLYCERIDES (test code = 2232) 178 MG/DL HDL CHOLESTEROL (test code = 2220) 61 MG/DL CALC LDL CHOL (test code = 2237) 185 MG/DL RISK RATIO LDL/HDL (test cod e = 2238) 3.03 RATIO Juan [id number] 00:00:00* Test Item Value Reference Range Interpretation Comme nts TSH, THIRD GENERATION (test code = 2821) 1.070 UIU/ML Juan SantanaHEMOGLOBIN [id number] 00:00:00* Test Item Value Reference Range Interpretation Comme nts HEMOGLOBIN A1c (test code = 51133) 5.5 % Juan SantanaCOMPREHENSIVE METABOLIC [id number] 00:00:00* Test Item Value Reference Range Interpretation Comme nts GLUCOSE (test code = 2217) 96 MG/DL BUN (test code = 2208) 17 MG/DL CREATININE (test code = 2214) 1.20 MG/DL eGFR (2020 CKD-EPI) (test co de = 41789) 58 ML/MIN/1.73 CALC BUN/CREAT (test code = [...] (test code = 2219) 21 U/L Juan SantanaCOMPREHENSIVE METABOLIC [id number] 00:00:00* Test Item Value Reference Range Interpretation Comme nts GLUCOSE (test code = 2217) 96 MG/DL BUN (test code = 2208) 17 MG/DL CREATININE (test code = 2214) 1.20 MG/DL eGFR (2020 CKD-EPI) (test co de = 84932) 58 ML/MIN/1.73 CALC BUN/CREAT (test code = [...] code = 2219) 21 U/L Juan SantanaLIPID [id number] 00:00:00* Test Item Value Reference Range Interpretation Comme nts CHOLESTEROL (test code = 2210) 281 MG/DL TRIGLYCERIDES (test code = 2232) 178 MG/DL HDL CHOLESTEROL (test code = 2220) 61 MG/DL CALC LDL CHOL (test code = 2237) 185 MG/DL RISK RATIO LDL/HDL (test cod e = 2238) 3.03 RATIO Juan [id number] 00:00:00* Test Item Value Reference Range Interpretation Comme [facility] TSH, THIRD GENERATION (test code = 2821) 1.070 UIU/ML Juan SantanaHEMOGLOBIN [id number] 00:00:00* Test Item Value Reference Range Interpretation Comme [facility] HEMOGLOBIN A1c (test code = 00017) 5.5 % Juan SantanaCOMPREHENSIVE METABOLIC [id number] 00:00:00* Test Item Value Reference Range Interpretation Comme nts GLUCOSE (test code = 2217) 96 MG/DL BUN (test code = 2208) 17 MG/DL CREATININE (test code = 2214) 1.20 MG/DL eGFR (2020 CKD-EPI) (test co de = 24329) 58 ML/MIN/1.73 CALC BUN/CREAT (test code = [...] code = 2219) 21 U/L Juan SantanaLIPID [id number] 00:00:00* Test Item Value Reference Range Interpretation Comme nts CHOLESTEROL (test code = 2210) 281 MG/DL TRIGLYCERIDES (test code = 2232) 178 MG/DL HDL CHOLESTEROL (test code = 2220) 61 MG/DL CALC LDL CHOL (test code = 2237) 185 MG/DL RISK RATIO LDL/HDL (test cod e = 2238) 3.03 RATIO Juan SantanaLIPID [id number] 00:00:00* Test Item Value Reference Range Interpretation Comme nts CHOLESTEROL (test code = 2210) 281 MG/DL TRIGLYCERIDES (test code = 2232) 178 MG/DL HDL CHOLESTEROL (test code = 2220) 61 MG/DL CALC LDL CHOL (test code = 2237) 185 MG/DL RISK RATIO LDL/HDL (test cod e = 2238) 3.03 RATIO Juan [id number] 00:00:00* Test Item Value Reference Range Interpretation Comme nts TSH, THIRD GENERATION (test code = 2821) 1.070 UIU/ML Juan SantanaHEMOGLOBIN [id number] 00:00:00* Test Item Value Reference Range Interpretation Comme oneal HEMOGLOBIN A1c (test code = 52376) 5.5 % Juan SantanaCOMPREHENSIVE METABOLIC [id number] 00:00:00* Test Item Value Reference Range Interpretation Comme nts GLUCOSE (test code = 2217) 96 MG/DL BUN (test code = 2208) 17 MG/DL CREATININE (test code = 2214) 1.20 MG/DL eGFR (2020 CKD-EPI) (test co de = 98647) 58 ML/MIN/1.73 CALC BUN/CREAT (test code = [...] (test code = 2219) 21 U/L Juan [id number] 00:00:00* Test Item Value Reference Range Interpretation Comme oneal TSH, THIRD GENERATION (test code = 2821) 1.070 UIU/ML Juan SantanaLIPID [id number] 00:00:00* Test Item Value Reference Range Interpretation Comme nts CHOLESTEROL (test code = 2210) 281 MG/DL TRIGLYCERIDES (test code = 2232) 178 MG/DL HDL CHOLESTEROL (test code = 2220) 61 MG/DL CALC LDL CHOL (test code = 2237) 185 MG/DL RISK RATIO LDL/HDL (test cod e = 2238) 3.03 RATIO Juan [id number] 00:00:00* Test Item Value Reference Range Interpretation Comme oneal TSH, THIRD GENERATION (test code = 2821) 1.070 UIU/ML Juan SantanaHEMOGLOBIN [id number] 00:00:00* Test Item Value Reference Range Interpretation Comme nts HEMOGLOBIN A1c (test code = 51348) 5.5 % Juan SantanaHEMOGLOBIN [id number] 00:00:00* Test Item Value Reference Range Interpretation Comme oneal HEMOGLOBIN A1c (test code = 16945) 5.5 % Juan SantanaCOMPREHENSIVE METABOLIC [id number] 00:00:00* Test Item Value Reference Range Interpretation Comme nts GLUCOSE (test code = 2217) 96 MG/DL BUN (test code = 2208) 17 MG/DL CREATININE (test code = 2214) 1.20 MG/DL eGFR (2020 CKD-EPI) (test co de = 96990) 58 ML/MIN/1.73 CALC BUN/CREAT (test code = [...] code = 2219) 21 U/L Juan SantanaLIPID [id number] 00:00:00* Test Item Value Reference Range Interpretation Comme nts CHOLESTEROL (test code = 2210) 281 MG/DL TRIGLYCERIDES (test code = 2232) 178 MG/DL HDL CHOLESTEROL (test code = 2220) 61 MG/DL CALC LDL CHOL (test code = 2237) 185 MG/DL RISK RATIO LDL/HDL (test cod e = 2238) 3.03 RATIO Juan [id number] 00:00:00* Test Item Value Reference Range Interpretation Comme nts TSH, THIRD GENERATION (test code = 2821) 1.070 UIU/ML Juan SantanaHEMOGLOBIN [id number] 00:00:00* Test Item Value Reference Range Interpretation Comme nts HEMOGLOBIN A1c (test code = 09274) 5.5 % Juan SantanaCOMPREHENSIVE METABOLIC [id number] 00:00:00* Test Item Value Reference Range Interpretation Comme nts GLUCOSE (test code = 2217) 96 MG/DL BUN (test code = 2208) 17 MG/DL CREATININE (test code = 2214) 1.20 MG/DL eGFR (2020 CKD-EPI) (test co de = 19226) 58 ML/MIN/1.73 CALC BUN/CREAT (test code = [...] code = 2219) 21 U/L Juan SantanaLIPID [id number] 00:00:00* Test Item Value Reference Range Interpretation Comme nts CHOLESTEROL (test code = 2210) 281 MG/DL TRIGLYCERIDES (test code = 2232) 178 MG/DL HDL CHOLESTEROL (test code = 2220) 61 MG/DL CALC LDL CHOL (test code = 2237) 185 MG/DL RISK RATIO LDL/HDL (test cod e = 2238) 3.03 RATIO Juan [id number] 00:00:00* Test Item Value Reference Range Interpretation Comme nts TSH, THIRD GENERATION (test code = 2821) 1.070 UIU/ML Juan SantanaHEMOGLOBIN [id number] 00:00:00* Test Item Value Reference Range Interpretation Comme oneal HEMOGLOBIN A1c (test code = 97015) 5.5 % Juan SantanaCOMPREHENSIVE METABOLIC [id number] 00:00:00* Test Item Value Reference Range Interpretation Comme nts GLUCOSE (test code = 2217) 96 MG/DL BUN (test code = 2208) 17 MG/DL CREATININE (test code = 2214) 1.20 MG/DL eGFR (2020 CKD-EPI) (test co de = 95374) 58 ML/MIN/1.73 CALC BUN/CREAT (test code = [...] code = 2219) 21 U/L Juan SantanaLIPID [id number] 00:00:00* Test Item Value Reference Range Interpretation Comme nts CHOLESTEROL (test code = 2210) 281 MG/DL TRIGLYCERIDES (test code = 2232) 178 MG/DL HDL CHOLESTEROL (test code = 2220) 61 MG/DL CALC LDL CHOL (test code = 2237) 185 MG/DL RISK RATIO LDL/HDL (test cod e = 2238) 3.03 RATIO Juan [id number] 00:00:00* Test Item Value Reference Range Interpretation Comme oneal TSH, THIRD GENERATION (test code = 2821) 1.070 UIU/ML Juan SantanaHEMOGLOBIN [id number] 00:00:00* Test Item Value Reference Range Interpretation Comme nts HEMOGLOBIN A1c (test code = 01146) 5.5 % Juan SantanaCOMPREHENSIVE METABOLIC [id number] 00:00:00* Test Item Value Reference Range Interpretation Comme nts GLUCOSE (test code = 2217) 96 MG/DL BUN (test code = 2208) 17 MG/DL CREATININE (test code = 2214) 1.20 MG/DL eGFR (2020 CKD-EPI) (test co de = 57327) 58 ML/MIN/1.73 CALC BUN/CREAT (test code = [...] (test code = 2219) 21 U/L Juan SatnanaLIPID [id number] 00:00:00* Test Item Value Reference Range Interpretation Comme nts CHOLESTEROL (test code = 2210) 281 MG/DL TRIGLYCERIDES (test code = 2232) 178 MG/DL HDL CHOLESTEROL (test code = 2220) 61 MG/DL CALC LDL CHOL (test code = 2237) 185 MG/DL RISK RATIO LDL/HDL (test cod e = 2238) 3.03 RATIO Juan [id number] 00:00:00* Test Item Value Reference Range Interpretation Comme nts TSH, THIRD GENERATION (test code = 2821) 1.070 UIU/ML Juan SantanaHEMOGLOBIN [id number] 00:00:00* Test Item Value Reference Range Interpretation Comme nts HEMOGLOBIN A1c (test code = 66413) 5.5 % Juan Richard AustinCOMPREHENSIVE METABOLIC [id number] 00:00:00* Test Item Value Reference Range Interpretation Comme nts GLUCOSE (test code = 2217) 96 MG/DL BUN (test code = 2208) 17 MG/DL CREATININE (test code = 2214) 1.20 MG/DL eGFR (2020 CKD-EPI) (test co de = 94676) 58 ML/MIN/1.73 CALC BUN/CREAT (test code = [...] code = 2219) 21 U/L Juan SantanaLIPID [id number] 00:00:00* Test Item Value Reference Range Interpretation Comme nts CHOLESTEROL (test code = 2210) 281 MG/DL TRIGLYCERIDES (test code = 2232) 178 MG/DL HDL CHOLESTEROL (test code = 2220) 61 MG/DL CALC LDL CHOL (test code = 2237) 185 MG/DL RISK RATIO LDL/HDL (test cod e = 2238) 3.03 RATIO Juan Richard [id number] 00:00:00* Test Item Value Reference Range Interpretation Comme nts TSH, THIRD GENERATION (test code = 2821) 1.070 UIU/ML Juan SantanaHEMOGLOBIN [id number] 00:00:00* Test Item Value Reference Range Interpretation Comme nts HEMOGLOBIN A1c (test code = 47887) 5.5 % Juan SantanaCOMPREHENSIVE METABOLIC [id number] 00:00:00* Test Item Value Reference Range Interpretation Comme nts GLUCOSE (test code = 2217) 96 MG/DL BUN (test code = 2208) 17 MG/DL CREATININE (test code = 2214) 1.20 MG/DL eGFR (2020 CKD-EPI) (test co de = 15219) 58 ML/MIN/1.73 CALC BUN/CREAT (test code = [...] code = 2219) 21 U/L Juan SantanaLIPID [id number] 00:00:00* Test Item Value Reference Range Interpretation Comme nts CHOLESTEROL (test code = 2210) 281 MG/DL TRIGLYCERIDES (test code = 2232) 178 MG/DL HDL CHOLESTEROL (test code = 2220) 61 MG/DL CALC LDL CHOL (test code = 2237) 185 MG/DL RISK RATIO LDL/HDL (test cod e = 2238) 3.03 RATIO Juan [id number] 00:00:00* Test Item Value Reference Range Interpretation Comme nts TSH, THIRD GENERATION (test code = 2821) 1.070 UIU/ML Juan SantanaHEMOGLOBIN [id number] 00:00:00* Test Item Value Reference Range Interpretation Comme nts HEMOGLOBIN A1c (test code = 55802) 5.5 % Juan SantanaCOMPREHENSIVE METABOLIC [id number] 00:00:00* Test Item Value Reference Range Interpretation Comme nts GLUCOSE (test code = 2217) 96 MG/DL BUN (test code = 2208) 17 MG/DL CREATININE (test code = 2214) 1.20 MG/DL eGFR (2020 CKD-EPI) (test co de = 98754) 58 ML/MIN/1.73 CALC BUN/CREAT (test code = [...] code = 2219) 21 U/L Juan SantanaLIPID [id number] 00:00:00* Test Item Value Reference Range Interpretation Comme nts CHOLESTEROL (test code = 2210) 281 MG/DL TRIGLYCERIDES (test code = 2232) 178 MG/DL HDL CHOLESTEROL (test code = 2220) 61 MG/DL CALC LDL CHOL (test code = 2237) 185 MG/DL RISK RATIO LDL/HDL (test cod e = 2238) 3.03 RATIO Juan [id number] 00:00:00* Test Item Value Reference Range Interpretation Comme nts TSH, THIRD GENERATION (test code = 2821) 1.070 UIU/ML Juan SantanaHEMOGLOBIN [id number] 00:00:00* Test Item Value Reference Range Interpretation Comme nts HEMOGLOBIN A1c (test code = 10683) 5.5 % Juan SantanaCOMPREHENSIVE METABOLIC [id number] 00:00:00* Test Item Value Reference Range Interpretation Comme nts GLUCOSE (test code = 2217) 96 MG/DL BUN (test code = 2208) 17 MG/DL CREATININE (test code = 2214) 1.20 MG/DL eGFR (2020 CKD-EPI) (test co de = 57136) 58 ML/MIN/1.73 CALC BUN/CREAT (test code = [...] code = 2219) 21 U/L Juan SantanaLIPID [id number] 00:00:00* Test Item Value Reference Range Interpretation Comme nts CHOLESTEROL (test code = 2210) 281 MG/DL TRIGLYCERIDES (test code = 2232) 178 MG/DL HDL CHOLESTEROL (test code = 2220) 61 MG/DL CALC LDL CHOL (test code = 2237) 185 MG/DL RISK RATIO LDL/HDL (test cod e = 2238) 3.03 RATIO Juan [id number] 00:00:00* Test Item Value Reference Range Interpretation Comme nts TSH, THIRD GENERATION (test code = 2821) 1.070 UIU/ML Juan SantanaHEMOGLOBIN [id number] 00:00:00* Test Item Value Reference Range Interpretation Comme nts HEMOGLOBIN A1c (test code = 25562) 5.5 % Juan SantanaCOMPREHENSIVE METABOLIC [id number] 00:00:00* Test Item Value Reference Range Interpretation Comme nts GLUCOSE (test code = 2217) 96 MG/DL BUN (test code = 2208) 17 MG/DL CREATININE (test code = 2214) 1.20 MG/DL eGFR (2020 CKD-EPI) (test co de = 35930) 58 ML/MIN/1.73 CALC BUN/CREAT (test code = [...] code = 2219) 21 U/L Juan SantanaLIPID [id number] 00:00:00* Test Item Value Reference Range Interpretation Comme nts CHOLESTEROL (test code = 2210) 281 MG/DL TRIGLYCERIDES (test code = 2232) 178 MG/DL HDL CHOLESTEROL (test code = 2220) 61 MG/DL CALC LDL CHOL (test code = 2237) 185 MG/DL RISK RATIO LDL/HDL (test cod e = 2238) 3.03 RATIO Juan [id number] 00:00:00* Test Item Value Reference Range Interpretation Comme nts TSH, THIRD GENERATION (test code = 2821) 1.070 UIU/ML Jaun SantanaHEMOGLOBIN [id number] 00:00:00* Test Item Value Reference Range Interpretation Comme nts HEMOGLOBIN A1c (test code = 91593) 5.5 % Juan SantanaCOMPREHENSIVE METABOLIC [id number] 00:00:00* Test Item Value Reference Range Interpretation Comme nts GLUCOSE (test code = 2217) 96 MG/DL BUN (test code = 2208) 17 MG/DL CREATININE (test code = 2214) 1.20 MG/DL eGFR (2020 CKD-EPI) (test co de = 65913) 58 ML/MIN/1.73 CALC BUN/CREAT (test code = [...] code = 2219) 21 U/L Juan SantanaLIPID [id number] 00:00:00* Test Item Value Reference Range Interpretation Comme nts CHOLESTEROL (test code = 2210) 281 MG/DL TRIGLYCERIDES (test code = 2232) 178 MG/DL HDL CHOLESTEROL (test code = 2220) 61 MG/DL CALC LDL CHOL (test code = 2237) 185 MG/DL RISK RATIO LDL/HDL (test cod e = 2238) 3.03 RATIO Juan [id number] 00:00:00* Test Item Value Reference Range Interpretation Comme oneal TSH, THIRD GENERATION (test code = 2821) 1.070 UIU/ML Juan SantnaaHEMOGLOBIN [id number] 00:00:00* Test Item Value Reference Range Interpretation Comme oneal HEMOGLOBIN A1c (test code = 72239) 5.5 % Juan SantanaCOMPREHENSIVE METABOLIC [id number] 00:00:00* Test Item Value Reference Range Interpretation Comme nts GLUCOSE (test code = 2217) 96 MG/DL BUN (test code = 2208) 17 MG/DL CREATININE (test code = 2214) 1.20 MG/DL eGFR (2020 CKD-EPI) (test co de = 80877) 58 ML/MIN/1.73 CALC BUN/CREAT (test code = [...] code = 2219) 21 U/L Juan SantanaLIPID [id number] 00:00:00* Test Item Value Reference Range Interpretation Comme nts CHOLESTEROL (test code = 2210) 281 MG/DL TRIGLYCERIDES (test code = 2232) 178 MG/DL HDL CHOLESTEROL (test code = 2220) 61 MG/DL CALC LDL CHOL (test code = 2237) 185 MG/DL RISK RATIO LDL/HDL (test cod e = 2238) 3.03 RATIO Juan [id number] 00:00:00* Test Item Value Reference Range Interpretation Comme nts TSH, THIRD GENERATION (test code = 2821) 1.070 UIU/ML Juan SantanaHEMOGLOBIN [id number] 00:00:00* Test Item Value Reference Range Interpretation Comme nts HEMOGLOBIN A1c (test code = 43879) 5.5 % Juan SantanaCOMPREHENSIVE METABOLIC [id number] 00:00:00* Test Item Value Reference Range Interpretation Comme nts GLUCOSE (test code = 2217) 96 MG/DL BUN (test code = 2208) 17 MG/DL CREATININE (test code = 2214) 1.20 MG/DL eGFR (2020 CKD-EPI) (test co de = 05930) 58 ML/MIN/1.73 CALC BUN/CREAT (test code = [...] (test code = 2219) 21 U/L Juan Richard AustinLIPID [id number] 00:00:00* Test Item Value Reference Range Interpretation Comme nts CHOLESTEROL (test code = 2210) 281 MG/DL TRIGLYCERIDES (test code = 2232) 178 MG/DL HDL CHOLESTEROL (test code = 2220) 61 MG/DL CALC LDL CHOL (test code = 2237) 185 MG/DL RISK RATIO LDL/HDL (test cod e = 2238) 3.03 RATIO [id number] 00:00:00* Test Item Value Reference Range Interpretation Comme nts TSH, THIRD GENERATION (test code = 2821) 1.070 UIU/ML HEMOGLOBIN [id number] 00:00:00* Test Item Value Reference Range Interpretation Comme nts HEMOGLOBIN A1c (test code = 01806) 5.5 % COMPREHENSIVE METABOLIC [id number] 00:00:00* Test Item Value Reference Range Interpretation Comme nts GLUCOSE (test code = 2217) 96 MG/DL BUN (test code = 2208) 17 MG/DL CREATININE (test code = 2214) 1.20 MG/DL eGFR (2020 CKD-EPI) (test co de = 31954) 58 ML/MIN/1.73 CALC BUN/CREAT (test code = [...] (test code = 2219) 21 U/L LIPID [id number] 00:00:00* Test Item Value Reference Range Interpretation Comme nts CHOLESTEROL (test code = 2210) 281 MG/DL TRIGLYCERIDES (test code = 2232) 178 MG/DL HDL CHOLESTEROL (test code = 2220) 61 MG/DL CALC LDL CHOL (test code = 2237) 185 MG/DL RISK RATIO LDL/HDL (test cod e = 2238) 3.03 RATIO [id number] 00:00:00* Test Item Value Reference Range Interpretation Comme nts TSH, THIRD GENERATION (test code = 2821) 1.070 UIU/ML HEMOGLOBIN [id number] 00:00:00* Test Item Value Reference Range Interpretation Comme nts HEMOGLOBIN A1c (test code = 88066) 5.5 % COMPREHENSIVE METABOLIC [id number] 00:00:00* Test Item Value Reference Range Interpretation Comme nts GLUCOSE (test code = 2217) 96 MG/DL BUN (test code = 2208) 17 MG/DL CREATININE (test code = 2214) 1.20 MG/DL eGFR (2020 CKD-EPI) (test co de = 21839) 58 ML/MIN/1.73 CALC BUN/CREAT (test code = [...] 2219) 21 U/L CBC W/AUTO DIFF WITH [id number] 06:15:32* Test Item Value Reference Range Interpretation [...] 0.00-0.10 ABS NUCLEATED RBCS (test code = 25682) 0.00 K/UL 0.00-0.11 ALBUMIN, URINE, [id number] 05:20:38* Test Item Value Reference Range Interpretation Comme nts ALBUMIN, URINE, RANDOM (test code = 07050) 4.6 MG/DL NOT ESTAB UNLESS OTHERWISE INDICATED, ALL TESTING PERFORMED [facility] [address] [place] [address] SELLING SPECIALIST: CECILIA CORNELL M.D. CLIA NUMBER [id number] [place]. [id number] LIPID [id number] 04:45:32* Test Item Value Reference Range Interpretation [...] SPECIMENS. FOR MOREINFORMATION, SEE CLIENT ANNOUNCEMENT AT [email or web address] RISK RATIO LDL/HDL (test code = 2238) 2.54 RATIO <3.22 COMPREHENSIVE METABOLIC [id number] 04:45:32* Test Item Value Reference Range Interpretation Comme nts GLUCOSE (test code = 2217) 100 MG/DL 70-99 H BUN (test code = 220) 16 MG/DL 6-20 CREATININE (test code = 2214) 1.15 MG/DL 0.60-1.30 eGFR (2020 CKD-EPI) (test code = 41795) 62 ML/MIN/1.73 >60 CALC BUN/CREAT (test code = 2235) 14 RATIO 6-28 SODIUM (test code = 223) 138 MEQ/L 133-146 POTASSIUM (test code = 2228) 4.2 MEQ/L 3.5-5.4 CHLORIDE (test code = 2215) 98 MEQ/L 95-107 CARBON DIOXIDE (test code = 2206) 25 MEQ/L 19-31 CALCIUM (test code = 2209) 10.0 MG/DL 8.5-10.5 PROTEIN, TOTAL (test code = 2228) 8.1 G/DL 6.1-8.3 ALBUMIN (test code = 2200) [...] normal/abnormal. ALKALINE PHOSPHATASE (test code = 2203) 106 U/L 40-112 AST (test code = 2218) 20 U/L 9-40 ALT (test code = 2219) 14 U/L 5-40 CBC W/AUTO [id number] 00:00:00* Test Item Value Reference Range Interpretation [...] ABS NUCLEATED RBCS (test cod e = 23308) 0.00 K/UL Juan SantanaLIPID [id number] 00:00:00* Test Item Value Reference Range Interpretation Comme nts CHOLESTEROL (test code = 2210) 243 MG/DL TRIGLYCERIDES (test code = 2232) 195 MG/DL HDL CHOLESTEROL (test code = 2220) 59 MG/DL CALC LDL CHOL (test code = 2237) 150 MG/DL RISK RATIO LDL/HDL (test cod e = 2238) 2.54 RATIO Juan SantanaCOMPREHENSIVE METABOLIC [id number] 00:00:00* Test Item Value Reference Range Interpretation Comme nts GLUCOSE (test code = 2217) 100 MG/DL BUN (test code = 2208) 16 MG/DL CREATININE (test code = 2214) 1.15 MG/DL eGFR (2020 CKD-EPI) (test co de = 14076) 62 ML/MIN/1.73 CALC BUN/CREAT (test code = [...] code = 2219) 14 U/L Juan SantanaMICROALBUMIN, [id number] 00:00:00* Test Item Value Reference Range Interpretation Comme nts ALBUMIN, URINE, RANDOM (test code = 11837) 4.6 MG/DL Juan SantanaCBC W/AUTO [id number] 00:00:00* Test Item Value Reference Range Interpretation [...] ABS NUCLEATED RBCS (test cod e = 80012) 0.00 K/UL Juan Richard AustinLIPID [id number] 00:00:00* Test Item Value Reference Range Interpretation Comme nts CHOLESTEROL (test code = 2210) 243 MG/DL TRIGLYCERIDES (test code = 2232) 195 MG/DL HDL CHOLESTEROL (test code = 2220) 59 MG/DL CALC LDL CHOL (test code = 2237) 150 MG/DL RISK RATIO LDL/HDL (test cod e = 2238) 2.54 RATIO Juan SantanaCOMPREHENSIVE METABOLIC [id number] 00:00:00* Test Item Value Reference Range Interpretation Comme nts GLUCOSE (test code = 2217) 100 MG/DL BUN (test code = 2208) 16 MG/DL CREATININE (test code = 2214) 1.15 MG/DL eGFR (2020 CKD-EPI) (test co de = 97729) 62 ML/MIN/1.73 CALC BUN/CREAT (test code = [...] code = 2219) 14 U/L Juan SantanaMICROALBUMIN, [id number] 00:00:00* Test Item Value Reference Range Interpretation Comme nts ALBUMIN, URINE, RANDOM (test code = 32077) 4.6 MG/DL Juan SantanaLIPID [id number] 00:00:00* Test Item Value Reference Range Interpretation Comme nts CHOLESTEROL (test code = 2210) 243 MG/DL TRIGLYCERIDES (test code = 2232) 195 MG/DL HDL CHOLESTEROL (test code = 2220) 59 MG/DL CALC LDL CHOL (test code = 2237) 150 MG/DL RISK RATIO LDL/HDL (test cod e = 2238) 2.54 RATIO Juan SantanaCBC W/AUTO [id number] 00:00:00* Test Item Value Reference Range Interpretation [...] ABS NUCLEATED RBCS (test cod e = 07272) 0.00 K/UL Juan Richard MaxLIPID [id number] 00:00:00* Test Item Value Reference Range Interpretation Comme nts CHOLESTEROL (test code = 2210) 243 MG/DL TRIGLYCERIDES (test code = 2232) 195 MG/DL HDL CHOLESTEROL (test code = 2220) 59 MG/DL CALC LDL CHOL (test code = 2237) 150 MG/DL RISK RATIO LDL/HDL (test cod e = 2238) 2.54 RATIO Juan SantanaCOMPREHENSIVE METABOLIC [id number] 00:00:00* Test Item Value Reference Range Interpretation Comme nts GLUCOSE (test code = 2217) 100 MG/DL BUN (test code = 2208) 16 MG/DL CREATININE (test code = 2214) 1.15 MG/DL eGFR (2020 CKD-EPI) (test co de = 28901) 62 ML/MIN/1.73 CALC BUN/CREAT (test code = [...] code = 2219) 14 U/L Juan SantanaMICROALBUMIN, [id number] 00:00:00* Test Item Value Reference Range Interpretation Comme nts ALBUMIN, URINE, RANDOM (test code = 86730) 4.6 MG/DL Juan SantanaCBC W/AUTO [id number] 00:00:00* Test Item Value Reference Range Interpretation [...] ABS NUCLEATED RBCS (test cod e = 04485) 0.00 K/UL Juan SantanaLIPID [id number] 00:00:00* Test Item Value Reference Range Interpretation Comme nts CHOLESTEROL (test code = 2210) 243 MG/DL TRIGLYCERIDES (test code = 2232) 195 MG/DL HDL CHOLESTEROL (test code = 2220) 59 MG/DL CALC LDL CHOL (test code = 2237) 150 MG/DL RISK RATIO LDL/HDL (test cod e = 2238) 2.54 RATIO Juan SantanaCOMPREHENSIVE METABOLIC [id number] 00:00:00* Test Item Value Reference Range Interpretation Comme nts GLUCOSE (test code = 2217) 100 MG/DL BUN (test code = 2208) 16 MG/DL CREATININE (test code = 2214) 1.15 MG/DL eGFR (2020 CKD-EPI) (test co de = 25937) 62 ML/MIN/1.73 CALC BUN/CREAT (test code = [...] (test code = 2219) 14 U/L Juan SantanaCOMPREHENSIVE METABOLIC [id number] 00:00:00* Test Item Value Reference Range Interpretation Comme nts GLUCOSE (test code = 2217) 100 MG/DL BUN (test code = 2208) 16 MG/DL CREATININE (test code = 2214) 1.15 MG/DL eGFR (2020 CKD-EPI) (test co de = 11760) 62 ML/MIN/1.73 CALC BUN/CREAT (test code = [...] code = 2219) 14 U/L Juan SantanaMICROALBUMIN, [id number] 00:00:00* Test Item Value Reference Range Interpretation Comme nts ALBUMIN, URINE, RANDOM (test code = 79877) 4.6 MG/DL Juan SantanaCBC W/AUTO [id number] 00:00:00* Test Item Value Reference Range Interpretation [...] ABS NUCLEATED RBCS (test cod e = 23820) 0.00 K/UL Juan SantanaMICROALBUMIN, [id number] 00:00:00* Test Item Value Reference Range Interpretation Comme nts ALBUMIN, URINE, RANDOM (test code = 85436) 4.6 MG/DL Juan SantanaLIPID [id number] 00:00:00* Test Item Value Reference Range Interpretation Comme nts CHOLESTEROL (test code = 2210) 243 MG/DL TRIGLYCERIDES (test code = 2232) 195 MG/DL HDL CHOLESTEROL (test code = 2220) 59 MG/DL CALC LDL CHOL (test code = 2237) 150 MG/DL RISK RATIO LDL/HDL (test cod e = 2238) 2.54 RATIO Juan SantanaCOMPREHENSIVE METABOLIC [id number] 00:00:00* Test Item Value Reference Range Interpretation Comme nts GLUCOSE (test code = 2217) 100 MG/DL BUN (test code = 2208) 16 MG/DL CREATININE (test code = 2214) 1.15 MG/DL eGFR (2020 CKD-EPI) (test co de = 04363) 62 ML/MIN/1.73 CALC BUN/CREAT (test code = [...] code = 2219) 14 U/L Juan SantanaMICROALBUMIN, [id number] 00:00:00* Test Item Value Reference Range Interpretation Comme nts ALBUMIN, URINE, RANDOM (test code = 62811) 4.6 MG/DL Juan SantanaCBC W/AUTO [id number] 00:00:00* Test Item Value Reference Range Interpretation [...] ABS NUCLEATED RBCS (test cod e = 46118) 0.00 K/UL Juan SantanaLIPID [id number] 00:00:00* Test Item Value Reference Range Interpretation Comme nts CHOLESTEROL (test code = 2210) 243 MG/DL TRIGLYCERIDES (test code = 2232) 195 MG/DL HDL CHOLESTEROL (test code = 2220) 59 MG/DL CALC LDL CHOL (test code = 2237) 150 MG/DL RISK RATIO LDL/HDL (test cod e = 2238) 2.54 RATIO Juan SantanaCOMPREHENSIVE METABOLIC [id number] 00:00:00* Test Item Value Reference Range Interpretation Comme nts GLUCOSE (test code = 2217) 100 MG/DL BUN (test code = 2208) 16 MG/DL CREATININE (test code = 2214) 1.15 MG/DL eGFR (2020 CKD-EPI) (test co de = 81447) 62 ML/MIN/1.73 CALC BUN/CREAT (test code = 2235) 14 RATIO SODIUM (test code = 2231) 138 MEQ/L POTASSIUM (test code = 2228) 4.2 MEQ/L CHLORIDE (test code = 2215) 98 MEQ/L CARBON DIOXIDE (test code = 2206) 25 MEQ/L CALCIUM (test code = 2209) 10.0 MG/DL PROTEIN, TOTAL (test code = 2229) 8.1 G/DL ALBUMIN (test code = 220) 4.7 G/DL CALC GLOBULIN (test code = 2240) 3.4 G/DL CALC A/G RATIO (test code = 2234) 1.4 RATIO BILIRUBIN, TOTAL (test code = 2207) 0.6 MG/DL ALKALINE PHOSPHATASE (test code = 2204) 106 U/L AST (test code = 2218) 20 U/L ALT (test code = 2219) 14 U/L Juan SantanaMICROALBUMIN, [id number] 00:00:00* Test Item Value Reference Range Interpretation Comme [facility] ALBUMIN, URINE, RANDOM (test code = 39551) 4.6 MG/DL Juan SantanaCBC W/AUTO [id number] 00:00:00* Test Item Value Reference Range Interpretation Comme [facility] WBC (test code = 1001) 5.4 K/UL [...] ABS NUCLEATED RBCS (test cod e = 50403) 0.00 K/UL Juan Richard AustinLIPID [id number] 00:00:00* Test Item Value Reference Range Interpretation Comme nts CHOLESTEROL (test code = 2210) 243 MG/DL TRIGLYCERIDES (test code = 2232) 195 MG/DL HDL CHOLESTEROL (test code = 2220) 59 MG/DL CALC LDL CHOL (test code = 2237) 150 MG/DL RISK RATIO LDL/HDL (test cod e = 2238) 2.54 RATIO Juan SantanaCOMPREHENSIVE METABOLIC [id number] 00:00:00* Test Item Value Reference Range Interpretation Comme nts GLUCOSE (test code = 2217) 100 MG/DL BUN (test code = 2208) 16 MG/DL CREATININE (test code = 2214) 1.15 MG/DL eGFR (2020 CKD-EPI) (test co de = 07019) 62 ML/MIN/1.73 CALC BUN/CREAT (test code = [...] code = 2219) 14 U/L Juan SantanaMICROALBUMIN, [id number] 00:00:00* Test Item Value Reference Range Interpretation Comme nts ALBUMIN, URINE, RANDOM (test code = 46731) 4.6 MG/DL Juan SantanaCBC W/AUTO [id number] 00:00:00* Test Item Value Reference Range Interpretation [...] ABS NUCLEATED RBCS (test cod e = 23608) 0.00 K/UL Juan SantanaLIPID [id number] 00:00:00* Test Item Value Reference Range Interpretation Comme nts CHOLESTEROL (test code = 2210) 243 MG/DL TRIGLYCERIDES (test code = 2232) 195 MG/DL HDL CHOLESTEROL (test code = 2220) 59 MG/DL CALC LDL CHOL (test code = 2237) 150 MG/DL RISK RATIO LDL/HDL (test cod e = 2238) 2.54 RATIO Juan SantanaCOMPREHENSIVE METABOLIC [id number] 00:00:00* Test Item Value Reference Range Interpretation Comme nts GLUCOSE (test code = 2217) 100 MG/DL BUN (test code = 2208) 16 MG/DL CREATININE (test code = 2214) 1.15 MG/DL eGFR (2020 CKD-EPI) (test co de = 70017) 62 ML/MIN/1.73 CALC BUN/CREAT (test code = [...] code = 2219) 14 U/L Juan SantanaMICROALBUMIN, [id number] 00:00:00* Test Item Value Reference Range Interpretation Comme nts ALBUMIN, URINE, RANDOM (test code = 40465) 4.6 MG/DL Juan SantanaCBC W/AUTO [id number] 00:00:00* Test Item Value Reference Range Interpretation [...] ABS NUCLEATED RBCS (test cod e = 75853) 0.00 K/UL Juan Hilary AustinLIPID [id number] 00:00:00* Test Item Value Reference Range Interpretation Comme nts CHOLESTEROL (test code = 2210) 243 MG/DL TRIGLYCERIDES (test code = 2232) 195 MG/DL HDL CHOLESTEROL (test code = 2220) 59 MG/DL CALC LDL CHOL (test code = 2237) 150 MG/DL RISK RATIO LDL/HDL (test cod e = 2238) 2.54 RATIO Juan SantanaCOMPREHENSIVE METABOLIC [id number] 00:00:00* Test Item Value Reference Range Interpretation Comme nts GLUCOSE (test code = 2217) 100 MG/DL BUN (test code = 2208) 16 MG/DL CREATININE (test code = 2214) 1.15 MG/DL eGFR (2020 CKD-EPI) (test co de = 55845) 62 ML/MIN/1.73 CALC BUN/CREAT (test code = [...] code = 2219) 14 U/L Juan SantanaMICROALBUMIN, [id number] 00:00:00* Test Item Value Reference Range Interpretation Comme nts ALBUMIN, URINE, RANDOM (test code = 38217) 4.6 MG/DL Juan SantanaCBC W/AUTO [id number] 00:00:00* Test Item Value Reference Range Interpretation [...] ABS NUCLEATED RBCS (test cod e = 73599) 0.00 K/UL Juan SantanaLIPID [id number] 00:00:00* Test Item Value Reference Range Interpretation Comme nts CHOLESTEROL (test code = 2210) 243 MG/DL TRIGLYCERIDES (test code = 2232) 195 MG/DL HDL CHOLESTEROL (test code = 2220) 59 MG/DL CALC LDL CHOL (test code = 2237) 150 MG/DL RISK RATIO LDL/HDL (test cod e = 2238) 2.54 RATIO Juan SantanaCOMPREHENSIVE METABOLIC [id number] 00:00:00* Test Item Value Reference Range Interpretation Comme nts GLUCOSE (test code = 2217) 100 MG/DL BUN (test code = 2208) 16 MG/DL CREATININE (test code = 2214) 1.15 MG/DL eGFR (2020 CKD-EPI) (test co de = 90073) 62 ML/MIN/1.73 CALC BUN/CREAT (test code = [...] code = 2219) 14 U/L Juan SantanaMICROALBUMIN, [id number] 00:00:00* Test Item Value Reference Range Interpretation Comme nts ALBUMIN, URINE, RANDOM (test code = 08622) 4.6 MG/DL Juan SantanaCBC W/AUTO [id number] 00:00:00* Test Item Value Reference Range Interpretation [...] ABS NUCLEATED RBCS (test cod e = 29098) 0.00 K/UL Juan Richard AustinLIPID [id number] 00:00:00* Test Item Value Reference Range Interpretation Comme nts CHOLESTEROL (test code = 2210) 243 MG/DL TRIGLYCERIDES (test code = 2232) 195 MG/DL HDL CHOLESTEROL (test code = 2220) 59 MG/DL CALC LDL CHOL (test code = 2237) 150 MG/DL RISK RATIO LDL/HDL (test cod e = 2238) 2.54 RATIO Juan SantanaCOMPREHENSIVE METABOLIC [id number] 00:00:00* Test Item Value Reference Range Interpretation Comme nts GLUCOSE (test code = 2217) 100 MG/DL BUN (test code = 2208) 16 MG/DL CREATININE (test code = 2214) 1.15 MG/DL eGFR (2020 CKD-EPI) (test co de = 43286) 62 ML/MIN/1.73 CALC BUN/CREAT (test code = 2235) 14 RATIO SODIUM (test code = 2231) 138 MEQ/L POTASSIUM (test code = 2228) 4.2 MEQ/L CHLORIDE (test code = 2215) 98 MEQ/L CARBON DIOXIDE (test code = 2206) 25 MEQ/L CALCIUM (test code = 2209) 10.0 MG/DL PROTEIN, TOTAL (test code = 2229) 8.1 G/DL ALBUMIN (test code = 220) 4.7 G/DL CALC GLOBULIN (test code = 2240) 3.4 G/DL CALC A/G RATIO (test code = 2234) 1.4 RATIO BILIRUBIN, TOTAL (test code = 2207) 0.6 MG/DL ALKALINE PHOSPHATASE (test code = 4) 106 U/L AST (test code = 2218) 20 U/L ALT (test code = 2219) 14 U/L Juan SantanaMICROALBUMIN, [id number] 00:00:00* Test Item Value Reference Range Interpretation Comme nts ALBUMIN, URINE, RANDOM (test code = 86592) 4.6 MG/DL Juan SantanaCBC W/AUTO [id number] 00:00:00* Test Item Value Reference Range Interpretation [...] ABS NUCLEATED RBCS (test cod e = 82838) 0.00 K/UL Juan SantanaLIPID [id number] 00:00:00* Test Item Value Reference Range Interpretation Comme nts CHOLESTEROL (test code = 2210) 243 MG/DL TRIGLYCERIDES (test code = 2232) 195 MG/DL HDL CHOLESTEROL (test code = 2220) 59 MG/DL CALC LDL CHOL (test code = 2237) 150 MG/DL RISK RATIO LDL/HDL (test cod e = 2238) 2.54 RATIO Juan Hilary MaxCOMPREHENSIVE METABOLIC [id number] 00:00:00* Test Item Value Reference Range Interpretation Comme nts GLUCOSE (test code = 2217) 100 MG/DL BUN (test code = 2208) 16 MG/DL CREATININE (test code = 2214) 1.15 MG/DL eGFR (2020 CKD-EPI) (test co de = 86705) 62 ML/MIN/1.73 CALC BUN/CREAT (test code = [...] code = 2219) 14 U/L Juan SantanaMICROALBUMIN, [id number] 00:00:00* Test Item Value Reference Range Interpretation Comme nts ALBUMIN, URINE, RANDOM (test code = 98081) 4.6 MG/DL Juan SantanaCBC W/AUTO [id number] 00:00:00* Test Item Value Reference Range Interpretation [...] ABS NUCLEATED RBCS (test cod e = 05436) 0.00 K/UL Juan SantanaLIPID [id number] 00:00:00* Test Item Value Reference Range Interpretation Comme nts CHOLESTEROL (test code = 2210) 243 MG/DL TRIGLYCERIDES (test code = 2232) 195 MG/DL HDL CHOLESTEROL (test code = 2220) 59 MG/DL CALC LDL CHOL (test code = 2237) 150 MG/DL RISK RATIO LDL/HDL (test cod e = 2238) 2.54 RATIO Juan SantanaCOMPREHENSIVE METABOLIC [id number] 00:00:00* Test Item Value Reference Range Interpretation Comme nts GLUCOSE (test code = 2217) 100 MG/DL BUN (test code = 2208) 16 MG/DL CREATININE (test code = 2214) 1.15 MG/DL eGFR (2020 CKD-EPI) (test co de = 06386) 62 ML/MIN/1.73 CALC BUN/CREAT (test code = [...] code = 2219) 14 U/L Juan SantanaMICROALBUMIN, [id number] 00:00:00* Test Item Value Reference Range Interpretation Comme nts ALBUMIN, URINE, RANDOM (test code = 72994) 4.6 MG/DL Juan SantanaCBC W/AUTO [id number] 00:00:00* Test Item Value Reference Range Interpretation [...] ABS NUCLEATED RBCS (test cod e = 38130) 0.00 K/UL Juan Richard [place]LIP[place] [id number] 00:00:00* Test Item Value Reference Range Interpretation Comme nts CHOLESTEROL (test code = 2210) 243 MG/DL TRIGLYCERIDES (test code = 2232) 195 MG/DL HDL CHOLESTEROL (test code = 2220) 59 MG/DL CALC LDL CHOL (test code = 2237) 150 MG/DL RISK RATIO LDL/HDL (test cod e = 2238) 2.54 RATIO Juan SantanaCOMPREHENSIVE METABOLIC [id number] 00:00:00* Test Item Value Reference Range Interpretation Comme nts GLUCOSE (test code = 2217) 100 MG/DL BUN (test code = 2208) 16 MG/DL CREATININE (test code = 2214) 1.15 MG/DL eGFR (2020 CKD-EPI) (test co de = 81644) 62 ML/MIN/1.73 CALC BUN/CREAT (test code = [...] code = 2219) 14 U/L Juan SantanaMICROALBUMIN, [id number] 00:00:00* Test Item Value Reference Range Interpretation Comme nts ALBUMIN, URINE, RANDOM (test code = 78533) 4.6 MG/DL Juan SantanaCBC W/AUTO [id number] 00:00:00* Test Item Value Reference Range Interpretation [...] ABS NUCLEATED RBCS (test cod e = 76563) 0.00 K/UL Juan SantanaLIPID [id number] 00:00:00* Test Item Value Reference Range Interpretation Comme nts CHOLESTEROL (test code = 2210) 243 MG/DL TRIGLYCERIDES (test code = 2232) 195 MG/DL HDL CHOLESTEROL (test code = 2220) 59 MG/DL CALC LDL CHOL (test code = 2237) 150 MG/DL RISK RATIO LDL/HDL (test cod e = 2238) 2.54 RATIO Juan SantanaCOMPREHENSIVE METABOLIC [id number] 00:00:00* Test Item Value Reference Range Interpretation Comme nts GLUCOSE (test code = 2217) 100 MG/DL BUN (test code = 2208) 16 MG/DL CREATININE (test code = 2214) 1.15 MG/DL eGFR (2020 CKD-EPI) (test co de = 26253) 62 ML/MIN/1.73 CALC BUN/CREAT (test code = [...] code = 2219) 14 U/L Juan SantanaMICROALBUMIN, [id number] 00:00:00* Test Item Value Reference Range Interpretation Comme nts ALBUMIN, URINE, RANDOM (test code = 79612) 4.6 MG/DL Juan SantanaCBC W/AUTO [id number] 00:00:00* Test Item Value Reference Range Interpretation [...] ABS NUCLEATED RBCS (test cod e = 24043) 0.00 K/UL Juan F AustinLIPID [id number] 00:00:00* Test Item Value Reference Range Interpretation Comme nts CHOLESTEROL (test code = 2210) 243 MG/DL TRIGLYCERIDES (test code = 2232) 195 MG/DL HDL CHOLESTEROL (test code = 2220) 59 MG/DL CALC LDL CHOL (test code = 2237) 150 MG/DL RISK RATIO LDL/HDL (test cod e = 2238) 2.54 RATIO COMPREHENSIVE METABOLIC [id number] 00:00:00* Test Item Value Reference Range Interpretation Comme nts GLUCOSE (test code = 2217) 100 MG/DL BUN (test code = 2208) 16 MG/DL CREATININE (test code = 2214) 1.15 MG/DL eGFR (2020 CKD-EPI) (test co de = 71910) 62 ML/MIN/1.73 CALC BUN/CREAT (test code = [...] (test code = 2219) 14 U/L MICROALBUMIN, [id number] 00:00:00* Test Item Value Reference Range Interpretation Comme nts ALBUMIN, URINE, RANDOM (test code = 57181) 4.6 MG/DL CBC W/AUTO [id number] 00:00:00* Test Item Value Reference Range Interpretation [...] ABS NUCLEATED RBCS (test cod e = 27803) 0.00 K/UL LIPID [id number] 00:00:00* Test Item Value Reference Range Interpretation Comme nts CHOLESTEROL (test code = 2210) 243 MG/DL TRIGLYCERIDES (test code = 2232) 195 MG/DL HDL CHOLESTEROL (test code = 2220) 59 MG/DL CALC LDL CHOL (test code = 2237) 150 MG/DL RISK RATIO LDL/HDL (test cod e = 2238) 2.54 RATIO COMPREHENSIVE METABOLIC [id number] 00:00:00* Test Item Value Reference Range Interpretation Comme nts GLUCOSE (test code = 2217) 100 MG/DL BUN (test code = 2208) 16 MG/DL CREATININE (test code = 2214) 1.15 MG/DL eGFR (2020 CKD-EPI) (test co de = 29710) 62 ML/MIN/1.73 CALC BUN/CREAT (test code = [...] (test code = 2219) 14 U/L MICROALBUMIN, [id number] 00:00:00* Test Item Value Reference Range Interpretation Comme nts ALBUMIN, URINE, RANDOM (test code = 55344) 4.6 MG/DL CBC W/AUTO [id number] 00:00:00* Test Item Value Reference Range Interpretation [...] ABS NUCLEATED RBCS (test cod e = 56556) 0.00 K/UL SARS-CoV-2 (COVID-19), RT-PCR/[id number] 17:21:35* Test Item Value Reference Range Interpretation Comments SARS-CoV-2 INTERPRETATION (test code = 99973) NEGATIVE SEE NOTE SARS-CoV-2 R NA NOT [...] prevalence is high. SOURCE (test code = 44158) NASOPHARYNGEAL Note: Methodolog y is Virginie Stephani Real-Time RT-PCR. The expected result or reference range is NEGATIVE (Not Detected). For more information regarding COVID-19 testing to include clinicalinformation, methodology detail, intended use, FDA authorization andrecommended fact sheets for patients or healthcare providers, see [facility] Announcement: SARS-CoV-2 (COVID-19) by NAAT at URL below (note,fact sheets are provided by method given in report:[email or web address] Alternatively, see downloadable PDF fact sheet at:[email or web address] UNLESS OTHERWISE INDICATED, ALL TESTING PERFORMED [facility] [place], [facility]. [address] [place] [address] SELLING SPECIALIST: CECILIA CORNELL M.D. [place] NUMBER [id number] [place]. [id number] SARS-CoV-2 (COVID-19) by RT-PCR (HIGH RISK)2021-07-16 00:00:00* Test Item Value Reference Range Interpretation Comme nts SARS-CoV-2 INTERPRETATION (test code = 48875) NEGATIVE SOURCE (test code = 68220) NASOPHARYNGEAL Juan F LbonuoPOIN-UdO-7 (COVID-19) by RT-PCR (HIGH RISK)2021-07-16 00:00:00* Test Item Value Reference Range Interpretation Comme nts SARS-CoV-2 INTERPRETATION (test code = 81772) NEGATIVE SOURCE (test code = 25901) NASOPHARYNGEAL Juan F YkizpjDZCC-RyR-8 (COVID-19) by RT-PCR (HIGH RISK)2021-07-16 00:00:00* Test Item Value Reference Range Interpretation Comme nts SARS-CoV-2 INTERPRETATION (test code = 81118) NEGATIVE SOURCE (test code = 05719) NASOPHARYNGEAL Juan F UqftioECOA-HpY-2 (COVID-19) by RT-PCR (HIGH RISK)2021-07-16 00:00:00* Test Item Value Reference Range Interpretation Comme nts SARS-CoV-2 INTERPRETATION (test code = 81400) NEGATIVE SOURCE (test code = 16117) NASOPHARYNGEAL Juan F DtnlmeVLER-SbY-6 (COVID-19) by RT-PCR (HIGH RISK)2021-07-16 00:00:00* Test Item Value Reference Range Interpretation Comme nts SARS-CoV-2 INTERPRETATION (test code = 79297) NEGATIVE SOURCE (test code = 21522) NASOPHARYNGEAL Juan F LnqxkfYFDU-RgW-9 (COVID-19) by RT-PCR (HIGH RISK)2021-07-16 00:00:00* Test Item Value Reference Range Interpretation Comme nts SARS-CoV-2 INTERPRETATION (test code = 95508) NEGATIVE SOURCE (test code = 04368) NASOPHARYNGEAL Juan F BdvrghIEGV-VaO-8 (COVID-19) by RT-PCR (HIGH RISK)2021-07-16 00:00:00* Test Item Value Reference Range Interpretation Comme nts SARS-CoV-2 INTERPRETATION (test code = 37694) NEGATIVE SOURCE (test code = 66447) NASOPHARYNGEAL Juan F CvsdjlQHKW-KzC-9 (COVID-19) by RT-PCR (HIGH RISK)2021-07-16 00:00:00* Test Item Value Reference Range Interpretation Comme nts SARS-CoV-2 INTERPRETATION (test code = 17374) NEGATIVE SOURCE (test code = 68081) NASOPHARYNGEAL Juan F TljizfUUQE-BjQ-1 (COVID-19) by RT-PCR (HIGH RISK)2021-07-16 00:00:00* Test Item Value Reference Range Interpretation Comme nts SARS-CoV-2 INTERPRETATION (test code = 79016) NEGATIVE SOURCE (test code = 95967) NASOPHARYNGEAL Juan F AoqfciVFRM-OmL-3 (COVID-19) by RT-PCR (HIGH RISK)2021-07-16 00:00:00* Test Item Value Reference Range Interpretation Comme nts SARS-CoV-2 INTERPRETATION (test code = 81246) NEGATIVE SOURCE (test code = 31373) NASOPHARYNGEAL Juan F NfpldkBJOZ-QrI-6 (COVID-19) by RT-PCR (HIGH RISK)2021-07-16 00:00:00* Test Item Value Reference Range Interpretation Comme nts SARS-CoV-2 INTERPRETATION (test code = 75090) NEGATIVE SOURCE (test code = 27464) NASOPHARYNGEAL Juan F NqnncpFYEN-YlH-7 (COVID-19) by RT-PCR (HIGH RISK)2021-07-16 00:00:00* Test Item Value Reference Range Interpretation Comme nts SARS-CoV-2 INTERPRETATION (test code = 74073) NEGATIVE SOURCE (test code = 62354) NASOPHARYNGEAL Juan F BccfgxACPA-SrT-7 (COVID-19) by RT-PCR (HIGH RISK)2021-07-16 00:00:00* Test Item Value Reference Range Interpretation Comme nts SARS-CoV-2 INTERPRETATION (test code = 10679) NEGATIVE SOURCE (test code = 89025) NASOPHARYNGEAL Juan F EshfzsCCMO-EmX-1 (COVID-19) by RT-PCR (HIGH RISK)2021-07-16 00:00:00* Test Item Value Reference Range Interpretation Comme nts SARS-CoV-2 INTERPRETATION (test code = 32826) NEGATIVE SOURCE (test code = 24210) NASOPHARYNGEAL Juan F IvcdfcCPJZ-YtR-3 (COVID-19) by RT-PCR (HIGH RISK)2021-07-16 00:00:00* Test Item Value Reference Range Interpretation Comme nts SARS-CoV-2 INTERPRETATION (test code = 19149) NEGATIVE SOURCE (test code = 84036) NASOPHARYNGEAL Juan F NrpbejOTZG-UbT-4 (COVID-19) by RT-PCR (HIGH RISK)2021-07-16 00:00:00* Test Item Value Reference Range Interpretation Comme nts SARS-CoV-2 INTERPRETATION (test code = 59816) NEGATIVE SOURCE (test code = 43970) NASOPHARYNGEAL Juan F OfknkhHXTQ-ZbV-4 (COVID-19) by RT-PCR (HIGH RISK)2021-07-16 00:00:00* Test Item Value Reference Range Interpretation Comme nts SARS-CoV-2 INTERPRETATION (test code = 02597) NEGATIVE SOURCE (test code = 78105) NASOPHARYNGEAL SARS-CoV-2 (COVID-19) by RT-PCR (HIGH RISK)2021-07-16 00:00:00* Test Item Value Reference Range Interpretation Comme nts SARS-CoV-2 INTERPRETATION (test code = 30073) NEGATIVE SOURCE (test code = 91234) NASOPHARYNGEAL [id number] 00:00:00* Test Item Value Reference Range Interpretation Comme nts TSH, THIRD GENERATION (test code = 2821) 0.705 UIU/ML Juan [id number] 00:00:00* Test Item Value Reference Range Interpretation Comme nts TSH, THIRD GENERATION (test code = 2821) 0.705 UIU/ML Juan F [id number] 00:00:00* Test Item Value Reference Range Interpretation Comme nts TSH, THIRD GENERATION (test code = 2821) 0.705 UIU/ML Juan F [id number] 00:00:00* Test Item Value Reference Range Interpretation Comme nts TSH, THIRD GENERATION (test code = 2821) 0.705 UIU/ML Juan F [id number] 00:00:00* Test Item Value Reference Range Interpretation Comme nts TSH, THIRD GENERATION (test code = 2821) 0.705 UIU/ML Juan F [id number] 00:00:00* Test Item Value Reference Range Interpretation Comme nts TSH, THIRD GENERATION (test code = 2821) 0.705 UIU/ML Juan F [id number] 00:00:00* Test Item Value Reference Range Interpretation Comme nts TSH, THIRD GENERATION (test code = 2821) 0.705 UIU/ML Juan F [id number] 00:00:00* Test Item Value Reference Range Interpretation Comme nts TSH, THIRD GENERATION (test code = 2821) 0.705 UIU/ML Juan F [id number] 00:00:00* Test Item Value Reference Range Interpretation Comme nts TSH, THIRD GENERATION (test code = 2821) 0.705 UIU/ML Juan F [id number] 00:00:00* Test Item Value Reference Range Interpretation Comme nts TSH, THIRD GENERATION (test code = 2821) 0.705 UIU/ML Juan F [id number] 00:00:00* Test Item Value Reference Range Interpretation Comme nts TSH, THIRD GENERATION (test code = 2821) 0.705 UIU/ML Juan F [id number] 00:00:00* Test Item Value Reference Range Interpretation Comme nts TSH, THIRD GENERATION (test code = 2821) 0.705 UIU/ML Juan F [id number] 00:00:00* Test Item Value Reference Range Interpretation Comme nts TSH, THIRD GENERATION (test code = 2821) 0.705 UIU/ML Juan Richard [id number] 00:00:00* Test Item Value Reference Range Interpretation Comme nts TSH, THIRD GENERATION (test code = 2821) 0.705 UIU/ML Juan Richard [id number] 00:00:00* Test Item Value Reference Range Interpretation Comme nts TSH, THIRD GENERATION (test code = 2821) 0.705 UIU/ML Juan Richard [id number] 00:00:00* Test Item Value Reference Range Interpretation Comme nts TSH, THIRD GENERATION (test code = 2821) 0.705 UIU/ML Juan Richard [id number] 00:00:00* Test Item Value Reference Range Interpretation Comme nts TSH, THIRD GENERATION (test code = 2821) 0.705 UIU/ML [id number] 00:00:00* Test Item Value Reference Range Interpretation Comme nts TSH, THIRD GENERATION (test code = 2821) 0.705 UIU/ML HEMOGLOBIN [id number] 00:00:00* Test Item Value Reference Range Interpretation Comme nts HEMOGLOBIN A1c (test code = 89663) 5.5 % Juan Richard AustinH. PYLORI (BREATH)2021-04-11 00:00:00* Test Item Value Reference Range Interpretation Comme nts H. PYLORI (BREATH) (test cod e = 90949) NEGATIVE Juan Richard AustinHEMOGLOBIN [id number] 00:00:00* Test Item Value Reference Range Interpretation Comme nts HEMOGLOBIN A1c (test code = 32496) 5.5 % Juan F AustinH. PYLORI (BREATH)2021-04-11 00:00:00* Test Item Value Reference Range Interpretation Comme nts H. PYLORI (BREATH) (test cod e = 53634) NEGATIVE Juan Richard AustinHEMOGLOBIN [id number] 00:00:00* Test Item Value Reference Range Interpretation Comme nts HEMOGLOBIN A1c (test code = 11007) 5.5 % Juan F AustinH. PYLORI (BREATH)2021-04-11 00:00:00* Test Item Value Reference Range Interpretation Comme nts H. PYLORI (BREATH) (test cod e = 62480) NEGATIVE Juan Richard AustinH. PYLORI (BREATH)2021-04-11 00:00:00* Test Item Value Reference Range Interpretation Comme nts H. PYLORI (BREATH) (test cod e = 45576) NEGATIVE Juan Richard AustinHEMOGLOBIN [id number] 00:00:00* Test Item Value Reference Range Interpretation Comme nts HEMOGLOBIN A1c (test code = 71563) 5.5 % Juan Richard AustinH. PYLORI (BREATH)2021-04-11 00:00:00* Test Item Value Reference Range Interpretation Comme nts H. PYLORI (BREATH) (test cod e = 52191) NEGATIVE Juan Richard AustinHEMOGLOBIN [id number] 00:00:00* Test Item Value Reference Range Interpretation Comme nts HEMOGLOBIN A1c (test code = 39143) 5.5 % Juan Richard AustinH. PYLORI (BREATH)2021-04-11 00:00:00* Test Item Value Reference Range Interpretation Comme nts H. PYLORI (BREATH) (test cod e = 57831) NEGATIVE Juan Richard AustinHEMOGLOBIN [id number] 00:00:00* Test Item Value Reference Range Interpretation Comme nts HEMOGLOBIN A1c (test code = 29851) 5.5 % Juan Richard AustinH. PYLORI (BREATH)2021-04-11 00:00:00* Test Item Value Reference Range Interpretation Comme nts H. PYLORI (BREATH) (test cod e = 52898) NEGATIVE Juan Richard AustinHEMOGLOBIN [id number] 00:00:00* Test Item Value Reference Range Interpretation Comme nts HEMOGLOBIN A1c (test code = 64569) 5.5 % Juan Richard AustinH. PYLORI (BREATH)2021-04-11 00:00:00* Test Item Value Reference Range Interpretation Comme nts H. PYLORI (BREATH) (test cod e = 27782) NEGATIVE Juan Richard AustinHEMOGLOBIN [id number] 00:00:00* Test Item Value Reference Range Interpretation Comme nts HEMOGLOBIN A1c (test code = 35664) 5.5 % Juan Richard AustinH. PYLORI (BREATH)2021-04-11 00:00:00* Test Item Value Reference Range Interpretation Comme nts H. PYLORI (BREATH) (test cod e = 21366) NEGATIVE Juan Richard AustinHEMOGLOBIN [id number] 00:00:00* Test Item Value Reference Range Interpretation Comme nts HEMOGLOBIN A1c (test code = 46025) 5.5 % Juan Richard AustinH. PYLORI (BREATH)2021-04-11 00:00:00* Test Item Value Reference Range Interpretation Comme nts H. PYLORI (BREATH) (test cod e = 62928) NEGATIVE Juan Richard AustinHEMOGLOBIN [id number] 00:00:00* Test Item Value Reference Range Interpretation Comme nts HEMOGLOBIN A1c (test code = 71338) 5.5 % Juan Richard AustinH. PYLORI (BREATH)2021-04-11 00:00:00* Test Item Value Reference Range Interpretation Comme nts H. PYLORI (BREATH) (test cod e = 90300) NEGATIVE Juan Richard AustinHEMOGLOBIN [id number] 00:00:00* Test Item Value Reference Range Interpretation Comme nts HEMOGLOBIN A1c (test code = 40013) 5.5 % Juan Richard AustinH. PYLORI (BREATH)2021-04-11 00:00:00* Test Item Value Reference Range Interpretation Comme nts H. PYLORI (BREATH) (test cod e = 33164) NEGATIVE Juan Richard AustinHEMOGLOBIN [id number] 00:00:00* Test Item Value Reference Range Interpretation Comme nts HEMOGLOBIN A1c (test code = 92888) 5.5 % Juan Richard AustinH. PYLORI (BREATH)2021-04-11 00:00:00* Test Item Value Reference Range Interpretation Comme nts H. PYLORI (BREATH) (test cod e = 97358) NEGATIVE Juan Richard AustinHEMOGLOBIN [id number] 00:00:00* Test Item Value Reference Range Interpretation Comme nts HEMOGLOBIN A1c (test code = 90499) 5.5 % Juan Richard AustinH. PYLORI (BREATH)2021-04-11 00:00:00* Test Item Value Reference Range Interpretation Comme nts H. PYLORI (BREATH) (test cod e = 21179) NEGATIVE Juan Richard AustinHEMOGLOBIN [id number] 00:00:00* Test Item Value Reference Range Interpretation Comme nts HEMOGLOBIN A1c (test code = 18194) 5.5 % Juan Richard AustinH. PYLORI (BREATH)2021-04-11 00:00:00* Test Item Value Reference Range Interpretation Comme nts H. PYLORI (BREATH) (test cod e = 38955) NEGATIVE Juan Richard AustinHEMOGLOBIN [id number] 00:00:00* Test Item Value Reference Range Interpretation Comme nts HEMOGLOBIN A1c (test code = 06990) 5.5 % Juan Richard AustinH. PYLORI (BREATH)2021-04-11 00:00:00* Test Item Value Reference Range Interpretation Comme nts H. PYLORI (BREATH) (test cod e = 39900) NEGATIVE Juan Richard AustinHEMOGLOBIN [id number] 00:00:00* Test Item Value Reference Range Interpretation Comme nts HEMOGLOBIN A1c (test code = 34439) 5.5 % Juan F AustinH. PYLORI (BREATH)2021-04-11 00:00:00* Test Item Value Reference Range Interpretation Comme nts H. PYLORI (BREATH) (test cod e = 57674) NEGATIVE HEMOGLOBIN [id number] 00:00:00* Test Item Value Reference Range Interpretation Comme nts HEMOGLOBIN A1c (test code = 91025) 5.5 % H. PYLORI (BREATH)2021-04-11 00:00:00* Test Item Value Reference Range Interpretation Comme nts H. PYLORI (BREATH) (test cod e = 34994) NEGATIVE HEMOGLOBIN [id number] 00:00:00* Test Item Value Reference Range Interpretation Comme nts HEMOGLOBIN A1c (test code = 91381) 5.5 % MICROALBUMIN/CREATININE, RANDOM AND [id number] 00:00:00* Test Item Value Reference Range Interpretation Comme nts CREATININE, URINE, CONC. (te st code = 207) 13.0 MG/DL ALBUMIN, URINE, RANDOM (test code = 15755) 3.0 MG/DL CALC ALBUMIN/CREAT, RND (cristhian t code = 74809) 231 MG/G Juan SantanaMICROALBUMIN/CREATININE, RANDOM AND [id number] 00:00:00* Test Item Value Reference Range Interpretation Comme nts CREATININE, URINE, CONC. (te st code = 207) 13.0 MG/DL ALBUMIN, URINE, RANDOM (test code = 85698) 3.0 MG/DL CALC ALBUMIN/CREAT, RND (cristhian t code = 65875) 231 MG/G Juan F AustinMICROALBUMIN/CREATININE, RANDOM AND [id number] 00:00:00* Test Item Value Reference Range Interpretation Comme nts CREATININE, URINE, CONC. (te st code = 2071) 13.0 MG/DL ALBUMIN, URINE, RANDOM (test code = 70127) 3.0 MG/DL CALC ALBUMIN/CREAT, RND (cristhian t code = 68986) 231 MG/G Juan F AustinMICROALBUMIN/CREATININE, RANDOM AND [id number] 00:00:00* Test Item Value Reference Range Interpretation Comme nts CREATININE, URINE, CONC. (te st code = 2071) 13.0 MG/DL ALBUMIN, URINE, RANDOM (test code = 53389) 3.0 MG/DL CALC ALBUMIN/CREAT, RND (cristhian t code = 17137) 231 MG/G Juan F AustinMICROALBUMIN/CREATININE, RANDOM AND [id number] 00:00:00* Test Item Value Reference Range Interpretation Comme nts CREATININE, URINE, CONC. (te st code = 2071) 13.0 MG/DL ALBUMIN, URINE, RANDOM (test code = 69334) 3.0 MG/DL CALC ALBUMIN/CREAT, RND (cristhian t code = 66936) 231 MG/G Juan F AustinMICROALBUMIN/CREATININE, RANDOM AND [id number] 00:00:00* Test Item Value Reference Range Interpretation Comme nts CREATININE, URINE, CONC. (te st code = 2071) 13.0 MG/DL ALBUMIN, URINE, RANDOM (test code = 23078) 3.0 MG/DL CALC ALBUMIN/CREAT, RND (cristhian t code = 34336) 231 MG/G Juan F AustinMICROALBUMIN/CREATININE, RANDOM AND [id number] 00:00:00* Test Item Value Reference Range Interpretation Comme nts CREATININE, URINE, CONC. (te st code = 2071) 13.0 MG/DL ALBUMIN, URINE, RANDOM (test code = 68347) 3.0 MG/DL CALC ALBUMIN/CREAT, RND (cristhian t code = 28535) 231 MG/G Juan F AustinMICROALBUMIN/CREATININE, RANDOM AND [id number] 00:00:00* Test Item Value Reference Range Interpretation Comme nts CREATININE, URINE, CONC. (te st code = 2071) 13.0 MG/DL ALBUMIN, URINE, RANDOM (test code = 95003) 3.0 MG/DL CALC ALBUMIN/CREAT, RND (cristhian t code = 39371) 231 MG/G Juan F AustinMICROALBUMIN/CREATININE, RANDOM AND [id number] 00:00:00* Test Item Value Reference Range Interpretation Comme nts CREATININE, URINE, CONC. (te st code = 2071) 13.0 MG/DL ALBUMIN, URINE, RANDOM (test code = 63961) 3.0 MG/DL CALC ALBUMIN/CREAT, RND (cristhian t code = 28353) 231 MG/G Juan F AustinMICROALBUMIN/CREATININE, RANDOM AND [id number] 00:00:00* Test Item Value Reference Range Interpretation Comme nts CREATININE, URINE, CONC. (te st code = 2071) 13.0 MG/DL ALBUMIN, URINE, RANDOM (test code = 29321) 3.0 MG/DL CALC ALBUMIN/CREAT, RND (cristhian t code = 36881) 231 MG/G Juan F AustinMICROALBUMIN/CREATININE, RANDOM AND [id number] 00:00:00* Test Item Value Reference Range Interpretation Comme nts CREATININE, URINE, CONC. (te st code = 2071) 13.0 MG/DL ALBUMIN, URINE, RANDOM (test code = 57447) 3.0 MG/DL CALC ALBUMIN/CREAT, RND (cristhian t code = 03396) 231 MG/G Juan F AustinMICROALBUMIN/CREATININE, RANDOM AND [id number] 00:00:00* Test Item Value Reference Range Interpretation Comme nts CREATININE, URINE, CONC. (te st code = 2071) 13.0 MG/DL ALBUMIN, URINE, RANDOM (test code = 93926) 3.0 MG/DL CALC ALBUMIN/CREAT, RND (cristhian t code = 03578) 231 MG/G Juan F AustinMICROALBUMIN/CREATININE, RANDOM AND [id number] 00:00:00* Test Item Value Reference Range Interpretation Comme nts CREATININE, URINE, CONC. (te st code = 2071) 13.0 MG/DL ALBUMIN, URINE, RANDOM (test code = 17874) 3.0 MG/DL CALC ALBUMIN/CREAT, RND (cristhian t code = 33101) 231 MG/G Juan Richard AustinMICROALBUMIN/CREATININE, RANDOM AND [id number] 00:00:00* Test Item Value Reference Range Interpretation Comme nts CREATININE, URINE, CONC. (te st code = 2071) 13.0 MG/DL ALBUMIN, URINE, RANDOM (test code = 09943) 3.0 MG/DL CALC ALBUMIN/CREAT, RND (cristhian t code = 67340) 231 MG/G Juan Richard AustinMICROALBUMIN/CREATININE, RANDOM AND [id number] 00:00:00* Test Item Value Reference Range Interpretation Comme nts CREATININE, URINE, CONC. (te st code = 2071) 13.0 MG/DL ALBUMIN, URINE, RANDOM (test code = 44941) 3.0 MG/DL CALC ALBUMIN/CREAT, RND (cristhian t code = 21202) 231 MG/G Juan Richard AustinMICROALBUMIN/CREATININE, RANDOM AND [id number] 00:00:00* Test Item Value Reference Range Interpretation Comme nts CREATININE, URINE, CONC. (te st code = 2071) 13.0 MG/DL ALBUMIN, URINE, RANDOM (test code = 63982) 3.0 MG/DL CALC ALBUMIN/CREAT, RND (cristhian t code = 51140) 231 MG/G Juan Richard AustinMICROALBUMIN/CREATININE, RANDOM AND [id number] 00:00:00* Test Item Value Reference Range Interpretation Comme nts CREATININE, URINE, CONC. (te st code = 2071) 13.0 MG/DL ALBUMIN, URINE, RANDOM (test code = 27292) 3.0 MG/DL CALC ALBUMIN/CREAT, RND (cristhian t code = 60293) 231 MG/G MICROALBUMIN/CREATININE, RANDOM AND [id number] 00:00:00* Test Item Value Reference Range Interpretation Comme nts CREATININE, URINE, CONC. (te st code = 2071) 13.0 MG/DL ALBUMIN, URINE, RANDOM (test code = 51527) 3.0 MG/DL CALC ALBUMIN/CREAT, RND (cristhian t code = 81556) 231 MG/G COMPREHENSIVE METABOLIC [id number] 00:00:00* Test Item Value Reference Range Interpretation Comme nts GLUCOSE (test code = 2217) 76 MG/DL BUN (test code = 2208) 16 MG/DL CREATININE (test code = 2214) 1.21 MG/DL eGFR AMER. (test cod e = 28270) 65 ML/MIN/1.73 eGFR NON- AMER. (test code = 99267) 56 ML/MIN/1.73 CALC BUN/CREAT (test code = [...] (test code = 2219) 22 U/L Juan Richard [place] METABOL[place] [id number] 00:00:00* Test Item Value Reference Range Interpretation Comme nts GLUCOSE (test code = 2217) 76 MG/DL BUN (test code = 2208) 16 MG/DL CREATININE (test code = 2214) 1.21 MG/DL eGFR AMER. (test cod e = 40606) 65 ML/MIN/1.73 eGFR NON- AMER. (test code = 99935) 56 ML/MIN/1.73 CALC BUN/CREAT (test code = [...] (test code = 2219) 22 U/L Juan [id number] 00:00:00* Test Item Value Reference Range Interpretation Comme nts TSH, THIRD GENERATION (test code = 2821) 1.370 UIU/ML Juan SantanaCBC W/AUTO [id number] 00:00:00* Test Item Value Reference Range Interpretation [...] ABS NUCLEATED RBCS (test cod e = 70526) 0.00 K/UL Juan SantanaSEDIMENTATION [id number] 00:00:00* Test Item Value Reference Range Interpretation Comme nts SEDIMENTATION RATE (test cod e = 1017) 27 MM/HOUR Juan Escobar NON-REFLEX TO [id number] 00:00:00* Test Item Value Reference Range Interpretation Comme nts ANTI-NUCLEAR ANTIBODIES (cristhian t code = 3506) NEGATIVE Juan SantanaCOMPREHENSIVE METABOLIC [id number] 00:00:00* Test Item Value Reference Range Interpretation Comme nts GLUCOSE (test code = 2217) 76 MG/DL BUN (test code = 2208) 16 MG/DL CREATININE (test code = 2214) 1.21 MG/DL eGFR AMER. (test cod e = 62278) 65 ML/MIN/1.73 eGFR NON- AMER. (test code = 27062) 56 ML/MIN/1.73 CALC BUN/CREAT (test code = [...] (test code = 2219) 22 U/L Juan [id number] 00:00:00* Test Item Value Reference Range Interpretation Comme oneal TSH, THIRD GENERATION (test code = 2821) 1.370 UIU/ML Juan SantanaCBC W/AUTO [id number] 00:00:00* Test Item Value Reference Range Interpretation [...] ABS NUCLEATED RBCS (test cod e = 63393) 0.00 K/UL Juan SantanaSEDIMENTATION [id number] 00:00:00* Test Item Value Reference Range Interpretation Comme nts SEDIMENTATION RATE (test cod e = 1017) 27 MM/HOUR Juan SantanaANA NON-REFLEX TO [id number] 00:00:00* Test Item Value Reference Range Interpretation Comme nts ANTI-NUCLEAR ANTIBODIES (cristhian t code = 3506) NEGATIVE Juan [id number] 00:00:00* Test Item Value Reference Range Interpretation Comme nts TSH, THIRD GENERATION (test code = 2821) 1.370 UIU/ML Juan SantanaCOMPREHENSIVE METABOLIC [id number] 00:00:00* Test Item Value Reference Range Interpretation Comme nts GLUCOSE (test code = 2217) 76 MG/DL BUN (test code = 2208) 16 MG/DL CREATININE (test code = 2214) 1.21 MG/DL eGFR AMER. (test cod e = 55460) 65 ML/MIN/1.73 eGFR NON- AMER. (test code = 26493) 56 ML/MIN/1.73 CALC BUN/CREAT (test code = [...] (test code = 2219) 22 U/L Juan [id number] 00:00:00* Test Item Value Reference Range Interpretation Comme nts TSH, THIRD GENERATION (test code = 2821) 1.370 UIU/ML Juan SantanaCBC W/AUTO [id number] 00:00:00* Test Item Value Reference Range Interpretation [...] ABS NUCLEATED RBCS (test cod e = 95546) 0.00 K/UL Juan Richard AustinSEDIMENTATION [id number] 00:00:00* Test Item Value Reference Range Interpretation Comme nts SEDIMENTATION RATE (test cod e = 1017) 27 MM/HOUR Juan SantanaANA NON-REFLEX TO [id number] 00:00:00* Test Item Value Reference Range Interpretation Comme nts ANTI-NUCLEAR ANTIBODIES (cristhian t code = 3506) NEGATIVE Juan SantanaCOMPREHENSIVE METABOLIC [id number] 00:00:00* Test Item Value Reference Range Interpretation Comme nts GLUCOSE (test code = 2217) 76 MG/DL BUN (test code = 2208) 16 MG/DL CREATININE (test code = 2214) 1.21 MG/DL eGFR AMER. (test cod e = 11216) 65 ML/MIN/1.73 eGFR NON- AMER. (test code = 78589) 56 ML/MIN/1.73 CALC BUN/CREAT (test code = [...] = 2219) 22 U/L Juan SantanaCBC W/AUTO [id number] 00:00:00* Test Item Value Reference Range Interpretation [...] ABS NUCLEATED RBCS (test cod e = 91990) 0.00 K/UL Juan [id number] 00:00:00* Test Item Value Reference Range Interpretation Comme nts TSH, THIRD GENERATION (test code = 2821) 1.370 UIU/ML Juan SantanaCBC W/AUTO [id number] 00:00:00* Test Item Value Reference Range Interpretation [...] ABS NUCLEATED RBCS (test cod e = 49271) 0.00 K/UL Juan Richard AustinSEDIMENTATION [id number] 00:00:00* Test Item Value Reference Range Interpretation Comme nts SEDIMENTATION RATE (test cod e = 1017) 27 MM/HOUR Juan SantanaANA NON-REFLEX TO [id number] 00:00:00* Test Item Value Reference Range Interpretation Comme nts ANTI-NUCLEAR ANTIBODIES (cristhian t code = 3506) NEGATIVE Juan Richard AustinCOMPREHENSIVE METABOLIC [id number] 00:00:00* Test Item Value Reference Range Interpretation Comme nts GLUCOSE (test code = 2217) 76 MG/DL BUN (test code = 2208) 16 MG/DL CREATININE (test code = 2214) 1.21 MG/DL eGFR AMER. (test cod e = 66567) 65 ML/MIN/1.73 eGFR NON- AMER. (test code = 55900) 56 ML/MIN/1.73 CALC BUN/CREAT (test code = [...] (test code = 2219) 22 U/L Juan SantanaSEDIMENTATION [id number] 00:00:00* Test Item Value Reference Range Interpretation Comme nts SEDIMENTATION RATE (test cod e = 1017) 27 MM/HOUR Juan [id number] 00:00:00* Test Item Value Reference Range Interpretation Comme nts TSH, THIRD GENERATION (test code = 2821) 1.370 UIU/ML Juan Escobar NON-REFLEX TO [id number] 00:00:00* Test Item Value Reference Range Interpretation Comme nts ANTI-NUCLEAR ANTIBODIES (cristhian t code = 3506) NEGATIVE Juan SantanaCBC W/AUTO [id number] 00:00:00* Test Item Value Reference Range Interpretation [...] ABS NUCLEATED RBCS (test cod e = 37875) 0.00 K/UL Juan Richard AustinSEDIMENTATION [id number] 00:00:00* Test Item Value Reference Range Interpretation Comme nts SEDIMENTATION RATE (test cod e = 1017) 27 MM/HOUR Juan Richard AustinANA NON-REFLEX TO [id number] 00:00:00* Test Item Value Reference Range Interpretation Comme nts ANTI-NUCLEAR ANTIBODIES (cristhian t code = 3506) NEGATIVE Juan Richard AustinCOMPREHENSIVE METABOLIC [id number] 00:00:00* Test Item Value Reference Range Interpretation Comme nts GLUCOSE (test code = 2217) 76 MG/DL BUN (test code = 2208) 16 MG/DL CREATININE (test code = 2214) 1.21 MG/DL eGFR AMER. (test cod e = 54401) 65 ML/MIN/1.73 eGFR NON- AMER. (test code = 66305) 56 ML/MIN/1.73 CALC BUN/CREAT (test code = [...] (test code = 2219) 22 U/L Juan [id number] 00:00:00* Test Item Value Reference Range Interpretation Comme nts TSH, THIRD GENERATION (test code = 2821) 1.370 UIU/ML Juan SantanaCBC W/AUTO [id number] 00:00:00* Test Item Value Reference Range Interpretation [...] ABS NUCLEATED RBCS (test cod e = 83450) 0.00 K/UL Juan SantanaSEDIMENTATION [id number] 00:00:00* Test Item Value Reference Range Interpretation Comme nts SEDIMENTATION RATE (test cod e = 1017) 27 MM/HOUR Juan Escobar NON-REFLEX TO [id number] 00:00:00* Test Item Value Reference Range Interpretation Comme nts ANTI-NUCLEAR ANTIBODIES (cristhian t code = 3506) NEGATIVE Juan SantanaCOMPREHENSIVE METABOLIC [id number] 00:00:00* Test Item Value Reference Range Interpretation Comme nts GLUCOSE (test code = 2217) 76 MG/DL BUN (test code = 2208) 16 MG/DL CREATININE (test code = 2214) 1.21 MG/DL eGFR AMER. (test cod e = 21856) 65 ML/MIN/1.73 eGFR NON- AMER. (test code = 22859) 56 ML/MIN/1.73 CALC BUN/CREAT (test code = [...] (test code = 2219) 22 U/L Juan [id number] 00:00:00* Test Item Value Reference Range Interpretation Comme nts TSH, THIRD GENERATION (test code = 2821) 1.370 UIU/ML Juan SantanaCBC W/AUTO [id number] 00:00:00* Test Item Value Reference Range Interpretation [...] ABS NUCLEATED RBCS (test cod e = 19237) 0.00 K/UL Juan Richard AustinSEDIMENTATION [id number] 00:00:00* Test Item Value Reference Range Interpretation Comme nts SEDIMENTATION RATE (test cod e = 1017) 27 MM/HOUR Juan Richard MaxANA NON-REFLEX TO [id number] 00:00:00* Test Item Value Reference Range Interpretation Comme nts ANTI-NUCLEAR ANTIBODIES (cristhian t code = 3506) NEGATIVE Juan F MaxCOMPREHENSIVE METABOLIC [id number] 00:00:00* Test Item Value Reference Range Interpretation Comme nts GLUCOSE (test code = 2217) 76 MG/DL BUN (test code = 2208) 16 MG/DL CREATININE (test code = 2214) 1.21 MG/DL eGFR AMER. (test cod e = 19355) 65 ML/MIN/1.73 eGFR NON- AMER. (test code = 31437) 56 ML/MIN/1.73 CALC BUN/CREAT (test code = [...] (test code = 2219) 22 U/L Juan [id number] 00:00:00* Test Item Value Reference Range Interpretation Comme nts TSH, THIRD GENERATION (test code = 2821) 1.370 UIU/ML Juan SantanaCBC W/AUTO [id number] 00:00:00* Test Item Value Reference Range Interpretation [...] ABS NUCLEATED RBCS (test cod e = 00953) 0.00 K/UL Juan SantanaSEDIMENTATION [id number] 00:00:00* Test Item Value Reference Range Interpretation Comme nts SEDIMENTATION RATE (test cod e = 1017) 27 MM/HOUR Juan SantanaANA NON-REFLEX TO [id number] 00:00:00* Test Item Value Reference Range Interpretation Comme nts ANTI-NUCLEAR ANTIBODIES (cristhian t code = 3506) NEGATIVE Juan SantanaCOMPREHENSIVE METABOLIC [id number] 00:00:00* Test Item Value Reference Range Interpretation Comme nts GLUCOSE (test code = 2217) 76 MG/DL BUN (test code = 2208) 16 MG/DL CREATININE (test code = 2214) 1.21 MG/DL eGFR AMER. (test cod e = 85179) 65 ML/MIN/1.73 eGFR NON- AMER. (test code = 51826) 56 ML/MIN/1.73 CALC BUN/CREAT (test code = [...] (test code = 2219) 22 U/L Juan [id number] 00:00:00* Test Item Value Reference Range Interpretation Comme oneal TSH, THIRD GENERATION (test code = 2821) 1.370 UIU/ML Juan SantanaCBC W/AUTO [id number] 00:00:00* Test Item Value Reference Range Interpretation [...] ABS NUCLEATED RBCS (test cod e = 44472) 0.00 K/UL Juan Richard AustinSEDIMENTATION [id number] 00:00:00* Test Item Value Reference Range Interpretation Comme nts SEDIMENTATION RATE (test cod e = 1017) 27 MM/HOUR Juan Escobar NON-REFLEX TO [id number] 00:00:00* Test Item Value Reference Range Interpretation Comme nts ANTI-NUCLEAR ANTIBODIES (cristhian t code = 3506) NEGATIVE Juan Hilary MaxCOMPREHENSIVE METABOLIC [id number] 00:00:00* Test Item Value Reference Range Interpretation Comme nts GLUCOSE (test code = 2217) 76 MG/DL BUN (test code = 2208) 16 MG/DL CREATININE (test code = 2214) 1.21 MG/DL eGFR AMER. (test cod e = 87641) 65 ML/MIN/1.73 eGFR NON- AMER. (test code = 20289) 56 ML/MIN/1.73 CALC BUN/CREAT (test code = [...] (test code = 2219) 22 U/L Juan Richard [id number] 00:00:00* Test Item Value Reference Range Interpretation Comme nts TSH, THIRD GENERATION (test code = 2821) 1.370 UIU/ML Juan Richard MaxCBC W/AUTO [id number] 00:00:00* Test Item Value Reference Range Interpretation [...] ABS NUCLEATED RBCS (test cod e = 69600) 0.00 K/UL Juan SantanaSEDIMENTATION [id number] 00:00:00* Test Item Value Reference Range Interpretation Comme nts SEDIMENTATION RATE (test cod e = 1017) 27 MM/HOUR Juan SantanaANA NON-REFLEX TO [id number] 00:00:00* Test Item Value Reference Range Interpretation Comme nts ANTI-NUCLEAR ANTIBODIES (cristhian t code = 3506) NEGATIVE Juan SantanaCOMPREHENSIVE METABOLIC [id number] 00:00:00* Test Item Value Reference Range Interpretation Comme nts GLUCOSE (test code = 2217) 76 MG/DL BUN (test code = 2208) 16 MG/DL CREATININE (test code = 2214) 1.21 MG/DL eGFR AMER. (test cod e = 56350) 65 ML/MIN/1.73 eGFR NON- AMER. (test code = 47674) 56 ML/MIN/1.73 CALC BUN/CREAT (test code = [...] (test code = 2219) 22 U/L Juan [id number] 00:00:00* Test Item Value Reference Range Interpretation Comme nts TSH, THIRD GENERATION (test code = 2821) 1.370 UIU/ML Juan SantanaCBC W/AUTO [id number] 00:00:00* Test Item Value Reference Range Interpretation [...] ABS NUCLEATED RBCS (test cod e = 34293) 0.00 K/UL Juan SantanaSEDIMENTATION [id number] 00:00:00* Test Item Value Reference Range Interpretation Comme nts SEDIMENTATION RATE (test cod e = 1017) 27 MM/HOUR Juan SantanaANA NON-REFLEX TO [id number] 00:00:00* Test Item Value Reference Range Interpretation Comme nts ANTI-NUCLEAR ANTIBODIES (cristhian t code = 3506) NEGATIVE Juan SantanaCOMPREHENSIVE METABOLIC [id number] 00:00:00* Test Item Value Reference Range Interpretation Comme nts GLUCOSE (test code = 2217) 76 MG/DL BUN (test code = 2208) 16 MG/DL CREATININE (test code = 2214) 1.21 MG/DL eGFR AMER. (test cod e = 81370) 65 ML/MIN/1.73 eGFR NON- AMER. (test code = 82794) 56 ML/MIN/1.73 CALC BUN/CREAT (test code = [...] (test code = 2219) 22 U/L Juan [id number] 00:00:00* Test Item Value Reference Range Interpretation Comme oneal TSH, THIRD GENERATION (test code = 2821) 1.370 UIU/ML Juan SantanaCBC W/AUTO [id number] 00:00:00* Test Item Value Reference Range Interpretation Comme oneal WBC (test code = 1001) 9.9 K/UL [...] ABS NUCLEATED RBCS (test cod e = 69363) 0.00 K/UL Juan Richard AustinSEDIMENTATION [id number] 00:00:00* Test Item Value Reference Range Interpretation Comme nts SEDIMENTATION RATE (test cod e = 1017) 27 MM/HOUR Juan SantanaANA NON-REFLEX TO [id number] 00:00:00* Test Item Value Reference Range Interpretation Comme nts ANTI-NUCLEAR ANTIBODIES (cristhian t code = 3506) NEGATIVE Juan Richard AustinCOMPREHENSIVE METABOLIC [id number] 00:00:00* Test Item Value Reference Range Interpretation Comme nts GLUCOSE (test code = 2217) 76 MG/DL BUN (test code = 2208) 16 MG/DL CREATININE (test code = 2214) 1.21 MG/DL eGFR AMER. (test cod e = 15232) 65 ML/MIN/1.73 eGFR NON- AMER. (test code = 90702) 56 ML/MIN/1.73 CALC BUN/CREAT (test code = [...] (test code = 2219) 22 U/L Juan [id number] 00:00:00* Test Item Value Reference Range Interpretation Comme nts TSH, THIRD GENERATION (test code = 2821) 1.370 UIU/ML Juan SantanaCBC W/AUTO [id number] 00:00:00* Test Item Value Reference Range Interpretation [...] ABS NUCLEATED RBCS (test cod e = 17576) 0.00 K/UL Juan SantanaSEDIMENTATION [id number] 00:00:00* Test Item Value Reference Range Interpretation Comme nts SEDIMENTATION RATE (test cod e = 1017) 27 MM/HOUR Juan Escobar NON-REFLEX TO [id number] 00:00:00* Test Item Value Reference Range Interpretation Comme nts ANTI-NUCLEAR ANTIBODIES (cristhian t code = 3506) NEGATIVE Juan SantanaCOMPREHENSIVE METABOLIC [id number] 00:00:00* Test Item Value Reference Range Interpretation Comme nts GLUCOSE (test code = 2217) 76 MG/DL BUN (test code = 2208) 16 MG/DL CREATININE (test code = 2214) 1.21 MG/DL eGFR AMER. (test cod e = 83917) 65 ML/MIN/1.73 eGFR NON- AMER. (test code = 29136) 56 ML/MIN/1.73 CALC BUN/CREAT (test code = [...] (test code = 2219) 22 U/L Juan [id number] 00:00:00* Test Item Value Reference Range Interpretation Comme nts TSH, THIRD GENERATION (test code = 2821) 1.370 UIU/ML Juan SantanaCBC W/AUTO [id number] 00:00:00* Test Item Value Reference Range Interpretation [...] ABS NUCLEATED RBCS (test cod e = 49073) 0.00 K/UL Juan SantanaSEDIMENTATION [id number] 00:00:00* Test Item Value Reference Range Interpretation Comme nts SEDIMENTATION RATE (test cod e = 1017) 27 MM/HOUR Juan SantanaANA NON-REFLEX TO [id number] 00:00:00* Test Item Value Reference Range Interpretation Comme nts ANTI-NUCLEAR ANTIBODIES (cristhian t code = 3506) NEGATIVE Juan SantanaCOMPREHENSIVE METABOLIC [id number] 00:00:00* Test Item Value Reference Range Interpretation Comme nts GLUCOSE (test code = 2217) 76 MG/DL BUN (test code = 2208) 16 MG/DL CREATININE (test code = 2214) 1.21 MG/DL eGFR AMER. (test cod e = 56247) 65 ML/MIN/1.73 eGFR NON- AMER. (test code = 92944) 56 ML/MIN/1.73 CALC BUN/CREAT (test code = [...] (test code = 2219) 22 U/L Juan [id number] 00:00:00* Test Item Value Reference Range Interpretation Comme nts TSH, THIRD GENERATION (test code = 2821) 1.370 UIU/ML Juan SantanaCBC W/AUTO [id number] 00:00:00* Test Item Value Reference Range Interpretation [...] ABS NUCLEATED RBCS (test cod e = 45468) 0.00 K/UL Juan Richard AustinSEDIMENTATION [id number] 00:00:00* Test Item Value Reference Range Interpretation Comme nts SEDIMENTATION RATE (test cod e = 1017) 27 MM/HOUR Juan SantanaANA NON-REFLEX TO [id number] 00:00:00* Test Item Value Reference Range Interpretation Comme nts ANTI-NUCLEAR ANTIBODIES (cristhian t code = 3506) NEGATIVE Juan [id number] 00:00:00* Test Item Value Reference Range Interpretation Comme nts TSH, THIRD GENERATION (test code = 2821) 1.370 UIU/ML CBC W/AUTO [id number] 00:00:00* Test Item Value Reference Range Interpretation [...] ABS NUCLEATED RBCS (test cod e = 10715) 0.00 K/UL SEDIMENTATION [id number] 00:00:00* Test Item Value Reference Range Interpretation Comme nts SEDIMENTATION RATE (test cod e = 1017) 27 MM/HOUR [place] NON-REFLEX TO [id number] 00:00:00* Test Item Value Reference Range Interpretation Comme nts ANTI-NUCLEAR ANTIBODIES (cristhian t code = 3506) NEGATIVE COMPREHENSIVE METABOLIC [id number] 00:00:00* Test Item Value Reference Range Interpretation Comme nts GLUCOSE (test code = 2217) 76 MG/DL BUN (test code = 2208) 16 MG/DL CREATININE (test code = 2214) 1.21 MG/DL eGFR AMER. (test cod e = 33183) 65 ML/MIN/1.73 eGFR NON- AMER. (test code = 26810) 56 ML/MIN/1.73 CALC BUN/CREAT (test code = [...] ALT (test code = 2219) 22 U/L [id number] 00:00:00* Test Item Value Reference Range Interpretation Comme nts TSH, THIRD GENERATION (test code = 2821) 1.370 UIU/ML CBC W/AUTO [id number] 00:00:00* Test Item Value Reference Range Interpretation [...] ABS NUCLEATED RBCS (test cod e = 87286) 0.00 K/UL SEDIMENTATION [id number] 00:00:00* Test Item Value Reference Range Interpretation Comme nts SEDIMENTATION RATE (test cod e = 1017) 27 MM/HOUR [place] NON-REFLEX TO [id number] 00:00:00* Test Item Value Reference Range Interpretation Comme nts ANTI-NUCLEAR ANTIBODIES (cristhian t code = 3506) NEGATIVE COMPREHENSIVE METABOLIC [id number] 00:00:00* Test Item Value Reference Range Interpretation Comme nts GLUCOSE (test code = 2217) 76 MG/DL BUN (test code = 2208) 16 MG/DL CREATININE (test code = 2214) 1.21 MG/DL eGFR AMER. (test cod e = 86560) 65 ML/MIN/1.73 eGFR NON- AMER. (test code = 60626) 56 ML/MIN/1.73 CALC BUN/CREAT (test code = [...] = 2219) 22 U/L VITAMIN D, 25 [id number] 00:00:00* Test Item Value Reference Range Interpretation Comme [facility] VITAMIN D, 25 OH (test code = 4958) 24 NG/ML Juan [id number] 00:00:00* Test Item Value Reference Range Interpretation Comme nts TSH, THIRD GENERATION (test code = 2821) 1.200 UIU/ML Juan SantanaCOMPREHENSIVE METABOLIC [id number] 00:00:00* Test Item Value Reference Range Interpretation Comme nts GLUCOSE (test code = 2217) 87 MG/DL BUN (test code = 2208) 15 MG/DL CREATININE (test code = 2214) 1.14 MG/DL eGFR AMER. (test cod e = 68714) 70 ML/MIN/1.73 eGFR NON- AMER. (test code = 05532) 60 ML/MIN/1.73 CALC BUN/CREAT (test code = [...] 2219) 23 U/L Juan SantanaVITAMIN D, 25 [id number] 00:00:00* Test Item Value Reference Range Interpretation Comme nts VITAMIN D, 25 OH (test code = 4958) 24 NG/ML Juan SantanaVITAMIN D, 25 [id number] 00:00:00* Test Item Value Reference Range Interpretation Comme nts VITAMIN D, 25 OH (test code = 4958) 24 NG/ML Juan Richard [id number] 00:00:00* Test Item Value Reference Range Interpretation Comme nts TSH, THIRD GENERATION (test code = 2821) 1.200 UIU/ML Juan Richard [id number] 00:00:00* Test Item Value Reference Range Interpretation Comme nts TSH, THIRD GENERATION (test code = 2821) 1.200 UIU/ML Juan Richard [place] [id number] 00:00:00* Test Item Value Reference Range Interpretation Comme nts GLUCOSE (test code = 2217) 87 MG/DL BUN (test code = 2208) 15 MG/DL CREATININE (test code = 2214) 1.14 MG/DL eGFR AMER. (test cod e = 18551) 70 ML/MIN/1.73 eGFR NON- AMER. (test code = 86782) 60 ML/MIN/1.73 CALC BUN/CREAT (test code = [...] code = 2219) 23 U/L Juan Richard [place]IT[place], 25 [id number] 00:00:00* Test Item Value Reference Range Interpretation Comme [facility] VITAMIN D, 25 OH (test code = 4958) 24 NG/ML Juan Richard [id number] 00:00:00* Test Item Value Reference Range Interpretation Comme [facility] TSH, THIRD GENERATION (test code = 2821) 1.200 UIU/ML Juan Richard [place]PREH[place] [id number] 00:00:00* Test Item Value Reference Range Interpretation Comme nts GLUCOSE (test code = 2217) 87 MG/DL BUN (test code = 2208) 15 MG/DL CREATININE (test code = 2214) 1.14 MG/DL eGFR AMER. (test cod e = 83919) 70 ML/MIN/1.73 eGFR NON- AMER. (test code = 22507) 60 ML/MIN/1.73 CALC BUN/CREAT (test code = [...] (test code = 2219) 23 U/L Juan SantanaCOMPREHENSIVE METABOLIC [id number] 00:00:00* Test Item Value Reference Range Interpretation Comme nts GLUCOSE (test code = 2217) 87 MG/DL BUN (test code = 2208) 15 MG/DL CREATININE (test code = 2214) 1.14 MG/DL eGFR AMER. (test cod e = 73853) 70 ML/MIN/1.73 eGFR NON- AMER. (test code = 61521) 60 ML/MIN/1.73 CALC BUN/CREAT (test code = [...] 2219) 23 U/L Juan SantanaVITAMIN D, 25 [id number] 00:00:00* Test Item Value Reference Range Interpretation Comme [facility] VITAMIN D, 25 OH (test code = 4958) 24 NG/ML Juan [id number] 00:00:00* Test Item Value Reference Range Interpretation Comme nts TSH, THIRD GENERATION (test code = 2821) 1.200 UIU/ML Juan SantanaCOMPREHENSIVE METABOLIC [id number] 00:00:00* Test Item Value Reference Range Interpretation Comme nts GLUCOSE (test code = 2217) 87 MG/DL BUN (test code = 2208) 15 MG/DL CREATININE (test code = 2214) 1.14 MG/DL eGFR AMER. (test cod e = 85480) 70 ML/MIN/1.73 eGFR NON- AMER. (test code = 22916) 60 ML/MIN/1.73 CALC BUN/CREAT (test code = [...] 2219) 23 U/L Juan SantanaVITAMIN D, 25 [id number] 00:00:00* Test Item Value Reference Range Interpretation Comme [facility] VITAMIN D, 25 OH (test code = 4958) 24 NG/ML Juan Richard [id number] 00:00:00* Test Item Value Reference Range Interpretation Comme nts TSH, THIRD GENERATION (test code = 2821) 1.200 UIU/ML Juan SantanaCOMPREHENSIVE METABOLIC [id number] 00:00:00* Test Item Value Reference Range Interpretation Comme nts GLUCOSE (test code = 2217) 87 MG/DL BUN (test code = 2208) 15 MG/DL CREATININE (test code = 2214) 1.14 MG/DL eGFR AMER. (test cod e = 03827) 70 ML/MIN/1.73 eGFR NON- AMER. (test code = 00579) 60 ML/MIN/1.73 CALC BUN/CREAT (test code = [...] code = 2219) 23 U/L Juan Richard [place], 25 [id number] 00:00:00* Test Item Value Reference Range Interpretation Comme nts VITAMIN D, 25 [place] (test code = 4958) 24 NG/ML Juan Richard [id number] 00:00:00* Test Item Value Reference Range Interpretation Comme nts TSH, THIRD GENERATION (test code = 2821) 1.200 UIU/ML Juan SantanaCOMPREHENSIVE METABOLIC [id number] 00:00:00* Test Item Value Reference Range Interpretation Comme nts GLUCOSE (test code = 2217) 87 MG/DL BUN (test code = 2208) 15 MG/DL CREATININE (test code = 2214) 1.14 MG/DL eGFR AMER. (test cod e = 32322) 70 ML/MIN/1.73 eGFR NON- AMER. (test code = 86314) 60 ML/MIN/1.73 CALC BUN/CREAT (test code = [...] (test code = 2219) 23 U/L Juan F AustinVITAMIN D, 25 [id number] 00:00:00* Test Item Value Reference Range Interpretation Comme nts VITAMIN D, 25 OH (test code = 4958) 24 NG/ML Juan [id number] 00:00:00* Test Item Value Reference Range Interpretation Comme nts TSH, THIRD GENERATION (test code = 2821) 1.200 UIU/ML Juan SantanaCOMPREHENSIVE METABOLIC [id number] 00:00:00* Test Item Value Reference Range Interpretation Comme nts GLUCOSE (test code = 2217) 87 MG/DL BUN (test code = 2208) 15 MG/DL CREATININE (test code = 2214) 1.14 MG/DL eGFR AMER. (test cod e = 81315) 70 ML/MIN/1.73 eGFR NON- AMER. (test code = 27820) 60 ML/MIN/1.73 CALC BUN/CREAT (test code = [...] 2219) 23 U/L Juan SantanaVITAMIN D, 25 [id number] 00:00:00* Test Item Value Reference Range Interpretation Comme nts VITAMIN D, 25 OH (test code = 4958) 24 NG/ML Juan [id number] 00:00:00* Test Item Value Reference Range Interpretation Comme nts TSH, THIRD GENERATION (test code = 2821) 1.200 UIU/ML Juan SantanaCOMPREHENSIVE METABOLIC [id number] 00:00:00* Test Item Value Reference Range Interpretation Comme nts GLUCOSE (test code = 2217) 87 MG/DL BUN (test code = 2208) 15 MG/DL CREATININE (test code = 2214) 1.14 MG/DL eGFR AMER. (test cod e = 13492) 70 ML/MIN/1.73 eGFR NON- AMER. (test code = 82103) 60 ML/MIN/1.73 CALC BUN/CREAT (test code = [...] 2219) 23 U/L Juan SantanaVITAMIN D, 25 [id number] 00:00:00* Test Item Value Reference Range Interpretation Comme [facility] VITAMIN D, 25 OH (test code = 4958) 24 NG/ML Juan [id number] 00:00:00* Test Item Value Reference Range Interpretation Comme [facility] TSH, THIRD GENERATION (test code = 2821) 1.200 UIU/ML Juan SantanaCOMPREHENSIVE METABOLIC [id number] 00:00:00* Test Item Value Reference Range Interpretation Comme nts GLUCOSE (test code = 2217) 87 MG/DL BUN (test code = 2208) 15 MG/DL CREATININE (test code = 2214) 1.14 MG/DL eGFR AMER. (test cod e = 29841) 70 ML/MIN/1.73 eGFR NON- AMER. (test code = 89139) 60 ML/MIN/1.73 CALC BUN/CREAT (test code = [...] 2219) 23 U/L Juan SantanaVITAMIN D, 25 [id number] 00:00:00* Test Item Value Reference Range Interpretation Comme [facility] VITAMIN D, 25 OH (test code = 4958) 24 NG/ML Juan [id number] 00:00:00* Test Item Value Reference Range Interpretation Comme nts TSH, THIRD GENERATION (test code = 2821) 1.200 UIU/ML Juan SantanaCOMPREHENSIVE METABOLIC [id number] 00:00:00* Test Item Value Reference Range Interpretation Comme nts GLUCOSE (test code = 2217) 87 MG/DL BUN (test code = 2208) 15 MG/DL CREATININE (test code = 2214) 1.14 MG/DL eGFR AMER. (test cod e = 66793) 70 ML/MIN/1.73 eGFR NON- AMER. (test code = 31766) 60 ML/MIN/1.73 CALC BUN/CREAT (test code = [...] 2219) 23 U/L Juan SantanaVITAMIN D, 25 [id number] 00:00:00* Test Item Value Reference Range Interpretation Comme nts VITAMIN D, 25 OH (test code = 4958) 24 NG/ML Juan [id number] 00:00:00* Test Item Value Reference Range Interpretation Comme nts TSH, THIRD GENERATION (test code = 2821) 1.200 UIU/ML Juan SantanaCOMPREHENSIVE METABOLIC [id number] 00:00:00* Test Item Value Reference Range Interpretation Comme nts GLUCOSE (test code = 2217) 87 MG/DL BUN (test code = 2208) 15 MG/DL CREATININE (test code = 2214) 1.14 MG/DL eGFR AMER. (test cod e = 62976) 70 ML/MIN/1.73 eGFR NON- AMER. (test code = 81638) 60 ML/MIN/1.73 CALC BUN/CREAT (test code = [...] 2219) 23 U/L Juan SantanaVITAMIN D, 25 [id number] 00:00:00* Test Item Value Reference Range Interpretation Comme nts VITAMIN D, 25 OH (test code = 4958) 24 NG/ML Juan [id number] 00:00:00* Test Item Value Reference Range Interpretation Comme nts TSH, THIRD GENERATION (test code = 2821) 1.200 UIU/ML Juan SantanaCOMPREHENSIVE METABOLIC [id number] 00:00:00* Test Item Value Reference Range Interpretation Comme nts GLUCOSE (test code = 2217) 87 MG/DL BUN (test code = 2208) 15 MG/DL CREATININE (test code = 2214) 1.14 MG/DL eGFR AMER. (test cod e = 12731) 70 ML/MIN/1.73 eGFR NON- AMER. (test code = 82411) 60 ML/MIN/1.73 CALC BUN/CREAT (test code = [...] 2219) 23 U/L Juan SantanaVITAMIN D, 25 [id number] 00:00:00* Test Item Value Reference Range Interpretation Comme [facility] VITAMIN D, 25 OH (test code = 4958) 24 NG/ML Juan [id number] 00:00:00* Test Item Value Reference Range Interpretation Comme nts TSH, THIRD GENERATION (test code = 2821) 1.200 UIU/ML Juan SantanaCOMPREHENSIVE METABOLIC [id number] 00:00:00* Test Item Value Reference Range Interpretation Comme nts GLUCOSE (test code = 2217) 87 MG/DL BUN (test code = 2208) 15 MG/DL CREATININE (test code = 2214) 1.14 MG/DL eGFR AMER. (test cod e = 47020) 70 ML/MIN/1.73 eGFR NON- AMER. (test code = 06217) 60 ML/MIN/1.73 CALC BUN/CREAT (test code = 2235) 13 RATIO SODIUM (test code = 2231) 138 MEQ/L POTASSIUM (test code = 2228) 4.5 MEQ/L CHLORIDE (test code = 2215) 100 MEQ/L CARBON DIOXIDE (test code = 2206) 23 MEQ/L CALCIUM (test code = 2209) 9.5 MG/DL PROTEIN, TOTAL (test code = 222) 7.3 G/DL ALBUMIN (test code = 220) 4.4 G/DL CALC GLOBULIN (test code = 2240) 2.9 G/DL CALC A/G RATIO (test code = 2234) 1.5 RATIO BILIRUBIN, TOTAL (test code = 2206) 0.6 MG/DL ALKALINE PHOSPHATASE (test code = 2204) 110 U/L AST (test code = 2218) 26 U/L ALT (test code = 2219) 23 U/L Juan SantanaVITAMIN D, 25 [id number] 00:00:00* Test Item Value Reference Range Interpretation Comme [facility] VITAMIN D, 25 OH (test code = 4958) 24 NG/ML Juan [id number] 00:00:00* Test Item Value Reference Range Interpretation Comme [facility] TSH, THIRD GENERATION (test code = 2821) 1.200 UIU/ML Juan Richard MaxCOMPREHENSIVE METABOLIC [id number] 00:00:00* Test Item Value Reference Range Interpretation Comme nts GLUCOSE (test code = 7) 87 MG/DL BUN (test code = 2208) 15 MG/DL CREATININE (test code = 2214) 1.14 MG/DL eGFR AMER. (test cod e = 93378) 70 ML/MIN/1.73 eGFR NON- AMER. (test code = 93889) 60 ML/MIN/1.73 CALC BUN/CREAT (test code = [...] 2219) 23 U/L Juan SantanaVITAMIN D, 25 [id number] 00:00:00* Test Item Value Reference Range Interpretation Comme [facility] VITAMIN D, 25 OH (test code = 4958) 24 NG/ML Juan [id number] 00:00:00* Test Item Value Reference Range Interpretation Comme nts TSH, THIRD GENERATION (test code = 2821) 1.200 UIU/ML Juan SantanaCOMPREHENSIVE METABOLIC [id number] 00:00:00* Test Item Value Reference Range Interpretation Comme nts GLUCOSE (test code = 2217) 87 MG/DL BUN (test code = 2208) 15 MG/DL CREATININE (test code = 2214) 1.14 MG/DL eGFR AMER. (test cod e = 99915) 70 ML/MIN/1.73 eGFR NON- AMER. (test code = 69586) 60 ML/MIN/1.73 CALC BUN/CREAT (test code = [...] 2219) 23 U/L Juan SantanaVITAMIN D, 25 [id number] 00:00:00* Test Item Value Reference Range Interpretation Comme nts VITAMIN D, 25 OH (test code = 4958) 24 NG/ML [id number] 00:00:00* Test Item Value Reference Range Interpretation Comme nts TSH, THIRD GENERATION (test code = 2821) 1.200 UIU/ML COMPREHENSIVE METABOLIC [id number] 00:00:00* Test Item Value Reference Range Interpretation Comme nts GLUCOSE (test code = 2217) 87 MG/DL BUN (test code = 2208) 15 MG/DL CREATININE (test code = 2214) 1.14 MG/DL eGFR AMER. (test cod e = 95595) 70 ML/MIN/1.73 eGFR NON- AMER. (test code = 41982) 60 ML/MIN/1.73 CALC BUN/CREAT (test code = [...] = 2219) 23 U/L VITAMIN D, 25 [id number] 00:00:00* Test Item Value Reference Range Interpretation Comme nts VITAMIN D, 25 OH (test code = 4958) 24 NG/ML [id number] 00:00:00* Test Item Value Reference Range Interpretation Comme nts TSH, THIRD GENERATION (test code = 2821) 1.200 UIU/ML COMPREHENSIVE METABOLIC [id number] 00:00:00* Test Item Value Reference Range Interpretation Comme nts GLUCOSE (test code = 2217) 87 MG/DL BUN (test code = 2208) 15 MG/DL CREATININE (test code = 2214) 1.14 MG/DL eGFR AMER. (test cod e = 50270) 70 ML/MIN/1.73 eGFR NON- AMER. (test code = 59268) 60 ML/MIN/1.73 CALC BUN/CREAT (test code = [...] ALT (test code = 2219) 23 U/L HEMOGLOBIN [id number] 00:00:00* Test Item Value Reference Range Interpretation Comme nts HEMOGLOBIN A1c (test code = 79676) 5.5 % Juan Richard AustinLIPID [id number] 00:00:00* Test Item Value Reference Range Interpretation Comme nts CHOLESTEROL (test code = 2210) 207 MG/DL TRIGLYCERIDES (test code = 2232) 156 MG/DL HDL CHOLESTEROL (test code = 2220) 65 MG/DL CALC LDL CHOL (test code = 2237) 115 MG/DL RISK RATIO LDL/HDL (test cod e = 2238) 1.77 RATIO Juan SantanaCOMPREHENSIVE METABOLIC [id number] 00:00:00* Test Item Value Reference Range Interpretation Comme nts GLUCOSE (test code = 2217) 91 MG/DL BUN (test code = 2207) 15 MG/DL CREATININE (test code = 2214) 0.99 MG/DL eGFR AMER. (test cod e = ) 83 ML/MIN/1.73 eGFR NON- AMER. (test code = ) 72 ML/MIN/1.73 CALC BUN/CREAT (test code = 223) 15 RATIO SODIUM (test code = 223) 137 MEQ/L POTASSIUM (test code = 2228) 4.4 MEQ/L CHLORIDE (test code = 2215) 103 MEQ/L CARBON DIOXIDE (test code = 220) 24 MEQ/L CALCIUM (test code = 220) 9.0 MG/DL PROTEIN, TOTAL (test code = 2228) 7.1 G/DL ALBUMIN (test code = 2200) 4.4 G/DL CALC GLOBULIN (test code = 2240) 2.7 G/DL CALC A/G RATIO (test code = 223) 1.6 RATIO BILIRUBIN, TOTAL (test code = 2206) 0.6 MG/DL ALKALINE PHOSPHATASE (test code = 2203) 119 U/L AST (test code = 2217) 98 U/L ALT (test code = 221) 130 U/L Juan [id number] 00:00:00* Test Item Value Reference Range Interpretation Comme [facility] TSH, THIRD GENERATION (test code = 2821) 7.820 UIU/ML Juan SantanaVITAMIN D, 25 [id number] 00:00:00* Test Item Value Reference Range Interpretation Comme [facility] VITAMIN D, 25 OH (test code = 4958) 26 NG/ML Juan SantanaHEMOGLOBIN [id number] 00:00:00* Test Item Value Reference Range Interpretation Comme [facility] HEMOGLOBIN A1c (test code = 20989) 5.5 % Juan SantanaLIPID [id number] 00:00:00* Test Item Value Reference Range Interpretation Comme nts CHOLESTEROL (test code = 2209) 207 MG/DL TRIGLYCERIDES (test code = 2231) 156 MG/DL HDL CHOLESTEROL (test code = 2219) 65 MG/DL CALC LDL CHOL (test code = 2236) 115 MG/DL RISK RATIO LDL/HDL (test cod e = 2237) 1.77 RATIO Juan SantanaCOMPREHENSIVE METABOLIC [id number] 00:00:00* Test Item Value Reference Range Interpretation Comme nts GLUCOSE (test code = 2217) 91 MG/DL BUN (test code = 2208) 15 MG/DL CREATININE (test code = 2214) 0.99 MG/DL eGFR AMER. (test cod e = 52782) 83 ML/MIN/1.73 eGFR NON- AMER. (test code = 61347) 72 ML/MIN/1.73 CALC BUN/CREAT (test code = [...] (test code = 2219) 130 U/L Juan [id number] 00:00:00* Test Item Value Reference Range Interpretation Comme [facility] TSH, THIRD GENERATION (test code = 2821) 7.820 UIU/ML Juan SantanaVITAMIN D, 25 [id number] 00:00:00* Test Item Value Reference Range Interpretation Comme [facility] VITAMIN D, 25 OH (test code = 4958) 26 NG/ML Juan SantanaLIPID [id number] 00:00:00* Test Item Value Reference Range Interpretation Comme nts CHOLESTEROL (test code = 2210) 207 MG/DL TRIGLYCERIDES (test code = 2232) 156 MG/DL HDL CHOLESTEROL (test code = 2220) 65 MG/DL CALC LDL CHOL (test code = 2237) 115 MG/DL RISK RATIO LDL/HDL (test cod e = 2238) 1.77 RATIO Juan SantanaHEMOGLOBIN [id number] 00:00:00* Test Item Value Reference Range Interpretation Comme oneal HEMOGLOBIN A1c (test code = 74758) 5.5 % Juan SantanaLIPID [id number] 00:00:00* Test Item Value Reference Range Interpretation Comme nts CHOLESTEROL (test code = 2210) 207 MG/DL TRIGLYCERIDES (test code = 2232) 156 MG/DL HDL CHOLESTEROL (test code = 2220) 65 MG/DL CALC LDL CHOL (test code = 2237) 115 MG/DL RISK RATIO LDL/HDL (test cod e = 2238) 1.77 RATIO Juan SantanaCOMPREHENSIVE METABOLIC [id number] 00:00:00* Test Item Value Reference Range Interpretation Comme nts GLUCOSE (test code = 2217) 91 MG/DL BUN (test code = 2208) 15 MG/DL CREATININE (test code = 2214) 0.99 MG/DL eGFR AMER. (test cod e = 30114) 83 ML/MIN/1.73 eGFR NON- AMER. (test code = 33570) 72 ML/MIN/1.73 CALC BUN/CREAT (test code = [...] (test code = 2219) 130 U/L Juan [id number] 00:00:00* Test Item Value Reference Range Interpretation Comme nts TSH, THIRD GENERATION (test code = 2821) 7.820 UIU/ML Juan SantanaVITAMIN D, 25 [id number] 00:00:00* Test Item Value Reference Range Interpretation Comme nts VITAMIN D, 25 OH (test code = 4958) 26 NG/ML Juan SantanaCOMPREHENSIVE METABOLIC [id number] 00:00:00* Test Item Value Reference Range Interpretation Comme nts GLUCOSE (test code = 2217) 91 MG/DL BUN (test code = 2208) 15 MG/DL CREATININE (test code = 2214) 0.99 MG/DL eGFR AMER. (test cod e = 44832) 83 ML/MIN/1.73 eGFR NON- AMER. (test code = 61825) 72 ML/MIN/1.73 CALC BUN/CREAT (test code = [...] code = 2219) 130 U/L Juan SantanaHEMOGLOBIN [id number] 00:00:00* Test Item Value Reference Range Interpretation Comme nts HEMOGLOBIN A1c (test code = 33972) 5.5 % Juan SantanaLIPID [id number] 00:00:00* Test Item Value Reference Range Interpretation Comme nts CHOLESTEROL (test code = 2210) 207 MG/DL TRIGLYCERIDES (test code = 2232) 156 MG/DL HDL CHOLESTEROL (test code = 2220) 65 MG/DL CALC LDL CHOL (test code = 2237) 115 MG/DL RISK RATIO LDL/HDL (test cod e = 2238) 1.77 RATIO Juan SantanaCOMPREHENSIVE METABOLIC [id number] 00:00:00* Test Item Value Reference Range Interpretation Comme nts GLUCOSE (test code = 2217) 91 MG/DL BUN (test code = 2208) 15 MG/DL CREATININE (test code = 2214) 0.99 MG/DL eGFR AMER. (test cod e = 87545) 83 ML/MIN/1.73 eGFR NON- AMER. (test code = 02624) 72 ML/MIN/1.73 CALC BUN/CREAT (test code = [...] (test code = 2219) 130 U/L Juan [id number] 00:00:00* Test Item Value Reference Range Interpretation Comme [facility] TSH, THIRD GENERATION (test code = 2821) 7.820 UIU/ML Juan SantanaVITAMIN D, 25 [id number] 00:00:00* Test Item Value Reference Range Interpretation Comme [facility] VITAMIN D, 25 OH (test code = 4958) 26 NG/ML Juan Richard [id number] 00:00:00* Test Item Value Reference Range Interpretation Comme [facility] TSH, THIRD GENERATION (test code = 2821) 7.820 UIU/ML Juan SantanaHEMOGLOBIN [id number] 00:00:00* Test Item Value Reference Range Interpretation Comme [facility] HEMOGLOBIN A1c (test code = 42429) 5.5 % Juan SantanaLIPID [id number] 00:00:00* Test Item Value Reference Range Interpretation Comme [facility] CHOLESTEROL (test code = 2210) 207 MG/DL TRIGLYCERIDES (test code = 2232) 156 MG/DL HDL CHOLESTEROL (test code = 2220) 65 MG/DL CALC LDL CHOL (test code = 2237) 115 MG/DL RISK RATIO LDL/HDL (test cod e = 2238) 1.77 RATIO Juan SantanaCOMPREHENSIVE METABOLIC [id number] 00:00:00* Test Item Value Reference Range Interpretation Comme nts GLUCOSE (test code = 2217) 91 MG/DL BUN (test code = 2208) 15 MG/DL CREATININE (test code = 2214) 0.99 MG/DL eGFR AMER. (test cod e = 64716) 83 ML/MIN/1.73 eGFR NON- AMER. (test code = 21334) 72 ML/MIN/1.73 CALC BUN/CREAT (test code = [...] (test code = 2219) 130 U/L Juan SantanaVITAMIN D, 25 [id number] 00:00:00* Test Item Value Reference Range Interpretation Comme [facility] VITAMIN D, 25 OH (test code = 4958) 26 NG/ML Juan [id number] 00:00:00* Test Item Value Reference Range Interpretation Comme [facility] TSH, THIRD GENERATION (test code = 2821) 7.820 UIU/ML Juan SantanaVITAMIN D, 25 [id number] 00:00:00* Test Item Value Reference Range Interpretation Comme [facility] VITAMIN D, 25 OH (test code = 4958) 26 NG/ML uJan SantanaHEMOGLOBIN [id number] 00:00:00* Test Item Value Reference Range Interpretation Comme [facility] HEMOGLOBIN A1c (test code = 94805) 5.5 % Juan SantanaLIPID [id number] 00:00:00* Test Item Value Reference Range Interpretation Comme nts CHOLESTEROL (test code = 2210) 207 MG/DL TRIGLYCERIDES (test code = 2232) 156 MG/DL HDL CHOLESTEROL (test code = 2220) 65 MG/DL CALC LDL CHOL (test code = 2237) 115 MG/DL RISK RATIO LDL/HDL (test cod e = 2238) 1.77 RATIO Juan SantanaCOMPREHENSIVE METABOLIC [id number] 00:00:00* Test Item Value Reference Range Interpretation Comme nts GLUCOSE (test code = 2217) 91 MG/DL BUN (test code = 2208) 15 MG/DL CREATININE (test code = 2214) 0.99 MG/DL eGFR AMER. (test cod e = 76779) 83 ML/MIN/1.73 eGFR NON- AMER. (test code = 89524) 72 ML/MIN/1.73 CALC BUN/CREAT (test code = [...] (test code = 2219) 130 U/L Juan [id number] 00:00:00* Test Item Value Reference Range Interpretation Comme nts TSH, THIRD GENERATION (test code = 2821) 7.820 UIU/ML Juan SantanaVITAMIN D, 25 [id number] 00:00:00* Test Item Value Reference Range Interpretation Comme nts VITAMIN D, 25 OH (test code = 4958) 26 NG/ML Juan SantanaHEMOGLOBIN [id number] 00:00:00* Test Item Value Reference Range Interpretation Comme nts HEMOGLOBIN A1c (test code = 04619) 5.5 % Juan SantanaLIPID [id number] 00:00:00* Test Item Value Reference Range Interpretation Comme nts CHOLESTEROL (test code = 2210) 207 MG/DL TRIGLYCERIDES (test code = 2232) 156 MG/DL HDL CHOLESTEROL (test code = 2220) 65 MG/DL CALC LDL CHOL (test code = 2237) 115 MG/DL RISK RATIO LDL/HDL (test cod e = 2238) 1.77 RATIO Juan SantanaCOMPREHENSIVE METABOLIC [id number] 00:00:00* Test Item Value Reference Range Interpretation Comme nts GLUCOSE (test code = 2217) 91 MG/DL BUN (test code = 2208) 15 MG/DL CREATININE (test code = 2214) 0.99 MG/DL eGFR AMER. (test cod e = 56668) 83 ML/MIN/1.73 eGFR NON- AMER. (test code = 60002) 72 ML/MIN/1.73 CALC BUN/CREAT (test code = [...] (test code = 2219) 130 U/L Juan [id number] 00:00:00* Test Item Value Reference Range Interpretation Comme nts TSH, THIRD GENERATION (test code = 2821) 7.820 UIU/ML Juan SantanaVITAMIN D, 25 [id number] 00:00:00* Test Item Value Reference Range Interpretation Comme oneal VITAMIN D, 25 OH (test code = 4958) 26 NG/ML Juan SantanaHEMOGLOBIN [id number] 00:00:00* Test Item Value Reference Range Interpretation Comme one[facility] HEMOGLOBIN A1c (test code = 69484) 5.5 % Juan SantanaLIPID [id number] 00:00:00* Test Item Value Reference Range Interpretation Comme nts CHOLESTEROL (test code = 2210) 207 MG/DL TRIGLYCERIDES (test code = 2232) 156 MG/DL HDL CHOLESTEROL (test code = 2220) 65 MG/DL CALC LDL CHOL (test code = 2237) 115 MG/DL RISK RATIO LDL/HDL (test cod e = 2238) 1.77 RATIO Juan SantanaCOMPREHENSIVE METABOLIC [id number] 00:00:00* Test Item Value Reference Range Interpretation Comme nts GLUCOSE (test code = 2217) 91 MG/DL BUN (test code = 2208) 15 MG/DL CREATININE (test code = 2214) 0.99 MG/DL eGFR AMER. (test cod e = 31021) 83 ML/MIN/1.73 eGFR NON- AMER. (test code = 46060) 72 ML/MIN/1.73 CALC BUN/CREAT (test code = [...] (test code = 2219) 130 U/L Juan [id number] 00:00:00* Test Item Value Reference Range Interpretation Comme oneal TSH, THIRD GENERATION (test code = 2821) 7.820 UIU/ML Juan SantanaVITAMIN D, 25 [id number] 00:00:00* Test Item Value Reference Range Interpretation Comme oneal VITAMIN D, 25 OH (test code = 4958) 26 NG/ML Juan SantanaHEMOGLOBIN [id number] 00:00:00* Test Item Value Reference Range Interpretation Comme oneal HEMOGLOBIN A1c (test code = 01269) 5.5 % Juan SantanaLIPID [id number] 00:00:00* Test Item Value Reference Range Interpretation Comme nts CHOLESTEROL (test code = 2210) 207 MG/DL TRIGLYCERIDES (test code = 2232) 156 MG/DL HDL CHOLESTEROL (test code = 2220) 65 MG/DL CALC LDL CHOL (test code = 2237) 115 MG/DL RISK RATIO LDL/HDL (test cod e = 2238) 1.77 RATIO Juan SantanaCOMPREHENSIVE METABOLIC [id number] 00:00:00* Test Item Value Reference Range Interpretation Comme oneal GLUCOSE (test code = 2217) 91 MG/DL BUN (test code = 2208) 15 MG/DL CREATININE (test code = 2214) 0.99 MG/DL eGFR AMER. (test cod e = 80806) 83 ML/MIN/1.73 eGFR NON- AMER. (test code = 90923) 72 ML/MIN/1.73 CALC BUN/CREAT (test code = [...] (test code = 2219) 130 U/L Juan [id number] 00:00:00* Test Item Value Reference Range Interpretation Comme oneal TSH, THIRD GENERATION (test code = 2821) 7.820 UIU/ML Juan SantanaVITAMIN D, 25 [id number] 00:00:00* Test Item Value Reference Range Interpretation Comme oneal VITAMIN D, 25 OH (test code = 4958) 26 NG/ML Juan SantanaHEMOGLOBIN [id number] 00:00:00* Test Item Value Reference Range Interpretation Comme oneal HEMOGLOBIN A1c (test code = 70211) 5.5 % Juan SantanaLIPID [id number] 00:00:00* Test Item Value Reference Range Interpretation Comme nts CHOLESTEROL (test code = 2210) 207 MG/DL TRIGLYCERIDES (test code = 2232) 156 MG/DL HDL CHOLESTEROL (test code = 2220) 65 MG/DL CALC LDL CHOL (test code = 2237) 115 MG/DL RISK RATIO LDL/HDL (test cod e = 2238) 1.77 RATIO Juan SantanaCOMPREHENSIVE METABOLIC [id number] 00:00:00* Test Item Value Reference Range Interpretation Comme oneal GLUCOSE (test code = 2217) 91 MG/DL BUN (test code = 2208) 15 MG/DL CREATININE (test code = 2214) 0.99 MG/DL eGFR AMER. (test cod e = ) 83 ML/MIN/1.73 eGFR NON- AMER. (test code = 89469) 72 ML/MIN/1.73 CALC BUN/CREAT (test code = [...] (test code = 2219) 130 U/L Juan [id number] 00:00:00* Test Item Value Reference Range Interpretation Comme oneal TSH, THIRD GENERATION (test code = 2821) 7.820 UIU/ML Juan SantanaVITAMIN D, 25 [id number] 00:00:00* Test Item Value Reference Range Interpretation Comme oneal VITAMIN D, 25 OH (test code = 4958) 26 NG/ML Juan SantanaHEMOGLOBIN [id number] 00:00:00* Test Item Value Reference Range Interpretation Comme oneal HEMOGLOBIN A1c (test code = 79602) 5.5 % Juan SantanaLIPID [id number] 00:00:00* Test Item Value Reference Range Interpretation Comme nts CHOLESTEROL (test code = 2210) 207 MG/DL TRIGLYCERIDES (test code = 2232) 156 MG/DL HDL CHOLESTEROL (test code = 2220) 65 MG/DL CALC LDL CHOL (test code = 2237) 115 MG/DL RISK RATIO LDL/HDL (test cod e = 2238) 1.77 RATIO Juan SantanaCOMPREHENSIVE METABOLIC [id number] 00:00:00* Test Item Value Reference Range Interpretation Comme nts GLUCOSE (test code = 2217) 91 MG/DL BUN (test code = 2208) 15 MG/DL CREATININE (test code = 2214) 0.99 MG/DL eGFR AMER. (test cod e = 58559) 83 ML/MIN/1.73 eGFR NON- AMER. (test code = 89108) 72 ML/MIN/1.73 CALC BUN/CREAT (test code = [...] (test code = 2219) 130 U/L Juan [id number] 00:00:00* Test Item Value Reference Range Interpretation Comme oneal TSH, THIRD GENERATION (test code = 2821) 7.820 UIU/ML Juan SantanaVITAMIN D, 25 [id number] 00:00:00* Test Item Value Reference Range Interpretation Comme oneal VITAMIN D, 25 OH (test code = 4958) 26 NG/ML Juan SantanaHEMOGLOBIN [id number] 00:00:00* Test Item Value Reference Range Interpretation Comme oneal HEMOGLOBIN A1c (test code = 47319) 5.5 % Juan SantanaLIPID [id number] 00:00:00* Test Item Value Reference Range Interpretation Comme nts CHOLESTEROL (test code = 2210) 207 MG/DL TRIGLYCERIDES (test code = 2232) 156 MG/DL HDL CHOLESTEROL (test code = 2220) 65 MG/DL CALC LDL CHOL (test code = 2237) 115 MG/DL RISK RATIO LDL/HDL (test cod e = 2238) 1.77 RATIO Juan SantanaCOMPREHENSIVE METABOLIC [id number] 00:00:00* Test Item Value Reference Range Interpretation Comme nts GLUCOSE (test code = 2217) 91 MG/DL BUN (test code = 2208) 15 MG/DL CREATININE (test code = 2214) 0.99 MG/DL eGFR AMER. (test cod e = 01033) 83 ML/MIN/1.73 eGFR NON- AMER. (test code = 65468) 72 ML/MIN/1.73 CALC BUN/CREAT (test code = [...] 1.6 RATIO BILIRUBIN, TOTAL (test code = 7) 0.6 MG/DL ALKALINE PHOSPHATASE (test code = 4) 119 U/L AST (test code = 2218) 98 U/L ALT (test code = 2219) 130 U/L Juan [id number] 00:00:00* Test Item Value Reference Range Interpretation Comme oneal TSH, THIRD GENERATION (test code = 2821) 7.820 UIU/ML Juan SantanaVITAMIN D, 25 [id number] 00:00:00* Test Item Value Reference Range Interpretation Comme oneal VITAMIN D, 25 OH (test code = 4958) 26 NG/ML Juan SantanaHEMOGLOBIN [id number] 00:00:00* Test Item Value Reference Range Interpretation Comme oneal HEMOGLOBIN A1c (test code = 19359) 5.5 % Juan SantanaLIPID [id number] 00:00:00* Test Item Value Reference Range Interpretation Comme nts CHOLESTEROL (test code = 2210) 207 MG/DL TRIGLYCERIDES (test code = 2232) 156 MG/DL HDL CHOLESTEROL (test code = 2220) 65 MG/DL CALC LDL CHOL (test code = 2237) 115 MG/DL RISK RATIO LDL/HDL (test cod e = 2238) 1.77 RATIO Juan SantanaCOMPREHENSIVE METABOLIC [id number] 00:00:00* Test Item Value Reference Range Interpretation Comme nts GLUCOSE (test code = 2217) 91 MG/DL BUN (test code = 8) 15 MG/DL CREATININE (test code = 2214) 0.99 MG/DL eGFR AMER. (test cod e = 14790) 83 ML/MIN/1.73 eGFR NON- AMER. (test code = 75371) 72 ML/MIN/1.73 CALC BUN/CREAT (test code = [...] ALT (test code = 221) 130 U/L Juan [id number] 00:00:00* Test Item Value Reference Range Interpretation Comme [facility] TSH, THIRD GENERATION (test code = 2821) 7.820 UIU/ML Juan SantanaVITAMIN D, 25 [id number] 00:00:00* Test Item Value Reference Range Interpretation Comme [facility] VITAMIN D, 25 OH (test code = 4958) 26 NG/ML Juan SantanaHEMOGLOBIN [id number] 00:00:00* Test Item Value Reference Range Interpretation Comme [facility] HEMOGLOBIN A1c (test code = 28113) 5.5 % Juan SantanaLIPID [id number] 00:00:00* Test Item Value Reference Range Interpretation Comme nts CHOLESTEROL (test code = 2210) 207 MG/DL TRIGLYCERIDES (test code = 2232) 156 MG/DL HDL CHOLESTEROL (test code = 2220) 65 MG/DL CALC LDL CHOL (test code = 2237) 115 MG/DL RISK RATIO LDL/HDL (test cod e = 2238) 1.77 RATIO Juan SantanaCOMPREHENSIVE METABOLIC [id number] 00:00:00* Test Item Value Reference Range Interpretation Comme nts GLUCOSE (test code = 2217) 91 MG/DL BUN (test code = 2208) 15 MG/DL CREATININE (test code = 2214) 0.99 MG/DL eGFR AMER. (test cod e = 32436) 83 ML/MIN/1.73 eGFR NON- AMER. (test code = 27207) 72 ML/MIN/1.73 CALC BUN/CREAT (test code = [...] 221) 98 U/L ALT (test code = 2219) 130 U/L Juan [id number] 00:00:00* Test Item Value Reference Range Interpretation Comme [facility] TSH, THIRD GENERATION (test code = 2821) 7.820 UIU/ML Juan Richard [place], 25 [id number] 00:00:00* Test Item Value Reference Range Interpretation Comme [facility] VITAMIN D, 25 OH (test code = 4958) 26 NG/ML Juan SantanaHEMOGLOBIN [id number] 00:00:00* Test Item Value Reference Range Interpretation Comme [facility] HEMOGLOBIN A1c (test code = 10459) 5.5 % Juan Richard [place] [id number] 00:00:00* Test Item Value Reference Range Interpretation Comme [facility] HEMOGLOBIN A1c (test code = 13100) 5.5 % Juan Richard [place] [id number] 00:00:00* Test Item Value Reference Range Interpretation Comme nts CHOLESTEROL (test code = 2210) 207 MG/DL TRIGLYCERIDES (test code = 2232) 156 MG/DL HDL CHOLESTEROL (test code = 2220) 65 MG/DL CALC LDL CHOL (test code = 2237) 115 MG/DL RISK RATIO LDL/HDL (test cod e = 2238) 1.77 RATIO Juan SantanaCOMPREHENSIVE METABOLIC [id number] 00:00:00* Test Item Value Reference Range Interpretation Comme nts GLUCOSE (test code = 2217) 91 MG/DL BUN (test code = 2208) 15 MG/DL CREATININE (test code = 2214) 0.99 MG/DL eGFR AMER. (test cod e = 42048) 83 ML/MIN/1.73 eGFR NON- AMER. (test code = 59156) 72 ML/MIN/1.73 CALC BUN/CREAT (test code = [...] (test code = 2219) 130 U/L Juan [id number] 00:00:00* Test Item Value Reference Range Interpretation Comme [facility] TSH, THIRD GENERATION (test code = 2821) 7.820 UIU/ML Juan SantanaVITAMIN D, 25 [id number] 00:00:00* Test Item Value Reference Range Interpretation Comme [facility] VITAMIN D, 25 OH (test code = 4958) 26 NG/ML Juan SantanaHEMOGLOBIN [id number] 00:00:00* Test Item Value Reference Range Interpretation Comme [facility] HEMOGLOBIN A1c (test code = 89901) 5.5 % LIPID [id number] 00:00:00* Test Item Value Reference Range Interpretation Comme nts CHOLESTEROL (test code = 2210) 207 MG/DL TRIGLYCERIDES (test code = 2232) 156 MG/DL HDL CHOLESTEROL (test code = 2220) 65 MG/DL CALC LDL CHOL (test code = 2237) 115 MG/DL RISK RATIO LDL/HDL (test cod e = 223) 1.77 RATIO COMPREHENSIVE METABOLIC [id number] 00:00:00* Test Item Value Reference Range Interpretation Comme nts GLUCOSE (test code = 2217) 91 MG/DL BUN (test code = 2208) 15 MG/DL CREATININE (test code = 2214) 0.99 MG/DL eGFR AMER. (test cod e = 94857) 83 ML/MIN/1.73 eGFR NON- AMER. (test code = 96955) 72 ML/MIN/1.73 CALC BUN/CREAT (test code = [...] ALT (test code = 2219) 130 U/L [id number] 00:00:00* Test Item Value Reference Range Interpretation Comme [facility] TSH, THIRD GENERATION (test code = 2821) 7.820 UIU/ML VITAMIN D, 25 [id number] 00:00:00* Test Item Value Reference Range Interpretation Comme [facility] VITAMIN D, 25 OH (test code = 4958) 26 NG/ML HEMOGLOBIN [id number] 00:00:00* Test Item Value Reference Range Interpretation Comme [facility] HEMOGLOBIN A1c (test code = 70885) 5.5 % LIPID [id number] 00:00:00* Test Item Value Reference Range Interpretation Comme nts CHOLESTEROL (test code = 2210) 207 MG/DL TRIGLYCERIDES (test code = 2232) 156 MG/DL HDL CHOLESTEROL (test code = 2220) 65 MG/DL CALC LDL CHOL (test code = 2237) 115 MG/DL RISK RATIO LDL/HDL (test cod e = 223) 1.77 RATIO COMPREHENSIVE METABOLIC [id number] 00:00:00* Test Item Value Reference Range Interpretation Comme nts GLUCOSE (test code = 2217) 91 MG/DL BUN (test code = 2208) 15 MG/DL CREATININE (test code = 2214) 0.99 MG/DL eGFR AMER. (test cod e = 63850) 83 ML/MIN/1.73 eGFR NON- AMER. (test code = 67856) 72 ML/MIN/1.73 CALC BUN/CREAT (test code = [...] ALT (test code = 2219) 130 U/L [id number] 00:00:00* Test Item Value Reference Range Interpretation Comme nts TSH, THIRD GENERATION (test code = 2821) 7.820 UIU/ML VITAMIN D, 25 [id number] 00:00:00* Test Item Value Reference Range Interpretation Comme nts VITAMIN D, 25 OH (test code = 4958) 26 NG/ML NOTE: [ADDED]2020-03-31 00:00:00* Test Item Value Reference Range Interpretation Comme nts NOTE: (test code = 998) (NOTE) DINAH Cordon [ADDED]2020-03-31 00:00:00* Test Item Value Reference Range Interpretation Comme nts TSH, THIRD GENERATION (test code = 2821) 1.020 UIU/ML DINAH Cordon [ADDED]2020-03-31 00:00:00* Test Item Value Reference Range Interpretation Comme nts TSH, THIRD GENERATION (test code = 2821) 1.020 UIU/ML Juan Richard AustinNOTE: [ADDED]2020-03-31 00:00:00* Test Item Value Reference Range Interpretation Comme nts NOTE: (test code = 998) (NOTE) Juan Richard AustinNOTE: [ADDED]2020-03-31 00:00:00* Test Item [...] nts NOTE: (test code = 998) (NOTE) DINAH Cordon GENERATION [ADDED]2020-03-31 00:00:00* Test Item Value Reference [...] NOTE: (test code = 998) (NOTE) Juan Petyt THIRD GENERATION [ADDED]2020-03-31 00:00:00* Test Item Value [...] nts NOTE: (test code = 998) (NOTE) DINAH Cordon GENERATION [ADDED]2020-03-31 00:00:00* Test Item Value Reference [...] (test code = 2821) 1.020 UIU/ML Juan SantanaNOTE: [ADDED]2020-03-31 00:00:00* Test Item Value Reference Range [...] (test code = 2821) 1.020 UIU/ML Juan Petty, THIRD GENERATION [ADDED]2020-03-31 00:00:00* Test Item Value [...] code = 998) (NOTE) VITAMIN D, 25 [id number] 00:00:00* Test Item Value Reference Range Interpretation Comme nts VITAMIN D, 25 OH (test code = 4958) 34 NG/ML Juan Hilary AustinVITAMIN D, 25 [id number] 00:00:00* Test Item Value Reference Range Interpretation Comme nts VITAMIN D, 25 OH (test code = 4958) 34 NG/ML Juan F AustinVITAMIN D, 25 [id number] 00:00:00* Test Item Value Reference Range Interpretation Comme nts VITAMIN D, 25 OH (test code = 4958) 34 NG/ML Juan F AustinVITAMIN D, 25 [id number] 00:00:00* Test Item Value Reference Range Interpretation Comme nts VITAMIN D, 25 OH (test code = 4958) 34 NG/ML Juan Richard AustinVITAMIN D, 25 [id number] 00:00:00* Test Item Value Reference Range Interpretation Comme nts VITAMIN D, 25 OH (test code = 4958) 34 NG/ML Juan F AustinVITAMIN D, 25 [id number] 00:00:00* Test Item Value Reference Range Interpretation Comme nts VITAMIN D, 25 OH (test code = 4958) 34 NG/ML Juan F AustinVITAMIN D, 25 [id number] 00:00:00* Test Item Value Reference Range Interpretation Comme nts VITAMIN D, 25 OH (test code = 4958) 34 NG/ML Juan F AustinVITAMIN D, 25 [id number] 00:00:00* Test Item Value Reference Range Interpretation Comme nts VITAMIN D, 25 OH (test code = 4958) 34 NG/ML Juan F AustinVITAMIN D, 25 [id number] 00:00:00* Test Item Value Reference Range Interpretation Comme nts VITAMIN D, 25 OH (test code = 4958) 34 NG/ML Juan F AustinVITAMIN D, 25 [id number] 00:00:00* Test Item Value Reference Range Interpretation Comme nts VITAMIN D, 25 OH (test code = 4958) 34 NG/ML Juan F AustinVITAMIN D, 25 [id number] 00:00:00* Test Item Value Reference Range Interpretation Comme nts VITAMIN D, 25 OH (test code = 4958) 34 NG/ML Juan Richard AustinVITAMIN D, 25 [id number] 00:00:00* Test Item Value Reference Range Interpretation Comme nts VITAMIN D, 25 OH (test code = 4958) 34 NG/ML Juan Richard AustinVITAMIN D, 25 [id number] 00:00:00* Test Item Value Reference Range Interpretation Comme nts VITAMIN D, 25 OH (test code = 4958) 34 NG/ML Juan Richard AustinVITAMIN D, 25 [id number] 00:00:00* Test Item Value Reference Range Interpretation Comme nts VITAMIN D, 25 OH (test code = 4958) 34 NG/ML Juan Richard AustinVITAMIN D, 25 [id number] 00:00:00* Test Item Value Reference Range Interpretation Comme nts VITAMIN D, 25 OH (test code = 4958) 34 NG/ML Juan SantanaVITAMIN D, 25 [id number] 00:00:00* Test Item Value Reference Range Interpretation Comme nts VITAMIN D, 25 OH (test code = 4958) 34 NG/ML Juan Richard AustinVITAMIN D, 25 [id number] 00:00:00* Test Item Value Reference Range Interpretation Comme nts VITAMIN D, 25 OH (test code = 4958) 34 NG/ML VITAMIN D, 25 [id number] 00:00:00* Test Item Value Reference Range Interpretation Comme nts VITAMIN D, 25 OH (test code = 4958) 34 NG/ML COMPREHENSIVE METABOLIC [id number] 00:00:00* Test Item Value Reference Range Interpretation Comme nts GLUCOSE (test code = 2217) 96 MG/DL BUN (test code = 2208) 15 MG/DL CREATININE (test code = 2214) 1.22 MG/DL eGFR AMER. (test cod e = 00525) 65 ML/MIN/1.73 eGFR NON- AMER. (test code = 12686) 56 ML/MIN/1.73 CALC BUN/CREAT (test code = [...] code = 2219) 18 U/L Juan Richard [place] [id number] 00:00:00* Test Item Value Reference Range Interpretation Comme nts CHOLESTEROL (test code = 2210) 213 MG/DL TRIGLYCERIDES (test code = 2232) 145 MG/DL HDL CHOLESTEROL (test code = 2220) 46 MG/DL CALC LDL CHOL (test code = 2237) 140 MG/DL RISK RATIO LDL/HDL (test cod e = 2238) 3.04 RATIO Juan SantanaCOMPREHENSIVE METABOLIC [id number] 00:00:00* Test Item Value Reference Range Interpretation Comme nts GLUCOSE (test code = 2217) 96 MG/DL BUN (test code = 2207) 15 MG/DL CREATININE (test code = 2214) 1.22 MG/DL eGFR AMER. (test cod e = 32297) 65 ML/MIN/1.73 eGFR NON- AMER. (test code = 04199) 56 ML/MIN/1.73 CALC BUN/CREAT (test code = [...] = 2219) 18 U/L Juan Richard AustinLIPID [id number] 00:00:00* Test Item Value Reference Range Interpretation Comme nts CHOLESTEROL (test code = 2210) 213 MG/DL TRIGLYCERIDES (test code = 2232) 145 MG/DL HDL CHOLESTEROL (test code = 2220) 46 MG/DL CALC LDL CHOL (test code = 2237) 140 MG/DL RISK RATIO LDL/HDL (test cod e = 2238) 3.04 RATIO Juan Richard AustinCOMPREHENSIVE METABOLIC [id number] 00:00:00* Test Item Value Reference Range Interpretation Comme nts GLUCOSE (test code = 2217) 96 MG/DL BUN (test code = 2208) 15 MG/DL CREATININE (test code = 2214) 1.22 MG/DL eGFR AMER. (test cod e = 83367) 65 ML/MIN/1.73 eGFR NON- AMER. (test code = 15500) 56 ML/MIN/1.73 CALC BUN/CREAT (test code = [...] code = 2219) 18 U/L Juan Richard AustinCOMPREHENSIVE METABOLIC [id number] 00:00:00* Test Item Value Reference Range Interpretation Comme nts GLUCOSE (test code = 2217) 96 MG/DL BUN (test code = 2208) 15 MG/DL CREATININE (test code = 2214) 1.22 MG/DL eGFR AMER. (test cod e = 59224) 65 ML/MIN/1.73 eGFR NON- AMER. (test code = 67045) 56 ML/MIN/1.73 CALC BUN/CREAT (test code = 2235) 12 RATIO SODIUM (test code = 2231) 142 MEQ/L POTASSIUM (test code = 2228) 4.5 MEQ/L CHLORIDE (test code = 2215) 105 MEQ/L CARBON DIOXIDE (test code = 2206) 23 MEQ/L CALCIUM (test code = 2209) 9.7 MG/DL PROTEIN, TOTAL (test code = 222) 7.8 G/DL ALBUMIN (test code = 2201) 4.7 G/DL CALC GLOBULIN (test code = 2240) 3.1 G/DL CALC A/G RATIO (test code = 2234) 1.5 RATIO BILIRUBIN, TOTAL (test code = 2207) 0.7 MG/DL ALKALINE PHOSPHATASE (test code = 2204) 84 U/L AST (test code = 2218) 20 U/L ALT (test code = 2219) 18 U/L Juan Richard AustinLIPID [id number] 00:00:00* Test Item Value Reference Range Interpretation Comme nts CHOLESTEROL (test code = 2210) 213 MG/DL TRIGLYCERIDES (test code = 2232) 145 MG/DL HDL CHOLESTEROL (test code = 2220) 46 MG/DL CALC LDL CHOL (test code = 2237) 140 MG/DL RISK RATIO LDL/HDL (test cod e = 2238) 3.04 RATIO Juan F AustinLIPID [id number] 00:00:00* Test Item Value Reference Range Interpretation Comme nts CHOLESTEROL (test code = 2210) 213 MG/DL TRIGLYCERIDES (test code = 2232) 145 MG/DL HDL CHOLESTEROL (test code = 2220) 46 MG/DL CALC LDL CHOL (test code = 2237) 140 MG/DL RISK RATIO LDL/HDL (test cod e = 2238) 3.04 RATIO Juan F AustinCOMPREHENSIVE METABOLIC [id number] 00:00:00* Test Item Value Reference Range Interpretation Comme nts GLUCOSE (test code = 2217) 96 MG/DL BUN (test code = 2208) 15 MG/DL CREATININE (test code = 2214) 1.22 MG/DL eGFR AMER. (test cod e = 90160) 65 ML/MIN/1.73 eGFR NON- AMER. (test code = 46745) 56 ML/MIN/1.73 CALC BUN/CREAT (test code = 2235) 12 RATIO SODIUM (test code = 2231) 142 MEQ/L POTASSIUM (test code = 2228) 4.5 MEQ/L CHLORIDE (test code = 2215) 105 MEQ/L CARBON DIOXIDE (test code = 2206) 23 MEQ/L CALCIUM (test code = 2209) 9.7 MG/DL PROTEIN, TOTAL (test code = 222) 7.8 G/DL ALBUMIN (test code = 2201) 4.7 G/DL CALC GLOBULIN (test code = 2240) 3.1 G/DL CALC A/G RATIO (test code = 2234) 1.5 RATIO BILIRUBIN, TOTAL (test code = 2207) 0.7 MG/DL ALKALINE PHOSPHATASE (test code = 2204) 84 U/L AST (test code = 2218) 20 U/L ALT (test code = 2219) 18 U/L Juan Hilary AustinLIPID [id number] 00:00:00* Test Item Value Reference Range Interpretation Comme nts CHOLESTEROL (test code = 2210) 213 MG/DL TRIGLYCERIDES (test code = 2232) 145 MG/DL HDL CHOLESTEROL (test code = 2220) 46 MG/DL CALC LDL CHOL (test code = 2237) 140 MG/DL RISK RATIO LDL/HDL (test cod e = 2238) 3.04 RATIO Juan Richard MaxCOMPREHENSIVE METABOLIC [id number] 00:00:00* Test Item Value Reference Range Interpretation Comme nts GLUCOSE (test code = 2217) 96 MG/DL BUN (test code = 2208) 15 MG/DL CREATININE (test code = 2214) 1.22 MG/DL eGFR AMER. (test cod e = 37639) 65 ML/MIN/1.73 eGFR NON- AMER. (test code = 31904) 56 ML/MIN/1.73 CALC BUN/CREAT (test code = [...] code = 2219) 18 U/L Juan Richard [place] [id number] 00:00:00* Test Item Value Reference Range Interpretation Comme nts CHOLESTEROL (test code = 2210) 213 MG/DL TRIGLYCERIDES (test code = 2232) 145 MG/DL HDL CHOLESTEROL (test code = 2220) 46 MG/DL CALC LDL CHOL (test code = 2237) 140 MG/DL RISK RATIO LDL/HDL (test cod e = 2238) 3.04 RATIO Juan SantanaCOMPREHENSIVE METABOLIC [id number] 00:00:00* Test Item Value Reference Range Interpretation Comme nts GLUCOSE (test code = 2217) 96 MG/DL BUN (test code = 2208) 15 MG/DL CREATININE (test code = 2214) 1.22 MG/DL eGFR AMER. (test cod e = 57092) 65 ML/MIN/1.73 eGFR NON- AMER. (test code = 68991) 56 ML/MIN/1.73 CALC BUN/CREAT (test code = [...] = 2219) 18 U/L Juan Richard AustinLIPID [id number] 00:00:00* Test Item Value Reference Range Interpretation Comme nts CHOLESTEROL (test code = 2210) 213 MG/DL TRIGLYCERIDES (test code = 2232) 145 MG/DL HDL CHOLESTEROL (test code = 2220) 46 MG/DL CALC LDL CHOL (test code = 2237) 140 MG/DL RISK RATIO LDL/HDL (test cod e = 2238) 3.04 RATIO Juan SantanaCOMPREHENSIVE METABOLIC [id number] 00:00:00* Test Item Value Reference Range Interpretation Comme nts GLUCOSE (test code = 2217) 96 MG/DL BUN (test code = 2208) 15 MG/DL CREATININE (test code = 2214) 1.22 MG/DL eGFR AMER. (test cod e = 70948) 65 ML/MIN/1.73 eGFR NON- AMER. (test code = 73388) 56 ML/MIN/1.73 CALC BUN/CREAT (test code = [...] = 2219) 18 U/L Juan Richard AustinLIPID [id number] 00:00:00* Test Item Value Reference Range Interpretation Comme nts CHOLESTEROL (test code = 2210) 213 MG/DL TRIGLYCERIDES (test code = 2232) 145 MG/DL HDL CHOLESTEROL (test code = 2220) 46 MG/DL CALC LDL CHOL (test code = 2237) 140 MG/DL RISK RATIO LDL/HDL (test cod e = 2238) 3.04 RATIO Juan Richard AustinCOMPREHENSIVE METABOLIC [id number] 00:00:00* Test Item Value Reference Range Interpretation Comme nts GLUCOSE (test code = 2217) 96 MG/DL BUN (test code = 2208) 15 MG/DL CREATININE (test code = 2214) 1.22 MG/DL eGFR AMER. (test cod e = 11780) 65 ML/MIN/1.73 eGFR NON- AMER. (test code = 44526) 56 ML/MIN/1.73 CALC BUN/CREAT (test code = [...] = 2219) 18 U/L Juan Richard AustinLIPID [id number] 00:00:00* Test Item Value Reference Range Interpretation Comme nts CHOLESTEROL (test code = 2210) 213 MG/DL TRIGLYCERIDES (test code = 2232) 145 MG/DL HDL CHOLESTEROL (test code = 2220) 46 MG/DL CALC LDL CHOL (test code = 2237) 140 MG/DL RISK RATIO LDL/HDL (test cod e = 2238) 3.04 RATIO Juan Richard AustinCOMPREHENSIVE METABOLIC [id number] 00:00:00* Test Item Value Reference Range Interpretation Comme nts GLUCOSE (test code = 2217) 96 MG/DL BUN (test code = 2208) 15 MG/DL CREATININE (test code = 2214) 1.22 MG/DL eGFR AMER. (test cod e = 30469) 65 ML/MIN/1.73 eGFR NON- AMER. (test code = 64631) 56 ML/MIN/1.73 CALC BUN/CREAT (test code = [...] code = 2219) 18 U/L Juan Hilary AustinLIPID [id number] 00:00:00* Test Item Value Reference Range Interpretation Comme nts CHOLESTEROL (test code = 2210) 213 MG/DL TRIGLYCERIDES (test code = 2232) 145 MG/DL HDL CHOLESTEROL (test code = 2220) 46 MG/DL CALC LDL CHOL (test code = 2237) 140 MG/DL RISK RATIO LDL/HDL (test cod e = 2238) 3.04 RATIO Juan Richard MaxCOMPREHENSIVE METABOLIC [id number] 00:00:00* Test Item Value Reference Range Interpretation Comme nts GLUCOSE (test code = 2217) 96 MG/DL BUN (test code = 2208) 15 MG/DL CREATININE (test code = 2214) 1.22 MG/DL eGFR AMER. (test cod e = 17089) 65 ML/MIN/1.73 eGFR NON- AMER. (test code = 83665) 56 ML/MIN/1.73 CALC BUN/CREAT (test code = [...] = 2219) 18 U/L Juan Richard AustinLIPID [id number] 00:00:00* Test Item Value Reference Range Interpretation Comme nts CHOLESTEROL (test code = 2210) 213 MG/DL TRIGLYCERIDES (test code = 2232) 145 MG/DL HDL CHOLESTEROL (test code = 2220) 46 MG/DL CALC LDL CHOL (test code = 2237) 140 MG/DL RISK RATIO LDL/HDL (test cod e = 2238) 3.04 RATIO Juan SantanaCOMPREHENSIVE METABOLIC [id number] 00:00:00* Test Item Value Reference Range Interpretation Comme nts GLUCOSE (test code = 2217) 96 MG/DL BUN (test code = 2208) 15 MG/DL CREATININE (test code = 2214) 1.22 MG/DL eGFR AMER. (test cod e = 99929) 65 ML/MIN/1.73 eGFR NON- AMER. (test code = 67443) 56 ML/MIN/1.73 CALC BUN/CREAT (test code = [...] = 2219) 18 U/L Juan Richard AustinLIPID [id number] 00:00:00* Test Item Value Reference Range Interpretation Comme nts CHOLESTEROL (test code = 2210) 213 MG/DL TRIGLYCERIDES (test code = 2232) 145 MG/DL HDL CHOLESTEROL (test code = 2220) 46 MG/DL CALC LDL CHOL (test code = 2237) 140 MG/DL RISK RATIO LDL/HDL (test cod e = 2238) 3.04 RATIO Juan SantanaCOMPREHENSIVE METABOLIC [id number] 00:00:00* Test Item Value Reference Range Interpretation Comme nts GLUCOSE (test code = 2217) 96 MG/DL BUN (test code = 2208) 15 MG/DL CREATININE (test code = 2214) 1.22 MG/DL eGFR AMER. (test cod e = 84254) 65 ML/MIN/1.73 eGFR NON- AMER. (test code = 12999) 56 ML/MIN/1.73 CALC BUN/CREAT (test code = [...] = 2219) 18 U/L Juan Richard AustinLIPID [id number] 00:00:00* Test Item Value Reference Range Interpretation Comme nts CHOLESTEROL (test code = 2210) 213 MG/DL TRIGLYCERIDES (test code = 2232) 145 MG/DL HDL CHOLESTEROL (test code = 2220) 46 MG/DL CALC LDL CHOL (test code = 2237) 140 MG/DL RISK RATIO LDL/HDL (test cod e = 2238) 3.04 RATIO Juan Richard AustinCOMPREHENSIVE METABOLIC [id number] 00:00:00* Test Item Value Reference Range Interpretation Comme nts GLUCOSE (test code = 2217) 96 MG/DL BUN (test code = 2208) 15 MG/DL CREATININE (test code = 2214) 1.22 MG/DL eGFR AMER. (test cod e = 37899) 65 ML/MIN/1.73 eGFR NON- AMER. (test code = 73273) 56 ML/MIN/1.73 CALC BUN/CREAT (test code = [...] = 2219) 18 U/L Juan Richard AustinLIPID [id number] 00:00:00* Test Item Value Reference Range Interpretation Comme nts CHOLESTEROL (test code = 2210) 213 MG/DL TRIGLYCERIDES (test code = 2232) 145 MG/DL HDL CHOLESTEROL (test code = 2220) 46 MG/DL CALC LDL CHOL (test code = 2237) 140 MG/DL RISK RATIO LDL/HDL (test cod e = 2238) 3.04 RATIO Juan Richard AustinCOMPREHENSIVE METABOLIC [id number] 00:00:00* Test Item Value Reference Range Interpretation Comme nts GLUCOSE (test code = 2217) 96 MG/DL BUN (test code = 2208) 15 MG/DL CREATININE (test code = 2214) 1.22 MG/DL eGFR AMER. (test cod e = 68928) 65 ML/MIN/1.73 eGFR NON- AMER. (test code = 11491) 56 ML/MIN/1.73 CALC BUN/CREAT (test code = [...] = 2219) 18 U/L Juan Richard AustinLIPID [id number] 00:00:00* Test Item Value Reference Range Interpretation Comme nts CHOLESTEROL (test code = 2210) 213 MG/DL TRIGLYCERIDES (test code = 2232) 145 MG/DL HDL CHOLESTEROL (test code = 2220) 46 MG/DL CALC LDL CHOL (test code = 2237) 140 MG/DL RISK RATIO LDL/HDL (test cod e = 2238) 3.04 RATIO Juan SantanaCOMPREHENSIVE METABOLIC [id number] 00:00:00* Test Item Value Reference Range Interpretation Comme nts GLUCOSE (test code = 2217) 96 MG/DL BUN (test code = 2208) 15 MG/DL CREATININE (test code = 2214) 1.22 MG/DL eGFR AMER. (test cod e = 07549) 65 ML/MIN/1.73 eGFR NON- AMER. (test code = 20784) 56 ML/MIN/1.73 CALC BUN/CREAT (test code = [...] code = 2219) 18 U/L Juan Richard [place] [id number] 00:00:00* Test Item Value Reference Range Interpretation Comme nts CHOLESTEROL (test code = 2210) 213 MG/DL TRIGLYCERIDES (test code = 2232) 145 MG/DL HDL CHOLESTEROL (test code = 2220) 46 MG/DL CALC LDL CHOL (test code = 2237) 140 MG/DL RISK RATIO LDL/HDL (test cod e = 2238) 3.04 RATIO Juan SantanaCOMPREHENSIVE METABOLIC [id number] 00:00:00* Test Item Value Reference Range Interpretation Comme nts GLUCOSE (test code = 2217) 96 MG/DL BUN (test code = 2208) 15 MG/DL CREATININE (test code = 2214) 1.22 MG/DL eGFR AMER. (test cod e = 99278) 65 ML/MIN/1.73 eGFR NON- AMER. (test code = 37451) 56 ML/MIN/1.73 CALC BUN/CREAT (test code = [...] (test code = 2219) 18 U/L LIPID [id number] 00:00:00* Test Item Value Reference Range Interpretation Comme nts CHOLESTEROL (test code = 2210) 213 MG/DL TRIGLYCERIDES (test code = 2232) 145 MG/DL HDL CHOLESTEROL (test code = 2220) 46 MG/DL CALC LDL CHOL (test code = 2237) 140 MG/DL RISK RATIO LDL/HDL (test cod e = 2238) 3.04 RATIO COMPREHENSIVE METABOLIC [id number] 00:00:00* Test Item Value Reference Range Interpretation Comme nts GLUCOSE (test code = 2217) 96 MG/DL BUN (test code = 2208) 15 MG/DL CREATININE (test code = 2214) 1.22 MG/DL eGFR AMER. (test cod e = 46428) 65 ML/MIN/1.73 eGFR NON- AMER. (test code = 74878) 56 ML/MIN/1.73 CALC BUN/CREAT (test code = [...] (test code = 2219) 18 U/L LIPID [id number] 00:00:00* Test Item Value Reference Range Interpretation Comme nts CHOLESTEROL (test code = 2210) 213 MG/DL TRIGLYCERIDES (test code = 2232) 145 MG/DL HDL CHOLESTEROL (test code = 2220) 46 MG/DL CALC LDL CHOL (test code = 2237) 140 MG/DL RISK RATIO LDL/HDL (test cod e = 2238) 3.04 RATIO HEMOGLOBIN [id number] 00:00:00* Test Item Value Reference Range Interpretation Comme nts HEMOGLOBIN A1c (test code = 21285) 5.3 % Juan Richard AustinHEMOGLOBIN [id number] 00:00:00* Test Item Value Reference Range Interpretation Comme nts HEMOGLOBIN A1c (test code = 89512) 5.3 % Juan Richard AustinHEMOGLOBIN [id number] 00:00:00* Test Item Value Reference Range Interpretation Comme nts HEMOGLOBIN A1c (test code = 90640) 5.3 % Juan Richard AustinHEMOGLOBIN [id number] 00:00:00* Test Item Value Reference Range Interpretation Comme nts HEMOGLOBIN A1c (test code = 07998) 5.3 % Juan Richard AustinHEMOGLOBIN [id number] 00:00:00* Test Item Value Reference Range Interpretation Comme nts HEMOGLOBIN A1c (test code = 63473) 5.3 % Juan Richard AustinHEMOGLOBIN [id number] 00:00:00* Test Item Value Reference Range Interpretation Comme nts HEMOGLOBIN A1c (test code = 36689) 5.3 % Juan Richard AustinHEMOGLOBIN [id number] 00:00:00* Test Item Value Reference Range Interpretation Comme nts HEMOGLOBIN A1c (test code = 31025) 5.3 % Juan Richard AustinHEMOGLOBIN [id number] 00:00:00* Test Item Value Reference Range Interpretation Comme nts HEMOGLOBIN A1c (test code = 66290) 5.3 % Juan Hilary AustinHEMOGLOBIN [id number] 00:00:00* Test Item Value Reference Range Interpretation Comme nts HEMOGLOBIN A1c (test code = 60051) 5.3 % Juan F AustinHEMOGLOBIN [id number] 00:00:00* Test Item Value Reference Range Interpretation Comme nts HEMOGLOBIN A1c (test code = 69001) 5.3 % Juan Richard AustinHEMOGLOBIN [id number] 00:00:00* Test Item Value Reference Range Interpretation Comme nts HEMOGLOBIN A1c (test code = 58213) 5.3 % Juan Richard AustinHEMOGLOBIN [id number] 00:00:00* Test Item Value Reference Range Interpretation Comme nts HEMOGLOBIN A1c (test code = 12545) 5.3 % Juan F AustinHEMOGLOBIN [id number] 00:00:00* Test Item Value Reference Range Interpretation Comme nts HEMOGLOBIN A1c (test code = 71698) 5.3 % Juan Richard AustinHEMOGLOBIN [id number] 00:00:00* Test Item Value Reference Range Interpretation Comme nts HEMOGLOBIN A1c (test code = 17079) 5.3 % Juan Richard AustinHEMOGLOBIN [id number] 00:00:00* Test Item Value Reference Range Interpretation Comme nts HEMOGLOBIN A1c (test code = 49560) 5.3 % Juan Richard AustinHEMOGLOBIN [id number] 00:00:00* Test Item Value Reference Range Interpretation Comme nts HEMOGLOBIN A1c (test code = 94745) 5.3 % Juan Richard AustinHEMOGLOBIN [id number] 00:00:00* Test Item Value Reference Range Interpretation Comme nts HEMOGLOBIN A1c (test code = 47085) 5.3 % HEMOGLOBIN [id number] 00:00:00* Test Item Value Reference Range Interpretation Comme nts HEMOGLOBIN A1c (test code = 02872) 5.3 % [id number] 00:00:00* Test Item Value Reference Range Interpretation Comme nts TSH, THIRD GENERATION (test code = 2821) 1.950 UIU/ML Juan Richard [id number] 00:00:00* Test Item Value Reference Range Interpretation Comme nts TSH, THIRD GENERATION (test code = 2821) 1.950 UIU/ML Juan F [id number] 00:00:00* Test Item Value Reference Range Interpretation Comme nts TSH, THIRD GENERATION (test code = 2821) 1.950 UIU/ML Juan F [id number] 00:00:00* Test Item Value Reference Range Interpretation Comme nts TSH, THIRD GENERATION (test code = 2821) 1.950 UIU/ML Juan Richard [id number] 00:00:00* Test Item Value Reference Range Interpretation Comme nts TSH, THIRD GENERATION (test code = 2821) 1.950 UIU/ML Juan F [id number] 00:00:00* Test Item Value Reference Range Interpretation Comme nts TSH, THIRD GENERATION (test code = 2821) 1.950 UIU/ML Juan F [id number] 00:00:00* Test Item Value Reference Range Interpretation Comme nts TSH, THIRD GENERATION (test code = 2821) 1.950 UIU/ML Juan F [id number] 00:00:00* Test Item Value Reference Range Interpretation Comme nts TSH, THIRD GENERATION (test code = 2821) 1.950 UIU/ML Juan F [id number] 00:00:00* Test Item Value Reference Range Interpretation Comme nts TSH, THIRD GENERATION (test code = 2821) 1.950 UIU/ML Juan F [id number] 00:00:00* Test Item Value Reference Range Interpretation Comme nts TSH, THIRD GENERATION (test code = 2821) 1.950 UIU/ML Juan F [id number] 00:00:00* Test Item Value Reference Range Interpretation Comme nts TSH, THIRD GENERATION (test code = 2821) 1.950 UIU/ML Juan F [id number] 00:00:00* Test Item Value Reference Range Interpretation Comme nts TSH, THIRD GENERATION (test code = 2821) 1.950 UIU/ML Juan F [id number] 00:00:00* Test Item Value Reference Range Interpretation Comme nts TSH, THIRD GENERATION (test code = 2821) 1.950 UIU/ML Juan F [id number] 00:00:00* Test Item Value Reference Range Interpretation Comme nts TSH, THIRD GENERATION (test code = 2821) 1.950 UIU/ML Juan F [id number] 00:00:00* Test Item Value Reference Range Interpretation Comme nts TSH, THIRD GENERATION (test code = 2821) 1.950 UIU/ML Juan F [id number] 00:00:00* Test Item Value Reference Range Interpretation Comme nts TSH, THIRD GENERATION (test code = 2821) 1.950 UIU/ML Juan [id number] 00:00:00* Test Item Value Reference Range Interpretation Comme nts TSH, THIRD GENERATION (test code = 2821) 1.950 UIU/ML [id number] 00:00:00* Test Item Value Reference Range Interpretation Comme nts TSH, THIRD GENERATION (test code = 2821) 1.950 UIU/ML VITAMIN D, 25 [id number] 00:00:00* Test Item Value Reference Range Interpretation Comme nts VITAMIN D, 25 OH (test code = 4958) 48 NG/ML Juan Richard AustinVITAMIN D, 25 [id number] 00:00:00* Test Item Value Reference Range Interpretation Comme nts VITAMIN D, 25 OH (test code = 4958) 48 NG/ML Juan SantanaTHYROID II PROFILE (T3U, T4, T7, TSH)2019-11-27 00:00:00* Test Item Value Reference Range Interpretation Comme nts T-UPTAKE (test code = 2817) 36.1 % THYROX. BIND. CAPAC. (test c ode = 47899) 0.9 T4 (THYROXINE) (test code = 2819) 11.7 UG/DL CORRECTED T4 (FTI) (test cod e = 2820) 13.0 UG/DL TSH, THIRD GENERATION (test code = 2821) 0.075 UIU/ML Juan SantanaVITAMIN D, 25 [id number] 00:00:00* Test Item Value Reference Range Interpretation Comme nts VITAMIN D, 25 OH (test code = 4958) 48 NG/ML Juan Richard [place] PRO[place] (T3U, T4, T7, TSH)2019-11-27 00:00:00* Test Item Value Reference Range Interpretation Comme nts T-UPTAKE (test code = 2817) 36.1 % THYROX. BIND. CAPAC. (test c ode = 88032) 0.9 T4 (THYROXINE) (test code = 2819) 11.7 UG/DL CORRECTED T4 (FTI) (test cod e = 2820) 13.0 UG/DL TSH, THIRD GENERATION (test code = 2821) 0.075 UIU/ML Juan SantanaVITAMIN D, 25 [id number] 00:00:00* Test Item Value Reference Range Interpretation Comme nts VITAMIN D, 25 OH (test code = 4958) 48 NG/ML Juan Richard AustinTHYROID II PROFILE (T3U, T4, T7, TSH)2019-11-27 00:00:00* Test Item Value Reference Range Interpretation Comme nts T-UPTAKE (test code = 2817) 36.1 % THYROX. BIND. CAPAC. (test c ode = 57186) 0.9 T4 (THYROXINE) (test code = 2819) 11.7 UG/DL CORRECTED T4 (FTI) (test cod e = 2820) 13.0 UG/DL TSH, THIRD GENERATION (test code = 2821) 0.075 UIU/ML Juan Richard AustinTHYROID II PROFILE (T3U, T4, T7, TSH)2019-11-27 00:00:00* Test Item Value Reference Range Interpretation Comme nts T-UPTAKE (test code = 2817) 36.1 % THYROX. BIND. CAPAC. (test c ode = 17410) 0.9 T4 (THYROXINE) (test code = 2819) 11.7 UG/DL CORRECTED T4 (FTI) (test cod e = 2820) 13.0 UG/DL TSH, THIRD GENERATION (test code = 2821) 0.075 UIU/ML Juan Richard AustinVITAMIN D, 25 [id number] 00:00:00* Test Item Value Reference Range Interpretation Comme nts VITAMIN D, 25 OH (test code = 4958) 48 NG/ML Juan Richard AustinTHYROID II PROFILE (T3U, T4, T7, TSH)2019-11-27 00:00:00* Test Item Value Reference Range Interpretation Comme nts T-UPTAKE (test code = 2817) 36.1 % THYROX. BIND. CAPAC. (test c ode = 83651) 0.9 T4 (THYROXINE) (test code = 2819) 11.7 UG/DL CORRECTED T4 (FTI) (test cod e = 2820) 13.0 UG/DL TSH, THIRD GENERATION (test code = 2821) 0.075 UIU/ML Juan Richard AustinVITAMIN D, 25 [id number] 00:00:00* Test Item Value Reference Range Interpretation Comme nts VITAMIN D, 25 OH (test code = 4958) 48 NG/ML Juan Richard AustinTHYROID II PROFILE (T3U, T4, T7, TSH)2019-11-27 00:00:00* Test Item Value Reference Range Interpretation Comme nts T-UPTAKE (test code = 2817) 36.1 % THYROX. BIND. CAPAC. (test c ode = 54637) 0.9 T4 (THYROXINE) (test code = 2819) 11.7 UG/DL CORRECTED T4 (FTI) (test cod e = 2820) 13.0 UG/DL TSH, THIRD GENERATION (test code = 2821) 0.075 UIU/ML Juan Richard AustinVITAMIN D, 25 [id number] 00:00:00* Test Item Value Reference Range Interpretation Comme nts VITAMIN D, 25 OH (test code = 4958) 48 NG/ML Juan Richard AustinTHYROID II PROFILE (T3U, T4, T7, TSH)2019-11-27 00:00:00* Test Item Value Reference Range Interpretation Comme nts T-UPTAKE (test code = 2817) 36.1 % THYROX. BIND. CAPAC. (test c ode = 26281) 0.9 T4 (THYROXINE) (test code = 2819) 11.7 UG/DL CORRECTED T4 (FTI) (test cod e = 2820) 13.0 UG/DL TSH, THIRD GENERATION (test code = 2821) 0.075 UIU/ML Juan Richard AustinVITAMIN D, 25 [id number] 00:00:00* Test Item Value Reference Range Interpretation Comme nts VITAMIN D, 25 OH (test code = 4958) 48 NG/ML Juan Richard AustinTHYROID II PROFILE (T3U, T4, T7, TSH)2019-11-27 00:00:00* Test Item Value Reference Range Interpretation Comme nts T-UPTAKE (test code = 2817) 36.1 % THYROX. BIND. CAPAC. (test c ode = 05372) 0.9 T4 (THYROXINE) (test code = 2819) 11.7 UG/DL CORRECTED T4 (FTI) (test cod e = 2820) 13.0 UG/DL TSH, THIRD GENERATION (test code = 2821) 0.075 UIU/ML Juan Richard AustinVITAMIN D, 25 [id number] 00:00:00* Test Item Value Reference Range Interpretation Comme nts VITAMIN D, 25 OH (test code = 4958) 48 NG/ML Juan Richard AustinTHYROID II PROFILE (T3U, T4, T7, TSH)2019-11-27 00:00:00* Test Item Value Reference Range Interpretation Comme nts T-UPTAKE (test code = 2817) 36.1 % THYROX. BIND. CAPAC. (test c ode = 77479) 0.9 T4 (THYROXINE) (test code = 2819) 11.7 UG/DL CORRECTED T4 (FTI) (test cod e = 2820) 13.0 UG/DL TSH, THIRD GENERATION (test code = 2821) 0.075 UIU/ML Juan Richard AustinVITAMIN D, 25 [id number] 00:00:00* Test Item Value Reference Range Interpretation Comme nts VITAMIN D, 25 OH (test code = 4958) 48 NG/ML Juan Richard AustinTHYROID II PROFILE (T3U, T4, T7, TSH)2019-11-27 00:00:00* Test Item Value Reference Range Interpretation Comme nts T-UPTAKE (test code = 2817) 36.1 % THYROX. BIND. CAPAC. (test c ode = 92091) 0.9 T4 (THYROXINE) (test code = 2819) 11.7 UG/DL CORRECTED T4 (FTI) (test cod e = 2820) 13.0 UG/DL TSH, THIRD GENERATION (test code = 2821) 0.075 UIU/ML Juan Richard AustinVITAMIN D, 25 [id number] 00:00:00* Test Item Value Reference Range Interpretation Comme nts VITAMIN D, 25 OH (test code = 4958) 48 NG/ML Juan Richard AustinTHYROID II PROFILE (T3U, T4, T7, TSH)2019-11-27 00:00:00* Test Item Value Reference Range Interpretation Comme nts T-UPTAKE (test code = 2817) 36.1 % THYROX. BIND. CAPAC. (test c ode = 94801) 0.9 T4 (THYROXINE) (test code = 2819) 11.7 UG/DL CORRECTED T4 (FTI) (test cod e = 2820) 13.0 UG/DL TSH, THIRD GENERATION (test code = 2821) 0.075 UIU/ML Juan AustinVITAMIN D, 25 [id number] 00:00:00* Test Item Value Reference Range Interpretation Comme nts VITAMIN D, 25 OH (test code = 4958) 48 NG/ML Juan Richard AustinTHYROID II PROFILE (T3U, T4, T7, TSH)2019-11-27 00:00:00* Test Item Value Reference Range Interpretation Comme nts T-UPTAKE (test code = 2817) 36.1 % THYROX. BIND. CAPAC. (test c ode = 42788) 0.9 T4 (THYROXINE) (test code = 2819) 11.7 UG/DL CORRECTED T4 (FTI) (test cod e = 2820) 13.0 UG/DL TSH, THIRD GENERATION (test code = 2821) 0.075 UIU/ML Juan Richard AustinVITAMIN D, 25 [id number] 00:00:00* Test Item Value Reference Range Interpretation Comme nts VITAMIN D, 25 OH (test code = 4958) 48 NG/ML Juan Richard AustinTHYROID II PROFILE (T3U, T4, T7, TSH)2019-11-27 00:00:00* Test Item Value Reference Range Interpretation Comme nts T-UPTAKE (test code = 2817) 36.1 % THYROX. BIND. CAPAC. (test c ode = 28085) 0.9 T4 (THYROXINE) (test code = 2819) 11.7 UG/DL CORRECTED T4 (FTI) (test cod e = 2820) 13.0 UG/DL TSH, THIRD GENERATION (test code = 2821) 0.075 UIU/ML Juan Richard AustinVITAMIN D, 25 [id number] 00:00:00* Test Item Value Reference Range Interpretation Comme nts VITAMIN D, 25 OH (test code = 4958) 48 NG/ML Juan Richard AustinTHYROID II PROFILE (T3U, T4, T7, TSH)2019-11-27 00:00:00* Test Item Value Reference Range Interpretation Comme nts T-UPTAKE (test code = 2817) 36.1 % THYROX. BIND. CAPAC. (test c ode = 00502) 0.9 T4 (THYROXINE) (test code = 2819) 11.7 UG/DL CORRECTED T4 (FTI) (test cod e = 2820) 13.0 UG/DL TSH, THIRD GENERATION (test code = 2821) 0.075 UIU/ML Juan F AustinVITAMIN D, 25 [id number] 00:00:00* Test Item Value Reference Range Interpretation Comme nts VITAMIN D, 25 OH (test code = 4958) 48 NG/ML Juan SantanaTHYROID II PROFILE (T3U, T4, T7, TSH)2019-11-27 00:00:00* Test Item Value Reference Range Interpretation Comme nts T-UPTAKE (test code = 2817) 36.1 % THYROX. BIND. CAPAC. (test c ode = 41229) 0.9 T4 (THYROXINE) (test code = 2819) 11.7 UG/DL CORRECTED T4 (FTI) (test cod e = 2820) 13.0 UG/DL TSH, THIRD GENERATION (test code = 2821) 0.075 UIU/ML Juan SantanaVITAMIN D, 25 [id number] 00:00:00* Test Item Value Reference Range Interpretation Comme nts VITAMIN D, 25 OH (test code = 4958) 48 NG/ML Juan SantanaTHYROID II PROFILE (T3U, T4, T7, TSH)2019-11-27 00:00:00* Test Item Value Reference Range Interpretation Comme nts T-UPTAKE (test code = 2817) 36.1 % THYROX. BIND. CAPAC. (test c ode = 12180) 0.9 T4 (THYROXINE) (test code = 2819) 11.7 UG/DL CORRECTED T4 (FTI) (test cod e = 2820) 13.0 UG/DL TSH, THIRD GENERATION (test code = 2821) 0.075 UIU/ML Juan SantanaVITAMIN D, 25 [id number] 00:00:00* Test Item Value Reference Range Interpretation Comme nts VITAMIN D, 25 OH (test code = 4958) 48 NG/ML THYROID II PROFILE (T3U, T4, T7, TSH)2019-11-27 00:00:00* Test Item Value Reference Range Interpretation Comme nts T-UPTAKE (test code = 2817) 36.1 % THYROX. BIND. CAPAC. (test c ode = 00280) 0.9 T4 (THYROXINE) (test code = 2819) 11.7 UG/DL CORRECTED T4 (FTI) (test cod e = 2820) 13.0 UG/DL TSH, THIRD GENERATION (test code = 2821) 0.075 UIU/ML VITAMIN D, 25 [id number] 00:00:00* Test Item Value Reference Range Interpretation Comme nts VITAMIN D, 25 OH (test code = 4958) 48 NG/ML THYROID II PROFILE (T3U, T4, T7, TSH)2019-11-27 00:00:00* Test Item Value Reference Range Interpretation Comme nts T-UPTAKE (test code = 2817) 36.1 % THYROX. BIND. CAPAC. (test c ode = 05950) 0.9 T4 (THYROXINE) (test code = 2819) 11.7 UG/DL CORRECTED T4 (FTI) (test cod e = 2820) 13.0 UG/DL TSH, THIRD GENERATION (test code = 2821) 0.075 UIU/ML THYROID II PROFILE (T3U, T4, T7, TSH)2019-10-29 00:00:00* Test Item Value Reference Range Interpretation Comme nts T-UPTAKE (test code = 281) 41.9 % THYROX. BIND. CAPAC. (test c ode = 35134) 0.7 T4 (THYROXINE) (test code = 2819) 13.5 UG/DL CORRECTED T4 (FTI) (test cod e = 2820) 19.3 UG/DL TSH, THIRD GENERATION (test code = 2821) 0.467 UIU/ML Juan F AustinTHYROID II PROFILE (T3U, T4, T7, TSH)2019-10-29 00:00:00* Test Item Value Reference Range Interpretation Comme nts T-UPTAKE (test code = 281) 41.9 % THYROX. BIND. CAPAC. (test c ode = 80931) 0.7 T4 (THYROXINE) (test code = 2819) 13.5 UG/DL CORRECTED T4 (FTI) (test cod e = 2820) 19.3 UG/DL TSH, THIRD GENERATION (test code = 2821) 0.467 UIU/ML Juan F AustinTHYROID II PROFILE (T3U, T4, T7, TSH)2019-10-29 00:00:00* Test Item Value Reference Range Interpretation Comme nts T-UPTAKE (test code = 281) 41.9 % THYROX. BIND. CAPAC. (test c ode = 14567) 0.7 T4 (THYROXINE) (test code = 2819) 13.5 UG/DL CORRECTED T4 (FTI) (test cod e = 2820) 19.3 UG/DL TSH, THIRD GENERATION (test code = 2821) 0.467 UIU/ML Juan F AustinTHYROID II PROFILE (T3U, T4, T7, TSH)2019-10-29 00:00:00* Test Item Value Reference Range Interpretation Comme nts T-UPTAKE (test code = 2817) 41.9 % THYROX. BIND. CAPAC. (test c ode = 78276) 0.7 T4 (THYROXINE) (test code = 2819) 13.5 UG/DL CORRECTED T4 (FTI) (test cod e = 2820) 19.3 UG/DL TSH, THIRD GENERATION (test code = 2821) 0.467 UIU/ML Juan F AustinTHYROID II PROFILE (T3U, T4, T7, TSH)2019-10-29 00:00:00* Test Item Value Reference Range Interpretation Comme nts T-UPTAKE (test code = 281) 41.9 % THYROX. BIND. CAPAC. (test c ode = 69058) 0.7 T4 (THYROXINE) (test code = 2819) 13.5 UG/DL CORRECTED T4 (FTI) (test cod e = 2820) 19.3 UG/DL TSH, THIRD GENERATION (test code = 2821) 0.467 UIU/ML Juan F AustinTHYROID II PROFILE (T3U, T4, T7, TSH)2019-10-29 00:00:00* Test Item Value Reference Range Interpretation Comme nts T-UPTAKE (test code = 2817) 41.9 % THYROX. BIND. CAPAC. (test c ode = 45430) 0.7 T4 (THYROXINE) (test code = 2819) 13.5 UG/DL CORRECTED T4 (FTI) (test cod e = 2820) 19.3 UG/DL TSH, THIRD GENERATION (test code = 2821) 0.467 UIU/ML Juan F AustinTHYROID II PROFILE (T3U, T4, T7, TSH)2019-10-29 00:00:00* Test Item Value Reference Range Interpretation Comme nts T-UPTAKE (test code = 281) 41.9 % THYROX. BIND. CAPAC. (test c ode = 03179) 0.7 T4 (THYROXINE) (test code = 2819) 13.5 UG/DL CORRECTED T4 (FTI) (test cod e = 2820) 19.3 UG/DL TSH, THIRD GENERATION (test code = 2821) 0.467 UIU/ML Juan F AustinTHYROID II PROFILE (T3U, T4, T7, TSH)2019-10-29 00:00:00* Test Item Value Reference Range Interpretation Comme nts T-UPTAKE (test code = 2817) 41.9 % THYROX. BIND. CAPAC. (test c ode = 75257) 0.7 T4 (THYROXINE) (test code = 2819) 13.5 UG/DL CORRECTED T4 (FTI) (test cod e = 2820) 19.3 UG/DL TSH, THIRD GENERATION (test code = 2821) 0.467 UIU/ML [facility] AustinTHYROID II PROFILE (T3U, T4, T7, TSH)2019-10-29 00:00:00* Test Item Value Reference Range Interpretation Comme nts T-UPTAKE (test code = 2817) 41.9 % THYROX. BIND. CAPAC. (test c ode = 48640) 0.7 T4 (THYROXINE) (test code = 2819) 13.5 UG/DL CORRECTED T4 (FTI) (test cod e = 2820) 19.3 UG/DL TSH, THIRD GENERATION (test code = 2821) 0.467 UIU/ML [facility] AustinTHYROID II PROFILE (T3U, T4, T7, TSH)2019-10-29 00:00:00* Test Item Value Reference Range Interpretation Comme nts T-UPTAKE (test code = 2817) 41.9 % THYROX. BIND. CAPAC. (test c ode = 14659) 0.7 T4 (THYROXINE) (test code = 2819) 13.5 UG/DL CORRECTED T4 (FTI) (test cod e = 2820) 19.3 UG/DL TSH, THIRD GENERATION (test code = 2821) 0.467 UIU/ML Juan F AustinTHYROID II PROFILE (T3U, T4, T7, TSH)2019-10-29 00:00:00* Test Item Value Reference Range Interpretation Comme nts T-UPTAKE (test code = 2817) 41.9 % THYROX. BIND. CAPAC. (test c ode = 99536) 0.7 T4 (THYROXINE) (test code = 2819) 13.5 UG/DL CORRECTED T4 (FTI) (test cod e = 2820) 19.3 UG/DL TSH, THIRD GENERATION (test code = 2821) 0.467 UIU/ML Juan F AustinTHYROID II PROFILE (T3U, T4, T7, TSH)2019-10-29 00:00:00* Test Item Value Reference Range Interpretation Comme nts T-UPTAKE (test code = 2817) 41.9 % THYROX. BIND. CAPAC. (test c ode = 02905) 0.7 T4 (THYROXINE) (test code = 2819) 13.5 UG/DL CORRECTED T4 (FTI) (test cod e = 2820) 19.3 UG/DL TSH, THIRD GENERATION (test code = 2821) 0.467 UIU/ML [facility] AustinTHYROID II PROFILE (T3U, T4, T7, TSH)2019-10-29 00:00:00* Test Item Value Reference Range Interpretation Comme nts T-UPTAKE (test code = 2817) 41.9 % THYROX. BIND. CAPAC. (test c ode = 54849) 0.7 T4 (THYROXINE) (test code = 2819) 13.5 UG/DL CORRECTED T4 (FTI) (test cod e = 2820) 19.3 UG/DL TSH, THIRD GENERATION (test code = 2821) 0.467 UIU/ML Juan F AustinTHYROID II PROFILE (T3U, T4, T7, TSH)2019-10-29 00:00:00* Test Item Value Reference Range Interpretation Comme nts T-UPTAKE (test code = 2817) 41.9 % THYROX. BIND. CAPAC. (test c ode = 42058) 0.7 T4 (THYROXINE) (test code = 2819) 13.5 UG/DL CORRECTED T4 (FTI) (test cod e = 2820) 19.3 UG/DL TSH, THIRD GENERATION (test code = 2821) 0.467 UIU/ML Juan F AustinTHYROID II PROFILE (T3U, T4, T7, TSH)2019-10-29 00:00:00* Test Item Value Reference Range Interpretation Comme nts T-UPTAKE (test code = 2817) 41.9 % THYROX. BIND. CAPAC. (test c ode = 64124) 0.7 T4 (THYROXINE) (test code = 2819) 13.5 UG/DL CORRECTED T4 (FTI) (test cod e = 2820) 19.3 UG/DL TSH, THIRD GENERATION (test code = 2821) 0.467 UIU/ML Juan Hilary AustinTHYROID II PROFILE (T3U, T4, T7, TSH)2019-10-29 00:00:00* Test Item Value Reference Range Interpretation Comme nts T-UPTAKE (test code = 2817) 41.9 % THYROX. BIND. CAPAC. (test c ode = 39773) 0.7 T4 (THYROXINE) (test code = 2819) 13.5 UG/DL CORRECTED T4 (FTI) (test cod e = 2820) 19.3 UG/DL TSH, THIRD GENERATION (test code = 2821) 0.467 [facility] ([facility], T4, T7, TSH)2019-10-29 00:00:00* Test Item Value Reference Range Interpretation Comme nts T-UPTAKE (test code = 2817) 41.9 % THYROX. BIND. CAPAC. (test c ode = 97042) 0.7 T4 (THYROXINE) (test code = 2819) 13.5 UG/DL CORRECTED T4 (FTI) (test cod e = 2820) 19.3 UG/DL TSH, THIRD GENERATION (test code = 2821) 0.467 UIU/ML THYROID II PROFILE (T3U, T4, T7, TSH)2019-10-29 00:00:00* Test Item Value Reference Range Interpretation Comme nts T-UPTAKE (test code = 2817) 41.9 % THYROX. BIND. CAPAC. (test c ode = 37241) 0.7 T4 (THYROXINE) (test code = 2819) 13.5 UG/DL CORRECTED T4 (FTI) (test cod e = 2820) 19.3 UG/DL TSH, THIRD GENERATION (test code = 2821) 0.467 UIU/ML COMPREHENSIVE METABOLIC [id number] 00:00:00* Test Item Value Reference Range Interpretation Comme nts GLUCOSE (test code = 2217) 93 MG/DL BUN (test code = 2208) 12 MG/DL CREATININE (test code = 2214) 1.12 MG/DL eGFR AMER. (test cod e = 43013) 73 ML/MIN/1.73 eGFR NON- AMER. (test code = 55406) 63 ML/MIN/1.73 CALC BUN/CREAT (test code = [...] = 2219) 14 U/L Juan SantanaCBC W/AUTO [id number] 00:00:00* Test Item Value Reference Range Interpretation [...] code = 1015) 228 K/UL Juan SantanaHEMOGLOBIN [id number] 00:00:00* Test Item Value Reference Range Interpretation Comme nts HEMOGLOBIN A1c (test code = 23023) 5.4 % Juan SantanaLIPID [id number] 00:00:00* Test Item Value Reference Range Interpretation Comme nts CHOLESTEROL (test code = 2210) 184 MG/DL TRIGLYCERIDES (test code = 2232) 95 MG/DL HDL CHOLESTEROL (test code = 2220) 51 MG/DL CALC LDL CHOL (test code = 2237) 114 MG/DL RISK RATIO LDL/HDL (test cod e = 2238) 2.24 RATIO Juan [id number] 00:00:00* Test Item Value Reference Range Interpretation Comme oneal TSH, THIRD GENERATION (test code = 2821) 2.720 UIU/ML Juan SantanaVITAMIN B 12 AND FOLIC [id number] 00:00:00* Test Item Value Reference Range Interpretation Comme oneal VITAMIN B-12 (test code = 2840) >2000 PG/ML FOLIC ACID (test code = 2695) 5.4 UG/L Juan SantanaVITAMIN D, 25 [id number] 00:00:00* Test Item Value Reference Range Interpretation Comme oneal VITAMIN D, 25 OH (test code = 4958) 24 NG/ML Juan SantanaCOMPREHENSIVE METABOLIC [id number] 00:00:00* Test Item Value Reference Range Interpretation Comme nts GLUCOSE (test code = 2217) 93 MG/DL BUN (test code = 2208) 12 MG/DL CREATININE (test code = 2214) 1.12 MG/DL eGFR AMER. (test cod e = 34958) 73 ML/MIN/1.73 eGFR NON- AMER. (test code = 46539) 63 ML/MIN/1.73 CALC BUN/CREAT (test code = [...] (test code = 2219) 14 U/L Juan SantanaCOMPREHENSIVE METABOLIC [id number] 00:00:00* Test Item Value Reference Range Interpretation Comme nts GLUCOSE (test code = 2217) 93 MG/DL BUN (test code = 2208) 12 MG/DL CREATININE (test code = 2214) 1.12 MG/DL eGFR AMER. (test cod e = 67140) 73 ML/MIN/1.73 eGFR NON- AMER. (test code = 36048) 63 ML/MIN/1.73 CALC BUN/CREAT (test code = [...] (test code = 2219) 14 U/L Juan Richard MaxCBC W/AUTO [id number] 00:00:00* Test Item Value Reference Range Interpretation [...] code = 1015) 228 K/UL Juan SantanaHEMOGLOBIN [id number] 00:00:00* Test Item Value Reference Range Interpretation Comme oneal HEMOGLOBIN A1c (test code = 85518) 5.4 % Juan SantanaCBC W/AUTO [id number] 00:00:00* Test Item Value Reference Range Interpretation [...] code = 1015) 228 K/UL Juan SantanaLIPID [id number] 00:00:00* Test Item Value Reference Range Interpretation Comme nts CHOLESTEROL (test code = 2210) 184 MG/DL TRIGLYCERIDES (test code = 2232) 95 MG/DL HDL CHOLESTEROL (test code = 2220) 51 MG/DL CALC LDL CHOL (test code = 2237) 114 MG/DL RISK RATIO LDL/HDL (test cod e = 2238) 2.24 RATIO Juan [id number] 00:00:00* Test Item Value Reference Range Interpretation Comme [facility] TSH, THIRD GENERATION (test code = 2821) 2.720 UIU/ML Juan SantanaVITAMIN B 12 AND FOLIC [id number] 00:00:00* Test Item Value Reference Range Interpretation Comme [facility] VITAMIN B-12 (test code = 2840) >2000 PG/ML FOLIC ACID (test code = 2695) 5.4 UG/L Juan SantanaVITAMIN D, 25 [id number] 00:00:00* Test Item Value Reference Range Interpretation Comme nts VITAMIN D, 25 OH (test code = 4958) 24 NG/ML Juan SantanaCOMPREHENSIVE METABOLIC [id number] 00:00:00* Test Item Value Reference Range Interpretation Comme nts GLUCOSE (test code = 2217) 93 MG/DL BUN (test code = 2208) 12 MG/DL CREATININE (test code = 2214) 1.12 MG/DL eGFR AMER. (test cod e = 92916) 73 ML/MIN/1.73 eGFR NON- AMER. (test code = 78763) 63 ML/MIN/1.73 CALC BUN/CREAT (test code = [...] = 2219) 14 U/L Juan SantanaCBC W/AUTO [id number] 00:00:00* Test Item Value Reference Range Interpretation [...] code = 1015) 228 K/UL Juan SantanaHEMOGLOBIN [id number] 00:00:00* Test Item Value Reference Range Interpretation Comme [facility] HEMOGLOBIN A1c (test code = 83970) 5.4 % Juan SantanaLIPID [id number] 00:00:00* Test Item Value Reference Range Interpretation Comme nts CHOLESTEROL (test code = 2210) 184 MG/DL TRIGLYCERIDES (test code = 2232) 95 MG/DL HDL CHOLESTEROL (test code = 2220) 51 MG/DL CALC LDL CHOL (test code = 2237) 114 MG/DL RISK RATIO LDL/HDL (test cod e = 2238) 2.24 RATIO Juan [id number] 00:00:00* Test Item Value Reference Range Interpretation Comme [facility] TSH, THIRD GENERATION (test code = 2821) 2.720 UIU/ML Juan SantanaVITAMIN B 12 AND FOLIC [id number] 00:00:00* Test Item Value Reference Range Interpretation Comme [facility] VITAMIN B-12 (test code = 2840) >2000 PG/ML FOLIC ACID (test code = 2695) 5.4 UG/L Juan SantanaVITAMIN D, 25 [id number] 00:00:00* Test Item Value Reference Range Interpretation Comme [facility] VITAMIN D, 25 OH (test code = 4958) 24 NG/ML Juan SantanaCOMPREHENSIVE METABOLIC [id number] 00:00:00* Test Item Value Reference Range Interpretation Comme nts GLUCOSE (test code = 2217) 93 MG/DL BUN (test code = 2208) 12 MG/DL CREATININE (test code = 2214) 1.12 MG/DL eGFR AMER. (test cod e = 62750) 73 ML/MIN/1.73 eGFR NON- AMER. (test code = 34471) 63 ML/MIN/1.73 CALC BUN/CREAT (test code = [...] = 2219) 14 U/L Juan SantanaCBC W/AUTO [id number] 00:00:00* Test Item Value Reference Range Interpretation [...] code = 1015) 228 K/UL Juan SantanaHEMOGLOBIN [id number] 00:00:00* Test Item Value Reference Range Interpretation Comme [facility] HEMOGLOBIN A1c (test code = 07682) 5.4 % Juan Richard AustinHEMOGLOBIN [id number] 00:00:00* Test Item Value Reference Range Interpretation Comme [facility] HEMOGLOBIN A1c (test code = 56000) 5.4 % Juan Richard AustinLIPID [id number] 00:00:00* Test Item Value Reference Range Interpretation Comme nts CHOLESTEROL (test code = 2210) 184 MG/DL TRIGLYCERIDES (test code = 2232) 95 MG/DL HDL CHOLESTEROL (test code = 2220) 51 MG/DL CALC LDL CHOL (test code = 2237) 114 MG/DL RISK RATIO LDL/HDL (test cod e = 2238) 2.24 RATIO Juan SantanaLIPID [id number] 00:00:00* Test Item Value Reference Range Interpretation Comme nts CHOLESTEROL (test code = 2210) 184 MG/DL TRIGLYCERIDES (test code = 2232) 95 MG/DL HDL CHOLESTEROL (test code = 2220) 51 MG/DL CALC LDL CHOL (test code = 2237) 114 MG/DL RISK RATIO LDL/HDL (test cod e = 2238) 2.24 RATIO Juan [id number] 00:00:00* Test Item Value Reference Range Interpretation Comme [facility] TSH, THIRD GENERATION (test code = 2821) 2.720 UIU/ML Juan SantanaVITAMIN B 12 AND FOLIC [id number] 00:00:00* Test Item Value Reference Range Interpretation Comme [facility] VITAMIN B-12 (test code = 2840) >2000 PG/ML FOLIC ACID (test code = 2695) 5.4 UG/L Juan SantanaVITAMIN D, 25 [id number] 00:00:00* Test Item Value Reference Range Interpretation Comme [facility] VITAMIN D, 25 OH (test code = 4958) 24 NG/ML Juan SantanaCOMPREHENSIVE METABOLIC [id number] 00:00:00* Test Item Value Reference Range Interpretation Comme nts GLUCOSE (test code = 2217) 93 MG/DL BUN (test code = 2208) 12 MG/DL CREATININE (test code = 2214) 1.12 MG/DL eGFR AMER. (test cod e = 52306) 73 ML/MIN/1.73 eGFR NON- AMER. (test code = 64544) 63 ML/MIN/1.73 CALC BUN/CREAT (test code = [...] = 2219) 14 U/L Juan SantanaCBC W/AUTO [id number] 00:00:00* Test Item Value Reference Range Interpretation [...] code = 1015) 228 K/UL Juan SantanaHEMOGLOBIN [id number] 00:00:00* Test Item Value Reference Range Interpretation Comme [facility] HEMOGLOBIN A1c (test code = 08971) 5.4 % Juan [id number] 00:00:00* Test Item Value Reference Range Interpretation Comme nts TSH, THIRD GENERATION (test code = 2821) 2.720 UIU/ML Juan SantanaLIPID [id number] 00:00:00* Test Item Value Reference Range Interpretation Comme nts CHOLESTEROL (test code = 2210) 184 MG/DL TRIGLYCERIDES (test code = 2232) 95 MG/DL HDL CHOLESTEROL (test code = 2220) 51 MG/DL CALC LDL CHOL (test code = 2237) 114 MG/DL RISK RATIO LDL/HDL (test cod e = 2238) 2.24 RATIO Juan [id number] 00:00:00* Test Item Value Reference Range Interpretation Comme nts TSH, THIRD GENERATION (test code = 2821) 2.720 UIU/ML Juan SantanaVITAMIN B 12 AND FOLIC [id number] 00:00:00* Test Item Value Reference Range Interpretation Comme nts VITAMIN B-12 (test code = 2840) >2000 PG/ML FOLIC ACID (test code = 2695) 5.4 UG/L Juan SantanaVITAMIN D, 25 [id number] 00:00:00* Test Item Value Reference Range Interpretation Comme nts VITAMIN D, 25 OH (test code = 4958) 24 NG/ML Juan SantanaVITAMIN B 12 AND FOLIC [id number] 00:00:00* Test Item Value Reference Range Interpretation Comme [facility] VITAMIN B-12 (test code = 2840) >2000 PG/ML FOLIC ACID (test code = 2695) 5.4 UG/L Juan SantanaCOMPREHENSIVE METABOLIC [id number] 00:00:00* Test Item Value Reference Range Interpretation Comme nts GLUCOSE (test code = 2217) 93 MG/DL BUN (test code = 2208) 12 MG/DL CREATININE (test code = 2214) 1.12 MG/DL eGFR AMER. (test cod e = 39925) 73 ML/MIN/1.73 eGFR NON- AMER. (test code = 22643) 63 ML/MIN/1.73 CALC BUN/CREAT (test code = [...] (test code = 2219) 14 U/L Juan SantanaVITAMIN D, 25 [id number] 00:00:00* Test Item Value Reference Range Interpretation Comme [facility] VITAMIN D, 25 OH (test code = 4958) 24 NG/ML Juan SantanaCBC W/AUTO [id number] 00:00:00* Test Item Value Reference Range Interpretation [...] code = 1015) 228 K/UL Juan SantanaHEMOGLOBIN [id number] 00:00:00* Test Item Value Reference Range Interpretation Comme [facility] HEMOGLOBIN A1c (test code = 17654) 5.4 % Juan SantanaLIPID [id number] 00:00:00* Test Item Value Reference Range Interpretation Comme nts CHOLESTEROL (test code = 2210) 184 MG/DL TRIGLYCERIDES (test code = 2232) 95 MG/DL HDL CHOLESTEROL (test code = 2220) 51 MG/DL CALC LDL CHOL (test code = 2237) 114 MG/DL RISK RATIO LDL/HDL (test cod e = 2238) 2.24 RATIO Juan [id number] 00:00:00* Test Item Value Reference Range Interpretation Comme [facility] TSH, THIRD GENERATION (test code = 2821) 2.720 UIU/ML Juan SantanaVITAMIN B 12 AND FOLIC [id number] 00:00:00* Test Item Value Reference Range Interpretation Comme [facility] VITAMIN B-12 (test code = 2840) >2000 PG/ML FOLIC ACID (test code = 2695) 5.4 UG/L Juan SantanaVITAMIN D, 25 [id number] 00:00:00* Test Item Value Reference Range Interpretation Comme nts VITAMIN D, 25 OH (test code = 4958) 24 NG/ML Juan SantanaCOMPREHENSIVE METABOLIC [id number] 00:00:00* Test Item Value Reference Range Interpretation Comme nts GLUCOSE (test code = 2217) 93 MG/DL BUN (test code = 2208) 12 MG/DL CREATININE (test code = 2214) 1.12 MG/DL eGFR AMER. (test cod e = 77356) 73 ML/MIN/1.73 eGFR NON- AMER. (test code = 97695) 63 ML/MIN/1.73 CALC BUN/CREAT (test code = [...] = 2219) 14 U/L Juan SantanaCBC W/AUTO [id number] 00:00:00* Test Item Value Reference Range Interpretation [...] code = 1015) 228 K/UL Juan SantanaHEMOGLOBIN [id number] 00:00:00* Test Item Value Reference Range Interpretation Comme [facility] HEMOGLOBIN A1c (test code = 90034) 5.4 % Juan SantanaLIPID [id number] 00:00:00* Test Item Value Reference Range Interpretation Comme nts CHOLESTEROL (test code = 2210) 184 MG/DL TRIGLYCERIDES (test code = 2232) 95 MG/DL HDL CHOLESTEROL (test code = 2220) 51 MG/DL CALC LDL CHOL (test code = 2237) 114 MG/DL RISK RATIO LDL/HDL (test cod e = 2238) 2.24 RATIO Juan [id number] 00:00:00* Test Item Value Reference Range Interpretation Comme [facility] TSH, THIRD GENERATION (test code = 2821) 2.720 UIU/ML Juan SantanaVITAMIN B 12 AND FOLIC [id number] 00:00:00* Test Item Value Reference Range Interpretation Comme [facility] VITAMIN B-12 (test code = 2840) >2000 PG/ML FOLIC ACID (test code = 2695) 5.4 UG/L Juan SantanaVITAMIN D, 25 [id number] 00:00:00* Test Item Value Reference Range Interpretation Comme [facility] VITAMIN D, 25 OH (test code = 4958) 24 NG/ML Juan SantanaCOMPREHENSIVE METABOLIC [id number] 00:00:00* Test Item Value Reference Range Interpretation Comme nts GLUCOSE (test code = 2217) 93 MG/DL BUN (test code = 2208) 12 MG/DL CREATININE (test code = 2214) 1.12 MG/DL eGFR AMER. (test cod e = 12164) 73 ML/MIN/1.73 eGFR NON- AMER. (test code = 73329) 63 ML/MIN/1.73 CALC BUN/CREAT (test code = [...] = 2219) 14 U/L Juan SantanaCBC W/AUTO [id number] 00:00:00* Test Item Value Reference Range Interpretation [...] code = 1015) 228 K/UL Juan SantanaHEMOGLOBIN [id number] 00:00:00* Test Item Value Reference Range Interpretation Comme [facility] HEMOGLOBIN A1c (test code = 94764) 5.4 % Juan SantanaLIPID [id number] 00:00:00* Test Item Value Reference Range Interpretation Comme nts CHOLESTEROL (test code = 2210) 184 MG/DL TRIGLYCERIDES (test code = 2232) 95 MG/DL HDL CHOLESTEROL (test code = 2220) 51 MG/DL CALC LDL CHOL (test code = 2237) 114 MG/DL RISK RATIO LDL/HDL (test cod e = 2238) 2.24 RATIO Juan [id number] 00:00:00* Test Item Value Reference Range Interpretation Comme [facility] TSH, THIRD GENERATION (test code = 2821) 2.720 UIU/ML Juan SantanaVITAMIN B 12 AND FOLIC [id number] 00:00:00* Test Item Value Reference Range Interpretation Comme [facility] VITAMIN B-12 (test code = 2840) >2000 PG/ML FOLIC ACID (test code = 2695) 5.4 UG/L Juan SantanaVITAMIN D, 25 [id number] 00:00:00* Test Item Value Reference Range Interpretation Comme [facility] VITAMIN D, 25 OH (test code = 4958) 24 NG/ML Jaun SantanaCOMPREHENSIVE METABOLIC [id number] 00:00:00* Test Item Value Reference Range Interpretation Comme nts GLUCOSE (test code = 2217) 93 MG/DL BUN (test code = 2208) 12 MG/DL CREATININE (test code = 2214) 1.12 MG/DL eGFR AMER. (test cod e = 28374) 73 ML/MIN/1.73 eGFR NON- AMER. (test code = 81655) 63 ML/MIN/1.73 CALC BUN/CREAT (test code = [...] = 2219) 14 U/L Juan SantanaCBC W/AUTO [id number] 00:00:00* Test Item Value Reference Range Interpretation [...] code = 1015) 228 K/UL Juan SantanaHEMOGLOBIN [id number] 00:00:00* Test Item Value Reference Range Interpretation Comme [facility] HEMOGLOBIN A1c (test code = 03093) 5.4 % Juan SantanaLIPID [id number] 00:00:00* Test Item Value Reference Range Interpretation Comme nts CHOLESTEROL (test code = 2210) 184 MG/DL TRIGLYCERIDES (test code = 2232) 95 MG/DL HDL CHOLESTEROL (test code = 2220) 51 MG/DL CALC LDL CHOL (test code = 2237) 114 MG/DL RISK RATIO LDL/HDL (test cod e = 2238) 2.24 RATIO Juan [id number] 00:00:00* Test Item Value Reference Range Interpretation Comme [facility] TSH, THIRD GENERATION (test code = 2821) 2.720 UIU/ML Juan SantanaVITAMIN B 12 AND FOLIC [id number] 00:00:00* Test Item Value Reference Range Interpretation Comme [facility] VITAMIN B-12 (test code = 2840) >2000 PG/ML FOLIC ACID (test code = 2695) 5.4 UG/L Juan SantanaVITAMIN D, 25 [id number] 00:00:00* Test Item Value Reference Range Interpretation Comme [facility] VITAMIN D, 25 OH (test code = 4958) 24 NG/ML Juan SantanaCOMPREHENSIVE METABOLIC [id number] 00:00:00* Test Item Value Reference Range Interpretation Comme nts GLUCOSE (test code = 2217) 93 MG/DL BUN (test code = 2208) 12 MG/DL CREATININE (test code = 2214) 1.12 MG/DL eGFR AMER. (test cod e = 30314) 73 ML/MIN/1.73 eGFR NON- AMER. (test code = 33899) 63 ML/MIN/1.73 CALC BUN/CREAT (test code = [...] = 2219) 14 U/L Juan SantanaCBC W/AUTO [id number] 00:00:00* Test Item Value Reference Range Interpretation [...] code = 1015) 228 K/UL Juan SantanaHEMOGLOBIN [id number] 00:00:00* Test Item Value Reference Range Interpretation Comme [facility] HEMOGLOBIN A1c (test code = 99416) 5.4 % Juan SantanaLIPID [id number] 00:00:00* Test Item Value Reference Range Interpretation Comme nts CHOLESTEROL (test code = 2210) 184 MG/DL TRIGLYCERIDES (test code = 2232) 95 MG/DL HDL CHOLESTEROL (test code = 2220) 51 MG/DL CALC LDL CHOL (test code = 2237) 114 MG/DL RISK RATIO LDL/HDL (test cod e = 2238) 2.24 RATIO Juan [id number] 00:00:00* Test Item Value Reference Range Interpretation Comme [facility] TSH, THIRD GENERATION (test code = 2821) 2.720 UIU/ML Juan SantanaVITAMIN B 12 AND FOLIC [id number] 00:00:00* Test Item Value Reference Range Interpretation Comme [facility] VITAMIN B-12 (test code = 2840) >2000 PG/ML FOLIC ACID (test code = 2695) 5.4 UG/L Juan SantanaVITAMIN D, 25 [id number] 00:00:00* Test Item Value Reference Range Interpretation Comme [facility] VITAMIN D, 25 OH (test code = 4958) 24 NG/ML Juan SantanaCOMPREHENSIVE METABOLIC [id number] 00:00:00* Test Item Value Reference Range Interpretation Comme nts GLUCOSE (test code = 2217) 93 MG/DL BUN (test code = 2208) 12 MG/DL CREATININE (test code = 2214) 1.12 MG/DL eGFR AMER. (test cod e = 65735) 73 ML/MIN/1.73 eGFR NON- AMER. (test code = 66809) 63 ML/MIN/1.73 CALC BUN/CREAT (test code = [...] = 2219) 14 U/L Juan SantanaCBC W/AUTO [id number] 00:00:00* Test Item Value Reference Range Interpretation [...] code = 1015) 228 K/UL Juan SantanaHEMOGLOBIN [id number] 00:00:00* Test Item Value Reference Range Interpretation Comme nts HEMOGLOBIN A1c (test code = 68259) 5.4 % Juan SantanaLIPID [id number] 00:00:00* Test Item Value Reference Range Interpretation Comme nts CHOLESTEROL (test code = 2210) 184 MG/DL TRIGLYCERIDES (test code = 2232) 95 MG/DL HDL CHOLESTEROL (test code = 2220) 51 MG/DL CALC LDL CHOL (test code = 2237) 114 MG/DL RISK RATIO LDL/HDL (test cod e = 2238) 2.24 RATIO Juan [id number] 00:00:00* Test Item Value Reference Range Interpretation Comme nts TSH, THIRD GENERATION (test code = 2821) 2.720 UIU/ML Juan SantanaVITAMIN B 12 AND FOLIC [id number] 00:00:00* Test Item Value Reference Range Interpretation Comme nts VITAMIN B-12 (test code = 2840) >2000 PG/ML FOLIC ACID (test code = 2695) 5.4 UG/L Juan SantanaVITAMIN D, 25 [id number] 00:00:00* Test Item Value Reference Range Interpretation Comme [facility] VITAMIN D, 25 OH (test code = 4958) 24 NG/ML Juan SantanaCOMPREHENSIVE METABOLIC [id number] 00:00:00* Test Item Value Reference Range Interpretation Comme nts GLUCOSE (test code = 2217) 93 MG/DL BUN (test code = 2208) 12 MG/DL CREATININE (test code = 2214) 1.12 MG/DL eGFR AMER. (test cod e = 79438) 73 ML/MIN/1.73 eGFR NON- AMER. (test code = 54515) 63 ML/MIN/1.73 CALC BUN/CREAT (test code = [...] = 2219) 14 U/L Juan SantanaCBC W/AUTO [id number] 00:00:00* Test Item Value Reference Range Interpretation Comme [facility] WBC (test code = 1001) 5.5 K/UL [...] code = 1015) 228 K/UL Juan SantanaHEMOGLOBIN [id number] 00:00:00* Test Item Value Reference Range Interpretation Comme [facility] HEMOGLOBIN A1c (test code = 56741) 5.4 % Juan SantanaLIPID [id number] 00:00:00* Test Item Value Reference Range Interpretation Comme nts CHOLESTEROL (test code = 2210) 184 MG/DL TRIGLYCERIDES (test code = 2232) 95 MG/DL HDL CHOLESTEROL (test code = 2220) 51 MG/DL CALC LDL CHOL (test code = 2237) 114 MG/DL RISK RATIO LDL/HDL (test cod e = 2238) 2.24 RATIO Juan [id number] 00:00:00* Test Item Value Reference Range Interpretation Comme [facility] TSH, THIRD GENERATION (test code = 2821) 2.720 UIU/ML Juan SantanaVITAMIN B 12 AND FOLIC [id number] 00:00:00* Test Item Value Reference Range Interpretation Comme [facility] VITAMIN B-12 (test code = 2840) >2000 PG/ML FOLIC ACID (test code = 2695) 5.4 UG/L Juan SantanaVITAMIN D, 25 [id number] 00:00:00* Test Item Value Reference Range Interpretation Comme [facility] VITAMIN D, 25 OH (test code = 4958) 24 NG/ML Juan SantanaCOMPREHENSIVE METABOLIC [id number] 00:00:00* Test Item Value Reference Range Interpretation Comme nts GLUCOSE (test code = 2217) 93 MG/DL BUN (test code = 2208) 12 MG/DL CREATININE (test code = 2214) 1.12 MG/DL eGFR AMER. (test cod e = 15430) 73 ML/MIN/1.73 eGFR NON- AMER. (test code = 98055) 63 ML/MIN/1.73 CALC BUN/CREAT (test code = [...] code = 2219) 14 U/L Juan Hilary MaxCBC W/AUTO [id number] 00:00:00* Test Item Value Reference Range Interpretation [...] (test code = 1015) 228 K/UL Juan Richard MaxHEMOGLOBIN [id number] 00:00:00* Test Item Value Reference Range Interpretation Comme [facility] HEMOGLOBIN A1c (test code = 55362) 5.4 % Juan Richard MaxLIPID [id number] 00:00:00* Test Item Value Reference Range Interpretation Comme nts CHOLESTEROL (test code = 2210) 184 MG/DL TRIGLYCERIDES (test code = 2232) 95 MG/DL HDL CHOLESTEROL (test code = 2220) 51 MG/DL CALC LDL CHOL (test code = 2237) 114 MG/DL RISK RATIO LDL/HDL (test cod e = 2238) 2.24 RATIO Juan [id number] 00:00:00* Test Item Value Reference Range Interpretation Comme [facility] TSH, THIRD GENERATION (test code = 2821) 2.720 UIU/ML Juan SantanaVITAMIN B 12 AND FOLIC [id number] 00:00:00* Test Item Value Reference Range Interpretation Comme [facility] VITAMIN B-12 (test code = 2840) >2000 PG/ML FOLIC ACID (test code = 2695) 5.4 UG/L Juan SantanaVITAMIN D, 25 [id number] 00:00:00* Test Item Value Reference Range Interpretation Comme [facility] VITAMIN D, 25 OH (test code = 4958) 24 NG/ML Juan SantanaCOMPREHENSIVE METABOLIC [id number] 00:00:00* Test Item Value Reference Range Interpretation Comme nts GLUCOSE (test code = 7) 93 MG/DL BUN (test code = 8) 12 MG/DL CREATININE (test code = 2214) 1.12 MG/DL eGFR AMER. (test cod e = 73780) 73 ML/MIN/1.73 eGFR NON- AMER. (test code = 15021) 63 ML/MIN/1.73 CALC BUN/CREAT (test code = [...] = 2219) 14 U/L Juan SantanaCBC W/AUTO [id number] 00:00:00* Test Item Value Reference Range Interpretation [...] code = 1015) 228 K/UL Juan SantanaHEMOGLOBIN [id number] 00:00:00* Test Item Value Reference Range Interpretation Comme [facility] HEMOGLOBIN A1c (test code = 12199) 5.4 % Juan SantanaLIPID [id number] 00:00:00* Test Item Value Reference Range Interpretation Comme nts CHOLESTEROL (test code = 2210) 184 MG/DL TRIGLYCERIDES (test code = 2232) 95 MG/DL HDL CHOLESTEROL (test code = 2220) 51 MG/DL CALC LDL CHOL (test code = 2237) 114 MG/DL RISK RATIO LDL/HDL (test cod e = 2238) 2.24 RATIO Juan [id number] 00:00:00* Test Item Value Reference Range Interpretation Comme [facility] TSH, THIRD GENERATION (test code = 2821) 2.720 UIU/ML Juan SantanaVITAMIN B 12 AND FOLIC [id number] 00:00:00* Test Item Value Reference Range Interpretation Comme [facility] VITAMIN B-12 (test code = 2840) >2000 PG/ML FOLIC ACID (test code = 2695) 5.4 UG/L Juan SantanaVITAMIN D, 25 [id number] 00:00:00* Test Item Value Reference Range Interpretation Comme [facility] VITAMIN D, 25 OH (test code = 4958) 24 NG/ML Juan SantanaCOMPREHENSIVE METABOLIC [id number] 00:00:00* Test Item Value Reference Range Interpretation Comme nts GLUCOSE (test code = 2217) 93 MG/DL BUN (test code = 2208) 12 MG/DL CREATININE (test code = 2214) 1.12 MG/DL eGFR AMER. (test cod e = 41053) 73 ML/MIN/1.73 eGFR NON- AMER. (test code = 27974) 63 ML/MIN/1.73 CALC BUN/CREAT (test code = [...] (test code = 2219) 14 U/L [facility] [id number] 00:00:00* Test Item Value Reference Range Interpretation [...] (test code = 1015) 228 K/UL Juan F AustinHEMOGLOBIN [id number] 00:00:00* Test Item Value Reference Range Interpretation Comme [facility] HEMOGLOBIN A1c (test code = 64472) 5.4 % Juan SantanaLIPID [id number] 00:00:00* Test Item Value Reference Range Interpretation Comme nts CHOLESTEROL (test code = 2210) 184 MG/DL TRIGLYCERIDES (test code = 2232) 95 MG/DL HDL CHOLESTEROL (test code = 2220) 51 MG/DL CALC LDL CHOL (test code = 2237) 114 MG/DL RISK RATIO LDL/HDL (test cod e = 2238) 2.24 RATIO Juan [id number] 00:00:00* Test Item Value Reference Range Interpretation Comme one[facility] TSH, THIRD GENERATION (test code = 2821) 2.720 UIU/ML Juan SantanaVITAMIN B 12 AND FOLIC [id number] 00:00:00* Test Item Value Reference Range Interpretation Comme [facility] VITAMIN B-12 (test code = 2840) >2000 PG/ML FOLIC ACID (test code = 2695) 5.4 UG/L Juan SantanaVITAMIN D, 25 [id number] 00:00:00* Test Item Value Reference Range Interpretation Comme one[facility] VITAMIN D, 25 OH (test code = 4958) 24 NG/ML Juan SantanaCBC W/AUTO [id number] 00:00:00* Test Item Value Reference Range Interpretation [...] (test code = 1015) 228 K/UL HEMOGLOBIN [id number] 00:00:00* Test Item Value Reference Range Interpretation Comme nts HEMOGLOBIN A1c (test code = 27178) 5.4 % LIPID [id number] 00:00:00* Test Item Value Reference Range Interpretation Comme nts CHOLESTEROL (test code = 2210) 184 MG/DL TRIGLYCERIDES (test code = 2232) 95 MG/DL HDL CHOLESTEROL (test code = 2220) 51 MG/DL CALC LDL CHOL (test code = 2237) 114 MG/DL RISK RATIO LDL/HDL (test cod e = 2238) 2.24 RATIO [id number] 00:00:00* Test Item Value Reference Range Interpretation Comme nts TSH, THIRD GENERATION (test code = 2821) 2.720 UIU/ML VITAMIN B 12 AND FOLIC [id number] 00:00:00* Test Item Value Reference Range Interpretation Comme [facility] VITAMIN B-12 (test code = 2840) >2000 PG/ML FOLIC ACID (test code = 2695) 5.4 UG/L VITAMIN D, 25 [id number] 00:00:00* Test Item Value Reference Range Interpretation Comme [facility] VITAMIN D, 25 OH (test code = 4958) 24 NG/ML COMPREHENSIVE METABOLIC [id number] 00:00:00* Test Item Value Reference Range Interpretation Comme nts GLUCOSE (test code = 2217) 93 MG/DL BUN (test code = 2208) 12 MG/DL CREATININE (test code = 2214) 1.12 MG/DL eGFR AMER. (test cod e = 72693) 73 ML/MIN/1.73 eGFR NON- AMER. (test code = 01166) 63 ML/MIN/1.73 CALC BUN/CREAT (test code = [...] code = 2219) 14 U/L CBC W/AUTO [id number] 00:00:00* Test Item Value Reference Range Interpretation [...] (test code = 1015) 228 K/UL HEMOGLOBIN [id number] 00:00:00* Test Item Value Reference Range Interpretation Comme nts HEMOGLOBIN A1c (test code = 89827) 5.4 % LIPID [id number] 00:00:00* Test Item Value Reference Range Interpretation Comme nts CHOLESTEROL (test code = 2210) 184 MG/DL TRIGLYCERIDES (test code = 2232) 95 MG/DL HDL CHOLESTEROL (test code = 2220) 51 MG/DL CALC LDL CHOL (test code = 2237) 114 MG/DL RISK RATIO LDL/HDL (test cod e = 2238) 2.24 RATIO [id number] 00:00:00* Test Item Value Reference Range Interpretation Comme nts TSH, THIRD GENERATION (test code = 2821) 2.720 UIU/ML VITAMIN B 12 AND FOLIC [id number] 00:00:00* Test Item Value Reference Range Interpretation Comme nts VITAMIN B-12 (test code = 2840) >2000 PG/ML FOLIC ACID (test code = 2695) 5.4 UG/L VITAMIN D, 25 [id number] 00:00:00* Test Item Value Reference Range Interpretation Comme nts VITAMIN D, 25 OH (test code = 4958) 24 NG/ML COMPREHENSIVE METABOLIC [id number] 00:00:00* Test Item Value Reference Range Interpretation Comme nts GLUCOSE (test code = 2217) 93 MG/DL BUN (test code = 2208) 12 MG/DL CREATININE (test code = 2214) 1.12 MG/DL eGFR AMER. (test cod e = 82730) 73 ML/MIN/1.73 eGFR NON- AMER. (test code = 73511) 63 ML/MIN/1.73 CALC BUN/CREAT (test code = [...] code = 2219) 14 U/L COMPREHENSIVE METABOLIC [id number] 00:00:00* Test Item Value Reference Range Interpretation Comme nts GLUCOSE (test code = 2217) 87 MG/DL BUN (test code = 2208) 19 MG/DL CREATININE (test code = 2214) 1.13 MG/DL eGFR AMER. (test cod e = 23142) 73 ML/MIN/1.73 eGFR NON- AMER. (test code = 74367) 63 ML/MIN/1.73 CALC BUN/CREAT (test code = [...] code = 2219) 10 U/L Juan SantanaLIPID [id number] 00:00:00* Test Item Value Reference Range Interpretation Comme nts CHOLESTEROL (test code = 2210) 206 MG/DL TRIGLYCERIDES (test code = 2232) 94 MG/DL HDL CHOLESTEROL (test code = 2220) 61 MG/DL CALC LDL CHOL (test code = 2237) 126 MG/DL RISK RATIO LDL/HDL (test cod e = 2238) 2.07 RATIO Juan SantanaCBC W/AUTO [id number] 00:00:00* Test Item Value Reference Range Interpretation [...] code = 1015) 300 K/UL Juan SantanaHEMOGLOBIN [id number] 00:00:00* Test Item Value Reference Range Interpretation Comme nts HEMOGLOBIN A1c (test code = 52987) 5.7 % Juan [id number] 00:00:00* Test Item Value Reference Range Interpretation Comme nts TSH (test code = 2821) 1.3 UIU/ML Juan SantanaCOMPREHENSIVE METABOLIC [id number] 00:00:00* Test Item Value Reference Range Interpretation Comme nts GLUCOSE (test code = 2217) 87 MG/DL BUN (test code = 2208) 19 MG/DL CREATININE (test code = 2214) 1.13 MG/DL eGFR AMER. (test cod e = 77174) 73 ML/MIN/1.73 eGFR NON- AMER. (test code = 21936) 63 ML/MIN/1.73 CALC BUN/CREAT (test code = [...] code = 2219) 10 U/L Juan SantanaLIPID [id number] 00:00:00* Test Item Value Reference Range Interpretation Comme nts CHOLESTEROL (test code = 2210) 206 MG/DL TRIGLYCERIDES (test code = 2232) 94 MG/DL HDL CHOLESTEROL (test code = 2220) 61 MG/DL CALC LDL CHOL (test code = 2237) 126 MG/DL RISK RATIO LDL/HDL (test cod e = 2238) 2.07 RATIO Juan SantanaCBC W/AUTO [id number] 00:00:00* Test Item Value Reference Range Interpretation [...] code = 1015) 300 K/UL Juan SantanaHEMOGLOBIN [id number] 00:00:00* Test Item Value Reference Range Interpretation Comme nts HEMOGLOBIN A1c (test code = 21982) 5.7 % Juan Richard [id number] 00:00:00* Test Item Value Reference Range Interpretation Comme nts TSH (test code = 2821) 1.3 UIU/ML Juan SantanaCOMPREHENSIVE METABOLIC [id number] 00:00:00* Test Item Value Reference Range Interpretation Comme nts GLUCOSE (test code = 2217) 87 MG/DL BUN (test code = 2208) 19 MG/DL CREATININE (test code = 2214) 1.13 MG/DL eGFR AMER. (test cod e = 56795) 73 ML/MIN/1.73 eGFR NON- AMER. (test code = 29708) 63 ML/MIN/1.73 CALC BUN/CREAT (test code = [...] code = 2219) 10 U/L Juan SantanaLIPID [id number] 00:00:00* Test Item Value Reference Range Interpretation Comme nts CHOLESTEROL (test code = 2210) 206 MG/DL TRIGLYCERIDES (test code = 2232) 94 MG/DL HDL CHOLESTEROL (test code = 2220) 61 MG/DL CALC LDL CHOL (test code = 2237) 126 MG/DL RISK RATIO LDL/HDL (test cod e = 2238) 2.07 RATIO Juan SantanaCBC W/AUTO [id number] 00:00:00* Test Item Value Reference Range Interpretation [...] (test code = 1015) 300 K/UL Juan SantanaLIPID [id number] 00:00:00* Test Item Value Reference Range Interpretation Comme nts CHOLESTEROL (test code = 2210) 206 MG/DL TRIGLYCERIDES (test code = 2232) 94 MG/DL HDL CHOLESTEROL (test code = 2220) 61 MG/DL CALC LDL CHOL (test code = 2237) 126 MG/DL RISK RATIO LDL/HDL (test cod e = 2238) 2.07 RATIO Juan SantanaHEMOGLOBIN [id number] 00:00:00* Test Item Value Reference Range Interpretation Comme nts HEMOGLOBIN A1c (test code = 12476) 5.7 % Juan [id number] 00:00:00* Test Item Value Reference Range Interpretation Comme nts TSH (test code = 2821) 1.3 UIU/ML Juan SantanaCOMPREHENSIVE METABOLIC [id number] 00:00:00* Test Item Value Reference Range Interpretation Comme nts GLUCOSE (test code = 2217) 87 MG/DL BUN (test code = 2208) 19 MG/DL CREATININE (test code = 2214) 1.13 MG/DL eGFR AMER. (test cod e = 66561) 73 ML/MIN/1.73 eGFR NON- AMER. (test code = 30788) 63 ML/MIN/1.73 CALC BUN/CREAT (test code = [...] = 2219) 10 U/L Juan SantanaCBC W/AUTO [id number] 00:00:00* Test Item Value Reference Range Interpretation [...] (test code = 1015) 300 K/UL Juan SantanaLIPID [id number] 00:00:00* Test Item Value Reference Range Interpretation Comme nts CHOLESTEROL (test code = 2210) 206 MG/DL TRIGLYCERIDES (test code = 2232) 94 MG/DL HDL CHOLESTEROL (test code = 2220) 61 MG/DL CALC LDL CHOL (test code = 2237) 126 MG/DL RISK RATIO LDL/HDL (test cod e = 2238) 2.07 RATIO Juan SantanaCBC W/AUTO [id number] 00:00:00* Test Item Value Reference Range Interpretation [...] code = 1015) 300 K/UL Juan SantanaHEMOGLOBIN [id number] 00:00:00* Test Item Value Reference Range Interpretation Comme nts HEMOGLOBIN A1c (test code = 14864) 5.7 % Juan Richard [id number] 00:00:00* Test Item Value Reference Range Interpretation Comme nts TSH (test code = 2821) 1.3 UIU/ML Juan SantanaHEMOGLOBIN [id number] 00:00:00* Test Item Value Reference Range Interpretation Comme nts HEMOGLOBIN A1c (test code = 89267) 5.7 % Juan SantanaCOMPREHENSIVE METABOLIC [id number] 00:00:00* Test Item Value Reference Range Interpretation Comme nts GLUCOSE (test code = 2217) 87 MG/DL BUN (test code = 2208) 19 MG/DL CREATININE (test code = 2214) 1.13 MG/DL eGFR AMER. (test cod e = 12825) 73 ML/MIN/1.73 eGFR NON- AMER. (test code = 14371) 63 ML/MIN/1.73 CALC BUN/CREAT (test code = [...] code = 2219) 10 U/L Juan SantanaLIPID [id number] 00:00:00* Test Item Value Reference Range Interpretation Comme nts CHOLESTEROL (test code = 2210) 206 MG/DL TRIGLYCERIDES (test code = 2232) 94 MG/DL HDL CHOLESTEROL (test code = 2220) 61 MG/DL CALC LDL CHOL (test code = 2237) 126 MG/DL RISK RATIO LDL/HDL (test cod e = 2238) 2.07 RATIO Juan Richard MaxCBC W/AUTO [id number] 00:00:00* Test Item Value Reference Range Interpretation [...] (test code = 1015) 300 K/UL Juan Richard MaxHEMOGLOBIN [id number] 00:00:00* Test Item Value Reference Range Interpretation Comme nts HEMOGLOBIN A1c (test code = 52991) 5.7 % Juan Richard [id number] 00:00:00* Test Item Value Reference Range Interpretation Comme nts TSH (test code = 2821) 1.3 UIU/ML Juan [id number] 00:00:00* Test Item Value Reference Range Interpretation Comme nts TSH (test code = 2821) 1.3 UIU/ML Juan SantanaCOMPREHENSIVE METABOLIC [id number] 00:00:00* Test Item Value Reference Range Interpretation Comme nts GLUCOSE (test code = 2217) 87 MG/DL BUN (test code = 2208) 19 MG/DL CREATININE (test code = 2214) 1.13 MG/DL eGFR AMER. (test cod e = 77711) 73 ML/MIN/1.73 eGFR NON- AMER. (test code = 03677) 63 ML/MIN/1.73 CALC BUN/CREAT (test code = [...] code = 2219) 10 U/L Juan SantanaLIPID [id number] 00:00:00* Test Item Value Reference Range Interpretation Comme nts CHOLESTEROL (test code = 2210) 206 MG/DL TRIGLYCERIDES (test code = 2232) 94 MG/DL HDL CHOLESTEROL (test code = 2220) 61 MG/DL CALC LDL CHOL (test code = 2237) 126 MG/DL RISK RATIO LDL/HDL (test cod e = 2238) 2.07 RATIO Juan SantanaCBC W/AUTO [id number] 00:00:00* Test Item Value Reference Range Interpretation [...] code = 1015) 300 K/UL Juan SantanaHEMOGLOBIN [id number] 00:00:00* Test Item Value Reference Range Interpretation Comme oneal HEMOGLOBIN A1c (test code = 93753) 5.7 % Juan [id number] 00:00:00* Test Item Value Reference Range Interpretation Comme nts TSH (test code = 2821) 1.3 UIU/ML Juan SantanaCOMPREHENSIVE METABOLIC [id number] 00:00:00* Test Item Value Reference Range Interpretation Comme nts GLUCOSE (test code = 2217) 87 MG/DL BUN (test code = 2208) 19 MG/DL CREATININE (test code = 2214) 1.13 MG/DL eGFR AMER. (test cod e = 62120) 73 ML/MIN/1.73 eGFR NON- AMER. (test code = 21085) 63 ML/MIN/1.73 CALC BUN/CREAT (test code = [...] code = 2219) 10 U/L Juan SantanaLIPID [id number] 00:00:00* Test Item Value Reference Range Interpretation Comme nts CHOLESTEROL (test code = 2210) 206 MG/DL TRIGLYCERIDES (test code = 2232) 94 MG/DL HDL CHOLESTEROL (test code = 2220) 61 MG/DL CALC LDL CHOL (test code = 2237) 126 MG/DL RISK RATIO LDL/HDL (test cod e = 2238) 2.07 RATIO Juan SantanaCBC W/AUTO [id number] 00:00:00* Test Item Value Reference Range Interpretation [...] code = 1015) 300 K/UL Juan SantanaHEMOGLOBIN [id number] 00:00:00* Test Item Value Reference Range Interpretation Comme oneal HEMOGLOBIN A1c (test code = 19205) 5.7 % Juan Richard [id number] 00:00:00* Test Item Value Reference Range Interpretation Comme nts TSH (test code = 2821) 1.3 UIU/ML Juan SantanaCOMPREHENSIVE METABOLIC [id number] 00:00:00* Test Item Value Reference Range Interpretation Comme nts GLUCOSE (test code = 2217) 87 MG/DL BUN (test code = 2208) 19 MG/DL CREATININE (test code = 2214) 1.13 MG/DL eGFR AMER. (test cod e = 95720) 73 ML/MIN/1.73 eGFR NON- AMER. (test code = 66071) 63 ML/MIN/1.73 CALC BUN/CREAT (test code = [...] code = 2219) 10 U/L Juan SantanaLIPID [id number] 00:00:00* Test Item Value Reference Range Interpretation Comme nts CHOLESTEROL (test code = 2210) 206 MG/DL TRIGLYCERIDES (test code = 2232) 94 MG/DL HDL CHOLESTEROL (test code = 2220) 61 MG/DL CALC LDL CHOL (test code = 2237) 126 MG/DL RISK RATIO LDL/HDL (test cod e = 2238) 2.07 RATIO Juan SantanaCBC W/AUTO [id number] 00:00:00* Test Item Value Reference Range Interpretation [...] code = 1015) 300 K/UL Juan SantanaHEMOGLOBIN [id number] 00:00:00* Test Item Value Reference Range Interpretation Comme nts HEMOGLOBIN A1c (test code = 45387) 5.7 % Juan [id number] 00:00:00* Test Item Value Reference Range Interpretation Comme nts TSH (test code = 2821) 1.3 UIU/ML Juan SantanaCOMPREHENSIVE METABOLIC [id number] 00:00:00* Test Item Value Reference Range Interpretation Comme nts GLUCOSE (test code = 2217) 87 MG/DL BUN (test code = 2208) 19 MG/DL CREATININE (test code = 2214) 1.13 MG/DL eGFR AMER. (test cod e = 53530) 73 ML/MIN/1.73 eGFR NON- AMER. (test code = 95039) 63 ML/MIN/1.73 CALC BUN/CREAT (test code = [...] code = 2219) 10 U/L Juan SantanaLIPID [id number] 00:00:00* Test Item Value Reference Range Interpretation Comme nts CHOLESTEROL (test code = 2210) 206 MG/DL TRIGLYCERIDES (test code = 2232) 94 MG/DL HDL CHOLESTEROL (test code = 2220) 61 MG/DL CALC LDL CHOL (test code = 2237) 126 MG/DL RISK RATIO LDL/HDL (test cod e = 2238) 2.07 RATIO Juan SantanaCBC W/AUTO [id number] 00:00:00* Test Item Value Reference Range Interpretation [...] code = 1015) 300 K/UL Juan SantanaHEMOGLOBIN [id number] 00:00:00* Test Item Value Reference Range Interpretation Comme oneal HEMOGLOBIN A1c (test code = 65825) 5.7 % Juan Richard [id number] 00:00:00* Test Item Value Reference Range Interpretation Comme nts TSH (test code = 2821) 1.3 UIU/ML Juan SantanaCOMPREHENSIVE METABOLIC [id number] 00:00:00* Test Item Value Reference Range Interpretation Comme nts GLUCOSE (test code = 2217) 87 MG/DL BUN (test code = 2208) 19 MG/DL CREATININE (test code = 2214) 1.13 MG/DL eGFR AMER. (test cod e = 78208) 73 ML/MIN/1.73 eGFR NON- AMER. (test code = 09835) 63 ML/MIN/1.73 CALC BUN/CREAT (test code = [...] code = 2219) 10 U/L Juan SantanaLIPID [id number] 00:00:00* Test Item Value Reference Range Interpretation Comme nts CHOLESTEROL (test code = 2210) 206 MG/DL TRIGLYCERIDES (test code = 2232) 94 MG/DL HDL CHOLESTEROL (test code = 2220) 61 MG/DL CALC LDL CHOL (test code = 2237) 126 MG/DL RISK RATIO LDL/HDL (test cod e = 2238) 2.07 RATIO Juan SantanaCBC W/AUTO [id number] 00:00:00* Test Item Value Reference Range Interpretation [...] code = 1015) 300 K/UL Juan SantanaHEMOGLOBIN [id number] 00:00:00* Test Item Value Reference Range Interpretation Comme oneal HEMOGLOBIN A1c (test code = 25955) 5.7 % Juan [id number] 00:00:00* Test Item Value Reference Range Interpretation Comme nts TSH (test code = 2821) 1.3 UIU/ML Juan SantanaCOMPREHENSIVE METABOLIC [id number] 00:00:00* Test Item Value Reference Range Interpretation Comme nts GLUCOSE (test code = 2217) 87 MG/DL BUN (test code = 2208) 19 MG/DL CREATININE (test code = 2214) 1.13 MG/DL eGFR AMER. (test cod e = 11407) 73 ML/MIN/1.73 eGFR NON- AMER. (test code = 61564) 63 ML/MIN/1.73 CALC BUN/CREAT (test code = [...] code = 2219) 10 U/L Juan SantanaLIPID [id number] 00:00:00* Test Item Value Reference Range Interpretation Comme nts CHOLESTEROL (test code = 2210) 206 MG/DL TRIGLYCERIDES (test code = 2232) 94 MG/DL HDL CHOLESTEROL (test code = 2220) 61 MG/DL CALC LDL CHOL (test code = 2237) 126 MG/DL RISK RATIO LDL/HDL (test cod e = 2238) 2.07 RATIO Juan SantanaCBC W/AUTO [id number] 00:00:00* Test Item Value Reference Range Interpretation [...] code = 1015) 300 K/UL Juan SantanaHEMOGLOBIN [id number] 00:00:00* Test Item Value Reference Range Interpretation Comme oneal HEMOGLOBIN A1c (test code = 00579) 5.7 % Juan [id number] 00:00:00* Test Item Value Reference Range Interpretation Comme oneal TSH (test code = 2821) 1.3 UIU/ML Juan SantanaCOMPREHENSIVE METABOLIC [id number] 00:00:00* Test Item Value Reference Range Interpretation Comme nts GLUCOSE (test code = 2217) 87 MG/DL BUN (test code = 2208) 19 MG/DL CREATININE (test code = 2214) 1.13 MG/DL eGFR AMER. (test cod e = 39050) 73 ML/MIN/1.73 eGFR NON- AMER. (test code = 59417) 63 ML/MIN/1.73 CALC BUN/CREAT (test code = [...] code = 2219) 10 U/L Juan SantanaLIPID [id number] 00:00:00* Test Item Value Reference Range Interpretation Comme nts CHOLESTEROL (test code = 2210) 206 MG/DL TRIGLYCERIDES (test code = 2232) 94 MG/DL HDL CHOLESTEROL (test code = 2220) 61 MG/DL CALC LDL CHOL (test code = 2237) 126 MG/DL RISK RATIO LDL/HDL (test cod e = 2238) 2.07 RATIO Juan SantanaCBC W/AUTO [id number] 00:00:00* Test Item Value Reference Range Interpretation [...] code = 1015) 300 K/UL Juan SantanaHEMOGLOBIN [id number] 00:00:00* Test Item Value Reference Range Interpretation Comme oneal HEMOGLOBIN A1c (test code = 12530) 5.7 % Juan Richard [id number] 00:00:00* Test Item Value Reference Range Interpretation Comme nts TSH (test code = 2821) 1.3 UIU/ML Juan SantanaCOMPREHENSIVE METABOLIC [id number] 00:00:00* Test Item Value Reference Range Interpretation Comme nts GLUCOSE (test code = 2217) 87 MG/DL BUN (test code = 2208) 19 MG/DL CREATININE (test code = 2214) 1.13 MG/DL eGFR AMER. (test cod e = 14610) 73 ML/MIN/1.73 eGFR NON- AMER. (test code = 23512) 63 ML/MIN/1.73 CALC BUN/CREAT (test code = [...] code = 2219) 10 U/L Juan SantanaLIPID [id number] 00:00:00* Test Item Value Reference Range Interpretation Comme nts CHOLESTEROL (test code = 2210) 206 MG/DL TRIGLYCERIDES (test code = 2232) 94 MG/DL HDL CHOLESTEROL (test code = 2220) 61 MG/DL CALC LDL CHOL (test code = 2237) 126 MG/DL RISK RATIO LDL/HDL (test cod e = 2238) 2.07 RATIO Juan SantanaCBC W/AUTO [id number] 00:00:00* Test Item Value Reference Range Interpretation [...] code = 1015) 300 K/UL Juan SantanaHEMOGLOBIN [id number] 00:00:00* Test Item Value Reference Range Interpretation Comme nts HEMOGLOBIN A1c (test code = 65459) 5.7 % Juan [id number] 00:00:00* Test Item Value Reference Range Interpretation Comme nts TSH (test code = 2821) 1.3 UIU/ML Juan SantanaCOMPREHENSIVE METABOLIC [id number] 00:00:00* Test Item Value Reference Range Interpretation Comme nts GLUCOSE (test code = 2217) 87 MG/DL BUN (test code = 2208) 19 MG/DL CREATININE (test code = 2214) 1.13 MG/DL eGFR AMER. (test cod e = 91262) 73 ML/MIN/1.73 eGFR NON- AMER. (test code = 80109) 63 ML/MIN/1.73 CALC BUN/CREAT (test code = [...] code = 2219) 10 U/L Juan SantanaLIPID [id number] 00:00:00* Test Item Value Reference Range Interpretation Comme nts CHOLESTEROL (test code = 2210) 206 MG/DL TRIGLYCERIDES (test code = 2232) 94 MG/DL HDL CHOLESTEROL (test code = 2220) 61 MG/DL CALC LDL CHOL (test code = 2237) 126 MG/DL RISK RATIO LDL/HDL (test cod e = 2238) 2.07 RATIO Juan SantanaCBC W/AUTO [id number] 00:00:00* Test Item Value Reference Range Interpretation [...] code = 1015) 300 K/UL Juan SantanaHEMOGLOBIN [id number] 00:00:00* Test Item Value Reference Range Interpretation Comme oneal HEMOGLOBIN A1c (test code = 01993) 5.7 % Juan [id number] 00:00:00* Test Item Value Reference Range Interpretation Comme oneal TSH (test code = 2821) 1.3 UIU/ML Juan SantanaCOMPREHENSIVE METABOLIC [id number] 00:00:00* Test Item Value Reference Range Interpretation Comme nts GLUCOSE (test code = 2217) 87 MG/DL BUN (test code = 2208) 19 MG/DL CREATININE (test code = 2214) 1.13 MG/DL eGFR AMER. (test cod e = 56129) 73 ML/MIN/1.73 eGFR NON- AMER. (test code = 50451) 63 ML/MIN/1.73 CALC BUN/CREAT (test code = [...] code = 2219) 10 U/L Juan SantanaLIPID [id number] 00:00:00* Test Item Value Reference Range Interpretation Comme nts CHOLESTEROL (test code = 2210) 206 MG/DL TRIGLYCERIDES (test code = 2232) 94 MG/DL HDL CHOLESTEROL (test code = 2220) 61 MG/DL CALC LDL CHOL (test code = 2237) 126 MG/DL RISK RATIO LDL/HDL (test cod e = 2238) 2.07 RATIO Juan SantanaCOMPREHENSIVE METABOLIC [id number] 00:00:00* Test Item Value Reference Range Interpretation Comme nts GLUCOSE (test code = 2217) 87 MG/DL BUN (test code = 2208) 19 MG/DL CREATININE (test code = 2214) 1.13 MG/DL eGFR AMER. (test cod e = 15108) 73 ML/MIN/1.73 eGFR NON- AMER. (test code = 86821) 63 ML/MIN/1.73 CALC BUN/CREAT (test code = [...] (test code = 2219) 10 U/L Juan Richard MaxCBC W/AUTO [id number] 00:00:00* Test Item Value Reference Range Interpretation [...] (test code = 1015) 300 K/UL Juan Richard AustinHEMOGLOBIN [id number] 00:00:00* Test Item Value Reference Range Interpretation Comme nts HEMOGLOBIN A1c (test code = 39672) 5.7 % Juan Richard [id number] 00:00:00* Test Item Value Reference Range Interpretation Comme nts TSH (test code = 2821) 1.3 UIU/ML Juan Richard AustinLIPID [id number] 00:00:00* Test Item Value Reference Range Interpretation Comme nts CHOLESTEROL (test code = 2210) 206 MG/DL TRIGLYCERIDES (test code = 2232) 94 MG/DL HDL CHOLESTEROL (test code = 2220) 61 MG/DL CALC LDL CHOL (test code = 2237) 126 MG/DL RISK RATIO LDL/HDL (test cod e = 2238) 2.07 RATIO CBC W/AUTO [id number] 00:00:00* Test Item Value Reference Range Interpretation [...] (test code = 1015) 300 K/UL HEMOGLOBIN [id number] 00:00:00* Test Item Value Reference Range Interpretation Comme nts HEMOGLOBIN A1c (test code = 60135) 5.7 % [id number] 00:00:00* Test Item Value Reference Range Interpretation Comme nts TSH (test code = 2821) 1.3 UIU/ML COMPREHENSIVE METABOLIC [id number] 00:00:00* Test Item Value Reference Range Interpretation Comme nts GLUCOSE (test code = 2217) 87 MG/DL BUN (test code = 2208) 19 MG/DL CREATININE (test code = 2214) 1.13 MG/DL eGFR AMER. (test cod e = 65100) 73 ML/MIN/1.73 eGFR NON- AMER. (test code = 43326) 63 ML/MIN/1.73 CALC BUN/CREAT (test code = [...] (test code = 2219) 10 U/L LIPID [id number] 00:00:00* Test Item Value Reference Range Interpretation Comme nts CHOLESTEROL (test code = 2210) 206 MG/DL TRIGLYCERIDES (test code = 2232) 94 MG/DL HDL CHOLESTEROL (test code = 2220) 61 MG/DL CALC LDL CHOL (test code = 2237) 126 MG/DL RISK RATIO LDL/HDL (test cod e = 2238) 2.07 RATIO CBC W/AUTO [id number] 00:00:00* Test Item Value Reference Range Interpretation [...] (test code = 1015) 300 K/UL HEMOGLOBIN [id number] 00:00:00* Test Item Value Reference Range Interpretation Comme nts HEMOGLOBIN A1c (test code = 74791) 5.7 % [id number] 00:00:00* Test Item Value Reference Range Interpretation Comme nts TSH (test code = 2821) 1.3 UIU/ML COMPREHENSIVE METABOLIC [id number] 00:00:00* Test Item Value Reference Range Interpretation Comme nts GLUCOSE (test code = 2217) 87 MG/DL BUN (test code = 2208) 19 MG/DL CREATININE (test code = 2214) 1.13 MG/DL eGFR AMER. (test cod e = 09351) 73 ML/MIN/1.73 eGFR NON- AMER. (test code = 16150) 63 ML/MIN/1.73 CALC BUN/CREAT (test code = [...] code = 2219) 10 U/L CBC W/AUTO [id number] 00:00:00* Test Item Value Reference Range Interpretation [...] (test code = 1015) 267 K/UL Juan [id number] 00:00:00* Test Item Value Reference Range Interpretation Comme nts TSH (test code = 2821) 3.6 UIU/ML Juan SantanaLIPID [id number] 00:00:00* Test Item Value Reference Range Interpretation Comme nts CHOLESTEROL (test code = 2210) 195 MG/DL TRIGLYCERIDES (test code = 2232) 98 MG/DL HDL CHOLESTEROL (test code = 2220) 50 MG/DL CALCULATED LDL CHOL (test co de = 2237) 125 MG/DL RISK RATIO LDL/HDL (test cod e = 2238) 2.51 RATIO Juan SantanaCOMPREHENSIVE METABOLIC [id number] 00:00:00* Test Item Value Reference Range Interpretation Comme nts GLUCOSE (test code = 2217) 86 MG/DL BUN (test code = 2208) 13 MG/DL CREATININE (test code = 2214) 1.1 MG/DL eGFR AMER. (test cod e = 15314) 69 ML/MIN/1.73 eGFR NON- AMER. (test code = 26480) 57 ML/MIN/1.73 CALCULATED BUN/CREAT (test code = [...] code = 2219) 8 U/L Juan Richard AustinCBC W/AUTO [id number] 00:00:00* Test Item Value Reference Range Interpretation [...] code = 1015) 267 K/UL Juan Richard AustinCBC W/AUTO [id number] 00:00:00* Test Item Value Reference Range Interpretation [...] code = 1015) 267 K/UL Juan Richard [id number] 00:00:00* Test Item Value Reference Range Interpretation Comme nts TSH (test code = 2821) 3.6 UIU/ML Juan Richard [id number] 00:00:00* Test Item Value Reference Range Interpretation Comme nts TSH (test code = 2821) 3.6 UIU/ML [facility] [id number] 00:00:00* Test Item Value Reference Range Interpretation Comme nts CHOLESTEROL (test code = 2210) 195 MG/DL TRIGLYCERIDES (test code = 2232) 98 MG/DL HDL CHOLESTEROL (test code = 2220) 50 MG/DL CALCULATED LDL CHOL (test co de = 2237) 125 MG/DL RISK RATIO LDL/HDL (test cod e = 2238) 2.51 RATIO Juan SantanaCOMPREHENSIVE METABOLIC [id number] 00:00:00* Test Item Value Reference Range Interpretation Comme nts GLUCOSE (test code = 2217) 86 MG/DL BUN (test code = 2208) 13 MG/DL CREATININE (test code = 2214) 1.1 MG/DL eGFR AMER. (test cod e = 04762) 69 ML/MIN/1.73 eGFR NON- AMER. (test code = 67783) 57 ML/MIN/1.73 CALCULATED BUN/CREAT (test code = [...] = 2219) 8 U/L Juan SantanaCBC W/AUTO [id number] 00:00:00* Test Item Value Reference Range Interpretation [...] (test code = 1015) 267 K/UL Juan [id number] 00:00:00* Test Item Value Reference Range Interpretation Comme nts TSH (test code = 2821) 3.6 UIU/ML Juan SantanaLIPID [id number] 00:00:00* Test Item Value Reference Range Interpretation Comme nts CHOLESTEROL (test code = 2210) 195 MG/DL TRIGLYCERIDES (test code = 2232) 98 MG/DL HDL CHOLESTEROL (test code = 2220) 50 MG/DL CALCULATED LDL CHOL (test co de = 2237) 125 MG/DL RISK RATIO LDL/HDL (test cod e = 2238) 2.51 RATIO Juan SantanaCOMPREHENSIVE METABOLIC [id number] 00:00:00* Test Item Value Reference Range Interpretation Comme nts GLUCOSE (test code = 2217) 86 MG/DL BUN (test code = 2208) 13 MG/DL CREATININE (test code = 2214) 1.1 MG/DL eGFR AMER. (test cod e = 22898) 69 ML/MIN/1.73 eGFR NON- AMER. (test code = 83540) 57 ML/MIN/1.73 CALCULATED BUN/CREAT (test code = [...] = 2219) 8 U/L Juan SantanaCBC W/AUTO [id number] 00:00:00* Test Item Value Reference Range Interpretation [...] (test code = 1015) 267 K/UL Juan [id number] 00:00:00* Test Item Value Reference Range Interpretation Comme nts TSH (test code = 2821) 3.6 UIU/ML Juan SantanaLIPID [id number] 00:00:00* Test Item Value Reference Range Interpretation Comme nts CHOLESTEROL (test code = 2210) 195 MG/DL TRIGLYCERIDES (test code = 2232) 98 MG/DL HDL CHOLESTEROL (test code = 2220) 50 MG/DL CALCULATED LDL CHOL (test co de = 2237) 125 MG/DL RISK RATIO LDL/HDL (test cod e = 2238) 2.51 RATIO Juan SantanaCOMPREHENSIVE METABOLIC [id number] 00:00:00* Test Item Value Reference Range Interpretation Comme nts GLUCOSE (test code = 2217) 86 MG/DL BUN (test code = 2208) 13 MG/DL CREATININE (test code = 2214) 1.1 MG/DL eGFR AMER. (test cod e = 89478) 69 ML/MIN/1.73 eGFR NON- AMER. (test code = 70801) 57 ML/MIN/1.73 CALCULATED BUN/CREAT (test code = [...] code = 2219) 8 U/L Juan Richard MaxLIPID [id number] 00:00:00* Test Item Value Reference Range Interpretation Comme nts CHOLESTEROL (test code = 2210) 195 MG/DL TRIGLYCERIDES (test code = 2232) 98 MG/DL HDL CHOLESTEROL (test code = 2220) 50 MG/DL CALCULATED LDL CHOL (test co de = 2237) 125 MG/DL RISK RATIO LDL/HDL (test cod e = 2238) 2.51 RATIO Juan Richard MaxCBC W/AUTO [id number] 00:00:00* Test Item Value Reference Range Interpretation [...] code = 1015) 267 K/UL Juan Richard [id number] 00:00:00* Test Item Value Reference Range Interpretation Comme nts TSH (test code = 2821) 3.6 UIU/ML Juan Richard AustinCOMPREHENSIVE METABOLIC [id number] 00:00:00* Test Item Value Reference Range Interpretation Comme nts GLUCOSE (test code = 2217) 86 MG/DL BUN (test code = 2208) 13 MG/DL CREATININE (test code = 2214) 1.1 MG/DL eGFR AMER. (test cod e = 64538) 69 ML/MIN/1.73 eGFR NON- AMER. (test code = 38916) 57 ML/MIN/1.73 CALCULATED BUN/CREAT (test code = [...] code = 2219) 8 U/L Juan Richard AustinLIPID [id number] 00:00:00* Test Item Value Reference Range Interpretation Comme nts CHOLESTEROL (test code = 2210) 195 MG/DL TRIGLYCERIDES (test code = 2232) 98 MG/DL HDL CHOLESTEROL (test code = 2220) 50 MG/DL CALCULATED LDL CHOL (test co de = 2237) 125 MG/DL RISK RATIO LDL/HDL (test cod e = 2238) 2.51 RATIO Juan Richard AustinCOMPREHENSIVE METABOLIC [id number] 00:00:00* Test Item Value Reference Range Interpretation Comme nts GLUCOSE (test code = 2217) 86 MG/DL BUN (test code = 2208) 13 MG/DL CREATININE (test code = 2214) 1.1 MG/DL eGFR AMER. (test cod e = 23787) 69 ML/MIN/1.73 eGFR NON- AMER. (test code = 61330) 57 ML/MIN/1.73 CALCULATED BUN/CREAT (test code = [...] 2219) 8 U/L Juan Richard MaxCBC W/AUTO [id number] 00:00:00* Test Item Value Reference Range Interpretation [...] code = 1015) 267 K/UL Juan Richard [id number] 00:00:00* Test Item Value Reference Range Interpretation Comme nts TSH (test code = 2821) 3.6 UIU/ML Juan Richard MaxLIPID [id number] 00:00:00* Test Item Value Reference Range Interpretation Comme nts CHOLESTEROL (test code = 2210) 195 MG/DL TRIGLYCERIDES (test code = 2232) 98 MG/DL HDL CHOLESTEROL (test code = 2220) 50 MG/DL CALCULATED LDL CHOL (test co de = 2237) 125 MG/DL RISK RATIO LDL/HDL (test cod e = 2238) 2.51 RATIO Juan SantanaCOMPREHENSIVE METABOLIC [id number] 00:00:00* Test Item Value Reference Range Interpretation Comme nts GLUCOSE (test code = 2217) 86 MG/DL BUN (test code = 2208) 13 MG/DL CREATININE (test code = 2214) 1.1 MG/DL eGFR AMER. (test cod e = 29564) 69 ML/MIN/1.73 eGFR NON- AMER. (test code = 02494) 57 ML/MIN/1.73 CALCULATED BUN/CREAT (test code = [...] = 2219) 8 U/L Juan SantanaCBC W/AUTO [id number] 00:00:00* Test Item Value Reference Range Interpretation [...] (test code = 1015) 267 K/UL Juan [id number] 00:00:00* Test Item Value Reference Range Interpretation Comme nts TSH (test code = 2821) 3.6 UIU/ML Juan SantanaLIPID [id number] 00:00:00* Test Item Value Reference Range Interpretation Comme nts CHOLESTEROL (test code = 2210) 195 MG/DL TRIGLYCERIDES (test code = 2232) 98 MG/DL HDL CHOLESTEROL (test code = 2220) 50 MG/DL CALCULATED LDL CHOL (test co de = 223) 125 MG/DL RISK RATIO LDL/HDL (test cod e = 2238) 2.51 RATIO Juan SantanaCOMPREHENSIVE METABOLIC [id number] 00:00:00* Test Item Value Reference Range Interpretation Comme nts GLUCOSE (test code = 2217) 86 MG/DL BUN (test code = 2208) 13 MG/DL CREATININE (test code = 2214) 1.1 MG/DL eGFR AMER. (test cod e = 46123) 69 ML/MIN/1.73 eGFR NON- AMER. (test code = 30924) 57 ML/MIN/1.73 CALCULATED BUN/CREAT (test code = [...] = 2219) 8 U/L Juan SantanaCBC W/AUTO [id number] 00:00:00* Test Item Value Reference Range Interpretation [...] (test code = 1015) 267 K/UL Juan [id number] 00:00:00* Test Item Value Reference Range Interpretation Comme oneal TSH (test code = 2821) 3.6 UIU/ML Juan SantanaLIPID [id number] 00:00:00* Test Item Value Reference Range Interpretation Comme nts CHOLESTEROL (test code = 2210) 195 MG/DL TRIGLYCERIDES (test code = 2232) 98 MG/DL HDL CHOLESTEROL (test code = 2220) 50 MG/DL CALCULATED LDL CHOL (test co de = 2237) 125 MG/DL RISK RATIO LDL/HDL (test cod e = 2238) 2.51 RATIO Juan SantanaCOMPREHENSIVE METABOLIC [id number] 00:00:00* Test Item Value Reference Range Interpretation Comme nts GLUCOSE (test code = 2217) 86 MG/DL BUN (test code = 2208) 13 MG/DL CREATININE (test code = 2214) 1.1 MG/DL eGFR AMER. (test cod e = 27916) 69 ML/MIN/1.73 eGFR NON- AMER. (test code = 95171) 57 ML/MIN/1.73 CALCULATED BUN/CREAT (test code = [...] = 2219) 8 U/L Juan SantanaCBC W/AUTO [id number] 00:00:00* Test Item Value Reference Range Interpretation [...] (test code = 1015) 267 K/UL Juan [id number] 00:00:00* Test Item Value Reference Range Interpretation Comme nts TSH (test code = 2821) 3.6 UIU/ML Juan SantanaLIPID [id number] 00:00:00* Test Item Value Reference Range Interpretation Comme nts CHOLESTEROL (test code = 2210) 195 MG/DL TRIGLYCERIDES (test code = 2232) 98 MG/DL HDL CHOLESTEROL (test code = 2220) 50 MG/DL CALCULATED LDL CHOL (test co de = 2237) 125 MG/DL RISK RATIO LDL/HDL (test cod e = 2238) 2.51 RATIO Juan SantanaCOMPREHENSIVE METABOLIC [id number] 00:00:00* Test Item Value Reference Range Interpretation Comme nts GLUCOSE (test code = 2217) 86 MG/DL BUN (test code = 2208) 13 MG/DL CREATININE (test code = 2214) 1.1 MG/DL eGFR AMER. (test cod e = 36050) 69 ML/MIN/1.73 eGFR NON- AMER. (test code = 35194) 57 ML/MIN/1.73 CALCULATED BUN/CREAT (test code = [...] (test code = 2219) 8 U/L [facility] [id number] 00:00:00* Test Item Value Reference Range Interpretation [...] (test code = 1015) 267 K/UL Juan [id number] 00:00:00* Test Item Value Reference Range Interpretation Comme nts TSH (test code = 2821) 3.6 UIU/ML Juan SantanaLIPID [id number] 00:00:00* Test Item Value Reference Range Interpretation Comme nts CHOLESTEROL (test code = 2210) 195 MG/DL TRIGLYCERIDES (test code = 2232) 98 MG/DL HDL CHOLESTEROL (test code = 2220) 50 MG/DL CALCULATED LDL CHOL (test co de = 2237) 125 MG/DL RISK RATIO LDL/HDL (test cod e = 2238) 2.51 RATIO Juan SantanaCOMPREHENSIVE METABOLIC [id number] 00:00:00* Test Item Value Reference Range Interpretation Comme nts GLUCOSE (test code = 2217) 86 MG/DL BUN (test code = 2208) 13 MG/DL CREATININE (test code = 2214) 1.1 MG/DL eGFR AMER. (test cod e = 04681) 69 ML/MIN/1.73 eGFR NON- AMER. (test code = 64995) 57 ML/MIN/1.73 CALCULATED BUN/CREAT (test code = [...] = 2219) 8 U/L Juan SantanaCBC W/AUTO [id number] 00:00:00* Test Item Value Reference Range Interpretation [...] (test code = 1015) 267 K/UL Juan [id number] 00:00:00* Test Item Value Reference Range Interpretation Comme nts TSH (test code = 2821) 3.6 UIU/ML Juan SantanaLIPID [id number] 00:00:00* Test Item Value Reference Range Interpretation Comme nts CHOLESTEROL (test code = 2210) 195 MG/DL TRIGLYCERIDES (test code = 2232) 98 MG/DL HDL CHOLESTEROL (test code = 2220) 50 MG/DL CALCULATED LDL CHOL (test co de = 2237) 125 MG/DL RISK RATIO LDL/HDL (test cod e = 2238) 2.51 RATIO Juan SantanaCOMPREHENSIVE METABOLIC [id number] 00:00:00* Test Item Value Reference Range Interpretation Comme nts GLUCOSE (test code = 2217) 86 MG/DL BUN (test code = 2208) 13 MG/DL CREATININE (test code = 2214) 1.1 MG/DL eGFR AMER. (test cod e = 01406) 69 ML/MIN/1.73 eGFR NON- AMER. (test code = 61199) 57 ML/MIN/1.73 CALCULATED BUN/CREAT (test code = [...] = 2219) 8 U/L Juan SantanaCBC W/AUTO [id number] 00:00:00* Test Item Value Reference Range Interpretation [...] (test code = 1015) 267 K/UL Juan [id number] 00:00:00* Test Item Value Reference Range Interpretation Comme nts TSH (test code = 2821) 3.6 UIU/ML uJan SantanaLIPID [id number] 00:00:00* Test Item Value Reference Range Interpretation Comme nts CHOLESTEROL (test code = 2210) 195 MG/DL TRIGLYCERIDES (test code = 2232) 98 MG/DL HDL CHOLESTEROL (test code = 2220) 50 MG/DL CALCULATED LDL CHOL (test co de = 2237) 125 MG/DL RISK RATIO LDL/HDL (test cod e = 2238) 2.51 RATIO Juan SantanaCOMPREHENSIVE METABOLIC [id number] 00:00:00* Test Item Value Reference Range Interpretation Comme nts GLUCOSE (test code = 2217) 86 MG/DL BUN (test code = 2208) 13 MG/DL CREATININE (test code = 2214) 1.1 MG/DL eGFR AMER. (test cod e = 64213) 69 ML/MIN/1.73 eGFR NON- AMER. (test code = 87426) 57 ML/MIN/1.73 CALCULATED BUN/CREAT (test code = [...] 2219) 8 U/L Juan Richard MaxCBC W/AUTO [id number] 00:00:00* Test Item Value Reference Range Interpretation [...] code = 1015) 267 K/UL Juan Richard [id number] 00:00:00* Test Item Value Reference Range Interpretation Comme nts TSH (test code = 2821) 3.6 UIU/ML Juan SantanaLIPID [id number] 00:00:00* Test Item Value Reference Range Interpretation Comme nts CHOLESTEROL (test code = 2210) 195 MG/DL TRIGLYCERIDES (test code = 2232) 98 MG/DL HDL CHOLESTEROL (test code = 2220) 50 MG/DL CALCULATED LDL CHOL (test co de = 2237) 125 MG/DL RISK RATIO LDL/HDL (test cod e = 2238) 2.51 RATIO Juan SantanaCOMPREHENSIVE METABOLIC [id number] 00:00:00* Test Item Value Reference Range Interpretation Comme nts GLUCOSE (test code = 2217) 86 MG/DL BUN (test code = 2208) 13 MG/DL CREATININE (test code = 2214) 1.1 MG/DL eGFR AMER. (test cod e = 10176) 69 ML/MIN/1.73 eGFR NON- AMER. (test code = 03368) 57 ML/MIN/1.73 CALCULATED BUN/CREAT (test code = [...] 2219) 8 U/L Juan Richard MaxCBC W/AUTO [id number] 00:00:00* Test Item Value Reference Range Interpretation [...] (test code = 1015) 267 K/UL Juan [id number] 00:00:00* Test Item Value Reference Range Interpretation Comme nts TSH (test code = 2821) 3.6 UIU/ML Juan SantanaLIPID [id number] 00:00:00* Test Item Value Reference Range Interpretation Comme nts CHOLESTEROL (test code = 2210) 195 MG/DL TRIGLYCERIDES (test code = 2232) 98 MG/DL HDL CHOLESTEROL (test code = 2220) 50 MG/DL CALCULATED LDL CHOL (test co de = 2237) 125 MG/DL RISK RATIO LDL/HDL (test cod e = 2238) 2.51 RATIO Juan SantanaCOMPREHENSIVE METABOLIC [id number] 00:00:00* Test Item Value Reference Range Interpretation Comme nts GLUCOSE (test code = 2217) 86 MG/DL BUN (test code = 2208) 13 MG/DL CREATININE (test code = 2214) 1.1 MG/DL eGFR AMER. (test cod e = 95044) 69 ML/MIN/1.73 eGFR NON- AMER. (test code = 19899) 57 ML/MIN/1.73 CALCULATED BUN/CREAT (test code = [...] = 2219) 8 U/L Juan SantanaCBC W/AUTO [id number] 00:00:00* Test Item Value Reference Range Interpretation [...] (test code = 1015) 267 K/UL Juan [id number] 00:00:00* Test Item Value Reference Range Interpretation Comme nts TSH (test code = 2821) 3.6 UIU/ML Juan SantanaLIPID [id number] 00:00:00* Test Item Value Reference Range Interpretation Comme nts CHOLESTEROL (test code = 2210) 195 MG/DL TRIGLYCERIDES (test code = 2232) 98 MG/DL HDL CHOLESTEROL (test code = 2220) 50 MG/DL CALCULATED LDL CHOL (test co de = 2237) 125 MG/DL RISK RATIO LDL/HDL (test cod e = 2238) 2.51 RATIO Juan SantanaCOMPREHENSIVE METABOLIC [id number] 00:00:00* Test Item Value Reference Range Interpretation Comme nts GLUCOSE (test code = 2217) 86 MG/DL BUN (test code = 2208) 13 MG/DL CREATININE (test code = 2214) 1.1 MG/DL eGFR AMER. (test cod e = 50365) 69 ML/MIN/1.73 eGFR NON- AMER. (test code = 11344) 57 ML/MIN/1.73 CALCULATED BUN/CREAT (test code = [...] (test code = 2219) 8 U/L [facility] [id number] 00:00:00* Test Item Value Reference Range Interpretation [...] COUNT (test code = 1015) 267 K/UL [id number] 00:00:00* Test Item Value Reference Range Interpretation Comme nts TSH (test code = 2821) 3.6 UIU/ML LIPID [id number] 00:00:00* Test Item Value Reference Range Interpretation Comme nts CHOLESTEROL (test code = 2210) 195 MG/DL TRIGLYCERIDES (test code = 2232) 98 MG/DL HDL CHOLESTEROL (test code = 2220) 50 MG/DL CALCULATED LDL CHOL (test co de = 2237) 125 MG/DL RISK RATIO LDL/HDL (test cod e = 2238) 2.51 RATIO COMPREHENSIVE METABOLIC [id number] 00:00:00* Test Item Value Reference Range Interpretation Comme nts GLUCOSE (test code = 2217) 86 MG/DL BUN (test code = 2208) 13 MG/DL CREATININE (test code = 2214) 1.1 MG/DL eGFR AMER. (test cod e = ) 69 ML/MIN/1.73 eGFR NON- AMER. (test code = 85127) 57 ML/MIN/1.73 CALCULATED BUN/CREAT (test code = [...] code = 2219) 8 U/L CBC W/AUTO [id number] 00:00:00* Test Item Value Reference Range Interpretation [...] COUNT (test code = 1015) 267 K/UL [id number] 00:00:00* Test Item Value Reference Range Interpretation Comme nts TSH (test code = 2821) 3.6 UIU/ML LIPID [id number] 00:00:00* Test Item Value Reference Range Interpretation Comme nts CHOLESTEROL (test code = 2210) 195 MG/DL TRIGLYCERIDES (test code = 2232) 98 MG/DL HDL CHOLESTEROL (test code = 2220) 50 MG/DL CALCULATED LDL CHOL (test co de = 2237) 125 MG/DL RISK RATIO LDL/HDL (test cod e = 2238) 2.51 RATIO COMPREHENSIVE METABOLIC [id number] 00:00:00* Test Item Value Reference Range Interpretation Comme nts GLUCOSE (test code = 2217) 86 MG/DL BUN (test code = 2208) 13 MG/DL CREATININE (test code = 2214) 1.1 MG/DL eGFR AMER. (test cod e = 50764) 69 ML/MIN/1.73 eGFR NON- AMER. (test code = 26113) 57 ML/MIN/1.73 CALCULATED BUN/CREAT (test code = [...] (ALT) (test code = 2219) 8 U/L History and Physical Notes Date/Time Note Provider [...] 100 mL IVPB-MB+ Tranexamic Acid Indication: Hemorrhage: PATHOLOGIST ASSISTANT acetaminophen (Tylenol) tablet 1,000 mg famotidine (PF) [...] 100 mL IVPB-MB+ Tranexamic Acid Indication: Hemorrhage: PATHOLOGIST ASSISTANT sodium chloride 0.9 % bolus 1,000 mL [...] LABOR ANTICIPATING VAGINAL Complications: Augusto Moreno MD Claudio Roberson 2024-05-01 16:07:30 Obstetrics H&P LMP: No LMP recorded. Patient is . RAMYA: Estimated Date of Delivery: 05/22/24 EGA: 37w0d CC: ctx LOF HPI: Lisbet Bo is a 43 y.o. at 37w0d with [...] 2 Term 2006 Vag-Spont N SEAN 1 2000 28w0d Vag-Spont EPI SEAN PMH: Past Medical [...] edema SSE exam performed by nurse. SVE: 50 FHTs: 130bpm, mod dayan, +accels no decels [place]: q 5-9 mins BSUS: cephalic, CATALINA 3cm A/P: Lisbet Bo is a 43 y.o. at 37w0d with [...] Department of Obstetrics, Gynecology & Reproductive Sciences [facility] [place] Obstetrics and Gynecology Physician Claudio Roberson Procedure Notes Date/Time Note Provider Source 2024-05-01 23:26:34 OB Vaginal Delivery Note 05/01/2024 Lisbet Bo 43 y.o. Review the Delivery Report for details. Gestational Age: 37w0d /Para: Labor Complications: None Estimated Blood Loss: Delivery Blood Loss Intrapartum & : 05/01/24 1145 - 05/01/242326 Delivery Admission: 05/01/24 1145 - 05/01/242326 Intrapartum & Delivery Admission None Quantitative Blood Loss: Delivery Type: Vaginal, Spontaneous ROM to Delivery Time: 11h 32m Number of newborns delivered: one Caridad Gutierrez [[id number]] Delivery Providers Delivering clinician: Provider Role Delivery Assist Delivery Nurse Nursery Nurse RN Assist Delivery Details: Lisbet Bo, a 43 y.o. female delivered one viable [...] good and stable condition. Augusto Moreno MD Claudio Roberson Notes Date/Time Note Provider Source [facility]2025-05-22 00:00:00 [facility]2025-05-05 00:00:00 [facility]2025-04-08 00:00:00 Juan Santana [facility]2025-02-14 00:00:00 [facility]2025-01-16 00:00:00 [facility]2024-12-17 00:00:00 [facility]2024-10-27 15:26:39* Claudio Roberson 2024-05-03 15:26:39 Claudio [id number] 15:26:39* Drug Abuse Screening Test (DAST-10) Question Answer Date of Assessment Author DAST-10 Score 0 05/01/2024 7:15 PM CDT Jennifer Hernandes RN * Audit-C Score Answer Date of Assessment Author 0 05/01/2024 7:16 PM CDT Jennifer Francois RN * Intimate Partner Violence Question Answer Date of Assessment Author Within the last year, have y ou been humiliated or emotionally abused in other ways by your partner or ex-partner? No 05/01/2024 3:47 PM CDT Maame Onofre RN Within the last year, have y ou been afraid of your partner or ex-partner? No 05/01/2024 3:47 PM CDT Maame Onofre RN Within the last year, have y ou been raped or forced to have any kind of sexual activity by your partner or ex-partner? No 05/01/2024 3:47 PM CDT Maame Onofre RN Within the last year, have y ou been kicked, hit, slapped, or otherwise physically hurt by your partner or ex-partner? No 05/01/2024 3:47 PM CDT Maame Onofre RN * Claudio [id number] 15:26:39* Augusto Moreno MD - 05/03/2024 1:33 PM CDT Obstetrical Discharge Summary Discharge Date and time: No discharge date for patient encounter. Early Discharge: EDC: Estimated Date of Delivery: 05/22/24 Gestational Age:37w0d Delivered By: Augusto Moreno MD Delivery Type: Vaginal, Spontaneous Anesthesia: Placenta: 05/01/2024 11:21 PM Disposition: lab pathology discarded Information: Nuha Gutierrez [[id number]] Apgars Living status: Living Component Scores: 1 min.: 5 min.: 10 min.: 15 min.: 20 min.: Skin color: 1 2 Heart rate: 2 2 Reflex irritability: 2 2 Muscle tone: 2 2 Respiratory effort: 2 2 Total: 9 10 Feeding method: Perineum: Laceration: Episiotomy: , Antepartum complications: IUGR Intrapartum complications: None Other Procedures : None Pertinent Labs:Labs in chart were reviewed. Medications:Rh Immune globulin given: no Rubella vaccine given: no Discharge Medications:Current Discharge Medication List Plan: OB Treatment and Care DISCHARGE HOME Instructions: See the After Visit Summary for the patient. Address and phone number verified and same.Follow-up appointment with DR MORENO in 6 week. [id number] 15:26:39* Augusto Moreno MD - 05/02/2024 1:31 PM CDT OB Progress Note Subjective Lisbet Bo is a 43 y.o., , with an Estimated Date of Delivery of 05/22/24, who delivered at 37w0d gestation and is now day 1. Assessment & Plan Reason for Admission : Assessment Principal Problem: Delayed delivery after SROM (spontaneous rupture of membranes) Active Problems: Diabetes mellitus, type 2 (HCC) Hypothyroidism Gastroesophageal reflux disease HTN (hypertension) affected by growth restriction Plan Options for delivery have been discussed with the patient and she elects a vaginal delivery. Labor has been discussed in detail. The risks, benefits, complications, alternatives, expected outcomes, potential problems during recuperation and recovery, and the risks of not performing the procedure were discussed with the patient. The patient stated understanding that the risks of delivery include, but are not limited to: ; reaction to medications; injury to bowel, bladder, ureters, uterus, cervix, vagina, and other pelvic and abdominal structures, infection; blood loss and possible need for transfusion; and potential need for surgery, including hysterectomy. The risks of injury to the during delivery were also discussed. All questions were answered. There was concurrence with the planned procedure, and the patient wanted to proceed. Admit to inpatient status. I anticipate that this patient will require a stay exceeding at least 2 midnights for delivery and care. Active management of labor. Management of complications, as indicated. Subjective History of Present Lisbet Bo is a 43 y.o. gravid, female. No LMP recorded. Patient has an Estimated Date of Delivery of 05/22/2024, by Patient Reported, who is now at 37w0d gestation. The patient's blood type is O Positive. Complications: No complications identified. The patient denies emotional concerns today. The patient's pain is well controlled with current medications, is ambulating well, is tolerating a Adult Diet Regular, is passing flatus, and has had a BM. Patient reports no breast or nursing problems ObjectiveAllergies: Patient has no known allergies. Recent Vital Signs:148/89 | 81 | 36.8 ?C (98.3 ?F) | 16 | 165.1 cm (5' 5") | 83.3 kg (183 lb 8.5 oz) | Body mass index is 30.54 kg/m?. BP & Temp Min/Max Last 24 Hours: BP Min: 128/70 Min taken time: 05/01/24 2330 Max: 170/100 Max taken time: 05/02/24 0415 | Temp Av.8 ?C (98.3 ?F) Min: 36.6 ?C (97.8 ?F) Min taken time: 05/01/24 1528 Max: 36.9 ?C (98.5 ?F) Max taken time: 05/02/24 0600 Intake/Output: Intake/Output Summary (Last 24 hours) at 05/02/2024 1331 Last data filed at 05/02/2024 1000 Gross per 24 hour Intake 1300 ml Output 1074 ml Net 226 ml Physical Exam: General: Examination reveals a well developed, well nourished, female, in no acute distress. She is alert and cooperative. Lab Data:Labs in chart were reviewed. Augusto Moreno MD CDT * Brant Cummings RN - 05/02/2024 12:33 AM CDT [facility]Ficz[facility]x3347-32-09 15:26:39Scheduled Orders Health Maintenance Due Date Last Done Comments Diabetes: Hemoglobin A1C 1980 Lipid Panel 1980 Pneumococcal Vaccine: Pediatrics (0 to 5 Years) and At-Risk Patients (6 to 64 Years) (1 of 2 - PCV) 1986 Diabetes: Foot Exam 1990 Diabetes: Retinopathy Screening 1990 Varicella Vaccines (1 of 2 - 13+ 2-dose series) 1993 Diabetes: Urine Protein Screening 10/23/1999 Hepatitis B Vaccines (1 of 3 - 19+ 3-dose series) 10/23/1999 Mammogram 2020 DTaP/Tdap/Td Vaccines (3 - T d or Tdap) 06/26/2023 06/26/2013, 07/08/1998 Pap Smear 02/29/2024 02/28/2021 Influenza Vaccine (#1) 2024 0, 05/27/2019, 03/26/2013 Cervical Cancer Screening 02/28/2026 HPV/Cotest 02/28/2026 02/28/2021 HIB Vaccines Aged Out No longer eligi ble based on patient's age to complete this topic HPV Vaccines Aged Out No longer eligi ble based on patient's age to complete this topic Hepatitis A Vaccines Aged Out No long er eligible based on patient's age to complete this topic IPV Vaccines Aged Out No longer eligi ble based on patient's age to complete this topic Meningococcal Vaccine Aged Out No dilip brayden eligible based on patient's age to complete this topic Rotavirus Vaccines Aged Out No longer eligible based on patient's age to complete this topic [facility]Pafsatr2553-50-43 15:26:39 Diagnosis Delayed delivery after SROM (spontaneous rupture of membranes) - Primary Diabetes mellitus, type 2 (HCC) Type II or unspecified type diabetes mellitus without mention of complication, not stated as uncontrolled Hypothyroidism Unspecified hypothyroidism Gastroesophageal reflux disease Esophageal reflux HTN (hypertension) Unspecified essential hypertension affected by growth restriction [facility]Jjanekg0476-52-81 15:26:39 [facility] HospitalRwqzlsa1559-02-03 13:34:40 Images from the original note were not included. [id number] Ibuprofeno Nombres comercial(es): Addaprin?, Advil?, Cedaprin?, I-Prin?, Midol?, Motrin?, Motrin? IB, NeoProfen?, Profen IB?, Proprinal?, Ultraprin?, Advil? PM (mercy combinaci? de productos que contiene difenhidramina e ibuprofeno), Combunox? (mercy combinaci? de productos que contiene ibuprofeno, oxicodona), Duexis? (mercy combinaci? de productos que contiene famotidina, ibuprofeno), Ibudone? (mercy combinaci? de productos que contiene hidrocodona, ibuprofeno), Reprexain? (mercy combinaci? de productos que contiene hidrocodona, ibuprofeno), Vicoprofen? (mercy combinaci? de productos que contiene hidrocodona, ibuprofeno); tambi? disponibles gen?icamente ADVERTENCIA: Las personas que socorro medicamentos antiinflamatorios no esteroides (ADIS) (distintos de la aspirina) mercy ibuprofeno, pueden tener un riesgo m? alto de sufrir un ataque card?co o un derrame cerebral que las personas que no socorro estos medicamentos. Estos eventos pueden ocurrir sin previo aviso, y pueden causar la muerte. Estos problemas pueden aparecer en cualquier momento del tratamiento, parish el riesgo puede ser mayor en las personas que socorro ADIS damon mucho tiempo o en dosis m? altas. No use un ADIS mercy ibuprofeno si tuvo un ataque card?co recientemente, a menos que se lo indique ortiz m?ico. Informe a ortiz m?ico si usted o alguien de ortiz rustam tiene o alguna vez tuvo herrera enfermedad card?ca, un ataque card?co o un accidente cerebrovascular , si fuma y si tiene o alguna vez tuvo niveles altos de colesterol, presi? arterial aimee o diabetes. Busque ayuda m?ica de emergencia en seguida si experimenta cualquiera de los s?eleni siguientes: dolor en el pecho, dificultad para respirar, debilidad en herrera parte o lado del cuerpo o dificultad para hablar. Si se someter?a un injerto de derivaci? de la arteria coronaria (CABG, coronary artery bypass graft; un tipo de cirug? del coraz?), no debe wendy ibuprofeno rhianna antes o despu? de la cirug?. Los ADIS mercy el ibuprofeno pueden provocar ?lceras, hemorragias o perforaciones en el es?ago (conducto entre la boca y el est?ago), el est?ago o el intestino. Estos problemas pueden presentarse en cualquier momento damon el tratamiento, ocurrir sin s?eleni de aviso, y pueden provocar la muerte. El riesgo puede ser mayor para las personas que socorro ADIS damon mucho tiempo, tienen herrera edad avanzada, ortiz isatu es precaria, fuman o beben grandes cantidades de alcohol mientras socorro ibuprofeno. Informe a ortiz m?ico si rogerio alguno de los siguientes medicamentos: anticoagulantes ("diluyentes de la jesusita"); aspirina; otros ADIS mercy naproxeno (Aleve, Naprosyn); esteroides orales mercy la dexametasona metilprednisolona (Medrol) y prednisona (Elham); inhibidores selectivos de la recaptaci? de serotonina (ISRS) mercy citalopram (Celexa), fluoxetina (Prozac, Sarafem, Selfemra, en Symbyax), fluvoxamina (Luvox), paroxetina (Brisdelle, Paxil, Pexeva) y sertralina (Zoloft); o inhibidores de la recaptaci? de la serotonina norepinefrina (IRSN) mercy desvenlafaxina (Khedezla, Pristiq), duloxetina (Cymbalta) y venlafaxina (Effexor XR). Tambi? informe a ortiz m?ico si tiene o alguna vez tuvo ?lceras, hemorragia en el est?ago o intestinos, u otros trastornos de sangrado. Si experimenta alguno de los siguientes s?eleni, deje de wendy ibuprofeno y llame a ortiz m?ico: dolor de est?ago, acidez estomacal, v?itos con jesusita o con aspecto de caf?molido, jesusita en las heces o heces negras y alquitranadas. Asista a todas las citas con ortiz m?ico y a las de laboratorio. Ortiz m?ico supervisar?atentamente corrine s?eleni y probablemente ordenar?algunas pruebas para verificar la respuesta de ortiz cuerpo al ibuprofeno. Aseg?rese de informar a ortiz m?ico c?o se siente, de manera que pueda recetarle la cantidad correcta de medicamento para tratar ortiz afecci? con el bert riesgo de efectos secundarios graves. Ortiz m?ico o farmac?ronn le irma?la hoja de informaci? del fabricante para el paciente (Gu? del medicamento) cuando inicie el tratamiento con ibuprofeno recetado, y cada vez que vuelva a surtir ortiz receta m?ica. Tahir atentamente la informaci?, y si tiene alguna izabela, preg?ntele a ortiz m?ico o farmac?ronn. Tambi? puede visitar el sitio web de la Administraci? de Alimentos y Medicamentos (FDA, Food and Drug Administration) (https://www.fda.gov/Drugs/DrugSafety/pot751298.htm), o el sitio web del fabricante para obtener la Gu? del medicamento. ?PARA CU?ES condiciones o enfermedades se prescribe aliza medicamento? El ibuprofeno recetado se usa para aliviar el dolor, la sensibilidad, la inflamaci? y la rigidez ocasionados por la osteoartritis (artritis causada por el desgaste del revestimiento de las articulaciones), y la artritis reumatoide (artritis causada por la inflamaci? del revestimiento de las articulaciones). Tambi? se usa para aliviar el dolor de leve o moderado, incluido el dolor menstrual (dolor que se produce antes o damon el periodo menstrual). El ibuprofeno de venta arminda se usa para reducir la fiebre y aliviar natalia menores, cefaleas, dolor muscular, artritis, periodos menstruales, resfriado com?n, dolor de muelas y dolor de espalda. El ibuprofeno pertenece a herrera clase de medicamentos llamados ADIS. Ortiz acci? consiste en detener la producci? del cuerpo de herrera sustancia que causa dolor, fiebre e inflamaci?. ?C?O se debe usar aliza medicamento? La presentaci? de ibuprofeno de venta con receta m?ica es en tabletas y suspensi? (l?uido) para wendy por v? oral. Por lo general, se rogerio de armen o cuatro veces al d? para la artritis, o cada 4 o 6 horas seg?n sea necesario para aliviar el dolor. La presentaci? del ibuprofeno de venta arminda es en tableta, tableta masticable, c?sula, c?sula de gel, suspensi? (l?uido) y gotas (l?uido concentrado). En general, los adultos y ni?s mayores de 12 a?s pueden wendy el ibuprofeno de venta arminda cada 4 a 6 horas, seg?n sea necesario para aliviar el dolor o la fiebre, parish no deben wendy m? de 6 dosis en 24 horas. Por lo general, a los ni?s y los beb? se les puede irma ibuprofeno de venta arminda cada 6 a 8, seg?n sea necesario para aliviar el dolor o la fiebre, parish no m? de 4 dosis cada 24 horas. Puede wendy el ibuprofeno con alimentos o con leche para prevenir el malestar estomacal. Si est?tomando ibuprofeno con regularidad, debe hacerlo a la(s) misma(s) hora(s) todos los d?s. Siga atentamente las instrucciones que se encuentran en la etiqueta del paquete o en la receta m?ica, y pida a ortiz m?ico o farmac?ronn que le explique cualquier parte que no comprenda. [place] el ibuprofeno exactamente mercy se lo indicaron. No tome herrera cantidad mayor ni bert del medicamento, ni lo tome con m? frecuencia de lo que se indica en la etiqueta del empaque o lo que indica la receta de ortiz m?ico. El ibuprofeno se presenta solo y en combinaci? con otros medicamentos. Algunos de esos productos combinados se venden exclusivamente con receta m?ica, parish muchos otros son de venta arminda y se usan para tratar la tos, los s?eleni del resfriado y otras afecciones. Si ortiz m?ico le recet?alg?n medicamento que contiene ibuprofeno, tenga cuidado de no wendy monet?n otro medicamento de venta arminda que tambi? contenga ibuprofeno. Trague la tableta entera, no la mastique ni triture. Si est?en busca de un producto para tratar la tos o los s?eleni del resfriado, p?may a ortiz m?ico o a ortiz farmac?ronn que le recomiende el producto indicado para usted. Tahir detenidamente las etiquetas de los medicamentos de venta arminda antes de usar dos o m? productos al mismo tiempo. Estos productos pueden contener los mismos ingredientes activos, de modo que tomarlos juntos podr? causarle herrera sobredosis. [place] es particularmente importante cuando le da medicamentos contra la tos y el resfriado a un ni?. Los productos combinados para la tos y el resfriado de venta arminda, entre ellos los que contienen ibuprofeno, pueden provocarles efectos secundarios graves e incluso mortales a los ni?s de corta edad. No d?estos productos a ni?s menores de 4 a?s. Si les da estos productos a ni?s de 4 a 11 a?s, h?benito con precauci? y siga al pie de la letra las indicaciones del empaque. Si le da ibuprofeno o un producto combinado que contenga ibuprofeno a un ni?, tahir atentamente la etiqueta del empaque para asegurarse de que es el producto adecuado para un ni? de becki edad. No les d?a los ni?s productos de ibuprofeno que est? indicados para adultos. Antes de darle un producto con ibuprofeno a un ni?, revise la etiqueta del empaque para saber qu?cantidad de medicamento debe darle. D?la dosis que coincida con la edad del ni? en la tabla. Preg?ntele al pediatra si tiene dudas sobre cu?to medicamento darle al ni?. Agite pedro la suspensi? y las gotas antes de cada uso para mezclar uniformemente el medicamento. Use la taza medidora que viene con el producto para medir cada dosis de la suspensi?, y use el dosificador suministrado para medir cada dosis de las gotas. Deje de wendy el ibuprofeno de venta arminda y llame a ortiz m?ico si los s?eleni se agravan, si presenta s?eleni nuevos o inesperados, si la parte de ortiz cuerpo que le produc? dolor se torna enrojecida o se inflama, si el dolor dura m? de 10 d?s o si la fiebre persiste por m? de 3 d?s. Deje de darle el ibuprofeno de venta arminda a ortiz hijo, y llame a ortiz pediatra si no empieza a mejorar damon las primeras 24 horas de tratamiento. Asimismo, deje de darle el ibuprofeno de venta arminda a ortiz hijo y llame a ortiz pediatra si presenta nuevos s?eleni, mercy enrojecimiento o hinchaz? de la parte del cuerpo que le produce dolor, o si el dolor o la fiebre se agravan o persisten por m? de 3 d?s. No le d?ibuprofeno de venta arminda a un ni? que tenga dolor de garganta intenso o que no desaparece, o que venga acompa?do de fiebre, dolor de violeta, n?seas o v?itos. Llame de inmediato al pediatra, ya que esos s?eleni pueden ser se?les de herrera afecci? m? grave. ?Qu?OTRO USO se le da a aliza medicamento? A veces el ibuprofeno se usa tambi? para tratar la espondilitis anquilosante (artritis que afecta principalmente la [place] vertebral), la artritis gotosa (dolor articular debido a la acumulaci? de ciertas sustancias en las articulaciones) y la artritis psori?ica (artritis que ocurre junto con herrera enfermedad cr?ica de la piel que provoca descamaci? e inflamaci?). Hable con ortiz m?ico acerca de los riesgos de usar aliza f?fabian para tratar ortiz afecci?. A veces se receta aliza medicamento para otros usos; p?may m? informaci? a ortiz m?ico o a ortiz farmac?ronn. ?Cu?es son las PRECAUCIONES ESPECIALES que matteo seguir? Antes de wendy ibuprofeno, ? informe a ortiz m?ico y a ortiz farmac?ronn si es al?gico al ibuprofeno, a la aspirina o a otros ADIS mercy el ketoprofeno y el naproxeno (Aleve, Naprosyn), a cualquier otro medicamento o a cualquiera de los ingredientes inactivos del tipo de ibuprofeno que planea wendy. Pregunte a ortiz farmac?ronn o consulte la etiqueta del empaque para obtener herrera lista de los ingredientes inactivos. ? informe a ortiz m?ico y farmac?ronn qu?medicamentos con y sin receta, vitaminas, suplementos nutricionales y productos a base de hierbas est?tomando o piensa wendy. Es posible que ortiz m?ico deba cambiar las dosis de ortiz medicamento, o monitorearlo de cerca para saber si experimenta efectos secundarios. ? no tome ibuprofeno de venta arminda con monet?n otro analg?ico, a menos que ortiz m?ico lo autorice. ? informe a ortiz m?ico si tiene o floyd tenido cualquiera de las enfermedades que se mencionan en la secci? ADVERTENCIA IMPORTANTE, o si tiene o tuvo asma, sobre todo si tambi? sufre con frecuencia de congesti? o secreci? nasal, o p?ipos nasales (inflamaci? del interior de la nariz); enfermedad card?ca, hinchaz? de las renny, los brazos, los pies, los tobillos o las pantorrillas; lupus (herrera afecci? en el que el organismo ataca muchos de corrine propios tejidos y ?ganos, incluyendo con frecuencia la piel, las articulaciones, la jesusita y los ri?kay), o alguna enfermedad del h?ado o de los ri?kay. Si le est?dando ibuprofeno a un ni?, d?may al pediatra si el ni? no floyd bebido l?uidos o floyd perdido martha agua debido a la diarrea o al v?kristie recurrente. ? informe a ortiz m?ico si est?embarazada, planea quedar embarazada o est? amamantando. El ibuprofeno puede da?r al feto y causar problemas con el parto si se rogerio alrededor de las 20 semanas o m? tarde damon el embarazo. No tome ibuprofeno alrededor de la semana 20 de embarazo ni despu?, a menos que ortiz m?ico se lo indique. Llame a ortiz m?ico si queda embarazada mientras rogerio ibuprofeno. ? si se someter?a herrera cirug?, incluida herrera cirug? dental, informe a rotiz m?ico o dentista que actualmente rogerio ibuprofeno. ? hable con ortiz m?ico sobre los riesgos y beneficios de wendy ibuprofeno si tiene 75 a?s o m?. No tome aliza medicamento por un per?do de tiempo m? prolongado o en herrera dosis m? aimee que la recomendada en la etiqueta del producto o por ortiz m?ico. ? si tiene fenilcetonuria (PKU, [en ingl?]; herrera afecci? hereditaria en la que es necesario seguir herrera dieta especial para evitar da?s en el cerebro que pueden causar discapacidad intelectual grave), tahir atentamente la etiqueta del empaque antes de wendy ibuprofeno de venta arminda. Algunos tipos de ibuprofeno de venta arminda est? endulzados con aspartame, herrera sustancia que produce fenilalanina. ?Qu?DIETA ESPECIAL matteo seguir mientras juana aliza medicamento? A menos que ortiz m?ico le indique lo contrario, contin?e con ortiz dieta normal. ?Qu?tengo que hacer SI ME OLVIDO de wendy herrera dosis? Si est?tomando ibuprofeno con regularidad y olvida herrera dosis, t?adina en cuanto se acuerde. Sin embargo, si se acerca la hora de ortiz pr?javier dosis, omita la dosis que olvid? y siga con ortiz horario normal de medicaci?. No duplique la dosis para compensar la que omiti? ?Cu?es son los EFECTOS SECUNDARIOS que podr? provocar aliza medicamento? El ibuprofeno puede provocar efectos secundarios. Informe a ortiz m?ico si cualquiera de estos s?eleni es grave o no desaparece: ? estre?miento ? gases o distensi? abdominal, ? mareos ? nerviosismo ? zumbido en los o?os ? Algunos efectos secundarios pueden ser graves. Si experimenta cualquiera de los siguientes s?eleni, o de los que se mencionan en la secci? ADVERTENCIA IMPORTANTE, llame a ortiz m?ico inmediatamente: No tome m? ibuprofeno hasta que hable con ortiz m?ico: ? aumento de peso sin explicaci? ? falta de aliento o dificultad para respirar ? inflamaci? de las abdomen, pies, tobillos o pantorrillas ? diarrea ? fiebre, erupci?, ampollas o descamaci? de la piel ? picaz? ? urticaria ? inflamaci? del ojos, mark, garganta, brazos o renny ? dificultad para respirar o tragar ? ronquera ? cansancio excesivo ? dolor en la parte superior derecha del est?ago ? n?seas ? p?dida de apetito ? ictericia en la piel o los ojos ? s?eleni parecidos a los de la gripe ? piel p?bhavesh ? ritmo card?co acelerado ? orina turbia, decolorada o con jesusita ? dolor de espalda ? micci? dif?il o dolorosa ? visi? borrosa, cambios en la visi? de los colores u otros problemas de visi? ? dolor de violeta, rigidez de nuca, fiebre El ibuprofeno puede ocasionar otros efectos secundarios. Llame a ortiz m?ico si experimenta alg?n problema inusual mientras rogerio aliza medicamento. Si desarrolla un efecto secundario grave, usted o ortiz doctor puede enviar un informe al programa de divulgaci? de efectos adversos 'MedWatch' de la Administraci? de Alimentos y Medicamentos (FDA, por ortiz sigla en ingl?) en la p?darryl de Internet (https://www.fda.gov/Safety/MedWatch) o por tel?judith al . ?C?o matteo ALMACENAR o DISPONER de aliza medicamento? Mantenga aliza medicamento en ortiz empaque original, pedro cerrado y fuera del alcance de los ni?s. Gu?delo a temperatura ambiente y lejos del calor excesivo y la humedad (no en el ba?). Es importante que mantenga todos los medicamentos fuera de la vista y el alcance de los ni?s, debido a que muchos envases (tales mercy los pastilleros de uso semanal, y aquellos que contienen gotas oft?micas, cremas, parches e inhaladores) no son a prueba de ni?s avani?s, quienes pueden abrirlos f?ilmente. Con el fin de protegerlos de herrera intoxicaci?, siempre use tapaderas de seguridad e inmediatamente coloque los medicamentos en un lugar seguro, rod que se encuentre arriba y lejos de ortiz vista y alcance. [email or web address] Los medicamentos que ya no son necesarios se deben desechar de herrera manera apropiada para asegurarse de que las mascotas, los ni?s y otras personas no puedan consumirlos. Sin embargo, no debe desechar estos medicamentos por el inodoro. En ortiz lugar, la mejor manera de deshacerse de corrine medicamentos es a radha? de un programa de devoluci? de medicamentos. Hable con ortiz farmac?ronn o p?gase en contacto con ortiz departamento de basura/reciclaje local para conocer acerca de los programas de devoluci? de medicamentos de ortiz comunidad. Consulte el sitio web de la Administraci? de Medicamentos y Alimentos (FDA), (https://goo.gl/xRXbPn) para obtener m? informaci? de c?o desechar de forma calvert los medicamentos, si no tiene acceso al programa de devoluci? de medicamentos. ?Qu?matteo hacer en leonard de herrera SOBREDOSIS? En [place] de sobredosis, llame a la l?ea de ayuda de control de envenenamiento al . La informaci? tambi? est?disponible en l?ea en https://www.poisonhelp.org/help. Si la v?j carlos se floyd derrumbado, floyd tenido herrera convulsi?, tiene dificultad para respirar, o no puede despertarse, llame inmediamente a los servicios de emergencia al 911. Los s?eleni de sobredosis pueden incluir: ? cansancio extremo ? somnolencia ? dolor de est?ago ? n?seas ? v?itos ? dificultad para respirar o respiraci? lenta ? mareos ? movimientos oculares r?idos que no se pueden controlar ? coloraci? kelly alrededor de los labios, la boca y la nariz ?Qu?OTRA INFORMACI? de importancia deber? saber? Si est?tomando ibuprofeno recetado, no deje que ninguna otra persona tome ortiz medicamento. Preg?ntele a ortiz farmac?ronn cualquier [place] que tenga sobre c?o volver a surtir ortiz receta m?ica. Es importante que Ud. mantenga herrera lista escrita de todas las medicinas que Ud. est?tomando, incluyendo las que recibi?con receta m?ica y las que Ud. compr? sin receta, incluyendo vitaminas y suplementos de dieta. Ud. debe tener la lista cada vez que visita ortiz m?ico o cuando es admitido a un hospital. Tambi? es herrera informaci? importante en casos de emergencia. Aliza informe sobre medicamentos es solo para ortiz informaci?, y no se considera mercy un consejo para el paciente. Debido a la naturaleza de informaci? sobre drogas, por favor consulte ortiz medico o farmac?ronn sobre el uso cl?ico espec?ico. [employer] afirma que la informaci? proporcionada a continuaci? fue formulada con razonable est?irma de asistencia, y en conformidad con el eklutna profesional. [employer]. no provee representaciones o garant?s, expresas o implicadas, incluyendo, parish no limitado a, cualquiera garant? de comercializaci? y/o apropiado para herrera funci? particular, con respecto a isacc informaci? y niega espec?icamente tales garant?s. Se avisa a los usuarios que las decisiones con respecto a terapia de drogas son decisiones m?icas complejas requiriendo decisiones independientes e informadas de un profesional de isatu y que la informaci? se da para prop?itos de informaci? solamente. La entera monograf? de herrera droga debe ser revisada considerando un comprensivo entendimiento de las acciones, usos, y efectos secundarios de la droga. [employer]. no endosa o recomienda el uso de ninguna medicina. La informaci? no es un sustituto de asistencia m?ica. AHFS? Patient Medication Information?. ? Derechos reservados, 2023. Documento actualizado 2022, [place] [employer]? [address], [address], [place], [place] [address] [place]. Todos los derechos reservados. La duplicaci? de aliza documento para ortiz uso comercial, deber?ser autorizada por [employer]. AHFS? Patient Medication Information?. ? Copyright, 2023 Claudio [id number] 13:34:35 Images from the original note were not included. [id number] Acetaminofeno Nombres comercial(es): Actamin?, Feverall?, Panadol?, Tempra Quicklets?, Tylenol?, Dayquil? (mercy combinaci? de productos que contiene acetaminofeno, dextrometorfano y pseudoefedrina), NyQuil Cold/Flu Relief? (mercy combinaci? de productos que contiene acetaminofeno, dextrometorfano y doxilamina), Percocet? (mercy combinaci? de productos que contiene acetaminofeno y oxicodona) APAP, X-[id number]-znir-aminofenol, Paracetamol ADVERTENCIA: Wendy demasiado acetaminofeno puede provocar da?s en el h?ado, a veces lo suficientemente graves mercy para requerir un trasplante de h?ado o causar la muerte. Usted podr? wendy demasiado acetaminofeno accidentalmente si no sigue atentamente las instrucciones en la receta o la etiqueta del medicamento, o si rogerio m? de un producto que contenga acetaminofeno. Para wendy acetaminofeno de forma calvert, no debe ? wendy m? de un producto que contenga acetaminofeno al mismo tiempo. Tahir las etiquetas de todos los medicamentos con y sin receta que est?tomando para saber si contienen acetaminofeno. Tenga en cuenta que en la etiqueta pueden aparecer abreviaturas mercy APAP, AC, Acetaminophen, Acetaminoph, Acetaminop, Acetamin o Acetam en lugar de la palabra acetaminofeno. Preg?ntele a ortiz m?ico o farmac?ronn si no sabe si un medicamento que est?tomando contiene acetaminofeno. ? tome el acetaminofeno exactamente mercy se indica en la receta o en la etiqueta del empaque. No tome m? acetaminofeno ni lo tome con m? frecuencia de la indicada, aunque siga teniendo fiebre o dolor. Pregunte a ortiz m?ico o farmac?ronn si no sabe qu?cantidad de medicamento debe wendy o con qu? frecuencia. Llame a ortiz m?ico si sigue teniendo dolor o fiebre despu? de wendy la medicaci? seg?n las indicaciones. ? tenga en cuenta que no debe wendy m? de 4000 mg de acetaminofeno al d?. Si necesita wendy m? de un producto que contenga acetaminofeno, es posible que sea dif?il para usted calcular la cantidad total de acetaminofeno que est? tomando. Pida ayuda a ortiz m?ico o farmac?ronn. ? informe a ortiz m?ico si tiene o alguna vez tuvo alguna enfermedad hep?ica. ? no tome acetaminofeno si pete armen o m? bebidas alcoh?icas todos los d?s. Hable con ortiz m?ico sobre el consumo seguro de bebidas alcoh?icas mientras rogerio acetaminofeno. ? deje de wendy ortiz medicaci? y llame a ortiz m?ico inmediatamente si ernesto que floyd tomado demasiado acetaminofeno, aunque se sienta pedro. Hable con ortiz farmac?ronn o m?ico si tiene dudas sobre el uso seguro del acetaminofeno o de los productos que lo contienen. ?PARA CU?ES condiciones o enfermedades se prescribe aliza medicamento? El acetaminofeno se usa para aliviar el dolor leve o moderado de las cefaleas, natalia musculares, per?dos menstruales, resfriados, y los natalia de garganta, muelas, espalda, as?mercy de las reacciones a las vacunas (inyecciones) y para reducir la fiebre. El acetaminofeno tambi? se puede usar para aliviar el dolor de la osteoartritis (artritis causada por la ruptura del revestimiento de las articulaciones). El acetaminofeno pertenece a herrera clase de medicamentos llamados analg?icos y antipir?icos (reductores de la fiebre). Ortiz acci? consiste en cambiar la manera en que el cuerpo responde al dolor. ?C?O se debe usar aliza medicamento? La presentaci? del acetaminofeno es en tabletas, tabletas masticables, c?sulas, suspensi? o soluci? (l?uido), tabletas de liberaci? prolongada (de acci? prolongada) y tabletas de desintegraci? oral (tabletas que se disuelven r?idamente en la boca), para wendy por v? oral, con o sin alimentos. El acetaminofeno est?disponible sin receta m?ica, parish ortiz m?ico puede recetarlo para tratar ciertas afecciones. Siga atentamente las instrucciones que se encuentran en la etiqueta del paquete o en la receta m?ica, y pida a ortiz m?ico o farmac?ronn que le explique cualquier parte que no comprenda. Si le da acetaminofeno a ortiz hijo, tahir atentamente la etiqueta del empaque para asegurarse de que es el producto adecuado para la edad del ni?. No d?a los ni?s productos de acetaminofeno que est? indicados para adultos. Algunos productos para adultos y ni?s mayores pueden contener demasiado acetaminofeno para un ni? avani?. Consulte la etiqueta del empaque para saber qu?cantidad de medicaci? necesita el ni?. Si sabe cu?to pesa ortiz hijo, marcy la dosis que corresponde a kamaljit peso en la tabla. Si no conoce el peso de ortiz hijo, marcy la dosis que corresponda a ortiz edad. Preg?ntele al pediatra de ortiz hijo si tiene dudas sobre cu?to medicamento debe darle. El acetaminofeno se combina con otros medicamentos para tratar los s?eleni de la tos y el resfriado. Preg?ntele a ortiz m?ico o a ortiz farmac?ronn cu? es el producto m? indicado para corrine s?eleni. Tahir detenidamente las etiquetas de los medicamentos de venta sin receta contra la tos y el resfriado antes de usar dos o m? productos al mismo tiempo. Estos productos pueden contener los mismos ingredientes activos, de modo que tomarlos juntos podr? causarle herrera sobredosis. [place] es particularmente importante cuando le da medicamentos contra la tos y el resfriado a un ni?. Trague las tabletas de liberaci? prolongada enteras; no los parta, mastique, triture ni disuelva. Coloque la tableta de desintegraci? oral ('[place]elta[place]') en la boca y deje que se disuelva, o mast?uela antes de tragar. Agite pedro la suspensi? antes de cada uso para mezclar el medicamento de forma uniforme. Use siempre la taza medidora o la jeringa que el fabricante proporciona con el medicamento para medir cada dosis de la soluci? o suspensi?. No cambie los dispositivos de dosificaci? entre diferentes productos; use siempre el dispositivo que viene en el empaque del producto. Deje de wendy acetaminofeno y llame a ortiz m?ico si corrine s?eleni empeoran, presenta s?eleni nuevos o inesperados, mercy enrojecimiento o hinchaz?, si el dolor dura m? de 10 d?s o la fiebre empeora o dura m? de 3 d?s. Tambi? deje de darle acetaminofeno a ortiz hijo y llame a ortiz m?ico si presenta nuevos s?eleni, mercy enrojecimiento o hinchaz?, o si el dolor de ortiz hijo dura m? de 5 d?s, o si la fiebre empeora o dura m? de 3 d?s. No le d?acetaminofeno a un ni? que tiene dolor de garganta eren o que no desaparece, o que ocurre junto con fiebre, dolor de violeta, sarpullido, n?seas o v?itos. Llame de inmediato al pediatra, ya que esos s?eleni pueden ser se?les de herrera afecci? m? grave. ?Qu?OTRO USO se le da a aliza medicamento? El acetaminofeno tambi? se puede usar en combinaci? con aspirina y cafe?a para aliviar el dolor asociado con la migra?. A veces se receta aliza medicamento para otros usos; p?may m? informaci? a ortiz m?ico o a ortiz farmac?ronn. ?Cu?es son las PRECAUCIONES ESPECIALES que matteo seguir? Antes de wendy acetaminofeno, ? informe a ortiz m?ico y farmac?ronn si es al?gico al acetaminofeno, a cualquier otro medicamento o a alguno de los ingredientes del producto. Pregunte a ortzi farmac?ronn o consulte la etiqueta del empaque para obtener herrera lista de los ingredientes. ? informe a ortiz m?ico y farmac?ronn qu?medicamentos con y sin receta m?ica, vitaminas, suplementos nutricionales y productos a base de hierbas rogerio o planea wendy mientras usa acetaminofeno. Es posible que ortiz m?ico deba cambiar la dosis de corrine medicamentos o monitorearlo cuidadosamente para saber si experimenta efectos secundarios. ? Los siguientes productos de venta arminda pueden interactuar con el acetaminofeno: medicamentos para el dolor, la tos, la fiebre y los resfriados. Aseg?rese de informar a ortiz m?ico y farmac?ronn que est?tomando estos medicamentos antes de empezar a wendy el acetaminofeno. No empiece a wendy ninguno de estos medicamentos mientras est?en tratamiento con acetaminofeno sin consultarlo con ortiz m?ico ? informe a ortiz m?ico si alguna vez floyd desarrollado un sarpullido despu? de wendy acetaminofeno. ? informe a ortiz m?ico si est?embarazada, planea quedar embarazada o est? amamantando. Llame a ortiz m?ico si queda embarazada mientras rogerio acetaminofeno. ? si rogerio armen o m? bebidas alcoh?icas al d?, no tome acetaminofeno. Consulte a ortiz m?ico o a ortiz farmac?ronn sobre el uso seguro de bebidas alcoh?icas mientras rogerio acetaminofeno. ? debe saber que los productos combinados de acetaminofeno para la tos y los resfriados que contienen descongestionantes nasales, antihistam?icos, supresores de la tos y expectorantes no deben usarse en ni?s menores de 2 a?s. El uso de estos medicamentos en ni?s avani?s puede causar efectos graves y peligrosos para la pat, o la muerte. En los ni?s de 2 a 11 a?s, los productos combinados para la tos y el resfriado deben usarse cuidadosamente y solo de acuerdo con las instrucciones de la etiqueta. ? si tiene fenilcetonuria (PKU [en ingl?]; herrera enfermedad hereditaria en la que se debe seguir herrera dieta especial para prevenir da?s en el cerebro que pueden causar discapacidad intelectual grave), debe saber que algunas marcas de tabletas masticables de acetaminofeno pueden estar endulzadas con aspartamo, herrera lexi de fenilalanina. ?Qu?DIETA ESPECIAL matteo seguir mientras juana aliza medicamento? A menos que ortiz m?ico le indique lo contrario, contin?e con ortiz dieta normal. ?Qu?tengo que hacer SI ME OLVIDO de wendy herrera dosis? Por lo general, aliza medicamento se usa seg?n sea necesario. Si ortiz m?ico le indic?wendy acetaminofeno con regularidad y olvida wendy herrera dosis, t?adina en cuanto se acuerde. Sin embargo, si se acerca la hora de ortiz pr?javier dosis, omita la dosis que olvid? y siga con ortiz horario normal de medicaci?. No duplique la dosis para compensar la que omiti? ?Cu?es son los EFECTOS SECUNDARIOS que podr? provocar aliza medicamento? o Algunos efectos secundarios pueden ser graves. Si experimenta algunos de los siguientes s?eleni, deje de wendy acetaminofeno y llame a ortiz m?ico inmediatamente o busque tratamiento m?ico de emergencia: o piel enrojecida, descamada o con ampollas o sarpullido o urticaria o picaz? o inflamaci? del mark, la garganta, la lengua, los labios, los ojos, las renny, los pies, los tobillos o las pantorrillas o ronquera o dificultad para respirar o tragar El acetaminofeno puede ocasionar otros efectos secundarios. Llame a ortiz m?ico si experimenta alg?n problema inusual mientras rogerio aliza medicamento. Si desarrolla un efecto secundario grave, usted o ortiz doctor puede enviar un informe al programa de divulgaci? de efectos adversos 'MedWatch' de la Administraci? de Alimentos y Medicamentos (FDA, por ortiz sigla en ingl?) en la p?darryl de Internet (https://www.fda.gov/Safety/MedWatch) o por tel?judith al . ?C?o matteo ALMACENAR o DISPONER de aliza medicamento? Mantenga aliza medicamento en ortiz empaque original, pedro cerrado y fuera del alcance de los ni?s. Gu?delo a temperatura ambiente y lejos del calor excesivo y la humedad (no en el ba?). Es importante que mantenga todos los medicamentos fuera de la vista y el alcance de los ni?s, debido a que muchos envases (tales mercy los pastilleros de uso semanal, y aquellos que contienen gotas oft?micas, cremas, parches e inhaladores) no son a prueba de ni?s avani?s, quienes pueden abrirlos f?ilmente. Con el fin de protegerlos de herrera intoxicaci?, siempre use tapaderas de seguridad e inmediatamente coloque los medicamentos en un lugar seguro, rod que se encuentre arriba y lejos de ortiz vista y alcance. https://www.Shopondaway.org/es/ Los medicamentos que ya no son necesarios se deben desechar de herrera manera apropiada para asegurarse de que las mascotas, los ni?s y otras personas no puedan consumirlos. Sin embargo, no debe desechar estos medicamentos por el inodoro. En ortiz lugar, la mejor manera de deshacerse de corrine medicamentos es a radha? de un programa de devoluci? de medicamentos. Hable con ortiz farmac?ronn o p?gase en contacto con ortiz departamento de basura/reciclaje local para conocer acerca de los programas de devoluci? de medicamentos de ortiz comunidad. Consulte el sitio web de la Administraci? de Medicamentos y Alimentos (FDA), (https://Compute.[employer]/xRXbPn) para obtener m? informaci? de c?o desechar de forma calvert los medicamentos, si no tiene acceso al programa de devoluci? de medicamentos. ?Qu?matteo hacer en leonard de herrera SOBREDOSIS? En leonard de sobredosis, llame a la l?ea de ayuda de control de envenenamiento al . La informaci? tambi? est?disponible en l?ea en https://www.poisonhelp.org/help. Si la v?j carlos se floyd derrumbado, floyd tenido herrera convulsi?, tiene dificultad para respirar, o no puede despertarse, llame inmediamente a los servicios de emergencia al 911. Si alguien rogerio m? de la dosis recomendada de acetaminofeno, busque ayuda m?ica de inmediato, incluso si la persona no tiene monet?n s?rogerio. Los s?eleni de herrera sobredosis pueden incluir los siguientes: o n?seas o v?itos o p?dida de apetito o sudoraci? o cansancio extremo o sangrado o moretones inusuales o dolor en la parte superior derecha del est?ago o ictericia en la piel o los ojos o s?eleni parecidos a los de la gripe ?Qu?OTRA INFORMACI? de importancia deber? saber? Antes de realizarse alguna prueba de laboratorio, informe al m?ico y al personal del laboratorio que est?tomando acetaminofeno. [place] a ortiz farmac?ronn cualquier pregunta que tenga sobre el acetaminofeno. Es importante que Ud. mantenga herrera lista escrita de todas las medicinas que Ud. est?tomando, incluyendo las que recibi?con receta m?ica y las que Ud. compr? sin receta, incluyendo vitaminas y suplementos de dieta. Ud. debe tener la lista cada vez que visita ortiz m?ico o cuando es admitido a un hospital. Tambi? es herrera informaci? importante en casos de emergencia. Aliza informe sobre medicamentos es solo para ortiz informaci?, y no se considera mercy un consejo para el paciente. Debido a la naturaleza de informaci? sobre drogas, por favor consulte ortiz medico o farmac?ronn sobre el uso cl?ico espec?ico. La Sociedad Americana de Farmac[employer]ionales SA., afirma que la informaci? proporcionada a continuaci? fue formulada con razonable est?irma de asistencia, y en conformidad con el eklutna profesional. La [employer]iedad Americana [employer]ac[employer]ionales, SA. no provee representaciones o garant?s, expresas o implicadas, incluyendo, parish no limitado a, cualquiera garant? de comercializaci? y/o apropiado para herrera funci? particular, con respecto a isacc informaci? y niega espec?icamente tales garant?s. Se avisa a los usuarios que las decisiones con respecto a terapia de drogas son decisiones m?icas complejas requiriendo decisiones independientes e informadas de un profesional de isatu y que la informaci? se da para prop?itos de informaci? solamente. La entera monograf? de herrera droga debe ser revisada considerando un comprensivo entendimiento de las acciones, usos, y efectos secundarios de la droga. La [employer]iedad Americana [employer], [employer]. no endosa o recomienda el uso de ninguna medicina. La informaci? no es un sustituto de asistencia m?ica. AHFS? Patient Medication Information?. ? Derechos reservados, 2023. Documento actualizado 15 2022, [place] [employer]-System Pharmacists? [address] [facility], [facility] [address] Todos los derechos reservados. La duplicaci? de aliza documento para ortiz uso comercial, deber?ser autorizada por ASHP. AHFS? Patient Medication Information?. ? Copyright, 2023 [facility]2024-10-27 13:34:26 Images from the original note were not included. [address] Despu? de un parto vaginal Despu? de tener un beb? es posible que ortiz cuerpo est?muy cansado. La recuperaci? puede llevar tiempo. Isacc vez necesite permanecer en el hospital de 1 a 4 d?s. En algunos casos, isacc vez pueda regresar a casa el mismo d?. Inmediatamente despu? del parto Le controlar? la temperatura y la presi? arterial hasta que se hayan estabilizado. Un enfermero u otro proveedor de atenci? m?ica la vigilar? mientras descansa. Puede tener natalia posparto. Son calambres provocados por la contracci? del ?tero. Se utilizan toallas sanitarias para absorber el flujo del endometrio (la mucosa que recubre el interior del ?tero). Se examinar?la toalla sanitaria para controlar que no est?sangrando demasiado. Tambi? se revisar?la firmeza del ?tero. Para esto, herrera enfermera le presionar? suavemente el est?ago. Si le administraron anestesia, la vigilar? con atenci? hasta que pueda sentir y lumber press operator los dedos de los pies. Si tiene dolor entre la vagina y el ano (dolor perineal), se puede aliviar con herrera compresa de hielo. Cuidados del reci? nacido Mientras permanezca en el hospital o en el centro de maternidad, aprender?c?o sostener y alimentar al beb? Tambi? le irma? instrucciones sobre el cuidado del beb? [place] incluye la higiene y la alimentaci?. Los preparativos para volver a casa Es posible que est?ansiosa de regresar a casa lo antes posible. Antes de que usted y ortiz beb?regresen a casa, un proveedor de atenci? m?ica los revisar? para asegurarse de que usted ya est?saludable para cuidarse y cuidar a ortiz beb? Usted estar?lista para regresar a casa cuando: ? Pueda caminar hasta el ba? y usarlo sin ayuda. ? Pueda comer alimentos s?idos y tragar pastillas (en leonard de ser necesario). ? No presente monet?n signo de infecci? ni otros problemas de isatu, incluida la fiebre. ? Tenga el dolor controlado. ? El sangrado vaginal no sea abundante. ? Pueda cuidar al beb?y est?emocionalmente estable. Antes de ir a casa, le irma? instrucciones por escrito para el cuidado despu? de un parto vaginal. Siga estas instrucciones atentamente. Si tiene alguna pregunta o inquietud, resu?valas ahora. Si le hicieron puntos Puede que haya necesitado puntos en la piel cerca de la vagina. Quiz? le hicieron puntos para cerrar herrera incisi? que se practic?para agrandar la abertura de la vagina (episiotom?). O quiz? se usaron para reparar un desgarro de la piel. De cualquier forma, los puntos deber?n disolverse en unas semanas. Hasta entonces, es importante que los mantenga limpios. Puede wendy medidas para aliviar el dolor leve, ayudar a la cicatrizaci? y reducir el riesgo de infecci?. Estos consejos pueden resultar ?tiles: ? Limpie con cuidado de adelante hacia atr? despu? de orinar o evacuar los intestinos. ? Despu? de limpiar, jimena? la zoe con agua tibia. O puede darse un ba? de asiento. [place] significa sentarse en la jonel con un poco de agua. Luego d? golpecitos suaves en la zoe para secarla o use un secador de shahla en modo de aire fr?. ? Siga las instrucciones espec?icas del equipo de atenci? m?ica sobre limpieza y uso de jabones o medicamentos en la zoe. ? Puede wendy herrera ducha, a menos que se le indique lo contrario. ? C?biese las toallas sanitarias por lo menos cada 2 a 4 horas. ? Aplique compresas fr?s o calientes en la zoe, seg?n le indiquen los proveedores de atenci? m?ica o el personal de enfermer?. Ponga herrera toalla marcie entre la compresa y la piel. ? Si?tese sobre un asiento firme para que los puntos no se tensen demasiado. Seguimiento posnatal Programe un examen de control posparto con el proveedor de atenci? m?ica para 6 semanas despu? del parto. En aliza examen, se revisar? el ?tero y la vagina. Comun?uese con el proveedor si ernesto que usted o ortiz beb?est? teniendo alg?n problema. Cu?do debe llamar al proveedor de atenci? m?ica Llame al proveedor de atenci? m?ica de inmediato ante cualquiera de los siguientes signos o s?eleni: ? Fiebre de 100.4 ? F ( 38.0 ?C) o superior, o seg?n le indique el proveedor ? Sangrado que necesita herrera toalla sanitaria cada herrera hora, o co?ulos de jesusita grandes. La hemorragia posparto es un sangrado m? abundante de lo normal despu? del nacimiento de un beb? Suele suceder despu? de la expulsi? de la placenta. Parish tambi? puede ocurrir m? tarde. ? Dolor en la vagina que empeora y no se consuelo con los medicamentos ? Hinchaz?, flujo o aumento de dolor del desgarro o de la episiotom? vaginal ? Ardor, dolor, estr?s huntley o zonas con protuberancias en las mamas que pueden presentarse con s?eleni mercy los de la gripe ? Grietas, ampollas o jesusita en los pezones ? Ardor o dolor al orinar ? N?seas o v?itos ? Mareos o desmayos ? Sensaci? de martha tristeza o ansiedad, o de que no quiere estar con ortiz beb? Dolor abdominal que no se consuelo con los medicamentos ? Flujo vaginal con olor desagradable ? Falta de evacuaci? por 5 d?s ? Dolor al orinar o imposibilidad de retener la orina ? Enrojecimiento, calor o dolor en la parte inferior de la pierna ? Dolor de pecho Last Reviewed Date: 2022 00:00:00 ? 1308-5204 [employer]. Todos los derechos reservados. Esta informaci? no pretende sustituir la atenci? m?ica profesional. S?o ortiz m?ico puede diagnosticar y tratar un problema de isatu. [id number]31 Images from the original note were not included. 11 Maternal Discharge Education The following are general suggestions on how to care for yourself at home. Your doctor may have additional instructions for you. You many call your physician/clinic for questions or concerns. ACTIVITY ? Rest is important, rest during the day when your baby sleeps. Limit visitors. Ask family members and/or friends to help you as needed. ? Exercise - Walking is the best exercise for you. Strenuous activity should be avoided until after your six weeks checkup. Overexertion may cause bleeding. ? Avoid lifting anything heavier than your baby for the first two weeks or as directed by your physician. Stair climbing should be limited. Check with your physician for specific instructions. ? Driving a car should be delayed until approved by your physician. Short trips as a passenger may be permitted during the first two weeks or as instructed by your physician. ? Restrict retort fireman to light tasks. Enlist the aid of family and/or friends for housekeeping duties like vacuuming, sweeping and laundry. ? Returning to work will be discussed at your post-delivery checkup. NUTRITION ? Eat a healthy, well-balanced diet, including fresh fruits and vegetables every day. Drink to thirst or a minimum of 6 to 8 glasses of fluids each day. ? Eat a healthy, well-balanced diet, including fresh fruits and vegetables every day. Drink to thirst or a minimum of 6 to 8 glasses of fluids each day. ? Continue taking your vitamins as directed by your physician. ? Consult your physician prior to taking any other abcd-mwp-mymtihg or prescription medications. HYGIENE ? Continue stef care with warm water after going to the bathroom. Change your peripads with each trip to the bathroom. ? Sitz baths may be taken 3 to 4 times daily if stitches or hemorrhoids are painful. The stitches will absorb in 10 to 12 days and do not need to be removed. ? Do not douche or use tampons for six weeks after delivery. ? Kegal exercises will help to promote healing and improve muscle tone. These exercises are done by squeezing the vaginal muscles together - as if you are trying to stop the flow of urine. ? Avoid sexual activity until after your post-delivery checkup. You can become before the return of your normal period. ? Shower daily; avoid tub bathing. ? If your baby, wash your breasts once daily with your shower. ? For delivery, carefully cleanse your incision with soap and water during the shower, pat dry gently. If clips or kaya are used, they will be removed before you go home or at your first doctor's office visit. ELIMINATION ? Avoid constipation. You may accomplish this by maintaining adequate fluid intake and by increasing fiber in your diet. ? Consult your physician before using any nmzb-gtw-ibzkvqe stool softeners or laxatives. BREAST CARE ? Nipple tenderness is common during the first week of ; purified lanolin cream may be applied after nursing for nipple tenderness. If your nipples are cracked, blistered, bruised or bleeding contact your healthcare provider or counselor/java developer consultant. ? Fullness is normal; however, if the breasts become painful or hard, you may be helped by frequent nursing/pumping, warm showers or heat applied to the breast before nursing and ice packs after . Consult your doctor or counselor if pain and firmness persist. Bottle-feeding ? Wear a good supportive bra. ? Avoid stimulating the breasts. ? Ice packs may be used to relieve swelling. ? Discuss additional measures with your healthcare provider. EMOTIONS: ? Normal feelings after delivery may include yazan, excitement, fatigue, worry and/or nervousness. ? Baby blues are common and include mood swings, sadness, crying, irritability, frustration and sensitivity. Support from family and friends may help and these feelings should go away in two weeks. If these feelings do not go away or get worse, call your healthcare provider. You could be experiencing depression. CALL YOUR DOCTOR/CLINIC: If you should have any of the following: ? Fever - 100.4 orally or greater. ? Burning on urination or inability to urinate. ? Excessive bleeding - more than a heavy period. ? Swelling, redness and/or tenderness in one or more areas of the breast or legs. ? Foul smelling vaginal drainage. ? Redness, swelling and/or drainage from your abdominal incision or episiotomy stitches. ? Excessive pain. ? Headache, blurry vision, epigastric pain, or swelling of hands or feet. Call your doctor of an appointment for your post-delivery checkup. ADDITIONAL INSTRUCTIONS: is not a reliable method of control. Discuss your control options with your healthcare provider. Call [phone] for [facility] programs. [id number] 13:17:16 Redone with a language line- Daniel [id number] [facility]46[facility]24 The patient is Moderately Stable - Low risk of patient condition declining or worsening The patient's goals for the shift include Rest and pain control The clinical goals for the shift include Pain control and bonding T [facility] MedicineFormerly [facility] [id number] 08:53:11 Received patient to unit at this time from L&D. T [facility] MedicineFormerly [facility] HospitalAfcptjp1750-52-27 23:20:00 Delivery QBL - 108 [facility] [id number] 00:00:00 Juan Ha [facility]2024-10-17 13:34:11 Images from the original note were not included. Patient notified of results with the help of a educational interpreter. She verbalized understanding of results/recommendations via teach back. She states her OB is Dr. Augusto Moreno with [facility] Records faxed to [facility]. No further questions or concerns at this time. Kacie Manzano MD P Cardiology Nurse Echo with in acceptable limits. Preserved LVEF. Mild aortic regurgitation noted. No new changes compared to the previous echocardiogram dated May 2021. Follow-up in June 2024 after the completion of the . Last office note updated. Please fax to the OB team. Contact details available in my last office note. T [facility]al [facility] [id number] 10:30:53 Medical records request received via fax from Dr Paresh Hoang. Most recent clinical notes/EKG/ECHO results faxed to clinic. Fax confirmation scanned into chart. T Kelley Rodriguez [facility] [id number] 13:00:00 Echo with in acceptable limits. Preserved LVEF. Mild aortic regurgitation noted. No new changes compared to the previous echocardiogram dated May 2021. Follow-up in June 2024 after the completion of the . Last office note updated. Please fax to the OB team. Contact details available in my last office note. IM-CARDIOVASCULAR DISEASE STAFFCleveland Clinic Medina HospitalHcnjvi6246-75-27 00:00:00 Juan Ha [facility]2024-10-05 18:31:54 Patient discharged to home. Patient given printed and verbal discharge instructions regarding diagnosis. Instructed to follow up with PCP. Patient verbalized understanding of instructions. Patient awake, alert, oriented, respirations even and unlabored, skin warm and dry, color appropriate for race. No adverse reaction to meds given in ER noted upon discharge. PIV removed. Discussed medications. Advised to seek medical attention for new/prolonged/worsening of symptoms, patient ambulated from unit with steady gait in no apparent distress. T Chicho Jimenez [facility] HospitalBvykte7719-86-34 15:06:23 Patient states: "I called the clinic because I'm having a headache and high blood sugar." Reports blood sugar is 200. Reports being 34 weeks[address] OB: 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 History of Present Illness: Very pleasant lady presents for blood sugar at home being 200. Pt has known gestational diabetes, currently on Metformin. Reports cough, mild FLOYD, sore throat. Denies fever, abd pain, vaginal discharge. History provided by: Patient Past Medical History/Immunizations: Past Medical History: Diagnosis Date Anemia resolved Breast cyst 02/05/2022 Chlamydia 2004 Chlamydia 2012 Chlamydia 2014 Cyst (solitary) of breast, right removal Gastritis Hyperthyroidism 11/05/2019 Thyroid disease 09/2019 hyperthyroid, on medication Unspecified essential hypertension 01/02/2013 on medication Tetanus received in last 5 years: Unknown Childhood immunizations: Up-to-date Allergies: No Known Allergies Past Social History: Tobacco Use Never smoked or used smokeless tobacco. Alcohol Use No. Drug Use No. Sexual Activity Sexually active; Partners: Male; Control/Protection: I.U.D.. Comments: last sexual intercourse 02/22/2021 Past Surgical History: No past surgical history on file. Review of Systems: Review of Systems Constitutional: Negative for activity change, appetite change, chills, diaphoresis, fatigue and fever. HENT: Positive for congestion and sore throat. Negative for ear discharge, ear pain, facial swelling, hearing loss, tinnitus, trouble swallowing and voice change. Eyes: Negative for photophobia, pain, discharge, redness, itching and visual disturbance. Respiratory: Positive for cough. Negative for apnea, choking, chest tightness, shortness of breath and stridor. Breasts: Negative for discharge. Cardiovascular: Negative for chest pain, palpitations and leg swelling. Gastrointestinal: Negative for abdominal distention, abdominal pain, blood in stool, diarrhea, nausea and vomiting. Genitourinary: Negative for dysuria, frequency, hematuria, flank pain, enuresis and difficulty urinating. Musculoskeletal: Negative for arthralgias, back pain, gait problem, joint swelling, myalgias, neck pain and neck stiffness. Skin: Negative for color change, pallor, rash and wound. Neurological: Positive for headaches. Negative for dizziness, syncope, facial asymmetry, speech difficulty, weakness and light-headedness. Psychiatric/Behavioral: Negative for agitation, confusion, hallucinations and self-injury. The patient is not nervous/anxious. Hematological: Negative for adenopathy, cold intolerance and heat intolerance. Does not bruise/bleed easily. Endocrine: Negative for cold intolerance, heat intolerance, polydipsia and polyphagia. Physical Exam: ED Triage Vitals [04/11/24 1509] Weight 80.7 kg (178 lb) Actual or estimated Estimated by patient/family report Height 1.651 m (5' 5") BP (!) 139/91 Pulse 96 Resp 16 Temp 37.2 ?C (99 ?F) Temp source Oral SpO2 100 % Measured on Room air Physical Exam Constitutional: General: She is not in acute distress. Appearance: She is well-developed. She is not ill-appearing, toxic-appearing or diaphoretic. HENT: Head: Normocephalic and atraumatic. Right Ear: External ear normal. Left Ear: External ear normal. Mouth/Throat: Mouth: Mucous membranes are moist. Pharynx: Oropharynx is clear. Eyes: General: No scleral icterus. Right eye: No discharge. Left eye: No discharge. Extraocular Movements: Extraocular movements intact. Conjunctiva/sclera: Conjunctivae normal. Neck: Trachea: No tracheal deviation. Cardiovascular: Rate and Rhythm: Normal rate and regular rhythm. Heart sounds: Normal heart sounds. Pulmonary: Effort: Pulmonary effort is normal. No respiratory distress. Breath sounds: Normal breath sounds. No stridor. No wheezing or rales. Abdominal: General: There is distension (appropriately gravid). Palpations: Abdomen is soft. Tenderness: There is no abdominal tenderness. There is no guarding. Musculoskeletal: General: No tenderness or deformity. Normal range of motion. Cervical back: Normal range of motion and neck supple. Right lower leg: No edema. Left lower leg: No edema. Lymphadenopathy: Cervical: No cervical adenopathy. Skin: General: Skin is warm. Coloration: Skin is not pale. Findings: No erythema or rash. Neurological: General: No focal deficit present. Mental Status: She is alert and oriented to person, place, and time. Motor: No abnormal muscle tone. Psychiatric: Behavior: Behavior normal. Thought Content: Thought content normal. Judgment: Judgment normal. Radiology: No orders to display Lab Results: Lab Results CBC WITH DIFF - Abnormal Result Value Ref Range WBC 12.91 (*) 4.30 - 11.10 10*3/?L RBC 3.94 3.93 - 5.25 10*6/?L HGB 13.4 11.6 - 15.0 g/dL HCT 39.6 35.7 - 45.2 % MCV 100.5 (*) 80.6 - 95.5 fL MCH 34.0 (*) 25.9 - 32.8 pg MCHC 33.8 31.6 - 35.1 g/dL RDW-SD 46.8 39.0 - 49.9 fL RDW-CV 12.6 12.0 - 15.5 % PLT 218 166 - 358 10*3/?L MPV 11.6 9.5 - 12.9 fL NRBC/100 WBC 0.0 0.0 - 10.0 /100 WBCs NRBC x103<0.01 10*3/?L GRAN MAT (NEUT) % 71.7 % IMM GRAN % 1.30 % LYMPH % 18.0 % MONO % 8.3 % EOS % 0.5 % BASO % 0.2 % GRAN MAT x103(ANC) 9.26 (*) 1.88 - 7.09 10*3/uL IMM GRAN x1030.17 (*) 0.00 - 0.06 10*3/uL LYMPH x1032.32 1.32 - 3.29 10*3/uL MONO x1031.07 (*) 0.33 - 0.92 10*3/uL EOS x1030.06 0.03 - 0.39 10*3/uL BASO x1030.03 0.01 - 0.07 10*3/uL COMP. METABOLIC PANEL (36339) - Abnormal NA 135 135 - 145 mmol/L K 3.1 (*) 3.5 - 5.0 mmol/L CL 113 (*) 98 - 108 mmol/L CO2 TOTAL 15 (*) 23 - 31 mmol/L AGAP 7 2 - 16 BUN 15 7 - 23 mg/dL GLUCOSE 83 70 - 110 mg/dL CREATININE 0.84 0.50 - 1.04 mg/dL TOTAL BILI 0.3 0.1 - 1.1 mg/dL CALCIUM 7.2 (*) 8.6 - 10.6 mg/dL T PROTEIN 5.8 (*) 6.3 - 8.2 g/dL ALBUMIN 2.9 (*) 3.5 - 5.0 g/dL ALK PHOS 128 (*) 34 - 122 U/L ALTv 14 5 - 35 U/L AST(SGOT) 18 13 - 40 U/L eGFR 88.6 mL/min/1.73m2 URINALYSIS - Abnormal APPEARANCE Slightly Cloudy (*) Clear COLOR Straw (*) Yellow PH 6.0 4.8 - 8.0 SP GRAVITY 1.005 1.003 - 1.030 GLU U QUAL Normal Normal BLOOD Negative Negative KETONES Negative Negative PROTEIN 100 mg/dL (*) Negative UROBILIN Normal Normal BILIRUBIN Negative Negative NITRITE Negative Negative LEUK ЮЛИЯ Negative Negative RBC/HPF 0 0 - 3 HPF WBC/HPF 2 0 - 5 HPF BACTERIA Many (*) Negative MUCOUS Negative Negative LPF SQ EPITH 5 HPF POCT GLUCOSE (AUTOMATED) - Normal POCT GLU 110 70 - 110 mg/dL INFLUENZA A/B RSV COVID NAAT - Normal Influenza A NAAT Negative Negative Influenza B NAAT Negative Negative RSV by PCR Negative Negative SARS-CoV-2 NAAT Negative Negative RAPID STREP SCREEN FOR GROUP A - Normal Molecular Strep Negative Negative URINE CULTURE THROAT CULTURE EKG: If EKG completed, see Procedure Note. Orders and Treatments: Orders Placed This Encounter Procedures POCT GLUCOSE (AUTOMATED) Cbc with Diff Comp. Metabolic Panel (41684) Urinalysis Influenza A B RSV COVID NAAT Rapid Strep Screen For Group A Urine Culture Throat Culture Lab Only COVID Interpretation Orders Placed This Encounter Medications acetaminophen (TYLENOL) tablet 650 mg DISCONTD: NaCl 0.9% (NS) bolus infusion 500 mL KCL (KLOR-CON M20) tablet 40 mEq NaCl 0.9% (NS) bolus infusion 1,000 mL potassium chloride in water 10 mEq/100 mL RTU 10 mEq First Provider Eval: ED Events Date/Time Event User Comments 04/11/24 1503 Medical Screening Begins CRISTOFER LYNCH MD P -- 04/11/24 1503 First Provider Evaluation CRISTOFER LYNCH MD -- ED COURSE Diagnosis/Impression as of 04/11/24 1800 Hypertension, unspecified type Hyperglycemia Nonintractable headache, unspecified chronicity pattern, unspecified headache type Procedures: Procedures MDM: Medical Decision Making DDx incl gestational diabetes, dehydration, Flu, Covid, UTI, et al Pt FLOYD resolved and gentle hydration given; screened for infection. Pt asymptomatic and motivated for d/c. Has appointment in 4 days. Amount and/or Complexity of Data Reviewed Labs: ordered. Discussion of management or test interpretation with external provider(s): D/w Dr. James who reviewed the labs and offered to put her on monitor (pt declines this); otherwise outpt f/u is appropriate Risk OTC drugs. Prescription drug management. Flowsheet Documentation: Disposition/Condition: ED Disposition ED Disposition Disch - Home Condition Stable Comment -- Discharge Medications: Patient's Medications START taking these medications No medications on file CONTINUE taking these medications which have NOT CHANGED LISINOPRIL 10 MG TABLET Take 10 mg by mouth daily. ONDANSETRON 4 MG TABLET TAKE 1 TABLET BY MOUTH EVERY 12 HOURS NEEDED PANTOPRAZOLE 40 MG EC TABLET Take 40 mg by mouth daily. START taking Modified Medications as Prescribed No medications on file STOP taking these medications No medications on file Follow-up: Electronically signed by: Cristofer Lynch MD 04/11/24 1800 [place] [id number] 00:00:00 [facility]2024-08-30 00:00:00 [facility]2024-08-01 00:00:00 [facility]2024-07-30 00:00:00 [place] [id number] 00:00:00 [facility]2024-05-09 00:00:00 [facility]2024-04-21 15:13:35 Patient discharge home. Follow up with obgyn soon. Take rx as prescribed. Verbalized understanding. Signed paper work. [place] [id number] 14:25:00 Headache is better. No pain at this time. [place] [id number] 12:33:44 Patient to ED for headache x 3days. She is last period was 07/22/2023. Has not seen obgyn. Waiting for medicaid. Found out she was 2 weeks ago. Gor[facility]
--- NOTE | 2025-04-03 16:19 | RAD REPORT ---
Procedure: Chest Single View HISTORY: Chest pain COMPARISON: 2023 FINDINGS: The lungs appear clear of acute infiltrate. No significant pleural effusion noted. The heart is normal size. IMPRESSION: No acute abnormality is displayed.
[2025-04-03 16:22] LABS: ALT/SGPT 36.0 U/L (13-56); AST/SGOT 24.0 U/L (15-37); Albumin 3.9 g/dL (3.4-5.0); Albumin/Globulin Ratio 0.9 (1.1-1.8); Alkaline Phosphatase 122.0 U/L (45-117); Anion Gap 10.5 mEq/L (5.0-15.0); BUN Blood Urea Nitrogen 19.0 mg/dL (7-18); Globulin 4.4 g/dL (2.3-3.5); Glucose Level 101.0 mg/dL (74-106); Lipase 80.0 U/L (13-75); Potassium 3.5 mEq/L (3.5-5.1); Troponin High Sensitivity 3.1 pg/mL (<58.9)
[2025-04-03 17:47] LABS: Sqamous Epithelial <5 /HPF (None Seen); Urine Culture Reflex Order REFLEXED; Urine Microscopic Reflex YN ORDER UMIC; Urine Yeast (Budding) Trace /HPF (None Seen)
--- NOTE | 2025-04-03 18:27 | RAD REPORT ---
EXAMINATION: CT ABDOMEN AND PELVIS WITH CONTRAST CLINICAL INDICATION: Abdominal pain TECHNIQUE: CT abdomen and pelvis was performed, after the administration of 100 cc Isovue-300.. Sagit isacc and coronal reconstructions were obtained. One or more of the following dose reduction techniques were used: Automated exposure control, adjustment of the mA and kV according to patient si ze, and iterative reconstruction. Unless otherwise specified, incidental findings do not require dedicated imaging follow-up. [id number]. Oral contrast was not given which limits evaluation of bowel and appendix. COMPARISON: .2022 FINDINGS: Liver, spleen, pancreas, adrenals and kidneys appear unremarkable No evidence of diverticulitis. Small to moderate umbilical hernia containing fat Rectum is mildly distended with stool. Retroverted uterus. No adnexal mass : IMPRESSION: Rectum is mildly distended with stool
--- NOTE | 2025-04-03 19:17 | EDPHYS ---
Physician Documentation [facility] Name: Lisbet Bo Age: 44 yrs Sex: Female : 1980 Arrival Date: 04/03/2025 Time: 15:20 Bed 5 Private MD: ED Physician Erick Vance HPI: 04/03 15:47 This 44 yrs old Female presents to ER via Ambulatory with complaints of kb Nausea/Vomiting, Shoulder Pain. 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 states the chest pain has resolved, but pt is still nauseated. 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 - Infectious Disease History:: Denies. - Social history:: Smoking status: Patient denies any tobacco usage or history of. ROS: 15:46 Constitutional: As per HPI kb Exam: 15:43 Constitutional: This is a well developed, well nourished patient who is awake, alert, kb and in no acute distress. Head/Face: Normocephalic, atraumatic. ENT: Moist Mucous membranes Cardiovascular: Regular rate Respiratory: Respirations even and unlabored. No increased work of breathing. Talking in full sentences Abdomen/GI: Soft, non-tender. No distention Skin: Warm, dry with normal turgor. Normal color. MS/ Extremity: Pulses equal, no cyanosis. Neurovascular intact. Full, normal range of motion. Neuro: Awake and alert, GCS 15, oriented to person, place, time, and situation. 15:43 ECG was reviewed by the Attending Physician. Vital Signs: 15:28 BP 140 / 102; Pulse 123; Resp 17; Temp 98.4; Pulse Ox 100% on R/A; Weight 68.49 kg; dd2 Height 5 ft. 5 in. ; Pain 0/10; 15:56 BP 139 / 75; Pulse 106; Resp 16; Pulse Ox 99% ; cm10 17:30 BP 142 / 80; Pulse 99; Resp 17; Pulse Ox 100% on R/A; cm10 18:38 BP 137 / 81; Pulse 102; Resp 17; Pulse Ox 99% on R/A; cm10 19:30 BP 124 / 71; Pulse 99; Resp 17; Temp 98.4; Pulse Ox 100% ; Pain 0/10; bm8 15:28 Body Mass Index 25.13 (68.49 kg, 165.1 cm) dd2 15:28 Pain Scale: Adult dd2 19:30 Pain Scale: Adult bm8 [place] Coma Score: 19:30 Eye Response: spontaneous(4). Motor Response: obeys commands(6). Verbal Response: bm8 oriented(5). Total: 15. 19:30 Eye Response: spontaneous(4). Motor Response: obeys commands(6). Verbal Response: bm8 oriented(5). Total: 15. MDM: 15:24 Medical Screening Exam initiated kb 15:47 ED course: No abd tenderness upon exam, pt palpation of LUQ caused pt to vomit kb immediately. 19:15 Data reviewed: vital signs, nurses notes. kb 19:15 Differential diagnosis: Nonspecific abd pain, gastritis, viral gastroenteritis, kb pancreatitis, arrhythmia, acute mi. Consideration of Admission/Observation Escalation of care including admission/observation considered. admission considered but heart score 2. Counseling: I had a detailed discussion with the patient and/or guardian regarding the historical points, exam findings, and any diagnostic results supporting the discharge/admit diagnosis, lab results, radiology results, the need for outpatient follow up, a family practitioner, to return to the emergency department if symptoms worsen or persist or if there are any questions or concerns that arise at home. 04/03 15:28 Order name: CBC with Diff; Complete Time: 16:08 kb 04/03 15:28 Order name: CMP; Complete Time: 16:27 kb 04/03 15:28 Order name: Lipase; Complete Time: 16:27 kb 04/03 15:28 Order name: Troponin HS; Complete Time: 16:27 kb 04/03 17:05 Order name: Test, Urine; Complete Time: 17:55 kb 04/03 17:22 Order name: UA Rfx Butch Cult if indicated; Complete Time: 17:50 kb 04/03 17:50 Order name: Troponin High Sensitivity; Complete Time: 19:15 kb 04/03 17:53 Order name: Urine Culture EDMS 04/03 15:28 Order name: XRAY Chest (1 view); Complete Time: 16:27 kb 04/03 16:43 Order name: CT Abd/Pelvis - IV Contrast Only; Complete Time: 18:29 kb 04/03 15:28 Order name: EKG; Complete Time: 15:28 kb 04/03 15:28 Order name: IV Saline Lock; Complete Time: 15:55 kb 04/03 15:28 Order name: Labs collected and sent; Complete Time: 15:55 kb 04/03 15:28 Order name: EKG - Nurse/Tech; Complete Time: 15:55 kb EC: Rate is 116 beats/min. Rhythm is regular. QRS [place] is Normal. CA interval is normal at kb 126 msec. QRS interval is normal at 84 msec. QT interval is normal at 475 msec. Administered Medications: 15:55 Drug: Famotidine IVP 20 mg IVP once; dilute with 10 mL 0.9% NaCl; give over 2 minutes cm10 Route: IVP; Site: right antecubital; 19:33 Follow up: Response: No adverse reaction bm8 15:55 Drug: Ondansetron IVP 4 mg IVP once; over 2 minutes Route: IVP; Site: right antecubital;cm10 19:33 Follow up: Response: No adverse reaction bm8 15:55 Drug: NS 0.9% IV 1000 ml IV at 1 bolus Per protocol; to be given as a bolus over 60 cm10 minutes Route: IV; Rate: 1 bolus; Site: right antecubital; 19:33 Follow up: Response: No adverse reaction; IV Status: Completed infusion bm8 Disposition Summary: 04/03/25 19:16 Discharge Ordered Notes: Location: Home kb Condition: Stable kb Diagnosis - Nausea with vomiting, unspecified kb Followup: kb - With: Emergency Department - When: As needed - Reason: Worsening of condition Followup: kb - With: Private Physician - When: 2 - 3 days - Reason: Recheck today's complaints, Continuance of care, Re-evaluation by your physician Discharge Instructions: - Discharge Summary Sheet kb - Nausea and Vomiting, Adult, [id number] kb - Nonspecific Chest Pain, Adult, [id number] kb Forms: - Medication Reconciliation Form kb - Antibiotic Education kb - Prescription Opioid Use kb - Patient Portal Instructions kb - Leadership Thank You Letter kb Prescriptions: - Zofran 4 mg Oral tablet - take 1 tablet ORAL route every 6 hours As needed; 12 tablet; Refills: 0, kb Product Selection Permitted Addendum: 04/08/2025 07:02 Co-signature as Attending Physician, Erick Vance MD I reviewed the patient's care r n provided by the Advanced Practice Provider and agree with the diagnosis and treatment plan. Signatures: Dispatcher [employer] EDDC Rebeca Gao, WILDLIFE BIOLOGIST-C WILDLIFE BIOLOGIST-Ckb Erick Vance MD MD rn Christie Jim RN RN cm10 RAND KHAN RN RN dd2 Ryan Sherman RN bm8 Corrections: (The following items were deleted from the chart) 04/03 15:47 15:43 Constitutional: This is a well developed, well nourished patient who is awake, kb alert, and in no acute distress. Head/Face: Normocephalic, atraumatic. kb
--- NOTE | 2025-04-03 19:17 | ER ---
Nurse's Notes [facility] Name: Lisbet Bo Age: 44 yrs Sex: Female : 1980 Arrival Date: 04/03/2025 Time: 15:20 Bed 5 Private MD: Diagnosis: Nausea with vomiting, unspecified Presentation: 04/03 15:28 Chief complaint: Patient states: she was driving 10 mins ago, had lt chest pain and dd2 n/v. pt reports pain is gone but continues to vomit and have dizziness. Coronavirus screen: At this time, the client does not indicate any symptoms associated with coronavirus-19. Ebola Screen: No symptoms or risks identified at this time. Initial Sepsis Screen: Does the patient meet any 2 criteria? No. Patient's initial sepsis screen is negative. Does the patient have a suspected source of infection? No. Patient's initial sepsis screen is negative. Risk Assessment: Do you want to hurt yourself or someone else? Patient reports no desire to harm self or others. Onset of symptoms was April 03, 2025. 15:28 Method Of Arrival: Ambulatory dd2 15:28 Acuity: RONAL 3 dd2 Triage Assessment: 15:29 General: Appears uncomfortable, Behavior is calm, cooperative, appropriate for age. dd2 Pain: Complains of pain in anterior aspect of left upper chest. 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 GI: Reports nausea, vomiting. 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 - Infectious Disease History:: Denies. - Social history:: Smoking status: Patient denies any tobacco usage or history of. Screenin:02 [facility] ED Fall Risk Assessment (Adult) History of falling in the last 3 months, cm10 including since admission No falls in past 3 months (0 pts) Confusion or Disorientation No (0 pts) Intoxicated or Sedated No (0 pts) Impaired Gait No (0 pts) Mobility Assist Device Used No (0 pt) Altered Elimination No (0 pt) Score/Fall Risk Level 0 - 2 = Low Risk Oriented to surroundings, Maintained a safe environment, Hourly rounding (assess needs \T\ fall precautionary measures) done. Abuse screen: Denies threats or abuse. Denies injuries from another. Nutritional screening: No deficits noted. Tuberculosis screening: No symptoms or risk factors identified. Assessment: 15:58 General: Appears in no apparent distress. comfortable, Behavior is calm, cooperative, cm10 appropriate for age. Pain: Complains of pain in anterior aspect of left upper chest. Neuro: No deficits noted. Level of Consciousness is awake, alert, obeys commands, Oriented to person, place, time, situation, Appropriate for age. Neuro: Reports dizziness. Respiratory: No deficits noted. Airway is patent Respiratory effort is even, unlabored, Respiratory pattern is regular, symmetrical. GI: Abdomen is flat, Reports nausea, vomiting. 17:34 Reassessment: Patient appears in no apparent distress at this time. Patient and/or cm10 family updated on plan of care and expected duration. Pain level reassessed. Patient is alert, oriented x 3, equal unlabored respirations, skin warm/dry/pink. 18:46 Reassessment: Patient appears in no apparent distress at this time. Patient and/or cm10 family updated on plan of care and expected duration. Pain level reassessed. Patient is alert, oriented x 3, equal unlabored respirations, skin warm/dry/pink. 19:30 General: Appears in no apparent distress. comfortable, Behavior is calm, cooperative, bm8 appropriate for age. Pain: Denies pain. Neuro: No deficits noted. Cardiovascular: No deficits noted. Respiratory: No deficits noted. GI: No deficits noted. No signs and/or symptoms were reported involving the gastrointestinal system. : No deficits noted. No signs and/or symptoms were reported regarding the genitourinary system. EENT: No deficits noted. No signs and/or symptoms were reported regarding the EENT system. Derm: No deficits noted. No signs and/or symptoms reported regarding the dermatologic system. Musculoskeletal: No deficits noted. No signs and/or symptoms reported regarding the musculoskeletal system. Denies. Vital Signs: 15:28 BP 140 / 102; Pulse 123; Resp 17; Temp 98.4; Pulse Ox 100% on R/A; Weight 68.49 kg; dd2 Height 5 ft. 5 in. ; Pain 0/10; 15:56 BP 139 / 75; Pulse 106; Resp 16; Pulse Ox 99% ; cm10 17:30 BP 142 / 80; Pulse 99; Resp 17; Pulse Ox 100% on R/A; cm10 18:38 BP 137 / 81; Pulse 102; Resp 17; Pulse Ox 99% on R/A; cm10 19:30 BP 124 / 71; Pulse 99; Resp 17; Temp 98.4; Pulse Ox 100% ; Pain 0/10; bm8 15:28 Body Mass Index 25.13 (68.49 kg, 165.1 cm) dd2 15:28 Pain Scale: Adult dd2 19:30 Pain Scale: Adult bm8 [place] Coma Score: 19:30 Eye Response: spontaneous(4). Motor Response: obeys commands(6). Verbal Response: bm8 oriented(5). Total: 15. 19:30 Eye Response: spontaneous(4). Motor Response: obeys commands(6). Verbal Response: bm8 oriented(5). Total: 15. ED Course: 15:23 Patient arrived in ED. ts1 15:24 Rebeca Gao FNP-C [facility] kb 15:24 Erick Vance MD is Attending Physician. kb 15:29 Triage completed. dd2 15:29 Arm band placed on left wrist. dd2 15:39 Christie Jim, RN is Primary Nurse. cm10 15:55 CBC with Diff Sent. cm10 15:55 CMP Sent. cm10 15:55 Lipase Sent. cm10 15:56 Initial lab(s) drawn, by me, sent to lab. EKG done, by ED staff, reviewed by Rebeca BOND. Inserted saline lock: 20 gauge in right antecubital area, using aseptic technique. Blood collected. Flushed with 10 mL NS. 16:02 Patient has correct armband on for positive identification. Bed in low position. Call cm10 light in reach. Side rails up X 1. Client placed on continuous cardiac and pulse oximetry monitoring. NIBP monitoring applied. lunchroom monitor on. 16:14 XRAY Chest (1 view) In Process Unspecified. EDMS 17:30 Radiology exam delayed due to test not completed at this time. sm9 18:11 CT Abd/Pelvis - IV Contrast Only In Process Unspecified. EDMS 19:30 Provided Education on: post er care. Door closed. Noise minimized. Warm blanket given. bm8 Pillow given. Verbal reassurance given. Head of bed elevated. 19:30 No provider procedures requiring assistance completed. IV discontinued, intact, bm8 bleeding controlled, No redness/swelling at site. Pressure dressing applied. Administered Medications: 15:55 Drug: Famotidine IVP 20 mg IVP once; dilute with 10 mL 0.9% NaCl; give over 2 minutes cm10 Route: IVP; Site: right antecubital; 19:33 Follow up: Response: No adverse reaction bm8 15:55 Drug: Ondansetron IVP 4 mg IVP once; over 2 minutes Route: IVP; Site: right antecubital;cm10 19:33 Follow up: Response: No adverse reaction bm8 15:55 Drug: NS 0.9% IV 1000 ml IV at 1 bolus Per protocol; to be given as a bolus over 60 cm10 minutes Route: IV; Rate: 1 bolus; Site: right antecubital; 19:33 Follow up: Response: No adverse reaction; IV Status: Completed infusion bm8 Medication: 19:30 VIS not applicable for this client. bm8 Outcome: 19:16 Discharge ordered by . kb 19:30 Discharged to home ambulatory, with family, bm8 19:30 Condition: good 19:30 Discharge instructions given to patient, family, Instructed on discharge instructions, follow up and referral plans. no drinking with medication, no driving heavy equipment, medication usage, safety practices, Demonstrated understanding of instructions, follow-up care, medications, 19:33 Prescriptions given X 1, bm8 19:46 Patient left the ED. ha1 Signatures: Dispatcher [employer] EDMS Rebeca Gao, HAND TOOL LAPPER-C HAND TOOL LAPPER-CkYessica Robertson, RN RN ha1 Denise Lancaster PAS PAS ts1 Christie Jim, RN RN cm10 Marci Newman 9 Ryan Sherman RN RN bm8 RAND KHAN RN RN dd2
[2025-04-03 19:58] VITALS: TEMP 98.4
[2025-04-03 20:05] VITALS: BP 124/71; O2SAT 100
== END 2025-04-03 19:46 | disposition home or self-care (01) ==
LOC: ER 15:20
DX: R11.2 Nausea with vomiting, unspecified (principal); E03.9 Hypothyroidism, unspecified; I10 Essential (primary) hypertension; E78.00 Pure hypercholesterolemia, unspecified; R07.9 Chest pain, unspecified; M25.519 Pain in unspecified shoulder
CPT/HCPCS: 36415; 71045; 74177; 80053; 81001; 81025; 83690; 84484; 85025; 87077; 87086; 87088; 87186; 93005; 96361; 96374; 96375; 99285; J2405; J7030; Q9967